=== PATIENT | male | born 1955 | race Caucasian/White ===

== ENCOUNTER 2017-08-17 12:33 | Emergency (ER) | payer OTHER, SELFPAY ==
[2017-08-17 12:40] VITALS: BP 146/76; PULSE 86; RESP 16; TEMP 37.4; O2SAT 98; BMI 28.0
--- NOTE | 2017-08-17 12:52 | ED.ABDPAIN ---
HPI - Abdominal Pain General Chief Complaint: Abdominal Pain Stated Complaint: CHRONIC PANCREATITIS Time Seen by Provider: 08/17/17 12:47 Source: patient and family Mode of arrival: ambulatory Limitations: no limitations History of Present Illness HPI narrative: 62M hx DM, gastroparesis, pancreatic enzyme dependent has abdominal pain, cramping, nausea, vomiting since 3 am. Has had these symptoms before, and are often assocaited with his mistiming/mismanagement of taking his pancreatic enzymes PO when eating. Patient admits to possibly having screwed up again. No fever, chills, SOB, urinary symptoms. Patient was unable to complete interview immediately due to urgent need to defecate. After patient returned, interview and exam completed. Related Data Home Medications Medication Instructions Recorded Confirmed clopidogrel 75 mg PO Q DAY #0 04/15/08 08/17/17 diclofenac sodium [Voltaren] 1 crys TOPICAL PRN PRN #0 03/14/17 08/17/17 cholecalciferol (vitamin D3) 3,000 unit PO TID 08/17/17 08/17/17 [Vitamin D3] insulin aspart U-100 [Novolog 5 unit SUB-Q DIRECTED 08/17/17 08/17/17 Flexpen U-100 Insulin] insulin glargine [Lantus Solostar 15 unit SUB-Q BID 08/17/17 08/17/17 U-100 Insulin] [id number]-ssendxek-nmtptew [Creon] 1 cap PO DIRECTED 08/17/17 08/17/17 whbliw-cawotwfz-jcwbsas [Creon] 1 cap PO DIRECTED 08/17/17 08/17/17 lisinopril 20 mg PO DAILY 08/17/17 08/17/17 metoprolol tartrate 50 mg PO BID 08/17/17 08/17/17 omeprazole 40 mg PO BID 08/17/17 08/17/17 oxycodone 5 mg PO PRN PRN 08/17/17 08/17/17 promethazine 25 mg PO Q6HP PRN 08/17/17 08/17/17 Previous Rx's Medication Instructions Recorded acetaminophen 0 mg PO Q4HP PRN #10 03/15/17 ondansetron [Zofran ODT] 4 mg SUBLINGUAL Q6HP PRN #10 odt 03/19/17 Allergies Allergy/AdvReac Type Severity Reaction Status Date / Time Iodine and Iodide Containing Allergy Unknown Verified 08/17/17 12:40 Produc [IODINE AND IODIDE CONTAINING PRODUC] Sulfa (Sulfonamide Allergy Unknown Verified 08/17/17 12:40 Antibiotics) [SULFA (SULFONAMIDE ANTIBIOTICS)] Review of Systems Constitutional Denies chills, Denies fever(s), Denies lethargy and Denies weakness ENT Ears, Nose, Mouth, and Throat: Denies change in voice, Denies neck pain and Denies sore throat Cardiovascular Denies chest pain, Denies irregular heart rhythm, Denies lightheadedness, Denies palpitations, Denies dyspnea, Denies dyspnea on exertion and Denies orthopnea Respiratory Denies cough, Denies dyspnea, Denies dyspnea on exertion and Denies wheezing Gastrointestinal Gastrointestinal: Reports abdominal pain, Reports tenesmus, Reports cramping, Reports nausea and Reports vomiting Genitourinary Denies hematuria, Denies flank pain, Denies urinary incontinence and Denies urinary urgency Musculoskeletal Denies neck pain Integumentary/Breasts Denies pruritus, Denies erythema, Denies rash and Denies wounds Neurologic Denies weakness Endocrine Denies palpitations Hematologic/Lymphatic Denies easy bruising Allergic/Immunologic Denies wheezing Exam Initial Vital Signs Initial Vital Signs: Vital Signs Temperature 99.4 F 08/17/17 12:40 Pulse Rate 86 08/17/17 12:40 Respiratory Rate 16 08/17/17 12:40 Blood Pressure 146/76 H 08/17/17 12:40 Pulse Oximetry 98 08/17/17 12:40 Const General: cooperative and well developed Nutritional Appearance: well nourished Orientation: alert, awake, oriented x3 and not confused Neck Neck: normal visual inspection, trachea midline, No lymphadenopathy, No midline deformity and No JVD Lymphatic: No lymphedema Resp Effort & Inspection: normal respiratory effort, able to speak in complete sentences, no respiratory distress and no use of accessory muscles Auscultation: clear to auscultation bilaterally, no rales, no rhonchi and no wheezes Cardio Rate: regular rate Rhythm: regular rhythm Heart Sounds: no click, no gallops, no murmurs and no rubs Pulses: normal peripheral pulses GI Inspection: distended Palpation: soft, No guarding, No pulsatile mass and tender (Generalized) Skin General: no rashes or lesions noted, No jaundice and No petechiae Neuro General: alert, oriented x3, gait normal and no focal motor deficits Speech: speech normal Extrem General: full ROM, no clubbing, cyanosis or edema, no pedal edema and no calf tenderness Course Orders Ordered: ED Orders 08/17/17 12:49 Complete Blood Count AUTO DIFF Stat Comprehensive Metabolic Panel Stat Lipase Stat Discontinued Medications Sodium Chloride (Normal Saline 0.9%) 1,000 mls @ 1,000 mls/hr IV BOLUS ONE Stop: 08/17/17 13:50 Last Admin: 08/17/17 13:01 Dose: 1,000 mls/hr Metoclopramide HCl (Reglan) 10 mg IV NOW ONE Stop: 08/17/17 12:52 Last Admin: 08/17/17 13:01 Dose: 10 mg Morphine Sulfate (Morphine) 4 mg IV NOW ONE Stop: 08/17/17 12:52 Last Admin: 08/17/17 13:01 Dose: 4 mg Vital Signs - 8 hr 08/17/17 12:40 Temperature 99.4 F Pulse Rate 86 Respiratory Rate 16 Blood Pressure 146/76 H Pulse Oximetry 98 MDM - Abdominal Pain Differential Diagnosis Differential diagnosis: Likely abdominal pain and pancreatitis Lab Data Result diagrams: 08/17/17 12:49 08/17/17 12:49 Lab Results 08/17/17 08/17/17 Range/Units 12:49 12:49 WBC 14.7 H (4.5-11.0) X10^3/uL RBC 5.28 (4.5-5.9) X10^6/uL Hgb 15.6 (13.5-17.5) g/dL Hct 46.2 (41-53) % MCV 87.5 (80-100) fL MCH 29.6 (26-34) PG MCHC 33.8 (30-36) % RDW 13.5 (11.6-14.8) % Plt Count 302 (150-400) X10^3/uL Neut % (Auto) 83.0 H (50-75) % Lymph % (Auto) 7.6 L (25-40) % [place] % (Auto) 8.1 (3-14) % Eos % (Auto) 0.8 L (2-4) % Baso % (Auto) 0.5 (0-2) % Neut # (Auto) 72102 H (4634-2156) /uL Sodium 144 (137-145) mmol/L Potassium 5.4 H (3.4-5.1) mmol/L Chloride 104.0 (98-107) mmol/L Carbon Dioxide 22.0 (22-32) mmol/L BUN 17.0 (9-20) mg/dL Creatinine 0.70 (0.66-1.25) mg/dL Estimated GFR > 60.0 (>60) mL/min BUN/Creatinine Ratio 24.3 H (6-22) Glucose 203 H (80-110) mg/dL Calcium 9.8 (8.4-10.2) mg/dL Total Bilirubin 0.8 (0.2-1.3) mg/dL AST 49 (17-59) IU/L ALT 36 (21-72) IU/L Alkaline Phosphatase 86 (38-126) U/L Total Protein 7.9 (6.3-8.2) g/dL Albumin 4.9 (3.5-5.0) g/dL Globulin 3.0 (1.7-4.1) g/dL Albumin/Globulin Ratio 1.6 (1.0-2.8) Lipase 76 (23-300) U/L MDM Narrative Medical decision making narrative: Negative for acute pancreatitis Patient feels much better after reglan and IV fluids. Patient has follow up with GI specialist within 2 weeks. Stable for discharge and outpatient follow up. Discharge Plan Departure Patient Disposition: Home, Self-Care Clinical Impression: Abdominal pain Instructions: DI for Abdominal Pain-Adult Activity Restrictions/Additional Instructions: Please resume your normal medications. Maintain adequate hydration. Please follow up with primary care provider. Prescriptions: No Action clopidogrel 75 mg Tablet 75 mg PO Q DAY Qty: 0 RF: 0 diclofenac sodium [Voltaren] 1 % gel 1 crys Topical PRN PRN (Reason: Analgesia) Qty: 0 RF: 0 acetaminophen 325 MG tablet PO Q4HP PRNQty: 10 RF: 0 ondansetron [Zofran ODT] 4 MG tablet,disintegrating 4 mg Sublingual Q6HP PRNQty: 10 RF: 0 lisinopril 20 mg Tablet 20 mg PO DAILY RF: 0 omeprazole 40 mg Capsule,Delayed Release(Dr/Ec) 40 mg PO BID RF: 0 metoprolol tartrate 50 mg Tablet 50 mg PO BID RF: 0 oxycodone 5 mg Tablet 5 mg PO PRN PRN (Reason: Pain, Severe) RF: 0 cholecalciferol (vitamin D3) [Vitamin D3] 1,000 unit Capsule 3,000 unit PO TID RF: 0 insulin aspart U-100 [Novolog Flexpen U-100 Insulin] 100 unit/mL Insulin Pen 5 unit Sub-Q DIRECTED RF: 0 insulin glargine [Lantus Solostar U-100 Insulin] 100 unit/mL (3 mL) Insulin Pen 15 unit SUB-Q BID RF: 0 jfazvu-brkiaypz-gpqcziu [Creon] 6,000-19,000 -30,000 unit Capsule,Delayed Release(Dr/Ec) 1 cap PO DIRECTED RF: 0 escqdl-xrgupsre-gjrnqqj [Creon] 36,000-114,000- 180,000 unit Capsule,Delayed Release(Dr/Ec) 1 cap PO DIRECTED RF: 0 promethazine 25 MG tablet 25 mg PO Q6HP PRN (Reason: Nausea) RF: 0 Referrals: Jacobo Ochoa MD [Primary Care Provider] -
[2017-08-17] MEDS: MORPHINE 4 MG/ML INJ IV (13:01)
[2017-08-17] MEDS: SODIUM CHLORIDE 0.9% 1,000 ML 1000 ML IV (13:01)
[2017-08-17] MEDS: METOCLOPRAMIDE 10 MG/2 ML INJ IV (13:01)
[2017-08-17 13:16] LABS: Add Manual Diff / Slide Review NO; Basophils Percent Auto 0.5 % (0-2); Eosinophils Percent Auto 0.8 % (2-4); Hematocrit 46.2 % (41-53); Hemoglobin 15.6 g/dL (13.5-17.5); Lymphocytes Percent Auto 7.6 % (25-40); Mean Corpuscular HGB Conc 33.8 % (30-36); Mean Corpuscular Hemoglobin 29.6 PG (26-34); Mean Corpuscular Volume 87.5 fL (80-100); Monocytes Percent Auto 8.1 % (3-14); Neutrophils Absolute Auto 12200 /uL (3000-5900); Platelet Count 302 X10^3/uL (150-400); Red Blood Cell Count 5.28 X10^6/uL (4.5-5.9); Red Cell Distribution Width 13.5 % (11.6-14.8); White Blood Cell Count 14.7 X10^3/uL (4.5-11.0)
[2017-08-17 13:21] LABS: Alanine Aminotransferase 36 IU/L (21-72); Albumin 4.9 g/dL (3.5-5.0); Albumin Globulin Ratio 1.6 (1.0-2.8); Alkaline Phosphatase 86 U/L (38-126); Aspartate Aminotransferase 49 IU/L (17-59); BUN Creatinine Ratio 24.3 (6-22); Bilirubin Total 0.8 mg/dL (0.2-1.3); Calcium 9.8 mg/dL (8.4-10.2); Estimated Glomerular Filt Rate > 60.0 mL/min (>60); Glucose 203 mg/dL (80-110); Lipase 76 U/L (23-300); Sodium 144 mmol/L (137-145); Total Protein 7.9 g/dL (6.3-8.2)
[2017-08-17 13:27] LABS: HEMOLYSIS 87 (0-50); Potassium 5.4 mmol/L (3.4-5.1)
[2017-08-17 14:22] VITALS: BP 119/65; PULSE 77; RESP 18; O2SAT 98
== END 2017-08-17 14:23 | disposition home or self-care (01) ==
LOC: ED 14:02
PROVIDERS: Emergency Provider Student in an Organized Health Care Education/Training Program; Family Provider Emergency Medicine Emergency Medical Services; PCP Emergency Medicine Emergency Medical Services
DX: R10.9 Unspecified abdominal pain (principal)
CPT/HCPCS: 36591; 80053; 83690; 85025; 96361; 96374; 96375; 99282; 99284; J2270; J2765

== ENCOUNTER 2017-09-25 12:15 | Emergency (ER) | payer OTHER, SELFPAY ==
[2017-09-25] VITALS (8 sets, daily range): BP systolic 99–164; BP diastolic 49–80; PULSE 67–95; RESP 8–24; TEMP 36.7; O2SAT 95–100
[2017-09-25] MEDS: ONDANSETRON 4 MG/2 ML INJ IV ×2 (12:51→13:21)
[2017-09-25 12:52] LABS: Add Manual Diff / Slide Review NO; Basophils Percent Auto 0.7 % (0-2); Eosinophils Percent Auto 1.8 % (2-4); Hematocrit 54.6 % (41-53); Hemoglobin 18.1 g/dL (13.5-17.5); Lymphocytes Percent Auto 13.6 % (25-40); Mean Corpuscular HGB Conc 33.2 % (30-36); Mean Corpuscular Hemoglobin 29.6 PG (26-34); Mean Corpuscular Volume 89.3 fL (80-100); Neutrophils Absolute Auto 11000 /uL (3000-5900); Neutrophils Percent Auto 76.9 % (50-75); Platelet Count 338 X10^3/uL (150-400); Red Blood Cell Count 6.11 X10^6/uL (4.5-5.9); Red Cell Distribution Width 13.3 % (11.6-14.8); White Blood Cell Count 14.3 X10^3/uL (4.5-11.0)
[2017-09-25 12:58] LABS: Alanine Aminotransferase 33 IU/L (21-72); Albumin 5.5 g/dL (3.5-5.0); Albumin Globulin Ratio 1.5 (1.0-2.8); Alkaline Phosphatase 118 U/L (38-126); Aspartate Aminotransferase 28 IU/L (17-59); BUN Creatinine Ratio 16.7 (6-22); Bilirubin Total 0.7 mg/dL (0.2-1.3); Blood Urea Nitrogen 15 mg/dL (9-20); Calcium 10.5 mg/dL (8.4-10.2); Carbon Dioxide 19 mmol/L (22-32); Chloride 106 mmol/L (98-107); Estimated Glomerular Filt Rate > 60.0 mL/min (>60); Globulin 3.6 g/dL (1.7-4.1); Glucose 144 mg/dL (80-110); HEMOLYSIS 22 (0-50); Lipase 443 U/L (23-300); Potassium 4.3 mmol/L (3.4-5.1); Sodium 143 mmol/L (137-145); Total Protein 9.1 g/dL (6.3-8.2)
[2017-09-25] MEDS: SODIUM CHLORIDE 0.9% 1,000 ML 1000 ML IV ×2 (13:19→14:48)
[2017-09-25] MEDS: HYDROMORPHONE 2 MG INJ 1 MG IV (13:20)
[2017-09-25] MEDS: methylPREDNISolone 125 MG/2 ML VIAL IV (13:21)
[2017-09-25] MEDS: diphenhydrAMINE 50 MG/ML VIAL 25 MG IV (13:21)
--- NOTE | 2017-09-25 13:22 | ED.ABDPAIN ---
HPI - Abdominal Pain General Chief Complaint: Abdominal Pain Stated Complaint: 'MY PANCREAS' Time Seen by Provider: 09/25/17 13:02 Source: patient Mode of arrival: ambulatory Limitations: no limitations History of Present Illness HPI narrative: Patient is a 62-year-old male who presents with abdominal pain. He has a history of chronic pancreatitis. He says this started last evening he has had multiple episodes of vomiting and diarrhea. He was seen here at the end of July for the same thing. He is supposed to take up pancreatic enzymes however he said last night he messed up the dosage her the number of pills and this is what happens every time he does this. He has not had any fever. Related Data Home Medications Medication Instructions Recorded Confirmed clopidogrel 75 mg PO Q DAY #0 04/15/08 09/25/17 diclofenac sodium [Voltaren] 1 crys TOPICAL PRN PRN #0 03/14/17 09/25/17 insulin aspart U-100 [Novolog 5 unit SUB-Q DIRECTED 08/17/17 09/25/17 Flexpen U-100 Insulin] insulin glargine [Lantus Solostar 15 unit SUB-Q BID 08/17/17 09/25/17 U-100 Insulin] [id number]-ipvlesge-lrczjho [Creon] 1 cap PO DIRECTED 08/17/17 09/25/17 rfmbof-mnfedbzd-kjwtzzb [Creon] 1 cap PO DIRECTED 08/17/17 09/25/17 lisinopril 20 mg PO DAILY 08/17/17 09/25/17 metoprolol tartrate 50 mg PO BID 08/17/17 09/25/17 omeprazole 40 mg PO BID 08/17/17 09/25/17 oxycodone 5 mg PO PRN PRN 08/17/17 09/25/17 promethazine 25 mg PO Q6HP PRN 08/17/17 09/25/17 acetaminophen 325 mg PO Q4HP PRN 09/25/17 09/25/17 cholecalciferol (vitamin D3) 1,000 unit PO TID 09/25/17 09/25/17 [Vitamin D3] Previous Rx's Medication Instructions Recorded ondansetron [Zofran ODT] 4 mg SUBLINGUAL Q6HP PRN #10 odt 03/19/17 promethazine [Phenergan] 25 mg ID Q6H PRN #10 each 09/25/17 Allergies Allergy/AdvReac Type Severity Reaction Status Date / Time Iodine and Iodide Containing Allergy Unknown Verified 08/17/17 12:40 Produc [IODINE AND IODIDE CONTAINING PRODUC] Sulfa (Sulfonamide Allergy Unknown Verified 08/17/17 12:40 Antibiotics) [SULFA (SULFONAMIDE ANTIBIOTICS)] Review of Systems Review of Systems GENERAL: Denies chills, fatigue, malaise, fever, sweats, travel HEENT: Denies sinus pain, ear pain, sore throat, difficulty swallowing, neck pain RESPIRATORY: Denies dyspnea, cough, wheezing, hemoptysis, sputum. CARDIOVASCULAR: Denies chest pain, palpitations, orthopnea, edema GASTROINTESTINAL: See HPI : Denies dysuria, frequency, incontinence, hematuria, urinary retention, flank pain. MUSCULOSKELETAL: Denies weakness, joint pain, or bony pain SKIN: No rash, no erythema, no pruritus NEUROLOGIC: Denies weakness, dizziness, headache, numbness, change in speech, confusion PSYCHIATRIC: No concerning psychosocial issues. 12 point review of systems is negative except for those stated above and HPI PFSH Social History Smoking Status: Former smoker Exam Initial Vital Signs Initial Vital Signs: Vital Signs Pulse Rate 91 H 09/25/17 12:20 Respiratory Rate 20 09/25/17 12:20 Blood Pressure 146/79 H 09/25/17 12:20 Pulse Oximetry 100 09/25/17 12:20 GENERAL: Appears in pain no active vomiting HEENT: Head atraumatic,EOMI, pupils reactive CARDIOVASCULAR: Regular rate and rhythm without murmurs, rubs or gallops. RESPIRATORY: Breath sounds equal bilaterally, no wheezes rales or rhonchi. ABDOMEN: Soft, diffuse tenderness without guarding or rebound : No CVA tenderness EXTREMITIES: Normal range of motion, no clubbing or edema. Neurovascularly intact NEUROLOGICAL: Alert and oriented x4.Normal gait and speech. Cranial nerves II through XII grossly intact. SKIN: Warm, dry, no laceration, no petechiae, no rashes or lesions. Course Orders Ordered: ED Orders 09/25/17 12:40 Complete Blood Count AUTO DIFF Stat Comprehensive Metabolic Panel Stat Lipase Stat 09/25/17 13:37 CT abdomen pelvis w con Stat Discontinued Medications Diphenhydramine HCl (Benadryl) 25 mg IV NOW ONE Stop: 09/25/17 13:17 Last Admin: 09/25/17 13:21 Dose: 25 mg Hydromorphone HCl (Dilaudid) 1 mg IV NOW ONE Stop: 09/25/17 13:04 Last Admin: 09/25/17 13:20 Dose: 1 mg Sodium Chloride (Normal Saline 0.9%) 1,000 mls @ 1,000 mls/hr IV BOLUS ONE Stop: 09/25/17 14:02 Last Infusion: 09/25/17 14:19 Dose: 0 mls/hr Admin: 09/25/17 13:19 Dose: 1,000 mls/hr Sodium Chloride (Normal Saline 0.9%) 1,000 mls @ 1,000 mls/hr IV BOLUS PRN PRN Reason: Fluid replacement Last Admin: 09/25/17 14:48 Dose: 1,000 mls/hr Promethazine HCl 12.5 mg/ (Sodium Chloride) 50.5 mls @ 202 mls/hr IV NOW ONE Stop: 09/25/17 14:41 Last Admin: 09/25/17 14:54 Dose: 202 mls/hr Methylprednisolone (Solu-Medrol 125 Mg Vial) 125 mg IV NOW ONE Stop: 09/25/17 13:19 Last Admin: 09/25/17 13:21 Dose: 125 mg Ondansetron HCl (Zofran) 4 mg IV NOW ONE Stop: 09/25/17 12:41 Last Admin: 09/25/17 12:51 Dose: 4 mg Ondansetron HCl (Zofran) 4 mg IV NOW ONE Stop: 09/25/17 13:04 Last Admin: 09/25/17 13:21 Dose: 4 mg Vital Signs - 8 hr 09/25/17 12:20 09/25/17 12:57 09/25/17 13:57 Temperature Pulse Rate 91 H 94 H 95 H Respiratory Rate 20 14 17 Blood Pressure 146/79 H Blood Pressure [Right Arm] 132/80 H 130/72 H Pulse Oximetry 100 99 95 09/25/17 14:35 09/25/17 15:09 09/25/17 15:30 Temperature Pulse Rate 94 H 93 H 85 Respiratory Rate 23 8 L 21 Blood Pressure Blood Pressure [Right Arm] 99/74 107/54 L 102/49 L Pulse Oximetry 100 100 100 09/25/17 16:06 09/25/17 16:25 Temperature 98.1 F Pulse Rate 83 67 Respiratory Rate 24 13 Blood Pressure 164/69 H Blood Pressure [Right Arm] 104/69 Pulse Oximetry 99 98 MDM - Abdominal Pain Lab Data Result diagrams: 09/25/17 12:40 09/25/17 12:40 Lab Results 09/25/17 09/25/17 Range/Units 12:40 12:40 WBC 14.3 H (4.5-11.0) X10^3/uL RBC 6.11 H (4.5-5.9) X10^6/uL Hgb 18.1 H (13.5-17.5) g/dL Hct 54.6 H (41-53) % MCV 89.3 (80-100) fL MCH 29.6 (26-34) PG MCHC 33.2 (30-36) % RDW 13.3 (11.6-14.8) % Plt Count 338 (150-400) X10^3/uL Neut % (Auto) 76.9 H (50-75) % Lymph % (Auto) 13.6 L (25-40) % [place] % (Auto) 7.0 (3-14) % Eos % (Auto) 1.8 L (2-4) % Baso % (Auto) 0.7 (0-2) % Neut # (Auto) 82346 H (4472-9253) /uL Sodium 143 (137-145) mmol/L Potassium 4.3 (3.4-5.1) mmol/L Chloride 106 (98-107) mmol/L Carbon Dioxide 19 L (22-32) mmol/L BUN 15 (9-20) mg/dL Creatinine 0.90 (0.66-1.25) mg/dL Estimated GFR > 60.0 (>60) mL/min BUN/Creatinine Ratio 16.7 (6-22) Glucose 144 H (80-110) mg/dL Calcium 10.5 H (8.4-10.2) mg/dL Total Bilirubin 0.7 (0.2-1.3) mg/dL AST 28 (17-59) IU/L ALT 33 (21-72) IU/L Alkaline Phosphatase 118 (38-126) U/L Total Protein 9.1 H (6.3-8.2) g/dL Albumin 5.5 H (3.5-5.0) g/dL Globulin 3.6 (1.7-4.1) g/dL Albumin/Globulin Ratio 1.5 (1.0-2.8) Lipase 443 H (23-300) U/L Point of care testing: Urine Dip Bedside Urine Glucose Negative Bedside Urine Bilirubin - Negative Bedside Urine Ketone - Negative Urine Specific [place] 1.010 Bedside Urine Occult Blood - Negative Bedside Urine pH 6.0 Bedside Urine Protein - Negative Bedside Urine Urobilinogen - Negative Bedside Urine Nitrite - Negative Bedside Urine Leukocytes - Negative Esterase Imaging Data CT scan - abdomen: Radiologist's impression: PROCEDURE: CT ABDOMEN PELVIS W CON INDICATIONS: pain TECHNIQUE: After the administration of oral and intravenous contrast, 5 mm thick sections acquired from the diaphragms to the symphysis. 5 mm thick coronal and sagittal reformats were performed. For radiation dose reduction, the following was used: automated exposure control, adjustment of mA and/or kV according to patient size. COMPARISON: [facility], CT, ABDOMEN/PELVIS WITH CONTRAST, 05/26/2017, 17:17. FINDINGS: Image quality: Excellent. ABDOMEN: Lung bases: Lung bases are clear. Heart size is normal. Solid organs: There is diffuse heterogeneous enhancement of the liver without a discrete mass lesion. Gallbladder appears within normal limits without calcified gallstones. Biliary system is non-dilated. Pancreas enhances normally. Spleen is normal in size and enhancement. No adrenal nodules. Kidneys are normal in size and enhancement, without hydronephrosis. Peritoneum and bowel: There is diffuse mild fluid distention involving the distal small bowel and colon. The terminal ileum is nondistended with suggestion of increased segmental enhancement. There is also a nondistended segment more proximally in the ileum with mild wall enhancement. Findings are suggestive of a mild infectious or inflammatory gastroenteritis. No evidence of bowel obstruction. The appendix is normal in appearance. There is colonic diverticulosis without acute diverticulitis. No free fluid or air. Nodes and vessels: No retroperitoneal or mesenteric adenopathy. Aorta and inferior vena cava are normal in caliber. Miscellaneous: No ventral hernias. PELVIS: Genitourinary: Bladder wall thickness is normal. Miscellaneous: No inguinal hernias or adenopathy. Bones: No suspicious bony lesions. No vertebral body compression fractures. IMPRESSION: 1. Mild fluid distention of the distal small bowel and colon with short segment of mild small bowel wall thickening and enhancement. Findings likely represent an infectious or inflammatory gastroenteritis. No definite bowel obstruction. Dictated by: Sj Rankin M.D. on 09/25/2017 at 14:18 MDM Narrative Medical decision making narrative: Tolerating oral fluids on feeling much better. Lipase is slightly elevated more so than was previously but not at to a concerning level. I discussed all findings with the patient. Education has been performed regarding treatment plan, diagnosis, warning signs and symptoms and all concerns have been addressed. Verbally agree with and understood all of the above. Discharge Plan Departure Patient Disposition: Home, Self-Care Clinical Impression: Gastroenteritis Discharge Date/Time: 09/25/17 16:26 Interventions: ED Discharge Assessment Last Done: 09/25/17 16:25 Instructions: DI for Viral Gastroenteritis -- Adult Activity Restrictions/Additional Instructions: 1) You have been diagnosed with gastroenteritis 2) What to do: Drink frequent but small amounts of fluids. I recommend Gatorade or a Gatorade-like product, as it has small amounts of sugar and salts that improve fluid retention. 3) Take medications as directed-prescription has been sent electronically to [facility] in [place] -Phenergan every 6 hr if needed for nausea or vomiting this includes orally and suppository 4) Follow up with your primary care provider in 2-3 days 5) Return to ER if you should have any new or worsening symptoms such as, unable to hold down fluids despite use of anti-nausea medications and the small volume oral rehydration strategy. Prescriptions: New promethazine [Phenergan] 25 mg suppository 25 mg ID Q6H PRN (Reason: nausea and vomiting) Qty: 10 RF: 0 No Action clopidogrel 75 mg Tablet 75 mg PO Q DAY Qty: 0 RF: 0 diclofenac sodium [Voltaren] 1 % gel 1 crys Topical PRN PRN (Reason: Analgesia) Qty: 0 RF: 0 ondansetron [Zofran ODT] 4 MG tablet,disintegrating 4 mg Sublingual Q6HP PRNQty: 10 RF: 0 lisinopril 20 mg Tablet 20 mg PO DAILY RF: 0 omeprazole 40 mg Capsule,Delayed Release(Dr/Ec) 40 mg PO BID RF: 0 metoprolol tartrate 50 mg Tablet 50 mg PO BID RF: 0 oxycodone 5 mg Tablet 5 mg PO PRN PRN (Reason: Pain, Severe) RF: 0 insulin aspart U-100 [Novolog Flexpen U-100 Insulin] 100 unit/mL Insulin Pen 5 unit Sub-Q DIRECTED RF: 0 insulin glargine [Lantus Solostar U-100 Insulin] 100 unit/mL (3 mL) Insulin Pen 15 unit SUB-Q BID RF: 0 khwudf-dkaxtrgc-wqqocdr [Creon] 6,000-19,000 -30,000 unit Capsule,Delayed Release(Dr/Ec) 1 cap PO DIRECTED RF: 0 syrsbj-kckudfxw-pqmvbry [Creon] 36,000-114,000- 180,000 unit Capsule,Delayed Release(Dr/Ec) 1 cap PO DIRECTED RF: 0 promethazine 25 MG tablet 25 mg PO Q6HP PRN (Reason: Nausea) RF: 0 cholecalciferol (vitamin D3) [Vitamin D3] 1,000 unit Capsule 1,000 unit PO TID RF: 0 acetaminophen 325 MG tablet 325 mg PO Q4HP PRN (Reason: Pain, Mild) RF: 0
--- NOTE | 2017-09-25 13:37 | DI.CT.S_ITS ---
PROCEDURE: CT ABDOMEN PELVIS W CON INDICATIONS: pain TECHNIQUE: After the administration of oral and intravenous contrast, 5 mm thick sections acquired from the diaphragms to the symphysis. 5 mm thick coronal and sagittal reformats were performed. For radiation dose reduction, the following was used: automated exposure control, adjustment of mA and/or kV according to patient size. COMPARISON: [facility], CT, ABDOMEN/PELVIS WITH CONTRAST, 05/26/2017, 17:17. FINDINGS: Image quality: Excellent. ABDOMEN: Lung bases: Lung bases are clear. Heart size is normal. Solid organs: There is diffuse heterogeneous enhancement of the liver without a discrete mass lesion. Gallbladder appears within normal limits without calcified gallstones. Biliary system is non-dilated. Pancreas enhances normally. Spleen is normal in size and enhancement. No adrenal nodules. Kidneys are normal in size and enhancement, without hydronephrosis. Peritoneum and bowel: There is diffuse mild fluid distention involving the distal small bowel and colon. The terminal ileum is nondistended with suggestion of increased segmental enhancement. There is also a nondistended segment more proximally in the ileum with mild wall enhancement. Findings are suggestive of a mild infectious or inflammatory gastroenteritis. No evidence of bowel obstruction. The appendix is normal in appearance. There is colonic diverticulosis without acute diverticulitis. No free fluid or air. Nodes and vessels: No retroperitoneal or mesenteric adenopathy. Aorta and inferior vena cava are normal in caliber. Miscellaneous: No ventral hernias. PELVIS: Genitourinary: Bladder wall thickness is normal. Miscellaneous: No inguinal hernias or adenopathy. Bones: No suspicious bony lesions. No vertebral body compression fractures. IMPRESSION: 1. Mild fluid distention of the distal small bowel and colon with short segment of mild small bowel wall thickening and enhancement. Findings likely represent an infectious or inflammatory gastroenteritis. No definite bowel obstruction. Dictated by: Sj Rankin M.D. on 09/25/2017 at 14:18 Approved by: Sj Rankin M.D. on 09/25/2017 at 14:22
[2017-09-25] MEDS: PROMETHAZINE 12.5 MG in SODIUM CHLORIDE 0.9% 50 ML 202 ML IV (14:54)
--- NOTE | 2017-09-25 15:03 | PC.NURSE ---
to bathroom, several times, states bm. iv cont. seems sl more comfortable after promethazine. eyes closed. seems comfortable
== END 2017-09-25 16:26 | disposition home or self-care (01) ==
PROVIDERS: Emergency Provider Emergency Medicine; Family Provider Emergency Medicine Emergency Medical Services; PCP Emergency Medicine Emergency Medical Services
DX: K52.9 Noninfective gastroenteritis and colitis, unspecified (principal)
CPT/HCPCS: 36591; 74177; 80053; 81003; 83690; 85025; 96361; 96374; 96375; 96376; 99285; J1170; J1200; J2405; J2550; J2930; Q9967

== ENCOUNTER 2017-10-12 12:36 | Emergency (ER) | payer OTHER, SELFPAY ==
[2017-10-12 12:53] VITALS: BP 116/68; PULSE 74; RESP 17; O2SAT 99
[2017-10-12 13:01] VITALS: PULSE 74; RESP 17; O2SAT 99
--- NOTE | 2017-10-12 14:04 | ED.ABDPAIN ---
HPI - Abdominal Pain <Digna Warren PA-C - Last Filed: 10/12/17 22:11> General Chief Complaint: Abdominal Pain Stated Complaint: PANCREAS PROBLEMS Time Seen by Provider: 10/12/17 12:58 Source: patient Mode of arrival: ambulatory Limitations: no limitations History of Present Illness HPI narrative: This 62-year-old male with history of pancreatitis and insufficiency comes in today with what he says is an exacerbation. He states that he tries to be careful with his meals, but his regimen and pancreatic enzymes were changed in the last couple of months and thinks this is the problem. He states that he woke up at 3:00 a.m. with nausea and vomiting, took a Phenergan suppository and was able to sleep for a while. Since 9:00 a.m., he vomited x3, then bilious vomiting twice. Sublingual Zofran did not help at home. He states that he has had watery diarrhea every 15 min since 11 o'clock, states basically little to no stool. He states this is typical of pancreatic insufficiency exacerbation for him. He has pain mainly in the central abdomen. He denies new fever. He denies any urinary symptoms or hematuria. He has not noted blood in the stools. He denies any recent travel or known exposures. He denies any chest pain, dyspnea, or other new complaints on systems review Related Data Home Medications Medication Instructions Recorded Confirmed clopidogrel 75 mg PO Q DAY #0 04/15/08 09/25/17 diclofenac sodium [Voltaren] 1 crys TOPICAL PRN PRN #0 03/14/17 09/25/17 insulin aspart U-100 [Novolog 5 unit SUB-Q DIRECTED 08/17/17 09/25/17 Flexpen U-100 Insulin] insulin glargine [Lantus Solostar 15 unit SUB-Q BID 08/17/17 09/25/17 U-100 Insulin] [id number] [Creon] 1 cap PO DIRECTED 08/17/17 09/25/17 [id number]-vacfehm [Creon] 1 cap PO DIRECTED 08/17/17 09/25/17 lisinopril 20 mg PO DAILY 08/17/17 09/25/17 metoprolol tartrate 50 mg PO BID 08/17/17 09/25/17 omeprazole 40 mg PO BID 08/17/17 09/25/17 oxycodone 5 mg PO PRN PRN 08/17/17 09/25/17 promethazine 25 mg PO Q6HP PRN 08/17/17 09/25/17 acetaminophen 325 mg PO Q4HP PRN 09/25/17 09/25/17 cholecalciferol (vitamin D3) 1,000 unit PO TID 09/25/17 09/25/17 [Vitamin D3] Previous Rx's Medication Instructions Recorded ondansetron [Zofran ODT] 4 mg SUBLINGUAL Q6HP PRN #10 odt 03/19/17 promethazine [Phenergan] 25 mg VT Q6H PRN #10 each 09/25/17 Allergies Allergy/AdvReac Type Severity Reaction Status Date / Time Iodine and Iodide Containing Allergy Unknown Verified 10/12/17 13:01 Produc [IODINE AND IODIDE CONTAINING PRODUC] Sulfa (Sulfonamide Allergy Unknown Verified 10/12/17 13:01 Antibiotics) [SULFA (SULFONAMIDE ANTIBIOTICS)] Review of Systems <Digna Warren PA-C - Last Filed: 10/12/17 22:11> Review of Systems All systems reviewed & are unremarkable except as noted in HPI and below Exam <Digna Warren PA-C - Last Filed: 10/12/17 22:11> Narrative Exam Narrative: GENERAL APPEARANCE: Patient appears somewhat uncomfortable but in NAD HEENT: PERRL, EOMI, conjunctiva pink, no scleral icterus NECK: Supple, no masses LUNGS: Clear to auscultation bilaterally. HEART: Rate and rhythm regular, normal S1 and S2, no S3 or S4. ABDOMEN: Soft, nondistended, bowel sounds present x 4 quadrants, no masses palpable, no hepatosplenomegaly. Periumbilical tenderness without guarding or rebound EXTREMITIES: No edema, no cyanosis DERMATOLOGIC: No jaundice or exanthem NEUROLOGIC: Alert and oriented with normal speech and coordination Initial Vital Signs Initial Vital Signs: Vital Signs Pulse Rate 74 10/12/17 12:53 Respiratory Rate 17 10/12/17 12:53 Blood Pressure 116/68 10/12/17 12:53 Pulse Oximetry 99 10/12/17 12:53 <Ridge Nuñez MD - Last Filed: 10/13/17 08:57> Initial Vital Signs Initial Vital Signs: Vital Signs Pulse Rate 74 10/12/17 12:53 Respiratory Rate 17 10/12/17 12:53 Blood Pressure 116/68 10/12/17 12:53 Pulse Oximetry 99 10/12/17 12:53 Course <Digna Warren PA-C - Last Filed: 10/12/17 22:11> Additional Information: I reviewed patient's lab findings and radiology reports with him. He is actually feeling significantly improved both in terms of pain as well as vomiting and diarrhea. He is able to keep down water without difficulty and had a few saltines. He states that he has pain medications and Phenergan suppositories at home and he feels like he can do bowel rest at home. He is agreeable with returning right away if he is feeling acutely worse again. Reviewed history and findings with Dr. Nuñez who is agreeable with plan Orders Ordered: Discontinued Medications Hydromorphone HCl (Dilaudid) 1 mg IV NOW ONE Stop: 10/12/17 14:15 Last Admin: 10/12/17 14:25 Dose: 1 mg Sodium Chloride (Normal Saline 0.9%) 1,000 mls @ 1,000 mls/hr IV BOLUS ONE Stop: 10/12/17 15:13 Last Infusion: 10/12/17 16:00 Dose: 0 mls/hr Admin: 10/12/17 14:24 Dose: 1,000 mls/hr Loperamide HCl (Imodium) 4 mg PO NOW ONE Stop: 10/12/17 14:31 Last Admin: 10/12/17 14:33 Dose: 4 mg Ondansetron HCl (Zofran) 4 mg IV NOW ONE Stop: 10/12/17 14:30 Last Admin: 10/12/17 14:33 Dose: 4 mg Prochlorperazine (Compazine) 5 mg IV NOW ONE Stop: 10/12/17 15:12 Last Admin: 10/12/17 15:19 Dose: 5 mg Vital Signs - 8 hr 10/12/17 14:30 10/12/17 16:50 10/12/17 18:52 Pulse Rate 57 L 80 82 Respiratory Rate 18 14 16 Blood Pressure [Left Arm] 118/72 113/67 143/82 H Pulse Oximetry 100 96 97 <Ridge Nuñez MD - Last Filed: 10/13/17 08:57> Orders Ordered: Discontinued Medications Hydromorphone HCl (Dilaudid) 1 mg IV NOW ONE Stop: 10/12/17 14:15 Last Admin: 10/12/17 14:25 Dose: 1 mg Sodium Chloride (Normal Saline 0.9%) 1,000 mls @ 1,000 mls/hr IV BOLUS ONE Stop: 10/12/17 15:13 Last Infusion: 10/12/17 16:00 Dose: 0 mls/hr Admin: 10/12/17 14:24 Dose: 1,000 mls/hr Loperamide HCl (Imodium) 4 mg PO NOW ONE Stop: 10/12/17 14:31 Last Admin: 10/12/17 14:33 Dose: 4 mg Ondansetron HCl (Zofran) 4 mg IV NOW ONE Stop: 10/12/17 14:30 Last Admin: 10/12/17 14:33 Dose: 4 mg Prochlorperazine (Compazine) 5 mg IV NOW ONE Stop: 10/12/17 15:12 Last Admin: 10/12/17 15:19 Dose: 5 mg Vital Signs - 8 hr 10/12/17 14:30 10/12/17 16:50 10/12/17 18:52 Pulse Rate 57 L 80 82 Respiratory Rate 18 14 16 Blood Pressure [Left Arm] 118/72 113/67 143/82 H Pulse Oximetry 100 96 97 MDM - Abdominal Pain <Digna Warren PA-C - Last Filed: 10/12/17 22:11> Lab Data Attestation: I reviewed the patient's lab results. Result diagrams: 10/12/17 13:10 10/12/17 13:10 Lab Results 10/12/17 10/12/17 10/12/17 Range/Units 13:10 13:10 14:47 WBC 16.9 H (4.5-11.0) X10^3/uL RBC 5.46 (4.5-5.9) X10^6/uL Hgb 15.9 (13.5-17.5) g/dL Hct 48.5 (41-53) % MCV 88.9 (80-100) fL MCH 29.2 (26-34) PG MCHC 32.8 (30-36) % RDW 13.2 (11.6-14.8) % Plt Count 288 (150-400) X10^3/uL Neut % (Auto) 84.3 H (50-75) % Lymph % (Auto) 6.4 L (25-40) % [place] % (Auto) 8.4 (3-14) % Eos % (Auto) 0.7 L (2-4) % Baso % (Auto) 0.2 (0-2) % Neut # (Auto) 90475 H (2018-8935) /uL Sodium 144 (137-145) mmol/L Potassium 4.1 (3.4-5.1) mmol/L Chloride 105 (98-107) mmol/L Carbon Dioxide 27 (22-32) mmol/L BUN 18 (9-20) mg/dL Creatinine 0.80 (0.66-1.25) mg/dL Estimated GFR > 60.0 (>60) mL/min BUN/Creatinine Ratio 22.5 H (6-22) Glucose 92 (80-110) mg/dL Calcium 9.8 (8.4-10.2) mg/dL Total Bilirubin 0.6 (0.2-1.3) mg/dL AST 52 (17-59) IU/L ALT 33 (21-72) IU/L Alkaline Phosphatase 83 (38-126) U/L Total Protein 7.5 (6.3-8.2) g/dL Albumin 4.9 (3.5-5.0) g/dL Globulin 2.6 (1.7-4.1) g/dL Albumin/Globulin Ratio 1.9 (1.0-2.8) Lipase 1150 H (23-300) U/L Stool Aeromonas Cult Awaiting culture res (Not Detect) Stl C. cayetanensis PCR Not detected (Not Detect) Stool Rotavirus (PCR) Not detected (Not Detect) Stool Adenovirus (PCR) Not detected (Not Detect) Stool Astrovirus (PCR) Not detected (Not Detect) Stool Cryptosporidium PCR Not detected (Not Detect) Stl E.coli Shiga Tox PCR Not detected (Not Detect) St Sh/Enteroin Ecoli PCR Not detected (Not Detect) Stool E coli O157 PCR Not Reportable Stl Enterotoxigenic E PCR Not detected (Not Detect) Stool EPEC (PCR) Not detected (Not Detect) Stl E. histolytica PCR Not detected (Not Detect) Stool Giardia Lamblia PCR Not detected (Not Detect) Stool Sapovirus (PCR) Not detected Stl P. shigelloides PCR Not detected (Not Detect) St Y.enterocolitica PCR Not detected (Not Detect) Stool Vibrio (PCR) Not detected (Not Detect) Stl Vibrio cholerae PCR Not detected (Not Detect) Stl Enteroaggr Ecoli PCR Not detected (Not Detect) Stl Norovirus GI/GII PCR Not detected (Not Detect) Campylobacter (PCR) Not detected (Not Detect) C. difficile Tox (PCR) Not detected (Not Detect) Salmonella (PCR) Not detected (Not Detect) Imaging Data US - abdomen: Radiologist's impression: [address] [address] Ultrasound Report Signed Patient: Jann Diehl MR#: [id number] : 1955 Acct:[id number] Age/Sex: 62 / M Date of Service: 10/12/17 Loc: ED Accession Number: [id number] Procedure: US abdomen complete Ordering Provider: Digna Warren P.A-C PROCEDURE: US ABDOMEN COMPLETE INDICATIONS: h/o pancreatitis, pain TECHNIQUE: Real-time scanning was performed of the abdominal and retroperitoneal organs, with image documentation. COMPARISON: [facility], CT, CT ABDOMEN PELVIS W CON, 09/25/2017, 13:34. [facility], US, ABDOMEN COMPLETE, 03/14/2017, 12:04. FINDINGS: Liver: The liver is enlarged measuring 17.5 cm. No focal lesions are identified. Gallbladder: Gallbladder is unremarkable. Biliary ducts: Intrahepatic bile ducts are non-dilated. Extrahepatic bile duct caliber measures 6 mm. Normal is 6-7 mm or less in diameter, or 10 mm or less post-cholecystectomy. Pancreas: Visualized portions of the pancreas are sonographically normal. There is no peripancreatic fluid. Spleen: Spleen is normal in size and homogeneous in echotexture. Kidneys: Kidneys are normal in size and echotexture. Right kidney measures 12.1 cm long; left kidney measures 13.5 cm long. No hydronephrosis or nephrolithiasis. No solid masses. Aorta: Not well-seen. Iliacs: Proximal common iliac arteries are not well seen. IVC: Intrahepatic inferior vena cava is not well seen. Miscellaneous: No free abdominal fluid. IMPRESSION: 1. Mild hepatomegaly. 2. Visualized portions of the pancreas are unremarkable. No peripancreatic fluid. Dictated by: Pinky Rosario M.D. on 10/12/2017 at 17:58 Approved by: Pinky Rosario M.D. on 10/12/2017 at 18:00 <Ridge Nuñez MD - Last Filed: 10/13/17 08:57> Lab Data Lab Results 10/12/17 10/12/17 10/12/17 Range/Units 13:10 13:10 14:47 WBC 16.9 H (4.5-11.0) X10^3/uL RBC 5.46 (4.5-5.9) X10^6/uL Hgb 15.9 (13.5-17.5) g/dL Hct 48.5 (41-53) % MCV 88.9 (80-100) fL MCH 29.2 (26-34) PG MCHC 32.8 (30-36) % RDW 13.2 (11.6-14.8) % Plt Count 288 (150-400) X10^3/uL Neut % (Auto) 84.3 H (50-75) % Lymph % (Auto) 6.4 L (25-40) % [place] % (Auto) 8.4 (3-14) % Eos % (Auto) 0.7 L (2-4) % Baso % (Auto) 0.2 (0-2) % Neut # (Auto) 96870 H (2030-3508) /uL Sodium 144 (137-145) mmol/L Potassium 4.1 (3.4-5.1) mmol/L Chloride 105 (98-107) mmol/L Carbon Dioxide 27 (22-32) mmol/L BUN 18 (9-20) mg/dL Creatinine 0.80 (0.66-1.25) mg/dL Estimated GFR > 60.0 (>60) mL/min BUN/Creatinine Ratio 22.5 H (6-22) Glucose 92 (80-110) mg/dL Calcium 9.8 (8.4-10.2) mg/dL Total Bilirubin 0.6 (0.2-1.3) mg/dL AST 52 (17-59) IU/L ALT 33 (21-72) IU/L Alkaline Phosphatase 83 (38-126) U/L Total Protein 7.5 (6.3-8.2) g/dL Albumin 4.9 (3.5-5.0) g/dL Globulin 2.6 (1.7-4.1) g/dL Albumin/Globulin Ratio 1.9 (1.0-2.8) Lipase 1150 H (23-300) U/L Stool Aeromonas Cult Awaiting culture res (Not Detect) Stl C. cayetanensis PCR Not detected (Not Detect) Stool Rotavirus (PCR) Not detected (Not Detect) Stool Adenovirus (PCR) Not detected (Not Detect) Stool Astrovirus (PCR) Not detected (Not Detect) Stool Cryptosporidium PCR Not detected (Not Detect) Stl E.coli Shiga Tox PCR Not detected (Not Detect) St Sh/Enteroin Ecoli PCR Not detected (Not Detect) Stool E coli O157 PCR Not Reportable Stl Enterotoxigenic E PCR Not detected (Not Detect) Stool EPEC (PCR) Not detected (Not Detect) Stl E. histolytica PCR Not detected (Not Detect) Stool Giardia Lamblia PCR Not detected (Not Detect) Stool Sapovirus (PCR) Not detected Stl P. shigelloides PCR Not detected (Not Detect) St Y.enterocolitica PCR Not detected (Not Detect) Stool Vibrio (PCR) Not detected (Not Detect) Stl Vibrio cholerae PCR Not detected (Not Detect) Stl Enteroaggr Ecoli PCR Not detected (Not Detect) Stl Norovirus GI/GII PCR Not detected (Not Detect) Campylobacter (PCR) Not detected (Not Detect) C. difficile Tox (PCR) Not detected (Not Detect) Salmonella (PCR) Not detected (Not Detect) Discharge Plan Departure Patient Disposition: Home, Self-Care Clinical Impression: Nausea, vomiting and diarrhea, Pancreatitis Discharge Date/Time: 10/12/17 18:54 Interventions: ED Discharge Assessment Last Done: 10/12/17 18:53 Activity Restrictions/Additional Instructions: Please return as we talked about if you are feeling acutely worse again, in that case you may need hospital admission. Otherwise, please do your bowel rest at home as you have done before. Take your pain medicine and nausea medicine as needed. You can also use [id number] Imodium should you have recurrent diarrhea. Please see your PCP for follow-up 1st of next week Prescriptions: No Action clopidogrel 75 mg Tablet 75 mg PO Q DAY Qty: 0 RF: 0 diclofenac sodium [Voltaren] 1 % gel 1 crys Topical PRN PRN (Reason: Analgesia) Qty: 0 RF: 0 ondansetron [Zofran ODT] 4 MG tablet,disintegrating 4 mg Sublingual Q6HP PRNQty: 10 RF: 0 lisinopril 20 mg Tablet 20 mg PO DAILY RF: 0 omeprazole 40 mg Capsule,Delayed Release(Dr/Ec) 40 mg PO BID RF: 0 metoprolol tartrate 50 mg Tablet 50 mg PO BID RF: 0 oxycodone 5 mg Tablet 5 mg PO PRN PRN (Reason: Pain, Severe) RF: 0 insulin aspart U-100 [Novolog Flexpen U-100 Insulin] 100 unit/mL Insulin Pen 5 unit Sub-Q DIRECTED RF: 0 insulin glargine [Lantus Solostar U-100 Insulin] 100 unit/mL (3 mL) Insulin Pen 15 unit SUB-Q BID RF: 0 xbnkbz-gjftjadc-zbluiwf [Creon] 6,000-19,000 -30,000 unit Capsule,Delayed Release(Dr/Ec) 1 cap PO DIRECTED RF: 0 vequoe-auyfvcsp-aaorbze [Creon] 36,000-114,000- 180,000 unit Capsule,Delayed Release(Dr/Ec) 1 cap PO DIRECTED RF: 0 promethazine 25 MG tablet 25 mg PO Q6HP PRN (Reason: Nausea) RF: 0 cholecalciferol (vitamin D3) [Vitamin D3] 1,000 unit Capsule 1,000 unit PO TID RF: 0 acetaminophen 325 MG tablet 325 mg PO Q4HP PRN (Reason: Pain, Mild) RF: 0 promethazine [Phenergan] 25 mg suppository 25 mg VT Q6H PRN (Reason: nausea and vomiting) Qty: 10 RF: 0 Referrals: Jacobo Ochoa MD [Primary Care Provider] - <Ridge Nuñez MD - Last Filed: 10/13/17 08:57> Sign Out Provider Sign Out Attestation: The PA/APPLICATION DEFENSE MANAGER functioned independently for the care of this pt, I was available, but not asked to participate in care. I am unable to determine appropriateness of management without personally examining the pt.
[2017-10-12] MEDS: SODIUM CHLORIDE 0.9% 1,000 ML 1000 ML IV (14:24)
[2017-10-12] MEDS: HYDROMORPHONE 1 MG INJ IV (14:25)
[2017-10-12 14:30] VITALS: BP 118/72; PULSE 57; RESP 18; O2SAT 100
[2017-10-12] MEDS: ONDANSETRON 4 MG/2 ML INJ IV (14:33)
[2017-10-12] MEDS: LOPERAMIDE 2 MG CAPSULE 4 MG PO (14:33)
[2017-10-12 14:40] LABS: Add Manual Diff / Slide Review NO; Basophils Percent Auto 0.2 % (0-2); Eosinophils Percent Auto 0.7 % (2-4); Hematocrit 48.5 % (41-53); Hemoglobin 15.9 g/dL (13.5-17.5); Lymphocytes Percent Auto 6.4 % (25-40); Mean Corpuscular HGB Conc 32.8 % (30-36); Mean Corpuscular Hemoglobin 29.2 PG (26-34); Mean Corpuscular Volume 88.9 fL (80-100); Monocytes Percent Auto 8.4 % (3-14); Neutrophils Absolute Auto 14200 /uL (3000-5900); Neutrophils Percent Auto 84.3 % (50-75); Platelet Count 288 X10^3/uL (150-400); Red Blood Cell Count 5.46 X10^6/uL (4.5-5.9); Red Cell Distribution Width 13.2 % (11.6-14.8); White Blood Cell Count 16.9 X10^3/uL (4.5-11.0)
[2017-10-12 14:50] LABS: Alanine Aminotransferase 33 IU/L (21-72); Albumin 4.9 g/dL (3.5-5.0); Albumin Globulin Ratio 1.9 (1.0-2.8); Alkaline Phosphatase 83 U/L (38-126); Aspartate Aminotransferase 52 IU/L (17-59); BUN Creatinine Ratio 22.5 (6-22); Bilirubin Total 0.6 mg/dL (0.2-1.3); Blood Urea Nitrogen 18 mg/dL (9-20); Calcium 9.8 mg/dL (8.4-10.2); Carbon Dioxide 27 mmol/L (22-32); Estimated Glomerular Filt Rate > 60.0 mL/min (>60); Globulin 2.6 g/dL (1.7-4.1); Glucose 92 mg/dL (80-110); Lipase 1150 U/L (23-300); Potassium 4.1 mmol/L (3.4-5.1); Sodium 144 mmol/L (137-145); Total Protein 7.5 g/dL (6.3-8.2)
[2017-10-12 15:03] LABS: Chloride 105 mmol/L (98-107); HEMOLYSIS 27 (0-50)
[2017-10-12] MEDS: PROCHLORPERAZINE 10 MG/2 ML VIAL 5 MG IV (15:19)
--- NOTE | 2017-10-12 15:38 | DI.US.S_ITS ---
PROCEDURE: US ABDOMEN COMPLETE INDICATIONS: h/o pancreatitis, pain TECHNIQUE: Real-time scanning was performed of the abdominal and retroperitoneal organs, with image documentation. COMPARISON: [facility], CT, CT ABDOMEN PELVIS W CON, 09/25/2017, 13:34. [facility], US, ABDOMEN COMPLETE, 03/14/2017, 12:04. FINDINGS: Liver: The liver is enlarged measuring 17.5 cm. No focal lesions are identified. Gallbladder: Gallbladder is unremarkable. Biliary ducts: Intrahepatic bile ducts are non-dilated. Extrahepatic bile duct caliber measures 6 mm. Normal is 6-7 mm or less in diameter, or 10 mm or less post-cholecystectomy. Pancreas: Visualized portions of the pancreas are sonographically normal. There is no peripancreatic fluid. Spleen: Spleen is normal in size and homogeneous in echotexture. Kidneys: Kidneys are normal in size and echotexture. Right kidney measures 12.1 cm long; left kidney measures 13.5 cm long. No hydronephrosis or nephrolithiasis. No solid masses. Aorta: Not well-seen. Iliacs: Proximal common iliac arteries are not well seen. IVC: Intrahepatic inferior vena cava is not well seen. Miscellaneous: No free abdominal fluid. IMPRESSION: 1. Mild hepatomegaly. 2. Visualized portions of the pancreas are unremarkable. No peripancreatic fluid. Dictated by: Pinky Rosario M.D. on 10/12/2017 at 17:58 Approved by: Pinky Rosario M.D. on 10/12/2017 at 18:00
--- NOTE | 2017-10-12 15:38 | DI.RAD.S_ITS ---
PROCEDURE: XR ACUTE ABDOMEN SERIES INDICATIONS: pain TECHNIQUE: One view chest and two views of the abdomen were acquired. COMPARISON: None. FINDINGS: Surgical changes and devices: A Chest: Lungs are clear. Heart size is normal. No pleural effusions. No pneumoperitoneum. Abdomen: Bowel gas pattern is normal. No suspicious calcifications. Visualized solid organ contours appear normal. Bones: No suspicious bony lesions. Lateral curvature of the spine and discogenic changes. IMPRESSION: No acute disease. No bowel obstruction. Dictated by: Clif Munguia M.D. on 10/12/2017 at 16:26 Approved by: Clif Munguia M.D. on 10/12/2017 at 16:33
[2017-10-12 16:29] LABS: Adenovirus F 40/41 Not Detected (Not Detect); Astrovirus Not Detected (Not Detect); Campylobacter Not Detected (Not Detect); Clostridium difficile toxin AB Not Detected (Not Detect); Cryptosporidium Not Detected (Not Detect); Cyclospora cayetanensis Not Detected (Not Detect); Entamoeba histolytica Not Detected (Not Detect); Enteroaggregative E.coli Not Detected (Not Detect); Enteropathogenic E.coli Not Detected (Not Detect); Enterotoxigenic E.coli It/st Not Detected (Not Detect); Giardia lamblia Not Detected (Not Detect); Norovirus GI/GII Not Detected (Not Detect); Plesiomonsa shigelloides Not Detected (Not Detect); Rotavirus A Not Detected (Not Detect); Salmonella Not Detected (Not Detect); Sapovirus Not Detected; Shiga-like toxin-prod E.coli Not Detected (Not Detect); Shigella/Enteroinvasive E.coli Not Detected (Not Detect); Vibrio Not Detected (Not Detect); Vibrio cholerae Not Detected (Not Detect); Yersinia enterocolitica Not Detected (Not Detect)
[2017-10-12 16:50] VITALS: BP 113/67; PULSE 80; RESP 14; O2SAT 96
[2017-10-12 18:52] VITALS: BP 143/82; PULSE 82; RESP 16; O2SAT 97
== END 2017-10-12 18:54 | disposition home or self-care (01) ==
PROVIDERS: Emergency Provider Internal Medicine; Family Provider Emergency Medicine Emergency Medical Services; PCP Emergency Medicine Emergency Medical Services
DX: K85.90 Acute pancreatitis without necrosis or infection, unspecified (principal); R11.2 Nausea with vomiting, unspecified; R19.7 Diarrhea, unspecified
CPT/HCPCS: 36591; 74022; 76700; 80053; 83690; 85025; 87507; 96361; 96374; 96375; 99283; 99284; J0780; J1170; J2405

== ENCOUNTER 2017-11-18 12:37 | Emergency (ER) | payer OTHER, SELFPAY ==
[2017-11-18 12:39] VITALS: BP 154/88; PULSE 89; RESP 18; TEMP 36.7; O2SAT 99; BMI 26.6
--- NOTE | 2017-11-18 12:50 | ED.ABDPAIN ---
HPI - Abdominal Pain <Digna Warren PA-C - Last Filed: 11/18/17 21:25> General Chief Complaint: Abdominal Pain Stated Complaint: PANCREAS PAIN Time Seen by Provider: 11/18/17 12:47 Source: patient Mode of arrival: ambulatory Limitations: no limitations History of Present Illness HPI narrative: This 62-year-old gentleman comes in due to what he describes as recurrent pancreatitis. He states he woke up at 4:30 a.m. this morning with nausea, then a couple of hours later started to have pain in his right upper quadrant radiating to his right and mid back. He states this can radiate to the other side and lower abdomen as well, it seems to vary in location somewhat. He feels like this is typical of his previous pancreatitis. Around 7:00 a.m. he also started to have vomiting 4 or 5 times, and at 8:30 a.m. started to have frequent diarrhea. He denies any blood in the stools. He states that he was feeling great recently and until yesterday. He made a lean meat loaf last night thinking he could tolerate that but thinks this is what caused his symptoms today as he says it was still fatty. He states he doesn't think he took enough pancreatic enzymes with this meal either. He denies any fever. Denies any other known exposures. He denies any chest pain or dyspnea. He states he does have cramps in his legs which he thinks is due to bracing and tight muscles Related Data Home Medications Medication Instructions Recorded Confirmed clopidogrel 75 mg PO Q DAY #0 04/15/08 09/25/17 diclofenac sodium [Voltaren] 1 crys TOPICAL PRN PRN #0 03/14/17 09/25/17 insulin aspart U-100 [Novolog 5 unit SUB-Q DIRECTED 08/17/17 09/25/17 Flexpen U-100 Insulin] insulin glargine [Lantus Solostar 15 unit SUB-Q BID 08/17/17 09/25/17 U-100 Insulin] [id number] [Creon] 1 cap PO DIRECTED 08/17/17 09/25/17 [id number] [Creon] 1 cap PO DIRECTED 08/17/17 09/25/17 lisinopril 20 mg PO DAILY 08/17/17 09/25/17 metoprolol tartrate 50 mg PO BID 08/17/17 09/25/17 omeprazole 40 mg PO BID 08/17/17 09/25/17 oxycodone 5 mg PO PRN PRN 08/17/17 09/25/17 promethazine 25 mg PO Q6HP PRN 08/17/17 09/25/17 acetaminophen 325 mg PO Q4HP PRN 09/25/17 09/25/17 cholecalciferol (vitamin D3) 1,000 unit PO TID 09/25/17 09/25/17 [Vitamin D3] Previous Rx's Medication Instructions Recorded ondansetron [Zofran ODT] 4 mg SUBLINGUAL Q6HP PRN #10 odt 03/19/17 promethazine [Phenergan] 25 mg IN Q6H PRN #10 each 09/25/17 Allergies Allergy/AdvReac Type Severity Reaction Status Date / Time Iodine and Iodide Containing Allergy Unknown Verified 11/20/17 03:31 Produc [IODINE AND IODIDE CONTAINING PRODUC] Sulfa (Sulfonamide Allergy Unknown Verified 11/20/17 03:31 Antibiotics) [SULFA (SULFONAMIDE ANTIBIOTICS)] Review of Systems <Digna Warren PA-C - Last Filed: 11/18/17 21:25> Review of Systems All systems reviewed & are unremarkable except as noted in HPI and below Exam <Digna Warren PA-C - Last Filed: 11/18/17 21:25> Narrative Exam Narrative: GENERAL APPEARANCE: Patient uncomfortable, lying on R. side HEENT: PERRL, EOMI, conjunctiva pink, no scleral icterus NECK: Supple, no masses LUNGS: Clear to auscultation bilaterally. HEART: Rate and rhythm regular, normal S1 and S2, no S3 or S4. ABDOMEN: Soft, nondistended, bowel sounds present x 4 quadrants, no masses palpable, no hepatosplenomegaly. Exquisite right upper quadrant to midline tenderness without guarding or rebound. Moderate tenderness throughout the remainder of the abdomen without guarding or rebound. No CVAT. EXTREMITIES: No edema, generalized tenderness over the calves and hamstrings. DERMATOLOGIC: No jaundice or exanthem NEUROLOGIC: Alert and oriented with normal speech and coordination Initial Vital Signs Initial Vital Signs: Vital Signs Temperature 98.1 F 11/18/17 12:39 Pulse Rate 89 11/18/17 12:39 Respiratory Rate 18 11/18/17 12:39 Blood Pressure 154/88 H 11/18/17 12:39 Pulse Oximetry 99 11/18/17 12:39 <Adi Dietrich DO - Last Filed: 11/30/17 07:04> Initial Vital Signs Initial Vital Signs: Vital Signs Temperature 98.1 F 11/18/17 12:39 Pulse Rate 89 11/18/17 12:39 Respiratory Rate 18 11/18/17 12:39 Blood Pressure 154/88 H 11/18/17 12:39 Pulse Oximetry 99 11/18/17 12:39 Course <Digna Warren PA-C - Last Filed: 11/18/17 21:25> Additional Information: On repeat exam patient's abdominal tenderness is more diffuse, still without rebound tenderness. He reports feeling much improved. Tolerating ice chips. No recurrent vomiting or diarrheal episodes. At the time of d/c patient is feeling markedly improved, wishes to return home and treat with his usual regimen. He agrees to return if any acutely worsening or new sx. He feels confident that this is similar to previous episodes and related to what he ate last night. Reviewed with Dr. Dietrich who is agreeable with plan to d/c Orders Ordered: Discontinued Medications Hydromorphone HCl (Dilaudid) 2 mg IV NOW ONE Stop: 11/18/17 12:58 Last Admin: 11/18/17 13:02 Dose: 2 mg Sodium Chloride (Normal Saline 0.9%) 1,000 mls @ 1,000 mls/hr IV BOLUS ONE Stop: 11/18/17 13:45 Last Infusion: 11/18/17 14:04 Dose: 0 mls/hr Admin: 11/18/17 13:02 Dose: 1,000 mls/hr Sodium Chloride (Normal Saline 0.9%) 1,000 mls @ 1,000 mls/hr IV BOLUS ONE Stop: 11/18/17 14:42 Last Infusion: 11/18/17 14:59 Dose: 0 mls/hr Admin: 11/18/17 14:06 Dose: 1,000 mls/hr Loperamide HCl (Immodium Liquid) 4 mg PO NOW ONE Stop: 11/18/17 13:44 Last Admin: 11/18/17 14:58 Dose: 4 mg Metoclopramide HCl (Reglan) 5 mg IV NOW ONE Stop: 11/18/17 13:44 Last Admin: 11/18/17 14:06 Dose: 5 mg Ondansetron HCl (Zofran) 4 mg IV NOW ONE Stop: 11/18/17 12:49 Last Admin: 11/18/17 13:02 Dose: 4 mg Vital Signs - 8 hr 11/18/17 14:09 11/18/17 15:09 Temperature 98.0 F Pulse Rate 82 87 Respiratory Rate 14 16 Blood Pressure [Left Arm] 127/70 H 130/85 H Pulse Oximetry 95 97 <Adi Dietrich, DO - Last Filed: 11/30/17 07:04> Orders Ordered: Discontinued Medications Hydromorphone HCl (Dilaudid) 2 mg IV NOW ONE Stop: 11/18/17 12:58 Last Admin: 11/18/17 13:02 Dose: 2 mg Sodium Chloride (Normal Saline 0.9%) 1,000 mls @ 1,000 mls/hr IV BOLUS ONE Stop: 11/18/17 13:45 Last Infusion: 11/18/17 14:04 Dose: 0 mls/hr Admin: 11/18/17 13:02 Dose: 1,000 mls/hr Sodium Chloride (Normal Saline 0.9%) 1,000 mls @ 1,000 mls/hr IV BOLUS ONE Stop: 11/18/17 14:42 Last Infusion: 11/18/17 14:59 Dose: 0 mls/hr Admin: 11/18/17 14:06 Dose: 1,000 mls/hr Loperamide HCl (Immodium Liquid) 4 mg PO NOW ONE Stop: 11/18/17 13:44 Last Admin: 11/18/17 14:58 Dose: 4 mg Metoclopramide HCl (Reglan) 5 mg IV NOW ONE Stop: 11/18/17 13:44 Last Admin: 11/18/17 14:06 Dose: 5 mg Ondansetron HCl (Zofran) 4 mg IV NOW ONE Stop: 11/18/17 12:49 Last Admin: 11/18/17 13:02 Dose: 4 mg Vital Signs - 8 hr 11/18/17 14:09 11/18/17 15:09 Temperature 98.0 F Pulse Rate 82 87 Respiratory Rate 14 16 Blood Pressure [Left Arm] 127/70 H 130/85 H Pulse Oximetry 95 97 MDM - Abdominal Pain <Digna Warren PA-C - Last Filed: 11/18/17 21:25> Lab Data Result diagrams: 11/18/17 12:50 11/18/17 12:50 Lab Results 11/18/17 11/18/17 11/18/17 Range/Units 12:50 12:50 12:50 WBC 15.6 H (4.5-11.0) X10^3/uL RBC 6.14 H (4.5-5.9) X10^6/uL Hgb 17.7 H (13.5-17.5) g/dL Hct 53.3 H (41-53) % MCV 86.8 (80-100) fL MCH 28.9 (26-34) PG MCHC 33.3 (30-36) % RDW 13.8 (11.6-14.8) % Plt Count 315 (150-400) X10^3/uL Neut % (Auto) 78.7 H (50-75) % Lymph % (Auto) 12.1 L (25-40) % [place] % (Auto) 7.5 (3-14) % Eos % (Auto) 0.9 L (2-4) % Baso % (Auto) 0.8 (0-2) % Neut # (Auto) 79369 H (7722-2667) /uL PT 12.3 (10.1-12.7) SECONDS INR 1.1 (0.9-1.3) APTT 34 (26.4-36.2) SECONDS Sodium 147 H (137-145) mmol/L Potassium 4.6 (3.4-5.1) mmol/L Chloride 104 (98-107) mmol/L Carbon Dioxide 22 (22-32) mmol/L BUN 16 (9-20) mg/dL Creatinine 0.80 (0.66-1.25) mg/dL Estimated GFR > 60.0 (>60) mL/min BUN/Creatinine Ratio 20.0 (6-22) Glucose 146 H (80-110) mg/dL Calcium 10.7 H (8.4-10.2) mg/dL Magnesium (1.6-2.3) mg/dL Total Bilirubin 0.7 (0.2-1.3) mg/dL AST 34 (17-59) IU/L ALT 34 (21-72) IU/L Alkaline Phosphatase 103 (38-126) U/L Total Protein 8.9 H (6.3-8.2) g/dL Albumin 5.5 H (3.5-5.0) g/dL Globulin 3.4 (1.7-4.1) g/dL Albumin/Globulin Ratio 1.6 (1.0-2.8) Lipase 139 (23-300) U/L Urine RBC (0-5/HPF) Urine WBC (0-5/HPF) Urine Bacteria (None) Hyaline Casts (None) Urine Mucus (Negative) Ur Culture Indicated? Micro UA Comment 11/18/17 11/18/17 Range/Units 12:50 13:15 WBC (4.5-11.0) X10^3/uL RBC (4.5-5.9) X10^6/uL Hgb (13.5-17.5) g/dL Hct (41-53) % MCV (80-100) fL MCH (26-34) PG MCHC (30-36) % RDW (11.6-14.8) % Plt Count (150-400) X10^3/uL Neut % (Auto) (50-75) % Lymph % (Auto) (25-40) % [place] % (Auto) (3-14) % Eos % (Auto) (2-4) % Baso % (Auto) (0-2) % Neut # (Auto) (1522-6694) /uL PT (10.1-12.7) SECONDS INR (0.9-1.3) APTT (26.4-36.2) SECONDS Sodium (137-145) mmol/L Potassium (3.4-5.1) mmol/L Chloride (98-107) mmol/L Carbon Dioxide (22-32) mmol/L BUN (9-20) mg/dL Creatinine (0.66-1.25) mg/dL Estimated GFR (>60) mL/min BUN/Creatinine Ratio (6-22) Glucose (80-110) mg/dL Calcium (8.4-10.2) mg/dL Magnesium 1.9 (1.6-2.3) mg/dL Total Bilirubin (0.2-1.3) mg/dL AST (17-59) IU/L ALT (21-72) IU/L Alkaline Phosphatase (38-126) U/L Total Protein (6.3-8.2) g/dL Albumin (3.5-5.0) g/dL Globulin (1.7-4.1) g/dL Albumin/Globulin Ratio (1.0-2.8) Lipase (23-300) U/L Urine RBC None seen (0-5/HPF) Urine WBC None seen (0-5/HPF) Urine Bacteria None seen (None) Hyaline Casts 1-5/lpf (None) Urine Mucus 1+ H (Negative) Ur Culture Indicated? Not Reportable Micro UA Comment Not Reportable Point of care testing: Urine Dip Bedside Urine Glucose Negative Bedside Urine Bilirubin - Negative Bedside Urine Ketone - Negative Urine Specific [place] 1.020 Bedside Urine Occult Blood - Negative Bedside Urine pH 5.5 Bedside Urine Protein +/- 15 Bedside Urine Urobilinogen - Negative Bedside Urine Nitrite - Negative Bedside Urine Leukocytes - Negative Esterase <Adi Dietrich, DO - Last Filed: 11/30/17 07:04> Lab Data Lab Results 11/18/17 11/18/17 11/18/17 Range/Units 12:50 12:50 12:50 WBC 15.6 H (4.5-11.0) X10^3/uL RBC 6.14 H (4.5-5.9) X10^6/uL Hgb 17.7 H (13.5-17.5) g/dL Hct 53.3 H (41-53) % MCV 86.8 (80-100) fL MCH 28.9 (26-34) PG MCHC 33.3 (30-36) % RDW 13.8 (11.6-14.8) % Plt Count 315 (150-400) X10^3/uL Neut % (Auto) 78.7 H (50-75) % Lymph % (Auto) 12.1 L (25-40) % [place] % (Auto) 7.5 (3-14) % Eos % (Auto) 0.9 L (2-4) % Baso % (Auto) 0.8 (0-2) % Neut # (Auto) 18344 H (0118-2285) /uL PT 12.3 (10.1-12.7) SECONDS INR 1.1 (0.9-1.3) APTT 34 (26.4-36.2) SECONDS Sodium 147 H (137-145) mmol/L Potassium 4.6 (3.4-5.1) mmol/L Chloride 104 (98-107) mmol/L Carbon Dioxide 22 (22-32) mmol/L BUN 16 (9-20) mg/dL Creatinine 0.80 (0.66-1.25) mg/dL Estimated GFR > 60.0 (>60) mL/min BUN/Creatinine Ratio 20.0 (6-22) Glucose 146 H (80-110) mg/dL Calcium 10.7 H (8.4-10.2) mg/dL Magnesium (1.6-2.3) mg/dL Total Bilirubin 0.7 (0.2-1.3) mg/dL AST 34 (17-59) IU/L ALT 34 (21-72) IU/L Alkaline Phosphatase 103 (38-126) U/L Total Protein 8.9 H (6.3-8.2) g/dL Albumin 5.5 H (3.5-5.0) g/dL Globulin 3.4 (1.7-4.1) g/dL Albumin/Globulin Ratio 1.6 (1.0-2.8) Lipase 139 (23-300) U/L Urine RBC (0-5/HPF) Urine WBC (0-5/HPF) Urine Bacteria (None) Hyaline Casts (None) Urine Mucus (Negative) Ur Culture Indicated? Micro UA Comment 11/18/17 11/18/17 Range/Units 12:50 13:15 WBC (4.5-11.0) X10^3/uL RBC (4.5-5.9) X10^6/uL Hgb (13.5-17.5) g/dL Hct (41-53) % MCV (80-100) fL MCH (26-34) PG MCHC (30-36) % RDW (11.6-14.8) % Plt Count (150-400) X10^3/uL Neut % (Auto) (50-75) % Lymph % (Auto) (25-40) % [place] % (Auto) (3-14) % Eos % (Auto) (2-4) % Baso % (Auto) (0-2) % Neut # (Auto) (6887-4087) /uL PT (10.1-12.7) SECONDS INR (0.9-1.3) APTT (26.4-36.2) SECONDS Sodium (137-145) mmol/L Potassium (3.4-5.1) mmol/L Chloride (98-107) mmol/L Carbon Dioxide (22-32) mmol/L BUN (9-20) mg/dL Creatinine (0.66-1.25) mg/dL Estimated GFR (>60) mL/min BUN/Creatinine Ratio (6-22) Glucose (80-110) mg/dL Calcium (8.4-10.2) mg/dL Magnesium 1.9 (1.6-2.3) mg/dL Total Bilirubin (0.2-1.3) mg/dL AST (17-59) IU/L ALT (21-72) IU/L Alkaline Phosphatase (38-126) U/L Total Protein (6.3-8.2) g/dL Albumin (3.5-5.0) g/dL Globulin (1.7-4.1) g/dL Albumin/Globulin Ratio (1.0-2.8) Lipase (23-300) U/L Urine RBC None seen (0-5/HPF) Urine WBC None seen (0-5/HPF) Urine Bacteria None seen (None) Hyaline Casts 1-5/lpf (None) Urine Mucus 1+ H (Negative) Ur Culture Indicated? Not Reportable Micro UA Comment Not Reportable Point of care testing: Urine Dip Bedside Urine Glucose Negative Bedside Urine Bilirubin - Negative Bedside Urine Ketone - Negative Urine Specific [place] 1.020 Bedside Urine Occult Blood - Negative Bedside Urine pH 5.5 Bedside Urine Protein +/- 15 Bedside Urine Urobilinogen - Negative Bedside Urine Nitrite - Negative Bedside Urine Leukocytes - Negative Esterase Discharge Plan Departure Patient Disposition: Home Clinical Impression: Nausea vomiting and diarrhea, Chronic pancreatitis Discharge Date/Time: 11/18/17 15:30 Interventions: ED Discharge Assessment Last Done: 11/18/17 15:28 Instructions: DI for Abdominal Pain-Adult Activity Restrictions/Additional Instructions: Since you are feeling better, you can try managing this at home as you usually do, starting with clear fluid and broth and slowly advancing your diet. Please use your antinausea and pain medicine as needed. We gave use some Imodium here for diarrhea and you can continue that if needed. Please return as we talked about if you are having any acutely worsening symptoms again or new symptoms such as fever. Prescriptions: No Action clopidogrel 75 mg Tablet 75 mg PO Q DAY Qty: 0 RF: 0 diclofenac sodium [Voltaren] 1 % gel 1 crys Topical PRN PRN (Reason: Analgesia) Qty: 0 RF: 0 ondansetron [Zofran ODT] 4 MG tablet,disintegrating 4 mg Sublingual Q6HP PRNQty: 10 RF: 0 lisinopril 20 mg Tablet 20 mg PO DAILY RF: 0 omeprazole 40 mg Capsule,Delayed Release(Dr/Ec) 40 mg PO BID RF: 0 metoprolol tartrate 50 mg Tablet 50 mg PO BID RF: 0 oxycodone 5 mg Tablet 5 mg PO PRN PRN (Reason: Pain, Severe) RF: 0 insulin aspart U-100 [Novolog Flexpen U-100 Insulin] 100 unit/mL Insulin Pen 5 unit Sub-Q DIRECTED RF: 0 insulin glargine [Lantus Solostar U-100 Insulin] 100 unit/mL (3 mL) Insulin Pen 15 unit SUB-Q BID RF: 0 [id number]-jcqbbcy [Creon] 6,000-19,000 -30,000 unit Capsule,Delayed Release(Dr/Ec) 1 cap PO DIRECTED RF: 0 [id number]-cryuyur [Creon] 36,000-114,000- 180,000 unit Capsule,Delayed Release(Dr/Ec) 1 cap PO DIRECTED RF: 0 promethazine 25 MG tablet 25 mg PO Q6HP PRN (Reason: Nausea) RF: 0 cholecalciferol (vitamin D3) [Vitamin D3] 1,000 unit Capsule 1,000 unit PO TID RF: 0 acetaminophen 325 MG tablet 325 mg PO Q4HP PRN (Reason: Pain, Mild) RF: 0 promethazine [Phenergan] 25 mg suppository 25 mg IN Q6H PRN (Reason: nausea and vomiting) Qty: 10 RF: 0 Referrals: Jacobo Ochoa MD [Primary Care Provider] - <Adi Dietrich DO - Last Filed: 11/30/17 07:04> Cosign ED Attending Martin Attestation: I was available for consultation during this patient's emergency department encounter
[2017-11-18] MEDS: ONDANSETRON 4 MG/2 ML INJ IV (13:02)
[2017-11-18] MEDS: HYDROMORPHONE 1 MG INJ 2 MG IV (13:02)
[2017-11-18] MEDS: SODIUM CHLORIDE 0.9% 1,000 ML 1000 ML IV ×2 (13:02→14:06)
[2017-11-18 13:04] LABS: Add Manual Diff / Slide Review NO; Basophils Percent Auto 0.8 % (0-2); Eosinophils Percent Auto 0.9 % (2-4); Hematocrit 53.3 % (41-53); Hemoglobin 17.7 g/dL (13.5-17.5); Lymphocytes Percent Auto 12.1 % (25-40); Mean Corpuscular HGB Conc 33.3 % (30-36); Mean Corpuscular Hemoglobin 28.9 PG (26-34); Mean Corpuscular Volume 86.8 fL (80-100); Monocytes Percent Auto 7.5 % (3-14); Neutrophils Absolute Auto 12300 /uL (3000-5900); Neutrophils Percent Auto 78.7 % (50-75); Platelet Count 315 X10^3/uL (150-400); Red Blood Cell Count 6.14 X10^6/uL (4.5-5.9); Red Cell Distribution Width 13.8 % (11.6-14.8); White Blood Cell Count 15.6 X10^3/uL (4.5-11.0)
[2017-11-18 13:19] LABS: Alanine Aminotransferase 34 IU/L (21-72); Albumin 5.5 g/dL (3.5-5.0); Albumin Globulin Ratio 1.6 (1.0-2.8); Alkaline Phosphatase 103 U/L (38-126); Aspartate Aminotransferase 34 IU/L (17-59); Bilirubin Total 0.7 mg/dL (0.2-1.3); Blood Urea Nitrogen 16 mg/dL (9-20); Calcium 10.7 mg/dL (8.4-10.2); Carbon Dioxide 22 mmol/L (22-32); Chloride 104 mmol/L (98-107); Estimated Glomerular Filt Rate > 60.0 mL/min (>60); Globulin 3.4 g/dL (1.7-4.1); Glucose 146 mg/dL (80-110); HEMOLYSIS 31 (0-50); INR 1.1 (0.9-1.3); Lipase 139 U/L (23-300); PTT Partial Thromboplastin Tim 34 SECONDS (26.4-36.2); Potassium 4.6 mmol/L (3.4-5.1); Prothrombin Time 12.3 SECONDS (10.1-12.7); Sodium 147 mmol/L (137-145); Total Protein 8.9 g/dL (6.3-8.2)
[2017-11-18 13:24] LABS: Bacteria Urine None Seen; RBC Urine None Seen (0-5/HPF); WBC Urine None Seen (0-5/HPF)
[2017-11-18 13:32] LABS: Hyaline Casts Urine 1-5/LPF; Mucus Urine 1+ (Negative)
[2017-11-18 13:33] LABS: Magnesium 1.9 mg/dL (1.6-2.3)
[2017-11-18] MEDS: METOCLOPRAMIDE 10 MG/2 ML INJ 5 MG IV (14:06)
[2017-11-18 14:09] VITALS: BP 127/70; PULSE 82; RESP 14; O2SAT 95
[2017-11-18] MEDS: LOPERAMIDE 2 MG/10 ML UDC 4 MG PO (14:58)
[2017-11-18 15:09] VITALS: BP 130/85; PULSE 87; RESP 16; TEMP 36.7; O2SAT 97
== END 2017-11-18 15:30 | disposition home or self-care (01) ==
PROVIDERS: Emergency Medicine; Emergency Provider Internal Medicine; Family Provider Emergency Medicine Emergency Medical Services; PCP Emergency Medicine Emergency Medical Services
DX: R11.2 Nausea with vomiting, unspecified (principal); R19.7 Diarrhea, unspecified; K86.1 Other chronic pancreatitis
CPT/HCPCS: 36591; 80053; 81003; 81015; 83690; 83735; 85025; 85610; 85730; 96361; 96374; 96375; 99283; 99284; J1170; J2405; J2765

== ENCOUNTER 2017-11-20 03:19 | Emergency (ER) | payer OTHER, SELFPAY ==
[2017-11-20] VITALS (10 sets, daily range): BP systolic 111–134; BP diastolic 48–97; PULSE 84–111; RESP 16–19; TEMP 37.3–38.7; O2SAT 95–99
[2017-11-20] MEDS: SODIUM CHLORIDE 0.9% 1,000 ML 1000 ML IV (03:57)
[2017-11-20] MEDS: PANTOPRAZOLE 40 MG VIAL IV (03:57)
[2017-11-20] MEDS: ONDANSETRON 4 MG/2 ML INJ IV (03:57)
[2017-11-20 04:00] LABS: Add Manual Diff / Slide Review NO; Basophils Percent Auto 1.1 % (0-2); Eosinophils Percent Auto 0.9 % (2-4); Hematocrit 41.3 % (41-53); Lymphocytes Percent Auto 4.7 % (25-40); Mean Corpuscular HGB Conc 33.9 % (30-36); Mean Corpuscular Hemoglobin 29.4 PG (26-34); Mean Corpuscular Volume 86.7 fL (80-100); Monocytes Percent Auto 8.8 % (3-14); Neutrophils Absolute Auto 7000 /uL (3000-5900); Neutrophils Percent Auto 84.5 % (50-75); Platelet Count 223 X10^3/uL (150-400); Red Blood Cell Count 4.76 X10^6/uL (4.5-5.9); Red Cell Distribution Width 13.8 % (11.6-14.8); White Blood Cell Count 8.3 X10^3/uL (4.5-11.0)
[2017-11-20 04:06] LABS: Alanine Aminotransferase 36 IU/L (21-72); Albumin 3.9 g/dL (3.5-5.0); Albumin Globulin Ratio 1.7 (1.0-2.8); Alkaline Phosphatase 67 U/L (38-126); Aspartate Aminotransferase 33 IU/L (17-59); BUN Creatinine Ratio 13.3 (6-22); Bilirubin Total 0.9 mg/dL (0.2-1.3); Blood Urea Nitrogen 8 mg/dL (9-20); Calcium 8.7 mg/dL (8.4-10.2); Carbon Dioxide 22 mmol/L (22-32); Chloride 108 mmol/L (98-107); Estimated Glomerular Filt Rate > 60.0 mL/min (>60); Globulin 2.3 g/dL (1.7-4.1); Glucose 156 mg/dL (80-110); HEMOLYSIS 16 (0-50); Potassium 3.5 mmol/L (3.4-5.1); Sodium 144 mmol/L (137-145); Total Protein 6.2 g/dL (6.3-8.2)
[2017-11-20 04:14] LABS: Lactate Dehydrogenase 446 U/L (313-618)
[2017-11-20] MEDS: HYDROMORPHONE 1 MG INJ IV ×4 (04:21→09:11)
[2017-11-20] MEDS: METOCLOPRAMIDE 10 MG/2 ML INJ IV (04:22)
[2017-11-20 04:27] LABS: Lactate (Lactic Acid) 1.5 mmol/L (0.7-2.1)
[2017-11-20 04:46] LABS: Procalcitonin 31.01 ng/mL (<0.5)
--- NOTE | 2017-11-20 04:58 | ED.ABDPAIN ---
HPI - Abdominal Pain General Chief Complaint: Abdominal Pain Stated Complaint: pain in pancreas diarrhea nausea vomiting Time Seen by Provider: 11/20/17 03:25 Source: patient Mode of arrival: ambulatory Limitations: no limitations History of Present Illness HPI narrative: 62-year-old male with history of pancreatitis and atrial fibrillation presents to the emergency department with a chief complaint of severe epigastric pain that is reminiscent of prior episodes of pancreatitis. Patient can often control his pain by a consuming clear liquids and oxycodone at home, however he has had persistent vomiting over the course of the day and intensifying pain. Any motion worsens his pain. He's been NPO to food since 5pm and liquid since 3am. Related Data Home Medications Medication Instructions Recorded Confirmed clopidogrel 75 mg PO Q DAY #0 04/15/08 09/25/17 diclofenac sodium [Voltaren] 1 crys TOPICAL PRN PRN #0 03/14/17 09/25/17 insulin aspart U-100 [Novolog 5 unit SUB-Q DIRECTED 08/17/17 09/25/17 Flexpen U-100 Insulin] insulin glargine [Lantus Solostar 15 unit SUB-Q BID 08/17/17 09/25/17 U-100 Insulin] [id number] [Creon] 1 cap PO DIRECTED 08/17/17 09/25/17 pelmsr-iwkvjwlc-[id number] [Creon] 1 cap PO DIRECTED 08/17/17 09/25/17 lisinopril 20 mg PO DAILY 08/17/17 09/25/17 metoprolol tartrate 50 mg PO BID 08/17/17 09/25/17 omeprazole 40 mg PO BID 08/17/17 09/25/17 oxycodone 5 mg PO PRN PRN 08/17/17 09/25/17 promethazine 25 mg PO Q6HP PRN 08/17/17 09/25/17 acetaminophen 325 mg PO Q4HP PRN 09/25/17 09/25/17 cholecalciferol (vitamin D3) 1,000 unit PO TID 09/25/17 09/25/17 [Vitamin D3] Previous Rx's Medication Instructions Recorded ondansetron [Zofran ODT] 4 mg SUBLINGUAL Q6HP PRN #10 odt 03/19/17 promethazine [Phenergan] 25 mg [place] Q6H PRN #10 each 09/25/17 Allergies Allergy/AdvReac Type Severity Reaction Status Date / Time Iodine and Iodide Containing Allergy Unknown Verified 11/20/17 03:31 Produc [IODINE AND IODIDE CONTAINING PRODUC] Sulfa (Sulfonamide Allergy Unknown Verified 11/20/17 03:31 Antibiotics) [SULFA (SULFONAMIDE ANTIBIOTICS)] Review of Systems Review of Systems All systems reviewed & are unremarkable except as noted in HPI and below Constitutional Reports chills, Reports fever(s), Denies lethargy and Denies weakness Eyes Denies change in vision, Denies eye discharge, Denies irritation and Denies loss of vision ENT Ears, Nose, Mouth, and Throat: Denies change in voice, Denies neck pain and Denies sore throat Cardiovascular Denies chest pain, Denies irregular heart rhythm, Denies lightheadedness, Denies palpitations, Denies dyspnea, Denies dyspnea on exertion and Denies orthopnea Respiratory Denies cough, Denies dyspnea, Denies dyspnea on exertion and Denies wheezing Gastrointestinal Gastrointestinal: Reports abdominal pain, Denies change in bowel habits, Denies diarrhea, Reports nausea and Denies vomiting Genitourinary Denies hematuria, Denies flank pain, Denies urinary incontinence and Denies urinary urgency Musculoskeletal Denies neck pain Integumentary/Breasts Denies pruritus, Denies erythema, Denies rash and Denies wounds Neurologic Denies confusion, Denies loss of vision and Denies weakness Psychiatric Denies anxiety, Denies confusion, Denies depression, Denies homicidal ideation and Denies suicidal ideation Endocrine Denies palpitations Hematologic/Lymphatic Denies easy bruising Allergic/Immunologic Denies wheezing PFSH Medical History GERD (gastroesophageal reflux disease) (Chronic) HTN (hypertension) (Chronic) Hyperlipidemia (Chronic) 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) Narcolepsy (Chronic) Paroxysmal atrial fibrillation (Chronic) Peripheral vascular disease (Chronic) Psoriasis (Chronic) Social History Smoking Status: Former smoker Exam Narrative Exam Narrative: 62M in obvious pain, clutching his R abdomen Initial Vital Signs Initial Vital Signs: Vital Signs Temperature 101.6 F H 11/20/17 03:27 Pulse Rate 111 H 11/20/17 03:27 Respiratory Rate 18 08/28/18 03:27 Blood Pressure 114/52 L 11/20/17 03:27 Pulse Oximetry 97 11/20/17 03:27 Const General: cooperative, well developed and acute distress Nutritional Appearance: well nourished Orientation: alert, awake, oriented x3 and not confused Neck Neck: normal visual inspection, trachea midline, No lymphadenopathy, No midline deformity and No JVD Lymphatic: No lymphedema Chest Chest: normal inspection of the chest Resp Effort & Inspection: normal respiratory effort, able to speak in complete sentences, no respiratory distress and no use of accessory muscles Auscultation: clear to auscultation bilaterally, no rales, no rhonchi and no wheezes Cardio Rate: regular rate Rhythm: regular rhythm Heart Sounds: no click, no gallops, no murmurs and no rubs Pulses: normal peripheral pulses GI Inspection: distended Palpation: soft, no hepatosplenomegaly, guarding, No pulsatile mass and No tender Auscultation: normal bowel sounds Back/Spine/Pelvis Back: No CVA tenderness Cervical Spine: cervical ROM normal and No pain with cervical ROM Thoracic/Lumbar Spine: thoracic and lumbar spine normal to inspection Skin General: no rashes or lesions noted, No jaundice and No petechiae Neuro General: alert, oriented x3, gait normal and no focal motor deficits Speech: speech normal Extrem General: full ROM, no clubbing, cyanosis or edema, no pedal edema and no calf tenderness Course Orders Ordered: ED Orders 11/20/17 03:40 Complete Blood Count AUTO DIFF Stat Comprehensive Metabolic Panel Stat Lactate Dehydrogenase Stat Lipase Stat Procalcitonin Stat 11/20/17 04:03 Lactate (Lactic Acid) Stat 11/20/17 05:15 CT abdomen pelvis w con Stat 11/20/17 06:35 Lactate (Lactic Acid) Stat White Blood Cell Count Stat Lactated Ringer's (Lactated Ringers) 1,000 mls @ 1,000 mls/hr IV BOLUS ONE Stop: 11/20/17 10:04 Last Admin: 11/20/17 09:11 Dose: 1,000 mls/hr Discontinued Medications Diphenhydramine HCl (Benadryl) 25 mg IV NOW ONE Stop: 11/20/17 05:14 Last Admin: 11/20/17 05:21 Dose: 25 mg Hydromorphone HCl (Dilaudid) 1 mg IV NOW ONE Stop: 11/20/17 04:00 Last Admin: 11/20/17 04:21 Dose: 1 mg Hydromorphone HCl (Dilaudid) 1 mg IV NOW ONE Stop: 11/20/17 06:32 Last Admin: 11/20/17 06:34 Dose: 1 mg Hydromorphone HCl (Dilaudid) 1 mg IV NOW ONE Stop: 11/20/17 07:36 Last Admin: 11/20/17 07:39 Dose: 1 mg Hydromorphone HCl (Dilaudid) 1 mg IV NOW ONE Stop: 11/20/17 09:06 Last Admin: 11/20/17 09:11 Dose: 1 mg Sodium Chloride (Normal Saline 0.9%) 1,000 mls @ 1,000 mls/hr IV BOLUS ONE Stop: 11/20/17 04:49 Last Infusion: 11/20/17 05:02 Dose: 0 mls/hr Admin: 11/20/17 03:57 Dose: 1,000 mls/hr Piperacillin/Tazobactam/Dextrose (Zosyn) 3.375 gm in 50 mls @ 100 mls/hr IV NOW ONE Stop: 11/20/17 06:27 Last Infusion: 11/20/17 08:44 Dose: 0 mls/hr Admin: 11/20/17 06:35 Dose: 100 mls/hr Lactated Ringer's (Lactated Ringers) 1,000 mls @ 1,000 mls/hr IV BOLUS ONE Stop: 11/20/17 07:58 Last Infusion: 11/20/17 08:58 Dose: 0 mls/hr Admin: 11/20/17 07:01 Dose: 1,000 mls/hr Methylprednisolone (Solu-Medrol 125 Mg Vial) 125 mg IV NOW ONE Stop: 11/20/17 05:14 Last Admin: 11/20/17 05:21 Dose: 125 mg Metoclopramide HCl (Reglan) 10 mg IV NOW ONE Stop: 11/20/17 04:00 Last Admin: 11/20/17 04:22 Dose: 10 mg Ondansetron HCl (Zofran) 4 mg IV Q4HR PRN PRN Reason: Nausea And Vomiting Last Admin: 11/20/17 03:57 Dose: 4 mg Pantoprazole Sodium (Protonix) 40 mg IV NOW ONE Stop: 11/20/17 03:51 Last Admin: 11/20/17 03:57 Dose: 40 mg Reevaluation(s) Reevaluation #1: Patient initially feeling better after 1st round of Dilaudid but pain is coming back rather quickly and he is requesting more pain meds Time: 05:30 Reevaluation #2: Patient pain becoming more intense and repeat dose pain meds given. Time: 07:48 Consultations Consultation #1: Call to Dr. Wilburn regarding this critically ill patient. We are unable to care for this patient at this hospital given our lack of ICU beds. Consultation #2: Called to [facility], no available beds appropriate for this patient, there surgeon Dr. Zendejas will be in touch regarding bed availability Consultation #3: Called to [facility], they do have available beds in our waiting images to be electronically transmitted to sure with their surgical team [facility] cannot accept patient as they are currently in the OR Call back to [facility]. They will continue to work on a bed [id number] - [facility] will accept patient to their [facility] pre op location. Dr. Churchill will be accepting physician. DOREEN notified with anticipated ETA 25 minutes. We thank Vital Signs - 8 hr 11/20/17 03:27 11/20/17 04:04 11/20/17 06:00 Temperature 101.6 F H Pulse Rate 111 H 107 H 100 H Respiratory Rate 18 18 18 Blood Pressure 114/52 L Blood Pressure [Left Arm] 111/55 L Blood Pressure [Right Arm] 129/48 H Pulse Oximetry 97 98 95 11/20/17 06:41 Temperature Pulse Rate 93 H Respiratory Rate 16 Blood Pressure Blood Pressure [Left Arm] 117/57 L Blood Pressure [Right Arm] Pulse Oximetry 99 MDM - Abdominal Pain Differential Diagnosis Differential diagnosis: Likely abdominal pain, acute appendicitis, calculus of kidney, constipation, diverticulitis, endometriosis, gastroenteritis, pancreatitis and small bowel obstruction Lab Data Result diagrams: 11/20/17 06:35 11/20/17 03:40 Lab Results 11/20/17 11/20/17 11/20/17 Range/Units 03:40 03:40 03:40 WBC 8.3 (4.5-11.0) X10^3/uL RBC 4.76 (4.5-5.9) X10^6/uL Hgb 14.0 (13.5-17.5) g/dL Hct 41.3 (41-53) % MCV 86.7 (80-100) fL MCH 29.4 (26-34) PG MCHC 33.9 (30-36) % RDW 13.8 (11.6-14.8) % Plt Count 223 (150-400) X10^3/uL Neut % (Auto) 84.5 H (50-75) % Lymph % (Auto) 4.7 L (25-40) % [place] % (Auto) 8.8 (3-14) % Eos % (Auto) 0.9 L (2-4) % Baso % (Auto) 1.1 (0-2) % Neut # (Auto) 7000 H (0737-3484) /uL Sodium (137-145) mmol/L Potassium (3.4-5.1) mmol/L Chloride (98-107) mmol/L Carbon Dioxide (22-32) mmol/L BUN (9-20) mg/dL Creatinine (0.66-1.25) mg/dL Estimated GFR (>60) mL/min BUN/Creatinine Ratio (6-22) Glucose (80-110) mg/dL Lactate (0.7-2.1) mmol/L Calcium (8.4-10.2) mg/dL Total Bilirubin (0.2-1.3) mg/dL AST (17-59) IU/L ALT (21-72) IU/L Alkaline Phosphatase (38-126) U/L Lactate Dehydrogenase 446 (313-618) U/L Total Protein (6.3-8.2) g/dL Albumin (3.5-5.0) g/dL Globulin (1.7-4.1) g/dL Albumin/Globulin Ratio (1.0-2.8) Lipase (23-300) U/L Procalcitonin 31.01 H (<0.5) ng/mL 11/20/17 11/20/17 11/20/17 Range/Units 03:40 03:40 04:03 WBC (4.5-11.0) X10^3/uL RBC (4.5-5.9) X10^6/uL Hgb (13.5-17.5) g/dL Hct (41-53) % MCV (80-100) fL MCH (26-34) PG MCHC (30-36) % RDW (11.6-14.8) % Plt Count (150-400) X10^3/uL Neut % (Auto) (50-75) % Lymph % (Auto) (25-40) % [place] % (Auto) (3-14) % Eos % (Auto) (2-4) % Baso % (Auto) (0-2) % Neut # (Auto) (8131-2831) /uL Sodium 144 (137-145) mmol/L Potassium 3.5 (3.4-5.1) mmol/L Chloride 108 H (98-107) mmol/L Carbon Dioxide 22 (22-32) mmol/L BUN 8 L (9-20) mg/dL Creatinine 0.60 L (0.66-1.25) mg/dL Estimated GFR > 60.0 (>60) mL/min BUN/Creatinine Ratio 13.3 (6-22) Glucose 156 H (80-110) mg/dL Lactate 1.5 (0.7-2.1) mmol/L Calcium 8.7 (8.4-10.2) mg/dL Total Bilirubin 0.9 (0.2-1.3) mg/dL AST 33 (17-59) IU/L ALT 36 (21-72) IU/L Alkaline Phosphatase 67 (38-126) U/L Lactate Dehydrogenase (313-618) U/L Total Protein 6.2 L (6.3-8.2) g/dL Albumin 3.9 (3.5-5.0) g/dL Globulin 2.3 (1.7-4.1) g/dL Albumin/Globulin Ratio 1.7 (1.0-2.8) Lipase 75 (23-300) U/L Procalcitonin (<0.5) ng/mL 11/20/17 11/20/17 Range/Units 06:35 06:35 WBC 7.6 (4.5-11.0) X10^3/uL RBC (4.5-5.9) X10^6/uL Hgb (13.5-17.5) g/dL Hct (41-53) % MCV (80-100) fL MCH (26-34) PG MCHC (30-36) % RDW (11.6-14.8) % Plt Count (150-400) X10^3/uL Neut % (Auto) (50-75) % Lymph % (Auto) (25-40) % [place] % (Auto) (3-14) % Eos % (Auto) (2-4) % Baso % (Auto) (0-2) % Neut # (Auto) (1031-5895) /uL Sodium (137-145) mmol/L Potassium (3.4-5.1) mmol/L Chloride (98-107) mmol/L Carbon Dioxide (22-32) mmol/L BUN (9-20) mg/dL Creatinine (0.66-1.25) mg/dL Estimated GFR (>60) mL/min BUN/Creatinine Ratio (6-22) Glucose (80-110) mg/dL Lactate 1.1 (0.7-2.1) mmol/L Calcium (8.4-10.2) mg/dL Total Bilirubin (0.2-1.3) mg/dL AST (17-59) IU/L ALT (21-72) IU/L Alkaline Phosphatase (38-126) U/L Lactate Dehydrogenase (313-618) U/L Total Protein (6.3-8.2) g/dL Albumin (3.5-5.0) g/dL Globulin (1.7-4.1) g/dL Albumin/Globulin Ratio (1.0-2.8) Lipase (23-300) U/L Procalcitonin (<0.5) ng/mL Point of care testing: Urine Dip Bedside Urine Glucose Negative Bedside Urine Bilirubin - Negative Bedside Urine Ketone - Negative Urine Specific [place] 1.025 Bedside Urine Occult Blood - Negative Bedside Urine pH 6.0 Bedside Urine Protein - Negative Bedside Urine Urobilinogen - Negative Bedside Urine Nitrite - Negative Bedside Urine Leukocytes - Negative Esterase Imaging Data CT scan - abdomen: Radiologist's impression: [address] [id number] [address] Scan Report Signed Patient: Jann Diehl CMR#: [id number] : 5Acct:[id number] Age/Sex: 62 / MDate of Service: 11/20/17 Loc: ED Accession Number: [id number] Procedure: CT abdomen pelvis w con Ordering Provider: Morgan Hunt D.O. PROCEDURE: CT ABDOMEN PELVIS W CON INDICATIONS: severe abdominal pain, fever, tachy,elevated procalcitonin TECHNIQUE: After the administration of intravenous contrast, 5 mm thick sections acquired from the diaphragm to the symphysis. 5 mm coronal and sagittal reformats were acquired. For radiation dose reduction, the following was used: automated exposure control, adjustment of mA and/or kV according to patient size. COMPARISON: [facility], CT, CT ABDOMEN PELVIS W CON, 09/25/2017, 13:34. [facility], CT, ABDOMEN/PELVIS WITH CONTRAST, 05/26/2017, 17:17. [facility], CT, ABDOMEN/PELVIS WITH CONTRAST, 03/19/2017, 15:57. FINDINGS: Image quality: Excellent. ABDOMEN: Lung bases: Lung bases are clear. Heart size is normal. Solid organs: Liver is normal in size and enhancement. Gallbladder appears normal. Biliary system is non dilated. Pancreas enhances normally. Spleen is normal in size and enhancement. No adrenal nodules. Kidneys demonstrate normal size and enhancement, without hydronephrosis. Peritoneum and bowel: Bowel loops demonstrate normal wall thickness and caliber however at the right upper quadrant the colon through the hepatic flexure and into the proximal half of the transverse colon demonstrates pneumatosis, without adjacent free air or abscess formation.. No free air. There is a small amount of free fluid at the hepatorenal space and adjacent to the upper margin of the right colon and anterior border of the lower right liver tip. No abscess. Nodes and vessels: No retroperitoneal or mesenteric adenopathy by size criteria. Aorta and inferior vena cava are normal in size. Specifically no embolic disease within the aorta or its main tributaries is seen and no evidence of mesenteric vein thrombosis or occlusion is found. Miscellaneous: No ventral hernias. PELVIS: Genitourinary: Bladder wall thickness is normal. Miscellaneous: No inguinal hernias or adenopathy. No evidence of appendicitis-the appendix tracks cephalad into the right upper quadrant. Bones: No suspicious bony lesions. No vertebral body compression fractures. IMPRESSION: Pneumatosis within the right colon involving the ascending colon near the liver and the transverse colon proximally. Etiology is uncertain, but no high-grade arterial stenosis or embolus is seen and no mesenteric vein thrombosis or occlusion is found. Underlying infectious etiology would be considered most likely in this circumstance as cause of intestinalis pneumatosis. Normal appendix found. A very small amount of free fluid is identified within the peritoneal space. Dictated by: Jacobo De Anda M.D. on 11/20/2017 at 8:28 Approved by: Jacobo De Anda M.D. on 11/20/2017 at 8:33 MDM Narrative Medical decision making narrative: patient has evolving abdomen. still soft with normal vitals and repeat lactate/WBC normal however he is becoming increasingly uncomfortable. He requires [facility] for rapid transport over long distance for surgical intervention. Critical Care Time Critical Care Time: Yes Total Critical Care Time: 45 Attestation: The high probability of a clinically significant, sudden or life threatening deterioration of the [cardiovascular] system(s) required my full and direct attention, intervention and personal management. The aggregate critical care time was [45] minutes. This time is in addition to time spent performing reported procedures but includes the following: [x] Data Review and interpretation [x] Patient assessment and monitoring of vital signs [x] Documentation [x] Medication orders and management Discharge Plan Departure Patient Disposition: [facility] Clinical Impression: Pneumatosis intestinalis of large intestine Prescriptions: No Action clopidogrel 75 mg Tablet 75 mg PO Q DAY Qty: 0 RF: 0 diclofenac sodium [Voltaren] 1 % gel 1 crys Topical PRN PRN (Reason: Analgesia) Qty: 0 RF: 0 ondansetron [Zofran ODT] 4 MG tablet,disintegrating 4 mg Sublingual Q6HP PRNQty: 10 RF: 0 lisinopril 20 mg Tablet 20 mg PO DAILY RF: 0 omeprazole 40 mg Capsule,Delayed Release(Dr/Ec) 40 mg PO BID RF: 0 metoprolol tartrate 50 mg Tablet 50 mg PO BID RF: 0 oxycodone 5 mg Tablet 5 mg PO PRN PRN (Reason: Pain, Severe) RF: 0 insulin aspart U-100 [Novolog Flexpen U-100 Insulin] 100 unit/mL Insulin Pen 5 unit Sub-Q DIRECTED RF: 0 insulin glargine [Lantus Solostar U-100 Insulin] 100 unit/mL (3 mL) Insulin Pen 15 unit SUB-Q BID RF: 0 [id number]-hgrflyuk-icgxbmu [Creon] 6,000-19,000 -30,000 unit Capsule,Delayed Release(Dr/Ec) 1 cap PO DIRECTED RF: 0 ghnqpz-btyvjkcg-zsdnscj [Creon] 36,000-114,000- 180,000 unit Capsule,Delayed Release(Dr/Ec) 1 cap PO DIRECTED RF: 0 promethazine 25 MG tablet 25 mg PO Q6HP PRN (Reason: Nausea) RF: 0 cholecalciferol (vitamin D3) [Vitamin D3] 1,000 unit Capsule 1,000 unit PO TID RF: 0 acetaminophen 325 MG tablet 325 mg PO Q4HP PRN (Reason: Pain, Mild) RF: 0 promethazine [Phenergan] 25 mg suppository 25 mg [place] Q6H PRN (Reason: nausea and vomiting) Qty: 10 RF: 0
[2017-11-20 05:07] LABS: Lipase 75 U/L (23-300)
--- NOTE | 2017-11-20 05:15 | DI.CT.S_ITS ---
PROCEDURE: CT ABDOMEN PELVIS W CON INDICATIONS: severe abdominal pain, fever, tachy,elevated procalcitonin TECHNIQUE: After the administration of intravenous contrast, 5 mm thick sections acquired from the diaphragm to the symphysis. 5 mm coronal and sagittal reformats were acquired. For radiation dose reduction, the following was used: automated exposure control, adjustment of mA and/or kV according to patient size. COMPARISON: [facility], CT, CT ABDOMEN PELVIS W CON, 09/25/2017, 13:34. [facility] With [facility], CT, ABDOMEN/PELVIS WITH CONTRAST, 05/26/2017, 17:17. [facility]ed With [facility], CT, ABDOMEN/PELVIS WITH CONTRAST, 03/19/2017, 15:57. FINDINGS: Image quality: Excellent. ABDOMEN: Lung bases: Lung bases are clear. Heart size is normal. Solid organs: Liver is normal in size and enhancement. Gallbladder appears normal. Biliary system is non dilated. Pancreas enhances normally. Spleen is normal in size and enhancement. No adrenal nodules. Kidneys demonstrate normal size and enhancement, without hydronephrosis. Peritoneum and bowel: Bowel loops demonstrate normal wall thickness and caliber however at the right upper quadrant the colon through the hepatic flexure and into the proximal half of the transverse colon demonstrates pneumatosis, without adjacent free air or abscess formation.. No free air. There is a small amount of free fluid at the hepatorenal space and adjacent to the upper margin of the right colon and anterior border of the lower right liver tip. No abscess. Nodes and vessels: No retroperitoneal or mesenteric adenopathy by size criteria. Aorta and inferior vena cava are normal in size. Specifically no embolic disease within the aorta or its main tributaries is seen and no evidence of mesenteric vein thrombosis or occlusion is found. Miscellaneous: No ventral hernias. PELVIS: Genitourinary: Bladder wall thickness is normal. Miscellaneous: No inguinal hernias or adenopathy. No evidence of appendicitis-the appendix tracks cephalad into the right upper quadrant. Bones: No suspicious bony lesions. No vertebral body compression fractures. IMPRESSION: Pneumatosis within the right colon involving the ascending colon near the liver and the transverse colon proximally. Etiology is uncertain, but no high-grade arterial stenosis or embolus is seen and no mesenteric vein thrombosis or occlusion is found. Underlying infectious etiology would be considered most likely in this circumstance as cause of intestinalis pneumatosis. Normal appendix found. A very small amount of free fluid is identified within the peritoneal space. Dictated by: Jacobo De Anda M.D. on 11/20/2017 at 8:28 Approved by: Jacobo De Anda M.D. on 11/20/2017 at 8:33
[2017-11-20] MEDS: diphenhydrAMINE 50 MG/ML VIAL 25 MG IV (05:21)
[2017-11-20] MEDS: methylPREDNISolone 125 MG/2 ML VIAL IV (05:21)
[2017-11-20] MEDS: PIPERACILLIN-TAZO 3.375 GM/50 ML FROZ.PIGGY IV (06:35)
[2017-11-20 06:57] LABS: Lactate (Lactic Acid) 1.1 mmol/L (0.7-2.1)
[2017-11-20] MEDS: LACTATED RINGERS 1,000 ML 1000 ML IV ×2 (07:01→09:11)
[2017-11-20 07:18] LABS: White Blood Cell Count 7.6 X10^3/uL (4.5-11.0)
--- NOTE | 2017-11-20 07:26 | ED_ITS ---
HPI - Abdominal Pain General Chief Complaint: Abdominal Pain Stated Complaint: pain in pancreas diarrhea nausea vomiting Time Seen by Provider: 11/20/17 03:25 Source: patient Mode of arrival: ambulatory Limitations: no limitations History of Present Illness HPI narrative: 62-year-old male with history of pancreatitis and atrial fibrillation presents to the emergency department with a chief complaint of severe epigastric pain that is reminiscent of prior episodes of pancreatitis. Patient can often control his pain by a consuming clear liquids and oxycodone at home, however he has had persistent vomiting over the course of the day and intensifying pain. Any motion worsens his pain. He's been NPO to food since 5pm and liquid since 3am. Related Data Home Medications Medication Instructions Recorded Confirmed clopidogrel 75 mg PO Q DAY #0 04/15/08 09/25/17 diclofenac sodium [Voltaren] 1 crys TOPICAL PRN PRN #0 03/14/17 09/25/17 insulin aspart U-100 [Novolog 5 unit SUB-Q DIRECTED 08/17/17 09/25/17 Flexpen U-100 Insulin] insulin glargine [Lantus Solostar 15 unit SUB-Q BID 08/17/17 09/25/17 U-100 Insulin] [id number] [Creon] 1 cap PO DIRECTED 08/17/17 09/25/17 [id number] [Creon] 1 cap PO DIRECTED 08/17/17 09/25/17 lisinopril 20 mg PO DAILY 08/17/17 09/25/17 metoprolol tartrate 50 mg PO BID 08/17/17 09/25/17 omeprazole 40 mg PO BID 08/17/17 09/25/17 oxycodone 5 mg PO PRN PRN 08/17/17 09/25/17 promethazine 25 mg PO Q6HP PRN 08/17/17 09/25/17 acetaminophen 325 mg PO Q4HP PRN 09/25/17 09/25/17 cholecalciferol (vitamin D3) 1,000 unit PO TID 09/25/17 09/25/17 [Vitamin D3] Previous Rx's Medication Instructions Recorded ondansetron [Zofran ODT] 4 mg SUBLINGUAL Q6HP PRN #10 odt 03/19/17 promethazine [Phenergan] 25 mg HI Q6H PRN #10 each 09/25/17 Allergies Allergy/AdvReac Type Severity Reaction Status Date / Time Iodine and Iodide Containing Allergy Unknown Verified 11/20/17 03:31 Produc [IODINE AND IODIDE CONTAINING PRODUC] Sulfa (Sulfonamide Allergy Unknown Verified 11/20/17 03:31 Antibiotics) [SULFA (SULFONAMIDE ANTIBIOTICS)] Review of Systems Review of Systems All systems reviewed & are unremarkable except as noted in HPI and below Constitutional Reports chills, Reports fever(s), Denies lethargy and Denies weakness Eyes Denies change in vision, Denies eye discharge, Denies irritation and Denies loss of vision ENT Ears, Nose, Mouth, and Throat: Denies change in voice, Denies neck pain and Denies sore throat Cardiovascular Denies chest pain, Denies irregular heart rhythm, Denies lightheadedness, Denies palpitations, Denies dyspnea, Denies dyspnea on exertion and Denies orthopnea Respiratory Denies cough, Denies dyspnea, Denies dyspnea on exertion and Denies wheezing Gastrointestinal Gastrointestinal: Reports abdominal pain, Denies change in bowel habits, Denies diarrhea, Reports nausea and Denies vomiting Genitourinary Denies hematuria, Denies flank pain, Denies urinary incontinence and Denies urinary urgency Musculoskeletal Denies neck pain Integumentary/Breasts Denies pruritus, Denies erythema, Denies rash and Denies wounds Neurologic Denies confusion, Denies loss of vision and Denies weakness Psychiatric Denies anxiety, Denies confusion, Denies depression, Denies homicidal ideation and Denies suicidal ideation Endocrine Denies palpitations Hematologic/Lymphatic Denies easy bruising Allergic/Immunologic Denies wheezing PFSH Medical History GERD (gastroesophageal reflux disease) (Chronic) HTN (hypertension) (Chronic) Hyperlipidemia (Chronic) 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) Narcolepsy (Chronic) Paroxysmal atrial fibrillation (Chronic) Peripheral vascular disease (Chronic) Psoriasis (Chronic) Social History Smoking Status: Former smoker Exam Narrative Exam Narrative: 62M in obvious pain, clutching his R abdomen Initial Vital Signs Initial Vital Signs: Vital Signs Temperature 101.6 F H 11/20/17 03:27 Pulse Rate 111 H 11/20/17 03:27 Respiratory Rate 18 08/28/18 03:27 Blood Pressure 114/52 L 11/20/17 03:27 Pulse Oximetry 97 11/20/17 03:27 Const General: cooperative, well developed and acute distress Nutritional Appearance: well nourished Orientation: alert, awake, oriented x3 and not confused Neck Neck: normal visual inspection, trachea midline, No lymphadenopathy, No midline deformity and No JVD Lymphatic: No lymphedema Chest Chest: normal inspection of the chest Resp Effort & Inspection: normal respiratory effort, able to speak in complete sentences, no respiratory distress and no use of accessory muscles Auscultation: clear to auscultation bilaterally, no rales, no rhonchi and no wheezes Cardio Rate: regular rate Rhythm: regular rhythm Heart Sounds: no click, no gallops, no murmurs and no rubs Pulses: normal peripheral pulses GI Inspection: distended Palpation: soft, no hepatosplenomegaly, guarding, No pulsatile mass and No tender Auscultation: normal bowel sounds Back/Spine/Pelvis Back: No CVA tenderness Cervical Spine: cervical ROM normal and No pain with cervical ROM Thoracic/Lumbar Spine: thoracic and lumbar spine normal to inspection Skin General: no rashes or lesions noted, No jaundice and No petechiae Neuro General: alert, oriented x3, gait normal and no focal motor deficits Speech: speech normal Extrem General: full ROM, no clubbing, cyanosis or edema, no pedal edema and no calf tenderness Course Orders Ordered: ED Orders 11/20/17 03:40 Complete Blood Count AUTO DIFF Stat Comprehensive Metabolic Panel Stat Lactate Dehydrogenase Stat Lipase Stat Procalcitonin Stat 11/20/17 04:03 Lactate (Lactic Acid) Stat 11/20/17 05:15 CT abdomen pelvis w con Stat 11/20/17 06:35 Lactate (Lactic Acid) Stat White Blood Cell Count Stat Lactated Ringer's (Lactated Ringers) 1,000 mls @ 1,000 mls/hr IV BOLUS ONE Stop: 11/20/17 10:04 Last Admin: 11/20/17 09:11 Dose: 1,000 mls/hr Discontinued Medications Diphenhydramine HCl (Benadryl) 25 mg IV NOW ONE Stop: 11/20/17 05:14 Last Admin: 11/20/17 05:21 Dose: 25 mg Hydromorphone HCl (Dilaudid) 1 mg IV NOW ONE Stop: 11/20/17 04:00 Last Admin: 11/20/17 04:21 Dose: 1 mg Hydromorphone HCl (Dilaudid) 1 mg IV NOW ONE Stop: 11/20/17 06:32 Last Admin: 11/20/17 06:34 Dose: 1 mg Hydromorphone HCl (Dilaudid) 1 mg IV NOW ONE Stop: 11/20/17 07:36 Last Admin: 11/20/17 07:39 Dose: 1 mg Hydromorphone HCl (Dilaudid) 1 mg IV NOW ONE Stop: 11/20/17 09:06 Last Admin: 11/20/17 09:11 Dose: 1 mg Sodium Chloride (Normal Saline 0.9%) 1,000 mls @ 1,000 mls/hr IV BOLUS ONE Stop: 11/20/17 04:49 Last Infusion: 11/20/17 05:02 Dose: 0 mls/hr Admin: 11/20/17 03:57 Dose: 1,000 mls/hr Piperacillin/Tazobactam/Dextrose (Zosyn) 3.375 gm in 50 mls @ 100 mls/hr IV NOW ONE Stop: 11/20/17 06:27 Last Infusion: 11/20/17 08:44 Dose: 0 mls/hr Admin: 11/20/17 06:35 Dose: 100 mls/hr Lactated Ringer's (Lactated Ringers) 1,000 mls @ 1,000 mls/hr IV BOLUS ONE Stop: 11/20/17 07:58 Last Infusion: 11/20/17 08:58 Dose: 0 mls/hr Admin: 11/20/17 07:01 Dose: 1,000 mls/hr Methylprednisolone (Solu-Medrol 125 Mg Vial) 125 mg IV NOW ONE Stop: 11/20/17 05:14 Last Admin: 11/20/17 05:21 Dose: 125 mg Metoclopramide HCl (Reglan) 10 mg IV NOW ONE Stop: 11/20/17 04:00 Last Admin: 11/20/17 04:22 Dose: 10 mg Ondansetron HCl (Zofran) 4 mg IV Q4HR PRN PRN Reason: Nausea And Vomiting Last Admin: 11/20/17 03:57 Dose: 4 mg Pantoprazole Sodium (Protonix) 40 mg IV NOW ONE Stop: 11/20/17 03:51 Last Admin: 11/20/17 03:57 Dose: 40 mg Reevaluation(s) Reevaluation #1: Patient initially feeling better after 1st round of Dilaudid but pain is coming back rather quickly and he is requesting more pain meds Time: 05:30 Reevaluation #2: Patient pain becoming more intense and repeat dose pain meds given. Time: 07:48 Consultations Consultation #1: Call to Dr. Wilburn regarding this critically ill patient. We are unable to care for this patient at this hospital given our lack of ICU beds. Consultation #2: Called to [facility], no available beds appropriate for this patient, there surgeon Dr. Zendejas will be in touch regarding bed availability Consultation #3: Called to [facility], they do have available beds in our waiting images to be electronically transmitted to sure with their surgical team [facility] cannot accept patient as they are currently in the OR Call [facility]. They will continue to work on a bed [id number] - [facility] accept patient to their [facility] pre op location. Dr. Churchill will be accepting physician. DOREEN notified with anticipated ETA 25 minutes. We thank Vital Signs - 8 hr 11/20/17 03:27 11/20/17 04:04 11/20/17 06:00 Temperature 101.6 F H Pulse Rate 111 H 107 H 100 H Respiratory Rate 18 18 18 Blood Pressure 114/52 L Blood Pressure [Left Arm] 111/55 L Blood Pressure [Right Arm] 129/48 H Pulse Oximetry 97 98 95 11/20/17 06:41 Temperature Pulse Rate 93 H Respiratory Rate 16 Blood Pressure Blood Pressure [Left Arm] 117/57 L Blood Pressure [Right Arm] Pulse Oximetry 99 MDM - Abdominal Pain Differential Diagnosis Differential diagnosis: Likely abdominal pain, acute appendicitis, calculus of kidney, constipation, diverticulitis, endometriosis, gastroenteritis, pancreatitis and small bowel obstruction Lab Data Result diagrams: 11/20/17 06:35 11/20/17 03:40 Lab Results 11/20/17 11/20/17 11/20/17 Range/Units 03:40 03:40 03:40 WBC 8.3 (4.5-11.0) X10^3/uL RBC 4.76 (4.5-5.9) X10^6/uL Hgb 14.0 (13.5-17.5) g/dL Hct 41.3 (41-53) % MCV 86.7 (80-100) fL MCH 29.4 (26-34) PG MCHC 33.9 (30-36) % RDW 13.8 (11.6-14.8) % Plt Count 223 (150-400) X10^3/uL Neut % (Auto) 84.5 H (50-75) % Lymph % (Auto) 4.7 L (25-40) % Titus % (Auto) 8.8 (3-14) % Eos % (Auto) 0.9 L (2-4) % Baso % (Auto) 1.1 (0-2) % Neut # (Auto) 7000 H (3381-1099) /uL Sodium (137-145) mmol/L Potassium (3.4-5.1) mmol/L Chloride (98-107) mmol/L Carbon Dioxide (22-32) mmol/L BUN (9-20) mg/dL Creatinine (0.66-1.25) mg/dL Estimated GFR (>60) mL/min BUN/Creatinine Ratio (6-22) Glucose (80-110) mg/dL Lactate (0.7-2.1) mmol/L Calcium (8.4-10.2) mg/dL Total Bilirubin (0.2-1.3) mg/dL AST (17-59) IU/L ALT (21-72) IU/L Alkaline Phosphatase (38-126) U/L Lactate Dehydrogenase 446 (313-618) U/L Total Protein (6.3-8.2) g/dL Albumin (3.5-5.0) g/dL Globulin (1.7-4.1) g/dL Albumin/Globulin Ratio (1.0-2.8) Lipase (23-300) U/L Procalcitonin 31.01 H (<0.5) ng/mL 11/20/17 11/20/17 11/20/17 Range/Units 03:40 03:40 04:03 WBC (4.5-11.0) X10^3/uL RBC (4.5-5.9) X10^6/uL Hgb (13.5-17.5) g/dL Hct (41-53) % MCV (80-100) fL MCH (26-34) PG MCHC (30-36) % RDW (11.6-14.8) % Plt Count (150-400) X10^3/uL Neut % (Auto) (50-75) % Lymph % (Auto) (25-40) % Titus % (Auto) (3-14) % Eos % (Auto) (2-4) % Baso % (Auto) (0-2) % Neut # (Auto) (4741-0521) /uL Sodium 144 (137-145) mmol/L Potassium 3.5 (3.4-5.1) mmol/L Chloride 108 H (98-107) mmol/L Carbon Dioxide 22 (22-32) mmol/L BUN 8 L (9-20) mg/dL Creatinine 0.60 L (0.66-1.25) mg/dL Estimated GFR > 60.0 (>60) mL/min BUN/Creatinine Ratio 13.3 (6-22) Glucose 156 H (80-110) mg/dL Lactate 1.5 (0.7-2.1) mmol/L Calcium 8.7 (8.4-10.2) mg/dL Total Bilirubin 0.9 (0.2-1.3) mg/dL AST 33 (17-59) IU/L ALT 36 (21-72) IU/L Alkaline Phosphatase 67 (38-126) U/L Lactate Dehydrogenase (313-618) U/L Total Protein 6.2 L (6.3-8.2) g/dL Albumin 3.9 (3.5-5.0) g/dL Globulin 2.3 (1.7-4.1) g/dL Albumin/Globulin Ratio 1.7 (1.0-2.8) Lipase 75 (23-300) U/L Procalcitonin (<0.5) ng/mL 11/20/17 11/20/17 Range/Units 06:35 06:35 WBC 7.6 (4.5-11.0) X10^3/uL RBC (4.5-5.9) X10^6/uL Hgb (13.5-17.5) g/dL Hct (41-53) % MCV (80-100) fL MCH (26-34) PG MCHC (30-36) % RDW (11.6-14.8) % Plt Count (150-400) X10^3/uL Neut % (Auto) (50-75) % Lymph % (Auto) (25-40) % Titus % (Auto) (3-14) % Eos % (Auto) (2-4) % Baso % (Auto) (0-2) % Neut # (Auto) (9678-7755) /uL Sodium (137-145) mmol/L Potassium (3.4-5.1) mmol/L Chloride (98-107) mmol/L Carbon Dioxide (22-32) mmol/L BUN (9-20) mg/dL Creatinine (0.66-1.25) mg/dL Estimated GFR (>60) mL/min BUN/Creatinine Ratio (6-22) Glucose (80-110) mg/dL Lactate 1.1 (0.7-2.1) mmol/L Calcium (8.4-10.2) mg/dL Total Bilirubin (0.2-1.3) mg/dL AST (17-59) IU/L ALT (21-72) IU/L Alkaline Phosphatase (38-126) U/L Lactate Dehydrogenase (313-618) U/L Total Protein (6.3-8.2) g/dL Albumin (3.5-5.0) g/dL Globulin (1.7-4.1) g/dL Albumin/Globulin Ratio (1.0-2.8) Lipase (23-300) U/L Procalcitonin (<0.5) ng/mL Point of care testing: Urine Dip Bedside Urine Glucose Negative Bedside Urine Bilirubin - Negative Bedside Urine Ketone - Negative Urine Specific [place] 1.025 Bedside Urine Occult Blood - Negative Bedside Urine pH 6.0 Bedside Urine Protein - Negative Bedside Urine Urobilinogen - Negative Bedside Urine Nitrite - Negative Bedside Urine Leukocytes - Negative Esterase Imaging Data CT scan - abdomen: Radiologist's impression: [address] [address] [address] Scan Report Signed Patient: Jann Diehl CMR#: [id number] : 5Acct:[id number] Age/Sex: 62 / MDate of Service: 11/20/17 Loc: ED Accession Number: [id number] Procedure: CT abdomen pelvis w con Ordering Provider: Morgan Hunt D.O. PROCEDURE: CT ABDOMEN PELVIS W CON INDICATIONS: severe abdominal pain, fever, tachy,elevated procalcitonin TECHNIQUE: After the administration of intravenous contrast, 5 mm thick sections acquired from the diaphragm to the symphysis. 5 mm coronal and sagittal reformats were acquired. For radiation dose reduction, the following was used: automated exposure control, adjustment of mA and/or kV according to patient size. COMPARISON: , CT, CT ABDOMEN PELVIS W CON, 09/25/2017, 13:34. , CT, ABDOMEN/PELVIS WITH CONTRAST, 05/26/2017, 17:17. , CT, ABDOMEN/PELVIS WITH CONTRAST, 03/19/2017, 15:57. FINDINGS: Image quality: Excellent. ABDOMEN: Lung bases: Lung bases are clear. Heart size is normal. Solid organs: Liver is normal in size and enhancement. Gallbladder appears normal. Biliary system is non dilated. Pancreas enhances normally. Spleen is normal in size and enhancement. No adrenal nodules. Kidneys demonstrate normal size and enhancement, without hydronephrosis. Peritoneum and bowel: Bowel loops demonstrate normal wall thickness and caliber however at the right upper quadrant the colon through the hepatic flexure and into the proximal half of the transverse colon demonstrates pneumatosis, without adjacent free air or abscess formation.. No free air. There is a small amount of free fluid at the hepatorenal space and adjacent to the upper margin of the right colon and anterior border of the lower right liver tip. No abscess. Nodes and vessels: No retroperitoneal or mesenteric adenopathy by size criteria. Aorta and inferior vena cava are normal in size. Specifically no embolic disease within the aorta or its main tributaries is seen and no evidence of mesenteric vein thrombosis or occlusion is found. Miscellaneous: No ventral hernias. PELVIS: Genitourinary: Bladder wall thickness is normal. Miscellaneous: No inguinal hernias or adenopathy. No evidence of appendicitis- the appendix tracks cephalad into the right upper quadrant. Bones: No suspicious bony lesions. No vertebral body compression fractures. IMPRESSION: Pneumatosis within the right colon involving the ascending colon near the liver and the transverse colon proximally. Etiology is uncertain, but no high- grade arterial stenosis or embolus is seen and no mesenteric vein thrombosis or occlusion is found. Underlying infectious etiology would be considered most likely in this circumstance as cause of intestinalis pneumatosis. Normal appendix found. A very small amount of free fluid is identified within the peritoneal space. Dictated by: Jacobo De Anda M.D. on 11/20/2017 at 8:28 Approved by: Jacobo De Anda M.D. on 11/20/2017 at 8:33 MDM Narrative Medical decision making narrative: patient has evolving abdomen. still soft with normal vitals and repeat lactate/WBC normal however he is becoming increasingly uncomfortable. He requires [facility] for rapid transport over long distance for surgical intervention. Critical Care Time Critical Care Time: Yes Total Critical Care Time: 45 Attestation: The high probability of a clinically significant, sudden or life threatening deterioration of the [cardiovascular] system(s) required my full and direct attention, intervention and personal management. The aggregate critical care time was [45] minutes. This time is in addition to time spent performing reported procedures but includes the following: [x] Data Review and interpretation [x] Patient assessment and monitoring of vital signs [x] Documentation [x] Medication orders and management Discharge Plan Departure Patient Disposition: [facility] Clinical Impression: Pneumatosis intestinalis of large intestine Prescriptions: No Action clopidogrel 75 mg Tablet 75 mg PO Q DAY Qty: 0 RF: 0 diclofenac sodium [Voltaren] 1 % gel 1 crys Topical PRN PRN (Reason: Analgesia) Qty: 0 RF: 0 ondansetron [Zofran ODT] 4 MG tablet,disintegrating 4 mg Sublingual Q6HP PRNQty: 10 RF: 0 lisinopril 20 mg Tablet 20 mg PO DAILY RF: 0 omeprazole 40 mg Capsule,Delayed Release(Dr/Ec) 40 mg PO BID RF: 0 metoprolol tartrate 50 mg Tablet 50 mg PO BID RF: 0 oxycodone 5 mg Tablet 5 mg PO PRN PRN (Reason: Pain, Severe) RF: 0 insulin aspart U-100 [Novolog Flexpen U-100 Insulin] 100 unit/mL Insulin Pen 5 unit Sub-Q DIRECTED RF: 0 insulin glargine [Lantus Solostar U-100 Insulin] 100 unit/mL (3 mL) Insulin Pen 15 unit SUB-Q BID RF: 0 dgncku-cunpubgc-jfziurf [Creon] 6,000-19,000 -30,000 unit Capsule,Delayed Release(Dr/Ec) 1 cap PO DIRECTED RF: 0 [id number] [Creon] 36,000-114,000- 180,000 unit Capsule,Delayed Release(Dr/Ec) 1 cap PO DIRECTED RF: 0 promethazine 25 MG tablet 25 mg PO Q6HP PRN (Reason: Nausea) RF: 0 cholecalciferol (vitamin D3) [Vitamin D3] 1,000 unit Capsule 1,000 unit PO TID RF: 0 acetaminophen 325 MG tablet 325 mg PO Q4HP PRN (Reason: Pain, Mild) RF: 0 promethazine [Phenergan] 25 mg suppository 25 mg HI Q6H PRN (Reason: nausea and vomiting) Qty: 10 RF: 0
--- NOTE | 2017-11-20 08:54 | ED.ABDPAIN ---
HPI - Abdominal Pain General Chief Complaint: Abdominal Pain Stated Complaint: pain in pancreas diarrhea nausea vomiting Time Seen by Provider: 11/20/17 03:25 Source: patient Mode of arrival: ambulatory Limitations: no limitations Related Data Home Medications Medication Instructions Recorded Confirmed clopidogrel 75 mg PO Q DAY #0 04/15/08 09/25/17 diclofenac sodium [Voltaren] 1 crys TOPICAL PRN PRN #0 03/14/17 09/25/17 insulin aspart U-100 [Novolog 5 unit SUB-Q DIRECTED 08/17/17 09/25/17 Flexpen U-100 Insulin] insulin glargine [Lantus Solostar 15 unit SUB-Q BID 08/17/17 09/25/17 U-100 Insulin] [id number] [Creon] 1 cap PO DIRECTED 08/17/17 09/25/17 [id number]-lstyapqr-zznttkw [Creon] 1 cap PO DIRECTED 08/17/17 09/25/17 lisinopril 20 mg PO DAILY 08/17/17 09/25/17 metoprolol tartrate 50 mg PO BID 08/17/17 09/25/17 omeprazole 40 mg PO BID 08/17/17 09/25/17 oxycodone 5 mg PO PRN PRN 08/17/17 09/25/17 promethazine 25 mg PO Q6HP PRN 08/17/17 09/25/17 acetaminophen 325 mg PO Q4HP PRN 09/25/17 09/25/17 cholecalciferol (vitamin D3) 1,000 unit PO TID 09/25/17 09/25/17 [Vitamin D3] Previous Rx's Medication Instructions Recorded ondansetron [Zofran ODT] 4 mg SUBLINGUAL Q6HP PRN #10 odt 03/19/17 promethazine [Phenergan] 25 mg UT Q6H PRN #10 each 09/25/17 Allergies Allergy/AdvReac Type Severity Reaction Status Date / Time Iodine and Iodide Containing Allergy Unknown Verified 11/20/17 03:31 Produc [IODINE AND IODIDE CONTAINING PRODUC] Sulfa (Sulfonamide Allergy Unknown Verified 11/20/17 03:31 Antibiotics) [SULFA (SULFONAMIDE ANTIBIOTICS)] Review of Systems Constitutional Denies weakness Eyes Denies loss of vision Neurologic Denies confusion, Denies loss of vision and Denies weakness Psychiatric Denies confusion [facility]LY [facility] Medical History GERD (gastroesophageal reflux disease) (Chronic) HTN (hypertension) (Chronic) Hyperlipidemia (Chronic) 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) Narcolepsy (Chronic) Paroxysmal atrial fibrillation (Chronic) Peripheral vascular disease (Chronic) Psoriasis (Chronic) Social History Smoking Status: Former smoker Exam Initial Vital Signs Initial Vital Signs: Vital Signs Temperature 101.6 F H 11/20/17 03:27 Pulse Rate 111 H 11/20/17 03:27 Respiratory Rate 18 11/20/17 03:27 Blood Pressure 114/52 L 11/20/17 03:27 Pulse Oximetry 97 11/20/17 03:27 Course Orders Ordered: ED Orders 11/20/17 EKG-12 Lead Stat 11/20/17 03:40 Complete Blood Count AUTO DIFF Stat Comprehensive Metabolic Panel Stat Lactate Dehydrogenase Stat Lipase Stat Procalcitonin Stat 11/20/17 04:03 Lactate (Lactic Acid) Stat 11/20/17 05:15 CT abdomen pelvis w con Stat 11/20/17 06:35 Lactate (Lactic Acid) Stat White Blood Cell Count Stat Discontinued Medications Diphenhydramine HCl (Benadryl) 25 mg IV NOW ONE Stop: 11/20/17 05:14 Last Admin: 11/20/17 05:21 Dose: 25 mg Hydromorphone HCl (Dilaudid) 1 mg IV NOW ONE Stop: 11/20/17 04:00 Last Admin: 11/20/17 04:21 Dose: 1 mg Hydromorphone HCl (Dilaudid) 1 mg IV NOW ONE Stop: 11/20/17 06:32 Last Admin: 11/20/17 06:34 Dose: 1 mg Hydromorphone HCl (Dilaudid) 1 mg IV NOW ONE Stop: 11/20/17 07:36 Last Admin: 11/20/17 07:39 Dose: 1 mg Sodium Chloride (Normal Saline 0.9%) 1,000 mls @ 1,000 mls/hr IV BOLUS ONE Stop: 11/20/17 04:49 Last Infusion: 11/20/17 05:02 Dose: 0 mls/hr Admin: 11/20/17 03:57 Dose: 1,000 mls/hr Piperacillin/Tazobactam/Dextrose (Zosyn) 3.375 gm in 50 mls @ 100 mls/hr IV NOW ONE Stop: 11/20/17 06:27 Last Infusion: 11/20/17 08:44 Dose: 0 mls/hr Admin: 11/20/17 06:35 Dose: 100 mls/hr Lactated Ringer's (Lactated Ringers) 1,000 mls @ 1,000 mls/hr IV BOLUS ONE Stop: 11/20/17 07:58 Last Admin: 11/20/17 07:01 Dose: 1,000 mls/hr Methylprednisolone (Solu-Medrol 125 Mg Vial) 125 mg IV NOW ONE Stop: 11/20/17 05:14 Last Admin: 11/20/17 05:21 Dose: 125 mg Metoclopramide HCl (Reglan) 10 mg IV NOW ONE Stop: 11/20/17 04:00 Last Admin: 11/20/17 04:22 Dose: 10 mg Ondansetron HCl (Zofran) 4 mg IV Q4HR PRN PRN Reason: Nausea And Vomiting Last Admin: 11/20/17 03:57 Dose: 4 mg Pantoprazole Sodium (Protonix) 40 mg IV NOW ONE Stop: 11/20/17 03:51 Last Admin: 11/20/17 03:57 Dose: 40 mg Vital Signs - 8 hr 11/20/17 03:27 11/20/17 04:04 11/20/17 06:00 Temperature 101.6 F H Pulse Rate 111 H 107 H 100 H Respiratory Rate 18 18 18 Blood Pressure 114/52 L Blood Pressure [Left Arm] 111/55 L Blood Pressure [Right Arm] 129/48 H Pulse Oximetry 97 98 95 11/20/17 06:41 Temperature Pulse Rate 93 H Respiratory Rate 16 Blood Pressure Blood Pressure [Left Arm] 117/57 L Blood Pressure [Right Arm] Pulse Oximetry 99 MDM - Abdominal Pain Lab Data Result diagrams: 11/20/17 06:35 11/20/17 03:40 Lab Results 11/20/17 11/20/17 11/20/17 Range/Units 03:40 03:40 03:40 WBC 8.3 (4.5-11.0) X10^3/uL RBC 4.76 (4.5-5.9) X10^6/uL Hgb 14.0 (13.5-17.5) g/dL Hct 41.3 (41-53) % MCV 86.7 (80-100) fL MCH 29.4 (26-34) PG MCHC 33.9 (30-36) % RDW 13.8 (11.6-14.8) % Plt Count 223 (150-400) X10^3/uL Neut % (Auto) 84.5 H (50-75) % Lymph % (Auto) 4.7 L (25-40) % George % (Auto) 8.8 (3-14) % Eos % (Auto) 0.9 L (2-4) % Baso % (Auto) 1.1 (0-2) % Neut # (Auto) 7000 H (9845-0754) /uL Sodium (137-145) mmol/L Potassium (3.4-5.1) mmol/L Chloride (98-107) mmol/L Carbon Dioxide (22-32) mmol/L BUN (9-20) mg/dL Creatinine (0.66-1.25) mg/dL Estimated GFR (>60) mL/min BUN/Creatinine Ratio (6-22) Glucose (80-110) mg/dL Lactate (0.7-2.1) mmol/L Calcium (8.4-10.2) mg/dL Total Bilirubin (0.2-1.3) mg/dL AST (17-59) IU/L ALT (21-72) IU/L Alkaline Phosphatase (38-126) U/L Lactate Dehydrogenase 446 (313-618) U/L Total Protein (6.3-8.2) g/dL Albumin (3.5-5.0) g/dL Globulin (1.7-4.1) g/dL Albumin/Globulin Ratio (1.0-2.8) Lipase (23-300) U/L Procalcitonin 31.01 H (<0.5) ng/mL 11/20/17 11/20/17 11/20/17 Range/Units 03:40 03:40 04:03 WBC (4.5-11.0) X10^3/uL RBC (4.5-5.9) X10^6/uL Hgb (13.5-17.5) g/dL Hct (41-53) % MCV (80-100) fL MCH (26-34) PG MCHC (30-36) % RDW (11.6-14.8) % Plt Count (150-400) X10^3/uL Neut % (Auto) (50-75) % Lymph % (Auto) (25-40) % George % (Auto) (3-14) % Eos % (Auto) (2-4) % Baso % (Auto) (0-2) % Neut # (Auto) (4423-2888) /uL Sodium 144 (137-145) mmol/L Potassium 3.5 (3.4-5.1) mmol/L Chloride 108 H (98-107) mmol/L Carbon Dioxide 22 (22-32) mmol/L BUN 8 L (9-20) mg/dL Creatinine 0.60 L (0.66-1.25) mg/dL Estimated GFR > 60.0 (>60) mL/min BUN/Creatinine Ratio 13.3 (6-22) Glucose 156 H (80-110) mg/dL Lactate 1.5 (0.7-2.1) mmol/L Calcium 8.7 (8.4-10.2) mg/dL Total Bilirubin 0.9 (0.2-1.3) mg/dL AST 33 (17-59) IU/L ALT 36 (21-72) IU/L Alkaline Phosphatase 67 (38-126) U/L Lactate Dehydrogenase (313-618) U/L Total Protein 6.2 L (6.3-8.2) g/dL Albumin 3.9 (3.5-5.0) g/dL Globulin 2.3 (1.7-4.1) g/dL Albumin/Globulin Ratio 1.7 (1.0-2.8) Lipase 75 (23-300) U/L Procalcitonin (<0.5) ng/mL 11/20/17 11/20/17 Range/Units 06:35 06:35 WBC 7.6 (4.5-11.0) X10^3/uL RBC (4.5-5.9) X10^6/uL Hgb (13.5-17.5) g/dL Hct (41-53) % MCV (80-100) fL MCH (26-34) PG MCHC (30-36) % RDW (11.6-14.8) % Plt Count (150-400) X10^3/uL Neut % (Auto) (50-75) % Lymph % (Auto) (25-40) % George % (Auto) (3-14) % Eos % (Auto) (2-4) % Baso % (Auto) (0-2) % Neut # (Auto) (4305-8509) /uL Sodium (137-145) mmol/L Potassium (3.4-5.1) mmol/L Chloride (98-107) mmol/L Carbon Dioxide (22-32) mmol/L BUN (9-20) mg/dL Creatinine (0.66-1.25) mg/dL Estimated GFR (>60) mL/min BUN/Creatinine Ratio (6-22) Glucose (80-110) mg/dL Lactate 1.1 (0.7-2.1) mmol/L Calcium (8.4-10.2) mg/dL Total Bilirubin (0.2-1.3) mg/dL AST (17-59) IU/L ALT (21-72) IU/L Alkaline Phosphatase (38-126) U/L Lactate Dehydrogenase (313-618) U/L Total Protein (6.3-8.2) g/dL Albumin (3.5-5.0) g/dL Globulin (1.7-4.1) g/dL Albumin/Globulin Ratio (1.0-2.8) Lipase (23-300) U/L Procalcitonin (<0.5) ng/mL Point of care testing: Urine Dip Bedside Urine Glucose Negative Bedside Urine Bilirubin - Negative Bedside Urine Ketone - Negative Urine Specific Holstein 1.025 Bedside Urine Occult Blood - Negative Bedside Urine pH 6.0 Bedside Urine Protein - Negative Bedside Urine Urobilinogen - Negative Bedside Urine Nitrite - Negative Bedside Urine Leukocytes - Negative Esterase Discharge Plan Departure Patient Disposition: [facility] Clinical Impression: Pneumatosis intestinalis of large intestine Prescriptions: No Action clopidogrel 75 mg Tablet 75 mg PO Q DAY Qty: 0 RF: 0 diclofenac sodium [Voltaren] 1 % gel 1 crys Topical PRN PRN (Reason: Analgesia) Qty: 0 RF: 0 ondansetron [Zofran ODT] 4 MG tablet,disintegrating 4 mg Sublingual Q6HP PRNQty: 10 RF: 0 lisinopril 20 mg Tablet 20 mg PO DAILY RF: 0 omeprazole 40 mg Capsule,Delayed Release(Dr/Ec) 40 mg PO BID RF: 0 metoprolol tartrate 50 mg Tablet 50 mg PO BID RF: 0 oxycodone 5 mg Tablet 5 mg PO PRN PRN (Reason: Pain, Severe) RF: 0 insulin aspart U-100 [Novolog Flexpen U-100 Insulin] 100 unit/mL Insulin Pen 5 unit Sub-Q DIRECTED RF: 0 insulin glargine [Lantus Solostar U-100 Insulin] 100 unit/mL (3 mL) Insulin Pen 15 unit SUB-Q BID RF: 0 hzljvb-zteqbtox-kvsixpg [Creon] 6,000-19,000 -30,000 unit Capsule,Delayed Release(Dr/Ec) 1 cap PO DIRECTED RF: 0 cbnfwn-ryvsrvyj-ebhngvq [Creon] 36,000-114,000- 180,000 unit Capsule,Delayed Release(Dr/Ec) 1 cap PO DIRECTED RF: 0 promethazine 25 MG tablet 25 mg PO Q6HP PRN (Reason: Nausea) RF: 0 cholecalciferol (vitamin D3) [Vitamin D3] 1,000 unit Capsule 1,000 unit PO TID RF: 0 acetaminophen 325 MG tablet 325 mg PO Q4HP PRN (Reason: Pain, Mild) RF: 0 promethazine [Phenergan] 25 mg suppository 25 mg UT Q6H PRN (Reason: nausea and vomiting) Qty: 10 RF: 0
--- NOTE | 2017-11-20 10:03 | PC.NURSE ---
Report given to [employer] at this time.
== END 2017-11-20 10:05 | disposition short-term general hospital (02) ==
PROVIDERS: Emergency Provider Emergency Medicine; Family Provider Emergency Medicine Emergency Medical Services; PCP Emergency Medicine Emergency Medical Services
DX: K63.89 Other specified diseases of intestine (principal)
CPT/HCPCS: 36415; 36591; 74177; 80053; 81003; 83605; 83615; 83690; 84145; 85025; 85048; 93005; 93010; 96361; 96365; 96366; 96375; 96376; 99285; C9113; J1170; J1200; J2405; J2543; J2765; J2930; Q9967

== ENCOUNTER 2017-12-31 13:05 | Emergency (ER) | payer OTHER, SELFPAY ==
[2017-12-31 13:10] VITALS: BP 115/70; PULSE 82; RESP 18; TEMP 37.1; O2SAT 97
--- NOTE | 2017-12-31 13:20 | PC.NURSE ---
1305/ not in waiting area 1315 not in waiting area
[2017-12-31 13:45] VITALS: TEMP 36.7
--- NOTE | 2017-12-31 14:03 | DI.CT.S_ITS ---
PROCEDURE: CT ABDOMEN PELVIS W CON INDICATIONS: vomiiting pain pancreatitis and pneumatosis TECHNIQUE: After the administration of intravenous contrast, 5 mm thick sections acquired from the diaphragm to the symphysis. 5 mm coronal and sagittal reformats were acquired. For radiation dose reduction, the following was used: automated exposure control, adjustment of mA and/or kV according to patient size. COMPARISON: [facility], CT, CT ABDOMEN PELVIS W CON, 11/20/2017, 5:16. FINDINGS: Image quality: Excellent. ABDOMEN: Lung bases: Lung bases are clear. Heart size is normal. Solid organs: Liver is normal in size and enhancement. Gallbladder appears normal. Biliary system is non dilated. Pancreas enhances normally. Spleen is normal in size and enhancement. No adrenal nodules. Kidneys demonstrate normal size and enhancement, without hydronephrosis. Peritoneum and bowel: Bowel loops demonstrate normal wall thickness and caliber. No free fluid or air. Nodes and vessels: No retroperitoneal or mesenteric adenopathy by size criteria. Aorta and inferior vena cava are normal in size. Miscellaneous: No ventral hernias. PELVIS: Genitourinary: Bladder wall thickness is normal. Miscellaneous: No inguinal hernias or adenopathy. Normal appendix right lower quadrant. Moderate diverticulosis without acute diverticulitis. Bones: No suspicious bony lesions. No vertebral body compression fractures. IMPRESSION: Normal appendix out, source of her pain is not seen. No evidence of intestinal pneumatosis at this time. Moderate diverticulosis over the sigmoid colon but without acute diverticulitis. Dictated by: Jacobo De Anda M.D. on 12/31/2017 at 15:39 Approved by: Jacobo De Anda M.D. on 12/31/2017 at 15:40
[2017-12-31 14:11] LABS: Add Manual Diff / Slide Review NO; Basophils Percent Auto 0.8 % (0-2); Eosinophils Percent Auto 0.6 % (2-4); Hematocrit 50.7 % (41-53); Hemoglobin 17.2 g/dL (13.5-17.5); Lymphocytes Percent Auto 15.2 % (25-40); Mean Corpuscular HGB Conc 33.9 % (30-36); Mean Corpuscular Hemoglobin 29.4 PG (26-34); Mean Corpuscular Volume 86.9 fL (80-100); Neutrophils Absolute Auto 11600 /uL (3000-5900); Neutrophils Percent Auto 80.4 % (50-75); Platelet Count 316 X10^3/uL (150-400); Red Blood Cell Count 5.83 X10^6/uL (4.5-5.9); Red Cell Distribution Width 13.9 % (11.6-14.8); White Blood Cell Count 14.4 X10^3/uL (4.5-11.0)
[2017-12-31] MEDS: HYDROMORPHONE 2 MG INJ 1 MG IV (14:17)
[2017-12-31] MEDS: ONDANSETRON 4 MG/2 ML INJ IV (14:17)
[2017-12-31 14:19] LABS: INR 1.1 (0.9-1.3); Prothrombin Time 12.3 SECONDS (10.1-12.7)
[2017-12-31] MEDS: PROCHLORPERAZINE 10 MG/2 ML VIAL IV (14:19)
[2017-12-31] MEDS: SODIUM CHLORIDE 0.9% 1,000 ML 1000 ML IV (14:20)
[2017-12-31 14:22] LABS: PTT Partial Thromboplastin Tim 35 SECONDS (26.4-36.2)
[2017-12-31 14:25] LABS: Alanine Aminotransferase 35 IU/L (21-72); Albumin 5.8 g/dL (3.5-5.0); Albumin Globulin Ratio 1.6 (1.0-2.8); Alkaline Phosphatase 111 U/L (38-126); BUN Creatinine Ratio 22.5 (6-22); Bilirubin Total 0.8 mg/dL (0.2-1.3); Blood Urea Nitrogen 18 mg/dL (9-20); Calcium 10.8 mg/dL (8.4-10.2); Carbon Dioxide 19 mmol/L (22-32); Chloride 103 mmol/L (98-107); Estimated Glomerular Filt Rate > 60.0 mL/min (>60); Globulin 3.7 g/dL (1.7-4.1); Glucose 172 mg/dL (80-110); HEMOLYSIS 81 (0-50); Lipase 178 U/L (23-300); Sodium 145 mmol/L (137-145); Total Protein 9.5 g/dL (6.3-8.2)
[2017-12-31 14:34] LABS: Aspartate Aminotransferase 39 IU/L (17-59)
--- NOTE | 2017-12-31 14:49 | ED_ITS ---
HPI - Abdominal Pain General Chief Complaint: Abdominal Pain Stated Complaint: STATES PANCREAS Time Seen by Provider: 12/31/17 13:42 Source: patient Mode of arrival: ambulatory Limitations: no limitations History of Present Illness HPI narrative: Patient is a 62-year-old male presenting with abdominal pain nausea. He does have a history of pancreatitis however most recently at the end of October 2017 he was found to have pneumatosis and he was sent emergently to [facility] where he had a colectomy. Thought initially to have ischemic bowel but found to have good healthy colon. Last night he started feeling extremely nauseous he had a suppository Phenergan which she said helped the most however his pain got worse and he continues to be nauseated and vomiting. MD complaint: abdominal pain Related Data Home Medications Medication Instructions Recorded Confirmed clopidogrel 75 mg PO Q DAY #0 04/15/08 09/25/17 diclofenac sodium [Voltaren] 1 crys TOPICAL PRN PRN #0 03/14/17 09/25/17 insulin aspart U-100 [Novolog 5 unit SUB-Q DIRECTED 08/17/17 09/25/17 Flexpen U-100 Insulin] insulin glargine [Lantus Solostar 15 unit SUB-Q BID 08/17/17 09/25/17 U-100 Insulin] fyvwuj-pxkrvftg-zocwzri [Creon] 1 cap PO DIRECTED 08/17/17 09/25/17 tflxrd-ssjvjdyw-wrjguff [Creon] 1 cap PO DIRECTED 08/17/17 09/25/17 lisinopril 20 mg PO DAILY 08/17/17 09/25/17 metoprolol tartrate 50 mg PO BID 08/17/17 09/25/17 omeprazole 40 mg PO BID 08/17/17 09/25/17 oxycodone 5 mg PO PRN PRN 08/17/17 09/25/17 promethazine 25 mg PO Q6HP PRN 08/17/17 09/25/17 acetaminophen 325 mg PO Q4HP PRN 09/25/17 09/25/17 cholecalciferol (vitamin D3) 1,000 unit PO TID 09/25/17 09/25/17 [Vitamin D3] Previous Rx's Medication Instructions Recorded ondansetron [Zofran ODT] 4 mg SUBLINGUAL Q6HP PRN #10 odt 03/19/17 promethazine [Phenergan] 25 mg NC Q6H PRN #10 each 09/25/17 Allergies Allergy/AdvReac Type Severity Reaction Status Date / Time Iodine and Iodide Containing Allergy Unknown Verified 11/20/17 03:31 Produc [IODINE AND IODIDE CONTAINING PRODUC] Sulfa (Sulfonamide Allergy Unknown Verified 11/20/17 03:31 Antibiotics) [SULFA (SULFONAMIDE ANTIBIOTICS)] Review of Systems Review of Systems All systems reviewed & are unremarkable except as noted in HPI and below Constitutional Reports anorexia, Denies chills, Reports fatigue, Denies fever(s), Denies lethargy and Denies weakness Cardiovascular Denies chest pain, Denies irregular heart rhythm, Denies lightheadedness, Denies palpitations, Denies dyspnea, Denies dyspnea on exertion and Denies orthopnea Respiratory Denies cough, Denies dyspnea, Denies dyspnea on exertion and Denies wheezing Gastrointestinal Gastrointestinal: Reports as per HPI Musculoskeletal Denies back pain, Denies muscle weakness, Denies numbness and Denies tingling Integumentary/Breasts Denies pruritus, Denies erythema, Denies rash and Denies wounds Neurologic Denies numbness, Denies tingling and Denies weakness Endocrine Reports fatigue and Denies palpitations Allergic/Immunologic Denies wheezing PFS Medical History GERD (gastroesophageal reflux disease) (Chronic) HTN (hypertension) (Chronic) Hyperlipidemia (Chronic) 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) Narcolepsy (Chronic) Paroxysmal atrial fibrillation (Chronic) Peripheral vascular disease (Chronic) Psoriasis (Chronic) Surgical History H/O exploratory laparotomy (Acute) Social History Smoking Status: Former smoker Exam Initial Vital Signs Initial Vital Signs: Vital Signs Temperature 98.8 F 12/31/17 13:10 Pulse Rate 82 12/31/17 13:10 Respiratory Rate 18 12/31/17 13:10 Blood Pressure 115/70 12/31/17 13:10 Pulse Oximetry 97 12/31/17 13:10 GENERAL: Appears uncomfortable actively dry heaving HEENT: Head atraumatic,EOMI, pupils reactive, face symmetric, CARDIOVASCULAR: Regular rate and rhythm without murmurs, rubs or gallops. RESPIRATORY: Breath sounds equal bilaterally, no wheezes rales or rhonchi. ABDOMEN: Soft, midline scar noted still think but healing diffusely tender mild distension no guarding no rebound EXTREMITIES: Normal range of motion, no clubbing or edema. Neurovascularly intact NEUROLOGICAL: Alert and oriented x4.Normal gait and speech. Cranial nerves II through XII grossly intact. SKIN: Warm, dry, no laceration, no petechiae, no rashes or lesions. Course Orders Ordered: ED Orders 12/31/17 13:36 EKG-12 Lead Stat 12/31/17 14:03 CT abdomen pelvis w con Stat 12/31/17 14:05 Complete Blood Count AUTO DIFF Stat Comprehensive Metabolic Panel Stat Lipase Stat Partial Thromboplastin Time Stat Prothrombin Time INR Stat Discontinued Medications Diphenhydramine HCl (Benadryl) 25 mg IV NOW ONE Stop: 12/31/17 15:09 Last Admin: 12/31/17 15:12 Dose: 25 mg Hydromorphone HCl (Dilaudid) 1 mg IV NOW ONE Stop: 12/31/17 14:04 Last Admin: 12/31/17 14:17 Dose: 1 mg Sodium Chloride (Normal Saline 0.9%) 1,000 mls @ 1,000 mls/hr IV BOLUS ONE Stop: 12/31/17 15:17 Last Infusion: 12/31/17 16:00 Dose: 0 mls/hr Admin: 12/31/17 14:20 Dose: 1,000 mls/hr Methylprednisolone (Solu-Medrol 125 Mg Vial) 125 mg IV NOW ONE Stop: 12/31/17 15:09 Last Admin: 12/31/17 15:12 Dose: 125 mg Ondansetron HCl (Zofran) 4 mg IV NOW ONE Stop: 12/31/17 14:04 Last Admin: 12/31/17 14:17 Dose: 4 mg Prochlorperazine (Compazine) 10 mg IV NOW ONE Stop: 12/31/17 14:19 Last Admin: 12/31/17 14:19 Dose: 10 mg Vital Signs - 8 hr 12/31/17 13:10 12/31/17 13:45 12/31/17 15:34 Temperature 98.8 F 98.0 F Pulse Rate 82 88 Respiratory Rate 18 Blood Pressure [Left Arm] 115/70 125/52 L Pulse Oximetry 97 100 MDM - Abdominal Pain Lab Data Attestation: I reviewed the patient's lab results. Result diagrams: 12/31/17 14:05 12/31/17 14:05 Lab Results 12/31/17 12/31/17 12/31/17 Range/Units 14:05 14:05 14:05 WBC 14.4 H (4.5-11.0) X10^3/uL RBC 5.83 (4.5-5.9) X10^6/uL Hgb 17.2 (13.5-17.5) g/dL Hct 50.7 (41-53) % MCV 86.9 (80-100) fL MCH 29.4 (26-34) PG MCHC 33.9 (30-36) % RDW 13.9 (11.6-14.8) % Plt Count 316 (150-400) X10^3/uL Neut % (Auto) 80.4 H (50-75) % Lymph % (Auto) 15.2 L (25-40) % [facility] % (Auto) 3.0 (3-14) % Eos % (Auto) 0.6 L (2-4) % Baso % (Auto) 0.8 (0-2) % Neut # (Auto) 47368 H (6712-8888) /uL PT 12.3 (10.1-12.7) SECONDS INR 1.1 (0.9-1.3) APTT 35 (26.4-36.2) SECONDS Sodium 145 (137-145) mmol/L Potassium 5.0 (3.4-5.1) mmol/L Chloride 103 (98-107) mmol/L Carbon Dioxide 19 L (22-32) mmol/L BUN 18 (9-20) mg/dL Creatinine 0.80 (0.66-1.25) mg/dL Estimated GFR > 60.0 (>60) mL/min BUN/Creatinine Ratio 22.5 H (6-22) Glucose 172 H (80-110) mg/dL Calcium 10.8 H (8.4-10.2) mg/dL Total Bilirubin 0.8 (0.2-1.3) mg/dL AST 39 (17-59) IU/L ALT 35 (21-72) IU/L Alkaline Phosphatase 111 (38-126) U/L Total Protein 9.5 H (6.3-8.2) g/dL Albumin 5.8 H (3.5-5.0) g/dL Globulin 3.7 (1.7-4.1) g/dL Albumin/Globulin Ratio 1.6 (1.0-2.8) Lipase 178 (23-300) U/L Imaging Data CT scan - abdomen: Radiologist's impression: PROCEDURE: CT ABDOMEN PELVIS W CON INDICATIONS: vomiiting pain pancreatitis and pneumatosis TECHNIQUE: After the administration of intravenous contrast, 5 mm thick sections acquired from the diaphragm to the symphysis. 5 mm coronal and sagittal reformats were acquired. For radiation dose reduction, the following was used: automated exposure control, adjustment of mA and/or kV according to patient size. COMPARISON: [facility], CT, CT ABDOMEN PELVIS W CON, 11/20/2017, 5:16. FINDINGS: Image quality: Excellent. ABDOMEN: Lung bases: Lung bases are clear. Heart size is normal. Solid organs: Liver is normal in size and enhancement. Gallbladder appears normal. Biliary system is non dilated. Pancreas enhances normally. Spleen is normal in size and enhancement. No adrenal nodules. Kidneys demonstrate normal size and enhancement, without hydronephrosis. Peritoneum and bowel: Bowel loops demonstrate normal wall thickness and caliber. No free fluid or air. Nodes and vessels: No retroperitoneal or mesenteric adenopathy by size criteria. Aorta and inferior vena cava are normal in size. Miscellaneous: No ventral hernias. PELVIS: Genitourinary: Bladder wall thickness is normal. Miscellaneous: No inguinal hernias or adenopathy. Normal appendix right lower quadrant. Moderate diverticulosis without acute diverticulitis. Bones: No suspicious bony lesions. No vertebral body compression fractures. IMPRESSION: Normal appendix out, source of her pain is not seen. No evidence of intestinal pneumatosis at this time. Moderate diverticulosis over the sigmoid colon but without acute diverticulitis. Dictated by: Jacobo De Anda M.D. on 12/31/2017 at 15:39 ECG Data Attestation: I personally reviewed and interpreted this ECG as follows: Prior ECG tracings: not available for review Interpretation: Sinus rhythm rate [address] changes, no T-wave in inversions similar to prior MDM Narrative Medical decision making narrative: Patient has no evidence of pancreatitis on CT or by blood work blood work is within normal limits. CT does not show any bowel obstruction. He is tolerating overall feeling much better. Ready and able to go home Discharge Plan Departure Patient Disposition: Home Clinical Impression: Vomiting Discharge Date/Time: 12/31/17 16:21 Interventions: ED Discharge Assessment Last Done: 12/31/17 16:21 Instructions: DI for Vomiting -- Adult Activity Restrictions/Additional Instructions: 1) You have been diagnosed with vomiting Blood work and CT scan today are reassuring no sign of bowel obstruction or pancreatitis 2) What to do: Drink frequent but small amounts of fluids. I recommend Gatorade or a Gatorade-like product, as it has small amounts of sugar and salts that improve fluid retention. 3) Take medications as directed 4) Follow up with your primary care provider in 2-3 days 5) Return to ER if you should have any new or worsening symptoms such as, unable to hold down fluids despite use of anti-nausea medications and the small volume oral rehydration strategy. Prescriptions: No Action clopidogrel 75 mg Tablet 75 mg PO Q DAY Qty: 0 RF: 0 diclofenac sodium [Voltaren] 1 % gel 1 crys Topical PRN PRN (Reason: Analgesia) Qty: 0 RF: 0 ondansetron [Zofran ODT] 4 MG tablet,disintegrating 4 mg Sublingual Q6HP PRNQty: 10 RF: 0 lisinopril 20 mg Tablet 20 mg PO DAILY RF: 0 omeprazole 40 mg Capsule,Delayed Release(Dr/Ec) 40 mg PO BID RF: 0 metoprolol tartrate 50 mg Tablet 50 mg PO BID RF: 0 oxycodone 5 mg Tablet 5 mg PO PRN PRN (Reason: Pain, Severe) RF: 0 insulin aspart U-100 [Novolog Flexpen U-100 Insulin] 100 unit/mL Insulin Pen 5 unit Sub-Q DIRECTED RF: 0 insulin glargine [Lantus Solostar U-100 Insulin] 100 unit/mL (3 mL) Insulin Pen 15 unit SUB-Q BID RF: 0 qqkylj-zkygrkgj-dybpkrc [Creon] 6,000-19,000 -30,000 unit Capsule,Delayed Release(Dr/Ec) 1 cap PO DIRECTED RF: 0 aadiqo-qpwxgtjy-gvwquwe [Creon] 36,000-114,000- 180,000 unit Capsule,Delayed Release(Dr/Ec) 1 cap PO DIRECTED RF: 0 promethazine 25 MG tablet 25 mg PO Q6HP PRN (Reason: Nausea) RF: 0 cholecalciferol (vitamin D3) [Vitamin D3] 1,000 unit Capsule 1,000 unit PO TID RF: 0 acetaminophen 325 MG tablet 325 mg PO Q4HP PRN (Reason: Pain, Mild) RF: 0 promethazine [Phenergan] 25 mg suppository 25 mg NC Q6H PRN (Reason: nausea and vomiting) Qty: 10 RF: 0 Referrals: Jacobo Ochoa MD [Primary Care Provider] -
[2017-12-31] MEDS: methylPREDNISolone 125 MG/2 ML VIAL IV (15:12)
[2017-12-31] MEDS: diphenhydrAMINE 50 MG/ML VIAL 25 MG IV (15:12)
[2017-12-31 15:34] VITALS: BP 125/52; PULSE 88; O2SAT 100
--- NOTE | 2018-01-03 17:14 | PC.NURSE ---
follow up call, pt feeling much better, satisfied pt got hydrated and given compazine. no questions and no improvement in service needed. pt satisfied .
== END 2017-12-31 16:21 | disposition home or self-care (01) ==
PROVIDERS: Emergency Provider Emergency Medicine; Family Provider Emergency Medicine Emergency Medical Services; PCP Emergency Medicine Emergency Medical Services
DX: R11.10 Vomiting, unspecified (principal)
CPT/HCPCS: 36591; 74177; 80053; 83690; 85025; 85610; 85730; 93005; 96361; 96374; 96375; 99283; 99285; J0780; J1170; J1200; J2405; J2930; Q9967

== ENCOUNTER 2018-03-23 23:34 | Inpatient (IN) | payer OTHER, SELFPAY ==
[2018-03-23 23:45] VITALS: BP 122/74; PULSE 109; RESP 21; TEMP 36.9; O2SAT 100; BMI 26.1
[2018-03-24] VITALS (14 sets, daily range): BP systolic 96–140; BP diastolic 47–85; PULSE 83–110; RESP 12–25; TEMP 36.3–37.1; O2SAT 94–102; BMI 26.7
--- NOTE | 2018-03-24 00:08 | ED_ITS ---
HPI - Nausea/Vomiting/Diarrhea General Chief complaint: Nausea/Vomiting/Diarrhea Stated complaint: Nausea, Vomiting ABD Pain Time Seen by Provider: 03/23/18 23:40 Source: patient and EMS Mode of arrival: EMS Limitations: no limitations History of Present Illness HPI Narrative: 63-year-old former smoker presents by EMS for evaluation of severe abdominal pain with nausea, vomiting and diarrhea. The patient has significant abdominal history including the diagnosis of pneumatosis intestinalis earlier this summer with subsequent aeromedical transport to [facility]. Patient ended up having a large abdominal surgery but required no bowel resection. Patient presents with multiple episodes of nausea , vomiting today followed by generalized abdominal pain e has been unable to keep any of his medications down which is worsening his symptoms. He denies any fever or chills. He denies any recent antibiotics or travel. MD complaint: nausea, vomiting, diarrhea and abdominal pain Onset (ago): hour(s) Description of Vomiting: food contents Description of Diarrhea: watery Associated Abdominal Pain: Yes Location of pain: diffuse Radiation: diffuse Severity: severe Quality: cramping, stabbing and aching Pain Consistency: constant Relieving factors: none Exacerbating factors: none Related Data Home Medications Medication Instructions Recorded Confirmed clopidogrel 75 mg PO Q DAY #0 04/15/08 01/21/18 diclofenac sodium [Voltaren] 1 crys TOPICAL PRN PRN #0 03/14/17 01/21/18 insulin aspart U-100 [Novolog 5 unit SUB-Q DIRECTED 08/17/17 01/21/18 Flexpen U-100 Insulin] insulin glargine [Lantus Solostar 15 unit SUB-Q BID 08/17/17 01/21/18 U-100 Insulin] colqah-vqipbwgf-bkjappd [Creon] 1 cap PO DIRECTED 08/17/17 01/21/18 [id number]-[id number]-drfbdkx [Creon] 1 cap PO DIRECTED 08/17/17 01/21/18 lisinopril 20 mg PO DAILY 08/17/17 01/21/18 metoprolol tartrate 50 mg PO BID 08/17/17 01/21/18 omeprazole 40 mg PO BID 08/17/17 01/21/18 oxycodone 5 mg PO PRN PRN 08/17/17 01/21/18 promethazine 25 mg PO Q6HP PRN 08/17/17 01/21/18 acetaminophen 325 mg PO Q4HP PRN 09/25/17 01/21/18 cholecalciferol (vitamin D3) 1,000 unit PO TID 09/25/17 01/21/18 [Vitamin D3] Previous Rx's Medication Instructions Recorded ondansetron [Zofran ODT] 4 mg SUBLINGUAL Q6HP PRN #10 odt 03/19/17 promethazine [Phenergan] 25 mg FL Q6H PRN #10 each 09/25/17 methylphenidate 20 mg tablet 20 mg PO TID #90 tab 03/21/18 Allergies Allergy/AdvReac Type Severity Reaction Status Date / Time Iodine and Iodide Containing Allergy Unknown Verified 01/21/18 14:06 Produc [IODINE AND IODIDE CONTAINING PRODUC] Sulfa (Sulfonamide Allergy Unknown Verified 01/21/18 14:06 Antibiotics) [SULFA (SULFONAMIDE ANTIBIOTICS)] Review of Systems Review of Systems All systems reviewed & are unremarkable except as noted in HPI and below Constitutional Denies chills, Denies fever(s), Denies lethargy and Denies weakness Eyes Denies change in vision, Denies eye discharge, Denies irritation and Denies loss of vision ENT Ears, Nose, Mouth, and Throat: Denies change in voice, Denies neck pain and Denies sore throat Cardiovascular Denies chest pain, Denies irregular heart rhythm, Denies lightheadedness, Denies palpitations, Denies dyspnea, Denies dyspnea on exertion and Denies orthopnea Respiratory Denies cough, Denies dyspnea, Denies dyspnea on exertion and Denies wheezing Gastrointestinal Gastrointestinal: Denies abdominal pain, Denies change in bowel habits, Denies diarrhea, Denies nausea and Denies vomiting Genitourinary Denies hematuria, Denies flank pain, Denies urinary incontinence and Denies urinary urgency Musculoskeletal Denies neck pain Integumentary/Breasts Denies pruritus, Denies erythema, Denies rash and Denies wounds Neurologic Denies confusion, Denies loss of vision and Denies weakness Psychiatric Denies anxiety, Denies confusion, Denies depression, Denies homicidal ideation and Denies suicidal ideation Endocrine Denies palpitations Hematologic/Lymphatic Denies easy bruising Allergic/Immunologic Denies wheezing PFSH Medical History GERD (gastroesophageal reflux disease) (Chronic) HTN (hypertension) (Chronic) Hyperlipidemia (Chronic) 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) Narcolepsy (Chronic) Paroxysmal atrial fibrillation (Chronic) Peripheral vascular disease (Chronic) Psoriasis (Chronic) Surgical History H/O exploratory laparotomy (Acute) Social History Smoking Status: Former smoker Exam Narrative Exam Narrative: 63-year-old male in obvious distress, holding an emesis bag and clutching his abdomen Initial Vital Signs Initial Vital Signs: Vital Signs Temperature 98.4 F 03/23/18 23:45 Pulse Rate 109 H 03/23/18 23:45 Respiratory Rate 21 03/23/18 23:45 Blood Pressure 122/74 03/23/18 23:45 Pulse Oximetry 100 03/23/18 23:45 Const General: cooperative, well developed and in distress Nutritional Appearance: well nourished Orientation: alert, awake, oriented x3 and not confused HENNM Head: normocephalic Ears: external ears normal Nose: external nose normal Face and sinus: sinuses nontender Mouth: moist mucous membranes Teeth and gingiva: dentition normal Eyes General: appearance normal, both eyes and all related structures Eyelids: eyelids normal Conjunctivae: conjunctivae normal Sclera: sclerae normal Pupils: PERRL EOM: EOM intact bilaterally Chest Chest: normal inspection of the chest Cardio Rate: regular rate Rhythm: regular rhythm Heart Sounds: no click, no gallops, no murmurs and no rubs Pulses: normal peripheral pulses GI Inspection: non-distended Palpation: soft, no hepatosplenomegaly, No guarding, No pulsatile mass and tender Auscultation: normal bowel sounds Back/Spine/Pelvis Back: No CVA tenderness Cervical Spine: cervical ROM normal and No pain with cervical ROM Thoracic/Lumbar Spine: thoracic and lumbar spine normal to inspection Neuro General: alert, oriented x3, gait normal and no focal motor deficits Speech: speech normal Psych Appearance: well kempt Mental Status: mental status grossly normal Attitude: cooperative Thought Content: normal and suicidality Judgment: judgment good Scores qSOFA Altered Mental Status (GCS <15): No Respiratory rate greater than/equal to 22: Yes Systolic blood pressure less than or equal to 100: No qSOFA Total: 1 0-1 Not High Risk 1-3 High risk Course Orders Ordered: ED Orders 03/23/18 23:41 Complete Blood Count AUTO DIFF Stat Comprehensive Metabolic Panel Stat Lactate (Lactic Acid) Stat Procalcitonin Stat 03/24/18 00:01 Lipase Stat 03/24/18 01:02 CT abdomen pelvis w con Stat Piperacillin/Tazobactam/Dextrose (Zosyn) 3.375 gm in 50 mls @ 100 mls/hr IV NOW ONE Stop: 03/24/18 03:56 Last Admin: 03/24/18 03:43 Dose: 100 mls/hr Discontinued Medications Diphenhydramine HCl (Benadryl) 25 mg IV NOW ONE Stop: 03/24/18 01:08 Last Admin: 03/24/18 01:23 Dose: 25 mg Hydromorphone HCl (Dilaudid) 1 mg IV NOW ONE Stop: 03/23/18 23:55 Last Admin: 03/24/18 00:30 Dose: 1 mg Sodium Chloride (Normal Saline 0.9%) 1,000 mls @ 1,000 mls/hr IV BOLUS ONE Stop: 03/24/18 00:41 Last Infusion: 03/24/18 02:10 Dose: 0 mls/hr Admin: 03/24/18 00:31 Dose: 1,000 mls/hr Sodium Chloride (Normal Saline 0.9%) 1,000 mls @ 1,000 mls/hr IV BOLUS ONE Stop: 03/24/18 02:01 Last Infusion: 03/24/18 03:10 Dose: 0 mls/hr Admin: 03/24/18 02:10 Dose: 1,000 mls/hr Sodium Chloride (Normal Saline 0.9%) 1,000 mls @ 1,000 mls/hr IV BOLUS ONE Stop: 03/24/18 03:31 Last Admin: 03/24/18 03:14 Dose: 1,000 mls/hr Methylprednisolone (Solu-Medrol 125 Mg Vial) 125 mg IV NOW ONE Stop: 03/24/18 01:08 Last Admin: 03/24/18 01:23 Dose: 125 mg Prochlorperazine (Compazine) 10 mg IV NOW ONE Stop: 03/23/18 23:55 Last Admin: 03/24/18 00:30 Dose: 10 mg Reevaluation(s) Reevaluation #1: patient feeling much better after the above. Initial vitals not of significant concern. Not tachycardic, febrile or hypotensive. Upon receipt of elevated lactate at 0042 fluids were increased to goal of 30mL/kg ( 2460mL), but some delays as fluids were stopped while patient away (extended time period) for CT and again during repeat lab draw. There is consideration as well of the pain and ongoing N/V due to possible early narcotic withdrawal as he could not keep his routine pain meds down Reevaluation #2: lactate of 4.0 at 0000 and Consultations Consultation #1: call to Dr. Wilburn regarding history, physical, labs and CT. She is in agreement with admission, but recommends admission to medical team with her as webmethods consultant given lack of obvious surgical findings Vital Signs - 8 hr 03/23/18 23:45 03/24/18 00:30 03/24/18 03:22 Temperature 98.4 F Pulse Rate 109 H 107 H 100 H Respiratory Rate 21 25 H Blood Pressure 122/74 102/62 Blood Pressure [Right Arm] 102/75 Pulse Oximetry 100 100 03/24/18 03:49 03/24/18 03:50 Temperature Pulse Rate 110 H Respiratory Rate 24 Blood Pressure Blood Pressure [Right Arm] 96/47 L 109/58 L Pulse Oximetry 97 MDM - Nausea/Vomiting/Diarrhea Lab Data Result diagrams: 03/23/18 00:00 03/23/18 00:00 Lab Results 03/23/18 03/23/18 03/23/18 Range/Units 00:00 00:00 00:00 WBC 16.3 H (4.5-11.0) X10^3/uL RBC 5.73 (4.5-5.9) X10^6/uL Hgb 16.9 (13.5-17.5) g/dL Hct 50.9 (41-53) % MCV 88.7 (80-100) fL MCH 29.6 (26-34) PG MCHC 33.3 (30-36) % RDW 14.1 (11.6-14.8) % Plt Count 318 (150-400) X10^3/uL Neut % (Auto) 91.5 H (50-75) % Lymph % (Auto) 2.0 L (25-40) % [place] % (Auto) 6.0 (3-14) % Eos % (Auto) 0.3 L (2-4) % Baso % (Auto) 0.2 (0-2) % Neut # (Auto) 14505 H (1164-1955) /uL Sodium 146 H (137-145) mmol/L Potassium 3.9 (3.4-5.1) mmol/L Chloride 104 (98-107) mmol/L Carbon Dioxide 23 (22-32) mmol/L BUN 15 (9-20) mg/dL Creatinine 1.50 H (0.66-1.25) mg/dL Estimated GFR 47.3 L (>60) mL/min BUN/Creatinine Ratio 10.0 (6-22) Glucose 201 H (80-110) mg/dL Lactate (0.7-2.1) mmol/L Calcium 10.5 H (8.4-10.2) mg/dL Total Bilirubin 0.7 (0.2-1.3) mg/dL AST 37 (17-59) IU/L ALT 41 (21-72) IU/L Alkaline Phosphatase 91 (38-126) U/L Total Protein 8.4 H (6.3-8.2) g/dL Albumin 5.4 H (3.5-5.0) g/dL Globulin 3.0 (1.7-4.1) g/dL Albumin/Globulin Ratio 1.8 (1.0-2.8) Lipase (23-300) U/L Procalcitonin 53.41 H (<0.5) ng/mL 03/23/18 03/24/18 Range/Units 00:00 00:01 WBC (4.5-11.0) X10^3/uL RBC (4.5-5.9) X10^6/uL Hgb (13.5-17.5) g/dL Hct (41-53) % MCV (80-100) fL MCH (26-34) PG MCHC (30-36) % RDW (11.6-14.8) % Plt Count (150-400) X10^3/uL Neut % (Auto) (50-75) % Lymph % (Auto) (25-40) % [place] % (Auto) (3-14) % Eos % (Auto) (2-4) % Baso % (Auto) (0-2) % Neut # (Auto) (2277-5621) /uL Sodium (137-145) mmol/L Potassium (3.4-5.1) mmol/L Chloride (98-107) mmol/L Carbon Dioxide (22-32) mmol/L BUN (9-20) mg/dL Creatinine (0.66-1.25) mg/dL Estimated GFR (>60) mL/min BUN/Creatinine Ratio (6-22) Glucose (80-110) mg/dL Lactate 4.0 H (0.7-2.1) mmol/L Calcium (8.4-10.2) mg/dL Total Bilirubin (0.2-1.3) mg/dL AST (17-59) IU/L ALT (21-72) IU/L Alkaline Phosphatase (38-126) U/L Total Protein (6.3-8.2) g/dL Albumin (3.5-5.0) g/dL Globulin (1.7-4.1) g/dL Albumin/Globulin Ratio (1.0-2.8) Lipase 82 (23-300) U/L Procalcitonin (<0.5) ng/mL Discharge Plan Departure Patient Disposition: Admitted As Inpatient Clinical Impression: Abdominal pain
[2018-03-24] MEDS: PROCHLORPERAZINE 10 MG/2 ML VIAL IV (00:30)
[2018-03-24] MEDS: HYDROMORPHONE 1 MG INJ IV ×2 (00:30→14:50)
[2018-03-24] MEDS: SODIUM CHLORIDE 0.9% 1,000 ML 1000 ML IV ×3 (00:31→03:14)
[2018-03-24 00:41] LABS: Add Manual Diff / Slide Review NO; Alanine Aminotransferase 41 IU/L (21-72); Albumin 5.4 g/dL (3.5-5.0); Albumin Globulin Ratio 1.8 (1.0-2.8); Alkaline Phosphatase 91 U/L (38-126); Aspartate Aminotransferase 37 IU/L (17-59); Basophils Percent Auto 0.2 % (0-2); Bilirubin Total 0.7 mg/dL (0.2-1.3); Blood Urea Nitrogen 15 mg/dL (9-20); Calcium 10.5 mg/dL (8.4-10.2); Carbon Dioxide 23 mmol/L (22-32); Chloride 104 mmol/L (98-107); Eosinophils Percent Auto 0.3 % (2-4); Estimated Glomerular Filt Rate 47.3 mL/min (>60); Glucose 201 mg/dL (80-110); HEMOLYSIS < 15 (0-50); Hematocrit 50.9 % (41-53); Hemoglobin 16.9 g/dL (13.5-17.5); Mean Corpuscular HGB Conc 33.3 % (30-36); Mean Corpuscular Hemoglobin 29.6 PG (26-34); Mean Corpuscular Volume 88.7 fL (80-100); Neutrophils Absolute Auto 14900 /uL (1500-7000); Neutrophils Percent Auto 91.5 % (50-75); Platelet Count 318 X10^3/uL (150-400); Potassium 3.9 mmol/L (3.4-5.1); Red Blood Cell Count 5.73 X10^6/uL (4.5-5.9); Red Cell Distribution Width 14.1 % (11.6-14.8); Sodium 146 mmol/L (137-145); Total Protein 8.4 g/dL (6.3-8.2); White Blood Cell Count 16.3 X10^3/uL (4.5-11.0)
--- NOTE | 2018-03-24 01:02 | DI.CT.S_ITS ---
PROCEDURE: CT ABDOMEN PELVIS W CON INDICATIONS: severe abdominal pain, extensive surgical history TECHNIQUE: After the administration of intravenous contrast, 5 mm thick sections acquired from the diaphragm to the symphysis. 5 mm coronal and sagittal reformats were acquired. For radiation dose reduction, the following was used: automated exposure control, adjustment of mA and/or kV according to patient size. COMPARISON: [facility], CT, CT ABDOMEN PELVIS W CON, 12/31/2017, 15:12. [facility], CT, CT ABDOMEN PELVIS W CON, 11/20/2017, 5:16. FINDINGS: Image quality: Excellent. ABDOMEN: Lung bases: Lung bases are clear. Heart size is normal. Solid organs: Liver is normal in size and enhancement. Gallbladder is unremarkable. Biliary system is non dilated. Pancreas enhances normally. Spleen is normal in size and enhancement. There is a 1.1 cm oval nodule arising from the left adrenal gland measures has fat attenuation (-9 Hounsfield units), consistent with an adrenal adenoma. Kidneys demonstrate normal size and enhancement, without hydronephrosis. Mild bilateral perinephric fat stranding. Peritoneum and bowel: Bowel loops demonstrate normal wall thickness and caliber. No free fluid or air. Normal appendix. Nodes and vessels: No retroperitoneal or mesenteric adenopathy by size criteria. Aorta and inferior vena cava are normal in size. Moderate calcified plaque of the abdominal aorta and branch vessels. Miscellaneous: No ventral hernias. PELVIS: Genitourinary: Bladder wall thickness is normal. Miscellaneous: No inguinal hernias or adenopathy. Bones: Moderate multilevel degenerative changes of the spine. IMPRESSION: Colonic diverticulosis without evidence of acute diverticulitis. This report is concordant with the overnight preliminary [facility] radiology report of Dr. Adi Egan. Dictated by: Erick Spence M.D. on 03/25/2018 at 0:01 Approved by: Erick Spence M.D. on 03/25/2018 at 0:10
[2018-03-24 01:03] LABS: Procalcitonin 53.41 ng/mL (<0.5)
[2018-03-24] MEDS: methylPREDNISolone 125 MG/2 ML VIAL IV (01:23)
[2018-03-24] MEDS: diphenhydrAMINE 50 MG/ML VIAL 25 MG IV ×2 (01:23→21:26)
[2018-03-24 03:10] LABS: Lipase 82 U/L (23-300)
[2018-03-24] MEDS: PIPERACILLIN-TAZO 3.375 GM/50 ML FROZ.PIGGY IV (03:43)
[2018-03-24 04:20] LABS: Reflexed Lactate in 2 Hours Y
[2018-03-24 04:37] LABS: Lactate 2HR (Lactic Acid Rflx) 1.8 mmol/L (0.7-2.1)
[2018-03-24] MEDS: SODIUM CHLORIDE 0.9% 1,000 ML 125 ML IV (05:04)
[2018-03-24] MEDS: metroNIDAZOLE 500 MG/100 ML PIGGYBACK 100 MG IV ×3 (05:29→21:26)
[2018-03-24] MEDS: HYDROMORPHONE PCA 6 MG/30 ML PCA.VIAL IV (05:33)
[2018-03-24 10:12] LABS: Bacteria Urine None Seen; RBC Urine None Seen (0-5/HPF); WBC Urine None Seen (0-5/HPF)
[2018-03-24 10:13] LABS: Appearance Urine UA CLEAR; Bilirubin Urine UA NEGATIVE (NEGATIVE); Color Urine UA YELLOW; Glucose Urine UA 2+ g/dL (Negative); Ketones Urine UA NEGATIVE (NEGATIVE); Leukocyte Esterase Urine UA NEGATIVE (NEGATIVE); Nitrite Urine UA NEGATIVE (Negative); Occult Blood Urine UA NEGATIVE (Negative); Protein Urine UA NEGATIVE (Negative); Urobilinogen Urine UA 0.2 E.U./dL (0.2)
[2018-03-24 10:24] LABS: Culture Indicated Urine Cult Not Indicated; Urine Comments Microscopic Normal
[2018-03-24 11:18] LABS: Add Manual Diff / Slide Review NO; Basophils Percent Auto 0.5 % (0-2); Hematocrit 42.4 % (41-53); Hemoglobin 14.1 g/dL (13.5-17.5); Lymphocytes Percent Auto 5.5 % (25-40); Mean Corpuscular HGB Conc 33.2 % (30-36); Mean Corpuscular Hemoglobin 29.4 PG (26-34); Mean Corpuscular Volume 88.6 fL (80-100); Monocytes Percent Auto 1.6 % (3-14); Neutrophils Absolute Auto 8700 /uL (1500-7000); Neutrophils Percent Auto 92.4 % (50-75); Platelet Count 228 X10^3/uL (150-400); Red Blood Cell Count 4.79 X10^6/uL (4.5-5.9); Red Cell Distribution Width 14.1 % (11.6-14.8); White Blood Cell Count 9.5 X10^3/uL (4.5-11.0)
[2018-03-24 11:28] LABS: Alanine Aminotransferase 34 IU/L (21-72); Albumin 4.2 g/dL (3.5-5.0); Albumin Globulin Ratio 1.8 (1.0-2.8); Alkaline Phosphatase 57 U/L (38-126); Aspartate Aminotransferase 22 IU/L (17-59); BUN Creatinine Ratio 18.9 (6-22); Bilirubin Total 0.4 mg/dL (0.2-1.3); Blood Urea Nitrogen 17 mg/dL (9-20); Calcium 8.9 mg/dL (8.4-10.2); Carbon Dioxide 21 mmol/L (22-32); Chloride 110 mmol/L (98-107); Estimated Glomerular Filt Rate > 60.0 mL/min (>60); Globulin 2.3 g/dL (1.7-4.1); Glucose 260 mg/dL (80-110); HEMOLYSIS < 15 (0-50); Potassium 4.5 mmol/L (3.4-5.1); Sodium 143 mmol/L (137-145); Total Protein 6.5 g/dL (6.3-8.2)
--- NOTE | 2018-03-24 11:43 | PM.HP.1 ---
History of Present Illness Date Patient Seen: 03/24/18 Time Patient Seen: 11:44 Chief complaint: Nausea, Vomiting ABD Pain Narrative: THIS IS A VERY PLEASANT 63-YEAR-OLD MALE WITH A PAST MEDICAL HISTORY SIGNIFICANT FOR PRIOR ABDOMINAL SURGERY IN THE FORM OF A EXPLORATORY LAP DUE TO PNEUMATOSIS INTESTINALIS PATIENT ALSO HAVE A HISTORY OF CHRONIC PANCREATITIS, HYPERLIPIDEMIA, HYPERTENSION, GERD, HD DEPENDENT DIABETES, PAROXYSMAL ATRIAL FIBRILLATION, PVD, PSORIASIS. PATIENT REPORTED HAVING A ?STOMACH BUG ABOUT 2 WEEKS AGO?. HE DENIES ANY RECENT SICK CONTACT. NO TRAVEL OUTSIDE THE COUN[place]. NO EXOTIC FOOD PRODUCTS. HE PRESENTED TO THE HOSPITAL WITH HER REPORTED SEVERE ABDOMINAL PAIN. THIS STARTED OVERNIGHT. THIS WAS ASSOCIATED WITH NAUSEA AND VOMITING. DIARRHEA WAS ALSO REPORTED. THE PAIN WAS REPORTED BEING SHARP IN NATURE. PAIN WAS REPORTED DIFFUSE. ABDOMEN WAS TENDER TO TOUCH; THE PAIN HAS SIGNIFICANTLY IMPROVED SINCE ADMISSION HE DENIES ANY FEVER. NO CHILLS. NO ADDITIONAL NAUSEA OR VOMITING SYMPTOMS REPORTED AT THIS POINT. DIARRHEA HAS STOPPED. HE HAD NO OTHER COMPLAINTS. NO SHORTNESS OF BREATH. NO CHEST PAIN. NO RECENT WEIGHT LOSS OR WEIGHT GAIN. HE HOWEVER REPORTED DECREASE IN HIS APPETITE. 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) Paroxysmal atrial fibrillation (Chronic) Peripheral vascular disease (Chronic) Psoriasis (Chronic) Surgical History H/O exploratory laparotomy (Acute) Family & Social History Family History: Reviewed 03/24/18 by Deb Martinez DO Social History: household members none Prior Living Arrangements House Safety & Behavioral: Feels Safe in Current Yes Environment Been Physically Hurt or NO Threatened By a Person Suicidal Ideation Description None Tobacco & Substance use: Smoking Status Former smoker alcohol intake frequency 0-2 drinks per day Substance Use Type does not use Meds Home Medications Medication Instructions Recorded Confirmed Type clopidogrel 75 mg PO Q DAY #0 04/15/08 03/24/18 History diclofenac sodium [Voltaren] 1 crys TOPICAL PRN PRN #0 03/14/17 03/24/18 History ondansetron [Zofran ODT] 4 mg SUBLINGUAL Q6HP PRN #10 odt 03/19/17 03/24/18 Rx insulin aspart U-100 [Novolog 5 unit SUB-Q DIRECTED 08/17/17 03/24/18 History Flexpen U-100 Insulin] insulin glargine [Lantus Solostar 18 unit SUB-Q BID 08/17/17 03/24/18 History U-100 Insulin] imacum-sqqforgz-qfhvvmk [Creon] 1 cap PO DIRECTED 08/17/17 03/24/18 History hppjgm-urnosbds-rnvwxkp [Creon] 1 cap PO DIRECTED 08/17/17 03/24/18 History lisinopril 20 mg PO DAILY 08/17/17 03/24/18 History metoprolol tartrate 50 mg PO BID 08/17/17 03/24/18 History omeprazole 40 mg PO BID 08/17/17 03/24/18 History oxycodone 5 mg PO PRN PRN 08/17/17 03/24/18 History promethazine 25 mg PO Q6HP PRN 08/17/17 03/24/18 History acetaminophen 325 mg PO Q4HP PRN 09/25/17 03/24/18 History cholecalciferol (vitamin D3) 1,000 unit PO BID 09/25/17 03/24/18 History [Vitamin D3] promethazine [Phenergan] [address] Q6H PRN #10 each 09/25/17 03/24/18 Rx methylphenidate 20 mg tablet 20 mg PO TID #90 tab 03/21/18 03/24/18 Rx Allergies Allergy/AdvReac Type Severity Reaction Status Date / Time Iodine and Iodide Containing Allergy Severe Anaphylaxis Verified 03/24/18 04:45 Produc [IODINE AND IODIDE CONTAINING PRODUC] Sulfa (Sulfonamide Allergy Severe Anaphylaxis Verified 03/24/18 04:46 Antibiotics) [SULFA (SULFONAMIDE ANTIBIOTICS)] Review of Systems Review of Systems All systems reviewed & are unremarkable except as noted in HPI and below Exam Vital Signs (past 8 hours): - 03/24/18 03:49 03/24/18 03:50 03/24/18 04:24 Temperature Pulse Rate 110 H 99 H Respiratory Rate 24 18 Blood Pressure Blood Pressure [Right Arm] 96/47 L 109/58 L 100/62 Pulse Oximetry 97 102 H 03/24/18 04:41 03/24/18 08:23 03/24/18 09:30 Temperature 98.7 F 97.3 F L Pulse Rate 99 H 92 H 98 H Respiratory Rate 12 16 16 Blood Pressure 100/72 108/49 L 131/47 L Blood Pressure [Right Arm] Pulse Oximetry 94 95 97 Oxygen Delivery Method Room Air Oxygen Flow Rate 0 Narrative Exam Narrative: NO ACUTE DISTRESS. PATIENT IS ALERT ORIENTED X3. VITAL SIGNS STABLE HEAD ATRAUMATIC NORMOCEPHALIC NECK : SUPPLE WITHOUT ADENOPATHY NO CAROTID BRUITS EYE: EOMI, PERRLA, NORMAL CONJUNCTIVA; NO JAUNDICE CHEST: REGULAR RATE. NO RUBS. PMI IS NON DISPLACED. NO MURMURS; NORMAL S1-S2 PULMONARY: DECREASED BS OVER THE BASES. MILD BIBASILAR CRACKLES NOTED; NO INCREASED DULLNESS TO PERCUSSION ABDOMEN: SOFT. TENDER TO TOUCH. HOWEVER NON DISTENDED. SOME GUARDING NOTED; BOWEL SOUNDS ARE PRESENT IN ALL 4 QUADRANTS BUT HYPOACTIVE. NO MASS. EXTREMITIES: NO EDEMA.. NO CYANOSIS CLUBBING NOTED. NEURO: CRANIAL NERVES 2-12 GROSSLY INTACT. NO FOCAL NEUROLOGICAL DEFICIT NOTED. MSK: NORMAL RANGE OF MOTION FOR AGE. NO JOINT EFFUSION. SKIN: NORMAL FOR ETHNICITY; NO ECCHYMOSIS. NO LESION. GOOD TURGOR.; NO RASHES : NORMAL EXTERNAL GENITALIA. PSYCH : APPROPRIATE MOOD AND AFFECT. ALERT AWAKE ORIENTED X3 Objective Labs Result Diagrams: 03/24/18 10:55 03/24/18 10:55 Labs: Laboratory Results - last 24 hr 03/23/18 03/23/18 03/23/18 00:00 00:00 00:00 WBC 16.3 H RBC 5.73 Hgb 16.9 Hct 50.9 MCV 88.7 MCH 29.6 MCHC 33.3 RDW 14.1 Plt Count 318 Neut % (Auto) 91.5 H Lymph % (Auto) 2.0 L [place] % (Auto) 6.0 Eos % (Auto) 0.3 L Baso % (Auto) 0.2 Neut # (Auto) 22153 H Sodium 146 H Potassium 3.9 Chloride 104 Carbon Dioxide 23 BUN 15 Creatinine 1.50 H Estimated GFR 47.3 L BUN/Creatinine Ratio 10.0 Glucose 201 H Lactate Calcium 10.5 H Total Bilirubin 0.7 AST 37 ALT 41 Alkaline Phosphatase 91 Total Protein 8.4 H Albumin 5.4 H Globulin 3.0 Albumin/Globulin Ratio 1.8 Lipase Procalcitonin 53.41 H Urine Color Urine Appearance Urine pH Ur Specific Sargeant Urine Protein Urine Glucose (UA) Urine Ketones Urine Occult Blood Urine Nitrate Urine Bilirubin Urine Urobilinogen Ur Leukocyte Esterase Urine RBC Urine WBC Urine Bacteria Ur Culture Indicated? Micro UA Comment Nasal Screen MRSA (PCR) 03/23/18 03/24/18 03/24/18 00:00 00:01 04:15 WBC RBC Hgb Hct MCV MCH MCHC RDW Plt Count Neut % (Auto) Lymph % (Auto) [place] % (Auto) Eos % (Auto) Baso % (Auto) Neut # (Auto) Sodium Potassium Chloride Carbon Dioxide BUN Creatinine Estimated GFR BUN/Creatinine Ratio Glucose Lactate 4.0 H 1.8 Calcium Total Bilirubin AST ALT Alkaline Phosphatase Total Protein Albumin Globulin Albumin/Globulin Ratio Lipase 82 Procalcitonin Urine Color Urine Appearance Urine pH Ur Specific Sargeant Urine Protein Urine Glucose (UA) Urine Ketones Urine Occult Blood Urine Nitrate Urine Bilirubin Urine Urobilinogen Ur Leukocyte Esterase Urine RBC Urine WBC Urine Bacteria Ur Culture Indicated? Micro UA Comment Nasal Screen MRSA (PCR) 03/24/18 03/24/18 03/24/18 04:35 10:00 10:55 WBC 9.5 RBC 4.79 Hgb 14.1 Hct 42.4 MCV 88.6 MCH 29.4 MCHC 33.2 RDW 14.1 Plt Count 228 Neut % (Auto) 92.4 H Lymph % (Auto) 5.5 L [place] % (Auto) 1.6 L Eos % (Auto) 0.0 L Baso % (Auto) 0.5 Neut # (Auto) 8700 H Sodium Potassium Chloride Carbon Dioxide BUN Creatinine Estimated GFR BUN/Creatinine Ratio Glucose Lactate Calcium Total Bilirubin AST ALT Alkaline Phosphatase Total Protein Albumin Globulin Albumin/Globulin Ratio Lipase Procalcitonin Urine Color Yellow Urine Appearance Clear Urine pH 5.0 Ur Specific Sargeant 1.010 Urine Protein Negative Urine Glucose (UA) 2+ H Urine Ketones Negative Urine Occult Blood Negative Urine Nitrate Negative Urine Bilirubin Negative Urine Urobilinogen 0.2 Ur Leukocyte Esterase Negative Urine RBC None seen Urine WBC None seen Urine Bacteria None seen Ur Culture Indicated? Cult not indicated Micro UA Comment Microscopic normal Nasal Screen MRSA (PCR) Negative for mrsa 03/24/18 10:55 WBC RBC Hgb Hct MCV MCH MCHC RDW Plt Count Neut % (Auto) Lymph % (Auto) [place] % (Auto) Eos % (Auto) Baso % (Auto) Neut # (Auto) Sodium 143 Potassium 4.5 Chloride 110 H Carbon Dioxide 21 L BUN 17 Creatinine 0.90 Estimated GFR > 60.0 BUN/Creatinine Ratio 18.9 Glucose 260 H Lactate Calcium 8.9 Total Bilirubin 0.4 AST 22 ALT 34 Alkaline Phosphatase 57 Total Protein 6.5 Albumin 4.2 Globulin 2.3 Albumin/Globulin Ratio 1.8 Lipase Procalcitonin Urine Color Urine Appearance Urine pH Ur Specific Sargeant Urine Protein Urine Glucose (UA) Urine Ketones Urine Occult Blood Urine Nitrate Urine Bilirubin Urine Urobilinogen Ur Leukocyte Esterase Urine RBC Urine WBC Urine Bacteria Ur Culture Indicated? Micro UA Comment Nasal Screen MRSA (PCR) Assessment & Plan Plan: Assessment/Plan Narrative: IMPRESSION AND PLAN ABDOMINAL PAIN. WITH ELEVATED LACTIC ACID ON ADMISSION. CONSIDER COLITIS VERSUS ISCHEMIC BOWEL. HOWEVER LACTIC ACID IS BACK TO WITHIN NORMAL LIMITS AT THIS TIME. CT OF ABDOMEN DOES NOT SHOW ANY SIGN OF ISCHEMIA. HOWEVER PATIENT CONTINUED TO HAVE PAIN WITH MILD PALPATION. SURGERY WAS CONSULTED AND ASSISTANCE APPRECIATED. PAIN CONTROL FOR NOW. PATIENT NPO. LACTIC ACID WILL BE REPEATED THIS AFTERNOON. WE WILL CONSIDER REPEATING ABDOMINAL FILMS INDICATED. CONTINUE ANTIBIOTICS WITH ZOSYN AND FLAGYL FOR NOW. ADDITIONAL MANAGEMENT INDICATED CLINICALLY ELEVATED LACTIC ACID. RULE OUT ISCHEMIC BOWEL. REPEAT LEVEL IN THE EVENING. CONTINUE IV FLUID FOR NOW. LEUKOCYTOSIS. RESOLVED. PATIENT IS ON ANTIBIOTICS. CONTINUE TO FOLLOW CLOSELY. DAILY CBC TO FOLLOW METABOLIC ACIDOSIS. LIKELY RELATED TO LACTIC ACIDOSIS. CONTINUE IV FLUID FOR NOW. CONTINUE TO FOLLOW CLOSELY INSULIN INDEPENDENT DIABETES. BLOOD SUGAR IS UNCONTROLLED AT THIS TIME. WE WILL ORDER A HEMOGLOBIN A1C TO FURTHER EVALUATE. INSULIN SLIDING SCALE PATIENT WILL BE RESTARTED ON HIS HOME MEDICATION INDICATED DEHYDRATION. RESOLVED AT THIS POINT. CONTINUE CURRENT IV FLUID. MONITOR CLOSELY POSSIBLE SIRS VERSUS SEPSIS PRESENT ON ARRIVAL. CONTINUE IV FLUID. CONTINUE CURRENT ANTIBIOTICS. SOURCE IS LIKELY THE ABDOMEN; MONITOR VITALS CLOSELY HYPERTENSION PER HISTORY. NEEDED IV MEDICATION WILL BE ORDERED FOR NOW. HIS HOME MEDICATION WILL BE RESTARTED WELL PAROXYSMAL ATRIAL FIBRILLATION. RATE IS CONTROLLED AT THIS POINT. THIS IS CHRONIC IN NATURE. KEEP PATIENT ON TELE AT ALL TIMES. RESTART PATIENT ON HOME MEDICATION PVD PER HISTORY. MONITOR FOR NOW HYPERLIPIDEMIA PER HISTORY. RESTARTED ON HIS HOME MEDICATION NARCOLEPSY PER HISTORY. MONITOR CLOSELY CHRONIC PANCREATITIS. PATIENT IS NPO FOR NOW. WE WILL FOLLOW LIPASE. HOME MEDICATION WILL BE RESTARTED. OBESITY. OUTPATIENT MANAGEMENT. LIFESTYLE CHANGES. THE DURATION OF THE STAY SHOULD BE BETWEEN 2-3 DAYS TIME SPENT 45 MINS
[2018-03-24 12:25] LABS: Hemoglobin A1C% w Est Avg Glu 7.6 % (4.0-6.0)
--- NOTE | 2018-03-24 12:30 | PT.IIE ---
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 with walking boot (due to plantar fascia injury), but now he is up to 4 hr/day without walking boot for mobility Activities of Daily Living and IADL's indep. ADLs Social History Household Members none Living Arrangements House Number of Floors (Floors) Two Floors Number of Stairs To Enter/Railing? 3 SE B rails, then ~10 steps inside to get to main level B rails Home Environment High Toilet Tub/Shower Home Equipment Tub Transfer Bench Additional Social History Comment home was set up for his elderly mother (now not living with pt), pt reports handicap accessbile. Pt does have a roommate, who is retired and able to assist for small things if necessary. Pt notes that he has a L plantar fascia injury, being followed by a safety representative at the [place]; he is allowed to be out of his walking boot/splint for ADLs up to 4 hrs per day. His safety representative gave him a standing calf stretch vs. wall to perform daily. His admission here is due to severe abdominal pain, nausea, vomiting and diarrhea. He had a large abdominal surgery in the summer of 2018 @ [facility]. M2 PT-IP Current Condition Start: 03/24/18 12:37 Freq: NEEDED Status: Active Protocol: Document 03/24/18 12:30 RCC (Rec: 03/24/18 12:51 [facility] [id number]) Physical Therapy Current Condition Current Condition Evaluation Date 03/24/18 Treatment Diagnosis abdominal pain, impaired mobility Precautions Other Precautions pt self-reporting he is allowed up without walking boot on LLE up to 4 hrs/day Weight Bearing Status Weight Bearing Status Weight Bear as Tolerated M3 PT-IP Subjective Start: 03/24/18 12:37 Freq: NEEDED Status: Active Protocol: Document 03/24/18 12:30 RCC (Rec: 03/24/18 12:51 [facility] [id number]) Subjective Physical Therapy Visit Type Type Initial Evaluation Visit Start Time 12:07 Visit Stop Time 12:30 Total Visit Minutes 23 Number of REGISTER OF DEEDS Visits 0 Physical Therapy Visit Comments Patient Comments pt states the pain is much better with the SPACE CONTROLLER Patient Goals decrease pain, get home M4 PT-IP Mobility and Gait Start: 03/24/18 12:37 Freq: NEEDED Status: Active Protocol: Document 03/24/18 12:30 RCC (Rec: 03/24/18 12:51 [facility] [id number]) PT-Bed Mobility Assessment Supine to Sit Supine to Sit Independent PT-Transfer Assessment Sit to and From Stand Sit to and from Stand Standby Assistance Equipment Transfer Assistive Device None Gait Belt Orthotic/Prosthetic Devices or Brace: No Transfers Transfer Destination Bed Transfer Technique Stand Step Pivot Transfer Ability Level of Assist Standby Assistance Gait Assessment Gait Gait Assistance Required: Standby Assistance Distance (Feet) 50 Assistive Devices Assistive Device None Gait Belt Gait Deviations General Gait Pattern Antalgic Decreased Stride Length Decreased Feet Clearance Factors Limiting Gait Function Factors Limiting Gait Function Decreased Activity Tolerance Decreased Sensation Decreased Strength Limited Range of Motion Pain Comments Gait Comments slippers on PT-Balance Assessment Sitting Balance and Reactions Static Sitting Balance Ability Normal Dynamic Sitting Balance Ability Normal Standing Balance and Reactions Static Standing Balance Ability Good Dynamic Standing Balance Ability Good Device Used none M5 PT-IP Objective Assessments Start: 03/24/18 12:37 Freq: NEEDED Status: Active Protocol: Document 03/24/18 12:30 RCC (Rec: 03/24/18 12:51 [facility] [id number]) Orientation Orientation/Cognition Level of Alertness Alert Gross Range of Motion Lower Extremity ROM Assessment Left Impaired Impairments L ankle DF unable to achieve neutral (~5 deg. lacking) due to immobility Strength Lower Extremity Strength Assessment Left Impaired Comments Strength Comments L ankle not tested due to current plantar fascia injury but definite decreased push off on the L foot Coordination Assessment Gross Coordination Gross Coordination WNL Sensation Assessment Sensation Light Touch Impaired Comments Sensation Comments bilateral neuropathy M6 PT-IP Treatment Start: 03/24/18 12:37 Freq: NEEDED Status: Active Protocol: Document 03/24/18 12:30 RCC (Rec: 03/24/18 12:51 [facility] [id number]) Physical Therapy Treatment Other Treatments Other Treatment Performed gastroc stretch with gait belt in bed M7 PT-IP Assessment and Plan Start: 03/24/18 12:37 Freq: NEEDED Status: Active Protocol: Document 03/24/18 12:30 RCC (Rec: 03/24/18 12:51 [facility] [id number]) PT Summary Assessment and Plan Potential Rehabilitation Potential Good Status of Condition at Evaluation Stable Summary Impairments Pain Strength Transfers Gait Activity Tolerance Assessment Summary Pt limited with mobility today given he is weaning out of walking boot due to a plantar fascia injury to the L foot. His pain was well controlled this session, but did use SPACE CONTROLLER x1 after ambulation. Pt's L foot unable to clear the ground given lack of DF due to immobility in walking boot. At this time, pt appears likely to be able to d/c home when medically stable, but likely more of a medical and pain management call vs. mobility. He will need to be able to tolerate stair management prior to d/c to be cleared by PT. Goals Bed Mobility Goal Independent Transfer Goal Independent Gait Goal Standby Assistance Gait Distance 150 Other Goals up/down 10 steps with B rails and CGA Days to Meet Goals 5 Frequency of Treatment Frequency Of Treatment Once a Day Treatment Plan Physical Therapy Treatment Plan Transfer Training Gait Training Therapeutic Exercise Balance Retraining Discharge Planning Hot or Cold Pack Neuromuscular Re-ed Other Recommendations and Next Treatment progress gait as tolerated ( Focus limited by L foot), stair training prior to d/c. Recommendations To Nursing Amount of Assist Needed 1 Person Assist Discharge Recommendations PT Discharge Recommendations Home with Assistance Outpatient PT Other Discharge Recommendations OP PT when deemed necessary by [facility] safety representative.
[2018-03-24] MEDS: AMPICILLIN/SULBACTAM 1.5 GM 1.5 GM in SODIUM CHLORIDE 0.9% 100 ML IV ×2 (12:47→18:43)
[2018-03-24] MEDS: OXYCODONE IR 5 MG TABLET PO ×2 (12:49→18:43)
--- NOTE | 2018-03-24 13:28 | PM.HP.1 ---
History of Present Illness Date Patient Seen: 03/24/18 Time Patient Seen: 09:34 Chief complaint: Nausea, Vomiting ABD Pain Narrative: Very pleasant 63-year-old gentleman who is somewhat known to us from prior visits. He has a history of having come to our emergency room in October with pneumatosis intestinalis. He was transferred to [facility] where he underwent exploratory laparotomy with what sounds like a de torsion of his bowel. He did not have a bowel resection. He has a history of chronic pancreatitis and abdominal pain. He reports that he can usually feel ?an episode? coming on and he can sometimes aborted by taking Phenergan suppositories and oxycodone. This particular episode of abdominal pain was associated with significant nausea vomiting and diarrhea. He was not able to hold his suppositories in order to keep his oxycodone down in order to control his discomfort. He presented to the Emergency Room dehydrated having not urinated in quite some time and in fact although he was hydrated overnight he was here for more than 12 hr before he urinated even once. He reports that he is feeling much much better now. His lactate was notably high at admission at 4 and so was his white blood cell count but is improving at this time. Says that his pain is minimal at this time. He has been admitted to the medicine service and I am a field consultant. 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) Paroxysmal atrial fibrillation (Chronic) Peripheral vascular disease (Chronic) Psoriasis (Chronic) Surgical History H/O exploratory laparotomy (Acute) Family & Social History Family History: Reviewed 03/24/18 by Columba Wilburn MD Social History: household members none Prior Living Arrangements House Safety & Behavioral: Feels Safe in Current Yes Environment Been Physically Hurt or Yes Threatened By a Person Suicidal Ideation Description None Tobacco & Substance use: Smoking Status Former smoker alcohol intake frequency 0-2 drinks per day Substance Use Type does not use Meds Home Medications Medication Instructions Recorded Confirmed Type clopidogrel 75 mg PO Q DAY #0 04/15/08 03/24/18 History diclofenac sodium [Voltaren] 1 crys TOPICAL PRN PRN #0 03/14/17 03/24/18 History ondansetron [Zofran ODT] 4 mg SUBLINGUAL Q6HP PRN #10 odt 03/19/17 03/24/18 Rx insulin aspart U-100 [Novolog 5 unit SUB-Q DIRECTED 08/17/17 03/24/18 History Flexpen U-100 Insulin] insulin glargine [Lantus Solostar 18 unit SUB-Q BID 08/17/17 03/24/18 History U-100 Insulin] fwyekw-rspjaycp-bzbijal [Creon] 1 cap PO DIRECTED 08/17/17 03/24/18 History ehrwrd-aeykkzqu-fzintvi [Creon] 1 cap PO DIRECTED 08/17/17 03/24/18 History lisinopril 20 mg PO DAILY 08/17/17 03/24/18 History metoprolol tartrate 50 mg PO BID 08/17/17 03/24/18 History omeprazole 40 mg PO BID 08/17/17 03/24/18 History oxycodone 5 mg PO PRN PRN 08/17/17 03/24/18 History promethazine 25 mg PO Q6HP PRN 08/17/17 03/24/18 History acetaminophen 325 mg PO Q4HP PRN 09/25/17 03/24/18 History cholecalciferol (vitamin D3) 1,000 unit PO BID 09/25/17 03/24/18 History [Vitamin D3] promethazine [Phenergan] [address] Q6H PRN #10 each 09/25/17 03/24/18 Rx methylphenidate 20 mg tablet 20 mg PO TID #90 tab 03/21/18 03/24/18 Rx Allergies Allergy/AdvReac Type Severity Reaction Status Date / Time Iodine and Iodide Containing Allergy Severe Anaphylaxis Verified 03/24/18 04:45 Produc [IODINE AND IODIDE CONTAINING PRODUC] Sulfa (Sulfonamide Allergy Severe Anaphylaxis Verified 03/24/18 04:46 Antibiotics) [SULFA (SULFONAMIDE ANTIBIOTICS)] Review of Systems Review of Systems All systems reviewed & are unremarkable except as noted in HPI and below Exam Vital Signs (past 8 hours): - 03/24/18 08:23 03/24/18 09:30 03/24/18 12:00 Temperature 97.3 F L 98.8 F Pulse Rate 92 H 98 H 102 H Respiratory Rate 16 16 16 Blood Pressure 108/49 L 131/47 L 122/65 Pulse Oximetry 95 97 95 03/24/18 12:35 Temperature Pulse Rate Respiratory Rate Blood Pressure Pulse Oximetry 97 Oxygen Delivery Method Room Air Oxygen Flow Rate 0 Narrative Exam Narrative: Very pleasant but fatigued appearing gentleman who is in no other obvious distress. HEENT: Normocephalic and atraumatic, pupils equal round reactive to light accommodation with anicteric sclera Lungs: Clear bilaterally Heart: Regular rate and rhythm without murmur or gallop Abdomen: Soft, globally tender to palpation. Tender to even light touch along all portions of the abdominal wall. Active bowel sounds. Just removing an EKG lead cause the patient significant discomfort from pulling of hair. Extremities: Warm and well perfused without edema Objective Labs Result Diagrams: 03/24/18 10:55 03/24/18 10:55 Labs: Laboratory Results - last 24 hr 03/23/18 03/23/18 03/23/18 00:00 00:00 00:00 WBC 16.3 H RBC 5.73 Hgb 16.9 Hct 50.9 MCV 88.7 MCH 29.6 MCHC 33.3 RDW 14.1 Plt Count 318 Neut % (Auto) 91.5 H Lymph % (Auto) 2.0 L [place] % (Auto) 6.0 Eos % (Auto) 0.3 L Baso % (Auto) 0.2 Neut # (Auto) 67712 H Sodium 146 H Potassium 3.9 Chloride 104 Carbon Dioxide 23 BUN 15 Creatinine 1.50 H Estimated GFR 47.3 L BUN/Creatinine Ratio 10.0 Glucose 201 H Hemoglobin A1c Lactate Calcium 10.5 H Total Bilirubin 0.7 AST 37 ALT 41 Alkaline Phosphatase 91 Total Protein 8.4 H Albumin 5.4 H Globulin 3.0 Albumin/Globulin Ratio 1.8 Lipase Procalcitonin 53.41 H Urine Color Urine Appearance Urine pH Ur Specific [place] Urine Protein Urine Glucose (UA) Urine Ketones Urine Occult Blood Urine Nitrate Urine Bilirubin Urine Urobilinogen Ur Leukocyte Esterase Urine RBC Urine WBC Urine Bacteria Ur Culture Indicated? Micro UA Comment Nasal Screen MRSA (PCR) 03/23/18 03/24/18 03/24/18 00:00 00:01 04:15 WBC RBC Hgb Hct MCV MCH MCHC RDW Plt Count Neut % (Auto) Lymph % (Auto) [place] % (Auto) Eos % (Auto) Baso % (Auto) Neut # (Auto) Sodium Potassium Chloride Carbon Dioxide BUN Creatinine Estimated GFR BUN/Creatinine Ratio Glucose Hemoglobin A1c Lactate 4.0 H 1.8 Calcium Total Bilirubin AST ALT Alkaline Phosphatase Total Protein Albumin Globulin Albumin/Globulin Ratio Lipase 82 Procalcitonin Urine Color Urine Appearance Urine pH Ur Specific [place] Urine Protein Urine Glucose (UA) Urine Ketones Urine Occult Blood Urine Nitrate Urine Bilirubin Urine Urobilinogen Ur Leukocyte Esterase Urine RBC Urine WBC Urine Bacteria Ur Culture Indicated? Micro UA Comment Nasal Screen MRSA (PCR) 03/24/18 03/24/18 03/24/18 04:35 10:00 10:55 WBC 9.5 RBC 4.79 Hgb 14.1 Hct 42.4 MCV 88.6 MCH 29.4 MCHC 33.2 RDW 14.1 Plt Count 228 Neut % (Auto) 92.4 H Lymph % (Auto) 5.5 L [place] % (Auto) 1.6 L Eos % (Auto) 0.0 L Baso % (Auto) 0.5 Neut # (Auto) 8700 H Sodium Potassium Chloride Carbon Dioxide BUN Creatinine Estimated GFR BUN/Creatinine Ratio Glucose Hemoglobin A1c Lactate Calcium Total Bilirubin AST ALT Alkaline Phosphatase Total Protein Albumin Globulin Albumin/Globulin Ratio Lipase Procalcitonin Urine Color Yellow Urine Appearance Clear Urine pH 5.0 Ur Specific [place] 1.010 Urine Protein Negative Urine Glucose (UA) 2+ H Urine Ketones Negative Urine Occult Blood Negative Urine Nitrate Negative Urine Bilirubin Negative Urine Urobilinogen 0.2 Ur Leukocyte Esterase Negative Urine RBC None seen Urine WBC None seen Urine Bacteria None seen Ur Culture Indicated? Cult not indicated Micro UA Comment Microscopic normal Nasal Screen MRSA (PCR) Negative for mrsa 03/24/18 03/24/18 10:55 10:55 WBC RBC Hgb Hct MCV MCH MCHC RDW Plt Count Neut % (Auto) Lymph % (Auto) [place] % (Auto) Eos % (Auto) Baso % (Auto) Neut # (Auto) Sodium 143 Potassium 4.5 Chloride 110 H Carbon Dioxide 21 L BUN 17 Creatinine 0.90 Estimated GFR > 60.0 BUN/Creatinine Ratio 18.9 Glucose 260 H Hemoglobin A1c 7.6 H Lactate Calcium 8.9 Total Bilirubin 0.4 AST 22 ALT 34 Alkaline Phosphatase 57 Total Protein 6.5 Albumin 4.2 Globulin 2.3 Albumin/Globulin Ratio 1.8 Lipase Procalcitonin Urine Color Urine Appearance Urine pH Ur Specific [place] Urine Protein Urine Glucose (UA) Urine Ketones Urine Occult Blood Urine Nitrate Urine Bilirubin Urine Urobilinogen Ur Leukocyte Esterase Urine RBC Urine WBC Urine Bacteria Ur Culture Indicated? Micro UA Comment Nasal Screen MRSA (PCR) Assessment & Plan Plan: Assessment/Plan Narrative: Very pleasant gentleman with abdominal pain. He feels like it all started with the ?stomach bug?. His lactate is normalizing and he is feeling significantly better. I agree with all plans for treatment. No indication for surgical intervention at this time. Would recommend rechecking his lactate at 6:00 p.m..
[2018-03-24] MEDS: INSULIN ASPART 100 UNIT/ML 10ML VIAL SUBCUT (13:49)
--- NOTE | 2018-03-24 14:45 | CM.DPC ---
Addendum entered by Kayley Barron LPN 03/24/18 14:53: Checked in again with pt now. He has just moved up to room 224, is markedly more alert and says he aleady feels better. He confirms PCP: Dr. Jacobo Ocho[facility]. He lives with a roommate: Josue Glass: [phone] and Josue was here earlier to visit. Pt confirms he lives at the [place] address listed on face sheet. His daugher November Little does not live there, she is in [place]. Will update ACG via outlook mail. Pt notes he feels much improved from this morning and confirms that Dr. Wilburn saw him and at this point does not think surgery will be indicated. He has been up with PT [facility] for an initial eval and did well/see those notes. Pt is hopeful for a speedy recovery and return home. P: follow prn for d/c needs. Original Note: Discharge Planning/Care Management DCP: assessment: case received, EMR reviewed and met briefly with pt this morning 0900 in the ICU setting. Introduced self and role. Pt is a 63 year old male who admitted early this morning to care of the hospitalist team. Surgeon: Dr. Wilburn is consulting. PCP: throught the [facility]. Podiatry: [facility] Discharge Assessment Start: 03/24/18 14:42 Freq: Status: Active Protocol: Document 03/24/18 14:43 ITV (Rec: 03/24/18 14:45 ITV [id number]) Discharge Planning Assessment Advance Directives? Yes: On old record History Provided By Patient Medical Record Prior Living Arrangements House Comment lives with a roommate home set up for disability support Willing to Return to Facility? NA Whiteboard Updated in Patient Room with Yes name and ext. # of Physician Office Assistant Review Status In Process Next Review Type Continued Stay Review
--- NOTE | 2018-03-24 15:07 | PC.NURSE ---
Pt up to floor around 1400.Given 1mg of iv dilaudid and resting comfortably. Watching the game with his friend. IV antibiotics infusing.
[2018-03-24 15:32] LABS: Lactate (Lactic Acid) 2.4 mmol/L (0.7-2.1)
[2018-03-24 18:47] LABS: Lactate (Lactic Acid) 0.8 mmol/L (0.7-2.1)
[2018-03-24] MEDS: ONDANSETRON 4 MG ODT PO (18:55)
[2018-03-24 19:16] LABS: Reflexed Lactate in 2 Hours Y
[2018-03-24 21:22] LABS: Lactate (Lactic Acid) 0.7 mmol/L (0.7-2.1)
[2018-03-24] MEDS: METOPROLOL IR 50 MG TABLET PO (21:58)
[2018-03-25] VITALS (9 sets, daily range): BP systolic 95–136; BP diastolic 51–71; PULSE 56–90; RESP 14–18; TEMP 36.3–36.8; O2SAT 94–98
[2018-03-25] MEDS: AMPICILLIN/SULBACTAM 1.5 GM 1.5 GM in SODIUM CHLORIDE 0.9% 100 ML IV ×4 (00:30→18:55)
[2018-03-25] MEDS: OXYCODONE IR 5 MG TABLET PO (05:01)
[2018-03-25] MEDS: metroNIDAZOLE 500 MG/100 ML PIGGYBACK 100 MG IV ×3 (05:02→20:55)
[2018-03-25] MEDS: ONDANSETRON 4 MG ODT PO ×3 (05:02→21:54)
--- NOTE | 2018-03-25 05:12 | PC.NURSE ---
Slept through the night, woke up C/O nausea & pain Zofran PO & 5 mg. of Percolone admin. Will cont. POC & monitor.
[2018-03-25 05:53] LABS: Add Manual Diff / Slide Review NO; Basophils Percent Auto 0.2 % (0-2); Eosinophils Percent Auto 0.4 % (2-4); Hematocrit 37.4 % (41-53); Hemoglobin 12.6 g/dL (13.5-17.5); Lymphocytes Percent Auto 17.1 % (25-40); Mean Corpuscular HGB Conc 33.6 % (30-36); Mean Corpuscular Hemoglobin 29.9 PG (26-34); Mean Corpuscular Volume 88.8 fL (80-100); Monocytes Percent Auto 7.3 % (3-14); Neutrophils Absolute Auto 6900 /uL (1500-7000); Platelet Count 212 X10^3/uL (150-400); Red Blood Cell Count 4.22 X10^6/uL (4.5-5.9); Red Cell Distribution Width 14.2 % (11.6-14.8); White Blood Cell Count 9.2 X10^3/uL (4.5-11.0)
[2018-03-25 06:01] LABS: Alanine Aminotransferase 32 IU/L (21-72); Albumin 3.5 g/dL (3.5-5.0); Albumin Globulin Ratio 1.6 (1.0-2.8); Alkaline Phosphatase 44 U/L (38-126); Aspartate Aminotransferase 20 IU/L (17-59); BUN Creatinine Ratio 15.7 (6-22); Bilirubin Total 0.5 mg/dL (0.2-1.3); Blood Urea Nitrogen 11 mg/dL (9-20); Calcium 8.8 mg/dL (8.4-10.2); Carbon Dioxide 24 mmol/L (22-32); Chloride 110 mmol/L (98-107); Estimated Glomerular Filt Rate > 60.0 mL/min (>60); Globulin 2.2 g/dL (1.7-4.1); Glucose 134 mg/dL (80-110); HEMOLYSIS < 15 (0-50); Magnesium 1.5 mg/dL (1.6-2.3); Phosphorous 3.6 mg/dL (2.3-3.7); Potassium 4.2 mmol/L (3.4-5.1); Sodium 141 mmol/L (137-145); Total Protein 5.7 g/dL (6.3-8.2)
[2018-03-25] MEDS: CLOPIDOGREL 75 MG TABLET PO (08:37)
[2018-03-25] MEDS: METOPROLOL IR 50 MG TABLET PO ×2 (08:38→20:55)
[2018-03-25] MEDS: PROMETHAZINE 25 MG TABLET PO ×2 (08:42→17:00)
[2018-03-25] MEDS: INSULIN GLARGINE 100 UNIT/ML 3ML PEN 18 UNIT SUBCUT (08:44)
[2018-03-25] MEDS: SODIUM CHLORIDE 0.9% 1,000 ML 125 ML IV ×2 (08:55→23:06)
--- NOTE | 2018-03-25 09:12 | PM.PN.1 ---
Subjective Date Patient Seen: 03/25/18 Time Patient Seen: 09:13 Interval history: REPORTED STILL HAVING MODERATE ABD DISCOMFORTS NO FEVER OR CHILLS REPORTED SMALL LOOSELY FORMED BM OVER LAST 24 HRS NO BLOOD PER RECTUM NO OTHER SIGNIFICANT ISSUES OVERNIGHT Exam Vital Signs (past 8 hours): - 03/25/18 06:03 03/25/18 08:00 Temperature 97.4 F L 97.9 F Pulse Rate 73 70 Respiratory Rate 16 18 Blood Pressure 98/51 L 115/71 Pulse Oximetry 96 98 Oxygen Delivery Method Room Air Oxygen Flow Rate 0 Narrative Exam Narrative: NO ACUTE DISTRESS. PATIENT IS ALERT ORIENTED X3. VITAL SIGNS STABLE HEAD ATRAUMATIC NORMOCEPHALIC NECK : SUPPLE WITHOUT ADENOPATHY NO CAROTID BRUITS EYE: EOMI, PERRLA, NORMAL CONJUNCTIVA; NO JAUNDICE CHEST: REGULAR RATE. NO RUBS. PMI IS NON DISPLACED. NO MURMURS; NORMAL S1-S2 PULMONARY: DECREASED BS OVER THE BASES. MILD BIBASILAR CRACKLES NOTED; NO INCREASED DULLNESS TO PERCUSSION ABDOMEN: SOFT. TENDER TO TOUCH. HOWEVER NON DISTENDED. NO GUARDING NOTED; NO REBOUND TENDERNESS; BOWEL SOUNDS ARE PRESENT IN ALL 4 QUADRANTS BUT HYPOACTIVE. NO MASS. EXTREMITIES: NO EDEMA.. NO CYANOSIS CLUBBING NOTED. NEURO: CRANIAL NERVES 2-12 GROSSLY INTACT. NO FOCAL NEUROLOGICAL DEFICIT NOTED. MSK: NORMAL RANGE OF MOTION FOR AGE. NO JOINT EFFUSION. SKIN: NORMAL FOR ETHNICITY; NO ECCHYMOSIS. NO LESION. GOOD TURGOR.; NO RASHES : NORMAL EXTERNAL GENITALIA. PSYCH : APPROPRIATE MOOD AND AFFECT. ALERT AWAKE ORIENTED X3 Objective Labs Result Diagrams: 03/25/18 05:19 03/25/18 05:19 Labs: Laboratory Results - last 24 hr 03/24/18 03/24/18 03/24/18 10:00 10:55 10:55 WBC 9.5 RBC 4.79 Hgb 14.1 Hct 42.4 MCV 88.6 MCH 29.4 MCHC 33.2 RDW 14.1 Plt Count 228 Neut % (Auto) 92.4 H Lymph % (Auto) 5.5 L [place] % (Auto) 1.6 L Eos % (Auto) 0.0 L Baso % (Auto) 0.5 Neut # (Auto) 8700 H Sodium 143 Potassium 4.5 Chloride 110 H Carbon Dioxide 21 L BUN 17 Creatinine 0.90 Estimated GFR > 60.0 BUN/Creatinine Ratio 18.9 Glucose 260 H Hemoglobin A1c Lactate Calcium 8.9 Phosphorus Magnesium Total Bilirubin 0.4 AST 22 ALT 34 Alkaline Phosphatase 57 Total Protein 6.5 Albumin 4.2 Globulin 2.3 Albumin/Globulin Ratio 1.8 Urine Color Yellow Urine Appearance Clear Urine pH 5.0 Ur Specific [place] 1.010 Urine Protein Negative Urine Glucose (UA) 2+ H Urine Ketones Negative Urine Occult Blood Negative Urine Nitrate Negative Urine Bilirubin Negative Urine Urobilinogen 0.2 Ur Leukocyte Esterase Negative Urine RBC None seen Urine WBC None seen Urine Bacteria None seen Ur Culture Indicated? Cult not indicated Micro UA Comment Microscopic normal 03/24/18 03/24/18 03/24/18 10:55 15:10 18:30 WBC RBC Hgb Hct MCV MCH MCHC RDW Plt Count Neut % (Auto) Lymph % (Auto) [place] % (Auto) Eos % (Auto) Baso % (Auto) Neut # (Auto) Sodium Potassium Chloride Carbon Dioxide BUN Creatinine Estimated GFR BUN/Creatinine Ratio Glucose Hemoglobin A1c 7.6 H Lactate 2.4 H 0.8 Calcium Phosphorus Magnesium Total Bilirubin AST ALT Alkaline Phosphatase Total Protein Albumin Globulin Albumin/Globulin Ratio Urine Color Urine Appearance Urine pH Ur Specific [place] Urine Protein Urine Glucose (UA) Urine Ketones Urine Occult Blood Urine Nitrate Urine Bilirubin Urine Urobilinogen Ur Leukocyte Esterase Urine RBC Urine WBC Urine Bacteria Ur Culture Indicated? Micro UA Comment 03/24/18 03/25/18 03/25/18 20:56 05:19 05:19 WBC 9.2 RBC 4.22 L Hgb 12.6 L Hct 37.4 L MCV 88.8 MCH 29.9 MCHC 33.6 RDW 14.2 Plt Count 212 Neut % (Auto) 75.0 Lymph % (Auto) 17.1 L [place] % (Auto) 7.3 Eos % (Auto) 0.4 L Baso % (Auto) 0.2 Neut # (Auto) 6900 Sodium 141 Potassium 4.2 Chloride 110 H Carbon Dioxide 24 BUN 11 Creatinine 0.70 Estimated GFR > 60.0 BUN/Creatinine Ratio 15.7 Glucose 134 H D Hemoglobin A1c Lactate 0.7 Calcium 8.8 Phosphorus 3.6 Magnesium 1.5 L Total Bilirubin 0.5 AST 20 ALT 32 Alkaline Phosphatase 44 Total Protein 5.7 L Albumin 3.5 Globulin 2.2 Albumin/Globulin Ratio 1.6 Urine Color Urine Appearance Urine pH Ur Specific [place] Urine Protein Urine Glucose (UA) Urine Ketones Urine Occult Blood Urine Nitrate Urine Bilirubin Urine Urobilinogen Ur Leukocyte Esterase Urine RBC Urine WBC Urine Bacteria Ur Culture Indicated? Micro UA Comment Assessment & Plan Plan: Assessment/Plan Narrative: IMPRESSION AND PLAN COLITIS; LIKELY INFECTIOUS IN NATURE; CONSIDER MICROSCOPIC VS OTHERS; CONT TO MONITOR FOR POSS ISCHEMIC BOWEL OR OTHER S.S OF ACUTE ABD; LACTATE HAS NORMALIZED; SURGERY IS ON BOARD AND ASSISTANCE APPRECIATED GREATLY; CONT CURRENT TX WITH PAIN CONTROL/REHYFRATION AND ABX UNLESS OTHERWISE RECOMMENDED BY SURG; REPEAT ABDOMINAL FILMS INDICATED. CONTINUE ANTIBIOTICS WITH UNASYN AND FLAGGYL FOR NOW. ADDITIONAL MANAGEMENT INDICATED CLINICALLY ELEVATED LACTIC ACID. RESOLVED; CONTINUE IV FLUID FOR NOW. LABS INDICATED TO FOLLOW LEUKOCYTOSIS. RESOLVED. PATIENT IS ON ANTIBIOTICS. CONTINUE TO FOLLOW CLOSELY. DAILY CBC TO FOLLOW METABOLIC ACIDOSIS. RESOLVED. CONTINUE IV FLUID FOR NOW. CONTINUE TO FOLLOW CLOSELY INSULIN INDEPENDENT DIABETES. ON ISS; STRICT BG CONTROL DEHYDRATION. RESOLVED AT THIS POINT. CONTINUE CURRENT IV FLUID. MONITOR CLOSELY POSSIBLE SIRS VERSUS SEPSIS PRESENT ON ARRIVAL. RESOLVED; CONTINUE IV FLUID. CONTINUE CURRENT ANTIBIOTICS. SOURCE IS LIKELY THE ABDOMEN; MONITOR VITALS CLOSELY HYPERTENSION PER HISTORY. NEEDED IV MEDICATION WILL BE ORDERED FOR NOW. HIS HOME MEDICATION WILL BE RESTARTED WELL CHRONIC ATRIAL FIBRILLATION. RATE REMAINS CONTROLLED AT THIS POINT. KEEP PATIENT ON TELE AT ALL TIMES. RESTART PATIENT ON HOME MEDICATION PVD PER HISTORY. MONITOR FOR NOW HYPERLIPIDEMIA PER HISTORY. RESTARTED ON HIS HOME MEDICATION NARCOLEPSY PER HISTORY. MONITOR CLOSELY CHRONIC PANCREATITIS. PATIENT IS ON CLEARS LIQ DIET. WE WILL FOLLOW LIPASE INDICATED. HOME MEDICATION WILL BE RESTARTED. OBESITY. OUTPATIENT MANAGEMENT. LIFESTYLE CHANGES. DC PER CLINICAL COURSE
[2018-03-25] MEDS: MAGNESIUM SULFATE 2 GM/50 ML PIGGYBACK IV (09:40)
[2018-03-25] MEDS: HYDROMORPHONE 1 MG INJ IV ×4 (09:45→22:56)
--- NOTE | 2018-03-25 10:48 | PC.NURSE ---
AM NOTE - awake, hx ongoing nausea and abd pain, states 4 on scale 0/10, roselyn a few sips tea this am, iv NS at 125ml/hr, ra 96%, given 1mg iv dilaudid this am, 25mg po promethazine.
--- NOTE | 2018-03-25 11:24 | PT.IPTN ---
Current Diagnoses Unspecified abdominal pain (03/24/18) Physical Therapy Treatment Note M2 PT-IP Current Condition Start: 03/24/18 12:37 Freq: NEEDED Status: Active Protocol: Document 03/24/18 12:30 RCC (Rec: 03/24/18 12:51 RCC [id number]) Physical Therapy Current Condition Current Condition Evaluation Date 03/24/18 Treatment Diagnosis abdominal pain, impaired mobility Precautions Other Precautions pt self-reporting he is allowed up without walking boot on LLE up to 4 hrs/day Weight Bearing Status Weight Bearing Status Weight Bear as Tolerated M3 PT-IP Subjective Start: 03/24/18 12:37 Freq: NEEDED Status: Active Protocol: Document 03/25/18 10:00 HH (Rec: 03/25/18 11:16 HH [id number]) Subjective Physical Therapy Visit Type Type Treatment Note Visit Start Time 10:00 Visit Stop Time 10:30 Total Visit Minutes [address] MONITOR Visits 0 Physical Therapy Visit Comments Patient Comments Pt states his pain is getting much better 3/10 today and he is able to sleep better as well. Pt reports he has been getting OOB to bathroom with the use of IV stand with nursing staff since last night . M4 PT-IP Mobility and Gait Start: 03/24/18 12:37 Freq: NEEDED Status: Active Protocol: Document 03/25/18 10:00 HH (Rec: 03/25/18 11:24 HH [id number]) PT-Bed Mobility Assessment Rolling Level of Assist Independent Supine to Sit Supine to Sit Independent Sit to Supine Sit to Supine Independent Scooting Scooting to Edge of Bed Independent Scooting Up and Down in Bed Independent PT-Transfer Assessment Sit to and From Stand Sit to and from Stand Standby Assistance Use of Upper Extremities Equipment Transfer Assistive Device Gait Belt Transfers Transfer Destination Bed Chair Transfer Technique Stand Step Pivot Transfer Ability Level of Assist Standby Assistance Comments Mobility Comments Pt performs sit to stand; chair transfer with B UE to push off but no AD needed. Pt did not signs of LOB and acute distress. Gait Assessment Gait Gait Assistance Required: Standby Assistance Distance (Feet) 500 Able to Maintain Weight Bearing Status Yes During Gait Assistive Devices Assistive Device Gait Belt Gait Deviations General Gait Pattern Antalgic Decreased Stride Length Decreased Feet Clearance Factors Limiting Gait Function Factors Limiting Gait Function Decreased Activity Tolerance Decreased Strength Pain Comments Gait Comments Pt amb 250 feet x 2 today with SBA and IV stand as needed. Pt cont demonstrates slight L antalgic gait with decreased foot clearance and stride length due to foot pain. However, he presents improved gait speed and no signs of LOB and acute distress. He states I feel good today and able to walk far. Stair Climbing Assessment Evaluation Level of Assist On Stairs Standby Assistance Contact Guard Assistance 1 Person Assistance Technique/Endurance Stair Climbing Direction Ascend and Descend Stair Climbing Technique Step Over Step Number of Steps Climbed 10 Query Text: Comments Stair Climbing Comments Pt demonstrates no sign of LOB and acute distress with the use B handrails for stability. PT-Balance Assessment Sitting Balance and Reactions Static Sitting Balance Ability Normal Dynamic Sitting Balance Ability Normal Standing Balance and Reactions Static Standing Balance Ability Normal Dynamic Standing Balance Ability Good M5 PT-IP Objective Assessments Start: 03/24/18 12:37 Freq: NEEDED Status: Active Protocol: Document 03/24/18 12:30 RCC (Rec: 03/24/18 12:51 RCC [id number]) Orientation Orientation/Cognition Level of Alertness Alert Gross Range of Motion Lower Extremity ROM Assessment Left Impaired Impairments L ankle DF unable to achieve neutral (~5 deg. lacking) due to immobility Strength Lower Extremity Strength Assessment Left Impaired Comments Strength Comments L ankle not tested due to current plantar fascia injury but definite decreased push off on the L foot Coordination Assessment Gross Coordination Gross Coordination WNL Sensation Assessment Sensation Light Touch Impaired Comments Sensation Comments bilateral neuropathy M6 PT-IP Treatment Start: 03/24/18 12:37 Freq: NEEDED Status: Active Protocol: Document 03/25/18 10:00 (Rec: 03/25/18 11:16 [id number]) Physical Therapy Treatment Other Treatments Other Treatment Performed standing L hip abduction M7 PT-IP Assessment and Plan Start: 03/24/18 12:37 Freq: NEEDED Status: Active Protocol: Document 03/25/18 10:00 HH (Rec: 03/25/18 11:16 HH [id number]) PT Summary Assessment and Plan Summary Impairments Pain Strength Transfers Gait Activity Tolerance Assessment Summary Pt demonstrates significant improvements for overall mobility today possibly due to improved medical status and pain control. Pt is able to reach all his rehab goals with SBA today and no signs of LOB and acute distress. Pt does c /o abdominal pain 3-5/10 along with fatigue after during tx session. Cont to monitor pt's pain and fatigue level prior to d/c. Treatment Plan Physical Therapy Treatment Plan Transfer Training Gait Training Therapeutic Exercise Balance Retraining Discharge Planning Hot or Cold Pack Neuromuscular Re-ed Other Recommendations and Next Treatment gait as tolerated Focus cont gait without AD practice dynamic balance Recommendations To Nursing Amount of Assist Needed 1 Person Assist Discharge Recommendations PT Discharge Recommendations Home with Assistance Outpatient PT
[2018-03-25] MEDS: METHYLPHENIDATE 5 MG TABLET 20 MG PO (16:30)
--- NOTE | 2018-03-25 16:42 | PM.PN.1 ---
Subjective Date Patient Seen: 03/25/18 Time Patient Seen: 16:42 Interval history: Jann reports he is feeling much better today. He denies any new abdominal pain and says he feels he is pretty much back to his baseline. He says he is tolerating p.o. intake without much nausea. He is passing flatus. Exam Vital Signs (past 8 hours): - 03/25/18 11:00 03/25/18 12:00 03/25/18 15:34 Temperature 98.3 F 97.8 F Pulse Rate 61 59 L Respiratory Rate 18 18 Blood Pressure 111/51 L 99/62 Pulse Oximetry 96 96 95 Oxygen Delivery Method Room Air Oxygen Flow Rate 0 Narrative Exam Narrative: Abdomen: Soft, minimal tenderness to palpation now, active bowel sounds. Objective Labs Result Diagrams: 03/25/18 05:19 03/25/18 05:19 Labs: Laboratory Results - last 24 hr 03/24/18 03/24/18 03/25/18 18:30 20:56 05:19 WBC 9.2 RBC 4.22 L Hgb 12.6 L Hct 37.4 L MCV 88.8 MCH 29.9 MCHC 33.6 RDW 14.2 Plt Count 212 Neut % (Auto) 75.0 Lymph % (Auto) 17.1 L [place] % (Auto) 7.3 Eos % (Auto) 0.4 L Baso % (Auto) 0.2 Neut # (Auto) 6900 Sodium Potassium Chloride Carbon Dioxide BUN Creatinine Estimated GFR BUN/Creatinine Ratio Glucose Lactate 0.8 0.7 Calcium Phosphorus Magnesium Total Bilirubin AST ALT Alkaline Phosphatase Total Protein Albumin Globulin Albumin/Globulin Ratio 03/25/18 05:19 WBC RBC Hgb Hct MCV MCH MCHC RDW Plt Count Neut % (Auto) Lymph % (Auto) [place] % (Auto) Eos % (Auto) Baso % (Auto) Neut # (Auto) Sodium 141 Potassium 4.2 Chloride 110 H Carbon Dioxide 24 BUN 11 Creatinine 0.70 Estimated GFR > 60.0 BUN/Creatinine Ratio 15.7 Glucose 134 H D Lactate Calcium 8.8 Phosphorus 3.6 Magnesium 1.5 L Total Bilirubin 0.5 AST 20 ALT 32 Alkaline Phosphatase 44 Total Protein 5.7 L Albumin 3.5 Globulin 2.2 Albumin/Globulin Ratio 1.6 Assessment & Plan Plan: Assessment/Plan Narrative: Resolved volume contraction and lactic acidosis. I agree with restarting all the patient's home meds. Happy to be available if I can be of any assistance.
[2018-03-25] MEDS: DABIGATRAN 75 MG CAPSULE 150 MG PO (20:55)
[2018-03-25] MEDS: CHOLECALCIFEROL (VITAMIN D3) 1,000 UNIT TABLET 1000 UNIT PO (20:55)
[2018-03-25] MEDS: PANTOPRAZOLE 40 MG TABLET PO (20:55)
[2018-03-25] MEDS: diphenhydrAMINE 50 MG/ML VIAL 25 MG IV (21:53)
[2018-03-26] VITALS (7 sets, daily range): BP systolic 109–135; BP diastolic 69–75; PULSE 57–70; RESP 12–18; TEMP 36.4–36.8; O2SAT 95–100
[2018-03-26] MEDS: AMPICILLIN/SULBACTAM 1.5 GM 1.5 GM in SODIUM CHLORIDE 0.9% 100 ML IV ×3 (00:37→11:47)
[2018-03-26] MEDS: HYDROMORPHONE 1 MG INJ IV ×3 (03:08→12:38)
[2018-03-26] MEDS: metroNIDAZOLE 500 MG/100 ML PIGGYBACK 100 MG IV ×2 (04:47→16:00)
[2018-03-26 05:34] LABS: Add Manual Diff / Slide Review NO; Basophils Percent Auto 0.4 % (0-2); Eosinophils Percent Auto 2.6 % (2-4); Hematocrit 38.7 % (41-53); Hemoglobin 12.8 g/dL (13.5-17.5); Lymphocytes Percent Auto 26.6 % (25-40); Mean Corpuscular HGB Conc 33.2 % (30-36); Mean Corpuscular Hemoglobin 29.7 PG (26-34); Mean Corpuscular Volume 89.3 fL (80-100); Neutrophils Absolute Auto 4100 /uL (1500-7000); Neutrophils Percent Auto 62.4 % (50-75); Platelet Count 190 X10^3/uL (150-400); Red Blood Cell Count 4.33 X10^6/uL (4.5-5.9); Red Cell Distribution Width 14.1 % (11.6-14.8); White Blood Cell Count 6.6 X10^3/uL (4.5-11.0)
[2018-03-26 05:42] LABS: Alanine Aminotransferase 31 IU/L (21-72); Albumin 3.6 g/dL (3.5-5.0); Albumin Globulin Ratio 1.7 (1.0-2.8); Alkaline Phosphatase 45 U/L (38-126); Aspartate Aminotransferase 18 IU/L (17-59); BUN Creatinine Ratio 12.9 (6-22); Bilirubin Total 0.5 mg/dL (0.2-1.3); Blood Urea Nitrogen 9 mg/dL (9-20); Calcium 8.5 mg/dL (8.4-10.2); Carbon Dioxide 25 mmol/L (22-32); Chloride 107 mmol/L (98-107); Estimated Glomerular Filt Rate > 60.0 mL/min (>60); Globulin 2.1 g/dL (1.7-4.1); Glucose 101 mg/dL (80-110); HEMOLYSIS < 15 (0-50); Magnesium 1.6 mg/dL (1.6-2.3); Phosphorous 4.4 mg/dL (2.3-3.7); Potassium 3.8 mmol/L (3.4-5.1); Sodium 141 mmol/L (137-145); Total Protein 5.7 g/dL (6.3-8.2)
[2018-03-26] MEDS: METHYLPHENIDATE 5 MG TABLET 20 MG PO ×3 (06:35→16:40)
[2018-03-26] MEDS: PANTOPRAZOLE 40 MG TABLET PO ×2 (06:36→22:06)
[2018-03-26] MEDS: PROTEASE PO (08:09)
[2018-03-26] MEDS: ONDANSETRON 4 MG ODT PO (08:09)
[2018-03-26] MEDS: LIPASE PO (08:09)
[2018-03-26] MEDS: AMYLASE PO (08:09)
[2018-03-26] MEDS: METOPROLOL IR 50 MG TABLET PO ×2 (08:49→22:04)
[2018-03-26] MEDS: CHOLECALCIFEROL (VITAMIN D3) 1,000 UNIT TABLET 1000 UNIT PO ×2 (08:49→22:03)
[2018-03-26] MEDS: LISINOPRIL 20 MG TABLET PO (08:49)
[2018-03-26] MEDS: DABIGATRAN 75 MG CAPSULE 150 MG PO ×2 (08:50→22:03)
[2018-03-26] MEDS: CLOPIDOGREL 75 MG TABLET PO (08:50)
[2018-03-26] MEDS: INSULIN GLARGINE 100 UNIT/ML 3ML PEN 18 UNIT SUBCUT (08:51)
[2018-03-26] MEDS: PROMETHAZINE 25 MG TABLET PO (10:46)
[2018-03-26] MEDS: SODIUM CHLORIDE 0.9% 1,000 ML 125 ML IV ×2 (11:47→22:01)
--- NOTE | 2018-03-26 12:27 | CM.DPC ---
DCP Cont: Talked to his nurse, Khushi, to inquire upon how patient is doing here in the hospital. Stated that patient is continuing to have nausea. She stated that it was noted that patient was taking an increased dose of his Pancreatic enzymes at home, so they will be adjusting and increasing them to what he was taking at home to see if this helps with the nausea. Patient has been mobile as well. Met patient briefly, pleasant. Confirmed that he lives with room mate and has no concerns about going home. Patient is hoping to go home soon. P: DCP to continue to follow. Plan is for home when medically stable. Catalina Pollack RN/Auto Apprentice Mechanic
--- NOTE | 2018-03-26 12:39 | PM.PN.1 ---
Subjective Date Patient Seen: 03/26/18 Time Patient Seen: 12:39 Interval history: CONT TO REPORT SIGNIFICANT NAUSEA AND VOMITING NO FEVER OR CHILLS HAD NO BM FOR LAST 24 HRS NO CP/SOB; NO FEVER OR CHILLS Exam Vital Signs (past 8 hours): - 03/26/18 08:02 03/26/18 11:58 Temperature 97.6 F 98.3 F Pulse Rate 65 66 Respiratory Rate 18 18 Blood Pressure 135/75 127/74 Pulse Oximetry 100 97 Oxygen Delivery Method Room Air Oxygen Flow Rate 0 Narrative Exam Narrative: NO ACUTE DISTRESS. PATIENT IS ALERT ORIENTED X3. VITAL SIGNS STABLE HEAD ATRAUMATIC NORMOCEPHALIC NECK : SUPPLE WITHOUT ADENOPATHY NO CAROTID BRUITS EYE: EOMI, PERRLA, NORMAL CONJUNCTIVA; NO JAUNDICE CHEST: REGULAR RATE. NO RUBS. PMI IS NON DISPLACED. NO MURMURS; NORMAL S1-S2 PULMONARY: DECREASED BS OVER THE BASES. MILD BIBASILAR CRACKLES NOTED; NO INCREASED DULLNESS TO PERCUSSION ABDOMEN: SOFT. TENDER TO TOUCH. HOWEVER NON DISTENDED. NO GUARDING NOTED; NO REBOUND TENDERNESS; BOWEL SOUNDS ARE PRESENT IN ALL 4 QUADRANTS BUT HYPOACTIVE. NO MASS. EXTREMITIES: NO EDEMA.. NO CYANOSIS CLUBBING NOTED. NEURO: CRANIAL NERVES 2-12 GROSSLY INTACT. NO FOCAL NEUROLOGICAL DEFICIT NOTED. MSK: NORMAL RANGE OF MOTION FOR AGE. NO JOINT EFFUSION. SKIN: NORMAL FOR ETHNICITY; NO ECCHYMOSIS. NO LESION. GOOD TURGOR.; NO RASHES : NORMAL EXTERNAL GENITALIA. PSYCH : APPROPRIATE MOOD AND AFFECT. ALERT AWAKE ORIENTED X3 Objective Labs Result Diagrams: 03/26/18 05:05 03/26/18 05:05 Labs: Laboratory Results - last 24 hr 03/26/18 03/26/18 05:05 05:05 WBC 6.6 RBC 4.33 L Hgb 12.8 L Hct 38.7 L MCV 89.3 MCH 29.7 MCHC 33.2 RDW 14.1 Plt Count 190 Neut % (Auto) 62.4 Lymph % (Auto) 26.6 [place] % (Auto) 8.0 Eos % (Auto) 2.6 Baso % (Auto) 0.4 Neut # (Auto) 4100 Sodium 141 Potassium 3.8 Chloride 107 Carbon Dioxide 25 BUN 9 Creatinine 0.70 Estimated GFR > 60.0 BUN/Creatinine Ratio 12.9 Glucose 101 Calcium 8.5 Phosphorus 4.4 H Magnesium 1.6 Total Bilirubin 0.5 AST 18 ALT 31 Alkaline Phosphatase 45 Total Protein 5.7 L Albumin 3.6 Globulin 2.1 Albumin/Globulin Ratio 1.7 Assessment & Plan Plan: Assessment/Plan Narrative: IMPRESSION AND PLAN ACUTE COLITIS; LIKELY INFECTIOUS IN NATURE; CONSIDER MICROSCOPIC VS OTHERS; CONT TO MONITOR FOR POSS ISCHEMIC BOWEL OR OTHER S.S OF ACUTE ABD; LACTATE HAS NORMALIZED; SURGERY IS ON BOARD AND ASSISTANCE APPRECIATED GREATLY; CONT CURRENT TX WITH PAIN CONTROL/REHYDRATION; CHANGED ABX TO ORAL TODAY; REPEAT ABDOMINAL FILMS INDICATED. NAUSEA AND VOMITING; STILL NOT JIMMY PO WELL; STARTED ON NEW MEDS TODAY; CONSIDER REGLAN;WATCH ELECTROLYTES CLOSELY AND KEEP WELL HYDRATED ELEVATED LACTIC ACID. RESOLVED; CONTINUE IV FLUID FOR NOW. LABS INDICATED TO FOLLOW LEUKOCYTOSIS. RESOLVED. WILL CHANGE ABX TO ORAL TODAY; CONTINUE TO FOLLOW CLOSELY. DAILY CBC TO FOLLOW METABOLIC ACIDOSIS. RESOLVED. CONTINUE IV FLUID FOR NOW. CONTINUE TO FOLLOW CLOSELY INSULIN INDEPENDENT DIABETES. ON ISS; STRICT BG CONTROL DEHYDRATION. RESOLVED AT THIS POINT. CONTINUE CURRENT IV FLUID. MONITOR CLOSELY POSSIBLE SIRS VERSUS SEPSIS PRESENT ON ARRIVAL. RESOLVED; CONTINUE IV FLUID. CONTINUE CURRENT ANTIBIOTICS. SOURCE IS LIKELY THE ABDOMEN; MONITOR VITALS CLOSELY HYPERTENSION PER HISTORY. NEEDED IV MEDICATION WILL BE ORDERED FOR NOW. HIS HOME MEDICATION WILL BE RESTARTED WELL CHRONIC ATRIAL FIBRILLATION. RATE REMAINS CONTROLLED AT THIS POINT. KEEP PATIENT ON TELE AT ALL TIMES. RESTART PATIENT ON HOME MEDICATION PVD PER HISTORY. MONITOR FOR NOW HYPERLIPIDEMIA PER HISTORY. RESTARTED ON HIS HOME MEDICATION NARCOLEPSY PER HISTORY. MONITOR CLOSELY CHRONIC PANCREATITIS. PATIENT IS ON CLEARS LIQ DIET. WE WILL FOLLOW LIPASE INDICATED. HOME MEDICATION WILL BE RESTARTED. OBESITY. OUTPATIENT MANAGEMENT. LIFESTYLE CHANGES. DC PER CLINICAL COURSE LIKELY IN NEXT 24-48 HRS IF STABLE AND ABLE TO JIMMY PO
[2018-03-26] MEDS: ONDANSETRON 4 MG ODT 8 MG PO ×2 (12:49→19:46)
[2018-03-26] MEDS: LORazepam 2 MG/ML SYRINGE 1 MG IV (13:00)
[2018-03-26] MEDS: metroNIDAZOLE 500 MG TABLET PO ×2 (13:50→22:05)
[2018-03-26] MEDS: diphenhydrAMINE 50 MG/ML VIAL 12.5 MG IV (13:50)
--- NOTE | 2018-03-26 14:47 | PT.IPTN ---
Current Diagnoses Unspecified abdominal pain (03/24/18) Physical Therapy Treatment Note M2 PT-IP Current Condition Start: 03/24/18 12:37 Freq: NEEDED Status: Active Protocol: Document 03/24/18 12:30 RCC (Rec: 03/24/18 12:51 RCC [id number]) Physical Therapy Current Condition Current Condition Evaluation Date 03/24/18 Treatment Diagnosis abdominal pain, impaired mobility Precautions Other Precautions pt self-reporting he is allowed up without walking boot on LLE up to 4 hrs/day Weight Bearing Status Weight Bearing Status Weight Bear as Tolerated M3 PT-IP Subjective Start: 03/24/18 12:37 Freq: NEEDED Status: Active Protocol: Document 03/26/18 14:36 SA (Rec: 03/26/18 14:47 [id number]) Subjective Physical Therapy Visit Type Type Treatment Note Visit Start Time 13:38 Visit Stop Time 13:58 Total Visit Minutes 20 Number of RANGE EXAMINER Visits 1 Physical Therapy Visit Comments Patient Comments Pt denies pain this afternoon. Agreeable to get up and walk stating that his nausea is better this afternoon than it was this morning. Therapy Pain Assessment Pain When Pain Assessed During Mobility Pain Present Pain Present Denied Pain M4 PT-IP Mobility and Gait Start: 03/24/18 12:37 Freq: NEEDED Status: Active Protocol: Document 03/26/18 14:36 SA (Rec: 03/26/18 14:47 [id number]) PT-Bed Mobility Assessment Rolling Level of Assist Independent Supine to Sit Supine to Sit Independent Sit to Supine Sit to Supine Independent Scooting Scooting to Edge of Bed Independent Scooting Up and Down in Bed Independent PT-Transfer Assessment Sit to and From Stand Sit to and from Stand Standby Assistance Use of Upper Extremities Equipment Transfer Assistive Device Gait Belt Transfers Transfer Destination Bed Chair Transfer Technique Stand Step Pivot Transfer Ability Level of Assist Standby Assistance Comments Mobility Comments Pt had c/o feeling weak and unstable upon standing. Cues for pacing and PLB with mobility tasks. Gait Assessment Gait Gait Assistance Required: Standby Assistance Distance (Feet) 125 Able to Maintain Weight Bearing Status Yes During Gait Assistive Devices Assistive Device Gait Belt Gait Deviations General Gait Pattern Antalgic Decreased Stride Length Decreased Feet Clearance Factors Limiting Gait Function Factors Limiting Gait Function Decreased Activity Tolerance Decreased Strength Pain Comments Gait Comments Pt unable to walk as far today with c/o feeling like his legs may buckle. BP at 116/76. SBA-CGa with ambulation and cues for pacing. Pt declined attempting stairs today, stating he just didn't feel right. M5 PT-IP Objective Assessments Start: 03/24/18 12:37 Freq: NEEDED Status: Active Protocol: Document 03/24/18 12:30 RCC (Rec: 03/24/18 12:51 RCC [id number]) Orientation Orientation/Cognition Level of Alertness Alert Gross Range of Motion Lower Extremity ROM Assessment Left Impaired Impairments L ankle DF unable to achieve neutral (~5 deg. lacking) due to immobility Strength Lower Extremity Strength Assessment Left Impaired Comments Strength Comments L ankle not tested due to current plantar fascia injury but definite decreased push off on the L foot Coordination Assessment Gross Coordination Gross Coordination WNL Sensation Assessment Sensation Light Touch Impaired Comments Sensation Comments bilateral neuropathy M6 PT-IP Treatment Start: 03/24/18 12:37 Freq: NEEDED Status: Active Protocol: Document 03/26/18 14:36 SA (Rec: 03/26/18 14:47 [id number]) Physical Therapy Treatment Exercises Exercises Ankle Pumps Gluteal Sets Heel Slides Supine Hip Abduction Education Education Provided Safety Other Treatments Other Treatment Performed Static/dynamic standing balance training with mobility tasks, lateral steps and pt assessing symptoms. M7 PT-IP Assessment and Plan Start: 03/24/18 12:37 Freq: NEEDED Status: Active Protocol: Document 03/26/18 14:36 SA (Rec: 03/26/18 14:47 [id number]) PT Summary Assessment and Plan Summary Impairments Pain Strength Transfers Gait Activity Tolerance Assessment Summary No c/o pain today but pt w c/o feeling unsteady with WBing activity. BP 116/76 and HR and 02 sats WNLs. NRG aware. Pt given LE exercises to complete in bed. Frequency of Treatment Frequency Of Treatment Once a Day Recommendations To Nursing Amount of Assist Needed 1 Person Assist Discharge Recommendations PT Discharge Recommendations Home with Assistance Outpatient PT
[2018-03-26] MEDS: CREON 4 EACH PO (17:00)
--- NOTE | 2018-03-26 17:37 | PC.NURSE ---
Addendum entered by Jane Payton R.N. 03/26/18 21:29: 2045- Pts' IV port came loose, after cleaning up and changing linen, replaced with new port, infusing well, no new issues. IV. fluids infusing. Original Note: Addendum entered by Jane Payton R.N. 03/26/18 21:29: 1700- Pt declined to take all 4 capsules for a full dose of Creon. Pt took one capsule. Original Note: Begining of shift pt was obtended and needed 2PA to BRP, pt knocked down IV pole. Later on pt did not remember doing so, or remember this writers assessment. Back to bed from BR and now snoring. Woke up for CBG, which was 56, pt ate two popcicles, drank palmer insure, CBG- 78, pt drank cran juice x2 and one more popcicle. Pt took only 1 cap of his own meds, Creon, given at meal time. Usual dose is 4 caps. Chronic nausea with round clock PRN staggered antiemetics. BT+, denies pain at this time. 1730- Pt much more alert, watching TV, eating another popcicle. call light in reach and bed alarm on for safety.
[2018-03-26] MEDS: AMOXICILLIN/CLAV 875/125 MG 1 TAB PO (22:03)
[2018-03-26] MEDS: FLUTICASONE 120 SPRAY/16 GM SPRAY.SUSP NASAL (22:07)
[2018-03-27] VITALS (9 sets, daily range): BP systolic 99–142; BP diastolic 54–75; PULSE 60–72; RESP 14–18; TEMP 36.1–37; O2SAT 94–98
[2018-03-27] MEDS: ONDANSETRON 4 MG ODT 8 MG PO ×3 (01:47→19:28)
[2018-03-27] MEDS: diphenhydrAMINE 50 MG/ML VIAL 25 MG IV (03:07)
[2018-03-27] MEDS: HYDROMORPHONE 1 MG INJ IV ×4 (03:09→20:56)
[2018-03-27 05:33] LABS: Add Manual Diff / Slide Review NO; Basophils Percent Auto 0.4 % (0-2); Eosinophils Percent Auto 3.3 % (2-4); Hematocrit 39.1 % (41-53); Hemoglobin 13.1 g/dL (13.5-17.5); Lymphocytes Percent Auto 20.5 % (25-40); Mean Corpuscular HGB Conc 33.4 % (30-36); Mean Corpuscular Hemoglobin 29.9 PG (26-34); Mean Corpuscular Volume 89.3 fL (80-100); Monocytes Percent Auto 8.8 % (3-14); Neutrophils Absolute Auto 4000 /uL (1500-7000); Platelet Count 191 X10^3/uL (150-400); Red Blood Cell Count 4.38 X10^6/uL (4.5-5.9); Red Cell Distribution Width 13.8 % (11.6-14.8)
[2018-03-27 05:39] LABS: Alanine Aminotransferase 34 IU/L (21-72); Albumin 3.3 g/dL (3.5-5.0); Albumin Globulin Ratio 1.5 (1.0-2.8); Alkaline Phosphatase 47 U/L (38-126); Aspartate Aminotransferase 16 IU/L (17-59); Bilirubin Total 0.5 mg/dL (0.2-1.3); Blood Urea Nitrogen 7 mg/dL (9-20); Calcium 8.4 mg/dL (8.4-10.2); Carbon Dioxide 25 mmol/L (22-32); Chloride 107 mmol/L (98-107); Estimated Glomerular Filt Rate > 60.0 mL/min (>60); Globulin 2.2 g/dL (1.7-4.1); Glucose 139 mg/dL (80-110); HEMOLYSIS < 15 (0-50); Potassium 3.3 mmol/L (3.4-5.1); Sodium 142 mmol/L (137-145); Total Protein 5.5 g/dL (6.3-8.2)
[2018-03-27] MEDS: diphenhydrAMINE 50 MG/ML VIAL 12.5 MG IV ×3 (06:03→20:55)
[2018-03-27] MEDS: SODIUM CHLORIDE 0.9% 1,000 ML 125 ML IV ×2 (06:08→21:06)
[2018-03-27] MEDS: PROMETHAZINE 25 MG TABLET PO ×3 (06:10→21:04)
[2018-03-27] MEDS: PANTOPRAZOLE 40 MG TABLET PO ×2 (06:51→20:54)
[2018-03-27] MEDS: INSULIN GLARGINE 100 UNIT/ML 3ML PEN 18 UNIT SUBCUT (08:40)
[2018-03-27] MEDS: AMOXICILLIN/CLAV 875/125 MG 1 TAB PO ×2 (08:44→20:53)
[2018-03-27] MEDS: metroNIDAZOLE 500 MG TABLET PO ×3 (08:44→20:54)
[2018-03-27] MEDS: DABIGATRAN 75 MG CAPSULE 150 MG PO ×2 (08:44→20:53)
[2018-03-27] MEDS: LISINOPRIL 20 MG TABLET PO (08:45)
[2018-03-27] MEDS: CLOPIDOGREL 75 MG TABLET PO (08:45)
[2018-03-27] MEDS: METOPROLOL IR 50 MG TABLET PO ×2 (08:45→20:54)
[2018-03-27] MEDS: CHOLECALCIFEROL (VITAMIN D3) 1,000 UNIT TABLET 1000 UNIT PO ×2 (08:45→20:53)
[2018-03-27] MEDS: METHYLPHENIDATE 5 MG TABLET 20 MG PO (11:14)
--- NOTE | 2018-03-27 11:27 | PM.PN.1 ---
Subjective Date Patient Seen: 03/27/18 Interval history: Patient reports he continues to have nausea. He is unable to tolerate any oral intake. He is trying some tea but has taken minimal clear liquids. Patient also has minimal abdominal pain. Sounds like he has not been getting his usual dose of scheduled Zofran, and Creon. The dosages have been adjusted. He does not appear to be making much progress he has been unable to eat and continues to have significant nausea. Exam Vital Signs (past 8 hours): - 03/27/18 07:30 03/27/18 08:05 Temperature 98.0 F Pulse Rate 64 Respiratory Rate 14 Blood Pressure 99/54 L Pulse Oximetry 97 96 Oxygen Delivery Method Room Air Oxygen Flow Rate 0 Narrative Exam Narrative: Ill appearing gentleman Lungs: Clear to auscultation Cardiac exam: Regular rate rhythm normal S1 and S2 Abdomen: Soft mildly tender hypoactive bowel tones no organosplenomegaly. No rebound tend, no board-like rigidity Extremity: No edema Objective Labs Result Diagrams: 03/27/18 05:07 03/27/18 05:07 Labs: Laboratory Results - last 24 hr 03/27/18 03/27/18 05:07 05:07 WBC 6.0 RBC 4.38 L Hgb 13.1 L Hct 39.1 L MCV 89.3 MCH 29.9 MCHC 33.4 RDW 13.8 Plt Count 191 Neut % (Auto) 67.0 Lymph % (Auto) 20.5 L [place] % (Auto) 8.8 Eos % (Auto) 3.3 Baso % (Auto) 0.4 Neut # (Auto) 4000 Sodium 142 Potassium 3.3 L Chloride 107 Carbon Dioxide 25 BUN 7 L Creatinine 0.70 Estimated GFR > 60.0 BUN/Creatinine Ratio 10.0 Glucose 139 H Calcium 8.4 Total Bilirubin 0.5 AST 16 L ALT 34 Alkaline Phosphatase 47 Total Protein 5.5 L Albumin 3.3 L Globulin 2.2 Albumin/Globulin Ratio 1.5 Assessment & Plan (1) Atrial fibrillation: Problem details: Rate controlled no intervention needed Current visit: No Status: Acute (2) Pancreatitis: Problem details: Will continue Creon Current visit: No Status: Acute (3) Nausea vomiting and diarrhea: Problem details: Continue anti nausea medication. Should his nausea continue will discontinue flat Current visit: No Status: Acute (4) Acute colitis: Problem details: Continue antibiotics for now Current visit: Yes Status: Acute (5) Diabetes mellitus: Problem details: Continue current insulin coverage Current visit: Yes Status: Acute
--- NOTE | 2018-03-27 11:42 | PT.IPTN ---
Current Diagnoses Type 2 diabetes mellitus without complications (03/24/18) Unspecified atrial fibrillation (03/24/18) Noninfective gastroenteritis and colitis, unspecified (03/24/18) Acute pancreatitis without necrosis or infection, unspecified (03/24/18) Unspecified abdominal pain (03/24/18) Nausea with vomiting, unspecified (03/24/18) Diarrhea, unspecified (03/24/18) Physical Therapy Treatment Note M2 PT-IP Current Condition Start: 03/24/18 12:37 Freq: NEEDED Status: Active Protocol: Document 03/24/18 12:30 RCC (Rec: 03/24/18 12:51 RCC [id number]) Physical Therapy Current Condition Current Condition Evaluation Date 03/24/18 Treatment Diagnosis abdominal pain, impaired mobility Precautions Other Precautions pt self-reporting he is allowed up without walking boot on LLE up to 4 hrs/day Weight Bearing Status Weight Bearing Status Weight Bear as Tolerated M3 PT-IP Subjective Start: 03/24/18 12:37 Freq: NEEDED Status: Active Protocol: Document 03/27/18 11:30 SA (Rec: 03/27/18 11:42 SA [id number]) Subjective Physical Therapy Visit Type Type Treatment Note Visit Start Time 11:04 Visit Stop Time 11:28 Total Visit Minutes 24 Number of [employer] Visits 2 Physical Therapy Visit Comments Patient Comments Pt reports having a narcoleptic episode last night where he got up to go to bathroom and knocked over IV pole. Pt does not remember incident but it was reported to him by Nursing. No nausea this AM. Therapy Pain Assessment Pain When Pain Assessed During Mobility Pain Present Pain Present Denied Pain M4 PT-IP Mobility and Gait Start: 03/24/18 12:37 Freq: NEEDED Status: Active Protocol: Document 03/27/18 11:30 SA (Rec: 03/27/18 11:42 [id number]) PT-Bed Mobility Assessment Rolling Level of Assist Independent Supine to Sit Supine to Sit Independent Sit to Supine Sit to Supine Independent Scooting Scooting to Edge of Bed Independent Scooting Up and Down in Bed Independent PT-Transfer Assessment Sit to and From Stand Sit to and from Stand Standby Assistance Use of Upper Extremities Equipment Transfer Assistive Device Gait Belt Transfers Transfer Destination Bed Chair Transfer Technique Stand Step Pivot Transfer Ability Level of Assist Standby Assistance Comments Mobility Comments Pt donned boot on LLE IND while seted EOB. BP122/74 at start of session. Gait Assessment Gait Gait Assistance Required: Standby Assistance Distance (Feet) 250 Able to Maintain Weight Bearing Status Yes During Gait Assistive Devices Assistive Device Gait Belt Orthotic/Prosthetic Devices or Brace: Yes Gait Deviations General Gait Pattern Antalgic Decreased Stride Length Decreased Feet Clearance Factors Limiting Gait Function Factors Limiting Gait Function Decreased Activity Tolerance Decreased Strength Pain Comments Gait Comments Pt feeling more steady today and boot helping, no use of AD but pt manages IV pole. Minor LOB x 1 with self correction. Stair Climbing Assessment Evaluation Level of Assist On Stairs Contact Guard Assistance 1 Person Assistance Devices Stair Climbing Assistive Devices Left Railing Right Railing Technique/Endurance Stair Climbing Direction Ascend and Descend Stair Climbing Technique Step Over Step Number of Steps Climbed 3 Query Text: Stair Climbing Set # Repetitions (reps) 1 Comments Stair Climbing Comments Cues for safety and pacing. Uses B rails and appears steady. M5 PT-IP Objective Assessments Start: 03/24/18 12:37 Freq: NEEDED Status: Active Protocol: Document 03/24/18 12:30 [facility] (Rec: 03/24/18 12:51 RCC [id number]) Orientation Orientation/Cognition Level of Alertness Alert Gross Range of Motion Lower Extremity ROM Assessment Left Impaired Impairments L ankle DF unable to achieve neutral (~5 deg. lacking) due to immobility Strength Lower Extremity Strength Assessment Left Impaired Comments Strength Comments L ankle not tested due to current plantar fascia injury but definite decreased push off on the L foot Coordination Assessment Gross Coordination Gross Coordination WNL Sensation Assessment Sensation Light Touch Impaired Comments Sensation Comments bilateral neuropathy M6 PT-IP Treatment Start: 03/24/18 12:37 Freq: NEEDED Status: Active Protocol: Document 03/27/18 11:30 SA (Rec: 03/27/18 11:42 SA [id number]) Physical Therapy Treatment Exercises Exercises Ankle Pumps Gluteal Sets Heel Slides Supine Hip Abduction Education Education Provided Safety M7 PT-IP Assessment and Plan Start: 03/24/18 12:37 Freq: NEEDED Status: Active Protocol: Document 03/27/18 11:30 SA (Rec: 03/27/18 11:42 SA [id number]) PT Summary Assessment and Plan Summary Assessment Summary Pt with decreased nausea and improved ambulation ability today. Pt wanted to don boot for gait and was able to do so IND. Pt left seated in chair with call light, ready to have shower with Nursing. Frequency of Treatment Frequency Of Treatment Once a Day Recommendations To Nursing Amount of Assist Needed 1 Person Assist Discharge Recommendations PT Discharge Recommendations Home with Assistance Outpatient PT
[2018-03-27] MEDS: POTASSIUM CHLORIDE 40 MEQ in SODIUM CHLORIDE 0.9% 500 ML 130 ML IV (13:46)
--- NOTE | 2018-03-27 14:06 | PC.NURSE ---
GI: Was able to tolerate oral meds for his antibiotics. However still wants the dilaudid IV and this was given x1. Pt reports pain med effective. Still has nausea off and on, received zofran x1 and phenergan x1 w/fair relief. However pt has eaten almost nothing except he has been drinking tea. Noc shift bg down to 62, given ensure, up to the 150's, however didnt want ssc since he would not be eating. This was done and Dr. Grimaldo made aware. Noon bg was 100. Did take his ritalin at noon as he wanted to get up and shower. Shower taken. Tele on. K rider is up and infusing. Cont w/poc.
[2018-03-27] MEDS: OXYCODONE IR 5 MG TABLET PO (16:56)
[2018-03-27] MEDS: OXYCODONE IR 10 MG TABLET PO (20:57)
[2018-03-28] VITALS (7 sets, daily range): BP systolic 104–130; BP diastolic 66–72; PULSE 61–75; RESP 15–18; TEMP 36.4–36.7; O2SAT 94–99; BMI 26.7
--- NOTE | 2018-03-28 | DI.RAD.S_ITS ---
PROCEDURE: XR KUB INDICATIONS: r/o SBO TECHNIQUE: One view of the abdomen acquired. COMPARISON: None. FINDINGS: Surgical changes and devices: None. Bowel: Bowel gas pattern is nonspecific there are borderline dilated small bowel loops in the left abdomen however no definite transition point. Gas is present within the rectal vault Soft tissues: No suspicious abdominal calcifications. Visualized solid organ contours appear normal in size. Bones: No suspicious bony lesions. Diffuse discogenic changes. IMPRESSION: No specific evidence of bowel obstruction seen at this time although if the patient's symptoms do not improve, continued surveillance with abdominal series radiographs could be performed. Dictated by: Clif Munguia M.D. on 03/28/2018 at 15:40 Approved by: Clif Munguia M.D. on 03/28/2018 at 15:46
[2018-03-28] MEDS: SODIUM CHLORIDE 0.9% 1,000 ML 125 ML IV (03:57)
[2018-03-28 05:34] LABS: Add Manual Diff / Slide Review NO; Basophils Percent Auto 0.3 % (0-2); Eosinophils Percent Auto 5.8 % (2-4); Hematocrit 37.7 % (41-53); Hemoglobin 12.6 g/dL (13.5-17.5); Lymphocytes Percent Auto 30.5 % (25-40); Mean Corpuscular HGB Conc 33.4 % (30-36); Mean Corpuscular Hemoglobin 29.7 PG (26-34); Monocytes Percent Auto 9.1 % (3-14); Neutrophils Absolute Auto 2800 /uL (1500-7000); Neutrophils Percent Auto 54.3 % (50-75); Platelet Count 173 X10^3/uL (150-400); Red Blood Cell Count 4.23 X10^6/uL (4.5-5.9); Red Cell Distribution Width 13.9 % (11.6-14.8); White Blood Cell Count 5.2 X10^3/uL (4.5-11.0)
[2018-03-28] MEDS: diphenhydrAMINE 50 MG/ML VIAL 12.5 MG IV ×2 (05:35→22:12)
[2018-03-28 05:48] LABS: Alanine Aminotransferase 27 IU/L (21-72); Albumin 3.1 g/dL (3.5-5.0); Albumin Globulin Ratio 1.5 (1.0-2.8); Alkaline Phosphatase 45 U/L (38-126); Aspartate Aminotransferase 13 IU/L (17-59); BUN Creatinine Ratio 7.1 (6-22); Bilirubin Total 0.5 mg/dL (0.2-1.3); Blood Urea Nitrogen 5 mg/dL (9-20); Calcium 8.1 mg/dL (8.4-10.2); Carbon Dioxide 25 mmol/L (22-32); Chloride 110 mmol/L (98-107); Estimated Glomerular Filt Rate > 60.0 mL/min (>60); Globulin 2.1 g/dL (1.7-4.1); Glucose 81 mg/dL (80-110); HEMOLYSIS < 15 (0-50); Potassium 3.7 mmol/L (3.4-5.1); Sodium 143 mmol/L (137-145); Total Protein 5.2 g/dL (6.3-8.2)
--- NOTE | 2018-03-28 05:49 | PC.NURSE ---
pt slept all night. no complaints of pain or n/v. BTx4 hypo. NS@125. call light in reach. bed alarm active.
[2018-03-28] MEDS: ONDANSETRON 4 MG ODT 8 MG PO (07:07)
[2018-03-28] MEDS: PANTOPRAZOLE 40 MG TABLET PO ×2 (07:07→21:11)
[2018-03-28] MEDS: METHYLPHENIDATE 5 MG TABLET 20 MG PO (08:11)
[2018-03-28] MEDS: PROMETHAZINE 25 MG SUPP PR (09:17)
[2018-03-28] MEDS: HYDROMORPHONE 1 MG INJ IV (09:34)
--- NOTE | 2018-03-28 10:00 | PT.IPTN ---
Current Diagnoses Type 2 diabetes mellitus without complications (03/24/18) Unspecified atrial fibrillation (03/24/18) Noninfective gastroenteritis and colitis, unspecified (03/24/18) Acute pancreatitis without necrosis or infection, unspecified (03/24/18) Unspecified abdominal pain (03/24/18) Nausea with vomiting, unspecified (03/24/18) Diarrhea, unspecified (03/24/18) Physical Therapy Treatment Note M3 PT-IP Subjective Start: 03/24/18 12:37 Freq: NEEDED Status: Active Protocol: Document 03/28/18 09:59 [facility] (Rec: 03/28/18 10:00 [facility] [id number]) Subjective Physical Therapy Visit Type Type Patient Unavailable Notes RN noted pt is nauseaus and was just given meds for nausea . Check back later in day.
[2018-03-28] MEDS: FLUTICASONE 120 SPRAY/16 GM SPRAY.SUSP NASAL (11:40)
[2018-03-28] MEDS: AMOXICILLIN/CLAV 875/125 MG 1 TAB PO ×2 (11:43→20:15)
[2018-03-28] MEDS: METOPROLOL IR 50 MG TABLET PO ×2 (11:44→20:19)
[2018-03-28] MEDS: CHOLECALCIFEROL (VITAMIN D3) 1,000 UNIT TABLET 1000 UNIT PO ×2 (11:44→20:15)
[2018-03-28] MEDS: DABIGATRAN 75 MG CAPSULE 150 MG PO ×2 (11:44→20:18)
[2018-03-28] MEDS: CLOPIDOGREL 75 MG TABLET PO (11:44)
[2018-03-28] MEDS: LISINOPRIL 20 MG TABLET PO (11:44)
--- NOTE | 2018-03-28 12:00 | P.PN_ITS ---
Subjective Date Patient Seen: 03/28/18 Interval history: Patient seen and examined. He reports he continues to have persistent nausea. He has been unable to tolerate significantly more than clear liquids. In addition he has had multiple episodes large volume diarrhea. He has had no crampy abdominal pain associated but does report some lower abdominal pain. He reports the pain is in the left lower quadrant. It is approximately 2/10 in intensity. He has had no hematemesis or melena or bright red blood per rectum. Exam Vital Signs (past 8 hours): - 03/28/18 07:50 03/28/18 11:15 Temperature 97.9 F 98.1 F Pulse Rate 65 75 Respiratory Rate 18 18 Blood Pressure 119/71 129/70 Pulse Oximetry 99 97 Oxygen Delivery Method Room Air Oxygen Flow Rate 0 Narrative Exam Narrative: Ill appearing male in no acute distress Lungs: Clear to auscultation Cardiac exam: Regular rate and rhythm normal S1 and S2 Abdomen: No board-like rigidity, no rebound tenderness, no palpable masses, mild tenderness in the left lower quadrant. Extremities no edema Extremities no edema Objective Labs Result Diagrams: 03/28/18 04:52 03/28/18 04:52 Labs: Laboratory Results - last 24 hr 03/28/18 03/28/18 04:52 04:52 WBC 5.2 RBC 4.23 L Hgb 12.6 L Hct 37.7 L MCV 89.0 MCH 29.7 MCHC 33.4 RDW 13.9 Plt Count 173 Neut % (Auto) 54.3 Lymph % (Auto) 30.5 [place] % (Auto) 9.1 Eos % (Auto) 5.8 H Baso % (Auto) 0.3 Neut # (Auto) 2800 Sodium 143 Potassium 3.7 Chloride 110 H Carbon Dioxide 25 BUN 5 L Creatinine 0.70 Estimated GFR > 60.0 BUN/Creatinine Ratio 7.1 Glucose 81 Calcium 8.1 L Total Bilirubin 0.5 AST 13 L ALT 27 Alkaline Phosphatase 45 Total Protein 5.2 L Albumin 3.1 L Globulin 2.1 Albumin/Globulin Ratio 1.5 Assessment & Plan (1) Nausea vomiting and diarrhea: Problem details: Continue anti nausea medication. Should his nausea continue will discontinue flagyl. Given diarrhea will check Cdiff. There is no evidence of infectious colitis. Will discontinue antibiotics. Current visit: No Status: Acute (2) Abdominal pain: Problem details: persists, will continue to follow. Abdominal CT demonstrates diverticulosis but no diverticulitis Qualifiers: Abdominal location: generalized Qualified Code(s): R10.84 - Generalized abdominal pain Current visit: Yes Status: Acute (3) Diabetes mellitus: Problem details: Continue current insulin coverage Current visit: Yes Status: Acute
[2018-03-28] MEDS: PROMETHAZINE 25 MG TABLET PO (13:27)
[2018-03-28] MEDS: KCL 20 MEQ IN NS 1,000 ML 84 MEQ IV (13:28)
[2018-03-28] MEDS: CREON 4 EACH PO ×3 (13:31→20:15)
[2018-03-28 14:30] LABS: Lipase 24 U/L (23-300)
--- NOTE | 2018-03-28 15:21 | PC.NURSE ---
Late Entry- Pt had a 200cc loose brown stool earlier this shift. Teary eyed earlier and just not feeling well. Pt given promethazine suppository earliier this am. He complained of nausea again a bit ago and given phenergan 25mg po. He is resting now and comfortable.
--- NOTE | 2018-03-28 15:32 | PT.IPTN ---
Current Diagnoses Type 2 diabetes mellitus without complications (03/24/18) Unspecified atrial fibrillation (03/24/18) Noninfective gastroenteritis and colitis, unspecified (03/24/18) Acute pancreatitis without necrosis or infection, unspecified (03/24/18) Generalized abdominal pain (03/24/18) Unspecified abdominal pain (03/24/18) Nausea with vomiting, unspecified (03/24/18) Diarrhea, unspecified (03/24/18) Physical Therapy Treatment Note M2 PT-IP Current Condition Start: 03/24/18 12:37 Freq: NEEDED Status: Active Protocol: Document 03/24/18 12:30 RCC (Rec: 03/24/18 12:51 RCC [id number]) Physical Therapy Current Condition Current Condition Evaluation Date 03/24/18 Treatment Diagnosis abdominal pain, impaired mobility Precautions Other Precautions pt self-reporting he is allowed up without walking boot on LLE up to 4 hrs/day Weight Bearing Status Weight Bearing Status Weight Bear as Tolerated M3 PT-IP Subjective Start: 03/24/18 12:37 Freq: NEEDED Status: Active Protocol: Document 03/28/18 15:30 SA (Rec: 03/28/18 15:31 SA [id number]) Subjective Physical Therapy Visit Type Type Patient Refusal Notes Pt with continued nausea, diarrhea and stomach ache. Declined PT this afternoon. M4 PT-IP Mobility and Gait Start: 03/24/18 12:37 Freq: NEEDED Status: Active Protocol: Document 03/27/18 11:30 SA (Rec: 03/27/18 11:42 SA [id number]) PT-Bed Mobility Assessment Rolling Level of Assist Independent Supine to Sit Supine to Sit Independent Sit to Supine Sit to Supine Independent Scooting Scooting to Edge of Bed Independent Scooting Up and Down in Bed Independent PT-Transfer Assessment Sit to and From Stand Sit to and from Stand Standby Assistance Use of Upper Extremities Equipment Transfer Assistive Device Gait Belt Transfers Transfer Destination Bed Chair Transfer Technique Stand Step Pivot Transfer Ability Level of Assist Standby Assistance Comments Mobility Comments Pt donned boot on LLE IND while seted EOB. BP122/74 at start of session. Gait Assessment Gait Gait Assistance Required: Standby Assistance Distance (Feet) 250 Able to Maintain Weight Bearing Status Yes During Gait Assistive Devices Assistive Device Gait Belt Orthotic/Prosthetic Devices or Brace: Yes Gait Deviations General Gait Pattern Antalgic Decreased Stride Length Decreased Feet Clearance Factors Limiting Gait Function Factors Limiting Gait Function Decreased Activity Tolerance Decreased Strength Pain Comments Gait Comments Pt feeling more steady today and boot helping, no use of AD but pt manages IV pole. Minor LOB x 1 with self correction. Stair Climbing Assessment Evaluation Level of Assist On Stairs Contact Guard Assistance 1 Person Assistance Devices Stair Climbing Assistive Devices Left Railing Right Railing Technique/Endurance Stair Climbing Direction Ascend and Descend Stair Climbing Technique Step Over Step Number of Steps Climbed 3 Query Text: Stair Climbing Set # Repetitions (reps) 1 Comments Stair Climbing Comments Cues for safety and pacing. Uses B rails and appears steady. M5 PT-IP Objective Assessments Start: 03/24/18 12:37 Freq: NEEDED Status: Active Protocol: Document 03/24/18 12:30 RCC (Rec: 03/24/18 12:51 RCC [id number]) Orientation Orientation/Cognition Level of Alertness Alert Gross Range of Motion Lower Extremity ROM Assessment Left Impaired Impairments L ankle DF unable to achieve neutral (~5 deg. lacking) due to immobility Strength Lower Extremity Strength Assessment Left Impaired Comments Strength Comments L ankle not tested due to current plantar fascia injury but definite decreased push off on the L foot Coordination Assessment Gross Coordination Gross Coordination WNL Sensation Assessment Sensation Light Touch Impaired Comments Sensation Comments bilateral neuropathy M6 PT-IP Treatment Start: 03/24/18 12:37 Freq: NEEDED Status: Active Protocol: Document 03/27/18 11:30 SA (Rec: 03/27/18 11:42 [id number]) Physical Therapy Treatment Exercises Exercises Ankle Pumps Gluteal Sets Heel Slides Supine Hip Abduction Education Education Provided Safety M7 PT-IP Assessment and Plan Start: 03/24/18 12:37 Freq: NEEDED Status: Active Protocol: Document 03/27/18 11:30 SA (Rec: 03/27/18 11:42 SA [id number]) PT Summary Assessment and Plan Summary Assessment Summary Pt with decreased nausea and improved ambulation ability today. Pt wanted to don boot for gait and was able to do so IND. Pt left seated in chair with call light, ready to have shower with Nursing. Frequency of Treatment Frequency Of Treatment Once a Day Recommendations To Nursing Amount of Assist Needed 1 Person Assist Discharge Recommendations PT Discharge Recommendations Home with Assistance Outpatient PT
--- NOTE | 2018-03-28 17:44 | PC.NURSE ---
Addendum entered by Carli Walter R.N. 03/28/18 21:40: Pt resting at intervals through evening. No nausea/vomiting this shift. Denies discomfort. IV continues as per orders. HS CBG = 138, pt requests 3u of S/S as per his home regimen. Call light w/in reach. Continue w/plan of care. Original Note: Pt watching TV. Denies any discomfort at this time. IV of NS w/KCl infusing @ 84cc/hr via pump w/o incidence. IV site LFA intact/patent. AC CBG = 107, no S/S Call light w/in reach.
[2018-03-28] MEDS: INSULIN ASPART 100 UNIT/ML 10ML VIAL SUBCUT (20:26)
[2018-03-29 00:50] VITALS: O2SAT 98
[2018-03-29] MEDS: KCL 20 MEQ IN NS 1,000 ML 84 MEQ IV ×2 (00:51→15:45)
[2018-03-29] MEDS: OXYCODONE IR 10 MG TABLET PO ×2 (01:50→17:37)
[2018-03-29] MEDS: ONDANSETRON 4 MG ODT 8 MG PO ×4 (02:11→20:49)
[2018-03-29 04:18] VITALS: BP 128/76; PULSE 62; RESP 18; TEMP 36.4; O2SAT 94
[2018-03-29] MEDS: diphenhydrAMINE 50 MG/ML VIAL 25 MG IV (04:20)
[2018-03-29] MEDS: METHYLPHENIDATE 5 MG TABLET 20 MG PO ×2 (05:59→12:50)
[2018-03-29] MEDS: PANTOPRAZOLE 40 MG TABLET PO ×2 (06:00→22:22)
[2018-03-29 06:03] LABS: BUN Creatinine Ratio 5.7 (6-22); Blood Urea Nitrogen 4 mg/dL (9-20); Calcium 8.2 mg/dL (8.4-10.2); Carbon Dioxide 24 mmol/L (22-32); Chloride 110 mmol/L (98-107); Estimated Glomerular Filt Rate > 60.0 mL/min (>60); Glucose 88 mg/dL (80-110); HEMOLYSIS < 15 (0-50); Magnesium 1.3 mg/dL (1.6-2.3); Potassium 3.7 mmol/L (3.4-5.1); Sodium 143 mmol/L (137-145)
[2018-03-29 06:54] LABS: Clostridium Difficile Tox PCR Negative for C. diff
--- NOTE | 2018-03-29 07:59 | P.PN_ITS ---
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 The patient is resting in bedside chair comfortably and in no acute distress. He denies headache, shortness of breath, chest pain, abdominal pain, nausea, vomiting, fever, chills, dysuria, or constipation. He does endorse chronic diarrhea at baseline with acute worsening that is slightly improved. He also reports improvement in his nausea and abdominal pain overall. He reports this episode is very reminiscent of his previous episodes of chronic pancreatitis but he was unable to control this episode with Percocet and Phenergan suppository due to vomiting and diarrhea. He has not vomited in several days. He is voiding and eliminating without difficulty. He is up ambulating without assistance. Exam Vital Signs (past 8 hours): - 03/29/18 00:50 03/29/18 04:18 Temperature 97.6 F Pulse Rate 62 Respiratory Rate 18 Blood Pressure 128/76 Pulse Oximetry 98 94 Oxygen Delivery Method Room Air Oxygen Flow Rate 0 Narrative Exam Narrative: General: Middle-aged gentleman sitting in bedside chair, in no acute distress, well-developed, well-nourished, appropriately interactive. HEENT: Normocephalic, atraumatic. External ears without defect. Pupils equal, round, and reactive to light. Anicteric sclerae, moist conjunctivae, and no lid lag. Neck: Supple with full range of motion. No lymphadenopathy or thyromegaly. Cardiovascular: Regular rate and rhythm without murmurs, rubs, or gallops appreciated. Pulmonary: Clear to auscultation bilaterally without crackles, wheezes, or rhonchi. Normal respiratory effort with no use of accessory muscles. Abdomen: Soft, bowel sounds present, mild tenderness to palpation, nondistended. No hepatosplenomegaly or masses appreciated. Extremities: No clubbing, cyanosis, or edema. Brace on left ankle. Skin: Normal temperature, turgor, and texture; no rash, ulcers, or subcutaneous nodules appreciated. Neurological: Cranial nerves grossly intact. Psychiatric: Normal mood and affect. Alert and oriented to person, place, and time. Objective Labs Result Diagrams: 03/28/18 04:52 03/29/18 05:30 Labs: Laboratory Results - last 24 hr 03/28/18 03/28/18 03/29/18 02:00 04:52 05:30 Sodium 143 Potassium 3.7 Chloride 110 H Carbon Dioxide 25 BUN 5 L Creatinine 0.70 Estimated GFR > 60.0 BUN/Creatinine Ratio 7.1 Glucose 81 Calcium 8.1 L Magnesium 1.3 L Total Bilirubin 0.5 AST 13 L ALT 27 Alkaline Phosphatase 45 Total Protein 5.2 L Albumin 3.1 L Globulin 2.1 Albumin/Globulin Ratio 1.5 Lipase 24 D C. difficile Tox (PCR) Negative for c. diff 03/29/18 05:30 Sodium 143 Potassium 3.7 Chloride 110 H Carbon Dioxide 24 BUN 4 L Creatinine 0.70 Estimated GFR > 60.0 BUN/Creatinine Ratio 5.7 L Glucose 88 Calcium 8.2 L Magnesium Total Bilirubin AST ALT Alkaline Phosphatase Total Protein Albumin Globulin Albumin/Globulin Ratio Lipase C. 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 1. Acute on chronic abdominal pain with nausea vomiting and diarrhea, present on admission. Improving. -Patient presented with worsening epigastric abdominal pain, nausea, vomiting , and diarrhea in the setting of chronic pancreatitis. Patient reports he is usually able to control these episodes with oxycodone and Phenergan suppository but was unable to control this time at home. -Differential diagnosis includes chronic pancreatitis (lipase normal as to be expected) vs. microscopic colitis vs. Ischemic colitis vs. less likely infectious colitis. -Continue antiemetics and as needed pain medication. -C diff negative. No evidence of infectious colitis, therefore, antibiotics were discontinued today. There is mild eosinophilia on CBC, therefore, ordered ova and parasite of stool but more likely a reaction to antibiotics. -CT abdomen and pelvis demonstrated diverticulosis without diverticulitis. No evidence of acute pancreatitis. -Patient tolerating clear liquid diet will slowly advance as tolerated. -Surgery has been consulted and signed off. We appreciate their recommendations and will consider re-consulting if abdominal pain and diarrhea does not improve vastly in the next 1-2 days. 2. Acute hypomagnesemia, not present on admission. Active. -Likely secondary to diarrhea. -Ordered magnesium sulfate 2 g IV x1. -Will continue check magnesium level daily and replete as necessary. 3. Chronic pancreatic insufficiency with secondary diabetes mellitus, present on admission. Stable. -Continue Creon 3 times a day with meals. -Continue Lantus 18 units daily which is decreased from his usual 18 units twice daily. Continue low-dose correctional scale insulin. 4. Hypertension, present on admission. Stable. -Continue lisinopril 20 mg daily and metoprolol tartrate 50 mg b.i.d. 5. Hyperlipidemia and peripheral vascular disease, chronic, present on admission. Stable. -continue clopidogrel 75 mg daily. 6. GERD, present on admission. Stable. -Continue pantoprazole 40 mg daily. 7. Paroxysmal atrial fibrillation, not present on admission. Stable. -Continue metoprolol tartrate 50 mg twice daily and Pradaxa 150 mg twice daily. Disposition: Likely to discharge home in the next 1-2 days depending upon how he tolerates p.o. intake and improvement in diarrhea to baseline. He will need close GI follow-up with his GI doctor Dr. Zee at the CT for possible colonoscopy.
--- NOTE | 2018-03-29 07:59 | PM.DS.1 ---
History of Present Illness Chief complaint: Nausea, Vomiting ABD Pain Discharge Providers Date of admission: 03/24/18 03:55 Primary care physician: Jacobo Ochoa MD Consults: 03/24/18 04:42 Consult to General Surgery Routine Comment: Consulting Provider: Columba Wilburn Reason for consultation: Severe Abdominal pain, possible sepsis Has provider been notified: Yes 03/24/18 11:22 Consult to Physical Therapy Evaluate & Treat Comment: Physician Instructions: Evaluate and Treat Discharge provider: Chika Grey DO Exam Vital Signs (past 8 hours): - 03/29/18 00:50 03/29/18 04:18 Temperature 97.6 F Pulse Rate 62 Respiratory Rate 18 Blood Pressure 128/76 Pulse Oximetry 98 94 Oxygen Delivery Method Room Air Oxygen Flow Rate 0 Objective Labs Result Diagrams: 03/28/18 04:52 03/29/18 05:30 Labs: Laboratory Results - last 24 hr 03/28/18 03/28/18 03/29/18 02:00 04:52 05:30 Sodium 143 Potassium 3.7 Chloride 110 H Carbon Dioxide 25 BUN 5 L Creatinine 0.70 Estimated GFR > 60.0 BUN/Creatinine Ratio 7.1 Glucose 81 Calcium 8.1 L Magnesium 1.3 L Total Bilirubin 0.5 AST 13 L ALT 27 Alkaline Phosphatase 45 Total Protein 5.2 L Albumin 3.1 L Globulin 2.1 Albumin/Globulin Ratio 1.5 Lipase 24 D C. difficile Tox (PCR) Negative for c. diff 03/29/18 05:30 Sodium 143 Potassium 3.7 Chloride 110 H Carbon Dioxide 24 BUN 4 L Creatinine 0.70 Estimated GFR > 60.0 BUN/Creatinine Ratio 5.7 L Glucose 88 Calcium 8.2 L Magnesium Total Bilirubin AST ALT Alkaline Phosphatase Total Protein Albumin Globulin Albumin/Globulin Ratio Lipase C. difficile Tox (PCR) Discharge Plan Discharge Med Rec/Prescriptions Prescriptions: No Action clopidogrel 75 mg Tablet 75 mg PO Q DAY Qty: 0 RF: 0 diclofenac sodium [Voltaren] 1 % gel 1 crys Topical PRN PRN (Reason: Analgesia) Qty: 0 RF: 0 ondansetron [Zofran ODT] 4 MG tablet,disintegrating 4 mg Sublingual Q6HP PRNQty: 10 RF: 0 methylphenidate HCl 20 mg tablet 20 mg PO TID Qty: 90 RF: 0 lisinopril 20 mg Tablet 20 mg PO DAILY RF: 0 omeprazole 40 mg Capsule,Delayed Release(Dr/Ec) 40 mg PO BID RF: 0 metoprolol tartrate 50 mg Tablet 50 mg PO BID RF: 0 oxycodone 5 mg Tablet 5 mg PO PRN PRN (Reason: Pain, Severe) RF: 0 insulin aspart U-100 [Novolog Flexpen U-100 Insulin] 100 unit/mL Insulin Pen 5 unit Sub-Q DIRECTED RF: 0 insulin glargine [Lantus Solostar U-100 Insulin] 100 unit/mL (3 mL) Insulin Pen 18 unit SUB-Q BID RF: 0 mhgfzy-pucyhkjk-xkeivwy [Creon] 6,000-19,000 -30,000 unit Capsule,Delayed Release(Dr/Ec) 1 cap PO DIRECTED RF: 0 tvlmew-setnjjnr-kxnjxzu [Creon] 36,000-114,000- 180,000 unit Capsule,Delayed Release(Dr/Ec) 1 cap PO DIRECTED RF: 0 promethazine 25 MG tablet 25 mg PO Q6HP PRN (Reason: Nausea) RF: 0 cholecalciferol (vitamin D3) [Vitamin D3] 1,000 unit Capsule 1,000 unit PO BID RF: 0 acetaminophen 325 MG tablet 325 mg PO Q4HP PRN (Reason: Pain, Mild) RF: 0 promethazine [Phenergan] 25 mg suppository 25 mg ID Q6H PRN (Reason: nausea and vomiting) Qty: 10 RF: 0 dabigatran etexilate 150 mg Capsule 150 mg PO BID RF: 0 Discharge Data Primary Care Provider: Jacobo Ochoa Attending Provider: Deb Martinez Admit Date/Time: 03/24/18 03:55
[2018-03-29 08:02] VITALS: BP 141/79; PULSE 57; RESP 18; TEMP 36.2; O2SAT 99
[2018-03-29] MEDS: OXYCODONE IR 5 MG TABLET PO (08:45)
[2018-03-29] MEDS: MAGNESIUM SULFATE 2 GM/50 ML PIGGYBACK IV (08:45)
[2018-03-29] MEDS: DABIGATRAN 75 MG CAPSULE 150 MG PO ×2 (08:45→22:19)
[2018-03-29] MEDS: CREON 4 EACH PO ×3 (08:45→16:52)
[2018-03-29] MEDS: FLUTICASONE 120 SPRAY/16 GM SPRAY.SUSP NASAL (08:45)
[2018-03-29] MEDS: CLOPIDOGREL 75 MG TABLET PO (08:45)
[2018-03-29] MEDS: METOPROLOL IR 50 MG TABLET PO ×2 (08:46→22:19)
[2018-03-29] MEDS: CHOLECALCIFEROL (VITAMIN D3) 1,000 UNIT TABLET 1000 UNIT PO ×2 (08:47→22:19)
[2018-03-29] MEDS: LISINOPRIL 20 MG TABLET PO (08:47)
[2018-03-29 11:10] VITALS: BP 143/81; PULSE 65; RESP 18; TEMP 36.8; O2SAT 98
[2018-03-29] MEDS: INSULIN GLARGINE 100 UNIT/ML 3ML PEN 18 UNIT SUBCUT (12:41)
[2018-03-29] MEDS: INSULIN ASPART 100 UNIT/ML INSULN PEN SUBCUT (12:48)
--- NOTE | 2018-03-29 14:13 | PT.IPTN ---
Current Diagnoses Type 2 diabetes mellitus without complications (03/24/18) Unspecified atrial fibrillation (03/24/18) Noninfective gastroenteritis and colitis, unspecified (03/24/18) Acute pancreatitis without necrosis or infection, unspecified (03/24/18) Generalized abdominal pain (03/24/18) Unspecified abdominal pain (03/24/18) Nausea with vomiting, unspecified (03/24/18) Diarrhea, unspecified (03/24/18) Physical Therapy Treatment Note M2 PT-IP Current Condition Start: 03/24/18 12:37 Freq: NEEDED Status: Active Protocol: Document 03/24/18 12:30 RCC (Rec: 03/24/18 12:51 RCC [id number]) Physical Therapy Current Condition Current Condition Evaluation Date 03/24/18 Treatment Diagnosis abdominal pain, impaired mobility Precautions Other Precautions pt self-reporting he is allowed up without walking boot on LLE up to 4 hrs/day Weight Bearing Status Weight Bearing Status Weight Bear as Tolerated M3 PT-IP Subjective Start: 03/24/18 12:37 Freq: NEEDED Status: Active Protocol: Document 03/29/18 09:50 HH (Rec: 03/29/18 14:12 [id number]) Subjective Physical Therapy Visit Type Type Treatment Note Visit Start Time 09:50 Visit Stop Time 10:20 Total Visit Minutes 30 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 I still have feeling of nausea and diarrhea on and off but not as much compared to before . I do use the bathroom by myself by holding on to IV pole. Therapy Pain Assessment Pain When Pain Assessed During Mobility Pain Present Pain Present Pain Reported Location Abdomen Intensity 5 Scale Used Numeric (1 - 10) Description Aching Pain Management Techniques Re-positioning M4 PT-IP Mobility and Gait Start: 03/24/18 12:37 Freq: NEEDED Status: Active Protocol: Document 03/29/18 09:50 HH (Rec: 03/29/18 14:12 [id number]) PT-Transfer Assessment Sit to and From Stand Sit to and from Stand Independent Equipment Transfer Assistive Device None Gait Belt Transfers Transfer Destination Bed Chair Toilet Transfer Technique Stand Step Pivot Transfer Ability Level of Assist Standby Assistance Comments Mobility Comments Pt did not require AD today with transfer but SBA. Pt apparently presents LOB with head turns during mobility. Pt explains his balance will be off whenever he has nausea feeling. Recommended pt to be cautious with his head turn during mobility. However, pt demonstrates safe transfer without acute distress. Gait Assessment Gait Gait Assistance Required: Standby Assistance Distance (Feet) 500 Able to Maintain Weight Bearing Status Yes During Gait Assistive Devices Assistive Device None Gait Belt Gait Deviations General Gait Pattern Within Normal Limits Factors Limiting Gait Function Factors Limiting Gait Function Pain Poor Balance Comments Gait Comments Pt roselyn tx well and amb without AD for the first time since IE. Pt reports my balance is pretty good today except head turns because of recent nausea feeling. Pt did not request for rest today and able to amb 500 feet with one trial. Pt did not show signs of acute distress and fatigue. Stair Climbing Assessment Evaluation Level of Assist On Stairs Standby Assistance Devices Stair Climbing Assistive Devices None Technique/Endurance Stair Climbing Direction Ascend and Descend Stair Climbing Technique Step Over Step Number of Steps Climbed 10 Query Text: PT-Balance Assessment Sitting Balance and Reactions Static Sitting Balance Ability Normal Dynamic Sitting Balance Ability Normal Standing Balance and Reactions Static Standing Balance Ability Normal Dynamic Standing Balance Ability Good M5 PT-IP Objective Assessments Start: 03/24/18 12:37 Freq: NEEDED Status: Active Protocol: Document 03/24/18 12:30 RCC (Rec: 03/24/18 12:51 RCC [id number]) Orientation Orientation/Cognition Level of Alertness Alert Gross Range of Motion Lower Extremity ROM Assessment Left Impaired Impairments L ankle DF unable to achieve neutral (~5 deg. lacking) due to immobility Strength Lower Extremity Strength Assessment Left Impaired Comments Strength Comments L ankle not tested due to current plantar fascia injury but definite decreased push off on the L foot Coordination Assessment Gross Coordination Gross Coordination WNL Sensation Assessment Sensation Light Touch Impaired Comments Sensation Comments bilateral neuropathy M6 PT-IP Treatment Start: 03/24/18 12:37 Freq: NEEDED Status: Active Protocol: Document 03/29/18 09:50 HH (Rec: 03/29/18 14:13 HH [id number]) Physical Therapy Treatment Other Treatments Other Treatment Performed heel strike gait training M7 PT-IP Assessment and Plan Start: 03/24/18 12:37 Freq: NEEDED Status: Active Protocol: Document 03/29/18 09:50 HH (Rec: 03/29/18 14:12 HH [id number]) PT Summary Assessment and Plan Summary Impairments Strength Balance Activity Tolerance Progress Towards Goals Progressing Toward Goals Assessment Summary Pt roselyn tx well today with increased amb distance without using AD for the first time since IE. Pt apparently shows LOB while head turns during mobility. He reports primarily due to his nausea feeling. But overall, pt reports he is feeling better and stronger. D /C home once his pain is control. Goals Bed Mobility Goal Independent Transfer Goal Independent Gait Goal Independent Gait Distance 800 Other Goals without AD Days to Meet Goals 3 Frequency of Treatment Frequency Of Treatment Once a Day Treatment Plan Physical Therapy Treatment Plan Gait Training Therapeutic Exercise Other Recommendations and Next Treatment sit to stand ex Focus single leg balance head turn during mobiltiy with CGA Recommendations To Nursing Amount of Assist Needed 1 Person Assist Discharge Recommendations PT Discharge Recommendations Home
--- NOTE | 2018-03-29 15:15 | PC.NURSE ---
Pts diet upgraded to a cardiac ada diet. Pt is on a special diet. He cannot have animal fat or dairy products, only fat free milk. A list of foods that he cannot have are down with dietary as well as foods that he does tolerate.
[2018-03-29 15:30] VITALS: BP 127/70; PULSE 68; RESP 16; TEMP 36.7; O2SAT 99
--- NOTE | 2018-03-29 16:00 | DIET.PN ---
Assess: Diet order progressed to heart health/cardiac. Discussed in detail patient dietary concerns/intolerances. Provided dietary staff with dietary recommendations. Note: patient was drinking a glucerna during assessment after consuming 1/2 turkey sandwich. Was very pleased this was settling to him. Avoid: animal fats, most cheeses May have: white fish, chicken breast, lentils, quinoa Limits: 4 oz of animal protein/ day
[2018-03-29] MEDS: PROMETHAZINE 25 MG TABLET PO (18:21)
[2018-03-29 19:55] VITALS: BP 126/77; PULSE 66; RESP 18; TEMP 36.7; O2SAT 95
[2018-03-29] MEDS: SUCRALFATE 1 GM TABLET PO (20:50)
[2018-03-30] VITALS (7 sets, daily range): BP systolic 100–133; BP diastolic 56–79; PULSE 60–69; RESP 16–18; TEMP 36.3–36.8; O2SAT 96–98
[2018-03-30] MEDS: ONDANSETRON 4 MG ODT 8 MG PO ×3 (00:17→08:28)
[2018-03-30 05:45] LABS: Add Manual Diff / Slide Review NO; Basophils Percent Auto 0.3 % (0-2); Eosinophils Percent Auto 4.6 % (2-4); Hematocrit 38.3 % (41-53); Mean Corpuscular HGB Conc 33.9 % (30-36); Mean Corpuscular Hemoglobin 29.6 PG (26-34); Mean Corpuscular Volume 87.4 fL (80-100); Monocytes Percent Auto 9.5 % (3-14); Neutrophils Absolute Auto 3700 /uL (1500-7000); Neutrophils Percent Auto 63.6 % (50-75); Platelet Count 179 X10^3/uL (150-400); Red Blood Cell Count 4.38 X10^6/uL (4.5-5.9); Red Cell Distribution Width 13.9 % (11.6-14.8); White Blood Cell Count 5.8 X10^3/uL (4.5-11.0)
[2018-03-30 05:53] LABS: Alanine Aminotransferase 23 IU/L (21-72); Albumin 3.3 g/dL (3.5-5.0); Albumin Globulin Ratio 1.5 (1.0-2.8); Alkaline Phosphatase 49 U/L (38-126); Aspartate Aminotransferase 14 IU/L (17-59); BUN Creatinine Ratio 7.1 (6-22); Bilirubin Total 0.3 mg/dL (0.2-1.3); Blood Urea Nitrogen 5 mg/dL (9-20); Calcium 8.5 mg/dL (8.4-10.2); Carbon Dioxide 25 mmol/L (22-32); Chloride 109 mmol/L (98-107); Estimated Glomerular Filt Rate > 60.0 mL/min (>60); Globulin 2.2 g/dL (1.7-4.1); Glucose 107 mg/dL (80-110); HEMOLYSIS < 15 (0-50); Magnesium 1.6 mg/dL (1.6-2.3); Potassium 3.4 mmol/L (3.4-5.1); Sodium 145 mmol/L (137-145); Total Protein 5.5 g/dL (6.3-8.2)
[2018-03-30] MEDS: METHYLPHENIDATE 5 MG TABLET 20 MG PO ×2 (06:43→12:12)
[2018-03-30] MEDS: PANTOPRAZOLE 40 MG TABLET PO ×2 (06:44→21:06)
--- NOTE | 2018-03-30 07:47 | PM.PN.1 ---
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 The patient is resting in bedside chair comfortably and in no acute distress. He denies headache, shortness of breath, chest pain, abdominal pain, nausea, vomiting, fever, chills, dysuria, or constipation. He does endorse chronic diarrhea at baseline with acute worsening which has resolved. He continues to have nausea and abdominal pain after eating. He has not vomited in several days. He is tolerating normal bland and soft diet. He is voiding and eliminating without difficulty. He is up ambulating without assistance. Exam Vital Signs (past 8 hours): - 03/30/18 00:15 03/30/18 03:55 Temperature 97.3 F L 97.4 F L Pulse Rate 61 60 Respiratory Rate 16 16 Blood Pressure 112/63 100/56 L Pulse Oximetry 96 98 Oxygen Delivery Method Room Air Oxygen Flow Rate 0 Narrative Exam Narrative: General: Middle-aged gentleman sitting in bedside chair, in no acute distress, well-developed, well-nourished, appropriately interactive. HEENT: Normocephalic, atraumatic. External ears without defect. Pupils equal, round, and reactive to light. Anicteric sclerae, moist conjunctivae, and no lid lag. Neck: Supple with full range of motion. No lymphadenopathy or thyromegaly. Cardiovascular: Regular rate and rhythm without murmurs, rubs, or gallops appreciated. Pulmonary: Clear to auscultation bilaterally without crackles, wheezes, or rhonchi. Normal respiratory effort with no use of accessory muscles. Abdomen: Soft, bowel sounds present, nontender, nondistended. No hepatosplenomegaly or masses appreciated. Extremities: No clubbing, cyanosis, or edema. Skin: Normal temperature, turgor, and texture; no rash, ulcers, or subcutaneous nodules appreciated. Neurological: Cranial nerves grossly intact. Psychiatric: Normal mood and affect. Alert and oriented to person, place, and time. Objective Labs Result Diagrams: 03/30/18 05:08 03/30/18 05:08 Labs: Laboratory Results - last 24 hr 03/30/18 03/30/18 05:08 05:08 WBC 5.8 RBC 4.38 L Hgb 13.0 L Hct 38.3 L MCV 87.4 MCH 29.6 MCHC 33.9 RDW 13.9 Plt Count 179 Neut % (Auto) 63.6 Lymph % (Auto) 22.0 L [place] % (Auto) 9.5 Eos % (Auto) 4.6 H Baso % (Auto) 0.3 Neut # (Auto) 3700 Sodium 145 Potassium 3.4 Chloride 109 H Carbon Dioxide 25 BUN 5 L Creatinine 0.70 Estimated GFR > 60.0 BUN/Creatinine Ratio 7.1 Glucose 107 Calcium 8.5 Magnesium 1.6 Total Bilirubin 0.3 AST 14 L ALT 23 Alkaline Phosphatase 49 Total Protein 5.5 L Albumin 3.3 L Globulin 2.2 Albumin/Globulin Ratio 1.5 Assessment & Plan Plan: Assessment/Plan Narrative: Jann Diehl is a 63-year-old male with a past medical history significant for chronic pancreatic insufficiency on Creon with steatorrhea and secondary diabetes mellitus, 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 1. Acute on chronic abdominal pain with nausea vomiting and diarrhea, present on admission. Improving. -Patient presented with worsening abdominal pain, nausea, vomiting, and diarrhea in the setting of chronic pancreatitis. Patient reports he is usually able to control these episodes with oxycodone and Phenergan suppository but was unable to control this time at home. -Differential diagnosis includes chronic pancreatitis (lipase normal as to be expected) vs. microscopic colitis vs. ischemic colitis vs. less likely infectious colitis. Recommended he follow up with his GI at the [facility], Dr. Zee, for overdue colonoscopy (12+ years) to assess for microscopic colitis and other pathology and possible ERCP to delineate pancreatic anatomy (i.e. pancreatic divisum). -Continue antiemetics and as needed pain medication. -C diff negative. No evidence of infectious colitis, therefore, antibiotics were discontinued today. There is mild eosinophilia on CBC, therefore, GI panel for ova and parasite and to rule out infectious colitis but more likely a reaction to antibiotics. -CT abdomen and pelvis demonstrated diverticulosis without diverticulitis. No evidence of acute pancreatitis. -Patient tolerating clear liquid diet will slowly advance as tolerated. -Surgery has been consulted and signed off. We appreciate their recommendations and will consider re-consulting if abdominal pain and diarrhea does not improve vastly in the next 1-2 days. 2. Acute hypomagnesemia, not present on admission. Resolved. -Likely secondary to diarrhea. -Ordered magnesium sulfate 2 g IV x1. -Will continue check magnesium level daily and replete as necessary. 3. Chronic pancreatic insufficiency with secondary diabetes mellitus, present on admission. Stable. -Continue Creon 3 times a day with meals. -Continue Lantus 18 units daily which is decreased from his usual 18 units twice daily. Continue low-dose correctional scale insulin. 4. Hypertension, present on admission. Stable. -Continue lisinopril 20 mg daily and metoprolol tartrate 50 mg b.i.d. 5. Hyperlipidemia and peripheral vascular disease, chronic, present on admission. Stable. -Continue clopidogrel 75 mg daily. 6. GERD, present on admission. Stable. -Continue pantoprazole 40 mg daily. 7. Paroxysmal atrial fibrillation, not present on admission. Stable. -Continue metoprolol tartrate 50 mg twice daily and Pradaxa 150 mg twice daily. Disposition: Likely to discharge home in the next 1-2 days depending upon how he tolerates p.o. intake and improvement in nausea and diarrhea to baseline. He will need close GI follow-up with his GI doctor Dr. Zee at the [facility] for colonoscopy and possible ERCP to explore pancreatic anatomy.
[2018-03-30] MEDS: CREON 4 EACH PO ×3 (08:28→16:59)
[2018-03-30] MEDS: POTASSIUM CHLORIDE 40 MEQ in SODIUM CHLORIDE 0.9% 500 ML 130 ML IV (09:37)
[2018-03-30] MEDS: MAGNESIUM SULFATE 2 GM/50 ML PIGGYBACK IV (09:37)
[2018-03-30] MEDS: FLUTICASONE 120 SPRAY/16 GM SPRAY.SUSP NASAL (09:37)
[2018-03-30] MEDS: METOPROLOL IR 50 MG TABLET PO ×2 (09:38→21:06)
[2018-03-30] MEDS: LISINOPRIL 20 MG TABLET PO (09:38)
[2018-03-30] MEDS: DABIGATRAN 75 MG CAPSULE 150 MG PO ×2 (09:38→21:06)
[2018-03-30] MEDS: CHOLECALCIFEROL (VITAMIN D3) 1,000 UNIT TABLET 1000 UNIT PO (09:38)
[2018-03-30] MEDS: CLOPIDOGREL 75 MG TABLET PO (09:38)
[2018-03-30] MEDS: INSULIN GLARGINE 100 UNIT/ML 3ML PEN 18 UNIT SUBCUT (09:39)
[2018-03-30] MEDS: OXYCODONE IR 5 MG TABLET PO (09:41)
[2018-03-30] MEDS: PROMETHAZINE 25 MG TABLET PO (09:43)
--- NOTE | 2018-03-30 11:15 | PT.IPTN ---
Current Diagnoses Type 2 diabetes mellitus without complications (03/24/18) Unspecified atrial fibrillation (03/24/18) Noninfective gastroenteritis and colitis, unspecified (03/24/18) Acute pancreatitis without necrosis or infection, unspecified (03/24/18) Generalized abdominal pain (03/24/18) Unspecified abdominal pain (03/24/18) Nausea with vomiting, unspecified (03/24/18) Diarrhea, unspecified (03/24/18) Physical Therapy Treatment Note M2 PT-IP Current Condition Start: 03/24/18 12:37 Freq: NEEDED Status: Active Protocol: Document 03/24/18 12:30 RCC (Rec: 03/24/18 12:51 RCC [id number]) Physical Therapy Current Condition Current Condition Evaluation Date 03/24/18 Treatment Diagnosis abdominal pain, impaired mobility Precautions Other Precautions pt self-reporting he is allowed up without walking boot on LLE up to 4 hrs/day Weight Bearing Status Weight Bearing Status Weight Bear as Tolerated M3 PT-IP Subjective Start: 03/24/18 12:37 Freq: NEEDED Status: Active Protocol: Document 03/30/18 11:15 AB (Rec: 03/30/18 12:00 AB [id number]) Subjective Physical Therapy Visit Type Type Treatment Note Visit Start Time 11:15 Visit Stop Time 11:35 Total Visit Minutes 20 Number of BECK TENDER Visits 0 Physical Therapy Visit Comments Patient Comments pt agreeable to do PT Therapy Pain Assessment Pain When Pain Assessed At Rest Pain Present Pain Present Pain Reported Location Abdomen Intensity 3 Scale Used Numeric (1 - 10) Pain Management Techniques Timing of Activity with Medications M4 PT-IP Mobility and Gait Start: 03/24/18 12:37 Freq: NEEDED Status: Active Protocol: Document 03/30/18 11:15 AB (Rec: 03/30/18 12:00 AB [id number]) PT-Transfer Assessment Sit to and From Stand Sit to and from Stand Standby Assistance Gait Assessment Gait Gait Assistance Required: Standby Assistance Contact Guard Assist Distance (Feet) 300 Able to Maintain Weight Bearing Status Yes During Gait Assistive Devices Assistive Device None Gait Belt Orthotic/Prosthetic Devices or Brace: Yes Gait Deviations General Gait Pattern Antalgic Decreased Stride Length Decreased Feet Clearance Factors Limiting Gait Function Factors Limiting Gait Function Limited Range of Motion Pain Poor Balance Poor Safety Awareness Comments Gait Comments pt with L wallking boot on. pt with (+) LOB x 4 requiring CGA. L walking boot contributing to difficulty with standing balance due to LE uneveness and decrease ankle ROM. Pt tends to have RLE crossover LLE especially with turns. educated pt on slowing down and to have a wide MIGEL. pt ambulated >300 ft SBA to CGA without AD. informed pt regarding using SPC for ambulation and stated that he has walking sticks at home. will assess use of SPC next tx session. Stair Climbing Assessment Evaluation Level of Assist On Stairs Standby Assistance Devices Stair Climbing Assistive Devices None Technique/Endurance Stair Climbing Direction Ascend and Descend Stair Climbing Technique Step Over Step Number of Steps Climbed 3 Query Text: Stair Climbing Set # Repetitions (reps) 1 M5 PT-IP Objective Assessments Start: 03/24/18 12:37 Freq: NEEDED Status: Active Protocol: Document 03/24/18 12:30 RCC (Rec: 03/24/18 12:51 RCC [id number]) Orientation Orientation/Cognition Level of Alertness Alert Gross Range of Motion Lower Extremity ROM Assessment Left Impaired Impairments L ankle DF unable to achieve neutral (~5 deg. lacking) due to immobility Strength Lower Extremity Strength Assessment Left Impaired Comments Strength Comments L ankle not tested due to current plantar fascia injury but definite decreased push off on the L foot Coordination Assessment Gross Coordination Gross Coordination WNL Sensation Assessment Sensation Light Touch Impaired Comments Sensation Comments bilateral neuropathy M6 PT-IP Treatment Start: 03/24/18 12:37 Freq: NEEDED Status: Active Protocol: Document 03/30/18 11:15 AB (Rec: 03/30/18 12:00 AB [id number]) Physical Therapy Treatment Education Education Provided Safety M7 PT-IP Assessment and Plan Start: 03/24/18 12:37 Freq: NEEDED Status: Active Protocol: Document 03/30/18 11:15 AB (Rec: 03/30/18 12:00 AB [id number]) PT Summary Assessment and Plan Potential Rehabilitation Potential Good Summary Impairments Strength Balance Activity Tolerance Progress Towards Goals Progressing Toward Goals Assessment Summary pt requiring SBA to CGA with ambulation without AD but continues to have LOB during ambulation. will assess use of SPC next tx session. Goals Bed Mobility Goal Independent Transfer Goal Independent Gait Goal Independent Gait Distance 800 Other Goals without AD Days to Meet Goals 3 Frequency of Treatment Frequency Of Treatment Once a Day Treatment Plan Physical Therapy Treatment Plan Bed Mobility Training Transfer Training Gait Training Therapeutic Exercise Balance Retraining Discharge Planning Hot or Cold Pack Neuromuscular Re-ed Coordination Retraining Manual Therapy Other Recommendations and Next Treatment ambulation using SPC Focus Recommendations To Nursing Amount of Assist Needed 1 Person Assist Discharge Recommendations PT Discharge Recommendations Home with Assistance Outpatient PT Equipment Needed for Home Before SPC: will confirm if pt has Discharge one already
[2018-03-30 15:32] LABS: Vitamin D 25 Hydroxy (D3) 20.9 ng/mL (30.0-100.0)
[2018-03-30] MEDS: ONDANSETRON 4 MG ODT PO (21:06)
[2018-03-31 00:45] VITALS: BP 110/67; PULSE 60; RESP 16; TEMP 36.7; O2SAT 96
[2018-03-31] MEDS: ONDANSETRON 4 MG ODT PO ×3 (02:01→09:45)
[2018-03-31] MEDS: diphenhydrAMINE 50 MG/ML VIAL 25 MG IV (02:04)
--- NOTE | 2018-03-31 02:22 | PC.NURSE ---
patient requested glucose check. 75. Patient desired own med 2 tabs of creon per his home regime. Drinking ensure now.
[2018-03-31 05:38] LABS: Add Manual Diff / Slide Review NO; Basophils Percent Auto 0.9 % (0-2); Eosinophils Percent Auto 4.1 % (2-4); Hematocrit 38.8 % (41-53); Lymphocytes Percent Auto 25.4 % (25-40); Mean Corpuscular HGB Conc 33.6 % (30-36); Mean Corpuscular Hemoglobin 29.7 PG (26-34); Mean Corpuscular Volume 88.6 fL (80-100); Monocytes Percent Auto 7.7 % (3-14); Neutrophils Absolute Auto 3100 /uL (1500-7000); Neutrophils Percent Auto 61.9 % (50-75); Platelet Count 183 X10^3/uL (150-400); Red Blood Cell Count 4.38 X10^6/uL (4.5-5.9); Red Cell Distribution Width 13.9 % (11.6-14.8)
[2018-03-31 05:57] VITALS: BP 106/69; PULSE 60; RESP 16; TEMP 36.3; O2SAT 97
[2018-03-31 06:04] LABS: Alanine Aminotransferase 20 IU/L (21-72); Albumin 3.3 g/dL (3.5-5.0); Albumin Globulin Ratio 1.5 (1.0-2.8); Alkaline Phosphatase 47 U/L (38-126); Aspartate Aminotransferase 15 IU/L (17-59); Bilirubin Total 0.3 mg/dL (0.2-1.3); Blood Urea Nitrogen 7 mg/dL (9-20); Calcium 8.4 mg/dL (8.4-10.2); Carbon Dioxide 23 mmol/L (22-32); Chloride 109 mmol/L (98-107); Estimated Glomerular Filt Rate > 60.0 mL/min (>60); Globulin 2.2 g/dL (1.7-4.1); Glucose 173 mg/dL (80-110); HEMOLYSIS 18 (0-50); Potassium 3.8 mmol/L (3.4-5.1); Sodium 142 mmol/L (137-145); Total Protein 5.5 g/dL (6.3-8.2)
[2018-03-31 06:05] LABS: Magnesium 1.7 mg/dL (1.6-2.3)
[2018-03-31] MEDS: PANTOPRAZOLE 40 MG TABLET PO (06:21)
[2018-03-31] MEDS: METHYLPHENIDATE 5 MG TABLET 20 MG PO (06:21)
--- NOTE | 2018-03-31 07:34 | PC.NURSE ---
Alert and oriented, able to walk unaided to restroom. Took boot and sock off left foot. No pop on skin at all. Educated on foot care since he has peripheral neuropathy and diabetes.
[2018-03-31 08:00] VITALS: BP 119/68; PULSE 62; RESP 16; TEMP 36.5; O2SAT 98
--- NOTE | 2018-03-31 08:06 | PM.DS.1 ---
History of Present Illness Date Patient Seen: 03/24/18 Chief complaint: Nausea, Vomiting ABD Pain Narrative: Written by: Dr. Martinez THIS IS A VERY PLEASANT 63-YEAR-OLD MALE WITH A PAST MEDICAL HISTORY SIGNIFICANT FOR PRIOR ABDOMINAL SURGERY IN THE FORM OF A EXPLORATORY LAP DUE TO PNEUMATOSIS INTESTINALIS PATIENT ALSO HAVE A HISTORY OF CHRONIC PANCREATITIS, HYPERLIPIDEMIA, HYPERTENSION, GERD, HD DEPENDENT DIABETES, PAROXYSMAL ATRIAL FIBRILLATION, PVD, PSORIASIS. PATIENT REPORTED HAVING A ?STOMACH BUG ABOUT 2 WEEKS AGO?. HE DENIES ANY RECENT SICK CONTACT. NO TRAVEL OUTSIDE THE COUNTRY. NO EXOTIC FOOD PRODUCTS. HE PRESENTED TO THE HOSPITAL WITH HER REPORTED SEVERE ABDOMINAL PAIN. THIS STARTED OVERNIGHT. THIS WAS ASSOCIATED WITH NAUSEA AND VOMITING. DIARRHEA WAS ALSO REPORTED. THE PAIN WAS REPORTED BEING SHARP IN NATURE. PAIN WAS REPORTED DIFFUSE. ABDOMEN WAS TENDER TO TOUCH; THE PAIN HAS SIGNIFICANTLY IMPROVED SINCE ADMISSION HE DENIES ANY FEVER. NO CHILLS. NO ADDITIONAL NAUSEA OR VOMITING SYMPTOMS REPORTED AT THIS POINT. DIARRHEA HAS STOPPED. HE HAD NO OTHER COMPLAINTS. NO SHORTNESS OF BREATH. NO CHEST PAIN. NO RECENT WEIGHT LOSS OR WEIGHT GAIN. HE HOWEVER REPORTED DECREASE IN HIS APPETITE. Discharge Providers Date of admission: 03/24/18 03:55 Primary care physician: Jacobo Ochoa MD Consults: 03/24/18 04:42 Consult to General Surgery Routine Comment: Consulting Provider: Columba Wilburn Reason for consultation: Severe Abdominal pain, possible sepsis Has provider been notified: Yes 03/24/18 11:22 Consult to Physical Therapy Evaluate & Treat Comment: Physician Instructions: Evaluate and Treat Discharge provider: Chika Grey DO Discharge Date: 03/31/18 Summary Discharge Diagnosis: 1. Acute on chronic abdominal pain with nausea vomiting and diarrhea, present on admission. Improving. 2. Acute hypomagnesemia, not present on admission. Resolved. 3. Chronic pancreatic insufficiency with secondary diabetes mellitus, present on admission. Stable. 4. Hypertension, present on admission. Stable. 5. Hyperlipidemia and peripheral vascular disease, chronic, present on admission. Stable. 6. GERD, present on admission. Stable. 7. Paroxysmal atrial fibrillation, not present on admission. Stable. Hospital Course: Jann Diehl is a 63-year-old male with a past medical history significant for chronic pancreatic insufficiency on Creon with steatorrhea and secondary diabetes mellitus, 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 1. Acute on chronic abdominal pain with nausea vomiting and diarrhea, present on admission. Improving. -Patient presented with worsening abdominal pain, nausea, vomiting, and diarrhea in the setting of chronic pancreatitis. Patient reports he is usually able to control these episodes with oxycodone and Phenergan suppository but was unable to control this time at home. -Differential diagnosis includes chronic pancreatitis (lipase normal as to be expected but CT inconsistent with chronic pancreatitis findings i.e. no calcifications and enhanced normally) vs. microscopic colitis vs. ischemic colitis vs. less likely infectious colitis. Recommended he follow up with his GI at the [place], Dr. Zee, for overdue colonoscopy (12+ years) to assess for microscopic or ischemic colitis and other pathology and possible ERCP to delineate pancreatic anatomy (i.e. pancreatic divisum). -Continued antiemetics and as needed pain medication. -C diff negative. No evidence of infectious colitis, therefore, antibiotics were discontinued 5 days total. There was mild eosinophilia on CBC, therefore, GI panel for ova and parasite ordered and pending to rule out infectious colitis but more likely a reaction to antibiotics. -CT abdomen and pelvis demonstrated diverticulosis without diverticulitis. No evidence of acute pancreatitis. -Patient tolerating soft and bland diet continue to slowly advance as tolerated. -Surgery was consulted and signed off. 2. Acute hypomagnesemia and hypokalemia, not present on admission. Resolved. -Secondary to diarrhea. -Received magnesium sulfate 2 g IV x2 and potassium 40 mEQ IV x2. -Continued to check magnesium level daily and replete as necessary. Recommend recheck of Mg and K level in 1 week with PCP. 3. Chronic pancreatic insufficiency with secondary diabetes mellitus, present on admission. Stable. -Continued Creon 3 times a day with meals. -Continued Lantus 22 units daily which is decreased from his usual 18 units twice daily. Continue low- dose correctional scale insulin. 4. Hypertension, present on admission. Stable. -Continued lisinopril 20 mg daily and metoprolol tartrate 50 mg b.i.d. 5. Hyperlipidemia and peripheral vascular disease, chronic, present on admission. Stable. -Continued clopidogrel 75 mg daily. 6. GERD, present on admission. Stable. -Continued pantoprazole 40 mg daily. 7. Paroxysmal atrial fibrillation, not present on admission. Stable. -Continued metoprolol tartrate 50 mg twice daily and Pradaxa 150 mg twice daily. Exam Vital Signs (past 8 hours): - 03/31/18 00:45 03/31/18 05:57 03/31/18 08:00 Temperature 98.1 F 97.4 F L 97.7 F Pulse Rate 60 60 62 Respiratory Rate 16 16 16 Blood Pressure 110/67 106/69 119/68 Pulse Oximetry 96 97 98 Oxygen Delivery Method Room Air Oxygen Flow Rate 0 Narrative Exam Narrative: General: Middle-aged gentleman sitting in bedside chair, in no acute distress, well-developed, well-nourished, appropriately interactive. HEENT: Normocephalic, atraumatic. External ears without defect. Pupils equal, round, and reactive to light. Anicteric sclerae, moist conjunctivae, and no lid lag. Neck: Supple with full range of motion. No lymphadenopathy or thyromegaly. Cardiovascular: Regular rate and rhythm without murmurs, rubs, or gallops appreciated. Pulmonary: Clear to auscultation bilaterally without crackles, wheezes, or rhonchi. Normal respiratory effort with no use of accessory muscles. Abdomen: Soft, bowel sounds present, nontender, nondistended. No hepatosplenomegaly or masses appreciated. Extremities: No clubbing, cyanosis, or edema. Brace on left ankle. Skin: Normal temperature, turgor, and texture; no rash, ulcers, or subcutaneous nodules appreciated. Neurological: Cranial nerves grossly intact. Psychiatric: Normal mood and affect. Alert and oriented to person, place, and time. Objective Labs Result Diagrams: 03/31/18 05:04 03/31/18 05:04 Labs: Laboratory Results - last 24 hr 03/28/18 03/31/18 03/31/18 05:40 05:04 05:04 WBC 5.0 RBC 4.38 L Hgb 13.0 L Hct 38.8 L MCV 88.6 MCH 29.7 MCHC 33.6 RDW 13.9 Plt Count 183 Neut % (Auto) 61.9 Lymph % (Auto) 25.4 [place] % (Auto) 7.7 Eos % (Auto) 4.1 H Baso % (Auto) 0.9 Neut # (Auto) 3100 Sodium 142 Potassium 3.8 Chloride 109 H Carbon Dioxide 23 BUN 7 L Creatinine 0.70 Estimated GFR > 60.0 BUN/Creatinine Ratio 10.0 Glucose 173 H Calcium 8.4 Magnesium Total Bilirubin 0.3 AST 15 L ALT 20 L Alkaline Phosphatase 47 Total Protein 5.5 L Albumin 3.3 L Globulin 2.2 Albumin/Globulin Ratio 1.5 25-OH Vitamin D Total 20.9 L 03/31/18 05:04 WBC RBC Hgb Hct MCV MCH MCHC RDW Plt Count Neut % (Auto) Lymph % (Auto) [place] % (Auto) Eos % (Auto) Baso % (Auto) Neut # (Auto) Sodium Potassium Chloride Carbon Dioxide BUN Creatinine Estimated GFR BUN/Creatinine Ratio Glucose Calcium Magnesium 1.7 Total Bilirubin AST ALT Alkaline Phosphatase Total Protein Albumin Globulin Albumin/Globulin Ratio 25-OH Vitamin D Total Discharge Plan Discharge Plan Patient Disposition: Home Discharge comment: You are being discharged home. Please follow up as soon as possible with your GI doctor, Dr. Zee, in the next 1-2 weeks for colonoscopy and possible ERCP and your PCP, Dr. Ochoa, for hospital follow-up in the next 1 week with a BMP and magnesium level. Discharge Med Rec/Prescriptions Prescriptions: New oxycodone 5 mg Tablet 5 mg PO Q4HR PRN (Reason: Pain, Moderate (4-6)) Qty: 20 RF: 0 Continue clopidogrel 75 mg Tablet 75 mg PO Q DAY Qty: 0 RF: 0 diclofenac sodium [Voltaren] 1 % gel 1 crys Topical PRN PRN (Reason: Analgesia) Qty: 0 RF: 0 ondansetron [Zofran ODT] 4 MG tablet,disintegrating 4 mg Sublingual Q6HP PRNQty: 10 RF: 0 methylphenidate HCl 20 mg tablet 20 mg PO TID Qty: 90 RF: 0 lisinopril 20 mg Tablet 20 mg PO DAILY RF: 0 omeprazole 40 mg Capsule,Delayed Release(Dr/Ec) 40 mg PO BID RF: 0 metoprolol tartrate 50 mg Tablet 50 mg PO BID RF: 0 insulin aspart U-100 [Novolog Flexpen U-100 Insulin] 100 unit/mL Insulin Pen 5 unit Sub-Q DIRECTED RF: 0 insulin glargine [Lantus Solostar U-100 Insulin] 100 unit/mL (3 mL) Insulin Pen 18 unit SUB-Q BID RF: 0 [id number]-iynsmci [Creon] 6,000-19,000 -30,000 unit Capsule,Delayed Release(Dr/Ec) 1 cap PO DIRECTED RF: 0 lrzwkl-lwfhftea-wbvohcd [Creon] 36,000-114,000- 180,000 unit Capsule,Delayed Release(Dr/Ec) 1 cap PO DIRECTED RF: 0 promethazine 25 MG tablet 25 mg PO Q6HP PRN (Reason: Nausea) RF: 0 cholecalciferol (vitamin D3) [Vitamin D3] 1,000 unit Capsule 1,000 unit PO BID RF: 0 acetaminophen 325 MG tablet 325 mg PO Q4HP PRN (Reason: Pain, Mild) RF: 0 promethazine [Phenergan] 25 mg suppository 25 mg DC Q6H PRN (Reason: nausea and vomiting) Qty: 10 RF: 0 dabigatran etexilate 150 mg Capsule 150 mg PO BID RF: 0 oxycodone 5 mg Tablet 5 mg PO PRN PRN (Reason: Pain, Severe) Qty: 20 RF: 0 Follow up/Referrals: Jacobo Ochoa MD [Primary Care Provider] - 04/05/18 8:00 am (Hospital follow-up FOLLOW UP WITH YOUR PCP INSTRUCTED. CALL TO CONFIRM YOUR APPOINTMENT) Provider Discharge Instructions Diet: Diet as Tolerated Diet comment: Clear liquids, soft and bland food, avoid roughage. Look into low FODMAP. Activity: Activity as tolerated Skin/Wound/Dressing Care Report to your healthcare provider any signs of infection, such as:: chills, fever and night sweats Visit Report/Discharge Packet Instructions: [place] Diet Visit Report Forms: Stroke Signs & Symptoms Discharge Data Primary Care Provider: Jacobo Ochoa Attending Provider: Deb Martinez Admit Date/Time: 03/24/18 03:55 Discharges patient from system. Discharge Date/Time: 03/31/18 11:15
[2018-03-31] MEDS: CREON 4 EACH PO (08:43)
[2018-03-31] MEDS: DABIGATRAN 75 MG CAPSULE 150 MG PO (09:44)
[2018-03-31] MEDS: CLOPIDOGREL 75 MG TABLET PO (09:45)
[2018-03-31] MEDS: INSULIN GLARGINE 100 UNIT/ML 3ML PEN 18 UNIT SUBCUT (09:45)
[2018-03-31] MEDS: FLUTICASONE 120 SPRAY/16 GM SPRAY.SUSP NASAL (09:45)
[2018-03-31] MEDS: LISINOPRIL 20 MG TABLET PO (09:45)
[2018-03-31] MEDS: METOPROLOL IR 50 MG TABLET PO (09:46)
--- NOTE | 2018-03-31 11:30 | PC.NURSE ---
Discharge Pt states pain is controlled without medication. Taking scheduled zofran to help control nausea. Tolerated breakfast this AM. PIV removed prior to d/c. Pt took all belongings with him. D/c instructions provided to pt. Notified to f/u with PCP and GI dr. also aware to contact MD with any additional questions or concerns. pt left in w/c with RN escort.
--- NOTE | 2018-03-31 11:56 | CM.DPC ---
DCP Cont: Patient will be discharged home today. He will be following up with his GI doctor at the [facility]. Has friend to transport him as well. P: Patient discharged home today. Catalina Pollack RN/Second Steward
--- NOTE | 2018-03-31 13:59 | PT.IPTN ---
Current Diagnoses Type 2 diabetes mellitus without complications (03/24/18) Unspecified atrial fibrillation (03/24/18) Noninfective gastroenteritis and colitis, unspecified (03/24/18) Acute pancreatitis without necrosis or infection, unspecified (03/24/18) Generalized abdominal pain (03/24/18) Unspecified abdominal pain (03/24/18) Nausea with vomiting, unspecified (03/24/18) Diarrhea, unspecified (03/24/18) Physical Therapy Treatment Note M2 PT-IP Current Condition Start: 03/24/18 12:37 Freq: NEEDED Status: Discharge Protocol: Document 03/24/18 12:30 RCC (Rec: 03/24/18 12:51 RCC [id number]) Physical Therapy Current Condition Current Condition Evaluation Date 03/24/18 Treatment Diagnosis abdominal pain, impaired mobility Precautions Other Precautions pt self-reporting he is allowed up without walking boot on LLE up to 4 hrs/day Weight Bearing Status Weight Bearing Status Weight Bear as Tolerated M3 PT-IP Subjective Start: 03/24/18 12:37 Freq: NEEDED Status: Discharge Protocol: Document 03/31/18 09:55 CLB (Rec: 03/31/18 13:59 CLB [id number]) Subjective Physical Therapy Visit Type Type Treatment Note Visit Start Time 09:55 Visit Stop Time 10:18 Total Visit Minutes 23 Number of WEB APPLICATIONS ARCHITECT Visits 1 Physical Therapy Visit Comments Patient Comments pt agreeable to do PT M4 PT-IP Mobility and Gait Start: 03/24/18 12:37 Freq: NEEDED Status: Discharge Protocol: Document 03/31/18 09:55 CLB (Rec: 03/31/18 13:59 CLB [id number]) PT-Transfer Assessment Sit to and From Stand Sit to and from Stand Independent Equipment Transfer Assistive Device None Gait Belt Transfers Transfer Destination Chair Transfer Ability Level of Assist Standby Assistance Comments Mobility Comments Pt able to transfer w/o LOB, SBA Gait Assessment Gait Gait Assistance Required: Standby Assistance Distance (Feet) 300 Able to Maintain Weight Bearing Status Yes During Gait Assistive Devices Assistive Device None Gait Belt Orthotic/Prosthetic Devices or Brace: Yes Gait Deviations General Gait Pattern Antalgic Decreased Stride Length Decreased Feet Clearance Factors Limiting Gait Function Factors Limiting Gait Function Pain Comments Gait Comments Pt ambulated ~300ft SBA w/o LOB. Pt wears walking boot and is able to brandon boot appropriately. Stair Climbing Assessment Evaluation Level of Assist On Stairs Standby Assistance Technique/Endurance Stair Climbing Direction Ascend and Descend Stair Climbing Technique Step Over Step Number of Steps Climbed 3 Query Text: Stair Climbing Set # Repetitions (reps) 3 M5 PT-IP Objective Assessments Start: 03/24/18 12:37 Freq: NEEDED Status: Discharge Protocol: Document 03/24/18 12:30 RCC (Rec: 03/24/18 12:51 RCC [id number]) Orientation Orientation/Cognition Level of Alertness Alert Gross Range of Motion Lower Extremity ROM Assessment Left Impaired Impairments L ankle DF unable to achieve neutral (~5 deg. lacking) due to immobility Strength Lower Extremity Strength Assessment Left Impaired Comments Strength Comments L ankle not tested due to current plantar fascia injury but definite decreased push off on the L foot Coordination Assessment Gross Coordination Gross Coordination WNL Sensation Assessment Sensation Light Touch Impaired Comments Sensation Comments bilateral neuropathy M6 PT-IP Treatment Start: 03/24/18 12:37 Freq: NEEDED Status: Discharge Protocol: Document 03/30/18 11:15 AB (Rec: 03/30/18 12:00 AB [id number]) Physical Therapy Treatment Education Education Provided Safety M7 PT-IP Assessment and Plan Start: 03/24/18 12:37 Freq: NEEDED Status: Discharge Protocol: Document 03/31/18 09:55 CLB (Rec: 03/31/18 13:59 CLB [id number]) PT Summary Assessment and Plan Summary Impairments Strength Balance Activity Tolerance Progress Towards Goals Progressing Toward Goals Assessment Summary Pt able to ambulate SBA ~300ft to stairs, pt climbed stairs x3 SBA. Pt ambulated w/o LOB and able to brandon boot appropriately. Goals Bed Mobility Goal Independent Transfer Goal Independent Gait Goal Independent Gait Distance 800 Other Goals without AD Days to Meet Goals 3 Frequency of Treatment Frequency Of Treatment Once a Day Treatment Plan Physical Therapy Treatment Plan Bed Mobility Training Transfer Training Gait Training Therapeutic Exercise Balance Retraining Discharge Planning Hot or Cold Pack Neuromuscular Re-ed Coordination Retraining Manual Therapy Other Recommendations and Next Treatment ambulation using SPC Focus Recommendations To Nursing Amount of Assist Needed 1 Person Assist Discharge Recommendations PT Discharge Recommendations Home with Assistance Outpatient PT
== END 2018-03-31 11:15 | disposition home or self-care (01) | DRG 439 ==
LOC: ED 03-24 03:28 → ICU 03-24 03:57 → AC 03-24 13:43
PROVIDERS: Internal Medicine; Surgery; Admitting Provider Family Medicine; Emergency Provider Emergency Medicine; Family Provider Emergency Medicine Emergency Medical Services; PCP Emergency Medicine Emergency Medical Services; Visit Provider Hospitalist
DX: K86.1 Other chronic pancreatitis (principal); K55.9 Vascular disorder of intestine, unspecified; E87.2 Acidosis; K52.839 Microscopic colitis, unspecified; R11.0 Nausea; E86.0 Dehydration; K86.89 Other specified diseases of pancreas; E08.9 Diabetes mellitus due to underlying condition without complications; E83.42 Hypomagnesemia; I48.0 Paroxysmal atrial fibrillation; Z79.4 Long term (current) use of insulin; I10 Essential (primary) hypertension; K21.9 Gastro-esophageal reflux disease without esophagitis; E78.5 Hyperlipidemia, unspecified
CPT/HCPCS: 36415; 74018; 74177; 80048; 80053; 81001; 82306; 82962; 83036; 83605; 83690; 83735; 84100; 84145; 85025; 87015; 87040; 87045; 87177; 87427; 87493; 87797; 87899; 93005; 94762; 96361; 96365; 96375; 97110; 97116; 97161; 97530; 99231; 99232; 99285; J0295; J0780; J1170; J1200; J2060; J2543; J2930; J3480; Q9967

== ENCOUNTER 2018-07-08 20:54 | Emergency (ER) | payer OTHER, SELFPAY ==
[2018-03-24 13:51] VITALS: BMI 26.7
[2018-07-08 20:55] VITALS: BP 106/59; PULSE 65; RESP 20; TEMP 36.5; O2SAT 98; BMI 23.9
[2018-07-08 22:17] VITALS: BP 94/54; PULSE 64; RESP 15; O2SAT 99
--- NOTE | 2018-07-08 22:41 | ED_ITS ---
HPI - Syncope General Chief Complaint: Syncope Stated Complaint: BLOOD PRESSURE DIZZY LOSS OF VISION Time Seen by Provider: 07/08/18 22:40 Source: patient Mode of arrival: ambulatory Limitations: no limitations History of Present Illness HPI narrative: The patient is here with weakness, and feeling near syncope. He has no acute fever, chills or sweats. He denies nausea vomiting. he developed diarrhea 2 days ago, which improved yesterday. He has diabetes, and hypertension. 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 He takes pancreas enzymes. He develops diarrhea 2 days ago, possibly after missing the dose. There is no blood in the diarrhea. Although the diarrhea has passed, he is still feeling weak and fatigued. He is hypotensive upon arrival. He has no associated chest pain. He has no cardiac history. He is not currently having abdominal pain. He has no urinary symptoms. Related Data Home Medications Medication Instructions Recorded Confirmed clopidogrel 75 mg PO Q DAY #0 04/15/08 03/24/18 diclofenac sodium [Voltaren] 1 crys TOPICAL PRN PRN #0 03/14/17 03/24/18 insulin aspart U-100 [Novolog 5 unit SUB-Q DIRECTED 08/17/17 03/24/18 Flexpen U-100 Insulin] insulin glargine [Lantus Solostar 18 unit SUB-Q BID 08/17/17 03/24/18 U-100 Insulin] [id number] [Creon] 1 cap PO DIRECTED 08/17/17 03/24/18 [id number] [Creon] 1 cap PO DIRECTED 08/17/17 03/24/18 lisinopril 20 mg PO DAILY 08/17/17 03/24/18 metoprolol tartrate 50 mg PO BID 08/17/17 03/24/18 omeprazole 40 mg PO BID 08/17/17 03/24/18 promethazine 25 mg PO Q6HP PRN 08/17/17 03/24/18 acetaminophen 325 mg PO Q4HP PRN 09/25/17 03/24/18 cholecalciferol (vitamin D3) 1,000 unit PO BID 09/25/17 03/24/18 [Vitamin D3] dabigatran etexilate 150 mg PO BID 03/24/18 03/24/18 Previous Rx's Medication Instructions Recorded ondansetron [Zofran ODT] 4 mg SUBLINGUAL Q6HP PRN #10 odt 03/19/17 promethazine [Phenergan] 25 mg VA Q6H PRN #10 each 09/25/17 oxycodone 5 mg PO PRN PRN #20 tab 03/31/18 oxycodone 5 mg PO Q4HR PRN #20 tab 03/31/18 methylphenidate 20 mg tablet 20 mg PO TID #90 tab 06/10/18 Allergies Allergy/AdvReac Type Severity Reaction Status Date / Time Iodine and Iodide Containing Allergy Severe Anaphylaxis Verified 03/24/18 04:45 Produc [IODINE AND IODIDE CONTAINING PRODUC] Sulfa (Sulfonamide Allergy Severe Anaphylaxis Verified 03/24/18 04:46 Antibiotics) [SULFA (SULFONAMIDE ANTIBIOTICS)] Review of Systems Review of Systems ROS Unobtainable: All systems reviewed & are unremarkable except as noted in HPI and below Constitutional Denies chills, Reports fatigue, Denies fever(s), Reports lethargy and Reports weakness Eyes Denies change in vision ENT Comments: No complaints Cardiovascular Denies chest pain, Denies irregular heart rhythm, Denies lightheadedness, Denies palpitations, Denies dyspnea and Denies orthopnea Respiratory Denies cough, Denies dyspnea and Denies wheezing Gastrointestinal Gastrointestinal: Reports diarrhea, Reports nausea and Denies vomiting Musculoskeletal Denies muscle weakness, Denies numbness and Denies tingling Integumentary/Breasts Denies rash Neurologic Denies numbness, Denies tingling and Reports weakness Endocrine Reports fatigue and Denies palpitations Allergic/Immunologic Denies wheezing [facility] Surgical History H/O exploratory laparotomy (Acute) Social History household members: none Smoking Status: Former smoker Social History household members: none Smoking Status: Former smoker Exam Initial Vital Signs Initial Vital Signs: Vital Signs Temperature 97.7 F 07/08/18 20:55 Pulse Rate 65 07/08/18 20:55 Respiratory Rate 20 07/08/18 20:55 Blood Pressure 106/59 L 07/08/18 20:55 Pulse Oximetry 98 04/15/19 20:55 Const General: cooperative and well developed Nutritional Appearance: well nourished Orientation: alert, awake, oriented x3 and not confused [facility] Head: normocephalic and atraumatic Mouth: oral mucosae normal Throat: posterior oropharynx normal Chest Chest: normal inspection of the chest Resp Effort & Inspection: normal respiratory effort, able to speak in complete sentences, no respiratory distress and no use of accessory muscles Auscultation: clear to auscultation bilaterally, no rales, no rhonchi and no wheezes Cardio Rate: regular rate Rhythm: regular rhythm Heart Sounds: no click, no gallops, no murmurs and no rubs Pulses: normal peripheral pulses GI Inspection: non-distended Palpation: soft, no hepatosplenomegaly, No guarding, No pulsatile mass and No tender Auscultation: normal bowel sounds Skin General: no rashes or lesions noted, No jaundice and No petechiae Neuro General: alert, oriented x3, gait normal and no focal motor deficits Speech: speech normal Extrem General: full ROM, no clubbing, cyanosis or edema, no pedal edema and no calf tenderness Course Course Narrative: The patient's blood pressure has been labile/low, often less than 100 systolic. He was rehydrated with 2.5 L of normal saline. At the initial bolus, he was hydrated for several hours at a slower rate. Blood pressure improved. Symptoms improved. Lab evaluation was benign. Orders Ordered: Discontinued Medications Sodium Chloride (Normal Saline 0.9%) 1,000 mls @ 1,000 mls/hr IV BOLUS ONE Stop: 07/08/18 23:44 Last Infusion: 07/09/18 00:08 Dose: 0 mls/hr Admin: 07/08/18 23:05 Dose: 1,000 mls/hr Ondansetron HCl 8 mg/ Sodium (Chloride) 54 mls @ 216 mls/hr IV NOW ONE Stop: 07/08/18 22:52 Last Infusion: 07/08/18 23:06 Dose: 0 mls/hr Admin: 07/08/18 23:03 Dose: 216 mls/hr Sodium Chloride (Normal Saline 0.9%) 500 mls @ 1,000 mls/hr IV BOLUS ONE Stop: 07/09/18 01:37 Last Infusion: 07/09/18 02:07 Dose: 0 mls/hr Admin: 07/09/18 01:21 Dose: 1,000 mls/hr Sodium Chloride (Normal Saline 0.9%) 1,000 mls @ 1,000 mls/hr IV BOLUS ONE Stop: 07/09/18 02:53 Last Infusion: 07/09/18 06:32 Dose: 0 mls/hr Admin: 07/09/18 01:59 Dose: 1,000 mls/hr Lorazepam (Ativan) 1 mg IV NOW ONE Stop: 07/09/18 01:09 Last Admin: 07/09/18 01:21 Dose: 1 mg Prochlorperazine (Compazine) 10 mg IV NOW ONE Stop: 07/08/18 23:33 Last Admin: 07/08/18 23:33 Dose: 10 mg Vital Signs - 8 hr 07/08/18 20:55 07/08/18 22:17 07/08/18 23:03 Temperature 97.7 F Pulse Rate 65 64 60 Pulse Rate [Orthostatic Lying] Pulse Rate [Orthostatic Sitting] Pulse Rate [Orthostatic Standing] Respiratory Rate 20 15 12 Blood Pressure 106/59 L Blood Pressure [Orthostatic Lying] Blood Pressure [Orthostatic Sitting] Blood Pressure [Orthostatic Standing] Blood Pressure [Right Arm] 94/54 L 88/51 L Pulse Oximetry 98 99 07/08/18 23:33 07/09/18 00:56 07/09/18 01:07 Temperature Pulse Rate 63 58 L Pulse Rate [Orthostatic Lying] 66 Pulse Rate [Orthostatic Sitting] 60 Pulse Rate [Orthostatic Standing] 64 Respiratory Rate 16 Blood Pressure 92/60 Blood Pressure [Orthostatic Lying] 83/51 L Blood Pressure [Orthostatic Sitting] 90/55 L Blood Pressure [Orthostatic Standing] 91/55 L Blood Pressure [Right Arm] 92/45 L Pulse Oximetry 07/09/18 01:34 07/09/18 02:38 07/09/18 03:01 Temperature Pulse Rate 59 L 59 L 62 Pulse Rate [Orthostatic Lying] Pulse Rate [Orthostatic Sitting] Pulse Rate [Orthostatic Standing] Respiratory Rate 15 17 15 Blood Pressure Blood Pressure [Orthostatic Lying] Blood Pressure [Orthostatic Sitting] Blood Pressure [Orthostatic Standing] Blood Pressure [Right Arm] 85/50 L 111/57 L 117/70 Pulse Oximetry MDM - Syncope Lab Data Result diagrams: 07/08/18 22:15 07/08/18 22:15 Lab Results 07/08/18 07/08/18 07/09/18 Range/Units 22:15 22:15 02:04 WBC 6.2 (4.5-11.0) X10^3/uL RBC 4.80 (4.5-5.9) X10^6/uL Hgb 14.2 (13.5-17.5) g/dL Hct 41.8 (41-53) % MCV 87.0 (80-100) fL MCH 29.5 (26-34) PG MCHC 34.0 (30-36) % RDW 13.9 (11.6-14.8) % Plt Count 216 (150-400) X10^3/uL Neut % (Auto) 57.4 (50-75) % Lymph % (Auto) 29.1 (25-40) % [place] % (Auto) 10.0 (3-14) % Eos % (Auto) 3.2 (2-4) % Baso % (Auto) 0.3 (0-2) % Neut # (Auto) 3600 (1584-9871) /uL Lymph # (Auto) 1800 (7733-7311) /uL [place] # (Auto) 600 (0-900) /uL Eos # (Auto) 200 (0-450) /uL Baso # (Auto) 0 (0-100) /uL Sodium 139 (137-145) mmol/L Potassium 5.0 (3.4-5.1) mmol/L Chloride 103 (98-107) mmol/L Carbon Dioxide 25 (22-32) mmol/L BUN 14 (9-20) mg/dL Creatinine 0.90 (0.66-1.25) mg/dL Estimated GFR > 60.0 (>60) mL/min BUN/Creatinine Ratio 15.6 (6-22) Glucose 96 (80-110) mg/dL Lactate (0.7-2.1) mmol/L Calcium 9.6 (8.4-10.2) mg/dL Total Bilirubin 0.5 (0.2-1.3) mg/dL AST 57 (17-59) IU/L ALT 39 (21-72) IU/L Alkaline Phosphatase 78 (38-126) U/L Total Creatine Kinase 97 (55-170) U/L CK-MB (CK-2) TNP CK-MB (CK-2) Rel Index TNP Troponin I < 0.012 (0.01-0.034) ng/mL Total Protein 7.2 (6.3-8.2) g/dL Albumin 4.6 (3.5-5.0) g/dL Globulin 2.6 (1.7-4.1) g/dL Albumin/Globulin Ratio 1.8 (1.0-2.8) Lipase 68 (23-300) U/L 07/09/18 Range/Units 02:04 WBC (4.5-11.0) X10^3/uL RBC (4.5-5.9) X10^6/uL Hgb (13.5-17.5) g/dL Hct (41-53) % MCV (80-100) fL MCH (26-34) PG MCHC (30-36) % RDW (11.6-14.8) % Plt Count (150-400) X10^3/uL Neut % (Auto) (50-75) % Lymph % (Auto) (25-40) % [place] % (Auto) (3-14) % Eos % (Auto) (2-4) % Baso % (Auto) (0-2) % Neut # (Auto) (7162-7363) /uL Lymph # (Auto) (0889-8840) /uL [place] # (Auto) (0-900) /uL Eos # (Auto) (0-450) /uL Baso # (Auto) (0-100) /uL Sodium (137-145) mmol/L Potassium (3.4-5.1) mmol/L Chloride (98-107) mmol/L Carbon Dioxide (22-32) mmol/L BUN (9-20) mg/dL Creatinine (0.66-1.25) mg/dL Estimated GFR (>60) mL/min BUN/Creatinine Ratio (6-22) Glucose (80-110) mg/dL Lactate 0.7 (0.7-2.1) mmol/L Calcium (8.4-10.2) mg/dL Total Bilirubin (0.2-1.3) mg/dL AST (17-59) IU/L ALT (21-72) IU/L Alkaline Phosphatase (38-126) U/L Total Creatine Kinase (55-170) U/L CK-MB (CK-2) CK-MB (CK-2) Rel Index Troponin I (0.01-0.034) ng/mL Total Protein (6.3-8.2) g/dL Albumin (3.5-5.0) g/dL Globulin (1.7-4.1) g/dL Albumin/Globulin Ratio (1.0-2.8) Lipase (23-300) U/L Urine Dip Bedside Urine Glucose Negative Bedside Urine Bilirubin - Negative Bedside Urine Ketone - Negative Urine Specific [place] 1.010 Bedside Urine pH 7.5 Bedside Urine Protein - Negative Bedside Urine Urobilinogen - Negative Bedside Urine Nitrite - Negative Bedside Urine Leukocytes - Negative Esterase ECG Data Attestation: I personally reviewed and interpreted this ECG as follows: (Normal sinus rhythm rate 73 beats per minute. normal intervals. No acute ST T wave changes. No ectopy.) Discharge Plan Departure Patient Disposition: Home Clinical Impression: Orthostatic hypotension, Acute dehydration Discharge Date/Time: 07/09/18 06:39 Interventions: ED Discharge Assessment Last Done: 07/09/18 06:37 Activity Restrictions/Additional Instructions: Rest at home, drink plenty of fluids. Take your regularly prescribed medications. Return here as needed. Prescriptions: No Action clopidogrel 75 mg Tablet 75 mg PO Q DAY Qty: 0 RF: 0 diclofenac sodium [Voltaren] 1 % gel 1 crys Topical PRN PRN (Reason: Analgesia) Qty: 0 RF: 0 ondansetron [Zofran ODT] 4 MG tablet,disintegrating 4 mg Sublingual Q6HP PRNQty: 10 RF: 0 methylphenidate HCl 20 mg tablet 20 mg PO TID Qty: 90 RF: 0 lisinopril 20 mg Tablet 20 mg PO DAILY RF: 0 omeprazole 40 mg Capsule,Delayed Release(Dr/Ec) 40 mg PO BID RF: 0 metoprolol tartrate 50 mg Tablet 50 mg PO BID RF: 0 insulin aspart U-100 [Novolog Flexpen U-100 Insulin] 100 unit/mL Insulin Pen 5 unit Sub-Q DIRECTED RF: 0 insulin glargine [Lantus Solostar U-100 Insulin] 100 unit/mL (3 mL) Insulin Pen 18 unit SUB-Q BID RF: 0 [id number]-tisnsqy [Creon] 6,000-19,000 -30,000 unit Capsule,Delayed Release(Dr/Ec) 1 cap PO DIRECTED RF: 0 [id number] [Creon] 36,000-114,000- 180,000 unit Capsule,Delayed Release(Dr/Ec) 1 cap PO DIRECTED RF: 0 promethazine 25 MG tablet 25 mg PO Q6HP PRN (Reason: Nausea) RF: 0 cholecalciferol (vitamin D3) [Vitamin D3] 1,000 unit Capsule 1,000 unit PO BID RF: 0 acetaminophen 325 MG tablet 325 mg PO Q4HP PRN (Reason: Pain, Mild) RF: 0 promethazine [Phenergan] 25 mg suppository 25 mg VA Q6H PRN (Reason: nausea and vomiting) Qty: 10 RF: 0 dabigatran etexilate 150 mg Capsule 150 mg PO BID RF: 0 oxycodone 5 mg Tablet 5 mg PO Q4HR PRN (Reason: Pain, Moderate (4-6)) Qty: 20 RF: 0 oxycodone 5 mg Tablet 5 mg PO PRN PRN (Reason: Pain, Severe) Qty: 20 RF: 0 Referrals: Jacobo Ochoa MD [Primary Care Provider] -
[2018-07-08 22:55] LABS: Add Manual Diff / Slide Review NO; Basophils Absolute Auto 0 /uL (0-100); Basophils Percent Auto 0.3 % (0-2); Eosinophils Absolute Auto 200 /uL (0-450); Eosinophils Percent Auto 3.2 % (2-4); Hematocrit 41.8 % (41-53); Hemoglobin 14.2 g/dL (13.5-17.5); Lymphocytes Absolute Auto 1800 /uL (1100-4500); Lymphocytes Percent Auto 29.1 % (25-40); Mean Corpuscular Hemoglobin 29.5 PG (26-34); Monocytes Absolute Auto 600 /uL (0-900); Neutrophils Absolute Auto 3600 /uL (1500-7000); Neutrophils Percent Auto 57.4 % (50-75); Platelet Count 216 X10^3/uL (150-400); Red Cell Distribution Width 13.9 % (11.6-14.8); White Blood Cell Count 6.2 X10^3/uL (4.5-11.0)
[2018-07-08 23:03] VITALS: BP 88/51; PULSE 60; RESP 12
[2018-07-08] MEDS: ONDANSETRON 8 MG in SODIUM CHLORIDE 0.9% 50 ML 216 ML IV (23:03)
[2018-07-08] MEDS: SODIUM CHLORIDE 0.9% 1,000 ML 1000 ML IV (23:05)
[2018-07-08 23:09] LABS: Alanine Aminotransferase 39 IU/L (21-72); Albumin 4.6 g/dL (3.5-5.0); Albumin Globulin Ratio 1.8 (1.0-2.8); Alkaline Phosphatase 78 U/L (38-126); Aspartate Aminotransferase 57 IU/L (17-59); BUN Creatinine Ratio 15.6 (6-22); Bilirubin Total 0.5 mg/dL (0.2-1.3); Blood Urea Nitrogen 14 mg/dL (9-20); Calcium 9.6 mg/dL (8.4-10.2); Carbon Dioxide 25 mmol/L (22-32); Chloride 103 mmol/L (98-107); Estimated Glomerular Filt Rate > 60.0 mL/min (>60); Globulin 2.6 g/dL (1.7-4.1); Glucose 96 mg/dL (80-110); HEMOLYSIS 21 (0-50); Lipase 68 U/L (23-300); Sodium 139 mmol/L (137-145); Total Protein 7.2 g/dL (6.3-8.2)
[2018-07-08 23:33] VITALS: BP 92/60; PULSE 63
[2018-07-08] MEDS: PROCHLORPERAZINE 10 MG/2 ML VIAL IV (23:33)
[2018-07-09] VITALS (9 sets, daily range): BP systolic 83–117; BP diastolic 45–70; PULSE 58–73; RESP 9–17; TEMP 36.8; O2SAT 96
--- NOTE | 2018-07-09 01:07 | PC.NURSE ---
Pt states his nausea is better after compazine, but he still feels crummy. Pt states he wants to go home. Dr Conn notified.
[2018-07-09] MEDS: LORazepam 2 MG/ML SYRINGE 1 MG IV (01:21)
[2018-07-09] MEDS: SODIUM CHLORIDE 0.9% 500 ML 1000 ML IV (01:21)
[2018-07-09] MEDS: SODIUM CHLORIDE 0.9% 1,000 ML 1000 ML IV (01:59)
[2018-07-09 02:20] LABS: Creatine Kinase 97 U/L (55-170); Lactate (Lactic Acid) 0.7 mmol/L (0.7-2.1)
[2018-07-09 02:33] LABS: Troponin I < 0.012 ng/mL (0.01-0.034)
== END 2018-07-09 06:39 | disposition home or self-care (01) ==
PROVIDERS: Emergency Provider Emergency Medicine; Family Provider Emergency Medicine Emergency Medical Services; PCP Emergency Medicine Emergency Medical Services
DX: I95.1 Orthostatic hypotension (principal); E86.0 Dehydration; E11.9 Type 2 diabetes mellitus without complications
CPT/HCPCS: 36415; 36591; 80053; 81003; 82550; 83605; 83690; 84484; 85025; 93005; 93010; 96361; 96374; 96375; 99284; 99285; J0780; J2060; J2405

== ENCOUNTER 2018-08-05 17:08 | Emergency (ER) | payer OTHER, SELFPAY ==
[2018-03-24 13:51] VITALS: BMI 26.7
[2018-08-05 17:16] VITALS: BP 130/51; PULSE 70; RESP 18; TEMP 36.7; O2SAT 97; BMI 23.8
--- NOTE | 2018-08-05 17:19 | ED.NAVMDI ---
HPI - Nausea/Vomiting/Diarrhea <Digna Warren PA-C - Last Filed: 08/05/18 22:07> General Chief complaint: Nausea/Vomiting/Diarrhea Stated complaint: dehydrated/nausea/bs/b/p low x2 days Time Seen by Provider: 08/05/18 17:19 Source: patient Mode of arrival: ambulatory Limitations: no limitations History of Present Illness HPI Narrative: This 63-year-old male who has a history of chronic pancreatitis and recurrent vomiting and diarrhea related to food sensitivities an enzyme deficiency returns to ED with recurrent vomiting and diarrhea. He states that this started yesterday, after he had gone to a buffet and states there was pierce in a salad he ate and he thinks pierce fat in the dressing. This triggered it episodes of vomiting bilious material yesterday and diarrhea with steatorrhea. He states that he tried antiemetics yesterday which were not working, but today has had 2 promethazine suppositories as well as Zofran and has not had recurrent vomiting. He states his last episode of diarrhea was about 3 hours ago and he feels like the episode has calmed down, but he can't catch up on fluids. He states he is feeling dehydrated, weak and tired including mentally. States his blood sugar is low and he has had 3 8 oz electrolyte drinks which he has kept down today but thinks he needs fluids. He states that he has some crampy abdominal pain but nothing like his previous pancreatitis. He denies fever. He denies chest pain or dyspnea or other new complaints on systems review Related Data Home Medications Medication Instructions Recorded Confirmed clopidogrel 75 mg PO Q DAY #0 04/15/08 03/24/18 diclofenac sodium [Voltaren] 1 crys TOPICAL PRN PRN #0 03/14/17 03/24/18 insulin aspart U-100 [Novolog 5 unit SUB-Q DIRECTED 08/17/17 03/24/18 Flexpen U-100 Insulin] insulin glargine [Lantus Solostar 18 unit SUB-Q BID 08/17/17 03/24/18 U-100 Insulin] [id number]-bgpprtn [Creon] 1 cap PO DIRECTED 08/17/17 03/24/18 [id number] [Creon] 1 cap PO DIRECTED 08/17/17 03/24/18 lisinopril 20 mg PO DAILY 08/17/17 03/24/18 metoprolol tartrate 50 mg PO BID 08/17/17 03/24/18 omeprazole 40 mg PO BID 08/17/17 03/24/18 promethazine 25 mg PO Q6HP PRN 08/17/17 03/24/18 acetaminophen 325 mg PO Q4HP PRN 09/25/17 03/24/18 cholecalciferol (vitamin D3) 1,000 unit PO BID 09/25/17 03/24/18 [Vitamin D3] dabigatran etexilate 150 mg PO BID 03/24/18 03/24/18 Previous Rx's Medication Instructions Recorded ondansetron [Zofran ODT] 4 mg SUBLINGUAL Q6HP PRN #10 odt 03/19/17 promethazine [Phenergan] 25 mg VT Q6H PRN #10 each 09/25/17 oxycodone 5 mg PO PRN PRN #20 tab 03/31/18 oxycodone 5 mg PO Q4HR PRN #20 tab 03/31/18 methylphenidate 20 mg tablet 20 mg PO TID #90 tab 07/15/18 Allergies Allergy/AdvReac Type Severity Reaction Status Date / Time Iodine and Iodide Containing Allergy Severe Anaphylaxis Verified 08/05/18 17:16 Produc [IODINE AND IODIDE CONTAINING PRODUC] Sulfa (Sulfonamide Allergy Severe Anaphylaxis Verified 08/05/18 17:16 Antibiotics) [SULFA (SULFONAMIDE ANTIBIOTICS)] Review of Systems <Digna Warren PA-C - Last Filed: 08/05/18 22:07> Review of Systems ROS Unobtainable: All systems reviewed & are unremarkable except as noted in HPI and below PFSH <Digna Warren PA-C - Last Filed: 08/05/18 22:07> Medical History GERD (gastroesophageal reflux disease) (Chronic) HTN (hypertension) (Chronic) Hyperlipidemia (Chronic) 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 Somewhat diaphoretic initially HEENT: PERRL, EOMI, no scleral icterus NECK: Supple LUNGS: Clear to auscultation bilaterally. HEART: Rate and rhythm regular, normal S1 and S2, no S3 or S4. ABDOMEN: Soft, mild generalized tenderness without guarding or rebound, nondistended, bowel sounds present x 4 quadrants, no masses palpable EXTREMITIES: No edema, no cyanosis DERMATOLOGIC: No jaundice or exanthem NEUROLOGIC: Alert and oriented with normal speech and coordination Initial Vital Signs Initial Vital Signs: Vital Signs Temperature 98.1 F 08/05/18 17:16 Pulse Rate 70 08/05/18 17:16 Respiratory Rate 18 08/05/18 17:16 Blood Pressure 130/51 L 08/05/18 17:16 Pulse Oximetry 97 08/05/18 17:16 Postural vitals after 2 L of fluid: Supine 99/55, pulse 66, sitting 105/56, pulse 79, standing 106/59, pulse 73 <Drake Conn MD - Last Filed: 08/06/18 05:03> Initial Vital Signs Initial Vital Signs: Vital Signs Temperature 98.1 F 08/05/18 17:16 Pulse Rate 70 08/05/18 17:16 Respiratory Rate 18 08/05/18 17:16 Blood Pressure 130/51 L 08/05/18 17:16 Pulse Oximetry 97 08/05/18 17:16 Course <Digna Warren PA-C - Last Filed: 08/05/18 22:07> Additional Information: Patient initially reported feeling better after 2 L of fluid and thought he could rest. He has had some persistent nausea but does not feel like he will vomit. He states he felt somewhat worse and weak again when he stood up. Blood pressure readings were somewhat low but no significant postural changes. Reviewed with Dr. Conn who remembered him needing 3 or 4 L of fluids previously. He was given an additional L with some Zofran, resting comfortably and sleeping prior to discharge without recurrent vomiting or diarrhea Orders Ordered: Discontinued Medications Dextrose (D50w) 25 gm IV NOW ONE Stop: 08/05/18 17:32 Last Admin: 08/05/18 17:34 Dose: 25 gm Sodium Chloride (Normal Saline 0.9%) 1,000 mls @ 1,000 mls/hr IV BOLUS ONE Stop: 08/05/18 18:30 Last Infusion: 08/05/18 20:06 Dose: 0 mls/hr Infusion: 08/05/18 19:19 Dose: 1,000 mls/hr Infusion: 08/05/18 19:01 Dose: 500 mls/hr Infusion: 08/05/18 18:14 Dose: 250 mls/hr Admin: 08/05/18 18:13 Dose: 1,000 mls/hr Sodium Chloride (Normal Saline 0.9%) 1,000 mls @ 1,000 mls/hr IV BOLUS ONE Stop: 08/05/18 19:43 Last Infusion: 08/05/18 21:08 Dose: 0 mls/hr Admin: 08/05/18 20:14 Dose: 1,000 mls/hr Sodium Chloride (Normal Saline 0.9%) 1,000 mls @ 1,000 mls/hr IV BOLUS ONE Stop: 08/05/18 22:30 Last Admin: 08/05/18 21:35 Dose: Not Given Sodium Chloride (Normal Saline 0.9%) 1,000 mls @ 1,000 mls/hr IV BOLUS ONE Stop: 08/05/18 22:31 Last Infusion: 08/05/18 23:08 Dose: 0 mls/hr Admin: 08/05/18 21:34 Dose: 1,000 mls/hr Lorazepam (Ativan) 1 mg IV NOW ONE Stop: 08/05/18 17:50 Last Admin: 08/05/18 18:13 Dose: 1 mg Ondansetron HCl (Zofran) 4 mg IV NOW ONE Stop: 08/05/18 21:32 Last Admin: 08/05/18 21:34 Dose: 4 mg Vital Signs - 8 hr 08/05/18 21:15 08/05/18 22:00 08/05/18 23:09 Pulse Rate 71 62 Pulse Rate [Orthostatic Lying] 66 Pulse Rate [Orthostatic Sitting] 79 Pulse Rate [Orthostatic Standing] 73 Respiratory Rate 15 14 Blood Pressure 99/52 L Blood Pressure [Left Arm] 112/54 L Blood Pressure [Orthostatic Lying] 99/55 L Blood Pressure [Orthostatic Sitting] 105/56 L Blood Pressure [Orthostatic Standing] 106/59 L Pulse Oximetry 96 100 <Drake Conn MD - Last Filed: 08/06/18 05:03> Orders Ordered: Discontinued Medications Dextrose (D50w) 25 gm IV NOW ONE Stop: 08/05/18 17:32 Last Admin: 08/05/18 17:34 Dose: 25 gm Sodium Chloride (Normal Saline 0.9%) 1,000 mls @ 1,000 mls/hr IV BOLUS ONE Stop: 08/05/18 18:30 Last Infusion: 08/05/18 20:06 Dose: 0 mls/hr Infusion: 08/05/18 19:19 Dose: 1,000 mls/hr Infusion: 08/05/18 19:01 Dose: 500 mls/hr Infusion: 08/05/18 18:14 Dose: 250 mls/hr Admin: 08/05/18 18:13 Dose: 1,000 mls/hr Sodium Chloride (Normal Saline 0.9%) 1,000 mls @ 1,000 mls/hr IV BOLUS ONE Stop: 08/05/18 19:43 Last Infusion: 08/05/18 21:08 Dose: 0 mls/hr Admin: 08/05/18 20:14 Dose: 1,000 mls/hr Sodium Chloride (Normal Saline 0.9%) 1,000 mls @ 1,000 mls/hr IV BOLUS ONE Stop: 08/05/18 22:30 Last Admin: 08/05/18 21:35 Dose: Not Given Sodium Chloride (Normal Saline 0.9%) 1,000 mls @ 1,000 mls/hr IV BOLUS ONE Stop: 08/05/18 22:31 Last Infusion: 08/05/18 23:08 Dose: 0 mls/hr Admin: 08/05/18 21:34 Dose: 1,000 mls/hr Lorazepam (Ativan) 1 mg IV NOW ONE Stop: 08/05/18 17:50 Last Admin: 08/05/18 18:13 Dose: 1 mg Ondansetron HCl (Zofran) 4 mg IV NOW ONE Stop: 08/05/18 21:32 Last Admin: 08/05/18 21:34 Dose: 4 mg Vital Signs - 8 hr 08/05/18 21:15 08/05/18 22:00 08/05/18 23:09 Pulse Rate 71 62 Pulse Rate [Orthostatic Lying] 66 Pulse Rate [Orthostatic Sitting] 79 Pulse Rate [Orthostatic Standing] 73 Respiratory Rate 15 14 Blood Pressure 99/52 L Blood Pressure [Left Arm] 112/54 L Blood Pressure [Orthostatic Lying] 99/55 L Blood Pressure [Orthostatic Sitting] 105/56 L Blood Pressure [Orthostatic Standing] 106/59 L Pulse Oximetry 96 100 MDM - Nausea/Vomiting/Diarrhea <Digna Warren PA-C - Last Filed: 08/05/18 22:07> Lab Data Attestation: I reviewed the patient's lab results. Result diagrams: 08/05/18 17:30 08/05/18 17:30 Lab Results 08/05/18 08/05/18 Range/Units 17:30 17:30 WBC 9.1 (4.5-11.0) X10^3/uL RBC 4.92 (4.5-5.9) X10^6/uL Hgb 14.7 (13.5-17.5) g/dL Hct 43.8 (41-53) % MCV 89.0 (80-100) fL MCH 29.9 (26-34) PG MCHC 33.6 (30-36) % RDW 14.3 (11.6-14.8) % Plt Count 243 (150-400) X10^3/uL Neut % (Auto) 60.8 (50-75) % Lymph % (Auto) 27.5 (25-40) % [place] % (Auto) 9.2 (3-14) % Eos % (Auto) 1.5 L (2-4) % Baso % (Auto) 1.0 (0-2) % Neut # (Auto) 5600 (9735-4378) /uL Lymph # (Auto) 2500 (2043-2848) /uL [place] # (Auto) 800 (0-900) /uL Eos # (Auto) 100 (0-450) /uL Baso # (Auto) 100 (0-100) /uL Sodium 137 (137-145) mmol/L Potassium 4.1 (3.4-5.1) mmol/L Chloride 99 (98-107) mmol/L Carbon Dioxide 25 (22-32) mmol/L BUN 15 (9-20) mg/dL Creatinine 0.90 (0.66-1.25) mg/dL Estimated GFR > 60.0 (>60) mL/min BUN/Creatinine Ratio 16.7 (6-22) Glucose 40 L* (80-110) mg/dL Calcium 9.4 (8.4-10.2) mg/dL Total Bilirubin 0.9 (0.2-1.3) mg/dL AST 33 (17-59) IU/L ALT 26 (21-72) IU/L Alkaline Phosphatase 64 (38-126) U/L Total Protein 7.7 (6.3-8.2) g/dL Albumin 4.8 (3.5-5.0) g/dL Globulin 2.9 (1.7-4.1) g/dL Albumin/Globulin Ratio 1.7 (1.0-2.8) Lipase 32 (23-300) U/L Point of Care Testing Glucose POC 126 <Drake Conn MD - Last Filed: 08/06/18 05:03> Lab Data Lab Results 08/05/18 08/05/18 Range/Units 17:30 17:30 WBC 9.1 (4.5-11.0) X10^3/uL RBC 4.92 (4.5-5.9) X10^6/uL Hgb 14.7 (13.5-17.5) g/dL Hct 43.8 (41-53) % MCV 89.0 (80-100) fL MCH 29.9 (26-34) PG MCHC 33.6 (30-36) % RDW 14.3 (11.6-14.8) % Plt Count 243 (150-400) X10^3/uL Neut % (Auto) 60.8 (50-75) % Lymph % (Auto) 27.5 (25-40) % [place] % (Auto) 9.2 (3-14) % Eos % (Auto) 1.5 L (2-4) % Baso % (Auto) 1.0 (0-2) % Neut # (Auto) 5600 (9982-6380) /uL Lymph # (Auto) 2500 (3797-8557) /uL [place] # (Auto) 800 (0-900) /uL Eos # (Auto) 100 (0-450) /uL Baso # (Auto) 100 (0-100) /uL Sodium 137 (137-145) mmol/L Potassium 4.1 (3.4-5.1) mmol/L Chloride 99 (98-107) mmol/L Carbon Dioxide 25 (22-32) mmol/L BUN 15 (9-20) mg/dL Creatinine 0.90 (0.66-1.25) mg/dL Estimated GFR > 60.0 (>60) mL/min BUN/Creatinine Ratio 16.7 (6-22) Glucose 40 L* (80-110) mg/dL Calcium 9.4 (8.4-10.2) mg/dL Total Bilirubin 0.9 (0.2-1.3) mg/dL AST 33 (17-59) IU/L ALT 26 (21-72) IU/L Alkaline Phosphatase 64 (38-126) U/L Total Protein 7.7 (6.3-8.2) g/dL Albumin 4.8 (3.5-5.0) g/dL Globulin 2.9 (1.7-4.1) g/dL Albumin/Globulin Ratio 1.7 (1.0-2.8) Lipase 32 (23-300) U/L Point of Care Testing Glucose POC 126 Discharge Plan Departure Patient Disposition: Home Clinical Impression: Gastroenteritis, Dehydration Discharge Date/Time: 08/05/18 23:10 Interventions: ED Discharge Assessment Last Done: 08/05/18 23:09 Instructions: DI for Dehydration -- Adult, DI for Vomiting -- Adult Activity Restrictions/Additional Instructions: Since you are feeling better and have not had vomiting today nor diarrhea since before you arrived, you can return home. Please rest tonight, continue to drink clear fluids, and use your antinausea medicine if needed. You can try a little bit of very bland foods such as crackers, applesauce, or banana if you wish, but it is okay to wait until morning. Please return if you are feeling worse again or have new symptoms such as fever or severe pain. Please follow up with your PCP for recheck in the next day or two. Prescriptions: No Action clopidogrel 75 mg Tablet 75 mg PO Q DAY Qty: 0 RF: 0 diclofenac sodium [Voltaren] 1 % gel 1 crys Topical PRN PRN (Reason: Analgesia) Qty: 0 RF: 0 ondansetron [Zofran ODT] 4 MG tablet,disintegrating 4 mg Sublingual Q6HP PRNQty: 10 RF: 0 methylphenidate HCl 20 mg tablet 20 mg PO TID Qty: 90 RF: 0 lisinopril 20 mg Tablet 20 mg PO DAILY RF: 0 omeprazole 40 mg Capsule,Delayed Release(Dr/Ec) 40 mg PO BID RF: 0 metoprolol tartrate 50 mg Tablet 50 mg PO BID RF: 0 insulin aspart U-100 [Novolog Flexpen U-100 Insulin] 100 unit/mL Insulin Pen 5 unit Sub-Q DIRECTED RF: 0 insulin glargine [Lantus Solostar U-100 Insulin] 100 unit/mL (3 mL) Insulin Pen 18 unit SUB-Q BID RF: 0 hpoqym-pirufwog-qmewfbm [Creon] 6,000-19,000 -30,000 unit Capsule,Delayed Release(Dr/Ec) 1 cap PO DIRECTED RF: 0 oszbrd-zqvtircc-xveadxg [Creon] 36,000-114,000- 180,000 unit Capsule,Delayed Release(Dr/Ec) 1 cap PO DIRECTED RF: 0 promethazine 25 MG tablet 25 mg PO Q6HP PRN (Reason: Nausea) RF: 0 cholecalciferol (vitamin D3) [Vitamin D3] 1,000 unit Capsule 1,000 unit PO BID RF: 0 acetaminophen 325 MG tablet 325 mg PO Q4HP PRN (Reason: Pain, Mild) RF: 0 promethazine [Phenergan] 25 mg suppository 25 mg VT Q6H PRN (Reason: nausea and vomiting) Qty: 10 RF: 0 dabigatran etexilate 150 mg Capsule 150 mg PO BID RF: 0 oxycodone 5 mg Tablet 5 mg PO Q4HR PRN (Reason: Pain, Moderate (4-6)) Qty: 20 RF: 0 oxycodone 5 mg Tablet 5 mg PO PRN PRN (Reason: Pain, Severe) Qty: 20 RF: 0 Referrals: Jacobo Ochoa MD [Primary Care Provider] - <Drake Conn MD - Last Filed: 08/06/18 05:03> Cosign ED Attending Cosignature Attestation: I was present in the ER at the time this patient's care. I was available for consultation or to see the patient directly if requested. I agree with the patient's evaluation, assessment and treatment plan. The patient has improved at the time of discharge.
[2018-08-05] MEDS: DEXTROSE 50 % IN WATER 25 GM/50 ML SYRINGE IV (17:34)
[2018-08-05 17:48] LABS: Add Manual Diff / Slide Review NO; Basophils Absolute Auto 100 /uL (0-100); Eosinophils Absolute Auto 100 /uL (0-450); Eosinophils Percent Auto 1.5 % (2-4); Hematocrit 43.8 % (41-53); Hemoglobin 14.7 g/dL (13.5-17.5); Lymphocytes Absolute Auto 2500 /uL (1100-4500); Lymphocytes Percent Auto 27.5 % (25-40); Mean Corpuscular HGB Conc 33.6 % (30-36); Mean Corpuscular Hemoglobin 29.9 PG (26-34); Monocytes Absolute Auto 800 /uL (0-900); Monocytes Percent Auto 9.2 % (3-14); Neutrophils Absolute Auto 5600 /uL (1500-7000); Neutrophils Percent Auto 60.8 % (50-75); Platelet Count 243 X10^3/uL (150-400); Red Blood Cell Count 4.92 X10^6/uL (4.5-5.9); Red Cell Distribution Width 14.3 % (11.6-14.8); White Blood Cell Count 9.1 X10^3/uL (4.5-11.0)
[2018-08-05 17:52] LABS: Alanine Aminotransferase 26 IU/L (21-72); Albumin 4.8 g/dL (3.5-5.0); Albumin Globulin Ratio 1.7 (1.0-2.8); Alkaline Phosphatase 64 U/L (38-126); Aspartate Aminotransferase 33 IU/L (17-59); BUN Creatinine Ratio 16.7 (6-22); Bilirubin Total 0.9 mg/dL (0.2-1.3); Blood Urea Nitrogen 15 mg/dL (9-20); Calcium 9.4 mg/dL (8.4-10.2); Carbon Dioxide 25 mmol/L (22-32); Chloride 99 mmol/L (98-107); Estimated Glomerular Filt Rate > 60.0 mL/min (>60); Globulin 2.9 g/dL (1.7-4.1); Lipase 32 U/L (23-300); Potassium 4.1 mmol/L (3.4-5.1); Sodium 137 mmol/L (137-145); Total Protein 7.7 g/dL (6.3-8.2)
--- NOTE | 2018-08-05 17:59 | ED_ITS ---
HPI - Nausea/Vomiting/Diarrhea <Digna Warren PA-C - Last Filed: 08/05/18 22:07> General Chief complaint: Nausea/Vomiting/Diarrhea Stated complaint: dehydrated/nausea/bs/b/p low x2 days Time Seen by Provider: 08/05/18 17:19 Source: patient Mode of arrival: ambulatory Limitations: no limitations History of Present Illness HPI Narrative: This 63-year-old male who has a history of chronic pancreatitis and recurrent vomiting and diarrhea related to food sensitivities an enzyme deficiency returns to ED with recurrent vomiting and diarrhea. He states that this started yesterday, after he had gone to a buffet and states there was pierce in a salad he ate and he thinks pierce fat in the dressing. This triggered it episodes of vomiting bilious material yesterday and diarrhea with steatorrhea. He states that he tried antiemetics yesterday which were not working, but today has had 2 promethazine suppositories as well as Zofran and has not had recurrent vomiting. He states his last episode of diarrhea was about 3 hours ago and he feels like the episode has calmed down, but he can't catch up on fluids. He states he is feeling dehydrated, weak and tired including mentally. States his blood sugar is low and he has had 3 8 oz electrolyte drinks which he has kept down today but thinks he needs fluids. He states that he has some crampy abdominal pain but nothing like his previous pancreatitis. He denies fever. He denies chest pain or dyspnea or other new complaints on systems review Related Data Home Medications Medication Instructions Recorded Confirmed clopidogrel 75 mg PO Q DAY #0 04/15/08 03/24/18 diclofenac sodium [Voltaren] 1 crys TOPICAL PRN PRN #0 03/14/17 03/24/18 insulin aspart U-100 [Novolog 5 unit SUB-Q DIRECTED 08/17/17 03/24/18 Flexpen U-100 Insulin] insulin glargine [Lantus Solostar 18 unit SUB-Q BID 08/17/17 03/24/18 U-100 Insulin] jupdmu-mogzfzat-ekzimoh [Creon] 1 cap PO DIRECTED 08/17/17 03/24/18 [id number]-jovzvbgm-vrxwhok [Creon] 1 cap PO DIRECTED 08/17/17 03/24/18 lisinopril 20 mg PO DAILY 08/17/17 03/24/18 metoprolol tartrate 50 mg PO BID 08/17/17 03/24/18 omeprazole 40 mg PO BID 08/17/17 03/24/18 promethazine 25 mg PO Q6HP PRN 08/17/17 03/24/18 acetaminophen 325 mg PO Q4HP PRN 09/25/17 03/24/18 cholecalciferol (vitamin D3) 1,000 unit PO BID 09/25/17 03/24/18 [Vitamin D3] dabigatran etexilate 150 mg PO BID 03/24/18 03/24/18 Previous Rx's Medication Instructions Recorded ondansetron [Zofran ODT] 4 mg SUBLINGUAL Q6HP PRN #10 odt 03/19/17 promethazine [Phenergan] 25 mg IA Q6H PRN #10 each 09/25/17 oxycodone 5 mg PO PRN PRN #20 tab 03/31/18 oxycodone 5 mg PO Q4HR PRN #20 tab 03/31/18 methylphenidate 20 mg tablet 20 mg PO TID #90 tab 07/15/18 Allergies Allergy/AdvReac Type Severity Reaction Status Date / Time Iodine and Iodide Containing Allergy Severe Anaphylaxis Verified 08/05/18 17:16 Produc [IODINE AND IODIDE CONTAINING PRODUC] Sulfa (Sulfonamide Allergy Severe Anaphylaxis Verified 08/05/18 17:16 Antibiotics) [SULFA (SULFONAMIDE ANTIBIOTICS)] Review of Systems <Digna Warren PA-C - Last Filed: 08/05/18 22:07> Review of Systems ROS Unobtainable: All systems reviewed & are unremarkable except as noted in HPI and below PFSH <Digna Warren PA-C - Last Filed: 08/05/18 22:07> Medical History GERD (gastroesophageal reflux disease) (Chronic) HTN (hypertension) (Chronic) Hyperlipidemia (Chronic) 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 Somewhat diaphoretic initially HEENT: PERRL, EOMI, no scleral icterus NECK: Supple LUNGS: Clear to auscultation bilaterally. HEART: Rate and rhythm regular, normal S1 and S2, no S3 or S4. ABDOMEN: Soft, mild generalized tenderness without guarding or rebound, nondistended, bowel sounds present x 4 quadrants, no masses palpable EXTREMITIES: No edema, no cyanosis DERMATOLOGIC: No jaundice or exanthem NEUROLOGIC: Alert and oriented with normal speech and coordination Initial Vital Signs Initial Vital Signs: Vital Signs Temperature 98.1 F 08/05/18 17:16 Pulse Rate 70 08/05/18 17:16 Respiratory Rate 18 08/05/18 17:16 Blood Pressure 130/51 L 08/05/18 17:16 Pulse Oximetry 97 08/05/18 17:16 Postural vitals after 2 L of fluid: Supine 99/55, pulse 66, sitting 105/56, pulse 79, standing 106/59, pulse 73 <Drake Conn MD - Last Filed: 08/06/18 05:03> Initial Vital Signs Initial Vital Signs: Vital Signs Temperature 98.1 F 08/05/18 17:16 Pulse Rate 70 08/05/18 17:16 Respiratory Rate 18 08/05/18 17:16 Blood Pressure 130/51 L 08/05/18 17:16 Pulse Oximetry 97 08/05/18 17:16 Course <Digna Warren PA-C - Last Filed: 08/05/18 22:07> Additional Information: Patient initially reported feeling better after 2 L of fluid and thought he could rest. He has had some persistent nausea but does not feel like he will vomit. He states he felt somewhat worse and weak again when he stood up. Blood pressure readings were somewhat low but no significant postural changes. Reviewed with Dr. Conn who remembered him needing 3 or 4 L of fluids previously. He was given an additional L with some Zofran, resting comfortably and sleeping prior to discharge without recurrent vomiting or diarrhea Orders Ordered: Discontinued Medications Dextrose (D50w) 25 gm IV NOW ONE Stop: 08/05/18 17:32 Last Admin: 08/05/18 17:34 Dose: 25 gm Sodium Chloride (Normal Saline 0.9%) 1,000 mls @ 1,000 mls/hr IV BOLUS ONE Stop: 08/05/18 18:30 Last Infusion: 08/05/18 20:06 Dose: 0 mls/hr Infusion: 08/05/18 19:19 Dose: 1,000 mls/hr Infusion: 08/05/18 19:01 Dose: 500 mls/hr Infusion: 08/05/18 18:14 Dose: 250 mls/hr Admin: 08/05/18 18:13 Dose: 1,000 mls/hr Sodium Chloride (Normal Saline 0.9%) 1,000 mls @ 1,000 mls/hr IV BOLUS ONE Stop: 08/05/18 19:43 Last Infusion: 08/05/18 21:08 Dose: 0 mls/hr Admin: 08/05/18 20:14 Dose: 1,000 mls/hr Sodium Chloride (Normal Saline 0.9%) 1,000 mls @ 1,000 mls/hr IV BOLUS ONE Stop: 08/05/18 22:30 Last Admin: 08/05/18 21:35 Dose: Not Given Sodium Chloride (Normal Saline 0.9%) 1,000 mls @ 1,000 mls/hr IV BOLUS ONE Stop: 08/05/18 22:31 Last Infusion: 08/05/18 23:08 Dose: 0 mls/hr Admin: 08/05/18 21:34 Dose: 1,000 mls/hr Lorazepam (Ativan) 1 mg IV NOW ONE Stop: 08/05/18 17:50 Last Admin: 08/05/18 18:13 Dose: 1 mg Ondansetron HCl (Zofran) 4 mg IV NOW ONE Stop: 08/05/18 21:32 Last Admin: 08/05/18 21:34 Dose: 4 mg Vital Signs - 8 hr 08/05/18 21:15 08/05/18 22:00 08/05/18 23:09 Pulse Rate 71 62 Pulse Rate [Orthostatic Lying] 66 Pulse Rate [Orthostatic Sitting] 79 Pulse Rate [Orthostatic Standing] 73 Respiratory Rate 15 14 Blood Pressure 99/52 L Blood Pressure [Left Arm] 112/54 L Blood Pressure [Orthostatic Lying] 99/55 L Blood Pressure [Orthostatic Sitting] 105/56 L Blood Pressure [Orthostatic Standing] 106/59 L Pulse Oximetry 96 100 <Drake Conn MD - Last Filed: 08/06/18 05:03> Orders Ordered: Discontinued Medications Dextrose (D50w) 25 gm IV NOW ONE Stop: 08/05/18 17:32 Last Admin: 08/05/18 17:34 Dose: 25 gm Sodium Chloride (Normal Saline 0.9%) 1,000 mls @ 1,000 mls/hr IV BOLUS ONE Stop: 08/05/18 18:30 Last Infusion: 08/05/18 20:06 Dose: 0 mls/hr Infusion: 08/05/18 19:19 Dose: 1,000 mls/hr Infusion: 08/05/18 19:01 Dose: 500 mls/hr Infusion: 08/05/18 18:14 Dose: 250 mls/hr Admin: 08/05/18 18:13 Dose: 1,000 mls/hr Sodium Chloride (Normal Saline 0.9%) 1,000 mls @ 1,000 mls/hr IV BOLUS ONE Stop: 08/05/18 19:43 Last Infusion: 08/05/18 21:08 Dose: 0 mls/hr Admin: 08/05/18 20:14 Dose: 1,000 mls/hr Sodium Chloride (Normal Saline 0.9%) 1,000 mls @ 1,000 mls/hr IV BOLUS ONE Stop: 08/05/18 22:30 Last Admin: 08/05/18 21:35 Dose: Not Given Sodium Chloride (Normal Saline 0.9%) 1,000 mls @ 1,000 mls/hr IV BOLUS ONE Stop: 08/05/18 22:31 Last Infusion: 08/05/18 23:08 Dose: 0 mls/hr Admin: 08/05/18 21:34 Dose: 1,000 mls/hr Lorazepam (Ativan) 1 mg IV NOW ONE Stop: 08/05/18 17:50 Last Admin: 08/05/18 18:13 Dose: 1 mg Ondansetron HCl (Zofran) 4 mg IV NOW ONE Stop: 08/05/18 21:32 Last Admin: 08/05/18 21:34 Dose: 4 mg Vital Signs - 8 hr 08/05/18 21:15 08/05/18 22:00 08/05/18 23:09 Pulse Rate 71 62 Pulse Rate [Orthostatic Lying] 66 Pulse Rate [Orthostatic Sitting] 79 Pulse Rate [Orthostatic Standing] 73 Respiratory Rate 15 14 Blood Pressure 99/52 L Blood Pressure [Left Arm] 112/54 L Blood Pressure [Orthostatic Lying] 99/55 L Blood Pressure [Orthostatic Sitting] 105/56 L Blood Pressure [Orthostatic Standing] 106/59 L Pulse Oximetry 96 100 MDM - Nausea/Vomiting/Diarrhea <Digna Warren PA-C - Last Filed: 08/05/18 22:07> Lab Data Attestation: I reviewed the patient's lab results. Result diagrams: 08/05/18 17:30 08/05/18 17:30 Lab Results 08/05/18 08/05/18 Range/Units 17:30 17:30 WBC 9.1 (4.5-11.0) X10^3/uL RBC 4.92 (4.5-5.9) X10^6/uL Hgb 14.7 (13.5-17.5) g/dL Hct 43.8 (41-53) % MCV 89.0 (80-100) fL MCH 29.9 (26-34) PG MCHC 33.6 (30-36) % RDW 14.3 (11.6-14.8) % Plt Count 243 (150-400) X10^3/uL Neut % (Auto) 60.8 (50-75) % Lymph % (Auto) 27.5 (25-40) % [place] % (Auto) 9.2 (3-14) % Eos % (Auto) 1.5 L (2-4) % Baso % (Auto) 1.0 (0-2) % Neut # (Auto) 5600 (4308-7403) /uL Lymph # (Auto) 2500 (3837-3415) /uL [place] # (Auto) 800 (0-900) /uL Eos # (Auto) 100 (0-450) /uL Baso # (Auto) 100 (0-100) /uL Sodium 137 (137-145) mmol/L Potassium 4.1 (3.4-5.1) mmol/L Chloride 99 (98-107) mmol/L Carbon Dioxide 25 (22-32) mmol/L BUN 15 (9-20) mg/dL Creatinine 0.90 (0.66-1.25) mg/dL Estimated GFR > 60.0 (>60) mL/min BUN/Creatinine Ratio 16.7 (6-22) Glucose 40 L* (80-110) mg/dL Calcium 9.4 (8.4-10.2) mg/dL Total Bilirubin 0.9 (0.2-1.3) mg/dL AST 33 (17-59) IU/L ALT 26 (21-72) IU/L Alkaline Phosphatase 64 (38-126) U/L Total Protein 7.7 (6.3-8.2) g/dL Albumin 4.8 (3.5-5.0) g/dL Globulin 2.9 (1.7-4.1) g/dL Albumin/Globulin Ratio 1.7 (1.0-2.8) Lipase 32 (23-300) U/L Point of Care Testing Glucose POC 126 <Drake Conn MD - Last Filed: 08/06/18 05:03> Lab Data Lab Results 08/05/18 08/05/18 Range/Units 17:30 17:30 WBC 9.1 (4.5-11.0) X10^3/uL RBC 4.92 (4.5-5.9) X10^6/uL Hgb 14.7 (13.5-17.5) g/dL Hct 43.8 (41-53) % MCV 89.0 (80-100) fL MCH 29.9 (26-34) PG MCHC 33.6 (30-36) % RDW 14.3 (11.6-14.8) % Plt Count 243 (150-400) X10^3/uL Neut % (Auto) 60.8 (50-75) % Lymph % (Auto) 27.5 (25-40) % [place] % (Auto) 9.2 (3-14) % Eos % (Auto) 1.5 L (2-4) % Baso % (Auto) 1.0 (0-2) % Neut # (Auto) 5600 (9075-9298) /uL Lymph # (Auto) 2500 (6515-5148) /uL [place] # (Auto) 800 (0-900) /uL Eos # (Auto) 100 (0-450) /uL Baso # (Auto) 100 (0-100) /uL Sodium 137 (137-145) mmol/L Potassium 4.1 (3.4-5.1) mmol/L Chloride 99 (98-107) mmol/L Carbon Dioxide 25 (22-32) mmol/L BUN 15 (9-20) mg/dL Creatinine 0.90 (0.66-1.25) mg/dL Estimated GFR > 60.0 (>60) mL/min BUN/Creatinine Ratio 16.7 (6-22) Glucose 40 L* (80-110) mg/dL Calcium 9.4 (8.4-10.2) mg/dL Total Bilirubin 0.9 (0.2-1.3) mg/dL AST 33 (17-59) IU/L ALT 26 (21-72) IU/L Alkaline Phosphatase 64 (38-126) U/L Total Protein 7.7 (6.3-8.2) g/dL Albumin 4.8 (3.5-5.0) g/dL Globulin 2.9 (1.7-4.1) g/dL Albumin/Globulin Ratio 1.7 (1.0-2.8) Lipase 32 (23-300) U/L Point of Care Testing Glucose POC 126 Discharge Plan Departure Patient Disposition: Home Clinical Impression: Gastroenteritis, Dehydration Discharge Date/Time: 08/05/18 23:10 Interventions: ED Discharge Assessment Last Done: 08/05/18 23:09 Instructions: DI for Dehydration -- Adult, DI for Vomiting -- Adult Activity Restrictions/Additional Instructions: Since you are feeling better and have not had vomiting today nor diarrhea since before you arrived, you can return home. Please rest tonight, continue to drink clear fluids, and use your antinausea medicine if needed. You can try a little bit of very bland foods such as crackers, applesauce, or banana if you wish, but it is okay to wait until morning. Please return if you are feeling worse again or have new symptoms such as fever or severe pain. Please follow up with your PCP for recheck in the next day or two. Prescriptions: No Action clopidogrel 75 mg Tablet 75 mg PO Q DAY Qty: 0 RF: 0 diclofenac sodium [Voltaren] 1 % gel 1 crys Topical PRN PRN (Reason: Analgesia) Qty: 0 RF: 0 ondansetron [Zofran ODT] 4 MG tablet,disintegrating 4 mg Sublingual Q6HP PRNQty: 10 RF: 0 methylphenidate HCl 20 mg tablet 20 mg PO TID Qty: 90 RF: 0 lisinopril 20 mg Tablet 20 mg PO DAILY RF: 0 omeprazole 40 mg Capsule,Delayed Release(Dr/Ec) 40 mg PO BID RF: 0 metoprolol tartrate 50 mg Tablet 50 mg PO BID RF: 0 insulin aspart U-100 [Novolog Flexpen U-100 Insulin] 100 unit/mL Insulin Pen 5 unit Sub-Q DIRECTED RF: 0 insulin glargine [Lantus Solostar U-100 Insulin] 100 unit/mL (3 mL) Insulin Pen 18 unit SUB-Q BID RF: 0 ghhdfx-wmsjepzg-ylucfcs [Creon] 6,000-19,000 -30,000 unit Capsule,Delayed Release(Dr/Ec) 1 cap PO DIRECTED RF: 0 asnoul-lygtlioj-oqwffkh [Creon] 36,000-114,000- 180,000 unit Capsule,Delayed Release(Dr/Ec) 1 cap PO DIRECTED RF: 0 promethazine 25 MG tablet 25 mg PO Q6HP PRN (Reason: Nausea) RF: 0 cholecalciferol (vitamin D3) [Vitamin D3] 1,000 unit Capsule 1,000 unit PO BID RF: 0 acetaminophen 325 MG tablet 325 mg PO Q4HP PRN (Reason: Pain, Mild) RF: 0 promethazine [Phenergan] 25 mg suppository 25 mg IA Q6H PRN (Reason: nausea and vomiting) Qty: 10 RF: 0 dabigatran etexilate 150 mg Capsule 150 mg PO BID RF: 0 oxycodone 5 mg Tablet 5 mg PO Q4HR PRN (Reason: Pain, Moderate (4-6)) Qty: 20 RF: 0 oxycodone 5 mg Tablet 5 mg PO PRN PRN (Reason: Pain, Severe) Qty: 20 RF: 0 Referrals: Jacobo Ochoa MD [Primary Care Provider] - <Drake Conn MD - Last Filed: 08/06/18 05:03> Cosign ED Attending Cosignature Attestation: I was present in the ER at the time this patient's care. I was available for consultation or to see the patient directly if requested. I agree with the patient's evaluation, assessment and treatment plan. The patient has improved at the time of discharge.
[2018-08-05] MEDS: SODIUM CHLORIDE 0.9% 1,000 ML 1000 ML IV ×3 (18:13→21:34)
[2018-08-05] MEDS: LORazepam 2 MG/ML SYRINGE 1 MG IV (18:13)
[2018-08-05 18:14] LABS: HEMOLYSIS 60 (0-50)
[2018-08-05 18:15] LABS: Glucose 40 mg/dL (80-110)
--- NOTE | 2018-08-05 18:15 | PC.NURSE ---
Slowed pt's IV rate down. IV will not tolerate higher rate. Provider aware.
--- NOTE | 2018-08-05 19:18 | PC.NURSE ---
Started second IV, with pt consent, in order to bolus patient at appropriate rate. The first IV in his hand will not tolerate a rate greater than 250mL/hr.
--- NOTE | 2018-08-05 19:24 | PC.NURSE ---
Pt tolerating PO fluids. Drank an Ensure Clear and Glucerna without vomiting.
[2018-08-05 20:05] VITALS: BP 101/43; PULSE 68; RESP 11; O2SAT 100
[2018-08-05 21:01] VITALS: BP 96/48; PULSE 72; RESP 17; O2SAT 98
[2018-08-05 21:15] VITALS: BP 105/56; BP 106/59; BP 99/55; PULSE 66; PULSE 73; PULSE 79
[2018-08-05] MEDS: ONDANSETRON 4 MG/2 ML INJ IV (21:34)
[2018-08-05 22:00] VITALS: BP 112/54; PULSE 71; RESP 15; O2SAT 96
[2018-08-05 23:09] VITALS: BP 99/52; PULSE 62; RESP 14; O2SAT 100
== END 2018-08-05 23:10 | disposition home or self-care (01) ==
PROVIDERS: Emergency Provider Internal Medicine; Family Provider Emergency Medicine Emergency Medical Services; PCP Emergency Medicine Emergency Medical Services
DX: E86.0 Dehydration (principal); K52.9 Noninfective gastroenteritis and colitis, unspecified; I95.9 Hypotension, unspecified; E16.2 Hypoglycemia, unspecified
CPT/HCPCS: 36591; 80053; 82962; 83690; 85025; 96361; 96374; 96375; 99284; 99285; J2060; J2405

== ENCOUNTER 2018-10-15 09:00 | Outpatient (RCR) | payer OTHER, SELFPAY ==
[2018-03-24 13:51] VITALS: BMI 26.7
--- NOTE | 2018-04-17 16:21 | PT.OIE ---
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) Past Medical History (Last Reviewed 03/24/18 @ 13:38 by Columba Wilburn MD) GERD (gastroesophageal reflux disease) (Chronic) HTN (hypertension) (Chronic) Hyperlipidemia (Chronic) 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) Narcolepsy (Chronic) Paroxysmal atrial fibrillation (Chronic) Peripheral vascular disease (Chronic) Psoriasis (Chronic) Past Surgical History (Last Reviewed 03/24/18 @ 13:38 by Columba Wilburn MD) H/O exploratory laparotomy (Acute) Provider Visit Care Team Role Provider Type Jacobo Ochoa MD Attending Provider Non-Staff Family Provider Primary Care Provider Specialty: Emergency Medicine Address: [address] [place] [address], [id number] Email: Physical Therapy Initial Evaluation PT-OP-A Visit Information Start: 04/16/18 08:24 Freq: Status: Active Protocol: Document 04/16/18 13:45 AMB (Rec: 04/16/18 16:16 AMB [email or web address]) Out-Patient Physical Therapy Visit Information Visit Information Visit Type Initial Evaluation Visit Start Time 13:45 Visit Stop Time 14:30 Total Visit Minutes 45 Visit Number 1 Evaluation Information Evaluation Date 04/16/18 PT-OP-B Current Condition Start: 04/16/18 08:24 Freq: Status: Active Protocol: Document 04/16/18 13:45 AMB (Rec: 04/17/18 08:15 AMB [email or web address]) Current Condition History of Current Condition Onset Date September 2017 Current Complaints Left heel pain/ tightness History of Current Condition The patient reports that in September he fell onto his left foot from a 3 foot height. He kept hiking and backpacking until December, when the pain got really bad and he had to stop. Per his report he initially had a few small stress fractures, but those are now healed. He was given a boot and has been weaning off of it, and now just uses it as needed with pain. Personal Factors Other Personal Factors That May Effect Pt has Agent [place] exposure Therapy/Recovery that he states has caused bilateral lower and upper extremity neuropathy, and pancreatic insufficiency that has caused him to go to the ER 8 times in the last year. 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 He used to be on extensive opiates for the pain from being unable to have graft surgery on the left, but has been trained in hypnotic pain relief for this. He does use opiates for the pancreatic pain. PT-OP-C Subjective Start: 04/16/18 08:24 Freq: Status: Active Protocol: Document 04/16/18 13:45 AMB (Rec: 04/17/18 08:15 AMB [email or web address]) Patient Questionnaires Foot & Ankle Ability Measure- ADL and Sports FAAM-ADL Score 56 FAAM-ADL Impairment 20 to 39% Impaired (Score 50- 66) FAAM-Sport Score 10 FAAM-Sport Impairment 60 to 79% Impaired (Score 6-11 ) Lower Extremity Functional Scale LEFS Score 56 LEFS Impairment 20 to 39% Impaired (Score 48- 62) PT-OP-D Balance Start: 04/16/18 08:24 Freq: Status: Active Protocol: Document 04/16/18 13:45 AMB (Rec: 04/17/18 16:03 AMB [email or web address]) Balance Tests Single Limb Standing Single Limb- Right 3 seconds Single Limb- Left pain limits PT-OP-F Manual Assessment Start: 04/16/18 08:24 Freq: Status: Active Protocol: Document 04/16/18 13:45 AMB (Rec: 04/17/18 10:30 AMB [email or web address]) Manual Assessments Soft Tissue Assessment Soft Tissue Mobility Assessment Tenderness at heel and plantarfascia, not as tender at achilles attachment, tender at forefoot with metatarsal mobilization. PT-OP-G Mobility & Gait Start: 04/16/18 08:24 Freq: Status: Active Protocol: Document 04/16/18 13:45 AMB (Rec: 04/17/18 10:30 AMB [email or web address]) OP Gait Assessment Comments Gait Comments Pt ambulates with hiking boots , slight antalgic gait, but no assistive device. PT-OP-J Posture/Palpation/Skin Start: 04/16/18 08:24 Freq: Status: Active Protocol: Document 04/16/18 13:45 AMB (Rec: 04/17/18 10:30 AMB [email or web address]) Posture Evaluation Comments Posture Comments High arches PT-OP-K Range of Motion Start: 04/16/18 08:24 Freq: Status: Active Protocol: Document 04/16/18 13:45 AMB (Rec: 04/17/18 10:30 AMB [email or web address]) Ankle and Foot Goniometric Range of Motion Ankle and Foot Measured in Degrees Right Passive Testing Position Supine Dorsiflexion with Knee Extended 5 Plantarflexion 50 Inversion 35 Eversion 25 Left Passive Dorsiflexion with Knee Extended 5 Plantarflexion 50 Inversion 30 Eversion 25 Ankle and Foot ROM Limitations Comments missing 7 degrees dorsiflexion from neutral with knee extended PT-OP-M Strength Start: 04/16/18 08:24 Freq: Status: Active Protocol: Document 04/16/18 13:45 AMB (Rec: 04/17/18 16:01 AMB [email or web address]) Ankle/Foot Strength Ankle and Foot Manual Muscle Testing Right Dorsiflexion (L4) 5 Normal Plantarflexion (S1) 5 Normal Inversion 4+ Good+ Eversion (S1) 5 Normal Left Dorsiflexion (L4) 4 Good Plantarflexion (S1) 4 Good Inversion 3+ Fair+ Eversion (S1) 4 Good Toe Strength Toe Manual Muscle Testing Right Great Toe Flexion 5 Normal Comments toes 2-5 flexion 5/5 Left Great Toe Extension 4- Good- Comments toe flexion 2-5: 3/5 PT-OP-Q Treatments Start: 04/16/18 08:24 Freq: Status: Active Protocol: Document 04/16/18 13:45 AMB (Rec: 04/17/18 16:01 AMB [email or web address]) Therapeutic Exercises Supine Exercises 2 Supine Exercise Name ankle circumduction 1 Supine Exercise Name marble warp picker PT-OP-T Assessment and Plan Start: 04/16/18 08:24 Freq: Status: Active Protocol: Document 04/16/18 14:30 AMB (Rec: 04/17/18 16:20 AMB [email or web address]) Physical Therapy Assessment Rehab Potential Rehabilitation Potential Good Evaluation Complexity Number of Personal Factors/Comorbidities 3 or More Number of Body Systems Impaired 4 or More Clinical Presentation at Evaluation Evolving Impairments Impairments Balance Pain ROM Sensation Strength Goals Three Impairment Hiking Short Term Goal (STG) The patient will ambulate over smooth surfaces with good shoes for 30 minutes with foot pain of 4/10 or less. STG Duration 4 weeks Halfway Goal (LTG) The patient will hike for 30 minutes with a 20# pack with pain of 4/10 or less. LTG Duration 8 weeks Two Impairment Range of motion Short Term Goal (STG) Ankle dorsiflexion to 10 degrees bilaterally. STG Duration 4 weeks One Impairment Strength Short Term Goal (STG) Increase toe strength in all planes to 4+/5 STG Duration 4 weeks Assessment Summary Assessment The patient presents to physical therapy with a high level of heel pain from an plantar fascia injury in a fall. This is complicated by his neuropathy and pain due to poor circulation. His dorsiflexion range of motion and toe and plantarflexion strength are limited. He is wearing good supportive shoes, but has not been icing or wearing his night splint. His goals of backpacking are fairly high level, so we will need to progress him considerably. Physical Therapy Plan Frequency and Duration Frequency of Treatment 2x/Week Duration of Treatment 8 weeks Plan of Care Start Date 04/16/18 Plan of Care End Date 06/11/18 Therapeutic Interventions Therapeutic Interventions Aquatic Therapy Balance Training Gait Training Home Exercise Program Manual Therapy Neuromuscular Re-education Self-Care/Home Management Soft Tissue Mobilization Therapeutic Activities Therapeutic Exercises Modalities Cold Pack/Ice Massage Electric Stimulation Ultrasound Next Visit Focus/Plan Next Note Type Treatment Note Next Visit Plan Progress HEP, calf stretching, intrinsic strengthening, inflammation control
--- NOTE | 2018-04-17 16:23 | PT.OPPOC ---
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) Provider Visit Care Team Role Provider Type Jacobo Ochoa MD Attending Provider Non-Staff Family Provider Primary Care Provider Specialty: Emergency Medicine Address: [address] [place] [address], [id number] Email: Plan Of Care PT-OP-T Assessment and Plan Start: 04/16/18 08:24 Freq: Status: Active Protocol: Document 04/16/18 14:30 AMB (Rec: 04/17/18 16:20 AMB [email or web address]) Physical Therapy Assessment Rehab Potential Rehabilitation Potential Good Evaluation Complexity Number of Personal Factors/Comorbidities 3 or More Number of Body Systems Impaired 4 or More Clinical Presentation at Evaluation Evolving Impairments Impairments Balance Pain ROM Sensation Strength Goals Three Impairment Hiking Short Term Goal (STG) The patient will ambulate over smooth surfaces with good shoes for 30 minutes with foot pain of 4/10 or less. STG Duration 4 weeks Penitentiary Goal (LTG) The patient will hike for 30 minutes with a 20# pack with pain of 4/10 or less. LTG Duration 8 weeks Two Impairment Range of motion Short Term Goal (STG) Ankle dorsiflexion to 10 degrees bilaterally. STG Duration 4 weeks One Impairment Strength Short Term Goal (STG) Increase toe strength in all planes to 4+/5 STG Duration 4 weeks Assessment Summary Assessment The patient presents to physical therapy with a high level of heel pain from an plantar fascia injury in a fall. This is complicated by his neuropathy and pain due to poor circulation. His dorsiflexion range of motion and toe and plantarflexion strength are limited. He is wearing good supportive shoes, but has not been icing or wearing his night splint. His goals of backpacking are fairly high level, so we will need to progress him considerably. Physical Therapy Plan Frequency and Duration Frequency of Treatment 2x/Week Duration of Treatment 8 weeks Plan of Care Start Date 04/16/18 Plan of Care End Date 06/11/18 Therapeutic Interventions Therapeutic Interventions Aquatic Therapy Balance Training Gait Training Home Exercise Program Manual Therapy Neuromuscular Re-education Self-Care/Home Management Soft Tissue Mobilization Therapeutic Activities Therapeutic Exercises Modalities Cold Pack/Ice Massage Electric Stimulation Ultrasound Next Visit Focus/Plan Next Note Type Treatment Note Next Visit Plan Progress HEP, calf stretching, intrinsic strengthening, inflammation control Plan of Care Dates Plan of Care Start Date 04/16/18 Plan of Care End Date 06/11/18 Please Sign and Return: I have reviewed this Plan of Care and certify that the skilled therapy services above are required to meet the patient?s needs. Physician Signature Date Printed Name and Credentials Clinical Instructor Signature Printed Name and Credentials
--- NOTE | 2018-04-18 08:43 | PT.OTN ---
Current Diagnoses Plantar fascial fibromatosis (04/18/18) Physical Therapy Treatment Note PT-OP-A Visit Information Start: 04/16/18 08:24 Freq: Status: Active Protocol: Document 04/18/18 07:30 AMB (Rec: 04/18/18 07:35 AMB [id number]) Out-Patient Physical Therapy Visit Information Visit Information Visit Type Treatment Note Visit Start Time 07:30 Visit Stop Time 08:15 Total Visit Minutes 45 Visit Number 2 PT-OP-B Current Condition Start: 04/16/18 08:24 Freq: Status: Active Protocol: Document 04/16/18 13:45 AMB (Rec: 04/17/18 08:15 AMB [email or web address]) Current Condition History of Current Condition Onset Date September 2017 Current Complaints Left heel pain/ tightness History of Current Condition The patient reports that in September he fell onto his left foot from a 3 foot height. He kept hiking and backpacking until December, when the pain got really bad and he had to stop. Per his report he intially had a few small stress fractures, but those are now healed. He was given a boot and has been weaning off of it, and now just uses it as needed with pain. Personal Factors Other Personal Factors That May Effect Pt has Agent [place] exposure Therapy/Recovery that he states has caused bilateral lower and upper extremity neuropathy, and pancreatic insufficiency that has caused him to go to the ER 8 times in the last year. 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 He used to be on extensive opiates for the pain from being unable to have graft surgery on the left, but has been trained in hypnotic pain relief for this. He does use opiates for the pancreatic pain. PT-OP-C Subjective Start: 04/16/18 08:24 Freq: Status: Active Protocol: Document 04/18/18 07:30 AMB (Rec: 04/18/18 07:35 AMB [id number]) OP-PT Subjective Patient Comments Patient Comments Has tried the frozen water bottle, that was ok 4 minutes. PT-OP-D Balance Start: 04/16/18 08:24 Freq: Status: Active Protocol: Document 04/16/18 13:45 AMB (Rec: 04/17/18 16:03 AMB [email or web address]) Balance Tests Single Limb Standing Single Limb- Right 3 seconds Single Limb- Left pain limits PT-OP-F Manual Assessment Start: 04/16/18 08:24 Freq: Status: Active Protocol: Document 04/16/18 13:45 AMB (Rec: 04/17/18 10:30 AMB [email or web address]) Manual Assessments Soft Tissue Assessment Soft Tissue Mobility Assessment Tenderness at heel and plantarfascia, not as tender at achilles attachment, tender at forefoot with metatarsal mobilization. PT-OP-G Mobility & Gait Start: 04/16/18 08:24 Freq: Status: Active Protocol: Document 04/16/18 13:45 AMB (Rec: 04/17/18 10:30 AMB [email or web address]) OP Gait Assessment Comments Gait Comments Pt ambulates with hiking boots , slight antalgic gait, but no assistive device. PT-OP-J Posture/Palpation/Skin Start: 04/16/18 08:24 Freq: Status: Active Protocol: Document 04/16/18 13:45 AMB (Rec: 04/17/18 10:30 AMB [email or web address]) Posture Evaluation Comments Posture Comments High arches PT-OP-K Range of Motion Start: 04/16/18 08:24 Freq: Status: Active Protocol: Document 04/16/18 13:45 AMB (Rec: 04/17/18 10:30 AMB [email or web address]) Ankle and Foot Goniometric Range of Motion Ankle and Foot Measured in Degrees Right Passive Testing Position Supine Dorsiflexion with Knee Extended 5 Plantarflexion 50 Inversion 35 Eversion 25 Left Passive Dorsiflexion with Knee Extended 5 Plantarflexion 50 Inversion 30 Eversion 25 Ankle and Foot ROM Limitations Comments missing 7 degrees dorsiflexion from neutral with knee extended PT-OP-M Strength Start: 04/16/18 08:24 Freq: Status: Active Protocol: Document 04/16/18 13:45 AMB (Rec: 04/17/18 16:01 AMB [email or web address]) Ankle/Foot Strength Ankle and Foot Manual Muscle Testing Right Dorsiflexion (L4) 5 Normal Plantarflexion (S1) 5 Normal Inversion 4+ Good+ Eversion (S1) 5 Normal Left Dorsiflexion (L4) 4 Good Plantarflexion (S1) 4 Good Inversion 3+ Fair+ Eversion (S1) 4 Good Toe Strength Toe Manual Muscle Testing Right Great Toe Flexion 5 Normal Comments toes 2-5 flexion 5/5 Left Great Toe Extension 4- Good- Comments toe flexion 2-5: 3/5 PT-OP-Q Treatments Start: 04/16/18 08:24 Freq: Status: Active Protocol: Document 04/18/18 07:30 AMB (Rec: 04/18/18 08:38 AMB [email or web address]) Cardio Equipment Recumbent Bicycle Duration (Minutes) 5 Resistance 8 Gym Equipment Shuttle Recovery Bilateral Heel Raises Resistance 50# Therapeutic Exercises Supine Exercises 4 Supine Exercise Name toe flexion Comments manual resistance 3 Supine Exercise Name t-band ankle 3 way Equipment Used #3 t band Comments pf, inv, sascha Standing Exercises 1 Standing Exercise Name calf stretch Comments JOSE Manual Therapy Treatment Soft Tissue Mobilization 1 Mobilization Type Myofascial Release Intensity/Depth Superficial Body Position Supine Comments plantar fascia Manual Techniques 1 Type passive stretching Comments into ankle dorsiflexion PT-OP-R Modalities Start: 04/16/18 08:24 Freq: Status: Active Protocol: Document 04/18/18 07:30 AMB (Rec: 04/18/18 08:38 AMB [email or web address]) Hot Pack/Cold Pack Treatment Cold Pack Location L foot Patient Position Supine Treatment Duration (minutes) 10 Comments with towel between foot and cold pack. Pt did not tolerate ice massage. Ultrasound Therapy Treatment Left Volar Foot Treatment Duration (minutes) 7 Patient Position Supine Coupling Medium Ultrasound Gel Frequency Setting (mHz) 1 Intensity Setting (w/cm2) 1.2 PT-OP-T Assessment and Plan Start: 04/16/18 08:24 Freq: Status: Active Protocol: Document 04/18/18 07:30 AMB (Rec: 04/18/18 08:42 AMB [email or web address]) Physical Therapy Assessment Assessment Summary Assessment The patient tolerated ice pack well, but not ice massage. Reinforced not stepping on foot barefoot, foot strengthening and stretching. Physical Therapy Plan Next Visit Focus/Plan Next Note Type Treatment Note Next Visit Plan progress standing balance exercises, stretching
--- NOTE | 2018-04-23 16:22 | PT.OTN ---
Current Diagnoses Plantar fascial fibromatosis (04/23/18) Physical Therapy Treatment Note PT-OP-A Visit Information Start: 04/16/18 08:24 Freq: Status: Active Protocol: Document 04/23/18 16:13 SA (Rec: 04/23/18 16:22 SA [email or web address]) Out-Patient Physical Therapy Visit Information Visit Information Visit Type Treatment Note Visit Start Time 14:30 Visit Stop Time 15:16 Total Visit Minutes 46 Visit Number 3 PT-OP-B Current Condition Start: 04/16/18 08:24 Freq: Status: Active Protocol: Document 04/16/18 13:45 AMB (Rec: 04/17/18 08:15 AMB [email or web address]) Current Condition History of Current Condition Onset Date September 2017 Current Complaints Left heel pain/ tightness History of Current Condition The patient reports that in September he fell onto his left foot from a 3 foot height. He kept hiking and backpacking until December, when the pain got really bad and he had to stop. Per his report he intially had a few small stress fractures, but those are now healed. He was given a boot and has been weaning off of it, and now just uses it as needed with pain. Personal Factors Other Personal Factors That May Effect Pt has Agent [place] exposure Therapy/Recovery that he states has caused bilateral lower and upper extremity neuropathy, and pancreatic insufficiency that has caused him to go to the ER 8 times in the last year. 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 He used to be on extensive opiates for the pain from being unable to have graft surgery on the left, but has been trained in hypnotic pain relief for this. He does use opiates for the pancreatic pain. PT-OP-C Subjective Start: 04/16/18 08:24 Freq: Status: Active Protocol: Document 04/23/18 16:13 SA (Rec: 04/23/18 16:22 SA [email or web address]) OP-PT Subjective Patient Comments Patient Comments Pt wearing DF boot at night and really supportive hiking boots every day and symptoms seem to be improving, did not do exercises though. PT-OP-D Balance Start: 04/16/18 08:24 Freq: Status: Active Protocol: Document 04/16/18 13:45 AMB (Rec: 04/17/18 16:03 AMB [email or web address]) Balance Tests Single Limb Standing Single Limb- Right 3 seconds Single Limb- Left pain limits PT-OP-F Manual Assessment Start: 04/16/18 08:24 Freq: Status: Active Protocol: Document 04/16/18 13:45 AMB (Rec: 04/17/18 10:30 AMB [email or web address]) Manual Assessments Soft Tissue Assessment Soft Tissue Mobility Assessment Tenderness at heel and plantarfascia, not as tender at achilles attachment, tender at forefoot with metatarsal mobilization. PT-OP-G Mobility & Gait Start: 04/16/18 08:24 Freq: Status: Active Protocol: Document 04/16/18 13:45 AMB (Rec: 04/17/18 10:30 AMB [email or web address]) OP Gait Assessment Comments Gait Comments Pt ambulates with hiking boots , slight antalgic gait, but no assistive device. PT-OP-J Posture/Palpation/Skin Start: 04/16/18 08:24 Freq: Status: Active Protocol: Document 04/16/18 13:45 AMB (Rec: 04/17/18 10:30 AMB [email or web address]) Posture Evaluation Comments Posture Comments High arches PT-OP-K Range of Motion Start: 04/16/18 08:24 Freq: Status: Active Protocol: Document 04/16/18 13:45 AMB (Rec: 04/17/18 10:30 AMB [email or web address]) Ankle and Foot Goniometric Range of Motion Ankle and Foot Measured in Degrees Right Passive Testing Position Supine Dorsiflexion with Knee Extended 5 Plantarflexion 50 Inversion 35 Eversion 25 Left Passive Dorsiflexion with Knee Extended 5 Plantarflexion 50 Inversion 30 Eversion 25 Ankle and Foot ROM Limitations Comments missing 7 degrees dorsiflexion from neutral with knee extended PT-OP-M Strength Start: 04/16/18 08:24 Freq: Status: Active Protocol: Document 04/16/18 13:45 AMB (Rec: 04/17/18 16:01 AMB [email or web address]) Ankle/Foot Strength Ankle and Foot Manual Muscle Testing Right Dorsiflexion (L4) 5 Normal Plantarflexion (S1) 5 Normal Inversion 4+ Good+ Eversion (S1) 5 Normal Left Dorsiflexion (L4) 4 Good Plantarflexion (S1) 4 Good Inversion 3+ Fair+ Eversion (S1) 4 Good Toe Strength Toe Manual Muscle Testing Right Great Toe Flexion 5 Normal Comments toes 2-5 flexion 5/5 Left Great Toe Extension 4- Good- Comments toe flexion 2-5: 3/5 PT-OP-Q Treatments Start: 04/16/18 08:24 Freq: Status: Active Protocol: Document 04/23/18 16:13 (Rec: 04/23/18 16:22 [email or web address]) Cardio Equipment Recumbent Bicycle Duration (Minutes) 6 Resistance 8 Gym Equipment Shuttle Recovery Bilateral Heel Raises Resistance 50# Reps/Time 20 Therapeutic Exercises Supine Exercises 4 Supine Exercise Name toe flexion Comments manual resistance 3 Supine Exercise Name t-band ankle 3 way Equipment Used #3 t band Comments pf, inv, sascha Standing Exercises 1 Standing Exercise Name calf stretch Comments seated with belt Manual Therapy Treatment Soft Tissue Mobilization 1 Mobilization Type Myofascial Release Intensity/Depth Superficial Body Position Supine Comments plantar fascia Manual Techniques 1 Type passive stretching Comments into ankle dorsiflexion PT-OP-R Modalities Start: 04/16/18 08:24 Freq: Status: Active Protocol: Document 04/23/18 16:13 (Rec: 04/23/18 16:22 [email or web address]) Hot Pack/Cold Pack Treatment Cold Pack Location L foot Patient Position Supine Treatment Duration (minutes) 10 PT-OP-T Assessment and Plan Start: 04/16/18 08:24 Freq: Status: Active Protocol: Document 04/23/18 16:13 (Rec: 04/23/18 16:22 [email or web address]) Physical Therapy Assessment Assessment Summary Assessment Pt changing habits and stretching first thing in morning prior to stepping, tolerates ice pack but not massage. continue poing tenderness through medial heel . Physical Therapy Plan Next Visit Focus/Plan Next Note Type Treatment Note Next Visit Plan progress standing balance exercises, stretching
--- NOTE | 2018-04-25 08:30 | PT.OTN ---
Current Diagnoses Plantar fascial fibromatosis (04/25/18) Physical Therapy Treatment Note PT-OP-A Visit Information Start: 04/16/18 08:24 Freq: Status: Active Protocol: Document 04/25/18 07:30 AMB (Rec: 04/25/18 07:35 AMB [id number]) Out-Patient Physical Therapy Visit Information Visit Information Visit Type Treatment Note Visit Start Time 07:30 Visit Stop Time 08:15 Total Visit Minutes 45 Visit Number 4 PT-OP-B Current Condition Start: 04/16/18 08:24 Freq: Status: Active Protocol: Document 04/16/18 13:45 AMB (Rec: 04/17/18 08:15 AMB [email or web address]) Current Condition History of Current Condition Onset Date September 2017 Current Complaints Left heel pain/ tightness History of Current Condition The patient reports that in September he fell onto his left foot from a 3 foot height. He kept hiking and backpacking until December, when the pain got really bad and he had to stop. Per his report he intially had a few small stress fractures, but those are now healed. He was given a boot and has been weaning off of it, and now just uses it as needed with pain. 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 He used to be on extensive opiates for the pain from being unable to have graft surgery on the left, but has been trained in hypnotic pain relief for this. He does use opiates for the pancreatic pain. PT-OP-C Subjective Start: 04/16/18 08:24 Freq: Status: Active Protocol: Document 04/25/18 07:30 AMB (Rec: 04/25/18 07:35 AMB [email or web address]) OP-PT Subjective Patient Comments Patient Comments Pt has been doing stretches but not strengthening exercises. PT-OP-D Balance Start: 04/16/18 08:24 Freq: Status: Active Protocol: Document 04/16/18 13:45 AMB (Rec: 04/17/18 16:03 AMB [email or web address]) Balance Tests Single Limb Standing Single Limb- Right 3 seconds Single Limb- Left pain limits PT-OP-F Manual Assessment Start: 04/16/18 08:24 Freq: Status: Active Protocol: Document 04/16/18 13:45 AMB (Rec: 04/17/18 10:30 AMB [email or web address]) Manual Assessments Soft Tissue Assessment Soft Tissue Mobility Assessment Tenderness at heel and plantarfascia, not as tender at achilles attachment, tender at forefoot with metatarsal mobilization. PT-OP-G Mobility & Gait Start: 04/16/18 08:24 Freq: Status: Active Protocol: Document 04/16/18 13:45 AMB (Rec: 04/17/18 10:30 AMB [email or web address]) OP Gait Assessment Comments Gait Comments Pt ambulates with hiking boots , slight antalgic gait, but no assistive device. PT-OP-J Posture/Palpation/Skin Start: 04/16/18 08:24 Freq: Status: Active Protocol: Document 04/16/18 13:45 AMB (Rec: 04/17/18 10:30 AMB [email or web address]) Posture Evaluation Comments Posture Comments High arches PT-OP-K Range of Motion Start: 04/16/18 08:24 Freq: Status: Active Protocol: Document 04/16/18 13:45 AMB (Rec: 04/17/18 10:30 AMB [email or web address]) Ankle and Foot Goniometric Range of Motion Ankle and Foot Measured in Degrees Right Passive Testing Position Supine Dorsiflexion with Knee Extended 5 Plantarflexion 50 Inversion 35 Eversion 25 Left Passive Dorsiflexion with Knee Extended 5 Plantarflexion 50 Inversion 30 Eversion 25 Ankle and Foot ROM Limitations Comments missing 7 degrees dorsiflexion from neutral with knee extended PT-OP-M Strength Start: 04/16/18 08:24 Freq: Status: Active Protocol: Document 04/16/18 13:45 AMB (Rec: 04/17/18 16:01 AMB [email or web address]) Ankle/Foot Strength Ankle and Foot Manual Muscle Testing Right Dorsiflexion (L4) 5 Normal Plantarflexion (S1) 5 Normal Inversion 4+ Good+ Eversion (S1) 5 Normal Left Dorsiflexion (L4) 4 Good Plantarflexion (S1) 4 Good Inversion 3+ Fair+ Eversion (S1) 4 Good Toe Strength Toe Manual Muscle Testing Right Great Toe Flexion 5 Normal Comments toes 2-5 flexion 5/5 Left Great Toe Extension 4- Good- Comments toe flexion 2-5: 3/5 PT-OP-Q Treatments Start: 04/16/18 08:24 Freq: Status: Active Protocol: Document 04/25/18 07:30 AMB (Rec: 04/25/18 08:24 AMB [email or web address]) Cardio Equipment Bicycle (Upright) Duration (Minutes) 5 Resistance 10 Seat Position 5 Therapeutic Exercises Supine Exercises 4 Supine Exercise Name toe flexion Comments manual resistance Standing Exercises 1 Standing Exercise Name calf stretch Comments seated with belt Manual Therapy Treatment Soft Tissue Mobilization 1 Mobilization Type Myofascial Release Intensity/Depth Superficial Body Position Supine Comments plantar fascia Manual Techniques 1 Type passive stretching Comments into ankle dorsiflexion Neuro Re-Education Treatment Balance Activities 2 Details rocker board Comments a/p 1 Details foam balance-nascimento Reps/Duration 30x3 Comments EO/EC PT-OP-R Modalities Start: 04/16/18 08:24 Freq: Status: Active Protocol: Document 04/25/18 07:30 AMB (Rec: 04/25/18 08:24 AMB [email or web address]) Hot Pack/Cold Pack Treatment Cold Pack Location L foot Patient Position Supine Treatment Duration (minutes) 10 Ultrasound Therapy Treatment Left Volar Foot Treatment Duration (minutes) 7 Patient Position Supine Coupling Medium Ultrasound Gel Frequency Setting (mHz) 1 Intensity Setting (w/cm2) 1.2 PT-OP-T Assessment and Plan Start: 04/16/18 08:24 Freq: Status: Active Protocol: Document 04/25/18 07:30 AMB (Rec: 04/25/18 08:29 AMB [email or web address]) Physical Therapy Assessment Assessment Summary Assessment The patient is consistent with his stretching exercises but will need to increase his strengthening/ balance. Physical Therapy Plan Next Visit Focus/Plan Next Note Type Treatment Note Next Visit Plan Follow up on foot strengthening, progress balance exercise, manual therapy and modalities for pain relief as necessary
--- NOTE | 2018-04-30 09:42 | PT.OTN ---
Current Diagnoses Plantar fascial fibromatosis (04/30/18) Physical Therapy Treatment Note PT-OP-A Visit Information Start: 04/16/18 08:24 Freq: Status: Active Protocol: Document 04/30/18 09:33 SA (Rec: 04/30/18 09:42 SA [email or web address]) Out-Patient Physical Therapy Visit Information Visit Information Visit Type Treatment Note Visit Start Time 08:15 Visit Stop Time 09:03 Total Visit Minutes 48 Visit Number 5 Number of ANIMAL SHELTER SUPERVISOR Visits 1 PT-OP-B Current Condition Start: 04/16/18 08:24 Freq: Status: Active Protocol: Document 04/16/18 13:45 AMB (Rec: 04/17/18 08:15 AMB [email or web address]) Current Condition History of Current Condition Onset Date September 2017 Current Complaints Left heel pain/ tightness History of Current Condition The patient reports that in September he fell onto his left foot from a 3 foot height. He kept hiking and backpacking until December, when the pain got really bad and he had to stop. Per his report he intially had a few small stress fractures, but those are now healed. He was given a boot and has been weaning off of it, and now just uses it as needed with pain. 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 He used to be on extensive opiates for the pain from being unable to have graft surgery on the left, but has been trained in hypnotic pain relief for this. He does use opiates for the pancreatic pain. PT-OP-C Subjective Start: 04/16/18 08:24 Freq: Status: Active Protocol: Document 04/30/18 09:33 SA (Rec: 04/30/18 09:42 SA [email or web address]) OP-PT Subjective Patient Comments Patient Comments Pt reports gradually feeling better, using boot at night and doing stretches daily. PT-OP-D Balance Start: 04/16/18 08:24 Freq: Status: Active Protocol: Document 04/16/18 13:45 AMB (Rec: 04/17/18 16:03 AMB [email or web address]) Balance Tests Single Limb Standing Single Limb- Right 3 seconds Single Limb- Left pain limits PT-OP-F Manual Assessment Start: 04/16/18 08:24 Freq: Status: Active Protocol: Document 04/16/18 13:45 AMB (Rec: 04/17/18 10:30 AMB [email or web address]) Manual Assessments Soft Tissue Assessment Soft Tissue Mobility Assessment Tenderness at heel and plantarfascia, not as tender at achilles attachment, tender at forefoot with metatarsal mobilization. PT-OP-G Mobility & Gait Start: 04/16/18 08:24 Freq: Status: Active Protocol: Document 04/16/18 13:45 AMB (Rec: 04/17/18 10:30 AMB [email or web address]) OP Gait Assessment Comments Gait Comments Pt ambulates with hiking boots , slight antalgic gait, but no assistive device. PT-OP-J Posture/Palpation/Skin Start: 04/16/18 08:24 Freq: Status: Active Protocol: Document 04/16/18 13:45 AMB (Rec: 04/17/18 10:30 AMB [email or web address]) Posture Evaluation Comments Posture Comments High arches PT-OP-K Range of Motion Start: 04/16/18 08:24 Freq: Status: Active Protocol: Document 04/16/18 13:45 AMB (Rec: 04/17/18 10:30 AMB [email or web address]) Ankle and Foot Goniometric Range of Motion Ankle and Foot Measured in Degrees Right Passive Testing Position Supine Dorsiflexion with Knee Extended 5 Plantarflexion 50 Inversion 35 Eversion 25 Left Passive Dorsiflexion with Knee Extended 5 Plantarflexion 50 Inversion 30 Eversion 25 Ankle and Foot ROM Limitations Comments missing 7 degrees dorsiflexion from neutral with knee extended PT-OP-M Strength Start: 04/16/18 08:24 Freq: Status: Active Protocol: Document 04/16/18 13:45 AMB (Rec: 04/17/18 16:01 AMB [email or web address]) Ankle/Foot Strength Ankle and Foot Manual Muscle Testing Right Dorsiflexion (L4) 5 Normal Plantarflexion (S1) 5 Normal Inversion 4+ Good+ Eversion (S1) 5 Normal Left Dorsiflexion (L4) 4 Good Plantarflexion (S1) 4 Good Inversion 3+ Fair+ Eversion (S1) 4 Good Toe Strength Toe Manual Muscle Testing Right Great Toe Flexion 5 Normal Comments toes 2-5 flexion 5/5 Left Great Toe Extension 4- Good- Comments toe flexion 2-5: 3/5 PT-OP-Q Treatments Start: 04/16/18 08:24 Freq: Status: Active Protocol: Document 04/30/18 09:33 (Rec: 04/30/18 09:42 [email or web address]) Cardio Equipment Recumbent Bicycle Duration (Minutes) 6 Resistance 8 Therapeutic Exercises Supine Exercises 4 Supine Exercise Name toe flexion Comments manual resistance 3 Supine Exercise Name t-band ankle 3 way Equipment Used #3 t band Comments pf, inv, sascha Standing Exercises 1 Standing Exercise Name calf stretch Comments seated with belt Neuro Re-Education Treatment Balance Activities 2 Details rocker board Reps/Duration 2 min Comments a/p 1 Details yellow balance disc Reps/Duration 2 min Comments EO/EC PT-OP-R Modalities Start: 04/16/18 08:24 Freq: Status: Active Protocol: Document 04/30/18 09:33 (Rec: 04/30/18 09:42 [email or web address]) Hot Pack/Cold Pack Treatment Cold Pack Location L foot Patient Position Supine Treatment Duration (minutes) 10 Ultrasound Therapy Treatment Left Volar Foot Treatment Duration (minutes) 7 Patient Position Supine Coupling Medium Ultrasound Gel Frequency Setting (mHz) 1 Intensity Setting (w/cm2) 1.2 PT-OP-T Assessment and Plan Start: 04/16/18 08:24 Freq: Status: Active Protocol: Document 04/30/18 09:33 (Rec: 04/30/18 09:42 [email or web address]) Physical Therapy Assessment Assessment Summary Assessment Pt progressing well with decreasing symptoms, given SLS at counter to add to HEP and encouraged to continue with stretching. Physical Therapy Plan Next Visit Focus/Plan Next Note Type Treatment Note Next Visit Plan Progress balance and strengthening program and manual therapy as tolerated.
--- NOTE | 2018-05-02 13:45 | PT.OTN ---
Current Diagnoses Plantar fascial fibromatosis (05/02/18) Physical Therapy Treatment Note PT-OP-A Visit Information Start: 04/16/18 08:24 Freq: Status: Active Protocol: Document 05/02/18 13:45 RCC (Rec: 05/02/18 14:26 RCC [email or web address]) Out-Patient Physical Therapy Visit Information Visit Information Visit Type Treatment Note Visit Start Time 13:45 Visit Stop Time 14:18 Total Visit Minutes 33 Visit Number 6 Number of CAMPUS PRESIDENT Visits 0 PT-OP-B Current Condition Start: 04/16/18 08:24 Freq: Status: Active Protocol: Document 04/16/18 13:45 AMB (Rec: 04/17/18 08:15 AMB [email or web address]) Current Condition History of Current Condition Onset Date September 2017 Current Complaints Left heel pain/ tightness History of Current Condition The patient reports that in September he fell onto his left foot from a 3 foot height. He kept hiking and backpacking until December, when the pain got really bad and he had to stop. Per his report he intially had a few small stress fractures, but those are now healed. He was given a boot and has been weaning off of it, and now just uses it as needed with pain. 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 He used to be on extensive opiates for the pain from being unable to have graft surgery on the left, but has been trained in hypnotic pain relief for this. He does use opiates for the pancreatic pain. PT-OP-C Subjective Start: 04/16/18 08:24 Freq: Status: Active Protocol: Document 05/02/18 13:45 RCC (Rec: 05/02/18 14:26 RCC [email or web address]) OP-PT Subjective Patient Comments Patient Comments Pt had a colonoscopy yesterday , note that they took multiple biopsies and he is not feeling like he can tolerate active exercises today. PT-OP-D Balance Start: 04/16/18 08:24 Freq: Status: Active Protocol: Document 04/16/18 13:45 AMB (Rec: 04/17/18 16:03 AMB [email or web address]) Balance Tests Single Limb Standing Single Limb- Right 3 seconds Single Limb- Left pain limits PT-OP-F Manual Assessment Start: 04/16/18 08:24 Freq: Status: Active Protocol: Document 05/02/18 13:45 RCC (Rec: 05/02/18 14:26 RCC [email or web address]) Manual Assessments Soft Tissue Assessment Soft Tissue Mobility Assessment Mod tension L plantar fascia Joint Mobility Assessment Joint Mobility Assessment L great toe MTP joint stiffness PT-OP-G Mobility & Gait Start: 04/16/18 08:24 Freq: Status: Active Protocol: Document 04/16/18 13:45 AMB (Rec: 04/17/18 10:30 AMB [email or web address]) OP Gait Assessment Comments Gait Comments Pt ambulates with hiking boots , slight antalgic gait, but no assistive device. PT-OP-J Posture/Palpation/Skin Start: 04/16/18 08:24 Freq: Status: Active Protocol: Document 04/16/18 13:45 AMB (Rec: 04/17/18 10:30 AMB [email or web address]) Posture Evaluation Comments Posture Comments High arches PT-OP-K Range of Motion Start: 04/16/18 08:24 Freq: Status: Active Protocol: Document 04/16/18 13:45 AMB (Rec: 04/17/18 10:30 AMB [email or web address]) Ankle and Foot Goniometric Range of Motion Ankle and Foot Measured in Degrees Right Passive Testing Position Supine Dorsiflexion with Knee Extended 5 Plantarflexion 50 Inversion 35 Eversion 25 Left Passive Dorsiflexion with Knee Extended 5 Plantarflexion 50 Inversion 30 Eversion 25 Ankle and Foot ROM Limitations Comments missing 7 degrees dorsiflexion from neutral with knee extended PT-OP-M Strength Start: 04/16/18 08:24 Freq: Status: Active Protocol: Document 04/16/18 13:45 AMB (Rec: 04/17/18 16:01 AMB [email or web address]) Ankle/Foot Strength Ankle and Foot Manual Muscle Testing Right Dorsiflexion (L4) 5 Normal Plantarflexion (S1) 5 Normal Inversion 4+ Good+ Eversion (S1) 5 Normal Left Dorsiflexion (L4) 4 Good Plantarflexion (S1) 4 Good Inversion 3+ Fair+ Eversion (S1) 4 Good Toe Strength Toe Manual Muscle Testing Right Great Toe Flexion 5 Normal Comments toes 2-5 flexion 5/5 Left Great Toe Extension 4- Good- Comments toe flexion 2-5: 3/5 PT-OP-Q Treatments Start: 04/16/18 08:24 Freq: Status: Active Protocol: Document 05/02/18 13:45 RCC (Rec: 05/02/18 14:26 RCC [email or web address]) Manual Therapy Treatment Soft Tissue Mobilization 1 Mobilization Type Myofascial Release Intensity/Depth Superficial Body Position Supine Comments plantar fascia Joint Mobilizations L great toe Joint 1st MTP joint Direction AP, PA Grade III Body Position Supine Manual Techniques 1 Type passive stretching PT-OP-R Modalities Start: 04/16/18 08:24 Freq: Status: Active Protocol: Document 05/02/18 13:45 RCC (Rec: 05/02/18 14:26 RCC [email or web address]) Ultrasound Therapy Treatment Left Volar Foot Treatment Duration (minutes) 8 Patient Position Supine Coupling Medium Ultrasound Gel Frequency Setting (mHz) 1 Intensity Setting (w/cm2) 1.2 PT-OP-T Assessment and Plan Start: 04/16/18 08:24 Freq: Status: Active Protocol: Document 05/02/18 13:45 RCC (Rec: 05/02/18 14:29 RCC [email or web address]) Physical Therapy Assessment Assessment Summary Assessment Pt with stiffness in the L great toe with flexion and extension, likely due to no push-off of the L foot during gait for a prolonged amount of time. Pt only tolerated superficial manual therapy today, unable to participate in active exercises due to pain associated with colonoscopy yesterday and multiple biopsies. Physical Therapy Plan Frequency and Duration Frequency of Treatment 2x/Week Duration of Treatment 8 weeks Plan of Care Start Date 04/16/18 Plan of Care End Date 06/11/18 Next Visit Focus/Plan Next Note Type Treatment Note Next Visit Plan Progress balance and strengthening program and manual therapy as tolerated.
--- NOTE | 2018-05-06 15:41 | PT.OTN ---
Current Diagnoses Plantar fascial fibromatosis (05/06/18) Physical Therapy Treatment Note PT-OP-A Visit Information Start: 04/16/18 08:24 Freq: Status: Active Protocol: Document 05/06/18 13:00 AMB (Rec: 05/06/18 14:49 AMB [email or web address]) Out-Patient Physical Therapy Visit Information Visit Information Visit Type Treatment Note Visit Start Time 13:00 Visit Stop Time 13:45 Total Visit Minutes 45 Visit Number 7 Number of ATTIC FANS MECHANIC Visits 0 PT-OP-B Current Condition Start: 04/16/18 08:24 Freq: Status: Active Protocol: Document 04/16/18 13:45 AMB (Rec: 04/17/18 08:15 AMB [email or web address]) Current Condition History of Current Condition Onset Date September 2017 Current Complaints Left heel pain/ tightness History of Current Condition The patient reports that in September he fell onto his left foot from a 3 foot height. He kept hiking and backpacking until December, when the pain got really bad and he had to stop. Per his report he intially had a few small stress fractures, but those are now healed. He was given a boot and has been weaning off of it, and now just uses it as needed with pain. 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 He used to be on extensive opiates for the pain from being unable to have graft surgery on the left, but has been trained in hypnotic pain relief for this. He does use opiates for the pancreatic pain. PT-OP-C Subjective Start: 04/16/18 08:24 Freq: Status: Active Protocol: Document 05/06/18 13:00 AMB (Rec: 05/06/18 14:49 AMB [email or web address]) OP-PT Subjective Patient Comments Patient Comments Pt is feeling better from colonoscopy. Tried wearing trail running shoes. PT-OP-D Balance Start: 04/16/18 08:24 Freq: Status: Active Protocol: Document 04/16/18 13:45 AMB (Rec: 04/17/18 16:03 AMB [email or web address]) Balance Tests Single Limb Standing Single Limb- Right 3 seconds Single Limb- Left pain limits PT-OP-F Manual Assessment Start: 04/16/18 08:24 Freq: Status: Active Protocol: Document 05/02/18 13:45 RCC (Rec: 05/02/18 14:26 RCC [email or web address]) Manual Assessments Soft Tissue Assessment Soft Tissue Mobility Assessment Mod tension L plantar fascia Joint Mobility Assessment Joint Mobility Assessment L great toe MTP joint stiffness PT-OP-G Mobility & Gait Start: 04/16/18 08:24 Freq: Status: Active Protocol: Document 04/16/18 13:45 AMB (Rec: 04/17/18 10:30 AMB [email or web address]) OP Gait Assessment Comments Gait Comments Pt ambulates with hiking boots , slight antalgic gait, but no assistive device. PT-OP-J Posture/Palpation/Skin Start: 04/16/18 08:24 Freq: Status: Active Protocol: Document 04/16/18 13:45 AMB (Rec: 04/17/18 10:30 AMB [email or web address]) Posture Evaluation Comments Posture Comments High arches PT-OP-K Range of Motion Start: 04/16/18 08:24 Freq: Status: Active Protocol: Document 04/16/18 13:45 AMB (Rec: 04/17/18 10:30 AMB [email or web address]) Ankle and Foot Goniometric Range of Motion Ankle and Foot Measured in Degrees Right Passive Testing Position Supine Dorsiflexion with Knee Extended 5 Plantarflexion 50 Inversion 35 Eversion 25 Left Passive Dorsiflexion with Knee Extended 5 Plantarflexion 50 Inversion 30 Eversion 25 Ankle and Foot ROM Limitations Comments missing 7 degrees dorsiflexion from neutral with knee extended PT-OP-M Strength Start: 04/16/18 08:24 Freq: Status: Active Protocol: Document 04/16/18 13:45 AMB (Rec: 04/17/18 16:01 AMB [email or web address]) Ankle/Foot Strength Ankle and Foot Manual Muscle Testing Right Dorsiflexion (L4) 5 Normal Plantarflexion (S1) 5 Normal Inversion 4+ Good+ Eversion (S1) 5 Normal Left Dorsiflexion (L4) 4 Good Plantarflexion (S1) 4 Good Inversion 3+ Fair+ Eversion (S1) 4 Good Toe Strength Toe Manual Muscle Testing Right Great Toe Flexion 5 Normal Comments toes 2-5 flexion 5/5 Left Great Toe Extension 4- Good- Comments toe flexion 2-5: 3/5 PT-OP-Q Treatments Start: 04/16/18 08:24 Freq: Status: Active Protocol: Document 05/06/18 13:00 AMB (Rec: 05/06/18 15:40 AMB [email or web address]) Gym Equipment Shuttle Balance 1 Details RED Comments WBOS/NBOS Eyes open focus on ankle response Therapeutic Exercises Supine Exercises 3 Supine Exercise Name t-band ankle 3 way Equipment Used #3 t band Comments pf, inv, sascha Standing Exercises 1 Standing Exercise Name calf stretch Comments seated with belt Manual Therapy Treatment Soft Tissue Mobilization 1 Mobilization Type Myofascial Release Intensity/Depth Superficial Body Position Supine Comments plantar fascia Joint Mobilizations L great toe Joint 1st MTP joint Direction AP, PA Grade III Body Position Supine Comments traction PT-OP-R Modalities Start: 04/16/18 08:24 Freq: Status: Active Protocol: Document 05/06/18 13:00 AMB (Rec: 05/06/18 15:40 AMB [email or web address]) Hot Pack/Cold Pack Treatment Cold Pack Location L foot Patient Position Supine Treatment Duration (minutes) 10 Ultrasound Therapy Treatment Left Volar Foot Treatment Duration (minutes) 8 Patient Position Supine Coupling Medium Ultrasound Gel Frequency Setting (mHz) 1 Intensity Setting (w/cm2) 1.2 PT-OP-T Assessment and Plan Start: 04/16/18 08:24 Freq: Status: Active Protocol: Document 05/06/18 13:00 AMB (Rec: 05/06/18 15:40 AMB [email or web address]) Physical Therapy Assessment Assessment Summary Assessment Pt had good tolerance of traction, continues to have point tenderness to fascia. Physical Therapy Plan Frequency and Duration Frequency of Treatment 2x/Week Duration of Treatment 8 weeks Plan of Care Start Date 04/16/18 Plan of Care End Date 06/11/18 Next Visit Focus/Plan Next Note Type Treatment Note Next Visit Plan Progress balance and strengthening program and manual therapy as tolerated.
--- NOTE | 2018-05-09 15:39 | PT.OTN ---
Current Diagnoses Plantar fascial fibromatosis (05/09/18) Physical Therapy Treatment Note PT-OP-A Visit Information Start: 04/16/18 08:24 Freq: Status: Active Protocol: Document 05/09/18 14:30 AMB (Rec: 05/09/18 15:38 AMB [id number]) Out-Patient Physical Therapy Visit Information Visit Information Visit Type Treatment Note Visit Start Time 13:00 Visit Stop Time 13:45 Total Visit Minutes 45 Visit Number 8 Number of HARDWARE ENGINEER Visits 0 PT-OP-B Current Condition Start: 04/16/18 08:24 Freq: Status: Active Protocol: Document 04/16/18 13:45 AMB (Rec: 04/17/18 08:15 AMB [email or web address]) Current Condition History of Current Condition Onset Date September 2017 Current Complaints Left heel pain/ tightness History of Current Condition The patient reports that in September he fell onto his left foot from a 3 foot height. He kept hiking and backpacking until December, when the pain got really bad and he had to stop. Per his report he intially had a few small stress fractures, but those are now healed. He was given a boot and has been weaning off of it, and now just uses it as needed with pain. 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 He used to be on extensive opiates for the pain from being unable to have graft surgery on the left, but has been trained in hypnotic pain relief for this. He does use opiates for the pancreatic pain. PT-OP-C Subjective Start: 04/16/18 08:24 Freq: Status: Active Protocol: Document 05/09/18 14:30 AMB (Rec: 05/09/18 15:38 AMB [id number]) OP-PT Subjective Patient Comments Patient Comments Pt overall feeling better, pain is over heel but not as much into the arch. Tried not wearing night splint last night and that went ok. PT-OP-D Balance Start: 04/16/18 08:24 Freq: Status: Active Protocol: Document 04/16/18 13:45 AMB (Rec: 04/17/18 16:03 AMB [email or web address]) Balance Tests Single Limb Standing Single Limb- Right 3 seconds Single Limb- Left pain limits PT-OP-F Manual Assessment Start: 04/16/18 08:24 Freq: Status: Active Protocol: Document 05/02/18 13:45 RCC (Rec: 05/02/18 14:26 RCC [email or web address]) Manual Assessments Soft Tissue Assessment Soft Tissue Mobility Assessment Mod tension L plantar fascia Joint Mobility Assessment Joint Mobility Assessment L great toe MTP joint stiffness PT-OP-G Mobility & Gait Start: 04/16/18 08:24 Freq: Status: Active Protocol: Document 04/16/18 13:45 AMB (Rec: 04/17/18 10:30 AMB [email or web address]) OP Gait Assessment Comments Gait Comments Pt ambulates with hiking boots , slight antalgic gait, but no assistive device. PT-OP-J Posture/Palpation/Skin Start: 04/16/18 08:24 Freq: Status: Active Protocol: Document 04/16/18 13:45 AMB (Rec: 04/17/18 10:30 AMB [email or web address]) Posture Evaluation Comments Posture Comments High arches PT-OP-K Range of Motion Start: 04/16/18 08:24 Freq: Status: Active Protocol: Document 04/16/18 13:45 AMB (Rec: 04/17/18 10:30 AMB [email or web address]) Ankle and Foot Goniometric Range of Motion Ankle and Foot Measured in Degrees Right Passive Testing Position Supine Dorsiflexion with Knee Extended 5 Plantarflexion 50 Inversion 35 Eversion 25 Left Passive Dorsiflexion with Knee Extended 5 Plantarflexion 50 Inversion 30 Eversion 25 Ankle and Foot ROM Limitations Comments missing 7 degrees dorsiflexion from neutral with knee extended PT-OP-M Strength Start: 04/16/18 08:24 Freq: Status: Active Protocol: Document 04/16/18 13:45 AMB (Rec: 04/17/18 16:01 AMB [email or web address]) Ankle/Foot Strength Ankle and Foot Manual Muscle Testing Right Dorsiflexion (L4) 5 Normal Plantarflexion (S1) 5 Normal Inversion 4+ Good+ Eversion (S1) 5 Normal Left Dorsiflexion (L4) 4 Good Plantarflexion (S1) 4 Good Inversion 3+ Fair+ Eversion (S1) 4 Good Toe Strength Toe Manual Muscle Testing Right Great Toe Flexion 5 Normal Comments toes 2-5 flexion 5/5 Left Great Toe Extension 4- Good- Comments toe flexion 2-5: 3/5 PT-OP-Q Treatments Start: 04/16/18 08:24 Freq: Status: Active Protocol: Document 05/09/18 14:30 AMB (Rec: 05/09/18 15:38 AMB [id number]) Gym Equipment Shuttle Balance 1 Details RED Comments WBOS/NBOS Eyes open focus on ankle response Therapeutic Exercises Standing Exercises 3 Standing Exercise Name downward dog Reps/Minutes 30x2 2 Standing Exercise Name on JOSE Manual Therapy Treatment Soft Tissue Mobilization 1 Mobilization Type Myofascial Release Intensity/Depth Superficial Body Position Supine Comments plantar fascia Joint Mobilizations L great toe Joint 1st MTP joint Direction AP, PA Grade III Body Position Supine Comments traction PT-OP-R Modalities Start: 04/16/18 08:24 Freq: Status: Active Protocol: Document 05/09/18 14:30 AMB (Rec: 05/09/18 15:38 AMB [id number]) Ultrasound Therapy Treatment Left Volar Foot Treatment Duration (minutes) 8 Patient Position Supine Coupling Medium Ultrasound Gel Frequency Setting (mHz) 1 Intensity Setting (w/cm2) 1.2 PT-OP-T Assessment and Plan Start: 04/16/18 08:24 Freq: Status: Active Protocol: Document 05/09/18 14:30 AMB (Rec: 05/09/18 15:38 AMB [id number]) Physical Therapy Assessment Assessment Summary Assessment Pt continues to have painful scar tissue in plantar fascia with palpation, but function is improving. Physical Therapy Plan Next Visit Focus/Plan Next Note Type Treatment Note Next Visit Plan Progress balance and strengthening program and manual therapy as tolerated.
--- NOTE | 2018-05-15 11:37 | PT.OTN ---
Current Diagnoses Plantar fascial fibromatosis (05/14/18) Physical Therapy Treatment Note PT-OP-A Visit Information Start: 04/16/18 08:24 Freq: Status: Active Protocol: Document 05/14/18 14:30 AMB (Rec: 05/15/18 11:37 AMB [email or web address]) Out-Patient Physical Therapy Visit Information Visit Information Visit Type Treatment Note Visit Start Time 14:30 Visit Stop Time 15:15 Total Visit Minutes 45 Visit Number 9 Number of FEATURES EDITOR Visits 0 PT-OP-B Current Condition Start: 04/16/18 08:24 Freq: Status: Active Protocol: Document 04/16/18 13:45 AMB (Rec: 04/17/18 08:15 AMB [email or web address]) Current Condition History of Current Condition Onset Date September 2017 Current Complaints Left heel pain/ tightness History of Current Condition The patient reports that in September he fell onto his left foot from a 3 foot height. He kept hiking and backpacking until December, when the pain got really bad and he had to stop. Per his report he intially had a few small stress fractures, but those are now healed. He was given a boot and has been weaning off of it, and now just uses it as needed with pain. Personal Factors Other Personal Factors That May Effect Pt has Agent [place] exposure Therapy/Recovery that he states has caused bilateral lower and upper extremity neuropathy, and pancreatic insufficiency that has caused him to go to the ER 8 times in the last year. 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 He used to be on extensive opiates for the pain from being unable to have graft surgery on the left, but has been trained in hypnotic pain relief for this. He does use opiates for the pancreatic pain. PT-OP-C Subjective Start: 04/16/18 08:24 Freq: Status: Active Protocol: Document 05/14/18 14:30 AMB (Rec: 05/15/18 11:37 AMB [email or web address]) OP-PT Subjective Patient Comments Patient Comments Pt wears trail running shoes today instead of boots, and is in more pain. PT-OP-D Balance Start: 04/16/18 08:24 Freq: Status: Active Protocol: Document 04/16/18 13:45 AMB (Rec: 04/17/18 16:03 AMB [email or web address]) Balance Tests Single Limb Standing Single Limb- Right 3 seconds Single Limb- Left pain limits PT-OP-F Manual Assessment Start: 04/16/18 08:24 Freq: Status: Active Protocol: Document 05/02/18 13:45 RCC (Rec: 05/02/18 14:26 RCC [email or web address]) Manual Assessments Soft Tissue Assessment Soft Tissue Mobility Assessment Mod tension L plantar fascia Joint Mobility Assessment Joint Mobility Assessment L great toe MTP joint stiffness PT-OP-G Mobility & Gait Start: 04/16/18 08:24 Freq: Status: Active Protocol: Document 04/16/18 13:45 AMB (Rec: 04/17/18 10:30 AMB [email or web address]) OP Gait Assessment Comments Gait Comments Pt ambulates with hiking boots , slight antalgic gait, but no assistive device. PT-OP-J Posture/Palpation/Skin Start: 04/16/18 08:24 Freq: Status: Active Protocol: Document 04/16/18 13:45 AMB (Rec: 04/17/18 10:30 AMB [email or web address]) Posture Evaluation Comments Posture Comments High arches PT-OP-K Range of Motion Start: 04/16/18 08:24 Freq: Status: Active Protocol: Document 04/16/18 13:45 AMB (Rec: 04/17/18 10:30 AMB [email or web address]) Ankle and Foot Goniometric Range of Motion Ankle and Foot Measured in Degrees Right Passive Testing Position Supine Dorsiflexion with Knee Extended 5 Plantarflexion 50 Inversion 35 Eversion 25 Left Passive Dorsiflexion with Knee Extended 5 Plantarflexion 50 Inversion 30 Eversion 25 Ankle and Foot ROM Limitations Comments missing 7 degrees dorsiflexion from neutral with knee extended PT-OP-M Strength Start: 04/16/18 08:24 Freq: Status: Active Protocol: Document 04/16/18 13:45 AMB (Rec: 04/17/18 16:01 AMB [email or web address]) Ankle/Foot Strength Ankle and Foot Manual Muscle Testing Right Dorsiflexion (L4) 5 Normal Plantarflexion (S1) 5 Normal Inversion 4+ Good+ Eversion (S1) 5 Normal Left Dorsiflexion (L4) 4 Good Plantarflexion (S1) 4 Good Inversion 3+ Fair+ Eversion (S1) 4 Good Toe Strength Toe Manual Muscle Testing Right Great Toe Flexion 5 Normal Comments toes 2-5 flexion 5/5 Left Great Toe Extension 4- Good- Comments toe flexion 2-5: 3/5 PT-OP-Q Treatments Start: 04/16/18 08:24 Freq: Status: Active Protocol: Document 05/14/18 14:30 AMB (Rec: 05/15/18 11:37 AMB [email or web address]) Therapeutic Exercises Supine Exercises 4 Supine Exercise Name toe flexion Comments manual resistance Standing Exercises 2 Standing Exercise Name on JOSE Manual Therapy Treatment Soft Tissue Mobilization 1 Mobilization Type Myofascial Release Intensity/Depth Superficial Body Position Supine Comments plantar fascia Joint Mobilizations L great toe Joint 1st MTP joint Direction AP, PA Grade III Body Position Supine Comments traction Manual Techniques 1 Type passive stretching PT-OP-R Modalities Start: 04/16/18 08:24 Freq: Status: Active Protocol: Document 05/14/18 14:30 AMB (Rec: 05/15/18 11:37 AMB [email or web address]) Ultrasound Therapy Treatment Left Volar Foot Treatment Duration (minutes) 8 Patient Position Supine Coupling Medium Ultrasound Gel Frequency Setting (mHz) 1 Intensity Setting (w/cm2) 1.2 PT-OP-T Assessment and Plan Start: 04/16/18 08:24 Freq: Status: Active Protocol: Document 05/14/18 14:30 AMB (Rec: 05/15/18 11:37 AMB [email or web address]) Physical Therapy Assessment Assessment Summary Assessment Pt tolerated wearing less supportive shoes while in the house, but was painful today when he had been wearing less supportive shoes all day. Would suggest continued supportive shoe wear when walking outside. Neuropathy continues to be a limiting factor with manual therapy. Physical Therapy Plan Next Visit Focus/Plan Next Note Type Treatment Note Next Visit Plan Progress balance and strengthening program and manual therapy as tolerated.
--- NOTE | 2018-05-16 09:46 | PT.OTN ---
Current Diagnoses Plantar fascial fibromatosis (05/16/18) Physical Therapy Treatment Note PT-OP-A Visit Information Start: 04/16/18 08:24 Freq: Status: Active Protocol: Document 05/16/18 08:15 AMB (Rec: 05/16/18 09:46 AMB [email or web address]) Out-Patient Physical Therapy Visit Information Visit Information Visit Type Treatment Note Visit Start Time 08:15 Visit Stop Time 09:00 Total Visit Minutes 45 Visit Number 10 Number of PAINT CREW SUPERVISOR Visits 0 PT-OP-B Current Condition Start: 04/16/18 08:24 Freq: Status: Active Protocol: Document 04/16/18 13:45 AMB (Rec: 04/17/18 08:15 AMB [email or web address]) Current Condition History of Current Condition Onset Date September 2017 Current Complaints Left heel pain/ tightness History of Current Condition The patient reports that in September he fell onto his left foot from a 3 foot height. He kept hiking and backpacking until December, when the pain got really bad and he had to stop. Per his report he intially had a few small stress fractures, but those are now healed. He was given a boot and has been weaning off of it, and now just uses it as needed with pain. 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 He used to be on extensive opiates for the pain from being unable to have graft surgery on the left, but has been trained in hypnotic pain relief for this. He does use opiates for the pancreatic pain. PT-OP-C Subjective Start: 04/16/18 08:24 Freq: Status: Active Protocol: Document 05/16/18 08:15 AMB (Rec: 05/16/18 09:46 AMB [email or web address]) OP-PT Subjective Patient Comments Patient Comments Pt wearing boots today, states will be wearing those outside the house, and trail running shoes inside the house for now . A little sore this morning. PT-OP-D Balance Start: 04/16/18 08:24 Freq: Status: Active Protocol: Document 04/16/18 13:45 AMB (Rec: 04/17/18 16:03 AMB [email or web address]) Balance Tests Single Limb Standing Single Limb- Right 3 seconds Single Limb- Left pain limits PT-OP-F Manual Assessment Start: 04/16/18 08:24 Freq: Status: Active Protocol: Document 05/02/18 13:45 RCC (Rec: 05/02/18 14:26 RCC [email or web address]) Manual Assessments Soft Tissue Assessment Soft Tissue Mobility Assessment Mod tension L plantar fascia Joint Mobility Assessment Joint Mobility Assessment L great toe MTP joint stiffness PT-OP-G Mobility & Gait Start: 04/16/18 08:24 Freq: Status: Active Protocol: Document 04/16/18 13:45 AMB (Rec: 04/17/18 10:30 AMB [email or web address]) OP Gait Assessment Comments Gait Comments Pt ambulates with hiking boots , slight antalgic gait, but no assistive device. PT-OP-J Posture/Palpation/Skin Start: 04/16/18 08:24 Freq: Status: Active Protocol: Document 04/16/18 13:45 AMB (Rec: 04/17/18 10:30 AMB [email or web address]) Posture Evaluation Comments Posture Comments High arches PT-OP-K Range of Motion Start: 04/16/18 08:24 Freq: Status: Active Protocol: Document 04/16/18 13:45 AMB (Rec: 04/17/18 10:30 AMB [email or web address]) Ankle and Foot Goniometric Range of Motion Ankle and Foot Measured in Degrees Right Passive Testing Position Supine Dorsiflexion with Knee Extended 5 Plantarflexion 50 Inversion 35 Eversion 25 Left Passive Dorsiflexion with Knee Extended 5 Plantarflexion 50 Inversion 30 Eversion 25 Ankle and Foot ROM Limitations Comments missing 7 degrees dorsiflexion from neutral with knee extended PT-OP-M Strength Start: 04/16/18 08:24 Freq: Status: Active Protocol: Document 04/16/18 13:45 AMB (Rec: 04/17/18 16:01 AMB [email or web address]) Ankle/Foot Strength Ankle and Foot Manual Muscle Testing Right Dorsiflexion (L4) 5 Normal Plantarflexion (S1) 5 Normal Inversion 4+ Good+ Eversion (S1) 5 Normal Left Dorsiflexion (L4) 4 Good Plantarflexion (S1) 4 Good Inversion 3+ Fair+ Eversion (S1) 4 Good Toe Strength Toe Manual Muscle Testing Right Great Toe Flexion 5 Normal Comments toes 2-5 flexion 5/5 Left Great Toe Extension 4- Good- Comments toe flexion 2-5: 3/5 PT-OP-Q Treatments Start: 04/16/18 08:24 Freq: Status: Active Protocol: Document 05/16/18 08:15 AMB (Rec: 05/16/18 09:46 AMB [email or web address]) Gym Equipment Shuttle Balance 1 Details RED Comments WBOS/NBOS Eyes open focus on ankle response. m/l and a/p Therapeutic Exercises Supine Exercises 4 Supine Exercise Name toe flexion Comments manual resistance 3 Supine Exercise Name t-band ankle 3 way Equipment Used #3 t band Comments pf, inv, sascha Standing Exercises 4 Standing Exercise Name heel raises Reps/Minutes 2x10 Comments on stair 2 Standing Exercise Name on JOSE Manual Therapy Treatment Soft Tissue Mobilization 1 Mobilization Type Myofascial Release Intensity/Depth Superficial Body Position Supine Comments plantar fascia Joint Mobilizations L great toe Joint 1st MTP joint Direction AP, PA Grade III Body Position Supine Comments traction PT-OP-R Modalities Start: 04/16/18 08:24 Freq: Status: Active Protocol: Document 05/16/18 08:15 AMB (Rec: 05/16/18 09:46 AMB [email or web address]) Hot Pack/Cold Pack Treatment Cold Pack Location L foot Patient Position Supine Treatment Duration (minutes) 10 Ultrasound Therapy Treatment Left Volar Foot Treatment Duration (minutes) 8 Patient Position Supine Coupling Medium Ultrasound Gel Frequency Setting (mHz) 1 Intensity Setting (w/cm2) 1.2 PT-OP-T Assessment and Plan Start: 04/16/18 08:24 Freq: Status: Active Protocol: Document 05/16/18 08:15 AMB (Rec: 05/16/18 09:46 AMB [email or web address]) Physical Therapy Assessment Goals Three Impairment Hiking Short Term Goal (STG) The patient will ambulate over smooth surfaces with good shoes for 30 minutes with foot pain of 4/10 or less. STG Duration 4 weeks Horse Stud Manager Goal (LTG) The patient will hike for 30 minutes with a 20# pack with pain of 4/10 or less. LTG Duration 8 weeks Two Impairment Range of motion Short Term Goal (STG) Ankle dorsiflexion to 10 degrees bilaterally. STG Duration 4 weeks One Impairment Strength Short Term Goal (STG) Increase toe strength in all planes to 4+/5 STG Duration 4 weeks Assessment Summary Assessment Pt continues to have painful scar tissue but, tolerated self mobilization with tennis ball well. Physical Therapy Plan Frequency and Duration Frequency of Treatment 2x/Week Duration of Treatment 8 weeks Plan of Care Start Date 04/16/18 Plan of Care End Date 06/11/18 Next Visit Focus/Plan Next Note Type Treatment Note Next Visit Plan Progress balance and strengthening program and manual therapy as tolerated.
--- NOTE | 2018-05-31 15:40 | PT.OTN ---
Current Diagnoses Plantar fascial fibromatosis (05/31/18) Physical Therapy Treatment Note PT-OP-A Visit Information Start: 04/16/18 08:24 Freq: Status: Active Protocol: Document 05/31/18 15:30 SA (Rec: 05/31/18 15:39 SA [email or web address]) Out-Patient Physical Therapy Visit Information Visit Information Visit Type Treatment Note Visit Start Time 13:05 Visit Stop Time 13:55 Total Visit Minutes 50 Visit Number 11 Number of HYDRAULIC OPERATOR Visits 1 PT-OP-B Current Condition Start: 04/16/18 08:24 Freq: Status: Active Protocol: Document 04/16/18 13:45 AMB (Rec: 04/17/18 08:15 AMB [email or web address]) Current Condition History of Current Condition Onset Date September 2017 Current Complaints Left heel pain/ tightness History of Current Condition The patient reports that in September he fell onto his left foot from a 3 foot height. He kept hiking and backpacking until December, when the pain got really bad and he had to stop. Per his report he intially had a few small stress fractures, but those are now healed. He was given a boot and has been weaning off of it, and now just uses it as needed with pain. 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 He used to be on extensive opiates for the pain from being unable to have graft surgery on the left, but has been trained in hypnotic pain relief for this. He does use opiates for the pancreatic pain. PT-OP-C Subjective Start: 04/16/18 08:24 Freq: Status: Active Protocol: Document 05/31/18 15:30 SA (Rec: 05/31/18 15:39 SA [email or web address]) OP-PT Subjective Patient Comments Patient Comments Pt reports decreasing symptoms , wearing supportive shoes at home as well as out. Says tennis ball self MFR is helping. PT-OP-D Balance Start: 04/16/18 08:24 Freq: Status: Active Protocol: Document 04/16/18 13:45 AMB (Rec: 04/17/18 16:03 AMB [email or web address]) Balance Tests Single Limb Standing Single Limb- Right 3 seconds Single Limb- Left pain limits PT-OP-F Manual Assessment Start: 04/16/18 08:24 Freq: Status: Active Protocol: Document 05/02/18 13:45 RCC (Rec: 05/02/18 14:26 RCC [email or web address]) Manual Assessments Soft Tissue Assessment Soft Tissue Mobility Assessment Mod tension L plantar fascia Joint Mobility Assessment Joint Mobility Assessment L great toe MTP joint stiffness PT-OP-G Mobility & Gait Start: 04/16/18 08:24 Freq: Status: Active Protocol: Document 04/16/18 13:45 AMB (Rec: 04/17/18 10:30 AMB [email or web address]) OP Gait Assessment Comments Gait Comments Pt ambulates with hiking boots , slight antalgic gait, but no assistive device. PT-OP-J Posture/Palpation/Skin Start: 04/16/18 08:24 Freq: Status: Active Protocol: Document 04/16/18 13:45 AMB (Rec: 04/17/18 10:30 AMB [email or web address]) Posture Evaluation Comments Posture Comments High arches PT-OP-K Range of Motion Start: 04/16/18 08:24 Freq: Status: Active Protocol: Document 04/16/18 13:45 AMB (Rec: 04/17/18 10:30 AMB [email or web address]) Ankle and Foot Goniometric Range of Motion Ankle and Foot Measured in Degrees Right Passive Testing Position Supine Dorsiflexion with Knee Extended 5 Plantarflexion 50 Inversion 35 Eversion 25 Left Passive Dorsiflexion with Knee Extended 5 Plantarflexion 50 Inversion 30 Eversion 25 Ankle and Foot ROM Limitations Comments missing 7 degrees dorsiflexion from neutral with knee extended PT-OP-M Strength Start: 04/16/18 08:24 Freq: Status: Active Protocol: Document 04/16/18 13:45 AMB (Rec: 04/17/18 16:01 AMB [email or web address]) Ankle/Foot Strength Ankle and Foot Manual Muscle Testing Right Dorsiflexion (L4) 5 Normal Plantarflexion (S1) 5 Normal Inversion 4+ Good+ Eversion (S1) 5 Normal Left Dorsiflexion (L4) 4 Good Plantarflexion (S1) 4 Good Inversion 3+ Fair+ Eversion (S1) 4 Good Toe Strength Toe Manual Muscle Testing Right Great Toe Flexion 5 Normal Comments toes 2-5 flexion 5/5 Left Great Toe Extension 4- Good- Comments toe flexion 2-5: 3/5 PT-OP-Q Treatments Start: 04/16/18 08:24 Freq: Status: Active Protocol: Document 05/31/18 15:30 SA (Rec: 05/31/18 15:39 [email or web address]) Gym Equipment Shuttle Balance 1 Details RED Reps/Duration 6 min Comments WBOS/NBOS Eyes open focus on ankle response. m/l and a/p, added ball rebounder toss Therapeutic Exercises Supine Exercises 4 Supine Exercise Name toe flexion Comments manual resistance 3 Supine Exercise Name t-band ankle 3 way Equipment Used #3 t band Comments pf, inv, sascha Standing Exercises 4 Standing Exercise Name heel raises Reps/Minutes 2x10 Comments on stair 2 Standing Exercise Name on JOSE Resistance calf stretch Manual Therapy Treatment Soft Tissue Mobilization 1 Mobilization Type Myofascial Release Intensity/Depth Superficial Body Position Supine Comments plantar fascia Joint Mobilizations L great toe Joint 1st MTP joint Direction AP, PA Grade III Body Position Supine Comments traction PT-OP-R Modalities Start: 04/16/18 08:24 Freq: Status: Active Protocol: Document 05/31/18 15:30 SA (Rec: 05/31/18 15:39 [email or web address]) Hot Pack/Cold Pack Treatment Cold Pack Location L foot Patient Position Supine Treatment Duration (minutes) 10 Ultrasound Therapy Treatment Left Volar Foot Treatment Duration (minutes) 8 Patient Position Supine Coupling Medium Ultrasound Gel Frequency Setting (mHz) 1 Intensity Setting (w/cm2) 1.2 PT-OP-T Assessment and Plan Start: 04/16/18 08:24 Freq: Status: Active Protocol: Document 05/31/18 15:30 SA (Rec: 05/31/18 15:39 [email or web address]) Physical Therapy Assessment Assessment Summary Assessment Pt using tennis ball at home for self MFR with good results , still has tender spot at medial heel. Noted balance improvement on Shuttle board. Physical Therapy Plan Next Visit Focus/Plan Next Note Type Treatment Note Next Visit Plan Progress balance and strengthening program and manual therapy as tolerated.
--- NOTE | 2018-06-04 17:13 | PT.OTN ---
Current Diagnoses Plantar fascial fibromatosis (06/04/18) Physical Therapy Treatment Note PT-OP-A Visit Information Start: 04/16/18 08:24 Freq: Status: Active Protocol: Document 06/04/18 17:07 GGD (Rec: 06/04/18 17:12 GGD [email or web address]) Out-Patient Physical Therapy Visit Information Visit Information Visit Type Treatment Note Visit Start Time 16:00 Visit Stop Time 16:45 Total Visit Minutes 45 Visit Number 12 Number of MECHANICAL LABORATORY TECHNICIAN Visits 2 Evaluation Information Evaluation Date 04/16/18 PT-OP-B Current Condition Start: 04/16/18 08:24 Freq: Status: Active Protocol: Document 04/16/18 13:45 AMB (Rec: 04/17/18 08:15 AMB [email or web address]) Current Condition History of Current Condition Onset Date September 2017 Current Complaints Left heel pain/ tightness History of Current Condition The patient reports that in September he fell onto his left foot from a 3 foot height. He kept hiking and backpacking until December, when the pain got really bad and he had to stop. Per his report he intially had a few small stress fractures, but those are now healed. He was given a boot and has been weaning off of it, and now just uses it as needed with pain. Personal Factors Other Personal Factors That May Effect Pt has Agent [place] exposure Therapy/Recovery that he states has caused bilateral lower and upper extremity neuropathy, and pancreatic insufficiency that has caused him to go to the ER 8 times in the last year. 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 He used to be on extensive opiates for the pain from being unable to have graft surgery on the left, but has been trained in hypnotic pain relief for this. He does use opiates for the pancreatic pain. PT-OP-C Subjective Start: 04/16/18 08:24 Freq: Status: Active Protocol: Document 06/04/18 17:07 GGD (Rec: 06/04/18 17:12 GGD [email or web address]) OP-PT Subjective Patient Comments Patient Comments Pt states he is wearing boots without increase in pain, but does with trail shoes. PT-OP-D Balance Start: 04/16/18 08:24 Freq: Status: Active Protocol: Document 04/16/18 13:45 AMB (Rec: 04/17/18 16:03 AMB [email or web address]) Balance Tests Single Limb Standing Single Limb- Right 3 seconds Single Limb- Left pain limits PT-OP-F Manual Assessment Start: 04/16/18 08:24 Freq: Status: Active Protocol: Document 05/02/18 13:45 RCC (Rec: 05/02/18 14:26 RCC [email or web address]) Manual Assessments Soft Tissue Assessment Soft Tissue Mobility Assessment Mod tension L plantar fascia Joint Mobility Assessment Joint Mobility Assessment L great toe MTP joint stiffness PT-OP-G Mobility & Gait Start: 04/16/18 08:24 Freq: Status: Active Protocol: Document 04/16/18 13:45 AMB (Rec: 04/17/18 10:30 AMB [email or web address]) OP Gait Assessment Comments Gait Comments Pt ambulates with hiking boots , slight antalgic gait, but no assistive device. PT-OP-J Posture/Palpation/Skin Start: 04/16/18 08:24 Freq: Status: Active Protocol: Document 04/16/18 13:45 AMB (Rec: 04/17/18 10:30 AMB [email or web address]) Posture Evaluation Comments Posture Comments High arches PT-OP-K Range of Motion Start: 04/16/18 08:24 Freq: Status: Active Protocol: Document 04/16/18 13:45 AMB (Rec: 04/17/18 10:30 AMB [email or web address]) Ankle and Foot Goniometric Range of Motion Ankle and Foot Measured in Degrees Right Passive Testing Position Supine Dorsiflexion with Knee Extended 5 Plantarflexion 50 Inversion 35 Eversion 25 Left Passive Dorsiflexion with Knee Extended 5 Plantarflexion 50 Inversion 30 Eversion 25 Ankle and Foot ROM Limitations Comments missing 7 degrees dorsiflexion from neutral with knee extended PT-OP-M Strength Start: 04/16/18 08:24 Freq: Status: Active Protocol: Document 04/16/18 13:45 AMB (Rec: 04/17/18 16:01 AMB [email or web address]) Ankle/Foot Strength Ankle and Foot Manual Muscle Testing Right Dorsiflexion (L4) 5 Normal Plantarflexion (S1) 5 Normal Inversion 4+ Good+ Eversion (S1) 5 Normal Left Dorsiflexion (L4) 4 Good Plantarflexion (S1) 4 Good Inversion 3+ Fair+ Eversion (S1) 4 Good Toe Strength Toe Manual Muscle Testing Right Great Toe Flexion 5 Normal Comments toes 2-5 flexion 5/5 Left Great Toe Extension 4- Good- Comments toe flexion 2-5: 3/5 PT-OP-Q Treatments Start: 04/16/18 08:24 Freq: Status: Active Protocol: Document 06/04/18 17:07 GGD (Rec: 06/04/18 17:12 GGD [email or web address]) Gym Equipment Shuttle Balance 1 Details RED Reps/Duration 6 min Comments WBOS/NBOS Eyes open focus on ankle response. m/l and a/p, added ball rebounder toss Therapeutic Exercises Supine Exercises 4 Supine Exercise Name toe flexion Comments manual resistance Standing Exercises 4 Standing Exercise Name heel raises Reps/Minutes 2x10 Comments on stair 2 Standing Exercise Name on JOSE Resistance calf stretch Manual Therapy Treatment Soft Tissue Mobilization 1 Mobilization Type Myofascial Release Intensity/Depth Superficial Body Position Supine Comments plantar fascia Joint Mobilizations L great toe Joint 1st MTP joint Direction AP, PA Grade III Body Position Supine Comments traction PT-OP-R Modalities Start: 04/16/18 08:24 Freq: Status: Active Protocol: Document 06/04/18 17:07 GGD (Rec: 06/04/18 17:12 GGD [email or web address]) Ultrasound Therapy Treatment Left Volar Foot Treatment Duration (minutes) 8 Patient Position Supine Coupling Medium Ultrasound Gel Frequency Setting (mHz) 1 Intensity Setting (w/cm2) 1.2 PT-OP-T Assessment and Plan Start: 04/16/18 08:24 Freq: Status: Active Protocol: Document 06/04/18 17:07 GGD (Rec: 06/04/18 17:12 GGD [email or web address]) Physical Therapy Assessment Assessment Summary Assessment Pt very tender with STM. He improving with balance on shuttle balance. He is doing self mobilization at home. Physical Therapy Plan Frequency and Duration Frequency of Treatment 2x/Week Duration of Treatment 8 weeks Plan of Care Start Date 04/16/18 Plan of Care End Date 06/11/18 Next Visit Focus/Plan Next Note Type Treatment Note Next Visit Plan Progress balance and strengthening program and manual therapy as tolerated.
--- NOTE | 2018-06-07 16:20 | PT.OTN ---
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) Physical Therapy Treatment Note PT-OP-A Visit Information Start: 04/16/18 08:24 Freq: Status: Active Protocol: Document 06/07/18 09:45 AMB (Rec: 06/07/18 16:16 AMB [email or web address]) Out-Patient Physical Therapy Visit Information Visit Information Visit Type Progress Note Visit Start Time 09:45 Visit Stop Time 10:30 Total Visit Minutes 45 Visit Number 13 Number of SECRETARY RECEPTIONIST Visits 0 PT-OP-B Current Condition Start: 04/16/18 08:24 Freq: Status: Active Protocol: Document 04/16/18 13:45 AMB (Rec: 04/17/18 08:15 AMB [email or web address]) Current Condition History of Current Condition Onset Date September 2017 Current Complaints Left heel pain/ tightness History of Current Condition The patient reports that in September he fell onto his left foot from a 3 foot height. He kept hiking and backpacking until December, when the pain got really bad and he had to stop. Per his report he intially had a few small stress fractures, but those are now healed. He was given a boot and has been weaning off of it, and now just uses it as needed with pain. 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 He used to be on extensive opiates for the pain from being unable to have graft surgery on the left, but has been trained in hypnotic pain relief for this. He does use opiates for the pancreatic pain. PT-OP-C Subjective Start: 04/16/18 08:24 Freq: Status: Active Protocol: Document 06/07/18 09:45 AMB (Rec: 06/07/18 16:16 AMB [email or web address]) OP-PT Subjective Patient Comments Patient Comments Pt overall is feeling better, but has not yet been able to return to hiking. Pain at rest has declined to 1/10, but increases quickly with weightbearing. PT-OP-D Balance Start: 04/16/18 08:24 Freq: Status: Active Protocol: Document 04/16/18 13:45 AMB (Rec: 04/17/18 16:03 AMB [email or web address]) Balance Tests Single Limb Standing Single Limb- Right 3 seconds Single Limb- Left pain limits PT-OP-F Manual Assessment Start: 04/16/18 08:24 Freq: Status: Active Protocol: Document 05/02/18 13:45 RCC (Rec: 05/02/18 14:26 RCC [email or web address]) Manual Assessments Soft Tissue Assessment Soft Tissue Mobility Assessment Mod tension L plantar fascia Joint Mobility Assessment Joint Mobility Assessment L great toe MTP joint stiffness PT-OP-G Mobility & Gait Start: 04/16/18 08:24 Freq: Status: Active Protocol: Document 04/16/18 13:45 AMB (Rec: 04/17/18 10:30 AMB [email or web address]) OP Gait Assessment Comments Gait Comments Pt ambulates with hiking boots , slight antalgic gait, but no assistive device. PT-OP-J Posture/Palpation/Skin Start: 04/16/18 08:24 Freq: Status: Active Protocol: Document 04/16/18 13:45 AMB (Rec: 04/17/18 10:30 AMB [email or web address]) Posture Evaluation Comments Posture Comments High arches PT-OP-K Range of Motion Start: 04/16/18 08:24 Freq: Status: Active Protocol: Document 04/16/18 13:45 AMB (Rec: 04/17/18 10:30 AMB [email or web address]) Ankle and Foot Goniometric Range of Motion Ankle and Foot Measured in Degrees Right Passive Testing Position Supine Dorsiflexion with Knee Extended 5 Plantarflexion 50 Inversion 35 Eversion 25 Left Passive Dorsiflexion with Knee Extended 5 Plantarflexion 50 Inversion 30 Eversion 25 Ankle and Foot ROM Limitations Comments missing 7 degrees dorsiflexion from neutral with knee extended PT-OP-M Strength Start: 04/16/18 08:24 Freq: Status: Active Protocol: Document 04/16/18 13:45 AMB (Rec: 04/17/18 16:01 AMB [email or web address]) Ankle/Foot Strength Ankle and Foot Manual Muscle Testing Right Dorsiflexion (L4) 5 Normal Plantarflexion (S1) 5 Normal Inversion 4+ Good+ Eversion (S1) 5 Normal Left Dorsiflexion (L4) 4 Good Plantarflexion (S1) 4 Good Inversion 3+ Fair+ Eversion (S1) 4 Good Toe Strength Toe Manual Muscle Testing Right Great Toe Flexion 5 Normal Comments toes 2-5 flexion 5/5 Left Great Toe Extension 4- Good- Comments toe flexion 2-5: 3/5 PT-OP-Q Treatments Start: 04/16/18 08:24 Freq: Status: Active Protocol: Document 06/07/18 09:45 AMB (Rec: 06/07/18 16:16 AMB [email or web address]) Therapeutic Exercises Supine Exercises 4 Supine Exercise Name toe flexion Comments manual resistance Standing Exercises 4 Standing Exercise Name heel raises Reps/Minutes 2x10 Comments on stair Manual Therapy Treatment Soft Tissue Mobilization 1 Mobilization Type Myofascial Release Intensity/Depth Superficial Body Position Supine Comments plantar fascia Joint Mobilizations L great toe Joint 1st MTP joint Direction AP, PA Grade III Body Position Supine Comments traction PT-OP-R Modalities Start: 04/16/18 08:24 Freq: Status: Active Protocol: Document 06/07/18 09:45 AMB (Rec: 06/07/18 16:16 AMB [email or web address]) Ultrasound Therapy Treatment Left Volar Foot Treatment Duration (minutes) 8 Patient Position Supine Coupling Medium Ultrasound Gel Frequency Setting (mHz) 1 Intensity Setting (w/cm2) 1.2 PT-OP-T Assessment and Plan Start: 04/16/18 08:24 Freq: Status: Active Protocol: Document 06/07/18 09:45 AMB (Rec: 06/07/18 09:59 AMB [email or web address]) Physical Therapy Assessment Goals Three Impairment Hiking Short Term Goal (STG) The patient will ambulate over smooth surfaces with good shoes for 30 minutes with foot pain of 4/10 or less. STG Duration MET Cook Helper Juice Goal (LTG) The patient will hike for 30 minutes with a 20# pack with pain of 4/10 or less. LTG Duration 8 weeks Two Impairment Range of motion Short Term Goal (STG) Ankle dorsiflexion to 10 degrees bilaterally. 3/15 progress made STG Duration 4 weeks One Impairment Strength Short Term Goal (STG) Increase toe strength in all planes to 4+/5 3/15 progress made STG Duration 4 weeks Progress Towards Goals Progress Towards Goals Slow Progress due to Medical Issues Assessment Summary Assessment 1/10 pain at rest, but pain increases quickly with weightbearing. Overall pt has been increasing activity, but has not been able to meet his goals of hiking yet due to continued pain and scar tissue . Physical Therapy Plan Frequency and Duration Frequency of Treatment 2x/Week Duration of Treatment 8 weeks Plan of Care Start Date 06/07/18 Plan of Care End Date 08/02/18 Therapeutic Interventions Therapeutic Interventions Aquatic Therapy Gait Training Home Exercise Program Joint Mobilizations Manual Therapy Neuromuscular Re-education Self-Care/Home Management Soft Tissue Mobilization Therapeutic Activities Therapeutic Exercises Modalities Electric Stimulation Ultrasound Next Visit Focus/Plan Next Note Type Treatment Note Next Visit Plan Strengthen foot intrinsics, continue stretching manual therapy
--- NOTE | 2018-06-07 16:22 | PT.OPPOC ---
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 STG Duration MET Assisted Goal (LTG) The patient will hike for 30 minutes with a 20# pack with pain of 4/10 or less. LTG Duration 8 weeks Two Impairment Range of motion Short Term Goal (STG) Ankle dorsiflexion to 10 degrees bilaterally. 3/15 progress made STG Duration 4 weeks One Impairment Strength Short Term Goal (STG) Increase toe strength in all planes to 4+/5 3/15 progress made STG Duration 4 weeks Progress Towards Goals Progress Towards Goals Slow Progress due to Medical Issues Assessment Summary Assessment 1/10 pain at rest, but pain increases quickly with weightbearing. Overall pt has been increasing activity, but has not been able to meet his goals of hiking yet due to continued pain and scar tissue . Physical Therapy Plan Frequency and Duration Frequency of Treatment 2x/Week Duration of Treatment 8 weeks Plan of Care Start Date 06/07/18 Plan of Care End Date 08/02/18 Therapeutic Interventions Therapeutic Interventions Aquatic Therapy Gait Training Home Exercise Program Joint Mobilizations Manual Therapy Neuromuscular Re-education Self-Care/Home Management Soft Tissue Mobilization Therapeutic Activities Therapeutic Exercises Modalities Electric Stimulation Ultrasound Next Visit Focus/Plan Next Note Type Treatment Note Next Visit Plan Strengthen foot intrinsics, continue stretching manual therapy Plan of Care Dates Plan of Care Start Date 06/07/18 Plan of Care End Date 08/02/18 Please Sign and Return: I have reviewed this Plan of Care and certify that the skilled therapy services above are required to meet the patient?s needs. Physician Signature Date Printed Name and Credentials Clinical Instructor Signature Printed Name and Credentials
--- NOTE | 2018-06-11 14:53 | PT.OTN ---
Current Diagnoses Plantar fascial fibromatosis (06/11/18) Physical Therapy Treatment Note PT-OP-A Visit Information Start: 04/16/18 08:24 Freq: Status: Active Protocol: Document 06/11/18 10:27 BS (Rec: 06/11/18 10:31 BS [email or web address]) Out-Patient Physical Therapy Visit Information Visit Information Visit Type Treatment Note Visit Start Time 09:45 Visit Stop Time 10:25 Total Visit Minutes 40 Visit Number 14 Number of PATROL AGENT Visits 0 PT-OP-B Current Condition Start: 04/16/18 08:24 Freq: Status: Active Protocol: Document 04/16/18 13:45 AMB (Rec: 04/17/18 08:15 AMB [email or web address]) Current Condition History of Current Condition Onset Date September 2017 Current Complaints Left heel pain/ tightness History of Current Condition The patient reports that in September he fell onto his left foot from a 3 foot height. He kept hiking and backpacking until December, when the pain got really bad and he had to stop. Per his report he intially had a few small stress fractures, but those are now healed. He was given a boot and has been weaning off of it, and now just uses it as needed with pain. 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 He used to be on extensive opiates for the pain from being unable to have graft surgery on the left, but has been trained in hypnotic pain relief for this. He does use opiates for the pancreatic pain. PT-OP-C Subjective Start: 04/16/18 08:24 Freq: Status: Active Protocol: Document 06/11/18 10:27 BS (Rec: 06/11/18 10:31 BS [email or web address]) OP-PT Subjective Patient Comments Patient Comments Pt reports that he was able to swim in the pool recently without increased pain of L plantar fasciitis. Will trial 10 min hike and see how it goes. PT-OP-D Balance Start: 04/16/18 08:24 Freq: Status: Active Protocol: Document 04/16/18 13:45 AMB (Rec: 04/17/18 16:03 AMB [email or web address]) Balance Tests Single Limb Standing Single Limb- Right 3 seconds Single Limb- Left pain limits PT-OP-F Manual Assessment Start: 04/16/18 08:24 Freq: Status: Active Protocol: Document 05/02/18 13:45 RCC (Rec: 05/02/18 14:26 RCC [email or web address]) Manual Assessments Soft Tissue Assessment Soft Tissue Mobility Assessment Mod tension L plantar fascia Joint Mobility Assessment Joint Mobility Assessment L great toe MTP joint stiffness PT-OP-G Mobility & Gait Start: 04/16/18 08:24 Freq: Status: Active Protocol: Document 04/16/18 13:45 AMB (Rec: 04/17/18 10:30 AMB [email or web address]) OP Gait Assessment Comments Gait Comments Pt ambulates with hiking boots , slight antalgic gait, but no assistive device. PT-OP-J Posture/Palpation/Skin Start: 04/16/18 08:24 Freq: Status: Active Protocol: Document 04/16/18 13:45 AMB (Rec: 04/17/18 10:30 AMB [email or web address]) Posture Evaluation Comments Posture Comments High arches PT-OP-K Range of Motion Start: 04/16/18 08:24 Freq: Status: Active Protocol: Document 04/16/18 13:45 AMB (Rec: 04/17/18 10:30 AMB [email or web address]) Ankle and Foot Goniometric Range of Motion Ankle and Foot Measured in Degrees Right Passive Testing Position Supine Dorsiflexion with Knee Extended 5 Plantarflexion 50 Inversion 35 Eversion 25 Left Passive Dorsiflexion with Knee Extended 5 Plantarflexion 50 Inversion 30 Eversion 25 Ankle and Foot ROM Limitations Comments missing 7 degrees dorsiflexion from neutral with knee extended PT-OP-M Strength Start: 04/16/18 08:24 Freq: Status: Active Protocol: Document 04/16/18 13:45 AMB (Rec: 04/17/18 16:01 AMB [email or web address]) Ankle/Foot Strength Ankle and Foot Manual Muscle Testing Right Dorsiflexion (L4) 5 Normal Plantarflexion (S1) 5 Normal Inversion 4+ Good+ Eversion (S1) 5 Normal Left Dorsiflexion (L4) 4 Good Plantarflexion (S1) 4 Good Inversion 3+ Fair+ Eversion (S1) 4 Good Toe Strength Toe Manual Muscle Testing Right Great Toe Flexion 5 Normal Comments toes 2-5 flexion 5/5 Left Great Toe Extension 4- Good- Comments toe flexion 2-5: 3/5 PT-OP-Q Treatments Start: 04/16/18 08:24 Freq: Status: Active Protocol: Document 06/11/18 10:27 BS (Rec: 06/11/18 10:31 BS [email or web address]) Gym Equipment Shuttle Balance 1 Details RED Reps/Duration 4 min Comments WBOS/Eyes open focus on ankle response. Anterior/posterior Therapeutic Exercises Supine Exercises 2 Supine Exercise Name toes 2-5 extenson, isolated from great toe Side left Reps/Minutes x20 1 Supine Exercise Name Great toe extension, isolated Side left Reps/Minutes x20 Standing Exercises 4 Standing Exercise Name heel raises Reps/Minutes 2x10 Comments on stair 3 Standing Exercise Name DF/PF on Reps/Minutes x20 Manual Therapy Treatment Soft Tissue Mobilization 1 Mobilization Type Myofascial Release Intensity/Depth Superficial Body Position Supine Comments plantar fascia PT-OP-R Modalities Start: 04/16/18 08:24 Freq: Status: Active Protocol: Document 06/11/18 10:27 BS (Rec: 06/11/18 11:36 BS [email or web address]) Ultrasound Therapy Treatment Left Volar Foot Treatment Duration (minutes) 8 Patient Position Supine Coupling Medium Ultrasound Gel Frequency Setting (mHz) 1 Intensity Setting (w/cm2) 1.0 PT-OP-T Assessment and Plan Start: 04/16/18 08:24 Freq: Status: Active Protocol: Document 06/11/18 10:27 BS (Rec: 06/11/18 11:40 BS [email or web address]) Physical Therapy Assessment Assessment Summary Assessment Pt reports that he was able to return to swimming recently without increased L plantar fasciitis pain. Pt tolerated session well today. Pt plans to trial a 10 minute hike. Monitor response next visit. Physical Therapy Plan Frequency and Duration Frequency of Treatment 2x/Week Duration of Treatment 8 weeks Plan of Care Start Date 06/07/18 Plan of Care End Date 08/02/18 Therapeutic Interventions Therapeutic Interventions Aquatic Therapy Gait Training Home Exercise Program Joint Mobilizations Manual Therapy Neuromuscular Re-education Self-Care/Home Management Soft Tissue Mobilization Therapeutic Activities Therapeutic Exercises Modalities Electric Stimulation Ultrasound Next Visit Focus/Plan Next Visit Plan Intrinsic foot strengthening, continue manual therapy and stretching, L ankle DF ROM
--- NOTE | 2018-06-25 11:43 | PT.OTN ---
Current Diagnoses Plantar fascial fibromatosis (06/25/18) Physical Therapy Treatment Note PT-OP-A Visit Information Start: 04/16/18 08:24 Freq: Status: Active Protocol: Document 06/25/18 08:53 BS (Rec: 06/25/18 08:57 BS [email or web address]) Out-Patient Physical Therapy Visit Information Visit Information Visit Type Treatment Note Visit Start Time 08:15 Visit Stop Time 09:00 Total Visit Minutes 45 Visit Number 15 Number of NETWORKING TECHNOLOGY INSTRUCTOR Visits 0 PT-OP-B Current Condition Start: 04/16/18 08:24 Freq: Status: Active Protocol: Document 04/16/18 13:45 AMB (Rec: 04/17/18 08:15 AMB [email or web address]) Current Condition History of Current Condition Onset Date September 2017 Current Complaints Left heel pain/ tightness History of Current Condition The patient reports that in September he fell onto his left foot from a 3 foot height. He kept hiking and backpacking until December, when the pain got really bad and he had to stop. Per his report he intially had a few small stress fractures, but those are now healed. He was given a boot and has been weaning off of it, and now just uses it as needed with pain. 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 He used to be on extensive opiates for the pain from being unable to have graft surgery on the left, but has been trained in hypnotic pain relief for this. He does use opiates for the pancreatic pain. PT-OP-C Subjective Start: 04/16/18 08:24 Freq: Status: Active Protocol: Document 06/25/18 08:53 BS (Rec: 06/25/18 08:57 BS [id number]) OP-PT Subjective Patient Comments Patient Comments Pt reports he hiked 10 miles over the weekend and got carried away. His L foot was pretty painful the day following but is feeling a little better today. PT-OP-D Balance Start: 04/16/18 08:24 Freq: Status: Active Protocol: Document 04/16/18 13:45 AMB (Rec: 04/17/18 16:03 AMB [email or web address]) Balance Tests Single Limb Standing Single Limb- Right 3 seconds Single Limb- Left pain limits PT-OP-F Manual Assessment Start: 04/16/18 08:24 Freq: Status: Active Protocol: Document 05/02/18 13:45 RCC (Rec: 05/02/18 14:26 RCC [email or web address]) Manual Assessments Soft Tissue Assessment Soft Tissue Mobility Assessment Mod tension L plantar fascia Joint Mobility Assessment Joint Mobility Assessment L great toe MTP joint stiffness PT-OP-G Mobility & Gait Start: 04/16/18 08:24 Freq: Status: Active Protocol: Document 04/16/18 13:45 AMB (Rec: 04/17/18 10:30 AMB [email or web address]) OP Gait Assessment Comments Gait Comments Pt ambulates with hiking boots , slight antalgic gait, but no assistive device. PT-OP-J Posture/Palpation/Skin Start: 04/16/18 08:24 Freq: Status: Active Protocol: Document 04/16/18 13:45 AMB (Rec: 04/17/18 10:30 AMB [email or web address]) Posture Evaluation Comments Posture Comments High arches PT-OP-K Range of Motion Start: 04/16/18 08:24 Freq: Status: Active Protocol: Document 04/16/18 13:45 AMB (Rec: 04/17/18 10:30 AMB [email or web address]) Ankle and Foot Goniometric Range of Motion Ankle and Foot Measured in Degrees Right Passive Testing Position Supine Dorsiflexion with Knee Extended 5 Plantarflexion 50 Inversion 35 Eversion 25 Left Passive Dorsiflexion with Knee Extended 5 Plantarflexion 50 Inversion 30 Eversion 25 Ankle and Foot ROM Limitations Comments missing 7 degrees dorsiflexion from neutral with knee extended PT-OP-M Strength Start: 04/16/18 08:24 Freq: Status: Active Protocol: Document 04/16/18 13:45 AMB (Rec: 04/17/18 16:01 AMB [email or web address]) Ankle/Foot Strength Ankle and Foot Manual Muscle Testing Right Dorsiflexion (L4) 5 Normal Plantarflexion (S1) 5 Normal Inversion 4+ Good+ Eversion (S1) 5 Normal Left Dorsiflexion (L4) 4 Good Plantarflexion (S1) 4 Good Inversion 3+ Fair+ Eversion (S1) 4 Good Toe Strength Toe Manual Muscle Testing Right Great Toe Flexion 5 Normal Comments toes 2-5 flexion 5/5 Left Great Toe Extension 4- Good- Comments toe flexion 2-5: 3/5 PT-OP-Q Treatments Start: 04/16/18 08:24 Freq: Status: Active Protocol: Document 06/25/18 08:53 BS (Rec: 06/25/18 10:31 BS [email or web address]) Therapeutic Exercises Supine Exercises 7 Supine Exercise Name Calf stretch Side left Equipment Used with towel Reps/Minutes 3x30 Comments Long sitting 6 Supine Exercise Name Ankle Circles CW/CCW Side left Reps/Minutes x15 each direction Comments Long sitting 5 Supine Exercise Name Ankle 4way AROM Side left Reps/Minutes x15 each Comments Long sitting Manual Therapy Treatment Soft Tissue Mobilization 1 Mobilization Type Myofascial Release Intensity/Depth Moderate Body Position Supine Comments plantar fascia, achilles insertion PT-OP-R Modalities Start: 04/16/18 08:24 Freq: Status: Active Protocol: Document 06/25/18 08:53 BS (Rec: 06/25/18 10:31 BS [email or web address]) Ultrasound Therapy Treatment Left Volar Foot Treatment Duration (minutes) 8 Patient Position Supine Frequency Setting (mHz) 1 Intensity Setting (w/cm2) 1.5 PT-OP-T Assessment and Plan Start: 04/16/18 08:24 Freq: Status: Active Protocol: Document 06/25/18 08:53 BS (Rec: 06/25/18 10:31 BS [email or web address]) Physical Therapy Assessment Assessment Summary Assessment PT session today focused on manual therapy and use of US with exacerbation of L plantarfasciitis. Physical Therapy Plan Frequency and Duration Frequency of Treatment 2x/Week Duration of Treatment 8 weeks Plan of Care Start Date 06/07/18 Plan of Care End Date 08/02/18 Therapeutic Interventions Therapeutic Interventions Aquatic Therapy Gait Training Home Exercise Program Joint Mobilizations Manual Therapy Neuromuscular Re-education Self-Care/Home Management Soft Tissue Mobilization Therapeutic Activities Therapeutic Exercises Modalities Electric Stimulation Ultrasound Next Visit Focus/Plan Next Note Type Treatment Note Next Visit Plan Intrinsic foot strengthening, ankle mobility, calf stretches as tolerated.
--- NOTE | 2018-07-01 15:40 | PT.OTN ---
Current Diagnoses Plantar fascial fibromatosis (07/01/18) Physical Therapy Treatment Note PT-OP-A Visit Information Start: 04/16/18 08:24 Freq: Status: Active Protocol: Document 07/01/18 12:03 BS (Rec: 07/01/18 12:09 BS [email or web address]) Out-Patient Physical Therapy Visit Information Visit Information Visit Type Treatment Note Visit Start Time 11:30 Visit Stop Time 12:00 Total Visit Minutes 30 Visit Number 16 Number of EDUCATION ADMINISTRATIVE ASSISTANT Visits 0 PT-OP-B Current Condition Start: 04/16/18 08:24 Freq: Status: Active Protocol: Document 04/16/18 13:45 AMB (Rec: 04/17/18 08:15 AMB [email or web address]) Current Condition History of Current Condition Onset Date September 2017 Current Complaints Left heel pain/ tightness History of Current Condition The patient reports that in September he fell onto his left foot from a 3 foot height. He kept hiking and backpacking until December, when the pain got really bad and he had to stop. Per his report he intially had a few small stress fractures, but those are now healed. He was given a boot and has been weaning off of it, and now just uses it as needed with pain. 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 He used to be on extensive opiates for the pain from being unable to have graft surgery on the left, but has been trained in hypnotic pain relief for this. He does use opiates for the pancreatic pain. PT-OP-C Subjective Start: 04/16/18 08:24 Freq: Status: Active Protocol: Document 07/01/18 12:03 BS (Rec: 07/01/18 12:09 BS [email or web address]) OP-PT Subjective Patient Comments Patient Comments Pt states that his foot is getting back to where is was before 10 mile hike but is still a little irritated. PT-OP-D Balance Start: 04/16/18 08:24 Freq: Status: Active Protocol: Document 04/16/18 13:45 AMB (Rec: 04/17/18 16:03 AMB [email or web address]) Balance Tests Single Limb Standing Single Limb- Right 3 seconds Single Limb- Left pain limits PT-OP-F Manual Assessment Start: 04/16/18 08:24 Freq: Status: Active Protocol: Document 05/02/18 13:45 RCC (Rec: 05/02/18 14:26 RCC [email or web address]) Manual Assessments Soft Tissue Assessment Soft Tissue Mobility Assessment Mod tension L plantar fascia Joint Mobility Assessment Joint Mobility Assessment L great toe MTP joint stiffness PT-OP-G Mobility & Gait Start: 04/16/18 08:24 Freq: Status: Active Protocol: Document 04/16/18 13:45 AMB (Rec: 04/17/18 10:30 AMB [email or web address]) OP Gait Assessment Comments Gait Comments Pt ambulates with hiking boots , slight antalgic gait, but no assistive device. PT-OP-J Posture/Palpation/Skin Start: 04/16/18 08:24 Freq: Status: Active Protocol: Document 04/16/18 13:45 AMB (Rec: 04/17/18 10:30 AMB [email or web address]) Posture Evaluation Comments Posture Comments High arches PT-OP-K Range of Motion Start: 04/16/18 08:24 Freq: Status: Active Protocol: Document 04/16/18 13:45 AMB (Rec: 04/17/18 10:30 AMB [email or web address]) Ankle and Foot Goniometric Range of Motion Ankle and Foot Measured in Degrees Right Passive Testing Position Supine Dorsiflexion with Knee Extended 5 Plantarflexion 50 Inversion 35 Eversion 25 Left Passive Dorsiflexion with Knee Extended 5 Plantarflexion 50 Inversion 30 Eversion 25 Ankle and Foot ROM Limitations Comments missing 7 degrees dorsiflexion from neutral with knee extended PT-OP-M Strength Start: 04/16/18 08:24 Freq: Status: Active Protocol: Document 04/16/18 13:45 AMB (Rec: 04/17/18 16:01 AMB [email or web address]) Ankle/Foot Strength Ankle and Foot Manual Muscle Testing Right Dorsiflexion (L4) 5 Normal Plantarflexion (S1) 5 Normal Inversion 4+ Good+ Eversion (S1) 5 Normal Left Dorsiflexion (L4) 4 Good Plantarflexion (S1) 4 Good Inversion 3+ Fair+ Eversion (S1) 4 Good Toe Strength Toe Manual Muscle Testing Right Great Toe Flexion 5 Normal Comments toes 2-5 flexion 5/5 Left Great Toe Extension 4- Good- Comments toe flexion 2-5: 3/5 PT-OP-Q Treatments Start: 04/16/18 08:24 Freq: Status: Active Protocol: Document 07/01/18 12:03 BS (Rec: 07/01/18 12:09 BS [email or web address]) Therapeutic Exercises Supine Exercises 7 Supine Exercise Name Calf stretch Side left Equipment Used Passive stretching Reps/Minutes 3x30 Comments Long sitting 5 Supine Exercise Name Ankle 4way Side left Resistance #2 band Reps/Minutes 2x10 each Comments Supine 4 Supine Exercise Name toe flexion Reps/Minutes 8x5 hold Comments manual resistance Manual Therapy Treatment Soft Tissue Mobilization 1 Mobilization Type Myofascial Release Intensity/Depth Moderate Body Position Supine Comments plantar fascia, achilles insertion Joint Mobilizations L great toe Joint Intermetatarsal Direction AP, PA Grade III Body Position Supine PT-OP-R Modalities Start: 04/16/18 08:24 Freq: Status: Active Protocol: Document 07/01/18 12:03 BS (Rec: 07/01/18 12:09 BS [email or web address]) Ultrasound Therapy Treatment Left Volar Foot Treatment Duration (minutes) 8 Patient Position Supine Coupling Medium Ultrasound Gel Frequency Setting (mHz) 1 Intensity Setting (w/cm2) 1.5 Comments tender over medial arch and achilles insertion PT-OP-T Assessment and Plan Start: 04/16/18 08:24 Freq: Status: Active Protocol: Document 07/01/18 12:03 BS (Rec: 07/01/18 12:09 BS [email or web address]) Physical Therapy Assessment Assessment Summary Assessment Working to reduce pain and irritation following recent exacerbation with 10 mile hike . Pt advised to wear hiking boots with community ambulation instead of trail running shoes. Physical Therapy Plan Frequency and Duration Frequency of Treatment 2x/Week Duration of Treatment 8 weeks Plan of Care Start Date 06/07/18 Plan of Care End Date 08/02/18 Therapeutic Interventions Therapeutic Interventions Aquatic Therapy Gait Training Home Exercise Program Joint Mobilizations Manual Therapy Neuromuscular Re-education Self-Care/Home Management Soft Tissue Mobilization Therapeutic Activities Therapeutic Exercises Modalities Electric Stimulation Ultrasound Next Visit Focus/Plan Next Note Type Treatment Note Next Visit Plan Progress back to intrinsic foot and ankle strengthening as tolerated.
--- NOTE | 2018-07-04 15:22 | PT.OTN ---
Current Diagnoses Plantar fascial fibromatosis (07/04/18) Physical Therapy Treatment Note PT-OP-A Visit Information Start: 04/16/18 08:24 Freq: Status: Active Protocol: Document 07/04/18 12:08 BS (Rec: 07/04/18 12:16 BS [email or web address]) Out-Patient Physical Therapy Visit Information Visit Information Visit Type Treatment Note Visit Start Time 11:35 Visit Stop Time 12:05 Total Visit Minutes 30 Visit Number 17 Number of MARINE FIRE FIGHTER Visits 0 PT-OP-B Current Condition Start: 04/16/18 08:24 Freq: Status: Active Protocol: Document 04/16/18 13:45 AMB (Rec: 04/17/18 08:15 AMB [email or web address]) Current Condition History of Current Condition Onset Date September 2017 Current Complaints Left heel pain/ tightness History of Current Condition The patient reports that in September he fell onto his left foot from a 3 foot height. He kept hiking and backpacking until December, when the pain got really bad and he had to stop. Per his report he intially had a few small stress fractures, but those are now healed. He was given a boot and has been weaning off of it, and now just uses it as needed with pain. 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 He used to be on extensive opiates for the pain from being unable to have graft surgery on the left, but has been trained in hypnotic pain relief for this. He does use opiates for the pancreatic pain. PT-OP-C Subjective Start: 04/16/18 08:24 Freq: Status: Active Protocol: Document 07/04/18 12:08 BS (Rec: 07/04/18 12:16 BS [email or web address]) OP-PT Subjective Patient Comments Patient Comments Pt states, I did something crazy to irritate my foot when I was rolling my it on the tennis ball this morning. Otherwise beforehand it was feeling okay. PT-OP-D Balance Start: 04/16/18 08:24 Freq: Status: Active Protocol: Document 04/16/18 13:45 AMB (Rec: 04/17/18 16:03 AMB [email or web address]) Balance Tests Single Limb Standing Single Limb- Right 3 seconds Single Limb- Left pain limits PT-OP-F Manual Assessment Start: 04/16/18 08:24 Freq: Status: Active Protocol: Document 05/02/18 13:45 RCC (Rec: 05/02/18 14:26 RCC [email or web address]) Manual Assessments Soft Tissue Assessment Soft Tissue Mobility Assessment Mod tension L plantar fascia Joint Mobility Assessment Joint Mobility Assessment L great toe MTP joint stiffness PT-OP-G Mobility & Gait Start: 04/16/18 08:24 Freq: Status: Active Protocol: Document 04/16/18 13:45 AMB (Rec: 04/17/18 10:30 AMB [email or web address]) OP Gait Assessment Comments Gait Comments Pt ambulates with hiking boots , slight antalgic gait, but no assistive device. PT-OP-J Posture/Palpation/Skin Start: 04/16/18 08:24 Freq: Status: Active Protocol: Document 04/16/18 13:45 AMB (Rec: 04/17/18 10:30 AMB [email or web address]) Posture Evaluation Comments Posture Comments High arches PT-OP-K Range of Motion Start: 04/16/18 08:24 Freq: Status: Active Protocol: Document 04/16/18 13:45 AMB (Rec: 04/17/18 10:30 AMB [email or web address]) Ankle and Foot Goniometric Range of Motion Ankle and Foot Measured in Degrees Right Passive Testing Position Supine Dorsiflexion with Knee Extended 5 Plantarflexion 50 Inversion 35 Eversion 25 Left Passive Dorsiflexion with Knee Extended 5 Plantarflexion 50 Inversion 30 Eversion 25 Ankle and Foot ROM Limitations Comments missing 7 degrees dorsiflexion from neutral with knee extended PT-OP-M Strength Start: 04/16/18 08:24 Freq: Status: Active Protocol: Document 04/16/18 13:45 AMB (Rec: 04/17/18 16:01 AMB [email or web address]) Ankle/Foot Strength Ankle and Foot Manual Muscle Testing Right Dorsiflexion (L4) 5 Normal Plantarflexion (S1) 5 Normal Inversion 4+ Good+ Eversion (S1) 5 Normal Left Dorsiflexion (L4) 4 Good Plantarflexion (S1) 4 Good Inversion 3+ Fair+ Eversion (S1) 4 Good Toe Strength Toe Manual Muscle Testing Right Great Toe Flexion 5 Normal Comments toes 2-5 flexion 5/5 Left Great Toe Extension 4- Good- Comments toe flexion 2-5: 3/5 PT-OP-Q Treatments Start: 04/16/18 08:24 Freq: Status: Active Protocol: Document 07/04/18 12:08 BS (Rec: 07/04/18 12:16 BS [email or web address]) Therapeutic Exercises Supine Exercises 6 Supine Exercise Name Ankle Circles CW/CCW Side left Reps/Minutes x10 each direction Comments Long sitting 5 Supine Exercise Name Ankle 4way Side left Resistance #2 band Reps/Minutes [address] Comments Supine Manual Therapy Treatment Soft Tissue Mobilization 1 Mobilization Type Myofascial Release Intensity/Depth Moderate Body Position Supine Comments medial arch more painful than achilles insertion today. Joint Mobilizations L great toe Joint Intermetatarsal Direction AP, PA Grade III Body Position Supine PT-OP-R Modalities Start: 04/16/18 08:24 Freq: Status: Active Protocol: Document 07/04/18 12:08 BS (Rec: 07/04/18 12:16 BS [email or web address]) Ultrasound Therapy Treatment Left Volar Foot Treatment Duration (minutes) 8 Patient Position Supine Coupling Medium Ultrasound Gel Frequency Setting (mHz) 1 Intensity Setting (w/cm2) 1.5 Comments most tender over medial arch PT-OP-T Assessment and Plan Start: 04/16/18 08:24 Freq: Status: Active Protocol: Document 07/04/18 12:08 BS (Rec: 07/04/18 12:16 BS [email or web address]) Physical Therapy Assessment Assessment Summary Assessment Pt has been recovering from 10 mile hike a few weeks ago and it was improving, but strange flare up of medial arch pain today which pt reports is from rolling his foot on the tennis ball this morning prior to PT. Pt ambulated with slight limp on LLE today. Pt encouraged to wear night splint. Physical Therapy Plan Frequency and Duration Frequency of Treatment 2x/Week Duration of Treatment 8 weeks Plan of Care Start Date 06/07/18 Plan of Care End Date 08/02/18 Therapeutic Interventions Therapeutic Interventions Aquatic Therapy Gait Training Home Exercise Program Joint Mobilizations Manual Therapy Neuromuscular Re-education Self-Care/Home Management Soft Tissue Mobilization Therapeutic Activities Therapeutic Exercises Modalities Electric Stimulation Ultrasound Next Visit Focus/Plan Next Note Type Treatment Note Next Visit Plan Consider IASTM to L plantar fascia, Ankle AROM, and intrinsic foot mm strengthening.
--- NOTE | 2018-07-12 14:03 | PT.OTN ---
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) Physical Therapy Treatment Note PT-OP-A Visit Information Start: 04/16/18 08:24 Freq: Status: Active Protocol: Document 07/12/18 09:36 BS (Rec: 07/12/18 08:31 BS [id number]) Out-Patient Physical Therapy Visit Information Visit Information Visit Type Treatment Note Visit Start Time 08:47 Visit Stop Time 09:32 Total Visit Minutes 45 Visit Number 18 Number of COLLECTIONS AGENT Visits 0 PT-OP-B Current Condition Start: 04/16/18 08:24 Freq: Status: Active Protocol: Document 04/16/18 13:45 AMB (Rec: 04/17/18 08:15 AMB [email or web address]) Current Condition History of Current Condition Onset Date September 2017 Current Complaints Left heel pain/ tightness History of Current Condition The patient reports that in September he fell onto his left foot from a 3 foot height. He kept hiking and backpacking until December, when the pain got really bad and he had to stop. Per his report he intially had a few small stress fractures, but those are now healed. He was given a boot and has been weaning off of it, and now just uses it as needed with pain. 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 He used to be on extensive opiates for the pain from being unable to have graft surgery on the left, but has been trained in hypnotic pain relief for this. He does use opiates for the pancreatic pain. PT-OP-C Subjective Start: 04/16/18 08:24 Freq: Status: Active Protocol: Document 07/12/18 09:36 BS (Rec: 07/12/18 12:35 BS [id number]) OP-PT Subjective Patient Comments Patient Comments Pt reports that his L plantar fascia is feeling much better than it has the past fe weeks. He has noticed less tightness and pain. Pt ambulated into clinic today without limping and wearing hiking boots. PT-OP-D Balance Start: 04/16/18 08:24 Freq: Status: Active Protocol: Document 04/16/18 13:45 AMB (Rec: 04/17/18 16:03 AMB [email or web address]) Balance Tests Single Limb Standing Single Limb- Right 3 seconds Single Limb- Left pain limits PT-OP-F Manual Assessment Start: 04/16/18 08:24 Freq: Status: Active Protocol: Document 05/02/18 13:45 RCC (Rec: 05/02/18 14:26 RCC [email or web address]) Manual Assessments Soft Tissue Assessment Soft Tissue Mobility Assessment Mod tension L plantar fascia Joint Mobility Assessment Joint Mobility Assessment L great toe MTP joint stiffness PT-OP-G Mobility & Gait Start: 04/16/18 08:24 Freq: Status: Active Protocol: Document 04/16/18 13:45 AMB (Rec: 04/17/18 10:30 AMB [email or web address]) OP Gait Assessment Comments Gait Comments Pt ambulates with hiking boots , slight antalgic gait, but no assistive device. PT-OP-J Posture/Palpation/Skin Start: 04/16/18 08:24 Freq: Status: Active Protocol: Document 04/16/18 13:45 AMB (Rec: 04/17/18 10:30 AMB [email or web address]) Posture Evaluation Comments Posture Comments High arches PT-OP-K Range of Motion Start: 04/16/18 08:24 Freq: Status: Active Protocol: Document 04/16/18 13:45 AMB (Rec: 04/17/18 10:30 AMB [email or web address]) Ankle and Foot Goniometric Range of Motion Ankle and Foot Measured in Degrees Right Passive Testing Position Supine Dorsiflexion with Knee Extended 5 Plantarflexion 50 Inversion 35 Eversion 25 Left Passive Dorsiflexion with Knee Extended 5 Plantarflexion 50 Inversion 30 Eversion 25 Ankle and Foot ROM Limitations Comments missing 7 degrees dorsiflexion from neutral with knee extended PT-OP-M Strength Start: 04/16/18 08:24 Freq: Status: Active Protocol: Document 04/16/18 13:45 AMB (Rec: 04/17/18 16:01 AMB [email or web address]) Ankle/Foot Strength Ankle and Foot Manual Muscle Testing Right Dorsiflexion (L4) 5 Normal Plantarflexion (S1) 5 Normal Inversion 4+ Good+ Eversion (S1) 5 Normal Left Dorsiflexion (L4) 4 Good Plantarflexion (S1) 4 Good Inversion 3+ Fair+ Eversion (S1) 4 Good Toe Strength Toe Manual Muscle Testing Right Great Toe Flexion 5 Normal Comments toes 2-5 flexion 5/5 Left Great Toe Extension 4- Good- Comments toe flexion 2-5: 3/5 PT-OP-Q Treatments Start: 04/16/18 08:24 Freq: Status: Active Protocol: Document 07/12/18 09:36 BS (Rec: 07/12/18 08:31 BS [id number]) Therapeutic Exercises Supine Exercises 7 Supine Exercise Name Calf stretch Side left Equipment Used Passive stretching Reps/Minutes 3x30 Comments long sitting 5 Supine Exercise Name Ankle 4way Side left Resistance #1 band Reps/Minutes [address] Comments Supine 4 Supine Exercise Name toe flexion (I-V) Reps/Minutes 10x5 hold Comments manual resistance Sitting Exercises 3 Sitting Exercise Name Towel scrunches Side left Reps/Minutes x20 Comments difficult due to neuropathy 2 Sitting Exercise Name Isolated dig II-V extension Side left Reps/Minutes x20 Comments holding down great toe 1 Sitting Exercise Name Isolated great toe ext Side left Reps/Minutes x20 Standing Exercises 4 Standing Exercise Name Gastroc/soleus stretch Side left Equipment Used JOSE, off of stair, knee bent Reps/Minutes 2x45 each Manual Therapy Treatment Soft Tissue Mobilization 1 Mobilization Type Myofascial Release Intensity/Depth Moderate Body Position Supine Comments less tightness in medial arch today. Joint Mobilizations L great toe Joint Intermetatarsal Direction AP, PA Grade III Body Position Supine PT-OP-R Modalities Start: 04/16/18 08:24 Freq: Status: Active Protocol: Document 07/12/18 09:36 BS (Rec: 07/12/18 08:31 BS [id number]) Ultrasound Therapy Treatment Left Volar Foot Treatment Duration (minutes) 8 Patient Position Supine Coupling Medium Ultrasound Gel Frequency Setting (mHz) 1 Intensity Setting (w/cm2) 1.5 Comments most tender over medial arch PT-OP-T Assessment and Plan Start: 04/16/18 08:24 Freq: Status: Active Protocol: Document 07/12/18 09:36 BS (Rec: 07/12/18 08:31 BS [id number]) Physical Therapy Assessment Assessment Summary Assessment Pt seems to be improving and his plantar fasciitis is less irritated. He tolerated more intrinsic strengthening of L foot today. Physical Therapy Plan Frequency and Duration Frequency of Treatment 2x/Week Duration of Treatment 8 weeks Plan of Care Start Date 06/07/18 Plan of Care End Date 08/02/18 Therapeutic Interventions Therapeutic Interventions Aquatic Therapy Gait Training Home Exercise Program Joint Mobilizations Manual Therapy Neuromuscular Re-education Self-Care/Home Management Soft Tissue Mobilization Therapeutic Activities Therapeutic Exercises Modalities Electric Stimulation Ultrasound Next Visit Focus/Plan Next Note Type Treatment Note Next Visit Plan intrinsic L foot strengthening , ankle tband 4 way. Consider standing calf raises if pt is not flared up.
--- NOTE | 2018-07-15 16:28 | PT.OTN ---
Current Diagnoses Plantar fascial fibromatosis (07/15/18) Physical Therapy Treatment Note PT-OP-A Visit Information Start: 04/16/18 08:24 Freq: Status: Active Protocol: Document 07/15/18 12:10 BS (Rec: 07/15/18 13:30 BS [id number]) Out-Patient Physical Therapy Visit Information Visit Information Visit Type Treatment Note Visit Start Time 11:30 Visit Stop Time 13:10 Total Visit Minutes 40 Visit Number 19 Number of DEMOLITION HAMMER OPERATOR Visits 0 PT-OP-B Current Condition Start: 04/16/18 08:24 Freq: Status: Active Protocol: Document 04/16/18 13:45 AMB (Rec: 04/17/18 08:15 AMB [email or web address]) Current Condition History of Current Condition Onset Date September 2017 Current Complaints Left heel pain/ tightness History of Current Condition The patient reports that in September he fell onto his left foot from a 3 foot height. He kept hiking and backpacking until December, when the pain got really bad and he had to stop. Per his report he intially had a few small stress fractures, but those are now healed. He was given a boot and has been weaning off of it, and now just uses it as needed with pain. 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 He used to be on extensive opiates for the pain from being unable to have graft surgery on the left, but has been trained in hypnotic pain relief for this. He does use opiates for the pancreatic pain. PT-OP-C Subjective Start: 04/16/18 08:24 Freq: Status: Active Protocol: Document 07/15/18 12:10 BS (Rec: 07/15/18 13:30 BS [id number]) OP-PT Subjective Patient Comments Patient Comments Pt states that his foot is feeling a lot better but still unable to hike as much as he would like. Will trial a 20 minute walk on even surface this week. PT-OP-D Balance Start: 04/16/18 08:24 Freq: Status: Active Protocol: Document 04/16/18 13:45 AMB (Rec: 04/17/18 16:03 AMB [email or web address]) Balance Tests Single Limb Standing Single Limb- Right 3 seconds Single Limb- Left pain limits PT-OP-F Manual Assessment Start: 04/16/18 08:24 Freq: Status: Active Protocol: Document 05/02/18 13:45 RCC (Rec: 05/02/18 14:26 RCC [email or web address]) Manual Assessments Soft Tissue Assessment Soft Tissue Mobility Assessment Mod tension L plantar fascia Joint Mobility Assessment Joint Mobility Assessment L great toe MTP joint stiffness PT-OP-G Mobility & Gait Start: 04/16/18 08:24 Freq: Status: Active Protocol: Document 04/16/18 13:45 AMB (Rec: 04/17/18 10:30 AMB [email or web address]) OP Gait Assessment Comments Gait Comments Pt ambulates with hiking boots , slight antalgic gait, but no assistive device. PT-OP-J Posture/Palpation/Skin Start: 04/16/18 08:24 Freq: Status: Active Protocol: Document 04/16/18 13:45 AMB (Rec: 04/17/18 10:30 AMB [email or web address]) Posture Evaluation Comments Posture Comments High arches PT-OP-K Range of Motion Start: 04/16/18 08:24 Freq: Status: Active Protocol: Document 04/16/18 13:45 AMB (Rec: 04/17/18 10:30 AMB [email or web address]) Ankle and Foot Goniometric Range of Motion Ankle and Foot Measured in Degrees Right Passive Testing Position Supine Dorsiflexion with Knee Extended 5 Plantarflexion 50 Inversion 35 Eversion 25 Left Passive Dorsiflexion with Knee Extended 5 Plantarflexion 50 Inversion 30 Eversion 25 Ankle and Foot ROM Limitations Comments missing 7 degrees dorsiflexion from neutral with knee extended PT-OP-M Strength Start: 04/16/18 08:24 Freq: Status: Active Protocol: Document 04/16/18 13:45 AMB (Rec: 04/17/18 16:01 AMB [email or web address]) Ankle/Foot Strength Ankle and Foot Manual Muscle Testing Right Dorsiflexion (L4) 5 Normal Plantarflexion (S1) 5 Normal Inversion 4+ Good+ Eversion (S1) 5 Normal Left Dorsiflexion (L4) 4 Good Plantarflexion (S1) 4 Good Inversion 3+ Fair+ Eversion (S1) 4 Good Toe Strength Toe Manual Muscle Testing Right Great Toe Flexion 5 Normal Comments toes 2-5 flexion 5/5 Left Great Toe Extension 4- Good- Comments toe flexion 2-5: 3/5 PT-OP-Q Treatments Start: 04/16/18 08:24 Freq: Status: Active Protocol: Document 07/15/18 12:10 BS (Rec: 07/15/18 13:30 BS [id number]) Gym Equipment Shuttle Balance 1 Details Ant/Post and Lateral Reps/Duration x5 min total Comments Red. Therapeutic Exercises Supine Exercises 7 Supine Exercise Name Calf stretch Side left Equipment Used Passive stretching Reps/Minutes 3x30 Comments long sitting 5 Supine Exercise Name Ankle 4way Side left Resistance #2 band Reps/Minutes [address] Comments Supine 4 Supine Exercise Name toe flexion (I-V) Reps/Minutes x12 with ankle PF Tband Standing Exercises 4 Standing Exercise Name Gastroc/soleus stretch Side left Equipment Used JOSE, off of stair, knee bent Reps/Minutes 2x45 each 3 Standing Exercise Name Calf Raises Side bilateral Reps/Minutes 2x10 2 Standing Exercise Name Eccentric Calf Lower Side left Reps/Minutes x10 Manual Therapy Treatment Soft Tissue Mobilization 1 Mobilization Type Myofascial Release Intensity/Depth Moderate Body Position Supine Comments no pain at medial arch today. Some tenderness over L achilles insertion. Joint Mobilizations L great toe Joint Intermetatarsal Direction AP, PA Grade III Body Position Supine PT-OP-R Modalities Start: 04/16/18 08:24 Freq: Status: Active Protocol: Document 07/15/18 12:10 BS (Rec: 07/15/18 13:30 BS [id number]) Ultrasound Therapy Treatment Left Volar Foot Treatment Duration (minutes) 8 Patient Position Supine Coupling Medium Ultrasound Gel Frequency Setting (mHz) 1 Intensity Setting (w/cm2) 1.5 Comments minimal tenderness over medial arch today. PT-OP-T Assessment and Plan Start: 04/16/18 08:24 Freq: Status: Active Protocol: Document 07/15/18 12:10 BS (Rec: 07/15/18 13:30 BS [id number]) Physical Therapy Assessment Assessment Summary Assessment Pt tolerated more standing exercises today for calf strengthening and balance on shuttle. Pt is reporting noticeable improvements and will trial a 20 min even surface walk/hike this week. Physical Therapy Plan Frequency and Duration Frequency of Treatment 2x/Week Duration of Treatment 8 weeks Plan of Care Start Date 06/07/18 Plan of Care End Date 08/02/18 Therapeutic Interventions Therapeutic Interventions Aquatic Therapy Gait Training Home Exercise Program Joint Mobilizations Manual Therapy Neuromuscular Re-education Self-Care/Home Management Soft Tissue Mobilization Therapeutic Activities Therapeutic Exercises Modalities Electric Stimulation Ultrasound Next Visit Focus/Plan Next Note Type Treatment Note Next Visit Plan Cotinue to progress intrinsic foot strenthening and calf/ gastroc as able. Assess response to 20 min hike.
--- NOTE | 2018-07-18 12:52 | PT.OTN ---
Current Diagnoses Plantar fascial fibromatosis (07/18/18) Physical Therapy Treatment Note PT-OP-A Visit Information Start: 04/16/18 08:24 Freq: Status: Active Protocol: Document 07/18/18 12:10 BS (Rec: 07/18/18 12:16 BS [email or web address]) Out-Patient Physical Therapy Visit Information Visit Information Visit Type Treatment Note Visit Start Time 11:30 Visit Stop Time 12:10 Total Visit Minutes 40 Visit Number 20 Number of EVAPORATOR SUPERVISOR Visits 0 PT-OP-B Current Condition Start: 04/16/18 08:24 Freq: Status: Active Protocol: Document 04/16/18 13:45 AMB (Rec: 04/17/18 08:15 AMB [email or web address]) Current Condition History of Current Condition Onset Date September 2017 Current Complaints Left heel pain/ tightness History of Current Condition The patient reports that in September he fell onto his left foot from a 3 foot height. He kept hiking and backpacking until December, when the pain got really bad and he had to stop. Per his report he intially had a few small stress fractures, but those are now healed. He was given a boot and has been weaning off of it, and now just uses it as needed with pain. 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 He used to be on extensive opiates for the pain from being unable to have graft surgery on the left, but has been trained in hypnotic pain relief for this. He does use opiates for the pancreatic pain. PT-OP-C Subjective Start: 04/16/18 08:24 Freq: Status: Active Protocol: Document 07/18/18 12:10 BS (Rec: 07/18/18 12:16 BS [email or web address]) OP-PT Subjective Patient Comments Patient Comments Pt reports that he hiked 20 minutes with steep incline, was a little sore in the L heel following but it only lasted 1 day. Feels good today and is not limping. PT-OP-D Balance Start: 04/16/18 08:24 Freq: Status: Active Protocol: Document 04/16/18 13:45 AMB (Rec: 04/17/18 16:03 AMB [email or web address]) Balance Tests Single Limb Standing Single Limb- Right 3 seconds Single Limb- Left pain limits PT-OP-F Manual Assessment Start: 04/16/18 08:24 Freq: Status: Active Protocol: Document 05/02/18 13:45 RCC (Rec: 05/02/18 14:26 RCC [email or web address]) Manual Assessments Soft Tissue Assessment Soft Tissue Mobility Assessment Mod tension L plantar fascia Joint Mobility Assessment Joint Mobility Assessment L great toe MTP joint stiffness PT-OP-G Mobility & Gait Start: 04/16/18 08:24 Freq: Status: Active Protocol: Document 04/16/18 13:45 AMB (Rec: 04/17/18 10:30 AMB [email or web address]) OP Gait Assessment Comments Gait Comments Pt ambulates with hiking boots , slight antalgic gait, but no assistive device. PT-OP-J Posture/Palpation/Skin Start: 04/16/18 08:24 Freq: Status: Active Protocol: Document 04/16/18 13:45 AMB (Rec: 04/17/18 10:30 AMB [email or web address]) Posture Evaluation Comments Posture Comments High arches PT-OP-K Range of Motion Start: 04/16/18 08:24 Freq: Status: Active Protocol: Document 04/16/18 13:45 AMB (Rec: 04/17/18 10:30 AMB [email or web address]) Ankle and Foot Goniometric Range of Motion Ankle and Foot Measured in Degrees Right Passive Testing Position Supine Dorsiflexion with Knee Extended 5 Plantarflexion 50 Inversion 35 Eversion 25 Left Passive Dorsiflexion with Knee Extended 5 Plantarflexion 50 Inversion 30 Eversion 25 Ankle and Foot ROM Limitations Comments missing 7 degrees dorsiflexion from neutral with knee extended PT-OP-M Strength Start: 04/16/18 08:24 Freq: Status: Active Protocol: Document 04/16/18 13:45 AMB (Rec: 04/17/18 16:01 AMB [email or web address]) Ankle/Foot Strength Ankle and Foot Manual Muscle Testing Right Dorsiflexion (L4) 5 Normal Plantarflexion (S1) 5 Normal Inversion 4+ Good+ Eversion (S1) 5 Normal Left Dorsiflexion (L4) 4 Good Plantarflexion (S1) 4 Good Inversion 3+ Fair+ Eversion (S1) 4 Good Toe Strength Toe Manual Muscle Testing Right Great Toe Flexion 5 Normal Comments toes 2-5 flexion 5/5 Left Great Toe Extension 4- Good- Comments toe flexion 2-5: 3/5 PT-OP-Q Treatments Start: 04/16/18 08:24 Freq: Status: Active Protocol: Document 07/18/18 12:10 BS (Rec: 07/18/18 12:16 BS [email or web address]) Gym Equipment Shuttle Balance 1 Details Ant/Post and Lateral Reps/Duration x5 min total Comments Red. WBOS and NBOS with ant/ post. Therapeutic Exercises Supine Exercises 5 Supine Exercise Name Ankle 2way Side left Resistance #2 band Reps/Minutes 15 each Comments Supine. Inversion/Eversion 4 Supine Exercise Name toe flexion (I-V) Reps/Minutes x10 Comments manual resistance Standing Exercises 4 Standing Exercise Name Gastroc/soleus stretch Side left Equipment Used JOSE, off of stair, knee bent Reps/Minutes 2x45 each 3 Standing Exercise Name Calf Raises Side bilateral Reps/Minutes x15 2 Standing Exercise Name Eccentric Calf Lower Side left Reps/Minutes x15 Manual Therapy Treatment Soft Tissue Mobilization 1 Mobilization Type Myofascial Release Intensity/Depth Moderate Body Position Supine Comments Some tenderness with mod pressure to medial arch. Tenderness at achilles insertion. Joint Mobilizations L great toe Joint Intermetatarsal Direction AP, PA Grade III Body Position Supine PT-OP-R Modalities Start: 04/16/18 08:24 Freq: Status: Active Protocol: Document 07/18/18 12:10 BS (Rec: 07/18/18 12:16 BS [email or web address]) Ultrasound Therapy Treatment Left Volar Foot Treatment Duration (minutes) 8 Patient Position Supine Coupling Medium Ultrasound Gel Frequency Setting (mHz) 1 Intensity Setting (w/cm2) 1.5 Comments medial arch and achilles insertion tenderness with mod pressure of US head. PT-OP-T Assessment and Plan Start: 04/16/18 08:24 Freq: Status: Active Protocol: Document 07/18/18 12:10 BS (Rec: 07/18/18 12:16 BS [email or web address]) Physical Therapy Assessment Assessment Summary Assessment Pt continues to tolerate more standing balance and calf strengthening exercises as compared to 2 weeks ago with flare up. His L plantar fasciitis is less irritable than before and he is tolerating short hikes. Physical Therapy Plan Frequency and Duration Frequency of Treatment 2x/Week Duration of Treatment 8 weeks Plan of Care Start Date 06/07/18 Plan of Care End Date 08/02/18 Therapeutic Interventions Therapeutic Interventions Aquatic Therapy Gait Training Home Exercise Program Joint Mobilizations Manual Therapy Neuromuscular Re-education Self-Care/Home Management Soft Tissue Mobilization Therapeutic Activities Therapeutic Exercises Modalities Electric Stimulation Ultrasound Next Visit Focus/Plan Next Note Type Treatment Note Next Visit Plan Progression of weightbearing balance challenging activities for intrinsic foot and ankle strengthening.
--- NOTE | 2018-07-23 16:02 | PT.OTN ---
Current Diagnoses Plantar fascial fibromatosis (07/23/18) Physical Therapy Treatment Note PT-OP-A Visit Information Start: 04/16/18 08:24 Freq: Status: Active Protocol: Document 07/23/18 12:05 BS (Rec: 07/23/18 12:11 BS [email or web address]) Out-Patient Physical Therapy Visit Information Visit Information Visit Type Treatment Note Visit Start Time 11:30 Visit Stop Time 12:00 Total Visit Minutes 30 Visit Number 21 Number of PHYSICIAN OFFICE SPECIALIST Visits 0 PT-OP-B Current Condition Start: 04/16/18 08:24 Freq: Status: Active Protocol: Document 04/16/18 13:45 AMB (Rec: 04/17/18 08:15 AMB [email or web address]) Current Condition History of Current Condition Onset Date September 2017 Current Complaints Left heel pain/ tightness History of Current Condition The patient reports that in September he fell onto his left foot from a 3 foot height. He kept hiking and backpacking until December, when the pain got really bad and he had to stop. Per his report he intially had a few small stress fractures, but those are now healed. He was given a boot and has been weaning off of it, and now just uses it as needed with pain. 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 He used to be on extensive opiates for the pain from being unable to have graft surgery on the left, but has been trained in hypnotic pain relief for this. He does use opiates for the pancreatic pain. PT-OP-C Subjective Start: 04/16/18 08:24 Freq: Status: Active Protocol: Document 07/23/18 12:05 BS (Rec: 07/23/18 12:11 BS [email or web address]) OP-PT Subjective Patient Comments Patient Comments Pt states that his L foot is a little painful today, he noticed it hurting while in shower this morning. Went on 20 min walk prior to PT session. PT-OP-D Balance Start: 04/16/18 08:24 Freq: Status: Active Protocol: Document 04/16/18 13:45 AMB (Rec: 04/17/18 16:03 AMB [email or web address]) Balance Tests Single Limb Standing Single Limb- Right 3 seconds Single Limb- Left pain limits PT-OP-F Manual Assessment Start: 04/16/18 08:24 Freq: Status: Active Protocol: Document 05/02/18 13:45 RCC (Rec: 05/02/18 14:26 RCC [email or web address]) Manual Assessments Soft Tissue Assessment Soft Tissue Mobility Assessment Mod tension L plantar fascia Joint Mobility Assessment Joint Mobility Assessment L great toe MTP joint stiffness PT-OP-G Mobility & Gait Start: 04/16/18 08:24 Freq: Status: Active Protocol: Document 04/16/18 13:45 AMB (Rec: 04/17/18 10:30 AMB [email or web address]) OP Gait Assessment Comments Gait Comments Pt ambulates with hiking boots , slight antalgic gait, but no assistive device. PT-OP-J Posture/Palpation/Skin Start: 04/16/18 08:24 Freq: Status: Active Protocol: Document 04/16/18 13:45 AMB (Rec: 04/17/18 10:30 AMB [email or web address]) Posture Evaluation Comments Posture Comments High arches PT-OP-K Range of Motion Start: 04/16/18 08:24 Freq: Status: Active Protocol: Document 04/16/18 13:45 AMB (Rec: 04/17/18 10:30 AMB [email or web address]) Ankle and Foot Goniometric Range of Motion Ankle and Foot Measured in Degrees Right Passive Testing Position Supine Dorsiflexion with Knee Extended 5 Plantarflexion 50 Inversion 35 Eversion 25 Left Passive Dorsiflexion with Knee Extended 5 Plantarflexion 50 Inversion 30 Eversion 25 Ankle and Foot ROM Limitations Comments missing 7 degrees dorsiflexion from neutral with knee extended PT-OP-M Strength Start: 04/16/18 08:24 Freq: Status: Active Protocol: Document 04/16/18 13:45 AMB (Rec: 04/17/18 16:01 AMB [email or web address]) Ankle/Foot Strength Ankle and Foot Manual Muscle Testing Right Dorsiflexion (L4) 5 Normal Plantarflexion (S1) 5 Normal Inversion 4+ Good+ Eversion (S1) 5 Normal Left Dorsiflexion (L4) 4 Good Plantarflexion (S1) 4 Good Inversion 3+ Fair+ Eversion (S1) 4 Good Toe Strength Toe Manual Muscle Testing Right Great Toe Flexion 5 Normal Comments toes 2-5 flexion 5/5 Left Great Toe Extension 4- Good- Comments toe flexion 2-5: 3/5 PT-OP-Q Treatments Start: 04/16/18 08:24 Freq: Status: Active Protocol: Document 07/23/18 12:05 BS (Rec: 07/23/18 12:11 BS [email or web address]) Gym Equipment Shuttle Balance 1 Details Ant/Post and Lateral Reps/Duration x5 min total Comments Red. WBOS and NBOS with ant/ post. WBOS with lateral Therapeutic Exercises Supine Exercises 7 Supine Exercise Name Calf stretch Side left Equipment Used Passive stretching Reps/Minutes 3x30 Comments long sitting 5 Supine Exercise Name Ankle 3way Side left Resistance #2 band Reps/Minutes 15 each Comments Inv/Ever/DF 4 Supine Exercise Name toe flexion (I-V) Reps/Minutes x10 Comments manual resistance Standing Exercises 4 Standing Exercise Name Gastroc/soleus stretch Side left Equipment Used JOSE, off of stair, knee bent Reps/Minutes 2x45 each 3 Standing Exercise Name Calf Raises Side bilateral Reps/Minutes x20 2 Standing Exercise Name Eccentric Calf Lower Side left Reps/Minutes x20 Manual Therapy Treatment Soft Tissue Mobilization 1 Mobilization Type Myofascial Release Intensity/Depth Moderate Body Position Supine Comments No tenderness along medial arch or achilles insertion today. PT-OP-R Modalities Start: 04/16/18 08:24 Freq: Status: Active Protocol: Document 07/23/18 12:05 BS (Rec: 07/23/18 12:11 BS [email or web address]) Ultrasound Therapy Treatment Left Volar Foot Treatment Duration (minutes) 8 Patient Position Supine Coupling Medium Ultrasound Gel Frequency Setting (mHz) 1 Intensity Setting (w/cm2) 1.5 Comments No medial arch or achilles insertion tenderness with mod pressure of US head. PT-OP-T Assessment and Plan Start: 04/16/18 08:24 Freq: Status: Active Protocol: Document 07/23/18 12:05 BS (Rec: 07/23/18 12:11 BS [email or web address]) Physical Therapy Assessment Assessment Summary Assessment Pt noted some L foot pain when in shower this morning and prior to session, slight limping into clinic. Pt tolerated session well without increasing his pain and reported minimal pain at end of session. Physical Therapy Plan Frequency and Duration Frequency of Treatment 2x/Week Duration of Treatment 8 weeks Plan of Care Start Date 06/07/18 Plan of Care End Date 08/02/18 Therapeutic Interventions Therapeutic Interventions Aquatic Therapy Gait Training Home Exercise Program Joint Mobilizations Manual Therapy Neuromuscular Re-education Self-Care/Home Management Soft Tissue Mobilization Therapeutic Activities Therapeutic Exercises Modalities Electric Stimulation Ultrasound Next Visit Focus/Plan Next Note Type Treatment Note Next Visit Plan Progression of intrinsic foot strengthening and balance at tolerable by pt. Encourage him to wear his night splint.
--- NOTE | 2018-07-26 11:39 | PT.OTN ---
Current Diagnoses Plantar fascial fibromatosis (07/26/18) Physical Therapy Treatment Note PT-OP-A Visit Information Start: 04/16/18 08:24 Freq: Status: Active Protocol: Document 07/26/18 10:33 BS (Rec: 07/26/18 11:09 BS [id number]) Out-Patient Physical Therapy Visit Information Visit Information Visit Type Treatment Note Visit Start Time 09:45 Visit Stop Time 10:30 Total Visit Minutes 45 Visit Number 22 Number of SENIOR HR MANAGER Visits 0 PT-OP-B Current Condition Start: 04/16/18 08:24 Freq: Status: Active Protocol: Document 04/16/18 13:45 AMB (Rec: 04/17/18 08:15 AMB [email or web address]) Current Condition History of Current Condition Onset Date September 2017 Current Complaints Left heel pain/ tightness History of Current Condition The patient reports that in September he fell onto his left foot from a 3 foot height. He kept hiking and backpacking until December, when the pain got really bad and he had to stop. Per his report he intially had a few small stress fractures, but those are now healed. He was given a boot and has been weaning off of it, and now just uses it as needed with pain. 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 He used to be on extensive opiates for the pain from being unable to have graft surgery on the left, but has been trained in hypnotic pain relief for this. He does use opiates for the pancreatic pain. PT-OP-C Subjective Start: 04/16/18 08:24 Freq: Status: Active Protocol: Document 07/26/18 10:33 BS (Rec: 07/26/18 11:09 BS [id number]) OP-PT Subjective Patient Comments Patient Comments Pt reports that he is still having difficulty with walking due to L plantar fascia pain. He went for a 20 min walk yesterday on [place], 5 /10 pain during. PT-OP-D Balance Start: 04/16/18 08:24 Freq: Status: Active Protocol: Document 04/16/18 13:45 AMB (Rec: 04/17/18 16:03 AMB [email or web address]) Balance Tests Single Limb Standing Single Limb- Right 3 seconds Single Limb- Left pain limits PT-OP-F Manual Assessment Start: 04/16/18 08:24 Freq: Status: Active Protocol: Document 05/02/18 13:45 RCC (Rec: 05/02/18 14:26 RCC [email or web address]) Manual Assessments Soft Tissue Assessment Soft Tissue Mobility Assessment Mod tension L plantar fascia Joint Mobility Assessment Joint Mobility Assessment L great toe MTP joint stiffness PT-OP-G Mobility & Gait Start: 04/16/18 08:24 Freq: Status: Active Protocol: Document 04/16/18 13:45 AMB (Rec: 04/17/18 10:30 AMB [email or web address]) OP Gait Assessment Comments Gait Comments Pt ambulates with hiking boots , slight antalgic gait, but no assistive device. PT-OP-J Posture/Palpation/Skin Start: 04/16/18 08:24 Freq: Status: Active Protocol: Document 04/16/18 13:45 AMB (Rec: 04/17/18 10:30 AMB [email or web address]) Posture Evaluation Comments Posture Comments High arches PT-OP-K Range of Motion Start: 04/16/18 08:24 Freq: Status: Active Protocol: Document 04/16/18 13:45 AMB (Rec: 04/17/18 10:30 AMB [email or web address]) Ankle and Foot Goniometric Range of Motion Ankle and Foot Measured in Degrees Right Passive Testing Position Supine Dorsiflexion with Knee Extended 5 Plantarflexion 50 Inversion 35 Eversion 25 Left Passive Dorsiflexion with Knee Extended 5 Plantarflexion 50 Inversion 30 Eversion 25 Ankle and Foot ROM Limitations Comments missing 7 degrees dorsiflexion from neutral with knee extended PT-OP-M Strength Start: 04/16/18 08:24 Freq: Status: Active Protocol: Document 04/16/18 13:45 AMB (Rec: 04/17/18 16:01 AMB [email or web address]) Ankle/Foot Strength Ankle and Foot Manual Muscle Testing Right Dorsiflexion (L4) 5 Normal Plantarflexion (S1) 5 Normal Inversion 4+ Good+ Eversion (S1) 5 Normal Left Dorsiflexion (L4) 4 Good Plantarflexion (S1) 4 Good Inversion 3+ Fair+ Eversion (S1) 4 Good Toe Strength Toe Manual Muscle Testing Right Great Toe Flexion 5 Normal Comments toes 2-5 flexion 5/5 Left Great Toe Extension 4- Good- Comments toe flexion 2-5: 3/5 PT-OP-Q Treatments Start: 04/16/18 08:24 Freq: Status: Active Protocol: Document 07/26/18 10:33 BS (Rec: 07/26/18 11:09 BS [id number]) Gym Equipment Shuttle Balance 1 Details Ant/Post and Lateral Comments Red. NBOS & stride stance with ant/post. WBOS with lateral Therapeutic Exercises Supine Exercises 7 Supine Exercise Name Calf stretch Side left Equipment Used Passive stretching Reps/Minutes 3x30 Comments long sitting 5 Supine Exercise Name Ankle 4way Side left Resistance #3 band Reps/Minutes x20 each Comments Inv/Ever/DF/PF 4 Supine Exercise Name toe flexion (I-V) Reps/Minutes x12 Comments manual resistance Sitting Exercises 2 Sitting Exercise Name Isolated dig II-V extension Side left Reps/Minutes x20 Comments holding down great toe 1 Sitting Exercise Name Isolated great toe ext Side left Reps/Minutes x20 Standing Exercises 4 Standing Exercise Name Gastroc/soleus stretch Side left Equipment Used JOSE, off of stair, knee bent Reps/Minutes 2x45 each 3 Standing Exercise Name Calf Raises Side bilateral Reps/Minutes x20 2 Standing Exercise Name Eccentric Calf Lower Side left Reps/Minutes x20 Manual Therapy Treatment Soft Tissue Mobilization 1 Mobilization Type Myofascial Release Intensity/Depth Moderate Body Position Supine Comments Tenderness with mod-deep pressure at medial arch. PT-OP-R Modalities Start: 04/16/18 08:24 Freq: Status: Active Protocol: Document 07/26/18 10:33 BS (Rec: 07/26/18 11:09 BS [id number]) Ultrasound Therapy Treatment Left Volar Foot Treatment Duration (minutes) 8 Patient Position Supine Coupling Medium Ultrasound Gel Frequency Setting (mHz) 1 Intensity Setting (w/cm2) 1.5 Comments No medial arch or achilles insertion tenderness with mod pressure of US head. PT-OP-T Assessment and Plan Start: 04/16/18 08:24 Freq: Status: Active Protocol: Document 07/26/18 10:33 BS (Rec: 07/26/18 11:09 BS [id number]) Physical Therapy Assessment Assessment Summary Assessment Pt continues to have L plantar fascia pain with walking >10 minutes. Pt advised to start with 15 min walk instead of 20min to gradually progress. Physical Therapy Plan Frequency and Duration Frequency of Treatment 2x/Week Duration of Treatment 8 weeks Plan of Care Start Date 06/07/18 Plan of Care End Date 08/02/18 Therapeutic Interventions Therapeutic Interventions Aquatic Therapy Gait Training Home Exercise Program Joint Mobilizations Manual Therapy Neuromuscular Re-education Self-Care/Home Management Soft Tissue Mobilization Therapeutic Activities Therapeutic Exercises Modalities Electric Stimulation Ultrasound Next Visit Focus/Plan Next Note Type Treatment Note Next Visit Plan Assess response to 15 min walk trial. Progress intrinsic foot strenthening and gastroc/ soleus as able.
--- NOTE | 2018-07-30 12:15 | PT.OTN ---
Current Diagnoses Plantar fascial fibromatosis (07/30/18) Physical Therapy Treatment Note PT-OP-A Visit Information Start: 04/16/18 08:24 Freq: Status: Active Protocol: Document 07/30/18 12:02 BS (Rec: 07/30/18 12:10 BS [email or web address]) Out-Patient Physical Therapy Visit Information Visit Information Visit Type Treatment Note Visit Start Time 09:45 Visit Stop Time 10:30 Total Visit Minutes 45 Visit Number 23 Number of GRAIN FARMWORKER Visits 0 PT-OP-B Current Condition Start: 04/16/18 08:24 Freq: Status: Active Protocol: Document 04/16/18 13:45 AMB (Rec: 04/17/18 08:15 AMB [email or web address]) Current Condition History of Current Condition Onset Date September 2017 Current Complaints Left heel pain/ tightness History of Current Condition The patient reports that in September he fell onto his left foot from a 3 foot height. He kept hiking and backpacking until December, when the pain got really bad and he had to stop. Per his report he intially had a few small stress fractures, but those are now healed. He was given a boot and has been weaning off of it, and now just uses it as needed with pain. 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 He used to be on extensive opiates for the pain from being unable to have graft surgery on the left, but has been trained in hypnotic pain relief for this. He does use opiates for the pancreatic pain. PT-OP-C Subjective Start: 04/16/18 08:24 Freq: Status: Active Protocol: Document 07/30/18 12:02 BS (Rec: 07/30/18 12:10 BS [email or web address]) OP-PT Subjective Patient Comments Patient Comments Pt reports 4/10 pain when walking [place] this morning, he is frustrated with this. PT-OP-D Balance Start: 04/16/18 08:24 Freq: Status: Active Protocol: Document 04/16/18 13:45 AMB (Rec: 04/17/18 16:03 AMB [email or web address]) Balance Tests Single Limb Standing Single Limb- Right 3 seconds Single Limb- Left pain limits PT-OP-F Manual Assessment Start: 04/16/18 08:24 Freq: Status: Active Protocol: Document 05/02/18 13:45 RCC (Rec: 05/02/18 14:26 RCC [email or web address]) Manual Assessments Soft Tissue Assessment Soft Tissue Mobility Assessment Mod tension L plantar fascia Joint Mobility Assessment Joint Mobility Assessment L great toe MTP joint stiffness PT-OP-G Mobility & Gait Start: 04/16/18 08:24 Freq: Status: Active Protocol: Document 04/16/18 13:45 AMB (Rec: 04/17/18 10:30 AMB [email or web address]) OP Gait Assessment Comments Gait Comments Pt ambulates with hiking boots , slight antalgic gait, but no assistive device. PT-OP-J Posture/Palpation/Skin Start: 04/16/18 08:24 Freq: Status: Active Protocol: Document 04/16/18 13:45 AMB (Rec: 04/17/18 10:30 AMB [email or web address]) Posture Evaluation Comments Posture Comments High arches PT-OP-K Range of Motion Start: 04/16/18 08:24 Freq: Status: Active Protocol: Document 04/16/18 13:45 AMB (Rec: 04/17/18 10:30 AMB [email or web address]) Ankle and Foot Goniometric Range of Motion Ankle and Foot Measured in Degrees Right Passive Testing Position Supine Dorsiflexion with Knee Extended 5 Plantarflexion 50 Inversion 35 Eversion 25 Left Passive Dorsiflexion with Knee Extended 5 Plantarflexion 50 Inversion 30 Eversion 25 Ankle and Foot ROM Limitations Comments missing 7 degrees dorsiflexion from neutral with knee extended PT-OP-M Strength Start: 04/16/18 08:24 Freq: Status: Active Protocol: Document 04/16/18 13:45 AMB (Rec: 04/17/18 16:01 AMB [email or web address]) Ankle/Foot Strength Ankle and Foot Manual Muscle Testing Right Dorsiflexion (L4) 5 Normal Plantarflexion (S1) 5 Normal Inversion 4+ Good+ Eversion (S1) 5 Normal Left Dorsiflexion (L4) 4 Good Plantarflexion (S1) 4 Good Inversion 3+ Fair+ Eversion (S1) 4 Good Toe Strength Toe Manual Muscle Testing Right Great Toe Flexion 5 Normal Comments toes 2-5 flexion 5/5 Left Great Toe Extension 4- Good- Comments toe flexion 2-5: 3/5 PT-OP-Q Treatments Start: 04/16/18 08:24 Freq: Status: Active Protocol: Document 07/30/18 12:02 BS (Rec: 07/30/18 12:10 BS [email or web address]) Gym Equipment Shuttle Balance 1 Details Ant/Post and Lateral Comments Red. NBOS & stride stance with ant/post. WBOS with lateral Therapeutic Exercises Supine Exercises 7 Supine Exercise Name Calf stretch Side left Equipment Used Passive stretching Reps/Minutes 3x30 Comments long sitting 5 Supine Exercise Name Ankle 4way Side left Resistance #3 band Reps/Minutes x20 each Comments Inv/Ever/DF/PF 4 Supine Exercise Name toe flexion (I-V) Reps/Minutes x10 Comments manual resistance Sitting Exercises 2 Sitting Exercise Name Isolated dig II-V extension Side left Reps/Minutes x20 Comments holding down great toe 1 Sitting Exercise Name Isolated great toe ext Side left Reps/Minutes x20 Standing Exercises 4 Standing Exercise Name Gastroc/soleus stretch Side left Equipment Used JOSE, off of stair, knee bent Reps/Minutes 2x45 each 3 Standing Exercise Name Calf Raises Side bilateral Reps/Minutes x20 2 Standing Exercise Name Eccentric Calf Lower Side left Reps/Minutes x15 Manual Therapy Treatment Soft Tissue Mobilization 1 Mobilization Type Myofascial Release Intensity/Depth Moderate Body Position Supine Comments Tenderness with mod-deep pressure at medial arch. Joint Mobilizations L great toe Joint Intermetatarsal Direction AP, PA Grade III Body Position Supine PT-OP-R Modalities Start: 04/16/18 08:24 Freq: Status: Active Protocol: Document 07/30/18 12:02 BS (Rec: 07/30/18 12:10 BS [email or web address]) Ultrasound Therapy Treatment Left Volar Foot Treatment Duration (minutes) 8 Patient Position Supine Coupling Medium Ultrasound Gel Frequency Setting (mHz) 1 Intensity Setting (w/cm2) 1.5 Comments Most of pt's tenderness over achilles insertion today. PT-OP-T Assessment and Plan Start: 04/16/18 08:24 Freq: Status: Active Protocol: Document 07/30/18 12:02 BS (Rec: 07/30/18 12:10 BS [email or web address]) Physical Therapy Assessment Assessment Summary Assessment Pt has been frustrated with his L plantar fascia pain with walking on flat surfaces. He continues to have pain with walking on hard surfaces, but has improved with less irritability and duration of pain following his walks as it usually subsides within a few hours. D[place]ed [place] getting [place] away and walking >15 minutes to avoid exacerbation. Physical Therapy Plan Frequency and Duration Frequency of Treatment 2x/Week Duration of Treatment 8 weeks Plan of Care Start Date 06/07/18 Plan of Care End Date 08/02/18 Therapeutic Interventions Therapeutic Interventions Aquatic Therapy Gait Training Home Exercise Program Joint Mobilizations Manual Therapy Neuromuscular Re-education Self-Care/Home Management Soft Tissue Mobilization Therapeutic Activities Therapeutic Exercises Modalities Electric Stimulation Ultrasound Next Visit Focus/Plan Next Note Type Treatment Note Next Visit Plan New POC. Assess response [place]. Continue with intrinsic foot strengthening and gastroc/ soleus strengthening. Progress as able.
--- NOTE | 2018-08-02 16:25 | PT.OTN ---
Current Diagnoses Plantar fascial fibromatosis (08/02/18) Physical Therapy Treatment Note PT-OP-A Visit Information Start: 04/16/18 08:24 Freq: Status: Active Protocol: Document 08/02/18 09:45 AMB (Rec: 08/02/18 10:01 AMB [id number]) Out-Patient Physical Therapy Visit Information Visit Information Visit Type Treatment Note Visit Start Time 09:45 Visit Stop Time 10:30 Total Visit Minutes 45 Visit Number 24 Number of RETAIL CLERK Visits 0 PT-OP-B Current Condition Start: 04/16/18 08:24 Freq: Status: Active Protocol: Document 04/16/18 13:45 AMB (Rec: 04/17/18 08:15 AMB [email or web address]) Current Condition History of Current Condition Onset Date September 2017 Current Complaints Left heel pain/ tightness History of Current Condition The patient reports that in September he fell onto his left foot from a 3 foot height. He kept hiking and backpacking until December, when the pain got really bad and he had to stop. Per his report he intially had a few small stress fractures, but those are now healed. He was given a boot and has been weaning off of it, and now just uses it as needed with pain. 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 He used to be on extensive opiates for the pain from being unable to have graft surgery on the left, but has been trained in hypnotic pain relief for this. He does use opiates for the pancreatic pain. PT-OP-C Subjective Start: 04/16/18 08:24 Freq: Status: Active Protocol: Document 08/02/18 09:45 AMB (Rec: 08/02/18 10:01 AMB [id number]) OP-PT Subjective Patient Comments Patient Comments Pt with pain in ball of foot this morning during shower. Walking around house (off road ) and has been feeling better. PT-OP-D Balance Start: 04/16/18 08:24 Freq: Status: Active Protocol: Document 04/16/18 13:45 AMB (Rec: 04/17/18 16:03 AMB [email or web address]) Balance Tests Single Limb Standing Single Limb- Right 3 seconds Single Limb- Left pain limits PT-OP-F Manual Assessment Start: 04/16/18 08:24 Freq: Status: Active Protocol: Document 05/02/18 13:45 RCC (Rec: 05/02/18 14:26 RCC [email or web address]) Manual Assessments Soft Tissue Assessment Soft Tissue Mobility Assessment Mod tension L plantar fascia Joint Mobility Assessment Joint Mobility Assessment L great toe MTP joint stiffness PT-OP-G Mobility & Gait Start: 04/16/18 08:24 Freq: Status: Active Protocol: Document 04/16/18 13:45 AMB (Rec: 04/17/18 10:30 AMB [email or web address]) OP Gait Assessment Comments Gait Comments Pt ambulates with hiking boots , slight antalgic gait, but no assistive device. PT-OP-J Posture/Palpation/Skin Start: 04/16/18 08:24 Freq: Status: Active Protocol: Document 04/16/18 13:45 AMB (Rec: 04/17/18 10:30 AMB [email or web address]) Posture Evaluation Comments Posture Comments High arches PT-OP-K Range of Motion Start: 04/16/18 08:24 Freq: Status: Active Protocol: Document 04/16/18 13:45 AMB (Rec: 04/17/18 10:30 AMB [email or web address]) Ankle and Foot Goniometric Range of Motion Ankle and Foot Measured in Degrees Right Passive Testing Position Supine Dorsiflexion with Knee Extended 5 Plantarflexion 50 Inversion 35 Eversion 25 Left Passive Dorsiflexion with Knee Extended 5 Plantarflexion 50 Inversion 30 Eversion 25 Ankle and Foot ROM Limitations Comments missing 7 degrees dorsiflexion from neutral with knee extended PT-OP-M Strength Start: 04/16/18 08:24 Freq: Status: Active Protocol: Document 08/02/18 10:03 AMB (Rec: 08/02/18 10:10 AMB [id number]) Ankle/Foot Strength Ankle and Foot Manual Muscle Testing Left Dorsiflexion (L4) 4 Good Plantarflexion (S1) 4 Good Inversion 4 Good Eversion (S1) 4+ Good+ PT-OP-Q Treatments Start: 04/16/18 08:24 Freq: Status: Active Protocol: Document 08/02/18 16:12 AMB (Rec: 05/10/19 16:25 AMB [email or web address]) Therapeutic Exercises Supine Exercises 7 Supine Exercise Name Calf stretch Side left Equipment Used Passive stretching Reps/Minutes 3x30 Comments long sitting 5 Supine Exercise Name Ankle 4way Side left Resistance #3 band Reps/Minutes x20 each Comments Inv/Ever/DF/PF 4 Supine Exercise Name toe flexion (I-V) Reps/Minutes x10 Comments manual resistance Sitting Exercises 1 Sitting Exercise Name Isolated great toe ext Side left Reps/Minutes x20 Standing Exercises 3 Standing Exercise Name Calf Raises Side bilateral Reps/Minutes x20 2 Standing Exercise Name Eccentric Calf Lower Side left Reps/Minutes x15 Manual Therapy Treatment Soft Tissue Mobilization 1 Mobilization Type Myofascial Release Intensity/Depth Moderate Body Position Supine Comments Tenderness with mod-deep pressure at medial arch. Joint Mobilizations L great toe Joint Intermetatarsal Direction AP, PA Grade III Body Position Supine PT-OP-R Modalities Start: 04/16/18 08:24 Freq: Status: Active Protocol: Document 08/02/18 16:12 AMB (Rec: 08/02/18 16:25 AMB [email or web address]) Ultrasound Therapy Treatment Left Volar Foot Treatment Duration (minutes) 8 Patient Position Supine Coupling Medium Ultrasound Gel Frequency Setting (mHz) 1 Intensity Setting (w/cm2) 1.5 PT-OP-T Assessment and Plan Start: 04/16/18 08:24 Freq: Status: Active Protocol: Document 08/02/18 16:12 AMB (Rec: 08/02/18 16:25 AMB [email or web address]) Physical Therapy Assessment Goals Three Impairment Hiking Short Term Goal (STG) The patient will ambulate over smooth surfaces with good shoes for 30 minutes with foot pain of 4/10 or less. STG Duration MET Machine Taper Goal (LTG) The patient will hike for 30 minutes with a 20# pack with pain of 4/10 or less. 5/10: partially met, can hike for 15 minutes without a pack. LTG Duration 8 weeks Two Impairment Range of motion Short Term Goal (STG) Ankle dorsiflexion to 10 degrees bilaterally. 5/10: met passively STG Duration 4 weeks One Impairment Strength Short Term Goal (STG) Increase toe strength in all planes to 4+/5 5/10 progress made STG Duration 4 weeks Assessment Summary Assessment Alfredo has improved considerably in the last month of PT. He is tolerating 15 minutes of hiking without a flare of his pain. His goal is to be able to hike 12 miles [place] [facility] [place] by November, which will continue to take work to get to that goal. Physical Therapy Plan Frequency and Duration Frequency of Treatment 2x/Week Duration of Treatment 8 weeks Plan of Care Start Date 08/02/18 Plan of Care End Date 09/27/18 Therapeutic Interventions Therapeutic Interventions Aquatic Therapy Gait Training Home Exercise Program Joint Mobilizations Manual Therapy Neuromuscular Re-education Self-Care/Home Management Soft Tissue Mobilization Therapeutic Activities Therapeutic Exercises Modalities Electric Stimulation Ultrasound Next Visit Focus/Plan Next Note Type Treatment Note Next Visit Plan Continue with intrinsic foot strengthening.
--- NOTE | 2018-08-02 16:26 | PT.OPPOC ---
Current Diagnoses Plantar fascial fibromatosis (08/02/18) Provider Visit Care Team Role Provider Type Jacobo Ochoa MD Attending Provider Non-Staff Family Provider Primary Care Provider Specialty: Emergency Medicine Address: [address] [place] [address], [place], [address] Email: Plan Of Care PT-OP-T Assessment and Plan Start: 04/16/18 08:24 Freq: Status: Active Protocol: Document 08/02/18 16:12 AMB (Rec: 08/02/18 16:25 AMB [email or web address]) Physical Therapy Assessment Goals Three Impairment Hiking Short Term Goal (STG) The patient will ambulate over smooth surfaces with good shoes for 30 minutes with foot pain of 4/10 or less. STG Duration MET Superannuation Clerk Goal (LTG) The patient will hike for 30 minutes with a 20# pack with pain of 4/10 or less. 5/10: partially met, can hike for 15 minutes without a pack. LTG Duration 8 weeks Two Impairment Range of motion Short Term Goal (STG) Ankle dorsiflexion to 10 degrees bilaterally. 5/10: met passively STG Duration 4 weeks One Impairment Strength Short Term Goal (STG) Increase toe strength in all planes to 4+/5 5/10 progress made STG Duration 4 weeks Assessment Summary Assessment Alfredo has improved considerably in the last month of PT. He is tolerating 15 minutes of hiking without a flare of his pain. His goal [place] [facility] [place] [facility] [place] [facility], which will continue to take work to get to that goal. Physical Therapy Plan Frequency and Duration Frequency of Treatment 2x/Week Duration of Treatment 8 weeks Plan of Care Start Date 08/02/18 Plan of Care End Date 09/27/18 Therapeutic Interventions Therapeutic Interventions Aquatic Therapy Gait Training Home Exercise Program Joint Mobilizations Manual Therapy Neuromuscular Re-education Self-Care/Home Management Soft Tissue Mobilization Therapeutic Activities Therapeutic Exercises Modalities Electric Stimulation Ultrasound Next Visit Focus/Plan Next Note Type Treatment Note Next Visit Plan Continue with intrinsic foot strengthening. Plan of Care Dates Plan of Care Start Date 08/02/18 Plan of Care End Date 09/27/18 Please Sign and Return: I have reviewed this Plan of Care and certify that the skilled therapy services above are required to meet the patient?s needs. Physician Signature Date Printed Name and Credentials Clinical Instructor Signature Printed Name and Credentials
--- NOTE | 2018-08-09 11:26 | PT.OTN ---
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) Physical Therapy Treatment Note PT-OP-A Visit Information Start: 04/16/18 08:24 Freq: Status: Active Protocol: Document 08/09/18 11:16 SA (Rec: 08/09/18 11:26 SA [email or web address]) Out-Patient Physical Therapy Visit Information Visit Information Visit Type Treatment Note Visit Start Time 09:00 Visit Stop Time 09:46 Total Visit Minutes 46 Visit Number 25 Number of NUCLEAR ENGINEER Visits 1 PT-OP-B Current Condition Start: 04/16/18 08:24 Freq: Status: Active Protocol: Document 04/16/18 13:45 AMB (Rec: 04/17/18 08:15 AMB [email or web address]) Current Condition History of Current Condition Onset Date September 2017 Current Complaints Left heel pain/ tightness History of Current Condition The patient reports that in September he fell onto his left foot from a 3 foot height. He kept hiking and backpacking until December, when the pain got really bad and he had to stop. Per his report he intially had a few small stress fractures, but those are now healed. He was given a boot and has been weaning off of it, and now just uses it as needed with pain. 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 He used to be on extensive opiates for the pain from being unable to have graft surgery on the left, but has been trained in hypnotic pain relief for this. He does use opiates for the pancreatic pain. PT-OP-C Subjective Start: 04/16/18 08:24 Freq: Status: Active Protocol: Document 08/09/18 11:16 SA (Rec: 08/09/18 11:26 SA [email or web address]) OP-PT Subjective Patient Comments Patient Comments Pt reports tolerating 20 min hikes well, plans to go fishing this weekend but promises to keep track of his distance/time walking and rest as needed. PT-OP-D Balance Start: 04/16/18 08:24 Freq: Status: Active Protocol: Document 04/16/18 13:45 AMB (Rec: 04/17/18 16:03 AMB [email or web address]) Balance Tests Single Limb Standing Single Limb- Right 3 seconds Single Limb- Left pain limits PT-OP-F Manual Assessment Start: 04/16/18 08:24 Freq: Status: Active Protocol: Document 05/02/18 13:45 RCC (Rec: 05/02/18 14:26 RCC [email or web address]) Manual Assessments Soft Tissue Assessment Soft Tissue Mobility Assessment Mod tension L plantar fascia Joint Mobility Assessment Joint Mobility Assessment L great toe MTP joint stiffness PT-OP-G Mobility & Gait Start: 04/16/18 08:24 Freq: Status: Active Protocol: Document 04/16/18 13:45 AMB (Rec: 04/17/18 10:30 AMB [email or web address]) OP Gait Assessment Comments Gait Comments Pt ambulates with hiking boots , slight antalgic gait, but no assistive device. PT-OP-J Posture/Palpation/Skin Start: 04/16/18 08:24 Freq: Status: Active Protocol: Document 04/16/18 13:45 AMB (Rec: 04/17/18 10:30 AMB [email or web address]) Posture Evaluation Comments Posture Comments High arches PT-OP-K Range of Motion Start: 04/16/18 08:24 Freq: Status: Active Protocol: Document 04/16/18 13:45 AMB (Rec: 04/17/18 10:30 AMB [email or web address]) Ankle and Foot Goniometric Range of Motion Ankle and Foot Measured in Degrees Right Passive Testing Position Supine Dorsiflexion with Knee Extended 5 Plantarflexion 50 Inversion 35 Eversion 25 Left Passive Dorsiflexion with Knee Extended 5 Plantarflexion 50 Inversion 30 Eversion 25 Ankle and Foot ROM Limitations Comments missing 7 degrees dorsiflexion from neutral with knee extended PT-OP-M Strength Start: 04/16/18 08:24 Freq: Status: Active Protocol: Document 08/02/18 10:03 AMB (Rec: 08/02/18 10:10 AMB [id number]) Ankle/Foot Strength Ankle and Foot Manual Muscle Testing Left Dorsiflexion (L4) 4 Good Plantarflexion (S1) 4 Good Inversion 4 Good Eversion (S1) 4+ Good+ PT-OP-Q Treatments Start: 04/16/18 08:24 Freq: Status: Active Protocol: Document 08/09/18 11:16 SA (Rec: 08/09/18 11:26 SA [email or web address]) Gym Equipment Shuttle Balance 1 Details Ant/Post and Lateral Comments Red. NBOS & stride stance with ant/post. WBOS with lateral Therapeutic Exercises Supine Exercises 7 Supine Exercise Name Calf stretch Side left Equipment Used Passive stretching Reps/Minutes 3x30 Comments long sitting 5 Supine Exercise Name Ankle 4way Side left Resistance #3 band Reps/Minutes x20 each Comments Inv/Ever/DF/PF 4 Supine Exercise Name toe flexion (I-V) Reps/Minutes x10 Comments manual resistance Sitting Exercises 1 Sitting Exercise Name Isolated great toe ext Side left Reps/Minutes x20 Standing Exercises 4 Standing Exercise Name Gastroc/soleus stretch Side left Equipment Used JOSE, off of stair, knee bent Reps/Minutes 2x45 each 3 Standing Exercise Name Calf Raises Reps/Minutes x20 2 Standing Exercise Name Eccentric Calf Lower Side left Reps/Minutes x15 Manual Therapy Treatment Soft Tissue Mobilization 1 Mobilization Type Myofascial Release Intensity/Depth Moderate Body Position Supine Comments Tenderness with mod-deep pressure at medial arch. Joint Mobilizations L great toe Joint Intermetatarsal Direction AP, PA Grade III Body Position Supine PT-OP-R Modalities Start: 04/16/18 08:24 Freq: Status: Active Protocol: Document 08/09/18 11:16 (Rec: 08/09/18 11:26 [email or web address]) Ultrasound Therapy Treatment Left Volar Foot Treatment Duration (minutes) 8 Patient Position Supine Coupling Medium Ultrasound Gel Frequency Setting (mHz) 1 Intensity Setting (w/cm2) 1.5 PT-OP-T Assessment and Plan Start: 04/16/18 08:24 Freq: Status: Active Protocol: Document 08/09/18 11:16 (Rec: 08/09/18 11:26 [email or web address]) Physical Therapy Assessment Assessment Summary Assessment Pt shows consistent improvement in strength/ stability and tolerance of uneven terrain hiking. Continues to do HEP daily. Physical Therapy Plan Next Visit Focus/Plan Next Note Type Treatment Note Next Visit Plan Continue with intrinsic foot strengthening.
--- NOTE | 2018-08-13 15:40 | PT.OTN ---
Current Diagnoses Plantar fascial fibromatosis (08/13/18) Physical Therapy Treatment Note PT-OP-A Visit Information Start: 04/16/18 08:24 Freq: Status: Active Protocol: Document 08/13/18 13:45 AMB (Rec: 08/13/18 15:39 AMB [email or web address]) Out-Patient Physical Therapy Visit Information Visit Information Visit Type Treatment Note Visit Start Time 13:45 Visit Stop Time 14:30 Total Visit Minutes 45 Visit Number 26 Number of REWORK MACHINE OPERATOR Visits 0 PT-OP-B Current Condition Start: 04/16/18 08:24 Freq: Status: Active Protocol: Document 04/16/18 13:45 AMB (Rec: 04/17/18 08:15 AMB [email or web address]) Current Condition History of Current Condition Onset Date September 2017 Current Complaints Left heel pain/ tightness History of Current Condition The patient reports that in September he fell onto his left foot from a 3 foot height. He kept hiking and backpacking until December, when the pain got really bad and he had to stop. Per his report he intially had a few small stress fractures, but those are now healed. He was given a boot and has been weaning off of it, and now just uses it as needed with pain. 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 He used to be on extensive opiates for the pain from being unable to have graft surgery on the left, but has been trained in hypnotic pain relief for this. He does use opiates for the pancreatic pain. PT-OP-C Subjective Start: 04/16/18 08:24 Freq: Status: Active Protocol: Document 08/13/18 13:45 AMB (Rec: 08/13/18 15:39 AMB [email or web address]) OP-PT Subjective Patient Comments Patient Comments Pt tolerated going fishing ( standing, walking over uneven terrain) for 1.5 hours this morning. PT-OP-D Balance Start: 04/16/18 08:24 Freq: Status: Active Protocol: Document 04/16/18 13:45 AMB (Rec: 04/17/18 16:03 AMB [email or web address]) Balance Tests Single Limb Standing Single Limb- Right 3 seconds Single Limb- Left pain limits PT-OP-F Manual Assessment Start: 04/16/18 08:24 Freq: Status: Active Protocol: Document 05/02/18 13:45 RCC (Rec: 05/02/18 14:26 RCC [email or web address]) Manual Assessments Soft Tissue Assessment Soft Tissue Mobility Assessment Mod tension L plantar fascia Joint Mobility Assessment Joint Mobility Assessment L great toe MTP joint stiffness PT-OP-G Mobility & Gait Start: 04/16/18 08:24 Freq: Status: Active Protocol: Document 04/16/18 13:45 AMB (Rec: 04/17/18 10:30 AMB [email or web address]) OP Gait Assessment Comments Gait Comments Pt ambulates with hiking boots , slight antalgic gait, but no assistive device. PT-OP-J Posture/Palpation/Skin Start: 04/16/18 08:24 Freq: Status: Active Protocol: Document 04/16/18 13:45 AMB (Rec: 04/17/18 10:30 AMB [email or web address]) Posture Evaluation Comments Posture Comments High arches PT-OP-K Range of Motion Start: 04/16/18 08:24 Freq: Status: Active Protocol: Document 04/16/18 13:45 AMB (Rec: 04/17/18 10:30 AMB [email or web address]) Ankle and Foot Goniometric Range of Motion Ankle and Foot Measured in Degrees Right Passive Testing Position Supine Dorsiflexion with Knee Extended 5 Plantarflexion 50 Inversion 35 Eversion 25 Left Passive Dorsiflexion with Knee Extended 5 Plantarflexion 50 Inversion 30 Eversion 25 Ankle and Foot ROM Limitations Comments missing 7 degrees dorsiflexion from neutral with knee extended PT-OP-M Strength Start: 04/16/18 08:24 Freq: Status: Active Protocol: Document 08/02/18 10:03 AMB (Rec: 08/02/18 10:10 AMB [id number]) Ankle/Foot Strength Ankle and Foot Manual Muscle Testing Left Dorsiflexion (L4) 4 Good Plantarflexion (S1) 4 Good Inversion 4 Good Eversion (S1) 4+ Good+ PT-OP-Q Treatments Start: 04/16/18 08:24 Freq: Status: Active Protocol: Document 08/13/18 13:45 AMB (Rec: 08/13/18 15:39 AMB [email or web address]) Gym Equipment Shuttle Balance 1 Details Ant/Post and Lateral Comments Red. NBOS & stride stance with ant/post. WBOS with lateral Therapeutic Exercises Supine Exercises 7 Supine Exercise Name Calf stretch Side left Equipment Used Passive stretching Reps/Minutes 3x30 Comments long sitting 4 Supine Exercise Name toe flexion (I-V) Reps/Minutes x10 Comments manual resistance Sitting Exercises 1 Sitting Exercise Name Isolated great toe ext Side left Reps/Minutes x20 Standing Exercises 4 Standing Exercise Name Gastroc/soleus stretch Side left Equipment Used JOSE, off of stair, knee bent Reps/Minutes 2x45 each 3 Standing Exercise Name Calf Raises Reps/Minutes x20 2 Standing Exercise Name Eccentric Calf Lower Side left Reps/Minutes x15 Manual Therapy Treatment Soft Tissue Mobilization 1 Mobilization Type Myofascial Release Intensity/Depth Moderate Body Position Supine Comments Tenderness with mod-deep pressure Joint Mobilizations L great toe Joint Intermetatarsal Direction AP, PA Grade III Body Position Supine PT-OP-R Modalities Start: 04/16/18 08:24 Freq: Status: Active Protocol: Document 08/13/18 13:45 AMB (Rec: 08/13/18 15:39 AMB [email or web address]) Ultrasound Therapy Treatment Left Volar Foot Treatment Duration (minutes) 4 Patient Position Supine Coupling Medium Ultrasound Gel Frequency Setting (mHz) 1 Intensity Setting (w/cm2) 1.5 PT-OP-T Assessment and Plan Start: 04/16/18 08:24 Freq: Status: Active Protocol: Document 08/13/18 13:45 AMB (Rec: 08/13/18 15:39 AMB [email or web address]) Physical Therapy Assessment Assessment Summary Assessment Pt with tenderness today, but overall less intense over time . Continue to watch pt's recovery, but if continues to improve, could consider 1x/ week. Physical Therapy Plan Next Visit Focus/Plan Next Note Type Treatment Note Next Visit Plan Continue with intrinsic foot strengthening.
--- NOTE | 2018-08-16 16:19 | PT.OTN ---
Current Diagnoses Plantar fascial fibromatosis (08/16/18) Physical Therapy Treatment Note PT-OP-A Visit Information Start: 04/16/18 08:24 Freq: Status: Active Protocol: Document 08/16/18 08:45 AMB (Rec: 08/16/18 16:17 AMB [email or web address]) Out-Patient Physical Therapy Visit Information Visit Information Visit Type Treatment Note Visit Start Time 08:45 Visit Stop Time 09:30 Total Visit Minutes 45 Visit Number 27 Number of THICKENER OPERATOR Visits 0 PT-OP-B Current Condition Start: 04/16/18 08:24 Freq: Status: Active Protocol: Document 04/16/18 13:45 AMB (Rec: 04/17/18 08:15 AMB [email or web address]) Current Condition History of Current Condition Onset Date September 2017 Current Complaints Left heel pain/ tightness History of Current Condition The patient reports that in September he fell onto his left foot from a 3 foot height. He kept hiking and backpacking until December, when the pain got really bad and he had to stop. Per his report he intially had a few small stress fractures, but those are now healed. He was given a boot and has been weaning off of it, and now just uses it as needed with pain. 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 He used to be on extensive opiates for the pain from being unable to have graft surgery on the left, but has been trained in hypnotic pain relief for this. He does use opiates for the pancreatic pain. PT-OP-C Subjective Start: 04/16/18 08:24 Freq: Status: Active Protocol: Document 08/16/18 08:45 AMB (Rec: 08/16/18 16:17 AMB [email or web address]) OP-PT Subjective Patient Comments Patient Comments Pt walked for about a mile plus fishing and tolerated it well. PT-OP-D Balance Start: 04/16/18 08:24 Freq: Status: Active Protocol: Document 04/16/18 13:45 AMB (Rec: 04/17/18 16:03 AMB [email or web address]) Balance Tests Single Limb Standing Single Limb- Right 3 seconds Single Limb- Left pain limits PT-OP-F Manual Assessment Start: 04/16/18 08:24 Freq: Status: Active Protocol: Document 05/02/18 13:45 RCC (Rec: 05/02/18 14:26 RCC [email or web address]) Manual Assessments Soft Tissue Assessment Soft Tissue Mobility Assessment Mod tension L plantar fascia Joint Mobility Assessment Joint Mobility Assessment L great toe MTP joint stiffness PT-OP-G Mobility & Gait Start: 04/16/18 08:24 Freq: Status: Active Protocol: Document 04/16/18 13:45 AMB (Rec: 04/17/18 10:30 AMB [email or web address]) OP Gait Assessment Comments Gait Comments Pt ambulates with hiking boots , slight antalgic gait, but no assistive device. PT-OP-J Posture/Palpation/Skin Start: 04/16/18 08:24 Freq: Status: Active Protocol: Document 04/16/18 13:45 AMB (Rec: 04/17/18 10:30 AMB [email or web address]) Posture Evaluation Comments Posture Comments High arches PT-OP-K Range of Motion Start: 04/16/18 08:24 Freq: Status: Active Protocol: Document 04/16/18 13:45 AMB (Rec: 04/17/18 10:30 AMB [email or web address]) Ankle and Foot Goniometric Range of Motion Ankle and Foot Measured in Degrees Right Passive Testing Position Supine Dorsiflexion with Knee Extended 5 Plantarflexion 50 Inversion 35 Eversion 25 Left Passive Dorsiflexion with Knee Extended 5 Plantarflexion 50 Inversion 30 Eversion 25 Ankle and Foot ROM Limitations Comments missing 7 degrees dorsiflexion from neutral with knee extended PT-OP-M Strength Start: 04/16/18 08:24 Freq: Status: Active Protocol: Document 08/02/18 10:03 AMB (Rec: 08/02/18 10:10 AMB [id number]) Ankle/Foot Strength Ankle and Foot Manual Muscle Testing Left Dorsiflexion (L4) 4 Good Plantarflexion (S1) 4 Good Inversion 4 Good Eversion (S1) 4+ Good+ PT-OP-Q Treatments Start: 04/16/18 08:24 Freq: Status: Active Protocol: Document 08/16/18 08:45 AMB (Rec: 08/16/18 16:17 AMB [email or web address]) Gym Equipment Shuttle Balance 1 Details Ant/Post and Lateral Comments Red. NBOS & stride stance with ant/post. WBOS with lateral Therapeutic Exercises Supine Exercises 7 Supine Exercise Name Calf stretch Side left Equipment Used Passive stretching Reps/Minutes 3x30 Comments long sitting 4 Supine Exercise Name toe flexion (I-V) Reps/Minutes x10 Comments manual resistance Sitting Exercises 1 Sitting Exercise Name Isolated great toe ext Side left Reps/Minutes x20 Standing Exercises 4 Standing Exercise Name Gastroc/soleus stretch Side left Equipment Used JOSE, off of stair, knee bent Reps/Minutes 2x45 each 3 Standing Exercise Name Calf Raises Reps/Minutes x20 2 Standing Exercise Name Eccentric Calf Lower Side left Reps/Minutes x15 Manual Therapy Treatment Soft Tissue Mobilization 1 Mobilization Type Myofascial Release Intensity/Depth Moderate Body Position Supine Comments Tenderness with mod-deep pressure Joint Mobilizations L great toe Joint Intermetatarsal Direction AP, PA Grade III Body Position Supine PT-OP-R Modalities Start: 04/16/18 08:24 Freq: Status: Active Protocol: Document 08/16/18 16:17 AMB (Rec: 08/16/18 16:18 AMB [email or web address]) Ultrasound Therapy Treatment Left Volar Foot Treatment Duration (minutes) 4 Patient Position Supine Coupling Medium Ultrasound Gel Frequency Setting (mHz) 1 Intensity Setting (w/cm2) 1.5 PT-OP-T Assessment and Plan Start: 04/16/18 08:24 Freq: Status: Active Protocol: Document 08/16/18 08:45 AMB (Rec: 08/16/18 16:17 AMB [email or web address]) Physical Therapy Assessment Assessment Summary Assessment Less tenderness today, pt continues to need cueing for intrinsinc toe strengthening. Pt needs to do more single leg heel raises. Physical Therapy Plan Next Visit Focus/Plan Next Note Type Treatment Note Next Visit Plan Continue with intrinsic foot strengthening.
--- NOTE | 2018-08-20 16:34 | PT.OTN ---
Current Diagnoses Plantar fascial fibromatosis (08/20/18) Physical Therapy Treatment Note PT-OP-A Visit Information Start: 04/16/18 08:24 Freq: Status: Active Protocol: Document 08/20/18 13:45 AMB (Rec: 08/20/18 16:29 AMB [email or web address]) Out-Patient Physical Therapy Visit Information Visit Information Visit Type Treatment Note Visit Start Time 13:45 Visit Stop Time 14:30 Total Visit Minutes 45 Visit Number 28 Number of ELECTRO OPTICS ENGINEER Visits 0 PT-OP-B Current Condition Start: 04/16/18 08:24 Freq: Status: Active Protocol: Document 04/16/18 13:45 AMB (Rec: 04/17/18 08:15 AMB [email or web address]) Current Condition History of Current Condition Onset Date September 2017 Current Complaints Left heel pain/ tightness History of Current Condition The patient reports that in September he fell onto his left foot from a 3 foot height. He kept hiking and backpacking until December, when the pain got really bad and he had to stop. Per his report he intially had a few small stress fractures, but those are now healed. He was given a boot and has been weaning off of it, and now just uses it as needed with pain. 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 He used to be on extensive opiates for the pain from being unable to have graft surgery on the left, but has been trained in hypnotic pain relief for this. He does use opiates for the pancreatic pain. PT-OP-C Subjective Start: 04/16/18 08:24 Freq: Status: Active Protocol: Document 08/20/18 13:45 AMB (Rec: 08/20/18 16:29 AMB [email or web address]) OP-PT Subjective Patient Comments Patient Comments Alfredo's stomach is bothering him more today, went fishing and walked a mile again and that was fine. PT-OP-D Balance Start: 04/16/18 08:24 Freq: Status: Active Protocol: Document 04/16/18 13:45 AMB (Rec: 04/17/18 16:03 AMB [email or web address]) Balance Tests Single Limb Standing Single Limb- Right 3 seconds Single Limb- Left pain limits PT-OP-F Manual Assessment Start: 04/16/18 08:24 Freq: Status: Active Protocol: Document 05/02/18 13:45 RCC (Rec: 05/02/18 14:26 RCC [email or web address]) Manual Assessments Soft Tissue Assessment Soft Tissue Mobility Assessment Mod tension L plantar fascia Joint Mobility Assessment Joint Mobility Assessment L great toe MTP joint stiffness PT-OP-G Mobility & Gait Start: 04/16/18 08:24 Freq: Status: Active Protocol: Document 04/16/18 13:45 AMB (Rec: 04/17/18 10:30 AMB [email or web address]) OP Gait Assessment Comments Gait Comments Pt ambulates with hiking boots , slight antalgic gait, but no assistive device. PT-OP-J Posture/Palpation/Skin Start: 04/16/18 08:24 Freq: Status: Active Protocol: Document 04/16/18 13:45 AMB (Rec: 04/17/18 10:30 AMB [email or web address]) Posture Evaluation Comments Posture Comments High arches PT-OP-K Range of Motion Start: 04/16/18 08:24 Freq: Status: Active Protocol: Document 04/16/18 13:45 AMB (Rec: 04/17/18 10:30 AMB [email or web address]) Ankle and Foot Goniometric Range of Motion Ankle and Foot Measured in Degrees Right Passive Testing Position Supine Dorsiflexion with Knee Extended 5 Plantarflexion 50 Inversion 35 Eversion 25 Left Passive Dorsiflexion with Knee Extended 5 Plantarflexion 50 Inversion 30 Eversion 25 Ankle and Foot ROM Limitations Comments missing 7 degrees dorsiflexion from neutral with knee extended PT-OP-M Strength Start: 04/16/18 08:24 Freq: Status: Active Protocol: Document 08/02/18 10:03 AMB (Rec: 08/02/18 10:10 AMB [id number]) Ankle/Foot Strength Ankle and Foot Manual Muscle Testing Left Dorsiflexion (L4) 4 Good Plantarflexion (S1) 4 Good Inversion 4 Good Eversion (S1) 4+ Good+ PT-OP-Q Treatments Start: 04/16/18 08:24 Freq: Status: Active Protocol: Document 08/20/18 13:45 AMB (Rec: 08/20/18 16:29 AMB [email or web address]) Therapeutic Exercises Supine Exercises 7 Supine Exercise Name Calf stretch Side left Equipment Used Passive stretching Reps/Minutes 3x30 Comments long sitting 4 Supine Exercise Name toe flexion (I-V) Reps/Minutes x10 Comments manual resistance Sitting Exercises 1 Sitting Exercise Name Isolated great toe ext Side left Reps/Minutes x20 Standing Exercises 4 Standing Exercise Name Gastroc/soleus stretch Side left Equipment Used JOSE, off of stair, knee bent Reps/Minutes 2x45 each 3 Standing Exercise Name Calf Raises Reps/Minutes x20 2 Standing Exercise Name Eccentric Calf Lower Side left Reps/Minutes x15 Manual Therapy Treatment Soft Tissue Mobilization 1 Mobilization Type Myofascial Release Intensity/Depth Moderate Body Position Supine Comments Tenderness with mod-deep pressure Joint Mobilizations L great toe Joint Intermetatarsal Direction AP, PA Grade III Body Position Supine PT-OP-R Modalities Start: 04/16/18 08:24 Freq: Status: Active Protocol: Document 08/20/18 16:29 AMB (Rec: 08/20/18 16:34 AMB [email or web address]) Ultrasound Therapy Treatment Left Volar Foot Treatment Duration (minutes) 4 Patient Position Supine Coupling Medium Ultrasound Gel Frequency Setting (mHz) 1 Intensity Setting (w/cm2) 1.5 PT-OP-T Assessment and Plan Start: 04/16/18 08:24 Freq: Status: Active Protocol: Document 08/20/18 13:45 AMB (Rec: 08/20/18 16:29 AMB [email or web address]) Physical Therapy Assessment Assessment Summary Assessment Consider decreasing frequency to 1x/week, as pt is doing well, with gentle increase in hiking distance. Physical Therapy Plan Next Visit Focus/Plan Next Note Type Treatment Note Next Visit Plan Continue with intrinsic foot strengthening.
--- NOTE | 2018-08-23 16:00 | PT.OTN ---
Current Diagnoses Plantar fascial fibromatosis (08/23/18) Physical Therapy Treatment Note PT-OP-A Visit Information Start: 04/16/18 08:24 Freq: Status: Active Protocol: Document 08/23/18 09:30 AMB (Rec: 08/26/18 07:05 AMB [email or web address]) Out-Patient Physical Therapy Visit Information Visit Information Visit Type Treatment Note Visit Start Time 09:30 Visit Stop Time 10:15 Total Visit Minutes 45 Visit Number 29 Number of ONLINE BANKING SPECIALIST Visits 0 PT-OP-B Current Condition Start: 04/16/18 08:24 Freq: Status: Active Protocol: Document 04/16/18 13:45 AMB (Rec: 04/17/18 08:15 AMB [email or web address]) Current Condition History of Current Condition Onset Date September 2017 Current Complaints Left heel pain/ tightness History of Current Condition The patient reports that in September he fell onto his left foot from a 3 foot height. He kept hiking and backpacking until December, when the pain got really bad and he had to stop. Per his report he intially had a few small stress fractures, but those are now healed. He was given a boot and has been weaning off of it, and now just uses it as needed with pain. 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 He used to be on extensive opiates for the pain from being unable to have graft surgery on the left, but has been trained in hypnotic pain relief for this. He does use opiates for the pancreatic pain. PT-OP-C Subjective Start: 04/16/18 08:24 Freq: Status: Active Protocol: Document 08/23/18 09:30 AMB (Rec: 08/26/18 07:05 AMB [email or web address]) OP-PT Subjective Patient Comments Patient Comments Pt states he is having more pain today. Went fishing yesterday and foot was more painful. Has tried to stretch , but has not done tennis ball . PT-OP-D Balance Start: 04/16/18 08:24 Freq: Status: Active Protocol: Document 04/16/18 13:45 AMB (Rec: 04/17/18 16:03 AMB [email or web address]) Balance Tests Single Limb Standing Single Limb- Right 3 seconds Single Limb- Left pain limits PT-OP-F Manual Assessment Start: 04/16/18 08:24 Freq: Status: Active Protocol: Document 05/02/18 13:45 RCC (Rec: 05/02/18 14:26 RCC [email or web address]) Manual Assessments Soft Tissue Assessment Soft Tissue Mobility Assessment Mod tension L plantar fascia Joint Mobility Assessment Joint Mobility Assessment L great toe MTP joint stiffness PT-OP-G Mobility & Gait Start: 04/16/18 08:24 Freq: Status: Active Protocol: Document 04/16/18 13:45 AMB (Rec: 04/17/18 10:30 AMB [email or web address]) OP Gait Assessment Comments Gait Comments Pt ambulates with hiking boots , slight antalgic gait, but no assistive device. PT-OP-J Posture/Palpation/Skin Start: 04/16/18 08:24 Freq: Status: Active Protocol: Document 04/16/18 13:45 AMB (Rec: 04/17/18 10:30 AMB [email or web address]) Posture Evaluation Comments Posture Comments High arches PT-OP-K Range of Motion Start: 04/16/18 08:24 Freq: Status: Active Protocol: Document 04/16/18 13:45 AMB (Rec: 04/17/18 10:30 AMB [email or web address]) Ankle and Foot Goniometric Range of Motion Ankle and Foot Measured in Degrees Right Passive Testing Position Supine Dorsiflexion with Knee Extended 5 Plantarflexion 50 Inversion 35 Eversion 25 Left Passive Dorsiflexion with Knee Extended 5 Plantarflexion 50 Inversion 30 Eversion 25 Ankle and Foot ROM Limitations Comments missing 7 degrees dorsiflexion from neutral with knee extended PT-OP-M Strength Start: 04/16/18 08:24 Freq: Status: Active Protocol: Document 08/02/18 10:03 AMB (Rec: 08/02/18 10:10 AMB [id number]) Ankle/Foot Strength Ankle and Foot Manual Muscle Testing Left Dorsiflexion (L4) 4 Good Plantarflexion (S1) 4 Good Inversion 4 Good Eversion (S1) 4+ Good+ PT-OP-Q Treatments Start: 04/16/18 08:24 Freq: Status: Active Protocol: Document 08/23/18 09:30 AMB (Rec: 08/26/18 07:05 AMB [email or web address]) Gym Equipment Shuttle Balance 1 Details Ant/Post and Lateral Comments Red. NBOS & stride stance with ant/post. WBOS with lateral Therapeutic Exercises Supine Exercises 4 Supine Exercise Name toe flexion (I-V) Reps/Minutes x10 Comments manual resistance Sitting Exercises 1 Sitting Exercise Name Isolated great toe ext Side left Reps/Minutes x20 Standing Exercises 4 Standing Exercise Name Gastroc/soleus stretch Side left Equipment Used JOSE, off of stair, knee bent Reps/Minutes 2x45 each 2 Standing Exercise Name Eccentric Calf Lower Side left Reps/Minutes x15 Manual Therapy Treatment Soft Tissue Mobilization 1 Mobilization Type Myofascial Release Intensity/Depth Moderate Body Position Supine Comments Tenderness with mod-deep pressure Joint Mobilizations L great toe Joint Intermetatarsal Direction AP, PA Grade III Body Position Supine Manual Techniques 1 Type great toe mobilization Comments AP, PA, PROm PT-OP-R Modalities Start: 04/16/18 08:24 Freq: Status: Active Protocol: Document 08/23/18 09:30 AMB (Rec: 08/26/18 07:05 AMB [email or web address]) Ultrasound Therapy Treatment Left Volar Foot Treatment Duration (minutes) 4 Patient Position Supine Coupling Medium Ultrasound Gel Frequency Setting (mHz) 1 Intensity Setting (w/cm2) 1.5 PT-OP-T Assessment and Plan Start: 04/16/18 08:24 Freq: Status: Active Protocol: Document 08/23/18 09:30 AMB (Rec: 08/26/18 07:05 AMB [email or web address]) Physical Therapy Assessment Assessment Summary Assessment Pt notes improved mobility after just stretching, encouraged to do at least 15 minutes of stretching per day, not just stretching for 30 seconds here and there. Physical Therapy Plan Next Visit Focus/Plan Next Note Type Treatment Note Next Visit Plan Continue with intrinsic foot strengthening.
--- NOTE | 2018-09-02 16:11 | PT.OTN ---
Current Diagnoses Plantar fascial fibromatosis (09/02/18) Physical Therapy Treatment Note PT-OP-A Visit Information Start: 04/16/18 08:24 Freq: Status: Active Protocol: Document 09/02/18 09:45 AMB (Rec: 09/02/18 16:09 AMB [email or web address]) Out-Patient Physical Therapy Visit Information Visit Information Visit Type Treatment Note Visit Start Time 09:45 Visit Stop Time 10:30 Total Visit Minutes 45 Visit Number 30 Number of IMPREGNATOR HELPER Visits 0 PT-OP-B Current Condition Start: 04/16/18 08:24 Freq: Status: Active Protocol: Document 04/16/18 13:45 AMB (Rec: 04/17/18 08:15 AMB [email or web address]) Current Condition History of Current Condition Onset Date September 2017 Current Complaints Left heel pain/ tightness History of Current Condition The patient reports that in September he fell onto his left foot from a 3 foot height. He kept hiking and backpacking until December, when the pain got really bad and he had to stop. Per his report he intially had a few small stress fractures, but those are now healed. He was given a boot and has been weaning off of it, and now just uses it as needed with pain. 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 He used to be on extensive opiates for the pain from being unable to have graft surgery on the left, but has been trained in hypnotic pain relief for this. He does use opiates for the pancreatic pain. PT-OP-C Subjective Start: 04/16/18 08:24 Freq: Status: Active Protocol: Document 09/02/18 09:45 AMB (Rec: 09/02/18 16:09 AMB [email or web address]) OP-PT Subjective Patient Comments Patient Comments Pt is doing better today. Having a week off of PT went well. He was able to hike 3 miles without an increase in pain. He has been doing his stretches and his tennis ball. PT-OP-D Balance Start: 04/16/18 08:24 Freq: Status: Active Protocol: Document 04/16/18 13:45 AMB (Rec: 04/17/18 16:03 AMB [email or web address]) Balance Tests Single Limb Standing Single Limb- Right 3 seconds Single Limb- Left pain limits PT-OP-F Manual Assessment Start: 04/16/18 08:24 Freq: Status: Active Protocol: Document 05/02/18 13:45 RCC (Rec: 05/02/18 14:26 RCC [email or web address]) Manual Assessments Soft Tissue Assessment Soft Tissue Mobility Assessment Mod tension L plantar fascia Joint Mobility Assessment Joint Mobility Assessment L great toe MTP joint stiffness PT-OP-G Mobility & Gait Start: 04/16/18 08:24 Freq: Status: Active Protocol: Document 04/16/18 13:45 AMB (Rec: 04/17/18 10:30 AMB [email or web address]) OP Gait Assessment Comments Gait Comments Pt ambulates with hiking boots , slight antalgic gait, but no assistive device. PT-OP-J Posture/Palpation/Skin Start: 04/16/18 08:24 Freq: Status: Active Protocol: Document 04/16/18 13:45 AMB (Rec: 04/17/18 10:30 AMB [email or web address]) Posture Evaluation Comments Posture Comments High arches PT-OP-K Range of Motion Start: 04/16/18 08:24 Freq: Status: Active Protocol: Document 04/16/18 13:45 AMB (Rec: 04/17/18 10:30 AMB [email or web address]) Ankle and Foot Goniometric Range of Motion Ankle and Foot Measured in Degrees Right Passive Testing Position Supine Dorsiflexion with Knee Extended 5 Plantarflexion 50 Inversion 35 Eversion 25 Left Passive Dorsiflexion with Knee Extended 5 Plantarflexion 50 Inversion 30 Eversion 25 Ankle and Foot ROM Limitations Comments missing 7 degrees dorsiflexion from neutral with knee extended PT-OP-M Strength Start: 04/16/18 08:24 Freq: Status: Active Protocol: Document 08/02/18 10:03 AMB (Rec: 08/02/18 10:10 AMB [id number]) Ankle/Foot Strength Ankle and Foot Manual Muscle Testing Left Dorsiflexion (L4) 4 Good Plantarflexion (S1) 4 Good Inversion 4 Good Eversion (S1) 4+ Good+ PT-OP-Q Treatments Start: 04/16/18 08:24 Freq: Status: Active Protocol: Document 09/02/18 09:45 AMB (Rec: 06/10/19 16:09 AMB [email or web address]) Gym Equipment Shuttle Balance 1 Details Ant/Post and Lateral Comments Red. NBOS & stride stance with ant/post. WBOS with lateral Therapeutic Exercises Standing Exercises 4 Standing Exercise Name Gastroc/soleus stretch Side left Equipment Used JOSE, off of stair, knee bent Reps/Minutes 2x45 each 2 Standing Exercise Name Eccentric Calf Lower Side left Reps/Minutes x15 Manual Therapy Treatment Soft Tissue Mobilization 1 Mobilization Type Myofascial Release Intensity/Depth Moderate Body Position Supine Comments Tenderness with mod-deep pressure Manual Techniques 1 Type great toe mobilization Comments AP, PA, PROm PT-OP-R Modalities Start: 04/16/18 08:24 Freq: Status: Active Protocol: Document 09/02/18 09:45 AMB (Rec: 09/02/18 16:10 AMB [email or web address]) Ultrasound Therapy Treatment Left Volar Foot Treatment Duration (minutes) 4 Patient Position Supine Coupling Medium Ultrasound Gel Frequency Setting (mHz) 1 Intensity Setting (w/cm2) 1.5 PT-OP-T Assessment and Plan Start: 04/16/18 08:24 Freq: Status: Active Protocol: Document 09/02/18 09:45 AMB (Rec: 09/02/18 16:09 AMB [email or web address]) Physical Therapy Assessment Assessment Summary Assessment Pt admits he has not been doing as much of strengthening as he should be but is happy that his pain is better with walking. Arch pain much better, heel pain is still there a little. Can still increase pain significantly with palpation. Physical Therapy Plan Next Visit Focus/Plan Next Note Type Treatment Note Next Visit Plan Continue with intrinsic foot strengthening.
--- NOTE | 2018-09-04 10:23 | PT.OTN ---
Current Diagnoses Plantar fascial fibromatosis (09/04/18) Physical Therapy Treatment Note PT-OP-A Visit Information Start: 04/16/18 08:24 Freq: Status: Active Protocol: Document 09/04/18 08:15 AMB (Rec: 09/04/18 10:23 AMB [email or web address]) Out-Patient Physical Therapy Visit Information Visit Information Visit Type Treatment Note Visit Start Time 09:45 Visit Stop Time 10:30 Total Visit Minutes 45 Visit Number 31 Number of RITUAL CIRCUMCISER Visits 0 PT-OP-B Current Condition Start: 04/16/18 08:24 Freq: Status: Active Protocol: Document 04/16/18 13:45 AMB (Rec: 04/17/18 08:15 AMB [email or web address]) Current Condition History of Current Condition Onset Date September 2017 Current Complaints Left heel pain/ tightness History of Current Condition The patient reports that in September he fell onto his left foot from a 3 foot height. He kept hiking and backpacking until December, when the pain got really bad and he had to stop. Per his report he intially had a few small stress fractures, but those are now healed. He was given a boot and has been weaning off of it, and now just uses it as needed with pain. 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 He used to be on extensive opiates for the pain from being unable to have graft surgery on the left, but has been trained in hypnotic pain relief for this. He does use opiates for the pancreatic pain. PT-OP-C Subjective Start: 04/16/18 08:24 Freq: Status: Active Protocol: Document 09/04/18 08:15 AMB (Rec: 09/04/18 10:23 AMB [email or web address]) OP-PT Subjective Patient Comments Patient Comments Pt went on a 2 mile hike yesterday and did not have any pain. States heel is a bit tender but was able to hike without an increase in pain. PT-OP-D Balance Start: 04/16/18 08:24 Freq: Status: Active Protocol: Document 04/16/18 13:45 AMB (Rec: 04/17/18 16:03 AMB [email or web address]) Balance Tests Single Limb Standing Single Limb- Right 3 seconds Single Limb- Left pain limits PT-OP-F Manual Assessment Start: 04/16/18 08:24 Freq: Status: Active Protocol: Document 05/02/18 13:45 RCC (Rec: 05/02/18 14:26 RCC [email or web address]) Manual Assessments Soft Tissue Assessment Soft Tissue Mobility Assessment Mod tension L plantar fascia Joint Mobility Assessment Joint Mobility Assessment L great toe MTP joint stiffness PT-OP-G Mobility & Gait Start: 04/16/18 08:24 Freq: Status: Active Protocol: Document 04/16/18 13:45 AMB (Rec: 04/17/18 10:30 AMB [email or web address]) OP Gait Assessment Comments Gait Comments Pt ambulates with hiking boots , slight antalgic gait, but no assistive device. PT-OP-J Posture/Palpation/Skin Start: 04/16/18 08:24 Freq: Status: Active Protocol: Document 04/16/18 13:45 AMB (Rec: 04/17/18 10:30 AMB [email or web address]) Posture Evaluation Comments Posture Comments High arches PT-OP-K Range of Motion Start: 04/16/18 08:24 Freq: Status: Active Protocol: Document 04/16/18 13:45 AMB (Rec: 04/17/18 10:30 AMB [email or web address]) Ankle and Foot Goniometric Range of Motion Ankle and Foot Measured in Degrees Right Passive Testing Position Supine Dorsiflexion with Knee Extended 5 Plantarflexion 50 Inversion 35 Eversion 25 Left Passive Dorsiflexion with Knee Extended 5 Plantarflexion 50 Inversion 30 Eversion 25 Ankle and Foot ROM Limitations Comments missing 7 degrees dorsiflexion from neutral with knee extended PT-OP-M Strength Start: 04/16/18 08:24 Freq: Status: Active Protocol: Document 08/02/18 10:03 AMB (Rec: 08/02/18 10:10 AMB [email or web address]) Ankle/Foot Strength Ankle and Foot Manual Muscle Testing Left Dorsiflexion (L4) 4 Good Plantarflexion (S1) 4 Good Inversion 4 Good Eversion (S1) 4+ Good+ PT-OP-Q Treatments Start: 04/16/18 08:24 Freq: Status: Active Protocol: Document 09/04/18 08:15 AMB (Rec: 09/04/18 10:23 AMB [email or web address]) Gym Equipment Shuttle Balance 1 Details Ant/Post and Lateral Comments Red. NBOS & stride stance with ant/post. WBOS with lateral Therapeutic Exercises Standing Exercises 4 Standing Exercise Name Gastroc/soleus stretch Side left Equipment Used JOSE, off of stair, knee bent Reps/Minutes 2x45 each 2 Standing Exercise Name Eccentric Calf Lower Side left Reps/Minutes x15 Manual Therapy Treatment Soft Tissue Mobilization 1 Mobilization Type Myofascial Release Intensity/Depth Moderate Body Position Supine Comments Tenderness with mod-deep pressure Manual Techniques 1 Type great toe mobilization Comments AP, PA, PROm PT-OP-R Modalities Start: 04/16/18 08:24 Freq: Status: Active Protocol: Document 09/04/18 08:15 AMB (Rec: 09/04/18 10:23 AMB [email or web address]) Ultrasound Therapy Treatment Left Volar Foot Treatment Duration (minutes) 7 Patient Position Supine Coupling Medium Ultrasound Gel Frequency Setting (mHz) 1 Intensity Setting (w/cm2) 1.5 PT-OP-T Assessment and Plan Start: 04/16/18 08:24 Freq: Status: Active Protocol: Document 09/04/18 08:15 AMB (Rec: 09/04/18 10:23 AMB [email or web address]) Physical Therapy Assessment Goals Three Impairment Hiking Short Term Goal (STG) The patient will ambulate over smooth surfaces with good shoes for 30 minutes with foot pain of 4/10 or less. STG Duration MET Deskidding Machine Operator Goal (LTG) The patient will hike for 30 minutes with a 20# pack with pain of 4/10 or less. 5/10: partially met, can hike for 15 minutes without a pack. LTG Duration 8 weeks Two Impairment Range of motion Short Term Goal (STG) Ankle dorsiflexion to 10 degrees bilaterally. 5/10: met passively STG Duration 4 weeks One Impairment Strength Short Term Goal (STG) Increase toe strength in all planes to 4+/5 5/10 progress made STG Duration 4 weeks Assessment Summary Assessment Can still reproduce pt's pain with deep palpation of plantar fascia, but functionally he is tolerating a lot more. Physical Therapy Plan Frequency and Duration Frequency of Treatment 2x/Week Duration of Treatment 8 weeks Plan of Care Start Date 08/02/18 Plan of Care End Date 09/27/18 Next Visit Focus/Plan Next Note Type Treatment Note Next Visit Plan Encourage calf strengthening and stretching, progress higher level balance
--- NOTE | 2018-09-10 12:20 | PT.OTN ---
Current Diagnoses Plantar fascial fibromatosis (09/10/18) Physical Therapy Treatment Note PT-OP-A Visit Information Start: 04/16/18 08:24 Freq: Status: Active Protocol: Document 09/10/18 09:00 HH (Rec: 09/10/18 12:20 HH [email or web address]) Out-Patient Physical Therapy Visit Information Visit Information Visit Type Treatment Note Visit Start Time 09:00 Visit Stop Time 09:45 Total Visit Minutes 45 Visit Number 32 Number of EDI CONSULTANT Visits 0 PT-OP-B Current Condition Start: 04/16/18 08:24 Freq: Status: Active Protocol: Document 04/16/18 13:45 AMB (Rec: 04/17/18 08:15 AMB [email or web address]) Current Condition History of Current Condition Onset Date September 2017 Current Complaints Left heel pain/ tightness History of Current Condition The patient reports that in September he fell onto his left foot from a 3 foot height. He kept hiking and backpacking until December, when the pain got really bad and he had to stop. Per his report he intially had a few small stress fractures, but those are now healed. He was given a boot and has been weaning off of it, and now just uses it as needed with pain. 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 He used to be on extensive opiates for the pain from being unable to have graft surgery on the left, but has been trained in hypnotic pain relief for this. He does use opiates for the pancreatic pain. PT-OP-C Subjective Start: 04/16/18 08:24 Freq: Status: Active Protocol: Document 09/10/18 09:00 HH (Rec: 09/10/18 12:20 HH [email or web address]) OP-PT Subjective Patient Comments Patient Comments I had a flare up since yesterday and dont know why. But overall its been good and i was able to hike during the weekend PT-OP-D Balance Start: 04/16/18 08:24 Freq: Status: Active Protocol: Document 04/16/18 13:45 AMB (Rec: 04/17/18 16:03 AMB [email or web address]) Balance Tests Single Limb Standing Single Limb- Right 3 seconds Single Limb- Left pain limits PT-OP-F Manual Assessment Start: 04/16/18 08:24 Freq: Status: Active Protocol: Document 05/02/18 13:45 RCC (Rec: 05/02/18 14:26 RCC [email or web address]) Manual Assessments Soft Tissue Assessment Soft Tissue Mobility Assessment Mod tension L plantar fascia Joint Mobility Assessment Joint Mobility Assessment L great toe MTP joint stiffness PT-OP-G Mobility & Gait Start: 04/16/18 08:24 Freq: Status: Active Protocol: Document 04/16/18 13:45 AMB (Rec: 04/17/18 10:30 AMB [email or web address]) OP Gait Assessment Comments Gait Comments Pt ambulates with hiking boots , slight antalgic gait, but no assistive device. PT-OP-J Posture/Palpation/Skin Start: 04/16/18 08:24 Freq: Status: Active Protocol: Document 04/16/18 13:45 AMB (Rec: 04/17/18 10:30 AMB [email or web address]) Posture Evaluation Comments Posture Comments High arches PT-OP-K Range of Motion Start: 04/16/18 08:24 Freq: Status: Active Protocol: Document 04/16/18 13:45 AMB (Rec: 04/17/18 10:30 AMB [email or web address]) Ankle and Foot Goniometric Range of Motion Ankle and Foot Right Passive Testing Position Supine Dorsiflexion with Knee Extended 5 Plantarflexion 50 Inversion 35 Eversion 25 Left Passive Dorsiflexion with Knee Extended 5 Plantarflexion 50 Inversion 30 Eversion 25 Ankle and Foot ROM Limitations Comments missing 7 degrees dorsiflexion from neutral with knee extended PT-OP-M Strength Start: 04/16/18 08:24 Freq: Status: Active Protocol: Document 08/02/18 10:03 AMB (Rec: 08/02/18 10:10 AMB [id number]) Ankle/Foot Strength Ankle and Foot Manual Muscle Testing Left Dorsiflexion (L4) 4 Good Plantarflexion (S1) 4 Good Inversion 4 Good Eversion (S1) 4+ Good+ PT-OP-Q Treatments Start: 04/16/18 08:24 Freq: Status: Active Protocol: Document 09/10/18 09:00 HH (Rec: 09/10/18 12:20 HH [email or web address]) Therapeutic Exercises Supine Exercises supine sciatic nerve glide Supine Exercise Name L hip at 90 degrees flexion with ankle DF Side left Reps/Minutes 4 mins Comments ankle pump MET on ankle AROM Supine Exercise Name DF, PF, INV, EV Side left Reps/Minutes 10 secs hold x 5 for each direction Gait Training Gait Activity hurdles walk Device Used 5 5'hurdles Surface yoga mat Distance/Duration 10 mins Comments focus on L heel strike and toe off, single leg balance as well single leg stance on L Description R LE step over Device Used 5' bassam Surface yoga mat Treatment Focus 5 mins Comments focus on single leg stance on LLE terminal stance and preswing Description use yoga katja, LLE step over bassam Device Used 5' bassam Surface ground level Treatment Focus 5 mins Comments shoes off. focus on L foot heel raise and toe off. cues on preventing excessive pronation. Manual Therapy Treatment Soft Tissue Mobilization 1 Mobilization Type Myofascial Release Intensity/Depth Moderate Body Position Supine Comments Tenderness with mod-deep pressure Joint Mobilizations L great toe Joint Intermetatarsal Direction AP, PA Grade III Body Position Supine Comments great toe extension PT-OP-R Modalities Start: 04/16/18 08:24 Freq: Status: Active Protocol: Document 09/04/18 08:15 AMB (Rec: 09/04/18 10:23 AMB [email or web address]) Ultrasound Therapy Treatment Left Volar Foot Treatment Duration (minutes) 7 Patient Position Supine Coupling Medium Ultrasound Gel Frequency Setting (mHz) 1 Intensity Setting (w/cm2) 1.5 PT-OP-T Assessment and Plan Start: 04/16/18 08:24 Freq: Status: Active Protocol: Document 09/10/18 09:00 HH (Rec: 09/10/18 12:20 [email or web address]) Physical Therapy Assessment Assessment Summary Assessment Pt did have increased tenderness to L plantar fascia . But he feels a lot better at the end of session after manual therapy, MET, and gait training. Gait training focused on terminal stance and heel strike on L foot. There' s noticeable difference between neural flexibility on posterior chain (L less than R ) Added HEP with single leg step over and supine sciatic nerve glide. Physical Therapy Plan Next Visit Focus/Plan Next Note Type Treatment Note Next Visit Plan review HEP gait training Ecourage calf strengthening and stretching, progress higher level balance [ End ]
--- NOTE | 2018-09-17 13:01 | PT.OTN ---
Current Diagnoses Plantar fascial fibromatosis (09/16/18) Physical Therapy Treatment Note PT-OP-A Visit Information Start: 04/16/18 08:24 Freq: Status: Active Protocol: Document 09/16/18 09:00 AMB (Rec: 09/17/18 13:01 AMB [email or web address]) Out-Patient Physical Therapy Visit Information Visit Information Visit Type Treatment Note Visit Start Time 09:00 Visit Stop Time 09:45 Total Visit Minutes 45 Visit Number 33 Number of AIRPORT SKILLED MAINTENANCE SUPERVISOR Visits 0 PT-OP-B Current Condition Start: 04/16/18 08:24 Freq: Status: Active Protocol: Document 04/16/18 13:45 AMB (Rec: 04/17/18 08:15 AMB [email or web address]) Current Condition History of Current Condition Onset Date September 2017 Current Complaints Left heel pain/ tightness History of Current Condition The patient reports that in September he fell onto his left foot from a 3 foot height. He kept hiking and backpacking until December, when the pain got really bad and he had to stop. Per his report he intially had a few small stress fractures, but those are now healed. He was given a boot and has been weaning off of it, and now just uses it as needed with pain. 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 He used to be on extensive opiates for the pain from being unable to have graft surgery on the left, but has been trained in hypnotic pain relief for this. He does use opiates for the pancreatic pain. PT-OP-C Subjective Start: 04/16/18 08:24 Freq: Status: Active Protocol: Document 09/16/18 09:00 AMB (Rec: 09/17/18 13:01 AMB [email or web address]) OP-PT Subjective Patient Comments Patient Comments Pt is doing well, hoping to increase hiking this week. PT-OP-D Balance Start: 04/16/18 08:24 Freq: Status: Active Protocol: Document 04/16/18 13:45 AMB (Rec: 04/17/18 16:03 AMB [email or web address]) Balance Tests Single Limb Standing Single Limb- Right 3 seconds Single Limb- Left pain limits PT-OP-F Manual Assessment Start: 04/16/18 08:24 Freq: Status: Active Protocol: Document 05/02/18 13:45 RCC (Rec: 05/02/18 14:26 RCC [email or web address]) Manual Assessments Soft Tissue Assessment Soft Tissue Mobility Assessment Mod tension L plantar fascia Joint Mobility Assessment Joint Mobility Assessment L great toe MTP joint stiffness PT-OP-G Mobility & Gait Start: 04/16/18 08:24 Freq: Status: Active Protocol: Document 04/16/18 13:45 AMB (Rec: 04/17/18 10:30 AMB [email or web address]) OP Gait Assessment Comments Gait Comments Pt ambulates with hiking boots , slight antalgic gait, but no assistive device. PT-OP-J Posture/Palpation/Skin Start: 04/16/18 08:24 Freq: Status: Active Protocol: Document 04/16/18 13:45 AMB (Rec: 04/17/18 10:30 AMB [email or web address]) Posture Evaluation Comments Posture Comments High arches PT-OP-K Range of Motion Start: 04/16/18 08:24 Freq: Status: Active Protocol: Document 04/16/18 13:45 AMB (Rec: 04/17/18 10:30 AMB [email or web address]) Ankle and Foot Goniometric Range of Motion Ankle and Foot Right Passive Testing Position Supine Dorsiflexion with Knee Extended 5 Plantarflexion 50 Inversion 35 Eversion 25 Left Passive Dorsiflexion with Knee Extended 5 Plantarflexion 50 Inversion 30 Eversion 25 Ankle and Foot ROM Limitations Comments missing 7 degrees dorsiflexion from neutral with knee extended PT-OP-M Strength Start: 04/16/18 08:24 Freq: Status: Active Protocol: Document 08/02/18 10:03 AMB (Rec: 08/02/18 10:10 AMB [id number]) Ankle/Foot Strength Ankle and Foot Manual Muscle Testing Left Dorsiflexion (L4) 4 Good Plantarflexion (S1) 4 Good Inversion 4 Good Eversion (S1) 4+ Good+ PT-OP-Q Treatments Start: 04/16/18 08:24 Freq: Status: Active Protocol: Document 09/16/18 09:00 AMB (Rec: 09/17/18 13:01 AMB [email or web address]) Gym Equipment Shuttle Balance 1 Details Ant/Post and Lateral Comments Red. NBOS & stride stance with ant/post. WBOS with lateral Therapeutic Exercises Supine Exercises supine sciatic nerve glide Supine Exercise Name L hip at 90 degrees flexion with ankle DF Side left Reps/Minutes 4 mins Comments ankle pump Standing Exercises 2 Standing Exercise Name Eccentric Calf Lower Side left Reps/Minutes x15 1 Standing Exercise Name lunges Reps/Minutes 10 Comments forward Manual Therapy Treatment Soft Tissue Mobilization 1 Mobilization Type Myofascial Release Intensity/Depth Moderate Body Position Supine Comments Tenderness with mod-deep pressure Joint Mobilizations 1 Joint talocrural Direction AP Grade IV PT-OP-R Modalities Start: 04/16/18 08:24 Freq: Status: Active Protocol: Document 09/04/18 08:15 AMB (Rec: 09/04/18 10:23 AMB [email or web address]) Ultrasound Therapy Treatment Left Volar Foot Treatment Duration (minutes) 7 Patient Position Supine Coupling Medium Ultrasound Gel Frequency Setting (mHz) 1 Intensity Setting (w/cm2) 1.5 PT-OP-T Assessment and Plan Start: 04/16/18 08:24 Freq: Status: Active Protocol: Document 09/16/18 09:00 AMB (Rec: 09/17/18 13:01 AMB [email or web address]) Physical Therapy Assessment Assessment Summary Assessment Continued to work on gait and hamstring/ calf flexibility. Educated pt not to increase frequency, intensity and duration during the same week but to only increase one. PT is going to increase frequency of hikes this week. Physical Therapy Plan Next Visit Focus/Plan Next Note Type Treatment Note Next Visit Plan Progress stretching, whole body exercise to tolerance to help pt meet hiking goals
--- NOTE | 2018-09-18 15:16 | PT.OTN ---
Current Diagnoses Plantar fascial fibromatosis (09/18/18) Physical Therapy Treatment Note PT-OP-A Visit Information Start: 04/16/18 08:24 Freq: Status: Active Protocol: Document 09/18/18 09:00 AMB (Rec: 09/18/18 09:20 AMB [id number]) Out-Patient Physical Therapy Visit Information Visit Information Visit Type Treatment Note Visit Start Time 09:00 Visit Stop Time 09:45 Total Visit Minutes 45 Visit Number 34 Number of SAP TECHNICAL DEVELOPER Visits 0 PT-OP-B Current Condition Start: 04/16/18 08:24 Freq: Status: Active Protocol: Document 04/16/18 13:45 AMB (Rec: 04/17/18 08:15 AMB [email or web address]) Current Condition History of Current Condition Onset Date September 2017 Current Complaints Left heel pain/ tightness History of Current Condition The patient reports that in September he fell onto his left foot from a 3 foot height. He kept hiking and backpacking until December, when the pain got really bad and he had to stop. Per his report he intially had a few small stress fractures, but those are now healed. He was given a boot and has been weaning off of it, and now just uses it as needed with pain. 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 He used to be on extensive opiates for the pain from being unable to have graft surgery on the left, but has been trained in hypnotic pain relief for this. He does use opiates for the pancreatic pain. PT-OP-C Subjective Start: 04/16/18 08:24 Freq: Status: Active Protocol: Document 09/18/18 09:00 AMB (Rec: 09/18/18 09:20 AMB [id number]) OP-PT Subjective Patient Comments Patient Comments Pt hiked increased elevation gain yesterday and that increased his heel pain. His foot felt weak. PT-OP-D Balance Start: 04/16/18 08:24 Freq: Status: Active Protocol: Document 04/16/18 13:45 AMB (Rec: 04/17/18 16:03 AMB [email or web address]) Balance Tests Single Limb Standing Single Limb- Right 3 seconds Single Limb- Left pain limits PT-OP-F Manual Assessment Start: 04/16/18 08:24 Freq: Status: Active Protocol: Document 05/02/18 13:45 RCC (Rec: 05/02/18 14:26 RCC [email or web address]) Manual Assessments Soft Tissue Assessment Soft Tissue Mobility Assessment Mod tension L plantar fascia Joint Mobility Assessment Joint Mobility Assessment L great toe MTP joint stiffness PT-OP-G Mobility & Gait Start: 04/16/18 08:24 Freq: Status: Active Protocol: Document 04/16/18 13:45 AMB (Rec: 04/17/18 10:30 AMB [email or web address]) OP Gait Assessment Comments Gait Comments Pt ambulates with hiking boots , slight antalgic gait, but no assistive device. PT-OP-J Posture/Palpation/Skin Start: 04/16/18 08:24 Freq: Status: Active Protocol: Document 04/16/18 13:45 AMB (Rec: 04/17/18 10:30 AMB [email or web address]) Posture Evaluation Comments Posture Comments High arches PT-OP-K Range of Motion Start: 04/16/18 08:24 Freq: Status: Active Protocol: Document 04/16/18 13:45 AMB (Rec: 04/17/18 10:30 AMB [email or web address]) Ankle and Foot Goniometric Range of Motion Ankle and Foot Right Passive Testing Position Supine Dorsiflexion with Knee Extended 5 Plantarflexion 50 Inversion 35 Eversion 25 Left Passive Dorsiflexion with Knee Extended 5 Plantarflexion 50 Inversion 30 Eversion 25 Ankle and Foot ROM Limitations Comments missing 7 degrees dorsiflexion from neutral with knee extended PT-OP-M Strength Start: 04/16/18 08:24 Freq: Status: Active Protocol: Document 08/02/18 10:03 AMB (Rec: 08/02/18 10:10 AMB [id number]) Ankle/Foot Strength Ankle and Foot Manual Muscle Testing Left Dorsiflexion (L4) 4 Good Plantarflexion (S1) 4 Good Inversion 4 Good Eversion (S1) 4+ Good+ PT-OP-Q Treatments Start: 04/16/18 08:24 Freq: Status: Active Protocol: Document 09/18/18 09:00 AMB (Rec: 09/18/18 15:15 AMB [email or web address]) Gym Equipment Shuttle Balance 1 Details Ant/Post and Lateral Comments Red. NBOS & stride stance with ant/post. WBOS with lateral Therapeutic Exercises Supine Exercises MET on ankle AROM Supine Exercise Name DF, PF, INV, EV Side left Reps/Minutes 10 secs hold x 5 for each direction Sitting Exercises 3 Sitting Exercise Name towel crunch Reps/Minutes 5 min Standing Exercises 4 Standing Exercise Name Gastroc/soleus stretch Side left Equipment Used JOSE, off of stair, knee bent Reps/Minutes 2x45 each 2 Standing Exercise Name Eccentric Calf Lower Side left Reps/Minutes x15 Manual Therapy Treatment Soft Tissue Mobilization 1 Mobilization Type Myofascial Release Intensity/Depth Moderate Body Position Supine Comments Tenderness with mod-deep pressure Joint Mobilizations 1 Joint talocrural Direction AP Grade IV PT-OP-R Modalities Start: 04/16/18 08:24 Freq: Status: Active Protocol: Document 09/04/18 08:15 AMB (Rec: 09/04/18 10:23 AMB [email or web address]) Ultrasound Therapy Treatment Left Volar Foot Treatment Duration (minutes) 7 Patient Position Supine Coupling Medium Ultrasound Gel Frequency Setting (mHz) 1 Intensity Setting (w/cm2) 1.5 PT-OP-T Assessment and Plan Start: 04/16/18 08:24 Freq: Status: Active Protocol: Document 09/18/18 09:00 AMB (Rec: 09/18/18 13:04 AMB [email or web address]) Physical Therapy Assessment Assessment Summary Assessment Pt needs to improve his foot strength to meet his strengthening goals, but has had difficulty motivating himself with strengthening exercises. Physical Therapy Plan Next Visit Focus/Plan Next Note Type Treatment Note Next Visit Plan Progress strengthening, follow up on hiking progression
--- NOTE | 2018-09-24 12:00 | PT.OTN ---
Current Diagnoses Plantar fascial fibromatosis (09/24/18) Physical Therapy Treatment Note PT-OP-A Visit Information Start: 04/16/18 08:24 Freq: Status: Active Protocol: Document 09/24/18 09:45 AMB (Rec: 09/24/18 09:51 AMB [id number]) Out-Patient Physical Therapy Visit Information Visit Information Visit Type Treatment Note Visit Start Time 09:00 Visit Stop Time 09:45 Total Visit Minutes 45 Visit Number 35 Number of HAND RIGGER Visits 0 PT-OP-B Current Condition Start: 04/16/18 08:24 Freq: Status: Active Protocol: Document 04/16/18 13:45 AMB (Rec: 04/17/18 08:15 AMB [email or web address]) Current Condition History of Current Condition Onset Date September 2017 Current Complaints Left heel pain/ tightness History of Current Condition The patient reports that in September he fell onto his left foot from a 3 foot height. He kept hiking and backpacking until December, when the pain got really bad and he had to stop. Per his report he intially had a few small stress fractures, but those are now healed. He was given a boot and has been weaning off of it, and now just uses it as needed with pain. 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 He used to be on extensive opiates for the pain from being unable to have graft surgery on the left, but has been trained in hypnotic pain relief for this. He does use opiates for the pancreatic pain. PT-OP-C Subjective Start: 04/16/18 08:24 Freq: Status: Active Protocol: Document 09/24/18 09:45 AMB (Rec: 09/24/18 09:51 AMB [id number]) OP-PT Subjective Patient Comments Patient Comments Pt went on a 5 mile hike that was flat and it went ok PT-OP-D Balance Start: 04/16/18 08:24 Freq: Status: Active Protocol: Document 04/16/18 13:45 AMB (Rec: 04/17/18 16:03 AMB [email or web address]) Balance Tests Single Limb Standing Single Limb- Right 3 seconds Single Limb- Left pain limits PT-OP-F Manual Assessment Start: 04/16/18 08:24 Freq: Status: Active Protocol: Document 05/02/18 13:45 RCC (Rec: 05/02/18 14:26 RCC [email or web address]) Manual Assessments Soft Tissue Assessment Soft Tissue Mobility Assessment Mod tension L plantar fascia Joint Mobility Assessment Joint Mobility Assessment L great toe MTP joint stiffness PT-OP-G Mobility & Gait Start: 04/16/18 08:24 Freq: Status: Active Protocol: Document 04/16/18 13:45 AMB (Rec: 04/17/18 10:30 AMB [email or web address]) OP Gait Assessment Comments Gait Comments Pt ambulates with hiking boots , slight antalgic gait, but no assistive device. PT-OP-J Posture/Palpation/Skin Start: 04/16/18 08:24 Freq: Status: Active Protocol: Document 04/16/18 13:45 AMB (Rec: 04/17/18 10:30 AMB [email or web address]) Posture Evaluation Comments Posture Comments High arches PT-OP-K Range of Motion Start: 04/16/18 08:24 Freq: Status: Active Protocol: Document 04/16/18 13:45 AMB (Rec: 04/17/18 10:30 AMB [email or web address]) Ankle and Foot Goniometric Range of Motion Ankle and Foot Right Passive Testing Position Supine Dorsiflexion with Knee Extended 5 Plantarflexion 50 Inversion 35 Eversion 25 Left Passive Dorsiflexion with Knee Extended 5 Plantarflexion 50 Inversion 30 Eversion 25 Ankle and Foot ROM Limitations Comments missing 7 degrees dorsiflexion from neutral with knee extended PT-OP-M Strength Start: 04/16/18 08:24 Freq: Status: Active Protocol: Document 08/02/18 10:03 AMB (Rec: 08/02/18 10:10 AMB [id number]) Ankle/Foot Strength Ankle and Foot Manual Muscle Testing Left Dorsiflexion (L4) 4 Good Plantarflexion (S1) 4 Good Inversion 4 Good Eversion (S1) 4+ Good+ PT-OP-Q Treatments Start: 04/16/18 08:24 Freq: Status: Active Protocol: Document 09/24/18 09:00 AMB (Rec: 09/25/18 08:57 AMB [email or web address]) Therapeutic Exercises Supine Exercises MET on ankle AROM Supine Exercise Name DF, PF, INV, EV Side left Reps/Minutes 10 secs hold x 5 for each direction Standing Exercises 4 Standing Exercise Name Gastroc/soleus stretch Side left Equipment Used JOSE, off of stair, knee bent Reps/Minutes 2x45 each 2 Standing Exercise Name Eccentric Calf Lower Side left Reps/Minutes 2x15 1 Standing Exercise Name lunges Reps/Minutes 10 Comments forward Manual Therapy Treatment Soft Tissue Mobilization 1 Mobilization Type Myofascial Release Intensity/Depth Moderate Body Position Supine Comments Tenderness with mod-deep pressure Joint Mobilizations 1 Joint talocrural Direction AP Grade IV Manual Techniques 1 Type great toe mobilization Comments AP, PA, PROm PT-OP-R Modalities Start: 04/16/18 08:24 Freq: Status: Active Protocol: Document 09/04/18 08:15 AMB (Rec: 09/04/18 10:23 AMB [email or web address]) Ultrasound Therapy Treatment Left Volar Foot Treatment Duration (minutes) 7 Patient Position Supine Coupling Medium Ultrasound Gel Frequency Setting (mHz) 1 Intensity Setting (w/cm2) 1.5 PT-OP-T Assessment and Plan Start: 04/16/18 08:24 Freq: Status: Active Protocol: Document 09/24/18 09:00 AMB (Rec: 09/24/18 09:54 AMB [id number]) Physical Therapy Assessment Goals Three Impairment Hiking Short Term Goal (STG) The patient will ambulate over smooth surfaces with good shoes for 30 minutes with foot pain of 4/10 or less. STG Duration MET Divinity Professor Goal (LTG) The patient will hike for 30 minutes with a 20# pack with pain of 4/10 or less. LTG Duration MET Two Impairment Range of motion Short Term Goal (STG) Ankle dorsiflexion to 10 degrees bilaterally. 5/10: met passively STG Duration PROGRESS MADE One Impairment Strength Short Term Goal (STG) Increase toe strength in all planes to 4+/5 STG Duration PROGRESS MADE Assessment Summary Assessment Encouraged Alfredo in calf strengthening, as his single leg calf strength is still limited. He is tolerating hiking on flat terrain up to 5 miles, elevation gain continues to be challenging. He will benefit from continued PT to continue to strengthen his calf and foot instrinsics. Physical Therapy Plan Frequency and Duration Frequency of Treatment 1x/Week Duration of Treatment 5 weeks Plan of Care Start Date 09/24/18 Plan of Care End Date 10/29/18 Therapeutic Interventions Therapeutic Interventions Aquatic Therapy Gait Training Home Exercise Program Joint Mobilizations Manual Therapy Neuromuscular Re-education Self-Care/Home Management Soft Tissue Mobilization Therapeutic Activities Therapeutic Exercises Modalities Electric Stimulation Ultrasound Next Visit Focus/Plan Next Note Type Treatment Note Next Visit Plan Progress strengthening, follow up on hiking progression
--- NOTE | 2018-09-24 12:01 | PT.OPPOC ---
Current Diagnoses Plantar fascial fibromatosis (09/24/18) Provider Visit Care Team Role Provider Type Jacobo Ochoa MD Attending Provider Non-Staff Family Provider Primary Care Provider Specialty: Emergency Medicine Address: [address] [place] [address], [place], [address] Email: Plan Of Care PT-OP-T Assessment and Plan Start: 04/16/18 08:24 Freq: Status: Active Protocol: Document 09/24/18 09:00 AMB (Rec: 09/24/18 09:54 AMB [id number]) Physical Therapy Assessment Goals Three Impairment Hiking Short Term Goal (STG) The patient will ambulate over smooth surfaces with good shoes for 30 minutes with foot pain of 4/10 or less. STG Duration MET Shelter Goal (LTG) The patient will hike for 30 minutes with a 20# pack with pain of 4/10 or less. LTG Duration MET Two Impairment Range of motion Short Term Goal (STG) Ankle dorsiflexion to 10 degrees bilaterally. 5/10: met passively STG Duration PROGRESS MADE One Impairment Strength Short Term Goal (STG) Increase toe strength in all planes to 4+/5 STG Duration PROGRESS MADE Assessment Summary Assessment Encouraged Alfredo in calf strengthening, as his single leg calf strength is still limited. He is tolerating hiking on flat terrain up to 5 miles, elevation gain continues to be challenging. He will benefit from continued PT to continue to strengthen his calf and foot instrinsics. Physical Therapy Plan Frequency and Duration Frequency of Treatment 1x/Week Duration of Treatment 5 weeks Plan of Care Start Date 09/24/18 Plan of Care End Date 10/29/18 Therapeutic Interventions Therapeutic Interventions Aquatic Therapy Gait Training Home Exercise Program Joint Mobilizations Manual Therapy Neuromuscular Re-education Self-Care/Home Management Soft Tissue Mobilization Therapeutic Activities Therapeutic Exercises Modalities Electric Stimulation Ultrasound Next Visit Focus/Plan Next Note Type Treatment Note Next Visit Plan Progress strengthening, follow up on hiking progression Plan of Care Dates Plan of Care Start Date 09/24/18 Plan of Care End Date 10/29/18 Please Sign and Return: I have reviewed this Plan of Care and certify that the skilled therapy services above are required to meet the patient?s needs. Physician Signature Date Printed Name and Credentials Clinical Instructor Signature Printed Name and Credentials
--- NOTE | 2018-10-01 16:37 | PT.OTN ---
Current Diagnoses Plantar fascial fibromatosis (10/01/18) Physical Therapy Treatment Note PT-OP-A Visit Information Start: 04/16/18 08:24 Freq: Status: Active Protocol: Document 10/01/18 09:00 AMB (Rec: 10/01/18 16:37 AMB [email or web address]) Out-Patient Physical Therapy Visit Information Visit Information Visit Type Treatment Note Visit Start Time 09:00 Visit Stop Time 09:45 Total Visit Minutes 45 Visit Number 36 Number of SPACE AND MISSILE OPERATIONS Visits 0 PT-OP-B Current Condition Start: 04/16/18 08:24 Freq: Status: Active Protocol: Document 04/16/18 13:45 AMB (Rec: 04/17/18 08:15 AMB [email or web address]) Current Condition History of Current Condition Onset Date September 2017 Current Complaints Left heel pain/ tightness History of Current Condition The patient reports that in September he fell onto his left foot from a 3 foot height. He kept hiking and backpacking until December, when the pain got really bad and he had to stop. Per his report he intially had a few small stress fractures, but those are now healed. He was given a boot and has been weaning off of it, and now just uses it as needed with pain. 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 He used to be on extensive opiates for the pain from being unable to have graft surgery on the left, but has been trained in hypnotic pain relief for this. He does use opiates for the pancreatic pain. PT-OP-C Subjective Start: 04/16/18 08:24 Freq: Status: Active Protocol: Document 10/01/18 09:00 AMB (Rec: 10/01/18 16:37 AMB [email or web address]) OP-PT Subjective Patient Comments Patient Comments Pt has been hiking 3.5 miles with elevation gain and some pain over the heel but tolerable. Noticing overall deconditioning the most now. PT-OP-D Balance Start: 04/16/18 08:24 Freq: Status: Active Protocol: Document 04/16/18 13:45 AMB (Rec: 04/17/18 16:03 AMB [email or web address]) Balance Tests Single Limb Standing Single Limb- Right 3 seconds Single Limb- Left pain limits PT-OP-F Manual Assessment Start: 04/16/18 08:24 Freq: Status: Active Protocol: Document 05/02/18 13:45 RCC (Rec: 05/02/18 14:26 RCC [email or web address]) Manual Assessments Soft Tissue Assessment Soft Tissue Mobility Assessment Mod tension L plantar fascia Joint Mobility Assessment Joint Mobility Assessment L great toe MTP joint stiffness PT-OP-G Mobility & Gait Start: 04/16/18 08:24 Freq: Status: Active Protocol: Document 04/16/18 13:45 AMB (Rec: 04/17/18 10:30 AMB [email or web address]) OP Gait Assessment Comments Gait Comments Pt ambulates with hiking boots , slight antalgic gait, but no assistive device. PT-OP-J Posture/Palpation/Skin Start: 04/16/18 08:24 Freq: Status: Active Protocol: Document 04/16/18 13:45 AMB (Rec: 04/17/18 10:30 AMB [email or web address]) Posture Evaluation Comments Posture Comments High arches PT-OP-K Range of Motion Start: 04/16/18 08:24 Freq: Status: Active Protocol: Document 04/16/18 13:45 AMB (Rec: 04/17/18 10:30 AMB [email or web address]) Ankle and Foot Goniometric Range of Motion Ankle and Foot Right Passive Testing Position Supine Dorsiflexion with Knee Extended 5 Plantarflexion 50 Inversion 35 Eversion 25 Left Passive Dorsiflexion with Knee Extended 5 Plantarflexion 50 Inversion 30 Eversion 25 Ankle and Foot ROM Limitations Comments missing 7 degrees dorsiflexion from neutral with knee extended PT-OP-M Strength Start: 04/16/18 08:24 Freq: Status: Active Protocol: Document 08/02/18 10:03 AMB (Rec: 08/02/18 10:10 AMB [id number]) Ankle/Foot Strength Ankle and Foot Manual Muscle Testing Left Dorsiflexion (L4) 4 Good Plantarflexion (S1) 4 Good Inversion 4 Good Eversion (S1) 4+ Good+ PT-OP-Q Treatments Start: 04/16/18 08:24 Freq: Status: Active Protocol: Document 10/01/18 09:00 AMB (Rec: 07/09/19 16:37 AMB [email or web address]) Therapeutic Exercises Standing Exercises 6 Standing Exercise Name walking with heel raise Reps/Minutes 10'x5 5 Standing Exercise Name squat with heel raise Comments 2x10 4 Standing Exercise Name Gastroc/soleus stretch Side left Equipment Used JOSE, off of stair, knee bent Reps/Minutes 2x45 each 3 Standing Exercise Name step ups Reps/Minutes 2x10 Comments 8 step 2 Standing Exercise Name Eccentric Calf Lower Side left Reps/Minutes 2x15 1 Standing Exercise Name lunges Reps/Minutes 10 Comments forward Manual Therapy Treatment Soft Tissue Mobilization 1 Mobilization Type Myofascial Release Intensity/Depth Moderate Body Position Supine Comments Tenderness with mod-deep pressure PT-OP-R Modalities Start: 04/16/18 08:24 Freq: Status: Active Protocol: Document 09/04/18 08:15 AMB (Rec: 09/04/18 10:23 AMB [email or web address]) Ultrasound Therapy Treatment Left Volar Foot Treatment Duration (minutes) 7 Patient Position Supine Coupling Medium Ultrasound Gel Frequency Setting (mHz) 1 Intensity Setting (w/cm2) 1.5 PT-OP-T Assessment and Plan Start: 04/16/18 08:24 Freq: Status: Active Protocol: Document 10/01/18 09:00 AMB (Rec: 10/01/18 16:37 AMB [email or web address]) Physical Therapy Assessment Assessment Summary Assessment Given written HEP of lunges, plies, and step ups. Physical Therapy Plan Next Visit Focus/Plan Next Note Type Treatment Note Next Visit Plan Progress strengthening, follow up on hiking progression
--- NOTE | 2018-10-08 13:05 | PT.OTN ---
Current Diagnoses Plantar fascial fibromatosis (10/08/18) Physical Therapy Treatment Note PT-OP-A Visit Information Start: 04/16/18 08:24 Freq: Status: Active Protocol: Document 10/08/18 09:00 AMB (Rec: 10/08/18 12:05 AMB [email or web address]) Out-Patient Physical Therapy Visit Information Visit Information Visit Type Treatment Note Visit Start Time 09:00 Visit Stop Time 09:45 Total Visit Minutes 45 Visit Number 37 Number of ELECTRONICS WARFARE TECHNICIAN Visits 0 PT-OP-B Current Condition Start: 04/16/18 08:24 Freq: Status: Active Protocol: Document 04/16/18 13:45 AMB (Rec: 04/17/18 08:15 AMB [email or web address]) Current Condition History of Current Condition Onset Date September 2017 Current Complaints Left heel pain/ tightness History of Current Condition The patient reports that in September he fell onto his left foot from a 3 foot height. He kept hiking and backpacking until December, when the pain got really bad and he had to stop. Per his report he intially had a few small stress fractures, but those are now healed. He was given a boot and has been weaning off of it, and now just uses it as needed with pain. 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 He used to be on extensive opiates for the pain from being unable to have graft surgery on the left, but has been trained in hypnotic pain relief for this. He does use opiates for the pancreatic pain. PT-OP-C Subjective Start: 04/16/18 08:24 Freq: Status: Active Protocol: Document 10/08/18 09:00 AMB (Rec: 10/08/18 12:05 AMB [email or web address]) OP-PT Subjective Patient Comments Patient Comments Pt has been hiking around [employer] [place] [employer], plans to do [employer] for more elevation training. PT-OP-D Balance Start: 04/16/18 08:24 Freq: Status: Active Protocol: Document 04/16/18 13:45 AMB (Rec: 04/17/18 16:03 AMB [email or web address]) Balance Tests Single Limb Standing Single Limb- Right 3 seconds Single Limb- Left pain limits PT-OP-F Manual Assessment Start: 04/16/18 08:24 Freq: Status: Active Protocol: Document 05/02/18 13:45 RCC (Rec: 05/02/18 14:26 RCC [email or web address]) Manual Assessments Soft Tissue Assessment Soft Tissue Mobility Assessment Mod tension L plantar fascia Joint Mobility Assessment Joint Mobility Assessment L great toe MTP joint stiffness PT-OP-G Mobility & Gait Start: 04/16/18 08:24 Freq: Status: Active Protocol: Document 04/16/18 13:45 AMB (Rec: 04/17/18 10:30 AMB [email or web address]) OP Gait Assessment Comments Gait Comments Pt ambulates with hiking boots , slight antalgic gait, but no assistive device. PT-OP-J Posture/Palpation/Skin Start: 04/16/18 08:24 Freq: Status: Active Protocol: Document 04/16/18 13:45 AMB (Rec: 04/17/18 10:30 AMB [email or web address]) Posture Evaluation Comments Posture Comments High arches PT-OP-K Range of Motion Start: 04/16/18 08:24 Freq: Status: Active Protocol: Document 04/16/18 13:45 AMB (Rec: 04/17/18 10:30 AMB [email or web address]) Ankle and Foot Goniometric Range of Motion Ankle and Foot Right Passive Testing Position Supine Dorsiflexion with Knee Extended 5 Plantarflexion 50 Inversion 35 Eversion 25 Left Passive Dorsiflexion with Knee Extended 5 Plantarflexion 50 Inversion 30 Eversion 25 Ankle and Foot ROM Limitations Comments missing 7 degrees dorsiflexion from neutral with knee extended PT-OP-M Strength Start: 04/16/18 08:24 Freq: Status: Active Protocol: Document 08/02/18 10:03 AMB (Rec: 08/02/18 10:10 AMB [id number]) Ankle/Foot Strength Ankle and Foot Manual Muscle Testing Left Dorsiflexion (L4) 4 Good Plantarflexion (S1) 4 Good Inversion 4 Good Eversion (S1) 4+ Good+ PT-OP-Q Treatments Start: 04/16/18 08:24 Freq: Status: Active Protocol: Document 10/08/18 09:00 AMB (Rec: 10/08/18 13:01 AMB [email or web address]) Therapeutic Exercises Standing Exercises 6 Standing Exercise Name walking with heel raise Reps/Minutes 10'x5 5 Standing Exercise Name squat with heel raise Comments 2x10 4 Standing Exercise Name Gastroc/soleus stretch Side left Equipment Used JOSE, off of stair, knee bent Reps/Minutes 2x45 each 2 Standing Exercise Name Eccentric Calf Lower Side left Reps/Minutes 2x15 1 Standing Exercise Name lunges Reps/Minutes 10 Comments forward Manual Therapy Treatment Soft Tissue Mobilization 1 Mobilization Type Myofascial Release Intensity/Depth Moderate Body Position Supine Comments Tenderness with mod-deep pressure Joint Mobilizations 1 Joint talocrural Direction AP Grade IV PT-OP-R Modalities Start: 04/16/18 08:24 Freq: Status: Active Protocol: Document 09/04/18 08:15 AMB (Rec: 09/04/18 10:23 AMB [email or web address]) Ultrasound Therapy Treatment Left Volar Foot Treatment Duration (minutes) 7 Patient Position Supine Coupling Medium Ultrasound Gel Frequency Setting (mHz) 1 Intensity Setting (w/cm2) 1.5 PT-OP-T Assessment and Plan Start: 04/16/18 08:24 Freq: Status: Active Protocol: Document 10/08/18 09:00 AMB (Rec: 10/08/18 12:05 AMB [email or web address]) Physical Therapy Assessment Goals Three Impairment Hiking Short Term Goal (STG) The patient will ambulate over smooth surfaces with good shoes for 30 minutes with foot pain of 4/10 or less. STG Duration MET Senior Living Goal (LTG) The patient will hike for 30 minutes with a 20# pack with pain of 4/10 or less. LTG Duration MET Two Impairment Range of motion Short Term Goal (STG) Ankle dorsiflexion to 10 degrees bilaterally. 5/10: met passively STG Duration PROGRESS MADE One Impairment Strength Short Term Goal (STG) Increase toe strength in all planes to 4+/5 STG Duration PROGRESS MADE Assessment Summary Assessment Pt may have overdone it a bit with the lunges, with extended soreness afterwards, but would continue to recommend, but with more mindfullness over reps and sets. Physical Therapy Plan Next Visit Focus/Plan Next Note Type Discharge Summary Next Visit Plan end of insurance authorization
--- NOTE | 2018-10-15 17:10 | PT.OTN ---
Current Diagnoses Plantar fascial fibromatosis (10/15/18) Physical Therapy Treatment Note PT-OP-A Visit Information Start: 04/16/18 08:24 Freq: Status: Active Protocol: Document 10/15/18 09:00 AMB (Rec: 10/16/18 10:13 AMB [email or web address]) Out-Patient Physical Therapy Visit Information Visit Information Visit Type Discharge Summary Visit Start Time 09:00 Visit Stop Time 09:45 Total Visit Minutes 45 Visit Number 38 Number of MANAGER PMO Visits 0 PT-OP-B Current Condition Start: 04/16/18 08:24 Freq: Status: Active Protocol: Document 04/16/18 13:45 AMB (Rec: 04/17/18 08:15 AMB [email or web address]) Current Condition History of Current Condition Onset Date September 2017 Current Complaints Left heel pain/ tightness History of Current Condition The patient reports that in September he fell onto his left foot from a 3 foot height. He kept hiking and backpacking until December, when the pain got really bad and he had to stop. Per his report he intially had a few small stress fractures, but those are now healed. He was given a boot and has been weaning off of it, and now just uses it as needed with pain. 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 He used to be on extensive opiates for the pain from being unable to have graft surgery on the left, but has been trained in hypnotic pain relief for this. He does use opiates for the pancreatic pain. PT-OP-C Subjective Start: 04/16/18 08:24 Freq: Status: Active Protocol: Document 10/15/18 09:00 AMB (Rec: 10/16/18 10:13 AMB [email or web address]) OP-PT Subjective Patient Comments Patient Comments Pt feels like he is ready for discharge. His foot is feeling better, but he continues to feel weak in his quads but feels he does have exercises to work on that. Pain increases to 4/10 at the heel with hiking 5 miles, but no pain to 1/10 pain at rest. PT-OP-D Balance Start: 04/16/18 08:24 Freq: Status: Active Protocol: Document 10/15/18 09:00 AMB (Rec: 10/17/18 17:02 AMB [email or web address]) Balance Tests Single Limb Standing Single Limb- Right 10 seconds Single Limb- Left 5 seconds PT-OP-F Manual Assessment Start: 04/16/18 08:24 Freq: Status: Active Protocol: Document 05/02/18 13:45 RCC (Rec: 05/02/18 14:26 RCC [email or web address]) Manual Assessments Soft Tissue Assessment Soft Tissue Mobility Assessment Mod tension L plantar fascia Joint Mobility Assessment Joint Mobility Assessment L great toe MTP joint stiffness PT-OP-G Mobility & Gait Start: 04/16/18 08:24 Freq: Status: Active Protocol: Document 10/15/18 09:00 AMB (Rec: 10/17/18 17:02 AMB [email or web address]) OP Gait Assessment Comments Gait Comments Pt continues to wear trail running shoes with custom orthotics, at d/c appointment no antalgic gait seen, but likely present after he has been hiking PT-OP-J Posture/Palpation/Skin Start: 04/16/18 08:24 Freq: Status: Active Protocol: Document 10/15/18 09:00 AMB (Rec: 10/17/18 17:02 AMB [email or web address]) Palpation Assessment Location One Palpation Details tenderness at L heel with deep palpation, scar tissue in plantar fascia still palpable but vastly diminished PT-OP-K Range of Motion Start: 04/16/18 08:24 Freq: Status: Active Protocol: Document 10/15/18 09:00 AMB (Rec: 10/17/18 17:02 AMB [email or web address]) Ankle and Foot Goniometric Range of Motion Ankle and Foot Left Passive Dorsiflexion with Knee Extended 5 Plantarflexion 50 Inversion 30 Eversion 25 PT-OP-M Strength Start: 04/16/18 08:24 Freq: Status: Active Protocol: Document 10/15/18 09:00 AMB (Rec: 10/17/18 17:02 AMB [email or web address]) Ankle/Foot Strength Ankle and Foot Manual Muscle Testing Left Dorsiflexion (L4) 4+ Good+ Plantarflexion (S1) 4 Good Inversion 4+ Good+ Eversion (S1) 4+ Good+ PT-OP-Q Treatments Start: 04/16/18 08:24 Freq: Status: Active Protocol: Document 10/15/18 09:00 AMB (Rec: 10/17/18 17:10 AMB [email or web address]) Gym Equipment Shuttle Balance 1 Details Ant/Post and Lateral Comments Red. NBOS & stride stance with ant/post. WBOS with lateral Therapeutic Exercises Standing Exercises 6 Standing Exercise Name walking with heel raise Reps/Minutes 10'x5 5 Standing Exercise Name squat with heel raise Comments 2x10 4 Standing Exercise Name Gastroc/soleus stretch Side left Equipment Used JOSE, off of stair, knee bent Reps/Minutes 2x45 each 3 Standing Exercise Name step ups Reps/Minutes 2x10 Comments 8 step 2 Standing Exercise Name Eccentric Calf Lower Side left Reps/Minutes 2x15 1 Standing Exercise Name lunges Reps/Minutes 10 Comments forward Neuro Re-Education Treatment Balance Activities 2 Details single leg stance Reps/Duration 30x2 PT-OP-R Modalities Start: 04/16/18 08:24 Freq: Status: Active Protocol: Document 09/04/18 08:15 AMB (Rec: 09/04/18 10:23 AMB [email or web address]) Ultrasound Therapy Treatment Left Volar Foot Treatment Duration (minutes) 7 Patient Position Supine Coupling Medium Ultrasound Gel Frequency Setting (mHz) 1 Intensity Setting (w/cm2) 1.5 PT-OP-T Assessment and Plan Start: 04/16/18 08:24 Freq: Status: Active Protocol: Document 10/15/18 09:00 AMB (Rec: 10/17/18 17:10 AMB [email or web address]) Physical Therapy Assessment Goals Three Impairment Hiking Short Term Goal (STG) The patient will ambulate over smooth surfaces with good shoes for 30 minutes with foot pain of 4/10 or less. STG Duration MET Severity Of Illness Coordinator Goal (LTG) The patient will hike for 30 minutes with a 20# pack with pain of 4/10 or less. LTG Duration MET Two Impairment Range of motion Short Term Goal (STG) Ankle dorsiflexion to 10 degrees bilaterally. STG Duration PROGRESS MADE One Impairment Strength Short Term Goal (STG) Increase toe strength in all planes to 4+/5 STG Duration PROGRESS MADE Assessment Summary Assessment Alfredo is hiking for 5 miles at a time without an increase in plantar fasciitis pain. At this time his overall weakness is more of a limiting factor than his foot pain. He is continuing to work on that with calf raises, lunges, squats and step ups. His difficulty with nausea and weightloss continues to limit his overall endurance. He has been instructed in a safe program for slowly increasing his hiking tolerance. He is discharged to his home exercise program. Physical Therapy Plan Discharge Physical Therapy Discharge Comments insurance limitation maximum
--- NOTE | 2018-10-15 17:14 | PT.OPDS ---
Current Diagnoses Plantar fascial fibromatosis (10/15/18) Provider Visit Care Team Role Provider Type Jacobo Ochoa MD Attending Provider Non-Staff Family Provider Primary Care Provider Specialty: Emergency Medicine Address: [address] [place] [address], [id number] Email: Visit Number Visit Number 38 Discharge Summary PT-OP-B Current Condition Start: 04/16/18 08:24 Freq: Status: Active Protocol: Document 04/16/18 13:45 AMB (Rec: 04/17/18 08:15 AMB [email or web address]) Current Condition History of Current Condition Onset Date September 2017 Current Complaints Left heel pain/ tightness History of Current Condition The patient reports that in September he fell onto his left foot from a 3 foot height. He kept hiking and backpacking until December, when the pain got really bad and he had to stop. Per his report he intially had a few small stress fractures, but those are now healed. He was given a boot and has been weaning off of it, and now just uses it as needed with pain. 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 He used to be on extensive opiates for the pain from being unable to have graft surgery on the left, but has been trained in hypnotic pain relief for this. He does use opiates for the pancreatic pain. PT-OP-C Subjective Start: 04/16/18 08:24 Freq: Status: Active Protocol: Document 10/15/18 09:00 AMB (Rec: 10/16/18 10:13 AMB [email or web address]) OP-PT Subjective Patient Comments Patient Comments Pt feels like he is ready for discharge. His foot is feeling better, but he continues to feel weak in his quads but feels he does have exercises to work on that. Pain increases to 4/10 at the heel with hiking 5 miles, but no pain to 1/10 pain at rest. PT-OP-D Balance Start: 04/16/18 08:24 Freq: Status: Active Protocol: Document 10/15/18 09:00 AMB (Rec: 10/17/18 17:02 AMB [email or web address]) Balance Tests Single Limb Standing Single Limb- Right 10 seconds Single Limb- Left 5 seconds PT-OP-F Manual Assessment Start: 04/16/18 08:24 Freq: Status: Active Protocol: Document 05/02/18 13:45 RCC (Rec: 05/02/18 14:26 RCC [email or web address]) Manual Assessments Soft Tissue Assessment Soft Tissue Mobility Assessment Mod tension L plantar fascia Joint Mobility Assessment Joint Mobility Assessment L great toe MTP joint stiffness PT-OP-G Mobility & Gait Start: 04/16/18 08:24 Freq: Status: Active Protocol: Document 10/15/18 09:00 AMB (Rec: 10/17/18 17:02 AMB [email or web address]) OP Gait Assessment Comments Gait Comments Pt continues to wear trail running shoes with custom orthotics, at d/c appointment no antalgic gait seen, but likely present after he has been hiking PT-OP-J Posture/Palpation/Skin Start: 04/16/18 08:24 Freq: Status: Active Protocol: Document 10/15/18 09:00 AMB (Rec: 10/17/18 17:02 AMB [email or web address]) Palpation Assessment Location One Palpation Details tenderness at L heel with deep palpation, scar tissue in plantar fascia still palpable but vastly diminished PT-OP-K Range of Motion Start: 04/16/18 08:24 Freq: Status: Active Protocol: Document 10/15/18 09:00 AMB (Rec: 10/17/18 17:02 AMB [email or web address]) Ankle and Foot Goniometric Range of Motion Ankle and Foot Left Passive Dorsiflexion with Knee Extended 5 Plantarflexion 50 Inversion 30 Eversion 25 PT-OP-M Strength Start: 04/16/18 08:24 Freq: Status: Active Protocol: Document 10/15/18 09:00 AMB (Rec: 10/17/18 17:02 AMB [email or web address]) Ankle/Foot Strength Ankle and Foot Manual Muscle Testing Left Dorsiflexion (L4) 4+ Good+ Plantarflexion (S1) 4 Good Inversion 4+ Good+ Eversion (S1) 4+ Good+ PT-OP-T Assessment and Plan Start: 04/16/18 08:24 Freq: Status: Active Protocol: Document 10/15/18 09:00 AMB (Rec: 10/17/18 17:10 AMB [email or web address]) Physical Therapy Assessment Goals Three Impairment Hiking Short Term Goal (STG) The patient will ambulate over smooth surfaces with good shoes for 30 minutes with foot pain of 4/10 or less. STG Duration MET Sales Associate Cashier Goal (LTG) The patient will hike for 30 minutes with a 20# pack with pain of 4/10 or less. LTG Duration MET Two Impairment Range of motion Short Term Goal (STG) Ankle dorsiflexion to 10 degrees bilaterally. STG Duration PROGRESS MADE One Impairment Strength Short Term Goal (STG) Increase toe strength in all planes to 4+/5 STG Duration PROGRESS MADE Assessment Summary Assessment Alfredo is hiking for 5 miles at a time without an increase in plantar fasciitis pain. At this time his overall weakness is more of a limiting factor than his foot pain. He is continuing to work on that with calf raises, lunges, squats and step ups. His difficulty with nausea and weightloss continues to limit his overall endurance. He has been instructed in a safe program for slowly increasing his hiking tolerance. He is discharged to his home exercise program. Physical Therapy Plan Discharge Physical Therapy Discharge Comments insurance limitation maximum
== END 2018-10-18 13:19 | disposition home or self-care (01) ==
LOC: PHYS 09:00
PROVIDERS: Family Provider Emergency Medicine Emergency Medical Services; PCP Emergency Medicine Emergency Medical Services; Visit Provider Emergency Medicine Emergency Medical Services
DX: M72.2 Plantar fascial fibromatosis (principal)
CPT/HCPCS: 97035; 97110; 97112; 97116; 97140; 97162

== ENCOUNTER 2019-02-12 21:17 | Inpatient (IN) | payer OTHER, SELFPAY ==
[2018-03-24 13:51] VITALS: BMI 26.7
--- NOTE | 2019-02-12 21:24 | ED_ITS ---
HPI - Nausea/Vomiting/Diarrhea General Chief complaint: Nausea/Vomiting/Diarrhea Stated complaint: states needs fluids Time Seen by Provider: 02/12/19 21:23 Source: patient Mode of arrival: Ambulatory Limitations: no limitations History of Present Illness HPI Narrative: 64M former smoker with extensive medical history including chronic pancreatitis, dehyrdration, and Afib presents with a few days of N/V/D. Now it has the chills and is feeling a bit dizzy, weak and lightheaded. He very quickly states he needs fluids as that normally gets him turned around rather quickly. He states he feels like he ate some food that has the occasion to cause this. He denies any recent antibiotic use. He denies any recent travel. He states he has not been to emergency department and a least 6 months. He denies any specific pain but states he does have some generalized abdominal discomfort. MD complaint: nausea, vomiting and diarrhea Onset (ago): day(s) Description of Vomiting: food contents Description of Diarrhea: watery Associated Abdominal Pain: Yes Location of pain: diffuse Severity: moderate Quality: cramping Pain Consistency: constant Relieving factors: none Exacerbating factors: none Associated symptoms: loss of appetite and nausea/vomiting Related Data Home Medications Medication Instructions Recorded Confirmed clopidogrel 75 mg PO Q DAY #0 04/15/08 02/13/19 diclofenac sodium [Voltaren] 1 crys TOPICAL PRN PRN #0 03/14/17 02/13/19 Creon 1 cap PO DIRECTED 08/17/17 02/13/19 Creon 1 cap PO DIRECTED 08/17/17 02/13/19 Novolog Flexpen U-100 Insulin 2 unit SUB-Q TID 08/17/17 02/13/19 omeprazole 40 mg PO BID 08/17/17 02/13/19 acetaminophen 325 mg PO Q4HP PRN 09/25/17 02/13/19 cholecalciferol (vitamin D3) 1,000 unit PO BID 09/25/17 02/13/19 [Vitamin D3] dabigatran etexilate 150 mg PO BID 03/24/18 02/13/19 lisinopril 20 mg tablet 2.5 mg PO DAILY tab 11/19/18 02/13/19 metoprolol tartrate 50 mg tablet 12.5 mg PO BID tab 11/19/18 02/13/19 Lantus U-100 Insulin 10 units SUBCUT DAILY 02/13/19 02/13/19 fluticasone propionate 50 mcg INTRANASAL DAILY 02/13/19 02/13/19 ondansetron 4 mg PO Q6H PRN 02/13/19 02/13/19 ondansetron PO PRN 02/13/19 pravastatin 80 mg PO DAILY 02/13/19 02/13/19 Previous Rx's Medication Instructions Recorded promethazine [Phenergan] 25 mg NH Q6H PRN #10 each 09/25/17 oxycodone 5 mg PO PRN PRN #20 tab 03/31/18 oxycodone 5 mg PO Q4HR PRN #20 tab 03/31/18 methylphenidate HCl 20 mg tablet See Rx Instructions .ROUTE 01/21/19 .COMPLEX #90 tablet Allergies Allergy/AdvReac Type Severity Reaction Status Date / Time Iodine and Iodide Containing Allergy Severe Anaphylaxis Verified 11/19/18 08:56 Produc [IODINE AND IODIDE CONTAINING PRODUC] Sulfa (Sulfonamide Allergy Severe Anaphylaxis Verified 11/19/18 08:56 Antibiotics) [SULFA (SULFONAMIDE ANTIBIOTICS)] Review of Systems Constitutional Constitutional: Reports chills, Reports fatigue, Denies fever(s), Denies frequent falls, Denies lethargy and Reports weakness Eyes Eyes: Denies change in vision, Denies eye discharge, Denies irritation and Denies loss of vision ENT Ears, Nose, Mouth, and Throat: Denies change in voice, Denies dizziness, Denies neck pain, Denies sore throat and Denies throat swelling Cardiovascular Cardiovascular: Denies chest pain, Denies irregular heart rhythm, Denies lightheadedness, Denies palpitations, Denies dyspnea, Denies dyspnea on exertion and Denies orthopnea Respiratory Respiratory: Denies cough, Denies dyspnea, Denies dyspnea on exertion and Denies wheezing Gastrointestinal Gastrointestinal: Reports abdominal pain, Denies change in bowel habits, Reports diarrhea, Reports nausea and Reports vomiting Genitourinary Genitourinary: Denies hematuria, Denies flank pain, Denies urinary incontinence and Denies urinary urgency Musculoskeletal Musculoskeletal: Denies back pain, Denies muscle weakness, Denies neck pain, Denies numbness and Denies tingling Integumentary/Breasts Skin/Breast: Denies pruritus, Denies erythema, Denies rash and Denies wounds Neurologic Neurologic: Denies behavioral changes, Denies confusion, Denies dizziness, Denies frequent falls, Denies loss of vision, Denies numbness, Denies tingling and Reports weakness Psychiatric Psychiatric: Denies anxiety, Denies behavioral changes, Denies confusion, Denies depression, Denies homicidal ideation and Denies suicidal ideation Endocrine Endocrine: Reports fatigue, Denies flushing and Denies palpitations Hematologic/Lymphatic Hematologic/Lymphatic: Denies easy bruising Allergic/Immunologic Allergic/Immunologic: Denies urticaria, Denies throat swelling and Denies wheezing 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 Well-nourished, well-developed patient, in mild distress. HEAD: Atraumatic. Normocephalic. EYES: Pupils equal round and reactive. Extraocular motions intact. No scleral icterus. No injection or drainage. ENT: Nose without bleeding, purulent drainage. Throat without erythema, tonsillar hypertrophy or exudate. Airway patent. NECK: Trachea midline. Non tender CARDIOVASCULAR: Regular rate and rhythm without murmurs, gallops, or rubs. RESPIRATORY: Clear to auscultation. Breath sounds equal bilaterally. No wheezes, rales, or rhonchi. GASTROINTESTINAL: Abdomen soft, non-tender, nondistended. EXTREMITIES: No edema or joint tenderness. BACK: Nontender without deformity or crepitance. No flank tenderness. NEURO: AOx3. SKIN: No rash or erythema of visible areas Initial Vital Signs Initial Vital Signs: Vital Signs Pulse Rate 94 H 02/12/19 22:37 Respiratory Rate 22 02/12/19 22:37 Blood Pressure 113/73 02/12/19 22:37 Pulse Oximetry 100 02/12/19 22:37 Course Course Course Narrative: CTSP after a BM as he became dizzy and lightheaded and BP noted to be 85. This is likely a vagal response as he quickly had an improvement to 113. Recognition of severe sepsis considered with elevated Lactate of 4.6 at 2230 as the episode of hypotension was thought to be vagal. time of recognition: 2230 fluid goal: 30mL/kg x 72kg = 2160 by 0130 ABX by 0030: Levaquin ordered at 2346 Orders Ordered: ED Orders 02/12/19 21:37 GI Panel (Film Array) Stat 02/12/19 21:57 Complete Blood Count AUTO DIFF Stat Comprehensive Metabolic Panel Stat Lipase Stat 02/12/19 22:30 Lactate (Lactic Acid) Stat 02/12/19 22:57 CT abdomen pelvis w con Stat Sodium Chloride (Normal Saline 0.9%) 1,000 mls @ 250 mls/hr IV CONT KATHY Last Admin: 02/13/19 02:11 Dose: 250 mls/hr Documented by: SHAKEEL Ondansetron HCl (Zofran) 4 mg IV Q4HR PRN PRN Reason: Nausea And Vomiting Last Admin: 02/13/19 02:11 Dose: 4 mg Documented by: SHAKEEL Sodium Chloride (Normal Saline 0.9% Flush) 10 ml IV PRN PRN PRN Reason: Flush Discontinued Medications Diphenhydramine HCl (Benadryl) 25 mg IV NOW ONE Stop: 02/12/19 22:41 Last Admin: 02/12/19 22:47 Dose: 25 mg Documented by: VILMAOTEM Sodium Chloride (Normal Saline 0.9%) 1,000 mls @ 1,000 mls/hr IV BOLUS ONE Stop: 02/12/19 22:23 Last Infusion: 02/12/19 23:12 Dose: 0 mls/hr Documented by: Admin: 02/12/19 21:57 Dose: 1,000 mls/hr Documented by: DONTA Lactated Ringer's (Lactated Ringers) 1,000 mls @ 1,000 mls/hr IV BOLUS ONE Stop: 02/12/19 23:57 Last Infusion: 02/13/19 00:04 Dose: 0 mls/hr Documented by: Admin: 02/12/19 23:18 Dose: 1,000 mls/hr Documented by: DONTA Levofloxacin (Levaquin) 500 mg in 100 mls @ 100 mls/hr IV NOW ONE Stop: 02/13/19 00:45 Last Infusion: 02/13/19 00:23 Dose: 100 mls/hr Documented by: Admin: 02/13/19 00:03 Dose: 100 mls/hr Documented by: CHEIKH Sodium Chloride (Normal Saline 0.9%) 1,000 mls @ 1,000 mls/hr IV BOLUS ONE Stop: 02/13/19 00:57 Last Infusion: 02/13/19 00:23 Dose: 1,000 mls/hr Documented by: Admin: 02/13/19 00:03 Dose: 1,000 mls/hr Documented by: CHEIKH Methylprednisolone (Solu-Medrol 125 Mg Vial) 125 mg IV NOW ONE Stop: 02/12/19 22:41 Last Admin: 02/12/19 22:47 Dose: 125 mg Documented by: CHEIKH Ondansetron HCl (Zofran) 4 mg IV NOW ONE Stop: 02/12/19 21:25 Last Admin: 02/12/19 21:58 Dose: 4 mg Documented by: DONTA Pantoprazole Sodium (Protonix) 40 mg IV NOW ONE Stop: 02/12/19 22:54 Last Admin: 02/12/19 22:59 Dose: 40 mg Documented by: DONTA Vital Signs Vital signs: Vital Signs - 8 hr 02/12/19 22:37 02/12/19 22:54 02/12/19 23:24 Pulse Rate 94 H 97 H 104 H Respiratory Rate 22 18 17 Blood Pressure [Left Arm] 113/73 117/55 L 113/61 Pulse Oximetry 100 98 98 02/12/19 23:44 Pulse Rate 100 H Respiratory Rate 25 H Blood Pressure [Left Arm] 113/56 L Pulse Oximetry 96 MDM - Nausea/Vomiting/Diarrhea Lab Data Result diagrams: 02/12/19 21:57 02/12/19 21:57 Labs: Lab Results 02/12/19 02/12/19 02/12/19 Range/Units 21:37 21:57 21:57 WBC 16.6 H (4.5-11.0) X10^3/uL RBC 5.55 (4.5-5.9) X10^6/uL Hgb 17.3 (13.5-17.5) g/dL Hct 51.0 (41-53) % MCV 91.9 (80-100) fL MCH 31.2 (26-34) PG MCHC 33.9 (30-36) % RDW 13.6 (11.6-14.8) % Plt Count 269 (150-400) X10^3/uL Neut % (Auto) 87.5 H (50-75) % Lymph % (Auto) 5.6 L (25-40) % [place] % (Auto) 5.9 (3-14) % Eos % (Auto) 0.7 L (2-4) % Baso % (Auto) 0.3 (0-2) % Neut # (Auto) 76757 H (1210-8139) /uL Lymph # (Auto) 900 L (0125-9646) /uL [place] # (Auto) 1000 H (0-900) /uL Eos # (Auto) 100 (0-450) /uL Baso # (Auto) 0 (0-100) /uL Sodium (137-145) mmol/L Potassium (3.4-5.1) mmol/L Chloride (98-107) mmol/L Carbon Dioxide (22-32) mmol/L BUN (9-20) mg/dL Creatinine (0.66-1.25) mg/dL Estimated GFR (>60) mL/min BUN/Creatinine Ratio (6-22) Glucose (80-110) mg/dL Lactate (0.7-2.1) mmol/L Calcium (8.4-10.2) mg/dL Total Bilirubin (0.2-1.3) mg/dL AST (17-59) IU/L ALT (<50) IU/L Alkaline Phosphatase (38-126) U/L Total Protein (6.3-8.2) g/dL Albumin (3.5-5.0) g/dL Globulin (1.7-4.1) g/dL Albumin/Globulin Ratio (1.0-2.8) Lipase 131 (23-300) U/L Stl C. cayetanensis PCR Not detected (Not Detect) Stool Rotavirus (PCR) Not detected (Not Detect) Stool Adenovirus (PCR) Not detected (Not Detect) Stool Astrovirus (PCR) Not detected (Not Detect) Stool Cryptosporidium PCR Not detected (Not Detect) Stl E.coli Shiga Tox PCR Not detected (Not Detect) St Sh/Enteroin Ecoli PCR Not detected (Not Detect) Stool E coli O157 PCR Not detected (Not Detect) Stl Enterotoxigenic E PCR Not detected (Not Detect) Stool EPEC (PCR) Detected H (Not Detect) Stl E. histolytica PCR Not detected (Not Detect) Stool Giardia Lamblia PCR Not detected (Not Detect) Stool Sapovirus (PCR) Not detected (Not Detect) Stl P. shigelloides PCR Not detected (Not Detect) St Y.enterocolitica PCR Not detected (Not Detect) Stool Vibrio (PCR) Not detected (Not Detect) Stl Vibrio cholerae PCR Not detected (Not Detect) Stl Enteroaggr Ecoli PCR Not detected (Not Detect) Stl Norovirus GI/GII PCR Not detected (Not Detect) Campylobacter (PCR) Not detected (Not Detect) C. difficile Tox (PCR) Not detected (Not Detect) Salmonella (PCR) Not detected (Not Detect) 02/12/19 02/12/19 Range/Units 21:57 22:30 WBC (4.5-11.0) X10^3/uL RBC (4.5-5.9) X10^6/uL Hgb (13.5-17.5) g/dL Hct (41-53) % MCV (80-100) fL MCH (26-34) PG MCHC (30-36) % RDW (11.6-14.8) % Plt Count (150-400) X10^3/uL Neut % (Auto) (50-75) % Lymph % (Auto) (25-40) % [place] % (Auto) (3-14) % Eos % (Auto) (2-4) % Baso % (Auto) (0-2) % Neut # (Auto) (8817-1657) /uL Lymph # (Auto) (9387-9177) /uL [place] # (Auto) (0-900) /uL Eos # (Auto) (0-450) /uL Baso # (Auto) (0-100) /uL Sodium 145 (137-145) mmol/L Potassium 4.7 (3.4-5.1) mmol/L Chloride 104 (98-107) mmol/L Carbon Dioxide 26 (22-32) mmol/L BUN 24 H (9-20) mg/dL Creatinine 0.90 (0.66-1.25) mg/dL Estimated GFR > 60.0 (>60) mL/min BUN/Creatinine Ratio 26.7 H (6-22) Glucose 203 H (80-110) mg/dL Lactate 4.6 H* (0.7-2.1) mmol/L Calcium 9.9 (8.4-10.2) mg/dL Total Bilirubin 0.5 (0.2-1.3) mg/dL AST 40 (17-59) IU/L ALT 27 (<50) IU/L Alkaline Phosphatase 93 (38-126) U/L Total Protein 8.5 H (6.3-8.2) g/dL Albumin 5.3 H (3.5-5.0) g/dL Globulin 3.2 (1.7-4.1) g/dL Albumin/Globulin Ratio 1.7 (1.0-2.8) Lipase (23-300) U/L Stl C. cayetanensis PCR (Not Detect) Stool Rotavirus (PCR) (Not Detect) Stool Adenovirus (PCR) (Not Detect) Stool Astrovirus (PCR) (Not Detect) Stool Cryptosporidium PCR (Not Detect) Stl E.coli Shiga Tox PCR (Not Detect) St Sh/Enteroin Ecoli PCR (Not Detect) Stool E coli O157 PCR (Not Detect) Stl Enterotoxigenic E PCR (Not Detect) Stool EPEC (PCR) (Not Detect) Stl E. histolytica PCR (Not Detect) Stool Giardia Lamblia PCR (Not Detect) Stool Sapovirus (PCR) (Not Detect) Stl P. shigelloides PCR (Not Detect) St Y.enterocolitica PCR (Not Detect) Stool Vibrio (PCR) (Not Detect) Stl Vibrio cholerae PCR (Not Detect) Stl Enteroaggr Ecoli PCR (Not Detect) Stl Norovirus GI/GII PCR (Not Detect) Campylobacter (PCR) (Not Detect) C. difficile Tox (PCR) (Not Detect) Salmonella (PCR) (Not Detect) Point of Care Testing Glucose POC 178 Critical Care Time Critical Care Time Critical Care Time: Yes Total Critical Care Time: 30 Attestation: The high probability of a clinically significant, sudden or life threatening deterioration of the [CV] system(s) required my full and direct attention, intervention and personal management. The aggregate critical care time was [30] minutes. This time is in addition to time spent performing reported procedures but includes the following: [x] Data Review and interpretation [x] Patient assessment and monitoring of vital signs [x] Documentation [x] Medication orders and management Discharge Plan Departure Patient Disposition: Admitted As Inpatient Clinical Impression: Enteritis, enteropathogenic E. coli Sepsis Qualifiers: Sepsis type: sepsis due to unspecified organism Sepsis acute organ dysfunction status: without acute organ dysfunction Qualified Code(s): A41.9 - Sepsis, unspecified organism Discharge Date/Time: 02/13/19 00:27 Referrals: Indra Hammond MD [Primary Care Provider] - Admit Date/Time: 02/12/19 23:48 Admit Provider: Katya Garland
[2019-02-12 21:39] VITALS: BMI 22.6
[2019-02-12] MEDS: SODIUM CHLORIDE 0.9% 1,000 ML 1000 ML IV (21:57)
[2019-02-12] MEDS: ONDANSETRON 4 MG/2 ML INJ IV (21:58)
[2019-02-12 22:33] LABS: Add Manual Diff / Slide Review NO; Basophils Absolute Auto 0 /uL (0-100); Basophils Percent Auto 0.3 % (0-2); Eosinophils Absolute Auto 100 /uL (0-450); Eosinophils Percent Auto 0.7 % (2-4); Hemoglobin 17.3 g/dL (13.5-17.5); Lymphocytes Absolute Auto 900 /uL (1100-4500); Lymphocytes Percent Auto 5.6 % (25-40); Mean Corpuscular HGB Conc 33.9 % (30-36); Mean Corpuscular Hemoglobin 31.2 PG (26-34); Mean Corpuscular Volume 91.9 fL (80-100); Monocytes Absolute Auto 1000 /uL (0-900); Monocytes Percent Auto 5.9 % (3-14); Neutrophils Absolute Auto 14500 /uL (1500-7000); Neutrophils Percent Auto 87.5 % (50-75); Platelet Count 269 X10^3/uL (150-400); Red Blood Cell Count 5.55 X10^6/uL (4.5-5.9); Red Cell Distribution Width 13.6 % (11.6-14.8); White Blood Cell Count 16.6 X10^3/uL (4.5-11.0)
[2019-02-12 22:37] VITALS: BP 113/73; PULSE 94; RESP 22; O2SAT 100
[2019-02-12 22:40] LABS: Lipase 131 U/L (23-300)
[2019-02-12 22:41] LABS: Alanine Aminotransferase 27 IU/L (<50); Albumin 5.3 g/dL (3.5-5.0); Albumin Globulin Ratio 1.7 (1.0-2.8); Alkaline Phosphatase 93 U/L (38-126); Aspartate Aminotransferase 40 IU/L (17-59); BUN Creatinine Ratio 26.7 (6-22); Bilirubin Total 0.5 mg/dL (0.2-1.3); Blood Urea Nitrogen 24 mg/dL (9-20); Calcium 9.9 mg/dL (8.4-10.2); Carbon Dioxide 26 mmol/L (22-32); Chloride 104 mmol/L (98-107); Estimated Glomerular Filt Rate > 60.0 mL/min (>60); Globulin 3.2 g/dL (1.7-4.1); Glucose 203 mg/dL (80-110); HEMOLYSIS 34 (0-50); Potassium 4.7 mmol/L (3.4-5.1); Sodium 145 mmol/L (137-145); Total Protein 8.5 g/dL (6.3-8.2)
--- NOTE | 2019-02-12 22:45 | PC.NURSE ---
Josue [phone]
[2019-02-12] MEDS: diphenhydrAMINE 50 MG/ML VIAL 25 MG IV (22:47)
[2019-02-12] MEDS: methylPREDNISolone 125 MG/2 ML VIAL IV (22:47)
--- NOTE | 2019-02-12 22:49 | PC.NURSE ---
pt complaining of being cold, warmed IV fluids administered with warm blankets
[2019-02-12 22:54] VITALS: BP 117/55; PULSE 97; RESP 18; O2SAT 98
--- NOTE | 2019-02-12 22:57 | DI.CT.S_ITS ---
PROCEDURE: CT ABDOMEN PELVIS W CON INDICATIONS: abdominal pain, nausea, vomiting, diarrhia, Lactate 4+, atrial fib TECHNIQUE: After the administration of intravenous contrast, 5 mm thick sections acquired from the diaphragm to the symphysis. 5 mm coronal and sagittal reformats were acquired. For radiation dose reduction, the following was used: automated exposure control, adjustment of mA and/or kV according to patient size. COMPARISON: [facility], CT, CT ABDOMEN PELVIS W CON, 03/24/2018, 1:19. FINDINGS: Image quality: Excellent. ABDOMEN: Lung bases: Lung bases are clear. Heart size is normal. Solid organs: Liver is mildly enlarged. Gallbladder distended otherwise unremarkable. Biliary system is non dilated. Pancreas enhances normally. Spleen is normal in size and enhancement. No adrenal nodules. Kidneys demonstrate normal size and enhancement, without hydronephrosis. Peritoneum and bowel: Distal gastric wall prominence however this could be due to collapsed state at the time of the exam and recommend clinical correlation. This appears unchanged No free fluid or air. Normal appendix. Colonic diverticulosis is seen. No definite focal inflamed diverticulum. No interval change Nodes and vessels: No retroperitoneal or mesenteric adenopathy by size criteria. Aorta and inferior vena cava are normal in size. Miscellaneous: No ventral hernias. PELVIS: Genitourinary: Bladder wall thickness is normal. Miscellaneous: No inguinal hernias or adenopathy. Bones: No suspicious bony lesions. No vertebral body compression fractures. IMPRESSION: Mild hepatomegaly. Recommend clinical correlation with LFTs. Mildly distended appearance of the gallbladder however technically nonspecific finding recommend clinical correlation. Colonic diverticulosis as before. Dictated by: Clif Munguia M.D. on 02/13/2019 at 7:28 Approved by: Clif Munguia M.D. on 02/13/2019 at 7:35
[2019-02-12] MEDS: PANTOPRAZOLE 40 MG VIAL IV (22:59)
[2019-02-12 23:05] LABS: Campylobacter Not Detected (Not Detect); Clostridium difficile toxin AB Not Detected (Not Detect); Enteroaggregative E.coli Not Detected (Not Detect); Enteropathogenic E.coli Detected (Not Detect); Plesiomonsa shigelloides Not Detected (Not Detect); Salmonella Not Detected (Not Detect); Vibrio Not Detected (Not Detect); Vibrio cholerae Not Detected (Not Detect); Yersinia enterocolitica Not Detected (Not Detect)
[2019-02-12 23:06] LABS: Adenovirus F 40/41 Not Detected (Not Detect); Astrovirus Not Detected (Not Detect); Cryptosporidium Not Detected (Not Detect); Cyclospora cayetanensis Not Detected (Not Detect); Entamoeba histolytica Not Detected (Not Detect); Enterotoxigenic E.coli It/st Not Detected (Not Detect); Giardia lamblia Not Detected (Not Detect); Norovirus GI/GII Not Detected (Not Detect); Rotavirus A Not Detected (Not Detect); Sapovirus Not Detected (Not Detect); Shiga-like toxin-prod E.coli Not Detected (Not Detect); Shigella/Enteroinvasive E.coli Not Detected (Not Detect)
[2019-02-12] MEDS: LACTATED RINGERS 1,000 ML 1000 ML IV (23:18)
[2019-02-12 23:24] VITALS: BP 113/61; PULSE 104; RESP 17; O2SAT 98
[2019-02-12 23:44] VITALS: BP 113/56; PULSE 100; RESP 25; O2SAT 96
[2019-02-13] VITALS (11 sets, daily range): BP systolic 96–123; BP diastolic 54–67; PULSE 60–102; RESP 15–20; TEMP 36.5–37.3; O2SAT 95–100; BMI 22.6
[2019-02-13] MEDS: levoFLOXacin 500 MG/100 ML PIGGYBACK 100 MG IV ×2 (00:03→22:09)
[2019-02-13] MEDS: SODIUM CHLORIDE 0.9% 1,000 ML 1000 ML IV (00:03)
[2019-02-13 00:36] LABS: Reflexed Lactate in 2 Hours Y
[2019-02-13 00:47] LABS: Lactate (Lactic Acid) 4.6 mmol/L (0.7-2.1)
[2019-02-13 01:05] LABS: Lactate 2HR (Lactic Acid Rflx) 1.8 mmol/L (0.7-2.1)
--- NOTE | 2019-02-13 01:25 | PC.ADMIT ---
Safe hand off from VISUAL MERCHANDISING DIRECTOR. Pt brought to unit on stretcher and ambulated to room from hallway. Vital signs stable. Has 3/10 abdominal pain and nausea. Bowel tones active in all 4 quadrants. Pt is NPO. Bed is low and locked, bed alarm is on, Call light is within reach. Home medications are in night pharmacy. [email or web address] Thelma Mike Admission Note: The patient,Jann Diehl,64 y/o, was given written information regarding hospital policies, unit procedures and contact persons. Patient's smoking status: Former smoker. Vital Signs - 8 hr 02/12/19 22:37 02/12/19 22:54 02/12/19 23:24 Temperature Pulse Rate 94 H 97 H 104 H Respiratory Rate 22 18 17 Blood Pressure Blood Pressure [Left Arm] 113/73 117/55 L 113/61 Pulse Oximetry 100 98 98 02/12/19 23:44 02/13/19 00:17 02/13/19 00:45 Temperature 99.2 F Pulse Rate 100 H 102 H 101 H Respiratory Rate 25 H 15 16 Blood Pressure 123/67 Blood Pressure [Left Arm] 113/56 L 110/54 L Pulse Oximetry 96 99 95
[2019-02-13] MEDS: SODIUM CHLORIDE 0.9% 1,000 ML 250 ML IV ×2 (02:11→06:15)
[2019-02-13] MEDS: ONDANSETRON 4 MG/2 ML INJ IV ×3 (02:11→16:10)
[2019-02-13 05:31] LABS: Add Manual Diff / Slide Review NO; Basophils Absolute Auto 0 /uL (0-100); Basophils Percent Auto 0.1 % (0-2); Eosinophils Absolute Auto 0 /uL (0-450); Hematocrit 40.1 % (41-53); Lymphocytes Absolute Auto 300 /uL (1100-4500); Lymphocytes Percent Auto 3.5 % (25-40); Mean Corpuscular HGB Conc 34.8 % (30-36); Mean Corpuscular Hemoglobin 31.6 PG (26-34); Mean Corpuscular Volume 90.7 fL (80-100); Monocytes Absolute Auto 200 /uL (0-900); Neutrophils Absolute Auto 8600 /uL (1500-7000); Neutrophils Percent Auto 94.4 % (50-75); Platelet Count 175 X10^3/uL (150-400); Red Blood Cell Count 4.42 X10^6/uL (4.5-5.9); Red Cell Distribution Width 13.4 % (11.6-14.8); White Blood Cell Count 9.1 X10^3/uL (4.5-11.0)
[2019-02-13 05:32] LABS: Blood Urea Nitrogen 21 mg/dL (9-20); Calcium 8.4 mg/dL (8.4-10.2); Carbon Dioxide 22 mmol/L (22-32); Chloride 112 mmol/L (98-107); Estimated Glomerular Filt Rate > 60.0 mL/min (>60); Glucose 224 mg/dL (80-110); HEMOLYSIS < 15 (0-50); Potassium 4.8 mmol/L (3.4-5.1); Sodium 142 mmol/L (137-145)
[2019-02-13] MEDS: SODIUM CHLORIDE 0.9% FLUSH 10 ML IV (06:24)
--- NOTE | 2019-02-13 08:46 | CM.DANOTE ---
Discharge Planning/Care Management DCP: assessment: case received, EMR reviewed (no H&P yet but A physicians are rounding this morning.) Met with pt and introduced self and role. Pt is a 64 year old male who admitted last night to care of [facility] staff. Payer: [employer]. PCP: through the [facility] in [facility]. Dr. Ochoa is now retired and pt says he now sees the new physician Dr. Cowan.. does not recall his name. He is also followed by the [facility] clinic: Dr. Hammond and partners. Pt reports his living situation has remained same as his last admission here in early Mar 2018. He has a supportive roommate, a good friend Stephanie (who will likely take him home at d/c) and his 2 daughters who are POA. November Little and Kristan. both live out of town). The POA and AD paperwork is noted in scan and copy of same placed into red folder. DCP team will be following as POC unfolds to assist with any d/c needs that may arise. CM Discharge Assessment Start: 02/13/19 08:43 Freq: Status: Active Protocol: Document 02/13/19 08:44 ITV (Rec: 02/13/19 08:45 ITV [id number]) Discharge Planning Assessment Advance Directives? Yes Advance Directives on File Yes History Provided By Patient,Medical Record Prior Living Arrangements House Household Members friend(s) Comment lives with roommate/friend Josue Linette: [phone]. we help each other out Is patient alert and oriented? Yes Whiteboard Updated in Patient Room with Yes name and ext. # of [employer] Review Status In Process
--- NOTE | 2019-02-13 09:04 | PM.HP.1 ---
History of Present Illness History of Present Illness Date Patient Seen: 02/13/19 Time Patient Seen: 08:05 Chief complaint: states needs fluids Narrative: Patient is a 64 yo male with chronic pancreatitis and chronic intermittent abdominal pain who has been vomiting and having multiple episodes of diarrhea over the past 30 hours. He is unable to keep anything down despite using his home antiemetics of zofran and promethazine. He also is stooling multiple times. Its bown and not bloody. His stool was EPEC positive in the ED and his lactate was 4.0. He was treated for sepsis with antibiotics and a 30 cc/kg bolus. This improved his situation and while he is not back to baseline this morning he is feeling better. He feels nauseous. He tells me that it was difficult for him to even think prior to coming to the ED. He has his baseline RUQ discomfort but no other abdominal pain. He denies chest pain or shortness of breath. He has a chronic cough because of his frequent vomiting from his pancreatitis and reflux. 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) Paroxysmal atrial fibrillation (Chronic) Peripheral vascular disease (Chronic) Psoriasis (Chronic) Surgical History H/O exploratory laparotomy (Acute) Family & Social History Social History: household members friend(s) Prior Living Arrangements House Safety & Behavioral: Feels Safe in Current Yes Environment Been Physically Hurt or No Threatened By a Person Suicidal Ideation Description None Suicide Plan Description No Plan Tobacco & Substance use: Smoking Status Former smoker alcohol intake frequency 0-2 drinks per day Substance Use Type marijuana Meds Home Medications and Allergies Home Medications Medication Instructions Recorded Confirmed Type clopidogrel 75 mg PO Q DAY #0 04/15/08 02/13/19 History diclofenac sodium [Voltaren] 1 crys TOPICAL PRN PRN #0 03/14/17 02/13/19 History Creon 1 cap PO DIRECTED 08/17/17 02/13/19 History Creon 1 cap PO DIRECTED 08/17/17 02/13/19 History Novolog Flexpen U-100 Insulin 2 unit SUB-Q TID 08/17/17 02/13/19 History omeprazole 40 mg PO BID 08/17/17 02/13/19 History acetaminophen 325 mg PO Q4HP PRN 09/25/17 02/13/19 History cholecalciferol (vitamin D3) 1,000 unit PO BID 09/25/17 02/13/19 History [Vitamin D3] dabigatran etexilate 150 mg PO BID 03/24/18 02/13/19 History oxycodone 5 mg PO Q4HR PRN #20 tab 03/31/18 02/13/19 Rx lisinopril 20 mg tablet 2.5 mg PO DAILY tab 11/19/18 02/13/19 History metoprolol tartrate 50 mg tablet 12.5 mg PO BID tab 11/19/18 02/13/19 History methylphenidate HCl 20 mg tablet See Rx Instructions .ROUTE 01/21/19 02/13/19 Rx .COMPLEX #90 tablet Lantus U-100 Insulin 10 units SUBCUT DAILY 02/13/19 02/13/19 History fluticasone propionate 50 mcg INTRANASAL DAILY 02/13/19 02/13/19 History ondansetron 4 mg PO Q6H PRN 02/13/19 02/13/19 History ondansetron 8 mg PO PRN PRN 02/13/19 02/13/19 History pravastatin 80 mg PO DAILY 02/13/19 02/13/19 History Allergies Allergy/AdvReac Type Severity Reaction Status Date / Time Iodine and Iodide Containing Allergy Severe Anaphylaxis Verified 11/19/18 08:56 Produc [IODINE AND IODIDE CONTAINING PRODUC] Sulfa (Sulfonamide Allergy Severe Anaphylaxis Verified 11/19/18 08:56 Antibiotics) [SULFA (SULFONAMIDE ANTIBIOTICS)] Review of Systems Review of Systems ROS Unobtainable: All systems reviewed & are unremarkable except as noted in HPI and below Exam Vital Signs (past 8 hours): - 02/13/19 05:42 02/13/19 07:45 Temperature 98.4 F 98.1 F Pulse Rate 90 85 Respiratory Rate 16 18 Blood Pressure 108/57 L 96/60 Pulse Oximetry 97 100 Oxygen Delivery Method Room Air Oxygen Flow Rate 0 Const General: cooperative, well developed, well groomed and ill appearing Nutritional Appearance: average body habitus and thin Orientation: alert, awake and oriented x3 Resp Effort & Inspection: normal respiratory effort and able to speak in complete sentences Auscultation: clear to auscultation bilaterally, no rales, no rhonchi and no wheezes Cardio Palpation: normal PMI Rate: regular rate Rhythm: regular rhythm Heart Sounds: S1 normal and S2 normal Pulses: radial pulses present bilaterally GI Inspection: normal to inspection, scaphoid and scar Palpation: soft Auscultation: hypoactive bowel sounds Extrem General: normal to inspection, no pedal edema and no calf tenderness Objective Labs Result Diagrams: 02/13/19 05:07 02/13/19 05:07 Labs: Laboratory Results - last 24 hr 02/12/19 02/12/19 02/12/19 21:37 21:57 21:57 WBC 16.6 H RBC 5.55 Hgb 17.3 Hct 51.0 MCV 91.9 MCH 31.2 MCHC 33.9 RDW 13.6 Plt Count 269 Neut % (Auto) 87.5 H Lymph % (Auto) 5.6 L [place] % (Auto) 5.9 Eos % (Auto) 0.7 L Baso % (Auto) 0.3 Neut # (Auto) 25447 H Lymph # (Auto) 900 L [place] # (Auto) 1000 H Eos # (Auto) 100 Baso # (Auto) 0 Sodium Potassium Chloride Carbon Dioxide BUN Creatinine Estimated GFR BUN/Creatinine Ratio Glucose Lactate Calcium Total Bilirubin AST ALT Alkaline Phosphatase Total Protein Albumin Globulin Albumin/Globulin Ratio Lipase 131 Stl C. cayetanensis PCR Not detected Stool Rotavirus (PCR) Not detected Stool Adenovirus (PCR) Not detected Stool Astrovirus (PCR) Not detected Stool Cryptosporidium PCR Not detected Stl E.coli Shiga Tox PCR Not detected St Sh/Enteroin Ecoli PCR Not detected Stool E coli O157 PCR Not detected Stl Enterotoxigenic E PCR Not detected Stool EPEC (PCR) Detected H Stl E. histolytica PCR Not detected Stool Giardia Lamblia PCR Not detected Stool Sapovirus (PCR) Not detected Stl P. shigelloides PCR Not detected St Y.enterocolitica PCR Not detected Stool Vibrio (PCR) Not detected Stl Vibrio cholerae PCR Not detected Stl Enteroaggr Ecoli PCR Not detected Stl Norovirus GI/GII PCR Not detected Campylobacter (PCR) Not detected C. difficile Tox (PCR) Not detected Salmonella (PCR) Not detected 02/12/19 02/12/19 02/13/19 21:57 22:30 00:46 WBC RBC Hgb Hct MCV MCH MCHC RDW Plt Count Neut % (Auto) Lymph % (Auto) [place] % (Auto) Eos % (Auto) Baso % (Auto) Neut # (Auto) Lymph # (Auto) [place] # (Auto) Eos # (Auto) Baso # (Auto) Sodium 145 Potassium 4.7 Chloride 104 Carbon Dioxide 26 BUN 24 H Creatinine 0.90 Estimated GFR > 60.0 BUN/Creatinine Ratio 26.7 H Glucose 203 H Lactate 4.6 H* 1.8 Calcium 9.9 Total Bilirubin 0.5 AST 40 ALT 27 Alkaline Phosphatase 93 Total Protein 8.5 H Albumin 5.3 H Globulin 3.2 Albumin/Globulin Ratio 1.7 Lipase Stl C. cayetanensis PCR Stool Rotavirus (PCR) Stool Adenovirus (PCR) Stool Astrovirus (PCR) Stool Cryptosporidium PCR Stl E.coli Shiga Tox PCR St Sh/Enteroin Ecoli PCR Stool E coli O157 PCR Stl Enterotoxigenic E PCR Stool EPEC (PCR) Stl E. histolytica PCR Stool Giardia Lamblia PCR Stool Sapovirus (PCR) Stl P. shigelloides PCR St Y.enterocolitica PCR Stool Vibrio (PCR) Stl Vibrio cholerae PCR Stl Enteroaggr Ecoli PCR Stl Norovirus GI/GII PCR Campylobacter (PCR) C. difficile Tox (PCR) Salmonella (PCR) 02/13/19 02/13/19 05:07 05:07 WBC 9.1 RBC 4.42 L Hgb 14.0 Hct 40.1 L MCV 90.7 MCH 31.6 MCHC 34.8 RDW 13.4 Plt Count 175 Neut % (Auto) 94.4 H Lymph % (Auto) 3.5 L [place] % (Auto) 2.0 L Eos % (Auto) 0.0 L Baso % (Auto) 0.1 Neut # (Auto) 8600 H Lymph # (Auto) 300 L [place] # (Auto) 200 Eos # (Auto) 0 Baso # (Auto) 0 Sodium 142 Potassium 4.8 Chloride 112 H Carbon Dioxide 22 BUN 21 H Creatinine 0.70 Estimated GFR > 60.0 BUN/Creatinine Ratio 30.0 H Glucose 224 H Lactate Calcium 8.4 Total Bilirubin AST ALT Alkaline Phosphatase Total Protein Albumin Globulin Albumin/Globulin Ratio Lipase Stl C. cayetanensis PCR Stool Rotavirus (PCR) Stool Adenovirus (PCR) Stool Astrovirus (PCR) Stool Cryptosporidium PCR Stl E.coli Shiga Tox PCR St Sh/Enteroin Ecoli PCR Stool E coli O157 PCR Stl Enterotoxigenic E PCR Stool EPEC (PCR) Stl E. histolytica PCR Stool Giardia Lamblia PCR Stool Sapovirus (PCR) Stl P. shigelloides PCR St Y.enterocolitica PCR Stool Vibrio (PCR) Stl Vibrio cholerae PCR Stl Enteroaggr Ecoli PCR Stl Norovirus GI/GII PCR Campylobacter (PCR) C. difficile Tox (PCR) Salmonella (PCR) Assessment & Plan Assessment & Plan narrative: 64 yo male with sepsis appropriately treated in the ED with levofloxacin, 30 cc/kg bolus with drop in lactate, improvement in heart rate and blood pressure. Has only had one stool overnight and no more vomitting. EPEC enteritis: leukocytosis, diarrhea and vomiting have improved - continue NPO will allow sips and chips, consider advancing later today - continue levofloxacin for 3 total doses - continue fluids, will add some D5 Atrial fibrillation: heart rate is regular. - continue metoprolol - continue dabigatran Hypertension: - has been hypotensive so will hold additional antihypertensives except metoprolol Chronic pancreatitis: - NPO for now so will not need his digestive enzymes Peripheral artery disease: - will continue his clopidogrel Diabetes: - q6 H blood glucose checks with low dose sliding scale Code status: full for now. will discuss. DVT prophylaxis: on dabigatran Due to patients co-morbidities he remains in need of supportive care and monitoring while he recovers from this illness. Anticipate another 24-48 hours of care.
[2019-02-13] MEDS: DABIGATRAN 75 MG CAPSULE 150 MG PO ×2 (10:58→22:09)
[2019-02-13] MEDS: METOPROLOL IR 25 MG TABLET 12.5 MG PO ×2 (10:58→22:09)
[2019-02-13] MEDS: DEXTROSE 5%-0.45% NS 1,000 ML 150 ML IV ×2 (10:58→20:39)
[2019-02-13] MEDS: CLOPIDOGREL 75 MG TABLET PO (10:58)
--- NOTE | 2019-02-13 12:19 | PC.NURSE ---
Patien remains NPO. Dr. Garland into see him and ordered his po meds. He is diabetic but insulin not ordered yet. BS this am 216,164. Abdomen is non-distended and BT +X4. Pt had a bowel movement earlier this morning but nothing since. He is on iv fluids and tolerating well. Denies nausea after giving meds. He has had visitors in his room all morning.
[2019-02-13] MEDS: INSULIN ASPART 100 UNIT/ML INSULN PEN SUBCUT ×2 (13:00→17:34)
--- NOTE | 2019-02-13 14:59 | DIET.PN ---
Dietary Note Assessment: Mr. Diehl is a 64 yo male with chronic pancreatitis and intermittent abdominal pain who has been vomiting and having multiple episodes of diarrhea over the past 30 hours. He reports to me he has not vomited today there is nothing left, but continues to have nausea and several episodes of diarrhea. He has long standing hx of insulin dependent type 2 diabetes which he states if fairly controlled. He is able to share his medication regimen and provides a detailed notebook of food logs. Pt reports being very active with hiking and other activities with his . He finds it challenging to get in enough calories to meet his nutritional needs without feeling sick. He reports no alcohol intake and that he primarily follows a plant based, fish and fowl diet avoiding dairy and eggs. HT: 177.8 cm WT: 74 kg UBW: 86 kg BMI: 23.4 Labs: Hct: 40.1 L Hgb: 14 N BUN: 21 H Gluc: 203, 224 Alb: 5.3 H MNA: 13 Todd: 23 Nutrition Diagnosis: Interventions: 1. Eat nonfat or low-fat foods such as Grains: 5 to 6 servings (1 ounce) each day 2. Try to eat more F/V. Vegetables: 2? to 3 cups each day. Eat a variety of vegetables, especially dark-green and red and orange vegetables and beans and peas. Fruits: 2 cups each day. 3. Consume low fat protein foods (meat, poultry, fish, and beans): 5 to 6 ounces each day (1 egg or ? cup beans counts as 1 ounce) 4. Discussed calorie, pro, and fat needs keeping the total amount of fat to 25% of total calories. 5. Discussed eating small, low fat meals and drinking enough fluids to help improve pain. 6. Reminded importance of avoiding alcoholic beverages. 7. Discussed diabetes care. Discussed insulin regimen and insulin to carb ratios. Recommended patient check BG before each meal to more closely assess insulin for better glucose control. Diet Order: NPO EER: Calories: 2200 @ 30 tyrel/kg ; Pro: 95 g @1.3 g/kg ; Fat: 55-60g @ 25% total tyrel Monitoring/Evaluations: Diet advance, diet tolerance, weight, associated labs.
[2019-02-13] MEDS: PANTOPRAZOLE 40 MG VIAL IV (17:41)
[2019-02-13] MEDS: diphenhydrAMINE 25 MG TABLET PO (22:10)
[2019-02-14] VITALS (9 sets, daily range): BP systolic 93–114; BP diastolic 62–66; PULSE 59–64; RESP 12–20; TEMP 35.9–36.6; O2SAT 93–100
[2019-02-14] MEDS: OXYCODONE IR 5 MG TABLET PO ×4 (00:13→16:10)
[2019-02-14] MEDS: ONDANSETRON 4 MG/2 ML INJ IV (02:27)
--- NOTE | 2019-02-14 03:55 | PC.NURSE ---
NOC Note: Pt has had difficulty getting sleep tonight, he was given prn Benadryl 25mg at HS as ordered, Pt reports that he uses 50mg in order to get sleep at home. Pt has also been given Oxycodone for pain and Zofran for nausea so far this shift.
[2019-02-14] MEDS: DEXTROSE 5%-0.45% NS 1,000 ML 150 ML IV ×2 (04:28→20:52)
[2019-02-14 04:58] LABS: Add Manual Diff / Slide Review NO; Basophils Absolute Auto 0 /uL (0-100); Basophils Percent Auto 0.2 % (0-2); Eosinophils Absolute Auto 0 /uL (0-450); Eosinophils Percent Auto 0.5 % (2-4); Hematocrit 38.8 % (41-53); Hemoglobin 13.1 g/dL (13.5-17.5); Lymphocytes Absolute Auto 1100 /uL (1100-4500); Lymphocytes Percent Auto 14.3 % (25-40); Mean Corpuscular HGB Conc 33.7 % (30-36); Mean Corpuscular Hemoglobin 30.9 PG (26-34); Mean Corpuscular Volume 91.7 fL (80-100); Monocytes Absolute Auto 500 /uL (0-900); Neutrophils Absolute Auto 6100 /uL (1500-7000); Platelet Count 193 X10^3/uL (150-400); Red Blood Cell Count 4.23 X10^6/uL (4.5-5.9); Red Cell Distribution Width 13.5 % (11.6-14.8); White Blood Cell Count 7.8 X10^3/uL (4.5-11.0)
[2019-02-14 05:04] LABS: BUN Creatinine Ratio 21.7 (6-22); Blood Urea Nitrogen 13 mg/dL (9-20); Calcium 8.8 mg/dL (8.4-10.2); Carbon Dioxide 24 mmol/L (22-32); Chloride 107 mmol/L (98-107); Estimated Glomerular Filt Rate > 60.0 mL/min (>60); Glucose 172 mg/dL (80-110); HEMOLYSIS < 15 (0-50); Sodium 139 mmol/L (137-145)
--- NOTE | 2019-02-14 08:14 | P.PN_ITS ---
Subjective Subjective Date Patient Seen: 02/14/19 Time Patient Seen: 08:14 Interval history: Enteritis. Patient is feeling somewhat better but minimally so. Doing some discomfort in his abdomen that seemed to be lower abdomen. His usual pancreatic pain is above the belly button. Stool output has decreased significantly. Still relatively nauseated. Not interested in advancing to clear liquids yet. Normal urination. Exam Vital Signs (past 8 hours): - 02/14/19 03:00 02/14/19 05:50 Temperature 97.9 F Pulse Rate 59 L Respiratory Rate 13 Blood Pressure 98/66 Pulse Oximetry 96 100 Oxygen Delivery Method Room Air Oxygen Flow Rate 0 Narrative Exam Narrative: The patient examined hospital bed. He looks ill. Speaks quietly. Abdominal exam of generalized discomfort no rebound bowel sounds present Objective Labs Result Diagrams: 02/14/19 04:29 02/14/19 04:29 Labs: Laboratory Results - last 24 hr 02/14/19 02/14/19 04:29 04:29 WBC 7.8 RBC 4.23 L Hgb 13.1 L Hct 38.8 L MCV 91.7 MCH 30.9 MCHC 33.7 RDW 13.5 Plt Count 193 Neut % (Auto) 78.0 H Lymph % (Auto) 14.3 L [place] % (Auto) 7.0 Eos % (Auto) 0.5 L Baso % (Auto) 0.2 Neut # (Auto) 6100 Lymph # (Auto) 1100 [place] # (Auto) 500 Eos # (Auto) 0 Baso # (Auto) 0 Sodium 139 Potassium 4.0 Chloride 107 Carbon Dioxide 24 BUN 13 Creatinine 0.60 L Estimated GFR > 60.0 BUN/Creatinine Ratio 21.7 Glucose 172 H Calcium 8.8 Labs reviewed as above Assessment & Plan Assessment & Plan narrative: E coli enteritis improving. Patient has received couple dose of antibiotics empirically. Well hydrated based on his BUN. Still relatively nauseated which may be partly due to his pancreatitis. Continue IV fluids. Will add Reglan to the program. Presumably will be her probably 2 more days.
[2019-02-14] MEDS: FLUTICASONE 120 SPRAY/16 GM SPRAY.SUSP NASAL (08:35)
[2019-02-14] MEDS: PANTOPRAZOLE 40 MG VIAL IV (08:35)
[2019-02-14] MEDS: CLOPIDOGREL 75 MG TABLET PO (08:36)
[2019-02-14] MEDS: METOPROLOL IR 25 MG TABLET 12.5 MG PO (08:36)
[2019-02-14] MEDS: DABIGATRAN 75 MG CAPSULE 150 MG PO ×2 (08:36→20:52)
[2019-02-14] MEDS: METOCLOPRAMIDE 10 MG/2 ML INJ 5 MG IV ×2 (08:54→15:45)
[2019-02-14] MEDS: LORazepam 2 MG/ML INJ 0.5 MG IV (16:42)
[2019-02-14] MEDS: levoFLOXacin 500 MG/100 ML PIGGYBACK 100 MG IV (20:52)
[2019-02-14] MEDS: diphenhydrAMINE 25 MG TABLET 50 MG PO (20:53)
[2019-02-15] VITALS (11 sets, daily range): BP systolic 85–113; BP diastolic 53–71; PULSE 55–77; RESP 14–20; TEMP 36.4–37; O2SAT 83–100
[2019-02-15 05:01] LABS: Add Manual Diff / Slide Review NO; Basophils Absolute Auto 0 /uL (0-100); Basophils Percent Auto 0.4 % (0-2); Eosinophils Absolute Auto 200 /uL (0-450); Eosinophils Percent Auto 3.9 % (2-4); Hematocrit 40.1 % (41-53); Hemoglobin 13.3 g/dL (13.5-17.5); Lymphocytes Absolute Auto 1200 /uL (1100-4500); Lymphocytes Percent Auto 23.4 % (25-40); Mean Corpuscular HGB Conc 33.2 % (30-36); Mean Corpuscular Hemoglobin 30.9 PG (26-34); Mean Corpuscular Volume 92.9 fL (80-100); Monocytes Absolute Auto 400 /uL (0-900); Neutrophils Absolute Auto 3100 /uL (1500-7000); Neutrophils Percent Auto 63.3 % (50-75); Platelet Count 171 X10^3/uL (150-400); Red Blood Cell Count 4.32 X10^6/uL (4.5-5.9); Red Cell Distribution Width 13.5 % (11.6-14.8)
[2019-02-15 05:12] LABS: BUN Creatinine Ratio 13.3 (6-22); Blood Urea Nitrogen 8 mg/dL (9-20); Calcium 8.7 mg/dL (8.4-10.2); Carbon Dioxide 27 mmol/L (22-32); Chloride 109 mmol/L (98-107); Estimated Glomerular Filt Rate > 60.0 mL/min (>60); Glucose 143 mg/dL (80-110); HEMOLYSIS < 15 (0-50); Potassium 3.7 mmol/L (3.4-5.1); Sodium 140 mmol/L (137-145)
[2019-02-15] MEDS: DEXTROSE 5%-0.45% NS 1,000 ML 150 ML IV (05:43)
[2019-02-15] MEDS: OXYCODONE IR 5 MG TABLET PO ×4 (07:41→17:32)
[2019-02-15] MEDS: ONDANSETRON 4 MG/2 ML INJ IV ×3 (07:41→17:41)
--- NOTE | 2019-02-15 09:06 | PM.PN.1 ---
Subjective Subjective Date Patient Seen: 02/15/19 Time Patient Seen: 09:06 Interval history: Enteritis. Patient feeling minimally better. Decrease abdominal pain was still present. Decreased nausea is still present. No vomiting. Tolerated clear liquids last night. Still having frequent loose watery stools. No melena no hematochezia. Urine output appropriate. Is interested in trying little more substance. Specifically glycerine supplement. And oatmeal. Additionally will add his typical Creon dose with this intake as per his usual program patient well-versed in the amount of Creon he should take based on the calories per meal. Has not been out of bed much at all. His impression is his current symptoms are a exacerbation of his chronic pancreatitis that he has these periodically. The infectious part of the enteritis from his perspective has improved Exam Vital Signs (past 8 hours): - 02/15/19 04:10 02/15/19 06:19 02/15/19 07:53 Temperature 97.6 F Pulse Rate 55 L Respiratory Rate 18 Blood Pressure 96/60 Pulse Oximetry 99 94 100 02/15/19 08:00 Temperature 97.7 F Pulse Rate 60 Respiratory Rate 14 Blood Pressure 102/63 Pulse Oximetry 100 Oxygen Delivery Method Room Air Oxygen Flow Rate 0 Narrative Exam Narrative: Patient is resting quietly in his hospital bed appears pale but in no distress. Lungs clear heart regular rhythm no murmur gallop. Abdominal exam normal bowel sounds has diffuse discomfort periumbilically no rebound Objective Labs Result Diagrams: 02/15/19 04:50 02/15/19 04:50 Labs: Laboratory Results - last 24 hr 02/15/19 02/15/19 04:50 04:50 WBC 5.0 RBC 4.32 L Hgb 13.3 L Hct 40.1 L MCV 92.9 MCH 30.9 MCHC 33.2 RDW 13.5 Plt Count 171 Neut % (Auto) 63.3 Lymph % (Auto) 23.4 L [place] % (Auto) 9.0 Eos % (Auto) 3.9 Baso % (Auto) 0.4 Neut # (Auto) 3100 Lymph # (Auto) 1200 [place] # (Auto) 400 Eos # (Auto) 200 Baso # (Auto) 0 Sodium 140 Potassium 3.7 Chloride 109 H Carbon Dioxide 27 BUN 8 L Creatinine 0.60 L Estimated GFR > 60.0 BUN/Creatinine Ratio 13.3 Glucose 143 H Calcium 8.7 Labs reviewed from this morning BUN is low could probably decrease his IV fluids. Hemoglobin stable Assessment & Plan Assessment & Plan narrative: 1. Symptoms are improved nausea vomiting diarrhea abdominal pain. As stated above per how much of this is pancreatitis how much this is infectious in [place]. Patient feels a good good part of this is pancreatitis. 2. Chronic pancreatitis we will add some substance food as well as his Creon. 3. Anticipate probably 2 more days advancing diet. Will get physical therapy to assist ambulation
[2019-02-15] MEDS: FLUTICASONE 120 SPRAY/16 GM SPRAY.SUSP NASAL (09:08)
[2019-02-15] MEDS: PANTOPRAZOLE 40 MG VIAL IV (09:10)
[2019-02-15] MEDS: SODIUM CHLORIDE 0.9% 1,000 ML 75 ML IV (09:23)
--- NOTE | 2019-02-15 09:45 | PT.IIE ---
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) Narcolepsy (Chronic) Paroxysmal atrial fibrillation (Chronic) Peripheral vascular disease (Chronic) Psoriasis (Chronic) Physical Therapy Inpatient Evaluation/Re-Eval M1 PT/OT-IP Prior Functional Status Start: 02/15/19 13:00 Freq: NEEDED Status: Active Protocol: Document 02/15/19 09:45 AB (Rec: 02/15/19 13:20 AB [id number]) Medical Review Prior Functional Status Medical History Reviewed Yes Communication able to make needs known Mobility and Gait pt stated that he is independent with all mobilities and ambulation without AD; stated that he uses 2 hiking poles for long distance walking Social History Household Members none Living Arrangements House Number of Floors (Floors) Two Floors Number of Stairs To Enter/Railing? stated that he lives in a house but stays on the 2nd level of the house and has friends on first level of the house (renting); has 1 flight of steps to enter with L rail ascending has 1 flight of steps with bilateral rails to get to 2nd level Home Environment High Toilet,Tub/Shower Home Equipment Shower Seat with Backrest,Hand Held Shower,Grab Bars Near Toilet M2 PT-IP Current Condition Start: 02/15/19 13:00 Freq: NEEDED Status: Active Protocol: Document 02/15/19 09:45 AB (Rec: 02/15/19 13:20 AB [id number]) Physical Therapy Current Condition Current Condition Evaluation Date 02/15/19 Treatment Diagnosis sepsis; generalized weakness Onset Date 02/12/19 Precautions Other Precautions falls; BP contact precautions M3 PT-IP Subjective Start: 02/15/19 13:00 Freq: NEEDED Status: Active Protocol: Document 02/15/19 09:45 AB (Rec: 02/15/19 13:20 AB [id number]) Subjective Physical Therapy Visit Type Type Initial Evaluation Visit Start Time 09:45 Visit Stop Time 10:10 Total Visit Minutes 25 Number of SEMICONDUCTOR WAFERS ETCHER STRIPPER Visits 0 Physical Therapy Visit Comments Patient Comments pt agreeable to do PT M4 PT-IP Mobility and Gait Start: 02/15/19 13:00 Freq: NEEDED Status: Active Protocol: Document 02/15/19 09:45 AB (Rec: 02/15/19 13:20 AB [id number]) PT-Bed Mobility Assessment Supine to Sit Supine to Sit Standby Assistance PT-Transfer Assessment Sit to and From Stand Sit to and from Stand Contact Guard Assistance,1 Person Assistance Equipment Transfer Assistive Device None,Gait Belt Orthotic/Prosthetic Devices or Brace: No Transfers Transfer Destination Chair Transfer Technique ambulated without AD Transfer Ability Level of Assist Minimal Assistance,1 Person Assistance,Use of Upper Extremities Comments Mobility Comments pt completed supine to sit SBA . able to sit on EOB SBA. completed sit to stand CGA. c /o dizziness. instructed to sit back down. BP: 131/81. pt completed sit to stand again CGA and ambulated towards the chair ~ 12 ft min A and cues. pt presents with unsteady gait. stated that it is because of his dizziness. BP checked sitting on chair after transfe: 129/69. pt ambulated again in room and agreed to sit up on chair after. call light and table placed within reach. Gait Assessment Gait Gait Assistance Required: Contact Guard Assist,Minimum Assistance,1 Person Assist Distance (Feet) 20 Able to Maintain Weight Bearing Status Yes During Gait Assistive Devices Assistive Device None,Gait Belt,Front Wheeled Walker Orthotic/Prosthetic Devices or Brace: No Gait Deviations General Gait Pattern Decreased Stride Length, Decreased Feet Clearance Factors Limiting Gait Function Factors Limiting Gait Function Decreased Activity Tolerance, Decreased Strength,Poor Balance Comments Gait Comments pt ambulated without AD to the chair min A ~ 12 ft. assessed ambulation using FWW and completed ~ 20 ft. c/o nausea/dizziness. ambulation is steadier with a FWW but has decrease activity tolerance. BP checked after ambulation: 129/69. positioned pt in the chair. call light and table placed within reach. PT-Balance Assessment Sitting Balance and Reactions Static Sitting Balance Ability Good Dynamic Sitting Balance Ability Good Standing Balance and Reactions Static Standing Balance Ability Fair Dynamic Standing Balance Ability Poor Device Used without AD M5 PT-IP Objective Assessments Start: 02/15/19 13:00 Freq: NEEDED Status: Active Protocol: Document 02/15/19 09:45 AB (Rec: 02/15/19 13:20 AB [id number]) Orientation Orientation/Cognition Level of Alertness Alert Orientation Name,Age,Birthday,Month,Date, Year,Day of Week,Place, Situation Safety Awareness Decreased Safety Awareness Memory Description No Deficits Noted Gross Range of Motion Lower Extremity ROM Assessment Within Functional Limits Strength Lower Extremity Strength Assessment Within Functional Limits Coordination Assessment Gross Coordination Gross Coordination WNL Muscle Tone Muscle Tone WNL Yes M6 PT-IP Treatment Start: 02/15/19 13:00 Freq: NEEDED Status: Active Protocol: Document 02/15/19 09:45 AB (Rec: 02/15/19 13:20 AB [id number]) Physical Therapy Treatment Education Education Provided Safety M7 PT-IP Assessment and Plan Start: 02/15/19 13:00 Freq: NEEDED Status: Active Protocol: Document 02/15/19 09:45 AB (Rec: 02/15/19 13:20 AB [id number]) PT Summary Assessment and Plan Potential Rehabilitation Potential Good Status of Condition at Evaluation Evolving Summary Impairments Pain,ROM,Strength,Balance,Bed Mobility,Transfers,Gait, Activity Tolerance Assessment Summary pt requires CGA with ambulation using FWW but unable to ambulate much today with c/o nausea and dizziness. pt is unsteady with ambulation without AD and use of FWW is recommended at this time. will continue to assess progress. pt plans to go home but will not have a consistent assistance at home and just has friends/neighbors who may assist if needed. Goals Bed Mobility Goal Independent Transfer Goal Independent,Crutches Gait Goal Standby Assistance,Front Wheel Walker Gait Distance 200 Other Goals ambulation without AD ~ 200 ft SBA up/down 12 steps L rail ascending SBA Days to Meet Goals 10 Frequency of Treatment Frequency Of Treatment Once a Day Treatment Plan Physical Therapy Treatment Plan Bed Mobility Training,Transfer Training,Gait Training, Therapeutic Exercise,Balance Retraining,Discharge Planning, Neuromuscular Re-ed, Coordination Retraining,Manual Therapy Recommendations To Nursing Amount of Assist Needed 1 Person Assist Discharge Recommendations PT Discharge Recommendations Home with Assistance,Home Health Equipment Needed for Home Before FWW if not safe without AD Discharge
[2019-02-15] MEDS: DABIGATRAN 75 MG CAPSULE 150 MG PO (11:50)
[2019-02-15] MEDS: CLOPIDOGREL 75 MG TABLET PO (11:50)
--- NOTE | 2019-02-15 14:54 | PC.NURSE ---
Shift summary: Alert and oriented X3. Has had intermittent nausea, no emesis. Treated with PRN Zofran X2. Tolerating clear liquids. Has orders to advance to a [id number] diet, but states I'm not quite ready for that yet. His should be bringing his other bottle of Creon (enzyme replacement) from home, which he needs to take if he's going to eat. Reported 1 small watery stool this morning. BT+, hypoactive. Flatus+. Abdomen soft. C/O L sided abd pain that radiates into his back, and has been medicated with PRN Oxycodone 5 mg for the same. IVF per orders, site in L FA/elbow WNL. Showered this morning per his request (the hot water helps his back pain). Gets himself to edge of bed to use urinal. Has called appropriately for SBA OOB, so bed alarm left off to allow independent urinal use. Able to make needs known and calls appropriately. Call light and belongings within reach.
--- NOTE | 2019-02-15 15:07 | CM.DPC ---
DCP Cont: Met briefly with patient. Friend, Stephanie, was at bedside. Introduced self and role. Confirmed that primary [facility] is through [facility]. Discussed any needs at discharge, and patient stated, he did not think he would need anything, and no home health would be needed. Patient is pleasant, alert and oriented. He hopes to go home in the next day or two. P: DCP to continue to be available for any resources needed. He should be able to go home when he is medically stable. Catalina Pollack RN/Salt Washer
[2019-02-15] MEDS: LIPASE/PROTEASE/AMYLASE 5/17/24 CAP PO (17:03)
--- NOTE | 2019-02-15 17:53 | PC.NURSE ---
Addendum entered by Brandy Renner R.N. 02/15/19 23:32: D5NS @ 100 cc's/hr infusing as ordered. Pt resting quietly in bed without signs of distress or discomfort. Addendum entered by Brandy Renner R.N. 02/15/19 21:45: Dr. Hammond was notified by telephone of pt's blood sugar of 78 and 65 this evening shift. Pt is asymptomatic. Orders received to change iv fluids to add dextrose. Pt's po intake has been broth and tea this evening. Dr. Hammond was informed. Addendum entered by Brandy Renner R.N. 02/15/19 20:24: Pt reports no relief from nausea from zofran. States exacerbated by walking to window and back to bed and consuming sips of bone broth. Administered ativan. Pt refuses [place] med to treat nausea. Original Note: Pt has had several visitors this evening shift. Pt's own Creon brought in from home by S.O. and this was sent to pharmacy for identification and dispensing. Pt has clear liquids (broth) @ bedside brought in by family. Requests zofran prior to consuming as well as 5000 units Creon which was given. Oxycodone to manage LUQ abdominal pain radiating to left posterior flank as per pt request. BL calf scd's in place. Pt reports no concerns or complaints with infusing iv/site.
[2019-02-15] MEDS: LORazepam 2 MG/ML INJ 0.5 MG IV (20:02)
[2019-02-15] MEDS: diphenhydrAMINE 25 MG TABLET 50 MG PO (22:22)
[2019-02-16] VITALS (11 sets, daily range): BP systolic 98–116; BP diastolic 56–72; PULSE 58–66; RESP 16–18; TEMP 36.2–37.1; O2SAT 95–100
[2019-02-16] MEDS: DEXTROSE 5%-0.9% NS 1,000 ML 100 ML IV ×3 (01:12→17:17)
[2019-02-16 05:22] LABS: Add Manual Diff / Slide Review NO; Basophils Absolute Auto 0 /uL (0-100); Basophils Percent Auto 0.5 % (0-2); Eosinophils Absolute Auto 200 /uL (0-450); Eosinophils Percent Auto 3.4 % (2-4); Hemoglobin 13.9 g/dL (13.5-17.5); Lymphocytes Absolute Auto 1200 /uL (1100-4500); Lymphocytes Percent Auto 25.5 % (25-40); Mean Corpuscular HGB Conc 33.8 % (30-36); Mean Corpuscular Volume 91.6 fL (80-100); Monocytes Absolute Auto 400 /uL (0-900); Monocytes Percent Auto 8.8 % (3-14); Neutrophils Absolute Auto 2800 /uL (1500-7000); Neutrophils Percent Auto 61.8 % (50-75); Platelet Count 181 X10^3/uL (150-400); Red Blood Cell Count 4.47 X10^6/uL (4.5-5.9); White Blood Cell Count 4.6 X10^3/uL (4.5-11.0)
[2019-02-16 05:26] LABS: Blood Urea Nitrogen 7 mg/dL (9-20); Calcium 8.5 mg/dL (8.4-10.2); Carbon Dioxide 27 mmol/L (22-32); Chloride 108 mmol/L (98-107); Estimated Glomerular Filt Rate > 60.0 mL/min (>60); Glucose 109 mg/dL (80-110); HEMOLYSIS < 15 (0-50); Potassium 3.4 mmol/L (3.4-5.1); Sodium 140 mmol/L (137-145)
[2019-02-16] MEDS: OXYCODONE IR 5 MG TABLET PO ×3 (05:31→20:38)
[2019-02-16] MEDS: CREON 36000 UNIT 36000 EACH PO ×2 (08:04→17:17)
[2019-02-16] MEDS: PANTOPRAZOLE 40 MG VIAL IV (08:04)
[2019-02-16] MEDS: DABIGATRAN 75 MG CAPSULE 150 MG PO ×2 (08:04→20:37)
[2019-02-16] MEDS: CLOPIDOGREL 75 MG TABLET PO (08:05)
[2019-02-16] MEDS: FLUTICASONE 120 SPRAY/16 GM SPRAY.SUSP NASAL (08:10)
[2019-02-16] MEDS: METOPROLOL IR 25 MG TABLET 12.5 MG PO ×2 (08:12→20:30)
[2019-02-16] MEDS: ONDANSETRON 4 MG/2 ML INJ IV ×2 (08:31→15:50)
[2019-02-16] MEDS: LIPASE/PROTEASE/AMYLASE 5/17/24 CAP PO ×2 (08:33→16:03)
--- NOTE | 2019-02-16 10:17 | PM.PN.1 ---
Subjective Subjective Date Patient Seen: 02/16/19 Time Patient Seen: 10:18 Interval history: Diarrhea. Patient has not had a stool since last night. Still very hesitant to the advanced diet to solids. Using his normal chicken broth and bone broth. Abdominal discomfort has improved somewhat. Nausea has improved somewhat. No new symptoms. Patient feels that this residual symptom is from his pancreatitis is very familiar to what he has had in the past. His very careful in monitoring his caloric intake referable to his activity. His along diarrhea same. At any rate he is hungry but he is anxious about adding salt to his diet for concerned about increasing severe abdominal pain which is been experience in the past. . Exam Vital Signs (past 8 hours): - 02/16/19 04:45 02/16/19 05:45 02/16/19 08:00 Temperature 97.2 F L 98.3 F Pulse Rate 58 L 66 Respiratory Rate 16 16 Blood Pressure 99/58 L 104/70 Pulse Oximetry 96 95 100 Oxygen Delivery Method Room Air Oxygen Flow Rate 0 Narrative Exam Narrative: Patient is sitting upright in his hospital bed he looks like he is feeling very good but he is conversant and oriented x3. Lungs clear. Heart regular rhythm no murmur gallop. Abdominal exam minimal tenderness now compared to yesterday no masses Objective Labs Result Diagrams: 02/16/19 05:00 02/16/19 05:00 Labs: Laboratory Results - last 24 hr 02/16/19 02/16/19 05:00 05:00 WBC 4.6 RBC 4.47 L Hgb 13.9 Hct 41.0 MCV 91.6 MCH 31.0 MCHC 33.8 RDW 13.0 Plt Count 181 Neut % (Auto) 61.8 Lymph % (Auto) 25.5 [place] % (Auto) 8.8 Eos % (Auto) 3.4 Baso % (Auto) 0.5 Neut # (Auto) 2800 Lymph # (Auto) 1200 [place] # (Auto) 400 Eos # (Auto) 200 Baso # (Auto) 0 Sodium 140 Potassium 3.4 Chloride 108 H Carbon Dioxide 27 BUN 7 L Creatinine 0.70 Estimated GFR > 60.0 BUN/Creatinine Ratio 10.0 Glucose 109 Calcium 8.5 labs reviewed from this morning all of which is unremarkable Assessment & Plan Assessment & Plan narrative: 1. Acute enteritis apparently resolved will discontinue isolation. 2. Residual persistent nausea and abdominal pain presumably secondary to his chronic pancreatitis as per patient. Patient the was reasonably well hydrated but to caloric intake is been limited. Would like to see patients have solid foods before his discharge will attempt old male out today and advance if he is willing. Probably another 2 days here in the hospital
--- NOTE | 2019-02-16 11:48 | PT.IPTN ---
Current Diagnoses Enteropathogenic Escherichia coli infection (02/12/19) Physical Therapy Treatment Note M2 PT-IP Current Condition Start: 02/15/19 13:00 Freq: NEEDED Status: Active Protocol: Document 02/15/19 09:45 AB (Rec: 02/15/19 13:20 AB [id number]) Physical Therapy Current Condition Current Condition Evaluation Date 02/15/19 Treatment Diagnosis sepsis; generalized weakness Onset Date 02/12/19 Precautions Other Precautions falls; BP contact precautions M3 PT-IP Subjective Start: 02/15/19 13:00 Freq: NEEDED Status: Active Protocol: Document 02/16/19 11:37 CLB (Rec: 02/16/19 13:47 CLB [id number]) Subjective Physical Therapy Visit Type Type Treatment Note Visit Start Time 11:37 Visit Stop Time 11:48 Total Visit Minutes 11 Number of BUSINESS CONTINUITY MANAGER Visits 1 Physical Therapy Visit Comments Patient Comments pt agreeable to do PT Therapy Pain Assessment Pain When Pain Assessed During Mobility Pain Present Pain Present Pain Reported Location Abdomen Intensity 5 Scale Used Numeric (1 - 10) M4 PT-IP Mobility and Gait Start: 02/15/19 13:00 Freq: NEEDED Status: Active Protocol: Document 02/16/19 11:37 CLB (Rec: 02/16/19 13:47 CLB [id number]) PT-Transfer Assessment Sit to and From Stand Sit to and from Stand Contact Guard Assistance,1 Person Assistance Equipment Transfer Assistive Device None,Gait Belt Orthotic/Prosthetic Devices or Brace: No Transfers Transfer Destination Bed Transfer Technique ambulated without AD Transfer Ability Level of Assist Standby Assistance Comments Mobility Comments Pt transferred to toilet with IV Pole and was able to stand and use urinal. Pt stable in standing. Pt able to ambulate to sink and wash hands. Left pt sitting on EOB with alarm on, call light and table within reach. Gait Assessment Gait Gait Assistance Required: Standby Assistance,1 Person Assist Distance (Feet) 150 Able to Maintain Weight Bearing Status Yes During Gait Assistive Devices Assistive Device None,Gait Belt Gait Deviations General Gait Pattern Decreased Stride Length, Decreased Feet Clearance, Narrow Based Gait Factors Limiting Gait Function Factors Limiting Gait Function Decreased Activity Tolerance, Decreased Strength,Poor Balance Comments Gait Comments Pt increased ambulation ~150ft with use of IV pole and SBA. Pt required one standing rest break. Pt had no c/o dizziness with mobility today. M5 PT-IP Objective Assessments Start: 02/15/19 13:00 Freq: NEEDED Status: Active Protocol: Document 02/15/19 09:45 AB (Rec: 02/15/19 13:20 AB [id number]) Orientation Orientation/Cognition Level of Alertness Alert Orientation Name,Age,Birthday,Month,Date, Year,Day of Week,Place, Situation Safety Awareness Decreased Safety Awareness Memory Description No Deficits Noted Gross Range of Motion Lower Extremity ROM Assessment Within Functional Limits Strength Lower Extremity Strength Assessment Within Functional Limits Coordination Assessment Gross Coordination Gross Coordination WNL Muscle Tone Muscle Tone WNL Yes M6 PT-IP Treatment Start: 02/15/19 13:00 Freq: NEEDED Status: Active Protocol: Document 02/15/19 09:45 AB (Rec: 02/15/19 13:20 AB [id number]) Physical Therapy Treatment Education Education Provided Safety M7 PT-IP Assessment and Plan Start: 02/15/19 13:00 Freq: NEEDED Status: Active Protocol: Document 02/16/19 11:37 CLB (Rec: 02/16/19 13:47 CLB [id number]) PT Summary Assessment and Plan Potential Rehabilitation Potential Good Status of Condition at Evaluation Evolving Summary Impairments Pain,ROM,Strength,Balance,Bed Mobility,Transfers,Gait, Activity Tolerance Assessment Summary Pt required less assist today with transfers and gait. Pt increased gait distance but was fatigued after. Pt managed IV pole during ambulation unwilling to use FWW. Goals Bed Mobility Goal Independent Transfer Goal Independent,Crutches Gait Goal Standby Assistance,Front Wheel Walker Gait Distance 200 Other Goals ambulation without AD ~ 200 ft SBA up/down 12 steps L rail ascending SBA Days to Meet Goals 10 Frequency of Treatment Frequency Of Treatment Once a Day Treatment Plan Physical Therapy Treatment Plan Bed Mobility Training,Transfer Training,Gait Training, Therapeutic Exercise,Balance Retraining,Discharge Planning, Neuromuscular Re-ed, Coordination Retraining,Manual Therapy Recommendations To Nursing Amount of Assist Needed 1 Person Assist Discharge Recommendations PT Discharge Recommendations Home with Assistance,Home Health Equipment Needed for Home Before FWW if not safe without AD Discharge
--- NOTE | 2019-02-16 18:02 | PC.NURSE ---
Addendum entered by Brandy Renner R.N. 02/16/19 22:49: Pt requests additional pain meds to manage abdominal pain. Informed pt have given what has been ordered by provider. Provided pt with warm blanket for abdomen and for back. Pt does fall asleep. Resting quietly without signs of distress or discomfort. Bed alarm set and pt was instructed prior to sleep not to attempt out of bed independently. Addendum entered by Brandy Renner R.N. 02/16/19 21:04: Doppler obtained from ICU. Able to auscultate pedal pulses BL. BL calf scd's in place. Benadryl for sleep and oxycodone to manage abdominal pain related to digesting. Bed alarm set for pt safety. Addendum entered by Brandy Renner R.N. 02/16/19 18:53: Admits to feeling better overall. Moves independently in bed. Rates pain to abdomen 5/10. SCD's off at this time as pt reports hopes to be mobile in room/hallway this evening shift. Original Note: Pt ambulatory in hallway at beginning of shift. Does state is feeling well. Steady gait. Dinner tray arrives and pt reports will attempt to eat as per MD directive. Provided with oatmeal as per request. Requests additional zofran if going to eat as per home regimen. Informed pt had 4 mg iv prior to ambulation with pain meds. Pt reports takes up to 8 mg when eating. Pt requests this caption writer phone Dr. Hammond. This was done and order obtained. Creon given as per pt request with evening meal. Rates LUQ and left flank pain 5/10. Moves easily and is verbally engaged with female visitor in room.
[2019-02-16] MEDS: ONDANSETRON 4 MG ODT SL (18:32)
[2019-02-16] MEDS: diphenhydrAMINE 25 MG TABLET 50 MG PO (20:39)
[2019-02-17] VITALS (10 sets, daily range): BP systolic 96–115; BP diastolic 45–67; PULSE 55–64; RESP 16–18; TEMP 36.3–36.7; O2SAT 97–100
[2019-02-17] MEDS: OXYCODONE IR 5 MG TABLET PO ×2 (01:59→13:18)
[2019-02-17] MEDS: ONDANSETRON 4 MG ODT 8 MG PO ×3 (01:59→13:18)
[2019-02-17] MEDS: DEXTROSE 5%-0.9% NS 1,000 ML 100 ML IV (02:03)
[2019-02-17 05:21] LABS: Add Manual Diff / Slide Review NO; Basophils Absolute Auto 0 /uL (0-100); Basophils Percent Auto 1.1 % (0-2); Eosinophils Absolute Auto 100 /uL (0-450); Eosinophils Percent Auto 2.9 % (2-4); Hematocrit 39.1 % (41-53); Hemoglobin 13.2 g/dL (13.5-17.5); Lymphocytes Absolute Auto 1000 /uL (1100-4500); Mean Corpuscular HGB Conc 33.9 % (30-36); Mean Corpuscular Volume 91.5 fL (80-100); Monocytes Absolute Auto 400 /uL (0-900); Monocytes Percent Auto 9.7 % (3-14); Neutrophils Absolute Auto 2300 /uL (1500-7000); Neutrophils Percent Auto 60.3 % (50-75); Platelet Count 185 X10^3/uL (150-400); Red Blood Cell Count 4.27 X10^6/uL (4.5-5.9); Red Cell Distribution Width 13.2 % (11.6-14.8); White Blood Cell Count 3.9 X10^3/uL (4.5-11.0)
[2019-02-17 05:34] LABS: Alanine Aminotransferase 12 IU/L (<50); Albumin 3.3 g/dL (3.5-5.0); Albumin Globulin Ratio 1.5 (1.0-2.8); Alkaline Phosphatase 49 U/L (38-126); Aspartate Aminotransferase 16 IU/L (17-59); Bilirubin Total 0.6 mg/dL (0.2-1.3); Blood Urea Nitrogen 7 mg/dL (9-20); Calcium 8.4 mg/dL (8.4-10.2); Carbon Dioxide 25 mmol/L (22-32); Chloride 110 mmol/L (98-107); Estimated Glomerular Filt Rate > 60.0 mL/min (>60); Globulin 2.2 g/dL (1.7-4.1); Glucose 108 mg/dL (80-110); HEMOLYSIS < 15 (0-50); Potassium 3.4 mmol/L (3.4-5.1); Sodium 140 mmol/L (137-145); Total Protein 5.5 g/dL (6.3-8.2)
--- NOTE | 2019-02-17 06:08 | PC.NURSE ---
Pt doing well. Evening shift nurse reported pt was able to eat oatmeal for dinner. D5NS@100mL/hr running as ordered. Complained of 6/10 stomach pain relieved with Oxy 5mg; Zofran 8mg PO given for nausea.
--- NOTE | 2019-02-17 08:26 | PM.PN.1 ---
Subjective Subjective Date Patient Seen: 02/17/19 Time Patient Seen: 08:26 Interval history: Enteritis. Patient feeling better. Has decreased pain. Currently has no nausea. Attempted to eat some oatmeal yesterday. Was able to a tolerate a few bites but then became nauseated. Had increased abdominal pain. He has not had a bowel movement for 2 days. Overall he feels like he is improving. Wants to try some more old male. Also would having full liquid soup brought to him. Has ambulated in the hallways couple times. Exam Vital Signs (past 8 hours): - 02/17/19 01:00 02/17/19 05:00 02/17/19 05:54 Temperature 98.1 F Pulse Rate 55 L Respiratory Rate 16 Blood Pressure 96/60 Pulse Oximetry 98 99 99 Oxygen Delivery Method Room Air Oxygen Flow Rate 0 Narrative Exam Narrative: Patient is sitting upright in his hospital bed appearing no distress still looks pill. General exam unremarkable. Lungs are clear heart regular rhythm no murmur gallop. Abdominal exam no masses minimal tenderness periumbilically no rebound Objective Labs Result Diagrams: 02/17/19 04:50 02/17/19 04:50 Labs: Laboratory Results - last 24 hr 02/17/19 02/17/19 04:50 04:50 WBC 3.9 L RBC 4.27 L Hgb 13.2 L Hct 39.1 L MCV 91.5 MCH 31.0 MCHC 33.9 RDW 13.2 Plt Count 185 Neut % (Auto) 60.3 Lymph % (Auto) 26.0 [place] % (Auto) 9.7 Eos % (Auto) 2.9 Baso % (Auto) 1.1 Neut # (Auto) 2300 Lymph # (Auto) 1000 L [place] # (Auto) 400 Eos # (Auto) 100 Baso # (Auto) 0 Sodium 140 Potassium 3.4 Chloride 110 H Carbon Dioxide 25 BUN 7 L Creatinine 0.70 Estimated GFR > 60.0 BUN/Creatinine Ratio 10.0 Glucose 108 Calcium 8.4 Total Bilirubin 0.6 AST 16 L ALT 12 Alkaline Phosphatase 49 Total Protein 5.5 L Albumin 3.3 L Globulin 2.2 Albumin/Globulin Ratio 1.5 Labs reviewed as above Assessment & Plan Assessment & Plan narrative: 1. Acute enteritis resolved patient longer having diarrhea. 2. Chronic pancreatitis symptomatology seems to be primary here. Patient tolerating brief eating poorly. Will again continue to add solids old male full liquids. 3. Will ambulate patient today DC IV says his BUN is markedly low. Hopefully discharge him tomorrow yet to be determined
[2019-02-17] MEDS: CREON 36000 UNIT 36000 EACH PO ×3 (08:31→17:11)
[2019-02-17] MEDS: PANTOPRAZOLE 40 MG VIAL IV (08:36)
--- NOTE | 2019-02-17 08:43 | PC.NURSE ---
Addendum entered by Arleen Torres R.N. 02/17/19 15:02: Late entry (1445)- Received Oxycodone and Zofran around lunchtime and states he's doing alright (r/t pain/nausea) at the moment. He's waiting on his girlfriend to bring a couple different soup choices from home so he can try to eat something he thinks might agree with his stomach. Able to make needs known and calls appropriately. Up in chair visiting with friend, call light within reach. Addendum entered by Arleen Torres R.N. 02/17/19 11:24: Sitting up in chair visiting with friend. States actually, I'm doing pretty good right now. Given for more hot water for tea, and has been tolerating PO fluids without issue (approx 1000 ml PO's so far this morning). Denied need for pain meds or anti-emetic at this time. Agrees to call for SBA to BR or back to bed, and has been calling appropriately. Light and belongings within reach. Friend in visiting. Addendum entered by Arleen Torres R.N. 02/17/19 09:19: Was able to eat a few bites of oatmeal, not much more than that. Given fresh ice water, hot water for tea and heated up a bowl of his bone broth stored in the kitchen. He said his will be bringing some cream soups from home which he's hoping to be able to eat later today. PO meds held for now, patient will request when he's ready for them. BT+, hypoactive. Flatus+. Abd soft. Lungs CTA. HRR. IV saline locked per order, encouraged ongoing intake of PO fluids. Indep in bed/SBA OOB. Able to make needs known and calls appropriately. Light within reach, bed alarm on. Original Note: Shift summary: Awake and alert, oriented X3. Reports mild abd discomfort (3/10), denied need for pain meds at this time. Medicated with ODT Zofran and Creon prior to starting to eat his breakfast. CBG AC 94. IVF per orders, site in L FA WNL. Will complete full assessment when he's done eating. Call light and belongings within reach, bed alarm on.
[2019-02-17] MEDS: FLUTICASONE 120 SPRAY/16 GM SPRAY.SUSP NASAL (09:43)
--- NOTE | 2019-02-17 11:50 | PT.IPTN ---
Current Diagnoses Enteropathogenic Escherichia coli infection (02/12/19) Physical Therapy Treatment Note M2 PT-IP Current Condition Start: 02/15/19 13:00 Freq: NEEDED Status: Active Protocol: Document 02/15/19 09:45 AB (Rec: 02/15/19 13:20 AB [id number]) Physical Therapy Current Condition Current Condition Evaluation Date 02/15/19 Treatment Diagnosis sepsis; generalized weakness Onset Date 02/12/19 Precautions Other Precautions falls; BP contact precautions M3 PT-IP Subjective Start: 02/15/19 13:00 Freq: NEEDED Status: Active Protocol: Document 02/17/19 11:50 SOLANGE (Rec: 02/17/19 12:27 SOLANGE [id number]) Subjective Physical Therapy Visit Type Type Treatment Note Visit Start Time 11:50 Visit Stop Time 12:13 Total Visit Minutes 23 Notes Treatment supervised by MARIANO Puri. Number of STREET AND BUILDING DECORATOR Visits 2 Physical Therapy Visit Comments Patient Comments Pt agreeable to work with therapy. Therapy Pain Assessment Pain When Pain Assessed After Treatment Pain Present Pain Present Pain Reported Location Abdomen Intensity 5 Scale Used Numeric (1 - 10) M4 PT-IP Mobility and Gait Start: 02/15/19 13:00 Freq: NEEDED Status: Active Protocol: Document 02/17/19 11:50 SOLANGE (Rec: 02/17/19 12:27 SOLANGE [email or web address]) PT-Transfer Assessment Sit to and From Stand Sit to and from Stand Standby Assistance,1 Person Assistance Equipment Transfer Assistive Device None,Gait Belt Orthotic/Prosthetic Devices or Brace: No Transfers Transfer Destination Chair Transfer Technique ambulated without AD Transfer Ability Level of Assist Standby Assistance Comments Mobility Comments Pt is able to stand from chair with SBA w/o use of AD. Reports that he already went for a walk this morning and is feeling good. Pt left in chair with all needs in reach. Gait Assessment Gait Gait Assistance Required: Standby Assistance,1 Person Assist Distance (Feet) 800 Able to Maintain Weight Bearing Status Yes During Gait Assistive Devices Assistive Device None,Gait Belt Gait Deviations General Gait Pattern Decreased Stride Length, Decreased Feet Clearance, Narrow Based Gait Factors Limiting Gait Function Factors Limiting Gait Function Decreased Activity Tolerance, Decreased Strength,Poor Balance Comments Gait Comments Pt reported mild dizziness when standing, but stated it was due to nausea. Pt was able to ambulate approximately ~ 800 ft w/ CGA and no AD. Ambulated to staircase w/ using hand rail when available . Pt required min cues to avoid listing to L side when ambulating. Required 2 standing rest breaks. Pt has decreased stride length and foot clearance due to decreased strength at this time. Stair Climbing Assessment Evaluation Level of Assist On Stairs Contact Guard Assistance,1 Person Assistance Devices Stair Climbing Assistive Devices Left Railing,Right Railing Technique/Endurance Stair Climbing Direction Ascend and Descend Stair Climbing Technique Step Over Step Number of Steps Climbed 3 Stair Climbing Set # Repetitions (reps) 4 Comments Stair Climbing Comments Pt was able to ascend/descend 12 steps total w/ CGA and no cues for sequencing. Reported mild fatigue after completing stairs but no c/o of dizziness . Pt used bilat handrails and stated that he has bilat handrails at home. PT-Balance Assessment Sitting Balance and Reactions Static Sitting Balance Ability Good Dynamic Sitting Balance Ability Good Standing Balance and Reactions Static Standing Balance Ability Good Dynamic Standing Balance Ability Fair Device Used without AD M5 PT-IP Objective Assessments Start: 02/15/19 13:00 Freq: NEEDED Status: Active Protocol: Document 02/15/19 09:45 AB (Rec: 02/15/19 13:20 AB [id number]) Orientation Orientation/Cognition Level of Alertness Alert Orientation Name,Age,Birthday,Month,Date, Year,Day of Week,Place, Situation Safety Awareness Decreased Safety Awareness Memory Description No Deficits Noted Gross Range of Motion Lower Extremity ROM Assessment Within Functional Limits Strength Lower Extremity Strength Assessment Within Functional Limits Coordination Assessment Gross Coordination Gross Coordination WNL Muscle Tone Muscle Tone WNL Yes M6 PT-IP Treatment Start: 02/15/19 13:00 Freq: NEEDED Status: Active Protocol: Document 02/17/19 11:50 SOLANGE (Rec: 02/17/19 12:27 SOLANGE [id number]) Physical Therapy Treatment Education Education Provided Safety M7 PT-IP Assessment and Plan Start: 02/15/19 13:00 Freq: NEEDED Status: Active Protocol: Document 02/17/19 11:50 SOLANGE (Rec: 02/17/19 12:27 SOLANGE [email or web address]) PT Summary Assessment and Plan Potential Rehabilitation Potential Good Status of Condition at Evaluation Evolving Summary Impairments Pain,ROM,Strength,Balance,Bed Mobility,Transfers,Gait, Activity Tolerance Assessment Summary Pt is SBA for transfers and CGA for gait and stairs w/ no AD. Pt is showing improvements w/ tolerance for ambulation and walked ~800 ft today. Utilized handrail when available while ambulating, but able to remain balanced w/ o use of handrail. Slight listing to L side, able to fix w/ min cues. Ascend/descend 12 steps w/ use of bilat hand rails but no AD. Took 2 brief resting standing breaks on his way back to his room. Goals Bed Mobility Goal Independent Transfer Goal Independent,Crutches Gait Goal Standby Assistance,Front Wheel Walker Gait Distance 200 Other Goals ambulation without AD ~ 200 ft SBA up/down 12 steps L rail ascending SBA Days to Meet Goals 10 Frequency of Treatment Frequency Of Treatment Once a Day Treatment Plan Physical Therapy Treatment Plan Bed Mobility Training,Transfer Training,Gait Training, Therapeutic Exercise,Balance Retraining,Discharge Planning, Neuromuscular Re-ed, Coordination Retraining,Manual Therapy Recommendations To Nursing Amount of Assist Needed 1 Person Assist Discharge Recommendations PT Discharge Recommendations Home with Assistance,Home Health Equipment Needed for Home Before FWW if not safe without AD Discharge
[2019-02-17] MEDS: ONDANSETRON 4 MG ODT SL ×3 (12:22→23:00)
--- NOTE | 2019-02-17 14:54 | CM.DPC ---
DCP Cont: Per MD, pt making slow progress but improving and possible d/c home tomorrow if pt remains stable and can continue to advance his diet. Per RN, pt did not need pain medication this morning and received just one dose of pain meds today. Per PT, pt ambulated far today with brief rest due to decreased stamina and recommending safe d/c home with friend assist and possible HH. 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 Pt has a long hx of bowel issues and multiple ED and admissions to the hospital for bowel rest. Pt confirms that he is feeling a lot better today with his baseline nausea but no dizziness and very low pain and he is hopeful to d/c home with many friend support tomorrow. Pt confirms that he still does not feel HH is needed and he has multiple friends, including his coworker and good friend Stephanie who is now bedside, who will assist at d/c. Stephanie brought pureed soups for pt to try this afternoon towards hopeful confirmation that pt is able to tolerate advanced diet. Plan: SW to follow closely in the morning that pt has tolerated advancing diet and able to safely d/c home with multiple friend support. RIMA Ramos
[2019-02-17] MEDS: LIPASE/PROTEASE/AMYLASE 5/17/24 CAP PO (15:40)
[2019-02-17] MEDS: DABIGATRAN 75 MG CAPSULE 150 MG PO (20:30)
[2019-02-17] MEDS: diphenhydrAMINE 25 MG TABLET 50 MG PO (20:35)
[2019-02-17] MEDS: SODIUM CHLORIDE 0.9% FLUSH 10 ML IV (20:38)
--- NOTE | 2019-02-17 21:38 | PC.NURSE ---
Pt able to eat full liquid diet and soups brought from home with the aid of prescription enzymes and 4 mg Zofran. He had 4 loose stools on day shift. He states he has moderate epigastric pain. VSS.
[2019-02-18] VITALS: O2SAT 99
[2019-02-18 00:15] VITALS: BP 104/64; PULSE 62; RESP 16; TEMP 36.6; O2SAT 98
[2019-02-18] MEDS: ONDANSETRON 4 MG ODT SL ×2 (02:25→06:19)
[2019-02-18 04:00] VITALS: O2SAT 98
[2019-02-18 05:10] VITALS: BP 107/68; PULSE 60; RESP 16; TEMP 36.4; O2SAT 100
[2019-02-18 05:29] LABS: Add Manual Diff / Slide Review NO; Basophils Absolute Auto 0 /uL (0-100); Basophils Percent Auto 0.3 % (0-2); Eosinophils Absolute Auto 200 /uL (0-450); Eosinophils Percent Auto 3.2 % (2-4); Hematocrit 41.7 % (41-53); Lymphocytes Absolute Auto 1000 /uL (1100-4500); Lymphocytes Percent Auto 22.3 % (25-40); Mean Corpuscular HGB Conc 33.5 % (30-36); Mean Corpuscular Hemoglobin 30.7 PG (26-34); Mean Corpuscular Volume 91.5 fL (80-100); Monocytes Absolute Auto 300 /uL (0-900); Monocytes Percent Auto 7.3 % (3-14); Neutrophils Absolute Auto 3100 /uL (1500-7000); Neutrophils Percent Auto 66.9 % (50-75); Platelet Count 178 X10^3/uL (150-400); Red Blood Cell Count 4.55 X10^6/uL (4.5-5.9); White Blood Cell Count 4.7 X10^3/uL (4.5-11.0)
[2019-02-18 05:32] LABS: BUN Creatinine Ratio 11.4 (6-22); Blood Urea Nitrogen 8 mg/dL (9-20); Calcium 8.9 mg/dL (8.4-10.2); Carbon Dioxide 26 mmol/L (22-32); Chloride 111 mmol/L (98-107); Estimated Glomerular Filt Rate > 60.0 mL/min (>60); Glucose 76 mg/dL (80-110); HEMOLYSIS < 15 (0-50); Potassium 3.4 mmol/L (3.4-5.1); Sodium 142 mmol/L (137-145)
--- NOTE | 2019-02-18 06:06 | PC.NURSE ---
69.5 is correct weight the bed was not aeroed i had him get out of bed zeroed it asked if he knew weight he said last sunday was 155 pounds which is 70.45 KG he is now 69.5 kg this is a correct fresh bed zero weight
--- NOTE | 2019-02-18 06:47 | PC.NURSE ---
Pt states feeling better. Reports pain as tolerable at 4 out of 10 but not wanting any pain medications. Has still been nauseous but no emesis. Zofran given a few times.
--- NOTE | 2019-02-18 07:50 | PT.IPTN ---
Current Diagnoses Enteropathogenic Escherichia coli infection (02/12/19) Physical Therapy Treatment Note M2 PT-IP Current Condition Start: 02/15/19 13:00 Freq: NEEDED Status: Active Protocol: Document 02/15/19 09:45 AB (Rec: 02/15/19 13:20 AB [id number]) Physical Therapy Current Condition Current Condition Evaluation Date 02/15/19 Treatment Diagnosis sepsis; generalized weakness Onset Date 02/12/19 Precautions Other Precautions falls; BP contact precautions M3 PT-IP Subjective Start: 02/15/19 13:00 Freq: NEEDED Status: Active Protocol: Document 02/18/19 07:30 SP (Rec: 02/18/19 08:26 SP [id number]) Subjective Physical Therapy Visit Type Type Treatment Note Visit Start Time 07:30 Visit Stop Time 07:50 Total Visit Minutes 20 Number of MATHEMATICAL ENGINEER Visits 3 Physical Therapy Visit Comments Patient Comments Pt agreeable to PT this morning. Therapy Pain Assessment Pain When Pain Assessed At Rest Pain Present Pain Present Pain Reported Location Abdomen Intensity 3 Scale Used Numeric (1 - 10) M4 PT-IP Mobility and Gait Start: 02/15/19 13:00 Freq: NEEDED Status: Active Protocol: Document 02/18/19 07:30 SP (Rec: 02/18/19 08:26 SP [id number]) PT-Bed Mobility Assessment Rolling Type of Rolling Roll to Left Level of Assist Independent Supine to Sit Supine to Sit Independent Sit to Supine Sit to Supine Independent Scooting Scooting to Edge of Bed Independent Scooting Up and Down in Bed Independent PT-Transfer Assessment Sit to and From Stand Sit to and from Stand Standby Assistance,1 Person Assistance Equipment Transfer Assistive Device None,Gait Belt Orthotic/Prosthetic Devices or Brace: No Transfers Transfer Destination Bed Transfer Technique ambulated w/o AD Transfer Ability Level of Assist Standby Assistance Comments Mobility Comments Pt is able to stand from EOB with SBA w/ use of AD. Pt stated is feeling good eager to go home today. Pt wanting to do some walking and trial stairs again. Gait Assessment Gait Gait Assistance Required: Standby Assistance,1 Person Assist Distance (Feet) 800 Able to Maintain Weight Bearing Status Yes During Gait Assistive Devices Assistive Device Gait Belt,Front Wheeled Walker Gait Deviations General Gait Pattern Decreased Stride Length, Decreased Feet Clearance, Narrow Based Gait Factors Limiting Gait Function Factors Limiting Gait Function Decreased Activity Tolerance, Decreased Strength,Poor Balance Comments Gait Comments Pt reported mild dizziness when standing but mainly due to nausea. Pt was able to ambulate approx 800 ft using FWW secondary to just waking up and endurance conservation. Cued patient for increased stride and foot clearance secondary to toe catching floor x3 with self recovery using FWW for support during distance and upright posture with improvements noted. Pt took 1 rest break during each distance to/from stairs. Stair Climbing Assessment Evaluation Level of Assist On Stairs Standby Assistance,1 Person Assistance Devices Stair Climbing Assistive Devices None,Left Railing,Right Railing Technique/Endurance Stair Climbing Direction Ascend and Descend Stair Climbing Technique Step Over Step Number of Steps Climbed 3 Stair Climbing Set # Repetitions (reps) 4 Comments Stair Climbing Comments Pt was able to complete ascend /descend 12 steps total w/ SBA step over step, no cues for sequencing needed but suggested slower pacing for safety foot management and good demonstration. Pt was able to complete ascend/ descend first set steps B HR and 3 sets step with no HR, no LOB but trunk leans with self recovery to assimulate outside environment at home discussed. Pt reported fatigued end of tx. PT-Balance Assessment Sitting Balance and Reactions Static Sitting Balance Ability Good Dynamic Sitting Balance Ability Good Standing Balance and Reactions Static Standing Balance Ability Good Dynamic Standing Balance Ability Fair Device Used without AD M5 PT-IP Objective Assessments Start: 02/15/19 13:00 Freq: NEEDED Status: Active Protocol: Document 02/15/19 09:45 AB (Rec: 02/15/19 13:20 AB [id number]) Orientation Orientation/Cognition Level of Alertness Alert Orientation Name,Age,Birthday,Month,Date, Year,Day of Week,Place, Situation Safety Awareness Decreased Safety Awareness Memory Description No Deficits Noted Gross Range of Motion Lower Extremity ROM Assessment Within Functional Limits Strength Lower Extremity Strength Assessment Within Functional Limits Coordination Assessment Gross Coordination Gross Coordination WNL Muscle Tone Muscle Tone WNL Yes M6 PT-IP Treatment Start: 02/15/19 13:00 Freq: NEEDED Status: Active Protocol: Document 02/18/19 07:30 SP (Rec: 02/18/19 08:26 SP [id number]) Physical Therapy Treatment Exercises Exercises Ankle Pumps,Heel Slides,Seated Knee Flexion/Extension Education Education Provided Safety Other Treatments Other Treatment Performed Additional exercises performed : sit to stands, bridging, hip add with folded pillow between knees to assist strength. M7 PT-IP Assessment and Plan Start: 02/15/19 13:00 Freq: NEEDED Status: Active Protocol: Document 02/18/19 07:30 SP (Rec: 02/18/19 08:26 SP [id number]) PT Summary Assessment and Plan Potential Rehabilitation Potential Good Status of Condition at Evaluation Evolving Summary Impairments Pain,ROM,Strength,Balance,Bed Mobility,Transfers,Gait, Activity Tolerance Assessment Summary Pt is SBA for transfers and ambulation and SBA for stairs w/ no AD and FWW if fatigued. Pt is showing improvements w/ tolerance for ambulation and walked ~800 ft today. PT utillzed FWW while ambulating this morning, noted decreased foot clearance/foot catching the floor during gait, self corrections cuing for upright posture improved gait. Ascend/ descend 12 steps w/ use of bilat and no hand rails. Took 1 brief resting standing breaks on to/from his room. Pt was laying in bed with all needs within reach end of tx. Goals Bed Mobility Goal Independent Transfer Goal Independent,Crutches Gait Goal Standby Assistance,Front Wheel Walker Gait Distance 200 Other Goals ambulation without AD ~ 200 ft SBA up/down 12 steps L rail ascending SBA Days to Meet Goals 10 Frequency of Treatment Frequency Of Treatment Once a Day Treatment Plan Physical Therapy Treatment Plan Bed Mobility Training,Transfer Training,Gait Training, Therapeutic Exercise,Balance Retraining,Discharge Planning, Neuromuscular Re-ed, Coordination Retraining,Manual Therapy Other Recommendations and Next Treatment ambulation using SPC Focus Recommendations To Nursing Amount of Assist Needed 1 Person Assist Discharge Recommendations PT Discharge Recommendations Home with Assistance,Home Health Other Discharge Recommendations Pt complete safety in gait and stair management with PT and good recall of HEP. Recommend outpatient services when patient medically safe for discharge. Communicated with nursing response to tx today. Equipment Needed for Home Before FWW if not safe without AD Discharge
[2019-02-18 08:00] VITALS: BP 106/58; PULSE 64; RESP 16; O2SAT 100
[2019-02-18] MEDS: DABIGATRAN 75 MG CAPSULE 150 MG PO (08:41)
[2019-02-18] MEDS: CREON 36000 UNIT 36000 EACH PO (08:42)
[2019-02-18] MEDS: FLUTICASONE 120 SPRAY/16 GM SPRAY.SUSP NASAL (08:42)
[2019-02-18] MEDS: CLOPIDOGREL 75 MG TABLET PO (08:42)
[2019-02-18] MEDS: ONDANSETRON 4 MG ODT 8 MG PO (08:43)
[2019-02-18] MEDS: METOPROLOL IR 25 MG TABLET 12.5 MG PO (08:46)
--- NOTE | 2019-02-18 08:50 | P.DS_ITS ---
History of Present Illness History of Present Illness Chief complaint: states needs fluids Discharge Providers Provider Date of admission: 02/12/19 23:48 Discharge Date: 02/18/19 Primary care physician: Indra Hammond MD Consults: 02/13/19 08:43 Consult to Dietitian, Adult Routine Comment: Reason For Exam: chronic pancreatitis and diabetes 02/15/19 09:05 Consult to Physical Therapy Evaluate & Treat Comment: Out of bed Physician Instructions: Evaluate and Treat Discharge provider: Indra Hammond MD Summary Hospital Course Discharge Diagnosis: 1. E coli enteritis. 2. Chronic pancreatitis. 3. Chronic nausea. 4. Chronic back pain. 5. Insulin-dependent diabetes 6. Narcolepsy stable. 7. History of atrial fibrillations stable. 8. History of hypertension stable. Hospital Course: The patient was admitted with persistent nausea and vomiting. This is more significant than his usual nausea and vomiting from his chronic pancreatitis. He was found to have intrahepatic E coli enteritis. Treated with 3 doses of L evaquin. Patient's diarrhea resolved totally. His nausea persisted but improved significantly. Patient has chronic nausea because his chronic pancreatitis. On discharge he was tolerating full liquids he was back to his usual nutrition the oral intake. He was ambulatory. He minimal back pain minimal abdominal pain. He was discharged home to resume his usual a restricted diet. Medications re viewed and stable. [facility] sometime within the next 2 weeks. And will see me approximately 1 week after that Exam Vital Signs (past 8 hours): - 02/18/19 04:00 02/18/19 05:10 Temperature 97.5 F L Pulse Rate 60 Respiratory Rate 16 Blood Pressure 107/68 Pulse Oximetry 98 100 Oxygen Delivery Method Room Air Oxygen Flow Rate 0 Narrative Exam Narrative: Patient is examined in the bedside chair sitting up getting ready to scream week. He looks lot better. Lungs clear heart regular rhythm no murmur gallop. Abdominal exam he does have tenderness around his periumbilical area and he a lways has tenderness even when he is well. Calves are nontender Objective Labs Result Diagrams: 02/18/19 04:55 02/18/19 04:55 Labs: Laboratory Results - last 24 hr 02/18/19 02/18/19 04:55 04:55 WBC 4.7 RBC 4.55 Hgb 14.0 Hct 41.7 MCV 91.5 MCH 30.7 MCHC 33.5 RDW 13.0 Plt Count 178 Neut % (Auto) 66.9 Lymph % (Auto) 22.3 L Jerome % (Auto) 7.3 Eos % (Auto) 3.2 Baso % (Auto) 0.3 Neut # (Auto) 3100 Lymph # (Auto) 1000 L Jerome # (Auto) 300 Eos # (Auto) 200 Baso # (Auto) 0 Sodium 142 Potassium 3.4 Chloride 111 H Carbon Dioxide 26 BUN 8 L Creatinine 0.70 Estimated GFR > 60.0 BUN/Creatinine Ratio 11.4 Glucose 76 L Calcium 8.9 labs reviewed and of note his blood sugar was 76 Discharge Plan Discharge Plan Patient Disposition: Home Discharge comment: [facility] 12 weeks diet as per usual Discharge orders & Medications Prescriptions: Continued clopidogrel 75 mg Tablet 75 mg PO Q DAY Qty: 0 RF: 0 diclofenac sodium [Voltaren] 1 % gel 1 crys Topical PRN PRN (Reason: Analgesia) Qty: 0 RF: 0 methylphenidate HCl 20 mg tablet See Rx Instructions .ROUTE .COMPLEX Qty: 90 RF: 0 metoprolol tartrate 50 mg tablet 12.5 mg PO BID RF: 0 lisinopril 20 mg tablet 2.5 mg PO DAILY RF: 0 omeprazole 40 mg Capsule,Delayed Release(Dr/Ec) 40 mg PO BID RF: 0 Novolog Flexpen U-100 Insulin 100 unit/mL Insulin Pen 2 unit Sub-Q TID RF: 0 Creon 6,000-19,000 -30,000 unit Capsule,Delayed Release(Dr/Ec) 1 cap PO DIRECTED RF: 0 Creon 36,000-114,000- 180,000 unit Capsule,Delayed Release(Dr/Ec) 1 cap PO DIRECTED RF: 0 cholecalciferol (vitamin D3) [Vitamin D3] 1,000 unit Capsule 1,000 unit PO BID RF: 0 acetaminophen 325 MG tablet 325 mg PO Q4HP PRN (Reason: Pain, Mild) RF: 0 dabigatran etexilate 150 mg Capsule 150 mg PO BID RF: 0 oxycodone 5 mg Tablet 5 mg PO Q4HR PRN (Reason: Pain, Moderate (4-6)) Qty: 20 RF: 0 pravastatin 80 mg 80 mg PO DAILY RF: 0 ondansetron 4 mg Tablet,Disintegrating 4 mg PO Q6H PRN (Reason: Nausea) RF: 0 ondansetron 8 mg Tablet,Disintegrating 8 mg PO PRN PRN (Reason: Nausea) RF: 0 Lantus U-100 Insulin 100 units/ml auto-injector 10 units subcut DAILY RF: 0 fluticasone propionate 50 mcg intranasal DAILY RF: 0 Follow up/Referrals: Indra Hammond MD [Primary Care Provider] - Discharge Health Status Multidrug resistant organism: No MDRO Diet/Activity/Treatments Diet: Diet as Tolerated Discharge Data Primary Care Provider: Indra Hammond
[2019-02-18 09:30] VITALS: O2SAT 100
--- NOTE | 2019-02-18 11:20 | PC.NURSE ---
Discharge: IV dc'd intact. Reviewed discharge instructions thoroughly with patient. No new scripts, no change to home meds. [facility] and patient said Dr Hammond told him the office would call to schedule follow up for approx 2 weeks. Activity and diet as tolerated. Retrieved home meds from pharmacy and given to patient. All personal belongings collected and sent with patient. Patient verbalized understanding of all d/c instructions and stated no further questions. Wheeled out to private vehicle by this automatic typewriter inspector.
--- NOTE | 2019-02-18 13:35 | CM.DPC ---
DCP: continued: case received, d/c to home order noted. Pt will be following up with Dr. Hammond as well as [facility] provider. Pt was up, mobilizing and tolerating diet. Home today as per his plan. Went to check in with pt but he had already gone over d/c instructions and had left the building.
== END 2019-02-18 11:28 | disposition home or self-care (01) | DRG 372 ==
LOC: ED 23:44 → AC 23:49
PROVIDERS: Admitting Provider Family Medicine; Emergency Provider Emergency Medicine; Family Provider Emergency Medicine Emergency Medical Services; PCP Family Medicine; Visit Provider Family Medicine
DX: A04.0 Enteropathogenic Escherichia coli infection (principal); K86.1 Other chronic pancreatitis; E11.51 Type 2 diabetes mellitus with diabetic peripheral angiopathy without gangrene; I48.0 Paroxysmal atrial fibrillation; K21.9 Gastro-esophageal reflux disease without esophagitis; I10 Essential (primary) hypertension; E78.5 Hyperlipidemia, unspecified; E11.9 Type 2 diabetes mellitus without complications; G89.29 Other chronic pain; Z79.4 Long term (current) use of insulin; G47.419 Narcolepsy without cataplexy; Z87.891 Personal history of nicotine dependence; Z79.01 Long term (current) use of anticoagulants
CPT/HCPCS: 36415; 74177; 80048; 80053; 82962; 83605; 83690; 85025; 87177; 87507; 96361; 96374; 96375; 97116; 97162; 99223; 99232; 99233; 99238; 99284; 99285; A9270; C9113; J1200; J1956; J2060; J2405; J2765; J2930; Q9967

== ENCOUNTER 2019-04-16 13:20 | Emergency (ER) | payer OTHER, SELFPAY ==
[2019-02-13 00:26] VITALS: BMI 22.6
[2019-04-16 13:27] VITALS: BP 129/77; PULSE 63; RESP 16; TEMP 35.8; O2SAT 100
[2019-04-16] MEDS: SODIUM CHLORIDE 0.9% 1,000 ML 1000 ML IV ×2 (13:52→15:04)
[2019-04-16] MEDS: ONDANSETRON 4 MG/2 ML INJ IV (13:52)
[2019-04-16 14:22] LABS: Add Manual Diff / Slide Review NO; Basophils Absolute Auto 0 /uL (0-100); Basophils Percent Auto 0.5 % (0-2); Eosinophils Absolute Auto 100 /uL (0-450); Eosinophils Percent Auto 2.5 % (2-4); Hematocrit 43.1 % (41-53); Hemoglobin 14.8 g/dL (13.5-17.5); Lymphocytes Absolute Auto 1300 /uL (1100-4500); Lymphocytes Percent Auto 23.4 % (25-40); Mean Corpuscular HGB Conc 34.4 % (30-36); Mean Corpuscular Hemoglobin 30.6 PG (26-34); Monocytes Absolute Auto 600 /uL (0-900); Monocytes Percent Auto 10.2 % (3-14); Neutrophils Absolute Auto 3500 /uL (1500-7000); Neutrophils Percent Auto 63.4 % (50-75); Platelet Count 218 X10^3/uL (150-400); Red Blood Cell Count 4.84 X10^6/uL (4.5-5.9); Red Cell Distribution Width 13.2 % (11.6-14.8); White Blood Cell Count 5.6 X10^3/uL (4.5-11.0)
[2019-04-16 14:32] LABS: Lactate (Lactic Acid) 2.3 mmol/L (0.7-2.1)
[2019-04-16 14:33] LABS: Alanine Aminotransferase 18 IU/L (<50); Albumin 4.6 g/dL (3.5-5.0); Albumin Globulin Ratio 1.6 (1.0-2.8); Alkaline Phosphatase 77 U/L (38-126); Aspartate Aminotransferase 27 IU/L (17-59); BUN Creatinine Ratio 16.7 (6-22); Bilirubin Total 0.4 mg/dL (0.2-1.3); Blood Urea Nitrogen 10 mg/dL (9-20); Calcium 9.4 mg/dL (8.4-10.2); Carbon Dioxide 29 mmol/L (22-32); Chloride 101 mmol/L (98-107); Estimated Glomerular Filt Rate > 60.0 mL/min (>60); Globulin 2.8 g/dL (1.7-4.1); Glucose 103 mg/dL (80-110); HEMOLYSIS < 15 (0-50); Lipase 85 U/L (23-300); Potassium 4.7 mmol/L (3.4-5.1); Sodium 139 mmol/L (137-145); Total Protein 7.4 g/dL (6.3-8.2)
[2019-04-16 15:19] LABS: Magnesium 1.8 mg/dL (1.6-2.3)
[2019-04-16] MEDS: METOCLOPRAMIDE 10 MG/2 ML INJ IV (15:31)
[2019-04-16] MEDS: diphenhydrAMINE 50 MG/ML VIAL IV (15:31)
[2019-04-16] MEDS: LORazepam 2 MG/ML INJ 0.5 MG IV (16:00)
[2019-04-16 16:16] LABS: Reflexed Lactate in 2 Hours Y
[2019-04-16 16:50] LABS: INR 1.2 (0.9-1.3); Prothrombin Time 14.2 SECONDS (10.1-12.7)
[2019-04-16 16:53] LABS: PTT Partial Thromboplastin Tim 42 SECONDS (26.4-36.2)
[2019-04-16 19:05] VITALS: BP 94/57; PULSE 66; O2SAT 95
--- NOTE | 2019-04-16 21:02 | ED.NAVMDI ---
HPI - Nausea/Vomiting/Diarrhea <Laina Lovelace, CHILD CARE SITTER-BC - Last Filed: 04/16/19 21:05> General Chief complaint: Nausea/Vomiting/Diarrhea Stated complaint: states dehydrated Time Seen by Provider: 04/16/19 14:51 Source: patient Mode of arrival: Ambulatory Limitations: no limitations History of Present Illness HPI Narrative: The patient is a 64-year-old male former smoker with history of pancreatitis who presents to the emergency department with a chief complaint of diarrhea for the past week. He states he thinks he miss dosed his pancreatic enzymes resulting in diarrhea. He has not taken anything to feel better. He does have a history of sepsis related to E coli. He states he is eating and drinking well, trying to replace fluids, but cannot catch up with his watery diarrhea. He denies any chest pain or shortness of breath. He denies any lightheadedness or dizziness. He states he has chronic abdominal pain, nothing abnormal. He is not concerned about his abdominal pain at this point time. He has been using Zofran at home. He denies any sore throat, ear pain or other complaints today. Related Data Home Medications Medication Instructions Recorded Confirmed clopidogrel 75 mg PO Q DAY #0 04/15/08 03/03/19 diclofenac sodium [Voltaren] 1 crys TOPICAL PRN PRN #0 03/14/17 03/03/19 Creon 1 cap PO DIRECTED 08/17/17 03/03/19 Creon 1 cap PO DIRECTED 08/17/17 03/03/19 Novolog Flexpen U-100 Insulin 2 unit SUB-Q TID 08/17/17 03/03/19 omeprazole 40 mg PO BID 08/17/17 03/03/19 acetaminophen 325 mg PO Q4HP PRN 09/25/17 03/03/19 cholecalciferol (vitamin D3) 1,000 unit PO BID 09/25/17 03/03/19 [Vitamin D3] dabigatran etexilate 150 mg PO BID 03/24/18 03/03/19 lisinopril 20 mg tablet 2.5 mg PO DAILY tab 11/19/18 03/03/19 metoprolol tartrate 50 mg tablet 12.5 mg PO BID tab 11/19/18 03/03/19 Lantus U-100 Insulin 10 units SUBCUT DAILY 02/13/19 03/03/19 fluticasone propionate 50 mcg INTRANASAL DAILY 02/13/19 03/03/19 ondansetron 4 mg PO Q6H PRN 02/13/19 03/03/19 pravastatin 80 mg PO DAILY 02/13/19 03/03/19 Previous Rx's Medication Instructions Recorded oxycodone 5 mg PO Q4HR PRN #20 tab 03/31/18 ondansetron 8 mg disintegrating 8 mg PO Q8H PRN #30 tab 03/03/19 tablet gentamicin 0.3 % eye drops 1 drop EYE-BOTH TID PRN #5 ml 03/11/19 methylphenidate HCl 20 mg tablet See Rx Instructions .ROUTE 03/21/19 .COMPLEX #90 tablet Allergies Allergy/AdvReac Type Severity Reaction Status Date / Time Iodine and Iodide Containing Allergy Severe Anaphylaxis Verified 04/16/19 13:50 Produc [IODINE AND IODIDE CONTAINING PRODUC] Sulfa (Sulfonamide Allergy Severe Anaphylaxis Verified 04/16/19 13:50 Antibiotics) [SULFA (SULFONAMIDE ANTIBIOTICS)] Review of Systems <DENNY Collazo - Last Filed: 04/16/19 21:05> Review of Systems Narrative: GENERAL: Denies chills, fatigue, malaise, fever, sweats. HEENT: Denies sinus pain, ear pain, sore throat, difficulty swallowing, dizziness. RESPIRATORY: Denies dyspnea, cough, wheezing, hemoptysis, sputum. CARDIOVASCULAR: Denies chest pain, palpitations, orthopnea, edema, GASTROINTESTINAL: See HPI : Denies dysuria, frequency, incontinence, hematuria, urinary retention. MUSCULOSKELETAL: denies weakness, joint pain, or bony pain SKIN: Denies rash, skin lesions, or other NEUROLOGIC: Denies weakness, headache, numbness, change in speech, confusion, seizures, incoordination. PSYCHIATRIC: No concerning psychosocial issues. 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 Normocephalic. No temporal or scalp tenderness. EYES: Pupils equal round and reactive. Extraocular motions intact. No scleral icterus. No injection or drainage. ENT: Nose without bleeding, purulent drainage or septal hematoma. Throat without erythema, tonsillar hypertrophy or exudate. Uvula midline. Airway patent. NECK: Trachea midline. No JVD or lymphadenopathy. Supple, nontender, no meningeal signs. CARDIOVASCULAR: Regular rate and rhythm RESPIRATORY: Clear to auscultation. Breath sounds equal bilaterally. No wheezes, rales, or rhonchi. No cough. No increased respiratory effort. No accessory muscle use. GASTROINTESTINAL: Abdomen soft, diffusely tender to palpation, nondistended. No hepato-splenomegaly, or palpable masses. No guarding. Active bowel sounds all 4 quadrants EXTREMITIES: No clubbing, cyanosis, or edema. No joint tenderness, effusion, or edema noted. BACK: Nontender without deformity or crepitance. No flank tenderness. NEURO: AOx3. SKIN: No rash or erythema on visible skin Initial Vital Signs Initial Vital Signs: Vital Signs Temperature 96.5 F L 04/16/19 13:27 Pulse Rate 63 04/16/19 13:27 Respiratory Rate 16 04/16/19 13:27 Blood Pressure 129/77 04/16/19 13:27 Pulse Oximetry 100 04/16/19 13:27 <Henry Hrisch MD - Last Filed: 04/17/19 07:09> Initial Vital Signs Initial Vital Signs: Vital Signs Temperature 96.5 F L 04/16/19 13:27 Pulse Rate 63 04/16/19 13:27 Respiratory Rate 16 04/16/19 13:27 Blood Pressure 129/77 04/16/19 13:27 Pulse Oximetry 100 04/16/19 13:27 Course <ALLYSON Collazo - Last Filed: 04/16/19 21:05> Orders Ordered: Discontinued Medications Diphenhydramine HCl (Benadryl) 50 mg IV NOW ONE Stop: 04/16/19 15:28 Last Admin: 04/16/19 15:31 Dose: 50 mg Documented by: DEUCE Sodium Chloride (Normal Saline 0.9%) 1,000 mls @ 1,000 mls/hr IV BOLUS ONE Stop: 04/16/19 14:36 Last Infusion: 04/16/19 15:01 Dose: 0 mls/hr Documented by: Admin: 04/16/19 13:52 Dose: 1,000 mls/hr Documented by: MARINA Sodium Chloride (Normal Saline 0.9%) 1,000 mls @ 1,000 mls/hr IV BOLUS ONE Stop: 04/16/19 16:00 Last Infusion: 04/16/19 16:01 Dose: 0 mls/hr Documented by: Admin: 04/16/19 15:04 Dose: 1,000 mls/hr Documented by: MARINA Lorazepam (Ativan) 0.5 mg IV NOW ONE Stop: 04/16/19 15:55 Last Admin: 04/16/19 16:00 Dose: 0.5 mg Documented by: DEUCE Metoclopramide HCl (Reglan) 10 mg IV NOW ONE Stop: 04/16/19 15:28 Last Admin: 04/16/19 15:31 Dose: 10 mg Documented by: DEUCE Ondansetron HCl (Zofran) 4 mg IV NOW ONE Stop: 04/16/19 13:37 Last Admin: 04/16/19 13:52 Dose: 4 mg Documented by: MARINA Vital Signs Vital signs: Vital Signs - 8 hr 04/16/19 13:27 04/16/19 19:05 Temperature 96.5 F L Pulse Rate 63 66 Respiratory Rate 16 Blood Pressure 129/77 94/57 L Pulse Oximetry 100 95 <Henry Hirsch MD - Last Filed: 04/17/19 07:09> Orders Ordered: Discontinued Medications Diphenhydramine HCl (Benadryl) 50 mg IV NOW ONE Stop: 04/16/19 15:28 Last Admin: 04/16/19 15:31 Dose: 50 mg Documented by: DEUCE Sodium Chloride (Normal Saline 0.9%) 1,000 mls @ 1,000 mls/hr IV BOLUS ONE Stop: 04/16/19 14:36 Last Infusion: 04/16/19 15:01 Dose: 0 mls/hr Documented by: Admin: 04/16/19 13:52 Dose: 1,000 mls/hr Documented by: MARINA Sodium Chloride (Normal Saline 0.9%) 1,000 mls @ 1,000 mls/hr IV BOLUS ONE Stop: 04/16/19 16:00 Last Infusion: 04/16/19 16:01 Dose: 0 mls/hr Documented by: Admin: 04/16/19 15:04 Dose: 1,000 mls/hr Documented by: MARINA Lorazepam (Ativan) 0.5 mg IV NOW ONE Stop: 04/16/19 15:55 Last Admin: 04/16/19 16:00 Dose: 0.5 mg Documented by: DEUCE Metoclopramide HCl (Reglan) 10 mg IV NOW ONE Stop: 04/16/19 15:28 Last Admin: 04/16/19 15:31 Dose: 10 mg Documented by: DEUCE Ondansetron HCl (Zofran) 4 mg IV NOW ONE Stop: 04/16/19 13:37 Last Admin: 04/16/19 13:52 Dose: 4 mg Documented by: MARINA Vital Signs Vital signs: Vital Signs - 8 hr 04/16/19 13:27 04/16/19 19:05 Temperature 96.5 F L Pulse Rate 63 66 Respiratory Rate 16 Blood Pressure 129/77 94/57 L Pulse Oximetry 100 95 MDM - Nausea/Vomiting/Diarrhea <DENNY Collazo - Last Filed: 04/16/19 21:05> Lab Data Result diagrams: 04/16/19 14:12 04/16/19 14:12 Labs: Lab Results 04/16/19 04/16/19 04/16/19 Range/Units 14:12 14:12 14:12 WBC 5.6 (4.5-11.0) X10^3/uL RBC 4.84 (4.5-5.9) X10^6/uL Hgb 14.8 (13.5-17.5) g/dL Hct 43.1 (41-53) % MCV 89.0 (80-100) fL MCH 30.6 (26-34) PG MCHC 34.4 (30-36) % RDW 13.2 (11.6-14.8) % Plt Count 218 (150-400) X10^3/uL Neut % (Auto) 63.4 (50-75) % Lymph % (Auto) 23.4 L (25-40) % Meagher % (Auto) 10.2 (3-14) % Eos % (Auto) 2.5 (2-4) % Baso % (Auto) 0.5 (0-2) % Neut # (Auto) 3500 (5435-2141) /uL Lymph # (Auto) 1300 (5699-0885) /uL Meagher # (Auto) 600 (0-900) /uL Eos # (Auto) 100 (0-450) /uL Baso # (Auto) 0 (0-100) /uL PT (10.1-12.7) SECONDS INR (0.9-1.3) APTT (26.4-36.2) SECONDS Sodium 139 (137-145) mmol/L Potassium 4.7 (3.4-5.1) mmol/L Chloride 101 (98-107) mmol/L Carbon Dioxide 29 (22-32) mmol/L BUN 10 (9-20) mg/dL Creatinine 0.60 L (0.66-1.25) mg/dL Estimated GFR > 60.0 (>60) mL/min BUN/Creatinine Ratio 16.7 (6-22) Glucose 103 (80-110) mg/dL Lactate 2.3 H (0.7-2.1) mmol/L Calcium 9.4 (8.4-10.2) mg/dL Magnesium (1.6-2.3) mg/dL Total Bilirubin 0.4 (0.2-1.3) mg/dL AST 27 (17-59) IU/L ALT 18 (<50) IU/L Alkaline Phosphatase 77 (38-126) U/L Total Protein 7.4 (6.3-8.2) g/dL Albumin 4.6 (3.5-5.0) g/dL Globulin 2.8 (1.7-4.1) g/dL Albumin/Globulin Ratio 1.6 (1.0-2.8) Lipase 85 (23-300) U/L 04/16/19 04/16/19 04/16/19 Range/Units 14:12 16:32 16:32 WBC (4.5-11.0) X10^3/uL RBC (4.5-5.9) X10^6/uL Hgb (13.5-17.5) g/dL Hct (41-53) % MCV (80-100) fL MCH (26-34) PG MCHC (30-36) % RDW (11.6-14.8) % Plt Count (150-400) X10^3/uL Neut % (Auto) (50-75) % Lymph % (Auto) (25-40) % Meagher % (Auto) (3-14) % Eos % (Auto) (2-4) % Baso % (Auto) (0-2) % Neut # (Auto) (5344-2153) /uL Lymph # (Auto) (7666-0559) /uL Meagher # (Auto) (0-900) /uL Eos # (Auto) (0-450) /uL Baso # (Auto) (0-100) /uL PT 14.2 H (10.1-12.7) SECONDS INR 1.2 (0.9-1.3) APTT 42 H D (26.4-36.2) SECONDS Sodium (137-145) mmol/L Potassium (3.4-5.1) mmol/L Chloride (98-107) mmol/L Carbon Dioxide (22-32) mmol/L BUN (9-20) mg/dL Creatinine (0.66-1.25) mg/dL Estimated GFR (>60) mL/min BUN/Creatinine Ratio (6-22) Glucose (80-110) mg/dL Lactate 1.0 (0.7-2.1) mmol/L Calcium (8.4-10.2) mg/dL Magnesium 1.8 (1.6-2.3) mg/dL Total Bilirubin (0.2-1.3) mg/dL AST (17-59) IU/L ALT (<50) IU/L Alkaline Phosphatase (38-126) U/L Total Protein (6.3-8.2) g/dL Albumin (3.5-5.0) g/dL Globulin (1.7-4.1) g/dL Albumin/Globulin Ratio (1.0-2.8) Lipase (23-300) U/L Urine Dip Bedside Urine Glucose Negative Bedside Urine Bilirubin - Negative Bedside Urine Ketone - Negative Urine Specific [place] 1.005 Bedside Urine Occult Blood - Negative Bedside Urine pH 6.5 Bedside Urine Protein - Negative Bedside Urine Urobilinogen - Negative Bedside Urine Nitrite - Negative Bedside Urine Leukocytes - Negative Esterase MDM Narrative Medical decision making narrative: The patient is a 64-year-old male who presents with a chief complaint of diarrhea for the past week. He states he has a history of pancreatic enzyme deficiency, and thinks he has miss dosed his pancreatic enzymes. His exam is overall nonacute, he has no abnormal complaints of abdominal pain, he has no leukocytosis, is tolerating p.o. food and fluids. He is unable to give a stool sample in the emergency department to tack for E coli. He does have a history of E coli and resulting sepsis. However he does not have any diarrhea in the emergency department. He was given 2 L of IV fluid and felt much improved and requested to go home. I discussed at length the importance of following up with primary care provider, coming back to emergency department for any acute concerns such as abdominal pain with fever, inability keep down fluids etcetera. Patient has no questions or concerns upon discharge and states understanding of return precautions as well as follow-up care. <Henry Hirsch MD - Last Filed: 04/17/19 07:09> Lab Data Labs: Lab Results 04/16/19 04/16/19 04/16/19 Range/Units 14:12 14:12 14:12 WBC 5.6 (4.5-11.0) X10^3/uL RBC 4.84 (4.5-5.9) X10^6/uL Hgb 14.8 (13.5-17.5) g/dL Hct 43.1 (41-53) % MCV 89.0 (80-100) fL MCH 30.6 (26-34) PG MCHC 34.4 (30-36) % RDW 13.2 (11.6-14.8) % Plt Count 218 (150-400) X10^3/uL Neut % (Auto) 63.4 (50-75) % Lymph % (Auto) 23.4 L (25-40) % Meagher % (Auto) 10.2 (3-14) % Eos % (Auto) 2.5 (2-4) % Baso % (Auto) 0.5 (0-2) % Neut # (Auto) 3500 (0329-8042) /uL Lymph # (Auto) 1300 (0631-9896) /uL Meagher # (Auto) 600 (0-900) /uL Eos # (Auto) 100 (0-450) /uL Baso # (Auto) 0 (0-100) /uL PT (10.1-12.7) SECONDS INR (0.9-1.3) APTT (26.4-36.2) SECONDS Sodium 139 (137-145) mmol/L Potassium 4.7 (3.4-5.1) mmol/L Chloride 101 (98-107) mmol/L Carbon Dioxide 29 (22-32) mmol/L BUN 10 (9-20) mg/dL Creatinine 0.60 L (0.66-1.25) mg/dL Estimated GFR > 60.0 (>60) mL/min BUN/Creatinine Ratio 16.7 (6-22) Glucose 103 (80-110) mg/dL Lactate 2.3 H (0.7-2.1) mmol/L Calcium 9.4 (8.4-10.2) mg/dL Magnesium (1.6-2.3) mg/dL Total Bilirubin 0.4 (0.2-1.3) mg/dL AST 27 (17-59) IU/L ALT 18 (<50) IU/L Alkaline Phosphatase 77 (38-126) U/L Total Protein 7.4 (6.3-8.2) g/dL Albumin 4.6 (3.5-5.0) g/dL Globulin 2.8 (1.7-4.1) g/dL Albumin/Globulin Ratio 1.6 (1.0-2.8) Lipase 85 (23-300) U/L 01/22/20 01/22/20 01/22/20 Range/Units 14:12 16:32 16:32 WBC (4.5-11.0) X10^3/uL RBC (4.5-5.9) X10^6/uL Hgb (13.5-17.5) g/dL Hct (41-53) % MCV (80-100) fL MCH (26-34) PG MCHC (30-36) % RDW (11.6-14.8) % Plt Count (150-400) X10^3/uL Neut % (Auto) (50-75) % Lymph % (Auto) (25-40) % Meagher % (Auto) (3-14) % Eos % (Auto) (2-4) % Baso % (Auto) (0-2) % Neut # (Auto) (4394-0691) /uL Lymph # (Auto) (7998-8844) /uL Meagher # (Auto) (0-900) /uL Eos # (Auto) (0-450) /uL Baso # (Auto) (0-100) /uL PT 14.2 H (10.1-12.7) SECONDS INR 1.2 (0.9-1.3) APTT 42 H D (26.4-36.2) SECONDS Sodium (137-145) mmol/L Potassium (3.4-5.1) mmol/L Chloride (98-107) mmol/L Carbon Dioxide (22-32) mmol/L BUN (9-20) mg/dL Creatinine (0.66-1.25) mg/dL Estimated GFR (>60) mL/min BUN/Creatinine Ratio (6-22) Glucose (80-110) mg/dL Lactate 1.0 (0.7-2.1) mmol/L Calcium (8.4-10.2) mg/dL Magnesium 1.8 (1.6-2.3) mg/dL Total Bilirubin (0.2-1.3) mg/dL AST (17-59) IU/L ALT (<50) IU/L Alkaline Phosphatase (38-126) U/L Total Protein (6.3-8.2) g/dL Albumin (3.5-5.0) g/dL Globulin (1.7-4.1) g/dL Albumin/Globulin Ratio (1.0-2.8) Lipase (23-300) U/L Urine Dip Bedside Urine Glucose Negative Bedside Urine Bilirubin - Negative Bedside Urine Ketone - Negative Urine Specific [place] 1.005 Bedside Urine Occult Blood - Negative Bedside Urine pH 6.5 Bedside Urine Protein - Negative Bedside Urine Urobilinogen - Negative Bedside Urine Nitrite - Negative Bedside Urine Leukocytes - Negative Esterase Discharge Plan Departure Patient Disposition: Home Clinical Impression: Dehydration Discharge Date/Time: 04/16/19 19:06 Instructions: Diarrhea (Alternative Therapy), Diarrhea, DI for Dehydration -- Adult Activity Restrictions/Additional Instructions: Your lab work came back very well today Given the fluids and nausea medications. Please follow-up with primary care provider in the next few days Please come back to the emergency department for any acute concerns Prescriptions: No Action clopidogrel 75 mg Tablet 75 mg PO Q DAY Qty: 0 RF: 0 diclofenac sodium [Voltaren] 1 % gel 1 crys Topical PRN PRN (Reason: Analgesia) Qty: 0 RF: 0 gentamicin 0.3 % drops 1 drop EYE-BOTH TID PRN (Reason: Blepharitis) Qty: 5 RF: 0 methylphenidate HCl 20 mg tablet See Rx Instructions .ROUTE .COMPLEX Qty: 90 RF: 0 metoprolol tartrate 50 mg tablet 12.5 mg PO BID RF: 0 lisinopril 20 mg tablet 2.5 mg PO DAILY RF: 0 ondansetron 8 mg tablet,disintegrating 8 mg PO Q8H PRN (Reason: nausea and vomiting) Qty: 30 RF: 0 omeprazole 40 mg Capsule,Delayed Release(Dr/Ec) 40 mg PO BID RF: 0 Novolog Flexpen U-100 Insulin 100 unit/mL Insulin Pen 2 unit Sub-Q TID RF: 0 Creon 6,000-19,000 -30,000 unit Capsule,Delayed Release(Dr/Ec) 1 cap PO DIRECTED RF: 0 Creon 36,000-114,000- 180,000 unit Capsule,Delayed Release(Dr/Ec) 1 cap PO DIRECTED RF: 0 cholecalciferol (vitamin D3) [Vitamin D3] 1,000 unit Capsule 1,000 unit PO BID RF: 0 acetaminophen 325 MG tablet 325 mg PO Q4HP PRN (Reason: Pain, Mild) RF: 0 dabigatran etexilate 150 mg Capsule 150 mg PO BID RF: 0 oxycodone 5 mg Tablet 5 mg PO Q4HR PRN (Reason: Pain, Moderate (4-6)) Qty: 20 RF: 0 pravastatin 80 mg 80 mg PO DAILY RF: 0 ondansetron 4 mg Tablet,Disintegrating 4 mg PO Q6H PRN (Reason: Nausea) RF: 0 Lantus U-100 Insulin 100 units/ml auto-injector 10 units subcut DAILY RF: 0 fluticasone propionate 50 mcg intranasal DAILY RF: 0 Referrals: Indra Hammond MD [Primary Care Provider] -
== END 2019-04-16 19:06 | disposition home or self-care (01) ==
PROVIDERS: Emergency Medicine; Emergency Provider Nurse Practitioner Family; Family Provider Emergency Medicine Emergency Medical Services; PCP Family Medicine
DX: R19.7 Diarrhea, unspecified (principal); E86.0 Dehydration
CPT/HCPCS: 36415; 80053; 81003; 83605; 83690; 83735; 85025; 85610; 85730; 96361; 96374; 96375; 99284; J1200; J2060; J2405; J2765

== ENCOUNTER 2019-04-28 13:47 | Inpatient (IN) | payer OTHER, SELFPAY ==
[2019-02-13 00:26] VITALS: BMI 22.6
[2019-04-28 14:16] VITALS: BMI 21.8
[2019-04-28 14:27] VITALS: TEMP 36.5
--- NOTE | 2019-04-28 14:27 | PC.NURSE ---
multiple warm blanket, nunu hugger initiated.
--- NOTE | 2019-04-28 14:42 | DI.CT.S_ITS ---
PROCEDURE: CT ABDOMEN PELVIS W CON INDICATIONS: Severe diffuse abdominal pain, h/o pacreatitis TECHNIQUE: After the administration of intravenous contrast, 5 mm thick sections acquired from the diaphragm to the symphysis. 5 mm coronal and sagittal reformats were acquired. For radiation dose reduction, the following was used: automated exposure control, adjustment of mA and/or kV according to patient size. COMPARISON: [facility], CT, CT ABDOMEN PELVIS W CON, 02/12/2019, 22:59. FINDINGS: Image quality: Excellent. ABDOMEN: Lung bases: Lung bases are clear. Heart size is normal. Solid organs: Liver is normal in size and enhancement. Gallbladder is unremarkable. Biliary system is non dilated. Pancreas enhances normally. Spleen is normal in size and enhancement. No adrenal nodules. Kidneys demonstrate normal size and enhancement, without hydronephrosis. Peritoneum and bowel: Bowel loops demonstrate normal wall thickness and caliber. The appendix is thin walled and gas filled. There is predominantly liquid stool throughout the colon. No free fluid or air. Nodes and vessels: No retroperitoneal or mesenteric adenopathy by size criteria. Aorta and inferior vena cava are normal in size. There are scattered atheromatous calcifications throughout the aorta and iliac arteries bilaterally. Miscellaneous: No ventral hernias. PELVIS: Genitourinary: Bladder wall thickness is normal. Miscellaneous: No inguinal hernias or adenopathy. Bones: No suspicious bony lesions. No vertebral body compression fractures. IMPRESSION: 1. No acute intra-abdominal findings. Normal appendix. 2. No findings to suggest acute pancreatitis or the sequela of prior pancreatitis. 3. Liquid stool throughout the colon. Dictated by: Karolyn Mohr M.D. on 04/28/2019 at 15:58 Approved by: Karolyn Mohr M.D. on 04/28/2019 at 16:03
[2019-04-28] MEDS: SODIUM CHLORIDE 0.9% 1,000 ML 1000 ML IV (14:50)
[2019-04-28] MEDS: HYDROMORPHONE 1 MG INJ IV ×2 (14:51→19:03)
[2019-04-28] MEDS: ONDANSETRON 4 MG/2 ML INJ IV ×3 (14:51→21:39)
--- NOTE | 2019-04-28 15:14 | ED.ABDPAIN ---
HPI - Abdominal Pain <Jossie QuinnLEDY gama - Last Filed: 04/28/19 21:12> General Chief Complaint: Abdominal Pain Stated Complaint: something is wrong with pancreas Time Seen by Provider: 04/28/19 14:17 Mode of arrival: Wheelchair History of Present Illness HPI narrative: 64yo male with history of pancreatitis, A-fib, DM, HTN, and sepsis, and multiple visits to the emergency department in the past few months for abdominal pain, presents emergency department complaining of a dull aching 10/10 abdominal pain last night and vomiting starting 2 hours ago. Patient states he has tried ondansetron and a rectal suppository without relief. He states he has the chills. He denies any chest pain, shortness of breath, dizziness, syncope, diarrhea, fevers, or other concerns. Patient is concerned that he has pancreatitis again. Patient reported a significant decrease in pain after administration of Dilaudid, and he did not vomit after administration of Zofran. Related Data Home Medications Medication Instructions Recorded Confirmed clopidogrel 75 mg PO DAILY #0 04/15/08 04/28/19 diclofenac sodium [Voltaren] 1 crys TOPICAL QID PRN #0 03/14/17 04/28/19 Creon 2 cap PO QID 08/17/17 04/28/19 insulin aspart U-100 [Novolog 3 unit SUB-Q TID 08/17/17 04/28/19 Flexpen U-100 Insulin] omeprazole 40 mg PO BID 08/17/17 04/28/19 acetaminophen 325 mg PO Q4HP PRN 09/25/17 04/28/19 cholecalciferol (vitamin D3) 3,000 unit PO DAILY 09/25/17 04/28/19 [Vitamin D3] dabigatran etexilate 150 mg PO BID 03/24/18 04/28/19 fluticasone propionate 50 mcg INTRANASAL DAILY #0 02/13/19 04/28/19 insulin glargine [Lantus Solostar 10 units SUBCUT DAILY #0 02/13/19 04/28/19 U-100 Insulin] ondansetron 4 mg PO Q6H PRN 02/13/19 04/28/19 pravastatin 80 mg PO BEDTIME #0 02/13/19 04/28/19 lisinopril 2.5 mg PO DAILY 04/28/19 04/28/19 methylphenidate HCl 20 mg PO TID 04/28/19 04/28/19 metoprolol tartrate 12.5 mg PO BID 04/28/19 04/28/19 sildenafil 50 mg PO DAILY PRN MDD 50 mg 04/28/19 04/28/19 Previous Rx's Medication Instructions Recorded oxycodone 5 mg PO Q4HR PRN #20 tab 03/31/18 ondansetron 8 mg disintegrating 8 mg PO Q8H PRN #30 tab 03/03/19 tablet Allergies Allergy/AdvReac Type Severity Reaction Status Date / Time Iodine and Iodide Containing Allergy Severe Anaphylaxis Verified 04/28/19 14:16 Produc [IODINE AND IODIDE CONTAINING PRODUC] Sulfa (Sulfonamide Allergy Severe Anaphylaxis Verified 04/28/19 14:16 Antibiotics) [SULFA (SULFONAMIDE ANTIBIOTICS)] Review of Systems <LEDY Ceballos - Last Filed: 04/28/19 21:12> Review of Systems Narrative: REVIEW OF SYSTEMS: GENERAL: Denies fever, chills, malaise, or wt. loss. HENT: No head trauma. EYES: No loss of vision, double vision, eye pain, or irritation. CARDIOVASCULAR: No chest pain, palpitations, or orthopnea. RESPIRATORY: No shortness of breath or cough. GASTROINTESTINAL: Complains of abdominal pain and vomiting, see HPI GENITOURINARY: No flank pain. MUSCULOSKELETAL: No trauma. INTEGUMENTARY: No rash. NEURO: No headaches. PSYCH: No behavior or mood changes. 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 Answers questions promptly and appropriately. Vital signs noted. HENT: Normocephalic, atraumatic. Hearing intact. Oral mucosa is pink and moist. Oropharynx without erythema. EYES: PERRLA, Conjunctiva pink, sclera white, no periorbital swelling. CARDIOVASCULAR: S1 and S2 sounds normal. Regular rate and rhythm, no murmurs, clicks, or bruits. No pedal edema. RESPIRATORY: Normal respiratory rate, trachea midline, airway patent. No stridor, nasal flaring or accessory muscle use. Lungs are clear in all godfrey without wheeze, rhonchi, or crackles. GASTROINTESTINAL: Bowel sounds normoactive. Abdomen is soft and significantly tender in all quadrants. No organomegaly, no palpable masses. GENITALURINARY: No flank tenderness. MUSCULOSKELETAL: Normal gait and coordination. Equal tone and mass bilaterally. EXTREMITIES: Initially, patient exhibited decreased cap refill. 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 SKIN: Originally patient appeared pale. After administration of fluid patient's skin was warm, pink, and dry. No rashes or lesions noted to visible areas. NEURO: Alert and Oriented X 3. Good coordination. No ataxia. PSYCH: Appropriate affect and mood. <Adi Dietrich DO - Last Filed: 04/28/19 21:15> Initial Vital Signs Initial Vital Signs: Vital Signs Temperature 97.7 F 04/28/19 14:27 Course <Jossie LEDY Malave - Last Filed: 04/28/19 21:12> Course Course Narrative: Upon presentation, patient was given 1 L fluid, after labs resulted sepsis fluid bolus was initiated and nursing was instructed to subtract 1 L bolus from required fluid resuscitation calculation. Patient initially presented with shivers, he was given warm blankets and a Marga Hugger was put on patient to help with shivers, patient was afebrile at this time. Zosyn was ordered after blood cultures were collected. Patient was medicated as previously medicated for CT with contrast, he was given 125 of Solu-Medrol and 25 of Benadryl, patient tolerated scan while without airway compromise or skin manifestations. CT was negative for any acute findings so abdominal ultrasound was ordered before admission to rule out gallstone pancreatitis. Patient was admitted to Dr. Lay. I spoke with patient about admission, patient is agreeable and appears to be feeling much better. He is sitting up in bed talking nose stating that his pain and nausea starting to come back. Additional Zofran and bladder were ordered. Orders Ordered: ED Orders 04/28/19 14:42 CT abdomen pelvis w con Stat 04/28/19 15:12 Complete Blood Count AUTO DIFF Stat Comprehensive Metabolic Panel Stat Lactate (Lactic Acid) Stat Lipase Stat Procalcitonin Stat 04/28/19 16:07 Blood Culture Stat 04/28/19 16:36 US abdomen limited Stat 04/28/19 19:39 Education, smoking cessation ONGOING 04/28/19 19:54 Lipase Stat 04/29/19 05:00 Complete Blood Count AUTO DIFF Routine Comprehensive Metabolic Panel Routine Lipase Routine Clopidogrel Bisulfate (Plavix) 75 mg PO DAILY KATHY Dabigatran (Pradaxa) 150 mg PO BID [facility] Dextrose (D50w) 25 gm IV PRN PRN PRN Reason: Hypoglycemia Hydromorphone HCl (Dilaudid) 1 mg IV Q3HR PRN PRN Reason: Pain, Moderate (4-6) Lactated Ringer's (Lactated Ringers) 1,000 mls @ 250 mls/hr IV CONT KATHY Last Admin: 04/28/19 20:03 Dose: 250 mls/hr Documented by: CHANDRA Piperacillin/Tazobactam/Dextrose (Zosyn) 3.375 gm in 50 mls @ 100 mls/hr IV Q8HR [facility] Sodium Chloride (Normal Saline 0.9%) 250 mls @ 21 mls/hr IV Q24H PRN PRN Reason: Flush Insulin Aspart (Novolog Flexpen) 0 unit SUBCUT ACHS [facility]; Protocol Insulin Glargine (Lantus Solostar (Pen)) 10 unit SUBCUT DAILY [facility] Metoprolol Tartrate (Lopressor) 12.5 mg PO BID [facility] Naloxone HCl (Narcan) 0.2 mg IV Q2MIN PRN PRN Reason: Opiate Reversal Ondansetron HCl (Zofran) 4 mg IV Q6HR PRN PRN Reason: Nausea And Vomiting Pantoprazole Sodium (Protonix) 40 mg PO BID KATHY Discontinued Medications Diphenhydramine HCl (Benadryl) 25 mg IV NOW ONE Stop: 04/28/19 14:51 Last Admin: 04/28/19 15:27 Dose: 25 mg Documented by: TAMRA Hydromorphone HCl (Dilaudid) 1 mg IV NOW ONE Stop: 04/28/19 14:47 Last Admin: 04/28/19 14:51 Dose: 1 mg Documented by: SIERRA Hydromorphone HCl (Dilaudid) 1 mg IV NOW ONE Stop: 04/28/19 18:56 Last Admin: 04/28/19 19:03 Dose: 1 mg Documented by: TAMRA Hydromorphone HCl (Dilaudid) 0.5 mg IV Q4HR PRN PRN Reason: Pain, Moderate (4-6) Sodium Chloride (Normal Saline 0.9%) 1,000 mls @ 150 mls/hr IV CONT KATHY Last Admin: 04/28/19 15:42 Dose: Not Given Documented by: TAMRA Sodium Chloride (Normal Saline 0.9%) 1,000 mls @ 1,000 mls/hr IV BOLUS ONE Stop: 04/28/19 15:18 Last Infusion: 04/28/19 15:32 Dose: 0 mls/hr Documented by: Admin: 04/28/19 14:50 Dose: 1,000 mls/hr Documented by: SIERRA Sodium Chloride (Normal Saline 0.9%) 2,068.38 mls @ 689.46 mls/hr 30 ml/kg infuse over 3 hr (2068.38 ml) IV NOW ONE Stop: 04/28/19 18:34 Last Infusion: 04/28/19 17:36 Dose: 0 mls/hr Documented by: Admin: 04/28/19 16:01 Dose: 689.46 mls/hr Documented by: SIERRA Piperacillin/Tazobactam/Dextrose (Zosyn) 4.5 gm in 100 mls @ 200 mls/hr IV NOW ONE Stop: 04/28/19 16:08 Last Infusion: 04/28/19 16:32 Dose: 0 mls/hr Documented by: Admin: 04/28/19 16:02 Dose: 200 mls/hr Documented by: SIERRA Methylprednisolone (Solu-Medrol 125 Mg Vial) 125 mg IV NOW ONE Stop: 04/28/19 14:51 Last Admin: 04/28/19 15:26 Dose: 125 mg Documented by: TAMRA Ondansetron HCl (Zofran) 4 mg IV NOW ONE Stop: 04/28/19 14:20 Last Admin: 04/28/19 14:51 Dose: 4 mg Documented by: SIERRA Ondansetron HCl (Zofran) 4 mg IV NOW ONE Stop: 04/28/19 18:55 Last Admin: 04/28/19 19:03 Dose: 4 mg Documented by: TAMRA Consultations Consultation #1: Patient was staffed with Dr. Dietrich Consultation #2: Patient admitted to Dr. Lay Vital Signs Vital signs: Vital Signs - 8 hr 04/28/19 14:27 04/28/19 16:15 04/28/19 16:45 Temperature 97.7 F Pulse Rate 95 H 99 H Respiratory Rate 28 H 25 H Blood Pressure [Left Arm] 120/64 111/63 Pulse Oximetry 97 99 04/28/19 17:00 Temperature Pulse Rate 98 H Respiratory Rate 31 H Blood Pressure [Left Arm] 106/56 L Pulse Oximetry 98 <Adi Dietrich, DO - Last Filed: 04/28/19 21:15> Orders Ordered: ED Orders 04/28/19 14:42 CT abdomen pelvis w con Stat 04/28/19 15:12 Complete Blood Count AUTO DIFF Stat Comprehensive Metabolic Panel Stat Lactate (Lactic Acid) Stat Lipase Stat Procalcitonin Stat 04/28/19 16:07 Blood Culture Stat 04/28/19 16:36 US abdomen limited Stat 04/28/19 19:39 Education, smoking cessation ONGOING 04/28/19 19:54 Lipase Stat 04/29/19 05:00 Complete Blood Count AUTO DIFF Routine Comprehensive Metabolic Panel Routine Lipase Routine Clopidogrel Bisulfate (Plavix) 75 mg PO DAILY KATHY Dabigatran (Pradaxa) 150 mg PO BID KATHY Dextrose (D50w) 25 gm IV PRN PRN PRN Reason: Hypoglycemia Hydromorphone HCl (Dilaudid) 1 mg IV Q3HR PRN PRN Reason: Pain, Moderate (4-6) Lactated Ringer's (Lactated Ringers) 1,000 mls @ 250 mls/hr IV CONT KATHY Last Admin: 04/28/19 20:03 Dose: 250 mls/hr Documented by: CHANDRA Piperacillin/Tazobactam/Dextrose (Zosyn) 3.375 gm in 50 mls @ 100 mls/hr IV Q8HR KATHY Sodium Chloride (Normal Saline 0.9%) 250 mls @ 21 mls/hr IV Q24H PRN PRN Reason: Flush Insulin Aspart (Novolog Flexpen) 0 unit SUBCUT ACHS KATHY; Protocol Insulin Glargine (Lantus Solostar (Pen)) 10 unit SUBCUT DAILY [facility] Metoprolol Tartrate (Lopressor) 12.5 mg PO BID [facility] Naloxone HCl (Narcan) 0.2 mg IV Q2MIN PRN PRN Reason: Opiate Reversal Ondansetron HCl (Zofran) 4 mg IV Q6HR PRN PRN Reason: Nausea And Vomiting Pantoprazole Sodium (Protonix) 40 mg PO BID [facility] Discontinued Medications Diphenhydramine HCl (Benadryl) 25 mg IV NOW ONE Stop: 04/28/19 14:51 Last Admin: 04/28/19 15:27 Dose: 25 mg Documented by: TAMRA Hydromorphone HCl (Dilaudid) 1 mg IV NOW ONE Stop: 04/28/19 14:47 Last Admin: 04/28/19 14:51 Dose: 1 mg Documented by: SIERRA Hydromorphone HCl (Dilaudid) 1 mg IV NOW ONE Stop: 04/28/19 18:56 Last Admin: 04/28/19 19:03 Dose: 1 mg Documented by: MINDYAPO Hydromorphone HCl (Dilaudid) 0.5 mg IV Q4HR PRN PRN Reason: Pain, Moderate (4-6) Sodium Chloride (Normal Saline 0.9%) 1,000 mls @ 150 mls/hr IV CONT KATHY Last Admin: 04/28/19 15:42 Dose: Not Given Documented by: TAMRA Sodium Chloride (Normal Saline 0.9%) 1,000 mls @ 1,000 mls/hr IV BOLUS ONE Stop: 04/28/19 15:18 Last Infusion: 04/28/19 15:32 Dose: 0 mls/hr Documented by: Admin: 04/28/19 14:50 Dose: 1,000 mls/hr Documented by: SIERRA Sodium Chloride (Normal Saline 0.9%) 2,068.38 mls @ 689.46 mls/hr 30 ml/kg infuse over 3 hr (2068.38 ml) IV NOW ONE Stop: 04/28/19 18:34 Last Infusion: 04/28/19 17:36 Dose: 0 mls/hr Documented by: Admin: 04/28/19 16:01 Dose: 689.46 mls/hr Documented by: SIERRA Piperacillin/Tazobactam/Dextrose (Zosyn) 4.5 gm in 100 mls @ 200 mls/hr IV NOW ONE Stop: 04/28/19 16:08 Last Infusion: 04/28/19 16:32 Dose: 0 mls/hr Documented by: Admin: 04/28/19 16:02 Dose: 200 mls/hr Documented by: SIERRA Methylprednisolone (Solu-Medrol 125 Mg Vial) 125 mg IV NOW ONE Stop: 04/28/19 14:51 Last Admin: 04/28/19 15:26 Dose: 125 mg Documented by: TAMRA Ondansetron HCl (Zofran) 4 mg IV NOW ONE Stop: 04/28/19 14:20 Last Admin: 04/28/19 14:51 Dose: 4 mg Documented by: SIERRA Ondansetron HCl (Zofran) 4 mg IV NOW ONE Stop: 04/28/19 18:55 Last Admin: 04/28/19 19:03 Dose: 4 mg Documented by: TAMRA Vital Signs Vital signs: Vital Signs - 8 hr 04/28/19 14:27 04/28/19 16:15 04/28/19 16:45 Temperature 97.7 F Pulse Rate 95 H 99 H Respiratory Rate 28 H 25 H Blood Pressure [Left Arm] 120/64 111/63 Pulse Oximetry 97 99 04/28/19 17:00 Temperature Pulse Rate 98 H Respiratory Rate 31 H Blood Pressure [Left Arm] 106/56 L Pulse Oximetry 98 MDM - Abdominal Pain <LEDY Ceballos - Last Filed: 04/28/19 21:12> Medical Records Attestation: I reviewed the patient's medical records. Lab Data Attestation: I reviewed the patient's lab results. Result diagrams: 04/28/19 15:12 04/28/19 15:12 Labs: Lab Results 04/28/19 04/28/19 04/28/19 Range/Units 15:12 15:12 15:12 WBC 17.9 H (4.5-11.0) X10^3/uL RBC 5.57 (4.5-5.9) X10^6/uL Hgb 16.8 (13.5-17.5) g/dL Hct 50.4 (41-53) % MCV 90.5 (80-100) fL MCH 30.2 (26-34) PG MCHC 33.4 (30-36) % RDW 13.5 (11.6-14.8) % Plt Count 265 (150-400) X10^3/uL Neut % (Auto) 92.7 H (50-75) % Lymph % (Auto) 2.0 L (25-40) % [place] % (Auto) 4.9 (3-14) % Eos % (Auto) 0.3 L (2-4) % Baso % (Auto) 0.1 (0-2) % Neut # (Auto) 65856 H (5587-9267) /uL Lymph # (Auto) 300 L (1652-6669) /uL [place] # (Auto) 900 (0-900) /uL Eos # (Auto) 100 (0-450) /uL Baso # (Auto) 0 (0-100) /uL Sodium 142 (137-145) mmol/L Potassium 4.6 (3.4-5.1) mmol/L Chloride 103 (98-107) mmol/L Carbon Dioxide 21 L (22-32) mmol/L BUN 12 (9-20) mg/dL Creatinine 1.30 H (0.66-1.25) mg/dL Estimated GFR 55.6 L (>60) mL/min BUN/Creatinine Ratio 9.2 (6-22) Glucose 186 H (80-110) mg/dL Lactate (0.7-2.1) mmol/L Calcium 10.3 H (8.4-10.2) mg/dL Total Bilirubin 1.0 (0.2-1.3) mg/dL AST 35 (17-59) IU/L ALT 25 (<50) IU/L Alkaline Phosphatase 104 (38-126) U/L Total Protein 9.0 H (6.3-8.2) g/dL Albumin 5.6 H (3.5-5.0) g/dL Globulin 3.4 (1.7-4.1) g/dL Albumin/Globulin Ratio 1.6 (1.0-2.8) Lipase 1115 H (23-300) U/L Procalcitonin 85.12 H (<0.5) ng/mL 04/28/19 04/28/19 Range/Units 15:12 17:35 WBC (4.5-11.0) X10^3/uL RBC (4.5-5.9) X10^6/uL Hgb (13.5-17.5) g/dL Hct (41-53) % MCV (80-100) fL MCH (26-34) PG MCHC (30-36) % RDW (11.6-14.8) % Plt Count (150-400) X10^3/uL Neut % (Auto) (50-75) % Lymph % (Auto) (25-40) % [place] % (Auto) (3-14) % Eos % (Auto) (2-4) % Baso % (Auto) (0-2) % Neut # (Auto) (1954-6719) /uL Lymph # (Auto) (1894-4536) /uL [place] # (Auto) (0-900) /uL Eos # (Auto) (0-450) /uL Baso # (Auto) (0-100) /uL Sodium (137-145) mmol/L Potassium (3.4-5.1) mmol/L Chloride (98-107) mmol/L Carbon Dioxide (22-32) mmol/L BUN (9-20) mg/dL Creatinine (0.66-1.25) mg/dL Estimated GFR (>60) mL/min BUN/Creatinine Ratio (6-22) Glucose (80-110) mg/dL Lactate 4.7 H* 1.8 (0.7-2.1) mmol/L Calcium (8.4-10.2) mg/dL Total Bilirubin (0.2-1.3) mg/dL AST (17-59) IU/L ALT (<50) IU/L Alkaline Phosphatase (38-126) U/L Total Protein (6.3-8.2) g/dL Albumin (3.5-5.0) g/dL Globulin (1.7-4.1) g/dL Albumin/Globulin Ratio (1.0-2.8) Lipase (23-300) U/L Procalcitonin (<0.5) ng/mL Imaging Data US - abdomen: Radiologist's Impression: [address] [address] Ultrasound Report Signed Patient: Jann Diehl CMR#: [id number] : 5Acct:[id number] Age/Sex: 64 / MDate of Service: 04/28/19 Loc: ED Accession Number: [id number] Procedure: US abdomen limited Ordering Provider: Jossie Malave PROCEDURE: US ABDOMEN LIMITED INDICATIONS: RUQ, ELEV LIPASE, R/O GALLSTONES TECHNIQUE: Real-time focused scanning was performed of the abdomen, with image documentation. COMPARISON: [facility], US, ABDOMEN COMPLETE, 03/14/2017, 12:04. [facility], CT, CT ABDOMEN PELVIS W CON, 02/12/2019, 22:59. [facility], CT, CT ABDOMEN PELVIS W CON, 04/28/2019, 15:35. FINDINGS: The gallbladder is prominent in size. No findings of gallstones or sludge are seen. The gallbladder wall is not thickened, measuring 3 mm or less. No specific pericholecystic fluid is seen. The sonographic Gonzalez sign is negative. The complex is mildly dilated at 8 mm. Tenderness is noted with scanning over the common bile duct. The liver is normal in size and demonstrates no focal lesions. The pancreas demonstrates no significant abnormality. IMPRESSION: Distended gallbladder, without stones or other abnormality seen by ultrasound. Mild dilatation of the common bile duct can be seen, measuring 9 mm. There is tenderness noted with scanning over the common bile duct. On these images, no stones are seen. As clinically appropriate, an MRCP could be considered for further evaluation (assuming that there is no contraindication to MRI). Dictated by: Arpit Esparza M.D. on 04/28/2019 at 18:04 Approved by: Arpit Esparza M.D. on 04/28/2019 at 18:06 CT scan - abdomen/pelvis: Radiologist's Impression: [address] [place] [id number] Scan Report Signed Patient: Jann Diehl CMR#: [id number] : 5Acct:[id number] Age/Sex: 64 / MDate of Service: 04/28/19 Loc: ED Accession Number: [id number] Procedure: CT abdomen pelvis w con Ordering Provider: Jossie Malave PROCEDURE: CT ABDOMEN PELVIS W CON INDICATIONS: Severe diffuse abdominal pain, h/o pacreatitis TECHNIQUE: After the administration of intravenous contrast, 5 mm thick sections acquired from the diaphragm to the symphysis. 5 mm coronal and sagittal reformats were acquired. For radiation dose reduction, the following was used: automated exposure control, adjustment of mA and/or kV according to patient size. COMPARISON: [facility], CT, CT ABDOMEN PELVIS W CON, 02/12/2019, 22:59. FINDINGS: Image quality: Excellent. ABDOMEN: Lung bases: Lung bases are clear. Heart size is normal. Solid organs: Liver is normal in size and enhancement. Gallbladder is unremarkable. Biliary system is non dilated. Pancreas enhances normally. Spleen is normal in size and enhancement. No adrenal nodules. Kidneys demonstrate normal size and enhancement, without hydronephrosis. Peritoneum and bowel: Bowel loops demonstrate normal wall thickness and caliber. The appendix is thin walled and gas filled. There is predominantly liquid stool throughout the colon. No free fluid or air. Nodes and vessels: No retroperitoneal or mesenteric adenopathy by size criteria. Aorta and inferior vena cava are normal in size. There are scattered atheromatous calcifications throughout the aorta and iliac arteries bilaterally. Miscellaneous: No ventral hernias. PELVIS: Genitourinary: Bladder wall thickness is normal. Miscellaneous: No inguinal hernias or adenopathy. Bones: No suspicious bony lesions. No vertebral body compression fractures. IMPRESSION: 1. No acute intra-abdominal findings. Normal appendix. 2. No findings to suggest acute pancreatitis or the sequela of prior pancreatitis. 3. Liquid stool throughout the colon. Dictated by: Karolyn Mohr M.D. on 04/28/2019 at 15:58 Approved by: Karolyn Mohr M.D. on 04/28/2019 at 16:03 [facility] Narrative Medical decision making narrative: 64-year-old male with history of pancreatitis presenting to the emergency department for onset of vomiting despite Zofran and Phenergan with abdominal pain. Patient appears to have sepsis due to elevated WBC, elevated lactate, tachycardia, and low temp. Sepsis fluid protocol was administered. I suspect the source of infection is most likely pancreatitis due to elevated lipase and lack of other suspicious findings such as gallstone, cough, chest pain, or dysuria. Patient was given a dose of Zosyn to cover for abdominal etiology. He was admitted to . Patient remained hemodynamically stable throughout the emergency department stay. Pain was controlled with Dilaudid, patient did not vomit since he was room with these is Zofran. Less concern for necrotizing pancreatitis, small-bowel obstruction, gallstones, or psychotic bowel due to negative scans. Patient agrees to admission. <Adi Dietrich, DO - Last Filed: 04/28/19 21:15> Lab Data Labs: Lab Results 04/28/19 04/28/19 04/28/19 Range/Units 15:12 15:12 15:12 WBC 17.9 H (4.5-11.0) X10^3/uL RBC 5.57 (4.5-5.9) X10^6/uL Hgb 16.8 (13.5-17.5) g/dL Hct 50.4 (41-53) % MCV 90.5 (80-100) fL MCH 30.2 (26-34) PG MCHC 33.4 (30-36) % RDW 13.5 (11.6-14.8) % Plt Count 265 (150-400) X10^3/uL Neut % (Auto) 92.7 H (50-75) % Lymph % (Auto) 2.0 L (25-40) % [place] % (Auto) 4.9 (3-14) % Eos % (Auto) 0.3 L (2-4) % Baso % (Auto) 0.1 (0-2) % Neut # (Auto) 33830 H (7654-6603) /uL Lymph # (Auto) 300 L (9223-5167) /uL [place] # (Auto) 900 (0-900) /uL Eos # (Auto) 100 (0-450) /uL Baso # (Auto) 0 (0-100) /uL Sodium 142 (137-145) mmol/L Potassium 4.6 (3.4-5.1) mmol/L Chloride 103 (98-107) mmol/L Carbon Dioxide 21 L (22-32) mmol/L BUN 12 (9-20) mg/dL Creatinine 1.30 H (0.66-1.25) mg/dL Estimated GFR 55.6 L (>60) mL/min BUN/Creatinine Ratio 9.2 (6-22) Glucose 186 H (80-110) mg/dL Lactate (0.7-2.1) mmol/L Calcium 10.3 H (8.4-10.2) mg/dL Total Bilirubin 1.0 (0.2-1.3) mg/dL AST 35 (17-59) IU/L ALT 25 (<50) IU/L Alkaline Phosphatase 104 (38-126) U/L Total Protein 9.0 H (6.3-8.2) g/dL Albumin 5.6 H (3.5-5.0) g/dL Globulin 3.4 (1.7-4.1) g/dL Albumin/Globulin Ratio 1.6 (1.0-2.8) Lipase 1115 H (23-300) U/L Procalcitonin 85.12 H (<0.5) ng/mL 04/28/19 04/28/19 Range/Units 15:12 17:35 WBC (4.5-11.0) X10^3/uL RBC (4.5-5.9) X10^6/uL Hgb (13.5-17.5) g/dL Hct (41-53) % MCV (80-100) fL MCH (26-34) PG MCHC (30-36) % RDW (11.6-14.8) % Plt Count (150-400) X10^3/uL Neut % (Auto) (50-75) % Lymph % (Auto) (25-40) % [place] % (Auto) (3-14) % Eos % (Auto) (2-4) % Baso % (Auto) (0-2) % Neut # (Auto) (1024-2476) /uL Lymph # (Auto) (5343-2919) /uL [place] # (Auto) (0-900) /uL Eos # (Auto) (0-450) /uL Baso # (Auto) (0-100) /uL Sodium (137-145) mmol/L Potassium (3.4-5.1) mmol/L Chloride (98-107) mmol/L Carbon Dioxide (22-32) mmol/L BUN (9-20) mg/dL Creatinine (0.66-1.25) mg/dL Estimated GFR (>60) mL/min BUN/Creatinine Ratio (6-22) Glucose (80-110) mg/dL Lactate 4.7 H* 1.8 (0.7-2.1) mmol/L Calcium (8.4-10.2) mg/dL Total Bilirubin (0.2-1.3) mg/dL AST (17-59) IU/L ALT (<50) IU/L Alkaline Phosphatase (38-126) U/L Total Protein (6.3-8.2) g/dL Albumin (3.5-5.0) g/dL Globulin (1.7-4.1) g/dL Albumin/Globulin Ratio (1.0-2.8) Lipase (23-300) U/L Procalcitonin (<0.5) ng/mL Discharge Plan Departure Patient Disposition: Admitted As Inpatient Clinical Impression: Acute pancreatitis Qualifiers: Pancreatitis type: other Acute pancreatitis complication: unspecified Qualified Code(s): K85.80 - Other acute pancreatitis without necrosis or infection Sepsis Qualifiers: Sepsis type: sepsis due to unspecified organism Sepsis acute organ dysfunction status: unspecified Qualified Code(s): A41.9 - Sepsis, unspecified organism Discharge Date/Time: 04/28/19 19:30 Admit Date/Time: 04/28/19 19:34 Admit Provider: Henry Lay <Adi Dietrich, DO - Last Filed: 04/28/19 21:15> Sign Out Provider Sign Out Attestation: Dr Dietrich Co-Sign Statement: I was available for consultation during this patient's emergency department visit. This chart is signed by myself for administrative purposes only. I did not have direct contact with this patient during this visit. They were seen independently by the APC.
[2019-04-28 15:24] LABS: Add Manual Diff / Slide Review NO; Basophils Absolute Auto 0 /uL (0-100); Basophils Percent Auto 0.1 % (0-2); Eosinophils Absolute Auto 100 /uL (0-450); Eosinophils Percent Auto 0.3 % (2-4); Hematocrit 50.4 % (41-53); Hemoglobin 16.8 g/dL (13.5-17.5); Lymphocytes Absolute Auto 300 /uL (1100-4500); Mean Corpuscular HGB Conc 33.4 % (30-36); Mean Corpuscular Hemoglobin 30.2 PG (26-34); Mean Corpuscular Volume 90.5 fL (80-100); Monocytes Absolute Auto 900 /uL (0-900); Monocytes Percent Auto 4.9 % (3-14); Neutrophils Absolute Auto 16600 /uL (1500-7000); Neutrophils Percent Auto 92.7 % (50-75); Platelet Count 265 X10^3/uL (150-400); Red Blood Cell Count 5.57 X10^6/uL (4.5-5.9); Red Cell Distribution Width 13.5 % (11.6-14.8); White Blood Cell Count 17.9 X10^3/uL (4.5-11.0)
[2019-04-28] MEDS: methylPREDNISolone 125 MG/2 ML VIAL IV (15:26)
[2019-04-28] MEDS: diphenhydrAMINE 50 MG/ML VIAL 25 MG IV (15:27)
[2019-04-28 15:31] LABS: Alanine Aminotransferase 25 IU/L (<50); Albumin 5.6 g/dL (3.5-5.0); Albumin Globulin Ratio 1.6 (1.0-2.8); Alkaline Phosphatase 104 U/L (38-126); Aspartate Aminotransferase 35 IU/L (17-59); BUN Creatinine Ratio 9.2 (6-22); Blood Urea Nitrogen 12 mg/dL (9-20); Calcium 10.3 mg/dL (8.4-10.2); Carbon Dioxide 21 mmol/L (22-32); Chloride 103 mmol/L (98-107); Estimated Glomerular Filt Rate 55.6 mL/min (>60); Globulin 3.4 g/dL (1.7-4.1); Glucose 186 mg/dL (80-110); HEMOLYSIS < 15 (0-50); Lipase 1115 U/L (23-300); Potassium 4.6 mmol/L (3.4-5.1); Sodium 142 mmol/L (137-145)
[2019-04-28 15:33] LABS: Lactate (Lactic Acid) 4.7 mmol/L (0.7-2.1)
--- NOTE | 2019-04-28 15:39 | PC.NURSE ---
Pt pre medicated for CT.
[2019-04-28 15:48] LABS: Procalcitonin 85.12 ng/mL (<0.5)
[2019-04-28] MEDS: SODIUM CHLORIDE 0.9% 689.46 ML IV (16:01)
[2019-04-28] MEDS: PIPERACILLIN-TAZO 4.5 GM/100 ML FROZ.PIGGY IV (16:02)
[2019-04-28 16:15] VITALS: BP 120/64; PULSE 95; RESP 28; O2SAT 97
--- NOTE | 2019-04-28 16:36 | DI.US.S_ITS ---
PROCEDURE: US ABDOMEN LIMITED INDICATIONS: RUQ, ELEV LIPASE, R/O GALLSTONES TECHNIQUE: Real-time focused scanning was performed of the abdomen, with image documentation. COMPARISON: [facility], US, ABDOMEN COMPLETE, 03/14/2017, 12:04. [facility], CT, CT ABDOMEN PELVIS W CON, 02/12/2019, 22:59. [facility], CT, CT ABDOMEN PELVIS W CON, 04/28/2019, 15:35. FINDINGS: The gallbladder is prominent in size. No findings of gallstones or sludge are seen. The gallbladder wall is not thickened, measuring 3 mm or less. No specific pericholecystic fluid is seen. The sonographic Gonzalez sign is negative. The complex is mildly dilated at 8 mm. Tenderness is noted with scanning over the common bile duct. The liver is normal in size and demonstrates no focal lesions. The pancreas demonstrates no significant abnormality. IMPRESSION: Distended gallbladder, without stones or other abnormality seen by ultrasound. Mild dilatation of the common bile duct can be seen, measuring 9 mm. There is tenderness noted with scanning over the common bile duct. On these images, no stones are seen. As clinically appropriate, an MRCP could be considered for further evaluation (assuming that there is no contraindication to MRI). Dictated by: Arpit Esparza M.D. on 04/28/2019 at 18:04 Approved by: Arpit Esparza M.D. on 04/28/2019 at 18:06
[2019-04-28 16:45] VITALS: BP 111/63; PULSE 99; RESP 25; O2SAT 99
[2019-04-28 17:00] VITALS: BP 106/56; PULSE 98; RESP 31; O2SAT 98
[2019-04-28 17:17] LABS: Reflexed Lactate in 2 Hours Y
--- NOTE | 2019-04-28 17:36 | PC.NURSE ---
1000 mL subtracted from sepsis bolus d/t pt receiving initial 1000 mL bolus prior to sepsis fluids being ordered. Pt did receive a total of 2068 mL of NS bolus.
[2019-04-28 17:52] LABS: Lactate 2HR (Lactic Acid Rflx) 1.8 mmol/L (0.7-2.1)
[2019-04-28 19:45] VITALS: BP 113/63; PULSE 104; RESP 18; TEMP 37; O2SAT 95
[2019-04-28] MEDS: LACTATED RINGERS 1,000 ML 250 ML IV (20:03)
[2019-04-28 20:10] VITALS: BMI 21.8
[2019-04-28 20:14] LABS: Lipase 186 U/L (23-300)
--- NOTE | 2019-04-28 21:15 | PC.NURSE ---
Addendum entered by Zoë Deutsch R.N. 04/28/19 21:32: pt adheres to a strict low fat diet at base line and stated he will call in his meals when that time comes. pt also stating that he takes an additional PO zofran before each meal as well. I let pt know that he has zofran ordered and won't have to worry about meals for the time being. Original Note: Arrived to room at 1935. pt 1PA to bed and stated he felt weak and a little lightheaded. pt HR low 100's, 02 95% RA. pt's significant other in room, Crystal, and helps with providing some information. pt AO and receptive to care. 2 PIV's, 1 in Left FA infusing LR at 250ml/hr, Right FA assessed and tolerating well. Last BM was today at 1430 and loose, but pt reports that is typical for him. pt also reporting N/V with last emisis approximately at 1430 of mostly bile. Still reporting nausea but no need to vomit. Lungs clear and diminished. Skin in good condition (missing nail on left great toe but healed). DM type two that uses sliding scale to manage blood glucose. HS CBG was 164 and no coverage provided per protocol. pt NPO and using lemon swabs. pt aware that we need a UA and clean urinal at bedside. pt has been a patient here before and oriented to room.
[2019-04-28] MEDS: PIPERACILLIN-TAZO 3.375 GM/50 ML FROZ.PIGGY IV (21:27)
[2019-04-28] MEDS: DABIGATRAN 75 MG CAPSULE 150 MG PO (21:28)
--- NOTE | 2019-04-28 21:28 | PC.NURSE ---
Spoke with Dr. Lay. pt was asking for his daily lisinopril, Dr. Lay declines stating his BP has been too low. pt also asking for an HS Benadryl, Dr. Lay okayed 50mg HS for insomnia (order was entered in by this nurse). pt asked for ice chips and sips of water; Dr. Lay declined and state pt is to have as much bowel rest as possible and is only allowed sips of water with the PO medications he has prescribed. I relayed all this information to the patient, patient agrees on plan and no questions remain.
[2019-04-28] MEDS: METOPROLOL IR 25 MG TABLET 12.5 MG PO (21:29)
[2019-04-28] MEDS: PANTOPRAZOLE 40 MG TABLET PO (21:29)
[2019-04-28] MEDS: diphenhydrAMINE 25 MG TABLET 50 MG PO (22:15)
[2019-04-28 23:49] VITALS: BP 94/60; PULSE 75; RESP 18; TEMP 36.8; O2SAT 96
[2019-04-29] MEDS: LACTATED RINGERS 1,000 ML 150 ML IV ×3 (00:23→15:57)
[2019-04-29] MEDS: ONDANSETRON 4 MG/2 ML INJ IV (03:41)
[2019-04-29 04:24] VITALS: BP 91/61; PULSE 71; RESP 18; TEMP 36.6; O2SAT 97
[2019-04-29 05:03] LABS: Add Manual Diff / Slide Review NO; Basophils Absolute Auto 100 /uL (0-100); Basophils Percent Auto 0.5 % (0-2); Eosinophils Absolute Auto 0 /uL (0-450); Eosinophils Percent Auto 0.1 % (2-4); Hematocrit 39.8 % (41-53); Hemoglobin 13.3 g/dL (13.5-17.5); Lymphocytes Absolute Auto 500 /uL (1100-4500); Lymphocytes Percent Auto 4.1 % (25-40); Mean Corpuscular HGB Conc 33.4 % (30-36); Mean Corpuscular Volume 89.9 fL (80-100); Monocytes Absolute Auto 400 /uL (0-900); Monocytes Percent Auto 3.9 % (3-14); Neutrophils Absolute Auto 10400 /uL (1500-7000); Neutrophils Percent Auto 91.4 % (50-75); Platelet Count 195 X10^3/uL (150-400); Red Blood Cell Count 4.42 X10^6/uL (4.5-5.9); Red Cell Distribution Width 13.3 % (11.6-14.8); White Blood Cell Count 11.3 X10^3/uL (4.5-11.0)
[2019-04-29 05:12] LABS: Alanine Aminotransferase 18 IU/L (<50); Albumin 3.9 g/dL (3.5-5.0); Albumin Globulin Ratio 1.4 (1.0-2.8); Alkaline Phosphatase 51 U/L (38-126); Aspartate Aminotransferase 23 IU/L (17-59); Bilirubin Total 0.6 mg/dL (0.2-1.3); Blood Urea Nitrogen 18 mg/dL (9-20); Calcium 8.7 mg/dL (8.4-10.2); Carbon Dioxide 24 mmol/L (22-32); Chloride 106 mmol/L (98-107); Estimated Glomerular Filt Rate > 60.0 mL/min (>60); Globulin 2.7 g/dL (1.7-4.1); Glucose 132 mg/dL (80-110); HEMOLYSIS < 15 (0-50); Lipase 23 U/L (23-300); Potassium 4.4 mmol/L (3.4-5.1); Sodium 139 mmol/L (137-145); Total Protein 6.6 g/dL (6.3-8.2)
[2019-04-29] MEDS: PIPERACILLIN-TAZO 3.375 GM/50 ML FROZ.PIGGY IV ×3 (06:15→21:22)
[2019-04-29] MEDS: HYDROMORPHONE 1 MG INJ IV ×3 (06:17→20:13)
--- NOTE | 2019-04-29 07:07 | PC.NURSE ---
Complains of consistent nausea throughout shift. Dr. Lay contacted early in shift to ask for promethazine as pt says this helps him at home. Dr. Lay said no, when asked if he could get a different antiemetic Dr. Lay said no and to stick with Zofran. No emesis. Abdominal pain rated 6 out of 10; Dilaudid 1mg IVP only brings him down to about a 5 out of 10 UA sent NS@150mL/hr as ordered NPO
[2019-04-29 07:53] VITALS: BP 115/72; PULSE 70; RESP 16; TEMP 37; O2SAT 99
[2019-04-29] MEDS: PANTOPRAZOLE 40 MG TABLET PO ×2 (08:04→21:22)
[2019-04-29] MEDS: METOPROLOL IR 25 MG TABLET 12.5 MG PO ×2 (08:04→21:22)
[2019-04-29] MEDS: CLOPIDOGREL 75 MG TABLET PO (08:04)
[2019-04-29] MEDS: DABIGATRAN 75 MG CAPSULE 150 MG PO ×2 (08:05→21:22)
[2019-04-29] MEDS: OXYCODONE IR 5 MG TABLET PO ×3 (09:23→18:03)
[2019-04-29] MEDS: ONDANSETRON 4 MG ODT SL ×4 (09:23→22:11)
--- NOTE | 2019-04-29 10:23 | PC.NURSE ---
Assess- Patient is A&Ox3, he states that he is nauseous and having pain. Given po zofran and po oxycodone and helpful. Patient is now going to be on clear liquids as well, into see patient and gave verbal orders for all these. BT hypoactive but present in r.lower quadrant. He is drinking tea and tolerating this well. Girlfriend and friend visiting now. Patients pain level seems to be doing better.
--- NOTE | 2019-04-29 11:34 | DI.MRI.S_ITS ---
PROCEDURE: MR ABDOMEN WO CON INDICATIONS: MRCP. pancreatitis TECHNIQUE: Coronal HASTE through the abdomen, axial 2-D FLASH in- and [id number], and breath-hold T2 FSE with fat saturation through the biliary system and pancreas. Oblique coronal and axial thin-slice HASTE, radial thick-slab HASTE centered on the extrahepatic bile ducts. Intravenous secretin: Not requested. COMPARISON: [facility], CT, CT ABDOMEN PELVIS W CON, 04/28/2019, 15:35. [facility], CT, CT ABDOMEN PELVIS W CON, 02/12/2019, 22:59. [facility], CR, XR KUB, 03/28/2018, 13:00. [facility], CT, CT ABDOMEN PELVIS W CON, 03/24/2018, 1:19. [facility], US, US ABDOMEN LIMITED, 04/28/2019, 17:33. FINDINGS: Image quality: Excellent. Pancreas and biliary system: Intra- and extra-hepatic biliary ducts are non dilated. Pancreas is normal in morphology, without adjacent soft tissue edema. Pancreatic duct is normal in caliber, without developmental anomalies. Gallbladder is free of calculus or identifiable sludge. Other solid organs: Liver is normal in size. Spleen is normal in size. No adrenal nodules. Both kidneys are normal in size, without hydronephrosis. Nodes and vessels: No retroperitoneal or mesenteric adenopathy by size criteria. Aorta and inferior vena cava are normal in size. Bowel and peritoneum: Unenhanced bowel loops are normal in caliber. No free fluid. Lung bases: No basal pleural effusions. Heart size is normal. Bones and soft tissues: No ventral hernias. Bone marrow is of normal overall signal. IMPRESSION: Source of pancreatitis is not seen. No pancreatic mass or ductal distention is found. No gallstones or sludge within the gallbladder lumen is present. Dictated by: Jacobo De Anda M.D. on 04/29/2019 at 13:12 Approved by: Jacobo De Anda M.D. on 04/29/2019 at 13:14
[2019-04-29 12:59] VITALS: BP 114/63; PULSE 67; RESP 16; TEMP 36.7; O2SAT 98
--- NOTE | 2019-04-29 13:14 | P.HP_ITS ---
History of Present Illness History of Present Illness Date Patient Seen: 04/29/19 Time Patient Seen: 09:14 Chief complaint: something is wrong with pancreas Narrative: Abdominal pain Patient with a diagnosis pancreatitis. Patient began to have some abdominal discomfort and nausea Sunday night he had some crackers during the day that with a typically does not have but only had a few. During the course of the night he began to have increasing abdominal pain increased nausea and then on Sunday yesterday had fair amount of vomiting of recurrent vomiting as well as increasing abdominal pain. No changes in bowel or bladder. No dysuria pyuria hematuria melena hematochezia No fever chills. Patient has history of chronic pancreatitis with recurrent acute pancreatitis. Recently here for abdominal pain and diarrhea. He has had no diarrhea. He is on a fairly strict diet that he monitors himself and has strict diarrhea that report records daily about his intake carbs protein and insulin dose. Patient is insulin-dependent diabetic monitors blood sugar refer fairly frequently and has reasonably good control. Upper tell Sunday he felt reasonably fine. As stated he was recently here with diarrhea evaluation was negative. He did have flare-up of his pancreatitis symptoms which are typically nausea and abdominal pain. Patient currently has Zofran for nausea. Oxycodone for abdominal pain which she uses on a regular basis. 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) Paroxysmal atrial fibrillation (Chronic) Peripheral vascular disease (Chronic) Psoriasis (Chronic) Surgical History H/O exploratory laparotomy (Acute) Family & Social History Social History: household members none Prior Living Arrangements House Safety & Behavioral: Feels Safe in Current Yes Environment Been Physically Hurt or No Threatened By a Person Suicidal Ideation Description None Suicide Plan Description No Plan Tobacco & Substance use: Smoking Status Former smoker alcohol intake frequency 0-2 drinks per day Substance Use Type marijuana Meds Home Medications and Allergies Home Medications Medication Instructions Recorded Confirmed Type clopidogrel 75 mg PO DAILY #0 04/15/08 04/28/19 History diclofenac sodium [Voltaren] 1 crys TOPICAL QID PRN #0 03/14/17 04/28/19 History Creon 2 cap PO QID 08/17/17 04/28/19 History insulin aspart U-100 [Novolog 3 unit SUB-Q TID 08/17/17 04/28/19 History Flexpen U-100 Insulin] omeprazole 40 mg PO BID 08/17/17 04/28/19 History acetaminophen 325 mg PO Q4HP PRN 09/25/17 04/28/19 History cholecalciferol (vitamin D3) 3,000 unit PO DAILY 09/25/17 04/28/19 History [Vitamin D3] dabigatran etexilate 150 mg PO BID 03/24/18 04/28/19 History oxycodone 5 mg PO Q4HR PRN #20 tab 03/31/18 04/28/19 Rx fluticasone propionate 50 mcg INTRANASAL DAILY #0 02/13/19 04/28/19 History insulin glargine [Lantus Solostar 10 units SUBCUT DAILY #0 02/13/19 04/28/19 History U-100 Insulin] ondansetron 4 mg PO Q6H PRN 02/13/19 04/28/19 History pravastatin 80 mg PO BEDTIME #0 02/13/19 04/28/19 History ondansetron 8 mg disintegrating 8 mg PO Q8H PRN #30 tab 03/03/19 04/28/19 Rx tablet lisinopril 2.5 mg PO DAILY 04/28/19 04/28/19 History methylphenidate HCl 20 mg PO TID 04/28/19 04/28/19 History metoprolol tartrate 12.5 mg PO BID 04/28/19 04/28/19 History sildenafil 50 mg PO DAILY PRN MDD 50 mg 04/28/19 04/28/19 History Allergies Allergy/AdvReac Type Severity Reaction Status Date / Time Iodine and Iodide Containing Allergy Severe Anaphylaxis Verified 04/28/19 14:16 Produc [IODINE AND IODIDE CONTAINING PRODUC] Sulfa (Sulfonamide Allergy Severe Anaphylaxis Verified 04/28/19 14:16 Antibiotics) [SULFA (SULFONAMIDE ANTIBIOTICS)] Review of Systems Review of Systems ROS: Yes All systems reviewed with the patient and are negative except as otherwise documented Exam Vital Signs (past 8 hours): - 04/29/19 07:53 Temperature 98.6 F Pulse Rate 70 Respiratory Rate 16 Blood Pressure 115/72 Pulse Oximetry 99 Oxygen Delivery Method Room Air Oxygen Flow Rate 0 Narrative Exam Narrative: Patient examined hospital bed having been in the hospital overnight. Resting quietly appears in no distress conversant talkative really does not appear any different and is normal. Gen.: Skin: Warm well perfused. No prominent lesions. Nonicteric. HEENT: PERRL., normal EOM, external ears canals TMs normal, nasal mucosa normal and midline septum, oropharynx without lesions. Neck: Trachea midline. Thyroid nontender and not enlarged. Carotids without bruits. No lymphadenopathy Back: No obvious deformity or tenderness. Chest: Clear to P&A. Symmetric. CV: RRR no murmur or gallop. No JVD. Abdomen: N abdominal exam is flat. He has decreased bowel sounds. He has diffuse tenderness around the umbilicus as well as in the lower quadrants bilaterally. Very minimal mid epigastric abdominal tenderness. Neuro: Cranial nerves II through XII grossly intact. Sensory and motor exams intact. Gait normal. Mental status: Intact for screening Extremities: No cyanosis clubbing or edema Musculoskeletal: No gross deformities Lymphatics: Negative for lymphadenopathy, supraclavicular axillary or inguinal Objective Labs Result Diagrams: 04/29/19 04:55 04/29/19 04:55 Labs: Laboratory Results - last 24 hr 04/28/19 04/28/19 04/28/19 15:12 15:12 15:12 WBC 17.9 H RBC 5.57 Hgb 16.8 Hct 50.4 MCV 90.5 MCH 30.2 MCHC 33.4 RDW 13.5 Plt Count 265 Neut % (Auto) 92.7 H Lymph % (Auto) 2.0 L [place] % (Auto) 4.9 Eos % (Auto) 0.3 L Baso % (Auto) 0.1 Neut # (Auto) 76113 H Lymph # (Auto) 300 L [place] # (Auto) 900 Eos # (Auto) 100 Baso # (Auto) 0 Sodium 142 Potassium 4.6 Chloride 103 Carbon Dioxide 21 L BUN 12 Creatinine 1.30 H Estimated GFR 55.6 L BUN/Creatinine Ratio 9.2 Glucose 186 H Lactate Calcium 10.3 H Total Bilirubin 1.0 AST 35 ALT 25 Alkaline Phosphatase 104 Total Protein 9.0 H Albumin 5.6 H Globulin 3.4 Albumin/Globulin Ratio 1.6 Lipase 1115 H Procalcitonin 85.12 H 04/28/19 04/28/19 04/28/19 15:12 17:35 19:54 WBC RBC Hgb Hct MCV MCH MCHC RDW Plt Count Neut % (Auto) Lymph % (Auto) [place] % (Auto) Eos % (Auto) Baso % (Auto) Neut # (Auto) Lymph # (Auto) [place] # (Auto) Eos # (Auto) Baso # (Auto) Sodium Potassium Chloride Carbon Dioxide BUN Creatinine Estimated GFR BUN/Creatinine Ratio Glucose Lactate 4.7 H* 1.8 Calcium Total Bilirubin AST ALT Alkaline Phosphatase Total Protein Albumin Globulin Albumin/Globulin Ratio Lipase 186 D Procalcitonin 04/29/19 04/29/19 04:55 04:55 WBC 11.3 H RBC 4.42 L Hgb 13.3 L Hct 39.8 L MCV 89.9 MCH 30.0 MCHC 33.4 RDW 13.3 Plt Count 195 Neut % (Auto) 91.4 H Lymph % (Auto) 4.1 L [place] % (Auto) 3.9 Eos % (Auto) 0.1 L Baso % (Auto) 0.5 Neut # (Auto) 54733 H Lymph # (Auto) 500 L [place] # (Auto) 400 Eos # (Auto) 0 Baso # (Auto) 100 Sodium 139 Potassium 4.4 Chloride 106 Carbon Dioxide 24 BUN 18 Creatinine 0.90 Estimated GFR > 60.0 BUN/Creatinine Ratio 20.0 Glucose 132 H Lactate Calcium 8.7 Total Bilirubin 0.6 AST 23 ALT 18 Alkaline Phosphatase 51 D Total Protein 6.6 Albumin 3.9 Globulin 2.7 Albumin/Globulin Ratio 1.4 Lipase 23 D Procalcitonin Laboratory is noted. Initial white count was elevated. As is lactate. Elevated procalcitonin. Elevated lipase. All of which are consistent with acute pancreatitis. Since then his white count has normalized. His lactate is normalized. Patient been placed on antibiotics via the ER for the above CT of the abdomen abdominal ultrasound. Showed no evidence of pancreatitis no evidence of dilated bile ducts retained stone Assessment & Plan Assessment & Plan narrative: 1. Acute pancreatitis no obvious explanation for same. Abdominal workup in the ER was negative. Of patient does have chronic pancreatitis with with recurrent acute pancreatitis attacks cyst may be similar to what he has had in the past. However will get a further detail of his pancreatic duct with MRCP. Presumably this will be show some scar tissue but may well have a stricture and/or stone yet to be determined. 2. Insulin-dependent diabetes managed with diet and close monitor of his blood sugars. 3. Patient qualify for sepsis with elevated white blood cell count tachycardia elevated lactate and procalcitonin. 4. Essential hypertension stable. 5. History of atrial fibrillation. 6. Anticoagulation stable. Patient was placed on IV fluids IV antibiotics and the routine medications. Emergency peep pending the above further studies forthcoming no change medication otherwise anticipate at least 2 night stay presumably longer as symptoms improved
[2019-04-29] MEDS: LIPASE PROTEASE AMYLASE 2 EACH PO (13:50)
[2019-04-29 15:53] VITALS: BP 102/55; PULSE 73; RESP 18; TEMP 37.4; O2SAT 96
--- NOTE | 2019-04-29 16:15 | CM.DPC ---
Discharge Planning/Care Management DCP: assessment: case received, EMR reviewed. Met with pt and his girlfriend Yisel Markham: cell [phone]. Introduced self and role. Pt was found just coming out of the bathroom, pushing IV pole independently. Conversation was short as he had to return to bathroom and is currently in there retching. Staff aware. PT is a 64 year old male who admitted to care of PCP: Dr. Hammond. He also follows with the [facility] in [facility] but has not been there since Dr. Ochoa retired. He confirms he has been assisgned to another provider but cannot remember the name and has not yet seen him. Payer: [facility] Admission status: INPT: confirmed by [facility] ANIKET Gustafson. Pt is functionally independent at baseline. Drives. Full dx and POC is in process. Pt carries dx of chronic pancreatitis with recurrent bouts of acute pancreatitis. IDDM. DCP team will follow as POC unfolds to assist with d/c issues and options as they arise. CM Discharge Assessment Start: 04/29/19 16:10 Freq: Status: Active Protocol: Document 04/29/19 16:11 ITV (Rec: 04/29/19 16:14 ITV [id number]) Discharge Planning Assessment Advance Directives? Yes Advance Directives on File Yes History Provided By Patient,Significant Other, Medical Record Prior Living Arrangements House Comment has a pattern marker house mate Josue who lives in a small apt on lower level of home. Pt says he is very supportive Independent with ADL's Yes Is patient alert and oriented? Yes DME Already Rented / Owned Cane Comment has cane, does not currently use. Review Status In Process
[2019-04-29 20:05] VITALS: BP 135/55; PULSE 71; RESP 16; TEMP 37.6; O2SAT 99
[2019-04-29] MEDS: diphenhydrAMINE 25 MG TABLET 50 MG PO (21:21)
[2019-04-29 22:31] LABS: Campylobacter Not Detected (Not Detect); Clostridium difficile toxin AB Not Detected (Not Detect); Plesiomonsa shigelloides Not Detected (Not Detect); Salmonella Not Detected (Not Detect); Vibrio Not Detected (Not Detect); Vibrio cholerae Not Detected (Not Detect)
[2019-04-29 22:32] LABS: Adenovirus F 40/41 Not Detected (Not Detect); Astrovirus Not Detected (Not Detect); Cryptosporidium Not Detected (Not Detect); Cyclospora cayetanensis Not Detected (Not Detect); Entamoeba histolytica Not Detected (Not Detect); Enteroaggregative E.coli Not Detected (Not Detect); Enteropathogenic E.coli Not Detected (Not Detect); Enterotoxigenic E.coli It/st Not Detected (Not Detect); Giardia lamblia Not Detected (Not Detect); Norovirus GI/GII Not Detected (Not Detect); Rotavirus A Not Detected (Not Detect); Sapovirus Not Detected (Not Detect); Shiga-like toxin-prod E.coli Not Detected (Not Detect); Shigella/Enteroinvasive E.coli Not Detected (Not Detect); Yersinia enterocolitica Not Detected (Not Detect)
[2019-04-30] VITALS (7 sets, daily range): BP systolic 102–115; BP diastolic 64–70; PULSE 62–69; RESP 16–18; TEMP 36.5–36.9; O2SAT 95–99
[2019-04-30] MEDS: LACTATED RINGERS 1,000 ML 150 ML IV ×3 (00:13→14:06)
[2019-04-30] MEDS: HYDROMORPHONE 1 MG INJ IV ×2 (01:06→04:35)
[2019-04-30] MEDS: SODIUM CHLORIDE 0.9% FLUSH 10 ML IV ×3 (01:07→20:28)
[2019-04-30] MEDS: ONDANSETRON 4 MG ODT SL ×3 (01:39→13:49)
[2019-04-30] MEDS: PIPERACILLIN-TAZO 3.375 GM/50 ML FROZ.PIGGY IV (06:03)
--- NOTE | 2019-04-30 06:43 | PC.NURSE ---
Pt reports pain 3-5/10 at LUQ/epigastric. Pt reports IV dilaudid is most effective for controlling pain. Describes as sharp. Pt with no emesis overnight. Did have 3 episodes of emesis on evening shift. Pt states he always, everyday has nausea. Zofran helps to minimize the nausea but nothing takes it away entirely. Pt tolerating lemon quincy tea. Pt with watery brown diarrhea. Stool culture negative. Hx Afib, rate controlled. Continous IVF of LR at 150cc/hr. 2 PIVs. Pt with new pruritis developing around 0500. Appears red at areas of previous tele leads. Offered lotion for comfort which pt stated was helpful. Pt with chronic bilat feet neuropathy, wears own shoes to minimize discomfort. Friend Crystal at bedside, assisting with personal needs, ie lotion, asks for tea. BG ACHS. No labs ordered for this mornng.Monitor for effective pain control, nausea. Monitor for changes in pruritis.
[2019-04-30] MEDS: PANTOPRAZOLE 40 MG TABLET PO ×2 (08:31→22:08)
[2019-04-30] MEDS: METOPROLOL IR 25 MG TABLET 12.5 MG PO ×2 (08:32→22:07)
[2019-04-30] MEDS: OXYCODONE IR 5 MG TABLET PO ×3 (08:32→20:07)
[2019-04-30] MEDS: CLOPIDOGREL 75 MG TABLET PO (08:32)
--- NOTE | 2019-04-30 08:32 | P.PN_ITS ---
Subjective Subjective Date Patient Seen: 04/30/19 Time Patient Seen: 08:32 Interval history: Pancreatitis. Patient feeling somewhat better but minimally so. Currently have having increasing abdominal pain. Last time he vomited was yesterday afternoon at 3:00 a.m.. He still has nausea however. He feels that the vomiting was from the Jell-O and the chicken broth. Requesting certain fluids today. He was able to take T last night and this morning without any exacerbation. Still having frequent stools no melena no hematochezia. As stated is abdominal pain has improved somewhat overall. Feeling better but still not quite resolved symptoms. Exam Vital Signs (past 8 hours): - 04/30/19 04:00 Temperature 97.7 F Pulse Rate 63 Respiratory Rate 16 Blood Pressure 113/67 Pulse Oximetry 99 Oxygen Delivery Method Room Air Oxygen Flow Rate 0 Narrative Exam Narrative: Patient examined hospital bed resting quietly and he smiling and appears less depressed than yesterday. Lungs clear heart regular rhythm no murmur gallop. Abdominal exam still has minimal tenderness around periumbilical of left lower quadrant pain seem to have resolved. No midepigastric pain. Objective Labs Result Diagrams: 04/29/19 04:55 04/29/19 04:55 Labs: Laboratory Results - last 24 hr 04/29/19 16:29 Stl C. cayetanensis PCR Not detected Stool Rotavirus (PCR) Not detected Stool Adenovirus (PCR) Not detected Stool Astrovirus (PCR) Not detected Stool Cryptosporidium PCR Not detected Stl E.coli Shiga Tox PCR Not detected St Sh/Enteroin Ecoli PCR Not detected Stool E coli O157 PCR Not Reportable Stl Enterotoxigenic E PCR Not detected Stool EPEC (PCR) Not detected Stl E. histolytica PCR Not detected Stool Giardia Lamblia PCR Not detected Stool Sapovirus (PCR) Not detected Stl P. shigelloides PCR Not detected St Y.enterocolitica PCR Not detected Stool Vibrio (PCR) Not detected Stl Vibrio cholerae PCR Not detected Stl Enteroaggr Ecoli PCR Not detected Stl Norovirus GI/GII PCR Not detected Campylobacter (PCR) Not detected C. difficile Tox (PCR) Not detected Salmonella (PCR) Not detected Still examination all of which have been negative. Stool cultures pending. MRCP of his abdomen and pancreas was totally negative with no retained stones or dilated duct. Really no evidence of pancreatitis based on the MRI either Assessment & Plan Assessment & Plan narrative: 1. Pancreatitis symptomatic Laury better. He is developing a rash fine red rash consistent with a drug reaction. We will discontinue his antibiotics. 2. Nausea has improved but still present requests Compazine plus Ativan he takes Compazine for the nausea on Ativan for the jittery side effects he gets from the Compazine. The Zofran is helping nausea but not adequate. 3. Pain management is adequate per study fair amount of pain 4. Fluid intake and calorie management is still somewhat problematic as per usual. 5. He is improving but minimally so will continue as is decreases fluids 100 cc an hour. Get him out of bed and ambulate. Based on his past experience I suspe ct to be another 2 days
[2019-04-30] MEDS: DABIGATRAN 75 MG CAPSULE 150 MG PO ×2 (08:33→20:25)
[2019-04-30] MEDS: [UNRECOGNIZED DRUG - OTHER] 1 EACH PO ×3 (10:04→20:17)
--- NOTE | 2019-04-30 11:26 | PC.NURSE ---
Patient seems to be doing better today. He is drinking his electrolytes called Nuun that Dr. Hammond has ordered for patient. He brought this in his home medications, which also are all down in the pharmacy as of yesterday. Patient given one oxycodone and zofran earlier this morning. He refused his morning creotine as he was not eating.
[2019-04-30 11:32] LABS: Add Manual Diff / Slide Review NO; Basophils Absolute Auto 0 /uL (0-100); Basophils Percent Auto 0.3 % (0-2); Eosinophils Absolute Auto 100 /uL (0-450); Eosinophils Percent Auto 1.6 % (2-4); Hematocrit 38.5 % (41-53); Hemoglobin 13.2 g/dL (13.5-17.5); Lymphocytes Absolute Auto 1200 /uL (1100-4500); Mean Corpuscular HGB Conc 34.2 % (30-36); Mean Corpuscular Hemoglobin 30.6 PG (26-34); Mean Corpuscular Volume 89.6 fL (80-100); Monocytes Absolute Auto 600 /uL (0-900); Monocytes Percent Auto 7.3 % (3-14); Neutrophils Absolute Auto 6700 /uL (1500-7000); Neutrophils Percent Auto 76.8 % (50-75); Platelet Count 180 X10^3/uL (150-400); Red Cell Distribution Width 13.4 % (11.6-14.8); White Blood Cell Count 8.7 X10^3/uL (4.5-11.0)
[2019-04-30 11:37] LABS: BUN Creatinine Ratio 12.5 (6-22); Blood Urea Nitrogen 10 mg/dL (9-20); Calcium 8.7 mg/dL (8.4-10.2); Carbon Dioxide 26 mmol/L (22-32); Chloride 106 mmol/L (98-107); Estimated Glomerular Filt Rate > 60.0 mL/min (>60); Glucose 75 mg/dL (80-110); HEMOLYSIS 23 (0-50); Lipase 25 U/L (23-300); Potassium 3.5 mmol/L (3.4-5.1); Sodium 141 mmol/L (137-145)
[2019-04-30] MEDS: LIPASE PROTEASE AMYLASE 2 EACH PO ×2 (12:13→17:05)
[2019-04-30] MEDS: INSULIN ASPART 100 UNIT/ML INSULN PEN SUBCUT (17:03)
--- NOTE | 2019-04-30 17:29 | PC.NURSE ---
Addendum entered by Brandy Renner R.N. 04/30/19 21:57: Pt has slept most of this shift with S.O. at bedside also asleep in recliner. Both parties waken easily to voice. When asked, pt reports two diarrhea stools this shift and admits to 8/10 abdominal pain. Requests pain meds, compazine to treat nausea and ativan to counteract side effects of compazine (stating makes my skin crawl). Meds given and pt returns quickly to sleep. Positions self in bed. Pt sleeps with socks and shoes on d/t diabetic neuropathy. Pt reports pedal pulses are not palpable. Doppler obtained and able to locate pedal pulses BL successfully. Pt's shoes and shoes replaced per pt request. Took diet without complaint or difficulty. Original Note: Pt resting quietly in bed with eyes closed @ beginning of shift. No signs of distress or discomfort.
[2019-04-30] MEDS: PROCHLORPERAZINE 5 MG TABLET 10 MG PO (20:08)
[2019-04-30] MEDS: LORazepam 2 MG/ML INJ 0.5 MG IV (20:09)
[2019-04-30] MEDS: LACTATED RINGERS 1,000 ML 100 ML IV (22:13)
[2019-05-01] MEDS: OXYCODONE IR 5 MG TABLET PO (01:59)
[2019-05-01 02:00] VITALS: BP 100/65; PULSE 62
[2019-05-01] MEDS: PROCHLORPERAZINE 5 MG TABLET 10 MG PO (02:00)
[2019-05-01] MEDS: LORazepam 2 MG/ML INJ 0.5 MG IV (02:14)
[2019-05-01 02:23] VITALS: BP 100/65; PULSE 74; RESP 16; TEMP 36.6; O2SAT 92
[2019-05-01 05:46] VITALS: BP 102/61; PULSE 64; RESP 15; TEMP 36.6; O2SAT 94
[2019-05-01 08:00] VITALS: BP 107/62; PULSE 65; RESP 16; TEMP 36.9; O2SAT 98
--- NOTE | 2019-05-01 08:42 | PM.PN.1 ---
Subjective Subjective Date Patient Seen: 05/01/19 Time Patient Seen: 08:43 Interval history: Acute pancreatitis. Feeling better. No vomiting. Nausea persists. Had perhaps 3 stools during the night. Still having diarrhea. No melena no hematochezia. Normal urine output. Ambulated 1 chest a got a lightheaded. Tolerating cream of rice and Glucerna. Nausea is about his normal. Abdominal pain is about his normal. He questions whether not it is okay for him to go home now. He also questions whether not he is actually dehydrated. Very interested in receiving IV fluids/hydration/nutrition at home which may well prevent dehydration and readmission to hospital which is inevitable Exam Vital Signs (past 8 hours): - 05/01/19 02:00 05/01/19 02:23 05/01/19 05:46 Temperature 97.9 F 97.9 F Pulse Rate 62 74 64 Respiratory Rate 16 15 Blood Pressure 100/65 100/65 102/61 Pulse Oximetry 92 94 Oxygen Delivery Method Room Air Oxygen Flow Rate 0 Narrative Exam Narrative: Patient appears usual pleasant self resting quietly in his hospital bed. Appears in no distress. Lungs clear heart regular rhythm no murmur gallop. Abdominal exam no masses no rebound minimal tenderness around the wound like is much less than he has had in the past. Objective Labs Result Diagrams: 04/30/19 11:13 04/30/19 11:13 Labs: Laboratory Results - last 24 hr 04/30/19 04/30/19 04/30/19 11:13 11:13 11:13 WBC 8.7 RBC 4.30 L Hgb 13.2 L Hct 38.5 L MCV 89.6 MCH 30.6 MCHC 34.2 RDW 13.4 Plt Count 180 Neut % (Auto) 76.8 H Lymph % (Auto) 14.0 L Clayton % (Auto) 7.3 Eos % (Auto) 1.6 L Baso % (Auto) 0.3 Neut # (Auto) 6700 Lymph # (Auto) 1200 Clayton # (Auto) 600 Eos # (Auto) 100 Baso # (Auto) 0 Sodium 141 Potassium 3.5 Chloride 106 Carbon Dioxide 26 BUN 10 Creatinine 0.80 Estimated GFR > 60.0 BUN/Creatinine Ratio 12.5 Glucose 75 L Calcium 8.7 Lipase 25 labs from yesterday is reviewed BUN is normal creatinine is normal lipase is normal white count is normal blood sugar is 73 this time Assessment & Plan Assessment & Plan narrative: 1. Acute pancreatitis resolved. 2. Chronic pancreatitis symptoms persist which include nausea some abdominal pain vomiting and diarrhea. 3. Big challenge now is hydration. 4. Also being challenge is his nutrition up. Patient's weight has decreased significantly over the last several months. 5. Patient is close to being ready for discharge here. 6. May well be a candidate for home infusions of IV fluids/TPN. Have discussed with social service to pursue home infusions. Additionally will place a consult dietitian for recommendations for TPN if we decide to go that way. He does get up having home infusions will need to get a central line placed. 7. Patient is to get a bed more
[2019-05-01] MEDS: [UNRECOGNIZED DRUG - OTHER] 1 EACH PO (08:49)
[2019-05-01] MEDS: LIPASE PROTEASE AMYLASE 2 EACH PO ×2 (08:49→11:49)
[2019-05-01] MEDS: DABIGATRAN 75 MG CAPSULE 150 MG PO (08:57)
[2019-05-01] MEDS: METOPROLOL IR 25 MG TABLET 12.5 MG PO (08:57)
[2019-05-01] MEDS: CLOPIDOGREL 75 MG TABLET PO (08:57)
[2019-05-01] MEDS: ONDANSETRON 4 MG/2 ML INJ IV (08:57)
[2019-05-01] MEDS: PANTOPRAZOLE 40 MG TABLET PO (08:57)
[2019-05-01] MEDS: LACTATED RINGERS 1,000 ML 100 ML IV (08:59)
--- NOTE | 2019-05-01 10:30 | CM.DPC ---
Addendum entered by Catalina Pollack R.N. 05/01/19 14:10: Spoke to RIMA Turner at [facility]. Updated her that patient will be discharged today, but will need to follow up with bilingual account manager, coordinated care regarding future IV fluids. Let her know that all information regarding history was faxed. She confirmed that patient's primary provider at [facility] is Chava VILLAFANA. She mentioned that she will update nurses, he is on the [facility] team. Gave her his cell phone number so they can contact him with an appointment. Addendum entered by Catalina Pollack R.N. 05/01/19 13:17: Spoke to Dr. Hammond, and he is in agreement that patient needs to follow up with the [facility] coordinated care as well as dietary. Left RIMA Turner at [facility] a message regarding that. Will update floor nurse as well. Original Note: DCP Cont: Dr. Hammond stopped this family caseworker in the hospital and was inquiring if patient could go home on IV infusions, Normal Saline at 125/hour. He stated he is concerned that patient may need on going fluids to prevent re-hospitalization. Dr. Hammond was inquiring if [facility] would cover this. Confirmed that patient is not home bound, and drives, so he would not qualify for home health. Also, Dr. Hammond verbalized some nutritional concerns. He will be seeing bilingual account manager, Jennifer, today. Let Dr. Hammond know that this could take time to set up, and unclear if an answer would occur today. Called Alice Merida over at the [facility], and she mentioned that they need more information as to why he needs longer term fluids, and needs more known about the etiology of the disease. Let her know that this family caseworker would send over H&P, today's prog note. Discussed case with Jennifer in dietary, and she also noted that patient is taking in some nutrition, but having no swallowing issues. Asked Jennifer if she could call Dr. Hammond over at his office with findings. P: DCNiranjan will follow up with Alice at the [facility]. She did state that patient may need to be seen over at the [facility] and discuss intermediate fluids with the home care companion, before this can happen. Will also update Dr. Hammond today. Catalina Pollack RN/Private Duty Nurse
[2019-05-01] MEDS: INSULIN ASPART 100 UNIT/ML INSULN PEN SUBCUT (11:46)
[2019-05-01 12:00] VITALS: BP 107/62; PULSE 62; RESP 16; TEMP 36.5; O2SAT 100
[2019-05-01 12:01] VITALS: BMI 21.7
--- NOTE | 2019-05-01 12:09 | DIET.PN ---
Dietary Progress Note Assessment: 64y M c pancreatic insufficiency dx several years ago, pt reports having it for 20-30y, admitted for recurrent pancreatitis c N/V/D and abd px. Pt has been to ER 14 times in past 2y. Pt has severe acute on chronic PCM r/t accelerated unintentional wt loss related to this process. Pt is compliant with nutrition therapy, enzyme therapy, does not use etoh, gets regular physical activity, has well-controlled DM2. Pt has a log with food, meds, activity, pain scale that he has been tracking for years. Pt feels if he does not home cook all meals he can get off his enzyme dosage which spurs crippling N/V/D which dehydrates him and sends him to ER. Pt cannot maintain wt through meal-based dietary management and enzyme therapy alone at this point. Recc ONS vs. NG tube nutrition support. Pt high risk for fat soluble vitamin deficiency r/t EPI and steatorrhea, not currently taking supplements. Pt has Vit D deficiency per labs. Pt has fat malabsorption but no swallowing issues, has been able to tolerate protein shake of 12oz soy milk, 2 scoops Orgain protein powder, and 1/2 frozen banana providing 400kcal and 30g PRO. He was doing one daily until current admit. Also tolerating white fish, chicken breast, lentils, and quinoa. Limits animal meat to 4oz daily. 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 He enjoys hiking into the mountains to fish. Pt was hiking 12mi per day one year ago and is now hiking 5 miles several times per week. 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 HT: 177.8cm WT: 68.9kg (17% loss in 1y, 8.9% loss in 2 mo, severe) UBW: 85kg IBW: 75kg BMI: 21.8 Labs: BG 99 WNL, Vit D 20 L MNA: 13 Todd: 21 Nutrition Diagnosis: Severe Acute on Chronic PCM r/t chronic N/V/D secondary to pancreatic insufficiency aeb accelerating unintentional wt loss in past 1y (8.9% in last 2 mo, 17% in 1y, severe), system wide severe subcutaneous fat loss, pt regularly takes zofran and phenergan at home for N/V, despite pt diligently managing EPI. Interventions: 1. Because pt's diet is fat limited and he has DM2 which limits CHO, recc pt consume 2 of his homemade shakes as ONS daily to contribute 31% of calorie needs and 63% of PRO needs in addition to usual meal and snack intake to support wt gain and PCM. 2. Consider stand-alone lipase in addition to Creon to take when eating out meals as this seems to be biggest trigger. 3. Consider water miscible fat soluble vitamin supplement in addition to a good quality MVI. 4. Consider adding MCT oil to diet which does not require pancreatic enzymes for absorption, adding to kcal needs and reducing risk for fatty acid deficiency. 1tbs provides 115kcal and pt may be able to tolerate 4-7tbs per day. 5. Consider reducing physical activity by half until reaching 75kg (IBW) Diet Order: Clear Liquid EER: 2600kcal (+300kcal to promote wt gain), 95g PRO (1.4g/kg per PCM), 2L fluids Monitoring/Evaluations: If pt continues to have ER visits c same issues and symptomology and does not have weight gain in next 6w or if has further wt loss at any time, or if reccomended by PCP, this RD recc trialing NG tube c peptide based EN formula such as Vital 1.5 to replete wt and hydration.
--- NOTE | 2019-05-01 14:24 | PC.NURSE ---
Pt is dressed and ready for discharge home with Spouse. IV's removed, meds returned from pharmacy, [facility]. Reviewed stroke education. No changes to meds. Pt and Spouse denied further questions and Pt was taken out to POV via w/c by APPLICATION ENGINEER with Spouse and all belongings.
--- NOTE | 2019-05-16 18:14 | P.DS_ITS ---
History of Present Illness History of Present Illness Chief complaint: something is wrong with pancreas Narrative: Abdominal pain Patient with a diagnosis pancreatitis. Patient began to have some abdominal discomfort and nausea Sunday night he had some crackers during the day that with a typically does not have but only had a few. During the course of the night he began to have increasing abdominal pain increased nausea and then on Sunday yesterday had fair amount of vomiting of recurrent vomiting as well as increasing abdominal pain. No changes in bowel or bladder. No dysuria pyuria hematuria melena hematochezia No fever chills. Patient has history of chronic pancreatitis with recurrent acute pancreatitis. Recently here for abdominal pain and diarrhea. He has had no diarrhea. He is on a fairly strict diet that he monitors himself and has strict diarrhea that report records daily about his intake carbs protein and insulin dose. Patient is insulin-dependent diabetic monitors blood sugar refer fairly frequently and has reasonably good control. Upper tell Sunday he felt reasonably fine. As stated he was recently here with diarrhea evaluation was negative. He did have flare-up of his pancreatitis symptoms which are typically nausea and abdominal pain. Patient currently has Zofran for nausea. Oxycodone for abdominal pain which she uses on a regular basis. Discharge Providers Provider Date of admission: 04/28/19 19:34 Discharge Date: 05/01/19 Primary care physician: Indra Hammond MD Consults: 05/01/19 08:40 Consult to Dietitian, Adult Urgent Comment: Reason For Exam: TPN Discharge provider: Indra Hammond MD Summary Hospital Course Discharge Diagnosis: 1. Acute pancreatitis on chronic pancreatitis 2. Chronic pancreatitis. 3. Severe acute on chronic protein calorie malnutrition. 4. Diabetes mellitus well controlled. 5. . 5. Hypertension stable. 6. Chronic abdominal pain stable 7. History of hyperlipidemia stable 8. History atrial fibrillation stable 9. History of narcolepsy stable Hospital Course: Patient was admitted with acute on chronic pancreatitis. Treated with intravenous anti nausea and pain medication over the course of his stay is symptoms improved to where it back to his baseline nausea. And his baseline abdominal pain. We had attempted to consider outpatient infusion of parental nutrition. It was felt that this could be managed at the [facility] per our tool and production planner. Patient was discharged home with a follow-up appointment to be made with the [facility] where he was as a deeply involved. [facility] Status at Discharge Cognitive/behavioral status at discharge: oriented and at baseline, oriented Functional status at discharge: independent ambulation Overall status at discharge: patient is back to baseline Exam Vital Signs (past 8 hours): Oxygen Delivery Method Room Air Oxygen Flow Rate 0 Objective Labs Result Diagrams: 04/30/19 11:13 04/30/19 11:13 Discharge Plan Discharge Plan Patient Disposition: Home Discharge orders & Medications Prescriptions: Continued clopidogrel 75 mg Tablet 75 mg PO DAILY Qty: 0 RF: 0 diclofenac sodium [Voltaren] 1 % gel 1 crys Topical QID PRN (Reason: osteoarthritis) Qty: 0 RF: 0 ondansetron 8 mg tablet,disintegrating 8 mg PO Q8H PRN (Reason: nausea and vomiting) Qty: 30 RF: 0 omeprazole 40 mg Capsule,Delayed Release(Dr/Ec) 40 mg PO BID RF: 0 insulin aspart U-100 [Novolog Flexpen U-100 Insulin] 100 unit/mL Insulin Pen 3 unit Sub-Q TID RF: 0 Creon 36,000-114,000- 180,000 unit Capsule,Delayed Release(Dr/Ec) 2 cap PO QID RF: 0 cholecalciferol (vitamin D3) [Vitamin D3] 1,000 unit Capsule 3,000 unit PO DAILY RF: 0 acetaminophen 325 MG tablet 325 mg PO Q4HP PRN (Reason: Pain, Mild) RF: 0 dabigatran etexilate 150 mg Capsule 150 mg PO BID RF: 0 oxycodone 5 mg Tablet 5 mg PO Q4HR PRN (Reason: Pain, Moderate (4-6)) Qty: 20 RF: 0 pravastatin 80 mg Tablet 80 mg PO BEDTIME Qty: 0 RF: 0 ondansetron 4 mg Tablet,Disintegrating 4 mg PO Q6H PRN (Reason: Nausea) RF: 0 Lantus Solostar U-100 Insulin 100 unit/mL (3 mL) Insulin Pen 10 units subcut DAILY Qty: 0 RF: 0 fluticasone propionate 50 mcg/actuation [place],Suspension 50 mcg intranasal DAILY Qty: 0 RF: 0 lisinopril 2.5 mg Tablet 2.5 mg PO DAILY RF: 0 metoprolol tartrate 25 mg Tablet 12.5 mg PO BID RF: 0 methylphenidate HCl 20 mg tablet 20 mg PO TID RF: 0 sildenafil 100 mg Tablet 50 mg PO DAILY MDD 50 mg PRN (Reason: Erectile Dysfunction) RF: 0 Follow up/Referrals: Indra Hammond MD [Primary Care Provider] - Discharge Data Primary Care Provider: Indra Hammond Discharges patient from system. Discharge Date/Time: 05/01/19 14:31
== END 2019-05-01 14:31 | disposition home or self-care (01) | DRG 438 ==
LOC: ED 19:07 → AC 19:35
PROVIDERS: Admitting Provider Internal Medicine; Emergency Provider Nurse Practitioner; Family Provider Emergency Medicine Emergency Medical Services; PCP Family Medicine; Referring Provider Nurse Practitioner; Visit Provider Family Medicine
DX: K85.90 Acute pancreatitis without necrosis or infection, unspecified (principal); E43 Unspecified severe protein-calorie malnutrition; I48.0 Paroxysmal atrial fibrillation; I10 Essential (primary) hypertension; E11.51 Type 2 diabetes mellitus with diabetic peripheral angiopathy without gangrene; K21.9 Gastro-esophageal reflux disease without esophagitis; E78.5 Hyperlipidemia, unspecified; Z79.4 Long term (current) use of insulin; Z87.891 Personal history of nicotine dependence; Z79.01 Long term (current) use of anticoagulants; Z68.21 Body mass index [BMI] 21.0-21.9, adult
CPT/HCPCS: 36415; 74177; 74181; 76705; 80048; 80053; 82962; 83605; 83690; 84145; 85025; 87040; 87045; 87507; 96361; 96365; 96375; 96376; 99284; J1170; J1200; J2060; J2405; J2543; J2930; Q9967

== ENCOUNTER 2019-06-12 07:30 | Outpatient (RCR) | payer OTHER, SELFPAY ==
[2018-03-24 13:51] VITALS: BMI 26.7
--- NOTE | 2019-01-23 09:04 | PT.OIE ---
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) Narcolepsy (Chronic) Paroxysmal atrial fibrillation (Chronic) Peripheral vascular disease (Chronic) Psoriasis (Chronic) Past Surgical History (Last Reviewed 08/05/18 @ 17:58 by Digna Warren PA-C) H/O exploratory laparotomy (Acute) Visit Care Team Role Provider Type Indra Hammond MD Primary Care Provider Physician Specialty: Family Practice Address: [address] [place] [address] [address], [address] Email: [email or web address] Jacobo Ochoa MD Attending Provider Non-Staff Family Provider Specialty: Emergency Medicine Address: [address] [place] [address] [address], [address] Email: Physical Therapy Initial Evaluation PT-OP-A Visit Information Start: 01/23/19 07:31 Freq: Status: Active Protocol: Document 01/23/19 07:30 AMB (Rec: 01/23/19 08:38 AMB [id number]) Out-Patient Physical Therapy Visit Information Visit Information Visit Type Initial Evaluation Visit Start Time 07:30 Visit Stop Time 08:15 Total Visit Minutes 45 Visit Number 1 PT-OP-B Current Condition Start: 01/23/19 07:31 Freq: Status: Active Protocol: Document 01/23/19 07:30 AMB (Rec: 01/23/19 08:38 AMB [id number]) Current Condition History of Current Condition Onset Date September 2017 Current Complaints Left heel pain that limits hiking. History of Current Condition Alfredo returns to physical therapy after extended PT that ended a few months ago. At the time of his discharge he was able to hike for about 2-3 miles over flat terrain without too much increasing pain. Now, he can hike for 6 miles with 1,000 foot elevation gain with 4/10 pain, but if he hikes longer or more intense elevation gain his pain increases significantly, and he feels overall his body requires 2-3 days of recovery time. His pain started after a fall from 3 feet directly onto his feet . His recovery has been complicated by his numerous other medical factors. Treatment Goals Patient/Caregiver Goals Hike [employer] Prior Functional Status Baseline Function- ADL's Independent Baseline Function- Mobility Independent Current Functional Impairments (Reported) Functional Limitations- ADL's difficulty hiking what he wants to hike Personal Factors Other Personal Factors That May Effect Pancreas issues to that limit Therapy/Recovery the amount of food/type of food Alfredo can eat- causes near constant nausea, has been losing weight, now maintaining at 155#, but that is less than his usual. Significant neuropathy in bilateral feet and legs. Venous transplant on the R, not going to do it on the L, so known poor venous return on the left leg. PT-OP-C Subjective Start: 01/23/19 07:31 Freq: Status: Active Protocol: Document 01/23/19 07:30 AMB (Rec: 01/23/19 16:11 AMB [email or web address]) Patient Questionnaires Foot & Ankle Ability Measure- ADL and Sports FAAM-ADL Score 66 FAAM-ADL Impairment 20 to 39% Impaired (Score 50- 66) Lower Extremity Functional Scale LEFS Score 67 LEFS Impairment 1 to 19% Impaired (Score 63-79 ) OP-PT Pain Assessment Location Left Heel Intensity 4 Scale Used Numeric (1 - 10) PT-OP-D Balance Start: 01/23/19 07:31 Freq: Status: Active Protocol: Document 01/23/19 07:30 AMB (Rec: 01/24/19 08:26 AMB [email or web address]) Balance Tests Single Limb Standing Single Limb- Right 10 seconds Single Limb- Left 10 seconds PT-OP-J Posture/Palpation/Skin Start: 01/23/19 07:31 Freq: Status: Active Protocol: Document 01/23/19 07:30 AMB (Rec: 01/24/19 08:26 AMB [email or web address]) Palpation Assessment Location One Palpation Location Left heel Palpation Findings Tenderness Palpation Details Significant tenderness with palpation at heel and at arch PT-OP-K Range of Motion Start: 01/23/19 07:31 Freq: Status: Active Protocol: Document 01/23/19 07:30 AMB (Rec: 01/24/19 08:26 AMB [email or web address]) Ankle and Foot Goniometric Range of Motion Ankle and Foot Right Passive Dorsiflexion with Knee Extended 5 Plantarflexion 32 Inversion 35 Eversion 25 Left Passive Dorsiflexion with Knee Extended 10 Plantarflexion 36 Inversion 30 Eversion 25 PT-OP-M Strength Start: 01/23/19 07:31 Freq: Status: Active Protocol: Document 01/23/19 07:30 AMB (Rec: 01/24/19 08:26 AMB [email or web address]) Ankle/Foot Strength Ankle and Foot Manual Muscle Testing Right Dorsiflexion (L4) 4+ Good+ Plantarflexion (S1) 4+ Good+ Inversion 4+ Good+ Eversion (S1) 4+ Good+ Left Dorsiflexion (L4) 4+ Good+ Plantarflexion (S1) 4+ Good+ Inversion 4 Good Eversion (S1) 4+ Good+ Toe Strength Toe Manual Muscle Testing Right Great Toe Flexion 4+ Good+ Comments toes 2-5 flexion 5/5 Left Great Toe Flexion 4 Good Comments toe flexion 2-5: 4/5 PT-OP-T Assessment and Plan Start: 01/23/19 07:31 Freq: Status: Active Protocol: Document 01/23/19 07:30 AMB (Rec: 01/24/19 09:04 AMB [email or web address]) Physical Therapy Assessment Rehab Potential Rehabilitation Potential Good Evaluation Complexity Number of Personal Factors/Comorbidities 3 or More Number of Body Systems Impaired 4 or More Clinical Presentation at Evaluation Evolving Impairments Impairments Functional Activities,Gait, Pain,Sensation,Strength Goals Three Impairment Hiking Short Term Goal (STG) Alfredo will hike for 8 miles over flat terrain with pain of 4/10 or less. STG Duration 4 weeks Mill Recorder Goal (LTG) Alfredo will hike for 10 miles with 3,000' elevation gain with 4/10 pain or less. LTG Duration 8 weeks Two Impairment Strength Chcf Goal (LTG) Alfredo will perform 10 full squats without UE support without LOB. LTG Duration 8 weeks One Impairment Balance Short Term Goal (STG) Alfredo will increase his single leg stance time to 15 seconds bilaterally. STG Duration 4 weeks Assessment Summary Assessment Alfredo returns to physical therapy due to difficulty progressing his hiking. He feels he has plateaued since he was discharged from PT. He continues to have weakness throughout his lower extremities in relation to his overall deconditioning from extensive nausea/ weight loss due to his pancreas issues. His balance is poor due to his neuropathy. He will benefit from continued PT to help him get his foot and overall lower extremity strength back up so that he can hike as he wants to. Physical Therapy Plan Frequency and Duration Frequency of Treatment 2x/Week Duration of Treatment 8 weeks Plan of Care Start Date 01/23/19 Plan of Care End Date 03/20/19 Therapeutic Interventions Therapeutic Interventions Aquatic Therapy,Balance Training,Gait Training,Home Exercise Program,Joint Mobilizations,Manual Therapy, Neuromuscular Re-education, Self-Care/Home Management, Therapeutic Activities, Therapeutic Exercises Modalities Cold Pack/Ice Massage,Electric Stimulation,Ultrasound Next Visit Focus/Plan Next Note Type Treatment Note Next Visit Plan Progress functional strengthening, balance (will be difficult due to neuropathy ), flexibility and strength of foot intrinsics
--- NOTE | 2019-01-27 10:20 | PT.OTN ---
Current Diagnoses Plantar fascial fibromatosis (01/27/19) Physical Therapy Treatment Note PT-OP-A Visit Information Start: 01/23/19 07:31 Freq: Status: Active Protocol: Document 01/27/19 07:30 AMB (Rec: 01/27/19 08:15 AMB [id number]) Out-Patient Physical Therapy Visit Information Visit Information Visit Type Treatment Note Visit Start Time 07:30 Visit Stop Time 08:15 Total Visit Minutes 45 Visit Number 2 PT-OP-B Current Condition Start: 01/23/19 07:31 Freq: Status: Active Protocol: Document 01/23/19 07:30 AMB (Rec: 01/23/19 08:38 AMB [id number]) Current Condition History of Current Condition Onset Date September 2017 Current Complaints Left heel pain that limits hiking. History of Current Condition Alfredo returns to physical therapy after extended PT that ended a few months ago. At the time of his discharge he was able to hike for about 2-3 miles over flat terrain without too much increasing pain. Now, he can hike for 6 miles with 1,000 foot elevation gain with 4/10 pain, but if he hikes longer or more intense elevation gain his pain increases significantly, and he feels overall his body requires 2-3 days of recovery time. His pain started after a fall from 3 feet directly onto his feet . His recovery has been complicated by his numerous other medical factors. Treatment Goals Patient/Caregiver Goals Hike [facility] Prior Functional Status Baseline Function- ADL's Independent Baseline Function- Mobility Independent Current Functional Impairments (Reported) Functional Limitations- ADL's difficulty hiking what he wants to hike Personal Factors Other Personal Factors That May Effect Pancreas issues to that limit Therapy/Recovery the amount of food/type of food Alfredo can eat- causes near constant nausea, has been losing weight, now maintaining at 155#, but that is less than his usual. Significant neuropathy in bilateral feet and legs. Venous transplant on the R, not going to do it on the L, so known poor venous return on the left leg. PT-OP-C Subjective Start: 01/23/19 07:31 Freq: Status: Active Protocol: Document 01/27/19 07:30 AMB (Rec: 01/27/19 08:15 AMB [id number]) OP-PT Subjective Patient Comments Patient Comments Pt reports no hiking this weekend, so feeling pretty good this morning. PT-OP-D Balance Start: 01/23/19 07:31 Freq: Status: Active Protocol: Document 01/23/19 07:30 AMB (Rec: 01/24/19 08:26 AMB [email or web address]) Balance Tests Single Limb Standing Single Limb- Right 10 seconds Single Limb- Left 10 seconds PT-OP-J Posture/Palpation/Skin Start: 01/23/19 07:31 Freq: Status: Active Protocol: Document 01/23/19 07:30 AMB (Rec: 01/24/19 08:26 AMB [email or web address]) Palpation Assessment Location One Palpation Location Left heel Palpation Findings Tenderness Palpation Details Significant tenderness with palpation at heel and at arch PT-OP-K Range of Motion Start: 01/23/19 07:31 Freq: Status: Active Protocol: Document 01/23/19 07:30 AMB (Rec: 01/24/19 08:26 AMB [email or web address]) Ankle and Foot Goniometric Range of Motion Ankle and Foot Right Passive Dorsiflexion with Knee Extended 5 Plantarflexion 32 Inversion 35 Eversion 25 Left Passive Dorsiflexion with Knee Extended 10 Plantarflexion 36 Inversion 30 Eversion 25 PT-OP-M Strength Start: 01/23/19 07:31 Freq: Status: Active Protocol: Document 01/23/19 07:30 AMB (Rec: 01/24/19 08:26 AMB [email or web address]) Ankle/Foot Strength Ankle and Foot Manual Muscle Testing Right Dorsiflexion (L4) 4+ Good+ Plantarflexion (S1) 4+ Good+ Inversion 4+ Good+ Eversion (S1) 4+ Good+ Left Dorsiflexion (L4) 4+ Good+ Plantarflexion (S1) 4+ Good+ Inversion 4 Good Eversion (S1) 4+ Good+ Toe Strength Toe Manual Muscle Testing Right Great Toe Flexion 4+ Good+ Comments toes 2-5 flexion 5/5 Left Great Toe Flexion 4 Good Comments toe flexion 2-5: 4/5 PT-OP-Q Treatments Start: 01/23/19 07:31 Freq: Status: Active Protocol: Document 01/27/19 07:30 AMB (Rec: 01/27/19 08:15 AMB [id number]) Cardio Equipment Treadmill Duration (Minutes) 5 Speed 2.2 Incline 3 Gym Equipment Shuttle Recovery Unilateral Squats Resistance 75 Shuttle Recovery Platform Stable Reps/Time 10 Therapeutic Exercises Standing Exercises 6 Standing Exercise Name squat Reps/Minutes 5 Comments partial 5 Standing Exercise Name double leg heel raises Comments on step 4 Standing Exercise Name lateral step up Reps/Minutes 6 step up, 2x10 3 Standing Exercise Name sidestepping squats Reps/Minutes 2x10 Comments yellow t band Manual Therapy Treatment Soft Tissue Mobilization 1 Body Location heel and arch Mobilization Type Myofascial Release Intensity/Depth Moderate Body Position Supine Comments Tenderness with mod-deep pressure Joint Mobilizations 1 Joint talocrural Direction AP Grade IV L great toe Joint Intermetatarsal Direction AP, PA Grade III Body Position Supine Comments great toe extension PT-OP-T Assessment and Plan Start: 01/23/19 07:31 Freq: Status: Active Protocol: Document 01/27/19 10:15 AMB (Rec: 01/27/19 10:17 AMB [email or web address]) Physical Therapy Assessment Assessment Summary Assessment Pt continues to feel fatigued with gentle exercises, but was able to tolerate more than last bout of PT. Physical Therapy Plan Next Visit Focus/Plan Next Note Type Treatment Note Next Visit Plan Progress functional strengthening, balance (will be difficult due to neuropathy ), flexibility and strength of foot intrinsics
--- NOTE | 2019-01-29 10:24 | PT.OTN ---
Current Diagnoses Plantar fascial fibromatosis (01/29/19) Physical Therapy Treatment Note PT-OP-A Visit Information Start: 01/23/19 07:31 Freq: Status: Active Protocol: Document 01/29/19 07:30 AMB (Rec: 01/29/19 07:50 AMB [id number]) Out-Patient Physical Therapy Visit Information Visit Information Visit Type Treatment Note Visit Start Time 07:30 Visit Stop Time 08:15 Total Visit Minutes 45 Visit Number 3 PT-OP-B Current Condition Start: 01/23/19 07:31 Freq: Status: Active Protocol: Document 01/23/19 07:30 AMB (Rec: 01/23/19 08:38 AMB [id number]) Current Condition History of Current Condition Onset Date September 2017 Current Complaints Left heel pain that limits hiking. History of Current Condition Alfredo returns to physical therapy after extended PT that ended a few months ago. At the time of his discharge he was able to hike for about 2-3 miles over flat terrain without too much increasing pain. Now, he can hike for 6 miles with 1,000 foot elevation gain with 4/10 pain, but if he hikes longer or more intense elevation gain his pain increases significantly, and he feels overall his body requires 2-3 days of recovery time. His pain started after a fall from 3 feet directly onto his feet . His recovery has been complicated by his numerous other medical factors. Treatment Goals Patient/Caregiver Goals Hike [facility] Prior Functional Status Baseline Function- ADL's Independent Baseline Function- Mobility Independent Current Functional Impairments (Reported) Functional Limitations- ADL's difficulty hiking what he wants to hike Personal Factors Other Personal Factors That May Effect Pancreas issues to that limit Therapy/Recovery the amount of food/type of food Alfredo can eat- causes near constant nausea, has been losing weight, now maintaining at 155#, but that is less than his usual. Significant neuropathy in bilateral feet and legs. Venous transplant on the R, not going to do it on the L, so known poor venous return on the left leg. PT-OP-C Subjective Start: 01/23/19 07:31 Freq: Status: Active Protocol: Document 01/29/19 07:30 AMB (Rec: 01/29/19 07:50 AMB [id number]) OP-PT Subjective Patient Comments Patient Comments Pt is painful after last treatment. Sore in bilateral calves. PT-OP-D Balance Start: 01/23/19 07:31 Freq: Status: Active Protocol: Document 01/23/19 07:30 AMB (Rec: 01/24/19 08:26 AMB [email or web address]) Balance Tests Single Limb Standing Single Limb- Right 10 seconds Single Limb- Left 10 seconds PT-OP-J Posture/Palpation/Skin Start: 01/23/19 07:31 Freq: Status: Active Protocol: Document 01/23/19 07:30 AMB (Rec: 01/24/19 08:26 AMB [email or web address]) Palpation Assessment Location One Palpation Location Left heel Palpation Findings Tenderness Palpation Details Significant tenderness with palpation at heel and at arch PT-OP-K Range of Motion Start: 01/23/19 07:31 Freq: Status: Active Protocol: Document 01/23/19 07:30 AMB (Rec: 01/24/19 08:26 AMB [email or web address]) Ankle and Foot Goniometric Range of Motion Ankle and Foot Right Passive Dorsiflexion with Knee Extended 5 Plantarflexion 32 Inversion 35 Eversion 25 Left Passive Dorsiflexion with Knee Extended 10 Plantarflexion 36 Inversion 30 Eversion 25 PT-OP-M Strength Start: 01/23/19 07:31 Freq: Status: Active Protocol: Document 01/23/19 07:30 AMB (Rec: 01/24/19 08:26 AMB [email or web address]) Ankle/Foot Strength Ankle and Foot Manual Muscle Testing Right Dorsiflexion (L4) 4+ Good+ Plantarflexion (S1) 4+ Good+ Inversion 4+ Good+ Eversion (S1) 4+ Good+ Left Dorsiflexion (L4) 4+ Good+ Plantarflexion (S1) 4+ Good+ Inversion 4 Good Eversion (S1) 4+ Good+ Toe Strength Toe Manual Muscle Testing Right Great Toe Flexion 4+ Good+ Comments toes 2-5 flexion 5/5 Left Great Toe Flexion 4 Good Comments toe flexion 2-5: 4/5 PT-OP-Q Treatments Start: 01/23/19 07:31 Freq: Status: Active Protocol: Document 01/29/19 07:30 AMB (Rec: 01/29/19 07:50 AMB [id number]) Gym Equipment Shuttle Recovery Unilateral Squats Resistance 100 Shuttle Recovery Platform Stable Reps/Time 2x10 Bilateral Heel Raises Resistance 50 Shuttle Recovery Platform Stable Reps/Time 1x10 Therapeutic Exercises Standing Exercises 6 Standing Exercise Name squat Reps/Minutes 5 Comments partial 5 Standing Exercise Name double leg heel raises Comments on step 4 Standing Exercise Name lateral step up Reps/Minutes 6 step up, 2x10 3 Standing Exercise Name sidestepping squats Reps/Minutes 2x10 Comments yellow t band 2 Standing Exercise Name calf stretch Reps/Minutes 30x4 1 Standing Exercise Name lunge forward Comments without UE support PT-OP-T Assessment and Plan Start: 01/23/19 07:31 Freq: Status: Active Protocol: Document 01/29/19 07:30 AMB (Rec: 01/29/19 10:24 AMB [email or web address]) Physical Therapy Assessment Assessment Summary Assessment Pt with increased soreness in calves today, encouraged to continue with HEP at home. he has been resistant to doing exercises at home and has been hoping that strengthening would come naturally with hiking, but is coming around to doing exercises at home. Physical Therapy Plan Next Visit Focus/Plan Next Note Type Treatment Note Next Visit Plan Progress functional strengthening, balance (will be difficult due to neuropathy ), flexibility and strength of foot intrinsics
--- NOTE | 2019-02-03 12:56 | PT.OTN ---
Current Diagnoses Plantar fascial fibromatosis (02/03/19) Physical Therapy Treatment Note PT-OP-A Visit Information Start: 01/23/19 07:31 Freq: Status: Active Protocol: Document 02/03/19 08:14 AMB (Rec: 02/03/19 08:29 AMB [id number]) Out-Patient Physical Therapy Visit Information Visit Information Visit Type Treatment Note Visit Start Time 08:15 Visit Stop Time 09:00 Total Visit Minutes 45 Visit Number 4 PT-OP-B Current Condition Start: 01/23/19 07:31 Freq: Status: Active Protocol: Document 01/23/19 07:30 AMB (Rec: 01/23/19 08:38 AMB [id number]) Current Condition History of Current Condition Onset Date September 2017 Current Complaints Left heel pain that limits hiking. History of Current Condition Alfredo returns to physical therapy after extended PT that ended a few months ago. At the time of his discharge he was able to hike for about 2-3 miles over flat terrain without too much increasing pain. Now, he can hike for 6 miles with 1,000 foot elevation gain with 4/10 pain, but if he hikes longer or more intense elevation gain his pain increases significantly, and he feels overall his body requires 2-3 days of recovery time. His pain started after a fall from 3 feet directly onto his feet . His recovery has been complicated by his numerous other medical factors. Treatment Goals Patient/Caregiver Goals Hike [facility] Prior Functional Status Baseline Function- ADL's Independent Baseline Function- Mobility Independent Current Functional Impairments (Reported) Functional Limitations- ADL's difficulty hiking what he wants to hike Personal Factors Other Personal Factors That May Effect Pancreas issues to that limit Therapy/Recovery the amount of food/type of food Alfredo can eat- causes near constant nausea, has been losing weight, now maintaining at 155#, but that is less than his usual. Significant neuropathy in bilateral feet and legs. Venous transplant on the R, not going to do it on the L, so known poor venous return on the left leg. PT-OP-C Subjective Start: 01/23/19 07:31 Freq: Status: Active Protocol: Document 02/03/19 08:14 AMB (Rec: 02/03/19 08:29 AMB [id number]) OP-PT Subjective Patient Comments Patient Comments Pt states he is going to be busy today with [employer] day so he is concerned about over doing it in PT today. PT-OP-D Balance Start: 01/23/19 07:31 Freq: Status: Active Protocol: Document 01/23/19 07:30 AMB (Rec: 01/24/19 08:26 AMB [email or web address]) Balance Tests Single Limb Standing Single Limb- Right 10 seconds Single Limb- Left 10 seconds PT-OP-J Posture/Palpation/Skin Start: 01/23/19 07:31 Freq: Status: Active Protocol: Document 01/23/19 07:30 AMB (Rec: 01/24/19 08:26 AMB [email or web address]) Palpation Assessment Location One Palpation Location Left heel Palpation Findings Tenderness Palpation Details Significant tenderness with palpation at heel and at arch PT-OP-K Range of Motion Start: 01/23/19 07:31 Freq: Status: Active Protocol: Document 01/23/19 07:30 AMB (Rec: 01/24/19 08:26 AMB [email or web address]) Ankle and Foot Goniometric Range of Motion Ankle and Foot Right Passive Dorsiflexion with Knee Extended 5 Plantarflexion 32 Inversion 35 Eversion 25 Left Passive Dorsiflexion with Knee Extended 10 Plantarflexion 36 Inversion 30 Eversion 25 PT-OP-M Strength Start: 01/23/19 07:31 Freq: Status: Active Protocol: Document 01/23/19 07:30 AMB (Rec: 01/24/19 08:26 AMB [email or web address]) Ankle/Foot Strength Ankle and Foot Manual Muscle Testing Right Dorsiflexion (L4) 4+ Good+ Plantarflexion (S1) 4+ Good+ Inversion 4+ Good+ Eversion (S1) 4+ Good+ Left Dorsiflexion (L4) 4+ Good+ Plantarflexion (S1) 4+ Good+ Inversion 4 Good Eversion (S1) 4+ Good+ Toe Strength Toe Manual Muscle Testing Right Great Toe Flexion 4+ Good+ Comments toes 2-5 flexion 5/5 Left Great Toe Flexion 4 Good Comments toe flexion 2-5: 4/5 PT-OP-Q Treatments Start: 01/23/19 07:31 Freq: Status: Active Protocol: Document 02/03/19 08:14 AMB (Rec: 02/03/19 08:29 AMB [id number]) Gym Equipment Shuttle Recovery Bilateral Squats Details 100 Shuttle Recovery Platform Stable Reps/Time 2x10 Bilateral Heel Raises Resistance 50 Shuttle Recovery Platform Stable Reps/Time 1x10 Therapeutic Exercises Standing Exercises 7 Standing Exercise Name counter pushup Reps/Minutes 10 6 Standing Exercise Name wall squat Reps/Minutes 5 Comments partial 5 Standing Exercise Name double leg heel raises Reps/Minutes 2x10 Comments on step 4 Standing Exercise Name lateral step up Reps/Minutes 6 step up, 2x10 2 Standing Exercise Name calf stretch Reps/Minutes 30x4 1 Standing Exercise Name lunge forward and lateral Comments without UE support Manual Therapy Treatment Soft Tissue Mobilization 1 Body Location heel and arch Mobilization Type Myofascial Release Intensity/Depth Moderate Body Position Supine Comments Tenderness with mod-deep pressure Joint Mobilizations 1 Joint talocrural Direction AP Grade IV L great toe Joint Intermetatarsal Direction AP, PA Grade III Body Position Supine Comments great toe extension PT-OP-T Assessment and Plan Start: 01/23/19 07:31 Freq: Status: Active Protocol: Document 02/03/19 07:30 AMB (Rec: 02/03/19 12:53 AMB [email or web address]) Physical Therapy Assessment Assessment Summary Assessment Pt encouraged to continue with danii yandemetrius at home to work on lateral stabilization. Pt continues to feel fatigue quickly. Physical Therapy Plan Next Visit Focus/Plan Next Note Type Treatment Note Next Visit Plan Progress functional strengthening, balance (will be difficult due to neuropathy ), flexibility and strength of foot intrinsics
--- NOTE | 2019-02-05 08:34 | PT.OTN ---
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) Physical Therapy Treatment Note PT-OP-A Visit Information Start: 01/23/19 07:31 Freq: Status: Active Protocol: Document 02/05/19 07:30 AMB (Rec: 02/05/19 08:34 AMB [email or web address]) Out-Patient Physical Therapy Visit Information Visit Information Visit Type Treatment Note Visit Start Time 07:30 Visit Stop Time 08:15 Total Visit Minutes 45 Visit Number 5 PT-OP-B Current Condition Start: 01/23/19 07:31 Freq: Status: Active Protocol: Document 01/23/19 07:30 AMB (Rec: 01/23/19 08:38 AMB [id number]) Current Condition History of Current Condition Onset Date September 2017 Current Complaints Left heel pain that limits hiking. History of Current Condition Alfredo returns to physical therapy after extended PT that ended a few months ago. At the time of his discharge he was able to hike for about 2-3 miles over flat terrain without too much increasing pain. Now, he can hike for 6 miles with 1,000 foot elevation gain with 4/10 pain, but if he hikes longer or more intense elevation gain his pain increases significantly, and he feels overall his body requires 2-3 days of recovery time. His pain started after a fall from 3 feet directly onto his feet . His recovery has been complicated by his numerous other medical factors. Treatment Goals Patient/Caregiver Goals Hike [facility] Prior Functional Status Baseline Function- ADL's Independent Baseline Function- Mobility Independent Current Functional Impairments (Reported) Functional Limitations- ADL's difficulty hiking what he wants to hike Personal Factors Other Personal Factors That May Effect Pancreas issues to that limit Therapy/Recovery the amount of food/type of food Alfredo can eat- causes near constant nausea, has been losing weight, now maintaining at 155#, but that is less than his usual. Significant neuropathy in bilateral feet and legs. Venous transplant on the R, not going to do it on the L, so known poor venous return on the left leg. PT-OP-C Subjective Start: 01/23/19 07:31 Freq: Status: Active Protocol: Document 02/05/19 07:30 AMB (Rec: 02/05/19 08:34 AMB [email or web address]) OP-PT Subjective Patient Comments Patient Comments Pt states he did fine on Sunday, but was very tired on Sunday. With all of his activities, he walked 7 miles on Sunday. PT-OP-D Balance Start: 01/23/19 07:31 Freq: Status: Active Protocol: Document 01/23/19 07:30 AMB (Rec: 01/24/19 08:26 AMB [email or web address]) Balance Tests Single Limb Standing Single Limb- Right 10 seconds Single Limb- Left 10 seconds PT-OP-J Posture/Palpation/Skin Start: 01/23/19 07:31 Freq: Status: Active Protocol: Document 01/23/19 07:30 AMB (Rec: 01/24/19 08:26 AMB [email or web address]) Palpation Assessment Location One Palpation Location Left heel Palpation Findings Tenderness Palpation Details Significant tenderness with palpation at heel and at arch PT-OP-K Range of Motion Start: 01/23/19 07:31 Freq: Status: Active Protocol: Document 01/23/19 07:30 AMB (Rec: 01/24/19 08:26 AMB [email or web address]) Ankle and Foot Goniometric Range of Motion Ankle and Foot Right Passive Dorsiflexion with Knee Extended 5 Plantarflexion 32 Inversion 35 Eversion 25 Left Passive Dorsiflexion with Knee Extended 10 Plantarflexion 36 Inversion 30 Eversion 25 PT-OP-M Strength Start: 01/23/19 07:31 Freq: Status: Active Protocol: Document 01/23/19 07:30 AMB (Rec: 01/24/19 08:26 AMB [email or web address]) Ankle/Foot Strength Ankle and Foot Manual Muscle Testing Right Dorsiflexion (L4) 4+ Good+ Plantarflexion (S1) 4+ Good+ Inversion 4+ Good+ Eversion (S1) 4+ Good+ Left Dorsiflexion (L4) 4+ Good+ Plantarflexion (S1) 4+ Good+ Inversion 4 Good Eversion (S1) 4+ Good+ Toe Strength Toe Manual Muscle Testing Right Great Toe Flexion 4+ Good+ Comments toes 2-5 flexion 5/5 Left Great Toe Flexion 4 Good Comments toe flexion 2-5: 4/5 PT-OP-Q Treatments Start: 01/23/19 07:31 Freq: Status: Active Protocol: Document 02/05/19 07:30 AMB (Rec: 02/05/19 08:34 AMB [email or web address]) Gym Equipment Shuttle Recovery Unilateral Heel Raises Resistance 50 Reps/Time 1x5 Bilateral Heel Raises Resistance 50 Shuttle Recovery Platform Stable Reps/Time 1x10 Therapeutic Exercises Standing Exercises 7 Standing Exercise Name counter pushup Reps/Minutes 10 6 Standing Exercise Name wall squat Reps/Minutes 5 Comments partial 5 Standing Exercise Name double leg heel raises Reps/Minutes 2x10 Comments on step 4 Standing Exercise Name lateral step up Reps/Minutes 6 step up, 2x10 2 Standing Exercise Name calf stretch Reps/Minutes 30x4 1 Standing Exercise Name lunge forward and lateral Comments without UE support Manual Therapy Treatment Soft Tissue Mobilization 1 Intensity/Depth Moderate Body Position Supine PT-OP-T Assessment and Plan Start: 01/23/19 07:31 Freq: Status: Active Protocol: Document 02/05/19 07:30 AMB (Rec: 02/05/19 08:34 AMB [email or web address]) Physical Therapy Assessment Assessment Summary Assessment Pt is doing well with strengthening, but improvement may be slow with his other medical issues. He does fatigue quickly. Physical Therapy Plan Next Visit Focus/Plan Next Note Type Treatment Note Next Visit Plan Progress functional strengthening, balance (will be difficult due to neuropathy ), flexibility and strength of foot intrinsics
--- NOTE | 2019-02-27 08:09 | PT.OTN ---
Current Diagnoses Plantar fascial fibromatosis (02/27/19) Physical Therapy Treatment Note PT-OP-A Visit Information Start: 01/23/19 07:31 Freq: Status: Active Protocol: Document 02/27/19 07:30 AMB (Rec: 02/27/19 08:07 AMB [id number]) Out-Patient Physical Therapy Visit Information Visit Information Visit Type Treatment Note Visit Start Time 07:30 Visit Stop Time 08:15 Total Visit Minutes 45 Visit Number 6 PT-OP-B Current Condition Start: 01/23/19 07:31 Freq: Status: Active Protocol: Document 01/23/19 07:30 AMB (Rec: 01/23/19 08:38 AMB [id number]) Current Condition History of Current Condition Onset Date September 2017 Current Complaints Left heel pain that limits hiking. History of Current Condition Alfredo returns to physical therapy after extended PT that ended a few months ago. At the time of his discharge he was able to hike for about 2-3 miles over flat terrain without too much increasing pain. Now, he can hike for 6 miles with 1,000 foot elevation gain with 4/10 pain, but if he hikes longer or more intense elevation gain his pain increases significantly, and he feels overall his body requires 2-3 days of recovery time. His pain started after a fall from 3 feet directly onto his feet . His recovery has been complicated by his numerous other medical factors. Treatment Goals Patient/Caregiver Goals Hike [facility] emergency department Prior Functional Status Baseline Function- ADL's Independent Baseline Function- Mobility Independent Current Functional Impairments (Reported) Functional Limitations- ADL's difficulty hiking what he wants to hike Personal Factors Other Personal Factors That May Effect Pancreas issues to that limit Therapy/Recovery the amount of food/type of food Alfredo can eat- causes near constant nausea, has been losing weight, now maintaining at 155#, but that is less than his usual. Significant neuropathy in bilateral feet and legs. Venous transplant on the R, not going to do it on the L, so known poor venous return on the left leg. PT-OP-C Subjective Start: 01/23/19 07:31 Freq: Status: Active Protocol: Document 02/27/19 07:30 AMB (Rec: 02/27/19 08:07 AMB [id number]) OP-PT Subjective Patient Comments Patient Comments Pt returns to PT after recent hospitilization due to pancreas issue and was found to have ecoli enteritis. Has not been hiking or moving around much, just getting over the liquid diet. PT-OP-D Balance Start: 01/23/19 07:31 Freq: Status: Active Protocol: Document 01/23/19 07:30 AMB (Rec: 01/24/19 08:26 AMB [email or web address]) Balance Tests Single Limb Standing Single Limb- Right 10 seconds Single Limb- Left 10 seconds PT-OP-J Posture/Palpation/Skin Start: 01/23/19 07:31 Freq: Status: Active Protocol: Document 01/23/19 07:30 AMB (Rec: 01/24/19 08:26 AMB [email or web address]) Palpation Assessment Location One Palpation Location Left heel Palpation Findings Tenderness Palpation Details Significant tenderness with palpation at heel and at arch PT-OP-K Range of Motion Start: 01/23/19 07:31 Freq: Status: Active Protocol: Document 01/23/19 07:30 AMB (Rec: 01/24/19 08:26 AMB [email or web address]) Ankle and Foot Goniometric Range of Motion Ankle and Foot Right Passive Dorsiflexion with Knee Extended 5 Plantarflexion 32 Inversion 35 Eversion 25 Left Passive Dorsiflexion with Knee Extended 10 Plantarflexion 36 Inversion 30 Eversion 25 PT-OP-M Strength Start: 01/23/19 07:31 Freq: Status: Active Protocol: Document 01/23/19 07:30 AMB (Rec: 01/24/19 08:26 AMB [email or web address]) Ankle/Foot Strength Ankle and Foot Manual Muscle Testing Right Dorsiflexion (L4) 4+ Good+ Plantarflexion (S1) 4+ Good+ Inversion 4+ Good+ Eversion (S1) 4+ Good+ Left Dorsiflexion (L4) 4+ Good+ Plantarflexion (S1) 4+ Good+ Inversion 4 Good Eversion (S1) 4+ Good+ Toe Strength Toe Manual Muscle Testing Right Great Toe Flexion 4+ Good+ Comments toes 2-5 flexion 5/5 Left Great Toe Flexion 4 Good Comments toe flexion 2-5: 4/5 PT-OP-Q Treatments Start: 01/23/19 07:31 Freq: Status: Active Protocol: Document 02/27/19 07:30 AMB (Rec: 02/27/19 08:07 AMB [id number]) Gym Equipment Shuttle Recovery Bilateral Squats Details 75 Shuttle Recovery Platform Stable Reps/Time 2x10 Bilateral Heel Raises Resistance 50 Shuttle Recovery Platform Stable Reps/Time 1x10 Shuttle Balance 1 Details Ant/Post Comments Blue. NBOS & stride stance with ant/post. WBOS with lateral Therapeutic Exercises Sitting Exercises 2 Sitting Exercise Name #3 t band Reps/Minutes 2x10 ea Comments PF, inversion, eversion Neuro Re-Education Treatment Balance Activities 2 Details single leg stance Reps/Duration 30x2 1 Details blue airex pad Reps/Duration 2 min Comments EO PT-OP-T Assessment and Plan Start: 01/23/19 07:31 Freq: Status: Active Protocol: Document 02/27/19 07:30 AMB (Rec: 02/27/19 08:09 AMB [email or web address]) Physical Therapy Assessment Assessment Summary Assessment Alfredo returns after recent hospitalization with increased fatigue and weakness. Only tolerated 35 minute treatment today. Will need to step back from more aggressive strengthening for now. Physical Therapy Plan Next Visit Focus/Plan Next Note Type Treatment Note Next Visit Plan Progress functional strengthening, balance (will be difficult due to neuropathy ), flexibility and strength of foot intrinsics
--- NOTE | 2019-03-05 11:10 | PT.OTN ---
Current Diagnoses Plantar fascial fibromatosis (03/05/19) Physical Therapy Treatment Note PT-OP-A Visit Information Start: 01/23/19 07:31 Freq: Status: Active Protocol: Document 03/05/19 07:30 AMB (Rec: 03/05/19 08:09 AMB [id number]) Out-Patient Physical Therapy Visit Information Visit Information Visit Type Treatment Note Visit Start Time 07:30 Visit Stop Time 08:15 Total Visit Minutes 45 Visit Number 7 PT-OP-B Current Condition Start: 01/23/19 07:31 Freq: Status: Active Protocol: Document 01/23/19 07:30 AMB (Rec: 01/23/19 08:38 AMB [id number]) Current Condition History of Current Condition Onset Date September 2017 Current Complaints Left heel pain that limits hiking. History of Current Condition Alfredo returns to physical therapy after extended PT that ended a few months ago. At the time of his discharge he was able to hike for about 2-3 miles over flat terrain without too much increasing pain. Now, he can hike for 6 miles with 1,000 foot elevation gain with 4/10 pain, but if he hikes longer or more intense elevation gain his pain increases significantly, and he feels overall his body requires 2-3 days of recovery time. His pain started after a fall from 3 feet directly onto his feet . His recovery has been complicated by his numerous other medical factors. Treatment Goals Patient/Caregiver Goals Hike [facility] Prior Functional Status Baseline Function- ADL's Independent Baseline Function- Mobility Independent Current Functional Impairments (Reported) Functional Limitations- ADL's difficulty hiking what he wants to hike Personal Factors Other Personal Factors That May Effect Pancreas issues to that limit Therapy/Recovery the amount of food/type of food Alfredo can eat- causes near constant nausea, has been losing weight, now maintaining at 155#, but that is less than his usual. Significant neuropathy in bilateral feet and legs. Venous transplant on the R, not going to do it on the L, so known poor venous return on the left leg. PT-OP-C Subjective Start: 01/23/19 07:31 Freq: Status: Active Protocol: Document 03/05/19 07:30 AMB (Rec: 03/05/19 08:09 AMB [id number]) OP-PT Subjective Patient Comments Patient Comments Pt feeling slightly better this week but still fatigued. PT-OP-D Balance Start: 01/23/19 07:31 Freq: Status: Active Protocol: Document 01/23/19 07:30 AMB (Rec: 01/24/19 08:26 AMB [email or web address]) Balance Tests Single Limb Standing Single Limb- Right 10 seconds Single Limb- Left 10 seconds PT-OP-J Posture/Palpation/Skin Start: 01/23/19 07:31 Freq: Status: Active Protocol: Document 01/23/19 07:30 AMB (Rec: 01/24/19 08:26 AMB [email or web address]) Palpation Assessment Location One Palpation Location Left heel Palpation Findings Tenderness Palpation Details Significant tenderness with palpation at heel and at arch PT-OP-K Range of Motion Start: 01/23/19 07:31 Freq: Status: Active Protocol: Document 01/23/19 07:30 AMB (Rec: 01/24/19 08:26 AMB [email or web address]) Ankle and Foot Goniometric Range of Motion Ankle and Foot Right Passive Dorsiflexion with Knee Extended 5 Plantarflexion 32 Inversion 35 Eversion 25 Left Passive Dorsiflexion with Knee Extended 10 Plantarflexion 36 Inversion 30 Eversion 25 PT-OP-M Strength Start: 01/23/19 07:31 Freq: Status: Active Protocol: Document 01/23/19 07:30 AMB (Rec: 01/24/19 08:26 AMB [email or web address]) Ankle/Foot Strength Ankle and Foot Manual Muscle Testing Right Dorsiflexion (L4) 4+ Good+ Plantarflexion (S1) 4+ Good+ Inversion 4+ Good+ Eversion (S1) 4+ Good+ Left Dorsiflexion (L4) 4+ Good+ Plantarflexion (S1) 4+ Good+ Inversion 4 Good Eversion (S1) 4+ Good+ Toe Strength Toe Manual Muscle Testing Right Great Toe Flexion 4+ Good+ Comments toes 2-5 flexion 5/5 Left Great Toe Flexion 4 Good Comments toe flexion 2-5: 4/5 PT-OP-Q Treatments Start: 01/23/19 07:31 Freq: Status: Active Protocol: Document 03/05/19 07:30 AMB (Rec: 03/05/19 11:10 AMB [email or web address]) Cardio Equipment Recumbent Elliptical (Biodex) Duration (Minutes) 8 Resistance 7 Gym Equipment Shuttle Recovery Bilateral Squats Details 75 Shuttle Recovery Platform Stable Reps/Time 2x10 Bilateral Heel Raises Resistance 50 Shuttle Recovery Platform Stable Reps/Time 2x10 Therapeutic Exercises Standing Exercises 6 Standing Exercise Name wall squat Reps/Minutes 5 Comments partial 5 Standing Exercise Name double leg heel raises Reps/Minutes 2x10 Comments on step 2 Standing Exercise Name calf stretch Reps/Minutes 30x4 1 Standing Exercise Name lunge forward and lateral Comments without UE support PT-OP-T Assessment and Plan Start: 01/23/19 07:31 Freq: Status: Active Protocol: Document 03/05/19 07:30 AMB (Rec: 03/05/19 08:09 AMB [id number]) Physical Therapy Assessment Assessment Summary Assessment Pt doing better this week, foot isn't hurting too much, but has not been hiking because of overall fatigue/ deconditioning. Physical Therapy Plan Next Visit Focus/Plan Next Note Type Treatment Note Next Visit Plan Progress functional strengthening, balance (will be difficult due to neuropathy ), flexibility and strength of foot intrinsics
--- NOTE | 2019-03-12 08:10 | PT.OTN ---
Current Diagnoses Plantar fascial fibromatosis (03/12/19) Physical Therapy Treatment Note PT-OP-A Visit Information Start: 01/23/19 07:31 Freq: Status: Active Protocol: Document 03/12/19 07:30 AMB (Rec: 03/12/19 08:08 AMB [id number]) Out-Patient Physical Therapy Visit Information Visit Information Visit Type Treatment Note Visit Start Time 07:30 Visit Stop Time 08:15 Total Visit Minutes 45 Visit Number 8 PT-OP-B Current Condition Start: 01/23/19 07:31 Freq: Status: Active Protocol: Document 01/23/19 07:30 AMB (Rec: 01/23/19 08:38 AMB [id number]) Current Condition History of Current Condition Onset Date September 2017 Current Complaints Left heel pain that limits hiking. History of Current Condition Alfredo returns to physical therapy after extended PT that ended a few months ago. At the time of his discharge he was able to hike for about 2-3 miles over flat terrain without too much increasing pain. Now, he can hike for 6 miles with 1,000 foot elevation gain with 4/10 pain, but if he hikes longer or more intense elevation gain his pain increases significantly, and he feels overall his body requires 2-3 days of recovery time. His pain started after a fall from 3 feet directly onto his feet . His recovery has been complicated by his numerous other medical factors. Treatment Goals Patient/Caregiver Goals Hike [facility] Prior Functional Status Baseline Function- ADL's Independent Baseline Function- Mobility Independent Current Functional Impairments (Reported) Functional Limitations- ADL's difficulty hiking what he wants to hike Personal Factors Other Personal Factors That May Effect Pancreas issues to that limit Therapy/Recovery the amount of food/type of food Alfredo can eat- causes near constant nausea, has been losing weight, now maintaining at 155#, but that is less than his usual. Significant neuropathy in bilateral feet and legs. Venous transplant on the R, not going to do it on the L, so known poor venous return on the left leg. PT-OP-C Subjective Start: 01/23/19 07:31 Freq: Status: Active Protocol: Document 03/12/19 07:30 AMB (Rec: 03/12/19 08:08 AMB [id number]) OP-PT Subjective Patient Comments Patient Comments Pt continues to be fatigued, has not tried hiking in [place] since his hospitilization, so his foot is feeling fine. PT-OP-D Balance Start: 01/23/19 07:31 Freq: Status: Active Protocol: Document 01/23/19 07:30 AMB (Rec: 01/24/19 08:26 AMB [email or web address]) Balance Tests Single Limb Standing Single Limb- Right 10 seconds Single Limb- Left 10 seconds PT-OP-J Posture/Palpation/Skin Start: 01/23/19 07:31 Freq: Status: Active Protocol: Document 01/23/19 07:30 AMB (Rec: 01/24/19 08:26 AMB [email or web address]) Palpation Assessment Location One Palpation Location Left heel Palpation Findings Tenderness Palpation Details Significant tenderness with palpation at heel and at arch PT-OP-K Range of Motion Start: 01/23/19 07:31 Freq: Status: Active Protocol: Document 01/23/19 07:30 AMB (Rec: 01/24/19 08:26 AMB [email or web address]) Ankle and Foot Goniometric Range of Motion Ankle and Foot Right Passive Dorsiflexion with Knee Extended 5 Plantarflexion 32 Inversion 35 Eversion 25 Left Passive Dorsiflexion with Knee Extended 10 Plantarflexion 36 Inversion 30 Eversion 25 PT-OP-M Strength Start: 01/23/19 07:31 Freq: Status: Active Protocol: Document 01/23/19 07:30 AMB (Rec: 01/24/19 08:26 AMB [email or web address]) Ankle/Foot Strength Ankle and Foot Manual Muscle Testing Right Dorsiflexion (L4) 4+ Good+ Plantarflexion (S1) 4+ Good+ Inversion 4+ Good+ Eversion (S1) 4+ Good+ Left Dorsiflexion (L4) 4+ Good+ Plantarflexion (S1) 4+ Good+ Inversion 4 Good Eversion (S1) 4+ Good+ Toe Strength Toe Manual Muscle Testing Right Great Toe Flexion 4+ Good+ Comments toes 2-5 flexion 5/5 Left Great Toe Flexion 4 Good Comments toe flexion 2-5: 4/5 PT-OP-Q Treatments Start: 01/23/19 07:31 Freq: Status: Active Protocol: Document 03/12/19 07:30 AMB (Rec: 03/12/19 08:08 AMB [id number]) Cardio Equipment Recumbent Bicycle Duration (Minutes) 6 Resistance 5 Gym Equipment Shuttle Recovery Bilateral Squats Details 75 Shuttle Recovery Platform Stable Reps/Time 2x10 Therapeutic Exercises Standing Exercises 6 Standing Exercise Name wall squat Reps/Minutes 5 Comments partial 5 Standing Exercise Name double leg heel raises Reps/Minutes 2x10 Comments on step 4 Standing Exercise Name hip extension Resistance #2 tband Reps/Minutes 2x10 2 Standing Exercise Name calf stretch Reps/Minutes 30x4 1 Standing Exercise Name lunge forward and lateral Comments without UE support Neuro Re-Education Treatment Balance Activities 2 Details single leg stance Reps/Duration 30x2 1 Details blue airex pad Reps/Duration 2 min Comments EO PT-OP-T Assessment and Plan Start: 01/23/19 07:31 Freq: Status: Active Protocol: Document 03/12/19 07:30 AMB (Rec: 03/12/19 08:08 AMB [id number]) Physical Therapy Assessment Assessment Summary Assessment Pt continues to be deconditioned in comparison to previous level of function. This makes progressing exercises more difficult, but he continues to be motivated. Physical Therapy Plan Next Visit Focus/Plan Next Note Type Progress Note Next Visit Plan Progress functional strengthening, balance (will be difficult due to neuropathy ), flexibility and strength of foot intrinsics
--- NOTE | 2019-03-20 08:21 | PT.OTN ---
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) Physical Therapy Treatment Note PT-OP-A Visit Information Start: 01/23/19 07:31 Freq: Status: Active Protocol: Document 03/20/19 07:30 AMB (Rec: 03/20/19 07:53 AMB [id number]) Out-Patient Physical Therapy Visit Information Visit Information Visit Type Progress Note Visit Start Time 07:40 Visit Stop Time 08:20 Total Visit Minutes 40 Visit Number 9 PT-OP-B Current Condition Start: 01/23/19 07:31 Freq: Status: Active Protocol: Document 01/23/19 07:30 AMB (Rec: 01/23/19 08:38 AMB [id number]) Current Condition History of Current Condition Onset Date September 2017 Current Complaints Left heel pain that limits hiking. History of Current Condition Alfredo returns to physical therapy after extended PT that ended a few months ago. At the time of his discharge he was able to hike for about 2-3 miles over flat terrain without too much increasing pain. Now, he can hike for 6 miles with 1,000 foot elevation gain with 4/10 pain, but if he hikes longer or more intense elevation gain his pain increases significantly, and he feels overall his body requires 2-3 days of recovery time. His pain started after a fall from 3 feet directly onto his feet . His recovery has been complicated by his numerous other medical factors. Treatment Goals Patient/Caregiver Goals Hike [facility] emergency department Prior Functional Status Baseline Function- ADL's Independent Baseline Function- Mobility Independent Current Functional Impairments (Reported) Functional Limitations- ADL's difficulty hiking what he wants to hike Personal Factors Other Personal Factors That May Effect Pancreas issues to that limit Therapy/Recovery the amount of food/type of food Alfredo can eat- causes near constant nausea, has been losing weight, now maintaining at 155#, but that is less than his usual. Significant neuropathy in bilateral feet and legs. Venous transplant on the R, not going to do it on the L, so known poor venous return on the left leg. PT-OP-C Subjective Start: 01/23/19 07:31 Freq: Status: Active Protocol: Document 03/20/19 07:30 AMB (Rec: 03/20/19 07:53 AMB [id number]) OP-PT Subjective Patient Comments Patient Comments Pt is very tired today from all the holiday stuff. Family has been visited. PT-OP-D Balance Start: 01/23/19 07:31 Freq: Status: Active Protocol: Document 01/23/19 07:30 AMB (Rec: 01/24/19 08:26 AMB [email or web address]) Balance Tests Single Limb Standing Single Limb- Right 10 seconds Single Limb- Left 10 seconds PT-OP-J Posture/Palpation/Skin Start: 01/23/19 07:31 Freq: Status: Active Protocol: Document 01/23/19 07:30 AMB (Rec: 01/24/19 08:26 AMB [email or web address]) Palpation Assessment Location One Palpation Location Left heel Palpation Findings Tenderness Palpation Details Significant tenderness with palpation at heel and at arch PT-OP-K Range of Motion Start: 01/23/19 07:31 Freq: Status: Active Protocol: Document 01/23/19 07:30 AMB (Rec: 01/24/19 08:26 AMB [email or web address]) Ankle and Foot Goniometric Range of Motion Ankle and Foot Right Passive Dorsiflexion with Knee Extended 5 Plantarflexion 32 Inversion 35 Eversion 25 Left Passive Dorsiflexion with Knee Extended 10 Plantarflexion 36 Inversion 30 Eversion 25 PT-OP-M Strength Start: 01/23/19 07:31 Freq: Status: Active Protocol: Document 01/23/19 07:30 AMB (Rec: 01/24/19 08:26 AMB [email or web address]) Ankle/Foot Strength Ankle and Foot Manual Muscle Testing Right Dorsiflexion (L4) 4+ Good+ Plantarflexion (S1) 4+ Good+ Inversion 4+ Good+ Eversion (S1) 4+ Good+ Left Dorsiflexion (L4) 4+ Good+ Plantarflexion (S1) 4+ Good+ Inversion 4 Good Eversion (S1) 4+ Good+ Toe Strength Toe Manual Muscle Testing Right Great Toe Flexion 4+ Good+ Comments toes 2-5 flexion 5/5 Left Great Toe Flexion 4 Good Comments toe flexion 2-5: 4/5 PT-OP-Q Treatments Start: 01/23/19 07:31 Freq: Status: Active Protocol: Document 03/20/19 07:30 AMB (Rec: 03/20/19 07:53 AMB [id number]) Cardio Equipment Recumbent Bicycle Duration (Minutes) 6 Resistance 5 Gym Equipment Shuttle Recovery Bilateral Squats Details 100 Shuttle Recovery Platform Stable Reps/Time 2x10 Bilateral Heel Raises Resistance 50 Shuttle Recovery Platform Stable Reps/Time 2x10 Therapeutic Exercises Standing Exercises 5 Standing Exercise Name double leg heel raises Reps/Minutes 2x10 Comments on step 4 Standing Exercise Name hip extension Resistance #2 tband Reps/Minutes 2x10 2 Standing Exercise Name calf stretch Reps/Minutes 30x4 1 Standing Exercise Name lunge forward Reps/Minutes 2x10 Comments without UE support Neuro Re-Education Treatment Balance Activities 2 Details single leg stance Reps/Duration 10 seconds at a time, then needed UE support 1 Details bosu ball- double leg stance Reps/Duration 2 min Comments EO- increased ankle motion PT-OP-T Assessment and Plan Start: 01/23/19 07:31 Freq: Status: Active Protocol: Document 03/20/19 07:30 AMB (Rec: 03/20/19 07:53 AMB [id number]) Physical Therapy Assessment Goals Three Impairment Hiking Short Term Goal (STG) Alfredo will hike for 8 miles over flat terrain with pain of 4/10 or less. 03/20: NOT MET STG Duration 4 weeks Half-Way Goal (LTG) Alfredo will hike for 10 miles with 3,000' elevation gain with 4/10 pain or less. 03/20 : NOT MET LTG Duration 8 weeks Two Impairment Strength Brake Assembler Goal (LTG) Alfredo will perform 10 full squats without UE support without LOB. LTG Duration MET One Impairment Balance Short Term Goal (STG) Alfredo will increase his single leg stance time to 15 seconds bilaterally. NOT MET STG Duration 4 weeks Assessment Summary Assessment Pt is still recovering from his hospitilization. He has not tried any hiking. He has been very fatigued. The plantar fasciitis has been feeling ok. He does use a cane or walking sticks for longer distance walking. The tightness in the foot is less, but still there. Alfredo will benefit from continued PT to progress his dynamic balance and LE strength while taking into account his chronic foot pain. Physical Therapy Plan Frequency and Duration Frequency of Treatment 2x/Week Duration of Treatment 8 weeks Plan of Care Start Date 03/20/19 Plan of Care End Date 05/15/19 Therapeutic Interventions Therapeutic Interventions Aquatic Therapy,Balance Training,Gait Training,Home Exercise Program,Joint Mobilizations,Manual Therapy, Neuromuscular Re-education, Self-Care/Home Management, Therapeutic Activities, Therapeutic Exercises Modalities Cold Pack/Ice Massage,Electric Stimulation,Ultrasound Next Visit Focus/Plan Next Note Type Treatment Note Next Visit Plan Alfredo has had a decrease in overall tolerance to exercise following his recent hospitilization. Continue to work on LE strengthening, balance.
--- NOTE | 2019-03-20 08:21 | PT.OPPOC ---
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) Visit Care Team Role Provider Type Indra Hammond MD Primary Care Provider Physician Specialty: Family Practice Address: [address] [place] [address] [address], [place], [address] Email: [email or web address] Jacobo Ochoa MD Attending Provider Non-Staff Family Provider Specialty: Emergency Medicine Address: [address] [place] [address] [address], [place], [address] Email: Plan Of Care PT-OP-T Assessment and Plan Start: 01/23/19 07:31 Freq: Status: Active Protocol: Document 03/20/19 07:30 AMB (Rec: 03/20/19 07:53 AMB [id number]) Physical Therapy Assessment Goals Three Impairment Hiking Short Term Goal (STG) Alfredo will hike for 8 miles over flat terrain with pain of 4/10 or less. 03/20: NOT MET STG Duration 4 weeks Retirement Goal (LTG) Alfredo will hike for 10 miles with 3,000' elevation gain with 4/10 pain or less. 03/20 : NOT MET LTG Duration 8 weeks Two Impairment Strength Retirement Goal (LTG) Alfredo will perform 10 full squats without UE support without LOB. LTG Duration MET One Impairment Balance Short Term Goal (STG) Alfredo will increase his single leg stance time to 15 seconds bilaterally. NOT MET STG Duration 4 weeks Assessment Summary Assessment Pt is still recovering from his hospitilization. He has not tried any hiking. He has been very fatigued. The plantar fasciitis has been feeling ok. He does use a cane or walking sticks for longer distance walking. The tightness in the foot is less, but still there. Alfredo will benefit from continued PT to progress his dynamic balance and LE strength while taking into account his chronic foot pain. Physical Therapy Plan Frequency and Duration Frequency of Treatment 2x/Week Duration of Treatment 8 weeks Plan of Care Start Date 03/20/19 Plan of Care End Date 05/15/19 Therapeutic Interventions Therapeutic Interventions Aquatic Therapy,Balance Training,Gait Training,Home Exercise Program,Joint Mobilizations,Manual Therapy, Neuromuscular Re-education, Self-Care/Home Management, Therapeutic Activities, Therapeutic Exercises Modalities Cold Pack/Ice Massage,Electric Stimulation,Ultrasound Next Visit Focus/Plan Next Note Type Treatment Note Next Visit Plan Alfredo has had a decrease in overall tolerance to exercise following his recent hospitilization. Continue to work on LE strengthening, balance. Plan of Care Dates Plan of Care Start Date 03/20/19 Plan of Care End Date 05/15/19
--- NOTE | 2019-03-27 08:10 | PT.OTN ---
Current Diagnoses Plantar fascial fibromatosis (03/27/19) Physical Therapy Treatment Note PT-OP-A Visit Information Start: 01/23/19 07:31 Freq: Status: Active Protocol: Document 03/27/19 07:30 AMB (Rec: 03/27/19 07:52 AMB [id number]) Out-Patient Physical Therapy Visit Information Visit Information Visit Type Treatment Note Visit Start Time 07:30 Visit Stop Time 08:15 Total Visit Minutes 45 Visit Number 10 PT-OP-B Current Condition Start: 01/23/19 07:31 Freq: Status: Active Protocol: Document 01/23/19 07:30 AMB (Rec: 01/23/19 08:38 AMB [id number]) Current Condition History of Current Condition Onset Date September 2017 Current Complaints Left heel pain that limits hiking. History of Current Condition Alfredo returns to physical therapy after extended PT that ended a few months ago. At the time of his discharge he was able to hike for about 2-3 miles over flat terrain without too much increasing pain. Now, he can hike for 6 miles with 1,000 foot elevation gain with 4/10 pain, but if he hikes longer or more intense elevation gain his pain increases significantly, and he feels overall his body requires 2-3 days of recovery time. His pain started after a fall from 3 feet directly onto his feet . His recovery has been complicated by his numerous other medical factors. Treatment Goals Patient/Caregiver Goals Hike [facility] Prior Functional Status Baseline Function- ADL's Independent Baseline Function- Mobility Independent Current Functional Impairments (Reported) Functional Limitations- ADL's difficulty hiking what he wants to hike Personal Factors Other Personal Factors That May Effect Pancreas issues to that limit Therapy/Recovery the amount of food/type of food Alfredo can eat- causes near constant nausea, has been losing weight, now maintaining at 155#, but that is less than his usual. Significant neuropathy in bilateral feet and legs. Venous transplant on the R, not going to do it on the L, so known poor venous return on the left leg. PT-OP-C Subjective Start: 01/23/19 07:31 Freq: Status: Active Protocol: Document 03/27/19 07:30 AMB (Rec: 03/27/19 07:52 AMB [id number]) OP-PT Subjective Patient Comments Patient Comments Pt is planning on starting hiking/walking again. Thinking of [place] [address], although that is paved. PT-OP-D Balance Start: 01/23/19 07:31 Freq: Status: Active Protocol: Document 01/23/19 07:30 AMB (Rec: 01/24/19 08:26 AMB [email or web address]) Balance Tests Single Limb Standing Single Limb- Right 10 seconds Single Limb- Left 10 seconds PT-OP-J Posture/Palpation/Skin Start: 01/23/19 07:31 Freq: Status: Active Protocol: Document 01/23/19 07:30 AMB (Rec: 01/24/19 08:26 AMB [email or web address]) Palpation Assessment Location One Palpation Location Left heel Palpation Findings Tenderness Palpation Details Significant tenderness with palpation at heel and at arch PT-OP-K Range of Motion Start: 01/23/19 07:31 Freq: Status: Active Protocol: Document 01/23/19 07:30 AMB (Rec: 01/24/19 08:26 AMB [email or web address]) Ankle and Foot Goniometric Range of Motion Ankle and Foot Right Passive Dorsiflexion with Knee Extended 5 Plantarflexion 32 Inversion 35 Eversion 25 Left Passive Dorsiflexion with Knee Extended 10 Plantarflexion 36 Inversion 30 Eversion 25 PT-OP-M Strength Start: 01/23/19 07:31 Freq: Status: Active Protocol: Document 01/23/19 07:30 AMB (Rec: 01/24/19 08:26 AMB [email or web address]) Ankle/Foot Strength Ankle and Foot Manual Muscle Testing Right Dorsiflexion (L4) 4+ Good+ Plantarflexion (S1) 4+ Good+ Inversion 4+ Good+ Eversion (S1) 4+ Good+ Left Dorsiflexion (L4) 4+ Good+ Plantarflexion (S1) 4+ Good+ Inversion 4 Good Eversion (S1) 4+ Good+ Toe Strength Toe Manual Muscle Testing Right Great Toe Flexion 4+ Good+ Comments toes 2-5 flexion 5/5 Left Great Toe Flexion 4 Good Comments toe flexion 2-5: 4/5 PT-OP-Q Treatments Start: 01/23/19 07:31 Freq: Status: Active Protocol: Document 03/27/19 07:30 AMB (Rec: 03/27/19 07:52 AMB [id number]) Cardio Equipment Recumbent Bicycle Duration (Minutes) 7 Resistance 5 Gym Equipment Shuttle Recovery Bilateral Squats Details 100 Shuttle Recovery Platform Stable Reps/Time 2x10 Unilateral Squats Resistance 50 Shuttle Recovery Platform Stable Reps/Time 2x10 Bilateral Heel Raises Resistance 75 Shuttle Recovery Platform Stable Reps/Time 2x10 Therapeutic Exercises Standing Exercises 5 Standing Exercise Name double leg heel raises Reps/Minutes 2x10 Comments on step 4 Standing Exercise Name hip extension Resistance #2 tband Reps/Minutes 2x10 2 Standing Exercise Name calf stretch Reps/Minutes 30x4 1 Standing Exercise Name lunge forward Reps/Minutes 2x10 Comments without UE support Neuro Re-Education Treatment Balance Activities 2 Details single leg stance Reps/Duration 10 seconds at a time, then needed UE support PT-OP-T Assessment and Plan Start: 01/23/19 07:31 Freq: Status: Active Protocol: Document 03/27/19 07:30 AMB (Rec: 03/27/19 07:52 AMB [id number]) Physical Therapy Assessment Assessment Summary Assessment Pt is doing a bit better now and he is hoping to get back to hiking, but encouraged pt to work incrementally. Physical Therapy Plan Next Visit Focus/Plan Next Note Type Treatment Note Next Visit Plan Progress functional strengthening, balance (will be difficult due to neuropathy ), flexibility and strength of foot intrinsics
--- NOTE | 2019-04-02 08:11 | PT.OTN ---
Current Diagnoses Plantar fascial fibromatosis (04/02/19) Physical Therapy Treatment Note PT-OP-A Visit Information Start: 01/23/19 07:31 Freq: Status: Active Protocol: Document 04/02/19 07:30 AMB (Rec: 04/02/19 08:11 AMB [id number]) Out-Patient Physical Therapy Visit Information Visit Information Visit Type Treatment Note Visit Start Time 07:30 Visit Stop Time 08:15 Total Visit Minutes 45 Visit Number 11 PT-OP-B Current Condition Start: 01/23/19 07:31 Freq: Status: Active Protocol: Document 01/23/19 07:30 AMB (Rec: 01/23/19 08:38 AMB [id number]) Current Condition History of Current Condition Onset Date September 2017 Current Complaints Left heel pain that limits hiking. History of Current Condition Alfredo returns to physical therapy after extended PT that ended a few months ago. At the time of his discharge he was able to hike for about 2-3 miles over flat terrain without too much increasing pain. Now, he can hike for 6 miles with 1,000 foot elevation gain with 4/10 pain, but if he hikes longer or more intense elevation gain his pain increases significantly, and he feels overall his body requires 2-3 days of recovery time. His pain started after a fall from 3 feet directly onto his feet . His recovery has been complicated by his numerous other medical factors. Treatment Goals Patient/Caregiver Goals Hike [facility] Prior Functional Status Baseline Function- ADL's Independent Baseline Function- Mobility Independent Current Functional Impairments (Reported) Functional Limitations- ADL's difficulty hiking what he wants to hike Personal Factors Other Personal Factors That May Effect Pancreas issues to that limit Therapy/Recovery the amount of food/type of food Alfredo can eat- causes near constant nausea, has been losing weight, now maintaining at 155#, but that is less than his usual. Significant neuropathy in bilateral feet and legs. Venous transplant on the R, not going to do it on the L, so known poor venous return on the left leg. PT-OP-C Subjective Start: 01/23/19 07:31 Freq: Status: Active Protocol: Document 04/02/19 07:30 AMB (Rec: 04/02/19 08:11 AMB [id number]) OP-PT Subjective Patient Comments Patient Comments Pt is tired this week, he has been having difficulty with his diet this week. He has not gone on any walks this week, but has been helping somebody move, not lifting over 20 pounds. PT-OP-D Balance Start: 01/23/19 07:31 Freq: Status: Active Protocol: Document 01/23/19 07:30 AMB (Rec: 01/24/19 08:26 AMB [email or web address]) Balance Tests Single Limb Standing Single Limb- Right 10 seconds Single Limb- Left 10 seconds PT-OP-J Posture/Palpation/Skin Start: 01/23/19 07:31 Freq: Status: Active Protocol: Document 01/23/19 07:30 AMB (Rec: 01/24/19 08:26 AMB [email or web address]) Palpation Assessment Location One Palpation Location Left heel Palpation Findings Tenderness Palpation Details Significant tenderness with palpation at heel and at arch PT-OP-K Range of Motion Start: 01/23/19 07:31 Freq: Status: Active Protocol: Document 01/23/19 07:30 AMB (Rec: 01/24/19 08:26 AMB [email or web address]) Ankle and Foot Goniometric Range of Motion Ankle and Foot Right Passive Dorsiflexion with Knee Extended 5 Plantarflexion 32 Inversion 35 Eversion 25 Left Passive Dorsiflexion with Knee Extended 10 Plantarflexion 36 Inversion 30 Eversion 25 PT-OP-M Strength Start: 01/23/19 07:31 Freq: Status: Active Protocol: Document 01/23/19 07:30 AMB (Rec: 01/24/19 08:26 AMB [email or web address]) Ankle/Foot Strength Ankle and Foot Manual Muscle Testing Right Dorsiflexion (L4) 4+ Good+ Plantarflexion (S1) 4+ Good+ Inversion 4+ Good+ Eversion (S1) 4+ Good+ Left Dorsiflexion (L4) 4+ Good+ Plantarflexion (S1) 4+ Good+ Inversion 4 Good Eversion (S1) 4+ Good+ Toe Strength Toe Manual Muscle Testing Right Great Toe Flexion 4+ Good+ Comments toes 2-5 flexion 5/5 Left Great Toe Flexion 4 Good Comments toe flexion 2-5: 4/5 PT-OP-Q Treatments Start: 01/23/19 07:31 Freq: Status: Active Protocol: Document 04/02/19 07:30 AMB (Rec: 04/02/19 08:11 AMB [id number]) Cardio Equipment Recumbent Bicycle Duration (Minutes) 7 Resistance 5 Gym Equipment Shuttle Recovery Bilateral Squats Details 100 Shuttle Recovery Platform Stable Reps/Time 2x10 Bilateral Heel Raises Resistance 100 Shuttle Recovery Platform Stable Reps/Time 2x10 Therapeutic Exercises Standing Exercises 5 Standing Exercise Name double leg heel raises Reps/Minutes 2x10 Comments on step 4 Standing Exercise Name hip extension Resistance #2 tband Reps/Minutes 2x10 2 Standing Exercise Name calf stretch Reps/Minutes 30x4 1 Standing Exercise Name lunge forward Reps/Minutes 2x10 Comments without UE support Neuro Re-Education Treatment Balance Activities 1 Details bosu ball- double leg stance Reps/Duration 2 min Comments EO- increased ankle motion PT-OP-T Assessment and Plan Start: 01/23/19 07:31 Freq: Status: Active Protocol: Document 04/02/19 07:30 AMB (Rec: 04/02/19 08:11 AMB [id number]) Physical Therapy Assessment Assessment Summary Assessment Pt was fatiguing easily today. Quads were the most tired with exercises today. Physical Therapy Plan Frequency and Duration Frequency of Treatment 2x/Week Duration of Treatment 8 weeks Plan of Care Start Date 03/20/19 Plan of Care End Date 05/15/19 Therapeutic Interventions Therapeutic Interventions Aquatic Therapy,Balance Training,Gait Training,Home Exercise Program,Joint Mobilizations,Manual Therapy, Neuromuscular Re-education, Self-Care/Home Management, Therapeutic Activities, Therapeutic Exercises Modalities Cold Pack/Ice Massage,Electric Stimulation,Ultrasound Next Visit Focus/Plan Next Note Type Treatment Note Next Visit Plan Progress functional strengthening, balance (will be difficult due to neuropathy ), flexibility and strength of foot intrinsics
--- NOTE | 2019-04-04 15:43 | PT.OTN ---
Current Diagnoses Plantar fascial fibromatosis (04/04/19) Physical Therapy Treatment Note PT-OP-A Visit Information Start: 01/23/19 07:31 Freq: Status: Active Protocol: Document 04/04/19 09:45 EG (Rec: 04/04/19 12:23 EG [email or web address]) Out-Patient Physical Therapy Visit Information Visit Information Visit Type Treatment Note Visit Start Time 09:00 Visit Stop Time 09:45 Total Visit Minutes 45 Visit Number 12 PT-OP-B Current Condition Start: 01/23/19 07:31 Freq: Status: Active Protocol: Document 01/23/19 07:30 AMB (Rec: 01/23/19 08:38 AMB [id number]) Current Condition History of Current Condition Onset Date September 2017 Current Complaints Left heel pain that limits hiking. History of Current Condition Alfredo returns to physical therapy after extended PT that ended a few months ago. At the time of his discharge he was able to hike for about 2-3 miles over flat terrain without too much increasing pain. Now, he can hike for 6 miles with 1,000 foot elevation gain with 4/10 pain, but if he hikes longer or more intense elevation gain his pain increases significantly, and he feels overall his body requires 2-3 days of recovery time. His pain started after a fall from 3 feet directly onto his feet . His recovery has been complicated by his numerous other medical factors. Treatment Goals Patient/Caregiver Goals Hike [facility] Prior Functional Status Baseline Function- ADL's Independent Baseline Function- Mobility Independent Current Functional Impairments (Reported) Functional Limitations- ADL's difficulty hiking what he wants to hike Personal Factors Other Personal Factors That May Effect Pancreas issues to that limit Therapy/Recovery the amount of food/type of food Alfredo can eat- causes near constant nausea, has been losing weight, now maintaining at 155#, but that is less than his usual. Significant neuropathy in bilateral feet and legs. Venous transplant on the R, not going to do it on the L, so known poor venous return on the left leg. PT-OP-C Subjective Start: 01/23/19 07:31 Freq: Status: Active Protocol: Document 04/04/19 09:45 EG (Rec: 04/04/19 12:23 EG [email or web address]) OP-PT Subjective Patient Comments Patient Comments Patient reported that he was more energetic today after getting a little more sleep. He did have more complaints of bottom of L foot that started to give him more pain the last couple days. Patient reported not being too sore after last PT session. He is planning on going for a walk later today because he has more energy. PT-OP-D Balance Start: 01/23/19 07:31 Freq: Status: Active Protocol: Document 01/23/19 07:30 AMB (Rec: 01/24/19 08:26 AMB [email or web address]) Balance Tests Single Limb Standing Single Limb- Right 10 seconds Single Limb- Left 10 seconds PT-OP-J Posture/Palpation/Skin Start: 01/23/19 07:31 Freq: Status: Active Protocol: Document 01/23/19 07:30 AMB (Rec: 01/24/19 08:26 AMB [email or web address]) Palpation Assessment Location One Palpation Location Left heel Palpation Findings Tenderness Palpation Details Significant tenderness with palpation at heel and at arch PT-OP-K Range of Motion Start: 01/23/19 07:31 Freq: Status: Active Protocol: Document 01/23/19 07:30 AMB (Rec: 01/24/19 08:26 AMB [email or web address]) Ankle and Foot Goniometric Range of Motion Ankle and Foot Right Passive Dorsiflexion with Knee Extended 5 Plantarflexion 32 Inversion 35 Eversion 25 Left Passive Dorsiflexion with Knee Extended 10 Plantarflexion 36 Inversion 30 Eversion 25 PT-OP-M Strength Start: 01/23/19 07:31 Freq: Status: Active Protocol: Document 01/23/19 07:30 AMB (Rec: 01/24/19 08:26 AMB [email or web address]) Ankle/Foot Strength Ankle and Foot Manual Muscle Testing Right Dorsiflexion (L4) 4+ Good+ Plantarflexion (S1) 4+ Good+ Inversion 4+ Good+ Eversion (S1) 4+ Good+ Left Dorsiflexion (L4) 4+ Good+ Plantarflexion (S1) 4+ Good+ Inversion 4 Good Eversion (S1) 4+ Good+ Toe Strength Toe Manual Muscle Testing Right Great Toe Flexion 4+ Good+ Comments toes 2-5 flexion 5/5 Left Great Toe Flexion 4 Good Comments toe flexion 2-5: 4/5 PT-OP-Q Treatments Start: 01/23/19 07:31 Freq: Status: Active Protocol: Document 04/04/19 09:45 EG (Rec: 04/04/19 12:29 EG [email or web address]) Cardio Equipment Recumbent Bicycle Duration (Minutes) 5 Resistance 7 Therapeutic Exercises Sitting Exercises 3 Sitting Exercise Name Tennis ball roll Equipment Used tennis ball Reps/Minutes 2 min Comments self roll on plantar fascia 2 Sitting Exercise Name shuttle leg press Side bilateral Resistance 125# Equipment Used shuttle Reps/Minutes 20x Comments had to reduce to 100# with last 5 reps Standing Exercises 7 Standing Exercise Name hamstring/gastrocnemius stretch Side bilateral Resistance none Equipment Used JOSE and hand rails Reps/Minutes 1 minute ea Comments very tight L hamstring 6 Standing Exercise Name Eccentric 1 legged calf strengthening Side bilateral Resistance none Equipment Used 6 inch step Reps/Minutes 10x ea Comments up with 2, down with 1 Manual Therapy Treatment Soft Tissue Mobilization 1 Body Location L foot plantar fascia Mobilization Type Myofascial Release Intensity/Depth Superficial Body Position Supine Comments Plantar fascia trap and stretch from posterior heel to plantar surface of 1st MTP joint Manual Techniques 1 Type PROM L ankle Body Location L ankle Body Position Supine Reps/Duration 30 sec hold Comments dorsiflexion, great toe extension, inversion, eversion PT-OP-T Assessment and Plan Start: 01/23/19 07:31 Freq: Status: Active Protocol: Document 04/04/19 09:45 EG (Rec: 04/04/19 12:23 EG [email or web address]) Physical Therapy Assessment Assessment Summary Assessment Patient did have more point tenderness in plantar fascia today due to decreased soft tossie length in this area as well as increased nerve sensitivity in this area. Patient will benefit from increased stretching of the great toe as well as gastrocnemius and soleus. Patient will also continue to benefit from posterior chain of LE strengthening. Patient also experienced soft tissue shortening in bilateral hamstrings and will benefit from incerased stretching of this area. Physical Therapy Plan Next Visit Focus/Plan Next Note Type Treatment Note Next Visit Plan Progress functional strengthening, balance (will be difficult due to neuropathy ), flexibility and strength of foot intrinsics as well as posterior chain including gluteal musculature as well as hamstrings and gastroc/soleus .
--- NOTE | 2019-04-17 12:15 | PT.OTN ---
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) Physical Therapy Treatment Note PT-OP-A Visit Information Start: 01/23/19 07:31 Freq: Status: Active Protocol: Document 04/17/19 08:55 EG (Rec: 04/17/19 09:47 EG [email or web address]) Out-Patient Physical Therapy Visit Information Visit Information Visit Type Treatment Note Visit Start Time 07:30 Visit Stop Time 08:15 Total Visit Minutes 45 Visit Number 13 Precautions Precautions Neuropathy PT-OP-B Current Condition Start: 01/23/19 07:31 Freq: Status: Active Protocol: Document 01/23/19 07:30 AMB (Rec: 01/23/19 08:38 AMB [id number]) Current Condition History of Current Condition Onset Date September 2017 Current Complaints Left heel pain that limits hiking. History of Current Condition Alfredo returns to physical therapy after extended PT that ended a few months ago. At the time of his discharge he was able to hike for about 2-3 miles over flat terrain without too much increasing pain. Now, he can hike for 6 miles with 1,000 foot elevation gain with 4/10 pain, but if he hikes longer or more intense elevation gain his pain increases significantly, and he feels overall his body requires 2-3 days of recovery time. His pain started after a fall from 3 feet directly onto his feet . His recovery has been complicated by his numerous other medical factors. Treatment Goals Patient/Caregiver Goals Hike [place] emergency department Prior Functional Status Baseline Function- ADL's Independent Baseline Function- Mobility Independent Current Functional Impairments (Reported) Functional Limitations- ADL's difficulty hiking what he wants to hike Personal Factors Other Personal Factors That May Effect Pancreas issues to that limit Therapy/Recovery the amount of food/type of food Alfredo can eat- causes near constant nausea, has been losing weight, now maintaining at 155#, but that is less than his usual. Significant neuropathy in bilateral feet and legs. Venous transplant on the R, not going to do it on the L, so known poor venous return on the left leg. PT-OP-C Subjective Start: 01/23/19 07:31 Freq: Status: Active Protocol: Document 04/17/19 08:55 EG (Rec: 04/17/19 08:58 EG [email or web address]) OP-PT Subjective Patient Comments Patient Comments Patient reported that he went to the ER yesterday due to dehydration after getting sick on Sunday. He is feeling a lot better today but does feel really weak. He is still feeling pain in his L foot and doesn't think it has changed much since last session. He hasn't been able to do much of his exercises because he wasn 't feeling good. PT-OP-D Balance Start: 01/23/19 07:31 Freq: Status: Active Protocol: Document 01/23/19 07:30 AMB (Rec: 01/24/19 08:26 AMB [email or web address]) Balance Tests Single Limb Standing Single Limb- Right 10 seconds Single Limb- Left 10 seconds PT-OP-J Posture/Palpation/Skin Start: 01/23/19 07:31 Freq: Status: Active Protocol: Document 01/23/19 07:30 AMB (Rec: 01/24/19 08:26 AMB [email or web address]) Palpation Assessment Location One Palpation Location Left heel Palpation Findings Tenderness Palpation Details Significant tenderness with palpation at heel and at arch PT-OP-K Range of Motion Start: 01/23/19 07:31 Freq: Status: Active Protocol: Document 04/17/19 08:55 EG (Rec: 04/17/19 09:56 EG [email or web address]) Toe Range of Motion Toe Left Great Toe MTP Extension Passive (degrees) 35 PT-OP-M Strength Start: 01/23/19 07:31 Freq: Status: Active Protocol: Document 01/23/19 07:30 AMB (Rec: 01/24/19 08:26 AMB [email or web address]) Ankle/Foot Strength Ankle and Foot Manual Muscle Testing Right Dorsiflexion (L4) 4+ Good+ Plantarflexion (S1) 4+ Good+ Inversion 4+ Good+ Eversion (S1) 4+ Good+ Left Dorsiflexion (L4) 4+ Good+ Plantarflexion (S1) 4+ Good+ Inversion 4 Good Eversion (S1) 4+ Good+ Toe Strength Toe Manual Muscle Testing Right Great Toe Flexion 4+ Good+ Comments toes 2-5 flexion 5/5 Left Great Toe Flexion 4 Good Comments toe flexion 2-5: 4/5 PT-OP-Q Treatments Start: 01/23/19 07:31 Freq: Status: Active Protocol: Document 04/17/19 08:55 EG (Rec: 04/17/19 09:55 EG [email or web address]) Cardio Equipment Recumbent Bicycle Duration (Minutes) 6 Resistance 8 Therapeutic Exercises Standing Exercises Dynamic Warm up Standing Exercise Name high knees, hamstring curls, hamstring stretch while walking Side bilateral Reps/Minutes 2x15 feet each exercise Comments unsteady on feet with hamstring stretch - increase MIGEL and keep toe down 7 Standing Exercise Name hamstring/gastrocnemius stretch Side bilateral Resistance none Equipment Used JOSE and hand rails Reps/Minutes 1 minute ea Comments very tight L hamstring 6 Standing Exercise Name Eccentric 1 legged calf strengthening Side bilateral Resistance none Equipment Used 6 inch step Reps/Minutes 10x ea Comments up with 2, down with 1 Manual Therapy Treatment Soft Tissue Mobilization 1 Body Location L foot plantar fascia Mobilization Type Myofascial Release Intensity/Depth Superficial Body Position Supine Comments Plantar fascia trap and stretch from posterior heel to plantar surface of 1st MTP joint Joint Mobilizations L great toe Joint 1st MTP joint Direction P to A Grade II Body Position Supine Reps/Duration 2x1 minute Comments work on great toe extension PT-OP-T Assessment and Plan Start: 01/23/19 07:31 Freq: Status: Active Protocol: Document 04/17/19 08:55 EG (Rec: 04/17/19 10:00 EG [email or web address]) Physical Therapy Assessment Assessment Summary Assessment Patient was fatigued today after an intense weekend of going to the ER and being sick . Patient was able to do some LE stretching and work on calf strengthening but did fatigue after a small amount of sets. Once patient's health is stable, an increase in activity tolerance is warranted to prepare the patient for increased hiking duration. Patient also continues to have plantar fascia tightening and will benefit from increased great toe stretching. Patient was given dynamic warm up to continue to stretch posterior chain in order to increase soft tissue length from in hamstrings, gastrocnemius, and plantar fascia. Patient should continue to work on balance training as well due to neuropathy impairments. Physical Therapy Plan Next Visit Focus/Plan Next Note Type Treatment Note Next Visit Plan Continue LE strengthening as tolerated. Increase posterior stretching. Assess plantar fascia and Great Toe stretching at home. Vanessa Sharma DPT, supervised all treatment performed by, and agreed with the plan of care, as performed by Mirela Orr, LOU.
--- NOTE | 2019-04-23 15:13 | PT.OTN ---
Current Diagnoses Plantar fascial fibromatosis (04/23/19) Physical Therapy Treatment Note PT-OP-A Visit Information Start: 01/23/19 07:31 Freq: Status: Active Protocol: Document 04/23/19 13:16 EG (Rec: 04/23/19 13:27 EG [email or web address]) Out-Patient Physical Therapy Visit Information Visit Information Visit Type Treatment Note Visit Start Time 08:15 Visit Stop Time 09:00 Total Visit Minutes 45 Visit Number 14 PT-OP-B Current Condition Start: 01/23/19 07:31 Freq: Status: Active Protocol: Document 01/23/19 07:30 AMB (Rec: 01/23/19 08:38 AMB [id number]) Current Condition History of Current Condition Onset Date September 2017 Current Complaints Left heel pain that limits hiking. History of Current Condition Alfredo returns to physical therapy after extended PT that ended a few months ago. At the time of his discharge he was able to hike for about 2-3 miles over flat terrain without too much increasing pain. Now, he can hike for 6 miles with 1,000 foot elevation gain with 4/10 pain, but if he hikes longer or more intense elevation gain his pain increases significantly, and he feels overall his body requires 2-3 days of recovery time. His pain started after a fall from 3 feet directly onto his feet . His recovery has been complicated by his numerous other medical factors. Treatment Goals Patient/Caregiver Goals Hike [facility] Prior Functional Status Baseline Function- ADL's Independent Baseline Function- Mobility Independent Current Functional Impairments (Reported) Functional Limitations- ADL's difficulty hiking what he wants to hike Personal Factors Other Personal Factors That May Effect Pancreas issues to that limit Therapy/Recovery the amount of food/type of food Alfredo can eat- causes near constant nausea, has been losing weight, now maintaining at 155#, but that is less than his usual. Significant neuropathy in bilateral feet and legs. Venous transplant on the R, not going to do it on the L, so known poor venous return on the left leg. PT-OP-C Subjective Start: 01/23/19 07:31 Freq: Status: Active Protocol: Document 04/23/19 13:16 EG (Rec: 04/23/19 13:27 EG [email or web address]) OP-PT Subjective Patient Comments Patient Comments Patient reports that he is feeling really good today. He was able to walk 4.5 miles every day this past week and has minimal pain in his foot but it is bareable. He has been doing his great toe extension stretch at home. PT-OP-D Balance Start: 01/23/19 07:31 Freq: Status: Active Protocol: Document 01/23/19 07:30 AMB (Rec: 01/24/19 08:26 AMB [email or web address]) Balance Tests Single Limb Standing Single Limb- Right 10 seconds Single Limb- Left 10 seconds PT-OP-J Posture/Palpation/Skin Start: 01/23/19 07:31 Freq: Status: Active Protocol: Document 01/23/19 07:30 AMB (Rec: 01/24/19 08:26 AMB [email or web address]) Palpation Assessment Location One Palpation Location Left heel Palpation Findings Tenderness Palpation Details Significant tenderness with palpation at heel and at arch PT-OP-K Range of Motion Start: 01/23/19 07:31 Freq: Status: Active Protocol: Document 04/17/19 08:55 EG (Rec: 04/17/19 09:56 EG [email or web address]) Toe Range of Motion Toe Left Great Toe MTP Extension Passive (degrees) 35 PT-OP-M Strength Start: 01/23/19 07:31 Freq: Status: Active Protocol: Document 01/23/19 07:30 AMB (Rec: 01/24/19 08:26 AMB [email or web address]) Ankle/Foot Strength Ankle and Foot Manual Muscle Testing Right Dorsiflexion (L4) 4+ Good+ Plantarflexion (S1) 4+ Good+ Inversion 4+ Good+ Eversion (S1) 4+ Good+ Left Dorsiflexion (L4) 4+ Good+ Plantarflexion (S1) 4+ Good+ Inversion 4 Good Eversion (S1) 4+ Good+ Toe Strength Toe Manual Muscle Testing Right Great Toe Flexion 4+ Good+ Comments toes 2-5 flexion 5/5 Left Great Toe Flexion 4 Good Comments toe flexion 2-5: 4/5 PT-OP-Q Treatments Start: 01/23/19 07:31 Freq: Status: Active Protocol: Document 04/23/19 13:16 EG (Rec: 04/23/19 13:27 EG [email or web address]) Cardio Equipment Recumbent Bicycle Duration (Minutes) 6 Resistance 6 Gym Equipment Shuttle Recovery Unilateral heel raise Details Unilateral heel raise Resistance 62# Shuttle Recovery Platform Stable Reps/Time 10x each side Bilateral Squats Details Bilateral squats Resistance 100# Shuttle Recovery Platform Unstable Reps/Time 15x Unilateral Squats Details Unilateral Squats Resistance 62# Shuttle Recovery Platform Unstable Reps/Time 15x each side - increased work for L leg Therapeutic Exercises Standing Exercises 7 Standing Exercise Name hamstring/gastrocnemius stretch Side bilateral Resistance none Equipment Used JOSE and hand rails Reps/Minutes 1 minute ea Comments very tight L hamstring Therapeutic Activity Therapeutic Activity Balance training Name Balance training Reps/Minutes [address] Comments Used balance board and performed 1 min A/P and 1 min L Stair Training Name Stair Training A/P/L Reps/Minutes 1 min each side of constant step Comments used 1st step of stair set. Performed with both R and L leg leading. Lateral step done 15x each side. PT-OP-T Assessment and Plan Start: 01/23/19 07:31 Freq: Status: Active Protocol: Document 04/23/19 13:16 EG (Rec: 04/23/19 13:27 EG [email or web address]) Physical Therapy Assessment Assessment Summary Assessment Patient tolerated LE strength training well today. Patient has been increasing ambulation outside of clinic and would like to perform increased elevation during hikes. Plan to continue balance training and LE strength endurance to prepare for harder hikes outside with safety and stability. Physical Therapy Plan Next Visit Focus/Plan Next Note Type Treatment Note Next Visit Plan Continue LE strengthening as tolerated. Continue balance training and begin to have patient train on treadmill with elevation to increase tolerance when walking outside . Vanessa Sharma DPT, supervised all treatment performed by, and agreed with the plan of care, as performed by LOU Roth.
--- NOTE | 2019-04-25 12:47 | PT.OTN ---
Current Diagnoses Plantar fascial fibromatosis (04/25/19) Physical Therapy Treatment Note PT-OP-A Visit Information Start: 01/23/19 07:31 Freq: Status: Active Protocol: Document 04/25/19 10:37 EG (Rec: 04/25/19 10:41 EG [email or web address]) Out-Patient Physical Therapy Visit Information Visit Information Visit Type Treatment Note Visit Start Time 08:15 Visit Stop Time 09:00 Total Visit Minutes 45 Visit Number 15 PT-OP-B Current Condition Start: 01/23/19 07:31 Freq: Status: Active Protocol: Document 01/23/19 07:30 AMB (Rec: 01/23/19 08:38 AMB [id number]) Current Condition History of Current Condition Onset Date September 2017 Current Complaints Left heel pain that limits hiking. History of Current Condition Alfredo returns to physical therapy after extended PT that ended a few months ago. At the time of his discharge he was able to hike for about 2-3 miles over flat terrain without too much increasing pain. Now, he can hike for 6 miles with 1,000 foot elevation gain with 4/10 pain, but if he hikes longer or more intense elevation gain his pain increases significantly, and he feels overall his body requires 2-3 days of recovery time. His pain started after a fall from 3 feet directly onto his feet . His recovery has been complicated by his numerous other medical factors. Treatment Goals Patient/Caregiver Goals Hike [facility] Prior Functional Status Baseline Function- ADL's Independent Baseline Function- Mobility Independent Current Functional Impairments (Reported) Functional Limitations- ADL's difficulty hiking what he wants to hike Personal Factors Other Personal Factors That May Effect Pancreas issues to that limit Therapy/Recovery the amount of food/type of food Alfredo can eat- causes near constant nausea, has been losing weight, now maintaining at 155#, but that is less than his usual. Significant neuropathy in bilateral feet and legs. Venous transplant on the R, not going to do it on the L, so known poor venous return on the left leg. PT-OP-C Subjective Start: 01/23/19 07:31 Freq: Status: Active Protocol: Document 04/25/19 10:37 EG (Rec: 04/25/19 10:41 EG [email or web address]) OP-PT Subjective Patient Comments Patient Comments Patient reported that he was feeling good today. His legs were very fatigued after last PT session but was able to do his 4 mile hike without any issue. He has been thinking about striking with his heel when he walks and is planning on doing an increased elevation hike today. PT-OP-D Balance Start: 01/23/19 07:31 Freq: Status: Active Protocol: Document 01/23/19 07:30 AMB (Rec: 01/24/19 08:26 AMB [email or web address]) Balance Tests Single Limb Standing Single Limb- Right 10 seconds Single Limb- Left 10 seconds PT-OP-J Posture/Palpation/Skin Start: 01/23/19 07:31 Freq: Status: Active Protocol: Document 01/23/19 07:30 AMB (Rec: 01/24/19 08:26 AMB [email or web address]) Palpation Assessment Location One Palpation Location Left heel Palpation Findings Tenderness Palpation Details Significant tenderness with palpation at heel and at arch PT-OP-K Range of Motion Start: 01/23/19 07:31 Freq: Status: Active Protocol: Document 04/17/19 08:55 EG (Rec: 04/17/19 09:56 EG [email or web address]) Toe Range of Motion Toe Left Great Toe MTP Extension Passive (degrees) 35 PT-OP-M Strength Start: 01/23/19 07:31 Freq: Status: Active Protocol: Document 01/23/19 07:30 AMB (Rec: 01/24/19 08:26 AMB [email or web address]) Ankle/Foot Strength Ankle and Foot Manual Muscle Testing Right Dorsiflexion (L4) 4+ Good+ Plantarflexion (S1) 4+ Good+ Inversion 4+ Good+ Eversion (S1) 4+ Good+ Left Dorsiflexion (L4) 4+ Good+ Plantarflexion (S1) 4+ Good+ Inversion 4 Good Eversion (S1) 4+ Good+ Toe Strength Toe Manual Muscle Testing Right Great Toe Flexion 4+ Good+ Comments toes 2-5 flexion 5/5 Left Great Toe Flexion 4 Good Comments toe flexion 2-5: 4/5 PT-OP-Q Treatments Start: 01/23/19 07:31 Freq: Status: Active Protocol: Document 04/25/19 10:37 EG (Rec: 04/25/19 12:07 EG [email or web address]) Cardio Equipment Recumbent Bicycle Duration (Minutes) 3 Resistance 6 Treadmill Duration (Minutes) 5 Speed 2.5 Incline 6.5 Therapeutic Exercises Supine Exercises 7 Supine Exercise Name IT band/Piriformis/Gluteal stretch Side bilateral Equipment Used strap Reps/Minutes 1 min each side Standing Exercises 7 Standing Exercise Name hamstring/quadriceps/ gastrocnemius stretch Side bilateral Resistance none Equipment Used JOSE and hand rails Reps/Minutes 2x 1 minute ea Comments increased tension on L side 5 Standing Exercise Name Squat Resistance body weight Equipment Used handrail Reps/Minutes 20x/10x Comments cue for placing weight through heels - bent knees to about 90 degrees 4 Standing Exercise Name Sideways walking Resistance red band 1st set Equipment Used red band Reps/Minutes [address] 2x through Comments red band used for first set of hip abductor strengthening PT-OP-T Assessment and Plan Start: 01/23/19 07:31 Freq: Status: Active Protocol: Document 04/25/19 10:37 EG (Rec: 04/25/19 12:07 EG [email or web address]) Physical Therapy Assessment Assessment Summary Assessment Patient has been able to increase intensity of therapeutic exercise without fatiguing too quickly more recently. He is wanting to increase suration and elevation of daily hikes so continual LE strengthening and endurance training is neccesary to prepare for this activity. Patient has also been benefitting from increased LE stretching of posterior chain and should continue this activity to facilitate greater ROM when needed during hiking. Physical Therapy Plan Next Visit Focus/Plan Next Note Type Treatment Note Next Visit Plan Continue with elevation walking on treadmill. Increase balance training. Try squats on air-x pad as well as step ups on to bosu ball. IVanessa DPT, supervised all treatment performed by, and agreed with the plan of care, as performed by Mirela Orr, LOU.
--- NOTE | 2019-05-15 15:37 | PT.OTN ---
Current Diagnoses Plantar fascial fibromatosis (05/15/19) Physical Therapy Treatment Note PT-OP-A Visit Information Start: 01/23/19 07:31 Freq: Status: Active Protocol: Document 05/15/19 07:30 EG (Rec: 05/15/19 11:47 EG [email or web address]) Out-Patient Physical Therapy Visit Information Visit Information Visit Type Treatment Note Visit Start Time 07:30 Visit Stop Time 08:15 Total Visit Minutes 45 Visit Number 16 PT-OP-B Current Condition Start: 01/23/19 07:31 Freq: Status: Active Protocol: Document 01/23/19 07:30 AMB (Rec: 01/23/19 08:38 AMB [id number]) Current Condition History of Current Condition Onset Date September 2017 Current Complaints Left heel pain that limits hiking. History of Current Condition Alfredo returns to physical therapy after extended PT that ended a few months ago. At the time of his discharge he was able to hike for about 2-3 miles over flat terrain without too much increasing pain. Now, he can hike for 6 miles with 1,000 foot elevation gain with 4/10 pain, but if he hikes longer or more intense elevation gain his pain increases significantly, and he feels overall his body requires 2-3 days of recovery time. His pain started after a fall from 3 feet directly onto his feet . His recovery has been complicated by his numerous other medical factors. Treatment Goals Patient/Caregiver Goals Hike [facility], [place] Prior Functional Status Baseline Function- ADL's Independent Baseline Function- Mobility Independent Current Functional Impairments (Reported) Functional Limitations- ADL's difficulty hiking what he wants to hike Personal Factors Other Personal Factors That May Effect Pancreas issues to that limit Therapy/Recovery the amount of food/type of food Alfredo can eat- causes near constant nausea, has been losing weight, now maintaining at 155#, but that is less than his usual. Significant neuropathy in bilateral feet and legs. Venous transplant on the R, not going to do it on the L, so known poor venous return on the left leg. PT-OP-C Subjective Start: 01/23/19 07:31 Freq: Status: Active Protocol: Document 05/15/19 07:30 EG (Rec: 05/15/19 11:47 EG [email or web address]) OP-PT Subjective Patient Comments Patient Comments Patient reported that he went for an 8.5 mile hike last week and it completely wiped him out. He had adrenaline while walking that kept him going but it bothered his foot more after the hike where he was barely able to walk. He did get sick last night and a few nights ago but knows it is because of something he ate. He is really wanting to get back in to the forest. PT-OP-D Balance Start: 01/23/19 07:31 Freq: Status: Active Protocol: Document 01/23/19 07:30 AMB (Rec: 01/24/19 08:26 AMB [email or web address]) Balance Tests Single Limb Standing Single Limb- Right 10 seconds Single Limb- Left 10 seconds PT-OP-J Posture/Palpation/Skin Start: 01/23/19 07:31 Freq: Status: Active Protocol: Document 01/23/19 07:30 AMB (Rec: 01/24/19 08:26 AMB [email or web address]) Palpation Assessment Location One Palpation Location Left heel Palpation Findings Tenderness Palpation Details Significant tenderness with palpation at heel and at arch PT-OP-K Range of Motion Start: 01/23/19 07:31 Freq: Status: Active Protocol: Document 04/17/19 08:55 EG (Rec: 04/17/19 09:56 EG [email or web address]) Toe Range of Motion Toe Left Great Toe MTP Extension Passive (degrees) 35 PT-OP-M Strength Start: 01/23/19 07:31 Freq: Status: Active Protocol: Document 01/23/19 07:30 AMB (Rec: 01/24/19 08:26 AMB [email or web address]) Ankle/Foot Strength Ankle and Foot Manual Muscle Testing Right Dorsiflexion (L4) 4+ Good+ Plantarflexion (S1) 4+ Good+ Inversion 4+ Good+ Eversion (S1) 4+ Good+ Left Dorsiflexion (L4) 4+ Good+ Plantarflexion (S1) 4+ Good+ Inversion 4 Good Eversion (S1) 4+ Good+ Toe Strength Toe Manual Muscle Testing Right Great Toe Flexion 4+ Good+ Comments toes 2-5 flexion 5/5 Left Great Toe Flexion 4 Good Comments toe flexion 2-5: 4/5 PT-OP-Q Treatments Start: 01/23/19 07:31 Freq: Status: Active Protocol: Document 05/15/19 07:30 EG (Rec: 05/15/19 11:47 EG [email or web address]) Cardio Equipment Recumbent Bicycle Duration (Minutes) 6 Resistance 6 Therapeutic Exercises Standing Exercises 7 Standing Exercise Name hamstring/gastrocnemius stretch Side bilateral Resistance none Equipment Used JOSE and hand rails Reps/Minutes 2x 30 minute ea Comments patient enjoyed stretch 6 Standing Exercise Name hip and knee flexion with contralateral hip flexion stretch Side bilateral Equipment Used stairs Reps/Minutes 10x each side Comments foot on stair holding on to handrail with alternating bend in hip/knee 5 Standing Exercise Name Heel Raise off stair Side bilateral Equipment Used stair rail to hold on to; 8 inch step Reps/Minutes 10x Manual Therapy Treatment Soft Tissue Mobilization 1 Body Location Plantar Fascia Mobilization Type Myofascial Release Intensity/Depth Superficial Body Position Supine Comments Patient had increased tension throughout plantar fascia and on lateral side of heel Joint Mobilizations L great toe Joint L Great Toe Direction P>A Grade II Body Position Supine Comments paired with stretching of the joint in to extension Manual Techniques 1 Type PROM of dorsiflexion Body Location L talocrural joint Body Position Supine Comments Patient felt a release of tension with sustained DF stretch PT-OP-T Assessment and Plan Start: 01/23/19 07:31 Freq: Status: Active Protocol: Document 05/15/19 07:30 EG (Rec: 05/15/19 11:47 EG [email or web address]) Physical Therapy Assessment Assessment Summary Assessment Patient tolerated treatment fair today. He easily fatigues due to medical complications and was not able to complete a full strengthening treatment due to this fatigue. Patient does have increased tension in the plantar fascia and should continue with stretching of the gastroc/soleus and full posterior chain as well as strengthening the LE. Physical Therapy Plan Frequency and Duration Frequency of Treatment 2x/Week Duration of Treatment 8 weeks Plan of Care Start Date 03/20/19 Plan of Care End Date 05/15/19 Next Visit Focus/Plan Next Note Type Progress Note Next Visit Plan Check in on goals and perform progress note I, Vanessa Phoenix DPT, supervised all treatment performed by, and agreed with the plan of care, as performed by Mirela Orr, LOU.
--- NOTE | 2019-05-22 14:17 | PT.OTN ---
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) Physical Therapy Treatment Note PT-OP-A Visit Information Start: 01/23/19 07:31 Freq: Status: Active Protocol: Document 05/22/19 07:30 EG (Rec: 05/22/19 11:57 EG [email or web address]) Out-Patient Physical Therapy Visit Information Visit Information Visit Type Progress Note Visit Start Time 07:30 Visit Stop Time 08:12 Total Visit Minutes 42 Visit Number 17 PT-OP-B Current Condition Start: 01/23/19 07:31 Freq: Status: Active Protocol: Document 01/23/19 07:30 AMB (Rec: 01/23/19 08:38 AMB [id number]) Current Condition History of Current Condition Onset Date September 2017 Current Complaints Left heel pain that limits hiking. History of Current Condition Alfredo returns to physical therapy after extended PT that ended a few months ago. At the time of his discharge he was able to hike for about 2-3 miles over flat terrain without too much increasing pain. Now, he can hike for 6 miles with 1,000 foot elevation gain with 4/10 pain, but if he hikes longer or more intense elevation gain his pain increases significantly, and he feels overall his body requires 2-3 days of recovery time. His pain started after a fall from 3 feet directly onto his feet . His recovery has been complicated by his numerous other medical factors. Treatment Goals Patient/Caregiver Goals Hike [facility] Prior Functional Status Baseline Function- ADL's Independent Baseline Function- Mobility Independent Current Functional Impairments (Reported) Functional Limitations- ADL's difficulty hiking what he wants to hike Personal Factors Other Personal Factors That May Effect Pancreas issues to that limit Therapy/Recovery the amount of food/type of food Alfredo can eat- causes near constant nausea, has been losing weight, now maintaining at 155#, but that is less than his usual. Significant neuropathy in bilateral feet and legs. Venous transplant on the R, not going to do it on the L, so known poor venous return on the left leg. PT-OP-C Subjective Start: 01/23/19 07:31 Freq: Status: Active Protocol: Document 05/22/19 07:30 EG (Rec: 05/22/19 11:57 EG [email or web address]) OP-PT Subjective Patient Comments Patient Comments Patient reported that he was feeling tired today. He hasn't been on any large hikes since a couple weeks ago and feels like he is still a little worn down from that. He still feels some pain in the L heel. PT-OP-D Balance Start: 01/23/19 07:31 Freq: Status: Active Protocol: Document 01/23/19 07:30 AMB (Rec: 01/24/19 08:26 AMB [email or web address]) Balance Tests Single Limb Standing Single Limb- Right 10 seconds Single Limb- Left 10 seconds PT-OP-J Posture/Palpation/Skin Start: 01/23/19 07:31 Freq: Status: Active Protocol: Document 01/23/19 07:30 AMB (Rec: 01/24/19 08:26 AMB [email or web address]) Palpation Assessment Location One Palpation Location Left heel Palpation Findings Tenderness Palpation Details Significant tenderness with palpation at heel and at arch PT-OP-K Range of Motion Start: 01/23/19 07:31 Freq: Status: Active Protocol: Document 05/22/19 07:30 EG (Rec: 05/22/19 11:58 EG [email or web address]) Ankle and Foot Goniometric Range of Motion Ankle and Foot Left Passive Dorsiflexion with Knee Extended 10 Toe Range of Motion Toe Left Great Toe Toe ROM WFL Yes MTP Extension Passive (degrees) 45 PT-OP-M Strength Start: 01/23/19 07:31 Freq: Status: Active Protocol: Document 01/23/19 07:30 AMB (Rec: 01/24/19 08:26 AMB [email or web address]) Ankle/Foot Strength Ankle and Foot Manual Muscle Testing Right Dorsiflexion (L4) 4+ Good+ Plantarflexion (S1) 4+ Good+ Inversion 4+ Good+ Eversion (S1) 4+ Good+ Left Dorsiflexion (L4) 4+ Good+ Plantarflexion (S1) 4+ Good+ Inversion 4 Good Eversion (S1) 4+ Good+ Toe Strength Toe Manual Muscle Testing Right Great Toe Flexion 4+ Good+ Comments toes 2-5 flexion 5/5 Left Great Toe Flexion 4 Good Comments toe flexion 2-5: 4/5 PT-OP-Q Treatments Start: 01/23/19 07:31 Freq: Status: Active Protocol: Document 05/22/19 07:30 EG (Rec: 05/22/19 11:57 EG [email or web address]) Cardio Equipment Recumbent Bicycle Duration (Minutes) 6 Resistance 8 Gym Equipment Shuttle Recovery Other- 1 Details Bilateral Squats Resistance 100# Shuttle Recovery Platform Unstable Reps/Time 1x15 Bilateral Squats Details Bilateral Squats Resistance 100# Shuttle Recovery Platform Stable Reps/Time 2x15 with rest time Therapeutic Exercises Standing Exercises 7 Standing Exercise Name hamstring/gastrocnemius/soleus stretch Side bilateral Resistance none Equipment Used JOSE and hand rails Reps/Minutes 2x 30 minute ea Comments patient enjoyed stretch of HS Manual Therapy Treatment Soft Tissue Mobilization 1 Body Location Plantar Fascia Mobilization Type Myofascial Release Intensity/Depth Superficial Body Position Supine Comments Patient had increased pressure on medial posterior heel Manual Techniques 1 Type PROM of dorsiflexion Body Location L talocrural joint Body Position Supine Comments Patient felt a release of tension with sustained DF stretch Neuro Re-Education Treatment Balance Activities 2 Details SLS, EO/EC Surface carpet Equipment Railing for balance when needed Reps/Duration 2 sets for as long as he could Comments able to hold ~30 seconds each leg. LOB when eyes closed after 3 seconds on bilateral sides PT-OP-T Assessment and Plan Start: 01/23/19 07:31 Freq: Status: Active Protocol: Document 05/22/19 07:30 EG (Rec: 05/22/19 11:57 EG [email or web address]) Physical Therapy Assessment Goals Four Impairment ROM Revenue Liaison Goal (LTG) Patient will continue to increase 1st MTP ROM to 60 degrees in 6 weeks. LTG Duration 6 weeks Three Impairment Hiking Short Term Goal (STG) Alfredo will hike for 8 miles over flat terrain with pain of 4/10 or less. 03/20: NOT MET 05/22/2019: Patient has hiked 8 .5 miles but had increased pain 20 min after hike. Reported a 7/10 pain that decreased the next day. Continue working towards hiking goal. STG Duration 4 weeks Revenue Liaison Goal (LTG) Alfredo will hike for 10 miles with 3,000' elevation gain with 4/10 pain or less. 03/20 : NOT MET 05/22/2019: Patient has not been able to meet this distance or elevation goal. Continue working towards goal. LTG Duration 8 weeks Two Impairment Strength Revenue Liaison Goal (LTG) Alfredo will perform 10 full squats without UE support without LOB. 05/22/2019: Patient still able to perform. Can do 3x15 of leg press with 100# of resistance . LTG Duration MET One Impairment Balance Short Term Goal (STG) Alfredo will increase his single leg stance time to 15 seconds bilaterally. NOT MET 05/22/2019: MET. Patient will increase his single let stance time to 15 seconds bilaterally on unstable surface in 4 weeks. STG Duration 4 weeks Progress Towards Goals Progress Towards Goals Slow Progress due to Medical Issues Progress Comments Updated comments above Assessment Summary Assessment Patient has steadily worked towards hiking endurance goals but had an increase of heel pain and irritation when he hiked longer distance than he was used to. He was able to hike 8 miles, but still struggles with pain management after this increased load. Patient should continue to benefit from skilled therapy to increase load tolerance of the plantar fascia as well as LE strength and endurance in order to allow patient ability to increase tolerance to longer and more strenuous hikes. Patient has had multiple medical issues during therapy which has set back progress with LE strengthening . Patient is vision dependent with balance and has decreased somatosensory feedback. Patient will benefit from continual balance training on unstable surfaces to increase safety when hiking on multiple terrain. Physical Therapy Plan Frequency and Duration Frequency of Treatment 1x/Week Duration of Treatment 6 weeks Plan of Care Start Date 05/22/19 Plan of Care End Date 07/03/19 Therapeutic Interventions Therapeutic Interventions Aquatic Therapy,Balance Training,Gait Training,Home Exercise Program,Joint Mobilizations,Manual Therapy, Neuromuscular Re-education, Self-Care/Home Management, Therapeutic Activities, Therapeutic Exercises Modalities Cold Pack/Ice Massage,Electric Stimulation,Ultrasound Next Visit Focus/Plan Next Note Type Treatment Note Next Visit Plan Continue with LE strengthening and 1 MTP mobilizations. Begin balance training on unstable surfaces. Vanessa Sharma DPT, supervised all treatment performed by, and agreed with the plan of care, as performed by Mirela Orr, LOU.
--- NOTE | 2019-05-22 14:18 | PT.OPPOC ---
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) Visit Care Team Role Provider Type Indra Hammond MD Primary Care Provider Physician Specialty: Family Practice Address: [address] [place] [address] [address], [address] Email: [email or web address] [email or web address] Ochoa MD Attending Provider Non-Staff Family Provider Specialty: Emergency Medicine Address: [address] [place] [address] [address], [place], [address] Email: Plan Of Care PT-OP-T Assessment and Plan Start: 01/23/19 07:31 Freq: Status: Active Protocol: Document 05/22/19 07:30 EG (Rec: 05/22/19 11:57 EG [email or web address]) Physical Therapy Assessment Goals Four Impairment ROM Sharepoint Application Architect Goal (LTG) Patient will continue to increase 1st MTP ROM to 60 degrees in 6 weeks. LTG Duration 6 weeks Three Impairment Hiking Short Term Goal (STG) Alfredo will hike for 8 miles over flat terrain with pain of 4/10 or less. 03/20: NOT MET 05/22/2019: Patient has hiked 8 .5 miles but had increased pain 20 min after hike. Reported a 7/10 pain that decreased the next day. Continue working towards hiking goal. STG Duration 4 weeks Sharepoint Application Architect Goal (LTG) Alfredo will hike for 10 miles with 3,000' elevation gain with 4/10 pain or less. 03/20 : NOT MET 05/22/2019: Patient has not been able to meet this distance or elevation goal. Continue working towards goal. LTG Duration 8 weeks Two Impairment Strength Sharepoint Application Architect Goal (LTG) Alfredo will perform 10 full squats without UE support without LOB. 05/22/2019: Patient still able to perform. Can do 3x15 of leg press with 100# of resistance . LTG Duration MET One Impairment Balance Short Term Goal (STG) Alfredo will increase his single leg stance time to 15 seconds bilaterally. 05/22/2019: MET. Patient will increase his single let stance time to 15 seconds bilaterally on unstable surface in 4 weeks. STG Duration 4 weeks Progress Towards Goals Progress Towards Goals Slow Progress due to Medical Issues Progress Comments Updated comments above Assessment Summary Assessment Patient has steadily worked towards hiking endurance goals but had an increase of heel pain and irritation when he hiked longer distance than he was used to. He was able to hike 8 miles, but still struggles with pain management after this increased load. Patient should continue to benefit from skilled therapy to increase load tolerance of the plantar fascia as well as LE strength and endurance in order to allow patient ability to increase tolerance to longer and more strenuous hikes. Patient has had multiple medical issues during therapy which has set back progress with LE strengthening . Patient is vision dependent with balance and has decreased somatosensory feedback. Patient will benefit from continual balance training on unstable surfaces to increase safety when hiking on multiple terrain. Physical Therapy Plan Frequency and Duration Frequency of Treatment 1x/Week Duration of Treatment 6 weeks Plan of Care Start Date 05/22/19 Plan of Care End Date 07/03/19 Therapeutic Interventions Therapeutic Interventions Aquatic Therapy,Balance Training,Gait Training,Home Exercise Program,Joint Mobilizations,Manual Therapy, Neuromuscular Re-education, Self-Care/Home Management, Therapeutic Activities, Therapeutic Exercises Modalities Cold Pack/Ice Massage,Electric Stimulation,Ultrasound Next Visit Focus/Plan Next Note Type Treatment Note Next Visit Plan Continue with LE strengthening and 1 MTP mobilizations. Begin balance training on unstable surfaces. Plan of Care Dates Plan of Care Start Date 05/22/19 Plan of Care End Date 07/03/19 IVanessa DPT, supervised all treatment performed by, and agreed with the plan of care, as performed by Mirela Orr, LOU. Electronically Signed by: Vanessa Phoenix, PT 05/22/19 [id number] Please Sign and Return: I have reviewed this Plan of Care and certify that the skilled therapy services above are required to meet the patient?s needs. Physician Signature Date Printed Name and Credentials Clinical Instructor Signature Printed Name and Credentials
--- NOTE | 2019-05-29 09:42 | PT.OTN ---
Current Diagnoses Plantar fascial fibromatosis (05/29/19) Physical Therapy Treatment Note PT-OP-A Visit Information Start: 01/23/19 07:31 Freq: Status: Active Protocol: Document 05/29/19 07:30 EG (Rec: 05/29/19 07:36 EG [id number]) Out-Patient Physical Therapy Visit Information Visit Information Visit Type Treatment Note Visit Start Time 07:30 Visit Stop Time 08:10 Total Visit Minutes 40 Visit Number 18 PT-OP-B Current Condition Start: 01/23/19 07:31 Freq: Status: Active Protocol: Document 01/23/19 07:30 AMB (Rec: 01/23/19 08:38 AMB [id number]) Current Condition History of Current Condition Onset Date September 2017 Current Complaints Left heel pain that limits hiking. History of Current Condition Alfredo returns to physical therapy after extended PT that ended a few months ago. At the time of his discharge he was able to hike for about 2-3 miles over flat terrain without too much increasing pain. Now, he can hike for 6 miles with 1,000 foot elevation gain with 4/10 pain, but if he hikes longer or more intense elevation gain his pain increases significantly, and he feels overall his body requires 2-3 days of recovery time. His pain started after a fall from 3 feet directly onto his feet . His recovery has been complicated by his numerous other medical factors. Treatment Goals Patient/Caregiver Goals Hike [facility] [place] Prior Functional Status Baseline Function- ADL's Independent Baseline Function- Mobility Independent Current Functional Impairments (Reported) Functional Limitations- ADL's difficulty hiking what he wants to hike Personal Factors Other Personal Factors That May Effect Pancreas issues to that limit Therapy/Recovery the amount of food/type of food Alfredo can eat- causes near constant nausea, has been losing weight, now maintaining at 155#, but that is less than his usual. Significant neuropathy in bilateral feet and legs. Venous transplant on the R, not going to do it on the L, so known poor venous return on the left leg. PT-OP-C Subjective Start: 01/23/19 07:31 Freq: Status: Active Protocol: Document 05/29/19 07:30 EG (Rec: 05/29/19 07:36 EG [id number]) OP-PT Subjective Patient Comments Patient Comments Patient reported that he was tired because of work. His foot was not bothering him because he was not able to go hiking as much as he would have liked to this past week. He is planning on going today though. He also reported that he has been doing his stretches every day this past week. Patient Reported Progress Improving PT-OP-D Balance Start: 01/23/19 07:31 Freq: Status: Active Protocol: Document 01/23/19 07:30 AMB (Rec: 01/24/19 08:26 AMB [email or web address]) Balance Tests Single Limb Standing Single Limb- Right 10 seconds Single Limb- Left 10 seconds PT-OP-J Posture/Palpation/Skin Start: 01/23/19 07:31 Freq: Status: Active Protocol: Document 01/23/19 07:30 AMB (Rec: 01/24/19 08:26 AMB [email or web address]) Palpation Assessment Location One Palpation Location Left heel Palpation Findings Tenderness Palpation Details Significant tenderness with palpation at heel and at arch PT-OP-K Range of Motion Start: 01/23/19 07:31 Freq: Status: Active Protocol: Document 05/22/19 07:30 EG (Rec: 05/22/19 11:58 EG [email or web address]) Ankle and Foot Goniometric Range of Motion Ankle and Foot Left Passive Dorsiflexion with Knee Extended 10 Toe Range of Motion Toe Left Great Toe Toe ROM WFL Yes MTP Extension Passive (degrees) 45 PT-OP-M Strength Start: 01/23/19 07:31 Freq: Status: Active Protocol: Document 01/23/19 07:30 AMB (Rec: 01/24/19 08:26 AMB [email or web address]) Ankle/Foot Strength Ankle and Foot Manual Muscle Testing Right Dorsiflexion (L4) 4+ Good+ Plantarflexion (S1) 4+ Good+ Inversion 4+ Good+ Eversion (S1) 4+ Good+ Left Dorsiflexion (L4) 4+ Good+ Plantarflexion (S1) 4+ Good+ Inversion 4 Good Eversion (S1) 4+ Good+ Toe Strength Toe Manual Muscle Testing Right Great Toe Flexion 4+ Good+ Comments toes 2-5 flexion 5/5 Left Great Toe Flexion 4 Good Comments toe flexion 2-5: 4/5 PT-OP-Q Treatments Start: 01/23/19 07:31 Freq: Status: Active Protocol: Document 05/29/19 07:30 EG (Rec: 05/29/19 08:14 EG [id number]) Cardio Equipment Recumbent Bicycle Duration (Minutes) 6 Resistance 8 Gym Equipment Shuttle Recovery Bilateral Squats Details Bilateral Squats Resistance 75#, 100#, 112# Shuttle Recovery Platform Stable Reps/Time 15, 12, 8 Bilateral Heel Raises Details Bilateral Heel Raise Resistance 100# Shuttle Recovery Platform Stable Reps/Time 2x10; slow lower Shuttle Balance 1 Details Shuttle Balance with Baloon batting Reps/Duration [address] Comments red Clips, WBOS, NBOS, TANDEM bilterally Tapped fwd/bwd while on shuttle Therapeutic Exercises Standing Exercises 7 Standing Exercise Name hamstring/gastrocnemius/soleus stretch Side bilateral Resistance none Equipment Used JOSE and hand rails Reps/Minutes 1 minute ea Comments patient enjoyed stretch of HS 6 Standing Exercise Name Rocker Board Side bilateral Equipment Used rocker board Reps/Minutes 10x Comments hold backwards tap for 2 seconds Neuro Re-Education Treatment Balance Activities 2 Details SLS, EO/EC, tandem Surface foam pad Equipment Railing for balance when needed Reps/Duration 2 sets for as long as he could Comments able to hold ~30 seconds each leg. LOB when eyes closed after about 10 seconds on bilateral sides when doing SLS Able to do tandem stance EC no LOB - increased sway PT-OP-T Assessment and Plan Start: 01/23/19 07:31 Freq: Status: Active Protocol: Document 05/29/19 07:30 EG (Rec: 05/29/19 08:14 EG [id number]) Physical Therapy Assessment Assessment Summary Assessment Patient performed increased balance activities well today and was able to catch his balance quickly once feeling unsteady which is good for when he is walking outside. Decerase in activity allowed pain and tension in plantar fascia to release and patient should contionue to gradually increase activity with out increasing pain. Patient did well with increased strength training and will continue to progress as long as energy level stays high. Physical Therapy Plan Frequency and Duration Frequency of Treatment 1x/Week Duration of Treatment 6 weeks Plan of Care Start Date 05/22/19 Plan of Care End Date 07/03/19 Next Visit Focus/Plan Next Note Type Treatment Note Next Visit Plan Perform 1st MTP and dorsiflexion mobilizations. Continue LE strengthening as tolerated. Obstacle course with multiple balance challenges. Vanessa Sharma DPT, supervised all treatment performed by, and agreed with the plan of care, as performed by LOU Roth.
--- NOTE | 2019-06-05 14:07 | PT.OTN ---
Current Diagnoses Plantar fascial fibromatosis (06/05/19) Physical Therapy Treatment Note PT-OP-A Visit Information Start: 01/23/19 07:31 Freq: Status: Active Protocol: Document 06/05/19 07:30 EG (Rec: 06/05/19 08:16 EG [id number]) Out-Patient Physical Therapy Visit Information Visit Information Visit Type Treatment Note Visit Start Time 07:30 Visit Stop Time 08:15 Total Visit Minutes 45 Visit Number 19 PT-OP-B Current Condition Start: 01/23/19 07:31 Freq: Status: Active Protocol: Document 01/23/19 07:30 AMB (Rec: 01/23/19 08:38 AMB [id number]) Current Condition History of Current Condition Onset Date September 2017 Current Complaints Left heel pain that limits hiking. History of Current Condition Alfredo returns to physical therapy after extended PT that ended a few months ago. At the time of his discharge he was able to hike for about 2-3 miles over flat terrain without too much increasing pain. Now, he can hike for 6 miles with 1,000 foot elevation gain with 4/10 pain, but if he hikes longer or more intense elevation gain his pain increases significantly, and he feels overall his body requires 2-3 days of recovery time. His pain started after a fall from 3 feet directly onto his feet . His recovery has been complicated by his numerous other medical factors. Treatment Goals Patient/Caregiver Goals Hike [facility] Prior Functional Status Baseline Function- ADL's Independent Baseline Function- Mobility Independent Current Functional Impairments (Reported) Functional Limitations- ADL's difficulty hiking what he wants to hike Personal Factors Other Personal Factors That May Effect Pancreas issues to that limit Therapy/Recovery the amount of food/type of food Alfredo can eat- causes near constant nausea, has been losing weight, now maintaining at 155#, but that is less than his usual. Significant neuropathy in bilateral feet and legs. Venous transplant on the R, not going to do it on the L, so known poor venous return on the left leg. PT-OP-C Subjective Start: 01/23/19 07:31 Freq: Status: Active Protocol: Document 06/05/19 07:30 EG (Rec: 06/05/19 08:16 EG [id number]) OP-PT Subjective Patient Comments Patient Comments Pateint reported that he was feeling pretty tired today. 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 Patient is going off of insulin today after having 2 MD appt yesterday. He is getting MRI today of his neck. He was able to go for a few hikes this past week without any increase in pain in the foot. Patient Reported Progress Improving PT-OP-D Balance Start: 01/23/19 07:31 Freq: Status: Active Protocol: Document 01/23/19 07:30 AMB (Rec: 01/24/19 08:26 AMB [email or web address]) Balance Tests Single Limb Standing Single Limb- Right 10 seconds Single Limb- Left 10 seconds PT-OP-J Posture/Palpation/Skin Start: 01/23/19 07:31 Freq: Status: Active Protocol: Document 01/23/19 07:30 AMB (Rec: 01/24/19 08:26 AMB [email or web address]) Palpation Assessment Location One Palpation Location Left heel Palpation Findings Tenderness Palpation Details Significant tenderness with palpation at heel and at arch PT-OP-K Range of Motion Start: 01/23/19 07:31 Freq: Status: Active Protocol: Document 05/22/19 07:30 EG (Rec: 05/22/19 11:58 EG [email or web address]) Ankle and Foot Goniometric Range of Motion Ankle and Foot Left Passive Dorsiflexion with Knee Extended 10 Toe Range of Motion Toe Left Great Toe Toe ROM WFL Yes MTP Extension Passive (degrees) 45 PT-OP-M Strength Start: 01/23/19 07:31 Freq: Status: Active Protocol: Document 01/23/19 07:30 AMB (Rec: 01/24/19 08:26 AMB [email or web address]) Ankle/Foot Strength Ankle and Foot Manual Muscle Testing Right Dorsiflexion (L4) 4+ Good+ Plantarflexion (S1) 4+ Good+ Inversion 4+ Good+ Eversion (S1) 4+ Good+ Left Dorsiflexion (L4) 4+ Good+ Plantarflexion (S1) 4+ Good+ Inversion 4 Good Eversion (S1) 4+ Good+ Toe Strength Toe Manual Muscle Testing Right Great Toe Flexion 4+ Good+ Comments toes 2-5 flexion 5/5 Left Great Toe Flexion 4 Good Comments toe flexion 2-5: 4/5 PT-OP-Q Treatments Start: 01/23/19 07:31 Freq: Status: Active Protocol: Document 03/12/20 07:30 EG (Rec: 06/05/19 08:16 EG [id number]) Cardio Equipment Recumbent Bicycle Duration (Minutes) 6 Resistance 8 Gym Equipment Shuttle Recovery Bilateral Squats Details Bilateral Squat Resistance 100#, 112#, 125# Shuttle Recovery Platform Stable Reps/Time 12, 10, 10 Shuttle Balance 1 Details Shuttle Balance with ball throw to Rebound - Red Clips Reps/Duration 20//10 Comments 20 throws with WBOS 10 throws with tandem in each direction Tapped fwd/bkwd with feet together 10x each way Therapeutic Exercises Standing Exercises 7 Standing Exercise Name hamstring/gastrocnemius/soleus stretch Side bilateral Resistance none Equipment Used JOSE and hand rails Reps/Minutes 1 minute ea Comments patient enjoyed stretch of HS 5 Standing Exercise Name Standing Squats Equipment Used wall rail Reps/Minutes 20x 4 Standing Exercise Name Step-Ups 4 inch Side bilateral Equipment Used bilateral handrail on stairs Reps/Minutes 10x each side Comments step up with heel lift Manual Therapy Treatment Soft Tissue Mobilization 1 Body Location Plantar Fascia Mobilization Type Myofascial Release Intensity/Depth Superficial Body Position Supine Comments Patient had decreased pain than usual Joint Mobilizations L great toe Joint L Great Toe Direction P>A Grade II Body Position Supine Comments paired with stretching of the joint in to extension PT-OP-T Assessment and Plan Start: 01/23/19 07:31 Freq: Status: Active Protocol: Document 06/05/19 07:30 EG (Rec: 06/05/19 12:35 EG [email or web address]) Physical Therapy Assessment Assessment Summary Assessment Patient did well with balance exercises today with ability to find balance once it was slightly challenged. He was also able to do increased weight on the shuttle squats with no increase in symptoms. Overall, patient's tolerance to longer hikes has increased. Begin to increase LE strengthening to help with elevation gain when hiking in order to decrease overall load on plantar fascia. Important to continue with posterior chain muscle lengthening as well. Physical Therapy Plan Frequency and Duration Frequency of Treatment 1x/Week Duration of Treatment 6 weeks Plan of Care Start Date 05/22/19 Plan of Care End Date 07/03/19 Next Visit Focus/Plan Next Note Type Treatment Note Next Visit Plan Walking on treadmill with elevation. Continue LE strengthening as tolerated. Obstacle course with multiple balance challenges. I, Vanessa Phoenix, DPT, supervised all treatment performed by, and agreed with the plan of care, as performed by LOU Roth.
--- NOTE | 2019-06-12 11:09 | PT.OTN ---
Current Diagnoses Plantar fascial fibromatosis (06/12/19) Physical Therapy Treatment Note PT-OP-A Visit Information Start: 01/23/19 07:31 Freq: Status: Active Protocol: Document 06/12/19 07:30 EG (Rec: 06/12/19 08:18 EG [id number]) Out-Patient Physical Therapy Visit Information Visit Information Visit Type Discharge Summary Visit Start Time 07:30 Visit Stop Time 08:15 Total Visit Minutes 45 Visit Number 20 PT-OP-B Current Condition Start: 01/23/19 07:31 Freq: Status: Active Protocol: Document 01/23/19 07:30 AMB (Rec: 01/23/19 08:38 AMB [id number]) Current Condition History of Current Condition Onset Date September 2017 Current Complaints Left heel pain that limits hiking. History of Current Condition Alfredo returns to physical therapy after extended PT that ended a few months ago. At the time of his discharge he was able to hike for about 2-3 miles over flat terrain without too much increasing pain. Now, he can hike for 6 miles with 1,000 foot elevation gain with 4/10 pain, but if he hikes longer or more intense elevation gain his pain increases significantly, and he feels overall his body requires 2-3 days of recovery time. His pain started after a fall from 3 feet directly onto his feet . His recovery has been complicated by his numerous other medical factors. Treatment Goals Patient/Caregiver Goals Hike [facility] Prior Functional Status Baseline Function- ADL's Independent Baseline Function- Mobility Independent Current Functional Impairments (Reported) Functional Limitations- ADL's difficulty hiking what he wants to hike Personal Factors Other Personal Factors That May Effect Pancreas issues to that limit Therapy/Recovery the amount of food/type of food Alfredo can eat- causes near constant nausea, has been losing weight, now maintaining at 155#, but that is less than his usual. Significant neuropathy in bilateral feet and legs. Venous transplant on the R, not going to do it on the L, so known poor venous return on the left leg. PT-OP-C Subjective Start: 01/23/19 07:31 Freq: Status: Active Protocol: Document 06/12/19 07:30 EG (Rec: 06/12/19 08:18 EG [id number]) OP-PT Subjective Patient Comments Patient Comments Patient reported that he is feeling pretty good. He has not been doing as much hiking but did hike [place] the other day with out any problems. He has not had MRI of neck quite yet but did have an US with no results back yet. Patient believes he has the tools he needs to continue with therapy for foot at home and to discharge from PT. Patient Reported Progress Improving PT-OP-D Balance Start: 01/23/19 07:31 Freq: Status: Active Protocol: Document 01/23/19 07:30 AMB (Rec: 01/24/19 08:26 AMB [email or web address]) Balance Tests Single Limb Standing Single Limb- Right 10 seconds Single Limb- Left 10 seconds PT-OP-J Posture/Palpation/Skin Start: 01/23/19 07:31 Freq: Status: Active Protocol: Document 01/23/19 07:30 AMB (Rec: 01/24/19 08:26 AMB [email or web address]) Palpation Assessment Location One Palpation Location Left heel Palpation Findings Tenderness Palpation Details Significant tenderness with palpation at heel and at arch PT-OP-K Range of Motion Start: 01/23/19 07:31 Freq: Status: Active Protocol: Document 05/22/19 07:30 EG (Rec: 05/22/19 11:58 EG [email or web address]) Ankle and Foot Goniometric Range of Motion Ankle and Foot Left Passive Dorsiflexion with Knee Extended 10 Toe Range of Motion Toe Left Great Toe Toe ROM WFL Yes MTP Extension Passive (degrees) 45 PT-OP-M Strength Start: 01/23/19 07:31 Freq: Status: Active Protocol: Document 01/23/19 07:30 AMB (Rec: 01/24/19 08:26 AMB [email or web address]) Ankle/Foot Strength Ankle and Foot Manual Muscle Testing Right Dorsiflexion (L4) 4+ Good+ Plantarflexion (S1) 4+ Good+ Inversion 4+ Good+ Eversion (S1) 4+ Good+ Left Dorsiflexion (L4) 4+ Good+ Plantarflexion (S1) 4+ Good+ Inversion 4 Good Eversion (S1) 4+ Good+ Toe Strength Toe Manual Muscle Testing Right Great Toe Flexion 4+ Good+ Comments toes 2-5 flexion 5/5 Left Great Toe Flexion 4 Good Comments toe flexion 2-5: 4/5 PT-OP-Q Treatments Start: 10/31/19 07:31 Freq: Status: Active Protocol: Document 06/12/19 07:30 EG (Rec: 06/12/19 08:18 EG [id number]) Cardio Equipment Recumbent Bicycle Duration (Minutes) 7 Resistance 9 Seat Position 8 Therapeutic Exercises Standing Exercises 7 Standing Exercise Name hamstring/gastrocnemius/soleus stretch Side bilateral Resistance none Equipment Used JOSE and hand rails Reps/Minutes 1 minute ea Comments gastroc stretch on wall 5 Standing Exercise Name Wall Squats Equipment Used wall Reps/Minutes 10x Comments cue for leg placement 4 Standing Exercise Name Step-Ups 4 inch Side bilateral Equipment Used bilateral handrail on stairs Reps/Minutes 10x each side Comments step up with heel lift 3 Standing Exercise Name Lunge Stretch on Stair Side bilateral Equipment Used Stair and handrails Reps/Minutes 10x each side Comments given as HEP 2 Standing Exercise Name Eccentric Calf Raise on Stair Side bilateral Equipment Used stair and bilateral handrails Reps/Minutes 8x eacxh side Comments 2 up, 1 down Manual Therapy Treatment Manual Techniques 1 Type PROM of L 1st MTP Body Position Supine Comments Sustained for stretch of plantar fascia Took PROM measurement documented in goals PT-OP-T Assessment and Plan Start: 01/23/19 07:31 Freq: Status: Active Protocol: Document 06/12/19 07:30 EG (Rec: 06/12/19 08:18 EG [id number]) Physical Therapy Assessment Goals Four Impairment ROM Senior Strategy Analyst Goal (LTG) Patient will continue to increase 1st MTP ROM to 60 degrees in 6 weeks. 06/12/2019: 1st MTP PROM: 65 degrees 1st MTP AROM: 55 degrees LTG Duration 6 weeks Three Impairment Hiking Short Term Goal (STG) Alfredo will hike for 8 miles over flat terrain with pain of 4/10 or less. 03/20: NOT MET 05/22/2019: Patient has hiked 8 .5 miles but had increased pain 20 min after hike. Reported a 7/10 pain that decreased the next day. Continue working towards hiking goal. 06/12/2019: MET - however cannot do two days or more of >8 miles with less than 4/10 pain STG Duration 4 weeks Detention Goal (LTG) Alfredo will hike for 10 miles with 3,000' elevation gain with 4/10 pain or less. 03/20 : NOT MET 05/22/2019: Patient has not been able to meet this distance or elevation goal. Continue working towards goal. 06/12/2019: Can do it but >4/10 pain LTG Duration 8 weeks Two Impairment Strength Senior Strategy Analyst Goal (LTG) Alfredo will perform 10 full squats without UE support without LOB. 05/22/2019: Patient still able to perform. Can do 3x15 of leg press with 100# of resistance . 06/12/2019: MET LTG Duration MET One Impairment Balance Short Term Goal (STG) Alfredo will increase his single leg stance time to 15 seconds bilaterally. NOT MET 05/22/2019: MET. Patient will increase his single let stance time to 15 seconds bilaterally on unstable surface in 4 weeks. 06/12/2019: MET STG Duration 4 weeks Progress Towards Goals Progress Towards Goals Goals Met Progress Comments Updated goals above Assessment Summary Assessment Patient has improved ability to participate in functional activities and increase increased load tolerance on foot with decreased pain. This is evident by patient's ability to participate in increased milage on his hikes as well as participate in increased elevation. He is not able to do this a couple days in a row without increased pain but patient was advised to continue to do strengthening exercises at home as well as posterior chain soft tissue lengthening in order to continually increase load tolerance on the L foot. Patient was given HEP and will be discharged from PT at this time. Physical Therapy Plan Discharge Physical Therapy Discharge Reasons Goals Met Discharge Comments Patient will continue with HEP at home but has met all goals Vanessa Sharma DPT, supervised all treatment performed by, and agreed with the plan of care, as performed by LOU Roth.
== END 2019-06-12 11:54 ==
LOC: PHYS 07:30
PROVIDERS: Family Provider Emergency Medicine Emergency Medical Services; PCP Family Medicine; Visit Provider Emergency Medicine Emergency Medical Services
DX: M72.2 Plantar fascial fibromatosis (principal)
CPT/HCPCS: 97110; 97112; 97140; 97162; 97530

== ENCOUNTER 2019-08-25 15:55 | Inpatient (IN) | payer OTHER, SELFPAY ==
[2019-08-25] VITALS (12 sets, daily range): BP systolic 84–124; BP diastolic 52–76; PULSE 72–91; RESP 15–22; TEMP 36.2–37.2; O2SAT 95–100; BMI 22.2
[2019-08-25 17:15] LABS: Add Manual Diff / Slide Review NO; Basophils Absolute Auto 0 /uL (0-100); Basophils Percent Auto 0.3 % (0-2); Eosinophils Absolute Auto 100 /uL (0-450); Eosinophils Percent Auto 0.5 % (2-4); Hematocrit 50.2 % (41-53); Hemoglobin 17.2 g/dL (13.5-17.5); Lymphocytes Absolute Auto 900 /uL (1100-4500); Lymphocytes Percent Auto 8.3 % (25-40); Mean Corpuscular HGB Conc 34.3 % (30-36); Mean Corpuscular Hemoglobin 31.6 PG (26-34); Mean Corpuscular Volume 92.2 fL (80-100); Monocytes Absolute Auto 300 /uL (0-900); Monocytes Percent Auto 2.7 % (3-14); Neutrophils Absolute Auto 9100 /uL (1500-7000); Neutrophils Percent Auto 88.2 % (50-75); Platelet Count 269 X10^3/uL (150-400); Red Blood Cell Count 5.44 X10^6/uL (4.5-5.9); Red Cell Distribution Width 13.6 % (11.6-14.8); White Blood Cell Count 10.4 X10^3/uL (4.5-11.0)
[2019-08-25 17:22] LABS: INR 1.2 (0.9-1.3); Prothrombin Time 13.3 SECONDS (10.1-12.7)
[2019-08-25 17:25] LABS: PTT Partial Thromboplastin Tim 37 SECONDS (26.4-36.2)
--- NOTE | 2019-08-25 17:25 | ED.NAVMDI ---
HPI - Nausea/Vomiting/Diarrhea <Brigida Ortiz PA-C - Last Filed: 08/26/19 00:05> General Chief complaint: Nausea/Vomiting/Diarrhea Stated complaint: VOMITING DIARRHEA NAUSEA ABD PAIN Time Seen by Provider: 08/25/19 17:09 Source: patient Mode of arrival: Ambulatory Limitations: no limitations History of Present Illness HPI Narrative: This is a 64-year-old gentleman with a history of acute pancreatitis, sepsis, E coli enteritis hypertension peripheral arterial disease, diabetes, colitis, atrial fibrillation and chronic nausea and diarrhea who presents to the emergency department with significantly worsening nausea, and diarrhea and abdominal pain that began yesterday evening unrelieved by oxycodone and Zofran. He says the pain is like the chronic abdominal pain that he has and is kind of achy but is just more severe than normal, he reports when he has had pancreatitis before he has had like a stabbing pain that comes and goes, he has not experienced this yet today. His left upper quadrant and left lower quadrant are most painful, and he says that ?it's cyclic and it seems like it radiates from the upper to the lower so it could be my bowels but it feels like my pancreatitis? Patient reports that this is frequently how his episodes of pancreatitis start, he says he has been hospitalized multiple times for pancreatitis, he also reports that he has chronic diarrhea and takes cholestyramine for this, however he has not been taking this for approximately the last 4 weeks and reports for 5 very loose bowel movements per day, however since last night he has had countless bowel movements of severe diarrhea and severe nausea, shortly before arrival to the emergency department he began vomiting as well. He states that he has taken 48 mg of Zofran just today to try to relieve his nausea. He reports that he does have Phenergan suppositories however he is unable to keep these in when he is having such significant diarrhea. He has not been able to keep down any food today but has been trying to take some fluids, broth with little success. He had a fairly normal day yesterday until this all began yesterday evening. He did eat yesterday. He advises that he has allergies to sulfa as well as iodine and that if he is to receive IV contrast he can be pre treated with prednisone and Benadryl this has been effective before in the past, he says otherwise ?my throat will close up?. [facility]. He denies fever, chills, chest pain, headache, or any other symptoms. MD complaint: nausea, vomiting, diarrhea and abdominal pain Onset (ago): day(s) (1) Description of Vomiting: bilious Description of Diarrhea: watery Associated Abdominal Pain: Yes Location of pain: LUQ, LLQ and epigastric Severity: moderate Severity scale (1-10): 4 (Sometimes a 7 or 8) Related Data Home Medications Medication Instructions Recorded Confirmed clopidogrel 75 mg PO DAILY #0 04/15/08 04/28/19 diclofenac sodium [Voltaren] 1 crys TOPICAL QID PRN #0 03/14/17 04/28/19 Creon 2 cap PO QID 08/17/17 04/28/19 insulin aspart U-100 [Novolog 3 unit SUB-Q TID 08/17/17 04/28/19 Flexpen U-100 Insulin] omeprazole 40 mg PO BID 08/17/17 04/28/19 acetaminophen 325 mg PO Q4HP PRN 09/25/17 04/28/19 cholecalciferol (vitamin D3) 3,000 unit PO DAILY 09/25/17 04/28/19 [Vitamin D3] dabigatran etexilate 150 mg PO BID 03/24/18 04/28/19 Lantus Solostar U-100 Insulin 10 units SUBCUT DAILY #0 02/13/19 04/28/19 fluticasone propionate 50 mcg INTRANASAL DAILY #0 02/13/19 04/28/19 ondansetron 4 mg PO Q6H PRN 02/13/19 04/28/19 pravastatin 80 mg PO BEDTIME #0 02/13/19 04/28/19 lisinopril 2.5 mg PO DAILY 04/28/19 04/28/19 metoprolol tartrate 12.5 mg PO BID 04/28/19 04/28/19 sildenafil 50 mg PO DAILY PRN MDD 50 mg 04/28/19 04/28/19 Previous Rx's Medication Instructions Recorded oxycodone 5 mg PO Q4HR PRN #20 tab 03/31/18 ondansetron 8 mg disintegrating 8 mg PO Q8H PRN #30 tab 03/03/19 tablet gentamicin 0.3 % eye drops 1 drop EYE-BOTH TID PRN #5 ml 07/18/19 methylphenidate HCl 20 mg tablet 20 mg PO TID #90 tab 08/20/19 Allergies Allergy/AdvReac Type Severity Reaction Status Date / Time Iodine and Iodide Containing Allergy Severe Anaphylaxis Verified 08/25/19 16:06 Produc [IODINE AND IODIDE CONTAINING PRODUC] Sulfa (Sulfonamide Allergy Severe Anaphylaxis Verified 08/25/19 16:06 Antibiotics) [SULFA (SULFONAMIDE ANTIBIOTICS)] Review of Systems <Brigida Ortiz PA-C - Last Filed: 08/26/19 00:05> Review of Systems Narrative: GENERAL: Denies chills, fatigue, malaise, fever, sweats. HEENT: Denies sinus pain, ear pain, sore throat, difficulty swallowing, dizziness. RESPIRATORY: Denies dyspnea, cough, wheezing, hemoptysis, sputum. CARDIOVASCULAR: Denies chest pain, palpitations, orthopnea, edema, GASTROINTESTINAL: Endorses nausea, vomiting, abdominal pain, severe diarrhea stools too numerous to count today, denies constipation, melena. : Denies dysuria, frequency, incontinence, hematuria, urinary retention. MUSCULOSKELETAL: denies weakness, joint pain, or bony pain SKIN: Denies rash, skin lesions, or other NEUROLOGIC: Denies weakness, headache, numbness, change in speech, confusion, seizures, incoordination. PSYCHIATRIC: No concerning psychosocial issues. 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) Narcolepsy (Chronic) Paroxysmal atrial fibrillation (Chronic) Paroxysmal atrial fibrillation (Acute) Peripheral vascular disease (Chronic) Psoriasis (Chronic) Surgical History H/O exploratory laparotomy (Acute) History of femoropopliteal bypass (Acute) Hx of biopsy (Acute) Family History Father Colon cancer Mother Narcolepsy Grandmother Narcolepsy Social History household members: friend(s) Smoking Status: Former smoker Smoking Status: Former smoker alcohol intake frequency: 0-2 drinks per day Substance Use Type: marijuana Exam <Brigida Ortiz PA-C - Last Filed: 08/26/19 00:05> Narrative Exam Narrative: GENERAL: 64 year old patient appears stated age. Well-nourished, well-developed patient, in moderate-severe distress. HEAD: Atraumatic. Normocephalic. EYES: Pupils equal round and reactive. Extraocular motions intact. No scleral icterus. No injection or drainage. ENT: Nose without bleeding, purulent drainage. Throat without erythema, tonsillar hypertrophy or exudate. Airway patent. NECK: Trachea midline. Non tender CARDIOVASCULAR: Regular rate and rhythm without murmurs, gallops, or rubs. RESPIRATORY: Clear to auscultation. Breath sounds equal bilaterally. No wheezes, rales, or rhonchi. GASTROINTESTINAL: Abdomen tender all four quadrants and epigastric most notably left upper and left lower, nondistended. EXTREMITIES: No edema or joint tenderness. BACK: Nontender without deformity or crepitance. No flank tenderness. NEURO: AOx3. SKIN: Pale appearing, No rash or erythema of visible areas Initial Vital Signs Initial Vital Signs: Vital Signs Temperature 97.1 F L 08/25/19 16:02 Pulse Rate 72 08/25/19 16:02 Respiratory Rate 18 08/25/19 16:02 Blood Pressure 95/59 L 08/25/19 16:02 Pulse Oximetry 100 08/25/19 16:02 <Morgan Hunt DO - Last Filed: 08/26/19 12:57> Initial Vital Signs Initial Vital Signs: Vital Signs Temperature 97.1 F L 08/25/19 16:02 Pulse Rate 72 08/25/19 16:02 Respiratory Rate 18 08/25/19 16:02 Blood Pressure 95/59 L 08/25/19 16:02 Pulse Oximetry 100 08/25/19 16:02 Course <Brigida Ortiz PA-C - Last Filed: 08/26/19 00:05> Course Course Narrative: Initially held off on CT as his pressures were low in the 80s systolic; however after bolusing with fluids his pressures have improved into the 90s systolic. Spoke with CASSIDY Munguia, Hospitalist she advised that they definitely feel like they need to see a CT scan before considering admitting him and that depending on what is going on with it may be more appropriate for him to be admitted at a hospital where they have GI available. Will proceed with premedication with Benadryl and Solu-Medrol for his iodine allergy and perform CT contrast, with admission pending either here or transfer depending on the findings. 19:34 Patient is Campylobacter positive per call from the lab. Culturing blood. 20:04 Orders Ordered: Acetaminophen (Tylenol) 650 mg PO Q6HR PRN PRN Reason: Fever/Mild Pain (1-3) Last Admin: 08/26/19 09:06 Dose: 650 mg Documented by: LAUREN Lipase/Protease/Amylase (Zenpep Dr 5,000 Units) 2 cap PO TIDWM [facility] Last Admin: 08/26/19 12:09 Dose: Not Given Documented by: LAUREN Dabigatran (Pradaxa) 150 mg PO BID [facility] Last Admin: 08/26/19 12:00 Dose: 150 mg Documented by: LAUREN Dextrose (D50w) 25 gm IV PRN PRN PRN Reason: Hypoglycemia Diphenhydramine HCl (Benadryl) 25 mg PO BEDTIME PRN PRN Reason: Insomnia Last Admin: 08/26/19 01:40 Dose: 25 mg Documented by: AHARSTA Hydromorphone HCl (Dilaudid) 0.5 mg IV Q4H PRN PRN Reason: Pain, Severe (7-10) Last Admin: 08/26/19 02:21 Dose: 0.5 mg Documented by: JOANTA Dextrose/Sodium Chloride (Dextrose 5%-0.9% Ns) 1,000 mls @ 100 mls/hr IV CONT [facility] Last Admin: 08/26/19 09:19 Dose: 100 mls/hr Documented by: Infusion: 08/26/19 08:34 Dose: 100 mls/hr Documented by: Admin: 08/25/19 22:34 Dose: 100 mls/hr Documented by: DONNA Azithromycin 500 mg/ Dextrose 250 mls @ 250 mls/hr IV Q24H [facility] Last Infusion: 08/26/19 01:42 Dose: 0 mls/hr Documented by: Admin: 08/26/19 00:01 Dose: 250 mls/hr Documented by: NADINE Insulin Aspart (Novolog Flexpen) 0 unit SUBCUT Q6H [facility]; Protocol Last Admin: 08/26/19 12:09 Dose: Not Given Documented by: Admin: 08/26/19 06:19 Dose: 1 unit Documented by: NADINE Cosigned by: SAUL Ketorolac Tromethamine (Toradol) 30 mg IV Q6HR PRN PRN Reason: Pain, Severe (7-10) Stop: 08/30/19 22:11 Last Admin: 08/26/19 00:01 Dose: 30 mg Documented by: NADINE Lorazepam (Ativan) 1 mg IV Q6HR PRN PRN Reason: Anxiety Last Admin: 08/26/19 09:11 Dose: 1 mg Documented by: Admin: 08/26/19 03:52 Dose: 1 mg Documented by: NADINE Metoclopramide HCl (Reglan) 5 mg IV Q8HR PRN PRN Reason: Nausea And Vomiting Naloxone HCl (Narcan) 0.2 mg IV Q2MIN PRN PRN Reason: Opiate Reversal Ondansetron HCl (Zofran) 4 mg IV Q6HR PRN PRN Reason: Nausea And Vomiting Last Admin: 08/26/19 09:14 Dose: 4 mg Documented by: LAUREN Promethazine HCl (Phenadoz) 12.5 mg UT Q6HR PRN PRN Reason: Nausea And Vomiting Sodium Chloride (Normal Saline 0.9% Flush) 10 ml IV PRN PRN PRN Reason: Flush Sodium Chloride (Normal Saline 0.9% Flush) 10 ml IV BID [facility] Last Admin: 08/26/19 09:02 Dose: 10 ml Documented by: LAUREN Discontinued Medications Diphenhydramine HCl (Benadryl) 50 mg IV NOW ONE Stop: 08/25/19 18:15 Last Admin: 08/25/19 19:34 Dose: 50 mg Documented by: RENETTA Hydromorphone HCl (Dilaudid) 0.5 mg IV NOW ONE Stop: 08/25/19 19:23 Last Admin: 08/25/19 19:32 Dose: 0.5 mg Documented by: RENETTA Hydromorphone HCl (Dilaudid) 0.5 mg IV NOW ONE Stop: 08/25/19 21:27 Last Admin: 08/25/19 21:29 Dose: 0.5 mg Documented by: RENETTA Sodium Chloride (Normal Saline 0.9%) 1,000 mls @ 1,000 mls/hr IV BOLUS ONE Stop: 08/25/19 18:29 Last Infusion: 08/25/19 18:25 Dose: 0 mls/hr Documented by: Admin: 08/25/19 17:36 Dose: 1,000 mls/hr Documented by: MARINA Methylprednisolone 1,000 mg/ (Sodium Chloride) 258 mls @ 258 mls/hr IV NOW ONE Stop: 08/25/19 18:15 Last Admin: 08/25/19 19:39 Dose: Not Given Documented by: RENETTA Sodium Chloride (Normal Saline 0.9%) 1,000 mls @ 1,000 mls/hr IV BOLUS ONE Stop: 08/25/19 19:27 Last Infusion: 08/25/19 19:35 Dose: 0 mls/hr Documented by: Admin: 08/25/19 18:30 Dose: 1,000 mls/hr Documented by: RENETTA Sodium Chloride (Normal Saline 0.9%) 1,000 mls @ 150 mls/hr IV BOLUS ONE Stop: 08/26/19 02:16 Last Infusion: 08/25/19 21:41 Dose: 0 mls/hr Documented by: Admin: 08/25/19 19:39 Dose: 150 mls/hr Documented by: RENETTA Insulin Aspart (Novolog Flexpen) 0 unit SUBCUT Q6H [facility]; Protocol Last Admin: 08/26/19 04:57 Dose: Not Given Documented by: Admin: 08/25/19 22:35 Dose: Not Given Documented by: DONNA Insulin Glargine (Lantus Solostar (Pen)) 10 unit SUBCUT 0800 KATHY Lorazepam (Ativan) 0.5 mg IV NOW ONE Stop: 08/25/19 17:32 Last Admin: 08/25/19 17:36 Dose: 0.5 mg Documented by: MARINA Methylprednisolone (Solu-Medrol 125 Mg Vial) 125 mg IV NOW ONE Stop: 08/25/19 18:27 Last Admin: 08/25/19 19:35 Dose: 125 mg Documented by: RENETTA Metoclopramide HCl (Reglan) 5 mg IV NOW ONE Stop: 08/25/19 17:32 Last Admin: 08/25/19 17:36 Dose: 5 mg Documented by: MARINA Ondansetron HCl (Zofran) 4 mg IV Q6HR [facility] Last Admin: 08/26/19 00:01 Dose: 4 mg Documented by: NADINE Vital Signs Vital signs: Vital Signs - 8 hr 08/25/19 16:02 08/25/19 17:55 08/25/19 18:17 Temperature 97.1 F L Pulse Rate 72 75 75 Respiratory Rate 18 22 22 Blood Pressure 95/59 L Blood Pressure [Right Arm] 91/55 L 84/52 L Pulse Oximetry 100 97 97 08/25/19 18:35 08/25/19 19:07 08/25/19 19:19 Temperature Pulse Rate 78 75 76 Respiratory Rate 22 18 18 Blood Pressure Blood Pressure [Right Arm] 92/52 L 94/54 L 99/58 L Pulse Oximetry 97 100 100 08/25/19 19:30 08/25/19 20:00 08/25/19 20:22 Temperature Pulse Rate 79 83 80 Respiratory Rate 16 18 16 Blood Pressure Blood Pressure [Right Arm] 107/57 L 99/54 L 105/63 Pulse Oximetry 96 98 99 <Morgan Hunt DO - Last Filed: 08/26/19 12:57> Orders Ordered: Acetaminophen (Tylenol) 650 mg PO Q6HR PRN PRN Reason: Fever/Mild Pain (1-3) Last Admin: 08/26/19 09:06 Dose: 650 mg Documented by: LAUREN Lipase/Protease/Amylase (Zenpep Dr 5,000 Units) 2 cap PO TIDWM [facility] Last Admin: 08/26/19 12:09 Dose: Not Given Documented by: LAUREN Dabigatran (Pradaxa) 150 mg PO BID [facility] Last Admin: 08/26/19 12:00 Dose: 150 mg Documented by: LAUREN Dextrose (D50w) 25 gm IV PRN PRN PRN Reason: Hypoglycemia Diphenhydramine HCl (Benadryl) 25 mg PO BEDTIME PRN PRN Reason: Insomnia Last Admin: 08/26/19 01:40 Dose: 25 mg Documented by: NADINE Hydromorphone HCl (Dilaudid) 0.5 mg IV Q4H PRN PRN Reason: Pain, Severe (7-10) Last Admin: 08/26/19 02:21 Dose: 0.5 mg Documented by: NADINE Dextrose/Sodium Chloride (Dextrose 5%-0.9% Ns) 1,000 mls @ 100 mls/hr IV CONT [facility] Last Admin: 08/26/19 09:19 Dose: 100 mls/hr Documented by: Infusion: 08/26/19 08:34 Dose: 100 mls/hr Documented by: Admin: 08/25/19 22:34 Dose: 100 mls/hr Documented by: DONNA Azithromycin 500 mg/ Dextrose 250 mls @ 250 mls/hr IV Q24H [facility] Last Infusion: 08/26/19 01:42 Dose: 0 mls/hr Documented by: Admin: 08/26/19 00:01 Dose: 250 mls/hr Documented by: NADINE Insulin Aspart (Novolog Flexpen) 0 unit SUBCUT Q6H [facility]; Protocol Last Admin: 08/26/19 12:09 Dose: Not Given Documented by: Admin: 08/26/19 06:19 Dose: 1 unit Documented by: NADINE Cosigned by: SAUL Ketorolac Tromethamine (Toradol) 30 mg IV Q6HR PRN PRN Reason: Pain, Severe (7-10) Stop: 08/30/19 22:11 Last Admin: 08/26/19 00:01 Dose: 30 mg Documented by: NADINE Lorazepam (Ativan) 1 mg IV Q6HR PRN PRN Reason: Anxiety Last Admin: 08/26/19 09:11 Dose: 1 mg Documented by: Admin: 08/26/19 03:52 Dose: 1 mg Documented by: NADINE Metoclopramide HCl (Reglan) 5 mg IV Q8HR PRN PRN Reason: Nausea And Vomiting Naloxone HCl (Narcan) 0.2 mg IV Q2MIN PRN PRN Reason: Opiate Reversal Ondansetron HCl (Zofran) 4 mg IV Q6HR PRN PRN Reason: Nausea And Vomiting Last Admin: 08/26/19 09:14 Dose: 4 mg Documented by: LAUREN Promethazine HCl (Phenadoz) 12.5 mg UT Q6HR PRN PRN Reason: Nausea And Vomiting Sodium Chloride (Normal Saline 0.9% Flush) 10 ml IV PRN PRN PRN Reason: Flush Sodium Chloride (Normal Saline 0.9% Flush) 10 ml IV BID [facility] Last Admin: 08/26/19 09:02 Dose: 10 ml Documented by: LAUREN Discontinued Medications Diphenhydramine HCl (Benadryl) 50 mg IV NOW ONE Stop: 08/25/19 18:15 Last Admin: 08/25/19 19:34 Dose: 50 mg Documented by: RENETTA Hydromorphone HCl (Dilaudid) 0.5 mg IV NOW ONE Stop: 08/25/19 19:23 Last Admin: 08/25/19 19:32 Dose: 0.5 mg Documented by: CHATOE Hydromorphone HCl (Dilaudid) 0.5 mg IV NOW ONE Stop: 08/25/19 21:27 Last Admin: 08/25/19 21:29 Dose: 0.5 mg Documented by: RENETTA Sodium Chloride (Normal Saline 0.9%) 1,000 mls @ 1,000 mls/hr IV BOLUS ONE Stop: 08/25/19 18:29 Last Infusion: 08/25/19 18:25 Dose: 0 mls/hr Documented by: Admin: 08/25/19 17:36 Dose: 1,000 mls/hr Documented by: MARINA Methylprednisolone 1,000 mg/ (Sodium Chloride) 258 mls @ 258 mls/hr IV NOW ONE Stop: 08/25/19 18:15 Last Admin: 08/25/19 19:39 Dose: Not Given Documented by: RENETTA Sodium Chloride (Normal Saline 0.9%) 1,000 mls @ 1,000 mls/hr IV BOLUS ONE Stop: 08/25/19 19:27 Last Infusion: 08/25/19 19:35 Dose: 0 mls/hr Documented by: Admin: 08/25/19 18:30 Dose: 1,000 mls/hr Documented by: RENETTA Sodium Chloride (Normal Saline 0.9%) 1,000 mls @ 150 mls/hr IV BOLUS ONE Stop: 08/26/19 02:16 Last Infusion: 08/25/19 21:41 Dose: 0 mls/hr Documented by: Admin: 08/25/19 19:39 Dose: 150 mls/hr Documented by: RENETTA Insulin Aspart (Novolog Flexpen) 0 unit SUBCUT Q6H [facility]; Protocol Last Admin: 08/26/19 04:57 Dose: Not Given Documented by: Admin: 08/25/19 22:35 Dose: Not Given Documented by: DONNA Insulin Glargine (Lantus Solostar (Pen)) 10 unit SUBCUT 0800 KATHY Lorazepam (Ativan) 0.5 mg IV NOW ONE Stop: 08/25/19 17:32 Last Admin: 08/25/19 17:36 Dose: 0.5 mg Documented by: MARINA Methylprednisolone (Solu-Medrol 125 Mg Vial) 125 mg IV NOW ONE Stop: 08/25/19 18:27 Last Admin: 08/25/19 19:35 Dose: 125 mg Documented by: RENETTA Metoclopramide HCl (Reglan) 5 mg IV NOW ONE Stop: 08/25/19 17:32 Last Admin: 08/25/19 17:36 Dose: 5 mg Documented by: MARINA Ondansetron HCl (Zofran) 4 mg IV Q6HR [facility] Last Admin: 08/26/19 00:01 Dose: 4 mg Documented by: NADINE Vital Signs Vital signs: Vital Signs - 8 hr 08/25/19 16:02 08/25/19 17:55 08/25/19 18:17 Temperature 97.1 F L Pulse Rate 72 75 75 Respiratory Rate 18 22 22 Blood Pressure 95/59 L Blood Pressure [Right Arm] 91/55 L 84/52 L Pulse Oximetry 100 97 97 08/25/19 18:35 08/25/19 19:07 08/25/19 19:19 Temperature Pulse Rate 78 75 76 Respiratory Rate 22 18 18 Blood Pressure Blood Pressure [Right Arm] 92/52 L 94/54 L 99/58 L Pulse Oximetry 97 100 100 08/25/19 19:30 08/25/19 20:00 08/25/19 20:22 Temperature Pulse Rate 79 83 80 Respiratory Rate 16 18 16 Blood Pressure Blood Pressure [Right Arm] 107/57 L 99/54 L 105/63 Pulse Oximetry 96 98 99 MDM - Nausea/Vomiting/Diarrhea <Brigida Ortiz PA-C - Last Filed: 08/26/19 00:05> Medical Records Attestation: I reviewed the patient's medical records. Lab Data Attestation: I reviewed the patient's lab results. Result diagrams: 08/25/19 17:05 08/26/19 05:16 Labs: Lab Results 08/25/19 08/25/19 08/25/19 Range/Units 17:05 17:05 17:05 WBC 10.4 (4.5-11.0) X10^3/uL RBC 5.44 (4.5-5.9) X10^6/uL Hgb 17.2 (13.5-17.5) g/dL Hct 50.2 (41-53) % MCV 92.2 (80-100) fL MCH 31.6 (26-34) PG MCHC 34.3 (30-36) % RDW 13.6 (11.6-14.8) % Plt Count 269 (150-400) X10^3/uL Neut % (Auto) 88.2 H (50-75) % Lymph % (Auto) 8.3 L (25-40) % [place] % (Auto) 2.7 L (3-14) % Eos % (Auto) 0.5 L (2-4) % Baso % (Auto) 0.3 (0-2) % Neut # (Auto) 9100 H (3714-8532) /uL Lymph # (Auto) 900 L (0106-4341) /uL [place] # (Auto) 300 (0-900) /uL Eos # (Auto) 100 (0-450) /uL Baso # (Auto) 0 (0-100) /uL PT 13.3 H (10.1-12.7) SECONDS INR 1.2 (0.9-1.3) APTT 37 H D (26.4-36.2) SECONDS Sodium 140 (137-145) mmol/L Potassium 4.8 (3.4-5.1) mmol/L Chloride 105 (98-107) mmol/L Carbon Dioxide 24 (22-32) mmol/L BUN 19 (9-20) mg/dL Creatinine 1.07 (0.66-1.25) mg/dL Estimated GFR > 60.0 (>60) mL/min BUN/Creatinine Ratio 17.8 (6-22) Glucose 124 H (80-110) mg/dL Hemoglobin A1c (4.0-6.0) % Lactate (0.7-2.1) mmol/L Calcium 10.2 (8.4-10.2) mg/dL Magnesium (1.6-2.3) mg/dL Total Bilirubin 0.8 (0.2-1.3) mg/dL AST 33 (17-59) IU/L ALT 23 (<50) IU/L Alkaline Phosphatase 101 (38-126) U/L Total Protein 8.7 H (6.3-8.2) g/dL Albumin 5.2 H (3.5-5.0) g/dL Globulin 3.5 (1.7-4.1) g/dL Albumin/Globulin Ratio 1.5 (1.0-2.8) Lipase 1133 H (23-300) U/L 08/25/19 08/25/19 08/25/19 Range/Units 17:05 17:05 17:05 WBC (4.5-11.0) X10^3/uL RBC (4.5-5.9) X10^6/uL Hgb (13.5-17.5) g/dL Hct (41-53) % MCV (80-100) fL MCH (26-34) PG MCHC (30-36) % RDW (11.6-14.8) % Plt Count (150-400) X10^3/uL Neut % (Auto) (50-75) % Lymph % (Auto) (25-40) % [place] % (Auto) (3-14) % Eos % (Auto) (2-4) % Baso % (Auto) (0-2) % Neut # (Auto) (6823-1724) /uL Lymph # (Auto) (3758-2547) /uL [place] # (Auto) (0-900) /uL Eos # (Auto) (0-450) /uL Baso # (Auto) (0-100) /uL PT (10.1-12.7) SECONDS INR (0.9-1.3) APTT (26.4-36.2) SECONDS Sodium (137-145) mmol/L Potassium (3.4-5.1) mmol/L Chloride (98-107) mmol/L Carbon Dioxide (22-32) mmol/L BUN (9-20) mg/dL Creatinine (0.66-1.25) mg/dL Estimated GFR (>60) mL/min BUN/Creatinine Ratio (6-22) Glucose (80-110) mg/dL Hemoglobin A1c 6.7 H (4.0-6.0) % Lactate 1.5 (0.7-2.1) mmol/L Calcium (8.4-10.2) mg/dL Magnesium 1.8 (1.6-2.3) mg/dL Total Bilirubin (0.2-1.3) mg/dL AST (17-59) IU/L ALT (<50) IU/L Alkaline Phosphatase (38-126) U/L Total Protein (6.3-8.2) g/dL Albumin (3.5-5.0) g/dL Globulin (1.7-4.1) g/dL Albumin/Globulin Ratio (1.0-2.8) Lipase (23-300) U/L Imaging Data CT scan - abdomen/pelvis: Attestation: I personally reviewed and interpreted this imaging study as follows: Radiologist's Impression: [address] [address] [address] Scan Report Signed Patient: Jann Diehl CMR#: [id number] : 5Acct:[id number] Age/Sex: 64 / MDate of Service: 08/25/19 Loc: ED Accession Number: [id number] Procedure: CT abdomen pelvis w con Ordering Provider: Brigida Ortiz P.A-C PROCEDURE: CT ABDOMEN PELVIS W CON INDICATIONS: LUQ/LLQ pain--severe diarrhea/N/V TECHNIQUE: After the administration of intravenous contrast, 5 mm thick sections acquired from the diaphragm to the symphysis. 5 mm coronal and sagittal reformats were acquired. For radiation dose reduction, the following was used: automated exposure control, adjustment of mA and/or kV according to patient size. COMPARISON: [facility], CT, CT ABDOMEN PELVIS W CON, 04/28/2019, 15:35. FINDINGS: Image quality: Excellent. ABDOMEN: Lung bases: Lung bases are clear. Heart size is normal. Solid organs: Liver is enlarged with steatosis. Gallbladder is unremarkable. Biliary system is non dilated. Pancreas enhances normally. Spleen is normal in size and enhancement. No adrenal nodules. Kidneys demonstrate normal size and enhancement, without hydronephrosis. Peritoneum and bowel: Prominent fluid filled predominantly small bowel loops are identified. However, fluid is also noted within the colon. Colonic diverticula are present. Nodes and vessels: No retroperitoneal or mesenteric adenopathy by size criteria. Aorta and inferior vena cava are normal in size. Miscellaneous: No ventral hernias. PELVIS: Genitourinary: Bladder wall thickness is normal. Miscellaneous: No inguinal hernias or adenopathy. Bones: No suspicious bony lesions. No vertebral body compression fractures. IMPRESSION: 1. Fluid filled small bowel loops including areas of luminal fluid within the colon as above. Overall appearance can be seen with clinical symptoms of diarrhea and vomiting as noted above. No areas of pericolonic inflammation are noted. Developing ileus cannot be excluded. Dictated by: Pinky Rosario M.D. on 08/25/2019 at 21:01 Approved by: Pinky Rosario M.D. on 08/25/2019 at 21:08 [facility] Narrative Medical decision making narrative: This is a 64-year-old gentleman with a history significant for diabetes, pancreatic insufficiency, colitis, atrial fibrillation, acute pancreatitis, sepsis, hypertension, peripheral arterial disease, chronic nausea, vomiting, and diarrhea who presented to the emergency department with significant increase in number of stools, abdominal pain and nausea beginning yesterday evening. He had been unable to eat any food today, and was having an excessive number of diarrhea stools all day today as well as increased nausea and some vomiting. Differential diagnoses considered included intra-abdominal process such as colitis, pancreatitis, cholecystitis, appendicitis, sepsis. Blood pressures were low initially in the emergency department so much so that CT scanning was delayed, patient did received 2 bolus L of fluids, and improved significantly, I believe he was severely dehydrated from his diarrhea which continued during his emergency department stay. Stool was cultured and was positive for Campylobacter, lipase was elevated to 1133. Patient was admitted to the hospitalist with diagnosis of acute pancreatitis, Campylobacter colitis, and dehydration. <Morgan Hunt, DO - Last Filed: 08/26/19 12:57> Lab Data Labs: Lab Results 08/25/19 08/25/19 08/25/19 Range/Units 17:05 17:05 17:05 WBC 10.4 (4.5-11.0) X10^3/uL RBC 5.44 (4.5-5.9) X10^6/uL Hgb 17.2 (13.5-17.5) g/dL Hct 50.2 (41-53) % MCV 92.2 (80-100) fL MCH 31.6 (26-34) PG MCHC 34.3 (30-36) % RDW 13.6 (11.6-14.8) % Plt Count 269 (150-400) X10^3/uL Neut % (Auto) 88.2 H (50-75) % Lymph % (Auto) 8.3 L (25-40) % [place] % (Auto) 2.7 L (3-14) % Eos % (Auto) 0.5 L (2-4) % Baso % (Auto) 0.3 (0-2) % Neut # (Auto) 9100 H (5535-7531) /uL Lymph # (Auto) 900 L (2919-4075) /uL [place] # (Auto) 300 (0-900) /uL Eos # (Auto) 100 (0-450) /uL Baso # (Auto) 0 (0-100) /uL PT 13.3 H (10.1-12.7) SECONDS INR 1.2 (0.9-1.3) APTT 37 H D (26.4-36.2) SECONDS Sodium 140 (137-145) mmol/L Potassium 4.8 (3.4-5.1) mmol/L Chloride 105 (98-107) mmol/L Carbon Dioxide 24 (22-32) mmol/L BUN 19 (9-20) mg/dL Creatinine 1.07 (0.66-1.25) mg/dL Estimated GFR > 60.0 (>60) mL/min BUN/Creatinine Ratio 17.8 (6-22) Glucose 124 H (80-110) mg/dL Hemoglobin A1c (4.0-6.0) % Lactate (0.7-2.1) mmol/L Calcium 10.2 (8.4-10.2) mg/dL Magnesium (1.6-2.3) mg/dL Total Bilirubin 0.8 (0.2-1.3) mg/dL AST 33 (17-59) IU/L ALT 23 (<50) IU/L Alkaline Phosphatase 101 (38-126) U/L Total Protein 8.7 H (6.3-8.2) g/dL Albumin 5.2 H (3.5-5.0) g/dL Globulin 3.5 (1.7-4.1) g/dL Albumin/Globulin Ratio 1.5 (1.0-2.8) Lipase 1133 H (23-300) U/L 08/25/19 08/25/19 08/25/19 Range/Units 17:05 17:05 17:05 WBC (4.5-11.0) X10^3/uL RBC (4.5-5.9) X10^6/uL Hgb (13.5-17.5) g/dL Hct (41-53) % MCV (80-100) fL MCH (26-34) PG MCHC (30-36) % RDW (11.6-14.8) % Plt Count (150-400) X10^3/uL Neut % (Auto) (50-75) % Lymph % (Auto) (25-40) % [place] % (Auto) (3-14) % Eos % (Auto) (2-4) % Baso % (Auto) (0-2) % Neut # (Auto) (6655-0182) /uL Lymph # (Auto) (0833-1097) /uL [place] # (Auto) (0-900) /uL Eos # (Auto) (0-450) /uL Baso # (Auto) (0-100) /uL PT (10.1-12.7) SECONDS INR (0.9-1.3) APTT (26.4-36.2) SECONDS Sodium (137-145) mmol/L Potassium (3.4-5.1) mmol/L Chloride (98-107) mmol/L Carbon Dioxide (22-32) mmol/L BUN (9-20) mg/dL Creatinine (0.66-1.25) mg/dL Estimated GFR (>60) mL/min BUN/Creatinine Ratio (6-22) Glucose (80-110) mg/dL Hemoglobin A1c 6.7 H (4.0-6.0) % Lactate 1.5 (0.7-2.1) mmol/L Calcium (8.4-10.2) mg/dL Magnesium 1.8 (1.6-2.3) mg/dL Total Bilirubin (0.2-1.3) mg/dL AST (17-59) IU/L ALT (<50) IU/L Alkaline Phosphatase (38-126) U/L Total Protein (6.3-8.2) g/dL Albumin (3.5-5.0) g/dL Globulin (1.7-4.1) g/dL Albumin/Globulin Ratio (1.0-2.8) Lipase (23-300) U/L Discharge Plan Departure Patient Disposition: Admitted As Inpatient Clinical Impression: Campylobacter diarrhea, Acute dehydration Pancreatitis Qualifiers: Chronicity: acute Pancreatitis type: other Acute pancreatitis complication: no infection or necrosis Qualified Code(s): K85.80 - Other acute pancreatitis without necrosis or infection Discharge Date/Time: 08/25/19 21:42 Admit Date/Time: 08/25/19 21:21 Admit Provider: Lyudmila Munguia <Morgan Hunt DO - Last Filed: 08/26/19 12:57> Cosign ED Attending Cosignature Attestation: I was immediately available in the department for consultation. This documentation has been reviewed and I agree with assessment and plan. Supervised by Morgan Hunt DO
[2019-08-25 17:27] LABS: Alanine Aminotransferase 23 IU/L (<50); Albumin 5.2 g/dL (3.5-5.0); Albumin Globulin Ratio 1.5 (1.0-2.8); Alkaline Phosphatase 101 U/L (38-126); Aspartate Aminotransferase 33 IU/L (17-59); BUN Creatinine Ratio 17.8 (6-22); Bilirubin Total 0.8 mg/dL (0.2-1.3); Blood Urea Nitrogen 19 mg/dL (9-20); Calcium 10.2 mg/dL (8.4-10.2); Carbon Dioxide 24 mmol/L (22-32); Chloride 105 mmol/L (98-107); Estimated Glomerular Filt Rate > 60.0 mL/min (>60); Globulin 3.5 g/dL (1.7-4.1); Glucose 124 mg/dL (80-110); HEMOLYSIS 40 (0-50); Lipase 1133 U/L (23-300); Potassium 4.8 mmol/L (3.4-5.1); Sodium 140 mmol/L (137-145); Total Protein 8.7 g/dL (6.3-8.2)
[2019-08-25] MEDS: SODIUM CHLORIDE 0.9% 1,000 ML 1000 ML IV ×2 (17:36→18:30)
[2019-08-25] MEDS: LORazepam 2 MG/ML INJ 0.5 MG IV (17:36)
[2019-08-25] MEDS: METOCLOPRAMIDE 10 MG/2 ML INJ 5 MG IV (17:36)
--- NOTE | 2019-08-25 18:14 | DI.CT.S_ITS ---
PROCEDURE: CT ABDOMEN PELVIS W CON INDICATIONS: LUQ/LLQ pain--severe diarrhea/N/V TECHNIQUE: After the administration of intravenous contrast, 5 mm thick sections acquired from the diaphragm to the symphysis. 5 mm coronal and sagittal reformats were acquired. For radiation dose reduction, the following was used: automated exposure control, adjustment of mA and/or kV according to patient size. COMPARISON: [facility], CT, CT ABDOMEN PELVIS W CON, 04/28/2019, 15:35. FINDINGS: Image quality: Excellent. ABDOMEN: Lung bases: Lung bases are clear. Heart size is normal. Solid organs: Liver is enlarged with steatosis. Gallbladder is unremarkable. Biliary system is non dilated. Pancreas enhances normally. Spleen is normal in size and enhancement. No adrenal nodules. Kidneys demonstrate normal size and enhancement, without hydronephrosis. Peritoneum and bowel: Prominent fluid filled predominantly small bowel loops are identified. However, fluid is also noted within the colon. Colonic diverticula are present. Nodes and vessels: No retroperitoneal or mesenteric adenopathy by size criteria. Aorta and inferior vena cava are normal in size. Miscellaneous: No ventral hernias. PELVIS: Genitourinary: Bladder wall thickness is normal. Miscellaneous: No inguinal hernias or adenopathy. Bones: No suspicious bony lesions. No vertebral body compression fractures. IMPRESSION: 1. Fluid filled small bowel loops including areas of luminal fluid within the colon as above. Overall appearance can be seen with clinical symptoms of diarrhea and vomiting as noted above. No areas of pericolonic inflammation are noted. Developing ileus cannot be excluded. Dictated by: Pinky Rosario M.D. on 08/25/2019 at 21:01 Approved by: Pinky Rosario M.D. on 08/25/2019 at 21:08
[2019-08-25] MEDS: HYDROMORPHONE 0.5 MG INJ IV ×2 (19:32→21:29)
[2019-08-25] MEDS: diphenhydrAMINE 50 MG/ML VIAL IV (19:34)
[2019-08-25] MEDS: methylPREDNISolone 125 MG/2 ML VIAL IV (19:35)
[2019-08-25 19:37] LABS: Magnesium 1.8 mg/dL (1.6-2.3)
[2019-08-25] MEDS: SODIUM CHLORIDE 0.9% 1,000 ML 150 ML IV (19:39)
[2019-08-25 20:07] LABS: Lactate (Lactic Acid) 1.5 mmol/L (0.7-2.1)
[2019-08-25] MEDS: DEXTROSE 5%-0.9% NS 1,000 ML 100 ML IV (22:34)
--- NOTE | 2019-08-25 22:37 | PM.HP.1 ---
History of Present Illness History of Present Illness Date Patient Seen: 08/25/19 Time Patient Seen: 22:52 Chief complaint: VOMITING DIARRHEA NAUSEA ABD PAIN Narrative: Jann Diehl is a 64-year-old male with a history of exocrine pancreatic insufficiency, chronic pancreatitis, peripheral vascular disease, type 1 diabetes, and paroxysmal atrial fibrillation presented with worsening diarrhea and abdominal pain. He points to his left lower abdomen and states that it radiates up into just below his ribs on the left side. He states that this feels like his normal bouts of pancreatitis and review of his chart indicates he has been hospitalized with this multiple times. He states that he was taking cholestyramine for chronic diarrhea but states that it makes it really hard and then followed by runny diarrhea. Apparently he stopped taking the cholestyramine within the last 4 weeks and is having very loose bowel movements. He takes Zofran 4 mg p.o. with all of his meals and a range from 8-24 mg for nausea exacerbations. Apparently he took 48 mg of Zofran today per the ED provider. Usually when he sees a certain amount of Zofran he will use Phenergan suppositories, however the diarrhea has prevented him from being able to use these effectively. He has been nauseous to the point of not being able to eat. He denies fevers sweats or chills, difficulty swallowing, shortness of breath, dysuria or weakness. He does have a history of peripheral vascular disease and a history of a fem-pop bypass. He has paroxysmal atrial fibrillation and is anticoagulated on dabigatran. Patient History Medical History (Updated 08/25/19 @ 22:41 by LEDY Barrett) Acute pancreatitis (Acute) Campylobacter enteritis (Acute) Exocrine pancreatic insufficiency (Acute) GERD (gastroesophageal reflux disease) (Chronic) HTN (hypertension) (Chronic) Hyperlipidemia (Chronic) 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) Narcolepsy (Chronic) Paroxysmal atrial fibrillation (Chronic) Paroxysmal atrial fibrillation (Acute) Peripheral vascular disease (Chronic) Psoriasis (Chronic) Surgical History (Updated 08/25/19 @ 22:42 by LEDY Barrett) H/O exploratory laparotomy (Acute) History of femoropopliteal bypass (Acute) Hx of biopsy (Acute) Family & Social History Family History (Updated 08/25/19 @ 22:52 by LEDY Barrett) Father Colon cancer Mother Narcolepsy Grandmother Narcolepsy Social History: household members significant other,none Prior Living Arrangements House Safety & Behavioral: Feels Safe in Current Yes Environment Been Physically Hurt or No Threatened By a Person Suicidal Ideation Description None Tobacco & Substance use: Smoking Status Former smoker alcohol intake frequency Denies Substance Use Type marijuana Meds Home Medications and Allergies Home Medications Medication Instructions Recorded Confirmed Type clopidogrel 75 mg PO DAILY #0 04/15/08 04/28/19 History diclofenac sodium [Voltaren] 1 crys TOPICAL QID PRN #0 03/14/17 04/28/19 History Creon 2 cap PO QID 08/17/17 04/28/19 History insulin aspart U-100 [Novolog 3 unit SUB-Q TID 08/17/17 04/28/19 History Flexpen U-100 Insulin] omeprazole 40 mg PO BID 08/17/17 04/28/19 History acetaminophen 325 mg PO Q4HP PRN 09/25/17 04/28/19 History cholecalciferol (vitamin D3) 3,000 unit PO DAILY 09/25/17 04/28/19 History [Vitamin D3] dabigatran etexilate 150 mg PO BID 03/24/18 04/28/19 History oxycodone 5 mg PO Q4HR PRN #20 tab 03/31/18 04/28/19 Rx Lantus Solostar U-100 Insulin 10 units SUBCUT DAILY #0 02/13/19 04/28/19 History fluticasone propionate 50 mcg INTRANASAL DAILY #0 02/13/19 04/28/19 History ondansetron 4 mg PO Q6H PRN 02/13/19 04/28/19 History pravastatin 80 mg PO BEDTIME #0 02/13/19 04/28/19 History ondansetron 8 mg disintegrating 8 mg PO Q8H PRN #30 tab 03/03/19 04/28/19 Rx tablet lisinopril 2.5 mg PO DAILY 04/28/19 04/28/19 History metoprolol tartrate 12.5 mg PO BID 04/28/19 04/28/19 History sildenafil 50 mg PO DAILY PRN MDD 50 mg 04/28/19 04/28/19 History gentamicin 0.3 % eye drops 1 drop EYE-BOTH TID PRN #5 ml 07/18/19 Rx methylphenidate HCl 20 mg tablet 20 mg PO TID #90 tab 08/20/19 Rx Allergies Allergy/AdvReac Type Severity Reaction Status Date / Time Iodine and Iodide Containing Allergy Severe Anaphylaxis Verified 08/25/19 16:06 Produc [IODINE AND IODIDE CONTAINING PRODUC] Sulfa (Sulfonamide Allergy Severe Anaphylaxis Verified 08/25/19 16:06 Antibiotics) [SULFA (SULFONAMIDE ANTIBIOTICS)] Review of Systems Review of Systems ROS: Yes All systems reviewed with the patient and are negative except as otherwise documented Exam Vital Signs (past 8 hours): - 08/25/19 16:02 08/25/19 17:55 08/25/19 18:17 Temperature 97.1 F L Pulse Rate 72 75 75 Respiratory Rate 18 22 22 Blood Pressure 95/59 L Blood Pressure [Right Arm] 91/55 L 84/52 L Pulse Oximetry 100 97 97 08/25/19 18:35 08/25/19 19:07 08/25/19 19:19 Temperature Pulse Rate 78 75 76 Respiratory Rate 22 18 18 Blood Pressure Blood Pressure [Right Arm] 92/52 L 94/54 L 99/58 L Pulse Oximetry 97 100 100 08/25/19 19:30 08/25/19 20:00 08/25/19 20:22 Temperature Pulse Rate 79 83 80 Respiratory Rate 16 18 16 Blood Pressure Blood Pressure [Right Arm] 107/57 L 99/54 L 105/63 Pulse Oximetry 96 98 99 08/25/19 21:23 08/25/19 21:55 Temperature 98.9 F Pulse Rate 87 91 H Respiratory Rate 17 15 Blood Pressure 124/71 Blood Pressure [Right Arm] 103/76 Pulse Oximetry 97 96 Oxygen Delivery Method Room Air Oxygen Flow Rate 0 Narrative Exam Narrative: Gen: Alert, oriented, thin 64 y.o. [] fe[]male, NAD HEENT: normocephalic, atraumatic, conjunctiva clear, sclera non-icteric, oral mucosa pink and moist Neck: supple, full ROM, no JVD, trachea is midline Resp: Lungs CTA, non-labored breathing CV: RRR, no murmur or rubs Abd: soft, non-tender, normoactive BTs Skin: Jaundiced appearing, no lesions or rashes, dry and intact Neuro: Alert and oriented X 4 w/no focal deficits Extremities: moves all 4 extremities, is ambulatory, negative Olive?s sign Psyche: normal mood and affect. Objective Labs Result Diagrams: 08/25/19 17:05 08/25/19 17:05 Labs: Laboratory Results - last 24 hr 08/25/19 08/25/19 08/25/19 17:05 17:05 17:05 WBC 10.4 RBC 5.44 Hgb 17.2 Hct 50.2 MCV 92.2 MCH 31.6 MCHC 34.3 RDW 13.6 Plt Count 269 Neut % (Auto) 88.2 H Lymph % (Auto) 8.3 L [place] % (Auto) 2.7 L Eos % (Auto) 0.5 L Baso % (Auto) 0.3 Neut # (Auto) 9100 H Lymph # (Auto) 900 L [place] # (Auto) 300 Eos # (Auto) 100 Baso # (Auto) 0 PT 13.3 H INR 1.2 APTT 37 H D Sodium 140 Potassium 4.8 Chloride 105 Carbon Dioxide 24 BUN 19 Creatinine 1.07 Estimated GFR > 60.0 BUN/Creatinine Ratio 17.8 Glucose 124 H Lactate Calcium 10.2 Magnesium Total Bilirubin 0.8 AST 33 ALT 23 Alkaline Phosphatase 101 Total Protein 8.7 H Albumin 5.2 H Globulin 3.5 Albumin/Globulin Ratio 1.5 Lipase 1133 H 08/25/19 08/25/19 17:05 17:05 WBC RBC Hgb Hct MCV MCH MCHC RDW Plt Count Neut % (Auto) Lymph % (Auto) [place] % (Auto) Eos % (Auto) Baso % (Auto) Neut # (Auto) Lymph # (Auto) [place] # (Auto) Eos # (Auto) Baso # (Auto) PT INR APTT Sodium Potassium Chloride Carbon Dioxide BUN Creatinine Estimated GFR BUN/Creatinine Ratio Glucose Lactate 1.5 Calcium Magnesium 1.8 Total Bilirubin AST ALT Alkaline Phosphatase Total Protein Albumin Globulin Albumin/Globulin Ratio Lipase Assessment & Plan Assessment & Plan narrative: Jann Diehl is admitted as an inpatient for IV antibiotic management of a Campylobacter enteritis and idiopathic pancreatitis. Campylobacter enteritis acute, present on admission -he will receive daily IV azithromycin 500 mg daily -should he be discharged before 5 days he should complete a 5 day course of oral azithromycin on discharge Idiopathic pancreatitis, acute, present on admission -bowel rest with chips and medications -NPO tonight -clears in the morning as tolerated -pain control with Tylenol and IV ketorolac as needed for severe pain Diabetes type 1, chronic -continue Lantus 10 units in the morning -Q 6 glucose checks with conservative dose correctional scale Paroxysmal atrial fibrillation, chronic Continue home dose of dabigatran 150 mg p.o. b.i.d. History of fem-pop bypass on anticoagulation, chronic -Continue home dose of Plavix 75 mg p.o. daily -Continue home dose of dabigatran 150 mg p.o. b.i.d. Essential hypertension, chronic however at present is hypotensive -continue home dose of lisinopril 2.5 mg daily if within blood pressure parameters -Continue home dose of metoprolol tartrate 12.5 mg p.o. b.i.d. if within blood pressure parameters Hyperlipidemia, chronic -continue home dose of pravastatin 80 mg p.o. daily Consults: one Patient is inpatient status as his stay is likely to exceed 2 midnights. FEN: D5 normal saline at 100 mL per hour, NPO, CMP in the am. VTE prophylaxis: Continue home dose of dabigatran 150 mg p.o. b.i.d. Dispo: Probable discharge to home Code Status: Full Code as discussed with patient COVID-19 COVID-19 status: Not tested Quality VTE Deep Vein Thrombosis/Pulmonary Embolism Present on Admission: No
[2019-08-25 22:39] LABS: Hemoglobin A1C% w Est Avg Glu 6.7 % (4.0-6.0)
[2019-08-26] VITALS (7 sets, daily range): BP systolic 93–114; BP diastolic 54–73; PULSE 67–81; RESP 16–18; TEMP 36.5–36.9; O2SAT 96–99
[2019-08-26] MEDS: KETOROLAC 30 MG/ML VIAL IV (00:01)
[2019-08-26] MEDS: ONDANSETRON 4 MG/2 ML INJ IV ×4 (00:01→21:42)
[2019-08-26] MEDS: AZITHROMYCIN 500 MG in DEXTROSE 5% IN WATER 250 ML IV ×2 (00:01→21:03)
[2019-08-26] MEDS: diphenhydrAMINE 25 MG TABLET PO (01:40)
--- NOTE | 2019-08-26 02:11 | PC.NURSE ---
Addendum entered by Janessa Guajardo R.N. 08/26/19 05:40: States pain is now 2/10 and Ativan resolved nausea. No further stools. Addendum entered by Janessa Guajardo R.N. 08/26/19 03:55: Medicated with Ativan for nausea. Addendum entered by Janessa Guajardo R.N. 08/26/19 03:12: States pain is still 4/10 but feels it has subjectively improved. Still waiting on Ativan order; patient made aware. Addendum entered by Janessa Guajardo R.N. 08/26/19 02:27: Medicated with Dilaudid for 4/10 abdominal pain. Was going to give Reglan for nausea but patient states he is not able to take Reglan as it gives me the eebey, jeebies. Ezra VILLAFANA informed. Original Note: Patient initially seen and assessed at 0015. Is alert and oriented. [place] and does not have hearing aids. Breath sounds diminished at bases but CTA with RA sat of 95%. HRR. Endorses nausea without current emesis so medicated with scheduled Zofran which he states did not help so CAR [employer]ER informed and new order received for Reglan (awaiting pharmacy verification to give). BT present and was having diarrhea prior to admission; stool culture + for camphylobactor. Was up to bathroom with SBA and had very small mucoid, pancho colored stool. Voiding without dysuria, frequency or urgency. Abdomen is tender and complains of intense ache in left quads radiating around to back which is cyclic in nature. Medicated with Toradol which he states didn't help (although was sleeping earlier after taking) so CAR [employer]ER informed and new order received for Dilaudid. Wearing bilateral calf SCD's. Currently NPO except for ice. Fall risk score is high and bed alarm is activated.
[2019-08-26] MEDS: HYDROMORPHONE 0.5 MG INJ IV ×3 (02:21→21:40)
[2019-08-26] MEDS: LORazepam 2 MG/ML INJ 1 MG IV ×3 (03:52→17:15)
[2019-08-26 05:56] LABS: Alanine Aminotransferase 18 IU/L (<50); Albumin 4.2 g/dL (3.5-5.0); Albumin Globulin Ratio 1.6 (1.0-2.8); Alkaline Phosphatase 73 U/L (38-126); Aspartate Aminotransferase 23 IU/L (17-59); BUN Creatinine Ratio 21.8 (6-22); Bilirubin Total 0.4 mg/dL (0.2-1.3); Blood Urea Nitrogen 24 mg/dL (9-20); Calcium 8.7 mg/dL (8.4-10.2); Carbon Dioxide 21 mmol/L (22-32); Chloride 107 mmol/L (98-107); Estimated Glomerular Filt Rate > 60.0 mL/min (>60); Globulin 2.6 g/dL (1.7-4.1); Glucose 187 mg/dL (80-110); HEMOLYSIS < 15 (0-50); Magnesium 1.7 mg/dL (1.6-2.3); Potassium 4.6 mmol/L (3.4-5.1); Sodium 139 mmol/L (137-145); Total Protein 6.8 g/dL (6.3-8.2)
[2019-08-26] MEDS: INSULIN ASPART 100 UNIT/ML INSULN PEN SUBCUT (06:19)
[2019-08-26] MEDS: SODIUM CHLORIDE 0.9% FLUSH 10 ML IV (09:02)
[2019-08-26] MEDS: ACETAMINOPHEN 325 MG TABLET 650 MG PO (09:06)
[2019-08-26] MEDS: DEXTROSE 5%-0.9% NS 1,000 ML 100 ML IV ×2 (09:19→19:21)
--- NOTE | 2019-08-26 10:44 | CM.DANOTE ---
Patient is a 64 year old male who was admitted on 08/25/19 for Abd Pain, N/V. Payer: [employer]. PCP: through the [facility] in [facility] and followed by Dr. Chava Goldman. He has also been followed by the [facility]: Dr. Hammond and partners. Per MD, pt currently on IV-Abx and fluids and bowel rest. Per RN, pt on clear liquids this AM with loose stool and still having pain and nausea. Pt was last admitted to [facility] in Apr 2019 for pancreatitis and was able to d/c home with supportive friend assist. [facility] and with a mechanical tech to help with his risk for readmit. SW met briefly bedside with pt as he was feeling fairly ill and sleeping. Pt confirmed he has a supportive roommate, a good friend Stephanie (who will likely take him home at d/c) and his 2 daughters who are POA. November Little and Kristan. both live out of town). 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 Pt has a long hx of bowel issues and multiple ED and admissions to the hospital for bowel rest. Pt typically manages his pancreatitis with good diet but at times has a flare up. Pt anticipates going home at discharge and does not anticipate any needs. Pt denies any hx of HH or SNF and has declined HH in the past stating he is likely not homebound. Plan: SW to follow closely to determine if pt can tolerate eventual advancing diet to determine if he will have any needs at d/c. SW to check with pt to determine if he followed through with mechanical tech after last admit in Apr. RIMA Ramos Discharge Planning/Care Management CM Discharge Assessment Start: 08/26/19 10:42 Freq: Status: Active Protocol: Document 08/26/19 10:42 BF (Rec: 08/26/19 10:44 BF [id number]) Discharge Planning Assessment Assigned [employer] Instructor RIMA Santana DPOA/Assigned Designee Name Dtr November Contact Information [phone] Advance Directives? Yes Advance Directives on File Yes History Provided By Patient,Medical Record Has Patient been admitted in last 30 No days? Prior Living Arrangements House Household Members friend(s) Type of transporation used prior to Drives own vehicle admit Independent with ADL's Yes Is patient alert and oriented? Yes Caregiver for Another No Comment has cane, does not currently use. Barriers to Discharge No Discharge Plan Home Transportation Arrangement Supportive local friends who can provide transport Referrals Initiated None needed Review Status In Process Please Provide Date Initial DC 08/26/19 Assessment Was Performed Next Review Type Continued Stay Review
[2019-08-26] MEDS: DABIGATRAN 75 MG CAPSULE 150 MG PO ×2 (12:00→21:03)
--- NOTE | 2019-08-26 14:25 | PM.PN.1 ---
Subjective Subjective Date Patient Seen: 08/26/19 Interval history: Patient is a 64-year-old male who was admitted to the hospital for acute pancreatitis and Campylobacter gastroenteritis. Patient is on azithromycin for his Campylobacter. He has had multiple admissions for pancreatitis. 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 This was removed endoscopically. He sees Dr. Zee gastroenterology at [facility] in [place]. I have left a message for out regarding management of this patient. He is on a clear liquid diet. He does report continued abdominal pain. Patient has a higher dose of Creon then we have available here at the hospital. Patient will bring his home medication and. Earlier today with a clear liquid diet he had significant diarrhea. Will hold further advancement of his diet until the Creon is available. Exam Vital Signs (past 8 hours): - 08/26/19 07:50 08/26/19 08:27 Temperature 98 F Pulse Rate 71 Respiratory Rate 16 Blood Pressure 100/65 Pulse Oximetry 98 97 Oxygen Delivery Method Room Air Oxygen Flow Rate 0 Narrative Exam Narrative: Pleasant gentleman in no acute distress Lungs: Clear to auscultation Cardiac exam: Regular rate and rhythm normal S1-S2 Abdomen: Soft mildly tender to palpation, no rebound tender, no palpable mass Extremities no edema Objective Labs Result Diagrams: 08/25/19 17:05 08/26/19 05:16 Labs: Laboratory Results - last 24 hr 08/25/19 08/25/19 08/25/19 17:05 17:05 17:05 WBC 10.4 RBC 5.44 Hgb 17.2 Hct 50.2 MCV 92.2 MCH 31.6 MCHC 34.3 RDW 13.6 Plt Count 269 Neut % (Auto) 88.2 H Lymph % (Auto) 8.3 L [place] % (Auto) 2.7 L Eos % (Auto) 0.5 L Baso % (Auto) 0.3 Neut # (Auto) 9100 H Lymph # (Auto) 900 L [place] # (Auto) 300 Eos # (Auto) 100 Baso # (Auto) 0 PT 13.3 H INR 1.2 APTT 37 H D Sodium 140 Potassium 4.8 Chloride 105 Carbon Dioxide 24 BUN 19 Creatinine 1.07 Estimated GFR > 60.0 BUN/Creatinine Ratio 17.8 Glucose 124 H Hemoglobin A1c Lactate Calcium 10.2 Magnesium Total Bilirubin 0.8 AST 33 ALT 23 Alkaline Phosphatase 101 Total Protein 8.7 H Albumin 5.2 H Globulin 3.5 Albumin/Globulin Ratio 1.5 Lipase 1133 H 08/25/19 08/25/19 08/25/19 17:05 17:05 17:05 WBC RBC Hgb Hct MCV MCH MCHC RDW Plt Count Neut % (Auto) Lymph % (Auto) [place] % (Auto) Eos % (Auto) Baso % (Auto) Neut # (Auto) Lymph # (Auto) [place] # (Auto) Eos # (Auto) Baso # (Auto) PT INR APTT Sodium Potassium Chloride Carbon Dioxide BUN Creatinine Estimated GFR BUN/Creatinine Ratio Glucose Hemoglobin A1c 6.7 H Lactate 1.5 Calcium Magnesium 1.8 Total Bilirubin AST ALT Alkaline Phosphatase Total Protein Albumin Globulin Albumin/Globulin Ratio Lipase 08/26/19 05:16 WBC RBC Hgb Hct MCV MCH MCHC RDW Plt Count Neut % (Auto) Lymph % (Auto) [place] % (Auto) Eos % (Auto) Baso % (Auto) Neut # (Auto) Lymph # (Auto) [place] # (Auto) Eos # (Auto) Baso # (Auto) PT INR APTT Sodium 139 Potassium 4.6 Chloride 107 Carbon Dioxide 21 L BUN 24 H Creatinine 1.10 Estimated GFR > 60.0 BUN/Creatinine Ratio 21.8 Glucose 187 H Hemoglobin A1c Lactate Calcium 8.7 Magnesium 1.7 Total Bilirubin 0.4 AST 23 ALT 18 Alkaline Phosphatase 73 Total Protein 6.8 Albumin 4.2 Globulin 2.6 Albumin/Globulin Ratio 1.6 Lipase Assessment & Plan Assessment & Plan narrative: Impression 1. Acute pancreatitis -patient has idiopathic pancreatitis, etiology unknown, -will continue IV hydration, antiemetics, pain medications, continue clear liquid diet -will continue cream 2. Acute gastroenteritis, secondary to Campylobacter jejuni -continue azithromycin total dose 5 days 3. Paroxysmal atrial fibrillation -continue Pradaxa -continue metoprolol as well 4. Type 2 diabetes -will continue Lantus 10 units at night given some oral intake -will continue bolus insulin as well 5. GERD -continue PPI 6. Hyperlipidemia -will hold his statin but resume once he is taking more p.o. 7. Hypertension -blood pressure well controlled -will resume usual blood pressure medication Quality VTE Deep Vein Thrombosis/Pulmonary Embolism Present on Admission: No
[2019-08-26] MEDS: CREON 1 EACH PO (17:06)
--- NOTE | 2019-08-26 22:56 | PC.NURSE ---
PATIENT WAS GETTING UP TO SBC WITH FAMILY ASSISTANCE,FORGOT TO REMOVE ONE SCD AND FELL TO KNEES, DENIES PAIN,BACK TO BED. DR. SYED UPDATED. NO NEW ORDERS .BED ALARM ON SCDS REMOVED PER PATIENTREQUEST
--- NOTE | 2019-08-27 01:48 | PC.NURSE ---
Pt. keeping turning off his bed alarm and getting to the bedside commode by himself
[2019-08-27] MEDS: LORazepam 2 MG/ML INJ 1 MG IV ×2 (03:10→17:14)
[2019-08-27 03:23] VITALS: BP 106/63; PULSE 87; RESP 18; TEMP 36.4; O2SAT 97
[2019-08-27 05:57] LABS: Add Manual Diff / Slide Review NO; Basophils Absolute Auto 0 /uL (0-100); Basophils Percent Auto 0.6 % (0-2); Eosinophils Absolute Auto 100 /uL (0-450); Eosinophils Percent Auto 1.2 % (2-4); Hemoglobin 14.1 g/dL (13.5-17.5); Lymphocytes Absolute Auto 400 /uL (1100-4500); Lymphocytes Percent Auto 4.9 % (25-40); Mean Corpuscular HGB Conc 34.4 % (30-36); Mean Corpuscular Hemoglobin 31.5 PG (26-34); Mean Corpuscular Volume 91.5 fL (80-100); Monocytes Absolute Auto 800 /uL (0-900); Monocytes Percent Auto 10.7 % (3-14); Neutrophils Absolute Auto 6400 /uL (1500-7000); Neutrophils Percent Auto 82.6 % (50-75); Platelet Count 180 X10^3/uL (150-400); Red Blood Cell Count 4.48 X10^6/uL (4.5-5.9); Red Cell Distribution Width 13.1 % (11.6-14.8); White Blood Cell Count 7.7 X10^3/uL (4.5-11.0)
[2019-08-27 05:59] LABS: Alanine Aminotransferase 17 IU/L (<50); Albumin 4.2 g/dL (3.5-5.0); Albumin Globulin Ratio 1.7 (1.0-2.8); Alkaline Phosphatase 69 U/L (38-126); Aspartate Aminotransferase 23 IU/L (17-59); BUN Creatinine Ratio 20.8 (6-22); Bilirubin Total 0.7 mg/dL (0.2-1.3); Blood Urea Nitrogen 15 mg/dL (9-20); Calcium 8.7 mg/dL (8.4-10.2); Carbon Dioxide 22 mmol/L (22-32); Chloride 106 mmol/L (98-107); Estimated Glomerular Filt Rate > 60.0 mL/min (>60); Globulin 2.5 g/dL (1.7-4.1); Glucose 142 mg/dL (80-110); HEMOLYSIS < 15 (0-50); Sodium 139 mmol/L (137-145); Total Protein 6.7 g/dL (6.3-8.2)
[2019-08-27] MEDS: DEXTROSE 5%-0.9% NS 1,000 ML 100 ML IV ×2 (06:54→18:10)
[2019-08-27 07:50] VITALS: O2SAT 94
[2019-08-27 08:00] VITALS: BP 93/58; PULSE 80; RESP 16; TEMP 37; O2SAT 94
[2019-08-27] MEDS: INSULIN ASPART 100 UNIT/ML INSULN PEN SUBCUT (08:51)
[2019-08-27] MEDS: PANTOPRAZOLE 40 MG VIAL IV (08:52)
[2019-08-27] MEDS: ONDANSETRON 4 MG/2 ML INJ IV (08:53)
[2019-08-27] MEDS: SODIUM CHLORIDE 0.9% FLUSH 10 ML IV ×2 (08:53→23:44)
[2019-08-27] MEDS: HYDROMORPHONE 0.5 MG INJ IV ×3 (08:58→17:14)
[2019-08-27] MEDS: ACETAMINOPHEN 325 MG TABLET 650 MG PO (08:58)
[2019-08-27] MEDS: DABIGATRAN 75 MG CAPSULE 150 MG PO ×2 (08:59→23:43)
--- NOTE | 2019-08-27 10:17 | CM.DPC ---
DCP Cont: Per , consulted with pt's PCP and pt had an MRCP in April that came back negative. also consulting with [place]'s [place] doctor for ongoing follow up and needs. Pt continuing to have multiple stooling/diarrhea and currently on IV-Abx and not stable for discharge yet. Per geospatial information technologist, met extensively with pt during last admit and had a detailed plan for keeping up pt's weight with reducing risk of pancreatitis flare up and geospatial information technologist to meet with pt during this admit to follow up on what was working for his diet as pt has been able to gain weight since his last admission. Patient has had supportive Sig Other bedside once a day. Plan: SW to follow for plan of discharge home with supportive Sig Other and friends when diarrhea better managed. RIMA Ramos
--- NOTE | 2019-08-27 12:41 | DIET.PN ---
Dietary Progress Note RD met c pt and his partner Yisel in room to discuss current clear liquid diet order and how pt would like to proceed c available options r/t D/pancreatitis/DM. Pt has good awareness of his diet and food triggers as he has been admitted multiple times for acute pancreatitis which is usually a result of mis-timing his Creon digestive enzyme supplementation. Pt has gained 5% body weight since last admit in Apr 2019 and reports doing relatively well since then. He is still 12% below his usual body weight of 89kg though his BMI for age is in the normal range (22.9). Pt is trialing ONS Andry to see if acceptable. This product contains 16g PRO, vitamins, minerals, and only 3g sugar per serving. He will notify nurse, Khushi, if he would like to continue this clear liquid option and we can add it on his diet bid. Pt reports being afraid to eat because he knows it will go straight through him r/t Campylobacter gastroenteritis Dietary note from 05/01/2019 has detailed dietary hx for this pt.
[2019-08-27] MEDS: PROMETHAZINE 25 MG SUPP PR (13:24)
[2019-08-27 15:00] VITALS: O2SAT 100
[2019-08-27 15:03] VITALS: BP 122/68; PULSE 73; RESP 18; TEMP 36.8; O2SAT 100
--- NOTE | 2019-08-27 15:10 | P.PN_ITS ---
Subjective Subjective Date Patient Seen: 08/27/19 Interval history: Patient had a difficult night. He continues to have significant diarrhea. He reports no appetite. He does state that his nausea is better and he has had no dry heaving today. He has been unable to eat and continues to have some crampy abdominal as well as pain from his pancreatitis Exam Vital Signs (past 8 hours): - 08/27/19 07:50 08/27/19 08:00 08/27/19 15:03 Temperature 98.6 F 98.3 F Pulse Rate 80 73 Respiratory Rate 16 18 Blood Pressure 93/58 L 122/68 Pulse Oximetry 94 94 100 Oxygen Delivery Method Room Air Oxygen Flow Rate 0 Narrative Exam Narrative: Ill-appearing male lying in bed Lungs: Clear to auscultation Cardiac exam: Regular rate and rhythm normal S1-S2 Abdomen: Soft mildly tender, no board-like rigidity, no palpable mass Extremities no edema Objective Labs Result Diagrams: 08/27/19 05:21 08/27/19 05:21 Labs: Laboratory Results - last 24 hr 08/27/19 08/27/19 05:21 05:21 WBC 7.7 RBC 4.48 L Hgb 14.1 Hct 41.0 MCV 91.5 MCH 31.5 MCHC 34.4 RDW 13.1 Plt Count 180 Neut % (Auto) 82.6 H Lymph % (Auto) 4.9 L Mcpherson % (Auto) 10.7 Eos % (Auto) 1.2 L Baso % (Auto) 0.6 Neut # (Auto) 6400 Lymph # (Auto) 400 L Mcpherson # (Auto) 800 Eos # (Auto) 100 Baso # (Auto) 0 Sodium 139 Potassium 4.0 Chloride 106 Carbon Dioxide 22 BUN 15 Creatinine 0.72 Estimated GFR > 60.0 BUN/Creatinine Ratio 20.8 Glucose 142 H Calcium 8.7 Total Bilirubin 0.7 AST 23 ALT 17 Alkaline Phosphatase 69 Total Protein 6.7 Albumin 4.2 Globulin 2.5 Albumin/Globulin Ratio 1.7 Assessment & Plan Assessment & Plan narrative: Impression 1. Campylobacter gastroenteritis -continue Zithromax -consider cholestyramine, discussed with patient he prefers to hold off at this time 2. Acute pancreatitis -patient remains NPO, has antiemetics, and pain medication 3. Hypertension -continue metoprolol and lisinopril 4. GERD -continue PPI 5. Hyperlipidemia -continues to have Will continue clear liquid diet, hopefully can advanced tomorrow, continue antiemetics and pain medication. Quality VTE Deep Vein Thrombosis/Pulmonary Embolism Present on Admission: No
[2019-08-27 16:30] LABS: Lipase 40 U/L (23-300)
[2019-08-27] MEDS: AZITHROMYCIN 500 MG in DEXTROSE 5% IN WATER 250 ML IV (23:43)
[2019-08-27] MEDS: INSULIN GLARGINE 100 UNIT/ML 3ML PEN 10 UNIT SUBCUT (23:45)
[2019-08-27 23:50] VITALS: BP 96/55; PULSE 72; RESP 14; TEMP 36.5; O2SAT 97
[2019-08-28] MEDS: ONDANSETRON 4 MG/2 ML INJ IV (01:49)
--- NOTE | 2019-08-28 03:11 | PC.NURSE ---
Addendum entered by Janessa Guajardo R.N. 08/28/19 07:00: States he slept well last night. Did have 1 loose, watery, 200cc BM. Up this morning and showered. Complaining of 5/10 spasm like left abdominal pain + nausea. Medicated with Dilaudid and Ativan. Original Note: Patient seen and assessed at 0200. Is alert and oriented. EGEGIK and does not have hearing aids. Breath sounds diminished at bases but CTA with RA sat of 97%. HRR. BP low at 96/55 but has been trending lower. Admits to nausea but without emesis and was medicated with Zofran per his request. BT present and abdomen is soft; has been having liquid stools but none since early on previous shift. Still having tenderness in LUQ/LLQ but states pain is 3/10 and tolerable. Voiding without dysuria, frequency or urgency. Is able to turn self in bed. Receiving SBA when up to bathroom or BSC as fell 6/2. Fall risk score is high and bed alarm is activated; patient/significant other verbalize understanding of need to have staff present during transfers. Agreeable to having SCD's put back on at time of assessment. Patient continues in isolation for camphylobactor gastroenteritis.
[2019-08-28] MEDS: DEXTROSE 5%-0.9% NS 1,000 ML 100 ML IV ×2 (04:47→15:39)
[2019-08-28] MEDS: HYDROMORPHONE 0.5 MG INJ IV ×4 (06:38→21:18)
[2019-08-28] MEDS: SODIUM CHLORIDE 0.9% FLUSH 10 ML IV ×2 (06:39→08:29)
[2019-08-28] MEDS: LORazepam 2 MG/ML INJ 1 MG IV ×3 (06:47→21:18)
[2019-08-28 07:00] VITALS: O2SAT 95
[2019-08-28 07:45] VITALS: BP 104/58; PULSE 85; RESP 16; TEMP 36.5; O2SAT 95
[2019-08-28] MEDS: DABIGATRAN 75 MG CAPSULE 150 MG PO ×2 (08:29→21:55)
[2019-08-28] MEDS: CREON 1 EACH PO ×3 (08:29→19:03)
[2019-08-28] MEDS: PANTOPRAZOLE 40 MG VIAL IV (08:29)
[2019-08-28] MEDS: ONDANSETRON 8 MG in SODIUM CHLORIDE 0.9% 50 ML 216 ML IV (11:43)
[2019-08-28 12:00] VITALS: BP 117/73; PULSE 82; RESP 14; TEMP 36.6; O2SAT 97
--- NOTE | 2019-08-28 14:57 | CM.DPC ---
Addendum entered by Kayley Barron LPN 08/28/19 15:49: A continued look at pt's history shows that he has been seeing PT/OUTPatient at the Therapy dept since last July (had been ordered much earlier to on hold due to COVID restrictions). Anticipate that he will be continuing after d/c. Addendum entered by Kayley Barron, ISRA 08/28/19 15:33: Dr. Grimaldo's note for today is now in and is reviewed. She reports pt is continuing with significant diarrhea, very poor appetite and is only tolerating a clear liquid diet. Nausea is less than it has been. She did consult pt's GI physician Dr. Zee in the gastroenterology dept. at the [facility] in [place]. Confirmed that pt does follow with LEDY Goldman at the [facility]. It is unclear if he also still sees Dr. Hammond at [facility]/plan to check on this tomorrow. Dr. Grimaldo anticipates pt will be in the hospital for a couple more days and will d/c to the home setting when he can tolerate a diet without significant diarrhea. P: see pt tomorrow after Team Rounds and follow for d/c issues and options. Original Note: DCP: continued: case received and discussed today in Team Rounds. Bedside rounds were deferred as pt remains in Enteric/Contact precautions for Campylobacter gastroenteritis. RN noted that thus far this morning pt seemed to be stooling less although stools continued a watery consistency. Dr. Grimaldo reported she would be back later to see pt. Thus far her progress note is not available. EMR reviewed. Note Taker Jennifer did see pt yesterday and went over some ongoing ideas for home management with pt and his friend Yisel Markham, at the bedside. P: will follow prn as POC unfolds and look also to the hospitalist team for direction going forward.
[2019-08-28 15:00] VITALS: O2SAT 96
--- NOTE | 2019-08-28 15:13 | PM.PN.1 ---
Subjective Subjective Date Patient Seen: 08/28/19 Interval history: Patient continues to have diarrhea. He had 5 stools in the morning yesterday. He had 2 stools this morning. He has been unable to tolerate any kind of diet as it goes right through him. He is now on a clear liquid diet. He also reports some abdominal pain. He has less nausea today than yesterday. Exam Vital Signs (past 8 hours): - 08/28/19 07:45 08/28/19 12:00 Temperature 97.7 F 97.9 F Pulse Rate 85 82 Respiratory Rate 16 14 Blood Pressure 104/58 L 117/73 Pulse Oximetry 95 97 Oxygen Delivery Method Room Air Oxygen Flow Rate 0 Narrative Exam Narrative: Pleasant gentleman ill-appearing Lungs: Clear to auscultation Cardiac exam: Regular rate and rhythm normal S1-S2 Abdomen: Soft, tender to palpation no rebound tenderness, no board-like rigidity, no palpable mass Extremities: No edema Objective Labs Result Diagrams: 08/27/19 05:21 08/27/19 05:21 Labs: Laboratory Results - last 24 hr 08/27/19 05:21 Lipase 40 D Assessment & Plan Assessment & Plan narrative: Impression 1. Campylobacter gastroenteritis -patient continues to have diarrhea although improving -continue azithromycin for total of 5 days -clear liquid diet 2. Acute pancreatitis -improving -resume Creon when able to take significant oral intake -clear liquid diet 3. 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 Hypertension -continue metoprolol and lisinopril 5. GERD -continue PPI 6. Hyperlipidemia -continue statin Anticipate discharge home once the patient can tolerate a diet without significant diarrhea. Anticipate 1-2 days Quality VTE Deep Vein Thrombosis/Pulmonary Embolism Present on Admission: No
[2019-08-28 15:20] VITALS: BP 112/64; PULSE 86; RESP 18; TEMP 36.2; O2SAT 96
[2019-08-28] MEDS: METOCLOPRAMIDE 10 MG/2 ML INJ 5 MG IV (15:43)
[2019-08-28] MEDS: PROMETHAZINE 25 MG SUPP PR (16:22)
[2019-08-28 19:52] VITALS: BP 107/60; PULSE 71; RESP 16; TEMP 36.3; O2SAT 96
[2019-08-28] MEDS: INSULIN GLARGINE 100 UNIT/ML 3ML PEN 10 UNIT SUBCUT (21:12)
[2019-08-28] MEDS: AZITHROMYCIN 500 MG in DEXTROSE 5% IN WATER 250 ML IV (22:00)
[2019-08-29] VITALS (9 sets, daily range): BP systolic 100–119; BP diastolic 62–67; PULSE 72–90; RESP 15–18; TEMP 36.1–36.9; O2SAT 95–97
[2019-08-29] MEDS: DEXTROSE 5%-0.9% NS 1,000 ML 100 ML IV ×2 (02:18→14:44)
[2019-08-29 05:51] LABS: Alanine Aminotransferase 17 IU/L (<50); Albumin 3.5 g/dL (3.5-5.0); Albumin Globulin Ratio 1.4 (1.0-2.8); Alkaline Phosphatase 66 U/L (38-126); Aspartate Aminotransferase 23 IU/L (17-59); BUN Creatinine Ratio 7.7 (6-22); Bilirubin Total 0.5 mg/dL (0.2-1.3); Blood Urea Nitrogen 5 mg/dL (9-20); Calcium 8.5 mg/dL (8.4-10.2); Carbon Dioxide 28 mmol/L (22-32); Chloride 106 mmol/L (98-107); Estimated Glomerular Filt Rate > 60.0 mL/min (>60); Globulin 2.5 g/dL (1.7-4.1); Glucose 83 mg/dL (80-110); HEMOLYSIS < 15 (0-50); Potassium 3.1 mmol/L (3.4-5.1); Sodium 139 mmol/L (137-145)
[2019-08-29] MEDS: ONDANSETRON 8 MG in SODIUM CHLORIDE 0.9% 50 ML 216 ML IV ×2 (06:01→18:00)
[2019-08-29] MEDS: HYDROMORPHONE 0.5 MG INJ IV ×4 (06:01→22:42)
[2019-08-29] MEDS: POTASSIUM CHLORIDE 20 MEQ TAB 40 MEQ PO (06:44)
[2019-08-29 06:49] LABS: Magnesium 1.4 mg/dL (1.6-2.3)
[2019-08-29] MEDS: POTASSIUM CHLORIDE 40 MEQ in SODIUM CHLORIDE 0.9% 500 ML 130 ML IV (07:48)
--- NOTE | 2019-08-29 07:55 | PM.PN.1 ---
Subjective Subjective Date Patient Seen: 08/29/19 Time Patient Seen: 11:16 Interval history: He is seen in his room today to follow-up the pancreatic insufficiency and the Campylobacter diarrhea. He is quite discouraged by the length of his illness and the persisting symptoms. His electrolytes continue somewhat deranged with a potassium of 3.1 and a magnesium of 1.4. A CT scan was repeated today without signs of worsening bowel obstruction, pancreatitis or any other progressive condition. In retrospect he suspects that a subway chicken sandwich eaten on August 22 may precipitated the Campylobacter as he seldom eats meat. He still feels quite wiped out. His GI physician is at the [facility] in [place]. Exam Vital Signs (past 8 hours): - 08/29/19 00:00 08/29/19 02:00 Temperature 96.9 F L Pulse Rate 72 Respiratory Rate 16 Blood Pressure 100/62 Pulse Oximetry 96 96 Oxygen Delivery Method Room Air Oxygen Flow Rate 0 Narrative Exam Narrative: Alert and oriented x3. Appears to be emotionally distressed by continuing diarrhea. No physical distress evident. Heart is regular rate and rhythm without murmur. Lungs are clear to auscultation bilaterally. Extremities have no ankle edema. Abdomen is tender in the left lower quadrant, bowel sounds active, soft. Objective Labs Result Diagrams: 08/27/19 05:21 08/29/19 05:18 Labs: Laboratory Results - last 24 hr 08/29/19 08/29/19 05:18 05:18 Sodium 139 Potassium 3.1 L Chloride 106 Carbon Dioxide 28 BUN 5 L Creatinine 0.65 L Estimated GFR > 60.0 BUN/Creatinine Ratio 7.7 Glucose 83 Calcium 8.5 Magnesium 1.4 L Total Bilirubin 0.5 AST 23 ALT 17 Alkaline Phosphatase 66 Total Protein 6.0 L Albumin 3.5 Globulin 2.5 Albumin/Globulin Ratio 1.4 Assessment & Plan Assessment & Plan narrative: 1. Campylobacter gastroenteritis -patient continues to have diarrhea although improving -continue azithromycin for total of 5 days -clear liquid diet and IV fluids -may need transfer to [facility] for GI if not resolving soon - Dr. Franklin -repeat CT 08/28 due to persisting symptoms: Solid organs: Liver is enlarged with steatosis. Gallbladder is unremarkable. Biliary system is non dilated. Pancreas enhances normally. No pancreatic inflammation is identified. Spleen is normal in size and enhancement. No adrenal nodules. Kidneys demonstrate normal size and enhancement, without hydronephrosis. Peritoneum and bowel: Bowel loops demonstrate normal wall thickness and caliber. No free air. Minimal dependent pelvic fluid. Previous fluid-filled loops of bowel are less prominent. Colonic diverticula are present. 2. Acute pancreatitis -improvement plateaued - CT repeated 08/28 - see above -resume Creon when able to take significant oral intake -clear liquid diet and IVF 3. 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 Hypertension -continue metoprolol and lisinopril 5. GERD -continue PPI 6. Hyperlipidemia -continue statin 7. Hypokalemia -caused by diarrhea GI losses -08/28 3.1 - 40 meq PO with 40 meq IV -follow 8. Hypomagnesemia -caused by diarrhea GI losses -08/28 1.4 - 2 gm MG IV and repeat 08/29 -follow Anticipate discharge home once the patient can tolerate a diet without significant diarrhea. Anticipate 1-2 days Quality VTE Deep Vein Thrombosis/Pulmonary Embolism Present on Admission: No
[2019-08-29] MEDS: MAGNESIUM SULFATE 2 GM/50 ML PIGGYBACK IV (08:25)
[2019-08-29] MEDS: CREON 1 EACH PO ×3 (08:45→16:51)
[2019-08-29] MEDS: DABIGATRAN 75 MG CAPSULE 150 MG PO ×2 (08:53→21:12)
[2019-08-29] MEDS: PANTOPRAZOLE 40 MG VIAL IV (08:53)
[2019-08-29] MEDS: diphenhydrAMINE 50 MG/ML VIAL IV (09:37)
[2019-08-29] MEDS: predniSONE 20 MG TABLET 40 MG PO (09:37)
--- NOTE | 2019-08-29 09:46 | DI.CT.S_ITS ---
PROCEDURE: CT ABDOMEN PELVIS W CON INDICATIONS: pancreatitis TECHNIQUE: After the administration of intravenous contrast, 5 mm thick sections acquired from the diaphragm to the symphysis. 5 mm coronal and sagittal reformats were acquired. For radiation dose reduction, the following was used: automated exposure control, adjustment of mA and/or kV according to patient size. COMPARISON: [facility], CT, CT ABDOMEN PELVIS W CON, 08/25/2019, 20:11. FINDINGS: Image quality: Excellent. ABDOMEN: Lung bases: Lung bases are clear. Heart size is normal. Solid organs: Liver is enlarged with steatosis. Gallbladder is unremarkable. Biliary system is non dilated. Pancreas enhances normally. No pancreatic inflammation is identified. Spleen is normal in size and enhancement. No adrenal nodules. Kidneys demonstrate normal size and enhancement, without hydronephrosis. Peritoneum and bowel: Bowel loops demonstrate normal wall thickness and caliber. No free air. Minimal dependent pelvic fluid. Previous fluid-filled loops of bowel are less prominent. Colonic diverticula are present. Nodes and vessels: No retroperitoneal or mesenteric adenopathy by size criteria. Aorta and inferior vena cava are normal in size. Miscellaneous: No ventral hernias. PELVIS: Genitourinary: Bladder wall thickness is normal. Miscellaneous: No inguinal hernias or adenopathy. Bones: No suspicious bony lesions. No vertebral body compression fractures. IMPRESSION: 1. No pancreatic inflammation. 2. Decreased appearance of fluid-filled loops of small bowel. 3. Diverticulosis. Dictated by: Pinky Rosario M.D. on 08/29/2019 at 10:40 Approved by: Pinky Rosario M.D. on 08/29/2019 at 10:53
--- NOTE | 2019-08-29 10:11 | PC.NURSE ---
Addendum entered by Vanessa Ayala R.N. 08/29/19 11:04: Returned from CT scan, awake and, on RA, sats 97%, speaking in full sentences. No resp distress noted. SO at bedside providing supportive care. Addendum entered by Vanessa Ayala R.N. 08/29/19 10:32: Patient transferred to CT scan via WC, awake, alert, and stable. Original Note: Day shift note: [id number] Perrin regarding Iodine allergy, order obtained for Benadryl and prednisone prior to CT scan with contrast. Coordinated with hvac installation technician. Patient on RA, awake, alert, and pleasant.
--- NOTE | 2019-08-29 14:53 | CM.DPC ---
DCP: continued: Case again discussed in Team Rounds with Dr. Perrin updating care team members outside of pt's room due to his current Enteric/Contact precautions. He noted that he would be looking deeper into this case today and that it pt was not showing improvement he would be looking at a transfer to the [facility] where pt gets his specialized GI care. He and RN Coordinator Siria discussed how they might collaborate in this plan and both will be here this weekend. DCP team to continue to follow.
[2019-08-29] MEDS: INSULIN ASPART 100 UNIT/ML INSULN PEN SUBCUT (16:52)
[2019-08-29] MEDS: AZITHROMYCIN 500 MG in DEXTROSE 5% IN WATER 250 ML IV (21:12)
[2019-08-29] MEDS: INSULIN GLARGINE 100 UNIT/ML 3ML PEN 10 UNIT SUBCUT (21:13)
[2019-08-30] MEDS: LORazepam 2 MG/ML INJ 1 MG IV (00:28)
[2019-08-30] MEDS: diphenhydrAMINE 25 MG TABLET PO (00:28)
[2019-08-30] MEDS: DEXTROSE 5%-0.9% NS 1,000 ML 100 ML IV (03:00)
[2019-08-30 06:35] LABS: BUN Creatinine Ratio 6.9 (6-22); Blood Urea Nitrogen 4 mg/dL (9-20); Calcium 9.2 mg/dL (8.4-10.2); Carbon Dioxide 25 mmol/L (22-32); Chloride 106 mmol/L (98-107); Estimated Glomerular Filt Rate > 60.0 mL/min (>60); Glucose 113 mg/dL (80-110); HEMOLYSIS 22 (0-50); Magnesium 1.8 mg/dL (1.6-2.3); Sodium 140 mmol/L (137-145)
[2019-08-30 07:30] VITALS: O2SAT 100
[2019-08-30 08:00] VITALS: BP 104/69; PULSE 74; RESP 18; TEMP 36.4; O2SAT 100
--- NOTE | 2019-08-30 08:44 | PM.DS.1 ---
History of Present Illness History of Present Illness Date Patient Seen: 08/30/19 Time Patient Seen: 08:44 Chief complaint: VOMITING DIARRHEA NAUSEA ABD PAIN Narrative: Jann Diehl is a 64-year-old male with a history of exocrine pancreatic insufficiency, chronic pancreatitis, peripheral vascular disease, type 1 diabetes, and paroxysmal atrial fibrillation presented with worsening diarrhea and abdominal pain. He points to his left lower abdomen and states that it radiates up into just below his ribs on the left side. He states that this feels like his normal bouts of pancreatitis and review of his chart indicates he has been hospitalized with this multiple times. He states that he was taking cholestyramine for chronic diarrhea but states that it makes it really hard and then followed by runny diarrhea. Apparently he stopped taking the cholestyramine within the last 4 weeks and is having very loose bowel movements. He takes Zofran 4 mg p.o. with all of his meals and a range from 8-24 mg for nausea exacerbations. Apparently he took 48 mg of Zofran today per the ED provider. Usually when he sees a certain amount of Zofran he will use Phenergan suppositories, however the diarrhea has prevented him from being able to use these effectively. He has been nauseous to the point of not being able to eat. He denies fevers sweats or chills, difficulty swallowing, shortness of breath, dysuria or weakness. He does have a history of peripheral vascular disease and a history of a fem-pop bypass. He has paroxysmal atrial fibrillation and is anticoagulated on dabigatran. Discharge Providers Provider Date of admission: 08/25/19 21:21 Discharge Date: 08/30/19 Primary care physician: LEDY Razo Discharge provider: Bethanie Perrin MD Summary Hospital Course Discharge Diagnosis: 1. Campylobacter gastroenteritis 2. Acute pancreatitis 3. Type 2 diabetes 4. Hypertension 5. GERD 6. Hyperlipidemia 7. Hypokalemia 8. Hypomagnesemia Hospital Course: 1. Campylobacter gastroenteritis -Resolved on the 5th day of Azithromycin. Stable for discharge 08/30/19. -repeat CT 08/28 due to persisting symptoms: Solid organs: Liver is enlarged with steatosis. Gallbladder is unremarkable. Biliary system is non dilated. Pancreas enhances normally. No pancreatic inflammation is identified. Spleen is normal in size and enhancement. No adrenal nodules. Kidneys demonstrate normal size and enhancement, without hydronephrosis. Peritoneum and bowel: Bowel loops demonstrate normal wall thickness and caliber. No free air. Minimal dependent pelvic fluid. Previous fluid-filled loops of bowel are less prominent. Colonic diverticula are present. 2. Acute pancreatitis -improvement plateaued - CT repeated 08/28 - see above, then 08/29 he is back to his chronic pancreatic insufficiency discomfort levels. -resume Creon -clear liquid diet and IVF, doing well so will advance diet at home today. 3. 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 Hypertension -continue metoprolol and lisinopril 5. GERD -continue PPI 6. Hyperlipidemia -continue statin 7. Hypokalemia -caused by diarrhea GI losses -08/28 3.1 - 40 meq PO with 40 meq IV -08/29 Normal 4.0 8. Hypomagnesemia -caused by diarrhea GI losses -08/28 1.4 - 2 gm MG IV and repeat 08/29 1.8 Exam Vital Signs (past 8 hours): Oxygen Delivery Method Room Air Oxygen Flow Rate 0 Narrative Exam Narrative: He looks much better today. Sometime yesterday midday he says he turned the corner. He has had very limited bowel movements since then and his abdominal pain is back to his chronic pancreatitis levels, which he considers normal. He is alert and oriented x3, in no apparent distress. He is sitting on the edge of the bed and actually smiling. Heart is regular rate and rhythm without murmur Lungs are clear to auscultation bilaterally Extremities have no ankle edema Abdomen has chronic left-sided tenderness, no distention, bowel sounds active. Objective Labs Result Diagrams: 08/27/19 05:21 08/30/19 05:55 Labs: Laboratory Results - last 24 hr 08/30/19 05:55 Sodium 140 Potassium 4.0 Chloride 106 Carbon Dioxide 25 BUN 4 L Creatinine 0.58 L Estimated GFR > 60.0 BUN/Creatinine Ratio 6.9 Glucose 113 H Calcium 9.2 Magnesium 1.8 Discharge Plan Discharge Plan Patient Disposition: Home Discharge comment: [facility] Navneet Goldman soon Discharge orders & Medications Prescriptions: Continued clopidogrel 75 mg Tablet 75 mg PO DAILY Qty: 0 RF: 0 diclofenac sodium [Voltaren] 1 % gel 1 crys Topical QID PRN (Reason: osteoarthritis) Qty: 0 RF: 0 gentamicin 0.3 % drops 1 drop EYE-BOTH TID PRN (Reason: Blepharitis) Qty: 5 RF: 1 methylphenidate HCl 20 mg tablet 20 mg PO TID Qty: 90 RF: 0 ondansetron 8 mg tablet,disintegrating 8 mg PO Q8H PRN (Reason: nausea and vomiting) Qty: 30 RF: 0 insulin aspart U-100 [Novolog Flexpen U-100 Insulin] 100 unit/mL Insulin Pen See Rx Instructions .ROUTE .COMPLEX RF: 0 Creon 36,000-114,000- 180,000 unit Capsule,Delayed Release(Dr/Ec) 2 cap PO QID RF: 0 cholecalciferol (vitamin D3) [Vitamin D3] 1,000 unit Capsule 3,000 unit PO DAILY RF: 0 acetaminophen 325 MG tablet 325 mg PO Q4HP PRN (Reason: Pain, Mild) RF: 0 dabigatran etexilate 150 mg Capsule 150 mg PO BID RF: 0 oxycodone 5 mg Tablet 5 mg PO Q4HR PRN (Reason: Pain, Moderate (4-6)) Qty: 20 RF: 0 pravastatin 80 mg Tablet 80 mg PO BEDTIME Qty: 0 RF: 0 ondansetron 4 mg Tablet,Disintegrating 4 mg PO Q6H PRN (Reason: Nausea) RF: 0 fluticasone propionate 50 mcg/actuation Hurricane,Suspension 50 mcg intranasal DAILY Qty: 0 RF: 0 lisinopril 2.5 mg Tablet 2.5 mg PO DAILY RF: 0 metoprolol tartrate 25 mg Tablet 12.5 mg PO BID RF: 0 Follow up/Referrals: Chava Goldman ARNP [Primary Care Provider] - Diet/Activity/Treatments Diet: Diet as Tolerated Skin/Wound/Dressing Care Other wound treatment: Elevate left hand as much as possible, move fingers every 1-2 hours, may use warm compress as needed until the swelling is gone to your left hand. Visit Report/Discharge Packet Instructions: Diarrhea, DI for Pancreatitis, How to Prevent Falls Discharge Data Primary Care Provider: Chava Goldman Quality VTE Deep Vein Thrombosis/Pulmonary Embolism Present on Admission: No
[2019-08-30] MEDS: CREON 1 EACH PO (08:58)
[2019-08-30] MEDS: DABIGATRAN 75 MG CAPSULE 150 MG PO (08:58)
--- NOTE | 2019-08-30 09:03 | PC.NURSE ---
Patient given back three bottles of his own creon capsules that were stored in the pharmacy.
--- NOTE | 2019-08-30 09:22 | PC.NURSE ---
Addendum entered by Khushi Iglesias R.N. 08/30/19 09:25: Pt's IV site had infiltrated early am. Dr. Perrin viewed site. Given d/c instructions for same. Original Note: Discharge: Pt feels ready to d/c home. He is at his usual level of abd pain and has nausea off and on, so far none today. He has phenergan supp at home and glucerna. Didn't want to try to take diet for now due to his past hx. Reviewed d/c packet and understood. No new rx. Questions answered. SO here during time of teaching. Pt d/c home via auto w/SO. Pt reports no concerns at time of d/c.
--- NOTE | 2019-09-03 19:08 | PC.NURSE ---
LATE NOT,PATIENT DID HAVE IV FLUIDS INFUSING AT THE TIME OF HIS FALL BEDSIDE 08/26/2019
== END 2019-08-30 09:25 | disposition home or self-care (01) | DRG 371 ==
LOC: ED 20:14 → AC 21:22
PROVIDERS: Emergency Medicine; Family Medicine; Internal Medicine; Nurse Practitioner Adult Health; Admitting Provider Nurse Practitioner Family; Emergency Provider Student in an Organized Health Care Education/Training Program; Family Provider Emergency Medicine Emergency Medical Services; PCP Nurse Practitioner Family; Referring Provider Student in an Organized Health Care Education/Training Program; Visit Provider Nurse Practitioner Family
DX: A04.5 Campylobacter enteritis (principal); K85.90 Acute pancreatitis without necrosis or infection, unspecified; K86.1 Other chronic pancreatitis; K86.81 Exocrine pancreatic insufficiency; E86.0 Dehydration; I48.0 Paroxysmal atrial fibrillation; E10.9 Type 1 diabetes mellitus without complications; K21.9 Gastro-esophageal reflux disease without esophagitis; E78.5 Hyperlipidemia, unspecified; I10 Essential (primary) hypertension; E87.6 Hypokalemia; E83.42 Hypomagnesemia; Z87.891 Personal history of nicotine dependence; Z79.4 Long term (current) use of insulin
CPT/HCPCS: 36415; 36592; 74177; 80048; 80053; 82962; 83036; 83605; 83690; 83735; 85025; 85610; 85730; 87040; 87045; 87046; 87899; 93005; 93010; 96361; 96374; 96375; 96376; 99284; C9113; J1170; J1200; J1885; J2060; J2405; J2765; J2930; J3480; Q9967

== ENCOUNTER 2019-09-16 08:15 | Outpatient (RCR) | payer OTHER, SELFPAY ==
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
--- NOTE | 2019-08-14 14:05 | PT.OPPOC ---
Physical, Occupational & Speech Therapy At [facility] Current Diagnoses Cervicalgia (08/14/19) Visit Care Team Role Provider Type Jacobo Ochoa MD Family Provider Non-Staff Specialty: Emergency Medicine Address: [address] [place] [address], [place], [address] Email: LEDY Razo Attending Provider Non-Staff Primary Care Provider Referring Provider Specialty: Medical Address: [facility], [address], [place], [address] Email: Plan Of Care PT-OP-T Assessment and Plan Start: 08/12/19 21:04 Freq: Status: Active Protocol: Document 08/14/19 11:24 LRN (Rec: 08/14/19 13:55 LRN [id number]) Physical Therapy Assessment Rehab Potential Rehabilitation Potential Fair Evaluation Complexity Number of Personal Factors/Comorbidities 3 or More Number of Body Systems Impaired 4 or More Clinical Presentation at Evaluation Evolving Impairments Impairments Activity Tolerance,Pain, Posture,ROM,Sensation,Soft Tissue Mobility,Strength Goals Five Impairment DECR FUNCTION (NDI 20/50, Quick DASH 11.36) Head Of Merchandise Buying Goal (LTG) Pt will show improved function per NDI less than 20. LTG Duration 10/13/19 Four Impairment Increased neck/chest pain with hiking. Nursing Home Goal (LTG) Pt will be able to resume hiking to no greater than 2/10 . LTG Duration 10/13/19 Three Impairment DECR Neck ROM (rot: 43 deg's L , 58 deg's R, ext 34 deg's, flex 48 deg's) Nursing Home Goal (LTG) Improve Neck mobility with pt able to reach overhead and drive with pain no greater than 2/10. LTG Duration 10/13/19 Two Impairment DECR STRENGTH: C/S rot (3/5 left, 4/5 right) and L Shldr ER (3+/5) Head Of Merchandise Buying Goal (LTG) Improve cervical rotators and L shoulder ER strength to no less than 4/5 to normalize muscle strength and tone and to decrease strain on the neck and decrease neck pain. LTG Duration 10/13/19 One Impairment Lacks appropriate self jail management Head Of Merchandise Buying Goal (LTG) Pt will be independent in a self care HEP to manage his neck/chest pain to no greater than 2/10. LTG Duration 10/13/19 Assessment Summary Assessment Pt presents with hypersensitivity of the neck and anterior chest. The pattern of his sensitivity is somewhat in the C3, C4 dermatome pattern. His chest hypersensitivity does not follow a dermatome or myotome pattern; therefore it may be more be more related to visceral organs. He has restriction of mobility of his neck and shoulders and minor decrease in strength in different areas, causing some of his pain with mobility. His main complaint is neck/ chest pain with soft tissue manipulation. He has very poor tolerance to pressure in those areas. His Ultrasound was unavailable to me today and because of the COVID 19 restrictions he has not had an MRI done. The pt will benefit from skilled physical therapy to improve his mobility and strength, and we will work towards decreasing his hypersensitivity of the neck and chest as the pt is able to tolerate. Other assessments of his visceral organs of his chest may be beneficial to help further identify his neck/chest pain. Physical Therapy Plan Frequency and Duration Frequency of Treatment 2x/Week Plan of Care Start Date 08/14/19 Plan of Care End Date 10/13/19 Therapeutic Interventions Therapeutic Interventions Home Exercise Program,Joint Mobilizations,Manual Therapy, Patient/Caregiver Education, Self-Care/Home Management, Sensory Integration,Soft Tissue Mobilization,Taping, Therapeutic Exercises Modalities Cold Pack/Ice Massage,Electric Stimulation,Hot Packs Other Referrals/Consults Referrals/Consults Recommended MRI neck ?Cardiopulmonary visceral organs Next Visit Focus/Plan Next Note Type Treatment Note Next Visit Plan Review and issue if needed home contrast bath treatment. Manual therapy (TrP treatment) Therapeutic ex: Cervical/ shoulder(L) ROM and strengthening (L rot, ER). V Artery check and Thoracic Outlet. Plan of Care Dates Plan of Care Start Date 08/14/19 Plan of Care End Date 10/13/19 Electronically Signed by: Karolyn Stanley, PT 08/14/19 [id number] Please Sign and Return: I have reviewed this Plan of Care and certify that the skilled therapy services above are required to meet the patient?s needs. Physician Signature Date Printed Name and Credentials Clinical Instructor Signature Printed Name and Credentials
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
== END 2019-09-17 10:03 ==
LOC: PHYS 08:15
PROVIDERS: Family Provider Emergency Medicine Emergency Medical Services; PCP Nurse Practitioner Family; Referring Provider Nurse Practitioner Family; Visit Provider Nurse Practitioner Family
DX: M54.2 Cervicalgia (principal)
CPT/HCPCS: 97110; 97140; 97162; 97535

== ENCOUNTER → 2019-09-30 | Outpatient (CLI) | payer OTHER, SELFPAY ==
[2019-08-25 22:14] VITALS: BMI 22.2
--- NOTE | 2019-09-30 16:06 | DI.MRI.S_ITS ---
PROCEDURE: MR NECK WO CON INDICATIONS: BILATERAL CALCIFICATIONS TECHNIQUE: The following images were obtained of the neck: T1-weighted and STIR images in all 3 planes. No contrast was given. COMPARISON: None. FINDINGS: This examination is limited by involuntary motion artifact. Images are repeated, with some improvement. There is mild dextroconvex cervicothoracic scoliotic curvature. [place] in age-appropriate bony degenerative changes are seen. No masses or enlarged lymph nodes are seen. The pulmonary apices are unremarkable. No significant thyroid abnormality is seen. The area of clinical concern is marked involving the left side of the neck. At this site, no masses are seen. There is a prominent sternocleidomastoid seen at this site which is slightly larger than the contralateral right sternocleidomastoid muscle.. IMPRESSION: The area of clinical concern corresponds to a normal-appearing (yet mildly prominent) left sternocleidomastoid muscle, without a mass identified. If clinically appropriate, please consider a followup soft tissue neck protocol CT with IV contrast Dictated by: Arpit Esparza M.D. on 09/30/2019 at 17:16 Approved by: Arpit Esparza M.D. on 09/30/2019 at 17:19
== END ==
PROVIDERS: Family Provider Emergency Medicine Emergency Medical Services; PCP Nurse Practitioner Family; Referring Provider Nurse Practitioner Family; Visit Provider Nurse Practitioner Family
DX: R93.89 Abnormal findings on diagnostic imaging of other specified body structures (principal); M41.83 Other forms of scoliosis, cervicothoracic region
CPT/HCPCS: 70540

== ENCOUNTER 2020-03-26 14:38 | Inpatient (IN) | payer OTHER, SELFPAY ==
[2019-08-25 22:14] VITALS: BMI 22.2
[2020-03-26] VITALS (36 sets, daily range): BP systolic 77–138; BP diastolic 46–90; PULSE 69–108; RESP 16–31; TEMP 35.9–37; O2SAT 92–100; BMI 23.6; BMI 24.0
--- NOTE | 2020-03-26 15:32 | ED_ITS ---
HPI - Abdominal Pain <LEDY Jimenez - Last Filed: 03/26/20 16:43> General Chief Complaint: Abdominal Pain Stated Complaint: Vomitting, Pancreas Flair Up Time Seen by Provider: 03/26/20 15:13 Source: patient Mode of arrival: Family Vehicle Limitations: no limitations History of Present Illness HPI narrative: This is a 65-year-old male, former smoker, who has past medical history significant for AFib, chronic pancreatitis from exposure to orange agent and two benign tumor removal, DM, diabetes related kidney disease, sepsis and multiple visits to ED for abdominal etiology presents to ED with significant other with chief complain of chills,, lightheadedness, nausea and vomiting, more than 20 episodes of watery diarrhea, left upper quadrant pain. Patient denies blood in his stools or in emesis. Patient denies steatorrhea at this time. Patient had tried Zofran multiple times but nausea and vomiting has not improved. Patient takes 4 mg Zofran 4 times a day with meals and 8 mg as needed for breakthrough nausea up to 24 mg per 24 period. Patient wanted to use for rectal promethazine but given patient has so frequent diarrhea was unable to use this. Patient also could use Compazine but with Ativan to minimize akathisia. Patient also has allergies to iodine and usually requires Benadryl and Solu- Medrol the medication. Patient denies chest pain, dyspnea, fever. Patient had a cocktail drink and quincy beer last night for celebrating Cherise which is different from his routine. Patient reports your visit for pancreatitis about [address] Chava Goldman at [facility]. GI specialist Griselda Mejia at [facility]. Related Data Home Medications Medication Instructions Recorded Confirmed clopidogrel 75 mg PO DAILY #0 04/15/08 03/27/20 diclofenac sodium [Voltaren] 1 crys TOPICAL QID PRN #0 03/14/17 03/27/20 acetaminophen 325 mg PO Q4HP PRN 09/25/17 03/27/20 cholecalciferol (vitamin D3) 3,000 unit PO DAILY 09/25/17 03/27/20 [Vitamin D3] dabigatran etexilate 150 mg PO BID 03/24/18 03/27/20 fluticasone propionate 50 mcg INTRANASAL DAILY #0 02/13/19 03/27/20 pravastatin 80 mg PO BEDTIME #0 02/13/19 03/27/20 lisinopril 2.5 mg PO DAILY 04/28/19 03/27/20 metoprolol tartrate 12.5 mg PO BID 04/28/19 03/27/20 insulin lispro 100 unit/mL See Rx Instructions SUBCUT 03/15/20 03/27/20 subcutaneous solution USEASDIRECTD ondansetron 4 mg disintegrating 4 mg PO Q6H PRN 03/15/20 03/27/20 tablet methylphenidate HCl 20 mg PO TID 03/27/20 03/27/20 Previous Rx's Medication Instructions Recorded oxycodone 5 mg PO Q4HR PRN #20 tab 03/31/18 ondansetron 8 mg disintegrating 8 mg PO Q8H PRN #30 tab 03/03/19 tablet gentamicin 0.3 % eye drops 1 drp EYE-BOTH TID PRN #5 ml 03/15/20 gpoolq-jelfjuro-wccgdar 1 cap PO QID #120 cap 03/15/20 24,000-76,000-120,000 unit capsule,delayed rel Allergies Allergy/AdvReac Type Severity Reaction Status Date / Time Iodine and Iodide Containing Allergy Severe Anaphylaxis Verified 03/26/20 15:09 Produc [IODINE AND IODIDE CONTAINING PRODUC] Sulfa (Sulfonamide Allergy Severe Anaphylaxis Verified 03/26/20 15:09 Antibiotics) [SULFA (SULFONAMIDE ANTIBIOTICS)] Review of Systems <LEDY Jimenez - Last Filed: 03/26/20 16:43> Review of Systems Narrative: General: Denies fever, (+) chills, fatigue, malaise, sweats. HEENT: Denies sinus pain, ear pain, sore throat, difficulty swallowing, dizziness. Respiratory: Denies dyspnea, cough, wheezing, hemoptysis, sputum. Cardiovascular: Denies chest pain, palpitations, orthopnea, edema. Gastrointestinal: HPI : Denies dysuria, frequency, incontinence, hematuria, urinary retention. Musculoskeletal: Denies weakness, joint pain or bony pain. Skin: Denies rash, skin lesions, or other. Neurologic: Denies weakness, headache, numbness, change in speech, confusion, seizures, incoordination. Psychiatric: No concerning psychosocial issues. 12-point review of systems is negative except for those stated above. Patient History <LEDY Jimenez - Last Filed: 03/26/20 16:43> Medical History Acute pancreatitis Campylobacter enteritis Exocrine pancreatic insufficiency GERD (gastroesophageal reflux disease) HTN (hypertension) Hyperlipidemia Insulin dependent diabetes mellitus with complications Narcolepsy Paroxysmal atrial fibrillation Paroxysmal atrial fibrillation Peripheral vascular disease Psoriasis Surgical History H/O exploratory laparotomy History of femoropopliteal bypass Hx of biopsy Family History Father Colon cancer Mother Narcolepsy Grandmother Narcolepsy Social History household members: friend(s) Smoking Status: Former smoker Smoking Status: Former smoker alcohol intake frequency: 0-2 drinks per day Substance Use Type: marijuana Exam <LEDY Jimenez - Last Filed: 03/26/20 16:43> Narrative Exam Narrative: GEN: Alert, oriented x 3, ill appearing and pale, and in moderate distress from nausea and pain. Head: Normal cephalic, atraumatic. No scalp or temporal tenderness, palpable mass or rash. EYES: Pupils are equal, round, and reactive to light and accommodation. Extraocular muscles are intact bilaterally. There is no subconjunctival hemorrhage, exudate and sclera non-icteric. ENT: Bilateral auditory canals and tympanic membranes clear. Hearing grossly intact. Nose without bleeding, purulent discharge or deviation. Facial sinuses nontender to palpate. Mucous membrane dry, no mucosal lesion. Throat without erythema, tonsillar hypertrophy or exudate. Uvula in midline, airway patent. Neck: Trachea in midline. No JVD, non-tender without lymphadenopathy. No masses or thyroid megaly. Supple, non-tender and no meningeal signs. CARDIAC: Normal regular rate and rhythm without murmurs, gallops, or rubs. No chest wall tenderness. No peripheral edema. Pale in lips. RESPIRATORY: Lungs are clear to auscultate bilaterally. No cough, wheezes, rales, or rhonchi. No stridor, respiratory distress, increase work of breathing, or accessary muscle used. ABD: Abdomen soft and non-distended. Tender to palpate in epigastric and left upper quadrant with guarding guarding and rebound tenderness to palpate. Bowel sounds decreased in 4 quadrant. There is no palpable masses or organomegaly. EXT: Full painless ROM of all extremities with no loss of sensation, strength, effusion or edema. SKIN: Cool, dry, normal color for patient. No erythema, lesions or rash over visible areas. NEUROLOGICAL: Alert and oriented to place, time and person. Sensation and motor function intact bilaterally. No facial droops, dysphasia. PSYCHIATRIC: Good judgement and reason, without hallucinations, abnormal affect or abnormal behaviors during the examination. Patient is not suicidal. Initial Vital Signs Initial Vital Signs: Vital Signs Temperature 96.7 F L 03/26/20 15:03 Pulse Rate 69 03/26/20 15:03 Respiratory Rate 03/26/20 15:03 Blood Pressure 138/90 03/26/20 15:03 Pulse Oximetry 98 03/26/20 15:03 <Morgan Hunt DO - Last Filed: 03/27/20 11:12> Initial Vital Signs Initial Vital Signs: Vital Signs Temperature 96.7 F L 03/26/20 15:03 Pulse Rate 69 03/26/20 15:03 Respiratory Rate 03/26/20 15:03 Blood Pressure 138/90 03/26/20 15:03 Pulse Oximetry 98 03/26/20 15:03 Scores [facility] Last Filed: 03/26/20 16:43> GCS [place] coma scale eye opening: Spontaneous Stephen coma scale verbal response: Orientated Stephen coma scale motor response: Obey commands Stephen coma scale total score: 15 qSOFA Altered Mental Status (GCS <15): No Respiratory rate greater than/equal to 22: No Systolic blood pressure less than or equal to 100: Yes qSOFA Total: 1 0-1 Not High Risk 1-3 High risk Course <HOWARD JimenezP - Last Filed: 03/26/20 16:43> Orders Ordered: Bisacodyl (Bisacodyl 10 Mg Supp) 10 mg MT DAILY PRN PRN Reason: Constipation Enoxaparin Sodium (Enoxaparin 40 Mg/0.4 Ml Syringe) 40 mg SUBCUT DAILY [facility] Last Admin: 03/27/20 09:10 Dose: 40 mg Documented by: BAMBI Fentanyl (Fentanyl 100 Mcg/2 Ml Inj) 5 mcg IV Q1HR PRN PRN Reason: Pain, Severe (7-10) Hydromorphone HCl (Hydromorphone 0.5 Mg Inj) 0.5 mg IV Q3H PRN PRN Reason: Pain, Moderate (4-6) Last Admin: 03/27/20 09:09 Dose: 0.5 mg Documented by: Admin: 03/27/20 01:25 Dose: 0.5 mg Documented by: Admin: 03/26/20 22:19 Dose: 0.5 mg Documented by: IAM Lactated Ringer's (Lactated Ringers) 1,000 mls @ 250 mls/hr IV CONT [facility] Last Admin: 03/27/20 09:09 Dose: 250 mls/hr Documented by: Infusion: 03/27/20 09:06 Dose: 250 mls/hr Documented by: Admin: 03/27/20 05:06 Dose: 250 mls/hr Documented by: Infusion: 03/27/20 05:06 Dose: 250 mls/hr Documented by: Admin: 03/27/20 01:25 Dose: 250 mls/hr Documented by: Infusion: 03/27/20 01:25 Dose: 250 mls/hr Documented by: Admin: 03/26/20 21:36 Dose: 250 mls/hr Documented by: IAM Morphine Sulfate (Morphine 2 Mg/Ml Inj) 2 mg IV Q4HR PRN PRN Reason: Pain, Moderate (4-6) Naloxone HCl (Naloxone 0.4 Mg/Ml Vial) 0.2 mg IV Q2MIN PRN PRN Reason: Opiate Reversal Ondansetron HCl (Ondansetron 4 Mg/2 Ml Inj) 4 mg IV Q6HR PRN PRN Reason: Nausea And Vomiting Last Admin: 03/27/20 10:23 Dose: 4 mg Documented by: BAMBI Discontinued Medications Diphenhydramine HCl (Diphenhydramine 50 Mg/Ml Vial) 25 mg IV NOW ONE Stop: 03/26/20 16:22 Last Admin: 03/26/20 16:51 Dose: 25 mg Documented by: TRINITY Diphenhydramine HCl (Diphenhydramine 50 Mg/Ml Vial) 25 mg IV NOW ONE Stop: 03/27/20 00:52 Last Admin: 03/27/20 02:47 Dose: 25 mg Documented by: JUSTUS Fentanyl (Fentanyl 100 Mcg/2 Ml Inj) 5 mcg IV Q1HR PRN PRN Reason: Pain, Severe (7-10) Hydromorphone HCl (Hydromorphone 0.5 Mg Inj) 0.5 mg IV NOW ONE Stop: 03/26/20 18:48 Last Admin: 03/26/20 18:51 Dose: 0.5 mg Documented by: TRINITY Sodium Chloride (Normal Saline 0.9%) 1,000 mls @ 1,000 mls/hr IV BOLUS ONE Stop: 03/26/20 16:27 Last Infusion: 03/26/20 16:39 Dose: 0 mls/hr Documented by: Admin: 03/26/20 16:14 Dose: 1,000 mls/hr Documented by: LIZZETTE Sodium Chloride (Normal Saline 0.9%) 1,000 mls @ 1,000 mls/hr IV BOLUS ONE Stop: 03/26/20 17:22 Last Infusion: 03/26/20 17:40 Dose: 0 mls/hr Documented by: Admin: 03/26/20 16:37 Dose: 1,000 mls/hr Documented by: TRINITY Sodium Chloride (Normal Saline 0.9%) 250 mls @ 1,000 mls/hr IV BOLUS ONE Stop: 03/26/20 17:33 Last Infusion: 03/26/20 18:12 Dose: 0 mls/hr Documented by: Admin: 03/26/20 17:52 Dose: 1,000 mls/hr Documented by: TRINITY Lactated Ringer's (Lactated Ringers) 1,000 mls @ 150 mls/hr IV CONT KATHY Last Infusion: 03/26/20 22:46 Dose: 0 mls/hr Documented by: Infusion: 03/26/20 20:47 Dose: 999 mls/hr Documented by: Infusion: 03/26/20 19:59 Dose: 150 mls/hr Documented by: Admin: 03/26/20 19:03 Dose: 150 mls/hr Documented by: TRINITY Lactated Ringer's (Lactated Ringers) 1,000 mls @ 1,000 mls/hr IV BOLUS ONE Stop: 03/26/20 21:46 Last Infusion: 03/26/20 22:23 Dose: 0 mls/hr Documented by: Admin: 03/26/20 21:35 Dose: 1,000 mls/hr Documented by: IAM Lactated Ringer's (Lactated Ringers) 1,000 mls @ 1,000 mls/hr IV BOLUS ONE Stop: 03/27/20 01:50 Last Infusion: 03/27/20 01:30 Dose: 0 mls/hr Documented by: Admin: 03/27/20 00:30 Dose: 1,000 mls/hr Documented by: JUSTUS Magnesium Sulfate (Magnesium Sulfate) 2 gm in 50 mls @ 25 mls/hr IV NOW ONE Stop: 03/27/20 04:28 Last Infusion: 03/27/20 05:10 Dose: 0 mls/hr Documented by: JUSTUS Cosigned by: RON Admin: 03/27/20 03:06 Dose: 25 mls/hr Documented by: JUSTUS Cosigned by: RON Calcium Gluconate 4.65 meq/ (Sodium Chloride) 60 mls @ 180 mls/hr IV NOW ONE Stop: 03/27/20 07:23 Last Admin: 03/27/20 09:09 Dose: 180 mls/hr Documented by: BAMBI Influenza Virus Vaccine (Influenza Hd Vaccine 0.7 Ml Syringe) 0.7 ml IM .ONCE ONE Stop: 03/26/20 21:11 Last Admin: 03/27/20 08:31 Dose: Not Given Documented by: BAMBI Lorazepam (Lorazepam 2 Mg/Ml Inj) 1 mg IV NOW ONE Stop: 03/26/20 15:29 Last Admin: 03/26/20 17:49 Dose: 1 mg Documented by: TRINITY Methylprednisolone (Methylprednisolone 125 Mg/2 Ml Vial) 125 mg IV NOW ONE Stop: 03/26/20 16:22 Last Admin: 03/26/20 16:51 Dose: 125 mg Documented by: TRINITY Metoclopramide HCl (Metoclopramide 10 Mg/2 Ml Inj) 10 mg IV Q6HR PRN PRN Reason: Nausea And Vomiting Naloxone HCl (Naloxone 0.4 Mg/Ml Vial) 0.2 mg IV Q2MIN PRN PRN Reason: Opiate Reversal Stop: 03/27/20 00:13 Ondansetron HCl (Ondansetron 4 Mg/2 Ml Inj) 4 mg IV NOW ONE Stop: 03/26/20 15:43 Last Admin: 03/26/20 16:15 Dose: 4 mg Documented by: LIZZETTE Prochlorperazine (Prochlorperazine 10 Mg/2 Ml Vial) 10 mg IV NOW ONE Stop: 03/26/20 15:29 Last Admin: 03/26/20 17:49 Dose: 10 mg Documented by: TRINITY Reevaluation(s) Reevaluation #1: Patient reports chills improved after Marga Hugger. Reports remaining nausea and he just received Zofran at this time. We discussed treating with Compazine and Ativan if Zofran not improving. Second L IV fluid small saline ordered for hypotension not improved with fluid resuscitation with 1 L of normal saline. I informed patient about hesistance to use narcotic medication due to hypotension and he verbalized the understanding. Medicating patient with Bendryl and Solu-Medrol to premedicate patient for iodine allergies and for pending CT abdomen/pelvis. Discussed findings with Dr. Hunt who is assuming the patient's care. Time: 16:28 Vital Signs Vital signs: Vital Signs - 8 hr 03/26/20 15:03 03/26/20 15:32 03/26/20 15:34 Temperature 96.7 F L Pulse Rate 69 78 77 Respiratory Rate 20 Blood Pressure 138/90 79/47 L 77/48 L Pulse Oximetry 98 99 100 03/26/20 15:40 03/26/20 15:41 03/26/20 15:49 Temperature Pulse Rate 76 73 78 Respiratory Rate Blood Pressure 81/48 L Pulse Oximetry 100 100 100 03/26/20 15:50 03/26/20 16:08 03/26/20 16:09 Temperature Pulse Rate 79 79 Respiratory Rate Blood Pressure 90/54 L 87/52 L Pulse Oximetry 98 100 03/26/20 16:10 03/26/20 16:20 03/26/20 16:30 Temperature Pulse Rate 79 82 88 Respiratory Rate Blood Pressure 86/51 L 81/46 L 88/52 L Pulse Oximetry 100 100 97 03/26/20 16:40 03/26/20 16:50 03/26/20 16:59 Temperature Pulse Rate 90 91 H 91 H Respiratory Rate Blood Pressure 90/52 L 94/51 L 92/53 L Pulse Oximetry 98 98 98 03/26/20 17:54 03/26/20 17:55 03/26/20 18:00 Temperature Pulse Rate 96 H 99 H 100 H Respiratory Rate Blood Pressure 94/54 L 91/52 L Pulse Oximetry 96 99 98 03/26/20 18:10 03/26/20 18:20 03/26/20 18:30 Temperature Pulse Rate 105 H 104 H 105 H Respiratory Rate Blood Pressure 87/54 L 85/53 L 86/52 L Pulse Oximetry 96 96 94 03/26/20 18:40 03/26/20 18:50 03/26/20 19:00 Temperature Pulse Rate 105 H 106 H 107 H Respiratory Rate Blood Pressure 87/53 L 86/53 L 86/50 L Pulse Oximetry 95 95 92 03/26/20 19:09 03/26/20 19:10 Temperature Pulse Rate 108 H Respiratory Rate Blood Pressure 89/54 L Pulse Oximetry 92 <Morgan Hunt DO - Last Filed: 03/27/20 11:12> Orders Ordered: Bisacodyl (Bisacodyl 10 Mg Supp) 10 mg MT DAILY PRN PRN Reason: Constipation Enoxaparin Sodium (Enoxaparin 40 Mg/0.4 Ml Syringe) 40 mg SUBCUT DAILY [facility] Last Admin: 03/27/20 09:10 Dose: 40 mg Documented by: BAMBI Fentanyl (Fentanyl 100 Mcg/2 Ml Inj) 5 mcg IV Q1HR PRN PRN Reason: Pain, Severe (7-10) Hydromorphone HCl (Hydromorphone 0.5 Mg Inj) 0.5 mg IV Q3H PRN PRN Reason: Pain, Moderate (4-6) Last Admin: 03/27/20 09:09 Dose: 0.5 mg Documented by: Admin: 03/27/20 01:25 Dose: 0.5 mg Documented by: Admin: 03/26/20 22:19 Dose: 0.5 mg Documented by: IAM Lactated Ringer's (Lactated Ringers) 1,000 mls @ 250 mls/hr IV CONT KATHY Last Admin: 03/27/20 09:09 Dose: 250 mls/hr Documented by: Infusion: 03/27/20 09:06 Dose: 250 mls/hr Documented by: Admin: 03/27/20 05:06 Dose: 250 mls/hr Documented by: Infusion: 03/27/20 05:06 Dose: 250 mls/hr Documented by: Admin: 03/27/20 01:25 Dose: 250 mls/hr Documented by: Infusion: 03/27/20 01:25 Dose: 250 mls/hr Documented by: Admin: 03/26/20 21:36 Dose: 250 mls/hr Documented by: IAM Morphine Sulfate (Morphine 2 Mg/Ml Inj) 2 mg IV Q4HR PRN PRN Reason: Pain, Moderate (4-6) Naloxone HCl (Naloxone 0.4 Mg/Ml Vial) 0.2 mg IV Q2MIN PRN PRN Reason: Opiate Reversal Ondansetron HCl (Ondansetron 4 Mg/2 Ml Inj) 4 mg IV Q6HR PRN PRN Reason: Nausea And Vomiting Last Admin: 03/27/20 10:23 Dose: 4 mg Documented by: BAMBI Discontinued Medications Diphenhydramine HCl (Diphenhydramine 50 Mg/Ml Vial) 25 mg IV NOW ONE Stop: 03/26/20 16:22 Last Admin: 03/26/20 16:51 Dose: 25 mg Documented by: TRINITY Diphenhydramine HCl (Diphenhydramine 50 Mg/Ml Vial) 25 mg IV NOW ONE Stop: 03/27/20 00:52 Last Admin: 03/27/20 02:47 Dose: 25 mg Documented by: JUSTUS Fentanyl (Fentanyl 100 Mcg/2 Ml Inj) 5 mcg IV Q1HR PRN PRN Reason: Pain, Severe (7-10) Hydromorphone HCl (Hydromorphone 0.5 Mg Inj) 0.5 mg IV NOW ONE Stop: 03/26/20 18:48 Last Admin: 03/26/20 18:51 Dose: 0.5 mg Documented by: MMINOR Sodium Chloride (Normal Saline 0.9%) 1,000 mls @ 1,000 mls/hr IV BOLUS ONE Stop: 03/26/20 16:27 Last Infusion: 03/26/20 16:39 Dose: 0 mls/hr Documented by: Admin: 03/26/20 16:14 Dose: 1,000 mls/hr Documented by: LIZZETTE Sodium Chloride (Normal Saline 0.9%) 1,000 mls @ 1,000 mls/hr IV BOLUS ONE Stop: 03/26/20 17:22 Last Infusion: 03/26/20 17:40 Dose: 0 mls/hr Documented by: Admin: 03/26/20 16:37 Dose: 1,000 mls/hr Documented by: MMINOR Sodium Chloride (Normal Saline 0.9%) 250 mls @ 1,000 mls/hr IV BOLUS ONE Stop: 03/26/20 17:33 Last Infusion: 03/26/20 18:12 Dose: 0 mls/hr Documented by: Admin: 03/26/20 17:52 Dose: 1,000 mls/hr Documented by: MMROLAND Lactated Ringer's (Lactated Ringers) 1,000 mls @ 150 mls/hr IV CONT KATHY Last Infusion: 03/26/20 22:46 Dose: 0 mls/hr Documented by: Infusion: 03/26/20 20:47 Dose: 999 mls/hr Documented by: Infusion: 03/26/20 19:59 Dose: 150 mls/hr Documented by: Admin: 03/26/20 19:03 Dose: 150 mls/hr Documented by: TRINITY Lactated Ringer's (Lactated Ringers) 1,000 mls @ 1,000 mls/hr IV BOLUS ONE Stop: 03/26/20 21:46 Last Infusion: 03/26/20 22:23 Dose: 0 mls/hr Documented by: Admin: 03/26/20 21:35 Dose: 1,000 mls/hr Documented by: IAM Lactated Ringer's (Lactated Ringers) 1,000 mls @ 1,000 mls/hr IV BOLUS ONE Stop: 03/27/20 01:50 Last Infusion: 03/27/20 01:30 Dose: 0 mls/hr Documented by: Admin: 03/27/20 00:30 Dose: 1,000 mls/hr Documented by: JUSTUS Magnesium Sulfate (Magnesium Sulfate) 2 gm in 50 mls @ 25 mls/hr IV NOW ONE Stop: 03/27/20 04:28 Last Infusion: 03/27/20 05:10 Dose: 0 mls/hr Documented by: JUSTUS Cosigned by: RON Admin: 03/27/20 03:06 Dose: 25 mls/hr Documented by: JUSTUS Cosigned by: RON Calcium Gluconate 4.65 meq/ (Sodium Chloride) 60 mls @ 180 mls/hr IV NOW ONE Stop: 03/27/20 07:23 Last Admin: 03/27/20 09:09 Dose: 180 mls/hr Documented by: BAMBI Influenza Virus Vaccine (Influenza Hd Vaccine 0.7 Ml Syringe) 0.7 ml IM .ONCE ONE Stop: 03/26/20 21:11 Last Admin: 03/27/20 08:31 Dose: Not Given Documented by: BAMBI Lorazepam (Lorazepam 2 Mg/Ml Inj) 1 mg IV NOW ONE Stop: 03/26/20 15:29 Last Admin: 03/26/20 17:49 Dose: 1 mg Documented by: TRINITY Methylprednisolone (Methylprednisolone 125 Mg/2 Ml Vial) 125 mg IV NOW ONE Stop: 03/26/20 16:22 Last Admin: 03/26/20 16:51 Dose: 125 mg Documented by: TRINITY Metoclopramide HCl (Metoclopramide 10 Mg/2 Ml Inj) 10 mg IV Q6HR PRN PRN Reason: Nausea And Vomiting Naloxone HCl (Naloxone 0.4 Mg/Ml Vial) 0.2 mg IV Q2MIN PRN PRN Reason: Opiate Reversal Stop: 03/27/20 00:13 Ondansetron HCl (Ondansetron 4 Mg/2 Ml Inj) 4 mg IV NOW ONE Stop: 03/26/20 15:43 Last Admin: 03/26/20 16:15 Dose: 4 mg Documented by: LIZZETTE Prochlorperazine (Prochlorperazine 10 Mg/2 Ml Vial) 10 mg IV NOW ONE Stop: 03/26/20 15:29 Last Admin: 03/26/20 17:49 Dose: 10 mg Documented by: MMINOR Vital Signs Vital signs: Vital Signs - 8 hr 03/26/20 15:03 03/26/20 15:32 03/26/20 15:34 Temperature 96.7 F L Pulse Rate 69 78 77 Respiratory Rate 20 Blood Pressure 138/90 79/47 L 77/48 L Pulse Oximetry 98 99 100 03/26/20 15:40 03/26/20 15:41 03/26/20 15:49 Temperature Pulse Rate 76 73 78 Respiratory Rate Blood Pressure 81/48 L Pulse Oximetry 100 100 100 03/26/20 15:50 03/26/20 16:08 03/26/20 16:09 Temperature Pulse Rate 79 79 Respiratory Rate Blood Pressure 90/54 L 87/52 L Pulse Oximetry 98 100 03/26/20 16:10 03/26/20 16:20 03/26/20 16:30 Temperature Pulse Rate 79 82 88 Respiratory Rate Blood Pressure 86/51 L 81/46 L 88/52 L Pulse Oximetry 100 100 97 03/26/20 16:40 03/26/20 16:50 03/26/20 16:59 Temperature Pulse Rate 90 91 H 91 H Respiratory Rate Blood Pressure 90/52 L 94/51 L 92/53 L Pulse Oximetry 98 98 98 03/26/20 17:54 03/26/20 17:55 03/26/20 18:00 Temperature Pulse Rate 96 H 99 H 100 H Respiratory Rate Blood Pressure 94/54 L 91/52 L Pulse Oximetry 96 99 98 03/26/20 18:10 03/26/20 18:20 03/26/20 18:30 Temperature Pulse Rate 105 H 104 H 105 H Respiratory Rate Blood Pressure 87/54 L 85/53 L 86/52 L Pulse Oximetry 96 96 94 03/26/20 18:40 03/26/20 18:50 03/26/20 19:00 Temperature Pulse Rate 105 H 106 H 107 H Respiratory Rate Blood Pressure 87/53 L 86/53 L 86/50 L Pulse Oximetry 95 95 92 03/26/20 19:09 03/26/20 19:10 Temperature Pulse Rate 108 H Respiratory Rate Blood Pressure 89/54 L Pulse Oximetry 92 MDM - Abdominal Pain <Bo LEDY Flynn - Last Filed: 03/26/20 16:43> Differential Diagnosis Differential diagnosis: Likely pancreatitis, small bowel obstruction and other (Sepsis, ischemic bowel, ACS) Medical Records Attestation: I reviewed the patient's medical records. Lab Data Attestation: I reviewed the patient's lab results. Result diagrams: 03/26/20 15:30 03/27/20 05:40 Labs: Lab Results 03/26/20 03/26/20 03/26/20 Range/Units 15:30 15:30 15:30 WBC 17.2 H (4.5-11.0) X10^3/uL RBC 5.74 (4.5-5.9) X10^6/uL Hgb 17.0 (13.5-17.5) g/dL Hct 52.0 (41-53) % MCV 90.6 (80-100) fL MCH 29.6 (26-34) PG MCHC 32.6 (30-36) % RDW 14.4 (11.6-14.8) % Plt Count 284 (150-400) X10^3/uL Neut % (Auto) 91.3 H (50-75) % Lymph % (Auto) 1.8 L (25-40) % [place] % (Auto) 6.3 (3-14) % Eos % (Auto) 0.4 L (2-4) % Baso % (Auto) 0.2 (0-2) % Neut # (Auto) 43976 H (0729-0874) /uL Lymph # (Auto) 300 L (1279-4222) /uL [place] # (Auto) 1100 H (0-900) /uL Eos # (Auto) 100 (0-450) /uL Baso # (Auto) 0 (0-100) /uL PT 13.7 H (10.1-12.7) SECONDS INR 1.2 (0.9-1.3) APTT 22 L D (26.4-36.2) SECONDS Sodium 141 (137-145) mmol/L Potassium 4.3 (3.4-5.1) mmol/L Chloride 107 (98-107) mmol/L Carbon Dioxide 23 (22-32) mmol/L BUN 17 (9-20) mg/dL Creatinine 1.17 (0.66-1.25) mg/dL Estimated GFR > 60.0 (>60) mL/min BUN/Creatinine Ratio 14.5 (6-22) Glucose 148 H (80-110) mg/dL Lactate (0.7-2.1) mmol/L Calcium 9.6 (8.4-10.2) mg/dL Total Bilirubin 0.7 (0.2-1.3) mg/dL AST 33 (17-59) IU/L ALT 20 (<50) IU/L Alkaline Phosphatase 78 (38-126) U/L Total Creatine Kinase (55-170) U/L CK-MB (CK-2) (<2.37) ng/mL CK-MB (CK-2) Rel Index (1.5-5.0) % Troponin I (0.01-0.034) ng/mL NT-Pro-B Natriuret Pep (<125) pg/mL Total Protein 7.6 (6.3-8.2) g/dL Albumin 4.7 (3.5-5.0) g/dL Globulin 2.9 (1.7-4.1) g/dL Albumin/Globulin Ratio 1.6 (1.0-2.8) Lipase 496 H (23-300) U/L SARS-CoV-2 (PCR) (Negative) 03/26/20 03/26/20 03/26/20 Range/Units 15:30 16:11 16:11 WBC (4.5-11.0) X10^3/uL RBC (4.5-5.9) X10^6/uL Hgb (13.5-17.5) g/dL Hct (41-53) % MCV (80-100) fL MCH (26-34) PG MCHC (30-36) % RDW (11.6-14.8) % Plt Count (150-400) X10^3/uL Neut % (Auto) (50-75) % Lymph % (Auto) (25-40) % [place] % (Auto) (3-14) % Eos % (Auto) (2-4) % Baso % (Auto) (0-2) % Neut # (Auto) (3914-8677) /uL Lymph # (Auto) (8088-2866) /uL [place] # (Auto) (0-900) /uL Eos # (Auto) (0-450) /uL Baso # (Auto) (0-100) /uL PT (10.1-12.7) SECONDS INR (0.9-1.3) APTT (26.4-36.2) SECONDS Sodium (137-145) mmol/L Potassium (3.4-5.1) mmol/L Chloride (98-107) mmol/L Carbon Dioxide (22-32) mmol/L BUN (9-20) mg/dL Creatinine (0.66-1.25) mg/dL Estimated GFR (>60) mL/min BUN/Creatinine Ratio (6-22) Glucose (80-110) mg/dL Lactate 2.5 H (0.7-2.1) mmol/L Calcium (8.4-10.2) mg/dL Total Bilirubin (0.2-1.3) mg/dL AST (17-59) IU/L ALT (<50) IU/L Alkaline Phosphatase (38-126) U/L Total Creatine Kinase 105 (55-170) U/L CK-MB (CK-2) 1.63 (<2.37) ng/mL CK-MB (CK-2) Rel Index 1.6 (1.5-5.0) % Troponin I < 0.012 (0.01-0.034) ng/mL NT-Pro-B Natriuret Pep 156 H (<125) pg/mL Total Protein (6.3-8.2) g/dL Albumin (3.5-5.0) g/dL Globulin (1.7-4.1) g/dL Albumin/Globulin Ratio (1.0-2.8) Lipase (23-300) U/L SARS-CoV-2 (PCR) (Negative) 03/26/20 03/26/20 Range/Units 16:45 18:23 WBC (4.5-11.0) X10^3/uL RBC (4.5-5.9) X10^6/uL Hgb (13.5-17.5) g/dL Hct (41-53) % MCV (80-100) fL MCH (26-34) PG MCHC (30-36) % RDW (11.6-14.8) % Plt Count (150-400) X10^3/uL Neut % (Auto) (50-75) % Lymph % (Auto) (25-40) % [place] % (Auto) (3-14) % Eos % (Auto) (2-4) % Baso % (Auto) (0-2) % Neut # (Auto) (7911-1752) /uL Lymph # (Auto) (0504-3950) /uL [place] # (Auto) (0-900) /uL Eos # (Auto) (0-450) /uL Baso # (Auto) (0-100) /uL PT (10.1-12.7) SECONDS INR (0.9-1.3) APTT (26.4-36.2) SECONDS Sodium (137-145) mmol/L Potassium (3.4-5.1) mmol/L Chloride (98-107) mmol/L Carbon Dioxide (22-32) mmol/L BUN (9-20) mg/dL Creatinine (0.66-1.25) mg/dL Estimated GFR (>60) mL/min BUN/Creatinine Ratio (6-22) Glucose (80-110) mg/dL Lactate 1.5 (0.7-2.1) mmol/L Calcium (8.4-10.2) mg/dL Total Bilirubin (0.2-1.3) mg/dL AST (17-59) IU/L ALT (<50) IU/L Alkaline Phosphatase (38-126) U/L Total Creatine Kinase (55-170) U/L CK-MB (CK-2) (<2.37) ng/mL CK-MB (CK-2) Rel Index (1.5-5.0) % Troponin I (0.01-0.034) ng/mL NT-Pro-B Natriuret Pep (<125) pg/mL Total Protein (6.3-8.2) g/dL Albumin (3.5-5.0) g/dL Globulin (1.7-4.1) g/dL Albumin/Globulin Ratio (1.0-2.8) Lipase (23-300) U/L SARS-CoV-2 (PCR) Negative (Negative) Imaging Data Chest x-ray: Radiologist's Impression: [address] [id number] ReportSigned Patient: Jann Diehl CMR#: [id number]: 5Acct:[id number]/Sex: 65 / MDate of Service: 03/26/20Loc: EDAccession Number: [id number] Procedure: XR chest 1V Ordering Provider: Bo Flynn PROCEDURE: XR CHEST 1V INDICATIONS: LUQ pain, hx of pancreatitis TECHNIQUE: One view of the chest was acquired. COMPARISON: [facility], CHEST 1 VIEW, 09/13/2015, 14:54. FINDINGS: Surgical changes and devices: None. Lungs and pleura: On this semiupright portable chest examination, no large pneumothorax or large pleural effusions are seen. No focal infiltrates are seen. Mediastinum: Mediastinal contours appear normal. Heart size is normal. Bones and chest wall: No suspicious bony lesions. Age-appropriate bony degenerative changes are seen. Overlying soft tissues appear unremarkable. IMPRESSION: Portable chest within normal limits. Dictated by: Arpit Esparza M.D. on 03/26/2020 at 15:18 Approved by: Arpit Esparza M.D. on 03/26/2020 at 15:19 ECG Data Attestation: I personally reviewed and interpreted this ECG as follows: Prior ECG tracings: available for review Interpretation: Normal sinus rhythm rate at 77. Normal [facility]. MT interval 142, QRS duration 108, QT/QTC 388/[address] changes and similar ECG tracings from 07/11/2018 MDM Narrative Medical decision making narrative: This is a 65-year-old male with complicated and extensive medical history including chronic pancreatitis and pancreatitis insufficiency, diabetes, decreased kidney function due to diabetes, peripheral artery disease and bypass surgeries, heart failure, AFib who is on anticoagulant Pradaxa and also takes Plavix for PAD presents to ED with multiple episodes of diarrhea, epigastric pain, left upper quadrant pain, nausea. Physical exam appreciated left upper quadrant and epigastric exquisite discomfort to palpate. Slight hypoactive bowel sounds. Hypotension of 77/48 upon arrival to ED with dried oral mucous membrane indicated dehydration. Patient started on IV fluid resuscitation with normal saline. Attempted two IV starts but 2nd IV start has been difficult. Hesitant to administer Dilaudid due to hypotension. Zofran was ordered for nausea and will consider using Compazine and Ativan as needed. Noticed leukocytosis of 17.2 and waiting for the rest of lab results including chemistry test and kidney function test. Patient has been premedicated with Solumederol and Benadryl for pending CT test (after the labs). Chest x-ray without acute findings. [id number]-Patient has been signed out to Dr. Hunt for continuation of care and informed physical findings, current lab results, EKG findings. <Morgan Hunt, DO - Last Filed: 03/27/20 11:12> Lab Data Labs: Lab Results 03/26/20 03/26/20 03/26/20 Range/Units 15:30 15:30 15:30 WBC 17.2 H (4.5-11.0) X10^3/uL RBC 5.74 (4.5-5.9) X10^6/uL Hgb 17.0 (13.5-17.5) g/dL Hct 52.0 (41-53) % MCV 90.6 (80-100) fL MCH 29.6 (26-34) PG MCHC 32.6 (30-36) % RDW 14.4 (11.6-14.8) % Plt Count 284 (150-400) X10^3/uL Neut % (Auto) 91.3 H (50-75) % Lymph % (Auto) 1.8 L (25-40) % [place] % (Auto) 6.3 (3-14) % Eos % (Auto) 0.4 L (2-4) % Baso % (Auto) 0.2 (0-2) % Neut # (Auto) 33685 H (2583-3932) /uL Lymph # (Auto) 300 L (0746-4936) /uL [place] # (Auto) 1100 H (0-900) /uL Eos # (Auto) 100 (0-450) /uL Baso # (Auto) 0 (0-100) /uL PT 13.7 H (10.1-12.7) SECONDS INR 1.2 (0.9-1.3) APTT 22 L D (26.4-36.2) SECONDS Sodium 141 (137-145) mmol/L Potassium 4.3 (3.4-5.1) mmol/L Chloride 107 (98-107) mmol/L Carbon Dioxide 23 (22-32) mmol/L BUN 17 (9-20) mg/dL Creatinine 1.17 (0.66-1.25) mg/dL Estimated GFR > 60.0 (>60) mL/min BUN/Creatinine Ratio 14.5 (6-22) Glucose 148 H (80-110) mg/dL Lactate (0.7-2.1) mmol/L Calcium 9.6 (8.4-10.2) mg/dL Total Bilirubin 0.7 (0.2-1.3) mg/dL AST 33 (17-59) IU/L ALT 20 (<50) IU/L Alkaline Phosphatase 78 (38-126) U/L Total Creatine Kinase (55-170) U/L CK-MB (CK-2) (<2.37) ng/mL CK-MB (CK-2) Rel Index (1.5-5.0) % Troponin I (0.01-0.034) ng/mL NT-Pro-B Natriuret Pep (<125) pg/mL Total Protein 7.6 (6.3-8.2) g/dL Albumin 4.7 (3.5-5.0) g/dL Globulin 2.9 (1.7-4.1) g/dL Albumin/Globulin Ratio 1.6 (1.0-2.8) Lipase 496 H (23-300) U/L SARS-CoV-2 (PCR) (Negative) 03/26/20 03/26/20 03/26/20 Range/Units 15:30 16:11 16:11 WBC (4.5-11.0) X10^3/uL RBC (4.5-5.9) X10^6/uL Hgb (13.5-17.5) g/dL Hct (41-53) % MCV (80-100) fL MCH (26-34) PG MCHC (30-36) % RDW (11.6-14.8) % Plt Count (150-400) X10^3/uL Neut % (Auto) (50-75) % Lymph % (Auto) (25-40) % [place] % (Auto) (3-14) % Eos % (Auto) (2-4) % Baso % (Auto) (0-2) % Neut # (Auto) (2118-0993) /uL Lymph # (Auto) (8143-9178) /uL [place] # (Auto) (0-900) /uL Eos # (Auto) (0-450) /uL Baso # (Auto) (0-100) /uL PT (10.1-12.7) SECONDS INR (0.9-1.3) APTT (26.4-36.2) SECONDS Sodium (137-145) mmol/L Potassium (3.4-5.1) mmol/L Chloride (98-107) mmol/L Carbon Dioxide (22-32) mmol/L BUN (9-20) mg/dL Creatinine (0.66-1.25) mg/dL Estimated GFR (>60) mL/min BUN/Creatinine Ratio (6-22) Glucose (80-110) mg/dL Lactate 2.5 H (0.7-2.1) mmol/L Calcium (8.4-10.2) mg/dL Total Bilirubin (0.2-1.3) mg/dL AST (17-59) IU/L ALT (<50) IU/L Alkaline Phosphatase (38-126) U/L Total Creatine Kinase 105 (55-170) U/L CK-MB (CK-2) 1.63 (<2.37) ng/mL CK-MB (CK-2) Rel Index 1.6 (1.5-5.0) % Troponin I < 0.012 (0.01-0.034) ng/mL NT-Pro-B Natriuret Pep 156 H (<125) pg/mL Total Protein (6.3-8.2) g/dL Albumin (3.5-5.0) g/dL Globulin (1.7-4.1) g/dL Albumin/Globulin Ratio (1.0-2.8) Lipase (23-300) U/L SARS-CoV-2 (PCR) (Negative) 03/26/20 03/26/20 Range/Units 16:45 18:23 WBC (4.5-11.0) X10^3/uL RBC (4.5-5.9) X10^6/uL Hgb (13.5-17.5) g/dL Hct (41-53) % MCV (80-100) fL MCH (26-34) PG MCHC (30-36) % RDW (11.6-14.8) % Plt Count (150-400) X10^3/uL Neut % (Auto) (50-75) % Lymph % (Auto) (25-40) % [place] % (Auto) (3-14) % Eos % (Auto) (2-4) % Baso % (Auto) (0-2) % Neut # (Auto) (9890-5568) /uL Lymph # (Auto) (0659-7767) /uL [place] # (Auto) (0-900) /uL Eos # (Auto) (0-450) /uL Baso # (Auto) (0-100) /uL PT (10.1-12.7) SECONDS INR (0.9-1.3) APTT (26.4-36.2) SECONDS Sodium (137-145) mmol/L Potassium (3.4-5.1) mmol/L Chloride (98-107) mmol/L Carbon Dioxide (22-32) mmol/L BUN (9-20) mg/dL Creatinine (0.66-1.25) mg/dL Estimated GFR (>60) mL/min BUN/Creatinine Ratio (6-22) Glucose (80-110) mg/dL Lactate 1.5 (0.7-2.1) mmol/L Calcium (8.4-10.2) mg/dL Total Bilirubin (0.2-1.3) mg/dL AST (17-59) IU/L ALT (<50) IU/L Alkaline Phosphatase (38-126) U/L Total Creatine Kinase (55-170) U/L CK-MB (CK-2) (<2.37) ng/mL CK-MB (CK-2) Rel Index (1.5-5.0) % Troponin I (0.01-0.034) ng/mL NT-Pro-B Natriuret Pep (<125) pg/mL Total Protein (6.3-8.2) g/dL Albumin (3.5-5.0) g/dL Globulin (1.7-4.1) g/dL Albumin/Globulin Ratio (1.0-2.8) Lipase (23-300) U/L SARS-CoV-2 (PCR) Negative (Negative) Discharge Plan Departure Patient Disposition: Admitted As Inpatient Clinical Impression: Nausea & vomiting, Pancreatitis Admit Date/Time: 03/26/20 19:35 Admit Provider: Brandi Germain <Morgan Hunt DO - Last Filed: 03/27/20 11:12> Cosign ED Attending Cosignature Attestation: I was immediately available in the department for consultation. This documentation has been reviewed and I agree with assessment and plan. Supervised by Morgan Hunt DO
[2020-03-26 15:47] LABS: Add Manual Diff / Slide Review NO; Basophils Absolute Auto 0 /uL (0-100); Basophils Percent Auto 0.2 % (0-2); Eosinophils Absolute Auto 100 /uL (0-450); Eosinophils Percent Auto 0.4 % (2-4); Lymphocytes Absolute Auto 300 /uL (1100-4500); Lymphocytes Percent Auto 1.8 % (25-40); Mean Corpuscular HGB Conc 32.6 % (30-36); Mean Corpuscular Hemoglobin 29.6 PG (26-34); Mean Corpuscular Volume 90.6 fL (80-100); Monocytes Absolute Auto 1100 /uL (0-900); Monocytes Percent Auto 6.3 % (3-14); Neutrophils Absolute Auto 15700 /uL (1500-7000); Neutrophils Percent Auto 91.3 % (50-75); Platelet Count 284 X10^3/uL (150-400); Red Blood Cell Count 5.74 X10^6/uL (4.5-5.9); Red Cell Distribution Width 14.4 % (11.6-14.8); White Blood Cell Count 17.2 X10^3/uL (4.5-11.0)
--- NOTE | 2020-03-26 16:01 | PC.NURSE ---
attempted x 2 2nd iv w/o success. Pt has h/o difficult iv access. Provider aware
[2020-03-26 16:14] LABS: INR 1.2 (0.9-1.3); Prothrombin Time 13.7 SECONDS (10.1-12.7)
[2020-03-26] MEDS: SODIUM CHLORIDE 0.9% 1,000 ML 1000 ML IV ×2 (16:14→16:37)
[2020-03-26] MEDS: ONDANSETRON 4 MG/2 ML INJ IV (16:15)
[2020-03-26 16:17] LABS: PTT Partial Thromboplastin Tim 22 SECONDS (26.4-36.2)
[2020-03-26 16:31] LABS: Alanine Aminotransferase 20 IU/L (<50); Albumin 4.7 g/dL (3.5-5.0); Albumin Globulin Ratio 1.6 (1.0-2.8); Alkaline Phosphatase 78 U/L (38-126); Aspartate Aminotransferase 33 IU/L (17-59); BUN Creatinine Ratio 14.5 (6-22); Bilirubin Total 0.7 mg/dL (0.2-1.3); Blood Urea Nitrogen 17 mg/dL (9-20); Calcium 9.6 mg/dL (8.4-10.2); Carbon Dioxide 23 mmol/L (22-32); Chloride 107 mmol/L (98-107); Creatine Kinase 105 U/L (55-170); Estimated Glomerular Filt Rate > 60.0 mL/min (>60); Globulin 2.9 g/dL (1.7-4.1); Glucose 148 mg/dL (80-110); HEMOLYSIS 43 (0-50); Lipase 496 U/L (23-300); Potassium 4.3 mmol/L (3.4-5.1); Sodium 141 mmol/L (137-145); Total Protein 7.6 g/dL (6.3-8.2)
[2020-03-26 16:32] LABS: Lactate (Lactic Acid) 2.5 mmol/L (0.7-2.1)
[2020-03-26 16:42] LABS: Troponin I < 0.012 ng/mL (0.01-0.034)
--- NOTE | 2020-03-26 16:44 | DI.CT.S_ITS ---
PROCEDURE: CT ABDOMEN PELVIS W CON INDICATIONS: LUQ and epigastric pain, N/V/D, hx of pancreatitis TECHNIQUE: After the administration of intravenous contrast, 5 mm thick sections acquired from the diaphragm to the symphysis. 5 mm coronal and sagittal reformats were acquired. For radiation dose reduction, the following was used: automated exposure control, adjustment of mA and/or kV according to patient size. The patient was pre-medicated for the iodine allergy prior to this study. No immediate contrast reaction was experienced. COMPARISON: [facility], CT, CT ABDOMEN PELVIS W CON, 08/25/2019, 20:11. [facility], CT, CT ABDOMEN PELVIS W CON, 08/29/2019, 10:23. FINDINGS: Image quality: Excellent. ABDOMEN: Lung bases: Lung bases are clear. Heart size is normal. A small hiatal hernia is incidentally noted. Solid organs: Liver is normal in size and enhancement. Gallbladder wall is not thickened. Biliary system is non dilated. In this patient with this given history, scrutiny is given to the pancreas. No significant pancreatic abnormality is seen on these images. The pancreas enhances normally, without necrotic regions. No pancreatic ductal dilatation can be seen. No peripancreatic inflammatory changes are seen. Spleen is normal in size and enhancement. Generalized thickening is seen of the adrenal glands, yet without focal adrenal nodules. Kidneys demonstrate normal size and enhancement, without hydronephrosis. Peritoneum and bowel: Bowel loops demonstrate normal wall thickness and caliber. No free fluid or air. Colonic diverticulosis is seen, without findings of active diverticulitis. A normal appendix is incidentally noted. Nodes and vessels: No retroperitoneal or mesenteric adenopathy by size criteria. Aorta and inferior vena cava are normal in size. Atherosclerotic calcification is noted. Incidental note is made of a retroaortic left renal vein. Miscellaneous: No ventral hernias. PELVIS: Genitourinary: Bladder wall thickness is normal. Miscellaneous: No inguinal hernias or adenopathy. Bones: No suspicious bony lesions. No vertebral body compression fractures. Degenerative changes are seen, which are worst at the L5-S1 level. IMPRESSION: No imaging explanation is found for this patient's presenting symptoms. Normal appearing pancreas. Incidental note is made of: Generalized adrenal gland thickening Retroaortic left renal vein Diverticulosis, without active diverticulitis Normal appendix Focal L5-S1 degenerative change. Dictated by: Arpitshashank Esparza M.D. on 03/26/2020 at 16:39 Approved by: Arpit Esparza M.D. on 03/26/2020 at 16:45
[2020-03-26 16:46] LABS: CKMB % Relative Index 1.6 % (1.5-5.0); Creatine Kinase MB 1.63 ng/mL (<2.37)
[2020-03-26] MEDS: diphenhydrAMINE 50 MG/ML VIAL 25 MG IV (16:51)
[2020-03-26] MEDS: methylPREDNISolone 125 MG/2 ML VIAL IV (16:51)
[2020-03-26 16:55] LABS: NT-proBNP (BNP-Adult 18+) 156 pg/mL (<125)
[2020-03-26 17:09] LABS: COVID19 -Nasal RAPID Negative (Negative)
[2020-03-26] MEDS: PROCHLORPERAZINE 10 MG/2 ML VIAL IV (17:49)
[2020-03-26] MEDS: LORazepam 2 MG/ML INJ 1 MG IV (17:49)
[2020-03-26] MEDS: SODIUM CHLORIDE 0.9% 250 ML 1000 ML IV (17:52)
[2020-03-26 18:11] LABS: Reflexed Lactate in 2 Hours Y
[2020-03-26 18:46] LABS: Lactate 2HR (Lactic Acid Rflx) 1.5 mmol/L (0.7-2.1)
[2020-03-26] MEDS: HYDROMORPHONE 0.5 MG INJ IV ×2 (18:51→22:19)
[2020-03-26] MEDS: LACTATED RINGERS 1,000 ML 150 ML IV (19:03)
[2020-03-26] MEDS: LACTATED RINGERS 1,000 ML 1000 ML IV (21:35)
[2020-03-26] MEDS: LACTATED RINGERS 1,000 ML 250 ML IV (21:36)
[2020-03-27] VITALS (15 sets, daily range): BP systolic 89–117; BP diastolic 46–56; PULSE 80–97; RESP 13–34; TEMP 36.2–36.8; O2SAT 94–100
[2020-03-27 00:02] LABS: Magnesium 1.4 mg/dL (1.6-2.3)
[2020-03-27 00:03] LABS: Alanine Aminotransferase 16 IU/L (<50); Albumin 3.5 g/dL (3.5-5.0); Albumin Globulin Ratio 1.5 (1.0-2.8); Alkaline Phosphatase 58 U/L (38-126); Aspartate Aminotransferase 22 IU/L (17-59); BUN Creatinine Ratio 20.9 (6-22); Bilirubin Total 0.5 mg/dL (0.2-1.3); Blood Urea Nitrogen 18 mg/dL (9-20); Calcium 8.2 mg/dL (8.4-10.2); Carbon Dioxide 26 mmol/L (22-32); Chloride 110 mmol/L (98-107); Estimated Glomerular Filt Rate > 60.0 mL/min (>60); Globulin 2.4 g/dL (1.7-4.1); Glucose 156 mg/dL (80-110); HEMOLYSIS 18 (0-50); Potassium 4.2 mmol/L (3.4-5.1); Sodium 140 mmol/L (137-145); Total Protein 5.9 g/dL (6.3-8.2)
[2020-03-27] MEDS: LACTATED RINGERS 1,000 ML 1000 ML IV (00:30)
--- NOTE | 2020-03-27 01:04 | PM.HP.1 ---
History of Present Illness History of Present Illness Date Patient Seen: 03/26/20 Time Patient Seen: 20:49 Chief complaint: Vomitting, Pancreas Flair Up Narrative: Patient is a 65-year-old male, former smoker, who presented to ED with significant complain of chills,, lightheadedness, nausea and vomiting, more than 20 episodes of watery diarrhea, left upper quadrant pain. Pt has a past medical history significant for AFib, chronic pancreatitis from exposure to orange agent, endocrine pancreatic insufficiency, and two benign tumor removal, DM Type II, diabetes related kidney disease, sepsis and multiple visits to ED for abdominal etiology. Patient denies blood in his stools or in emesis. Patient denies steatorrhea at this time. Patient had tried Zofran multiple times but nausea and vomiting has not improved. Patient takes 4 mg Zofran 4 times a day with meals and 8 mg as needed for breakthrough nausea up to 24 mg per 24 period. Patient wanted to use for rectal promethazine but given patient has so frequent diarrhea was unable to use this. Patient also could use Compazine but with Ativan to minimize akathisia. Patient also has allergies to iodine and usually requires Benadryl and Solu-Medrol medication. Patient denies chest pain, dyspnea, fever. Patient had a cocktail drink and quincy beer last night for celebrating which is different from his routine. Patient reports your visit for pancreatitis about 6 months ago. Patient's vitals in ER 96.7 BP 89/54, HR 108, R 20, SaO2 92%, WBC 17.2, BNP 156, lipase 496, glucose 148, CT of abdomen and pelvis demonstrated no imaging that would explain patient's presentation, and was negative for necrosis, normal pancreas, portable chest x-ray was within normal limits. Once patient was admitted he verbalized that his chills and body aches had improved he has continued abdominal pain approximately a 3/10 but tolerable he states the whirleys have stopped the room spinning, he last vomited and had a bowel movement in the ER, denies any difficulty with urination, patient denies chest pain shortness of breath. Patient denies any recent illness injury or trauma to provoke most recent attack. Patient will be admitted for acute pancreatitis. Patient History Medical History Acute pancreatitis Campylobacter enteritis Exocrine pancreatic insufficiency GERD (gastroesophageal reflux disease) HTN (hypertension) Hyperlipidemia Insulin dependent diabetes mellitus with complications Narcolepsy Paroxysmal atrial fibrillation Paroxysmal atrial fibrillation Peripheral vascular disease Psoriasis Surgical History H/O exploratory laparotomy History of femoropopliteal bypass Hx of biopsy Family & Social History Family History Father Colon cancer Mother Narcolepsy Grandmother Narcolepsy Social History: household members lives alone in his basement, and rents the upstairs Prior Living Arrangements House Safety & Behavioral: Feels Safe in Current Yes Environment Been Physically Hurt or No Threatened By a Person Suicidal Ideation Description None Tobacco & Substance use: Smoking Status Former smoker alcohol intake frequency 0-2 drinks per day Substance Use Type marijuana Meds Home Medications and Allergies Home Medications Medication Instructions Recorded Confirmed Type clopidogrel 75 mg PO DAILY #0 04/15/08 03/27/20 History diclofenac sodium [Voltaren] 1 crys TOPICAL QID PRN #0 03/14/17 03/27/20 History acetaminophen 325 mg PO Q4HP PRN 09/25/17 03/27/20 History cholecalciferol (vitamin D3) 3,000 unit PO DAILY 09/25/17 03/27/20 History [Vitamin D3] dabigatran etexilate 150 mg PO BID 03/24/18 03/27/20 History oxycodone 5 mg PO Q4HR PRN #20 tab 03/31/18 03/27/20 Rx fluticasone propionate 50 mcg INTRANASAL DAILY #0 02/13/19 03/27/20 History pravastatin 80 mg PO BEDTIME #0 02/13/19 03/27/20 History ondansetron 8 mg disintegrating 8 mg PO Q8H PRN #30 tab 03/03/19 03/27/20 Rx tablet lisinopril 2.5 mg PO DAILY 04/28/19 03/27/20 History metoprolol tartrate 12.5 mg PO BID 04/28/19 03/27/20 History gentamicin 0.3 % eye drops 1 drp EYE-BOTH TID PRN #5 ml 03/15/20 03/27/20 Rx insulin lispro 100 unit/mL See Rx Instructions SUBCUT 03/15/20 03/27/20 History subcutaneous solution USEASDIRECTD [id number] 1 cap PO QID #120 cap 03/15/20 03/27/20 Rx 24,000-76,000-120,000 unit capsule,delayed rel ondansetron 4 mg disintegrating 4 mg PO Q6H PRN 03/15/20 03/27/20 History tablet methylphenidate HCl TID 03/27/20 History Allergies Allergy/AdvReac Type Severity Reaction Status Date / Time Iodine and Iodide Containing Allergy Severe Anaphylaxis Verified 03/26/20 15:09 Produc [IODINE AND IODIDE CONTAINING PRODUC] Sulfa (Sulfonamide Allergy Severe Anaphylaxis Verified 03/26/20 15:09 Antibiotics) [SULFA (SULFONAMIDE ANTIBIOTICS)] Review of Systems Review of Systems ROS: Yes All systems reviewed with the patient and are negative except as otherwise documented Constitutional Constitutional: Reports system reviewed and no additional complaints, except as documented, Reports fatigue, Reports malaise and Reports poor appetite Eyes Eyes: Reports system reviewed and no additional complaints, except as documented and Reports other visual disturbances ENT Ears, Nose, Mouth, and Throat: Yes system reviewed and no additional complaints, except as documented Cardiovascular Cardiovascular: Reports system reviewed and no additional complaints, except as documented Respiratory Respiratory: Reports system reviewed and no additional complaints, except as documented Gastrointestinal Gastrointestinal: Reports loose stools, Reports nausea and Reports vomiting Genitourinary Genitourinary: Reports system reviewed and no additional complaints, except as documented Musculoskeletal Musculoskeletal: Reports system reviewed and no additional complaints, except as documented and Reports myalgias Integumentary/Breasts Skin/Breast: Reports system reviewed and no additional complaints, except as documented Psychiatric Psychiatric: Reports system reviewed and no additional complaints, except as documented Endocrine Endocrine: Reports system reviewed and no additional complaints, except as documented and Reports fatigue Hematologic/Lymphatic Hematologic/Lymphatic: Reports system reviewed and no additional complaints, except as documented Allergic/Immunologic Allergic/Immunologic: Reports system reviewed and no additional complaints, except as documented Exam Vital Signs (past 8 hours): - 03/26/20 17:54 03/26/20 17:55 03/26/20 18:00 Temperature Pulse Rate 96 H 99 H 100 H Respiratory Rate Blood Pressure 94/54 L 91/52 L Pulse Oximetry 96 99 98 03/26/20 18:10 03/26/20 18:20 03/26/20 18:30 Temperature Pulse Rate 105 H 104 H 105 H Respiratory Rate Blood Pressure 87/54 L 85/53 L 86/52 L Pulse Oximetry 96 96 94 03/26/20 18:40 03/26/20 18:50 03/26/20 19:00 Temperature Pulse Rate 105 H 106 H 107 H Respiratory Rate Blood Pressure 87/53 L 86/53 L 86/50 L Pulse Oximetry 95 95 92 03/26/20 19:09 03/26/20 19:10 03/26/20 19:20 Temperature Pulse Rate 108 H 108 H 107 H Respiratory Rate Blood Pressure 89/54 L 82/48 L Pulse Oximetry 92 92 93 03/26/20 19:30 03/26/20 19:40 03/26/20 19:50 Temperature Pulse Rate 108 H 107 H 105 H Respiratory Rate Blood Pressure 84/53 L 82/53 L 81/51 L Pulse Oximetry 94 94 94 03/26/20 20:00 03/26/20 20:10 03/26/20 20:30 Temperature 98.1 F Pulse Rate 104 H 103 H 98 H Respiratory Rate 16 Blood Pressure 86/50 L 82/52 L 81/47 L Pulse Oximetry 94 95 93 03/26/20 21:18 03/26/20 22:00 03/26/20 23:00 Temperature 98.6 F 98.1 F Pulse Rate 99 H 96 H 97 H Respiratory Rate 19 31 H 16 Blood Pressure 89/55 L 86/51 L 98/53 L Pulse Oximetry 96 95 93 03/27/20 00:00 Temperature Pulse Rate 97 H Respiratory Rate 34 H Blood Pressure 92/50 L Pulse Oximetry 98 Oxygen Delivery Method Room Air Oxygen Flow Rate 0 Narrative Exam Narrative: General: Patient is a well-developed male, well-nourished in mild discomfort and no acute distress at this time. HEENT: Normocephalic, atraumatic, extraocular muscles intact, oral pharynx is clear and mucous membranes are moist. Neck is supple and symmetric, trachea is midline, no adenopathy, no thyroid enlargement, nontender, no masses palpated. Negative for JVD Chest: Normal AP diameter and contour without kyphoscoliosis, no nasal flaring, retractions, or tachypneic labored Lungs: Auscultation of all lung godfrey are clear without adventitious sounds, wheezes, rhonchi, or rales. Cardio: S1 & S2 with regular rate and rhythm without murmur, rubs, or gallops, no carotid bruit, no cardiac pulsations present. Abdomen: Soft mildly distended diffuse tenderness, increased in the left upper & lower, and epigastric quadrants over right. Unable to palpate due to patients pain. Bowel sounds are present in all 4 quadrants without guarding or rebound, no CVA tenderness. Musculoskeletal: Muscle strength and tone are equal within normal limits, no deformity, Willy crepitus, effusions, cyanosis, clubbing or edema present. Full range of motion intact radial and pedal pulses are normal. Skin: Warm dry and intact without rashes, ulcerations or petechiae. Neuro: Alert and orientated x3, strength is +5/5 in all extremities, sensation to touch intact, no gross deficits noted of cranial nerves. Psych: Patient has a well-kept appearance, appropriate affect, mental status attitude thought context and judgment are appropriate for age. Objective Labs Result Diagrams: 03/26/20 15:30 03/26/20 23:45 Labs: Laboratory Results - last 24 hr 03/26/20 03/26/20 03/26/20 15:30 15:30 15:30 WBC 17.2 H RBC 5.74 Hgb 17.0 Hct 52.0 MCV 90.6 MCH 29.6 MCHC 32.6 RDW 14.4 Plt Count 284 Neut % (Auto) 91.3 H Lymph % (Auto) 1.8 L [place] % (Auto) 6.3 Eos % (Auto) 0.4 L Baso % (Auto) 0.2 Neut # (Auto) 02221 H Lymph # (Auto) 300 L [place] # (Auto) 1100 H Eos # (Auto) 100 Baso # (Auto) 0 PT 13.7 H INR 1.2 APTT 22 L D Sodium 141 Potassium 4.3 Chloride 107 Carbon Dioxide 23 BUN 17 Creatinine 1.17 Estimated GFR > 60.0 BUN/Creatinine Ratio 14.5 Glucose 148 H Lactate Calcium 9.6 Magnesium Total Bilirubin 0.7 AST 33 ALT 20 Alkaline Phosphatase 78 Total Creatine Kinase CK-MB (CK-2) CK-MB (CK-2) Rel Index Troponin I NT-Pro-B Natriuret Pep Total Protein 7.6 Albumin 4.7 Globulin 2.9 Albumin/Globulin Ratio 1.6 Lipase 496 H Nasal Screen MRSA (PCR) SARS-CoV-2 (PCR) 03/26/20 03/26/20 03/26/20 15:30 16:11 16:11 WBC RBC Hgb Hct MCV MCH MCHC RDW Plt Count Neut % (Auto) Lymph % (Auto) [place] % (Auto) Eos % (Auto) Baso % (Auto) Neut # (Auto) Lymph # (Auto) [place] # (Auto) Eos # (Auto) Baso # (Auto) PT INR APTT Sodium Potassium Chloride Carbon Dioxide BUN Creatinine Estimated GFR BUN/Creatinine Ratio Glucose Lactate 2.5 H Calcium Magnesium Total Bilirubin AST ALT Alkaline Phosphatase Total Creatine Kinase 105 CK-MB (CK-2) 1.63 CK-MB (CK-2) Rel Index 1.6 Troponin I < 0.012 NT-Pro-B Natriuret Pep 156 H Total Protein Albumin Globulin Albumin/Globulin Ratio Lipase Nasal Screen MRSA (PCR) SARS-CoV-2 (PCR) 03/26/20 03/26/20 03/26/20 16:45 18:23 20:30 WBC RBC Hgb Hct MCV MCH MCHC RDW Plt Count Neut % (Auto) Lymph % (Auto) [place] % (Auto) Eos % (Auto) Baso % (Auto) Neut # (Auto) Lymph # (Auto) [place] # (Auto) Eos # (Auto) Baso # (Auto) PT INR APTT Sodium Potassium Chloride Carbon Dioxide BUN Creatinine Estimated GFR BUN/Creatinine Ratio Glucose Lactate 1.5 Calcium Magnesium Total Bilirubin AST ALT Alkaline Phosphatase Total Creatine Kinase CK-MB (CK-2) CK-MB (CK-2) Rel Index Troponin I NT-Pro-B Natriuret Pep Total Protein Albumin Globulin Albumin/Globulin Ratio Lipase Nasal Screen MRSA (PCR) Negative for mrsa SARS-CoV-2 (PCR) Negative 03/26/20 03/26/20 23:45 23:45 WBC RBC Hgb Hct MCV MCH MCHC RDW Plt Count Neut % (Auto) Lymph % (Auto) [place] % (Auto) Eos % (Auto) Baso % (Auto) Neut # (Auto) Lymph # (Auto) [place] # (Auto) Eos # (Auto) Baso # (Auto) PT INR APTT Sodium 140 Potassium 4.2 Chloride 110 H Carbon Dioxide 26 BUN 18 Creatinine 0.86 Estimated GFR > 60.0 BUN/Creatinine Ratio 20.9 Glucose 156 H Lactate Calcium 8.2 L Magnesium 1.4 L Total Bilirubin 0.5 AST 22 ALT 16 Alkaline Phosphatase 58 Total Creatine Kinase CK-MB (CK-2) CK-MB (CK-2) Rel Index Troponin I NT-Pro-B Natriuret Pep Total Protein 5.9 L Albumin 3.5 Globulin 2.4 Albumin/Globulin Ratio 1.5 Lipase Nasal Screen MRSA (PCR) SARS-CoV-2 (PCR) Assessment & Plan Assessment & Plan narrative: This patient requires acute care inpatient hospital management for acute pancreatitis. After failing outpatient management of chronic pancreatitis and previous admissions for colitis and pancreatic issues 04/29/2019- 05/16/2019 and 08/25/2019 through 08/30/2019. The patient is at much higher risk for medical and surgical complications because of medical history significant for AFib, chronic pancreatitis from exposure to orange agent, endocrine pancreatic insufficiency, and two benign tumor removal, DM Type II, diabetes related kidney disease, sepsis . These factors increase the difficulty and complexity of medical and surgical interventions and increases the chances of poor outcomes such as morbidity and mortality, 1. Acute pancreatitis, acute on chronic, secondary to Chronic pancreatic insufficiency with secondary diabetes mellitus, present on admission. Differential diagnosis includes chronic pancreatitis (lipase normal as to be expected) vs. microscopic colitis vs. Ischemic colitis vs. less likely infectious colitis. - Patient's vitals in ER 96.7 BP 89/54, HR 108, R 20, SaO2 92%, WBC 17.2, BNP 156, lipase 496, glucose 148, CT of abdomen and pelvis demonstrated no imaging that would explain patient's presentation, and was negative for necrosis, normal pancreas, portable chest x-ray was within normal limits. -MOAPA II Score: 15, mortality risk of 11-18% with a score greater than 8. -Previous admissions for colitis and pancreatic issues 04/29/2019- 05/16/2019 and 08/25/2019 through 08/30/2019 -Continue antiemetics and as needed pain medication. -rehydration: Patient received 3 L of LR in the emergency room, and has received 2 L upon admit, rehydration to continue with a goal of 0.5 cc/kilogram per hour of urine output then IV fluids to be continued LR at 250 cc/hour-monitor for fluid overload -patient NPO-started on trial clear liquids once patient has sustained absence vomiting and diarrhea, the goal to resolve in 24-48 hours, once patient has completed a trial of clear liquids may advance to a low-fiber diet as tolerated -monitor hematocrit and BUN q.8 hours-if BUN continues to rise will increase fluids and give 2 L bolus of crystalloid -patient admit to ICU to be monitored on tele medicine, vital signs q. 1 hours, intake and output monitored Q shift, weight measure daily, diet:NPO -a.m. Labs amylase, CRP, CMP and CBC -Holding patients Creon 3 times a day with meals. Lantus 18 units BID. Utilizing low-dose correctional insulin per protocol. 2. Acute hypomagnesemia,present on admission. Active. -magnesium 1.4 -Likely secondary to diarrhea. -Ordered magnesium sulfate 2 g IV x1. -Will continue check magnesium, Calcium, & level daily and replete as necessary. 3. Acute hypocalcemia, present on admission, active -calcium 8.2 -order in a.m. calcium gluconate 1 g 4.65 mEq IV 4. Hypertension, not present on admission. -Hold lisinopril 20 mg daily and metoprolol tartrate 50 mg b.i.d. 5. Hyperlipidemia and peripheral vascular disease, chronic, present on admission. Stable. -Hold continue clopidogrel 75 mg daily. 6. GERD, present on admission. Stable. -Hold pantoprazole 40 mg daily. 7. Paroxysmal atrial fibrillation, not present on admission. Stable. -Hold metoprolol tartrate 50 mg twice daily and Pradaxa 150 mg twice daily. -consults ordered physical therapy, occupational therapy,dietary. Code status: Full Surrogate/plan of care: Daughter Andria WORTHINGTON PCR: Negative VTE prophylaxis: SCDs, enoxaparin 40 mg to be stopped once patient returns to p.o. foods and fluids he will restart his Plavix and Pradaxa PCP Dr. Chava Goldman at [place]. GI specialist Griselda Mejia at [facility]. Quality VTE Deep Vein Thrombosis/Pulmonary Embolism Present on Admission: No
[2020-03-27] MEDS: HYDROMORPHONE 0.5 MG INJ IV ×6 (01:25→20:52)
[2020-03-27] MEDS: LACTATED RINGERS 1,000 ML 250 ML IV ×4 (01:25→14:04)
[2020-03-27] MEDS: diphenhydrAMINE 50 MG/ML VIAL 25 MG IV ×2 (02:47→22:39)
[2020-03-27] MEDS: MAGNESIUM SULFATE 2 GM/50 ML PIGGYBACK IV (03:06)
[2020-03-27 06:19] LABS: Lactate Dehydrogenase 313 U/L (313-618)
[2020-03-27 06:22] LABS: BUN Creatinine Ratio 22.7 (6-22); Blood Urea Nitrogen 15 mg/dL (9-20); Calcium 8.1 mg/dL (8.4-10.2); Carbon Dioxide 25 mmol/L (22-32); Chloride 110 mmol/L (98-107); Estimated Glomerular Filt Rate > 60.0 mL/min (>60); Glucose 130 mg/dL (80-110); HEMOLYSIS 16 (0-50); Sodium 138 mmol/L (137-145)
--- NOTE | 2020-03-27 06:29 | PC.NURSE ---
Sales Account Associate Note-Patient is A/Ox4, fatigued, denies nausea, rates abdominal pain 4-6/10, medicated with IV Dilaudid per prn orders. BP remains on the hypotensive side, 90s/50s MAP > 65, LR @ 250ml/hr, also extra LR 1000ml bolus given, Mg+ 2gm IV given x1 for Mg+ 1.4, increased to 2.0 in am. 1x dose 25ng IV Benadryl given for sleep. Voided carson urine, sent to lab.
[2020-03-27 06:31] LABS: NT-proBNP (BNP-Adult 18+) 195 pg/mL (<125)
[2020-03-27] MEDS: CALCIUM GLUCONATE 4.65 MEQ in SODIUM CHLORIDE 0.9% 50 ML 180 ML IV (09:09)
[2020-03-27] MEDS: ENOXAPARIN 40 MG/0.4 ML SYRINGE SUBCUT (09:10)
[2020-03-27] MEDS: ONDANSETRON 4 MG/2 ML INJ IV ×3 (10:23→21:35)
--- NOTE | 2020-03-27 10:55 | PT.IIE ---
Surgical History (Last Reviewed 03/27/20 @ 01:22 [facility] H/O exploratory laparotomy History of femoropopliteal bypass Hx of biopsy Medical History (Last Reviewed 03/27/20 @ 01:22 by JULIET HillDILLON) Acute pancreatitis Campylobacter enteritis Exocrine pancreatic insufficiency GERD (gastroesophageal reflux disease) HTN (hypertension) Hyperlipidemia Insulin dependent diabetes mellitus with complications Narcolepsy Paroxysmal atrial fibrillation Paroxysmal atrial fibrillation Peripheral vascular disease Psoriasis Physical Therapy Inpatient Evaluation/Re-Eval M1 PT/OT-IP Prior Functional Status Start: 03/27/20 10:10 Freq: NEEDED Status: Active Protocol: Document 03/27/20 10:42 [facility]AK (Rec: 03/27/20 10:55 [facility] [id number]) Medical Review Prior Functional Status Medical History Reviewed Yes Communication A & O x 4 Mobility and Gait independent, frequently hikes Activities of Daily Living and IADL's independent Prior Functional Level (Other details) No assistance required Social History Household Members friend(s) Living Arrangements House Number of Floors (Floors) Two Floors Number of Stairs To Enter/Railing? 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 PT-IP Current Condition Start: 03/27/20 10:10 Freq: NEEDED Status: Active Protocol: Document 03/27/20 10:42 SAK (Rec: 03/27/20 10:55 [facility] [id number]) Physical Therapy Current Condition Current Condition Evaluation Date 03/27/20 Treatment Diagnosis weakness Onset Date 03/26/19 M3 PT-IP Subjective Start: 03/27/20 10:10 Freq: NEEDED Status: Active Protocol: Document 03/27/20 10:42 SAK (Rec: 03/27/20 10:55 [facility] [id number]) Subjective Physical Therapy Visit Type Type Initial Evaluation Visit Start Time 10:16 Visit Stop Time 10:41 Total Visit Minutes 25 Number of [employer] Visits 0 Physical Therapy Visit Comments Patient Comments Patient wants to get up, wants to be able to go home. C/o dizziness when walking in the hallway Patient Goals Go home Therapy Pain Assessment Pain When Pain Assessed At Rest Pain Present Pain Present Pain Reported Location Abdomen Intensity 3 M4 PT-IP Mobility and Gait Start: 03/27/20 10:10 Freq: NEEDED Status: Active Protocol: Document 03/27/20 10:42 [facility] (Rec: 03/27/20 10:55 [facility] [id number]) PT-Bed Mobility Assessment Supine to Sit Supine to Sit Standby Assistance,Head of Bed Elevated Sit to Supine Sit to Supine Standby Assistance Scooting Scooting to Edge of Bed Standby Assistance PT-Transfer Assessment Sit to and From Stand Sit to and from Stand Contact Guard Assistance Equipment Transfer Assistive Device Gait Belt Orthotic/Prosthetic Devices or Brace: No Transfer Ability Level of Assist Contact Guard Assistance Gait Assessment Gait Gait Assistance Required: Contact Guard Assist,Minimum Assistance Distance (Feet) 30 Assistive Devices Assistive Device Gait Belt Orthotic/Prosthetic Devices or Brace: No Gait Deviations General Gait Pattern Decreased Stride Length, Decreased Feet Clearance Comments Gait Comments Patient highly motivated to ambulate in hallway; patient holding/pushing IV pole. Patient c/o dizziness but initially wanted to continue gait, then agreed to go back to room due to overwhelming fatigue. Nursing walked behind PT and patient with chair for safety. Patient assisted back to bed, BP 117/ 56. Patient left in care of nursing. Stair Climbing Assessment Comments Stair Climbing Comments Not done due to dizziness and fatigue PT-Balance Assessment Sitting Balance and Reactions Static Sitting Balance Ability Normal Dynamic Sitting Balance Ability Normal Standing Balance and Reactions Static Standing Balance Ability Good Dynamic Standing Balance Ability Good M5 PT-IP Objective Assessments Start: 03/27/20 10:10 Freq: NEEDED Status: Active Protocol: Document 03/27/20 10:42 [facility] (Rec: 03/27/20 10:55 [facility] [id number]) Orientation Orientation/Cognition Level of Alertness Alert Orientation Name,Age,Place,Situation Safety Awareness Understands Safety Issues Memory Description No Deficits Noted Gross Range of Motion Upper Extremity ROM Assessment Within Functional Limits Lower Extremity ROM Assessment Within Functional Limits Strength Lower Extremity Strength Assessment Within Functional Limits Coordination Assessment Gross Coordination Gross Coordination WNL Sensation Assessment Sensation Gross Sensation WNL M7 PT-IP Assessment and Plan Start: 03/27/20 10:10 Freq: NEEDED Status: Active Protocol: Document 03/27/20 10:42 [facility] (Rec: 03/27/20 10:55 [facility] [id number]) PT Summary Assessment and Plan Potential Rehabilitation Potential Good Status of Condition at Evaluation Evolving Summary Impairments Strength,Gait,Activity Tolerance Assessment Summary Patient presents with decrease in general strength, activity tolerance, and gait ability due to medical issues from pancreatitis. Became dizzy and c/o overhwleming fatigue when ambulating in hallway holding onto IV pole, returned patient to bed, nursing following with chair for safety. BP 117/56 after gait. Left in care of nurse. Goals Bed Mobility Goal Independent Transfer Goal Independent Gait Goal Independent Gait Distance 200' Days to Meet Goals 2 Frequency of Treatment Frequency Of Treatment Twice a Day Treatment Plan Physical Therapy Treatment Plan Bed Mobility Training,Transfer Training,Gait Training, Therapeutic Exercise Recommendations To Nursing Amount of Assist Needed 1 Person Assist Discharge Recommendations PT Discharge Recommendations Home with Assistance Transportation Needs at Discharge Private Vehicle
--- NOTE | 2020-03-27 12:13 | OT.IP.EVAL ---
Past Medical History ([facility] Review[facility] 03/27/20 @ 01:22 [facility] Acute pancreatitis Campylobacter enteritis Exocrine pancreatic insufficiency GERD (gastroesophageal reflux disease) HTN (hypertension) Hyperlipidemia Insulin dependent diabetes mellitus with complications Narcolepsy Paroxysmal atrial fibrillation Paroxysmal atrial fibrillation Peripheral vascular disease Psoriasis Surgical History (Last Reviewed 03/27/20 @ 01:22 [facility] H/O exploratory laparotomy History of femoropopliteal bypass Hx of biopsy Occupational Therapy Inpatient Evaluation/Re-Eval M1 PT/OT-IP Prior Functional Status Start: 03/27/20 10:10 Freq: NEEDED Status: Active Protocol: Document 03/27/20 16:26 CGR (Rec: 03/27/20 16:36 CGR [id number]) Medical Review Prior Functional Status Medical History Reviewed Yes Communication Pt is an effective verbal communicator. Mobility and Gait independent, frequently hikes Activities of Daily Living and IADL's independent Prior Functional Level (Other details) Pt lives on the second floor of his home and rents out the bottom floor apartment. Pt states that he has to walk up a driveway from where he gross to enter the home as his renter currently gross in the garage. Social History Household Members friend(s) Living Arrangements House Number of Floors (Floors) Two Floors Number of Stairs To Enter/Railing? To enter from garage level, pt has 3 steps up into the house , then a flight of stairs all with B rails. 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 M2 OT-IP Current Condition Start: 03/27/20 16:25 Freq: Status: Active Protocol: Document 03/27/20 16:26 CGR (Rec: 03/27/20 16:36 CGR [id number]) Occupational Therapy Current Condition Current Condition Evaluation Date 03/27/20 Treatment Diagnosis Acute pancreatitis Diagnosis Onset Date 03/26/20 M3 OT- IP Subjective and Pain Start: 03/27/20 16:25 Freq: Status: Active Protocol: Document 03/27/20 16:26 CGR (Rec: 03/27/20 16:36 CGR [id number]) OT- Subjective Occupational Therapy Visit Type Type Initial Evaluation Visit Start Time 11:50 Visit Stop Time 12:13 Total Visit Minutes 23 Notes Pt's girlfriend present throughout OT Pain Assessment Pain When Pain Assessed At Rest Pain Present Pain Present Pain Reported Location Abdomen Intensity 6 Scale Used Numeric (0 - 10) Management Techniques Modification of Treatment,Re- positioning M4 OT- IP ADL's Start: 03/27/20 16:25 Freq: Status: Active Protocol: Document 03/27/20 16:26 CGR (Rec: 03/27/20 16:36 R [id number]) OT [id number] Comments OT Self-Feeding Comments not meal time OT ADL-Grooming Comments OT Grooming Comments pt declined OT ADL-Oral Care Comments Oral Care Comments pt declined OT ADL-Dressing General Eval Upper Body Dressing Ability Independent Lower Body Dressing Ability Independent OT ADL-Toileting General Evaluation Toileting Ability Independent OT ADL-Bathing Comments OT Bathing Comments not performed M5 OT- IP IADL's Start: 03/27/20 16:25 Freq: Status: Active Protocol: Document 03/27/20 16:26 CGR (Rec: 03/27/20 16:36 R [id number]) OT-Instrumental Activities of Daily Living Deficits IADL Deficits Identified No Deficits Home Safety Awareness Awareness of Need for Assistance at Home Good Awareness Ability to Problem Solve Emergency Able to Problem Solve Situations Medication Management Medication Management No Deficits Identified Money Management Money Management No Deficits Identified Meal Preparation Meal Preparation No Deficits Identified Anatomic Pathology Assistant Anatomic Pathology Assistant No Deficits Identified M6 OT- IP Functional Cognition Start: 03/27/20 16:25 Freq: Status: Active Protocol: Document 03/27/20 16:26 CGR (Rec: 03/27/20 16:36 R [id number]) Cognitive Factors Limiting Selfcare Function Cognitive Ability Level of Alertness Alert Patient Orientation Name,Age,Birthday,Month,Date, Year,Day of Week,Place, Situation Attention Span Ability Capable of Focused Attention, Capable of Sustained Attention Ability to Follow Commands Able to Follow Multi-Step Commands Memory Description No Deficits Noted Safety Awareness No Deficits Noted Problem Solving Ability No deficits Noted OT- Vision and Hearing OT- Hearing Assessment OT- Hearing Assessment Hearing Impaired OT- Vision Assessment Visual Acuity Glasses For Reading Visual Attentiveness WFL Occular Pursuits WFL Visual Convergence WFL M7 OT- IP Mobility and Balance Start: 03/27/20 16:25 Freq: Status: Active Protocol: Document 03/27/20 16:26 CGR (Rec: 03/27/20 16:36 CGR [id number]) OT- Bed Mobility Assessment Rolling Level of Assistance Independent Supine to Sit Supine to Sit Assist Independent Sit to Supine Sit to Supine Assist Independent Scooting Scooting to Edge of Bed Independent OT-Transfer Assessment Sit to and From Stand Sit to and from Stand Standby Assistance Transfers Transfer Ability Standby Assistance Technique Transfer Destination Bed,Toilet Transfer Technique Stand Step Pivot Devices Transfer Assistive Devices Gait Belt OT- Balance Assessment Sitting Balance and Reactions Static Sitting Balance Ability Normal Dynamic Sitting Balance Ability Good M8 OT- IP Objective Assessments Start: 03/27/20 16:25 Freq: Status: Active Protocol: Document 03/27/20 16:26 CGR (Rec: 03/27/20 16:36 CGR [id number]) OT Gross Range of Motion Upper Extremity Range of Motion Assessment Within Functional Limits OT Strength Upper Extremity Strength Assessment Within Functional Limits Comments Strength Comments grossly 4+/5 OT- Coordination Assessment Upper Extremity Finger to Nose Test Within Functional Limits Finger Tapping Test Within Functional Limits OT-Muscle Tone Assessment Muscle Tone WNL Yes OT Sensation Assessment Comments Summary Comments Pt states he has long 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 Neuorpathy of the ands/ arms is from B elbows distal. Edema Edema Absent M9 OT- IP Assessment and Plan Start: 03/27/20 16:25 Freq: Status: Active Protocol: Document 03/27/20 16:26 CGR (Rec: 03/27/20 16:36 CGR [id number]) OT Summary Assessment and Plan Potential Rehabilitation Potential Excellent Analytic Complexity at Evaluation Low Summary OT Impairments Functional Mobility Progress Towards Goals Safe For Discharge Assessment Summary Pt presents as a low complexity evaluation s/p admit for acute pancreatitis. Pt is close to his baseline for functional mobility and at his baseline for ADLs. No further OT needs. Frequency of Treatment Frequency Of Treatment Discharge Discharge Recommendations OT Discharge Recommendations Home Transportation Needs at Discharge Private Vehicle
--- NOTE | 2020-03-27 13:27 | CM.DANOTE ---
DCP: Case received, EMR reviewed and met with patient. Introduced self and role. Was able to get information from patient regarding his baseline activity level prior to hospitalization. DCP assessment completed with information currently available. Patient is a 65 year old male who admitted yesterday evening to the care of the hospitalist team. PCP: Dr. Goldman at the [place] Payer: confirmed: [facility]. Patient came to the hospital via private vehicle secondary to nausea and vomiting. Patient holds diagnosis of pancreatitis/small bowel obstruction. Patient does have history of pancreatitis, as well as a-fib. Met with patient in his room. He is alert and oriented, independent at baseline. Patient stated that he is independent at baseline, and resides in [place]. He does have friends that can assist him if needed. P: DCP to continue to follow and will be available for any resources needed. Patient should be able to go home when he is medically stable. Catalina Pollack RN/Braiding Machine Operator
[2020-03-27] MEDS: LIDOCAINE PATCH 1 EACH ADH..PATCH TOP (14:04)
--- NOTE | 2020-03-27 15:08 | P.PN_ITS ---
Subjective Subjective Date Patient Seen: 03/27/20 Interval history: The patient is a 65-year-old male with a history of recurrent pancreatitis who presents for abrupt onset abdominal pain elevated lipase and recurrent pancreatitis. Patient reports he continues to have abdominal pain and nausea. He has no appetite. He has pain which is radiating to his back. Exam Vital Signs (past 8 hours): - 03/27/20 08:00 03/27/20 09:00 03/27/20 10:00 Temperature 97.6 F Pulse Rate 85 86 83 Respiratory Rate 16 14 20 Blood Pressure 105/54 L 101/54 L 117/56 L Pulse Oximetry 96 100 99 03/27/20 12:00 Temperature 97.1 F L Pulse Rate 82 Respiratory Rate 19 Blood Pressure 111/53 L Pulse Oximetry 99 Oxygen Delivery Method Room Air Oxygen Flow Rate 0 Narrative Exam Narrative: Pleasant gentleman who appears uncomfortable lying in bed Lungs: Clear to auscultation Cardiac exam: Irregularly irregular, normal S1-S2, 2/6 systolic ejection murmur Abdomen: Soft, tender in the left upper quadrant and left mid quadrant, no rebound tenderness, no board-like rigidity, no palpable masses Extremities: No edema Objective Labs Result Diagrams: 03/26/20 15:30 03/27/20 05:40 Labs: Laboratory Results - last 24 hr 03/26/20 03/26/20 03/26/20 15:30 15:30 15:30 WBC 17.2 H RBC 5.74 Hgb 17.0 Hct 52.0 MCV 90.6 MCH 29.6 MCHC 32.6 RDW 14.4 Plt Count 284 Neut % (Auto) 91.3 H Lymph % (Auto) 1.8 L [place] % (Auto) 6.3 Eos % (Auto) 0.4 L Baso % (Auto) 0.2 Neut # (Auto) 74514 H Lymph # (Auto) 300 L [place] # (Auto) 1100 H Eos # (Auto) 100 Baso # (Auto) 0 PT 13.7 H INR 1.2 APTT 22 L D Sodium 141 Potassium 4.3 Chloride 107 Carbon Dioxide 23 BUN 17 Creatinine 1.17 Estimated GFR > 60.0 BUN/Creatinine Ratio 14.5 Glucose 148 H Lactate Calcium 9.6 Magnesium Total Bilirubin 0.7 AST 33 ALT 20 Alkaline Phosphatase 78 Lactate Dehydrogenase Total Creatine Kinase CK-MB (CK-2) CK-MB (CK-2) Rel Index Troponin I NT-Pro-B Natriuret Pep Total Protein 7.6 Albumin 4.7 Globulin 2.9 Albumin/Globulin Ratio 1.6 Lipase 496 H Nasal Screen MRSA (PCR) SARS-CoV-2 (PCR) 03/26/20 03/26/20 03/26/20 15:30 16:11 16:11 WBC RBC Hgb Hct MCV MCH MCHC RDW Plt Count Neut % (Auto) Lymph % (Auto) [place] % (Auto) Eos % (Auto) Baso % (Auto) Neut # (Auto) Lymph # (Auto) [place] # (Auto) Eos # (Auto) Baso # (Auto) PT INR APTT Sodium Potassium Chloride Carbon Dioxide BUN Creatinine Estimated GFR BUN/Creatinine Ratio Glucose Lactate 2.5 H Calcium Magnesium Total Bilirubin AST ALT Alkaline Phosphatase Lactate Dehydrogenase Total Creatine Kinase 105 CK-MB (CK-2) 1.63 CK-MB (CK-2) Rel Index 1.6 Troponin I < 0.012 NT-Pro-B Natriuret Pep 156 H Total Protein Albumin Globulin Albumin/Globulin Ratio Lipase Nasal Screen MRSA (PCR) SARS-CoV-2 (PCR) 03/26/20 03/26/20 03/26/20 16:45 18:23 20:30 WBC RBC Hgb Hct MCV MCH MCHC RDW Plt Count Neut % (Auto) Lymph % (Auto) [place] % (Auto) Eos % (Auto) Baso % (Auto) Neut # (Auto) Lymph # (Auto) [place] # (Auto) Eos # (Auto) Baso # (Auto) PT INR APTT Sodium Potassium Chloride Carbon Dioxide BUN Creatinine Estimated GFR BUN/Creatinine Ratio Glucose Lactate 1.5 Calcium Magnesium Total Bilirubin AST ALT Alkaline Phosphatase Lactate Dehydrogenase Total Creatine Kinase CK-MB (CK-2) CK-MB (CK-2) Rel Index Troponin I NT-Pro-B Natriuret Pep Total Protein Albumin Globulin Albumin/Globulin Ratio Lipase Nasal Screen MRSA (PCR) Negative for mrsa SARS-CoV-2 (PCR) Negative 03/26/20 03/26/20 03/27/20 23:45 23:45 05:40 WBC RBC Hgb Hct MCV MCH MCHC RDW Plt Count Neut % (Auto) Lymph % (Auto) [place] % (Auto) Eos % (Auto) Baso % (Auto) Neut # (Auto) Lymph # (Auto) [place] # (Auto) Eos # (Auto) Baso # (Auto) PT INR APTT Sodium 140 Potassium 4.2 Chloride 110 H Carbon Dioxide 26 BUN 18 Creatinine 0.86 Estimated GFR > 60.0 BUN/Creatinine Ratio 20.9 Glucose 156 H Lactate Calcium 8.2 L Magnesium 1.4 L Total Bilirubin 0.5 AST 22 ALT 16 Alkaline Phosphatase 58 Lactate Dehydrogenase Total Creatine Kinase CK-MB (CK-2) CK-MB (CK-2) Rel Index Troponin I NT-Pro-B Natriuret Pep 195 H Total Protein 5.9 L Albumin 3.5 Globulin 2.4 Albumin/Globulin Ratio 1.5 Lipase Nasal Screen MRSA (PCR) SARS-CoV-2 (PCR) 03/27/20 03/27/20 05:40 05:40 WBC RBC Hgb Hct MCV MCH MCHC RDW Plt Count Neut % (Auto) Lymph % (Auto) [place] % (Auto) Eos % (Auto) Baso % (Auto) Neut # (Auto) Lymph # (Auto) [place] # (Auto) Eos # (Auto) Baso # (Auto) PT INR APTT Sodium 138 Potassium 4.0 Chloride 110 H Carbon Dioxide 25 BUN 15 Creatinine 0.66 Estimated GFR > 60.0 BUN/Creatinine Ratio 22.7 H Glucose 130 H Lactate Calcium 8.1 L Magnesium 2.0 Total Bilirubin AST ALT Alkaline Phosphatase Lactate Dehydrogenase 313 Total Creatine Kinase CK-MB (CK-2) CK-MB (CK-2) Rel Index Troponin I NT-Pro-B Natriuret Pep Total Protein Albumin Globulin Albumin/Globulin Ratio Lipase Nasal Screen MRSA (PCR) SARS-CoV-2 (PCR) PFSH Medical History Acute pancreatitis Campylobacter enteritis Exocrine pancreatic insufficiency GERD (gastroesophageal reflux disease) HTN (hypertension) Hyperlipidemia Insulin dependent diabetes mellitus with complications Narcolepsy Paroxysmal atrial fibrillation Paroxysmal atrial fibrillation Peripheral vascular disease Psoriasis Surgical History H/O exploratory laparotomy History of femoropopliteal bypass Hx of biopsy Family History Father Colon cancer Mother Narcolepsy Grandmother Narcolepsy Social History Smoking Status: Former smoker Assessment & Plan Assessment & Plan narrative: This patient requires acute care inpatient hospital management for acute pancreatitis. After failing outpatient management of chronic pancreatitis and previous admissions for colitis and pancreatic issues 04/29/2019- 05/16/2019 and 08/25/2019 through 08/30/2019. The patient is at much higher risk for medical and surgical complications because of medical history significant for AFib, chronic pancreatitis from exposure to orange agent, endocrine pancreatic insufficiency, and two benign tumor removal, DM Type II, diabetes related kidney disease, sepsis . These factors increase the di fficulty and complexity of medical and surgical interventions and increases the chances of poor outcomes such as morbidity and mortality, 1. Acute pancreatitis, acute on chronic, secondary to Chronic pancreatic insufficiency with secondary diabetes mellitus, present on admission. 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 Acute hypomagnesemia,present on admission. Active. -magnesium 1.4 -Likely secondary to diarrhea. -Ordered magnesium sulfate 2 g IV x1. -Will continue check magnesium, Calcium, & level daily and replete as necessary. -will follow closely 3. Acute hypocalcemia, present on admission, active -calcium 8.2 -order in a.m. calcium gluconate 1 g 4.65 mEq IV -will continue to follow 4. Hypertension, not present on admission. -Hold lisinopril 20 mg daily and metoprolol tartrate 50 mg b.i.d. 5. Hyperlipidemia and peripheral vascular disease, chronic, present on admission. Stable. -Hold continue clopidogrel 75 mg daily. 6. GERD, present on admission. Stable. -Hold pantoprazole 40 mg daily. 7. Paroxysmal atrial fibrillation, not present on admission. Stable. -Hold metoprolol tartrate 50 mg twice daily and Pradaxa 150 mg twice daily. -once patient can tolerate oral intake will resume both metoprolol and Pradaxa for atrial fibrillation -consults ordered physical therapy, occupational therapy,dietary. Quality VTE Deep Vein Thrombosis/Pulmonary Embolism Present on Admission: No
[2020-03-27] MEDS: LACTATED RINGERS 1,000 ML 150 ML IV (20:52)
[2020-03-28] VITALS: BP 101/57; PULSE 95; RESP 18; TEMP 36.3; O2SAT 94
[2020-03-28] MEDS: HYDROMORPHONE 0.5 MG INJ IV ×5 (01:23→16:14)
[2020-03-28] MEDS: LACTATED RINGERS 1,000 ML 150 ML IV (03:41)
[2020-03-28] MEDS: ONDANSETRON 4 MG/2 ML INJ IV ×2 (03:48→08:40)
[2020-03-28 03:55] VITALS: BP 101/62; PULSE 74; RESP 18; TEMP 36.5; O2SAT 97
[2020-03-28] MEDS: LIDOCAINE PATCH 1 EACH ADH..PATCH TOP (05:50)
--- NOTE | 2020-03-28 06:43 | PC.NURSE ---
[facility] Management Specialist Note-Patient slept intermittently, medicated with 0.5mg IV Dilaudid for LUQ pain that radiates to Lt flank, also using lidocaine patch and warm blankets. IV Zofran given for nausea, no vomitting. CBGs 79 and 74. LR @ 150ml/hr. Showered in am, tolerated well, SO in room.
[2020-03-28 08:00] VITALS: BP 100/51; PULSE 80; RESP 19; TEMP 36.6; O2SAT 99
[2020-03-28] MEDS: ENOXAPARIN 40 MG/0.4 ML SYRINGE SUBCUT (08:37)
[2020-03-28] MEDS: PROMETHAZINE 25 MG SUPP PR (10:04)
--- NOTE | 2020-03-28 10:26 | P.PN_ITS ---
Subjective Subjective Date Patient Seen: 03/28/20 Interval history: The patient is a 65-year-old male who was admitted to the hospital for acute on chronic pancreatitis. He continues to feel poorly. He has been unable to tolerate any oral intake. He has had no vomiting. He continues to have abdominal pain. The patient was hypoglycemic last evening. Blood sugars have been 60s to 70s. His back pain persists as well. Exam Vital Signs (past 8 hours): - 03/28/20 03:55 03/28/20 08:00 Temperature 97.7 F 97.8 F Pulse Rate 74 80 Respiratory Rate 18 19 Blood Pressure 101/62 100/51 L Pulse Oximetry 97 99 Oxygen Delivery Method Room Air Oxygen Flow Rate 0 Narrative Exam Narrative: Ill-appearing male lying in bed Lungs: Clear to auscultation Cardiac exam: Regular rate and rhythm normal S1-S2 with a 2/6 systolic ejection murmur Abdomen: Soft, scaphoid, positive bowel tones, tender in the left mid quadrant and left upper quadrant, no rebound tenderness, no board-like rigidity Extremities: No edema Skin exam: No lesion Psychiatric exam: Patient is appropriate, no delusions, no hallucinations, normal speech Objective Labs Result Diagrams: 03/26/20 15:30 03/27/20 05:40 [facility] Medical History Acute pancreatitis Campylobacter enteritis Exocrine pancreatic insufficiency GERD (gastroesophageal reflux disease) HTN (hypertension) Hyperlipidemia Insulin dependent diabetes mellitus with complications Narcolepsy Paroxysmal atrial fibrillation Paroxysmal atrial fibrillation Peripheral vascular disease Psoriasis Surgical History H/O exploratory laparotomy History of femoropopliteal bypass Hx of biopsy Family History Father Colon cancer Mother Narcolepsy Grandmother Narcolepsy Social History household members: friend(s) Smoking Status: Former smoker Assessment & Plan Assessment & Plan narrative: Impression 1. 65-year-old male admitted to the hospital with acute on chronic pancreatitis -initial lipase 495 -abdominal pelvic CT shows no pancreatic inflammation or pancreatic necrosis -patient is still symptomatic with nausea and abdominal pain -hypoglycemia likely reflecting the fact that the patient is not eating -will continue anti nausea, pain medications, and IV hydration 2. Hyperlipidemia -continue statin 3. Hypoglycemia -will start D5 half-normal saline until patient is able to take oral intake 4. Hypertension blood pressure well controlled -will continue oral blood pressure medications to include lisinopril and metoprolol 5. Chronic persistent atrial fibrillation -Pradaxa on hold, will resume when he can tolerate p.o. intake -continue metoprolol Quality VTE Deep Vein Thrombosis/Pulmonary Embolism Present on Admission: No
[2020-03-28] MEDS: DEXTROSE 5%-0.45NS W/KCL 20MEQ 1,000 ML 125 MEQ IV ×2 (10:45→19:03)
[2020-03-28 12:00] VITALS: BP 100/56; PULSE 76; RESP 17; TEMP 36.4; O2SAT 98
[2020-03-28 12:02] LABS: Add Manual Diff / Slide Review NO; Basophils Absolute Auto 0 /uL (0-100); Basophils Percent Auto 0.3 % (0-2); Eosinophils Absolute Auto 100 /uL (0-450); Eosinophils Percent Auto 1.2 % (2-4); Hematocrit 41.1 % (41-53); Hemoglobin 13.4 g/dL (13.5-17.5); Lymphocytes Absolute Auto 1000 /uL (1100-4500); Lymphocytes Percent Auto 13.8 % (25-40); Mean Corpuscular HGB Conc 32.7 % (30-36); Mean Corpuscular Hemoglobin 29.6 PG (26-34); Mean Corpuscular Volume 90.4 fL (80-100); Monocytes Absolute Auto 500 /uL (0-900); Monocytes Percent Auto 7.1 % (3-14); Neutrophils Absolute Auto 5500 /uL (1500-7000); Neutrophils Percent Auto 77.6 % (50-75); Platelet Count 196 X10^3/uL (150-400); Red Blood Cell Count 4.55 X10^6/uL (4.5-5.9); White Blood Cell Count 7.1 X10^3/uL (4.5-11.0)
[2020-03-28 12:18] LABS: Alanine Aminotransferase 14 IU/L (<50); Albumin 3.8 g/dL (3.5-5.0); Albumin Globulin Ratio 1.6 (1.0-2.8); Alkaline Phosphatase 53 U/L (38-126); Aspartate Aminotransferase 25 IU/L (17-59); BUN Creatinine Ratio 15.1 (6-22); Bilirubin Total 0.4 mg/dL (0.2-1.3); Blood Urea Nitrogen 11 mg/dL (9-20); Calcium 8.6 mg/dL (8.4-10.2); Carbon Dioxide 29 mmol/L (22-32); Chloride 105 mmol/L (98-107); Estimated Glomerular Filt Rate > 60.0 mL/min (>60); Globulin 2.4 g/dL (1.7-4.1); Glucose 82 mg/dL (80-110); HEMOLYSIS < 15 (0-50); Potassium 3.5 mmol/L (3.4-5.1); Sodium 139 mmol/L (137-145); Total Protein 6.2 g/dL (6.3-8.2)
[2020-03-28] MEDS: ONDANSETRON 8 MG in SODIUM CHLORIDE 0.9% 50 ML 216 ML IV (13:55)
--- NOTE | 2020-03-28 14:42 | PT.IPTN ---
Current Diagnoses Acute pancreatitis without necrosis or infection, unspecified (03/26/20) Physical Therapy Treatment Note M2 PT-IP Current Condition Start: 03/27/20 10:10 Freq: NEEDED Status: Active Protocol: Document 03/27/20 10:42 SAK (Rec: 03/27/20 10:55 SAK [id number]) Physical Therapy Current Condition Current Condition Evaluation Date 03/27/20 Treatment Diagnosis weakness Onset Date 03/26/19 M3 PT-IP Subjective Start: 03/27/20 10:10 Freq: NEEDED Status: Active Protocol: Document 03/28/20 14:30 CLB (Rec: 03/28/20 14:54 CLB [id number]) Subjective Physical Therapy Visit Type Type Treatment Note Visit Start Time 14:30 Visit Stop Time 14:42 Total Visit Minutes 12 Number of DEDENTER Visits 1 Physical Therapy Visit Comments Patient Comments Pt wants to walk, pt states eager to go home. Patient Goals Go home Therapy Pain Assessment Pain When Pain Assessed At Rest Pain Present Pain Present Pain Reported M4 PT-IP Mobility and Gait Start: 03/27/20 10:10 Freq: NEEDED Status: Active Protocol: Document 03/28/20 14:30 CLB (Rec: 03/28/20 14:54 CLB [id number]) PT-Bed Mobility Assessment Supine to Sit Supine to Sit Standby Assistance,Head of Bed Elevated Sit to Supine Sit to Supine Standby Assistance Scooting Scooting to Edge of Bed Standby Assistance PT-Transfer Assessment Sit to and From Stand Sit to and from Stand Contact Guard Assistance Equipment Transfer Assistive Device Gait Belt Orthotic/Prosthetic Devices or Brace: No Transfer Ability Level of Assist Contact Guard Assistance Comments Mobility Comments Pt requires SBA for bed mobility and CGA for sit-stand . Gait Assessment Gait Gait Assistance Required: Contact Guard Assist,1 Person Assist Distance (Feet) 140 Assistive Devices Assistive Device Gait Belt Orthotic/Prosthetic Devices or Brace: No Gait Deviations General Gait Pattern Decreased Stride Length, Decreased Feet Clearance Comments Gait Comments Pt very motivated to ambulate making goal of once around the ICU nursing station. Pt uses shuffled gait and uses both hands on IV pump handle for stability. Pt friend present and provided WC follow. Stair Climbing Assessment Comments Stair Climbing Comments pt has two flights of stairs, unable to to low activity tolerance. M5 PT-IP Objective Assessments Start: 03/27/20 10:10 Freq: NEEDED Status: Active Protocol: Document 03/27/20 10:42 SAK (Rec: 03/27/20 10:55 SAK [id number]) Orientation Orientation/Cognition Level of Alertness Alert Orientation Name,Age,Place,Situation Safety Awareness Understands Safety Issues Memory Description No Deficits Noted Gross Range of Motion Upper Extremity ROM Assessment Within Functional Limits Lower Extremity ROM Assessment Within Functional Limits Strength Lower Extremity Strength Assessment Within Functional Limits Coordination Assessment Gross Coordination Gross Coordination WNL Sensation Assessment Sensation Gross Sensation WNL M7 PT-IP Assessment and Plan Start: 03/27/20 10:10 Freq: NEEDED Status: Active Protocol: Document 03/28/20 14:30 CLB (Rec: 03/28/20 14:54 CLB [id number]) PT Summary Assessment and Plan Potential Rehabilitation Potential Good Status of Condition at Evaluation Evolving Summary Impairments Strength,Gait,Activity Tolerance Assessment Summary Pt with mild dizziness with gait. Pt ambulated CGA ~140ft holding IV pole for stability. Pt required standing rest breaks during gait. Goals Bed Mobility Goal Independent Transfer Goal Independent Gait Goal Independent Gait Distance 200' Days to Meet Goals 2 Frequency of Treatment Frequency Of Treatment Once a Day Treatment Plan Other Recommendations and Next Treatment Pt wants to try three therapy Focus stairs tomorrow, more if able. Ambulation Recommendations To Nursing Amount of Assist Needed 1 Person Assist Discharge Recommendations PT Discharge Recommendations Home with Assistance Transportation Needs at Discharge Private Vehicle
[2020-03-28 15:43] VITALS: BP 94/60; PULSE 69; RESP 18; TEMP 36.6; O2SAT 98
[2020-03-28] MEDS: HYDROMORPHONE 1 MG INJ IV (19:04)
[2020-03-28 20:00] VITALS: BP 100/62; PULSE 72; RESP 18; TEMP 36.4; O2SAT 98
[2020-03-28] MEDS: diphenhydrAMINE 50 MG/ML VIAL 25 MG IV (20:56)
[2020-03-29] VITALS (8 sets, daily range): BP systolic 93–132; BP diastolic 52–70; PULSE 65–76; RESP 16–20; TEMP 36.2–37.1; O2SAT 95–98
[2020-03-29] MEDS: HYDROMORPHONE 1 MG INJ IV ×5 (00:23→19:30)
[2020-03-29] MEDS: ONDANSETRON 8 MG in SODIUM CHLORIDE 0.9% 50 ML IV (00:29)
[2020-03-29] MEDS: DEXTROSE 5%-0.45NS W/KCL 20MEQ 1,000 ML 125 MEQ IV (03:41)
--- NOTE | 2020-03-29 06:02 | PC.NURSE ---
0600- Patient informed of plan to transfer to another room. 212 is the room number. Report called to ANIKET Valdivia.
[2020-03-29 06:28] LABS: Alanine Aminotransferase 12 IU/L (<50); Albumin 3.2 g/dL (3.5-5.0); Albumin Globulin Ratio 1.4 (1.0-2.8); Alkaline Phosphatase 45 U/L (38-126); Aspartate Aminotransferase 20 IU/L (17-59); BUN Creatinine Ratio 9.9 (6-22); Bilirubin Total 0.4 mg/dL (0.2-1.3); Blood Urea Nitrogen 7 mg/dL (9-20); Calcium 8.2 mg/dL (8.4-10.2); Carbon Dioxide 29 mmol/L (22-32); Chloride 107 mmol/L (98-107); Estimated Glomerular Filt Rate > 60.0 mL/min (>60); Globulin 2.3 g/dL (1.7-4.1); Glucose 109 mg/dL (80-110); HEMOLYSIS < 15 (0-50); Potassium 3.7 mmol/L (3.4-5.1); Sodium 138 mmol/L (137-145); Total Protein 5.5 g/dL (6.3-8.2)
--- NOTE | 2020-03-29 06:28 | PC.NURSE ---
0605 Pt transferred from ICU to ACU in stable condition. He is on room air and has a left hand PIV that has D5-1/2NS-K20 infusing at 125mL/h. He is alert and oriented x4. C/O abdominal pain 6/10; 1mg dilaudid administered. C/O mild nausea, but still has 2 hours left before next dose of Zofran. Informed patient of Promethazine suppository if he feels like he needs it; he wishes to hold off on that at this time. Blood sugar at 0610 was 99. The bed alarm is on. No s/sx of distress.
[2020-03-29] MEDS: LIDOCAINE PATCH 1 EACH ADH..PATCH TOP (09:02)
[2020-03-29] MEDS: ENOXAPARIN 40 MG/0.4 ML SYRINGE SUBCUT (09:02)
[2020-03-29] MEDS: ONDANSETRON 4 MG/2 ML INJ 8 MG (09:48)
[2020-03-29] MEDS: ONDANSETRON 8 MG in SODIUM CHLORIDE 0.9% 50 ML 216 ML IV ×2 (10:33→19:31)
--- NOTE | 2020-03-29 11:16 | PT.IPTN ---
Current Diagnoses Acute pancreatitis without necrosis or infection, unspecified (03/26/20) Physical Therapy Treatment Note M2 PT-IP Current Condition Start: 03/27/20 10:10 Freq: NEEDED Status: Active Protocol: Document 03/27/20 10:42 SAK (Rec: 03/27/20 10:55 SAK [id number]) Physical Therapy Current Condition Current Condition Evaluation Date 03/27/20 Treatment Diagnosis weakness Onset Date 03/26/19 M3 PT-IP Subjective Start: 03/27/20 10:10 Freq: NEEDED Status: Active Protocol: Document 03/29/20 11:01 CLB (Rec: 03/29/20 11:31 CLB [id number]) Subjective Physical Therapy Visit Type Type Treatment Note Visit Start Time 11:01 Visit Stop Time 11:16 Total Visit Minutes 15 Number of FARMER VEGETABLE Visits 2 Physical Therapy Visit Comments Patient Comments Pt states he slept well last night and is feeling better today. Pt states his friend Crystal will assist him at at home when discharged. Patient Goals Go home Therapy Pain Assessment Pain When Pain Assessed At Rest Pain Present Pain Present Pain Reported M4 PT-IP Mobility and Gait Start: 03/27/20 10:10 Freq: NEEDED Status: Active Protocol: Document 03/29/20 11:01 CLB (Rec: 03/29/20 11:31 CLB [id number]) PT-Bed Mobility Assessment Supine to Sit Supine to Sit Standby Assistance Sit to Supine Sit to Supine Standby Assistance Scooting Scooting to Edge of Bed Standby Assistance PT-Transfer Assessment Sit to and From Stand Sit to and from Stand Standby Assistance Equipment Transfer Assistive Device Gait Belt Orthotic/Prosthetic Devices or Brace: No Transfer Ability Level of Assist Standby Assistance Gait Assessment Gait Gait Assistance Required: Standby Assistance,Contact Guard Assist Distance (Feet) 250 Assistive Devices Assistive Device Gait Belt Orthotic/Prosthetic Devices or Brace: No Gait Deviations General Gait Pattern Decreased Stride Length, Decreased Feet Clearance, Narrow Based Gait Factors Limiting Gait Function Factors Limiting Gait Function Decreased Activity Tolerance, Decreased Strength,Poor Balance Comments Gait Comments Pt ambulated ~50ft to therapy stairs using one hand on IV pole for stability SBA. Pt climbed three steps x5 with right rail SBA. Pt then ambulated w/o using IV pole CGA ~200ft. Pt required CGA w/ o IV pole during ambulation walking with slow marco, pt had no LOB. Stair Climbing Assessment Evaluation Level of Assist On Stairs Standby Assistance Devices Stair Climbing Assistive Devices Left Railing,Right Railing Technique/Endurance Stair Climbing Direction Ascend and Descend Stair Climbing Technique Step Over Step Number of Steps Climbed 3 Stair Climbing Set # Repetitions (reps) 5 Comments Stair Climbing Comments Pt eager to trial stairs and able to climb 15 steps SBA with rail M5 PT-IP Objective Assessments Start: 03/27/20 10:10 Freq: NEEDED Status: Active Protocol: Document 03/27/20 10:42 SAK (Rec: 03/27/20 10:55 SAK [id number]) Orientation Orientation/Cognition Level of Alertness Alert Orientation Name,Age,Place,Situation Safety Awareness Understands Safety Issues Memory Description No Deficits Noted Gross Range of Motion Upper Extremity ROM Assessment Within Functional Limits Lower Extremity ROM Assessment Within Functional Limits Strength Lower Extremity Strength Assessment Within Functional Limits Coordination Assessment Gross Coordination Gross Coordination WNL Sensation Assessment Sensation Gross Sensation WNL M7 PT-IP Assessment and Plan Start: 03/27/20 10:10 Freq: NEEDED Status: Active Protocol: Document 03/29/20 11:01 CLB (Rec: 03/29/20 11:31 CLB [id number]) PT Summary Assessment and Plan Potential Rehabilitation Potential Good Status of Condition at Evaluation Evolving Summary Impairments Strength,Gait,Activity Tolerance Progress Towards Goals Progressing Toward Goals Assessment Summary Pt improving with mobility with increased activity tolerance. Pt climbed 15 steps SBA and ambulated in cuellar ~ 250ft with CGA. Pt c/o mild dizziness and was fatigued at end of tx. Goals Bed Mobility Goal Independent Transfer Goal Independent Gait Goal Independent Gait Distance 200' Days to Meet Goals 2 Frequency of Treatment Frequency Of Treatment Once a Day Recommendations To Nursing Amount of Assist Needed 1 Person Assist Discharge Recommendations PT Discharge Recommendations Home with Assistance Transportation Needs at Discharge Private Vehicle
--- NOTE | 2020-03-29 15:30 | DIET.PN ---
Dietary Progress Note Assessment: 65y M admitted for recurrence of acute pancreatitis secondary to [employer] exposure c N/V referred to nutrition for same. Pt is well known to RD team per previous hospitalizations. Pt reported drinking quincy beer and one cocktail on HALLE which set off this attack which has been slower to resolve than the last several. Pt has been NPO for 3d and is almost ready to start trialing clear liquid diet. Pt reports fear at reintroducing food as trying to take pills c water yesterday flared his sx. Pt remembers drinking Ensure Clear (palmer) in a large glass of ice which worked during his last hospitalization. Pt takes Creon with all POs, does not tolerate animal protein or dairy protein. Pt has had good success with our smoothie plan for at home use including: Orgain pea protein powder c soymilk and banana. Pts weight is stable and up over the past year, but still 10% below his UBW. HT: 177.8cm WT: 73.5kg UBW: 82kg BMI: 23.3 Labs: lipase on admit 496 H Nutrition Diagnosis: nausea and vomiting r/t acute pancreatitis aeb pt reports HALLE etoh consumption triggering episode, lipase on admit 496 H, pt unable to tolerate PO anti-emetics at home. Interventions: 1. Discussed diet advancement options c pt who would like to trial Ensure Clear (palmer) in glass of ice for PO pills. Pts spouse encouraged to bring Orgain protein powder from home as dietary can accommodate his home product r/t specialty needs. Diet Order: NPO Monitoring/Evaluations: diet advancement, POs, sx
[2020-03-29] MEDS: DEXTROSE 5%-0.45NS W/KCL 20MEQ 1,000 ML 84 MEQ IV ×2 (16:13→21:32)
[2020-03-29] MEDS: LIPASE/PROTEASE/AMYLASE 5/17/24 CAP PO (16:18)
--- NOTE | 2020-03-29 16:52 | PC.NURSE ---
Pt drinking clear ensure at 1615. Reports that Dilaudid given at 1410 is working and pain is 3/10 in the abdomen. Pt is on RA and fluids D5-1/2NS-K20 infusing at 84mL/hr. Pt is alert and oriented x4.
--- NOTE | 2020-03-29 17:06 | PM.PN.1 ---
Subjective Subjective Date Patient Seen: 03/29/20 Interval history: Patient reports feeling significantly improved today. Pain has improved. Nausea is better. He is ready to attempt to clear liquid diet. He was able to sleep overnight which is the 1st time since yesterday. He does continue to have some left-sided pain but is improved remarkably. Exam Vital Signs (past 8 hours): - 03/29/20 10:00 03/29/20 13:00 03/29/20 15:30 Temperature 98.0 F 98.1 F 98.4 F Pulse Rate 73 75 76 Respiratory Rate 16 20 18 Blood Pressure 132/67 115/60 121/70 Pulse Oximetry 96 97 97 Oxygen Delivery Method Room Air Oxygen Flow Rate 0 Narrative Exam Narrative: Pleasant gentleman in no obvious distress Lungs: Clear to auscultation Cardiac exam: Regular rate and rhythm normal S1-S2 with a 2/6 systolic ejection Abdomen: Soft, mildly tender in the left upper and left mid quite no rebound tender no board-like rigidity no palpable mass Extremities: No edema Objective Labs Result Diagrams: 03/28/20 11:30 03/29/20 05:30 Labs: Laboratory Results - last 24 hr 03/29/20 05:30 Sodium 138 Potassium 3.7 Chloride 107 Carbon Dioxide 29 BUN 7 L Creatinine 0.71 Estimated GFR > 60.0 BUN/Creatinine Ratio 9.9 Glucose 109 Calcium 8.2 L Total Bilirubin 0.4 AST 20 ALT 12 Alkaline Phosphatase 45 Total Protein 5.5 L Albumin 3.2 L Globulin 2.3 Albumin/Globulin Ratio 1.4 PFSH Medical History Acute pancreatitis Campylobacter enteritis Exocrine pancreatic insufficiency GERD (gastroesophageal reflux disease) HTN (hypertension) Hyperlipidemia Insulin dependent diabetes mellitus with complications Narcolepsy Paroxysmal atrial fibrillation Paroxysmal atrial fibrillation Peripheral vascular disease Psoriasis Surgical History H/O exploratory laparotomy History of femoropopliteal bypass Hx of biopsy Family History Father Colon cancer Mother Narcolepsy Grandmother Narcolepsy Social History household members: friend(s) Smoking Status: Former smoker Assessment & Plan Assessment & Plan narrative: 5-year-old male admitted to the hospital with acute on chronic pancreatitis -initial lipase 495 -abdominal pelvic CT shows no pancreatic inflammation or pancreatic necrosis -patient is still symptomatic with nausea and abdominal pain -hypoglycemia likely reflecting the fact that the patient is not eating -will start clear liquid diet and advanced as tolerated -will discontinue IV hydrate 2. Hyperlipidemia -continue statin 3. Hypoglycemia -this should improve now that the patient is eating 4. Hypertension blood pressure well controlled -will continue oral blood pressure medications to include lisinopril and metoprolol 5. Chronic persistent atrial fibrillation -will resume Pradaxa, Plavix which he is on previous -continue metoprolol 6. Type 2 diabetes -will hold insulin at this time once blood sugars orally would consider resume his usual home medication Quality VTE Deep Vein Thrombosis/Pulmonary Embolism Present on Admission: No
--- NOTE | 2020-03-29 17:10 | P.EN_ITS ---
Event Note Date Patient Seen: 03/29/20 Event Note: Patient's blood pressure well controlled off of his normal medic ations. Will need to resume metoprolol to control his AFib. He may not require lisinopril as his blood pressure is well controlled at this time.
[2020-03-29] MEDS: FLUTICASONE 120 SPRAY/16 GM SPRAY.SUSP NASAL (21:29)
[2020-03-29] MEDS: DABIGATRAN 75 MG CAPSULE 150 MG PO (21:32)
[2020-03-29] MEDS: PRAVASTATIN 20 MG TABLET 80 MG PO (21:32)
[2020-03-29] MEDS: PROMETHAZINE 25 MG SUPP PR (21:40)
[2020-03-30] VITALS: BP 108/68; PULSE 68; RESP 16; TEMP 36.6; O2SAT 98
[2020-03-30 04:00] VITALS: BP 102/61; PULSE 61; RESP 18; TEMP 36.2; O2SAT 98
[2020-03-30] MEDS: ONDANSETRON 8 MG in SODIUM CHLORIDE 0.9% 50 ML 216 ML IV (05:17)
[2020-03-30] MEDS: HYDROMORPHONE 1 MG INJ IV (05:18)
[2020-03-30] MEDS: PROMETHAZINE 25 MG SUPP PR ×2 (07:51→16:46)
[2020-03-30 08:00] VITALS: BP 118/68; PULSE 70; RESP 18; TEMP 36.6; O2SAT 98
[2020-03-30] MEDS: DABIGATRAN 75 MG CAPSULE 150 MG PO ×2 (08:02→20:40)
[2020-03-30] MEDS: CREON 6000 UNIT 2 EACH PO ×4 (08:02→19:28)
[2020-03-30] MEDS: CLOPIDOGREL 75 MG TABLET PO (08:02)
[2020-03-30] MEDS: HYDROMORPHONE 4 MG TABLET PO ×4 (08:39→22:13)
--- NOTE | 2020-03-30 09:34 | PT.IPTN ---
Current Diagnoses Acute pancreatitis without necrosis or infection, unspecified (03/26/20) Physical Therapy Treatment Note M2 PT-IP Current Condition Start: 03/27/20 10:10 Freq: NEEDED Status: Active Protocol: Document 03/27/20 10:42 SAK (Rec: 03/27/20 10:55 SAK [id number]) Physical Therapy Current Condition Current Condition Evaluation Date 03/27/20 Treatment Diagnosis weakness Onset Date 03/26/19 M3 PT-IP Subjective Start: 03/27/20 10:10 Freq: NEEDED Status: Active Protocol: Document 03/30/20 09:10 KS (Rec: 03/30/20 10:15 KS [id number]) Subjective Physical Therapy Visit Type Type Treatment Note Visit Start Time 09:10 Visit Stop Time 09:34 Total Visit Minutes 24 Number of DOGMAN/WOMAN Visits 3 Physical Therapy Visit Comments Patient Comments Pt states he is feeling better today and experiencing less nausea. Patient Goals Go home Therapy Pain Assessment Pain When Pain Assessed At Rest Pain Present Pain Present Denied Pain M4 PT-IP Mobility and Gait Start: 03/27/20 10:10 Freq: NEEDED Status: Active Protocol: Document 03/30/20 09:10 KS (Rec: 03/30/20 10:15 KS [id number]) PT-Bed Mobility Assessment Supine to Sit Supine to Sit Independent Sit to Supine Sit to Supine Independent Scooting Scooting to Edge of Bed Independent PT-Transfer Assessment Sit to and From Stand Sit to and from Stand Independent Equipment Transfer Assistive Device Gait Belt Orthotic/Prosthetic Devices or Brace: No Transfer Ability Level of Assist Standby Assistance Comments Mobility Comments Pt sup<>sit, scooted to bed, and sit<>stand Independently upon arrival from therapy. Gait Assessment Gait Gait Assistance Required: Standby Assistance,Contact Guard Assist Distance (Feet) 600 Assistive Devices Assistive Device Gait Belt Orthotic/Prosthetic Devices or Brace: No Gait Deviations General Gait Pattern Decreased Stride Length, Decreased Feet Clearance, Narrow Based Gait Factors Limiting Gait Function Factors Limiting Gait Function Decreased Activity Tolerance, Decreased Strength,Poor Balance Comments Gait Comments Pt ambulated ~600 ft today w/o AD and SBA w/ 1x CGA d/t episode of slight unsteadiness . Pt ambulated slowly w/ decreased stride and foot clerance, but offered that he feel much stronger today. Stair Climbing Assessment Comments Stair Climbing Comments not assessed. M5 PT-IP Objective Assessments Start: 03/27/20 10:10 Freq: NEEDED Status: Active Protocol: Document 03/27/20 10:42 SAK (Rec: 03/27/20 10:55 SAK [id number]) Orientation Orientation/Cognition Level of Alertness Alert Orientation Name,Age,Place,Situation Safety Awareness Understands Safety Issues Memory Description No Deficits Noted Gross Range of Motion Upper Extremity ROM Assessment Within Functional Limits Lower Extremity ROM Assessment Within Functional Limits Strength Lower Extremity Strength Assessment Within Functional Limits Coordination Assessment Gross Coordination Gross Coordination WNL Sensation Assessment Sensation Gross Sensation WNL M6 PT-IP Treatment Start: 03/27/20 10:10 Freq: NEEDED Status: Active Protocol: Document 03/30/20 10:15 KS (Rec: 03/30/20 10:16 KS [id number]) Physical Therapy Treatment Other Treatments Other Treatment Performed Pt education on safety M7 PT-IP Assessment and Plan Start: 03/27/20 10:10 Freq: NEEDED Status: Active Protocol: Document 03/30/20 09:10 KS (Rec: 03/30/20 10:15 KS [id number]) PT Summary Assessment and Plan Potential Rehabilitation Potential Good Status of Condition at Evaluation Evolving Summary Impairments Strength,Gait,Activity Tolerance Progress Towards Goals Progressing Toward Goals Assessment Summary Pt is independent for bed mobility, SBA for transfers and SBA to CGA for ambulation w/o AD. Pt ambulated ~600 ft ambulation w/o AD SBA w/ CGA x1 d/t unsteadiness. Pt reported fatigue following ambulation, but was able to get back into bed independently. Pt offered that he is not at his baseline, however is improving and feeling stronger every day. Pt states his girlfriend will stay w/ him and provide assistance as needed. Goals Bed Mobility Goal Independent Transfer Goal Independent Gait Goal Independent Gait Distance 200' Days to Meet Goals 2 Frequency of Treatment Frequency Of Treatment Once a Day Recommendations To Nursing Amount of Assist Needed 1 Person Assist Discharge Recommendations PT Discharge Recommendations Home with Assistance Transportation Needs at Discharge Private Vehicle
[2020-03-30 12:00] VITALS: BP 114/74; PULSE 73; RESP 18; TEMP 36.4; O2SAT 97
[2020-03-30] MEDS: ONDANSETRON 4 MG/2 ML INJ IV (13:38)
[2020-03-30 15:55] VITALS: BP 130/72; PULSE 73; RESP 17; TEMP 37; O2SAT 96
--- NOTE | 2020-03-30 17:03 | PC.NURSE ---
Addendum entered by Carli Walter R.N. 03/30/20 21:58: Pt had relatively uneventful evening. Up ad pasquale in room. HL intact/patent. Condition remains essentially unchanged. Call light w/in reach, pt calls appropriately for needs. Continue w/plan of care. Original Note: Pt up ad pasquale in room. States discomfort is 4/10, will give pain med when able. Lungs clear, SpO2 98% RA HL left hand intact/patent. Pt states slight nausea, promethezizne DE given. Call light w/in reach, pt calls appropriately for needs.
--- NOTE | 2020-03-30 17:52 | P.PN_ITS ---
Subjective Subjective Date Patient Seen: 03/30/20 Time Patient Seen: 08:45 Interval history: Mr. Diehl is a 65-year-old gentleman admitted With poorly controlled pain in the setting of chronic pancreatitis. His lipase was only mildly Elevated at 695, and imaging did not show evidence an acute component of his pancreatitis. He has, however, required significant doses of IV pain medications in order to control his pain and sometimes in chronic pancreatitis there is not a significant elevation in lipase during acute episodes. He is improving slowly, he was started on clears but continues to have abdominal pain today after drinking. He denies any fevers, chills. He does feel nauseous at times but has had no vomiting. He denies any chest pain or shortness of breath, lower extremity edema. Have switched to oral Dilaudid today in hopes to provide longer-acting pain relief so that he may be able to tolerate additional oral intake. Exam Vital Signs (past 8 hours): - 03/30/20 12:00 03/30/20 15:55 Temperature 97.6 F 98.6 F Pulse Rate 73 73 Respiratory Rate 18 17 Blood Pressure 114/74 130/72 Pulse Oximetry 97 96 Oxygen Delivery Method Room Air Oxygen Flow Rate 0 Narrative Exam Narrative: GENERAL APPEARANCE: Well developed, well nourished, in no acute distress. SKIN: Inspection of the skin reveals no rashes, ulcerations or petechiae. HEENT: Normocephalic atraumatic, extraocular muscles are intact, oropharynx is clear and mucous membranes are moist, neck is supple without adenopathy NECK: Supple and symmetric. There was no thyroid enlargement, and no tenderness, or masses were felt. CHEST: Normal AP diameter and normal contour without any kyphoscoliosis. LUNGS: Auscultation of the lungs revealed no wheezes, rhonchi, or rales. CARDIOVASCULAR: There was a regular rate and rhythm without any murmurs, gallops, rubs. Peripheral pulses were 2+ and symmetric. ABDOMEN: Soft, nondistended, mildly tender in the epigastrium without guarding or rebound. MUSCULOSKELETAL: There was no tenderness or effusions noted. Muscle strength and tone were normal. EXTREMITIES: No cyanosis, clubbing or edema. NEUROLOGIC: Alert and oriented x 3. Normal affect. Gait was normal. Strength is +5/5 in the Upper Extremities and Lower Extremities Bilaterally. Sensation to touch was normal. Objective Labs Result Diagrams: 03/28/20 11:30 03/29/20 05:30 [facility] Medical History Acute pancreatitis Campylobacter enteritis Exocrine pancreatic insufficiency GERD (gastroesophageal reflux disease) HTN (hypertension) Hyperlipidemia Insulin dependent diabetes mellitus with complications Narcolepsy Paroxysmal atrial fibrillation Paroxysmal atrial fibrillation Peripheral vascular disease Psoriasis Surgical History H/O exploratory laparotomy History of femoropopliteal bypass Hx of biopsy Family History Father Colon cancer Mother Narcolepsy Grandmother Narcolepsy Social History household members: friend(s) Smoking Status: Former smoker Assessment & Plan Assessment & Plan narrative: 65-year-old male admitted to the hospital with acute on chronic pancreatitis. 1. acute on chronic pancreatitis, present on admission. -initial lipase only 495, although sometimes this can be lower than the typical cutoff during acute exacerbation of chronic disease. -abdominal pelvic CT shows no pancreatic inflammation or pancreatic necrosis -patient is still symptomatic with nausea and abdominal pain, improving with initial conservative management. -continue CLD today, advance as tolerated. Have added oral dilaudid today in hopes of achieving more adequate pain control now that he is somewhat tolerating clears. 2. Hyperlipidemia -continue statin 3. Hypoglycemia, resolved. 4. Hypertension blood pressure well controlled -will continue oral blood pressure medications to include lisinopril and metoprolol 5. Chronic persistent atrial fibrillation -will resume Pradaxa, Plavix which he is on previous -continue metoprolol 6. Type 2 diabetes -will hold insulin at this time once blood sugars orally would consider resume his usual home medication upon discharge. Quality VTE Deep Vein Thrombosis/Pulmonary Embolism Present on Admission: No
[2020-03-30 19:45] VITALS: BP 109/66; PULSE 73; RESP 17; TEMP 36.9; O2SAT 95
[2020-03-30] MEDS: PRAVASTATIN 20 MG TABLET 80 MG PO (20:40)
[2020-03-30] MEDS: diphenhydrAMINE 50 MG/ML VIAL 25 MG IV (22:15)
[2020-03-31] VITALS: BP 100/54; PULSE 76; RESP 16; TEMP 36.9; O2SAT 95
[2020-03-31] MEDS: HYDROMORPHONE 4 MG TABLET PO (02:38)
[2020-03-31 05:00] VITALS: BP 106/60; PULSE 74; RESP 16; TEMP 36.9; O2SAT 96
[2020-03-31] MEDS: CREON 6000 UNIT 2 EACH PO ×2 (06:40→08:51)
[2020-03-31] MEDS: ONDANSETRON 4 MG ODT SL (06:51)
[2020-03-31] MEDS: diphenhydrAMINE 25 MG TABLET PO (07:01)
[2020-03-31 08:05] VITALS: BP 111/59; PULSE 80; RESP 16; TEMP 36.4; O2SAT 98
[2020-03-31] MEDS: CLOPIDOGREL 75 MG TABLET PO (08:52)
[2020-03-31] MEDS: DABIGATRAN 75 MG CAPSULE 150 MG PO (08:52)
[2020-03-31] MEDS: LIDOCAINE PATCH 1 EACH ADH..PATCH TOP (08:52)
--- NOTE | 2020-03-31 09:10 | PM.DS.1 ---
History of Present Illness History of Present Illness Date Patient Seen: 03/31/20 Time Patient Seen: 09:10 Chief complaint: Vomitting, Pancreas Flair Up Narrative: As per JULIET Hill: Patient is a 65-year-old male, former smoker, who presented to ED with significant complain of chills,, lightheadedness, nausea and vomiting, more than 20 episodes of watery diarrhea, left upper quadrant pain. Pt has a past medical history significant for AFib, chronic pancreatitis from exposure to orange agent, endocrine pancreatic insufficiency, and two benign tumor removal, DM Type II, diabetes related kidney disease, sepsis and multiple visits to ED for abdominal etiology. Patient denies blood in his stools or in emesis. Patient denies steatorrhea at this time. Patient had tried Zofran multiple times but nausea and vomiting has not improved. Patient takes 4 mg Zofran 4 times a day with meals and 8 mg as needed for breakthrough nausea up to 24 mg per 24 period. Patient wanted to use for rectal promethazine but given patient has so frequent diarrhea was unable to use this. Patient also could use Compazine but with Ativan to minimize akathisia. Patient also has allergies to iodine and usually requires Benadryl and Solu-Medrol medication. Patient denies chest pain, dyspnea, fever. Patient had a cocktail drink and quincy beer last night for celebrating Cherise which is different from his routine. Patient reports your visit for pancreatitis about 6 months ago. Patient's vitals in ER 96.7 BP 89/54, HR 108, R 20, SaO2 92%, WBC 17.2, BNP 156, lipase 496, glucose 148, CT of abdomen and pelvis demonstrated no imaging that would explain patient's presentation, and was negative for necrosis, normal pancreas, portable chest x-ray was within normal limits. Once patient was admitted he verbalized that his chills and body aches had improved he has continued abdominal pain approximately a 3/10 but tolerable he states the whirleys have stopped the room spinning, he last vomited and had a bowel movement in the ER, denies any difficulty with urination, patient denies chest pain shortness of breath. Patient denies any recent illness injury or trauma to provoke most recent attack. Patient will be admitted for acute pancreatitis. Discharge Providers Provider Date of admission: 03/26/20 19:35 Discharge Date: 03/31/20 Primary care physician: LEDY Razo Consults: 03/26/20 20:46 Consult to Dietitian, Adult Routine Comment: Reason For Exam: Acute pancreatitis Consult to Discharge Planning Routine Comment: 03/26/20 20:47 Consult to Occupational Therapy Evaluate & Treat Comment: Physician Instructions: Evaluate and treat Consult to Physical Therapy Evaluate & Treat Comment: Physician Instructions: Evaluate and Treat Discharge provider: Brian Roy DO Summary Hospital Course Discharge Diagnosis: Please see hospital course by problem list noted below: Hospital Course: 65-year-old male admitted to the hospital with acute on chronic pancreatitis. He improved with bowel rest and initially required IV pain control which was transition to oral pain medications. 1. acute on chronic pancreatitis, present on admission. -initial lipase only 495, although sometimes this can be lower than the typical cutoff during acute exacerbation of chronic disease. -abdominal pelvic CT shows no pancreatic inflammation or pancreatic necrosis -patient remainedl symptomatic with nausea and abdominal pain, improving with initial conservative management. -Initially managed with bowel rest. His diet was slowly advanced and once his pain improved and he transition to oral pain medication he was discharged home. -continue home pancreatic enzymes. 2. Hyperlipidemia -continue statin 3. Hypoglycemia, resolved. 4. Hypertension blood pressure well controlled -no changes to his blood pressure medications recommended 5. Chronic persistent atrial fibrillation -no changes to his chronic medications are recommended 6. Type 2 diabetes -held insulin during his stay given hypoglycemia secondary to his acute symptoms on admission. He is safe to resume his home medications as he is adequately tolerating oral intake upon discharge. Exam Vital Signs (past 8 hours): - 03/31/20 05:00 03/31/20 08:05 Temperature 98.4 F 97.6 F Pulse Rate 74 80 Respiratory Rate 16 16 Blood Pressure 106/60 111/59 L Pulse Oximetry 96 98 Oxygen Delivery Method Room Air Oxygen Flow Rate 0 Narrative Exam Narrative: GENERAL APPEARANCE: Well developed, well nourished, in no acute distress. SKIN: Inspection of the skin reveals no rashes, ulcerations or petechiae. HEENT: Normocephalic atraumatic, extraocular muscles are intact, oropharynx is clear and mucous membranes are moist, neck is supple without adenopathy NECK: Supple and symmetric. There was no thyroid enlargement, and no tenderness, or masses were felt. CHEST: Normal AP diameter and normal contour without any kyphoscoliosis. LUNGS: Auscultation of the lungs revealed no wheezes, rhonchi, or rales. CARDIOVASCULAR: There was a regular rate and rhythm without any murmurs, gallops, rubs. Peripheral pulses were 2+ and symmetric. ABDOMEN: Soft, nondistended MUSCULOSKELETAL: There was no tenderness or effusions noted. Muscle strength and tone were normal. EXTREMITIES: No cyanosis, clubbing or edema. NEUROLOGIC: Alert and oriented x 3. Normal affect. Gait was normal. Strength is +5/5 in the Upper Extremities and Lower Extremities Bilaterally. Sensation to touch was normal. Objective Labs Result Diagrams: 03/28/20 11:30 03/29/20 05:30 [facility] Medical History Acute pancreatitis Campylobacter enteritis Exocrine pancreatic insufficiency GERD (gastroesophageal reflux disease) HTN (hypertension) Hyperlipidemia Insulin dependent diabetes mellitus with complications Narcolepsy Paroxysmal atrial fibrillation Paroxysmal atrial fibrillation Peripheral vascular disease Psoriasis Surgical History H/O exploratory laparotomy History of femoropopliteal bypass Hx of biopsy Family History Father Colon cancer Mother Narcolepsy Grandmother Narcolepsy Social History household members: friend(s) Smoking Status: Former smoker Discharge Plan Discharge Plan Patient Disposition: Home Provider Discharge Comment: You were admitted to the hospital with acute on chronic pancreatitis. You improved with bowel rest, your chronic pain medications likely need to be adjusted. You have a follow up scheduled in 3 days, consider changing to diluadid or changing oxycodone. Discharge orders & Medications Prescriptions: New hydromorphone [Dilaudid] 2 mg tablet 2 - 4 mg PO Q4-6H PRN (Reason: pain) 7 Days Qty: 35 RF: 0 Continued clopidogrel 75 mg Tablet 75 mg PO DAILY Qty: 0 RF: 0 diclofenac sodium [Voltaren] 1 % gel 1 crys Topical QID PRN (Reason: osteoarthritis) Qty: 0 RF: 0 insulin lispro [Humalog U-100 Insulin] 100 unit/mL solution See Rx Instructions SUBCUT USEASDIRECTD RF: 0 ondansetron 4 mg tablet,disintegrating 4 mg PO Q6H PRN (Reason: Nausea) RF: 0 gentamicin 0.3 % drops 1 drp EYE-BOTH TID PRN (Reason: Blepharitis) Qty: 5 RF: 12 Creon 24,000-76,000 -120,000 unit capsule,delayed release(DR/EC) 1 cap PO QID Qty: 120 RF: 12 ondansetron 8 mg tablet,disintegrating 8 mg PO Q8H PRN (Reason: nausea and vomiting) Qty: 30 RF: 0 cholecalciferol (vitamin D3) [Vitamin D3] 1,000 unit Capsule 3,000 unit PO DAILY RF: 0 acetaminophen 325 MG tablet 325 mg PO Q4HP PRN (Reason: Pain, Mild) RF: 0 dabigatran etexilate 150 mg Capsule 150 mg PO BID RF: 0 pravastatin 80 mg Tablet 80 mg PO BEDTIME Qty: 0 RF: 0 fluticasone propionate 50 mcg/actuation [place],Suspension 50 mcg intranasal DAILY Qty: 0 RF: 0 methylphenidate HCl 20 mg tablet 20 mg PO TID RF: 0 lisinopril 2.5 mg Tablet 2.5 mg PO DAILY RF: 0 metoprolol tartrate 25 mg Tablet 12.5 mg PO BID RF: 0 Discontinued oxycodone 5 mg Tablet 5 mg PO Q4HR PRN (Reason: Pain, Moderate (4-6)) Qty: 20 RF: 0 Follow up/Referrals: Chava Goldman ARNP [Primary Care Provider] - Diet/Activity/Treatments Diet: Diet as Tolerated Activity: As tolerated Visit Report/Discharge Packet Instructions: Pancreatitis (Alternative Therapy), Acute Pancreatitis, Chronic Pancreatitis, Hydromorphone Discharge Data Primary Care Provider: Chava Goldman Quality VTE Deep Vein Thrombosis/Pulmonary Embolism Present on Admission: No
--- NOTE | 2020-03-31 11:09 | PC.NURSE ---
Pt is dressed and ready for discharge home with Spouse. Personal meds returned to Pt from pharmacy. Went over d/c instructions with Pt and Spouse - discussed d/c meds, time of last dose, reviewed stroke education, encouraged Pt to drink plenty of fluids to prevent constipation or dehydration, and follow up. Pt out via w/c by [employer] to POV with spouse and all belongings.
--- NOTE | 2020-03-31 12:39 | PT.IPTN ---
Current Diagnoses Acute pancreatitis without necrosis or infection, unspecified (03/26/20) Physical Therapy Treatment Note M2 PT-IP Current Condition Start: 03/27/20 10:10 Freq: NEEDED Status: Discharge Protocol: Document 03/27/20 10:42 SAK (Rec: 03/27/20 10:55 SAK [id number]) Physical Therapy Current Condition Current Condition Evaluation Date 03/27/20 Treatment Diagnosis weakness Onset Date 03/26/19 M3 PT-IP Subjective Start: 03/27/20 10:10 Freq: NEEDED Status: Discharge Protocol: Document 03/31/20 12:34 (Rec: 03/31/20 12:39 [id number]) Subjective Physical Therapy Visit Type Type Treatment Note Visit Start Time 09:49 Visit Stop Time 10:02 Total Visit Minutes 13 Number of NUTRITION ASSISTANT Visits 0 Physical Therapy Visit Comments Patient Comments Im ready to go home and i feel pretty good now Patient Goals Go home Therapy Pain Assessment Pain Present Pain Present Denied Pain M4 PT-IP Mobility and Gait Start: 03/27/20 10:10 Freq: NEEDED Status: Discharge Protocol: Document 03/31/20 12:34 (Rec: 03/31/20 12:39 [id number]) PT-Transfer Assessment Sit to and From Stand Sit to and from Stand Independent Equipment Transfer Assistive Device Gait Belt Orthotic/Prosthetic Devices or Brace: No Transfer Ability Level of Assist Independent Comments Mobility Comments Pt was in chair upon PT arrival. Reports he is feeling a lot better but still slightly weaker than normal. He stood up from chair with arm push off then proceed to amb with PT. Pt completed 1 lap of AC unit and stair climbing 12stepsx 4 with 2\ rail and step over pattern. Pt overall appeared very safe and no LOB. He then returned to his room and girlfriend presented there. Gait Assessment Gait Gait Assistance Required: Standby Assistance,Contact Guard Assist Distance (Feet) 600 Assistive Devices Assistive Device Gait Belt Orthotic/Prosthetic Devices or Brace: No Gait Deviations General Gait Pattern Decreased Stride Length, Decreased Feet Clearance, Narrow Based Gait Factors Limiting Gait Function Factors Limiting Gait Function Decreased Activity Tolerance, Decreased Strength,Poor Balance Comments Gait Comments no deficits noted. Stair Climbing Assessment Evaluation Level of Assist On Stairs Standby Assistance Devices Stair Climbing Assistive Devices Left Railing,Right Railing Technique/Endurance Stair Climbing Direction Ascend and Descend Stair Climbing Technique Step Over Step Number of Steps Climbed 12 Stair Climbing Set # Repetitions (reps) 4 Comments Stair Climbing Comments no deficits noted M5 PT-IP Objective Assessments Start: 03/27/20 10:10 Freq: NEEDED Status: Discharge Protocol: Document 03/27/20 10:42 SAK (Rec: 03/27/20 10:55 SAK [id number]) Orientation Orientation/Cognition Level of Alertness Alert Orientation Name,Age,Place,Situation Safety Awareness Understands Safety Issues Memory Description No Deficits Noted Gross Range of Motion Upper Extremity ROM Assessment Within Functional Limits Lower Extremity ROM Assessment Within Functional Limits Strength Lower Extremity Strength Assessment Within Functional Limits Coordination Assessment Gross Coordination Gross Coordination WNL Sensation Assessment Sensation Gross Sensation WNL M6 PT-IP Treatment Start: 03/27/20 10:10 Freq: NEEDED Status: Discharge Protocol: Document 03/30/20 10:15 KS (Rec: 03/30/20 10:16 KS [id number]) Physical Therapy Treatment Other Treatments Other Treatment Performed Pt education on safety M7 PT-IP Assessment and Plan Start: 03/27/20 10:10 Freq: NEEDED Status: Discharge Protocol: Document 03/31/20 12:34 HH (Rec: 03/31/20 12:39 HH [id number]) PT Summary Assessment and Plan Potential Rehabilitation Potential Good Status of Condition at Evaluation Evolving Summary Impairments Strength,Gait,Activity Tolerance Progress Towards Goals Safe For Discharge Assessment Summary Pt is independent for bed mobility, gait and transfer ; SBA for stair climbing. He is close to baseline at this point and he feels safe to be d/c home as well. DC from PT. Frequency of Treatment Frequency Of Treatment Discharge Recommendations To Nursing Amount of Assist Needed Independent Discharge Recommendations PT Discharge Recommendations Home with Assistance Transportation Needs at Discharge Private Vehicle
== END 2020-03-31 11:21 | disposition home or self-care (01) | DRG 439 ==
LOC: ED 16:29 → ICU 19:48 → AC 03-29 06:06
PROVIDERS: Internal Medicine; Nurse Practitioner Family; Admitting Provider Nurse Practitioner Family; Emergency Provider Emergency Medicine; Family Provider Emergency Medicine Emergency Medical Services; PCP Nurse Practitioner Family; Referring Provider Emergency Medicine; Visit Provider Nurse Practitioner Family
DX: K85.80 Other acute pancreatitis without necrosis or infection (principal); I48.19 Other persistent atrial fibrillation; K86.1 Other chronic pancreatitis; K86.81 Exocrine pancreatic insufficiency; E08.649 Diabetes mellitus due to underlying condition with hypoglycemia without coma; E83.42 Hypomagnesemia; E83.51 Hypocalcemia; Z77.098 Contact with and (suspected) exposure to other hazardous, chiefly nonmedicinal, chemicals; K21.9 Gastro-esophageal reflux disease without esophagitis; I10 Essential (primary) hypertension; E78.5 Hyperlipidemia, unspecified; Z87.891 Personal history of nicotine dependence; Z20.822 Contact with and (suspected) exposure to COVID-19; Z79.4 Long term (current) use of insulin
CPT/HCPCS: 36415; 71045; 74177; 80048; 80053; 82550; 82553; 82962; 83605; 83615; 83690; 83735; 83880; 84484; 85025; 85610; 85730; 87635; 87797; 93005; 94762; 96361; 96374; 96375; 97116; 97161; 97165; 97530; 97535; 99284; A9270; J0610; J0780; J1170; J1200; J1650; J2060; J2405; J2930; J3010; J3475

== ENCOUNTER 2020-09-10 23:17 | Emergency (ER) | payer OTHER, SELFPAY ==
[2020-03-26 20:55] VITALS: BMI 24.0
[2020-09-10 23:24] VITALS: PULSE 80; O2SAT 98
[2020-09-10 23:25] VITALS: BP 104/57; PULSE 108; RESP 16; TEMP 36.6; O2SAT 97
--- NOTE | 2020-09-10 23:28 | PC.NURSE ---
Pt arrived via EMS. AAOx3. Appears ashen nascimento with 200ml in emesis bag, no blood noted. shivering. normothermic. c/o intense abd pain LUQ with 3 days of vomiting and 2 hrs of diarrhea. tender to palp. h/o pancreatitis and states he felt this coming on Denies ETOH. HR 75. Bear hugger placed for comfort. IV access obtained 22G L hand, unable to obtain labs at this time. warmed fluids infusing and will reassess for lab draw. Resting on stretcher NAD.
[2020-09-10 23:30] VITALS: BP 104/57; PULSE 73; RESP 20; O2SAT 96
[2020-09-10] MEDS: SODIUM CHLORIDE 0.9% 1,000 ML 125 ML IV (23:47)
[2020-09-10] MEDS: PROCHLORPERAZINE 10 MG/2 ML VIAL IV (23:47)
[2020-09-10] MEDS: LORazepam 2 MG/ML INJ 0.5 MG IV (23:47)
--- NOTE | 2020-09-10 23:52 | ED_ITS ---
HPI - Abdominal Pain General Chief Complaint: Abdominal Pain Stated Complaint: pancreatitis Time Seen by Provider: 09/10/20 23:19 Source: patient and EMS Mode of arrival: EMS Limitations: no limitations History of Present Illness HPI narrative: 65-year-old male former smoker with extensive history of pancreatitis presents by EMS with a chief complaint of upper abdominal pain nausea, vomiting and mucousy stool over the course of the day. He denies any fever chills. He denies any change in medications or dietary indiscretions. He was evaluated by EMS and given fentanyl EN route. Prior to coming he took Zofra n and promethazine of his own at home. MD complaint: abdominal pain Onset (ago): minute(s) Pain Consistency: constant Location: diffuse Severity: moderate Quality: cramping Radiation: none Relieving factors: nothing Exacerbating factors: nothing Associated symptoms: nausea, vomiting and diarrhea Related Data Home Medications Medication Instructions Recorded Confirmed clopidogrel 75 mg PO DAILY #0 04/15/08 06/17/20 diclofenac sodium [Voltaren] 1 crys TOPICAL QID PRN #0 03/14/17 06/17/20 acetaminophen 325 mg PO Q4HP PRN 09/25/17 06/17/20 cholecalciferol (vitamin D3) 3,000 unit PO DAILY 09/25/17 06/17/20 [Vitamin D3] dabigatran etexilate 150 mg PO BID 03/24/18 06/17/20 fluticasone propionate 50 mcg INTRANASAL DAILY #0 02/13/19 06/17/20 pravastatin 80 mg PO BEDTIME #0 02/13/19 06/17/20 lisinopril 2.5 mg PO DAILY 04/28/19 06/17/20 metoprolol tartrate 12.5 mg PO BID 04/28/19 06/17/20 insulin lispro 100 unit/mL See Rx Instructions SUBCUT 03/15/20 06/17/20 subcutaneous solution USEASDIRECTD ondansetron 4 mg disintegrating 4 mg PO Q6H PRN 03/15/20 06/17/20 tablet promethazine 25 mg rectal 25 mg NV Q6H PRN 06/17/20 06/17/20 suppository Previous Rx's Medication Instructions Recorded gentamicin 0.3 % eye drops 1 drp EYE-BOTH TID PRN #5 ml 03/15/20 [id number] 1 cap PO QID #120 cap 03/15/20 24,000-76,000-120,000 unit capsule,delayed rel ondansetron 8 mg disintegrating See Rx Instructions .ROUTE 06/09/20 tablet .COMPLEX #90 tab methylphenidate HCl 20 mg tablet See Rx Instructions .ROUTE 08/11/20 .COMPLEX #90 ea Allergies Allergy/AdvReac Type Severity Reaction Status Date / Time Iodine and Iodide Containing Allergy Severe Anaphylaxis Verified 03/26/20 15:09 Produc [IODINE AND IODIDE CONTAINING PRODUC] Sulfa (Sulfonamide Allergy Severe Anaphylaxis Verified 03/26/20 15:09 Antibiotics) [SULFA (SULFONAMIDE ANTIBIOTICS)] Review of Systems Constitutional Constitutional: Denies chills, Denies fatigue, Denies fever(s), Denies frequent falls, Denies lethargy and Denies weakness Eyes Eyes: Denies change in vision, Denies eye discharge, Denies irritation and Denies loss of vision ENT Ears, Nose, Mouth, and Throat: Denies change in voice, Denies dizziness, Denies neck pain, Denies sore throat and Denies throat swelling Cardiovascular Cardiovascular: Denies chest pain, Denies irregular heart rhythm, Denies lightheadedness, Denies palpitations, Denies dyspnea, Denies dyspnea on exertion and Denies orthopnea Respiratory Respiratory: Denies cough, Denies dyspnea, Denies dyspnea on exertion and Denies wheezing Gastrointestinal Gastrointestinal: Reports abdominal pain, Denies change in bowel habits, Reports diarrhea, Reports nausea and Reports vomiting Musculoskeletal Musculoskeletal: Denies neck pain and Denies numbness Integumentary/Breasts Skin/Breast: Denies pruritus, Denies erythema, Denies rash and Denies wounds Neurologic Neurologic: Denies behavioral changes, Denies confusion, Denies dizziness, Denies frequent falls, Denies loss of vision, Denies numbness and Denies weakness Psychiatric Psychiatric: Denies anxiety, Denies behavioral changes, Denies confusion, Denies depression, Denies homicidal ideation and Denies suicidal ideation Endocrine Endocrine: Denies fatigue, Denies flushing and Denies palpitations Hematologic/Lymphatic Hematologic/Lymphatic: Denies easy bruising Allergic/Immunologic Allergic/Immunologic: Denies urticaria, Denies throat swelling and Denies wheezing Patient History Medical History Acute dehydration Campylobacter enteritis Enteritis, enteropathogenic E. coli Exocrine pancreatic insufficiency Gastroenteritis GERD (gastroesophageal reflux disease) HTN (hypertension) Hyperlipidemia Insulin dependent diabetes mellitus with complications Narcolepsy Nausea vomiting and diarrhea Pancreatitis Paroxysmal atrial fibrillation Paroxysmal atrial fibrillation Peripheral vascular disease Psoriasis Surgical History H/O exploratory laparotomy History of femoropopliteal bypass Hx of biopsy Family History Father Colon cancer Mother Narcolepsy Grandmother Narcolepsy Social History household members: friend(s) Smoking Status: Former smoker Smoking Status: Former smoker alcohol intake frequency: 0-2 drinks per day Substance Use Type: marijuana Exam Narrative Exam Narrative: GENERAL: [65] year old patient appears stated age. Well- developed patient, in mild distress. Ill-appearing, holding an emesis bag HEAD: Atraumatic. Normocephalic. EYES: Pupils equal round and reactive. Extraocular motions intact. No scleral icterus. No injection or drainage. ENT: Nose without bleeding, purulent drainage. Throat without erythema, tonsillar hypertrophy or exudate. Airway patent. NECK: Trachea midline. Non tender CARDIOVASCULAR: Regular rate and rhythm without murmurs, gallops, or rubs. RESPIRATORY: Clear to auscultation. Breath sounds equal bilaterally. No wheezes, rales, or rhonchi. GASTROINTESTINAL: Abdomen soft, tender in the epigastrium, nondistended. EXTREMITIES: No edema or joint tenderness. BACK: Nontender without deformity or crepitance. No flank tenderness. NEURO: AOx3. SKIN: No rash or erythema of visible areas Initial Vital Signs Initial Vital Signs: Vital Signs Pulse Rate 80 09/10/20 23:24 Pulse Oximetry 98 09/10/20 23:24 Course Orders Ordered: ED Orders 09/10/20 23:17 Complete Blood Count AUTO DIFF Stat Comprehensive Metabolic Panel Stat 09/11/20 00:10 Lipase Stat Sodium Chloride (Normal Saline 0.9%) 1,000 mls @ 125 mls/hr IV CONT KATHY Last Infusion: 09/11/20 01:15 Dose: 0 mls/hr Documented by: Infusion: 09/11/20 00:20 Dose: 999 mls/hr Documented by: Admin: 09/10/20 23:47 Dose: 125 mls/hr Documented by: KHARI Discontinued Medications Lorazepam (Lorazepam 2 Mg/Ml Inj) 0.5 mg IV NOW ONE Stop: 09/10/20 23:26 Last Admin: 09/10/20 23:47 Dose: 0.5 mg Documented by: KHARI Prochlorperazine (Prochlorperazine 10 Mg/2 Ml Vial) 10 mg IV NOW ONE Stop: 09/10/20 23:26 Last Admin: 09/10/20 23:47 Dose: 10 mg Documented by: KHARI Reevaluation(s) Reevaluation #1: Patient feeling much better after above-stated therapies. He is able to ambulate through the department without difficulty in a steady gait. He has appropriate prescriptions at home. He is requesting discharge Time: 05:29 Vital Signs Vital signs: Vital Signs - 8 hr 09/10/20 23:24 09/10/20 23:25 09/10/20 23:30 Temperature 97.8 F Pulse Rate 80 108 H 73 Respiratory Rate 16 20 Blood Pressure 104/57 L 104/57 L Pulse Oximetry 98 97 96 09/11/20 00:00 09/11/20 00:14 09/11/20 00:30 Temperature Pulse Rate 79 82 81 Respiratory Rate 22 Blood Pressure 98/54 L 95/54 L 90/54 L Pulse Oximetry 93 95 96 09/11/20 00:45 09/11/20 01:00 09/11/20 01:15 Temperature Pulse Rate 84 85 87 Respiratory Rate 23 23 Blood Pressure 90/53 L 92/51 L 96/54 L Pulse Oximetry 96 97 97 09/11/20 01:30 09/11/20 01:45 09/11/20 02:00 Temperature Pulse Rate 90 93 H 93 H Respiratory Rate 24 25 H 24 Blood Pressure 89/54 L 96/55 L 93/55 L Pulse Oximetry 97 97 96 09/11/20 02:15 09/11/20 02:30 09/11/20 02:45 Temperature Pulse Rate 96 H 98 H 101 H Respiratory Rate 24 26 H 24 Blood Pressure 93/52 L 95/51 L 92/54 L Pulse Oximetry 96 97 96 MDM - Abdominal Pain Lab Data Result diagrams: 09/11/20 00:10 09/11/20 00:10 Labs: Lab Results 09/11/20 09/11/20 09/11/20 Range/Units 00:10 00:10 00:10 WBC 13.1 H (4.5-11.0) X10^3/uL RBC 5.16 (4.5-5.9) X10^6/uL Hgb 15.2 (13.5-17.5) g/dL Hct 46.4 (41-53) % MCV 90.0 (80-100) fL MCH 29.4 (26-34) PG MCHC 32.6 (30-36) % RDW 13.7 (11.6-14.8) % Plt Count 196 (150-400) X10^3/uL Neut % (Auto) Not Reportable Lymph % (Auto) Not Reportable [place] % (Auto) Not Reportable Eos % (Auto) Not Reportable Baso % (Auto) Not Reportable Lymph # (Auto) Not Reportable [place] # (Auto) Not Reportable Baso # (Auto) Not Reportable Total Counted 100 Seg Neutrophils % 64.0 (38-70) % Band Neutrophils % 25.0 H (3-7) % Monocytes % (Manual) 10.0 (2-11) % Metamyelocytes % 1.0 H (-0) % Neutrophils # (Manual) 03075 H (8255-6419) /uL RBC Morphology Normal morphology Sodium 142 (137-145) mmol/L Potassium 3.6 (3.4-5.1) mmol/L Chloride 104 (98-107) mmol/L Carbon Dioxide 22 (22-32) mmol/L BUN 15 (9-20) mg/dL Creatinine 0.96 (0.66-1.25) mg/dL Estimated GFR > 60.0 (>60) mL/min BUN/Creatinine Ratio 15.6 (6-22) Glucose 69 L (80-110) mg/dL Calcium 9.8 (8.4-10.2) mg/dL Total Bilirubin 0.7 (0.2-1.3) mg/dL AST 33 (17-59) IU/L ALT 23 (<50) IU/L Alkaline Phosphatase 72 (38-126) U/L Total Protein 7.5 (6.3-8.2) g/dL Albumin 4.8 (3.5-5.0) g/dL Globulin 2.7 (1.7-4.1) g/dL Albumin/Globulin Ratio 1.8 (1.0-2.8) Lipase 38 Cancelled (23-300) U/L Point of care testing: Point of Care Testing Glucose POC 142 MDM Narrative Medical decision making narrative: Multiple etiologies for patient's symptoms considered including: [ Pancreatitis versus gastroenteritis versus cyclic vomiting versus abdominal migraine versus other] Patient's symptoms improved over duration of stay with above-stated therapies. Findings and discharge diagnosis discussed with patient/family followed by verbalization of understanding Return precautions discussed with patient/family whom verbalize understanding. Discharge Plan Departure Patient Disposition: Home Clinical Impression: Vomiting Qualifiers: Vomiting type: unspecified Vomiting Intractability: non-intractable Nausea presence: with nausea Qualified Code(s): R11.2 - Nausea with vomiting, unspecified Abdominal pain Qualifiers: Abdominal location: unspecified location Qualified Code(s): R10.9 - Unspecified abdominal pain Instructions: DI for Abdominal Pain-Adult Activity Restrictions/Additional Instructions: *You have been diagnosed with [ Nausea, vomiting and abdominal pain. You improved with standard therapies, labs were very reassuring, no indication of pancreatitis today *What to do: *Please continue to take your regular medications as directed. [ ] New medication prescriptions sent to your pharmacy: [ ] [ ] New medication written as a paper prescription [ x] No new medications given *Please follow up with your primary care provider in 2-3 days, call for an appointment. Let them know you were seen in the Emergency Department and that we ask that you be seen in follow up. We will electronically transmit a record of today's note if your PCP is in our system *If you do not have a primary care provider please contact the [facility] Resource line at [phone]. They will ask some questions about your medical history and help get you set up with a doctor in the community. *Return to Emergency Department if you should have any new, worsening or concerning symptoms, such as [fever greater than 101 F, shaking chills, worsening pain, persistent vomiting or other bothersome symptoms] Prescriptions: No Action clopidogrel 75 mg Tablet 75 mg PO DAILY Qty: 0 RF: 0 diclofenac sodium [Voltaren] 1 % gel 1 crys Topical QID PRN (Reason: osteoarthritis) Qty: 0 RF: 0 ondansetron 8 mg tablet,disintegrating See Rx Instructions .ROUTE .COMPLEX Qty: 90 RF: 10 methylphenidate HCl 20 mg tablet See Rx Instructions .ROUTE .COMPLEX Qty: 90 RF: 0 insulin lispro [Humalog U-100 Insulin] 100 unit/mL solution See Rx Instructions SUBCUT USEASDIRECTD RF: 0 ondansetron 4 mg tablet,disintegrating 4 mg PO Q6H PRN (Reason: Nausea) RF: 0 gentamicin 0.3 % drops 1 drp EYE-BOTH TID PRN (Reason: Blepharitis) Qty: 5 RF: 12 Creon 24,000-76,000 -120,000 unit capsule,delayed release(DR/EC) 1 cap PO QID Qty: 120 RF: 12 promethazine 25 mg suppository 25 mg NV Q6H PRNRF: 0 cholecalciferol (vitamin D3) [Vitamin D3] 1,000 unit Capsule 3,000 unit PO DAILY RF: 0 acetaminophen 325 MG tablet 325 mg PO Q4HP PRN (Reason: Pain, Mild) RF: 0 dabigatran etexilate 150 mg Capsule 150 mg PO BID RF: 0 pravastatin 80 mg Tablet 80 mg PO BEDTIME Qty: 0 RF: 0 fluticasone propionate 50 mcg/actuation [place],Suspension 50 mcg intranasal DAILY Qty: 0 RF: 0 lisinopril 2.5 mg Tablet 2.5 mg PO DAILY RF: 0 metoprolol tartrate 25 mg Tablet 12.5 mg PO BID RF: 0 Referrals: Eric Huang MD [Primary Care Provider] -
[2020-09-11] VITALS (14 sets, daily range): BP systolic 89–98; BP diastolic 51–55; PULSE 79–102; RESP 22–33; O2SAT 93–97
[2020-09-11 00:31] LABS: Alanine Aminotransferase 23 IU/L (<50); Albumin 4.8 g/dL (3.5-5.0); Albumin Globulin Ratio 1.8 (1.0-2.8); Alkaline Phosphatase 72 U/L (38-126); Aspartate Aminotransferase 33 IU/L (17-59); BUN Creatinine Ratio 15.6 (6-22); Bilirubin Total 0.7 mg/dL (0.2-1.3); Blood Urea Nitrogen 15 mg/dL (9-20); Calcium 9.8 mg/dL (8.4-10.2); Carbon Dioxide 22 mmol/L (22-32); Chloride 104 mmol/L (98-107); Estimated Glomerular Filt Rate > 60.0 mL/min (>60); Globulin 2.7 g/dL (1.7-4.1); Glucose 69 mg/dL (80-110); HEMOLYSIS 35 (0-50); Lipase 38 U/L (23-300); Potassium 3.6 mmol/L (3.4-5.1); Sodium 142 mmol/L (137-145); Total Protein 7.5 g/dL (6.3-8.2)
--- NOTE | 2020-09-11 00:32 | PC.NURSE ---
Addendum entered by Anat Anthony R.N. 09/11/20 00:35: Noted that pt remains on bear hugger on low setting at this time. provider okay'd. Original Note: pt arousable to light touch. partner at bedside. placed on cardiac monitoring. BP soft after ativan admin, however maintaining MAP >65, HR 80, RR 22. NAD
[2020-09-11 00:37] LABS: Hematocrit 46.4 % (41-53); Hemoglobin 15.2 g/dL (13.5-17.5); Mean Corpuscular Hemoglobin 29.4 PG (26-34); Red Blood Cell Count 5.16 X10^6/uL (4.5-5.9); White Blood Cell Count 13.1 X10^3/uL (4.5-11.0)
[2020-09-11 00:38] LABS: Add Manual Diff / Slide Review YES; Mean Corpuscular HGB Conc 32.6 % (30-36); Platelet Count 196 X10^3/uL (150-400); Red Cell Distribution Width 13.7 % (11.6-14.8)
[2020-09-11 01:56] LABS: Neutrophils Absolute Manual 11659 /uL (3000-5900); Total Cells Counted 100
[2020-09-11 01:57] LABS: RBC Morphology Normal Morphology
== END 2020-09-11 05:36 | disposition home or self-care (01) ==
PROVIDERS: Emergency Provider Emergency Medicine; Family Provider Emergency Medicine Emergency Medical Services; PCP Family Medicine
DX: R10.10 Upper abdominal pain, unspecified (principal); R11.2 Nausea with vomiting, unspecified
CPT/HCPCS: 36415; 80053; 82962; 83690; 85007; 85025; 96361; 96374; 96375; 99284; J0780; J2060

== ENCOUNTER 2020-09-20 09:49 | Emergency (ER) | payer OTHER, SELFPAY ==
[2020-03-26 20:55] VITALS: BMI 24.0
[2020-09-20 09:55] VITALS: BP 161/83; PULSE 87; RESP 14; TEMP 36.4; O2SAT 99; BMI 22.6
== END 2020-09-20 10:10 | disposition left against medical advice (07) ==
PROVIDERS: Emergency Provider Emergency Medicine; Family Provider Emergency Medicine Emergency Medical Services; PCP Family Medicine
CPT/HCPCS: 99281

== ENCOUNTER 2021-03-06 19:07 | Inpatient (IN) | payer OTHER, SELFPAY ==
[2020-03-26 20:55] VITALS: BMI 24.0
[2021-03-06] VITALS (12 sets, daily range): BP systolic 96–106; BP diastolic 53–64; PULSE 131–149; RESP 20–31; TEMP 36.1; O2SAT 94–99
--- NOTE | 2021-03-06 19:51 | ED.ABDPAIN ---
HPI - Abdominal Pain General Chief Complaint: Abdominal Pain Stated Complaint: Pancreatitis Time Seen by Provider: 03/06/21 19:37 Source: patient Mode of arrival: Ambulatory History of Present Illness HPI narrative: 66-year-old gentleman with history of paroxysmal atrial fibrillation for which he is on dabigatran, type 1 diabetes, hypertension and hyperlipidemia and recurrent history of pancreatitis typically controlled at home with pancreatic enzymes, oxycodone, Zofran and Phenergan. This evening he ate around 430 in the afternoon and around 5 began having increasing abdominal pain and by time of presentation at 7 use in significant pain, pale, diaphoretic and dry heaving secondary to pain. He denies chest pain or palpitations. He states this pain absolutely reproduces his pancreatitis pain. He states that he has not had recent fevers, cough, chest pain, vomiting or diarrhea. His chronic pancreatitis and has been well controlled managed over the last number of months. No headaches or neurologic complaints. Related Data Home Medications Medication Instructions Recorded Confirmed clopidogrel 75 mg tablet 75 mg PO DAILY #0 04/15/08 06/17/20 diclofenac sodium 1 % topical gel 1 crys TOPICAL QID PRN #0 03/14/17 06/17/20 (Voltaren) acetaminophen 325 mg tablet 325 mg PO Q4HP PRN 09/25/17 06/17/20 cholecalciferol (vitamin D3) 25 3,000 unit PO DAILY 09/25/17 06/17/20 mcg (1,000 unit) capsule (Vitamin D3) dabigatran etexilate 150 mg capsule 150 mg PO BID 03/24/18 06/17/20 fluticasone propionate 50 50 mcg INTRANASAL DAILY #0 02/13/19 06/17/20 mcg/actuation nasal spray,suspension pravastatin 80 mg tablet 80 mg PO BEDTIME #0 02/13/19 06/17/20 lisinopril 2.5 mg tablet 2.5 mg PO DAILY 04/28/19 06/17/20 metoprolol tartrate 25 mg tablet 12.5 mg PO BID 04/28/19 06/17/20 insulin lispro 100 unit/mL See Rx Instructions SUBCUT 03/15/20 06/17/20 subcutaneous solution (Humalog USEASDIRECTD U-100 Insulin) ondansetron 4 mg disintegrating 4 mg PO Q6H PRN 03/15/20 06/17/20 tablet promethazine 25 mg rectal 25 mg GA Q6H PRN 06/17/20 06/17/20 suppository Previous Rx's Medication Instructions Recorded gentamicin 0.3 % eye drops 1 drp EYE-BOTH TID PRN #5 ml 03/15/20 [id number] 1 cap PO QID #120 cap 03/15/20 24,000-76,000-120,000 unit capsule,delayed rel (Creon) ondansetron 8 mg disintegrating See Rx Instructions .ROUTE 06/09/20 tablet .COMPLEX #90 tab methylphenidate HCl 20 mg tablet See Rx Instructions .ROUTE 02/10/21 .COMPLEX #90 tab Allergies Allergy/AdvReac Type Severity Reaction Status Date / Time Iodine and Iodide Containing Allergy Severe Anaphylaxis Verified 03/26/20 15:09 Produc [IODINE AND IODIDE CONTAINING PRODUC] Sulfa (Sulfonamide Allergy Severe Anaphylaxis Verified 03/26/20 15:09 Antibiotics) [SULFA (SULFONAMIDE ANTIBIOTICS)] Review of Systems Review of Systems Narrative: Remainder of complete review of systems is otherwise unremarkable except for that included in the HPI. Patient History Medical History Acute dehydration Campylobacter enteritis Enteritis, enteropathogenic E. coli Exocrine pancreatic insufficiency Gastroenteritis GERD (gastroesophageal reflux disease) HTN (hypertension) Hyperlipidemia Insulin dependent diabetes mellitus with complications Narcolepsy Nausea vomiting and diarrhea Pancreatitis Paroxysmal atrial fibrillation Paroxysmal atrial fibrillation Peripheral vascular disease Psoriasis Surgical History H/O exploratory laparotomy History of femoropopliteal bypass Hx of biopsy Family History Father Colon cancer Mother Narcolepsy Grandmother Narcolepsy Social History household members: friend(s) Smoking Status: Former smoker Smoking Status: Former smoker alcohol intake frequency: 0-2 drinks per day Substance Use Type: marijuana Exam Narrative Exam Narrative: General: Acutely ill-appearing, pale diaphoretic poorly perfused tachycardic but able to give a completely coherent history. In obvious pain. HEENT: Dry mucous membranes, normal sclera with reactive pupils, Neck: No JVD, supple Respiratory: Lungs are clear to auscultation, no wheezing no rales no rhonchi. Full and symmetrical air movement Cardiac: Tachycardic with no murmurs no bruits Abdomen: Significant left upper quadrant tenderness with guarding, minor tenderness throughout the remainder of the abdomen, no flank pain, hypoactive bowel tones Skin: Pale, diaphoretic, poor peripheral perfusion Neurologic: Grossly neurologically intact with no obvious asymmetries or abnormalities Extremities: No trauma, well perfused Psych: Cooperative, appropriate insight and affect Initial Vital Signs Initial Vital Signs: Vital Signs Temperature 97.0 F L 03/06/21 19:17 Pulse Rate 139 H 03/06/21 19:17 Respiratory Rate 22 03/06/21 19:17 Pulse Oximetry 99 03/06/21 19:17 Procedures Cardioversion Time of Cardioversion: 01:37 Consent Signed: Yes Indication: Atrial flutter with rapid ventricular response Stability: Stable Number of attempts (shocks): 1 Joules used: 100 Cardiac rhythm post-cardioversion: Sinus tach Procedural Sedation Time of procedure: 01:37 Consent signed: Yes Time out performed: Yes Indication: cardioversion ASA Class: II Mallampati Airway Classification: Class II Time of Last PO Intake: 16:30 Preparation: laboratory monitor applied, pulse oximeter, capnometry used, supplemental O2 applied, suction/airway equipment at bedside and IV secured IV Propofol dose (mg): 40 Intraservice time/total sedation time (min): 8 ED Sedation Level: Moderate (Concious) Patient Tolerated Procedure: Well Complications: none Course Orders Ordered: ED Orders 03/06/21 19:20 EKG-12 Lead Stat 03/06/21 21:35 Complete Blood Count AUTO DIFF Stat Comprehensive Metabolic Panel Stat Ketones (Beta-Hydroxybutyrate) Stat Lipase Stat Troponin & CK Cardiac Panel Stat 03/06/21 23:03 CT abdomen pelvis w con Stat 03/07/21 EKG-12 Lead Stat 03/07/21 02:40 COVID19 - ADMIT ([employer] swab/PCR) Stat Acetaminophen (Acetaminophen 325 Mg Tablet) 650 mg PO Q6HR PRN PRN Reason: Fever/Mild Pain (1-3) Dextrose (Dextrose 50 % In Water 25 Gm/50 Ml Syringe) 25 gm IV PRN PRN PRN Reason: Hypoglycemia Enoxaparin Sodium (Enoxaparin 40 Mg/0.4 Ml Syringe) 40 mg SUBCUT DAILY [facility] Hydromorphone HCl (Hydromorphone 0.5 Mg Inj) 0.5 mg IV Q15MIN PRN PRN Reason: Pain, Last Admin: 03/06/21 20:24 Dose: 0.5 mg Documented by: LEONEL Hydromorphone HCl (Hydromorphone 1 Mg Inj) 1 mg IV Q6H PRN PRN Reason: Pain, Severe (7-10) Sodium Chloride (Normal Saline 0.9%) 1,000 mls @ 150 mls/hr IV CONT KATHY Last Admin: 03/07/21 02:51 Dose: 150 mls/hr Documented by: LEONEL Sodium Chloride (Normal Saline 0.9%) 1,000 mls @ 100 mls/hr IV CONT KATHY Cefepime HCl 2 gm/ Sodium (Chloride) 100 mls @ 200 mls/hr IV Q12H KATHY Metronidazole (Flagyl) 500 mg in 100 mls @ 100 mls/hr IV Q8H [facility] Insulin Human Lispro (Insulin Lispro 100 Unit/Ml 3ml Vial) 0 unit SUBCUT ACHS KATHY; Protocol Naloxone HCl (Naloxone 0.4 Mg/Ml Vial) 0.2 mg IV Q2MIN PRN PRN Reason: Opiate Reversal Ondansetron HCl (Ondansetron 4 Mg/2 Ml Inj) 4 mg IV Q8HR PRN PRN Reason: Nausea And Vomiting Discontinued Medications Diphenhydramine HCl (Diphenhydramine 50 Mg/Ml Vial) 50 mg IV NOW ONE Stop: 03/06/21 23:24 Last Admin: 03/06/21 23:30 Dose: 50 mg Documented by: LEONEL Hydromorphone HCl (Hydromorphone 1 Mg Inj) 1 mg IV NOW ONE Stop: 03/06/21 19:51 Last Admin: 03/06/21 19:58 Dose: 1 mg Documented by: LEONEL Hydromorphone HCl (Hydromorphone 1 Mg Inj) 1 mg IV NOW ONE Stop: 03/06/21 23:04 Last Admin: 03/06/21 23:11 Dose: 1 mg Documented by: LEONEL Sodium Chloride (Normal Saline 0.9%) 1,000 mls @ 1,000 mls/hr IV BOLUS ONE Stop: 03/06/21 20:49 Last Infusion: 03/06/21 21:08 Dose: 0 mls/hr Documented by: Admin: 03/06/21 20:04 Dose: 1,000 mls/hr Documented by: LEONEL Sodium Chloride (Normal Saline 0.9%) 1,000 mls @ 1,000 mls/hr IV BOLUS ONE Stop: 03/06/21 20:50 Last Infusion: 03/06/21 22:09 Dose: 0 mls/hr Documented by: Admin: 03/06/21 20:05 Dose: 1,000 mls/hr Documented by: LEONEL Sodium Chloride (Normal Saline 0.9%) 1,000 mls @ 1,000 mls/hr IV BOLUS ONE Stop: 03/07/21 00:02 Last Infusion: 03/07/21 01:00 Dose: 0 mls/hr Documented by: Admin: 03/06/21 23:12 Dose: 1,000 mls/hr Documented by: LEONEL Lorazepam (Lorazepam 2 Mg/Ml Inj) 1 mg IV NOW ONE Stop: 03/06/21 19:51 Last Admin: 03/06/21 20:03 Dose: 1 mg Documented by: LEONEL Prochlorperazine (Prochlorperazine 10 Mg/2 Ml Vial) 10 mg IV NOW ONE Stop: 03/06/21 19:51 Last Admin: 03/06/21 20:02 Dose: 10 mg Documented by: LEONEL Propofol (Propofol 200 Mg/20 Ml Vial) 200 mg IV NOW ONE Stop: 03/07/21 01:03 Last Admin: 03/07/21 01:19 Dose: 40 mg Documented by: LEONEL Vital Signs Vital signs: Vital Signs - 8 hr 03/06/21 20:02 03/06/21 20:30 03/06/21 20:43 Pulse Rate 131 H 139 H 137 H Respiratory Rate 23 22 Blood Pressure 103/64 98/58 L Pulse Oximetry 95 03/06/21 21:00 03/06/21 21:30 03/06/21 22:00 Pulse Rate 135 H 131 H 140 H Respiratory Rate 22 24 24 Blood Pressure 99/58 L 106/59 L 102/57 L Pulse Oximetry 95 95 98 03/06/21 22:30 03/06/21 23:00 03/06/21 23:06 Pulse Rate 145 H 143 H 149 H Respiratory Rate 25 H 31 H 24 Blood Pressure 96/53 L 102/62 Pulse Oximetry 96 96 03/06/21 23:30 03/07/21 00:00 03/07/21 00:30 Pulse Rate 142 H 135 H 143 H Respiratory Rate 20 17 Blood Pressure 106/57 L Pulse Oximetry 94 90 L 92 03/07/21 01:00 03/07/21 01:02 03/07/21 01:08 Pulse Rate 142 H 143 H 141 H Respiratory Rate 16 17 16 Blood Pressure 90/55 L 88/52 L Pulse Oximetry 92 92 93 03/07/21 01:11 03/07/21 01:15 03/07/21 01:20 Pulse Rate 142 H 138 H 137 H Respiratory Rate 27 H 19 13 Blood Pressure 106/58 L 97/59 L 104/54 L Pulse Oximetry 95 95 96 03/07/21 01:25 03/07/21 01:30 03/07/21 01:34 Pulse Rate 109 H 111 H 110 H Respiratory Rate 31 H 18 16 Blood Pressure 99/54 L 94/51 L Pulse Oximetry 98 97 03/07/21 01:35 03/07/21 01:45 03/07/21 02:00 Pulse Rate 112 H 112 H 113 H Respiratory Rate 17 17 18 Blood Pressure 97/55 L 99/55 L 89/52 L Pulse Oximetry 95 95 94 03/07/21 02:15 03/07/21 02:30 03/07/21 02:34 Pulse Rate 113 H 112 H 115 H Respiratory Rate 16 16 24 Blood Pressure 89/53 L 93/51 L 92/53 L Pulse Oximetry 94 94 97 03/07/21 02:45 Pulse Rate 111 H Respiratory Rate 17 Blood Pressure 92/51 L Pulse Oximetry 95 MDM - Abdominal Pain Medical Records Medical records narrative: Patient has a history of iodine allergy. In March his treated with 50 mg of IV Benadryl prior to CT scan of the abdomen with IV contrast in tolerated the contrast well. Will repeat that today. Lab Data Result diagrams: 03/06/21 21:35 03/06/21 21:35 Labs: Lab Results 03/06/21 03/06/21 03/06/21 Range/Units 21:35 21:35 21:35 WBC 11.7 H (4.5-11.0) X10^3/uL RBC 5.16 (4.5-5.9) X10^6/uL Hgb 15.1 (13.5-17.5) g/dL Hct 46.2 (41-53) % MCV 89.7 (80-100) fL MCH 29.4 (26-34) PG MCHC 32.8 (30-36) % RDW 14.5 (11.6-14.8) % Plt Count 242 (150-400) X10^3/uL Neut % (Auto) 90.2 H (50-75) % Lymph % (Auto) 2.5 L (25-40) % [place] % (Auto) 6.3 (3-14) % Eos % (Auto) 0.7 L (2-4) % Baso % (Auto) 0.3 (0-2) % Neut # (Auto) 57709 H (1236-1414) /uL Lymph # (Auto) 300 L (2059-8707) /uL [place] # (Auto) 700 (0-900) /uL Eos # (Auto) 100 (0-450) /uL Baso # (Auto) 0 (0-100) /uL Sodium 139 (137-145) mmol/L Potassium 4.2 (3.4-5.1) mmol/L Chloride 107 (98-107) mmol/L Carbon Dioxide 23 (22-32) mmol/L BUN 9 (9-20) mg/dL Creatinine 0.75 (0.66-1.25) mg/dL Estimated GFR > 60.0 (>60) mL/min BUN/Creatinine Ratio 12.0 (6-22) Glucose 128 H (80-110) mg/dL Calcium 9.3 (8.4-10.2) mg/dL Total Bilirubin 0.7 (0.2-1.3) mg/dL AST 28 (17-59) IU/L ALT 19 (<50) IU/L Alkaline Phosphatase 75 (38-126) U/L Total Creatine Kinase (55-170) U/L CK-MB (CK-2) CK-MB (CK-2) Rel Index Troponin I (0.01-0.034) ng/mL Total Protein 7.5 (6.3-8.2) g/dL Albumin 4.6 (3.5-5.0) g/dL Globulin 2.9 (1.7-4.1) g/dL Albumin/Globulin Ratio 1.6 (1.0-2.8) Lipase 108 (23-300) U/L Ketones 0.34 H (<0.27) mmol/L 03/06/21 Range/Units 21:35 WBC (4.5-11.0) X10^3/uL RBC (4.5-5.9) X10^6/uL Hgb (13.5-17.5) g/dL Hct (41-53) % MCV (80-100) fL MCH (26-34) PG MCHC (30-36) % RDW (11.6-14.8) % Plt Count (150-400) X10^3/uL Neut % (Auto) (50-75) % Lymph % (Auto) (25-40) % [place] % (Auto) (3-14) % Eos % (Auto) (2-4) % Baso % (Auto) (0-2) % Neut # (Auto) (4012-6952) /uL Lymph # (Auto) (4400-1777) /uL [place] # (Auto) (0-900) /uL Eos # (Auto) (0-450) /uL Baso # (Auto) (0-100) /uL Sodium (137-145) mmol/L Potassium (3.4-5.1) mmol/L Chloride (98-107) mmol/L Carbon Dioxide (22-32) mmol/L BUN (9-20) mg/dL Creatinine (0.66-1.25) mg/dL Estimated GFR (>60) mL/min BUN/Creatinine Ratio (6-22) Glucose (80-110) mg/dL Calcium (8.4-10.2) mg/dL Total Bilirubin (0.2-1.3) mg/dL AST (17-59) IU/L ALT (<50) IU/L Alkaline Phosphatase (38-126) U/L Total Creatine Kinase 100 (55-170) U/L CK-MB (CK-2) TNP CK-MB (CK-2) Rel Index TNP Troponin I < 0.012 (0.01-0.034) ng/mL Total Protein (6.3-8.2) g/dL Albumin (3.5-5.0) g/dL Globulin (1.7-4.1) g/dL Albumin/Globulin Ratio (1.0-2.8) Lipase (23-300) U/L Ketones (<0.27) mmol/L Point of care testing: Point of Care Testing Glucose POC [address] scan - abdomen/pelvis: Radiologist's Impression: FINDINGS:? Image quality:? Good.? ? Lung bases:? Bibasilar atelectasis.? No pleural effusion.? ? Heart:? No significant findings. ? ? ABDOMEN: Liver:? Unremarkable.? ? Gallbladder:? Prominent size.? No calcified gallstones. Biliary ducts:? Unremarkable.? ? Pancreas:? No peripancreatic fluid. Spleen:? No splenomegaly. Adrenal Glands:? No nodules. Kidneys and Ureters:? No hydronephrosis. ? Stomach and Bowel:? Liquid stool contents in the distal colon and rectum.? This is suggestive of diarrhea.? There is possible wall thickening involving the sigmoid colon.? Colonic diverticulosis.? No diverticulitis demonstrated.? The appendix is not dilated.? There is a mildly prominent loop of small bowel in the mid abdomen which is fluid-filled. ?No bowel obstruction demonstrated. Peritoneum:? No abnormal intraperitoneal fluid.? No free air.? ? Ventral Wall: ? No hernia.? Abdominal Nodes:? No retroperitoneal or mesenteric adenopathy by size criteria.? Vessels:? Aorta and inferior vena cava are normal in size.? Calcified plaque.? Retroaortic left renal vein. ? PELVIS: Pelvic Organs:? Unremarkable.? ? Bladder:? Within normal limits.? ? Pelvic Nodes: No enlarged lymph nodes.? Miscellaneous: No inguinal hernias are seen. ? ? ? Bones:? DDD.? No suspicious lesion. ? ? IMPRESSION:? 1. Liquid stool contents in the colon.? This is suspicious for diarrhea. ? 2. Diverticulosis.? No diverticulitis demonstrated.? No free fluid. ? 3. Question of wall thickening involving the sigmoid colon.? -This could be further evaluated with colonoscopy if not recently performed. ? 4. Mildly prominent loop of small bowel in the mid abdomen.? However, the other loops of bowel are normal in caliber.? No transition point to suggest bowel obstruction.? ? Dictated by: Robert Guevara M.D. on 03/07/2021 at 0:43 ? ? ECG Data Interpretation: Atrial flutter at a rate of 142 Variable AV block Nonspecific ST T wave changes Post cardioversion, Sinus tachycardia rate of 112 Normal intervals, normal axis Resolution of nonspecific T-wave changes noted previously MDM Narrative Medical decision making narrative: 66-year-old type 1 diabetic with chronic pancreatitis presents with acute onset left upper quadrant pain that he presumed was his recurrent pancreatitis. His lipase is normal, he does not have an anion gap to suggest diabetic ketoacidosis. Troponin is unremarkable. White count is minimally elevated 11.7 with neutrophils at 90.2. After 2 L of fluid his overall perfusion has improved significantly. He remains in atrial flutter at a rate of 145-150. He notes that typically he needs to just be cardioverted. With the severe and acute onset pain in the left upper quadrant and no corresponding lab abnormalities worried that we are still missing some factor that needs to be identified. To that end I am going to recommend additional pain medication, another L of fluid the CT scan. If remainder of workup at that point is unremarkable anticipate Cardioversion for his atrial flutter (he is chronically anticoagulated) CT scan is unremarkable. No evidence of bowel obstruction, surgical diagnoses or acute dermatitis. Patient remains in atrial flutter blood pressure is responded to fluids. Pain is adequately controlled. Will plan for cardioversion. Has done well with propofol the past. Is currently chronically anticoagulated with dabigatran 1:40 tolerated cardioversion well, is waking from sedation 2:30 patient is sleeping soundly but when woken up continues to complain of feeling poorly. He remains tachycardic with sinus tach in the 110-115 range and relatively hypotensive walk around a sleep 92/41 once awake increases to 98/65. At this point I am not seeing any evidence for acute infection, CT scan does not show dramatic pancreatitis however his pain is consistent with his acute on chronic pancreatitis in the setting of little pancreas left and was significant enough that it did flip him into is atrial fibrillation now cardioverted. With his complaints of pain continuing, his persistent tachycardia and hypotension he is not safe to discharge home and will be admitted to the hospitalist service. Random blood sugar is currently 181 and he has no evidence of diabetic ketoacidosis or of acute coronary syndrome either. Case is reviewed with Ms. Germain nurse practitioner, and care is excepted. Discharge Plan Departure Patient Disposition: Admitted as Observation Clinical Impression: Acute pancreatitis, Chronic pancreatitis, Atrial flutter, Abdominal pain, Diabetes mellitus type 1 Admit Date/Time: 03/07/21 02:47 Admit Provider: Brandi Germain
[2021-03-06] MEDS: HYDROMORPHONE 1 MG INJ IV ×2 (19:58→23:11)
[2021-03-06] MEDS: PROCHLORPERAZINE 10 MG/2 ML VIAL IV (20:02)
[2021-03-06] MEDS: LORazepam 2 MG/ML INJ 1 MG IV (20:03)
[2021-03-06] MEDS: SODIUM CHLORIDE 0.9% 1,000 ML 1000 ML IV ×3 (20:04→23:12)
[2021-03-06] MEDS: HYDROMORPHONE 0.5 MG INJ IV (20:24)
[2021-03-06 21:44] LABS: Add Manual Diff / Slide Review NO; Basophils Absolute Auto 0 /uL (0-100); Basophils Percent Auto 0.3 % (0-2); Eosinophils Absolute Auto 100 /uL (0-450); Eosinophils Percent Auto 0.7 % (2-4); Hematocrit 46.2 % (41-53); Hemoglobin 15.1 g/dL (13.5-17.5); Lymphocytes Absolute Auto 300 /uL (1100-4500); Lymphocytes Percent Auto 2.5 % (25-40); Mean Corpuscular HGB Conc 32.8 % (30-36); Mean Corpuscular Hemoglobin 29.4 PG (26-34); Mean Corpuscular Volume 89.7 fL (80-100); Monocytes Absolute Auto 700 /uL (0-900); Monocytes Percent Auto 6.3 % (3-14); Neutrophils Absolute Auto 10500 /uL (1500-7000); Neutrophils Percent Auto 90.2 % (50-75); Platelet Count 242 X10^3/uL (150-400); Red Blood Cell Count 5.16 X10^6/uL (4.5-5.9); Red Cell Distribution Width 14.5 % (11.6-14.8); White Blood Cell Count 11.7 X10^3/uL (4.5-11.0)
[2021-03-06 21:57] LABS: Alanine Aminotransferase 19 IU/L (<50); Albumin 4.6 g/dL (3.5-5.0); Albumin Globulin Ratio 1.6 (1.0-2.8); Alkaline Phosphatase 75 U/L (38-126); Aspartate Aminotransferase 28 IU/L (17-59); Bilirubin Total 0.7 mg/dL (0.2-1.3); Blood Urea Nitrogen 9 mg/dL (9-20); Calcium 9.3 mg/dL (8.4-10.2); Carbon Dioxide 23 mmol/L (22-32); Chloride 107 mmol/L (98-107); Estimated Glomerular Filt Rate > 60.0 mL/min (>60); Globulin 2.9 g/dL (1.7-4.1); Glucose 128 mg/dL (80-110); HEMOLYSIS 25 (0-50); Lipase 108 U/L (23-300); Potassium 4.2 mmol/L (3.4-5.1); Sodium 139 mmol/L (137-145); Total Protein 7.5 g/dL (6.3-8.2)
[2021-03-06 21:59] LABS: Ketones (Beta-Hydroxybutyrate) 0.34 mmol/L (<0.27)
[2021-03-06 22:12] LABS: Creatine Kinase 100 U/L (55-170)
[2021-03-06 22:25] LABS: Troponin I < 0.012 ng/mL (0.01-0.034)
--- NOTE | 2021-03-06 23:03 | DI.CT.S_ITS ---
PROCEDURE: CT ABDOMEN PELVIS W CON INDICATIONS: acute onset severe LUQ pain TECHNIQUE: After the administration of oral and IV contrast, axial sections were acquired from the lung bases to the pubic symphysis. Coronal and sagittal reformats were performed. For radiation dose reduction, the following was used: automated exposure control, adjustment of mA and/or kV according to patient size. Patient received premedication for prior contrast allergy. COMPARISON: [facility], CT, CT ABDOMEN PELVIS W CON, 08/29/2019, 10:23. [facility], CT, CT ABDOMEN PELVIS W CON, 03/26/2020, 16:45. FINDINGS: Image quality: Good. Lung bases: Bibasilar atelectasis. No pleural effusion. Heart: No significant findings. ABDOMEN: Liver: Unremarkable. Gallbladder: Prominent size. No calcified gallstones. Biliary ducts: Unremarkable. Pancreas: No peripancreatic fluid. Spleen: No splenomegaly. Adrenal Glands: No nodules. Kidneys and Ureters: No hydronephrosis. Stomach and Bowel: Liquid stool contents in the distal colon and rectum. This is suggestive of diarrhea. There is possible wall thickening involving the sigmoid colon. Colonic diverticulosis. No diverticulitis demonstrated. The appendix is not dilated. There is a mildly prominent loop of small bowel in the mid abdomen which is fluid-filled. No bowel obstruction demonstrated. Peritoneum: No abnormal intraperitoneal fluid. No free air. Ventral Wall: No hernia. Abdominal Nodes: No retroperitoneal or mesenteric adenopathy by size criteria. Vessels: Aorta and inferior vena cava are normal in size. Calcified plaque. Retroaortic left renal vein. PELVIS: Pelvic Organs: Unremarkable. Bladder: Within normal limits. Pelvic Nodes: No enlarged lymph nodes. Miscellaneous: No inguinal hernias are seen. Bones: DDD. No suspicious lesion. IMPRESSION: 1. Liquid stool contents in the colon. This is suspicious for diarrhea. 2. Diverticulosis. No diverticulitis demonstrated. No free fluid. 3. Question of wall thickening involving the sigmoid colon. -This could be further evaluated with colonoscopy if not recently performed. 4. Mildly prominent loop of small bowel in the mid abdomen. However, the other loops of bowel are normal in caliber. No transition point to suggest bowel obstruction. Dictated by: Robert Guevara M.D. on 03/07/2021 at 0:43 Approved by: Robert Guevara M.D. on 03/07/2021 at 0:53
[2021-03-06] MEDS: diphenhydrAMINE 50 MG/ML VIAL IV (23:30)
[2021-03-07] VITALS (29 sets, daily range): BP systolic 86–118; BP diastolic 50–70; PULSE 72–143; RESP 13–31; TEMP 37–37.7; O2SAT 90–99; BMI 22.9
[2021-03-07] MEDS: propofoL 200 MG/20 ML VIAL IV (01:19)
[2021-03-07] MEDS: SODIUM CHLORIDE 0.9% 1,000 ML 150 ML IV (02:51)
--- NOTE | 2021-03-07 03:06 | PM.HP.1 ---
History of Present Illness History of Present Illness Date Patient Seen: 03/07/21 Time Patient Seen: 03:06 Chief complaint: Pancreatitis Narrative: Jann Diehl is a 66-year-old gentleman with history of paroxysmal atrial fibrillation for which he is on dabigatran/plavix, type 1 diabetes, GERD, hypertension chronic pancreatitis, pancreatic insufficiency, and hyperlipidemia and recurrent history of pancreatitis typically controlled at home with pancreatic enzymes, oxycodone, Zofran and Phenergan.? This evening he ate around 430 in the afternoon and around 5 began having increasing abdominal pain and by time of presentation at 7 use in significant pain, pale, diaphoretic and dry heaving secondary to pain.? He denies chest pain or palpitations.? He states this pain absolutely reproduces his pancreatitis pain.? He states that he has not had recent illness, fevers, cough, chest pain, SOB, vomiting, icterus, or diarrhea.? His chronic pancreatitis and has been well controlled managed over the last number of months.? No headaches or neurologic complaints. Patient presented to the ED in proximal atrial fibrillation with RVR, and was successfully cardioverted. Patient originally presented to the ED with a BP of 103/64, HR 139, RR 27, O2 saturation 95% on room air. Patient's EKG initially demonstrated atrial flutter with variable AV block, nonspecific T-wave abnormalities rate 141. Again patient was successfully cardioverted in the ED and is currently in tachycardic sinus rhythm upon admit temp 97?, BP 97/55, still remains tachycardic with a heart rate of 111, RR 17, O2 saturation 98% on room air. Patient does have a mildly elevated WBC at 11.7, with a left shift neutrophils 10,500, the rest of the patient's CBC and chemistry panel including liver enzymes WNL. Glucose 128. Troponins WNL, patient was positive for ketones 0.34. Patient being admitted due to his continued tachycardia, and decreasing blood pressure, cause for elevated WBC unknown at this time no infectious process identified. Patient admitted for acute on chronic pancreatitis in the setting of proximal atrial fibrillation with RVR. Patient History Medical History Acute dehydration Campylobacter enteritis Enteritis, enteropathogenic E. coli Exocrine pancreatic insufficiency Gastroenteritis GERD (gastroesophageal reflux disease) HTN (hypertension) Hyperlipidemia Insulin dependent diabetes mellitus with complications Narcolepsy Nausea vomiting and diarrhea Pancreatitis Paroxysmal atrial fibrillation Paroxysmal atrial fibrillation Peripheral vascular disease Psoriasis Surgical History H/O exploratory laparotomy History of femoropopliteal bypass Hx of biopsy Family & Social History Family History Father Colon cancer Mother Narcolepsy Grandmother Narcolepsy Social History: household members friend(s) Tobacco & Substance use: Smoking Status Former smoker alcohol intake frequency 0-2 drinks per day Substance Use Type marijuana Meds Home Medications and Allergies Home Medications Medication Instructions Recorded Confirmed Type clopidogrel 75 mg tablet 75 mg PO DAILY #0 04/15/08 06/17/20 History diclofenac sodium 1 % topical gel 1 crys TOPICAL QID PRN #0 03/14/17 06/17/20 History (Voltaren) acetaminophen 325 mg tablet 325 mg PO Q4HP PRN 09/25/17 06/17/20 History cholecalciferol (vitamin D3) 25 3,000 unit PO DAILY 09/25/17 06/17/20 History mcg (1,000 unit) capsule (Vitamin D3) dabigatran etexilate 150 mg capsule 150 mg PO BID 03/24/18 06/17/20 History fluticasone propionate 50 50 mcg INTRANASAL DAILY #0 02/13/19 06/17/20 History mcg/actuation nasal spray,suspension pravastatin 80 mg tablet 80 mg PO BEDTIME #0 02/13/19 06/17/20 History lisinopril 2.5 mg tablet 2.5 mg PO DAILY 04/28/19 06/17/20 History metoprolol tartrate 25 mg tablet 12.5 mg PO BID 04/28/19 06/17/20 History gentamicin 0.3 % eye drops 1 drp EYE-BOTH TID PRN #5 ml 03/15/20 06/17/20 Rx insulin lispro 100 unit/mL See Rx Instructions SUBCUT 03/15/20 06/17/20 History subcutaneous solution (Humalog USEASDIRECTD U-100 Insulin) [id number] 1 cap PO QID #120 cap 03/15/20 06/17/20 Rx 24,000-76,000-120,000 unit capsule,delayed rel (Creon) ondansetron 4 mg disintegrating 4 mg PO Q6H PRN 03/15/20 06/17/20 History tablet ondansetron 8 mg disintegrating See Rx Instructions .ROUTE 06/09/20 06/17/20 Rx tablet .COMPLEX #90 tab promethazine 25 mg rectal 25 mg VT Q6H PRN 06/17/20 06/17/20 History suppository methylphenidate HCl 20 mg tablet See Rx Instructions .ROUTE 02/10/21 Rx .COMPLEX #90 tab Allergies Allergy/AdvReac Type Severity Reaction Status Date / Time Iodine and Iodide Containing Allergy Severe Anaphylaxis Verified 03/26/20 15:09 Produc [IODINE AND IODIDE CONTAINING PRODUC] Sulfa (Sulfonamide Allergy Severe Anaphylaxis Verified 03/26/20 15:09 Antibiotics) [SULFA (SULFONAMIDE ANTIBIOTICS)] Review of Systems Review of Systems Narrative: All 12 point systems reviewed with the patient and are negative except otherwise documented. Exam Vital Signs (past 8 hours): - 03/06/21 19:17 03/06/21 19:48 03/06/21 20:02 Temperature 97.0 F L Pulse Rate 139 H 137 H 131 H Respiratory Rate 22 27 H Blood Pressure 103/64 103/64 Pulse Oximetry 99 95 03/06/21 20:30 03/06/21 20:43 03/06/21 21:00 Temperature Pulse Rate 139 H 137 H 135 H Respiratory Rate 23 22 22 Blood Pressure 98/58 L 99/58 L Pulse Oximetry 95 95 03/06/21 21:30 03/06/21 22:00 03/06/21 22:30 Temperature Pulse Rate 131 H 140 H 145 H Respiratory Rate 24 24 25 H Blood Pressure 106/59 L 102/57 L 96/53 L Pulse Oximetry 95 98 96 03/06/21 23:00 03/06/21 23:06 03/06/21 23:30 Temperature Pulse Rate 143 H 149 H 142 H Respiratory Rate 31 H 24 20 Blood Pressure 102/62 106/57 L Pulse Oximetry 96 94 03/07/21 00:00 03/07/21 00:30 03/07/21 01:00 Temperature Pulse Rate 135 H 143 H 142 H Respiratory Rate 17 16 Blood Pressure Pulse Oximetry 90 L 92 92 03/07/21 01:02 03/07/21 01:08 03/07/21 01:11 Temperature Pulse Rate 143 H 141 H 142 H Respiratory Rate 17 16 27 H Blood Pressure 90/55 L 88/52 L 106/58 L Pulse Oximetry 92 93 95 03/07/21 01:15 03/07/21 01:20 03/07/21 01:25 Temperature Pulse Rate 138 H 137 H 109 H Respiratory Rate 19 13 31 H Blood Pressure 97/59 L 104/54 L 99/54 L Pulse Oximetry 95 96 98 03/07/21 01:30 03/07/21 01:34 03/07/21 01:35 Temperature Pulse Rate 111 H 110 H 112 H Respiratory Rate 18 16 17 Blood Pressure 94/51 L 97/55 L Pulse Oximetry 97 95 03/07/21 01:45 03/07/21 02:00 03/07/21 02:15 Temperature Pulse Rate 112 H 113 H 113 H Respiratory Rate 17 18 16 Blood Pressure 99/55 L 89/52 L 89/53 L Pulse Oximetry 95 94 94 03/07/21 02:30 03/07/21 02:34 03/07/21 02:45 Temperature Pulse Rate 112 H 115 H 111 H Respiratory Rate 16 24 17 Blood Pressure 93/51 L 92/53 L 92/51 L Pulse Oximetry 94 97 95 Oxygen Delivery Method Room Air Narrative Exam Narrative: General: Patient is a well-developed, well-nourished male in no acute distress at this time. HEENT: Normocephalic, atraumatic, extraocular muscles intact, oral pharynx is clear and mucous membranes are moist. Neck is supple and symmetric, trachea is midline, no adenopathy, no thyroid enlargement, nontender, no masses palpated. Negative for JVD Chest: Normal AP diameter and contour without kyphoscoliosis, no nasal flaring, retractions, or tachypneic labored Lungs: Auscultation of all lung godfrey are clear without adventitious sounds, wheezes, rhonchi, or rales. Cardio: S1 & S2 with regular rate and rhythm without murmur, rubs, or gallops, no carotid bruit, no cardiac pulsations present. Abdomen: Soft diffuse tenderness, most pronounced on the left upper and lower abdominal area, unable to palpate for organomegaly, or masses. Bowel sounds are present in all 4 quadrants, patient demonstrates mild guarding and rebound with bilateral CVA tenderness. Musculoskeletal: Muscle strength and tone are equal within normal limits, no deformity, crepitus, effusions, cyanosis, clubbing or edema present. Full range of motion intact radial and pedal pulses are normal. Skin: Warm dry and intact without rashes, ulcerations or petechiae. Neuro: Alert and orientated x3, strength is +5/5 in all extremities, sensation to touch intact, no gross deficits noted of cranial nerves. Psych: Patient has a well-kept appearance, appropriate affect, mental status attitude thought context and judgment are appropriate for age. Objective Labs Result Diagrams: 03/06/21 21:35 03/06/21 21:35 Labs: Laboratory Results - last 24 hr 03/06/21 03/06/21 03/06/21 21:35 21:35 21:35 WBC 11.7 H RBC 5.16 Hgb 15.1 Hct 46.2 MCV 89.7 MCH 29.4 MCHC 32.8 RDW 14.5 Plt Count 242 Neut % (Auto) 90.2 H Lymph % (Auto) 2.5 L Orange % (Auto) 6.3 Eos % (Auto) 0.7 L Baso % (Auto) 0.3 Neut # (Auto) 72406 H Lymph # (Auto) 300 L Orange # (Auto) 700 Eos # (Auto) 100 Baso # (Auto) 0 Sodium 139 Potassium 4.2 Chloride 107 Carbon Dioxide 23 BUN 9 Creatinine 0.75 Estimated GFR > 60.0 BUN/Creatinine Ratio 12.0 Glucose 128 H Calcium 9.3 Total Bilirubin 0.7 AST 28 ALT 19 Alkaline Phosphatase 75 Total Creatine Kinase CK-MB (CK-2) CK-MB (CK-2) Rel Index Troponin I Total Protein 7.5 Albumin 4.6 Globulin 2.9 Albumin/Globulin Ratio 1.6 Lipase 108 Ketones 0.34 H 03/06/21 21:35 WBC RBC Hgb Hct MCV MCH MCHC RDW Plt Count Neut % (Auto) Lymph % (Auto) Orange % (Auto) Eos % (Auto) Baso % (Auto) Neut # (Auto) Lymph # (Auto) Orange # (Auto) Eos # (Auto) Baso # (Auto) Sodium Potassium Chloride Carbon Dioxide BUN Creatinine Estimated GFR BUN/Creatinine Ratio Glucose Calcium Total Bilirubin AST ALT Alkaline Phosphatase Total Creatine Kinase 100 CK-MB (CK-2) TNP CK-MB (CK-2) Rel Index TNP Troponin I < 0.012 Total Protein Albumin Globulin Albumin/Globulin Ratio Lipase Ketones Assessment & Plan Assessment & Plan narrative: Jann Diehl is a 66-year-old gentleman with history of paroxysmal atrial fibrillation for which he is on dabigatran, type 1 diabetes, GERD, hypertension and hyperlipidemia and recurrent history of pancreatitis typically controlled at home with pancreatic enzymes, oxycodone, Zofran and Phenergan. Patient being admitted due to his continued tachycardia, and decreasing blood pressure, cause for elevated WBC unknown at this time no infectious process identified. Patient admitted for acute on chronic pancreatitis in the setting of paroxysmal atrial fibrillation with RVR. 1. Acute pancreatitis, acute on chronic, secondary to Chronic pancreatic insufficiency with secondary insulin-dependent type 1 diabetes mellitus, present on admission.-stable Differential diagnosis includes chronic pancreatitis (lipase normal as to be expected) vs. microscopic colitis vs.? Ischemic colitis vs. less likely infectious colitis. -if patient does not improve over the next 24-48 hours consider General surgery consult and or advanced imaging MRCP -Do to WBC, Neut, tachycardia, hypotension, and complex hx-will cover patient for intraabd infection Cefepine 2 gram Q12hrs/Metronidazole 500mg Q8hrs. -ordered bld cultures prior to starting antibiotics -initail v/s ED: BP of 103/64, HR 139, RR 27, O2 saturation 95% on room air. -upon admit temp 97?, BP 97/55, still remains tachycardic with a heart rate of 111, RR 17, O2 saturation 98% on room air. -patient's HGB, HCT, PLT are all within normal limits, patient is not in THERESA or DKA. Does not meet SIRs Criteria, SOFA:0 -WBC 11.7, with a left shift neutrophils 10,500. -liver enzymes WNL. Glucose 128. Troponins WNL, ketones 0.34. - CT of abdomen and pelvis demonstrated no imaging that would explain patient's presentation, liquid stool contents in the colon, suspicious for diarrhea. positive diverticulosis.? No diverticulitis demonstrated.? no free fluid. Question of wall thickening involving the sigmoid colon.? -This could be further evaluated with colonoscopy if not recently performed. Mildly prominent loop of small bowel in the mid abdomen.? However, the other loops of bowel are normal in caliber.? No transition point to suggest bowel obstruction.? -NENANA II Score: 13, mortality risk of 15% with a score greater than 8. -Previous admissions for colitis and pancreatic issues 04/29/2019, 08/25/2019, 03/27/2020 -Continue antiemetics and pain management. -rehydration:? Patient received 3L/NS in the emergency room, continue rehydration NS at 100 cc/HR- monitor for fluid overload -patient NPO-initiate trial clear liquids once patient has sustained absence nausea/vomiting, the goal to resolve in 24-48 hours, once patient has completed a trial of clear liquids may advance to a low-fiber diet as tolerated -monitor hematocrit and BUN -currently hematocrit 46.2%, BUN 9 -Holding patients Creon 3 times a day with meals.? -Utilizing low-dose correctional insulin per patients personal protocol. Patient only uses daytime sliding scale for glucose control. 2. Paroxysmal atrial fibrillation, acute on chronic, present on admission - EKG initially demonstrated atrial flutter with variable AV block, nonspecific T-wave abnormalities rate 141. Again patient was successfully cardioverted in the ED and is currently in tachycardiac sinus rhythm -Hold metoprolol tartrate 50 mg twice daily and Pradaxa 150 mg twice daily. Until patient can tolerate oral food and fluids, also hold metoprolol for blood pressure SBP>100 or DBP> 80 3.?Hypertension, essential, chronic, present on admission. -monitor patient on Heidi Shaulis-med- pt continues to be hypotensive 90/54- will monitor for septic shock -Hold lisinopril 20 mg daily and metoprolol tartrate 50 mg b.i.d.- blood pressure SBP>100 or DBP> 80 4.?Hyperlipidemia and peripheral vascular disease, chronic, present on admission.? Stable. -Hold/to continue once tolerating orals clopidogrel 75 mg daily. 5.?GERD, chronic, present on admission.? Stable. -Hold pantoprazole 40 mg daily. Code status:? Full Surrogate/plan of care:? Daughter Andria WORTHINGTON PCR:? Negative VTE prophylaxis:? SCDs, enoxaparin 40 mg to be stopped once patient returns to p.o. foods and fluids he will restart his Plavix and Pradaxa PCP Dr. Chava Goldman at [place].? GI specialist Griselda Mejia at [facility]. I have utilized all available immediate resources to obtain, update, or review the patient's current medications. I confirmed that the patient's advanced care plan is present, Code status is documented and/or surrogate decision maker is listed in the patient's medical record. Time Spent With Patient Critical Care time: I spent a total of [] minutes of critical care time on this patient's care today; this time is exclusive of procedural time. Scores GCS Stephen coma scale eye opening: Spontaneous Kirklin coma scale verbal response: Orientated Kirklin coma scale motor response: Obey commands Stephen coma scale total score: 15 SOFA PaO2/FIO2: >=400 mmHg Platelets: >= 150 Bilirubin: < 1.2 mg/dL Hypotension: MAP >= 70 mmHg Kirklin Coma Scale: 15 Renal: < 1.2 mg/dL SOFA Score: 0
--- NOTE | 2021-03-07 03:33 | PC.NURSE ---
Addendum entered by Jazz Nash R.N. 03/07/21 04:03: arrived to floor at 0345 via w/c. patient is alert, withdrawn. assisted to bed, slightly unsteady on feet. jaundiced skin, reports pain 6/10 to left abdomen. reports he had vegetable soup earlier for dinner and ended up w/ abd pain and emesis. tele box applied, spo2 97% RA. pulse is 106 via [employer] *vital sign cart. attempted to call lab to ensure his urgently ordered labs are added on to previous blood draw. amylase, a1c, lactate, mag, bnp, blood cultures stat, hepatic liver panel, lipid panel, protime, bmp all expected to be added/drawn jennifer. no answer in the lab, will attempt again. IVF ordered, flagyl IV, cefepime IV. will proceed w/ admission. patient oriented to the room, bathroom, call light. call light w/in reach. bed alarm is on. Original Note: 314: call for report from ANIKET Hooper. this RN requested a few minutes to look up his info, and conferred w/ charge auditor re: patient's current status of afib RVR, recent cardioversion, pulse still tachy at 111, b/p hypotensive 90/50. type 1 juvenile diabetic, seems frail on reports. call to Elo and reviewed patient's chart and status. urgent labs that are ordered (magnesium, lactate) will be added on to previously drawn bloodwork from ED. 033: call back to ROMAN Hooper RN. report received, patient has been stable in their assessments, currently he is asleep. he had zero emesis since arriving to ED. severely dehydrated at 1900 when he walked into ED. received a total of 3 NS boluses, and is now on his 4th bag at 100/hour. Afib RVR is not new, has a hx of this. was cardioverted around 120am, and went from 135 pulse to 108-111. takes cardiac medications and is well known to staff. 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 awaiting arrival to room 207. tele box ready, room prepared. will be an observation patient.
[2021-03-07 04:10] LABS: COVID19 - ADMIT (NP swab/PCR) Negative (Negative)
[2021-03-07] MEDS: ONDANSETRON 4 MG/2 ML INJ IV ×3 (04:33→21:50)
[2021-03-07 04:38] LABS: Amylase 141 U/L (30-110); Lactate Dehydrogenase 662 U/L (313-618)
[2021-03-07] MEDS: HYDROMORPHONE 1 MG INJ IV ×2 (04:38→19:35)
[2021-03-07 04:39] LABS: Magnesium 2.5 mg/dL (1.6-2.3)
[2021-03-07 04:48] LABS: NT-proBNP (BNP-Adult 18+) 279 pg/mL (<125)
[2021-03-07 04:55] LABS: Hemoglobin A1C% w Est Avg Glu 7.1 % (4.0-6.0)
[2021-03-07] MEDS: SODIUM CHLORIDE 0.9% 1,000 ML 100 ML IV ×2 (05:03→16:05)
--- NOTE | 2021-03-07 05:09 | PC.NURSE ---
Addendum entered by Jazz Nash R.N. 03/07/21 07:29: 0645: continues w/ IVF, tele is ST 106, patient reports pain is better. as long as i dont move, im ok. BC drawn, IV abx/antifungal infused per order. patient's significant other here, she and patient report today was a large Alfredo was supposed to eulogize. patient began crying as he remembered his friend and wished he could be there. call to emeka re: patient states he aspirates frequently. new order for NPO. report to nolan Edwards RN. Original Note: call to lab to inquire about stat bc's - spoke w/ kali, he will expedite patient's test, as abx and anti-fungal IV med cannot be admin until BC are drawn. Emeka aware of above. patient update: he is comfortable, resting, appears to be w/o pain/discomfort. Zofran IV given, sips of quincy tristin. tolerating RA, HOB up, warm blankets provided. continues on 4th bag of IVF.
[2021-03-07 06:04] LABS: Add Manual Diff / Slide Review NO; Basophils Absolute Auto 0 /uL (0-100); Basophils Percent Auto 0.2 % (0-2); Eosinophils Absolute Auto 0 /uL (0-450); Eosinophils Percent Auto 0.1 % (2-4); Hematocrit 37.4 % (41-53); Hemoglobin 12.6 g/dL (13.5-17.5); Lymphocytes Absolute Auto 400 /uL (1100-4500); Lymphocytes Percent Auto 4.1 % (25-40); Mean Corpuscular HGB Conc 33.5 % (30-36); Mean Corpuscular Hemoglobin 29.8 PG (26-34); Mean Corpuscular Volume 88.9 fL (80-100); Monocytes Absolute Auto 400 /uL (0-900); Monocytes Percent Auto 4.1 % (3-14); Neutrophils Absolute Auto 8400 /uL (1500-7000); Neutrophils Percent Auto 91.5 % (50-75); Platelet Count 231 X10^3/uL (150-400); Red Blood Cell Count 4.21 X10^6/uL (4.5-5.9); Red Cell Distribution Width 14.2 % (11.6-14.8); White Blood Cell Count 9.2 X10^3/uL (4.5-11.0)
[2021-03-07 06:14] LABS: INR 1.4 (0.9-1.3); Prothrombin Time 15.7 SECONDS (10.1-12.7)
[2021-03-07 06:18] LABS: Alanine Aminotransferase 15 IU/L (<50); Albumin 3.6 g/dL (3.5-5.0); Albumin Globulin Ratio 1.6 (1.0-2.8); Alkaline Phosphatase 53 U/L (38-126); Aspartate Aminotransferase 19 IU/L (17-59); BUN Creatinine Ratio 14.9 (6-22); Bilirubin Total 0.5 mg/dL (0.2-1.3); Bilirubin Unconjugated 0.6 mg/dL (0.0-1.1); Blood Urea Nitrogen 11 mg/dL (9-20); Calcium 7.8 mg/dL (8.4-10.2); Carbon Dioxide 24 mmol/L (22-32); Chloride 110 mmol/L (98-107); Cholesterol 104 mg/dL (140-199); Estimated Glomerular Filt Rate > 60.0 mL/min (>60); Globulin 2.2 g/dL (1.7-4.1); Glucose 153 mg/dL (80-110); HDL Cholesterol 25 mg/dL (40-60); HEMOLYSIS < 15 (0-50); LDL Cholesterol Calculated 65 mg/dL (<100); Lactate (Lactic Acid) 1.2 mmol/L (0.7-2.1); Potassium 4.6 mmol/L (3.4-5.1); Sodium 140 mmol/L (137-145); Total Protein 5.8 g/dL (6.3-8.2); Triglycerides 72 mg/dL (35-150)
[2021-03-07] MEDS: CEFEPIME 2 GM in SODIUM CHLORIDE 0.9% 100 ML 200 ML IV (06:24)
[2021-03-07] MEDS: metroNIDAZOLE 500 MG/100 ML PIGGYBACK 100 MG IV (06:43)
[2021-03-07] MEDS: ENOXAPARIN 40 MG/0.4 ML SYRINGE SUBCUT (08:57)
[2021-03-07] MEDS: HYDROMORPHONE 0.5 MG INJ IV (08:58)
[2021-03-07] MEDS: PROMETHAZINE 25 MG SUPP PR (09:45)
--- NOTE | 2021-03-07 10:36 | CM.DANOTE ---
DCP: Case received, EMR reviewed and met with patient. Introduced self and role. Was able to obtain information regarding patient's baseline activity status prior to hospitalization. DCP assessment completed with information currently available. Patient is a 66 year old male who admitted early this morning to the care of the hospitalist team. PCP: Dr. Huang. Payer: confirmed: [facility] Ad[employer]age. Patient came to the hospital via private vehicle secondary to having increased abdominal pain. Patient was also stating that he was vomiting. Patient holds current diagnosis of Pancreatitis. Met with patient in his room. He was in bed, alert and oriented. He resides in [place], he is a . He is independent at his baseline. 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 Patient indicated, he was here at work, and the pain started, so I went to the ER. P: DCP to continue to follow. Patient should be able to go home when he is deemed medically stable. Catalina Pollack RN/Social Security Benefits Interviewer Discharge Planning/Care Management CM Discharge Assessment Start: 03/07/21 10:35 Freq: Status: Active Protocol: Document 03/07/21 10:35 (Rec: 03/07/21 10:36 [id number]) Discharge Planning Assessment Assigned Button Tacker Catalina Pollack RN/Social Security Benefits Interviewer Advance Directives? Yes Advance Directives on File Yes History Provided By Patient,Medical Record Prior Living Arrangements House Household Members friend(s) Type of transporation used prior to Drives own vehicle admit Willing to Return to Facility? Yes Independent with ADL's Yes Is patient alert and oriented? Yes Caregiver for Another No Comment has cane, does not currently use. Barriers to Discharge No Discharge Plan Home Transportation Arrangement Supportive local friends who can provide transport Referrals Initiated None needed Whiteboard Updated in Patient Room with Yes name and ext. # of Button Tacker Review Status In Process Next Review Type Continued Stay Review
--- NOTE | 2021-03-07 14:44 | DIET.CONS ---
Addendum entered by Jennifer Hercules 03/08/21 15:49: Pt avoids dietary fats, animal proteins, and high sugar foods at baseline secondary to exocrine pancreatic insufficiency which throws him into flare. Consideration to be made for starting pt on low-fat solid diet vs. clear liquid diet per ESP[employer] and [employer] guidelines (2020). Consider MCT oil as fat sources to reduce chance of fatty acid deficiency as it move directly into blood stream without needing bile or pancreatic enzymes. Original Note: Dietary Consultation Note Admission Date: 03/07/2021 02:47 Assessment: 66y M admitted for acute pancreatitis referred to nutrition for N/V. Pt reports eating vegetable soup Sunday 4pm (soy sausage, veggies, jalapenos) which has never bothered him before. By 6pm pt left work c emesis bag, vomited, almost filled bag. Pt took reglan without relief, took antiemetic suppository but had diarrhea before it dissolved. Pt came to ED for IV treatment and GI rest. Pt and this RD have worked together frequently, pt has managed to keep from being admitted to hospital for a year through good food awareness, tracking, and enzyme therapy. Pt able [place] and maintain weight through the use of soy proteins which doesn't cause him pain. Pt endorses increased stress lately. 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 Pts partner and fellow officer is at today, so not at bedside. Pt feeling worried about this episode as it hit him out of the blue. Ht: 177.8 cm Wt: 72.575 kg BMI: 22.9 Last BM: 03/07/21 (03/07/21 03:45) MNA: 8 Todd Score: 16 Diet: 03/06/21 19:20 NPO Diet Diet Modifications: NPO Type: Strict Labs: RBC 4.21 X10^6/uL (4.5-5.9) L 03/07/21 05:50 Hgb 12.6 g/dL (13.5-17.5) L 03/07/21 05:50 Hct 37.4 % (41-53) L 03/07/21 05:50 Creatinine 0.74 mg/dL (0.66-1.25) 03/07/21 05:50 Hemoglobin A1c 7.1 % (4.0-6.0) H 03/06/21 22:04 Lactate 1.2 mmol/L (0.7-2.1) 03/07/21 05:50 NT-Pro-B Natriuret Pep 279 pg/mL (<125) H 03/06/21 22:04 Interventions: 1. Pt with excellent insight into pancreatic flares, recc continued NPO until pt feeling confident to test POs. RD okays pt to bring protein drinks from home. EER: 1800kcals (25kcal/kg), 72g PRO (1g/kg) Monitoring/Evaluations: diet progression, need for specialized MNT secondary to specialized diet reccs. Electronically Signed by: Jennifer Hercules 03/07/21 14:44 Clinical Dietitian [address] [id number]
[2021-03-07 17:34] LABS: RBC Urine None Seen (0-5/HPF); WBC Urine None Seen (0-5/HPF)
[2021-03-07 17:35] LABS: Bacteria Urine None Seen; Culture Indicated Urine Cult Not Indicated
[2021-03-08] VITALS (14 sets, daily range): BP systolic 103–131; BP diastolic 56–66; PULSE 72–152; RESP 14–18; TEMP 36.5–37.4; O2SAT 92–97
[2021-03-08] MEDS: HYDROMORPHONE 1 MG INJ IV ×4 (01:34→22:53)
[2021-03-08] MEDS: SODIUM CHLORIDE 0.9% 1,000 ML 100 ML IV (01:38)
[2021-03-08] MEDS: HYDROMORPHONE 0.5 MG INJ IV ×2 (04:14→11:35)
[2021-03-08] MEDS: PROMETHAZINE 25 MG SUPP PR ×2 (04:15→23:05)
[2021-03-08] MEDS: ONDANSETRON 4 MG/2 ML INJ IV ×2 (07:56→18:41)
[2021-03-08] MEDS: ENOXAPARIN 40 MG/0.4 ML SYRINGE SUBCUT (08:00)
[2021-03-08] MEDS: PANTOPRAZOLE 40 MG VIAL IV (09:11)
[2021-03-08] MEDS: DEXTROSE 5%-0.9% NS 1,000 ML 100 ML IV (11:29)
[2021-03-08] MEDS: LIPASE/PROTEASE/AMYLASE 5/17/24 CAP PO (11:39)
[2021-03-08] MEDS: ONDANSETRON 8 MG in SODIUM CHLORIDE 0.9% 50 ML 216 ML IV (11:40)
[2021-03-08] MEDS: ACETAMINOPHEN 325 MG TABLET 650 MG PO (13:03)
[2021-03-08] MEDS: LIDOCAINE PATCH 1 EACH ADH..PATCH TOP (14:13)
[2021-03-08] MEDS: LORazepam 2 MG/ML INJ 1 MG IV (14:48)
--- NOTE | 2021-03-08 14:48 | PM.PN.1 ---
Subjective Subjective Date Patient Seen: 03/08/21 Interval history: 66 y/o male with known chronic pancreatitis admitted with acute on chronic pancreatitis. He reports sore throat, continued abdominal pain, and nausea. He also has back pain and requests a lidoderm patch for pain. Nausea continues despite zofran scheduled. Patient has tried clear liquids but does not feel like he is making much progress. Exam Vital Signs (past 8 hours): - 03/08/21 07:30 03/08/21 08:00 03/08/21 14:00 Temperature 97.7 F Pulse Rate 95 H Respiratory Rate 18 Blood Pressure 117/63 Pulse Oximetry 95 94 95 03/08/21 14:20 Temperature 98.3 F Pulse Rate 106 H Respiratory Rate 18 Blood Pressure 131/66 Pulse Oximetry 95 Oxygen Delivery Method Room Air Oxygen Flow Rate 0 Narrative Exam Narrative: Ill appearing male lying in bed Resp Other: Lungs: clear to auscultation Cardio Other: CV: RRR nl Sl S2 2/6 Reji GI Other: Abdomen soft, tender in the midepigastric area, no palpable masses, no rebound tenderness Extrem Other: No edema Objective Labs Result Diagrams: 03/07/21 05:50 03/07/21 05:50 Labs: Laboratory Results - last 24 hr 03/07/21 14:50 Urine RBC None seen Urine WBC None seen Urine Bacteria None seen Ur Culture Indicated? Cult not indicated PFSH Medical History Acute dehydration Campylobacter enteritis Enteritis, enteropathogenic E. coli Exocrine pancreatic insufficiency Gastroenteritis GERD (gastroesophageal reflux disease) HTN (hypertension) Hyperlipidemia Insulin dependent diabetes mellitus with complications Narcolepsy Nausea vomiting and diarrhea Pancreatitis Paroxysmal atrial fibrillation Paroxysmal atrial fibrillation Peripheral vascular disease Psoriasis Surgical History H/O exploratory laparotomy History of femoropopliteal bypass Hx of biopsy Family History Father Colon cancer Mother Narcolepsy Grandmother Narcolepsy Social History household members: friend(s) Smoking Status: Former smoker Assessment & Plan Assessment & Plan narrative: Acute pancreatitis, acute on chronic, secondary to Chronic pancreatic insufficiency with secondary insulin-dependent type 1 diabetes mellitus, present on admission.-stable Differential diagnosis includes chronic pancreatitis (lipase normal as to be expected) -Do to WBC, Neut, tachycardia, hypotension, and complex hx-will cover patient for intraabd infection Cefepine 2 gram Q12hrs/Metronidazole 500mg Q8hrs. -- CT of abdomen and pelvis demonstrated no imaging that would explain patient's presentation, liquid stool contents in the colon, suspicious for diarrhea. positive diverticulosis.? No diverticulitis demonstrated.? no free fluid. Question of wall thickening involving the sigmoid colon.? -This could be further evaluated with colonoscopy if not recently performed. Mildly prominent loop of small bowel in the mid abdomen.? However, the other loops of bowel are normal in caliber.? No transition point to suggest bowel obstruction. No colonoscopy on admission? - -Previous admissions for colitis and pancreatic issues 04/29/2019, 08/25/2019, 03/27/2020 -Continue antiemetics and pain management. -rehydration:? Patient received 3L/NS in the emergency room, continue rehydration NS at 100 cc/HR- monitor for fluid overload -patient NPO-initiate trial clear liquids once patient has sustained absence nausea/vomiting, the goal to resolve in 24-48 hours, once patient has completed a trial of clear liquids may advance to a low-fiber diet as tolerated -monitor hematocrit and BUN -currently hematocrit 46.2%, BUN 9 -resume Creon -Utilizing low-dose correctional insulin per patients personal protocol.? Patient only uses daytime sliding scale for glucose control. -patient was hypoglycemic last evening, hold further insulin -will start D5 NS -discontinue IV antibiotics -will add IV Ativan for nausea -will advance diet as tolerated ?2. Paroxysmal atrial fibrillation, acute on chronic, present on admission - EKG initially demonstrated atrial flutter with variable AV block, nonspecific T-wave abnormalities rate 141.? Again patient was successfully cardioverted in the ED and is currently in tachycardiac sinus rhythm -Hold metoprolol tartrate 50 mg twice daily and Pradaxa 150 mg twice daily.? Until patient can tolerate oral food and fluids, also hold metoprolol for blood pressure SBP>100 or DBP> 80 -will resume metoprolol 3.?Hypertension, essential, chronic, present on admission. -monitor patient on [facility]- pt continues to be hypotensive 90/54- will monitor for septic shock -Hold lisinopril 20 mg daily 4.?Hyperlipidemia and peripheral vascular disease, chronic, present on admission.? Stable. -Hold/to continue once tolerating orals clopidogrel 75 mg daily. 5.?GERD, chronic,? present on admission.? Stable. -Hold pantoprazole 40 mg daily. ? Time Spent With Patient Critical Care time: I spent a total of [] minutes of critical care time on this patient's care today; this time is exclusive of procedural time. Quality VTE Deep Vein Thrombosis/Pulmonary Embolism Present on Admission: No
[2021-03-08] MEDS: SODIUM CHLORIDE 0.9% 500 ML 1000 ML IV (20:05)
[2021-03-08] MEDS: METOPROLOL ER 25 MG TABLET 12.5 MG PO (20:11)
[2021-03-08] MEDS: SODIUM CHLORIDE 0.9% 1,000 ML 200 ML IV ×2 (20:40→23:09)
[2021-03-08 21:11] LABS: Add Manual Diff / Slide Review NO; Basophils Absolute Auto 0 /uL (0-100); Basophils Percent Auto 0.5 % (0-2); Eosinophils Absolute Auto 100 /uL (0-450); Eosinophils Percent Auto 0.9 % (2-4); Hematocrit 37.1 % (41-53); Hemoglobin 12.6 g/dL (13.5-17.5); Lymphocytes Absolute Auto 700 /uL (1100-4500); Lymphocytes Percent Auto 10.5 % (25-40); Mean Corpuscular Hemoglobin 29.8 PG (26-34); Mean Corpuscular Volume 87.7 fL (80-100); Monocytes Absolute Auto 500 /uL (0-900); Monocytes Percent Auto 7.9 % (3-14); Neutrophils Absolute Auto 5400 /uL (1500-7000); Neutrophils Percent Auto 80.2 % (50-75); Platelet Count 193 X10^3/uL (150-400); Red Blood Cell Count 4.23 X10^6/uL (4.5-5.9); Red Cell Distribution Width 14.6 % (11.6-14.8); White Blood Cell Count 6.7 X10^3/uL (4.5-11.0)
[2021-03-08 21:25] LABS: BUN Creatinine Ratio 7.5 (6-22); Blood Urea Nitrogen 5 mg/dL (9-20); Carbon Dioxide 21 mmol/L (22-32); Chloride 111 mmol/L (98-107); Estimated Glomerular Filt Rate > 60.0 mL/min (>60); Glucose 86 mg/dL (80-110); HEMOLYSIS 32 (0-50); Lipase 30 U/L (23-300); Potassium 3.5 mmol/L (3.4-5.1); Sodium 139 mmol/L (137-145)
[2021-03-08 21:43] LABS: Magnesium 1.5 mg/dL (1.6-2.3)
[2021-03-08] MEDS: LIDOCAINE VISCOUS 2% 30 ML, MAG HYDROX/ALUMINUM/SIMETH SUS 30 ML, NYSTATIN SUSP 3,000,0... MM (22:56)
[2021-03-09] VITALS (10 sets, daily range): BP systolic 95–108; BP diastolic 50–65; PULSE 78–98; RESP 17–20; TEMP 37–37.6; O2SAT 93–96
[2021-03-09] MEDS: LORazepam 2 MG/ML INJ 1 MG IV ×2 (00:43→12:25)
[2021-03-09] MEDS: ONDANSETRON 8 MG in SODIUM CHLORIDE 0.9% 50 ML 216 ML IV (02:43)
[2021-03-09] MEDS: HYDROMORPHONE 1 MG INJ IV (02:44)
[2021-03-09] MEDS: SODIUM CHLORIDE 0.9% 1,000 ML 200 ML IV (04:44)
[2021-03-09] MEDS: DEXTROSE 50 % IN WATER 25 GM/50 ML SYRINGE IV (07:05)
[2021-03-09] MEDS: METOPROLOL ER 25 MG TABLET 12.5 MG PO (08:52)
[2021-03-09] MEDS: PANTOPRAZOLE 40 MG VIAL IV (08:52)
[2021-03-09] MEDS: ONDANSETRON 4 MG/2 ML INJ IV (08:53)
[2021-03-09] MEDS: ENOXAPARIN 40 MG/0.4 ML SYRINGE SUBCUT (08:53)
[2021-03-09] MEDS: LIDOCAINE PATCH 1 EACH ADH..PATCH TOP (08:53)
[2021-03-09] MEDS: LIPASE/PROTEASE/AMYLASE 5/17/24 CAP PO ×2 (08:55→18:57)
[2021-03-09] MEDS: ACETAMINOPHEN 325 MG TABLET 650 MG PO ×2 (09:20→21:19)
[2021-03-09] MEDS: LIDOCAINE VISCOUS 2% 30 ML, MAG HYDROX/ALUMINUM/SIMETH SUS 30 ML, NYSTATIN SUSP 3,000,0... MM (09:23)
[2021-03-09] MEDS: MAGNESIUM CHLORIDE 64 MG TABLET 128 MG PO (11:13)
[2021-03-09] MEDS: DEXTROSE 5%-0.9% NS 1,000 ML 84 ML IV ×2 (11:14→19:00)
--- NOTE | 2021-03-09 11:39 | CM.DPC ---
DCP Cont: Per MD, pt became tachy last night and continues to have difficulty tolerating diet and chronic pancreatitis has not resolved and pt not yet medically stable to d/c today. Per Sort Operations Supervisor, has worked closely with pt in outpt setting and pt very aware of his dietary limitations and needs and will adjust a diet recommendation for him to see if it will help. Plan: SW to follow for plan of d/c home with Sig Other POV when medically stable and any further identified discharge planning needs. RIMA Ramos
[2021-03-09] MEDS: METOPROLOL IR 25 MG TABLET PO (11:43)
[2021-03-09] MEDS: PROMETHAZINE 25 MG SUPP PR (11:47)
[2021-03-09] MEDS: OXYCODONE IR 10 MG TABLET PO (11:47)
[2021-03-09] MEDS: METOPROLOL TARTRATE 5 MG/5 ML INJ IV (12:46)
--- NOTE | 2021-03-09 13:18 | P.PN_ITS ---
Subjective Subjective Date Patient Seen: 03/09/21 Time Patient Seen: 13:18 Interval history: 66-year-old male admitted to the hospital with acute on chronic pancreatitis. The patient developed rapid atrial fibrillation today. He missed his dose of metoprolol. He was given the metoprolol. However his heart rate remained at 1:40 a.m.. He was given IV Lopressor and ultimately converted to sinus rhythm. Patient was then in sinus tachycardia. He feels poorly. He continues to complain of nausea. He has been afraid to eat. He has poor intake for the past few days. Exam Vital Signs (past 8 hours): - 03/09/21 06:00 03/09/21 08:40 03/09/21 08:52 Temperature 98.9 F Pulse Rate 87 Respiratory Rate 18 Blood Pressure 108/62 108/62 Pulse Oximetry 96 96 03/09/21 10:00 03/09/21 12:00 Temperature 99.7 F H Pulse Rate 88 Respiratory Rate 17 Blood Pressure 104/61 Pulse Oximetry 96 96 Oxygen Delivery Method Room Air Oxygen Flow Rate 0 Narrative Exam Narrative: Ill-appearing male lying in bed Resp Other: Lungs decreased breath sounds with occasional basilar crackles Cardio Other: Cardiac exam: Tachycardic regular rate and rhythm normal S1-S2 GI Other: Abdomen: Soft, mildly tender in the midepigastric area, no palpable masses, no rebound tenderness Extrem Other: No edema Objective Labs Result Diagrams: 03/09/21 13:19 03/08/21 21:08 Labs: Laboratory Results - last 24 hr 03/08/21 03/08/21 03/08/21 21:08 21:08 21:08 WBC 6.7 RBC 4.23 L Hgb 12.6 L Hct 37.1 L MCV 87.7 MCH 29.8 MCHC 34.0 RDW 14.6 Plt Count 193 Neut % (Auto) 80.2 H Lymph % (Auto) 10.5 L Bowman % (Auto) 7.9 Eos % (Auto) 0.9 L Baso % (Auto) 0.5 Neut # (Auto) 5400 Lymph # (Auto) 700 L Bowman # (Auto) 500 Eos # (Auto) 100 Baso # (Auto) 0 Sodium 139 Potassium 3.5 Chloride 111 H Carbon Dioxide 21 L BUN 5 L Creatinine 0.67 Estimated GFR > 60.0 BUN/Creatinine Ratio 7.5 Glucose 86 Calcium 8.0 L Magnesium 1.5 L Lipase 30 D [facility] Medical History Acute dehydration Campylobacter enteritis Enteritis, enteropathogenic E. coli Exocrine pancreatic insufficiency Gastroenteritis GERD (gastroesophageal reflux disease) HTN (hypertension) Hyperlipidemia Insulin dependent diabetes mellitus with complications Narcolepsy Nausea vomiting and diarrhea Pancreatitis Paroxysmal atrial fibrillation Paroxysmal atrial fibrillation Peripheral vascular disease Psoriasis Surgical History H/O exploratory laparotomy History of femoropopliteal bypass Hx of biopsy Family History Father Colon cancer Mother Narcolepsy Grandmother Narcolepsy Social History household members: friend(s) Smoking Status: Former smoker Assessment & Plan Assessment & Plan narrative: Acute pancreatitis, acute on chronic, secondary to Chronic pancreatic insufficiency with secondary insulin-dependent type 1 diabetes mellitus, present on admission.-stable --- CT of abdomen and pelvis demonstrated no imaging that would explain patient's presentation, liquid stool contents in the colon, suspicious for diarrhea. positive diverticulosis.? No diverticulitis demonstrated.? no free fluid. Question of wall thickening involving the sigmoid colon.? -This could be further evaluated with colonoscopy if not recently performed. Mildly prominent loop of small bowel in the mid abdomen.? However, the other loops of bowel are normal in caliber.? No transition point to suggest bowel obstruction.? No colonoscopy on admission? - -Previous admissions for colitis and pancreatic issues 04/29/2019, 08/25/2019, 03/27/2020 -Continue antiemetics and pain management. -rehydration:? Patient received 3L/NS in the emergency room, continue rehydration NS at 100 cc/HR- monitor for fluid overload -patient NPO-initiate trial clear liquids once patient has sustained absence nausea/vomiting, the goal to resolve in 24-48 hours, once patient has completed a trial of clear liquids may advance to a low-fiber diet as tolerated -monitor hematocrit and BUN -currently hematocrit 46.2%, BUN 9 -resume Creon --patient was hypoglycemic last evening, hold further insulin -will start D5 NS -discontinue IV antibiotics -will add IV Ativan for nausea -will advance diet as tolerated ?2. Paroxysmal atrial fibrillation, acute on chronic, present on admission - EKG initially demonstrated atrial flutter with variable AV block, nonspecific T-wave abnormalities rate 141.? Again patient was successfully cardioverted in [facility] ED and is currently in tachycardiac sinus rhythm -Hold metoprolol tartrate 50 mg twice daily and Pradaxa 150 mg twice daily.? Until patient can tolerate oral food and fluids, also hold metoprolol for blood pressure SBP>100 or DBP> 80 -will resume metoprolol -patient developed rapid AFib today, he require multiple doses of Lopressor. Will resume his metoprolol, continue Pradaxa -chest x-ray suggested early infiltrate, will check procalcitonin, will continue to monitor closely -will check troponins and proBNP, check cardiac echo 3.?Hypertension, essential, chronic, present on admission. -monitor patient on tele-med- pt continues to be hypotensive 90/54- will monitor for septic shock -Hold lisinopril 20 mg daily 4.?Hyperlipidemia and peripheral vascular disease, chronic, present on adm ission.? Stable. -Hold/to continue once tolerating orals clopidogrel 75 mg daily. 5.?GERD, chronic,? present on admission.? Stable. -Hold pantoprazole 40 mg daily. ? Time Spent With Patient Critical Care time: I spent a total of [] minutes of critical care time on this patient's care today; this time is exclusive of procedural time. Quality VTE Deep Vein Thrombosis/Pulmonary Embolism Present on Admission: No
--- NOTE | 2021-03-09 13:23 | DI.RAD.S_ITS ---
PROCEDURE: XR CHEST 1V INDICATIONS: Increased HR TECHNIQUE: One view of the chest was acquired. COMPARISON: [facility], , XR CHEST 1V, 03/26/2020, 15:39. FINDINGS: Surgical changes and devices: None. Lungs and pleura: Mild infiltrates in the left lung suspicious for developing pneumonia. No pleural effusions or pneumothorax. Mediastinum: Mediastinal contours appear normal. Heart size is normal. Bones and chest wall: No suspicious bony lesions. Overlying soft tissues appear unremarkable. IMPRESSION: Mild infiltrates in left lung suspicious for developing pneumonia. Dictated by: Manpreet Allen M.D. on 03/09/2021 at 13:50 Approved by: Manpreet Allen M.D. on 03/09/2021 at 13:51
[2021-03-09 13:34] LABS: Hematocrit 36.2 % (41-53); Hemoglobin 12.3 g/dL (13.5-17.5)
[2021-03-09 14:08] LABS: NT-proBNP (BNP-Adult 18+) 582 pg/mL (<125)
[2021-03-09 14:11] LABS: Troponin I < 0.012 ng/mL (0.01-0.034)
--- NOTE | 2021-03-09 15:02 | PC.NURSE ---
Pt has orders to transfer to ICU for rate control. Midline placed at 1220 and Ativan and IV Metoprolol were given. 1450 Midline pulled out. Left message for Rakel Mcghee to restart midline. Contacted Dr. Grimaldo to update. Pt tele currently afib with a rate of 96-107. Pt resting comfortably in bed.
--- NOTE | 2021-03-09 15:16 | DI.ECHO.S_ITS ---
[facility]---------+ [facility] +---------+ : : [address] [place] [address] : : : : [id number] : : : : Phone: [phone]+ Echocardiogram Report + + :Name: DARY STRAUSS Study Date: 03/09/2021 Height: 70 in : :[facility] ReadingLocation: Weight: 160 lb : : Gender: Male BSA: 1.9 m2 : :: 1955 Age: 66 yrs BP: 108/62 mmHg: :Reason For Study: ATRIAL FIBRILLATION : :Ordering Physician: ERNIE, : :[place] Performed By: Vivian Ac : :Referring: FEL[place]IA KLEIN : + + Interpretation Summary The left ventricle is normal in size. The ejection fraction is estimated to be 45-50%. There appears to be hypokinesis of basal to mid inferior wall extending into the inferior lateral wall. New wall motion abnormalities. Compared to the prior exam, the left ventricular function is reduced. The right ventricle is normal in size and function. There is mild to moderate mitral regurgitation. Compared to the prior echo study, there has been an increase in the severity of mitral regurgitation. There is mild to moderate tricuspid regurgitation.Compared to the prior echo exam, there has been an increase in TR severity. The right ventricular systolic pressure is estimated to be at least 34 mmHg based on an estimated right atrial pressure of 8 mm Hg. The aortic root is mildly dilated. Procedure: A two-dimensional transthoracic echocardiogram with color flow and Doppler was performed. The study quality was technically adequate. Comparison is made with the echocardiogram of 08/27/2015. The patient was in sinus rhythm with heart rates between 75-95 bpm during the exam. Left Ventricle: The left ventricle is normal in size. Proximal septal thickening is noted. There is no echo evidence for significant left ventricular outflow tract obstruction. There is no thrombus. The ejection fraction is estimated to be 45-50%. Compared to the prior exam, the left ventricular function is reduced. There appears to be hypokinesis of basal to mid inferior wall extending into the inferior lateral wall. New wall motion abnormalities. No significant diastolic dysfunction. Right Ventricle: The right ventricle is normal in size and function. Atria: The left atrium is severely dilated. The left atrium has significantly increased in size since the prior echo exam. Right atrial size is normal. There is no Doppler evidence for an interatrial shunt. Mitral Valve: There is mild mitral annular calcification. The mitral valve leaflets are slightly calcified. There is mild to moderate mitral regurgitation. Compared to the prior echo study, there has been an increase in the severity of mitral regurgitation. Aortic Valve: The aortic valve is trileaflet. The aortic valve opens well. There is no aortic valve stenosis. No aortic regurgitation is present. Tricuspid Valve: Tricuspid leaflets are thickened. There is mild to moderate tricuspid regurgitation. The right ventricular systolic pressure is estimated to be at least 34 mmHg based on an estimated right atrial pressure of 8 mm Hg. Compared to the prior echo exam, there has been an increase in TR severity. Pulmonic Valve: The pulmonic valve is not well seen, but is grossly normal. There is no pulmonic valvular regurgitation. Great Vessels: The aortic root is mildly dilated. The ascending aorta is at the upper limits of normal in size. The IVC is of normal diameter and collapses less than 50% with a sniff. This suggests a right atrial pressure of 8 mm Hg. Pericardium/ Pleura There is no pericardial effusion. There is no pleural effusion. MMode/2D Measurements & Calculations LVIDd: 4.5 cm LVOT diam: 2.3 cm LVIDs: 3.3 cm Ao root diam: 4.1 cm FS: 25.6 % asc Aorta Diam: 3.5 cm IVSd: 1.0 cm Ao Arch Diam (Prox Trans): 2.1 cm LVPWd: 0.96 cm LV melendez. diameter/BSA (cm/m^2): 2.4 LV sys. diameter/BSA (cm/m^2): 1.8 LA A2 area: 28.2 cm2 RA long axis: 5.2 cm LA A4 area: 21.7 cm2 RA area: 16.6 cm2 LA length (vol): 5.7 cm RA vol: 45.3 ml LA vol: 90.2 ml RA : 23.8 ml/m2 LA vol index: 47.5 ml/m2 IVC diam: 2.0 cm RVD1 (basal): 4.1 cm TAPSE: 1.7 cm Doppler Measurements & Calculations Ao V2 max: 81.6 cm/sec LVOT Max Sharif: 61.8 cm/sec Ao V2 mean: 58.8 cm/sec LV V1 max P.5 mmHg Ao max P.7 mmHg LV V1 VTI: 10.5 cm Ao mean P.5 mmHg BHARAT(I,D): 2.9 cm2 Ao V2 VTI: 15.0 cm BHARAT(V,D): 3.1 cm2 sev ratio: 0.70 BHARAT indexed to BSA (cm^2/m^2): 1.5 MV E max sharif: 83.5 cm/sec TR max sharif: 256.9 cm/sec MV A max sharif: 42.7 cm/sec TR max P.4 mmHg MV E/A: 2.0 PA V2 max: 64.5 cm/sec Med Peak E' Sharif: 8.1 cm/sec PA V2 mean: 41.5 cm/sec E/E' med: 10.3 PA mean P.81 mmHg Lat Peak E' Sharif: 8.6 cm/sec PA pr(Accel): 34.5 mmHg E/E' lat: 9.7 E/e' average: 10.0 MV dec time: 0.18 sec SV(LVOT): 43.6 ml Reading Physician:05:01 PM
[2021-03-09] MEDS: ONDANSETRON 4 MG ODT 8 MG SL (17:14)
[2021-03-09 18:20] LABS: Procalcitonin 23.9 ng/mL (<0.5)
[2021-03-09] MEDS: LORazepam 0.5 MG TABLET PO (18:54)
--- NOTE | 2021-03-09 20:50 | DI.CT.S_ITS ---
PROCEDURE: CT ANGIO CHEST ABDOMEN PELVIS INDICATIONS: chest pain, dissection, also abdominal pain, colitis TECHNIQUE: Precontrast 5 mm thick sections acquired from the lung apices to the iliac crests. After the administration of intravenous contrast, 2.5 mm thick sections again acquired from the lung apices to the iliac crests. Maximum intensity projection (MIP) oblique sagittal and coronal reformats were then acquired. For radiation dose reduction, the following was used: automated exposure control. COMPARISON: [facility], CT, CT ABDOMEN PELVIS W CON, 03/26/2020, 16:45. [facility], CT, CT ABDOMEN PELVIS W CON, 03/06/2021, 23:51. FINDINGS: Image quality: Excellent. AORTA and its attachments: The thoracic aorta is of normal caliber without aneurysm or dissection. There is normal variant 4 vessel arch anatomy in which the left vertebral artery arises independently off the thoracic arch. Great vessels are widely patent. Celiac, SMA, 2 left renal arteries, and right renal artery are widely patent. Atherosclerotic calcifications in the abdominal aorta and iliac arteries. No aneurysms or significant stenosis identified. CHEST: Lungs and pleura: No pulmonary emboli. Small bilateral pleural effusions with minimal bibasilar atelectasis. Central and peripheral airways are patent and normal in caliber. Mediastinum: Mild cardiomegaly with biatrial enlargement. Mild coronary artery calcifications. Small pericardial effusions. No mediastinal or hilar adenopathy by size criteria. Central pulmonary arteries are normal in size. Mild upper thoracic esophageal thickening. No hiatal hernias. Bones and chest wall: No axillary adenopathy by size criteria. Thyroid gland contains multiple probable small left thyroid nodules. No suspicious bony lesions. No vertebral body compression fractures. ABDOMEN: Vasculature: Celiac trunk and mesenteric arteries are patent. Renal arteries are also patent. Solid organs: Liver has subtle surface nodularity suggesting possible cirrhotic change. No suspicious liver masses.. Gallbladder is distended. There is probable wall thickening with questionable wall edema. . Biliary system is non dilated. Pancreas enhances normally. Spleen is normal in size and enhancement. No adrenal nodules. Both kidneys are normal in size and enhancement, without hydronephrosis. Peritoneum and bowel: No free fluid or air. Diverticulosis without evidence of diverticulitis. Question circumferential lesion of the proximal sigmoid. Consider possible adenocarcinoma of the sigmoid. Nodes and vessels: No retroperitoneal or mesenteric adenopathy by size criteria. Inferior vena cava is normal in morphology. Retroaortic left renal vein. Miscellaneous: No ventral hernias. PELVIS: Genitourinary: Bladder wall thickness is normal. Miscellaneous: No inguinal hernias or adenopathy. No ventral hernias. Bones: No suspicious bony lesions. No vertebral body compression fractures. Lumbar degenerative change. IMPRESSION: 1. Normal thoracic and abdominal aorta with no evidence of aneurysm or dissection. 2. Cardiomegaly. 3. Mild coronary artery calcifications. 4. Mild upper thoracic esophageal wall thickening. Question upper thoracic esophagitis. 5. Probable cirrhotic change. 6. Distended gallbladder with probable wall thickening and possible wall edema. If suspect acute cholecystitis, consider right upper quadrant ultrasound. 7. Small bilateral pleural effusions with minimal bibasilar atelectasis. 8. Question circumferential lesion of the proximal sigmoid. Recommend colonoscopy to exclude sigmoid adenocarcinoma. Comment: Findings were discussed with Dr. Grimaldo on 03/10/2021 at 0806 hours Dictated by: Timo Cooper M.D. on 03/10/2021 at 7:45 Approved by: Timo Cooper M.D. on 03/10/2021 at 8:08
[2021-03-09] MEDS: DABIGATRAN 75 MG CAPSULE 150 MG PO (21:19)
[2021-03-09] MEDS: PRAVASTATIN 20 MG TABLET 80 MG PO (21:19)
[2021-03-09] MEDS: METOPROLOL IR 25 MG TABLET 12.5 MG PO (21:20)
[2021-03-09 21:58] LABS: Lactate (Lactic Acid) 1.6 mmol/L (0.7-2.1)
[2021-03-09 22:00] LABS: Alanine Aminotransferase 12 IU/L (<50); Albumin Globulin Ratio 1.3 (1.0-2.8); Alkaline Phosphatase 33 U/L (38-126); Aspartate Aminotransferase 23 IU/L (17-59); BUN Creatinine Ratio 7.7 (6-22); Bilirubin Total 0.6 mg/dL (0.2-1.3); Blood Urea Nitrogen 5 mg/dL (9-20); Calcium 7.9 mg/dL (8.4-10.2); Carbon Dioxide 23 mmol/L (22-32); Chloride 111 mmol/L (98-107); Estimated Glomerular Filt Rate > 60.0 mL/min (>60); Globulin 2.4 g/dL (1.7-4.1); Glucose 212 mg/dL (80-110); HEMOLYSIS 54 (0-50); Magnesium 1.5 mg/dL (1.6-2.3); Potassium 3.4 mmol/L (3.4-5.1); Sodium 138 mmol/L (137-145); Total Protein 5.4 g/dL (6.3-8.2)
[2021-03-09 22:11] LABS: Troponin I < 0.012 ng/mL (0.01-0.034)
[2021-03-09] MEDS: INSULIN LISPRO 100 UNIT/ML 3ML VIAL SUBCUT (22:18)
[2021-03-09] MEDS: MAGNESIUM SULFATE 4 GM/100 ML PIGGYBACK IV (23:49)
[2021-03-10] VITALS (12 sets, daily range): BP systolic 92–114; BP diastolic 56–73; PULSE 71–76; RESP 17–19; TEMP 36.2–36.9; O2SAT 93–98
[2021-03-10] MEDS: diphenhydrAMINE 50 MG/ML VIAL IV (01:21)
[2021-03-10] MEDS: PANTOPRAZOLE DR 40 MG TABLET PO (06:13)
[2021-03-10 06:29] LABS: Add Manual Diff / Slide Review NO; Basophils Absolute Auto 0 /uL (0-100); Basophils Percent Auto 0.4 % (0-2); Eosinophils Absolute Auto 0 /uL (0-450); Eosinophils Percent Auto 0.2 % (2-4); Hematocrit 34.5 % (41-53); Hemoglobin 11.7 g/dL (13.5-17.5); Lymphocytes Absolute Auto 300 /uL (1100-4500); Lymphocytes Percent Auto 9.9 % (25-40); Mean Corpuscular Volume 88.4 fL (80-100); Monocytes Absolute Auto 100 /uL (0-900); Neutrophils Absolute Auto 2200 /uL (1500-7000); Neutrophils Percent Auto 87.5 % (50-75); Platelet Count 193 X10^3/uL (150-400); Red Blood Cell Count 3.91 X10^6/uL (4.5-5.9); Red Cell Distribution Width 14.1 % (11.6-14.8); White Blood Cell Count 2.6 X10^3/uL (4.5-11.0)
[2021-03-10 06:39] LABS: Alanine Aminotransferase 10 IU/L (<50); Albumin 3.3 g/dL (3.5-5.0); Albumin Globulin Ratio 1.4 (1.0-2.8); Alkaline Phosphatase 49 U/L (38-126); Aspartate Aminotransferase 27 IU/L (17-59); Bilirubin Total 0.4 mg/dL (0.2-1.3); Blood Urea Nitrogen 6 mg/dL (9-20); Calcium 8.1 mg/dL (8.4-10.2); Carbon Dioxide 26 mmol/L (22-32); Chloride 110 mmol/L (98-107); Estimated Glomerular Filt Rate > 60.0 mL/min (>60); Globulin 2.4 g/dL (1.7-4.1); Glucose 218 mg/dL (80-110); HEMOLYSIS < 15 (0-50); Potassium 3.7 mmol/L (3.4-5.1); Sodium 140 mmol/L (137-145); Total Protein 5.7 g/dL (6.3-8.2)
[2021-03-10] MEDS: ONDANSETRON 4 MG/2 ML INJ IV ×3 (08:36→16:56)
[2021-03-10] MEDS: INSULIN LISPRO 100 UNIT/ML 3ML VIAL SUBCUT (08:36)
[2021-03-10] MEDS: FLUTICASONE 120 SPRAY/16 GM SPRAY.SUSP NASAL (08:36)
[2021-03-10] MEDS: CLOPIDOGREL 75 MG TABLET PO (08:37)
[2021-03-10] MEDS: DABIGATRAN 75 MG CAPSULE 150 MG PO (08:37)
[2021-03-10] MEDS: LIDOCAINE PATCH 1 EACH ADH..PATCH TOP (08:37)
[2021-03-10] MEDS: METOPROLOL IR 25 MG TABLET 12.5 MG PO ×2 (08:37→21:08)
[2021-03-10] MEDS: LIPASE/PROTEASE/AMYLASE 5/17/24 CAP 5 CAP PO (08:44)
[2021-03-10] MEDS: DEXTROSE 5%-0.9% NS 1,000 ML 84 ML IV ×2 (09:24→22:25)
[2021-03-10] MEDS: LORazepam 0.5 MG TABLET PO (09:26)
[2021-03-10] MEDS: OXYCODONE IR 10 MG TABLET PO ×2 (10:17→14:10)
--- NOTE | 2021-03-10 10:31 | DI.US.S_ITS ---
PROCEDURE: US ABDOMEN LIMITED INDICATIONS: r/o cholecystitis TECHNIQUE: Real-time focused scanning was performed of the abdomen, with image documentation. COMPARISON: [facility], CT, CT ANGIO CHEST ABDOMEN PELVIS, 03/10/2021, 2:12. [facility], US, US ABDOMEN LIMITED, 04/28/2019, 17:33. FINDINGS: The liver is borderline in size demonstrates mildly prominent hepatic veins. The gallbladder is distended measuring 8.3 x 5.5 x 4.2 cm. The gallbladder wall is thickened measuring 3 mm. Trace pericholecystic fluid is present. Sonographic Gonzalez sign is positive. No gallstones or gallbladder sludge is seen. No intrahepatic biliary ductal dilatation. The extrahepatic bile ducts are prominent, with the common hepatic duct measuring 7 mm in diameter in the common bile duct measuring 8 mm. The pancreas is not well visualized, but the imaged portions demonstrate no significant abnormality. Incidental note is made of small bilateral pleural effusions. IMPRESSION: 1. Distended gallbladder with gallbladder wall thickening, pericholecystic fluid, and positive sonographic Gonzalez sign without gallstones, suspicious for acalculous cholecystitis. Recommend correlation with clinical and laboratory findings. 2. Mild prominence of the extrahepatic bile ducts is nonspecific. No radiopaque filling defect is seen within the bile ducts on the CT performed earlier the same day. No intrahepatic biliary ductal dilatation. Recommend correlation with laboratory values to exclude biliary obstruction. 3. Small bilateral pleural effusions. Dictated by: Branden Reyna M.D. on 03/10/2021 at 17:10 Approved by: Branden Reyna M.D. on 03/10/2021 at 17:17
[2021-03-10] MEDS: diphenhydrAMINE 50 MG/ML VIAL 25 MG IV ×2 (12:19→20:55)
--- NOTE | 2021-03-10 16:15 | DI.NM.S_ITS ---
PROCEDURE: NM HIDA WITH CCK PHARMACEUTICAL: 5.5 mCi Tc-99m mebrofenin IV; 1.5 mcg CCK IV. INDICATIONS: r/o cholecystitis TECHNIQUE: Following intravenous administration of Tc-99m mebrofenin, sequential anterior abdominal images were obtained. To evaluate the contractile response of the gallbladder in response to Cholecystokinin (CCK), sincalide (0.02 ?g/kg) was administered by slow intravenous infusion approximately 60 minutes after the administration of the radiopharmaceutical. Sequential imaging was continued for 30 minutes after the start of CCK infusion. Gallbladder ejection fraction was calculated. COMPARISON: [facility], ABDOMEN LIMITED, 03/10/2021, 15:32. FINDINGS: Biliary scan: There is normal tracer uptake and excretion by the liver. There is normal visualization of the intrahepatic ducts, common bile duct, and gallbladder. There is normal tracer transit into the duodenum. CCK stimulation: There is diminished contractile response of the gallbladder to CCK infusion. The calculated gallbladder ejection fraction is 29%; normal values are above 35%. It has been shown that any patient abdominal pain after CCK administration is related to the rate of CCK injection, rather than to any underlying gallbladder disease (Clinical Nuclear Medicine 2012; 37: 63-70. Journal of Nuclear Medicine 2014; 55: 1-9). IMPRESSION: Abnormal low gallbladder ejection fraction. Finding is nonspecific but can be associated with chronic cholecystitis or biliary dyskinesia. Dictated by: Nazanin Penny MD, PhD on 03/11/2021 at 14:48 Approved by: Nazanin Penny MD, PhD on 03/11/2021 at 14:50
[2021-03-10] MEDS: HYDROMORPHONE 1 MG INJ IV ×2 (16:56→20:59)
--- NOTE | 2021-03-10 17:02 | PM.PN.1 ---
Subjective Subjective Date Patient Seen: 03/10/21 Interval history: 66-year-old man with chronic pancreatitis admitted to the hospital with abdominal pain nausea vomiting felt to be recurrent chronic pancreatitis. The patient developed rapid atrial fibrillation yesterday. After treatment with IV Lopressor that improved. He continued to have significant nausea vomiting abdominal pain. He underwent abdominal CT last evening which was suggestive of abnormality involving the gallbladder. Overall the patient looks better today. He continues to have some abdominal pain and nausea. He has had no further atrial fibrillation today. Exam Vital Signs (past 8 hours): - 03/10/21 12:00 Temperature 97.8 F Pulse Rate 72 Respiratory Rate 19 Blood Pressure 114/68 Pulse Oximetry 96 Oxygen Delivery Method Room Air Oxygen Flow Rate 0 Narrative Exam Narrative: Pleasant male who actually looks much better today lying in bed Resp Other: Lungs occasional scattered crackles at the bases Cardio Other: Cardiac exam: Regular rate rhythm normal S1-S2 GI Other: Abdomen: Soft, mildly tender in the midepigastric, right upper quadrant area, no palpable masses, no board-like rigidity, no rebound tenderness Extrem Other: no edema Objective Labs Result Diagrams: 03/10/21 06:05 03/10/21 06:05 Labs: Laboratory Results - last 24 hr 03/09/21 03/09/21 03/09/21 13:20 21:00 21:00 WBC RBC Hgb Hct MCV MCH MCHC RDW Plt Count Neut % (Auto) Lymph % (Auto) [place] % (Auto) Eos % (Auto) Baso % (Auto) Neut # (Auto) Lymph # (Auto) [place] # (Auto) Eos # (Auto) Baso # (Auto) Sodium 138 Potassium 3.4 Chloride 111 H Carbon Dioxide 23 BUN 5 L Creatinine 0.65 L Estimated GFR > 60.0 BUN/Creatinine Ratio 7.7 Glucose 212 H D Lactate 1.6 Calcium 7.9 L Magnesium 1.5 L Total Bilirubin 0.6 AST 23 ALT 12 Alkaline Phosphatase 33 L Troponin I < 0.012 Total Protein 5.4 L Albumin 3.0 L Globulin 2.4 Albumin/Globulin Ratio 1.3 Procalcitonin 23.9 H 03/10/21 03/10/21 06:05 06:05 WBC 2.6 L D RBC 3.91 L Hgb 11.7 L Hct 34.5 L MCV 88.4 MCH 30.0 MCHC 34.0 RDW 14.1 Plt Count 193 Neut % (Auto) 87.5 H Lymph % (Auto) 9.9 L [place] % (Auto) 2.0 L Eos % (Auto) 0.2 L Baso % (Auto) 0.4 Neut # (Auto) 2200 Lymph # (Auto) 300 L [place] # (Auto) 100 Eos # (Auto) 0 Baso # (Auto) 0 Sodium 140 Potassium 3.7 Chloride 110 H Carbon Dioxide 26 BUN 6 L Creatinine 0.67 Estimated GFR > 60.0 BUN/Creatinine Ratio 9.0 Glucose 218 H Lactate Calcium 8.1 L Magnesium Total Bilirubin 0.4 AST 27 ALT 10 Alkaline Phosphatase 49 Troponin I Total Protein 5.7 L Albumin 3.3 L Globulin 2.4 Albumin/Globulin Ratio 1.4 Procalcitonin [facility] Medical History Acute dehydration Campylobacter enteritis Enteritis, enteropathogenic E. coli Exocrine pancreatic insufficiency Gastroenteritis GERD (gastroesophageal reflux disease) HTN (hypertension) Hyperlipidemia Insulin dependent diabetes mellitus with complications Narcolepsy Nausea vomiting and diarrhea Pancreatitis Paroxysmal atrial fibrillation Paroxysmal atrial fibrillation Peripheral vascular disease Psoriasis Surgical History H/O exploratory laparotomy History of femoropopliteal bypass Hx of biopsy Family History Father Colon cancer Mother Narcolepsy Grandmother Narcolepsy Social History household members: friend(s) Smoking Status: Former smoker Assessment & Plan Assessment & Plan narrative: Acute pancreatitis, acute on chronic, secondary to Chronic pancreatic insufficiency with secondary insulin-dependent type 1 diabetes mellitus, present on admission.-stable --- CT of abdomen and pelvis demonstrated no imaging that would explain patient's presentation, liquid stool contents in the colon, suspicious for diarrhea. positive diverticulosis.? No diverticulitis demonstrated.? no free fluid. Question of wall thickening involving the sigmoid colon.? -This could be further evaluated with colonoscopy if not recently performed. Mildly prominent loop of small bowel in the mid abdomen.? However, the other loops of bowel are normal in caliber.? No transition point to suggest bowel obstruction.? No colonoscopy on admission? -repeat abdominal CT 03/09 reveals: Normal thoracic and abdominal aorta with no evidence of aneurysm or dissection. ?. Cardiomegaly.3. Mild coronary artery calcifications.?4. Mild upper thoracic esophageal wall thickening.? Question upper thoracic esophagitis.5. Probable cirrhotic change.6. Distended gallbladder with probable wall thickening and possible wall edema.? If suspect acute cholecystitis, consider right upper quadrant ultrasound.7. Small bilateral pleural effusions with minimal bibasilar atelectasis.?8. Question circumferential lesion of the proximal sigmoid.? Recommend colonoscopy to exclude sigmoid adenocarcinoma. -abdominal ultrasound pending, preliminary read suggest thickened gallbladder, with possible wall edema, -will obtain HIDA scan tomorrow -will continue IV fluids, NPO, start IV antibiotics for presumed acute cholecystitis -recommend outpatient EGD colonoscopy based on findings above -Previous admissions for colitis and pancreatic issues 04/29/2019, 08/25/2019, 03/27/2020 -Continue antiemetics and pain management. Will need to discontinue narcotics after 6:00 a.m. in anticipation for HIDA scan -rehydration:? Patient received 3L/NS in the emergency room, continue rehydration NS at 100 cc/HR- monitor for fluid overload -patient NPO-initiate trial clear liquids once patient has sustained absence nausea/vomiting, the goal to resolve in 24-48 hours, once patient has completed a trial of clear liquids may advance to a low-fiber diet as tolerated -monitor hematocrit and BUN -currently hematocrit 46.2%, BUN 9 --patient was hypoglycemic last evening, hold further insulin -will start D5 NS -discontinue IV antibiotics -will add IV Ativan for nausea -will advance diet as tolerated ?2. Paroxysmal atrial fibrillation, acute on chronic, present on admission - EKG initially demonstrated atrial flutter with variable AV block, nonspecific T-wave abnormalities rate 141.? Again patient was successfully cardioverted in the ED and is currently in tachycardiac sinus rhythm -Hold metoprolol tartrate 50 mg twice daily and Pradaxa 150 mg twice daily.? Until patient can tolerate oral food and fluids, also hold metoprolol for blood pressure SBP>100 or DBP> 80 -will resume metoprolol -patient developed rapid AFib today, he require multiple doses of Lopressor.? Will resume his metoprolol, hold Pradaxa in the event the patient requires surgical treatment -chest x-ray suggested early infiltrate, will check procalcitonin, will continue to monitor closely -will check troponins and proBNP, check cardiac echo 3.?Hypertension, essential, chronic, present on admission. -monitor patient on tele-med- pt continues to be hypotensive 90/54- will monitor for septic shock -Hold lisinopril 20 mg daily 4.?Hyperlipidemia and peripheral vascular disease, chronic, present on admission.? Stable. -Hold/to continue once tolerating orals clopidogrel 75 mg daily. 5.?GERD, chronic,? present on admission.? Stable. -Hold pantoprazole 40 mg daily. Time Spent With Patient Critical Care time: I spent a total of [] minutes of critical care time on this patient's care today; this time is exclusive of procedural time. Quality VTE Deep Vein Thrombosis/Pulmonary Embolism Present on Admission: No
[2021-03-10] MEDS: PIPERACILLIN/TAZO 3.375 GM in SODIUM CHLORIDE 0.9% 100 ML 25 ML IV (17:49)
[2021-03-10] MEDS: ONDANSETRON 4 MG ODT 8 MG SL (21:21)
[2021-03-10] MEDS: PRAVASTATIN 20 MG TABLET 80 MG PO (22:08)
[2021-03-10] MEDS: ACETAMINOPHEN 325 MG TABLET 650 MG PO (23:04)
[2021-03-11] VITALS (10 sets, daily range): BP systolic 93–125; BP diastolic 56–77; PULSE 55–73; RESP 16–18; TEMP 36.1–36.8; O2SAT 96–100
[2021-03-11] MEDS: HYDROMORPHONE 1 MG INJ IV ×3 (00:34→14:56)
[2021-03-11] MEDS: LORazepam 0.5 MG TABLET PO ×4 (00:40→19:33)
[2021-03-11] MEDS: PIPERACILLIN/TAZO 3.375 GM in SODIUM CHLORIDE 0.9% 100 ML 25 ML IV ×2 (01:27→10:00)
[2021-03-11] MEDS: PANTOPRAZOLE DR 40 MG TABLET PO (05:52)
[2021-03-11] MEDS: LIDOCAINE PATCH 1 EACH ADH..PATCH TOP (10:00)
[2021-03-11] MEDS: FLUTICASONE 120 SPRAY/16 GM SPRAY.SUSP NASAL (10:00)
[2021-03-11] MEDS: ACETAMINOPHEN 325 MG TABLET 650 MG PO (10:05)
[2021-03-11] MEDS: ONDANSETRON 4 MG/2 ML INJ IV ×2 (10:31→17:33)
[2021-03-11] MEDS: DEXTROSE 5%-0.9% NS 1,000 ML 84 ML IV (11:55)
--- NOTE | 2021-03-11 14:57 | DIET.PN1 ---
Dietary Progress Note Assessment: 66y M admitted for acute pancreatitis referred to nutrition for N/V. Completed HIDA scan today. Denies emesis today. Endorses nausea at baseline. Is asking for advancement of diet. After discussing with hospitalist, NPO status advanced to clears. Per notes, he can be advanced as tolerated. Considerations from last RD note: Consideration to be made for starting pt on low-fat solid diet vs. clear liquid diet per [employer] and [employer] guidelines (2020). Consider MCT oil as fat sources to reduce chance of fatty acid deficiency as it move directly into blood stream without needing bile or pancreatic enzymes. Ht: 177.8 cm Wt: 77.8 kg BMI: 22.9 Last BM: 03/07/21 (03/07/21 03:45) MNA: 8 Todd Score: 20 Diet: 03/10/21 10:31 NPO Diet Diet Modifications: NPO Type: Strict 03/11/21 Dinner Clear Liquid Diet Diet Modifications: Clear Liquid Diet Diet Modifications: Ensure Clear [place] 3x per day Nutrition Percent Meal Consumed 0% 03/09/21 18:31 Labs: RBC 3.91 X10^6/uL (4.5-5.9) L 03/10/21 06:05 Hgb 11.7 g/dL (13.5-17.5) L 03/10/21 06:05 Hct 34.5 % (41-53) L 03/10/21 06:05 Creatinine 0.67 mg/dL (0.66-1.25) 03/10/21 06:05 Hemoglobin A1c 7.1 % (4.0-6.0) H 03/06/21 22:04 Lactate 1.6 mmol/L (0.7-2.1) 03/09/21 21:00 NT-Pro-B Natriuret Pep 582 pg/mL (<125) H 03/09/21 13:20 Interventions: 1. Advanced diet after discussion with hospitalist to clears 2. Ordered Ensure Clear TID (preference for palmer) EER: 1800kcals (25kcal/kg), 72g PRO (1g/kg) Monitoring/Evaluations: diet progression/tolerance, RDN follow-up in 3 days Electronically Signed by: Yue Davis 03/11/21 14:57 Clinical Dietitian [address] [place] [address]
--- NOTE | 2021-03-11 15:17 | P.PN_ITS ---
Subjective Subjective Date Patient Seen: 03/11/21 Interval history: BRIEF HPI THIS IS A 66-YEAR-OLD MALE BEING TREATED FOR ABDOMINAL DISCOMFORT SECONDARY TO POSSIBLE BILIARY DYSKINESIA CHRONIC PANCREATITIS ALSO HAS BEEN REPORTED. TODAY YOU CONTINUE TO HAVE SOME ABDOMINAL DISCOMFORT REPORTED SOME MILD NAUSEA WELL NO FEVER OR CHILLS NO DIARRHEA REPORTED TODAY NO CHEST PAIN. NO SHORTNESS OF BREATH Exam Vital Signs (past 8 hours): - 03/11/21 08:30 03/11/21 11:37 03/11/21 12:40 Temperature 97.8 F 97.9 F Pulse Rate 65 61 Respiratory Rate 16 16 Blood Pressure 106/68 110/65 Pulse Oximetry 100 98 98 03/11/21 15:08 Temperature Pulse Rate Respiratory Rate Blood Pressure Pulse Oximetry 98 Oxygen Delivery Method Room Air Oxygen Flow Rate 0 Narrative Exam Narrative: NO ACUTE DISTRESS. PATIENT IS ALERT ORIENTED X3. VITAL SIGNS STABLE HEAD ATRAUMATIC NORMOCEPHALIC NECK : SUPPLE WITHOUT ADENOPATHY NO CAROTID BRUITS EYE: EOMI, PERRLA, NORMAL CONJUNCTIVA; NO JAUNDICE CHEST: REGULAR RATE. NO RUBS. PMI IS NON DISPLACED. NO MURMURS; NORMAL S1- S2 PULMONARY: DECREASED BS OVER THE BASES. MILD BIBASILAR CRACKLES NOTED; NO INCREASED DULLNESS TO PERCUSSION ABDOMEN: SOFT. NONTENDER. NONDISTENDED. BOWEL SOUNDS ARE PRESENT IN ALL 4 QUADRANTS. NO MASS. EXTREMITIES: NO EDEMA.. NO CYANOSIS CLUBBING NOTED. NEURO: CRANIAL NERVES 2-12 GROSSLY INTACT. NO FOCAL NEUROLOGICAL DEFICIT NOTED. MSK: NORMAL RANGE OF MOTION FOR AGE. NO JOINT EFFUSION. SKIN: NORMAL FOR ETHNICITY; NO ECCHYMOSIS. NO LESION. GOOD TURGOR.; NO RASHES : NORMAL EXTERNAL GENITALIA. PSYCH : APPROPRIATE MOOD AND AFFECT. ALERT AWAKE ORIENTED X3 Objective Labs Result Diagrams: 03/10/21 06:05 03/10/21 06:05 [facility] Medical History Acute dehydration Campylobacter enteritis Enteritis, enteropathogenic E. coli Exocrine pancreatic insufficiency Gastroenteritis GERD (gastroesophageal reflux disease) HTN (hypertension) Hyperlipidemia Insulin dependent diabetes mellitus with complications Narcolepsy Nausea vomiting and diarrhea Pancreatitis Paroxysmal atrial fibrillation Paroxysmal atrial fibrillation Peripheral vascular disease Psoriasis Surgical History H/O exploratory laparotomy History of femoropopliteal bypass Hx of biopsy Family History Father Colon cancer Mother Narcolepsy Grandmother Narcolepsy Social History household members: friend(s) Smoking Status: Former smoker Assessment & Plan Assessment & Plan narrative: PROBLEM LIST ACUTE ON CHRONIC PANCREATITIS POSSIBLE CHRONIC CHOLECYSTITIS. NO SIGNS OF ACUTE CHOLECYSTITIS AT THIS TIME POSSIBLE BILIARY ACUTE DYSKINESIS DIABETES TYPE 1 PER HISTORY PAROXYSMAL ATRIAL FIBRILLATION HYPERTENSION FOR HISTORY HYPERLIPIDEMIA PER HISTORY GERD PER HISTORY PLAN HIDA SCAN DID NOT SHOW ANY SIGNIFICANT SIGNS WHICH WOULD WORRISOME FOR ACUTE CHOLECYSTITIS WILL DISCONTINUE ANTIBIOTICS FOR NOW VITAL SIGNS HAVE BEEN STABLE WITH NO SIGN OF TOXIC STATE OR ACUTE ABDOMEN WILL CONSULT WITH GENERAL SURGERY FOR FURTHER RECOMMENDATIONS INDICATED FOLLOW LAB CLOSELY THE PATIENT IS STARTED ON CLEAR LIQUID DIET WHICH WILL BE ADVANCED TOLERATED ADDITIONAL MANAGEMENT PER CLINICAL COURSE PROGNOSIS IS GUARDED Time Spent With Patient Critical Care time: I spent a total of [] minutes of critical care time on this patient's care today; this time is exclusive of procedural time. Quality VTE Deep Vein Thrombosis/Pulmonary Embolism Present on Admission: No
[2021-03-11] MEDS: SUCRALFATE 1 GM TABLET PO ×2 (17:33→21:30)
[2021-03-11] MEDS: LIPASE/PROTEASE/AMYLASE 5/17/24 CAP 5 CAP PO (17:38)
[2021-03-11] MEDS: METOPROLOL IR 25 MG TABLET 12.5 MG PO (21:30)
[2021-03-11] MEDS: PRAVASTATIN 20 MG TABLET 80 MG PO (21:30)
[2021-03-11] MEDS: FAMOTIDINE 20 MG TABLET 40 MG PO (21:31)
[2021-03-11] MEDS: OXYCODONE IR 10 MG TABLET PO (23:25)
[2021-03-12] VITALS (13 sets, daily range): BP systolic 106–133; BP diastolic 60–72; PULSE 67–79; RESP 16; TEMP 36.3–36.9; O2SAT 95–98
[2021-03-12] MEDS: DEXTROSE 5%-0.9% NS 1,000 ML 84 ML IV (02:50)
[2021-03-12] MEDS: OXYCODONE IR 10 MG TABLET PO ×3 (06:10→14:49)
[2021-03-12 07:00] LABS: Add Manual Diff / Slide Review NO; Basophils Absolute Auto 100 /uL (0-100); Eosinophils Absolute Auto 200 /uL (0-450); Eosinophils Percent Auto 4.1 % (2-4); Hemoglobin 11.1 g/dL (13.5-17.5); Lymphocytes Absolute Auto 900 /uL (1100-4500); Lymphocytes Percent Auto 14.8 % (25-40); Mean Corpuscular HGB Conc 33.8 % (30-36); Mean Corpuscular Hemoglobin 29.8 PG (26-34); Mean Corpuscular Volume 88.1 fL (80-100); Monocytes Absolute Auto 500 /uL (0-900); Monocytes Percent Auto 7.8 % (3-14); Neutrophils Absolute Auto 4300 /uL (1500-7000); Neutrophils Percent Auto 72.3 % (50-75); Platelet Count 223 X10^3/uL (150-400); Red Blood Cell Count 3.75 X10^6/uL (4.5-5.9); Red Cell Distribution Width 14.6 % (11.6-14.8); White Blood Cell Count 5.9 X10^3/uL (4.5-11.0)
[2021-03-12 07:08] LABS: Alanine Aminotransferase 14 IU/L (<50); Albumin Globulin Ratio 1.3 (1.0-2.8); Alkaline Phosphatase 47 U/L (38-126); Aspartate Aminotransferase 21 IU/L (17-59); BUN Creatinine Ratio 7.4 (6-22); Bilirubin Total 0.4 mg/dL (0.2-1.3); Blood Urea Nitrogen 5 mg/dL (9-20); Calcium 7.8 mg/dL (8.4-10.2); Carbon Dioxide 27 mmol/L (22-32); Chloride 112 mmol/L (98-107); Estimated Glomerular Filt Rate > 60.0 mL/min (>60); Globulin 2.3 g/dL (1.7-4.1); Glucose 106 mg/dL (80-110); HEMOLYSIS < 15 (0-50); Lipase 24 U/L (23-300); Potassium 3.2 mmol/L (3.4-5.1); Sodium 140 mmol/L (137-145); Total Protein 5.3 g/dL (6.3-8.2)
[2021-03-12] MEDS: SUCRALFATE 1 GM TABLET PO ×4 (07:42→21:42)
[2021-03-12] MEDS: ONDANSETRON 4 MG/2 ML INJ IV ×4 (07:43→21:11)
[2021-03-12] MEDS: LIPASE/PROTEASE/AMYLASE 5/17/24 CAP 5 CAP PO ×3 (07:59→17:15)
[2021-03-12] MEDS: POTASSIUM CHLORIDE 10 MEQ TAB PO ×2 (09:06→14:49)
[2021-03-12] MEDS: FLUTICASONE 120 SPRAY/16 GM SPRAY.SUSP NASAL (09:06)
[2021-03-12] MEDS: METOPROLOL IR 25 MG TABLET 12.5 MG PO ×2 (09:06→21:42)
[2021-03-12] MEDS: FAMOTIDINE 20 MG TABLET PO ×2 (09:06→21:18)
[2021-03-12] MEDS: LIDOCAINE PATCH 1 EACH ADH..PATCH TOP (09:36)
[2021-03-12] MEDS: KCL 20 MEQ IN NS 1,000 ML 84 MEQ IV ×3 (10:07→21:40)
[2021-03-12] MEDS: PROMETHAZINE 25 MG SUPP PR (10:12)
[2021-03-12 11:26] LABS: Procalcitonin 17.6 ng/mL (<0.5)
--- NOTE | 2021-03-12 12:55 | PM.CN ---
History of Present Illness Consult details Date Patient Seen: 03/12/21 Time Patient Seen: 12:56 Chief complaint: Pancreatitis Reason for consult: Gallbladder distention Narrative: Alfredo is a 66-year-old gentleman who has been suffering from chronic abdominal pain for quite some time now. This pain has frequently been attributed to chronic pancreatitis. He reports that the pain is postprandial and lasts for several hours. He describes the pain as a burning stabbing type of pain. He also reports frequent diarrhea. A CT scan from a few days ago showed a distended gallbladder which prompted an ultrasound confirming gallbladder stone levy but no stones were seen. There was questionable gallbladder wall thickening. Following this a HIDA scan showed no cystic duct obstruction but there was decreased gallbladder ejection. CT scan showed a possible sigmoid adenocarcinoma. He has had much of his care provided at the [facility] in [place]. Apparently he had an ERCP a few years ago and a neuroendocrine tumor was resected by ERCP. He has also had exploratory laparotomy because of concern for ischemic bowel but none was found. He believes his last EGD and colonoscopy were the for the pandemic but less than 5 years ago. He takes Plavix because of lower extremity vascular stents and Pradaxa for atrial fibrillation. Meds Home Medications and Allergies Home Medications Medication Instructions Recorded Confirmed Type clopidogrel 75 mg tablet (Plavix) 75 mg PO DAILY #0 04/15/08 03/08/21 History diclofenac sodium 1 % topical gel 1 crys TOPICAL QID PRN #0 03/14/17 03/08/21 History (Voltaren) acetaminophen 325 mg tablet (Pain 325 mg PO Q4HP PRN 09/25/17 03/08/21 History Relief (acetaminophen)) cholecalciferol (vitamin D3) 25 3,000 unit PO DAILY 09/25/17 03/08/21 History mcg (1,000 unit) capsule (Vitamin D3) dabigatran etexilate 150 mg 150 mg PO BID 03/24/18 03/08/21 History capsule (Pradaxa) fluticasone propionate 50 50 mcg INTRANASAL DAILY #0 02/13/19 03/08/21 History mcg/actuation nasal spray,suspension pravastatin 80 mg tablet 80 mg PO BEDTIME #0 02/13/19 03/08/21 History lisinopril 2.5 mg tablet 2.5 mg PO DAILY 04/28/19 03/08/21 History metoprolol tartrate 25 mg tablet 12.5 mg PO BID 04/28/19 03/08/21 History gentamicin 0.3 % eye drops 1 drp EYE-BOTH TID PRN #5 ml 03/15/20 03/08/21 Rx insulin lispro 100 unit/mL See Rx Instructions SUBCUT 03/15/20 03/08/21 History subcutaneous solution (Humalog USEASDIRECTD U-100 Insulin) cyictj-[id number] 1 cap PO QID #120 cap 03/15/20 03/08/21 Rx 24,000-76,000-120,000 unit capsule,delayed rel (Creon) ondansetron 4 mg disintegrating 4 mg PO Q6H PRN 03/15/20 03/08/21 History tablet promethazine 25 mg rectal 25 mg OH Q6H PRN 06/17/20 03/08/21 History suppository methylphenidate HCl 20 mg tablet See Rx Instructions .ROUTE .COMPLEX 03/08/21 03/08/21 History ondansetron 8 mg disintegrating See Rx Instructions .ROUTE 03/08/21 03/08/21 History tablet .COMPLEX PRN Allergies Allergy/AdvReac Type Severity Reaction Status Date / Time Iodine and Iodide Containing Allergy Severe Anaphylaxis Verified 03/26/20 15:09 Produc [IODINE AND IODIDE CONTAINING PRODUC] Sulfa (Sulfonamide Allergy Severe Anaphylaxis Verified 03/26/20 15:09 Antibiotics) [SULFA (SULFONAMIDE ANTIBIOTICS)] Exam Vital Signs (past 8 hours): - 03/12/21 05:00 03/12/21 07:54 03/12/21 10:20 Temperature 97.3 F L Pulse Rate 79 Respiratory Rate 16 Blood Pressure 133/72 Pulse Oximetry 97 98 97 03/12/21 12:19 Temperature 97.9 F Pulse Rate 74 Respiratory Rate 16 Blood Pressure 131/69 Pulse Oximetry 97 Oxygen Delivery Method Room Air Oxygen Flow Rate 0 Const General: No acute distress Nutritional Appearance: average body habitus Eyes General: appearance normal, both eyes and all related structures Resp Effort & Inspection: normal respiratory effort GI Inspection: non-distended Other: Tender to palpation in the right upper quadrant Objective Labs Result Diagrams: 03/12/21 06:47 03/12/21 06:47 Labs: Laboratory Results - last 24 hr 03/12/21 03/12/21 03/12/21 06:47 06:47 06:47 WBC 5.9 RBC 3.75 L Hgb 11.1 L Hct 33.0 L MCV 88.1 MCH 29.8 MCHC 33.8 RDW 14.6 Plt Count 223 Neut % (Auto) 72.3 Lymph % (Auto) 14.8 L [place] % (Auto) 7.8 Eos % (Auto) 4.1 H Baso % (Auto) 1.0 Neut # (Auto) 4300 Lymph # (Auto) 900 L [place] # (Auto) 500 Eos # (Auto) 200 Baso # (Auto) 100 Sodium 140 Potassium 3.2 L Chloride 112 H Carbon Dioxide 27 BUN 5 L Creatinine 0.68 Estimated GFR > 60.0 BUN/Creatinine Ratio 7.4 Glucose 106 D Calcium 7.8 L Total Bilirubin 0.4 AST 21 ALT 14 Alkaline Phosphatase 47 Total Protein 5.3 L Albumin 3.0 L Globulin 2.3 Albumin/Globulin Ratio 1.3 Lipase 24 Procalcitonin 17.6 H PFSH Medical History Acute dehydration Campylobacter enteritis Enteritis, enteropathogenic E. coli Exocrine pancreatic insufficiency Gastroenteritis GERD (gastroesophageal reflux disease) HTN (hypertension) Hyperlipidemia Insulin dependent diabetes mellitus with complications Narcolepsy Nausea vomiting and diarrhea Pancreatitis Paroxysmal atrial fibrillation Paroxysmal atrial fibrillation Peripheral vascular disease Psoriasis Surgical History H/O exploratory laparotomy History of femoropopliteal bypass Hx of biopsy Family History Father Colon cancer Mother Narcolepsy Grandmother Narcolepsy Social History household members: friend(s) Tobacco & Substance Use Smoking Status: Former smoker Assessment & Plan Assessment and plan (1) Abdominal pain: Status: Acute Plan We discussed the possibility of gallbladder dysfunction causing his abdominal pain. It is difficult to know for certain if cholecystectomy would improve his symptoms. In any case, without gallstones it is not a surgical emergency. I explained the diagnosis of biliary dyskinesia and how cholecystectomy is a last resort after all other potential causes for pain have been excluded. I do recommend we perform an EGD and colonoscopy prior to considering cholecystectomy. All of this can be done as an outpatient however since he is here and has not taken his Pradaxa or Plavix we can proceed with endoscopy on this admission. I will order a prep and we will plan to perform an EGD and colonoscopy tomorrow around 11. Time Spent With Patient Critical Care time: I spent a total of [] minutes of critical care time on this patient's care today; this time is exclusive of procedural time.
[2021-03-12] MEDS: LORazepam 0.5 MG TABLET PO (14:49)
[2021-03-12] MEDS: ACETAMINOPHEN 325 MG TABLET 650 MG PO (14:52)
--- NOTE | 2021-03-12 16:33 | PC.NURSE ---
midline dressing changed today. pt will be on clear liquid then NPO at midnight for procedure tomorrow.
--- NOTE | 2021-03-12 17:18 | P.PN_ITS ---
Subjective Subjective Interval history: BRIEF HPI THIS IS A 66-YEAR-OLD MALE BEING TREATED FOR ABDOMINAL DISCOMFORT SECONDARY TO POSSIBLE BILIARY DYSKINESIA VERSUS CHRONIC CHOLECYSTITIS CHRONIC PANCREATITIS ALSO HAS BEEN REPORTED. TODAY CONTINUE TO HAVE SOME ABDOMINAL DISCOMFORT REPORTS MILD NAUSEA WELL DENIES ANY VOMITING NO DIARRHEA NO OTHER COMPLAINTS NO SIGNIFICANT ISSUES REPORTED BY NURSING OVERNIGHT Exam Vital Signs (past 8 hours): - 03/12/21 10:20 03/12/21 12:19 03/12/21 12:59 Temperature 97.9 F Pulse Rate 74 Respiratory Rate 16 Blood Pressure 131/69 Pulse Oximetry 97 97 98 03/12/21 15:46 Temperature Pulse Rate Respiratory Rate Blood Pressure Pulse Oximetry 96 Oxygen Delivery Method Room Air Oxygen Flow Rate 0 Narrative Exam Narrative: NO ACUTE DISTRESS.? PATIENT IS ALERT ORIENTED X3. VITAL SIGNS STABLE HEAD ATRAUMATIC NORMOCEPHALIC NECK : SUPPLE WITHOUT ADENOPATHY NO CAROTID BRUITS EYE:? EOMI, PERRLA, NORMAL CONJUNCTIVA; NO JAUNDICE CHEST:? REGULAR RATE.? ? NO RUBS.? PMI IS NON DISPLACED.? NO MURMURS; NORMAL S1- S2 PULMONARY:? DECREASED BS OVER THE BASES.? MILD BIBASILAR CRACKLES NOTED; NO INCREASED DULLNESS TO PERCUSSION ABDOMEN:? SOFT.? NONTENDER.? NONDISTENDED.? BOWEL SOUNDS ARE PRESENT IN ALL 4 QUADRANTS.? NO MASS. EXTREMITIES: NO EDEMA..? NO CYANOSIS CLUBBING NOTED. NEURO:? CRANIAL NERVES 2-12 GROSSLY INTACT. NO FOCAL NEUROLOGICAL DEFICIT NOTED. MSK:? NORMAL RANGE OF MOTION FOR AGE.? NO JOINT EFFUSION. SKIN:? NORMAL FOR ETHNICITY; NO ECCHYMOSIS.? NO LESION. ? GOOD? TURGOR.; NO RASHES :? NORMAL EXTERNAL GENITALIA. PSYCH :? APPROPRIATE MOOD AND AFFECT.? ALERT AWAKE ORIENTED X3 Objective Labs Result Diagrams: 03/12/21 06:47 03/12/21 06:47 Labs: Laboratory Results - last 24 hr 03/12/21 03/12/21 03/12/21 06:47 06:47 06:47 WBC 5.9 RBC 3.75 L Hgb 11.1 L Hct 33.0 L MCV 88.1 MCH 29.8 MCHC 33.8 RDW 14.6 Plt Count 223 Neut % (Auto) 72.3 Lymph % (Auto) 14.8 L [place] % (Auto) 7.8 Eos % (Auto) 4.1 H Baso % (Auto) 1.0 Neut # (Auto) 4300 Lymph # (Auto) 900 L [place] # (Auto) 500 Eos # (Auto) 200 Baso # (Auto) 100 Sodium 140 Potassium 3.2 L Chloride 112 H Carbon Dioxide 27 BUN 5 L Creatinine 0.68 Estimated GFR > 60.0 BUN/Creatinine Ratio 7.4 Glucose 106 D Calcium 7.8 L Total Bilirubin 0.4 AST 21 ALT 14 Alkaline Phosphatase 47 Total Protein 5.3 L Albumin 3.0 L Globulin 2.3 Albumin/Globulin Ratio 1.3 Lipase 24 Procalcitonin 17.6 H [facility] Medical History Acute dehydration Campylobacter enteritis Enteritis, enteropathogenic E. coli Exocrine pancreatic insufficiency Gastroenteritis GERD (gastroesophageal reflux disease) HTN (hypertension) Hyperlipidemia Insulin dependent diabetes mellitus with complications Narcolepsy Nausea vomiting and diarrhea Pancreatitis Paroxysmal atrial fibrillation Paroxysmal atrial fibrillation Peripheral vascular disease Psoriasis Surgical History H/O exploratory laparotomy History of femoropopliteal bypass Hx of biopsy Family History Father Colon cancer Mother Narcolepsy Grandmother Narcolepsy Social History household members: friend(s) Smoking Status: Former smoker Assessment & Plan Assessment & Plan narrative: PROBLEM LIST ACUTE ON CHRONIC PANCREATITIS. MONITOR CLOSELY ? CHRONIC CHOLECYSTITIS.? SURGICAL TEAM ON BOARD. BILIARY ACUTE DYSKINESIS. SURGICAL TEAM ON BOARD DIABETES TYPE 1 PER HISTORY. STABLE TRIGGER PAROXYSMAL ATRIAL FIBRILLATION. RATE IS CONTROLLED HYPERTENSION FOR HISTORY HYPERLIPIDEMIA PER HISTORY GERD PER HISTORY HYPOKALEMIA. ON REPLACEMENT PROTOCOL PLAN 03/12 PATIENT HAS BEEN REFERRED TO SURGICAL TEAM FOR RECOMMENDATION AFTER THE HIDA REPORT A POSSIBLE CHOLECYSTECTOMY IS BEING DISCUSSED WITH PATIENT AND THE SURGICAL TEAM PATIENT TO UNDERGO FURTHER EVALUATION WITH COLONOSCOPY AN EGD IN THE MORNING PRIOR TO CONSIDER PROCEDURE HOWEVER CONTINUE TO FOLLOW LABS CLOSELY PATIENT WILL BE NPO OVERNIGHT IV FLUID WILL BE ORDERED TO MAINTAIN PROPER HYDRATION ADD KCL ADDICTIVE TO THE IV FLUID ADDITIONAL MANAGEMENT PER CLINICAL COURSE DISCHARGE FOR CLEARANCE FROM THE SURGICAL TEAM 03/11 HIDA SCAN DID NOT SHOW ANY SIGNIFICANT SIGNS WHICH WOULD? WORRISOME FOR? ACUTE CHOLECYSTITIS WILL DISCONTINUE ANTIBIOTICS FOR NOW VITAL SIGNS HAVE BEEN STABLE WITH NO SIGN OF TOXIC STATE OR? ACUTE ABDOMEN WILL CONSULT WITH GENERAL SURGERY FOR FURTHER RECOMMENDATIONS INDICATED FOLLOW LAB CLOSELY THE PATIENT IS STARTED ON CLEAR LIQUID DIET WHICH WILL BE ADVANCED TOLERATED ADDITIONAL MANAGEMENT PER CLINICAL COURSE PROGNOSIS IS GUARDED Time Spent With Patient Critical Care time: I spent a total of [] minutes of critical care time on this patient's care today; this time is exclusive of procedural time. Quality VTE Deep Vein Thrombosis/Pulmonary Embolism Present on Admission: No
[2021-03-12] MEDS: PEG3350/SOD SULF,BICARB,CL/KCL 4,000 ML SOLUTION 2000 ML PO (17:49)
[2021-03-12] MEDS: PRAVASTATIN 20 MG TABLET 80 MG PO (21:42)
[2021-03-13] VITALS (14 sets, daily range): BP systolic 104–126; BP diastolic 57–71; PULSE 68–99; RESP 15–18; TEMP 36.6–37.2; O2SAT 93–99
[2021-03-13] MEDS: HYDROMORPHONE 1 MG INJ IV ×4 (01:18→22:19)
[2021-03-13] MEDS: ONDANSETRON 4 MG/2 ML INJ IV ×4 (03:32→20:09)
[2021-03-13 06:09] LABS: Add Manual Diff / Slide Review NO; Basophils Absolute Auto 0 /uL (0-100); Basophils Percent Auto 0.6 % (0-2); Eosinophils Absolute Auto 200 /uL (0-450); Eosinophils Percent Auto 3.7 % (2-4); Hematocrit 32.2 % (41-53); Hemoglobin 10.8 g/dL (13.5-17.5); Lymphocytes Absolute Auto 600 /uL (1100-4500); Lymphocytes Percent Auto 12.1 % (25-40); Mean Corpuscular HGB Conc 33.6 % (30-36); Mean Corpuscular Hemoglobin 30.1 PG (26-34); Mean Corpuscular Volume 89.5 fL (80-100); Monocytes Absolute Auto 400 /uL (0-900); Monocytes Percent Auto 8.3 % (3-14); Neutrophils Absolute Auto 3800 /uL (1500-7000); Neutrophils Percent Auto 75.3 % (50-75); Platelet Count 222 X10^3/uL (150-400); Red Cell Distribution Width 14.2 % (11.6-14.8); White Blood Cell Count 5.1 X10^3/uL (4.5-11.0)
[2021-03-13 06:26] LABS: Alanine Aminotransferase 13 IU/L (<50); Albumin Globulin Ratio 1.3 (1.0-2.8); Alkaline Phosphatase 42 U/L (38-126); Aspartate Aminotransferase 22 IU/L (17-59); BUN Creatinine Ratio 6.3 (6-22); Bilirubin Total 0.5 mg/dL (0.2-1.3); Blood Urea Nitrogen 4 mg/dL (9-20); Calcium 7.8 mg/dL (8.4-10.2); Carbon Dioxide 28 mmol/L (22-32); Chloride 112 mmol/L (98-107); Estimated Glomerular Filt Rate > 60.0 mL/min (>60); Globulin 2.3 g/dL (1.7-4.1); Glucose 87 mg/dL (80-110); HEMOLYSIS 29 (0-50); Lipase 54 U/L (23-300); Potassium 3.4 mmol/L (3.4-5.1); Sodium 142 mmol/L (137-145); Total Protein 5.3 g/dL (6.3-8.2)
[2021-03-13] MEDS: FAMOTIDINE 20 MG TABLET PO (08:30)
[2021-03-13] MEDS: LIDOCAINE PATCH 1 EACH ADH..PATCH TOP (08:31)
[2021-03-13] MEDS: FLUTICASONE 120 SPRAY/16 GM SPRAY.SUSP NASAL (08:31)
--- NOTE | 2021-03-13 08:53 | P.PN_ITS ---
Subjective Subjective Date Patient Seen: 03/13/21 Interval history: BRIEF HPI THIS IS A 66-YEAR-OLD MALE BEING TREATED FOR ABDOMINAL DISCOMFORT SECONDARY TO POSSIBLE BILIARY DYSKINESIA VERSUS CHRONIC CHOLECYSTITIS CHRONIC PANCREATITIS ALSO HAS BEEN REPORTED. TODAY NO SIGNIFICANT COMPLAINTS THIS MORNING APART FROM MULTIPLE TRIPS TO THE BATHROOM EXPECTED NO CHEST PAIN. NO CHEST PRESSURE. DENIES ANY NAUSEA OR VOMITING LOOSE BOWEL MOVEMENT REPORTED FROM COLONOSCOPY PREP NO OTHER COMPLAINTS NO SIGNIFICANT ISSUES REPORTED BY NURSING OVERNIGHT Exam Vital Signs (past 8 hours): - 03/13/21 01:00 03/13/21 01:09 03/13/21 04:58 Temperature 98.0 F Pulse Rate Respiratory Rate 16 Blood Pressure Pulse Oximetry 95 95 03/13/21 05:28 03/13/21 08:18 Temperature 98.9 F 98.1 F Pulse Rate 69 68 Respiratory Rate 16 16 Blood Pressure 122/61 121/65 Pulse Oximetry 93 97 Oxygen Delivery Method Room Air Oxygen Flow Rate 0 Narrative Exam Narrative: O ACUTE DISTRESS.? PATIENT IS ALERT ORIENTED X3. VITAL SIGNS STABLE HEAD ATRAUMATIC NORMOCEPHALIC NECK : SUPPLE WITHOUT ADENOPATHY NO CAROTID BRUITS EYE:? EOMI, PERRLA, NORMAL CONJUNCTIVA; NO JAUNDICE CHEST:? REGULAR RATE.? ? NO RUBS.? PMI IS NON DISPLACED.? NO MURMURS; NORMAL S1- S2 PULMONARY:? DECREASED BS OVER THE BASES.? MILD BIBASILAR CRACKLES NOTED; NO I NCREASED DULLNESS TO PERCUSSION ABDOMEN:? SOFT.? NONTENDER.? NONDISTENDED.? BOWEL SOUNDS ARE PRESENT IN ALL 4 QUADRANTS.? NO MASS. EXTREMITIES: NO EDEMA..? NO CYANOSIS CLUBBING NOTED. NEURO:? CRANIAL NERVES 2-12 GROSSLY INTACT. NO FOCAL NEUROLOGICAL DEFICIT NOTED. MSK:? NORMAL RANGE OF MOTION FOR AGE.? NO JOINT EFFUSION. SKIN:? NORMAL FOR ETHNICITY; NO ECCHYMOSIS.? NO LESION. ? GOOD? TURGOR.; NO R ASHES :? NORMAL EXTERNAL GENITALIA. PSYCH :? APPROPRIATE MOOD AND AFFECT.? ALERT AWAKE ORIENTED X3 Objective Labs Result Diagrams: 03/13/21 05:45 03/13/21 05:45 Labs: Laboratory Results - last 24 hr 03/12/21 03/13/21 03/13/21 06:47 05:45 05:45 WBC 5.1 RBC 3.60 L Hgb 10.8 L Hct 32.2 L MCV 89.5 MCH 30.1 MCHC 33.6 RDW 14.2 Plt Count 222 Neut % (Auto) 75.3 H Lymph % (Auto) 12.1 L [place] % (Auto) 8.3 Eos % (Auto) 3.7 Baso % (Auto) 0.6 Neut # (Auto) 3800 Lymph # (Auto) 600 L [place] # (Auto) 400 Eos # (Auto) 200 Baso # (Auto) 0 Sodium 142 Potassium 3.4 Chloride 112 H Carbon Dioxide 28 BUN 4 L Creatinine 0.64 L Estimated GFR > 60.0 BUN/Creatinine Ratio 6.3 Glucose 87 Calcium 7.8 L Total Bilirubin 0.5 AST 22 ALT 13 Alkaline Phosphatase 42 Total Protein 5.3 L Albumin 3.0 L Globulin 2.3 Albumin/Globulin Ratio 1.3 Lipase 54 D Procalcitonin 17.6 H PFSH Medical History Acute dehydration Campylobacter enteritis Enteritis, enteropathogenic E. coli Exocrine pancreatic insufficiency Gastroenteritis GERD (gastroesophageal reflux disease) HTN (hypertension) Hyperlipidemia Insulin dependent diabetes mellitus with complications Narcolepsy Nausea vomiting and diarrhea Pancreatitis Paroxysmal atrial fibrillation Paroxysmal atrial fibrillation Peripheral vascular disease Psoriasis Surgical History H/O exploratory laparotomy History of femoropopliteal bypass Hx of biopsy Family History Father Colon cancer Mother Narcolepsy Grandmother Narcolepsy Social History household members: friend(s) Smoking Status: Former smoker Assessment & Plan Assessment & Plan narrative: PROBLEM LIST ACUTE ON CHRONIC PANCREATITIS.? MONITOR CLOSELY ? ?CHRONIC CHOLECYSTITIS.? SURGICAL TEAM ON BOARD. ?BILIARY ACUTE DYSKINESIS.? SURGICAL TEAM ON BOARD DIABETES TYPE 1 PER HISTORY.? STABLE TRIGGER PAROXYSMAL ATRIAL FIBRILLATION.? RATE IS CONTROLLED HYPERTENSION FOR HISTORY HYPERLIPIDEMIA PER HISTORY GERD PER HISTORY HYPOKALEMIA.? ON REPLACEMENT PROTOCOL PLAN 03/13 PLAN FOR COLONOSCOPY AND EGD THIS MORNING PATIENT HAD A GOOD RESULT FROM THE PREP OVERNIGHT LABS LOOK STABLE VITAL SIGNS ARE STABLE WELL PATIENT IS AGREEABLE TO THE PROCEDURES WILL CONTINUE TO MONITOR CLOSELY WILL FOLLOW POSTOPERATIVELY FOR RECOMMENDATIONS FROM THE SURGICAL TEAM IN REGARD TO POSSIBLE CHOLECYSTECTOMY PRIOR TO DISCHARGE ADDITIONAL MANAGEMENT PER CLINICAL COURSE DISCHARGE ONCE CLEARED BY THE SURGICAL TEAM 03/12 PATIENT HAS BEEN REFERRED TO SURGICAL TEAM FOR RECOMMENDATION AFTER THE HIDA REPORT A POSSIBLE CHOLECYSTECTOMY IS BEING DISCUSSED WITH PATIENT AND THE SURGICAL TEAM PATIENT TO UNDERGO FURTHER EVALUATION WITH COLONOSCOPY AN EGD IN THE MORNING PRIOR TO CONSIDER PROCEDURE HOWEVER CONTINUE TO FOLLOW LABS CLOSELY PATIENT WILL BE NPO OVERNIGHT IV FLUID WILL BE ORDERED TO MAINTAIN PROPER HYDRATION ADD KCL ADDICTIVE TO THE IV FLUID ADDITIONAL MANAGEMENT PER CLINICAL COURSE DISCHARGE FOR CLEARANCE FROM THE SURGICAL TEAM 03/11 HIDA SCAN DID NOT SHOW ANY SIGNIFICANT SIGNS WHICH WOULD? WORRISOME FOR? ACUTE CHOLECYSTITIS WILL DISCONTINUE ANTIBIOTICS FOR NOW VITAL SIGNS HAVE BEEN STABLE WITH NO SIGN OF TOXIC STATE OR? ACUTE ABDOMEN WILL CONSULT WITH GENERAL SURGERY FOR FURTHER RECOMMENDATIONS INDICATED FOLLOW LAB CLOSELY THE PATIENT IS STARTED ON CLEAR LIQUID DIET WHICH WILL BE ADVANCED TOLERATED ADDITIONAL MANAGEMENT PER CLINICAL COURSE PROGNOSIS IS GUARDED Time Spent With Patient Critical Care time: I spent a total of [] minutes of critical care time on this patient's care today; this time is exclusive of procedural time. Quality VTE Deep Vein Thrombosis/Pulmonary Embolism Present on Admission: No
[2021-03-13] MEDS: METOPROLOL IR 25 MG TABLET 12.5 MG PO ×2 (10:36→20:09)
[2021-03-13] MEDS: KCL 20 MEQ IN NS 1,000 ML 84 MEQ IV ×2 (10:40→22:01)
[2021-03-13] MEDS: METOPROLOL TARTRATE 5 MG/5 ML INJ IV (11:06)
[2021-03-13 11:52] LABS: Troponin I < 0.012 ng/mL (0.01-0.034)
--- NOTE | 2021-03-13 12:22 | PM.PN.1 ---
Subjective Subjective Date Patient Seen: 03/13/21 Time Patient Seen: 12:22 Interval history: Alfredo completed his prep last night. He has since popped back and AFib and he feels chest pressure. Exam Vital Signs (past 8 hours): - 03/13/21 04:58 03/13/21 05:28 03/13/21 08:18 Temperature 98.9 F 98.1 F Pulse Rate 69 68 Respiratory Rate 16 16 Blood Pressure 122/61 121/65 Pulse Oximetry 95 93 97 03/13/21 10:10 03/13/21 10:51 Temperature 97.8 F Pulse Rate 93 H 94 H Respiratory Rate 18 16 Blood Pressure 126/65 116/71 Pulse Oximetry 98 Oxygen Delivery Method Room Air Oxygen Flow Rate 0 Const General: No acute distress Objective Labs Result Diagrams: 03/13/21 05:45 03/13/21 05:45 Labs: Laboratory Results - last 24 hr 03/13/21 03/13/21 03/13/21 05:45 05:45 11:15 WBC 5.1 RBC 3.60 L Hgb 10.8 L Hct 32.2 L MCV 89.5 MCH 30.1 MCHC 33.6 RDW 14.2 Plt Count 222 Neut % (Auto) 75.3 H Lymph % (Auto) 12.1 L [place] % (Auto) 8.3 Eos % (Auto) 3.7 Baso % (Auto) 0.6 Neut # (Auto) 3800 Lymph # (Auto) 600 L [place] # (Auto) 400 Eos # (Auto) 200 Baso # (Auto) 0 Sodium 142 Potassium 3.4 Chloride 112 H Carbon Dioxide 28 BUN 4 L Creatinine 0.64 L Estimated GFR > 60.0 BUN/Creatinine Ratio 6.3 Glucose 87 Calcium 7.8 L Total Bilirubin 0.5 AST 22 ALT 13 Alkaline Phosphatase 42 Troponin I < 0.012 Total Protein 5.3 L Albumin 3.0 L Globulin 2.3 Albumin/Globulin Ratio 1.3 Lipase 54 D [facility] Medical History Acute dehydration Campylobacter enteritis Enteritis, enteropathogenic E. coli Exocrine pancreatic insufficiency Gastroenteritis GERD (gastroesophageal reflux disease) HTN (hypertension) Hyperlipidemia Insulin dependent diabetes mellitus with complications Narcolepsy Nausea vomiting and diarrhea Pancreatitis Paroxysmal atrial fibrillation Paroxysmal atrial fibrillation Peripheral vascular disease Psoriasis Surgical History H/O exploratory laparotomy History of femoropopliteal bypass Hx of biopsy Family History Father Colon cancer Mother Narcolepsy Grandmother Narcolepsy Social History household members: friend(s) Smoking Status: Former smoker Assessment & Plan Assessment and plan (1) Abdominal pain: Status: Acute Plan Recommend delay endoscopy until tomorrow and focus on and rate controlled today. Okay for clear liquids today and NPO at midnight. Time Spent With Patient Critical Care time: I spent a total of [] minutes of critical care time on this patient's care today; this time is exclusive of procedural time. Quality VTE Deep Vein Thrombosis/Pulmonary Embolism Present on Admission: No
[2021-03-13] MEDS: LIPASE/PROTEASE/AMYLASE 5/17/24 CAP 5 CAP PO ×2 (12:53→17:38)
[2021-03-13] MEDS: PANTOPRAZOLE 40 MG VIAL IV (12:59)
--- NOTE | 2021-03-13 14:51 | PC.NURSE ---
1035 pt up amb cuellar with sba, HR INCREASED TO 120'S PT C/O CHEST PRESSURE VSS , EKG SHOWS AFIB GREATER THAN 100, MD AWARE ORDERS RECD. MEDICATED WITH METOPROLOL 5MG IVP. DR. AGUILAR HERE TO SEE PT, PROCEDURE POSTPONED UNTIL RANDOLPH. STARTED CLEAR LIQUIDS. PT HR CONVERTED TO NSR [id number] PER ICU TELE READING. 1500 SLEEPING WITHOUT C/O
[2021-03-13] MEDS: SUCRALFATE 1 GM TABLET PO ×2 (16:30→20:09)
[2021-03-13 18:25] LABS: Creatine Kinase 65 U/L (55-170)
[2021-03-13 18:39] LABS: Troponin I < 0.012 ng/mL (0.01-0.034)
[2021-03-13] MEDS: PRAVASTATIN 20 MG TABLET 80 MG PO (20:09)
[2021-03-13] MEDS: ACETAMINOPHEN 325 MG TABLET 650 MG PO (20:09)
[2021-03-13] MEDS: FAMOTIDINE 20 MG TABLET 40 MG PO (20:15)
[2021-03-13] MEDS: INSULIN LISPRO 100 UNIT/ML 3ML VIAL SUBCUT (22:02)
[2021-03-13] MEDS: LIPASE/PROTEASE/AMYLASE 5/17/24 CAP PO (22:26)
[2021-03-14] VITALS (23 sets, daily range): BP systolic 114–161; BP diastolic 59–90; PULSE 60–103; RESP 11–20; TEMP 36.1–37.4; O2SAT 87–98; BMI 25.9
--- NOTE | 2021-03-14 | PATH_ITS ---
[facility] Accession Number: [id number] . 01 Material submitted: . PART A: gastrointestinal site - ANTRUM BIOPSY PART B: colon - SIGMOID COLON POLYP X3 . 01 Clinical history: . PANCREATITIS . 02 Diagnosis: A. Antrum, Biopsy: Gastric antral mucosa with mild chronic inflammation. Negative for Helicobacter organisms by immunohistochemistry. Negative for intestinal metaplasia. Negative for dysplasia or malignancy. . B. Sigmoid Colon Polyp x3: Multiple (approximately three) portions of hyperplastic polyp. MRV 03/17/2021 1459 Local . 02 Electronically signed: . Eulalia Murray MD, Pathologist NPI- [id number] . 01 Gross description: . A. Specimen A is received in formalin labeled antrum and consists of two lindo fragments of soft tissue measuring 0.3 x 0.3 x 0.2 cm in aggregate. The specimen is entirely submitted in cassette A1. B. Specimen B is received in formalin labeled sigmoid colon polyp and consists of multiple lindo-pink fragments of soft tissue, measuring 2.0 x 1.5 x 0.3 cm in aggregate. The specimen is entirely submitted in cassette B1. ([id number]) /[facility] 03/15/2021 1842 Local . 02 Microscopic: . A. An immunohistochemical stain was performed to evaluate for Helicobacter organisms and is negative. The control stain showed appropriate reactivity. . . * This test was developed and its performance characteristics determined by [employer]. It has not been cleared or approved by the U.S. Food and Drug Administration. The FDA has determined that such clearance or approval is not necessary. This test is used for clinical purposes. It should not be regarded as investigational or for research. . 02 Pathologist provided ICD-10: K63.5 . 02 CPT . 522972, 087970, L08736 Performed at: 01 [facility] [address] [place] [address], [place], [place] [id number] MD Sj Estevez MD Phone: [phone] Performed at: 02 [facility] [address] [place], [place] [id number] MD Stephanie Yarbrough MD Phone: [phone]
[2021-03-14] MEDS: PROMETHAZINE 25 MG SUPP PR (00:10)
[2021-03-14] MEDS: LORazepam 0.5 MG TABLET PO ×2 (01:14→17:16)
[2021-03-14 05:44] LABS: Add Manual Diff / Slide Review NO; Basophils Absolute Auto 0 /uL (0-100); Basophils Percent Auto 0.8 % (0-2); Eosinophils Absolute Auto 100 /uL (0-450); Hematocrit 32.2 % (41-53); Hemoglobin 10.9 g/dL (13.5-17.5); Lymphocytes Absolute Auto 800 /uL (1100-4500); Mean Corpuscular HGB Conc 33.9 % (30-36); Mean Corpuscular Volume 88.5 fL (80-100); Monocytes Absolute Auto 400 /uL (0-900); Monocytes Percent Auto 9.7 % (3-14); Neutrophils Absolute Auto 2400 /uL (1500-7000); Neutrophils Percent Auto 63.5 % (50-75); Platelet Count 215 X10^3/uL (150-400); Red Blood Cell Count 3.64 X10^6/uL (4.5-5.9); Red Cell Distribution Width 14.3 % (11.6-14.8); White Blood Cell Count 3.7 X10^3/uL (4.5-11.0)
[2021-03-14 05:54] LABS: Alanine Aminotransferase 12 IU/L (<50); Albumin Globulin Ratio 1.3 (1.0-2.8); Alkaline Phosphatase 41 U/L (38-126); Aspartate Aminotransferase 21 IU/L (17-59); BUN Creatinine Ratio 7.4 (6-22); Bilirubin Total 0.5 mg/dL (0.2-1.3); Blood Urea Nitrogen 5 mg/dL (9-20); Calcium 7.9 mg/dL (8.4-10.2); Carbon Dioxide 28 mmol/L (22-32); Chloride 111 mmol/L (98-107); Estimated Glomerular Filt Rate > 60.0 mL/min (>60); Globulin 2.3 g/dL (1.7-4.1); Glucose 91 mg/dL (80-110); HEMOLYSIS 24 (0-50); Lipase 25 U/L (23-300); Potassium 3.4 mmol/L (3.4-5.1); Sodium 140 mmol/L (137-145); Total Protein 5.3 g/dL (6.3-8.2)
[2021-03-14 08:05] LABS: COVID19 - ADMIT (NP swab/PCR) Negative (Negative)
[2021-03-14] MEDS: HYDROMORPHONE 1 MG INJ IV ×2 (08:20→11:16)
[2021-03-14] MEDS: FLUTICASONE 120 SPRAY/16 GM SPRAY.SUSP NASAL (08:29)
[2021-03-14] MEDS: LORazepam 2 MG/ML INJ 0.5 MG IV ×2 (08:30→14:55)
[2021-03-14] MEDS: DICLOFENAC 1% GEL 100 GM 1 APPLIC TOP ×2 (08:33→20:33)
[2021-03-14] MEDS: ONDANSETRON 4 MG/2 ML INJ IV ×3 (08:37→13:46)
[2021-03-14] MEDS: diphenhydrAMINE 50 MG/ML VIAL 25 MG IV (10:49)
[2021-03-14] MEDS: DEXTROSE 50 % IN WATER 25 GM/50 ML SYRINGE IV (11:10)
--- NOTE | 2021-03-14 12:18 | PM.PREOP ---
Pre-operative Note COVID-19 COVID-19 status: Negative Result date/Date tested (Pos, Neg/Pending): 03/14/21 Interval Note History & Physical reviewed/Exam performed by Physician: Yes Changes to H&P: No ASA Class (for procedural sedation): II
[2021-03-14] MEDS: LACTATED RINGERS 1,000 ML 42 ML IV (12:20)
--- NOTE | 2021-03-14 13:25 | PM.OP.EC ---
Operative Date/Time/Diagnoses Date of procedure: 03/14/21 Time of procedure: 13:25 Pre-op diagnosis: Dyspepsia and abnormal imaging Post-op diagnosis: same Procedure & Clinicians Study performed: Esophagogastroduodenoscopy and colonoscopy Same procedure as scheduled: Yes Indications: Dyspepsia and abnormal imaging Surgeon: Ronaldo Velasco Procedure Notes SCOAP/Timeout: Yes Procedure in detail: Procedure in detail: A timeout was performed. Bite blocked was placed. Patient was positioned in a left lateral decubitus position. Sedation was administered by Dr. Joseph. Once the patient was sedated the endoscope was inserted through the bite block and passed through the esophagus and stomach and into the duodenum. No abnormalities were noted. Random biopsies were taken from the antrum to rule out Helicobacter pylori. Rest of the stomach was normal. The scope was retroflexed and no hiatal hernia was seen. Stomach was then decompressed and the scope was withdrawn into the esophagus. No abnormalities were noted. The scope was withdrawn from the patient. Next we repositioned the patient for a colonoscopy. A digital rectal exam was performed and was normal. The colonoscope was inserted and advanced to the cecum. The appendiceal orifice was identified and photographed. The scope was slowly withdrawn over greater than 6 minutes. There was moderate sigmoid diverticulosis. There were 2 small polyps of roughly 5 mm in the proximal sigmoid colon removed with cold snare and 3rd small polyp about 3 mm removed with forceps in the distal sigmoid colon. The scope was retroflexed in the rectum no abnormalities noted EBL: 2 mL Findings: Diverticulosis and sigmoid polyp Scope withdrawal time: 28 Sedation minutes: 43 Findings: diverticulosis and polyp Post-procedure Follow up: weeks Disposition: PACU
[2021-03-14] MEDS: ALBUTEROL 2.5 MG/3 ML NEB (ADULT) INH (13:46)
--- NOTE | 2021-03-14 13:55 | P.PN_ITS ---
Subjective Subjective Interval history: BRIEF HPI THIS IS A 66-YEAR-OLD MALE BEING TREATED FOR ABDOMINAL DISCOMFORT SECONDARY TO POSSIBLE BILIARY DYSKINESIA VERSUS CHRONIC CHOLECYSTITIS CHRONIC PANCREATITIS ALSO HAS BEEN REPORTED. TODAY PATIENT DENIES ANY NAUSEA OR VOMITING STILL AGREEABLE TO THE EGD AND COLONOSCOPY PLANNED BY SURGICAL TEAM DENIES ANY CHEST PAIN. NO SHORTNESS OF BREATH. CHEST PRESSURE REPORTED SOME MILD SWELLING TO THE UPPER EXTREMITIES AT THE IV SITE NO SIGNIFICANT ISSUES REPORTED BY NURSING OVERNIGHT Exam Vital Signs (past 8 hours): - 03/14/21 08:00 03/14/21 08:45 03/14/21 12:21 Temperature 97.7 F 97.9 F Pulse Rate 75 80 Respiratory Rate 18 16 Blood Pressure 138/77 154/82 H Pulse Oximetry 97 96 96 Oxygen Delivery Method Room Air Oxygen Flow Rate 0 Narrative Exam Narrative: NO ACUTE DISTRESS.? PATIENT IS ALERT ORIENTED X3. VITAL SIGNS STABLE HEAD ATRAUMATIC NORMOCEPHALIC NECK : SUPPLE WITHOUT ADENOPATHY NO CAROTID BRUITS EYE:? EOMI, PERRLA, NORMAL CONJUNCTIVA; NO JAUNDICE CHEST:? REGULAR RATE.? ? NO RUBS.? PMI IS NON DISPLACED.? NO MURMURS; NORMAL S1- S2 PULMONARY:? DECREASED BS OVER THE BASES.? MILD BIBASILAR CRACKLES NOTED; NO INCREASED DULLNESS TO PERCUSSION ABDOMEN:? SOFT.? NONTENDER.? NONDISTENDED.? BOWEL SOUNDS ARE PRESENT IN ALL 4 QUADRANTS.? NO MASS. EXTREMITIES: 1+ NONPITTING EDEMA TO BILATERAL FOR EXTREMITY.? NO CYANOSIS CLUBBING NOTED. NEURO:? CRANIAL NERVES 2-12 GROSSLY INTACT. NO FOCAL NEUROLOGICAL DEFICIT NOTED. MSK:? NORMAL RANGE OF MOTION FOR AGE.? NO JOINT EFFUSION. SKIN:? NORMAL FOR ETHNICITY; NO ECCHYMOSIS.? NO LESION. ? GOOD? TURGOR.; NO RASHES :? NORMAL EXTERNAL GENITALIA. PSYCH :? APPROPRIATE MOOD AND AFFECT.? ALERT AWAKE ORIENTED X3 Objective Labs Result Diagrams: 03/14/21 05:23 03/14/21 05:23 Labs: Laboratory Results - last 24 hr 03/13/21 03/14/21 03/14/21 17:45 05:23 05:23 WBC 3.7 L RBC 3.64 L Hgb 10.9 L Hct 32.2 L MCV 88.5 MCH 30.0 MCHC 33.9 RDW 14.3 Plt Count 215 Neut % (Auto) 63.5 Lymph % (Auto) 22.0 L [place] % (Auto) 9.7 Eos % (Auto) 4.0 Baso % (Auto) 0.8 Neut # (Auto) 2400 Lymph # (Auto) 800 L [place] # (Auto) 400 Eos # (Auto) 100 Baso # (Auto) 0 Sodium 140 Potassium 3.4 Chloride 111 H Carbon Dioxide 28 BUN 5 L Creatinine 0.68 Estimated GFR > 60.0 BUN/Creatinine Ratio 7.4 Glucose 91 Calcium 7.9 L Total Bilirubin 0.5 AST 21 ALT 12 Alkaline Phosphatase 41 Total Creatine Kinase 65 CK-MB (CK-2) TNP CK-MB (CK-2) Rel Index TNP Troponin I < 0.012 Total Protein 5.3 L Albumin 3.0 L Globulin 2.3 Albumin/Globulin Ratio 1.3 Lipase 25 D SARS-CoV-2 (PCR) 03/14/21 07:00 WBC RBC Hgb Hct MCV MCH MCHC RDW Plt Count Neut % (Auto) Lymph % (Auto) [place] % (Auto) Eos % (Auto) Baso % (Auto) Neut # (Auto) Lymph # (Auto) [place] # (Auto) Eos # (Auto) Baso # (Auto) Sodium Potassium Chloride Carbon Dioxide BUN Creatinine Estimated GFR BUN/Creatinine Ratio Glucose Calcium Total Bilirubin AST ALT Alkaline Phosphatase Total Creatine Kinase CK-MB (CK-2) CK-MB (CK-2) Rel Index Troponin I Total Protein Albumin Globulin Albumin/Globulin Ratio Lipase SARS-CoV-2 (PCR) Negative [facility] Medical History Acute dehydration Campylobacter enteritis Enteritis, enteropathogenic E. coli Exocrine pancreatic insufficiency Gastroenteritis GERD (gastroesophageal reflux disease) HTN (hypertension) Hyperlipidemia Insulin dependent diabetes mellitus with complications Narcolepsy Nausea vomiting and diarrhea Pancreatitis Paroxysmal atrial fibrillation Paroxysmal atrial fibrillation Peripheral vascular disease Psoriasis Surgical History H/O exploratory laparotomy History of femoropopliteal bypass Hx of biopsy Family History Father Colon cancer Mother Narcolepsy Grandmother Narcolepsy Social History household members: significant other Smoking Status: Former smoker alcohol intake: former Assessment & Plan Assessment & Plan narrative: ROBLEM LIST ACUTE ON CHRONIC PANCREATITIS.? MONITOR CLOSELY ? CHRONIC CHOLECYSTITIS.? SURGICAL TEAM ON BOARD. BILIARY ACUTE DYSKINESIS.? SURGICAL TEAM ON BOARD DIABETES TYPE 1 PER HISTORY.? STABLE TRIGGER PAROXYSMAL ATRIAL FIBRILLATION WITH RAPID VENTRICULAR RATE ON 03/13. HEART RATE IS BACK TO WITHIN ACCEPTABLE LIMITS HYPERTENSION FOR HISTORY HYPERLIPIDEMIA PER HISTORY GERD PER HISTORY HYPOKALEMIA.? ON REPLACEMENT PROTOCOL PLAN 03/14 PATIENT WENT INTO ATRIAL FIBRILLATION WITH A RAPID VENTRICULAR RATE ON 03/13 HEART RATE IS FAIRLY IMPROVED ON METOPROLOL NO SIGNIFICANT OTHER ISSUES OVERNIGHT BOWELS ARE FAIRLY STABLE AT THIS TIME AWAITING EGD AND COLONOSCOPY POSSIBLY TODAY WILL ALSO AWAIT FURTHER RECOMMENDATION FROM THE SURGICAL TEAM CONTINUE TO FOLLOW LABS DAILY STRICT BLOOD PRESSURE AND BLOOD SUGAR CONTROL ADDITIONAL MANAGEMENT PER CLINICAL COURSE DISCHARGE ONCE CLEARED BY THE SURGICAL TEAM 03/13 PLAN FOR COLONOSCOPY AND EGD THIS MORNING PATIENT HAD A GOOD RESULT FROM THE PREP OVERNIGHT LABS LOOK STABLE VITAL SIGNS ARE STABLE WELL PATIENT IS AGREEABLE TO THE PROCEDURES WILL CONTINUE TO MONITOR CLOSELY WILL FOLLOW POSTOPERATIVELY FOR RECOMMENDATIONS FROM THE SURGICAL TEAM IN REGARD TO POSSIBLE CHOLECYSTECTOMY PRIOR TO DISCHARGE ADDITIONAL MANAGEMENT PER CLINICAL COURSE DISCHARGE ONCE CLEARED BY THE SURGICAL TEAM 03/12 PATIENT HAS BEEN REFERRED TO SURGICAL TEAM FOR RECOMMENDATION AFTER THE HIDA REPORT A POSSIBLE CHOLECYSTECTOMY IS BEING DISCUSSED WITH PATIENT AND THE SURGICAL TEAM PATIENT TO UNDERGO FURTHER EVALUATION WITH COLONOSCOPY AN EGD IN THE MORNING PRIOR TO CONSIDER PROCEDURE HOWEVER CONTINUE TO FOLLOW LABS CLOSELY PATIENT WILL BE NPO OVERNIGHT IV FLUID WILL BE ORDERED TO MAINTAIN PROPER HYDRATION ADD KCL ADDICTIVE TO THE IV FLUID ADDITIONAL MANAGEMENT PER CLINICAL COURSE DISCHARGE FOR CLEARANCE FROM THE SURGICAL TEAM 03/11 HIDA SCAN DID NOT SHOW ANY SIGNIFICANT SIGNS WHICH WOULD? WORRISOME FOR? ACUTE CHOLECYSTITIS WILL DISCONTINUE ANTIBIOTICS FOR NOW VITAL SIGNS HAVE BEEN STABLE WITH NO SIGN OF TOXIC STATE OR? ACUTE ABDOMEN WILL CONSULT WITH GENERAL SURGERY FOR FURTHER RECOMMENDATIONS INDICATED FOLLOW LAB CLOSELY THE PATIENT IS STARTED ON CLEAR LIQUID DIET WHICH WILL BE ADVANCED TOLERATED ADDITIONAL MANAGEMENT PER CLINICAL COURSE PROGNOSIS IS GUARDED Time Spent With Patient Critical Care time: I spent a total of [] minutes of critical care time on this patient's care tod ay; this time is exclusive of procedural time. Quality VTE Deep Vein Thrombosis/Pulmonary Embolism Present on Admission: No
--- NOTE | 2021-03-14 14:19 | SUR.PHASEI ---
1330 When pt came out of OR he was dusky and lungs were tight and course. Talked to Dr Tracey and Albuteral treatment was ordered and given. After a few minutes came around to breathing easier and coughing well. Color improved.
[2021-03-14] MEDS: ONDANSETRON 4 MG ODT 8 MG SL (14:55)
[2021-03-14] MEDS: LIPASE/PROTEASE/AMYLASE 5/17/24 CAP 5 CAP PO (16:59)
[2021-03-14] MEDS: BUMETANIDE 1 MG/4 ML VIAL IV (17:05)
[2021-03-14] MEDS: SUCRALFATE 1 GM TABLET PO ×2 (17:07→20:25)
[2021-03-14] MEDS: ALBUTEROL/IPRATROPIUM 3 ML AMPUL INH (17:26)
--- NOTE | 2021-03-14 17:47 | PM.PN.1 ---
Subjective Subjective Date Patient Seen: 03/14/21 Time Patient Seen: 17:48 Interval history: No ulcers on EGD today and no sigmoid masses Exam Vital Signs (past 8 hours): - 03/14/21 11:30 03/14/21 12:21 03/14/21 13:28 Temperature 97.9 F 97.1 F L Pulse Rate 85 80 92 H Respiratory Rate 12 16 14 Blood Pressure 154/82 H 122/70 Pulse Oximetry 95 96 87 L 03/14/21 13:34 03/14/21 13:39 03/14/21 13:43 Temperature 97 F L Pulse Rate 103 H 96 H 82 Respiratory Rate 17 17 16 Blood Pressure 161/73 H 139/60 129/74 Pulse Oximetry 94 97 96 03/14/21 13:59 03/14/21 14:18 03/14/21 14:30 Temperature 97 F L 97.7 F 97.7 F Pulse Rate 84 85 83 Respiratory Rate 11 L 12 18 Blood Pressure 114/90 133/73 132/69 Pulse Oximetry 98 95 96 03/14/21 15:56 03/14/21 16:00 Temperature 97.8 F Pulse Rate 84 Respiratory Rate 17 Blood Pressure 138/76 Pulse Oximetry 94 94 Oxygen Delivery Method Room Air Oxygen Flow Rate 0 Objective Labs Result Diagrams: 03/14/21 05:23 03/14/21 05:23 Labs: Laboratory Results - last 24 hr 03/13/21 03/14/21 03/14/21 17:45 05:23 05:23 WBC 3.7 L RBC 3.64 L Hgb 10.9 L Hct 32.2 L MCV 88.5 MCH 30.0 MCHC 33.9 RDW 14.3 Plt Count 215 Neut % (Auto) 63.5 Lymph % (Auto) 22.0 L [place] % (Auto) 9.7 Eos % (Auto) 4.0 Baso % (Auto) 0.8 Neut # (Auto) 2400 Lymph # (Auto) 800 L [place] # (Auto) 400 Eos # (Auto) 100 Baso # (Auto) 0 Sodium 140 Potassium 3.4 Chloride 111 H Carbon Dioxide 28 BUN 5 L Creatinine 0.68 Estimated GFR > 60.0 BUN/Creatinine Ratio 7.4 Glucose 91 Calcium 7.9 L Total Bilirubin 0.5 AST 21 ALT 12 Alkaline Phosphatase 41 Total Creatine Kinase 65 CK-MB (CK-2) TNP CK-MB (CK-2) Rel Index TNP Troponin I < 0.012 Total Protein 5.3 L Albumin 3.0 L Globulin 2.3 Albumin/Globulin Ratio 1.3 Lipase 25 D SARS-CoV-2 (PCR) 03/14/21 07:00 WBC RBC Hgb Hct MCV MCH MCHC RDW Plt Count Neut % (Auto) Lymph % (Auto) [place] % (Auto) Eos % (Auto) Baso % (Auto) Neut # (Auto) Lymph # (Auto) [place] # (Auto) Eos # (Auto) Baso # (Auto) Sodium Potassium Chloride Carbon Dioxide BUN Creatinine Estimated GFR BUN/Creatinine Ratio Glucose Calcium Total Bilirubin AST ALT Alkaline Phosphatase Total Creatine Kinase CK-MB (CK-2) CK-MB (CK-2) Rel Index Troponin I Total Protein Albumin Globulin Albumin/Globulin Ratio Lipase SARS-CoV-2 (PCR) Negative [facility] Medical History Acute dehydration Campylobacter enteritis Enteritis, enteropathogenic E. coli Exocrine pancreatic insufficiency Gastroenteritis GERD (gastroesophageal reflux disease) HTN (hypertension) Hyperlipidemia Insulin dependent diabetes mellitus with complications Narcolepsy Nausea vomiting and diarrhea Pancreatitis Paroxysmal atrial fibrillation Paroxysmal atrial fibrillation Peripheral vascular disease Psoriasis Surgical History H/O exploratory laparotomy History of femoropopliteal bypass Hx of biopsy Family History Father Colon cancer Mother Narcolepsy Grandmother Narcolepsy Social History household members: significant other Smoking Status: Former smoker alcohol intake: former Assessment & Plan Assessment and plan (1) Chronic pancreatitis: Status: Acute Plan I told him he can follow up with me as outpatient if he wishes to discuss elective laparoscopic cholecystectomy for possible biliary dyskinesia Time Spent With Patient Critical Care time: I spent a total of [] minutes of critical care time on this patient's care today; this time is exclusive of procedural time. Quality VTE Deep Vein Thrombosis/Pulmonary Embolism Present on Admission: No
--- NOTE | 2021-03-14 19:46 | PC.NURSE ---
Pt off unit today for scope and colonoscopy from 1130 to approximately 1500 this afternoon. Bg 86 prior to arrival, tolerating clear liquids and advances to full liquid diet this evening. Experiencing some anxiety and SOB he believes from feeling puffy slight edema noted to hands , per request MD ordered bumex 1 mg with good effect, prn lorazepam administered with good effect. He denies n/v this evening and pain appears well controlled. LS clear, diminished in bases. No edema noted to BLE's.
[2021-03-14] MEDS: PRAVASTATIN 20 MG TABLET 80 MG PO (20:25)
[2021-03-14] MEDS: FAMOTIDINE 20 MG TABLET 40 MG PO (20:25)
[2021-03-14] MEDS: METOPROLOL IR 25 MG TABLET 12.5 MG PO (20:25)
[2021-03-14] MEDS: INSULIN LISPRO 100 UNIT/ML 3ML VIAL SUBCUT (20:28)
[2021-03-14] MEDS: OXYCODONE IR 10 MG TABLET PO (20:35)
[2021-03-14] MEDS: ACETAMINOPHEN 325 MG TABLET 650 MG PO (20:40)
[2021-03-14] MEDS: LIPASE/PROTEASE/AMYLASE 5/17/24 CAP PO (21:54)
[2021-03-15] VITALS: O2SAT 96
[2021-03-15 04:00] VITALS: O2SAT 96
[2021-03-15 05:52] VITALS: BP 114/64; PULSE 68; RESP 16; TEMP 36.7; O2SAT 95
[2021-03-15 07:27] VITALS: O2SAT 94
[2021-03-15 07:30] VITALS: O2SAT 96
--- NOTE | 2021-03-15 08:07 | P.DS_ITS ---
History of Present Illness History of Present Illness Date Patient Seen: 03/15/21 Chief complaint: Pancreatitis Narrative: History of Present Illness History of Present Illness Date Patient Seen:?03/07/21 Time Patient Seen:?03:06 Narrative: Jann Diehl is a 66-year-old gentleman with history of paroxysmal atrial fibrillation for which he is on dabigatran/plavix, type 1 diabetes, GERD, hypertension chronic pancreatitis, pancreatic insufficiency, and hyperlipidemia and recurrent history of pancreatitis typically controlled at home with pancreatic enzymes, oxycodone, Zofran and Phenergan.? This evening he ate around 430 in the afternoon and around 5 began having increasing abdominal pain and by time of presentation at 7 use in significant pain, pale, diaphoretic and dry heaving secondary to pain.? He denies chest pain or palpitations.? He states this pain absolutely reproduces his pancreatitis pain.? He states that he has not had recent illness,? fevers, cough, chest pain, SOB, vomiting, icterus, or diarrhea.? His chronic pancreatitis and has been well controlled managed over the last number of months.? No headaches or neurologic complaints.? Patient presented to the ED in proximal atrial fibrillation with RVR, and was successfully cardioverted. Patient originally presented to the ED with a BP of 103/64, HR 139, RR 27, O2 saturation 95% on room air.? Patient's EKG initially demonstrated atrial flutter with variable AV block, nonspecific T-wave abnormalities rate 141.? Again patient was successfully cardioverted in the ED and is currently in tachycardic sinus rhythm upon admit temp 97?, BP 97/55, still remains tachycardic with a heart rate of 111, RR 17, O2 saturation 98% on room air.? Patient does have a mildly elevated WBC at 11.7, with a left shift neutrophils 10,500, the rest of the patient's CBC and chemistry panel including liver enzymes WNL.? Glucose 128.? Troponins WNL, patient was positive for ketones 0.34.? Patient being admitted due to his continued tachycardia, and decreasing blood pressure, cause for elevated WBC unknown at this time no infectious process identified.? Patient admitted for acute on chronic pancreatitis in the setting of proximal atrial fibrillation with RVR. Discharge Providers Provider Date of admission: 03/07/21 02:47 Discharge Date: 03/15/21 Primary care physician: Eric Huang MD Consults: 03/07/21 05:32 Consult to Dietitian, Adult Routine Comment: Reason For Exam: nausea/vomiting Discharge provider: Lore Martinez DO Summary Hospital Course Discharge Diagnosis: ACUTE ON CHRONIC PANCREATITIS.? RESOLVED ? POSSIBLE CHRONIC CHOLECYSTITIS.? SURGICAL TEAM TO SEE OUTPATIENT BILIARY ACUTE DYSKINESIS.? SURGICAL TEAM TO SEE OUTPATIENT DIABETES TYPE 1 PER HISTORY.? STABLE BLOOD SUGAR HIATAL HERNIA. INCIDENTAL FINDING PER EGD. ON CARAFATE AND PEPCID DIVERTICULOSIS. INCIDENTAL FINDING. NO ACUTE TREATMENT INDICATED PAROXYSMAL ATRIAL FIBRILLATION. ON METOPROLOL, PRADAXA HYPERTENSION FOR HISTORY HYPERLIPIDEMIA PER HISTORY GERD PER HISTORY HYPOKALEMIA.? RESOLVED Hospital Course: THIS IS A PLEASANT 66-YEAR-OLD MALE ADMITTED TO THE HOSPITAL WITH ABDOMINAL PAIN DUE TO ACUTE ON CHRONIC PANCREATITIS. PATIENT HAS A HISTORY OF ATRIAL FIBRILLATION AND HAD A COUPLE EPISODE OF RAPID VENTRICULAR RATE IN THE HOSPITAL. IN ANY CASE, HIS HEART RATE IS FAIRLY CONTROLLED ON CURRENT REGIMEN. HE IS ON 12.5 MG OF METOPROLOL B.I.D.. HE IS ALSO ON PRADAXA FOR STROKE PREVENTION. HE IS NOT SHOWING ANY SIGN OF ACUTE HEMORRHAGE FROM THE PRADAXA AT THIS TIME. HE ALSO WAS SEEN BY GENERAL SURGERY. PATIENT HAD A HIDA SCAN TEST WHICH APPEARED TO SHOW WHAT COULD BE PERCEIVED CHRONIC CHOLECYSTITIS VERSUS POSSIBL E BILIARY DYSKINESIS. ON INITIAL ADMISSION WORKUP THERE WAS A QUESTIONABLE LESION THAT WAS SUSPECTED IN THE COLON FOR THE REASONS NOTED ABOVE, PATIENT WAS SEEN BY GENERAL SURGERY AND TAKEN TO THE OR FOR EGD AND COLONOSCOPY. NO SIGNIFICANT FINDINGS ON THOSE EXAMS IN REGARD TO HIS GALLBLADDER, PATIENT WILL NEED TO FOLLOW UP WITH SURGICAL TEAM OUTPATIENT AND BE SCHEDULED FOR AN ELECTIVE CHOLECYSTECTOMY IF HE SO CHOOSES. OTHERWISE HE HAS BEEN PROVING CLINICALLY. AT THIS TIME HE APPEARS TO BE CLOSE TO HIS BASELINE. HE IS TOLERATING ORAL INTAKE WELL. NO FEVER OR CHILLS REPORTED OVERNIGHT HE WILL BE DISCHARGED TO HOME. ADDITIONAL MANAGEMENT WILL BE DEFERRED TO HIS OUTPATIENT PROVIDERS. FOLLOW-UP WILL BE WITH PRIMARY CARE PHYSICIAN AND GENERAL SURGERY WHICH IN 1-3 WEEKS ACTIVITIES TOLERATED DIABETIC DIET Status at Discharge Cognitive/behavioral status at discharge: oriented Functional status at discharge: independent ambulation Overall status at discharge: patient is progressing back to baseline Time Spent with Patient Time spent: Greater than 30 minutes Exam Vital Signs (past 8 hours): - 03/15/21 04:00 03/15/21 05:52 03/15/21 07:27 Temperature 98.1 F Pulse Rate 68 Respiratory Rate 16 Blood Pressure 114/64 Pulse Oximetry 96 95 94 Oxygen Delivery Method Room Air Oxygen Flow Rate 0 Narrative Exam Narrative: NO ACUTE DISTRESS.? PATIENT IS ALERT ORIENTED X3. VITAL SIGNS STABLE HEAD ATRAUMATIC NORMOCEPHALIC NECK : SUPPLE WITHOUT ADENOPATHY NO CAROTID BRUITS EYE:? EOMI, PERRLA, NORMAL CONJUNCTIVA; NO JAUNDICE CHEST:? REGULAR RATE.? ? NO RUBS.? PMI IS NON DISPLACED.? NO MURMURS; NORMAL S1- S2 PULMONARY:? DECREASED BS OVER THE BASES.? MILD BIBASILAR CRACKLES NOTED; NO INCREASED DULLNESS TO PERCUSSION ABDOMEN:? SOFT.? NONTENDER.? NONDISTENDED.? BOWEL SOUNDS ARE PRESENT IN ALL 4 QUADRANTS.? NO MASS. EXTREMITIES:? 1+ NONPITTING EDEMA TO BILATERAL FOR EXTREMITY.? NO CYANOSIS CL UBBING NOTED. NEURO:? CRANIAL NERVES 2-12 GROSSLY INTACT. NO FOCAL NEUROLOGICAL DEFICIT NOTED. MSK:? NORMAL RANGE OF MOTION FOR AGE.? NO JOINT EFFUSION. SKIN:? NORMAL FOR ETHNICITY; NO ECCHYMOSIS.? NO LESION. ? GOOD? TURGOR.; NO RASHES :? NORMAL EXTERNAL GENITALIA. PSYCH :? APPROPRIATE MOOD AND AFFECT.? ALERT AWAKE ORIENTED X3 Objective Labs Result Diagrams: 03/14/21 05:23 03/14/21 05:23 [facility] Medical History Acute dehydration Campylobacter enteritis Enteritis, enteropathogenic E. coli Exocrine pancreatic insufficiency Gastroenteritis GERD (gastroesophageal reflux disease) HTN (hypertension) Hyperlipidemia Insulin dependent diabetes mellitus with complications Narcolepsy Nausea vomiting and diarrhea Pancreatitis Paroxysmal atrial fibrillation Paroxysmal atrial fibrillation Peripheral vascular disease Psoriasis Surgical History H/O exploratory laparotomy History of femoropopliteal bypass Hx of biopsy Family History Father Colon cancer Mother Narcolepsy Grandmother Narcolepsy Social History household members: significant other Smoking Status: Former smoker alcohol intake: former Discharge Plan Discharge Plan Patient Disposition: Home Discharge orders & Medications Prescriptions: New ipratropium-albuterol 0.5 mg-3 mg(2.5 mg base)/3 mL Solution For Nebulization 3 ml INH RTQ4HR PRN (Reason: Shortness Of Breath) Qty: 90 0RF metoprolol tartrate 25 mg Tablet 12.5 mg PO BID Qty: 60 0RF diphenhydramine HCl 12.5 mg/5 mL elixir 12.5 mg PO Q6H PRN (Reason: nausea and vomiting) Qty: 500 0RF sucralfate 1 gram Tablet 1 gm PO ACHS Qty: 240 0RF famotidine [Pepcid AC] 20 mg Tablet 40 mg PO BID Qty: 120 0RF lorazepam 0.5 mg Tablet 0.5 mg PO Q4HR PRN (Reason: Anxiety) Qty: 12 0RF ondansetron 4 mg Tablet,Disintegrating 4 mg sublingual Q8HR PRN (Reason: Nausea) Qty: 40 0RF oxycodone 10 mg Tablet 10 mg PO Q4H PRN (Reason: Pain, Severe (7-10)) Qty: 28 0RF bumetanide 0.5 mg tablet 0.5 mg PO DAILY PRN (Reason: edema) Qty: 30 0RF potassium chloride 20 mEq tablet extended release 20 meq PO DAILY PRN (Reason: DIRECTED) Qty: 30 0RF Rx Instructions: PLEASE TAKE ONE TABLET WHENEVER BUMEX HAS BEEN TAKEN tramadol 50 mg tablet 50 mg PO Q6H PRN (Reason: pain) Qty: 30 0RF gabapentin 300 mg capsule 300 mg PO DAILY Qty: 30 0RF Continued clopidogrel [Plavix] 75 mg Tablet 75 mg PO DAILY Qty: 0 0RF methylphenidate HCl 20 mg tablet 20 mg PO TID Qty: 90 0RF insulin lispro [Humalog U-100 Insulin] 100 unit/mL solution See Rx Instructions SUBCUT USEASDIRECTD 0RF Rx Instructions: 2-4 sliding scale SUBCUT use as directed; gentamicin 0.3 % drops 1 drp EYE-BOTH TID PRN (Reason: Blepharitis) Qty: 5 12RF Creon 24,000-76,000 -120,000 unit capsule,delayed release(DR/EC) 1 cap PO QID Qty: 120 12RF Rx Instructions: administer with meals and/or snacks prn sliding scale. 1 capsule for every 600 calories promethazine 25 mg suppository 25 mg [place] Q6H PRN (Reason: Nausea) 0RF cholecalciferol (vitamin D3) [Vitamin D3] 1,000 unit Capsule 3,000 unit PO DAILY 0RF Label Comments: i cannot swallow meds right now anyway acetaminophen [Pain Relief (acetaminophen)] 325 MG tablet 325 mg PO Q4HP PRN (Reason: Pain, Mild) 0RF Pradaxa 150 mg Capsule 150 mg PO BID 0RF pravastatin 80 mg Tablet 80 mg PO BEDTIME Qty: 0 0RF Rx Instructions: 1 tablet daily HS fluticasone propionate 50 mcg/actuation [place],Suspension 50 mcg intranasal DAILY Qty: 0 0RF Rx Instructions: 2 sprays in each nostril daily lisinopril 2.5 mg Tablet 2.5 mg PO DAILY 0RF Discontinued diclofenac sodium [Voltaren] 1 % gel 1 crys Topical QID PRN (Reason: osteoarthritis) Qty: 0 0RF ondansetron 4 mg tablet,disintegrating 4 mg PO Q6H PRN (Reason: Nausea) 0RF metoprolol tartrate 25 mg Tablet 12.5 mg PO BID 0RF ondansetron 8 mg tablet,disintegrating See Rx Instructions .ROUTE .COMPLEX PRN (Reason: Nausea) 0RF Rx Instructions: DISSOLVE 1 TABLET BY MOUTH THREE TIMES DAILY NEEDED Follow up/Referrals: Eric Huang MD [Primary Care Provider] - Diet/Activity/Treatments Diet: Carb-consistent/Diabetic, Low-fat, Low-sodium and Low-cholesterol Diet comment: GI SOFT Activity: TOLERATED Skin/Wound/Dressing Care Report to your healthcare provider any signs of infection, such as:: chills, fever and night sweats Discharge Data Primary Care Provider: Eric Huang Quality VTE Deep Vein Thrombosis/Pulmonary Embolism Present on Admission: No
[2021-03-15 08:34] VITALS: BP 126/69; PULSE 73; RESP 18; TEMP 37.5; O2SAT 96
[2021-03-15] MEDS: SUCRALFATE 1 GM TABLET PO (08:45)
[2021-03-15] MEDS: DICLOFENAC 1% GEL 100 GM 1 APPLIC TOP (08:47)
[2021-03-15] MEDS: LIPASE/PROTEASE/AMYLASE 5/17/24 CAP 5 CAP PO (08:47)
[2021-03-15] MEDS: FLUTICASONE 120 SPRAY/16 GM SPRAY.SUSP NASAL (08:47)
[2021-03-15] MEDS: OXYCODONE IR 10 MG TABLET PO (08:52)
[2021-03-15] MEDS: ONDANSETRON 4 MG/2 ML INJ IV (08:52)
[2021-03-15] MEDS: FAMOTIDINE 20 MG TABLET 40 MG PO (08:53)
[2021-03-15] MEDS: METOPROLOL IR 25 MG TABLET 12.5 MG PO (08:53)
[2021-03-15] MEDS: POTASSIUM CHLORIDE 20 MEQ TAB 40 MEQ PO (08:53)
--- NOTE | 2021-03-15 10:57 | PC.NURSE ---
Pt is dressed and ready for discharge home with Spouse. Went over d/c instructions with Pt and Spouse, discussed d/c meds, time of last dose, reviewed stroke education, monitoring blood sugar carefully, awareness about chronic condition and seeking medical assistance before it gets worse, drinking plenty of fluids to prevent constipation or dehydration, getting up slowly from bed or chair secondary to meds, and follow up. Pt denies further questions and was taken out via w/c by [employer] to POV with Spouse Yisel and all belongings.
== END 2021-03-15 11:02 | disposition home or self-care (01) | DRG 439 ==
LOC: ED 03-07 02:48 → AC 03-07 06:45
PROVIDERS: Hospitalist; Internal Medicine; Surgery; Admitting Provider Nurse Practitioner Family; Emergency Provider Emergency Medicine; Family Provider Emergency Medicine Emergency Medical Services; PCP Family Medicine; Referring Provider Emergency Medicine; Visit Provider Nurse Practitioner Family
PROC: 0DJD8ZZ Inspection of Lower Intestinal Tract, Via Natural or Artificial Opening Endoscopic (ICD-10-PCS; CPT 45378; principal; 2021-03-14 15:45)
PROC: 0DJ08ZZ Inspection of Upper Intestinal Tract, Via Natural or Artificial Opening Endoscopic (ICD-10-PCS; CPT 43235; 2021-03-14 15:45)
DX: K85.80 Other acute pancreatitis without necrosis or infection (principal); I48.92 Unspecified atrial flutter; K82.8 Other specified diseases of gallbladder; K86.1 Other chronic pancreatitis; K86.89 Other specified diseases of pancreas; I10 Essential (primary) hypertension; I48.0 Paroxysmal atrial fibrillation; E08.9 Diabetes mellitus due to underlying condition without complications; K21.9 Gastro-esophageal reflux disease without esophagitis; E78.5 Hyperlipidemia, unspecified; Z20.822 Contact with and (suspected) exposure to COVID-19; Z79.01 Long term (current) use of anticoagulants; Z79.4 Long term (current) use of insulin; Z87.891 Personal history of nicotine dependence
CPT/HCPCS: 36415; 36591; 36592; 71045; 71275; 74174; 74177; 76705; 78227; 80048; 80053; 80061; 80076; 81015; 82009; 82150; 82550; 82962; 83036; 83605; 83615; 83690; 83735; 83880; 84145; 84484; 85014; 85018; 85025; 85610; 87040; 87635; 92960; 93005; 93010; 93306; 94640; 94760; 96361; 96374; 96375; 99152; 99285; A9537; C9803; A9270; C9113; J0692; J0780; J1170; J1200; J1642; J1650; J1815; J2060; J2405; J2543; J2704; J2805; J2920; J3475; J7613; Q9967

== ENCOUNTER → 2021-05-27 10:49 | Outpatient (CLI) | payer OTHER, SELFPAY ==
[2021-03-07 03:45] VITALS: BMI 22.9
[2021-05-27 14:02] LABS: COVID19 -Nasal RAPID Negative (Negative)
== END ==
PROVIDERS: Family Provider Emergency Medicine Emergency Medical Services; PCP Family Medicine; Referring Provider Surgery; Visit Provider Surgery
DX: Z01.812 Encounter for preprocedural laboratory examination (principal); Z20.822 Contact with and (suspected) exposure to COVID-19
CPT/HCPCS: 87635; C9803

== ENCOUNTER 2021-05-30 12:14 | Day surgery (SDC) | payer OTHER, SELFPAY ==
[2021-03-07 03:45] VITALS: BMI 22.9
[2021-05-25 12:12] VITALS: BMI 23.1
[2021-05-30] VITALS (11 sets, daily range): BP systolic 116–139; BP diastolic 61–72; PULSE 62–85; RESP 10–18; TEMP 36.4–37; O2SAT 93–100; BMI 22.9
--- NOTE | 2021-05-30 | PATH_ITS ---
[facility] Accession Number: [id number] . 01 Material submitted: . gallbladder - GALLBLADDER . 02 Diagnosis: Gallbladder, Cholecystectomy: Gallbladder with cholesterolosis. MRV 06/02/2021 1402 Local . 02 Electronically signed: . Eulalia Murray MD, Pathologist NPI- [id number] . 01 Gross description: . Specimen is received in formalin labeled with the patient's name and gallbladder, is composed of an intact gallbladder stapled at the cystic duct margin measuring 7.0 x 3.0 x 2.0 cm. The serosal surface is lindo-nascimento and smooth. The hepatic bed is lindo-nascimento and slightly roughened. The gallbladder is opened to reveal a dark green, bile-stained mucosal surface, which is smooth. Discrete lesions are not identified. Gallstones are not identified. The wall thickness is 0.1 cm. Acquisition Professional sections are submitted as follows: Cassette A1 - cystic duct margin en face, inked blue, and market survey representative sections of the gallbladder. (SBG: [id number]) /FRR 06/01/2021 1753 Local . 02 Pathologist provided ICD-10: K81.1 . 02 CPT . 940314 Specimen Comment: A courtesy copy of this report has been sent to [phone] Performed at: 01 [facility] [address] [facility], [place], [place] [id number] MD Sj Estevez MD Phone: [phone] Performed at: 02 [facility] [address] [place], [place] [id number] MD Stephanie Yarbrough MD Phone: [phone]
[2021-05-30] MEDS: LACTATED RINGERS 1,000 ML 42 ML IV ×2 (13:44→16:17)
--- NOTE | 2021-05-30 14:49 | PM.PREOP ---
Pre-operative Note COVID-19 COVID-19 status: Negative Result date/Date tested (Pos, Neg/Pending): 05/26/21 Criteria for continued procedure: Expected advancement of disease process and Possibility delay results in more complex future surgery or treatment Interval Note History & Physical reviewed/Exam performed by Physician: Yes Changes to H&P: No ASA Class (for procedural sedation): II
[2021-05-30] MEDS: CEFAZOLIN 2 GM/20 ML SYRINGE IV (15:10)
--- NOTE | 2021-05-30 15:21 | SUR.OPER ---
Supine on padded OR bed, head on pillow, safety belt at thigh, bilateral arms secured on padded arm board <90 degrees abduction. Legs uncrossed. Padded footboard in place. Tape over blanket to secure lower legs. Gel pad placed under bilateral heels.
[2021-05-30] MEDS: BUPIVACAINE 0.5% (PF) VIAL 20 ML INJ (15:32)
[2021-05-30] MEDS: LIDOCAINE 1% W/EPI 20 ML INJ (15:39)
--- NOTE | 2021-05-30 16:39 | PM.OP.1 ---
Operative Date/Time/Diagnoses Date of procedure: 05/30/21 Time of procedure: 16:39 Pre-op diagnosis: Biliary dyskinesia Post-op diagnosis: same Procedure & Clinicians Procedure: Laparoscopic cholecystectomy Same procedure as scheduled: Yes Indications: Biliary dyskinesia Surgeon: Ronaldo Velasco Operative Notes Procedure in detail: The patient was given preoperative antibiotic. The patient was brought to the operating room, placed on the table in the supine position. General endotracheal anesthesia was induced. The abdomen was prepped and draped. A time-out was performed. We made a 1 cm infraumbilical incision. We dissected down to the base of the umbilical stalk using cautery. We grasped the umbilical stalk with a Vlad clamp to elevate the abdominal wall. We scored the fascia in the midline with cautery 1 cm. We pierced the peritoneum with a Peon clamp. The Padmini port was placed and the abdomen was insufflated to 15 mmHg. A 5 mm 30 degree laparoscopic was inserted. There was no evidence of any injury from the entry. Next, we placed 5 mm ports in the subxiphoid position and right upper quadrant at the midclavicular line and anterior axillary line. Patient was then positioned in reverse Trendelenburg and the table was tilted to the left. The gallbladder was grasped at the dome and retracted cephalad. There were some adhesions of mesenteric tissue to the infundibulum which were carefully dissected with cautery to allow full retraction of the gallbladder. We then dissected the cystic structures with a combination of hook cautery and blunt dissection. We obtained a critical view. We placed hemoclips on the cystic duct and 2 branches of the cystic artery and divided the cystic duct and arterial branches sharply between the clips. The gallbladder was then dissected off the liver and placed in a specimen retrieval bag. We irrigated the right upper quadrant and all the aspirate returned clear. We then removed the 5 mm ports under direct vision we removed the Padmini port. We then injected some local into the fascia and closed the fascia with 2 interrupted 0 Vicryl sutures. The skin incisions were closed with 4 Monocryl and Steri-Strips were applied. Band-Aids were applied over the Steri-Strips. EBL: 10 mL Specimen: Gallbladder Post-operative Condition: stable Disposition: PACU
[2021-05-30] MEDS: LORazepam 2 MG/ML INJ (16:48)
[2021-05-30] MEDS: fentaNYL 250 MCG/5 ML INJ IV ×2 (16:51→17:19)
--- NOTE | 2021-05-30 17:01 | SUR.PHASEI ---
Report to Jamilah MARCIAL
[2021-05-30] MEDS: PROMETHAZINE 25 MG SUPP PR (17:08)
[2021-05-30] MEDS: OXYCODONE IR 5 MG TABLET PO ×2 (17:23→18:03)
--- NOTE | 2021-05-30 17:33 | SUR.PHASEI ---
Dr. Cordoba spoke with pt at bedside.
[2021-05-30] MEDS: ACETAMINOPHEN 325 MG TABLET 650 MG PO (18:04)
--- NOTE | 2021-05-30 19:28 | SUR.PHASEII ---
Late entry: pt pain 09/02, medicated with 2 oxycodone and tylenol. Pt redy to go at 1815, Yisel called, available for berry picker. Assisted pt to dress, nausea resolved, pain tolerable taking sips of clears. Big bandaids remained c/d/i and pt left unit in stable condition.
== END 2021-05-30 18:35 | disposition home or self-care (01) ==
PROVIDERS: Family Provider Emergency Medicine Emergency Medical Services; PCP Family Medicine; Referring Provider Surgery; Visit Provider Surgery
PROC: 0FT44ZZ Resection of Gallbladder, Percutaneous Endoscopic Approach (ICD-10-PCS; CPT 47562; principal; 2021-05-30 14:30)
DX: K82.8 Other specified diseases of gallbladder (principal); Z87.891 Personal history of nicotine dependence
CPT/HCPCS: 47562; 82962; J0690; J2060; J2405; J2704; J2765; J3010

== ENCOUNTER 2021-06-02 12:50 | Observation (INO) | payer OTHER, SELFPAY ==
[2021-03-07 03:45] VITALS: BMI 22.9
[2021-06-02] VITALS (11 sets, daily range): BP systolic 91–153; BP diastolic 55–76; PULSE 94–106; RESP 18–105; TEMP 36.4–37.3; O2SAT 95–100; BMI 23.9
--- NOTE | 2021-06-02 13:13 | DI.RAD.S_ITS ---
PROCEDURE: XR CHEST 1V INDICATIONS: suspected sepsis TECHNIQUE: One view of the chest was acquired. COMPARISON: [facility], CR, XR CHEST 1V, 03/09/2021, 13:27. FINDINGS: Surgical changes and devices: None. Lungs and pleura: Lungs are clear. No pleural effusions or pneumothorax. Mediastinum: Mildly tortuous thoracic aorta is seen. Heart size is normal. Bones and chest wall: No suspicious bony lesions. Overlying soft tissues appear unremarkable. IMPRESSION: No acute cardiopulmonary pathology. Dictated by: Savage Early M.D. on 06/02/2021 at 14:04 Approved by: Savage Early M.D. on 06/02/2021 at 14:04
[2021-06-02] MEDS: ONDANSETRON 4 MG/2 ML INJ IV ×2 (13:38→18:06)
[2021-06-02] MEDS: SODIUM CHLORIDE 0.9% 1,000 ML 1000 ML IV (13:41)
[2021-06-02] MEDS: HYDROMORPHONE 1 MG INJ IV ×2 (14:08→14:22)
--- NOTE | 2021-06-02 14:12 | DI.US.S_ITS ---
PROCEDURE: US ABDOMEN LIMITED INDICATIONS: PAIN, VOMITING 3 DAYS POST [place] TECHNIQUE: Real-time scanning was performed of the abdominal and retroperitoneal organs, with image documentation. COMPARISON: [facility], , US ABDOMEN LIMITED, 03/10/2021, 15:32. FINDINGS: Liver: Visualized portion of liver shows normal echotexture. Gallbladder: Gallbladder is surgically absent. No gross abnormality is seen in gallbladder fossa. Biliary ducts: Intrahepatic bile ducts are non-dilated. Mildly prominent non diastolic sing bowel loops are noted in right flank. IMPRESSION: Gallbladder is surgically absent. No gross biliary ductal dilatation. No abnormality is seen in gallbladder fossa. Please correlate with CT of abdomen and pelvis from the same day for further evaluation. Dictated by: Savage Early M.D. on 06/02/2021 at 15:32 Approved by: Savage Early M.D. on 06/02/2021 at 15:33
--- NOTE | 2021-06-02 14:35 | DI.CT.S_ITS ---
PROCEDURE: CT ABDOMEN PELVIS W CON INDICATIONS: fever pain post sharad 3/7 TECHNIQUE: After the administration of IV contrast, axial sections were acquired from the lung bases to the pubic symphysis. Coronal and sagittal reformats were performed. For radiation dose reduction, the following was used: automated exposure control, adjustment of mA and/or kV according to patient size. COMPARISON: [facility], CT, CT ABDOMEN PELVIS W CON, 03/06/2021, 23:51. FINDINGS: Image quality: Excellent. Lung bases: There is mild dependent atelectasis bilaterally. Heart: Heart is normal in size. There is a minimal amount of pericardial fluid. ABDOMEN: Liver: No mass lesion. Gallbladder: The gallbladder is surgically absent. There is mild fat stranding with a small amount of fluid and gas in the gallbladder fossa without a discrete loculated fluid collection. Biliary ducts: There is mild biliary ductal dilatation. No calcified common duct stones identified. Pancreas: No pancreatic duct dilatation. No peripancreatic fat stranding or fluid collections. Spleen: Normal in size. Adrenal Glands: No adrenal nodules. Kidneys and Ureters: No hydronephrosis. Stomach and Bowel: Stomach and small bowel loops are normal in caliber and wall thickness. The appendix is normal in appearance. There is intraluminal fluid throughout the colon. There are a few short segments of mild colonic wall thickening in the transverse and sigmoid colon suggestive of a mild colitis. There is colonic diverticulosis without acute diverticulitis. Peritoneum: No abnormal intraperitoneal fluid. No free air. Ventral Wall: No hernia. Abdominal Nodes: No retroperitoneal or mesenteric adenopathy by size criteria. Vessels: Aorta and inferior vena cava are normal in size. PELVIS: Pelvic Organs: Unremarkable. Bladder: Unremarkable. Pelvic Nodes: No enlarged lymph nodes. Miscellaneous: No inguinal hernias are seen. Bones: Visualized osseous structures demonstrate no suspicious focal lesions. IMPRESSION: 1. Small amount of fluid and gas in the gallbladder fossa with mild fat stranding consistent with postsurgical changes from recent cholecystectomy. No discrete loculated fluid collection to suggest an abscess. A bile leak cannot be fully excluded but is considered less likely in the absence of subhepatic free fluid. If there is persistent clinical suspicion for a biloma, further evaluation may be obtained with a HIDA scan. 2. Mild biliary ductal dilatation without a discrete calcified common duct stone identified. The findings are nonspecific and may reflect reservoir effect from cholecystectomy. 3. Scattered short segments of mild colonic wall thickening in the transverse and sigmoid colon suggestive of a mild colitis. Dictated by: Sj Rankin M.D. on 06/02/2021 at 16:18 Approved by: Sj Rankin M.D. on 06/02/2021 at 16:25
[2021-06-02 14:37] LABS: Add Manual Diff / Slide Review NO; Basophils Absolute Auto 0 /uL (0-100); Basophils Percent Auto 0.1 % (0-2); Eosinophils Absolute Auto 100 /uL (0-450); Eosinophils Percent Auto 0.4 % (2-4); Hematocrit 46.6 % (41-53); Hemoglobin 15.1 g/dL (13.5-17.5); Lymphocytes Absolute Auto 300 /uL (1100-4500); Lymphocytes Percent Auto 2.3 % (25-40); Mean Corpuscular HGB Conc 32.5 % (30-36); Mean Corpuscular Hemoglobin 29.7 PG (26-34); Mean Corpuscular Volume 91.6 fL (80-100); Monocytes Absolute Auto 800 /uL (0-900); Monocytes Percent Auto 5.6 % (3-14); Neutrophils Absolute Auto 13300 /uL (1500-7000); Neutrophils Percent Auto 91.6 % (50-75); Platelet Count 303 X10^3/uL (150-400); Red Blood Cell Count 5.09 X10^6/uL (4.5-5.9); Red Cell Distribution Width 14.7 % (11.6-14.8); White Blood Cell Count 14.5 X10^3/uL (4.5-11.0)
[2021-06-02] MEDS: methylPREDNISolone 125 MG/2 ML VIAL IV (14:38)
[2021-06-02] MEDS: diphenhydrAMINE 50 MG/ML VIAL 25 MG IV (14:38)
--- NOTE | 2021-06-02 14:58 | PC.NURSE ---
Pt is a difficult stick for IV access and blood. IV access obtained but unable to pull sufficient blood from site. ob scrub tech attempted to draw blood without success. DI Nurse unavailable today. Blood for CBC and Lactate obtained by Dr. Murillo utilizing ultrasound.
[2021-06-02 15:06] LABS: Lactate (Lactic Acid) 4.6 mmol/L (0.7-2.1)
--- NOTE | 2021-06-02 15:45 | ED_ITS ---
HPI - Nausea/Vomiting/Diarrhea General Chief complaint: Nausea/Vomiting/Diarrhea Stated complaint: Vomiting, Post Surgery Time Seen by Provider: 06/02/21 14:12 Source: patient and family Mode of arrival: Ambulatory History of Present Illness HPI Narrative: Patient is a 66-year-old male status post cholecystectomy on May 30 presenting today with fever increased abdominal pain. He has a history of chronic abdominal pain will chronic nausea chronic diarrhea along with chronic pancreatitis. He developed a fever of 102 as of this morning. And very intent abdominal pain. He is afebrile here in the emergency department has obvious r igors in is extremely painful in his abdomen. He denies any chest pain cough or shortness of breath. He has had multiple episodes of diarrhea and vomiting in the emergency department. He says that actually is not new. Related Data Home Medications Medication Instructions Recorded Confirmed clopidogrel 75 mg tablet (Plavix) 75 mg PO DAILY #0 04/15/08 05/30/21 acetaminophen 325 mg tablet (Pain 500 mg PO Q4HP PRN 09/25/17 05/30/21 Relief (acetaminophen)) cholecalciferol (vitamin D3) 25 3,000 unit PO DAILY 09/25/17 05/30/21 mcg (1,000 unit) capsule (Vitamin D3) dabigatran etexilate 150 mg 150 mg PO BID 03/24/18 05/30/21 capsule (Pradaxa) pravastatin 80 mg tablet 80 mg PO BEDTIME #0 02/13/19 05/30/21 lisinopril 2.5 mg tablet 2.5 mg PO DAILY 04/28/19 05/30/21 insulin lispro 100 unit/mL See Rx Instructions SUBCUT 03/15/20 05/30/21 subcutaneous solution (Humalog USEASDIRECTD U-100 Insulin) promethazine 25 mg rectal 25 mg WI Q6H PRN 06/17/20 05/30/21 suppository azelastine 2 spray INTRANASAL BID 05/30/21 05/30/21 oxycodone 10 mg tablet 5 mg PO Q4H PRN 05/30/21 05/30/21 Previous Rx's Medication Instructions Recorded gentamicin 0.3 % eye drops 1 drp EYE-BOTH TID PRN #5 ml 03/15/20 [id number] 1 cap PO QID #120 cap 03/15/20 24,000-76,000-120,000 unit capsule,delayed rel (Creon) diphenhydramine HCl 12.5 mg/5 mL 12.5 mg (5 mL) PO Q6H PRN #500 ml 03/15/21 oral elixir metoprolol tartrate 25 mg tablet 12.5 mg PO BID #60 tab 03/15/21 ondansetron 4 mg disintegrating 4 mg SUBLINGUAL Q8HR PRN #40 tab 03/15/21 tablet potassium chloride 20 mEq 20 meq PO DAILY PRN #30 tab 03/15/21 tablet,extended release sucralfate 1 gram tablet 1 gm PO ACHS #240 tab 03/15/21 methylphenidate HCl 20 mg tablet 20 mg PO TID #90 ea 05/09/21 hydrocodone 5 mg-acetaminophen 325 1 tab PO Q8H PRN #10 tab 05/30/21 mg tablet Allergies Allergy/AdvReac Type Severity Reaction Status Date / Time Iodine and Iodide Containing Allergy Severe Anaphylaxis Verified 05/30/21 12:46 Produc [IODINE AND IODIDE CONTAINING PRODUC] Sulfa (Sulfonamide Allergy Severe Anaphylaxis Verified 05/30/21 12:46 Antibiotics) [SULFA (SULFONAMIDE ANTIBIOTICS)] gabapentin AdvReac Intermediate Dizziness Verified 05/30/21 12:49 [id number]-[id number]-[id number] Reductase AdvReac Intermediate Verified 05/30/21 12:49 Inhibitor metformin AdvReac Mild Verified 05/30/21 12:47 Review of Systems Review of Systems Narrative: GENERAL: See HPI HEENT: Denies sinus pain, ear pain, sore throat, difficulty swallowing, neck pain RESPIRATORY: Denies dyspnea, cough, wheezing, hemoptysis, sputum. CARDIOVASCULAR: Denies chest pain, palpitations, orthopnea, edema GASTROINTESTINAL: See HPI : Denies dysuria, frequency, incontinence, hematuria, urinary retention, flank pain. MUSCULOSKELETAL: Denies weakness, joint pain, or bony pain SKIN: No rash, no erythema, no pruritus NEUROLOGIC: Denies weakness, dizziness, headache, numbness, change in speech, confusion PSYCHIATRIC: No concerning psychosocial issues. 12 point review of systems is negative except for those stated above and HPI Patient History Medical History Acute dehydration Campylobacter enteritis Claudication in peripheral vascular disease Enteritis, enteropathogenic E. coli Exocrine pancreatic insufficiency Gastroenteritis GERD (gastroesophageal reflux disease) History of cardioversion (03/07/21) HTN (hypertension) Hyperlipidemia Insulin dependent diabetes mellitus with complications Narcolepsy Nausea vomiting and diarrhea Pancreatic endocrine tumor Pancreatitis Paroxysmal atrial fibrillation Paroxysmal atrial fibrillation Peripheral vascular disease Psoriasis Surgical History H/O exploratory laparotomy History of epididymectomy History of femoropopliteal bypass Hx of biopsy Family History Father Colon cancer Mother Narcolepsy Grandmother Narcolepsy Social History household members: significant other Smoking Status: Former smoker alcohol intake: former Smoking Status: Former smoker alcohol intake frequency: 0-2 drinks per day Substance Use Type: marijuana Exam Initial Vital Signs Initial Vital Signs: Vital Signs Pulse Rate 106 H 06/02/21 13:09 Respiratory Rate 105 H 06/02/21 13:09 Blood Pressure 135/76 06/02/21 13:09 Pulse Oximetry 100 06/02/21 13:09 GENERAL: 66-year-old male mottled shaking his appears ill HEENT: Head atraumatic,EOMI, pupils reactive, face symmetric, moist mucous membranes CARDIOVASCULAR: Regular rate and rhythm without murmurs, rubs or gallops. RESPIRATORY: Breath sounds equal bilaterally, no wheezes rales or rhonchi. ABDOMEN: Diffusely tender abdomen incision sites appear clean and dry EXTREMITIES: Normal range of motion, no clubbing or edema. Neurovascularly intact NEUROLOGICAL: Alert and oriented x4. SKIN: Warm, dry, no laceration, no petechiae, no rashes or lesions. Course Orders Ordered: ED Orders 06/02/21 13:13 XR chest 1V Stat EKG-12 Lead Stat RT Consult Eval and Treat NOW 06/02/21 14:12 US abdomen limited Stat 06/02/21 14:30 Complete Blood Count AUTO DIFF Stat Lactate (Lactic Acid) Stat 06/02/21 14:35 CT abdomen pelvis w con Stat 06/02/21 15:40 Blood Culture Stat Comprehensive Metabolic Panel Stat Lipase Stat Procalcitonin Stat 06/02/21 15:42 Lactate (Lactic Acid) Stat 06/02/21 16:36 UA Complete [Urinalysis and Microscopic] Stat 06/02/21 16:55 Education, smoking cessation ONGOING 06/02/21 17:09 COVID19 -Nasal swab/Pre-Proc Stat 06/03/21 Complete Blood Count AUTO DIFF Routine Comprehensive Metabolic Panel Routine Magnesium Routine Phosphorous Routine Hydrocodone Bitart/Acetaminophen (Hydrocodone/Acet 10/325 Tablet) 1 tab PO Q4HR PRN PRN Reason: Pain, Severe (7-10) Last Admin: 06/02/21 18:31 Dose: 1 tab Documented by: LAUREN Hydromorphone HCl (Hydromorphone 0.5 Mg Inj) 0.5 mg IV Q4H PRN PRN Reason: Breakthrough pain only (8-10) Lactated Ringer's (Lactated Ringers) 1,000 mls @ 120 mls/hr IV CONT KATHY Last Admin: 06/02/21 18:12 Dose: 120 mls/hr Documented by: LAUREN Naloxone HCl (Naloxone 0.4 Mg/Ml Vial) 0.2 mg IV Q2MIN PRN PRN Reason: Opiate Reversal Ondansetron HCl (Ondansetron 4 Mg/2 Ml Inj) 4 mg IV Q6HR KATHY Last Admin: 06/02/21 18:06 Dose: 4 mg Documented by: LAUREN Discontinued Medications Diphenhydramine HCl (Diphenhydramine 50 Mg/Ml Vial) 25 mg IV NOW ONE Stop: 06/02/21 14:36 Last Admin: 06/02/21 14:38 Dose: 25 mg Documented by: LIZZETTE Hydromorphone HCl (Hydromorphone 1 Mg Inj) 1 mg IV NOW ONE Stop: 06/02/21 14:06 Last Admin: 06/02/21 14:08 Dose: 1 mg Documented by: LIZZETTE Hydromorphone HCl (Hydromorphone 1 Mg Inj) 1 mg IV NOW ONE Stop: 06/02/21 14:19 Last Admin: 06/02/21 14:22 Dose: 1 mg Documented by: LIZZETTE Sodium Chloride (Normal Saline 0.9%) 1,000 mls @ 1,000 mls/hr IV BOLUS ONE Stop: 06/02/21 14:11 Last Infusion: 06/02/21 15:13 Dose: 0 mls/hr Documented by: Admin: 06/02/21 13:41 Dose: 1,000 mls/hr Documented by: NILES Piperacillin Sod/Tazobactam (Sod 4.5 gm/ Sodium Chloride) 100 mls @ 200 mls/hr IV NOW ONE Stop: 06/02/21 15:12 Last Infusion: 06/02/21 16:31 Dose: 0 mls/hr Documented by: Admin: 06/02/21 15:57 Dose: 200 mls/hr Documented by: NILES Vancomycin HCl (Vancomycin) 1,250 mg in 250 mls @ 250 mls/hr IV NOW ONE Stop: 06/02/21 16:10 Last Infusion: 06/02/21 17:49 Dose: 0 mls/hr Documented by: Admin: 06/02/21 16:37 Dose: 250 mls/hr Documented by: NILES Methylprednisolone (Methylprednisolone 125 Mg/2 Ml Vial) 125 mg IV NOW ONE Stop: 06/02/21 14:36 Last Admin: 06/02/21 14:38 Dose: 125 mg Documented by: LIZZETTE Ondansetron HCl (Ondansetron 4 Mg/2 Ml Inj) 4 mg IV NOW ONE Stop: 06/02/21 13:05 Last Admin: 06/02/21 13:38 Dose: 4 mg Documented by: NILES Vital Signs Vital signs: Vital Signs - 8 hr 06/02/21 13:09 06/02/21 14:05 06/02/21 14:24 Temperature 97.5 F L 98.9 F Pulse Rate 106 H Respiratory Rate 105 H Blood Pressure 135/76 Pulse Oximetry 100 06/02/21 16:07 06/02/21 16:30 06/02/21 16:41 Temperature Pulse Rate 106 H 104 H 102 H Respiratory Rate Blood Pressure 153/66 H 107/62 Pulse Oximetry 98 95 96 06/02/21 17:00 Temperature Pulse Rate 102 H Respiratory Rate Blood Pressure Pulse Oximetry 96 MDM - Nausea/Vomiting/Diarrhea Lab Data Result diagrams: 06/02/21 14:30 06/02/21 15:40 Labs: Lab Results 06/02/21 06/02/21 06/02/21 Range/Units 14:30 14:30 15:40 WBC 14.5 H (4.5-11.0) X10^3/uL RBC 5.09 (4.5-5.9) X10^6/uL Hgb 15.1 (13.5-17.5) g/dL Hct 46.6 (41-53) % MCV 91.6 (80-100) fL MCH 29.7 (26-34) PG MCHC 32.5 (30-36) % RDW 14.7 (11.6-14.8) % Plt Count 303 (150-400) X10^3/uL Neut % (Auto) 91.6 H (50-75) % Lymph % (Auto) 2.3 L (25-40) % [place] % (Auto) 5.6 (3-14) % Eos % (Auto) 0.4 L (2-4) % Baso % (Auto) 0.1 (0-2) % Neut # (Auto) 19214 H (8157-6449) /uL Lymph # (Auto) 300 L (5225-3080) /uL [place] # (Auto) 800 (0-900) /uL Eos # (Auto) 100 (0-450) /uL Baso # (Auto) 0 (0-100) /uL Sodium 139 (137-145) mmol/L Potassium 3.6 (3.4-5.1) mmol/L Chloride 106 (98-107) mmol/L Carbon Dioxide 28 (22-32) mmol/L BUN 7 L (9-20) mg/dL Creatinine 0.68 (0.66-1.25) mg/dL Estimated GFR > 60.0 (>60) mL/min BUN/Creatinine Ratio 10.3 (6-22) Glucose 103 (80-110) mg/dL Lactate 4.6 H* (0.7-2.1) mmol/L Calcium 8.9 (8.4-10.2) mg/dL Total Bilirubin 0.7 (0.2-1.3) mg/dL AST 42 (17-59) IU/L ALT 27 (<50) IU/L Alkaline Phosphatase 59 (38-126) U/L Total Protein 7.2 (6.3-8.2) g/dL Albumin 4.4 (3.5-5.0) g/dL Globulin 2.8 (1.7-4.1) g/dL Albumin/Globulin Ratio 1.6 (1.0-2.8) Lipase 37 (23-300) U/L Procalcitonin 32.8 H (<0.5) ng/mL SARS-CoV-2 (PCR) (Negative) 06/02/21 06/02/21 06/02/21 Range/Units 15:42 16:55 17:09 WBC (4.5-11.0) X10^3/uL RBC (4.5-5.9) X10^6/uL Hgb (13.5-17.5) g/dL Hct (41-53) % MCV (80-100) fL MCH (26-34) PG MCHC (30-36) % RDW (11.6-14.8) % Plt Count (150-400) X10^3/uL Neut % (Auto) (50-75) % Lymph % (Auto) (25-40) % [place] % (Auto) (3-14) % Eos % (Auto) (2-4) % Baso % (Auto) (0-2) % Neut # (Auto) (2251-3383) /uL Lymph # (Auto) (5241-0294) /uL [place] # (Auto) (0-900) /uL Eos # (Auto) (0-450) /uL Baso # (Auto) (0-100) /uL Sodium (137-145) mmol/L Potassium (3.4-5.1) mmol/L Chloride (98-107) mmol/L Carbon Dioxide (22-32) mmol/L BUN (9-20) mg/dL Creatinine (0.66-1.25) mg/dL Estimated GFR (>60) mL/min BUN/Creatinine Ratio (6-22) Glucose (80-110) mg/dL Lactate 1.9 3.8 H (0.7-2.1) mmol/L Calcium (8.4-10.2) mg/dL Total Bilirubin (0.2-1.3) mg/dL AST (17-59) IU/L ALT (<50) IU/L Alkaline Phosphatase (38-126) U/L Total Protein (6.3-8.2) g/dL Albumin (3.5-5.0) g/dL Globulin (1.7-4.1) g/dL Albumin/Globulin Ratio (1.0-2.8) Lipase (23-300) U/L Procalcitonin (<0.5) ng/mL SARS-CoV-2 (PCR) Negative (Negative) Point of Care Testing Glucose POC 80 Imaging Data US - abdomen: Radiologist's Impression: PROCEDURE:? US ABDOMEN LIMITED ? INDICATIONS:? PAIN, VOMITING 3 DAYS POST SAL[place] ? TECHNIQUE:? Real-time scanning was performed of the abdominal and retroperitoneal organs, with image documentation.? ? COMPARISON:? [facility], US, US ABDOMEN LIMITED, 03/10/2021, 15:32. ? FINDINGS:? ? Liver:? Visualized portion of liver shows normal echotexture. ? Gallbladder:? Gallbladder is surgically absent.? No gross abnormality is seen in gallbladder fossa. ? Biliary ducts:? Intrahepatic bile ducts are non-dilated.? ? Mildly prominent non diastolic sing bowel loops are noted in right flank. ? IMPRESSION:? Gallbladder is surgically absent.? No gross biliary ductal dilatation.? No abnormality is seen in gallbladder fossa.? Please correlate with CT of abdomen and pelvis from the same day for further evaluation. ? ? ? Dictated by: Savage Early M.D. on 06/02/2021 at 15:32 ? ? CT scan - abdomen/pelvis: Radiologist's Impression: PROCEDURE:? CT ABDOMEN PELVIS W CON ? INDICATIONS:? fever pain post salena 05/30 ? TECHNIQUE:? After the administration of IV contrast, axial sections were acquired from the lung bases to the pubic symphysis.? Coronal and sagittal reformats were performed.? For radiation dose reduction, the following was used:? automated exposure control, adjustment of mA and/or kV according to patient size. ? COMPARISON:? [facility], CT, CT ABDOMEN PELVIS W CON, 03/06/2021, 23:51. ? FINDINGS:? Image quality:? Excellent.? ? Lung bases:? There is mild dependent atelectasis bilaterally.? ? Heart:? Heart is normal in size.? There is a minimal amount of pericardial fluid. ? ? ABDOMEN: Liver:? No mass lesion. Gallbladder:? The gallbladder is surgically absent.? There is mild fat stranding with a small amount of fluid and gas in the gallbladder fossa without a discrete loculated fluid collection. Biliary ducts:? There is mild biliary ductal dilatation.? No calcified common duct stones identified. Pancreas:? No pancreatic duct dilatation.? No peripancreatic fat stranding or fluid collections.? ? Spleen:? Normal in size.? ? Adrenal Glands:? No adrenal nodules.? ? Kidneys and Ureters:? No hydronephrosis.? ? ? Stomach and Bowel:? Stomach and small bowel loops are normal in caliber and wall thickness.? The appendix is normal in appearance.? There is intraluminal fluid throughout the colon.? There are a few short segments of mild colonic wall thickening in the transverse and sigmoid colon suggestive of a mild colitis.? There is colonic diverticulosis without acute diverticulitis.? Peritoneum:? No abnormal intraperitoneal fluid.? No free air.? ? Ventral Wall: ? No hernia.? Abdominal Nodes:? No retroperitoneal or mesenteric adenopathy by size criteria.? Vessels:? Aorta and inferior vena cava are normal in size.? ? PELVIS: Pelvic Organs:? Unremarkable.? ? Bladder:? Unremarkable.? ? Pelvic Nodes: No enlarged lymph nodes.? Miscellaneous: No inguinal hernias are seen. ? ? ? Bones:? Visualized osseous structures demonstrate no suspicious focal lesions. ? IMPRESSION:? ? 1. Small amount of fluid and gas in the gallbladder fossa with mild fat stranding consistent with postsurgical changes from recent cholecystectomy.? No discrete loculated fluid collection to suggest an abscess.? A bile leak cannot be fully excluded but is considered less likely in the absence of subhepatic free fluid.? If there is persistent clinical suspicion for a biloma, further evaluation may be obtained with a HIDA scan. ? 2. Mild biliary ductal dilatation without a discrete calcified common duct stone identified.? The findings are nonspecific and may reflect reservoir effect from cholecystectomy. ? 3. Scattered short segments of mild colonic wall thickening in the transverse and sigmoid colon suggestive of a mild colitis. ? ? Dictated by: Sj Rankin M.D. on 06/02/2021 at 16:18 ? ? ECG Data Interpretation: Normal sinus rhythm rate 102 WI interval 138 QRS 104 QTC 460 prior EKG shows atrial fibrillation MDM Narrative Medical decision making narrative: Patient is an extremely hard IV start. Multiple attempts to get blood and IV. I actually did finally get blood with ultrasound guidance. CT and ultrasound were done prior to all blood work results due to concern for postoperative complication. Patient initially looks quite ill with mottling rigors and severe pain. He is found have leukocytosis of 14 elevated lactate of 4.2 and elevated pro tyrel citonin of 32.8, her previous procalcitonin were also elevated in about ranges well. Concern is that had fever of 102 he is postoperative and probable infection. He has not urinated in the emergency department but has been given antibiotics. Ultrasound and CT not show any complication from the surgery. He has chronic ongoing diarrhea and vomiting according to the patient. Patient's clinical presentation improved significantly with IV fluids and pain medication. He is shaking his color improved lactic acid actually improved as well. Dr. Velasco updated patient's symptoms and test results and ED to seen evaluated patient. Agrees with observation. Discharge Plan Departure Patient Disposition: Admitted as Observation Clinical Impression: Sepsis, Abdominal pain Admit Date/Time: 06/02/21 17:16 Admit Provider: Ronaldo Velasco
[2021-06-02] MEDS: PIPERACILLIN/TAZO 4.5 GM in SODIUM CHLORIDE 0.9% 100 ML 200 ML IV (15:57)
[2021-06-02 16:21] LABS: Alanine Aminotransferase 27 IU/L (<50); Albumin 4.4 g/dL (3.5-5.0); Albumin Globulin Ratio 1.6 (1.0-2.8); Alkaline Phosphatase 59 U/L (38-126); Aspartate Aminotransferase 42 IU/L (17-59); BUN Creatinine Ratio 10.3 (6-22); Bilirubin Total 0.7 mg/dL (0.2-1.3); Blood Urea Nitrogen 7 mg/dL (9-20); Calcium 8.9 mg/dL (8.4-10.2); Carbon Dioxide 28 mmol/L (22-32); Chloride 106 mmol/L (98-107); Estimated Glomerular Filt Rate > 60.0 mL/min (>60); Globulin 2.8 g/dL (1.7-4.1); Glucose 103 mg/dL (80-110); HEMOLYSIS < 15 (0-50); Lipase 37 U/L (23-300); Potassium 3.6 mmol/L (3.4-5.1); Sodium 139 mmol/L (137-145); Total Protein 7.2 g/dL (6.3-8.2)
[2021-06-02 16:31] LABS: Reflexed Lactate in 2 Hours Y
[2021-06-02 16:37] LABS: Procalcitonin 32.8 ng/mL (<0.5)
[2021-06-02] MEDS: VANCOMYCIN 1,250 MG/250 ML PIGGYBACK 250 MG IV (16:37)
[2021-06-02 16:56] LABS: Lactate (Lactic Acid) 1.9 mmol/L (0.7-2.1)
--- NOTE | 2021-06-02 16:59 | PM.HP.1 ---
History of Present Illness History of Present Illness Date Patient Seen: 06/02/21 Time Patient Seen: 16:59 Chief complaint: Vomiting, Post Surgery Narrative: Alfredo is a 66-year-old man who had a laparoscopic cholecystectomy for biliary dyskinesia 3 days ago. Also has a history of chronic pancreatitis. He was doing well until this morning when after breakfast he started vomiting and had significant abdominal pain and diarrhea. He also had fevers and chills. In the emergency department he was noted to have tachycardia, leukocytosis and an elevated lactate. Lipase and LFTs were normal. CT scan showed the expected amount of fluid in the gallbladder fossa. After some fluid in the ER he is starting to feel a little bit better. Patient History Medical History Acute dehydration Campylobacter enteritis Claudication in peripheral vascular disease Enteritis, enteropathogenic E. coli Exocrine pancreatic insufficiency Gastroenteritis GERD (gastroesophageal reflux disease) History of cardioversion (03/07/21) HTN (hypertension) Hyperlipidemia Insulin dependent diabetes mellitus with complications Narcolepsy Nausea vomiting and diarrhea Pancreatic endocrine tumor Pancreatitis Paroxysmal atrial fibrillation Paroxysmal atrial fibrillation Peripheral vascular disease Psoriasis Surgical History H/O exploratory laparotomy History of epididymectomy History of femoropopliteal bypass Hx of biopsy Family & Social History Family History Father Colon cancer Mother Narcolepsy Grandmother Narcolepsy Social History: household members significant other Safety & Behavioral: Feels Safe in Current Yes Environment Been Physically Hurt or No Threatened By a Person Tobacco & Substance use: Tobacco type cigarettes Smoking Status Former smoker alcohol intake former alcohol intake frequency 0-2 drinks per day Substance Use Type marijuana Meds Home Medications and Allergies Home Medications Medication Instructions Recorded Confirmed Type clopidogrel 75 mg tablet (Plavix) 75 mg PO DAILY #0 04/15/08 05/30/21 History acetaminophen 325 mg tablet (Pain 500 mg PO Q4HP PRN 09/25/17 05/30/21 History Relief (acetaminophen)) cholecalciferol (vitamin D3) 25 3,000 unit PO DAILY 09/25/17 05/30/21 History mcg (1,000 unit) capsule (Vitamin D3) dabigatran etexilate 150 mg 150 mg PO BID 03/24/18 05/30/21 History capsule (Pradaxa) pravastatin 80 mg tablet 80 mg PO BEDTIME #0 02/13/19 05/30/21 History lisinopril 2.5 mg tablet 2.5 mg PO DAILY 04/28/19 05/30/21 History gentamicin 0.3 % eye drops 1 drp EYE-BOTH TID PRN #5 ml 03/15/20 05/25/21 Rx insulin lispro 100 unit/mL See Rx Instructions SUBCUT 03/15/20 05/30/21 History subcutaneous solution (Humalog USEASDIRECTD U-100 Insulin) lpvasz-lcautxuz-hqrvlrb 1 cap PO QID #120 cap 03/15/20 05/30/21 Rx 24,000-76,000-120,000 unit capsule,delayed rel (Creon) promethazine 25 mg rectal 25 mg [place] Q6H PRN 06/17/20 05/30/21 History suppository diphenhydramine HCl 12.5 mg/5 mL 12.5 mg (5 mL) PO Q6H PRN #500 ml 03/15/21 05/30/21 Rx oral elixir metoprolol tartrate 25 mg tablet 12.5 mg PO BID #60 tab 03/15/21 05/30/21 Rx ondansetron 4 mg disintegrating 4 mg SUBLINGUAL Q8HR PRN #40 tab 03/15/21 05/30/21 Rx tablet potassium chloride 20 mEq 20 meq PO DAILY PRN #30 tab 03/15/21 05/25/21 Rx tablet,extended release sucralfate 1 gram tablet 1 gm PO ACHS #240 tab 03/15/21 05/30/21 Rx methylphenidate HCl 20 mg tablet 20 mg PO TID #90 ea 05/09/21 05/30/21 Rx azelastine 2 spray INTRANASAL BID 05/30/21 05/30/21 History hydrocodone 5 mg-acetaminophen 325 1 tab PO Q8H PRN #10 tab 05/30/21 Rx mg tablet oxycodone 10 mg tablet 5 mg PO Q4H PRN 05/30/21 05/30/21 History Allergies Allergy/AdvReac Type Severity Reaction Status Date / Time Iodine and Iodide Containing Allergy Severe Anaphylaxis Verified 05/30/21 12:46 Produc [IODINE AND IODIDE CONTAINING PRODUC] Sulfa (Sulfonamide Allergy Severe Anaphylaxis Verified 05/30/21 12:46 Antibiotics) [SULFA (SULFONAMIDE ANTIBIOTICS)] gabapentin AdvReac Intermediate Dizziness Verified 05/30/21 12:49 Evtiric-HTB-VeA Reductase AdvReac Intermediate Verified 05/30/21 12:49 Inhibitor metformin AdvReac Mild Verified 05/30/21 12:47 Exam Vital Signs (past 8 hours): - 06/02/21 13:09 06/02/21 14:05 06/02/21 14:24 Temperature 97.5 F L 98.9 F Pulse Rate 106 H Respiratory Rate 105 H Blood Pressure 135/76 Pulse Oximetry 100 06/02/21 16:07 Temperature Pulse Rate 106 H Respiratory Rate Blood Pressure 153/66 H Pulse Oximetry 98 Oxygen Delivery Method Room Air Narrative Exam Narrative: He is alert and oriented and speaking in full sentences Surgical sites are clean dry and intact Abdomen is soft with minimal tenderness to palpation. Objective Labs Result Diagrams: 06/02/21 14:30 06/02/21 15:40 Labs: Laboratory Results - last 24 hr 06/02/21 06/02/21 06/02/21 14:30 14:30 15:40 WBC 14.5 H RBC 5.09 Hgb 15.1 Hct 46.6 MCV 91.6 MCH 29.7 MCHC 32.5 RDW 14.7 Plt Count 303 Neut % (Auto) 91.6 H Lymph % (Auto) 2.3 L [place] % (Auto) 5.6 Eos % (Auto) 0.4 L Baso % (Auto) 0.1 Neut # (Auto) 50036 H Lymph # (Auto) 300 L [place] # (Auto) 800 Eos # (Auto) 100 Baso # (Auto) 0 Sodium 139 Potassium 3.6 Chloride 106 Carbon Dioxide 28 BUN 7 L Creatinine 0.68 Estimated GFR > 60.0 BUN/Creatinine Ratio 10.3 Glucose 103 Lactate 4.6 H* Calcium 8.9 Total Bilirubin 0.7 AST 42 ALT 27 Alkaline Phosphatase 59 Total Protein 7.2 Albumin 4.4 Globulin 2.8 Albumin/Globulin Ratio 1.6 Lipase 37 Procalcitonin 32.8 H Assessment & Plan Assessment and plan (1) Abdominal pain: Problem details: persists, will continue to follow. Abdominal CT demonstrates diverticulosis but no diverticulitis Qualifiers: Abdominal location: generalized Qualified Code(s): R10.84 - Generalized abdominal pain Status: Acute Plan I suspect he had a reaction something he ate for breakfast this morning, possibly even some food poisoning. However since he is recently postop will admit for observation. We can give him IV fluid resuscitation. We will start a clear liquid diet and check labs again in the morning. If he is feeling much better in the morning and labs are all improved he can go home. Time Spent With Patient Critical Care time: I spent a total of [] minutes of critical care time on this patient's care today; this time is exclusive of procedural time.
[2021-06-02 17:29] LABS: Lactate 2HR (Lactic Acid Rflx) 3.8 mmol/L (0.7-2.1)
[2021-06-02 17:50] LABS: COVID19 -Nasal RAPID Negative (Negative)
[2021-06-02] MEDS: LACTATED RINGERS 1,000 ML 120 ML IV (18:12)
--- NOTE | 2021-06-02 18:23 | PC.NURSE ---
Day shift: Pt on unit from ED at approx 1815. He is A&Ox4. VS WNL. RA 98%. Upon arrival to AC unit he c/o nausea and was given Zofran per MAY. Oriented to room and call light. C/o ABD pain also. Hx urinary frequency. Tolerating SCD's. Encouraged to use call light. Urinal at bedside. Call light in reach. Pt's cell phone found in linen and Pt has that cell phone now.
[2021-06-02] MEDS: HYDROCODONE/ACET 10/325 TABLET 1 TAB PO (18:31)
--- NOTE | 2021-06-02 20:12 | DI.RAD.S_ITS ---
PROCEDURE: XR CHEST 1V INDICATIONS: PICC line placement verification. TECHNIQUE: One view of the chest was acquired. COMPARISON: [facility], CR, XR CHEST 1V, 06/02/2021, 13:41. FINDINGS: Surgical changes and devices: Right PICC is seen with catheter tip projecting over the right atrium. Lungs and pleura: Lungs are clear. No pleural effusions or pneumothorax. Mediastinum: Mediastinal contours appear normal. Heart size is normal. Bones and chest wall: No suspicious bony lesions. Overlying soft tissues appear unremarkable. IMPRESSION: Right PICC is seen with catheter tip projecting over the right atrium. Consider pulling the catheter back by approximately 3 cm to situate the tip at the superior cavoatrial junction. Dictated by: Branden Reyna M.D. on 06/02/2021 at 21:27 Approved by: Branden Reyna M.D. on 06/02/2021 at 21:28
[2021-06-03 00:08] VITALS: BP 92/44; PULSE 64; RESP 16; TEMP 36.3; O2SAT 95
[2021-06-03 01:11] VITALS: BP 93/53; PULSE 68
[2021-06-03] MEDS: HYDROCODONE/ACET 10/325 TABLET 1 TAB PO ×2 (02:24→10:48)
[2021-06-03 02:25] VITALS: BP 107/58; PULSE 68
[2021-06-03] MEDS: LACTATED RINGERS 1,000 ML 120 ML IV (02:25)
[2021-06-03 03:16] LABS: Appearance Urine UA CLEAR; Bilirubin Urine UA NEGATIVE (NEGATIVE); Color Urine UA YELLOW; Glucose Urine UA 1+ g/dL (Negative); Ketones Urine UA NEGATIVE (NEGATIVE); Leukocyte Esterase Urine UA NEGATIVE (NEGATIVE); Nitrite Urine UA NEGATIVE (Negative); Occult Blood Urine UA NEGATIVE (Negative); Protein Urine UA NEGATIVE (Negative); Urobilinogen Urine UA 0.2 E.U./dL (0.2)
[2021-06-03 03:45] LABS: Bacteria Urine None Seen; Culture Indicated Urine Cult Not Indicated; RBC Urine None Seen (0-5/HPF); WBC Urine None Seen (0-5/HPF)
[2021-06-03 05:39] LABS: Add Manual Diff / Slide Review NO; Basophils Absolute Auto 0 /uL (0-100); Basophils Percent Auto 0.4 % (0-2); Eosinophils Absolute Auto 0 /uL (0-450); Hematocrit 33.1 % (41-53); Hemoglobin 11.2 g/dL (13.5-17.5); Lymphocytes Absolute Auto 400 /uL (1100-4500); Lymphocytes Percent Auto 5.2 % (25-40); Mean Corpuscular HGB Conc 33.7 % (30-36); Mean Corpuscular Hemoglobin 30.3 PG (26-34); Mean Corpuscular Volume 89.6 fL (80-100); Monocytes Absolute Auto 500 /uL (0-900); Monocytes Percent Auto 6.1 % (3-14); Neutrophils Absolute Auto 6900 /uL (1500-7000); Neutrophils Percent Auto 88.3 % (50-75); Platelet Count 190 X10^3/uL (150-400); Red Blood Cell Count 3.69 X10^6/uL (4.5-5.9); Red Cell Distribution Width 14.5 % (11.6-14.8); White Blood Cell Count 7.8 X10^3/uL (4.5-11.0)
[2021-06-03 05:48] LABS: Alanine Aminotransferase 23 IU/L (<50); Albumin 3.6 g/dL (3.5-5.0); Albumin Globulin Ratio 1.4 (1.0-2.8); Alkaline Phosphatase 35 U/L (38-126); Aspartate Aminotransferase 29 IU/L (17-59); BUN Creatinine Ratio 13.3 (6-22); Bilirubin Total 0.6 mg/dL (0.2-1.3); Blood Urea Nitrogen 8 mg/dL (9-20); Calcium 8.2 mg/dL (8.4-10.2); Carbon Dioxide 29 mmol/L (22-32); Chloride 105 mmol/L (98-107); Estimated Glomerular Filt Rate > 60.0 mL/min (>60); Globulin 2.6 g/dL (1.7-4.1); Glucose 155 mg/dL (80-110); HEMOLYSIS 41 (0-50); Magnesium 1.4 mg/dL (1.6-2.3); Phosphorous 3.2 mg/dL (2.3-3.7); Potassium 4.6 mmol/L (3.4-5.1); Sodium 136 mmol/L (137-145); Total Protein 6.2 g/dL (6.3-8.2)
[2021-06-03] MEDS: ONDANSETRON 4 MG/2 ML INJ IV ×2 (05:59)
[2021-06-03] MEDS: SODIUM CHLORIDE 0.9% FLUSH 10 ML IV ×2 (06:00→07:55)
[2021-06-03 06:17] VITALS: BP 113/68; PULSE 73; RESP 18; TEMP 36.8; O2SAT 95
[2021-06-03 10:00] VITALS: BP 104/57; PULSE 81; RESP 18; TEMP 37.2; O2SAT 100
[2021-06-03 10:39] VITALS: PULSE 75; RESP 16; O2SAT 100
[2021-06-03] MEDS: MAGNESIUM CHLORIDE 64 MG TABLET 128 MG PO (10:47)
--- NOTE | 2021-06-03 11:52 | PC.NURSE ---
Day shift: Paperwork signed and all questions answered. Pt taken to ED entrance to wait for his ride per his request. He is steady on his feet. Pt has all personal belongings. IV's removed w/o any issues. Pt stated I'm very happy to be going home now.
== END 2021-06-03 11:53 | disposition home or self-care (01) ==
LOC: ED 14:12 → AC 17:17
PROVIDERS: Admitting Provider Surgery; Emergency Provider Emergency Medicine; Family Provider Emergency Medicine Emergency Medical Services; PCP Family Medicine; Referring Provider Emergency Medicine; Visit Provider Surgery
DX: R10.84 Generalized abdominal pain (principal); K91.0 Vomiting following gastrointestinal surgery; R19.7 Diarrhea, unspecified; R50.9 Fever, unspecified; E11.9 Type 2 diabetes mellitus without complications; Z79.4 Long term (current) use of insulin; Z20.822 Contact with and (suspected) exposure to COVID-19
CPT/HCPCS: 36415; 36592; 71045; 74177; 76705; 80053; 81001; 82962; 83605; 83690; 83735; 84100; 84145; 85025; 87040; 87635; 93005; 93010; 96361; 96365; 96367; 96375; 96376; 99285; C9803; G0378; J1170; J1200; J2405; J2543; J2930; Q9967

== ENCOUNTER → 2021-11-01 08:26 | Outpatient (CLI) | payer OTHER, SELFPAY ==
[2021-06-02 20:00] VITALS: BMI 23.9
[2021-11-01 09:01] LABS: Add Manual Diff / Slide Review NO; Basophils Absolute Auto 0 /uL (0-100); Basophils Percent Auto 0.4 % (0-2); Eosinophils Absolute Auto 200 /uL (0-450); Eosinophils Percent Auto 3.6 % (2-4); Hematocrit 42.9 % (41-53); Hemoglobin 14.8 g/dL (13.5-17.5); Lymphocytes Absolute Auto 1200 /uL (1100-4500); Lymphocytes Percent Auto 17.6 % (25-40); Mean Corpuscular HGB Conc 34.5 % (30-36); Mean Corpuscular Hemoglobin 30.9 PG (26-34); Mean Corpuscular Volume 89.5 fL (80-100); Monocytes Absolute Auto 600 /uL (0-900); Monocytes Percent Auto 8.5 % (3-14); Neutrophils Absolute Auto 4700 /uL (1500-7000); Neutrophils Percent Auto 69.9 % (50-75); Platelet Count 288 X10^3/uL (150-400); Red Cell Distribution Width 13.7 % (11.6-14.8); White Blood Cell Count 6.7 X10^3/uL (4.5-11.0)
[2021-11-01 09:09] LABS: Hemoglobin A1C% w Est Avg Glu 7.2 % (4.0-6.0)
[2021-11-01 11:15] LABS: Alanine Aminotransferase 20 IU/L (<50); Albumin 4.4 g/dL (3.5-5.0); Albumin Globulin Ratio 1.8 (1.0-2.8); Alkaline Phosphatase 77 U/L (38-126); Aspartate Aminotransferase 20 IU/L (17-59); BUN Creatinine Ratio 12.5 (6-22); Bilirubin Total 0.4 mg/dL (0.2-1.3); Blood Urea Nitrogen 9 mg/dL (9-20); Calcium 9.1 mg/dL (8.4-10.2); Carbon Dioxide 23 mmol/L (22-32); Chloride 108 mmol/L (98-107); Estimated Glomerular Filt Rate > 60 mL/min (>60); Globulin 2.5 g/dL (1.7-4.1); Glucose 199 mg/dL (80-110); HEMOLYSIS < 15 (0-50); Lactate Dehydrogenase 389 U/L (313-618); Magnesium 1.6 mg/dL (1.6-2.3); Sodium 141 mmol/L (137-145); Total Protein 6.9 g/dL (6.3-8.2)
== END ==
PROVIDERS: Family Provider Nurse Practitioner Family; PCP Family Medicine; Referring Provider Family Medicine; Visit Provider Family Medicine
DX: E10.9 Type 1 diabetes mellitus without complications (principal); I10 Essential (primary) hypertension; I48.91 Unspecified atrial fibrillation; I48.92 Unspecified atrial flutter; I73.9 Peripheral vascular disease, unspecified; K86.1 Other chronic pancreatitis; K82.9 Disease of gallbladder, unspecified
CPT/HCPCS: 36415; 80053; 83036; 83615; 83735; 84443; 85025

== ENCOUNTER 2022-02-06 17:53 | Emergency (ER) | payer OTHER, SELFPAY ==
[2021-06-02 20:00] VITALS: BMI 23.9
[2022-02-06] VITALS (10 sets, daily range): BP systolic 115–152; BP diastolic 63–79; PULSE 88–163; RESP 15–26; TEMP 36.7; O2SAT 97–100
--- NOTE | 2022-02-06 18:35 | ED.ARRPALP ---
HPI - Arrhythmia/Palpitations General Chief Complaint: Arrhythmia/Palpitations Stated Complaint: AFIB/CHEST PAIN Time Seen by Provider: 02/06/22 18:29 Source: patient Mode of arrival: Ambulatory Limitations: no limitations History of Present Illness HPI narrative: Patient is a 67-year-old male. Has a history of paroxysmal atrial fibrillation. Is on medications for these and he states that he has been taking them as directed. He is also on anticoagulation. Has been seen here in the emergency department multiple times in the past for elevated heart rate. He states he has been cardioverted multiple times in the past. His symptoms he presents with this evening started earlier today. He has had issues with his pancreas in the past. He would a sudden onset of left upper quadrant discomfort. He did take his pain medication but he states that did not kick in quick enough and he thinks this is what caused him to have an elevated heart rate. He did take an extra dose of his metoprolol without any improvement. Related Data Home Medications Medication Instructions Recorded Confirmed clopidogrel 75 mg tablet (Plavix) 75 mg PO DAILY ##0 04/15/08 11/01/21 acetaminophen 325 mg tablet (Pain 500 mg PO Q4HP PRN Pain, Mild 09/25/17 11/01/21 Relief (acetaminophen)) cholecalciferol (vitamin D3) 25 3,000 unit PO DAILY 09/25/17 11/01/21 mcg (1,000 unit) capsule (Vitamin D3) dabigatran etexilate 150 mg 150 mg PO BID 03/24/18 11/01/21 capsule (Pradaxa) pravastatin 80 mg tablet 80 mg PO BEDTIME ##0 02/13/19 11/01/21 lisinopril 2.5 mg tablet 2.5 mg PO DAILY blood pressure 04/28/19 11/01/21 insulin lispro 100 unit/mL See Rx Instructions SUBCUT 03/15/20 11/01/21 subcutaneous solution (Humalog USEASDIRECTD U-100 Insulin) promethazine 25 mg rectal 25 mg [place] Q6H PRN Nausea 06/17/20 11/01/21 suppository azelastine 2 spray intranasal BID 05/30/21 11/01/21 oxycodone 10 mg tablet 5 mg PO Q4H PRN Pain, Severe (7-10) 05/30/21 11/01/21 duloxetine 60 mg capsule,delayed 60 mg PO DAILY 11/01/21 11/01/21 release (Cymbalta) ipratropium 20 mcg-albuterol 100 1 puff inhalation Q4H 11/01/21 11/01/21 mcg/actuation mist for inhalation (Combivent Respimat) Previous Rx's Medication Instructions Recorded gentamicin 0.3 % eye drops 1 drp EYE-BOTH TID PRN Blepharitis 03/15/20 #5 mL fuhrto-iijfshbr-vbtcabf 1 cap PO QID #120 caps 03/15/20 24,000-76,000-120,000 unit capsule,delayed rel (Creon) diphenhydramine HCl 12.5 mg/5 mL 12.5 mg (5 mL) PO Q6H PRN nausea 03/15/21 oral elixir and vomiting #500 mL metoprolol tartrate 25 mg tablet 12.5 mg PO BID #60 tabs 03/15/21 potassium chloride 20 mEq 20 meq PO DAILY PRN DIRECTED 03/15/21 tablet,extended release #30 tabs sucralfate 1 gram tablet 1 gm PO ACHS #240 tabs 03/15/21 hydrocodone 5 mg-acetaminophen 325 1 tab PO Q8H PRN pain #10 tabs 05/30/21 mg tablet ondansetron 8 mg disintegrating See Rx Instructions .Route 11/01/21 tablet .COMPLEX #90 tabs methylphenidate HCl 20 mg tablet 20 mg PO TID #90 ea 01/31/22 Allergies Allergy/AdvReac Type Severity Reaction Status Date / Time Iodine and Iodide Containing Allergy Severe Anaphylaxis Verified 11/01/21 07:45 Produc [IODINE AND IODIDE CONTAINING PRODUC] Sulfa (Sulfonamide Allergy Severe Anaphylaxis Verified 11/01/21 07:45 Antibiotics) [SULFA (SULFONAMIDE ANTIBIOTICS)] gabapentin AdvReac Intermediate Dizziness Verified 11/01/21 07:45 Ybwkryp-QWO-CxA Reductase AdvReac Intermediate Verified 11/01/21 07:45 Inhibitor metformin AdvReac Mild Verified 11/01/21 07:45 Review of Systems Constitutional Constitutional: Reports system reviewed and no additional complaints, except as documented Cardiovascular Cardiovascular: Reports system reviewed and no additional complaints, except as documented Respiratory Respiratory: Reports system reviewed and no additional complaints, except as documented Gastrointestinal Gastrointestinal: Reports system reviewed and no additional complaints, except as documented Integumentary/Breasts Skin/Breast: Reports system reviewed and no additional complaints, except as documented Hematologic/Lymphatic On Anticoagulants: Yes Patient History Medical History Acute dehydration Atrial flutter with rapid ventricular response Campylobacter enteritis Claudication in peripheral vascular disease Enteritis, enteropathogenic E. coli Exocrine pancreatic insufficiency Gastroenteritis GERD (gastroesophageal reflux disease) History of cardioversion (03/07/21) HTN (hypertension) Hyperlipidemia Insulin dependent diabetes mellitus with complications Narcolepsy Nausea vomiting and diarrhea Pancreatic endocrine tumor Pancreatitis Paroxysmal atrial fibrillation Peripheral vascular disease Psoriasis Sepsis Surgical History H/O exploratory laparotomy History of epididymectomy History of femoropopliteal bypass Hx of biopsy Family History Father Colon cancer Mother Narcolepsy Grandmother Narcolepsy Social History household members: significant other Smoking Status: Former smoker alcohol intake: former Smoking Status: Former smoker alcohol intake frequency: 0-2 drinks per day Substance Use Type: marijuana Exam Initial Vital Signs Initial Vital Signs: Vital Signs Temperature 98.0 F 02/06/22 18:07 Pulse Rate 155 H 02/06/22 18:07 Respiratory Rate 22 02/06/22 18:07 Blood Pressure 152/79 H 02/06/22 18:07 Pulse Oximetry 98 02/06/22 18:07 Oxygen Delivery Method 02/06/22 18:07 Const General: cooperative and comfortable HENMT Head: normal to inspection and normocephalic Resp Effort & Inspection: normal respiratory effort Auscultation: clear to auscultation bilaterally Cardio Rate: tachycardic Rhythm: regular rhythm GI Inspection: normal to inspection Skin General: no rashes or lesions noted Neuro General: patient alert, patient awake and moves all extremities Speech: speech normal Extrem General: normal to inspection and capillary refill normal Psych Appearance: grossly normal and well kempt Course Orders Ordered: ED Orders 02/06/22 18:12 EKG-12 Lead Routine 02/06/22 18:30 Complete Blood Count AUTO DIFF Stat Comprehensive Metabolic Panel Stat Lipase Stat Partial Thromboplastin Time Stat Prothrombin Time INR Stat 02/06/22 18:37 RT Consult Eval and Treat Now 02/06/22 19:10 COVID19 -Nasal RAPID/Pre-Proc Stat 02/06/22 20:16 EKG-12 Lead Routine Discontinued Medications Diltiazem HCl (Diltiazem 5 Mg/Ml Sdv) 10 mg IV NOW ONE Stop: 02/06/22 18:37 Last Admin: 02/06/22 19:35 Dose: 10 mg Documented By: JAY Fentanyl (Fentanyl 100 Mcg/2 Ml Inj) 12.5 mcg IV NOW ONE Stop: 02/06/22 18:37 Last Admin: 02/06/22 20:19 Dose: 12.5 mcg Documented By: JAY Sodium Chloride (Normal Saline 0.9%) 1,000 mls @ 125 mls/hr IV CONT KATHY Last Infusion: 02/06/22 20:50 Dose: 0 mls/hr Documented By: Admin: 02/06/22 19:37 Dose: 125 mls/hr Documented By: JAY Ondansetron HCl (Ondansetron 4 Mg/2 Ml Inj) 4 mg IV NOW ONE Stop: 02/06/22 20:27 Last Admin: 02/06/22 20:45 Dose: 4 mg Documented By: JAY Propofol (Propofol 200 Mg/20 Ml Vial) 100 mg IV NOW ONE Stop: 02/06/22 18:37 Last Admin: 02/06/22 20:52 Dose: Not Given Documented By: JAY Vital Signs Vital signs: Vital Signs - 8 hr 02/06/22 19:35 02/06/22 19:51 02/06/22 19:00 Pulse Rate 139 H 118 H 154 H Respiratory Rate 16 25 H Blood Pressure 116/73 116/73 Pulse Oximetry 97 99 02/06/22 19:13 02/06/22 19:13 02/06/22 19:30 Pulse Rate 155 H Respiratory Rate 26 H Blood Pressure 118/68 116/73 Pulse Oximetry 98 02/06/22 19:30 02/06/22 20:00 02/06/22 20:00 Pulse Rate 156 H 120 H Respiratory Rate 19 25 H Blood Pressure 116/63 Pulse Oximetry 100 97 02/06/22 20:30 02/06/22 20:30 Pulse Rate 88 Respiratory Rate 15 Blood Pressure 115/67 Pulse Oximetry 98 MDM - Arrhythmia/Palpitations Lab Data Attestation: I reviewed the patient's lab results. Result diagrams: 02/06/22 18:30 02/06/22 18:30 Labs: Lab Results 02/06/22 02/06/22 02/06/22 Range/Units 18:30 18:30 18:30 WBC 6.7 (4.5-11.0) X10^3/uL RBC 4.64 (4.5-5.9) X10^6/uL Hgb 14.2 (13.5-17.5) g/dL Hct 41.3 (41-53) % MCV 88.9 (80-100) fL MCH 30.5 (26-34) PG MCHC 34.3 (30-36) % RDW 13.2 (11.6-14.8) % Plt Count 277 (150-400) X10^3/uL Neut % (Auto) 69.9 (50-75) % Lymph % (Auto) 19.1 L (25-40) % [place] % (Auto) 8.3 (3-14) % Eos % (Auto) 2.2 (2-4) % Baso % (Auto) 0.5 (0-2) % Neut # (Auto) 4700 (1113-7193) /uL Lymph # (Auto) 1300 (6438-8414) /uL [place] # (Auto) 600 (0-900) /uL Eos # (Auto) 100 (0-450) /uL Baso # (Auto) 0 (0-100) /uL PT 13.6 H (10.1-12.7) SECONDS INR 1.2 (0.9-1.3) APTT 35 (26-36) SECONDS Sodium 140 (137-145) mmol/L Potassium 3.5 (3.4-5.1) mmol/L Chloride 104 (98-107) mmol/L Carbon Dioxide 25 (22-32) mmol/L BUN 12 (9-20) mg/dL Creatinine 0.58 L (0.66-1.25) mg/dL Estimated GFR > 60 (>60) mL/min BUN/Creatinine Ratio 20.7 (6-22) Glucose 234 H (80-110) mg/dL Calcium 9.0 (8.4-10.2) mg/dL Total Bilirubin 0.2 (0.2-1.3) mg/dL AST 28 (17-59) IU/L ALT 21 (<50) IU/L Alkaline Phosphatase 93 (38-126) U/L Total Protein 7.2 (6.3-8.2) g/dL Albumin 4.4 (3.5-5.0) g/dL Globulin 2.8 (1.7-4.1) g/dL Albumin/Globulin Ratio 1.6 (1.0-2.8) Lipase 162 (23-300) U/L SARS-CoV-2 (PCR) (Negative) 02/06/22 Range/Units 19:10 WBC (4.5-11.0) X10^3/uL RBC (4.5-5.9) X10^6/uL Hgb (13.5-17.5) g/dL Hct (41-53) % MCV (80-100) fL MCH (26-34) PG MCHC (30-36) % RDW (11.6-14.8) % Plt Count (150-400) X10^3/uL Neut % (Auto) (50-75) % Lymph % (Auto) (25-40) % [place] % (Auto) (3-14) % Eos % (Auto) (2-4) % Baso % (Auto) (0-2) % Neut # (Auto) (5677-1633) /uL Lymph # (Auto) (5105-1327) /uL [place] # (Auto) (0-900) /uL Eos # (Auto) (0-450) /uL Baso # (Auto) (0-100) /uL PT (10.1-12.7) SECONDS INR (0.9-1.3) APTT (26-36) SECONDS Sodium (137-145) mmol/L Potassium (3.4-5.1) mmol/L Chloride (98-107) mmol/L Carbon Dioxide (22-32) mmol/L BUN (9-20) mg/dL Creatinine (0.66-1.25) mg/dL Estimated GFR (>60) mL/min BUN/Creatinine Ratio (6-22) Glucose (80-110) mg/dL Calcium (8.4-10.2) mg/dL Total Bilirubin (0.2-1.3) mg/dL AST (17-59) IU/L ALT (<50) IU/L Alkaline Phosphatase (38-126) U/L Total Protein (6.3-8.2) g/dL Albumin (3.5-5.0) g/dL Globulin (1.7-4.1) g/dL Albumin/Globulin Ratio (1.0-2.8) Lipase (23-300) U/L SARS-CoV-2 (PCR) Negative (Negative) ECG Data Interpretation: Atrial flutter Ventricular rate 155 Normal axis Normal QRS Nonspecific ST T wave changes Post-conversion Sinus rhythm Ventricular rate 92 Normal axis Normal QRS Normal QTC No ST T wave changes MDM Narrative Medical decision making narrative: The patient arrived in what appears to be atrial flutter. Is stable. Blood pressure is unremarkable. He is anticoagulated. His symptoms started earlier today. His abdominal discomfort has actually improved. His lipase and LFTs are unremarkable. We will hold on further workup of his abdominal pain for now as he states this feels very similar to the other issues that he is had his pancreas. He was informed of the results of these labs. He does not have acute pancreatitis. We had risks and benefit discussion about cardioversion versus rate control. Patient states he would like to be cardioverted. While we were waiting for nursing staff and the rest of the department to be set up for a sedation and cardioversion he was given diltiazem. Just prior to cardioversion the patient did spontaneously convert back to sinus rhythm. Patient states that he feels much better. Will discharge home with instructions to continue to take his medications as directed. He was given return precautions. He expressed understanding and agreement. Discharge Plan Departure Patient Disposition: Home Clinical Impression: Atrial fibrillation Instructions: DI for Atrial Fibrillation Activity Restrictions/Additional Instructions: I recommend that you continue to take all of your medications as directed. Contact your primary doctor and also your technical solutions director for follow-up. Return to the emergency department for any new or worsening symptoms. Prescriptions: No Action clopidogrel [Plavix] 75 mg Tablet 75 mg PO DAILY Qty: 0 methylphenidate HCl 20 mg tablet 20 mg PO TID Qty: 90 0RF insulin lispro [Humalog U-100 Insulin] 100 unit/mL solution See Rx Instructions SUBCUT USEASDIRECTD Rx Instructions: 2-4 sliding scale SUBCUT use as directed; pt took 3 units 0800 gentamicin 0.3 % drops 1 drp EYE-BOTH TID PRN (Reason: Blepharitis) Qty: 5 12RF Creon 24,000-76,000 -120,000 unit capsule,delayed release(DR/EC) 1 cap PO QID Qty: 120 12RF Rx Instructions: administer with meals and/or snacks prn sliding scale. 1 capsule for every 600 calories promethazine 25 mg suppository 25 mg WV Q6H PRN (Reason: Nausea) duloxetine [Cymbalta] 60 mg capsule,delayed release(DR/EC) 60 mg PO DAILY Combivent Respimat 20-100 mcg/actuation mist 1 puff inhalation Q4H ondansetron 8 mg tablet,disintegrating See Rx Instructions .ROUTE .COMPLEX Qty: 90 10RF Dose Instruction: DISSOLVE 1 TABLET BY MOUTH THREE TIMES DAILY NEEDED Rx Instructions: DISSOLVE 1 TABLET BY MOUTH THREE TIMES DAILY NEEDED cholecalciferol (vitamin D3) [Vitamin D3] 1,000 unit Capsule 3,000 unit PO DAILY Label Comments: i cannot swallow meds right now anyway acetaminophen [Pain Relief (acetaminophen)] 325 MG tablet 500 mg PO Q4HP PRN (Reason: Pain, Mild) Label Comments: pt took 2 tablets Pradaxa 150 mg Capsule 150 mg PO BID pravastatin 80 mg Tablet 80 mg PO BEDTIME Qty: 0 Rx Instructions: 1 tablet daily HS lisinopril 2.5 mg Tablet 2.5 mg PO DAILY metoprolol tartrate 25 mg Tablet 12.5 mg PO BID Qty: 60 0RF diphenhydramine HCl 12.5 mg/5 mL elixir 12.5 mg PO Q6H PRN (Reason: nausea and vomiting) Qty: 500 0RF sucralfate 1 gram Tablet 1 gm PO ACHS Qty: 240 0RF potassium chloride 20 mEq tablet extended release 20 meq PO DAILY PRN (Reason: DIRECTED) Qty: 30 0RF Rx Instructions: PLEASE TAKE ONE TABLET WHENEVER BUMEX HAS BEEN TAKEN oxycodone 10 mg tablet 5 mg PO Q4H PRN (Reason: Pain, Severe (7-10)) azelastine inhaler 2 spray intranasal BID hydrocodone-acetaminophen 5-325 mg tablet 1 tab PO Q8H PRN (Reason: pain) Qty: 10 0RF Referrals: Eric Huang MD [Primary Care Provider] - Visit Report Forms: Patient Portal/API
[2022-02-06 18:49] LABS: Add Manual Diff / Slide Review NO; Basophils Absolute Auto 0 /uL (0-100); Basophils Percent Auto 0.5 % (0-2); Eosinophils Absolute Auto 100 /uL (0-450); Eosinophils Percent Auto 2.2 % (2-4); Hematocrit 41.3 % (41-53); Hemoglobin 14.2 g/dL (13.5-17.5); Lymphocytes Absolute Auto 1300 /uL (1100-4500); Lymphocytes Percent Auto 19.1 % (25-40); Mean Corpuscular HGB Conc 34.3 % (30-36); Mean Corpuscular Hemoglobin 30.5 PG (26-34); Mean Corpuscular Volume 88.9 fL (80-100); Monocytes Absolute Auto 600 /uL (0-900); Monocytes Percent Auto 8.3 % (3-14); Neutrophils Absolute Auto 4700 /uL (1500-7000); Neutrophils Percent Auto 69.9 % (50-75); Platelet Count 277 X10^3/uL (150-400); Red Blood Cell Count 4.64 X10^6/uL (4.5-5.9); Red Cell Distribution Width 13.2 % (11.6-14.8); White Blood Cell Count 6.7 X10^3/uL (4.5-11.0)
[2022-02-06 18:50] LABS: INR 1.2 (0.9-1.3); Prothrombin Time 13.6 SECONDS (10.1-12.7)
[2022-02-06 18:52] LABS: PTT Partial Thromboplastin Tim 35 SECONDS (26-36)
[2022-02-06 19:34] LABS: COVID19 -Nasal RAPID Negative (Negative)
[2022-02-06] MEDS: dilTIAZem 5 MG/ML SDV 10 MG IV (19:35)
[2022-02-06] MEDS: SODIUM CHLORIDE 0.9% 1,000 ML 125 ML IV (19:37)
[2022-02-06 19:39] LABS: Alanine Aminotransferase 21 IU/L (<50); Albumin 4.4 g/dL (3.5-5.0); Albumin Globulin Ratio 1.6 (1.0-2.8); Alkaline Phosphatase 93 U/L (38-126); Aspartate Aminotransferase 28 IU/L (17-59); BUN Creatinine Ratio 20.7 (6-22); Bilirubin Total 0.2 mg/dL (0.2-1.3); Blood Urea Nitrogen 12 mg/dL (9-20); Carbon Dioxide 25 mmol/L (22-32); Chloride 104 mmol/L (98-107); Estimated Glomerular Filt Rate > 60 mL/min (>60); Globulin 2.8 g/dL (1.7-4.1); Glucose 234 mg/dL (80-110); HEMOLYSIS 28 (0-50); Lipase 162 U/L (23-300); Potassium 3.5 mmol/L (3.4-5.1); Sodium 140 mmol/L (137-145); Total Protein 7.2 g/dL (6.3-8.2)
[2022-02-06] MEDS: fentaNYL 100 MCG/2 ML INJ 12.5 MCG IV (20:19)
--- NOTE | 2022-02-06 20:27 | PC.NURSE ---
Pt self converted fron Atrial flutter to NSR at 2007
[2022-02-06] MEDS: ONDANSETRON 4 MG/2 ML INJ IV (20:45)
== END 2022-02-06 21:01 | disposition home or self-care (01) ==
PROVIDERS: Emergency Provider Emergency Medicine; Family Provider Nurse Practitioner Family; PCP Family Medicine
DX: I48.91 Unspecified atrial fibrillation (principal); Z79.01 Long term (current) use of anticoagulants; Z79.899 Other long term (current) drug therapy; Z20.822 Contact with and (suspected) exposure to COVID-19
CPT/HCPCS: 36415; 80053; 83690; 85025; 85610; 85730; 87635; 92960; 93005; 93010; 96361; 96374; 96375; 99285; C9803; J2405; J3010

== ENCOUNTER 2022-02-25 13:14 | Inpatient (IN) | payer OTHER, SELFPAY ==
[2021-06-02 20:00] VITALS: BMI 23.9
[2022-02-25] VITALS (91 sets, daily range): BP systolic 101–154; BP diastolic 55–111; PULSE 42–163; RESP 11–50; TEMP 36.6–37.3; O2SAT 90–98; BMI 23.6; BMI 25.0
--- NOTE | 2022-02-25 13:45 | DI.RAD.S_ITS ---
PROCEDURE: XR CHEST 1V INDICATIONS: Chest pain TECHNIQUE: One view of the chest was acquired. COMPARISON: [facility], CR, XR CHEST 1V, 06/02/2021, 20:31. FINDINGS: Surgical changes and devices: None. Lungs and pleura: Patchy right midlung airspace disease. No pleural effusions or pneumothorax. Mediastinum: Mediastinal contours appear normal. Heart size is normal. Bones and chest wall: No suspicious bony lesions. Overlying soft tissues appear unremarkable. IMPRESSION: Patchy airspace disease in the right lung. Findings presumably represent infection. No acute finding otherwise. Dictated by: Junior Jimenez M.D. on 02/25/2022 at 14:18 Approved by: Junior Jimenez M.D. on 02/25/2022 at 14:18
--- NOTE | 2022-02-25 14:03 | ED_ITS ---
HPI - Chest Pain General Chief Complaint: Chest Pain Stated Complaint: SOB,CHEST PAIN,FEVER Time Seen by Provider: 02/25/22 13:19 Source: patient Mode of arrival: Family Vehicle Limitations: no limitations History of Present Illness HPI narrative: This is a 67-year-old with known atrial flutter and fibrillation on Pradaxa, history of diabetes, pancreatitis and peripheral artery disease. Patient presents today feeling generally unwell he states he is noted his heart rate has been fast on and off for the entire week but states this morning has been persistently fast, he has been sweaty he denies chest pain but has felt short of breath. He states he is had abdominal discomfort. He states he has been vomiting for several days and has not had a bowel movement for at least 3 or 4 days. He states he is having flatus or passing gas regularly. Patient denies new swelling in his extremities. He denies fevers but has felt chilled. He is had nonproductive cough. He states he does take his blood thinner regularly. Patient notes he is had multiple cardioversions in the past without issue. He states he is had a cardiac catheterization but it has been some time he states he is never had any cardiac stents he denies ablation. He denies CABG or other cardiac interventions. Patient is allergic to iodine he states for CT scans they usually use pretreatment with Benadryl Solu-Medrol, allergic to sulfa and can not take Lasix secondary to this. Related Data Home Medications Medication Instructions Recorded Confirmed clopidogrel 75 mg tablet (Plavix) 75 mg PO DAILY ##0 04/15/08 11/01/21 acetaminophen 325 mg tablet (Pain 500 mg PO Q4HP PRN Pain, Mild 09/25/17 11/01/21 Relief (acetaminophen)) cholecalciferol (vitamin D3) 25 3,000 unit PO DAILY 09/25/17 11/01/21 mcg (1,000 unit) capsule (Vitamin D3) dabigatran etexilate 150 mg 150 mg PO BID 03/24/18 11/01/21 capsule (Pradaxa) pravastatin 80 mg tablet 80 mg PO BEDTIME ##0 02/13/19 11/01/21 lisinopril 2.5 mg tablet 2.5 mg PO DAILY blood pressure 04/28/19 11/01/21 insulin lispro 100 unit/mL See Rx Instructions SUBCUT 03/15/20 11/01/21 subcutaneous solution (Humalog USEASDIRECTD U-100 Insulin) promethazine 25 mg [address] Q6H PRN Nausea 06/17/20 11/01/21 suppository azelastine 2 spray intranasal BID 05/30/21 11/01/21 oxycodone 10 mg tablet 5 mg PO Q4H PRN Pain, Severe (7-10) 05/30/21 11/01/21 duloxetine 60 mg capsule,delayed 60 mg PO DAILY 11/01/21 11/01/21 release (Cymbalta) ipratropium 20 mcg-albuterol 100 1 puff inhalation Q4H 11/01/21 11/01/21 mcg/actuation mist for inhalation (Combivent Respimat) Previous Rx's Medication Instructions Recorded gentamicin 0.3 % eye drops 1 drp EYE-BOTH TID PRN Blepharitis 03/15/20 #5 mL mhnjlj-[id number] 1 cap PO QID #120 caps 03/15/20 24,000-76,000-120,000 unit capsule,delayed rel (Creon) diphenhydramine HCl 12.5 mg/5 mL 12.5 mg (5 mL) PO Q6H PRN nausea 03/15/21 oral elixir and vomiting #500 mL metoprolol tartrate 25 mg tablet 12.5 mg PO BID #60 tabs 03/15/21 potassium chloride 20 mEq 20 meq PO DAILY PRN DIRECTED 03/15/21 tablet,extended release #30 tabs sucralfate 1 gram tablet 1 gm PO ACHS #240 tabs 03/15/21 hydrocodone 5 mg-acetaminophen 325 1 tab PO Q8H PRN pain #10 tabs 05/30/21 mg tablet ondansetron 8 mg disintegrating See Rx Instructions .Route 11/01/21 tablet .COMPLEX #90 tabs methylphenidate HCl 20 mg tablet 20 mg PO TID #90 ea 01/31/22 Allergies Allergy/AdvReac Type Severity Reaction Status Date / Time Iodine and Iodide Containing Allergy Severe Anaphylaxis Verified 02/25/22 13:33 Produc [IODINE AND IODIDE CONTAINING PRODUC] Sulfa (Sulfonamide Allergy Severe Anaphylaxis Verified 02/25/22 13:33 Antibiotics) [SULFA (SULFONAMIDE ANTIBIOTICS)] gabapentin AdvReac Intermediate Dizziness Verified 02/25/22 13:33 [id number] Reductase AdvReac Intermediate Verified 02/25/22 13:33 Inhibitor metformin AdvReac Mild Verified 02/25/22 13:33 Review of Systems Review of Systems ROS Unobtainable: All systems reviewed & are unremarkable except as noted in HPI and below Patient History Medical History Acute dehydration Atrial flutter with rapid ventricular response Campylobacter enteritis Claudication in peripheral vascular disease Enteritis, enteropathogenic E. coli Exocrine pancreatic insufficiency Gastroenteritis GERD (gastroesophageal reflux disease) History of cardioversion (03/07/21) HTN (hypertension) Hyperlipidemia Insulin dependent diabetes mellitus with complications Narcolepsy Nausea vomiting and diarrhea Pancreatic endocrine tumor Pancreatitis Paroxysmal atrial fibrillation Peripheral vascular disease Psoriasis Sepsis Surgical History H/O exploratory laparotomy History of epididymectomy History of femoropopliteal bypass Hx of biopsy Family History Father Colon cancer Mother Narcolepsy Grandmother Narcolepsy Social History household members: significant other Smoking Status: Former smoker alcohol intake: former Smoking Status: Former smoker alcohol intake frequency: 0-2 drinks per day Substance Use Type: marijuana Exam Narrative Exam Narrative: GENERAL: Alert and oriented x three, male in moderate distress patient is diaphoretic. He appears pale. HEENT: Head normocephalic, atraumatic, EOMI, pupils reactive, face symmetric, moist mucous membranes NECK: Supple, full range of motion CARDIOVASCULAR: Tachycardic but Regular rate and rhythm without murmurs, rubs or gallops. Positive for JVD bilaterally. No edema bilateral lower extremities. RESPIRATORY: Breath sounds equal bilaterally, no wheezes rales or rhonchi. No tachypnea accessory muscle use. Patient has a dry cough. ABDOMEN: Soft, nontender. Normoactive bowel sounds all 4 quadrants. No guarding or rebound, rigidity, no mass : No CVA tenderness EXTREMITIES: Normal range of motion, no clubbing or edema. Neurovascularly intact NEUROLOGICAL: Cranial nerves II through XII grossly intact. Moving all extremities SKIN: Warm, dry, no petechiae, no rashes or lesions. Initial Vital Signs Initial Vital Signs: Vital Signs Temperature 98.4 F 02/25/22 13:24 Pulse Rate 163 H 02/25/22 13:24 Respiratory Rate 29 H 02/25/22 13:24 Blood Pressure 132/82 02/25/22 13:24 Pulse Oximetry 95 02/25/22 13:24 Oxygen Delivery Method 02/25/22 13:24 Procedures Cardioversion Consent Signed: Yes Stability: Unstable Number of attempts (shocks): 1 Joules used: 120 Cardiac rhythm post-cardioversion: sinus tachycardia Procedural Sedation Consent signed: Yes Time out performed: Yes Indication: cardioversion ASA Class: II Mallampati Airway Classification: Class II Time of Last PO Intake: 05:00 Preparation: color television console monitor applied, pulse oximeter, capnometry used, supplemental O2 applied, suction/airway equipment at bedside and IV secured IV Propofol dose (mg): 50 Intraservice time/total sedation time (min): 15 ED Sedation Level: Moderate (Concious) Patient Tolerated Procedure: Well and No complications Complications: none Course Orders Ordered: ED Orders 02/25/22 13:19 EKG-12 Lead Stat 02/25/22 13:30 Covid-19 + FLU A/B + RSV - PCR Stat 02/25/22 13:45 XR chest 1V Stat EKG-12 Lead Stat 02/25/22 13:48 BNP [NT-proBNP (BNP-Adult 18+)] Stat Blood Culture Stat RT Consult Eval and Treat NOW 02/25/22 15:22 EKG-12 Lead Routine 02/25/22 15:41 Complete Blood Count AUTO DIFF Stat Comprehensive Metabolic Panel Stat Lactate (Lactic Acid) Stat Lipase Stat Magnesium Stat Partial Thromboplastin Time Stat Procalcitonin Stat Prothrombin Time INR Stat Troponin & CK Cardiac Panel Stat 02/25/22 16:34 CT kidney ureter bladder (KUB) Stat 02/25/22 18:15 Trop I [Troponin I] Stat POTASSIUM CHLORIDE IN WATER (Potassium Cl 10 Meq/100 Ml Rosio) 10 meq in 100 mls @ 100 mls/hr IV Q1H KATHY Stop: 02/25/22 20:29 Last Admin: 02/25/22 18:07 Dose: 100 mls/hr Documented By: Infusion: 02/25/22 18:06 Dose: 0 mls/hr Documented By: Admin: 02/25/22 17:00 Dose: 100 mls/hr Documented By: MINAL Vancomycin HCl/Dextrose (Vancomycin) 1,500 mg in 300 mls @ 200 mls/hr IV NOW ONE Stop: 02/25/22 19:50 Ondansetron HCl (Ondansetron 4 Mg/2 Ml Inj) 4 mg IV NOW PRN PRN Reason: Nausea And Vomiting Last Admin: 02/25/22 14:39 Dose: 4 mg Documented By: SONYA Discontinued Medications Aspirin (Aspirin 81 Mg Chew Tab) 324 mg PO NOW ONE Stop: 02/25/22 13:46 Last Admin: 02/25/22 14:46 Dose: 324 mg Documented By: EN Diltiazem HCl (Diltiazem 5 Mg/Ml Sdv) 10 mg IV NOW ONE Stop: 02/25/22 14:24 Last Admin: 02/25/22 14:38 Dose: 10 mg Documented By: SONYA Furosemide (Furosemide 40 Mg/4 Ml Vial) 40 mg IV NOW ONE Stop: 02/25/22 15:36 Last Admin: 02/25/22 15:44 Dose: Not Given Documented By: TAQUERIA Sodium Chloride (Normal Saline 0.9%) 1,000 mls @ 1,000 mls/hr IV BOLUS ONE Stop: 02/25/22 14:47 Last Infusion: 02/25/22 14:44 Dose: 0 mls/hr Documented By: Admin: 02/25/22 14:39 Dose: 1,000 mls/hr Documented By: SONYA Piperacillin Sod/Tazobactam (Sod 4.5 gm/ Sodium Chloride) 100 mls @ 200 mls/hr IV NOW ONE Stop: 02/25/22 16:27 Last Infusion: 02/25/22 17:24 Dose: 0 mls/hr Documented By: Admin: 02/25/22 16:44 Dose: 200 mls/hr Documented By: MINAL Magnesium Sulfate (Magnesium Sulfate) 2 gm in 50 mls @ 25 mls/hr IV NOW ONE Stop: 02/25/22 18:27 Last Admin: 02/25/22 17:02 Dose: 25 mls/hr Documented By: MINAL Co-signed By: KING Ketorolac Tromethamine (Ketorolac 30 Mg/Ml Vial) 15 mg IV NOW ONE Stop: 02/25/22 18:26 Last Admin: 02/25/22 18:30 Dose: 15 mg Documented By: RLS Potassium Chloride (Potassium Chloride 20 Meq/15 Ml Udc) 40 meq PO NOW ONE Stop: 02/25/22 16:29 Last Admin: 02/25/22 16:47 Dose: 40 meq Documented By: MLM Propofol (Propofol 200 Mg/20 Ml Vial) 75 mg 1 mg/kg (75 mg) IV NOW ONE Stop: 02/25/22 14:56 Last Admin: 02/25/22 15:21 Dose: 50 mg Documented By: RL Consultations Consultation #1: Dr. Roy, hospitalist accepts for admission after repeat troponin shows his not trending upwards. Time: 18:59 Vital Signs Vital signs: Vital Signs - 8 hr 02/25/22 13:24 02/25/22 14:38 02/25/22 15:45 Temperature 98.4 F 99.1 F Pulse Rate 163 H 160 H 105 H Respiratory Rate 29 H 29 H Blood Pressure 132/82 140/70 125/65 Pulse Oximetry 95 98 Oxygen Delivery Method Room Air Oxygen Flow Rate 2 02/25/22 15:28 02/25/22 14:40 02/25/22 14:41 Temperature Pulse Rate 108 H 161 H Respiratory Rate 22 49 H Blood Pressure 126/67 Pulse Oximetry 93 Oxygen Delivery Method Oxygen Flow Rate 02/25/22 14:45 02/25/22 14:45 02/25/22 14:50 Temperature Pulse Rate 161 H Respiratory Rate 36 H Blood Pressure 130/75 133/75 Pulse Oximetry 91 Oxygen Delivery Method Oxygen Flow Rate 02/25/22 14:50 02/25/22 14:55 02/25/22 14:55 Temperature Pulse Rate 162 H 160 H Respiratory Rate 39 H 44 H Blood Pressure 129/77 Pulse Oximetry 93 93 Oxygen Delivery Method Oxygen Flow Rate 02/25/22 15:00 02/25/22 15:00 02/25/22 15:05 Temperature Pulse Rate 161 H Respiratory Rate 39 H Blood Pressure 122/59 L 132/73 Pulse Oximetry 94 Oxygen Delivery Method Oxygen Flow Rate 02/25/22 15:05 02/25/22 15:10 02/25/22 15:10 Temperature Pulse Rate 162 H 156 H Respiratory Rate 29 H 31 H Blood Pressure 129/73 Pulse Oximetry 93 94 Oxygen Delivery Method Oxygen Flow Rate 02/25/22 15:15 12/03/22 15:15 02/25/22 15:20 Temperature Pulse Rate 157 H 108 H Respiratory Rate 37 H 50 H Blood Pressure 134/77 Pulse Oximetry 95 95 Oxygen Delivery Method Oxygen Flow Rate 02/25/22 15:21 02/25/22 15:21 02/25/22 15:25 Temperature Pulse Rate 114 H Respiratory Rate 44 H Blood Pressure 125/63 129/63 Pulse Oximetry 95 Oxygen Delivery Method Oxygen Flow Rate 02/25/22 15:25 02/25/22 15:30 02/25/22 15:30 Temperature Pulse Rate 109 H 111 H Respiratory Rate 49 H 45 H Blood Pressure 115/65 Pulse Oximetry 95 95 Oxygen Delivery Method Oxygen Flow Rate 02/25/22 15:35 02/25/22 15:35 02/25/22 15:40 Temperature Pulse Rate 109 H 109 H Respiratory Rate 44 H 45 H Blood Pressure 123/66 Pulse Oximetry 90 L Oxygen Delivery Method Oxygen Flow Rate 02/25/22 15:41 02/25/22 15:41 02/25/22 15:45 Temperature Pulse Rate 109 H Respiratory Rate 48 H Blood Pressure 125/65 125/65 Pulse Oximetry 96 Oxygen Delivery Method Oxygen Flow Rate 02/25/22 15:45 02/25/22 15:50 02/25/22 15:50 Temperature Pulse Rate 108 H 108 H Respiratory Rate 44 H 44 H Blood Pressure 124/66 Pulse Oximetry 97 96 Oxygen Delivery Method Oxygen Flow Rate 02/25/22 15:55 02/25/22 15:55 02/25/22 16:00 Temperature Pulse Rate 108 H Respiratory Rate 46 H Blood Pressure 133/67 136/68 Pulse Oximetry 97 Oxygen Delivery Method Nasal Cannula Oxygen Flow Rate 3 02/25/22 16:00 02/25/22 16:05 02/25/22 16:05 Temperature Pulse Rate 109 H 107 H Respiratory Rate 33 H 43 H Blood Pressure 130/63 Pulse Oximetry 94 95 Oxygen Delivery Method Oxygen Flow Rate 02/25/22 16:10 02/25/22 16:10 02/25/22 16:15 Temperature Pulse Rate 107 H Respiratory Rate 40 H Blood Pressure 127/65 129/62 Pulse Oximetry 95 Oxygen Delivery Method Oxygen Flow Rate 02/25/22 16:15 02/25/22 16:20 02/25/22 16:20 Temperature Pulse Rate 107 H 106 H Respiratory Rate 34 H 45 H Blood Pressure 129/69 Pulse Oximetry 94 94 Oxygen Delivery Method Oxygen Flow Rate 02/25/22 16:25 02/25/22 16:25 02/25/22 16:30 Temperature Pulse Rate 109 H Respiratory Rate 42 H Blood Pressure 129/66 128/62 Pulse Oximetry 95 Oxygen Delivery Method Nasal Cannula Oxygen Flow Rate 3 02/25/22 16:30 02/25/22 16:35 02/25/22 16:35 Temperature Pulse Rate 107 H 107 H Respiratory Rate 42 H 42 H Blood Pressure 125/62 Pulse Oximetry 94 93 Oxygen Delivery Method Oxygen Flow Rate 02/25/22 16:40 02/25/22 16:40 02/25/22 16:45 Temperature Pulse Rate 107 H Respiratory Rate 39 H Blood Pressure 124/58 L 119/57 L Pulse Oximetry 94 Oxygen Delivery Method Oxygen Flow Rate 02/25/22 16:45 02/25/22 16:50 02/25/22 16:50 Temperature Pulse Rate 108 H 109 H Respiratory Rate 40 H 33 H Blood Pressure 132/63 Pulse Oximetry 94 94 Oxygen Delivery Method Oxygen Flow Rate 02/25/22 16:55 02/25/22 16:55 02/25/22 17:00 Temperature Pulse Rate 107 H Respiratory Rate 33 H Blood Pressure 138/69 137/66 Pulse Oximetry 95 Oxygen Delivery Method Oxygen Flow Rate 02/25/22 17:00 02/25/22 17:05 02/25/22 17:05 Temperature Pulse Rate 108 H 108 H Respiratory Rate 42 H 43 H Blood Pressure 121/58 L Pulse Oximetry 94 95 Oxygen Delivery Method Oxygen Flow Rate 02/25/22 17:19 02/25/22 17:22 02/25/22 17:22 Temperature Pulse Rate 109 H 109 H Respiratory Rate 46 H Blood Pressure 123/58 L Pulse Oximetry 94 Oxygen Delivery Method Oxygen Flow Rate 02/25/22 17:25 02/25/22 17:25 02/25/22 17:30 Temperature Pulse Rate 108 H Respiratory Rate 40 H Blood Pressure 111/59 L 101/55 L Pulse Oximetry 94 Oxygen Delivery Method Oxygen Flow Rate 02/25/22 17:30 02/25/22 17:35 02/25/22 17:35 Temperature Pulse Rate 107 H 108 H Respiratory Rate Blood Pressure 116/64 Pulse Oximetry 92 93 Oxygen Delivery Method Oxygen Flow Rate 02/25/22 17:40 02/25/22 17:40 02/25/22 17:45 Temperature Pulse Rate 108 H 106 H Respiratory Rate Blood Pressure 122/62 Pulse Oximetry 95 94 Oxygen Delivery Method Oxygen Flow Rate 02/25/22 17:50 02/25/22 17:50 02/25/22 17:55 Temperature Pulse Rate 106 H 105 H Respiratory Rate Blood Pressure 126/59 L Pulse Oximetry 93 95 Oxygen Delivery Method Oxygen Flow Rate 02/25/22 17:55 02/25/22 18:00 02/25/22 18:00 Temperature Pulse Rate 105 H Respiratory Rate Blood Pressure 129/60 122/62 Pulse Oximetry 95 Oxygen Delivery Method Oxygen Flow Rate 02/25/22 18:05 02/25/22 18:05 02/25/22 18:11 Temperature Pulse Rate 106 H 106 H Respiratory Rate 40 H Blood Pressure 132/66 Pulse Oximetry 95 94 Oxygen Delivery Method Oxygen Flow Rate 02/25/22 18:11 02/25/22 18:15 02/25/22 18:15 Temperature Pulse Rate 105 H Respiratory Rate 34 H Blood Pressure 133/60 125/59 L Pulse Oximetry 96 Oxygen Delivery Method Oxygen Flow Rate 02/25/22 18:20 02/25/22 18:20 02/25/22 18:25 Temperature Pulse Rate 107 H 104 H Respiratory Rate 26 H 29 H Blood Pressure 127/64 Pulse Oximetry 96 96 Oxygen Delivery Method Oxygen Flow Rate 02/25/22 18:25 02/25/22 18:30 02/25/22 18:30 Temperature Pulse Rate 109 H Respiratory Rate 26 H Blood Pressure 125/60 149/111 H Pulse Oximetry 95 Oxygen Delivery Method Oxygen Flow Rate 02/25/22 18:35 02/25/22 18:35 02/25/22 18:40 Temperature Pulse Rate 103 H 104 H Respiratory Rate 18 20 Blood Pressure 131/67 Pulse Oximetry 95 96 Oxygen Delivery Method Oxygen Flow Rate 02/25/22 18:40 02/25/22 18:45 02/25/22 18:45 Temperature Pulse Rate 101 H Respiratory Rate 20 Blood Pressure 128/66 127/64 Pulse Oximetry 94 Oxygen Delivery Method Oxygen Flow Rate 02/25/22 18:50 02/25/22 18:50 02/25/22 18:55 Temperature Pulse Rate 102 H 103 H Respiratory Rate 23 27 H Blood Pressure 127/70 Pulse Oximetry 94 96 Oxygen Delivery Method Oxygen Flow Rate 02/25/22 18:55 Temperature Pulse Rate Respiratory Rate Blood Pressure 131/70 Pulse Oximetry Oxygen Delivery Method Oxygen Flow Rate MDM - Chest Pain Lab Data Result diagrams: 02/25/22 15:41 02/25/22 15:41 Labs: Lab Results 02/25/22 02/25/22 02/25/22 Range/Units 13:30 13:48 15:41 WBC 6.9 (4.5-11.0) X10^3/uL RBC 4.67 (4.5-5.9) X10^6/uL Hgb 13.6 (13.5-17.5) g/dL Hct 41.8 (41-53) % MCV 89.4 (80-100) fL MCH 29.2 (26-34) PG MCHC 32.7 (30-36) % RDW 14.0 (11.6-14.8) % Plt Count 289 (150-400) X10^3/uL Neut % (Auto) 86.7 H (50-75) % Lymph % (Auto) 4.8 L (25-40) % Gilliam % (Auto) 7.3 (3-14) % Eos % (Auto) 0.0 L (2-4) % Baso % (Auto) 1.2 (0-2) % Neut # (Auto) 6000 (4982-9718) /uL Lymph # (Auto) 300 L (0696-3788) /uL Gilliam # (Auto) 500 (0-900) /uL Eos # (Auto) 0 (0-450) /uL Baso # (Auto) 100 (0-100) /uL PT (10.1-12.7) SECONDS INR (0.9-1.3) APTT (26-36) SECONDS Sodium (137-145) mmol/L Potassium (3.4-5.1) mmol/L Chloride (98-107) mmol/L Carbon Dioxide (22-32) mmol/L BUN (9-20) mg/dL Creatinine (0.66-1.25) mg/dL Estimated GFR (>60) mL/min BUN/Creatinine Ratio (6-22) Glucose (80-110) mg/dL Lactate (0.7-2.1) mmol/L Calcium (8.4-10.2) mg/dL Magnesium (1.6-2.3) mg/dL Total Bilirubin (0.2-1.3) mg/dL AST (17-59) IU/L ALT (<50) IU/L Alkaline Phosphatase (38-126) U/L Total Creatine Kinase (55-170) U/L CK-MB (CK-2) (<2.37) ng/mL CK-MB (CK-2) Rel Index (1.5-5.0) % Troponin I (0.01-0.034) ng/mL NT-Pro-B Natriuret Pep 1520 H (<125) pg/mL Total Protein (6.3-8.2) g/dL Albumin (3.5-5.0) g/dL Globulin (1.7-4.1) g/dL Albumin/Globulin Ratio (1.0-2.8) Lipase (23-300) U/L Procalcitonin (<0.5) ng/mL SARS-CoV-2 (PCR) Negative (Negative) Influenza A (RT-PCR) Flu a positive H (NEGATIVE) Influenza B (RT-PCR) Flu b negative (NEGATIVE) RSV (PCR) Negative (Negative) 02/25/22 02/25/22 02/25/22 Range/Units 15:41 15:41 15:41 WBC (4.5-11.0) X10^3/uL RBC (4.5-5.9) X10^6/uL Hgb (13.5-17.5) g/dL Hct (41-53) % MCV (80-100) fL MCH (26-34) PG MCHC (30-36) % RDW (11.6-14.8) % Plt Count (150-400) X10^3/uL Neut % (Auto) (50-75) % Lymph % (Auto) (25-40) % Gilliam % (Auto) (3-14) % Eos % (Auto) (2-4) % Baso % (Auto) (0-2) % Neut # (Auto) (5044-8197) /uL Lymph # (Auto) (8731-9630) /uL Gilliam # (Auto) (0-900) /uL Eos # (Auto) (0-450) /uL Baso # (Auto) (0-100) /uL PT 17.5 H (10.1-12.7) SECONDS INR 1.5 H (0.9-1.3) APTT 31 (26-36) SECONDS Sodium 136 L (137-145) mmol/L Potassium 2.7 L* (3.4-5.1) mmol/L Chloride 96 L (98-107) mmol/L Carbon Dioxide 22 (22-32) mmol/L BUN 10 (9-20) mg/dL Creatinine 0.49 L (0.66-1.25) mg/dL Estimated GFR > 60 (>60) mL/min BUN/Creatinine Ratio 20.4 (6-22) Glucose 224 H (80-110) mg/dL Lactate 1.5 (0.7-2.1) mmol/L Calcium 8.0 L (8.4-10.2) mg/dL Magnesium 1.5 L (1.6-2.3) mg/dL Total Bilirubin 0.7 (0.2-1.3) mg/dL AST 43 (17-59) IU/L ALT 32 (<50) IU/L Alkaline Phosphatase 116 (38-126) U/L Total Creatine Kinase 799 H (55-170) U/L CK-MB (CK-2) 3.24 H (<2.37) ng/mL CK-MB (CK-2) Rel Index 0.4 L (1.5-5.0) % Troponin I 0.023 (0.01-0.034) ng/mL NT-Pro-B Natriuret Pep (<125) pg/mL Total Protein 6.8 (6.3-8.2) g/dL Albumin 3.7 (3.5-5.0) g/dL Globulin 3.1 (1.7-4.1) g/dL Albumin/Globulin Ratio 1.2 (1.0-2.8) Lipase 31 (23-300) U/L Procalcitonin (<0.5) ng/mL SARS-CoV-2 (PCR) (Negative) Influenza A (RT-PCR) (NEGATIVE) Influenza B (RT-PCR) (NEGATIVE) RSV (PCR) (Negative) 02/25/22 02/25/22 Range/Units 15:41 18:15 WBC (4.5-11.0) X10^3/uL RBC (4.5-5.9) X10^6/uL Hgb (13.5-17.5) g/dL Hct (41-53) % MCV (80-100) fL MCH (26-34) PG MCHC (30-36) % RDW (11.6-14.8) % Plt Count (150-400) X10^3/uL Neut % (Auto) (50-75) % Lymph % (Auto) (25-40) % Gilliam % (Auto) (3-14) % Eos % (Auto) (2-4) % Baso % (Auto) (0-2) % Neut # (Auto) (6414-4378) /uL Lymph # (Auto) (2604-3236) /uL Gilliam # (Auto) (0-900) /uL Eos # (Auto) (0-450) /uL Baso # (Auto) (0-100) /uL PT (10.1-12.7) SECONDS INR (0.9-1.3) APTT (26-36) SECONDS Sodium (137-145) mmol/L Potassium (3.4-5.1) mmol/L Chloride (98-107) mmol/L Carbon Dioxide (22-32) mmol/L BUN (9-20) mg/dL Creatinine (0.66-1.25) mg/dL Estimated GFR (>60) mL/min BUN/Creatinine Ratio (6-22) Glucose (80-110) mg/dL Lactate (0.7-2.1) mmol/L Calcium (8.4-10.2) mg/dL Magnesium (1.6-2.3) mg/dL Total Bilirubin (0.2-1.3) mg/dL AST (17-59) IU/L ALT (<50) IU/L Alkaline Phosphatase (38-126) U/L Total Creatine Kinase (55-170) U/L CK-MB (CK-2) (<2.37) ng/mL CK-MB (CK-2) Rel Index (1.5-5.0) % Troponin I 0.026 (0.01-0.034) ng/mL NT-Pro-B Natriuret Pep (<125) pg/mL Total Protein (6.3-8.2) g/dL Albumin (3.5-5.0) g/dL Globulin (1.7-4.1) g/dL Albumin/Globulin Ratio (1.0-2.8) Lipase (23-300) U/L Procalcitonin 26.2 H (<0.5) ng/mL SARS-CoV-2 (PCR) (Negative) Influenza A (RT-PCR) (NEGATIVE) Influenza B (RT-PCR) (NEGATIVE) RSV (PCR) (Negative) Imaging Data CT scan - abdomen/pelvis: Radiologist's Impression: pentin, [id number] Reductase Inhibitor, metformin (More??) Close Abdomen/Pelvis CT (Signed) Junior Jimenez - 02/25/22 Chest X-Ray (Signed) Junior Jimenez - 02/25/22 Chest X-Ray (Signed) Branden Reyna - 06/02/21 Abdomen/Pelvis CT (Signed) Sj Rankin - 06/02/21 Abdomen Ultrasound (Signed) Savage Early - 06/02/21 Chest X-Ray (Signed) Savage Early - 06/02/21 Telemetry Strips 05/30/21 Hepatobiliary Scan Nuclear Medicine (Signed) Nazanin Penny - 03/10/21 Abdomen Ultrasound (Signed) Branden Reyna - 03/10/21 Chest/Abdomen/Pelvis CTA (Signed) Timo Cooper - 03/09/21 Echocardiogram Ultrasound (Signed) Shavon Monte - 03/09/21 Chest X-Ray (Signed) Farzana Allen - 03/09/21 Telemetry Strips 03/07/21 Telemetry Strips 03/07/21 Abdomen/Pelvis CT (Signed) Robert Guevara - 03/06/21 Telemetry Strips 03/26/20 Abdomen/Pelvis CT (Signed) Arpit Esparza - 03/26/20 Chest X-Ray (Signed) Arpit Esparza - 03/26/20 Orbits/Face/Neck MRI (Signed) Arpit Esparza - 09/30/19 Abdomen/Pelvis CT (Signed) Pinky Rosario - 08/29/19 Abdomen/Pelvis CT (Signed) Pinky Rosario - 08/25/19 Abdomen MRI (Signed) Jacobo De Anda - 04/29/19 Abdomen Ultrasound (Signed) Arpit Esparza - 04/28/19 Abdomen/Pelvis CT (Signed) Karolyn Mohr - 04/28/19 Abdomen/Pelvis CT (Signed) Clif Munguia - 02/12/19 KUB X-Ray (Signed) Clif Munguia - 03/28/18 Telemetry Strips 03/24/18 Abdomen/Pelvis CT (Signed) Erick Spence - 03/24/18 Abdomen/Pelvis CT (Signed) Jacobo De Anda - 12/31/17 Abdomen/Pelvis CT (Signed) Jacobo De Anda - 11/20/17 Chest/Abdomen X-ray (Signed) Clif Munguia - 10/12/17 Abdomen Ultrasound (Signed) Pinky Rosario - 10/12/17 Abdomen/Pelvis CT (Signed) Sj Rankin - 09/25/17 Outside DI 05/13/02 Launch?[place] [address] CT Scan Report Signed Patient: Jann Diehl MR#: [id number] : 1955 Acct:[id number] Age/Sex: 67 / M Date of Service: 02/25/22 Loc: ED Accession Number: [id number] ?? Procedure: CT kidney ureter bladder (KUB) Ordering Provider: Laina Andres D.O. PROCEDURE:? CT KIDNEY URETER BLADDER (KUB) ? INDICATIONS:? vomiting/no BM several days. ? TECHNIQUE:? Axial sections were acquired from the lung bases to the pubic symphysis.? Coronal and sagittal reformats were performed.? For radiation dose reduction, the following was used: ?automated exposure control, adjustment of mA and/or kV according to patient size.? ? COMPARISON:? None. ? FINDINGS:? Moderate volume stool in the colon which in the sigmoid colon and rectum is high density suggesting inspissated stool.? No abnormally dilated loop of bowel.? Sigmoid diverticulosis.? Appendix normal.? Grossly normal appearance of the liver, spleen, pancreas, adrenal glands, and kidneys without acute finding.? Cholecystectomy.? Nonaneurysmal abdominal aorta.? Iliac and aortic atherosclerosis.? Small right pleural effusion with right lower lobe consolidation and to a lesser degree patchy consolidative nodules in the left lower lobe with tree-in-bud configuration. IMPRESSION:? Bilateral lower lobe pneumonias, right greater than left, with small right parapneumonic pleural effusion.? Aspiration pneumonia possible given the bilateral lower lobe distribution. ? No bowel obstruction.? Moderate volume stool in the colon suggesting constipation. ? ? Dictated by: Junior Jimenez M.D. on 02/25/2022 at 18:00 ? ? Approved by: Junior Jimenez M.D. on 02/25/2022 at 18:02?? Chest x-ray: Radiologist's Impression: [address] [address] XRay Report Signed Patient: Jann Diehl MR#: [id number] : 1955 Acct:[id number] Age/Sex: 67 / M Date of Service: 02/25/22 Loc: ED Accession Number: [id number] ?? Procedure: XR chest 1V Ordering Provider: Laina Andres D.O. PROCEDURE:? XR CHEST 1V ? INDICATIONS:? Chest pain ? TECHNIQUE:? One view of the chest was acquired.? ? COMPARISON:? [facility], CR, XR CHEST 1V, 06/02/2021, 20:31. ? FINDINGS:? ? Surgical changes and devices:? None.? ? Lungs and pleura:? Patchy right midlung airspace disease.? No pleural effusions or pneumothorax.? ? Mediastinum:? Mediastinal contours appear normal.? Heart size is normal.? ? Bones and chest wall:? No suspicious bony lesions.? Overlying soft tissues appear unremarkable.? ? IMPRESSION:? Patchy airspace disease in the right lung.? Findings presumably represent infection.? No acute finding otherwise. ? ? Dictated by: Junior Jimenez M.D. on 02/25/2022 at 14:18 ? ? Approved by: Junior Jimenez M.D. on 02/25/2022 at 14:18 ECG Data Attestation: I personally reviewed and interpreted this ECG as follows: Interpretation: Supraventricular tachycardia, rate of 161, QRS of 112, QTC of 412. EKG 2. Shows what appears to probably be atrial flutter versus SVT with a rate of 162, QRS of 114 and QTC of 413. Patient does have ST depression diffusely without but no elevation noted. EKG after cardioversion shows sinus tachycardia rate of 113 CT 138 QRS of 102 QTC 438. Patient does have ST depression lateral leads, no elevation noted does appear different from prior in terms MDM Narrative Medical decision making narrative: This is a 67-year-old male who presents with appears to be likely atrial flutter with RVR, patient is properly anticoagulated he had an echo in the past year that showed 45-50% EF, he has had prior cardioversions he states has tolerated well. He is on Pradaxa. Patient was cardioverted is still slightly tachycardic but appears to be sinus there are P waves with a QRS is he does still have some ST depression but he feels significantly better was found to be hypokalemic and hypomagnesemic which is likely precipitating his RVR, patient has been vomiting for the past several days he has had influenza A she is positive for today but has also been quite constipated so CT abdomen pelvis was obtained which does not show bowel obstruction but does show bilateral pneumonia with a very small parapneumonic effusion, he has not been persistently hypoxic but plan for a dmission. Patient was covered with IV antibiotics, lactate cultures and procalcitonin was obtained. Profile is elevated at 26 he has not shown any signs of hypotension, no septic shock. Patient was not given significant fluids as he appears to have component of CHF and would not be appropriate candidate for large fluid bolus. Discussed with hospitalist who kindly accepts for admission after repeat troponin shows it is not elevating. Critical Care Time Critical Care Time Critical Care Time: Yes Total Critical Care Time: 45 Attestation: The high probability of a clinically significant, sudden or life threatening deterioration of the [cardiac, pulm] system(s) required my full and direct attention, intervention and personal management. The aggregate critical care time was [] minutes. This time is in addition to time spent performing reported procedures but includes the following: [x] Data Review and interpretation [x] Patient assessment and monitoring of vital signs [x] Documentation [x] Medication orders and management Discharge Plan Departure Patient Disposition: Admitted As Inpatient Clinical Impression: Atrial flutter with rapid ventricular response, Hypokalemia, Hypomagnesemia, Influenza A, Pneumonia, Vomiting Admit Date/Time: 02/25/22 19:14
[2022-02-25 14:20] LABS: Influenza A - CEPHEID Flu A POSITIVE (NEGATIVE); Influenza B - CEPHEID Flu B NEGATIVE (NEGATIVE); Respiratory Syncytial Virus Negative (Negative)
[2022-02-25 14:22] LABS: COVID-19 CEPHEID 4-PLEX PCR Negative (Negative)
[2022-02-25] MEDS: dilTIAZem 5 MG/ML SDV 10 MG IV (14:38)
[2022-02-25] MEDS: ONDANSETRON 4 MG/2 ML INJ IV (14:39)
[2022-02-25] MEDS: SODIUM CHLORIDE 0.9% 1,000 ML 1000 ML IV (14:39)
[2022-02-25] MEDS: ASPIRIN 81 MG CHEW TAB 324 MG PO (14:46)
[2022-02-25] MEDS: propofoL 200 MG/20 ML VIAL 75 MG IV (15:21)
[2022-02-25 15:55] LABS: Add Manual Diff / Slide Review NO; Basophils Absolute Auto 100 /uL (0-100); Basophils Percent Auto 1.2 % (0-2); Eosinophils Absolute Auto 0 /uL (0-450); Hematocrit 41.8 % (41-53); Hemoglobin 13.6 g/dL (13.5-17.5); Lymphocytes Absolute Auto 300 /uL (1100-4500); Lymphocytes Percent Auto 4.8 % (25-40); Mean Corpuscular HGB Conc 32.7 % (30-36); Mean Corpuscular Hemoglobin 29.2 PG (26-34); Mean Corpuscular Volume 89.4 fL (80-100); Monocytes Absolute Auto 500 /uL (0-900); Monocytes Percent Auto 7.3 % (3-14); Neutrophils Absolute Auto 6000 /uL (1500-7000); Neutrophils Percent Auto 86.7 % (50-75); Platelet Count 289 X10^3/uL (150-400); Red Blood Cell Count 4.67 X10^6/uL (4.5-5.9); White Blood Cell Count 6.9 X10^3/uL (4.5-11.0)
[2022-02-25 16:01] LABS: INR 1.5 (0.9-1.3); Prothrombin Time 17.5 SECONDS (10.1-12.7)
[2022-02-25 16:03] LABS: PTT Partial Thromboplastin Tim 31 SECONDS (26-36)
[2022-02-25 16:07] LABS: Alanine Aminotransferase 32 IU/L (<50); Albumin 3.7 g/dL (3.5-5.0); Albumin Globulin Ratio 1.2 (1.0-2.8); Alkaline Phosphatase 116 U/L (38-126); Aspartate Aminotransferase 43 IU/L (17-59); BUN Creatinine Ratio 20.4 (6-22); Bilirubin Total 0.7 mg/dL (0.2-1.3); Blood Urea Nitrogen 10 mg/dL (9-20); Carbon Dioxide 22 mmol/L (22-32); Chloride 96 mmol/L (98-107); Creatine Kinase 799 U/L (55-170); Estimated Glomerular Filt Rate > 60 mL/min (>60); Globulin 3.1 g/dL (1.7-4.1); Glucose 224 mg/dL (80-110); Lipase 31 U/L (23-300); Magnesium 1.5 mg/dL (1.6-2.3); Sodium 136 mmol/L (137-145); Total Protein 6.8 g/dL (6.3-8.2)
[2022-02-25 16:08] LABS: Lactate (Lactic Acid) 1.5 mmol/L (0.7-2.1)
[2022-02-25 16:16] LABS: NT-proBNP (BNP-Adult 18+) 1520 pg/mL (<125)
[2022-02-25 16:18] LABS: Troponin I 0.023 ng/mL (0.01-0.034)
[2022-02-25 16:22] LABS: HEMOLYSIS 33 (0-50)
[2022-02-25 16:24] LABS: Procalcitonin 26.2 ng/mL (<0.5)
[2022-02-25 16:27] LABS: Potassium 2.7 mmol/L (3.4-5.1)
--- NOTE | 2022-02-25 16:34 | DI.CT.S_ITS ---
PROCEDURE: CT KIDNEY URETER BLADDER (KUB) INDICATIONS: vomiting/no BM several days. TECHNIQUE: Axial sections were acquired from the lung bases to the pubic symphysis. Coronal and sagittal reformats were performed. For radiation dose reduction, the following was used: automated exposure control, adjustment of mA and/or kV according to patient size. COMPARISON: None. FINDINGS: Moderate volume stool in the colon which in the sigmoid colon and rectum is high density suggesting inspissated stool. No abnormally dilated loop of bowel. Sigmoid diverticulosis. Appendix normal. Grossly normal appearance of the liver, spleen, pancreas, adrenal glands, and kidneys without acute finding. Cholecystectomy. Nonaneurysmal abdominal aorta. Iliac and aortic atherosclerosis. Small right pleural effusion with right lower lobe consolidation and to a lesser degree patchy consolidative nodules in the left lower lobe with tree-in-bud configuration. IMPRESSION: Bilateral lower lobe pneumonias, right greater than left, with small right parapneumonic pleural effusion. Aspiration pneumonia possible given the bilateral lower lobe distribution. No bowel obstruction. Moderate volume stool in the colon suggesting constipation. Dictated by: Junior Jimenez M.D. on 02/25/2022 at 18:00 Approved by: Junior Jimenez M.D. on 02/25/2022 at 18:02
[2022-02-25] MEDS: PIPERACILLIN/TAZO 4.5 GM in SODIUM CHLORIDE 0.9% 100 ML IV (16:44)
[2022-02-25] MEDS: POTASSIUM CHLORIDE 20 MEQ/15 ML UDC 40 MEQ PO (16:47)
[2022-02-25] MEDS: POTASSIUM CHLORIDE IN WATER 10 MEQ/100 ML PIGGYBACK 100 MEQ IV ×4 (17:00→21:55)
[2022-02-25] MEDS: MAGNESIUM SULFATE 2 GM/50 ML PIGGYBACK IV (17:02)
[2022-02-25 17:32] LABS: CKMB % Relative Index 0.4 % (1.5-5.0); Creatine Kinase MB 3.24 ng/mL (<2.37)
[2022-02-25] MEDS: KETOROLAC 30 MG/ML VIAL 15 MG IV (18:30)
[2022-02-25 18:51] LABS: Troponin I 0.026 ng/mL (0.01-0.034)
[2022-02-25] MEDS: VANCOMYCIN 1,500 MG/300 ML PIGGYBACK 200 MG IV (19:33)
--- NOTE | 2022-02-25 21:30 | PC.NURSE ---
4th bag KCL unavailable in Pyxis. New order placed for last of 4 bags KCL.
[2022-02-25] MEDS: ONDANSETRON 4 MG/2 ML INJ (22:02)
[2022-02-26] VITALS (9 sets, daily range): BP systolic 123–135; BP diastolic 57–69; PULSE 96–105; RESP 20–30; TEMP 36.6–37.8; O2SAT 94–99
[2022-02-26 01:13] LABS: Add Manual Diff / Slide Review YES; Hematocrit 33.2 % (41-53); Hemoglobin 11.2 g/dL (13.5-17.5); Mean Corpuscular HGB Conc 33.9 % (30-36); Mean Corpuscular Hemoglobin 29.8 PG (26-34); Mean Corpuscular Volume 87.9 fL (80-100); Platelet Count 293 X10^3/uL (150-400); Red Blood Cell Count 3.77 X10^6/uL (4.5-5.9); Red Cell Distribution Width 14.1 % (11.6-14.8); White Blood Cell Count 8.5 X10^3/uL (4.5-11.0)
[2022-02-26 01:17] LABS: Alanine Aminotransferase 28 IU/L (<50); Albumin Globulin Ratio 1.2 (1.0-2.8); Alkaline Phosphatase 103 U/L (38-126); Aspartate Aminotransferase 32 IU/L (17-59); BUN Creatinine Ratio 20.6 (6-22); Bilirubin Total 0.5 mg/dL (0.2-1.3); Blood Urea Nitrogen 13 mg/dL (9-20); Calcium 7.3 mg/dL (8.4-10.2); Carbon Dioxide 24 mmol/L (22-32); Chloride 100 mmol/L (98-107); Estimated Glomerular Filt Rate > 60 mL/min (>60); Globulin 2.6 g/dL (1.7-4.1); Glucose 170 mg/dL (80-110); HEMOLYSIS < 15 (0-50); Potassium 2.9 mmol/L (3.4-5.1); Sodium 134 mmol/L (137-145); Total Protein 5.6 g/dL (6.3-8.2)
[2022-02-26 01:28] LABS: Troponin I 0.028 ng/mL (0.01-0.034)
[2022-02-26 01:37] LABS: Magnesium 1.9 mg/dL (1.6-2.3)
[2022-02-26 01:47] LABS: NT-proBNP (BNP-Adult 18+) 932 pg/mL (<125)
[2022-02-26] MEDS: ACETAMINOPHEN 325 MG TABLET 650 MG PO ×3 (02:22→23:52)
[2022-02-26] MEDS: LORazepam 0.5 MG TABLET PO ×2 (02:22→09:35)
[2022-02-26] MEDS: diphenhydrAMINE 25 MG TABLET PO (02:24)
[2022-02-26 02:25] LABS: Erythrocyte Sedimentation Rate 61 MM/HR (0-15)
[2022-02-26 02:28] LABS: Procalcitonin 28.7 ng/mL (<0.5)
[2022-02-26 03:07] LABS: Neutrophils Absolute Manual 7480 /uL (3000-5900); RBC Morphology Normal Morphology; Total Cells Counted 100
[2022-02-26] MEDS: SODIUM CHLORIDE 0.9% 1,000 ML 40 ML IV (05:26)
[2022-02-26 05:47] LABS: C-Reactive Protein Quant 34.3 mg/dL (<1.0)
[2022-02-26] MEDS: levoFLOXacin 750 MG/150 ML PIGGYBACK 100 MG IV (06:26)
[2022-02-26 06:30] LABS: Troponin I 0.023 ng/mL (0.01-0.034)
[2022-02-26] MEDS: PIPERACILLIN/TAZO 3.375 GM in SODIUM CHLORIDE 0.9% 100 ML IV (06:38)
[2022-02-26 06:48] LABS: Thyroid Stimulating Hormone 0.435 uIU/mL (0.47-4.68)
[2022-02-26] MEDS: ALBUTEROL/IPRATROPIUM 3 ML AMPUL INH ×3 (07:06→19:32)
[2022-02-26] MEDS: POTASSIUM CHLORIDE 20 MEQ TAB 40 MEQ PO ×2 (08:40→16:32)
[2022-02-26] MEDS: AZITHROMYCIN 250 MG TABLET 500 MG PO (09:00)
[2022-02-26] MEDS: lisinopriL 5 MG TABLET 2.5 MG PO (09:34)
[2022-02-26] MEDS: CLOPIDOGREL 75 MG TABLET PO (09:35)
[2022-02-26] MEDS: DABIGATRAN 75 MG CAPSULE 150 MG PO ×2 (09:35→20:38)
[2022-02-26] MEDS: DULOXETINE 30 MG CAPSULE 60 MG PO (09:35)
[2022-02-26] MEDS: METOPROLOL IR 25 MG TABLET 12.5 MG PO ×2 (09:36→20:39)
[2022-02-26] MEDS: FUROSEMIDE 20 MG/2 ML VIAL IV (09:36)
[2022-02-26] MEDS: POTASSIUM CHLORIDE IN WATER 10 MEQ/100 ML PIGGYBACK 100 MEQ IV ×5 (09:44→14:37)
[2022-02-26] MEDS: LIPASE PO ×3 (09:45→16:36)
[2022-02-26] MEDS: PROTEASE PO ×3 (09:45→16:36)
[2022-02-26] MEDS: AMYLASE PO ×3 (09:45→16:36)
[2022-02-26] MEDS: INSULIN LISPRO 100 UNIT/ML 3ML VIAL SUBCUT ×3 (09:58→20:40)
[2022-02-26 10:06] LABS: HCO3 ABG 23 mmol/L (22-26); PCO2 ABG 33.5 mmHg (35-45); PO2 ABG 66 mmHg (80-100); TCO2 ABG 24 mmol/L (21-31); pH ABG 7.45 (7.35-7.45)
[2022-02-26 10:07] LABS: Fractionated Inspired Oxygen 21; Oxygen Saturation ABG 94 % (95-100)
[2022-02-26] MEDS: cefTRIAXone 1,000 MG in SODIUM CHLORIDE 0.9% 100 ML 200 MG IV (10:17)
--- NOTE | 2022-02-26 10:42 | P.HP_ITS ---
History of Present Illness History of Present Illness Date Patient Seen: 02/26/22 Time Patient Seen: 00:20 Chief complaint: SOB,CHEST PAIN,FEVER Narrative: Jann Diehl?is a 66-year-old male with history of paroxysmal AFib on Pradaxa and Eliquis, chronic pancreatic insufficiency (typically controlled at home with pancreatic enzymes, oxycodone, Zofran and Phenergan), hypertension, PAD with HX (2005) of right lower extremity angioplasty with stent place ment/removal & left angioplasty insulin-dependent diabetes, narcolepsy with cataplexy, hyperlipidemia, history(06/14) cholecystectomy presented today feeling generally unwell he states he is noted his heart rate has been fast on and off for the entire week, vomiting x7 days, with occasional bouts of diarrhea in first couple of days, but no BM x3-4days decreased oral intake, believes this to be initially a flare of his chronic pancreatic insufficiency s/s stated had attempted cardioversion at home per oral medications himself but was unsuccessful, tachycardia became more consistent and persistent this a.m. patient can since his AFib with RVR, endorses severe diaphoresis (ED had to change his sheets), SOB, productive cough, intersotal pain with deep breathing & cough, denies fever, chest pain but has fshort of breath.? He states he is had abdominal discomfort but at normal wiht a flare of his pancreatic insuf..? He states he has been vomiting for several days and has not had a bowel movement for at least 3 or 4 days.? He states he is having flatus or passing gas regularly.? Patient denies new swelling in his extremities.? He denies fevers but has felt chilled.? He is had nonproductive cough.? He states he does take his blood thinner regularly.? Patient notes he is had multiple cardioversions in the past without issue, at least 2 this year alone.? He states he is had a cardiac catheterization but it has been some time, he states he is never had any cardiac stents he denies ablation.? He denies CABG or other cardiac interventions.? Patient is allergic to sulfa/ iodine (anaphylaxis) he states for CT scans they usually use pretreatment with Benadryl Solu-Medrol, allergic to s ulfa and can not take Lasix secondary to it tail of sulfa. Patient notes that he frequently vomits and aspirates secondary to his chronic pancreatitis insufficiency. Review patient's last echo 03/09/[address] Hui porter EF 45- 50%, when discussing possible stress test patient's stated ?I will not do the nuclear med stress test I will however do the exercise treadmill test where I will drop ?. Patient was advised that we would not be doing exercise stress test. Patient developed AFib with RVR in ED and was successfully cardioverted, patient also came in with O2 saturations in the 80s with any movement or exertion on room air acute respiratory failure with hypoxia, patient's CBC was normal no left shift noted sodium 36, potassium 2.7, chloride 96, creatinine 0.49 glucose 221- gap 18, sofa: 1. PT 17.5 INR was normal at 1.5 calcium 8.0 magnesium was 1.5 patient's GFR was WNL, total creatinine kinase 799, CK-2:3.24 CK-to RI 0.4 troponins 0.023, 0.026, 0.028, procalcitonin was 26.2 BNP was 1520, COVID negative, RSV negative patient's chest x-ray demonstrated patchy right mid lung airspace disease possible pneumonia AP CT noted bilateral lower lobe pneumonia right greater than left with small parapneumonic pleural effusion-suggestive possible community-acquired pneumonia versus aspiration pneumonia. Patient admitted for atrial fibrillation with RVR, acute respiratory failure 6 L nasal cannula O2 saturation 95% with hypoxia secondary to positive influenza a and pneumonia, with hypokalemia, hypomagnesemia, mild DKA, acute new onset heart failure, in the setting of acute on chronic pancreatic insufficiency exacerbation. Patient History Medical History Acute dehydration Atrial flutter with rapid ventricular response Campylobacter enteritis Claudication in peripheral vascular disease Enteritis, enteropathogenic E. coli Exocrine pancreatic insufficiency Gastroenteritis GERD (gastroesophageal reflux disease) History of cardioversion (03/07/21) HTN (hypertension) Hyperlipidemia Insulin dependent diabetes mellitus with complications Narcolepsy Nausea vomiting and diarrhea Pancreatic endocrine tumor Pancreatitis Paroxysmal atrial fibrillation Peripheral vascular disease Psoriasis Sepsis Surgical History H/O exploratory laparotomy History of epididymectomy History of femoropopliteal bypass Hx of biopsy Family & Social History Family History Father Colon cancer Mother Narcolepsy Grandmother Narcolepsy Social History: household members significant other Safety & Behavioral: Feels Safe in Current Yes Environment Been Physically Hurt or No Threatened By a Person Tobacco & Substance use: Tobacco type cigarettes Smoking Status Former smoker alcohol intake former alcohol intake frequency 0-2 drinks per day Substance Use Type marijuana Meds Home Medications and Allergies Home Medications Medication Instructions Recorded Confirmed Type clopidogrel 75 mg tablet (Plavix) 75 mg PO QAM ##0 04/15/08 02/25/22 History acetaminophen 325 mg tablet (Pain 500 mg PO Q4HP PRN Pain, Mild 09/25/17 02/25/22 History Relief (acetaminophen)) dabigatran etexilate 150 mg 150 mg PO BID 03/24/18 02/25/22 History capsule (Pradaxa) pravastatin 80 mg tablet 80 mg PO BEDTIME ##0 02/13/19 02/25/22 History lisinopril 2.5 mg tablet 2.5 mg PO QAM blood pressure 04/28/19 02/25/22 History gentamicin 0.3 % eye drops 1 drp EYE-BOTH TID PRN Blepharitis 03/15/20 02/25/22 Rx #5 mL insulin lispro 100 unit/mL See Rx Instructions SUBCUT 03/15/20 02/25/22 History subcutaneous solution (Humalog USEASDIRECTD U-100 Insulin) [id number] 1 cap PO QID #120 caps 03/15/20 02/25/22 Rx 24,000-76,000-120,000 unit capsule,delayed rel (Creon) promethazine 25 mg rectal 25 mg IL Q6H PRN Nausea 06/17/20 02/25/22 History suppository diphenhydramine HCl 12.5 mg/5 mL 12.5 mg (5 mL) PO Q6H PRN nausea 03/15/21 02/25/22 Rx oral elixir and vomiting #500 mL metoprolol tartrate 25 mg tablet 12.5 mg PO BID #60 tabs 03/15/21 02/25/22 Rx azelastine 2 spray intranasal BID 05/30/21 02/25/22 History hydrocodone 5 mg-acetaminophen 325 1 tab PO Q8H PRN pain #10 tabs 05/30/21 02/25/22 Rx mg tablet oxycodone 10 mg tablet 5 mg PO Q4H PRN Pain, Severe (7-10) 05/30/21 02/25/22 History duloxetine 60 mg capsule,delayed 60 mg PO QAM 11/01/21 02/25/22 History release (Cymbalta) ipratropium 20 mcg-albuterol 100 1 puff inhalation Q4H PRN wheezing 11/01/21 02/25/22 History mcg/actuation mist for inhalation (Combivent Respimat) methylphenidate HCl 20 mg tablet 20 mg PO TID #90 ea 01/31/22 02/25/22 Rx ondansetron 8 mg disintegrating 4 mg PO TID PRN nausea/vomiting 02/25/22 02/25/22 History tablet Allergies Allergy/AdvReac Type Severity Reaction Status Date / Time Iodine and Iodide Containing Allergy Severe Anaphylaxis Verified 02/25/22 13:33 Produc [IODINE AND IODIDE CONTAINING PRODUC] Sulfa (Sulfonamide Allergy Severe Anaphylaxis Verified 02/25/22 13:33 Antibiotics) [SULFA (SULFONAMIDE ANTIBIOTICS)] gabapentin AdvReac Intermediate Dizziness Verified 02/25/22 13:33 [id number] Reductase AdvReac Intermediate Verified 02/25/22 13:33 Inhibitor metformin AdvReac Mild Verified 02/25/22 13:33 Review of Systems Review of Systems Narrative: All 12 point systems reviewed with the patient and are negative except otherwise documented. Exam Vital Signs (past 8 hours): - 02/26/22 03:15 02/26/22 07:10 02/26/22 09:42 Temperature 97.8 F Pulse Rate 96 H Respiratory Rate 20 Blood Pressure Pulse Oximetry 96 94 Oxygen Delivery Method Nasal Cannula Room Air Oxygen Flow Rate 2 Fraction of Inspired Oxygen 28 02/26/22 09:57 Temperature 99 F Pulse Rate 105 H Respiratory Rate 20 Blood Pressure 135/69 Pulse Oximetry 95 Oxygen Delivery Method Oxygen Flow Rate 0 Fraction of Inspired Oxygen Fraction of Inspired Oxygen 28 SaO2/FiO2 Ratio 342 Oxygen Delivery Method Room Air Oxygen Flow Rate 0 Narrative Exam Narrative: General: Patient is a felipe gentleman appears younger than stated age, who looks generally unwell, diaphoretic, becomes hypoxic tachycardic and tachypneic with any movement or speaking more than 2 or 3 words at a time, unable to complete full sentences without shortness of breath, while on 6 L nasal cannula, in no acute distress at this time. HEENT: Normocephalic, atraumatic, extraocular muscles intact, oral pharynx is clear and mucous membranes are dry. Neck is supple and symmetric, trachea is midline, no adenopathy, no thyroid enlargement, nontender, no masses palpated. Positive bilateral JVD Chest: Breathing is labored, tachypneic, frequent wet coughing audible wheezing without nasal flaring, or retractions. Lungs: Auscultation of all lung godfrey are equally diminished, coarse, wet, au dible gurgling/fluid/congestion, poor air exchange, coughing initiated with deep breathing or speaking, diffuse expiratory wheezing without rhonchi, or rales. Cardio: Tachycardic regular rate and rhythm without murmur, rubs, or gallops, no carotid bruit, no cardiac pulsations present. Abdomen: Soft mild 2/10 tenderness, which patient notes is improved from his baseline of chronic abdominal pain, negative for organomegaly, or masses. Bowel sounds are very hypoactive present in all 4 quadrants without guarding or rebound, no CVA tenderness. Musculoskeletal: Muscle strength and tone appear equal within normal limits, no deformity, crepitus, effusions, cyanosis, clubbing or edema present. Full range of motion intact radial pulses and pedal pulses are not well palpated, consistent with prior history of PD and bilateral fem pop stenosis. Skin: Diaphoretic, cool and intact without rashes, ulcerations or petechiae. Neuro: Alert and orientated x3, moves all extremities, sensation to touch intact, no gross deficits noted of cranial nerves. Psych: Patient has a well-kept appearance, appears generally unwell, appropriate affect, mental status attitude thought context and judgment are appropriate for age. Objective Labs Result Diagrams: 02/27/22 05:31 02/26/22 08:48 Labs: Laboratory Results - last 24 hr 02/25/22 02/25/22 02/25/22 13:30 13:48 15:41 WBC 6.9 RBC 4.67 Hgb 13.6 Hct 41.8 MCV 89.4 MCH 29.2 MCHC 32.7 RDW 14.0 Plt Count 289 Neut % (Auto) 86.7 H Lymph % (Auto) 4.8 L [place] % (Auto) 7.3 Eos % (Auto) 0.0 L Baso % (Auto) 1.2 Neut # (Auto) 6000 Lymph # (Auto) 300 L [place] # (Auto) 500 Eos # (Auto) 0 Baso # (Auto) 100 Total Counted Seg Neutrophils % Band Neutrophils % Lymphocytes % (Manual) Monocytes % (Manual) Basophils % (Manual) Neutrophils # (Manual) RBC Morphology ESR PT INR APTT ABG pH ABG pCO2 ABG pO2 ABG HCO3 ABG Total CO2 ABG O2 Saturation ABG Base Excess FiO2 Sodium Potassium Chloride Carbon Dioxide BUN Creatinine Estimated GFR BUN/Creatinine Ratio Glucose Hemoglobin A1c Lactate Calcium Magnesium Total Bilirubin AST ALT Alkaline Phosphatase Total Creatine Kinase CK-MB (CK-2) CK-MB (CK-2) Rel Index Troponin I C-Reactive Protein NT-Pro-B Natriuret Pep 1520 H Total Protein Albumin Globulin Albumin/Globulin Ratio Lipase Procalcitonin TSH SARS-CoV-2 (PCR) Negative Influenza A (RT-PCR) Flu a positive H Influenza B (RT-PCR) Flu b negative RSV (PCR) Negative 02/25/22 02/25/22 02/25/22 15:41 15:41 15:41 WBC RBC Hgb Hct MCV MCH MCHC RDW Plt Count Neut % (Auto) Lymph % (Auto) [place] % (Auto) Eos % (Auto) Baso % (Auto) Neut # (Auto) Lymph # (Auto) [place] # (Auto) Eos # (Auto) Baso # (Auto) Total Counted Seg Neutrophils % Band Neutrophils % Lymphocytes % (Manual) Monocytes % (Manual) Basophils % (Manual) Neutrophils # (Manual) RBC Morphology ESR PT 17.5 H INR 1.5 H APTT 31 ABG pH ABG pCO2 ABG pO2 ABG HCO3 ABG Total CO2 ABG O2 Saturation ABG Base Excess FiO2 Sodium 136 L Potassium 2.7 L* Chloride 96 L Carbon Dioxide 22 BUN 10 Creatinine 0.49 L Estimated GFR > 60 BUN/Creatinine Ratio 20.4 Glucose 224 H Hemoglobin A1c Lactate 1.5 Calcium 8.0 L Magnesium 1.5 L Total Bilirubin 0.7 AST 43 ALT 32 Alkaline Phosphatase 116 Total Creatine Kinase 799 H CK-MB (CK-2) 3.24 H CK-MB (CK-2) Rel Index 0.4 L Troponin I 0.023 C-Reactive Protein NT-Pro-B Natriuret Pep Total Protein 6.8 Albumin 3.7 Globulin 3.1 Albumin/Globulin Ratio 1.2 Lipase 31 Procalcitonin TSH SARS-CoV-2 (PCR) Influenza A (RT-PCR) Influenza B (RT-PCR) RSV (PCR) 02/25/22 02/25/22 02/26/22 15:41 18:15 00:55 WBC RBC Hgb Hct MCV MCH MCHC RDW Plt Count Neut % (Auto) Lymph % (Auto) [place] % (Auto) Eos % (Auto) Baso % (Auto) Neut # (Auto) Lymph # (Auto) [place] # (Auto) Eos # (Auto) Baso # (Auto) Total Counted Seg Neutrophils % Band Neutrophils % Lymphocytes % (Manual) Monocytes % (Manual) Basophils % (Manual) Neutrophils # (Manual) RBC Morphology ESR PT INR APTT ABG pH ABG pCO2 ABG pO2 ABG HCO3 ABG Total CO2 ABG O2 Saturation ABG Base Excess FiO2 Sodium Potassium Chloride Carbon Dioxide BUN Creatinine Estimated GFR BUN/Creatinine Ratio Glucose Hemoglobin A1c Lactate Calcium Magnesium Total Bilirubin AST ALT Alkaline Phosphatase Total Creatine Kinase CK-MB (CK-2) CK-MB (CK-2) Rel Index Troponin I 0.026 0.028 C-Reactive Protein NT-Pro-B Natriuret Pep Total Protein Albumin Globulin Albumin/Globulin Ratio Lipase Procalcitonin 26.2 H TSH SARS-CoV-2 (PCR) Influenza A (RT-PCR) Influenza B (RT-PCR) RSV (PCR) 02/26/22 02/26/22 02/26/22 00:55 00:55 00:55 WBC 8.5 RBC 3.77 L Hgb 11.2 L Hct 33.2 L MCV 87.9 MCH 29.8 MCHC 33.9 RDW 14.1 Plt Count 293 Neut % (Auto) Not Reportable Lymph % (Auto) Not Reportable [place] % (Auto) Not Reportable Eos % (Auto) Not Reportable Baso % (Auto) Not Reportable Neut # (Auto) Lymph # (Auto) Not Reportable [place] # (Auto) Not Reportable Eos # (Auto) Baso # (Auto) Not Reportable Total Counted 100 Seg Neutrophils % 56.0 Band Neutrophils % 32.0 H Lymphocytes % (Manual) 5.0 L Monocytes % (Manual) 6.0 Basophils % (Manual) 1.0 Neutrophils # (Manual) 7480 H RBC Morphology Normal morphology ESR PT INR APTT ABG pH ABG pCO2 ABG pO2 ABG HCO3 ABG Total CO2 ABG O2 Saturation ABG Base Excess FiO2 Sodium 134 L Potassium 2.9 L Chloride 100 Carbon Dioxide 24 BUN 13 Creatinine 0.63 L Estimated GFR > 60 BUN/Creatinine Ratio 20.6 Glucose 170 H Hemoglobin A1c Lactate Calcium 7.3 L Magnesium Total Bilirubin 0.5 AST 32 ALT 28 Alkaline Phosphatase 103 Total Creatine Kinase CK-MB (CK-2) CK-MB (CK-2) Rel Index Troponin I C-Reactive Protein NT-Pro-B Natriuret Pep 932 H Total Protein 5.6 L Albumin 3.0 L Globulin 2.6 Albumin/Globulin Ratio 1.2 Lipase Procalcitonin TSH SARS-CoV-2 (PCR) Influenza A (RT-PCR) Influenza B (RT-PCR) RSV (PCR) 02/26/22 02/26/22 02/26/22 00:55 00:55 00:55 WBC RBC Hgb Hct MCV MCH MCHC RDW Plt Count Neut % (Auto) Lymph % (Auto) [place] % (Auto) Eos % (Auto) Baso % (Auto) Neut # (Auto) Lymph # (Auto) [place] # (Auto) Eos # (Auto) Baso # (Auto) Total Counted Seg Neutrophils % Band Neutrophils % Lymphocytes % (Manual) Monocytes % (Manual) Basophils % (Manual) Neutrophils # (Manual) RBC Morphology ESR 61 H PT INR APTT ABG pH ABG pCO2 ABG pO2 ABG HCO3 ABG Total CO2 ABG O2 Saturation ABG Base Excess FiO2 Sodium Potassium Chloride Carbon Dioxide BUN Creatinine Estimated GFR BUN/Creatinine Ratio Glucose Hemoglobin A1c Lactate Calcium Magnesium 1.9 Total Bilirubin AST ALT Alkaline Phosphatase Total Creatine Kinase CK-MB (CK-2) CK-MB (CK-2) Rel Index Troponin I C-Reactive Protein 34.3 H NT-Pro-B Natriuret Pep Total Protein Albumin Globulin Albumin/Globulin Ratio Lipase Procalcitonin TSH SARS-CoV-2 (PCR) Influenza A (RT-PCR) Influenza B (RT-PCR) RSV (PCR) 02/26/22 02/26/22 02/26/22 00:55 00:55 02:10 WBC RBC Hgb Hct MCV MCH MCHC RDW Plt Count Neut % (Auto) Lymph % (Auto) [place] % (Auto) Eos % (Auto) Baso % (Auto) Neut # (Auto) Lymph # (Auto) [place] # (Auto) Eos # (Auto) Baso # (Auto) Total Counted Seg Neutrophils % Band Neutrophils % Lymphocytes % (Manual) Monocytes % (Manual) Basophils % (Manual) Neutrophils # (Manual) RBC Morphology ESR PT INR APTT ABG pH ABG pCO2 ABG pO2 ABG HCO3 ABG Total CO2 ABG O2 Saturation ABG Base Excess FiO2 Sodium Potassium Chloride Carbon Dioxide BUN Creatinine Estimated GFR BUN/Creatinine Ratio Glucose Hemoglobin A1c 8.0 H Lactate 1.0 Calcium Magnesium Total Bilirubin AST ALT Alkaline Phosphatase Total Creatine Kinase CK-MB (CK-2) CK-MB (CK-2) Rel Index Troponin I C-Reactive Protein NT-Pro-B Natriuret Pep Total Protein Albumin Globulin Albumin/Globulin Ratio Lipase Procalcitonin 28.7 H TSH SARS-CoV-2 (PCR) Influenza A (RT-PCR) Influenza B (RT-PCR) RSV (PCR) 02/26/22 02/26/22 02/26/22 05:35 05:35 09:49 WBC RBC Hgb Hct MCV MCH MCHC RDW Plt Count Neut % (Auto) Lymph % (Auto) [place] % (Auto) Eos % (Auto) Baso % (Auto) Neut # (Auto) Lymph # (Auto) [place] # (Auto) Eos # (Auto) Baso # (Auto) Total Counted Seg Neutrophils % Band Neutrophils % Lymphocytes % (Manual) Monocytes % (Manual) Basophils % (Manual) Neutrophils # (Manual) RBC Morphology ESR PT INR APTT ABG pH 7.45 ABG pCO2 33.5 L ABG pO2 66 L ABG HCO3 23 ABG Total CO2 24 ABG O2 Saturation 94 L ABG Base Excess -1.0 FiO2 21 Sodium Potassium Chloride Carbon Dioxide BUN Creatinine Estimated GFR BUN/Creatinine Ratio Glucose Hemoglobin A1c Lactate Calcium Magnesium Total Bilirubin AST ALT Alkaline Phosphatase Total Creatine Kinase CK-MB (CK-2) CK-MB (CK-2) Rel Index Troponin I 0.023 C-Reactive Protein NT-Pro-B Natriuret Pep Total Protein Albumin Globulin Albumin/Globulin Ratio Lipase Procalcitonin TSH 0.435 L SARS-CoV-2 (PCR) Influenza A (RT-PCR) Influenza B (RT-PCR) RSV (PCR) Assessment & Plan Assessment & Plan narrative: Jann Thomsonis a 66-year-old male with history of paroxysmal AFib on Pradaxa and Eliquis, chronic pancreatic insufficiency (typically controlled at home with pancreatic enzymes, oxycodone, Zofran and Phenergan), hypertension, PAD with HX (2005) of right lower extremity angioplasty with stent placement/removal & left angioplasty insulin-dependent diabetes, narcolepsy with cataplexy, hyperlipidemia, history(06/14) cholecystectomy presented today feeling generally unwell he states he is noted his heart rate has been fast on and off for the entire week, and vomiting. Patient admitted for AFib with RVR, acute respiratory failure with hypoxia, secondary to influenza a, pneumonia, NSTEMI/myocardial injury, DKA, new onset heart failure. 1. atrial fibrillation with RVR, acute on chronic, recurrent cardioversion, on chronic anticoagulation Plavix and Pradaxa, present on admission-resolved -patient was successfully cardioverted in ED repeat EKG demonstrated sinus rhythm with ST depression I personally reviewed appears unchanged from previous EKG in chart -Patient notes he is had multiple cardioversions in the past without issue, at least 2 this year alone -continue Plavix and Pradaxa, metoprolol -patient monitored on telemedicine -hypokalemia-patient given 40 mEq in ED-trend electrolytes -hypomagnesia patient given 2 g in ED -echo ordered 2. acute respiratory failure with hypoxia secondary influenza a, pneumonia, acute, present on admission -O2 saturations in the 80s with any movement or exertion on room air, tachypneic and tachycardic on admit -patient required 6 L O2 on nasal cannula for O2 saturation 95%. -COVID negative, RSV negative, procalcitonin was 26.2 -positive influenza A-Tamiflu 60 mg b.i.d. ordered as we do not have 75 mg available. Hospitalized patient's are recommended to receive treatment even if symptoms are be on 48 hour window. -pneumonia CPAP vs aspiration-patient did report that he frequently aspirates gastric content secondary to his chronic pending creating insufficiency -chest x-ray demonstrated patchy right mid lung airspace disease possible pneumonia -AP CT noted bilateral lower lobe pneumonia right greater than left with small parapneumonic pleural effusion-suggestive possible community-acquired pneumonia versus aspiration pneumonia. -respiratory consult, Kevin, incentive spirometry holding oral steroids due to possible AFib with RVR exacerbation -blood cultures, sputum cultures pending, repeat labs, also order inflammatory markers CRP sed rate, procalcitonin, lactate -empiric antibiotic therapy for community-acquired pneumonia/aspiration pneumonia-azithromycin [id number] based on culture results. 3. NSTEMI/myocardial injury, acute, present on admission -CK-2:3.24 CK-to RI 0.4 troponins 0.023, 0.026, 0.028- trend -continue Plavix and Pradaxa 4. mild DKA, secondary to insulin-dependent diabetes, acute on chronic, hyperlipidemia present on admission-resolved - sodium 36, potassium 2.7, chloride 96, creatinine 0.49 glucose 221- gap 18 -patient's gap was closed with subcutaneous insulin and IV fluid bolus treatment in the ED department -continue patient's insulins, pravastatin, lisinopril -patient admitted under diabetic protocol -A1c ordered -recommend patient education and handouts on sick day management of diabetes. 5. new onset heart failure, acute, present on admission -BNP was 1520 -? Patient is allergic to sulfa/ iodine (anaphylaxis) he states for CT scans they usually use pretreatment with Benadryl Solu-Medrol, allergic to sulfa and can not take Lasix secondary to it tail of sulfa. -Bumex 0.5 given for mild diuresis -no peripheral edema - cardiac catheterization but it has been some time, he states he is never had any cardiac stents, HF, ablation, CABG or other cardiac interventions.? - last echo 03/09/[address] Ames wall EF 45-50%, -when discussing possible stress test patient's stated ?I will not do the nuclear med stress test I will however do the exercise treadmill test where I will drop ?. Patient was advised that we would not be doing exercise stress test. -echo ordered 6. Hypertension, essential, chronic, present on admission -continue metoprolol 7. acute on chronic pancreatic insufficiency exacerbation, present on admission -continue Creon pancreatic enzymes prior to meals 8. Depression, chronic, present on admission -continue Cymbalta 9. Narcolepsy with cataplexy, chronic, present on admission -holding Ritalin Code status:Full Surrogate decision maker: November Little COVID PCR:Negatived COVID vaccination: Fully Vax DVT/VTE prophylaxis: Pradaxa/Plavix, SCDs only Disposition: Patient admitted to acute care expected length of stay greater than 2 midnights I have utilized all available immediate resources to obtain, update, or review the patient's current medications. I confirmed that the patient's advanced care plan is present, Code status is documented and/or surrogate decision maker is listed in the patient's medical record. I have personally reviewed patient's chart notes from PCP, specialists, diagnostic imaging, and laboratory, Time Spent With Patient Critical Care time: I spent a total of [] minutes of critical care time on this patient's care today; this time is exclusive of procedural time.
[2022-02-26] MEDS: metroNIDAZOLE 500 MG TABLET PO ×3 (12:08→20:39)
[2022-02-26] MEDS: CODEINE/GUAIFENESIN LIQUID 5ML UDC 5 ML PO ×2 (12:31→17:47)
[2022-02-26 13:17] LABS: Add Manual Diff / Slide Review NO; Basophils Absolute Auto 0 /uL (0-100); Basophils Percent Auto 0.3 % (0-2); Eosinophils Absolute Auto 0 /uL (0-450); Eosinophils Percent Auto 0.1 % (2-4); Hemoglobin 11.9 g/dL (13.5-17.5); Lymphocytes Absolute Auto 500 /uL (1100-4500); Lymphocytes Percent Auto 5.7 % (25-40); Mean Corpuscular HGB Conc 32.9 % (30-36); Mean Corpuscular Hemoglobin 29.4 PG (26-34); Mean Corpuscular Volume 89.4 fL (80-100); Monocytes Absolute Auto 900 /uL (0-900); Monocytes Percent Auto 9.4 % (3-14); Neutrophils Absolute Auto 7700 /uL (1500-7000); Neutrophils Percent Auto 84.5 % (50-75); Platelet Count 286 X10^3/uL (150-400); Red Blood Cell Count 4.03 X10^6/uL (4.5-5.9); Red Cell Distribution Width 14.2 % (11.6-14.8); White Blood Cell Count 9.2 X10^3/uL (4.5-11.0)
[2022-02-26 13:18] LABS: INR 1.4 (0.9-1.3)
[2022-02-26 13:22] LABS: Alanine Aminotransferase 30 IU/L (<50); Albumin 3.4 g/dL (3.5-5.0); Albumin Globulin Ratio 1.1 (1.0-2.8); Alkaline Phosphatase 102 U/L (38-126); Aspartate Aminotransferase 43 IU/L (17-59); Bilirubin Total 0.7 mg/dL (0.2-1.3); Blood Urea Nitrogen 13 mg/dL (9-20); Carbon Dioxide 24 mmol/L (22-32); Chloride 97 mmol/L (98-107); Estimated Glomerular Filt Rate > 60 mL/min (>60); Globulin 3.1 g/dL (1.7-4.1); Glucose 154 mg/dL (80-110); HEMOLYSIS 50 (0-50); Potassium 3.1 mmol/L (3.4-5.1); Sodium 133 mmol/L (137-145); Total Protein 6.5 g/dL (6.3-8.2)
--- NOTE | 2022-02-26 16:27 | CM.DANOTE ---
DCP Brief Assessment: Patient is a 67 yr old male who was admitted for the Flu and needing oxygenation. Patient met for INPT status. CM attempted to call patients room however patient did not answer. 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 According to ICU nurse does not feel patient will need resources at DC however CM will need to do more indepth DC plan assessment to make sure there are no needs. I: [place] [employer] Plan: Home with family no needs, CM department to follow up for more indepth DC assessment Margarita Mojica RNswitchboard operator receptionist Discharge Planning/Care Management Discharge Assessment Start: 02/26/22 16:06 Freq: Status: Active Protocol: Document 02/26/22 16:06 HS (Rec: 02/26/22 16:27 HS [id number]) Discharge Planning Assessment Assigned Clinical Laboratory Service Teacher Margarita Mojica RNswitchboard operator receptionist Advance Directives? Yes Advance Directives on File Yes History Provided By Medical Record Prior Living Arrangements House Household Members significant other Type of transporation used prior to Drives own vehicle admit Independent with ADL's Yes Is patient alert and oriented? Yes Caregiver for Another No Comment has cane, does not currently use. Barriers to Discharge No Discharge Plan Home Transportation Arrangement Supportive local friends who can provide transport Referrals Initiated None needed Whiteboard Updated in Patient Room with Yes name and ext. # of Clinical Laboratory Service Teacher Review Status In Process Next Review Type Continued Stay Review
[2022-02-26] MEDS: ONDANSETRON 4 MG/2 ML INJ IV (17:47)
[2022-02-26 18:35] LABS: Troponin I 0.015 ng/mL (0.01-0.034)
[2022-02-26] MEDS: PRAVASTATIN 20 MG TABLET 80 MG PO (20:39)
[2022-02-26] MEDS: TRAZODONE 50 MG TABLET PO (20:39)
[2022-02-26] MEDS: OSELTAMIVIR 30 MG CAPSULE 60 MG PO (20:40)
[2022-02-27] VITALS (64 sets, daily range): BP systolic 96–143; BP diastolic 55–96; PULSE 71–174; RESP 18–45; TEMP 35.8–37.6; O2SAT 87–98
[2022-02-27 00:18] LABS: Troponin I 0.015 ng/mL (0.01-0.034)
[2022-02-27] MEDS: LORazepam 0.5 MG TABLET PO ×3 (01:07→23:32)
[2022-02-27 06:38] LABS: Add Manual Diff / Slide Review NO; Basophils Absolute Auto 0 /uL (0-100); Basophils Percent Auto 0.3 % (0-2); Eosinophils Absolute Auto 0 /uL (0-450); Hematocrit 33.7 % (41-53); Hemoglobin 11.4 g/dL (13.5-17.5); Lymphocytes Absolute Auto 600 /uL (1100-4500); Lymphocytes Percent Auto 5.8 % (25-40); Mean Corpuscular HGB Conc 33.8 % (30-36); Mean Corpuscular Hemoglobin 29.6 PG (26-34); Mean Corpuscular Volume 87.7 fL (80-100); Monocytes Absolute Auto 900 /uL (0-900); Monocytes Percent Auto 8.1 % (3-14); Neutrophils Absolute Auto 9400 /uL (1500-7000); Neutrophils Percent Auto 85.8 % (50-75); Platelet Count 389 X10^3/uL (150-400); Red Blood Cell Count 3.84 X10^6/uL (4.5-5.9); Red Cell Distribution Width 14.4 % (11.6-14.8)
[2022-02-27] MEDS: ALBUTEROL/IPRATROPIUM 3 ML AMPUL INH ×4 (08:17→19:58)
[2022-02-27] MEDS: CODEINE/GUAIFENESIN LIQUID 5ML UDC 5 ML PO ×2 (08:27→15:15)
[2022-02-27] MEDS: dilTIAZem 5 MG/ML SDV 10 MG IV (08:32)
[2022-02-27] MEDS: DILTIAZEM 125 MG/125 ML PIGGYBACK IV (08:33)
[2022-02-27] MEDS: METOPROLOL IR 25 MG TABLET 12.5 MG PO (08:46)
[2022-02-27] MEDS: cefTRIAXone 1,000 MG in SODIUM CHLORIDE 0.9% 100 ML 200 MG IV (09:41)
[2022-02-27] MEDS: ACETAMINOPHEN 325 MG TABLET 650 MG PO ×2 (09:42→15:14)
[2022-02-27] MEDS: AZITHROMYCIN 250 MG TABLET 500 MG PO (09:42)
[2022-02-27] MEDS: DULOXETINE 30 MG CAPSULE 60 MG PO (09:43)
[2022-02-27] MEDS: OSELTAMIVIR 30 MG CAPSULE 60 MG PO (09:43)
[2022-02-27] MEDS: CLOPIDOGREL 75 MG TABLET PO (09:44)
[2022-02-27] MEDS: DABIGATRAN 75 MG CAPSULE 150 MG PO ×2 (09:44→21:34)
[2022-02-27] MEDS: metroNIDAZOLE 500 MG TABLET PO ×3 (09:45→21:44)
[2022-02-27] MEDS: PROTEASE PO ×3 (09:47→17:31)
[2022-02-27] MEDS: LIPASE PO ×3 (09:47→17:31)
[2022-02-27] MEDS: AMYLASE PO ×3 (09:47→17:31)
[2022-02-27] MEDS: INSULIN LISPRO 100 UNIT/ML 3ML VIAL SUBCUT ×4 (10:03→22:10)
[2022-02-27] MEDS: AMIODARONE 150 MG/100 ML PIGGYBACK 600 MG IV ×2 (10:53→16:53)
[2022-02-27 11:13] LABS: Procalcitonin 24.3 ng/mL (<0.5)
[2022-02-27] MEDS: AMIODARONE 360 MG/200 ML PIGGYBACK 33.333 MG IV (11:20)
--- NOTE | 2022-02-27 11:41 | DIET.CONS ---
Dietary Consultation Note Admission Date: 02/25/2022 19:14 Assessment: 67y M admitted for SOB found to have Influenza A in afib referred to nutrition for diet pt can tolerate secondary to Chronic Pancreatic Insufficiency. Pt unable to keep most POs down x7d. Pt given BRAT diet over weekend which pt consuming ~50%. Pt tolerates soymilk and pea protein. Pt desires protein smoothies in addition to meal tray to support nutrition status. Ht: 177.8 cm Wt: 79 kg BMI: 25.0 Last BM: 02/27/22 (02/27/22 10:31) MNA: Todd Score: 19 Diet: 02/26/22 Breakfast Heart Healthy Diet Diet Modifications: Please [id number] [id number] Sodium Level: 2 gm Sodium Nutrition Percent Meal Consumed 75% 02/26/22 18:27 Percent Meal Consumed 25% 02/26/22 14:40 Labs: RBC 3.84 X10^6/uL (4.5-5.9) L 02/27/22 05:31 Hgb 11.4 g/dL (13.5-17.5) L 02/27/22 05:31 Hct 33.7 % (41-53) L 02/27/22 05:31 Creatinine 0.52 mg/dL (0.66-1.25) L 02/26/22 08:48 Hemoglobin A1c 8.0 % (4.0-6.0) H 02/26/22 00:55 Lactate 1.0 mmol/L (0.7-2.1) 02/26/22 02:10 NT-Pro-B Natriuret Pep 932 pg/mL (<125) H 02/26/22 00:55 Nutrition Diagnosis: inadequate PO intake r/t difficulty tolerating PO intake aeb pt with poor POs x7d, pt with N/V/D/C, pt with restrictive diet unable to tolerate most animal proteins at baseline. Interventions: 1. Sending two cups unsweetened soymilk with pea protein blended in on each meal tray to support nutrition status. 2. Sending up carton of soymilk to nourishment fridge with pt sticker attached for NOC shift. EER: 79g PRO (1g/kg), 1900kcals (25kcal/kg) Electronically Signed by: Jennifer Hercules 02/27/22 11:41 Clinical Dietitian [address] [address]
[2022-02-27 11:54] LABS: Alanine Aminotransferase 26 IU/L (<50); Albumin 3.1 g/dL (3.5-5.0); Albumin Globulin Ratio 1.1 (1.0-2.8); Alkaline Phosphatase 139 U/L (38-126); Aspartate Aminotransferase 30 IU/L (17-59); BUN Creatinine Ratio 15.1 (6-22); Bilirubin Total 0.6 mg/dL (0.2-1.3); Blood Urea Nitrogen 8 mg/dL (9-20); Calcium 8.1 mg/dL (8.4-10.2); Carbon Dioxide 25 mmol/L (22-32); Chloride 99 mmol/L (98-107); Estimated Glomerular Filt Rate > 60 mL/min (>60); Globulin 2.8 g/dL (1.7-4.1); Glucose 169 mg/dL (80-110); HEMOLYSIS < 15 (0-50); Magnesium 1.8 mg/dL (1.6-2.3); Sodium 133 mmol/L (137-145); Total Protein 5.9 g/dL (6.3-8.2)
[2022-02-27 11:55] LABS: Potassium 3.4 mmol/L (3.4-5.1)
[2022-02-27] MEDS: DIGOXIN 500 MCG/2 ML AMPUL IV (13:16)
[2022-02-27] MEDS: SODIUM CHLORIDE 0.9% 500 ML IV (13:18)
--- NOTE | 2022-02-27 14:29 | DI.ECHO.S_ITS ---
Interpretation Summary 1) Normal left ventricular thickness and size with low normal systolic function (EF about 50%). 2) There are no focal wall motion abnormalities. 3) Normal right ventricular size and function. 4) No significant valvular abnormalities. 5) Compared to the Echo done 03/09/2021, no wall motion abnormalities are present on this study. Procedure: A two-dimensional transthoracic echocardiogram with color flow and Doppler was performed. The study quality was technically good. Comparison is made with the echocardiogram of 03/09/21. The patient was in normal sinus rhythm during the exam. Left Ventricle: The left ventricle is normal in size. There is normal left ventricular wall thickness. Left ventricular ejection fraction is estimated to be 50 +/- 5%. There are no focal wall motion abnormalities. Diastolic parameters suggest a pseudonormalization pattern, consistent with probable elevated filling pressures. Right Ventricle: The right ventricle is normal in size and function. Atria: The left atrium is moderately dilated. Right atrial size is normal. There is no Doppler evidence for an atrial septal defect. Mitral Valve: There is mild mitral annular calcification. There is trace mitral regurgitation. Aortic Valve: The aortic valve is trileaflet. The aortic valve opens well. There is no aortic valve stenosis. No aortic regurgitation is present. Tricuspid Valve: The tricuspid valve is normal in structure and function. There is mild tricuspid regurgitation. The right ventricular systolic pressure is estimated to be at least 39 mmHg based on an estimated right atrial pressure of 3 mm Hg. Pulmonic Valve: The pulmonic valve is not well seen, but is grossly normal. There is trace pulmonic regurgitation. Great Vessels: The aortic root is normal size. The dimensions of the ascending aorta are normal. The pulmonary artery is normal size. The IVC is of normal diameter and collapses greater than 50% with a sniff. This suggests a low right atrial pressure of 3 mm Hg. Pericardium/ Pleura There is no pericardial effusion. There is no pleural effusion. MMode/2D Measurements & Calculations LVIDd: 5.0 cm LVOT diam: 2.2 cm LVIDs: 3.5 cm Ao root diam: 3.4 cm FS: 29.5 % asc Aorta Diam: 3.2 cm EPSS: 0.35 cm IVSd: 0.87 cm LVPWd: 0.88 cm LV melendez. diameter/BSA (cm/m^2): 2.6 LV sys. diameter/BSA (cm/m^2): 1.8 LA A2 area: 26.0 cm2 RA long axis: 5.1 cm LA A4 area: 18.8 cm2 RA area: 17.9 cm2 LA length (vol): 5.1 cm RA vol: 53.6 ml LA vol: 81.3 ml RA : 27.9 ml/m2 LA vol index: 42.3 ml/m2 IVC diam: 2.1 cm TAPSE: 2.1 cm Doppler Measurements & Calculations Ao V2 max: 125.2 cm/sec LVOT Max Sharif: 98.2 cm/sec Ao V2 mean: 95.1 cm/sec LV V1 max P.9 mmHg Ao max P.3 mmHg LV V1 VTI: 17.0 cm Ao mean P.8 mmHg BHARAT(I,D): 2.7 cm2 Ao V2 VTI: 24.7 cm BHARAT(V,D): 3.1 cm2 sev ratio: 0.69 BHARAT indexed to BSA (cm^2/m^2): 1.4 MV E max sharif: 108.4 cm/sec TR max sharif: 300.2 cm/sec MV A max sharif: 81.9 cm/sec TR max P.0 mmHg MV E/A: 1.3 PA V2 max: 85.6 cm/sec Med Peak E' Sharif: 7.6 cm/sec PA V2 mean: 61.2 cm/sec E/E' med: 14.3 PA mean P.7 mmHg Lat Peak E' Sharif: 8.2 cm/sec PA pr(Accel): 37.9 mmHg E/E' lat: 13.3 E/e' average: 13.8 MV dec time: 0.15 sec SV(LVOT): 67.0 ml Reading Physician:03:33 PM
[2022-02-27] MEDS: OXYCODONE IR 5 MG TABLET PO ×3 (14:54→23:32)
[2022-02-27] MEDS: PANTOPRAZOLE DR 40 MG TABLET PO (14:54)
--- NOTE | 2022-02-27 16:32 | PM.CN.EICU ---
History of Present Illness Consult details IF CAMERA ACTIVATED, patient seen via real-time interactive audiovisual communication: Camera activated Date Patient Seen: 02/27/22 Chief complaint: SOB,CHEST PAIN,FEVER Consent obtained for tele-personnel monitor care: Yes Patient Location: ICU Provider location (State): [place] Other participants/roles: RN Narrative: Patient is a 67M with a PMH of Chronic pancreatitis, DM, PAD and AFib/Flutter on Pradaxa who is in the ICU due to persistent AFib/Aflutter with RVR up to the 150s-170s. Patient presented to the ER yesterday with palpitations and was cardioverted but only with a brief conversion, now back to the 150s. Later was given Dilt with resultant hypotension. Loaded with Amio 150 this morning and started on an Amio drip but has been persistently in the 150s. Found to have Influenza A and is on NC at 2L to maintain sats in the low 90s with a notable cough. Has had some diarrhea today, which is a chronic problem for patient. Reports chronic pain which he attributes to his pancreatitis. CT AP on admission noted constipation and bilateral lower lobe pneumonia. [facility] Medical History Acute dehydration Atrial flutter with rapid ventricular response Campylobacter enteritis Claudication in peripheral vascular disease Enteritis, enteropathogenic E. coli Exocrine pancreatic insufficiency Gastroenteritis GERD (gastroesophageal reflux disease) History of cardioversion (03/07/21) HTN (hypertension) Hyperlipidemia Insulin dependent diabetes mellitus with complications Narcolepsy Nausea vomiting and diarrhea Pancreatic endocrine tumor Pancreatitis Paroxysmal atrial fibrillation Peripheral vascular disease Psoriasis Sepsis Surgical History H/O exploratory laparotomy History of epididymectomy History of femoropopliteal bypass Hx of biopsy Family History Father Colon cancer Mother Narcolepsy Grandmother Narcolepsy Social History household members: significant other Smoking Status: Former smoker alcohol intake: former Current Medications Current Medications Medications: Home Medications clopidogrel 75 mg tablet (Plavix) 75 mg PO QAM ##0 04/15/08 [History Confirmed 02/25/22] acetaminophen 325 mg tablet (Pain Relief (acetaminophen)) 500 mg PO Q4HP PRN Pain, Mild 09/25/17 [History Confirmed 02/25/22] dabigatran etexilate 150 mg capsule (Pradaxa) 150 mg PO BID 03/24/18 [History Confirmed 02/25/22] pravastatin 80 mg tablet 80 mg PO BEDTIME ##0 02/13/19 [History Confirmed 02/25/22] lisinopril 2.5 mg tablet 2.5 mg PO QAM blood pressure 04/28/19 [History Confirmed 02/25/22] gentamicin 0.3 % eye drops 1 drp EYE-BOTH TID PRN Blepharitis #5 mL 03/15/20 [Rx Confirmed 02/25/22] insulin lispro 100 unit/mL subcutaneous solution (Humalog U-100 Insulin) See Rx Instructions SUBCUT USEASDIRECTD 03/15/20 [History Confirmed 02/25/22] [id number] 24,000-76,000-120,000 unit capsule,delayed rel (Creon) 1 cap PO QID #120 caps 03/15/20 [Rx Confirmed 02/25/22] promethazine 25 mg rectal suppository 25 mg ND Q6H PRN Nausea 06/17/20 [History Confirmed 02/25/22] diphenhydramine HCl 12.5 mg/5 mL oral elixir 12.5 mg (5 mL) PO Q6H PRN nausea and vomiting #500 mL 03/15/21 [Rx Confirmed 02/25/22] metoprolol tartrate 25 mg tablet 12.5 mg PO BID #60 tabs 03/15/21 [Rx Confirmed 02/25/22] azelastine 2 spray intranasal BID 05/30/21 [History Confirmed 02/25/22] hydrocodone 5 mg-acetaminophen 325 mg tablet 1 tab PO Q8H PRN pain #10 tabs 05/30/21 [Rx Confirmed 02/25/22] oxycodone 10 mg tablet 5 mg PO Q4H PRN Pain, Severe (7-10) 05/30/21 [History Confirmed 02/25/22] duloxetine 60 mg capsule,delayed release (Cymbalta) 60 mg PO QAM 11/01/21 [History Confirmed 02/25/22] ipratropium 20 mcg-albuterol 100 mcg/actuation mist for inhalation (Combivent Respimat) 1 puff inhalation Q4H PRN wheezing 11/01/21 [History Confirmed 02/25/22] methylphenidate HCl 20 mg tablet 20 mg PO TID #90 ea 01/31/22 [Rx Confirmed 02/25/22] ondansetron 8 mg disintegrating tablet 4 mg PO TID PRN nausea/vomiting 02/25/22 [History Confirmed 02/25/22] Visit Medications (administered) Generic Name Dose Route Start Last Admin Trade Name Freq PRN Reason Stop Dose Admin Acetaminophen 650 mg 02/26/22 02:05 02/27/22 15:14 Acetaminophen 325 Mg Tablet PO 650 mg Q6H PRN Administration Fever/Mild Pain (1-3) Albuterol/Ipratropium 3 ml 02/26/22 07:00 02/27/22 15:25 Albuterol/Ipratropium 3 Ml Ampul INH 3 ml [id number] KATHY Administration Clopidogrel Bisulfate 75 mg 02/26/22 09:00 02/27/22 09:44 Clopidogrel 75 Mg Tablet PO 75 mg DAILY KATHY Administration Dabigatran 150 mg 02/26/22 09:00 02/27/22 09:44 Dabigatran 75 Mg Capsule PO 150 mg BID KATHY Administration Duloxetine HCl 60 mg 02/26/22 09:00 02/27/22 09:43 Duloxetine 30 Mg Capsule PO 60 mg DAILY KATHY Administration Guaifenesin/Codeine Phosphate 5 ml 02/26/22 09:44 02/27/22 15:15 Codeine/Guaifenesin Liquid 5ml Udc PO 5 ml Q6H PRN Administration Cough Sodium Chloride 1,000 mls @ 40 mls/hr 02/26/22 04:00 02/26/22 09:01 Normal Saline 0.9% IV 0 mls/hr CONT KATHY Infusion DILTIAZEM 125 mg in 125 mls @ 5 mls/hr 02/27/22 08:30 02/27/22 10:53 Diltiazem 125 Mg/125 Ml-D5w IV 0 mg/hr TITRATE KATHY 0 mls/hr Titration Protocol 5 MG/HR Insulin Human Lispro 0 unit 02/26/22 07:45 02/27/22 12:58 Insulin Lispro 100 Unit/Ml 3ml Vial SUBCUT 4 unit ACHS KATHY Administration Protocol Lisinopril 2.5 mg 02/26/22 09:00 02/27/22 09:45 Lisinopril 5 Mg Tablet PO Not Given DAILY [facility] Lorazepam 0.5 mg 02/26/22 02:05 02/27/22 08:46 Lorazepam 0.5 Mg Tablet PO 0.5 mg Q6HR PRN Administration Insomnia/aggitation/restlessne Metoprolol Tartrate 12.5 mg 02/26/22 09:00 02/27/22 08:46 Metoprolol Ir 25 Mg Tablet PO 12.5 mg BID KATHY Administration Metronidazole 500 mg 02/26/22 12:00 02/27/22 15:15 Metronidazole 500 Mg Tablet PO 500 mg TID [facility] Administration Nf - Lipase/Protease 1 cap 02/26/22 06:00 02/27/22 13:19 /Amylase (Creon) 24, PO 1 cap 000/76,000/120,000 QID [facility] Administration Unit Caps Ondansetron HCl 4 mg 02/26/22 11:21 02/26/22 17:47 Ondansetron 4 Mg/2 Ml Inj IV 4 mg Q6HR PRN Administration Nausea And Vomiting Oseltamivir Phosphate 60 mg 02/26/22 21:00 02/27/22 09:43 Oseltamivir 30 Mg Capsule PO 60 mg BID KATHY Administration Oxycodone HCl 5 mg 02/27/22 14:36 02/27/22 14:54 Oxycodone Ir 5 Mg Tablet PO 5 mg Q4HR PRN Administration Pain, Moderate (4-6) Pantoprazole Sodium 40 mg 02/27/22 14:40 02/27/22 14:[address] 40 Mg Tablet PO 40 mg 0700 [facility] Administration Pravastatin Sodium 80 mg 02/26/22 21:00 02/26/22 20:39 Pravastatin 20 Mg Tablet PO 80 mg BEDTIME [facility] Administration Trazodone HCl 50 mg 02/26/22 21:00 02/26/22 20:39 Trazodone 50 Mg Tablet PO 50 mg BEDTIME KATHY Administration Exam Vital Signs (past 8 hours): - 02/27/22 11:37 02/27/22 13:16 02/27/22 08:38 Temperature Pulse Rate 155 H 152 H 166 H Respiratory Rate 20 21 Blood Pressure Pulse Oximetry 95 93 Oxygen Delivery Method Room Air 02/27/22 08:38 02/27/22 08:45 02/27/22 08:45 Temperature Pulse Rate 153 H Respiratory Rate 26 H Blood Pressure 115/58 L 112/65 Pulse Oximetry 93 Oxygen Delivery Method 02/27/22 09:00 02/27/22 09:00 02/27/22 09:15 Temperature Pulse Rate 159 H Respiratory Rate 23 Blood Pressure 122/64 107/59 L Pulse Oximetry 93 Oxygen Delivery Method 02/27/22 09:15 02/27/22 09:30 02/27/22 09:30 Temperature Pulse Rate 160 H 159 H Respiratory Rate 37 H 30 H Blood Pressure 119/55 L Pulse Oximetry 92 89 L Oxygen Delivery Method 02/27/22 09:45 02/27/22 09:45 02/27/22 10:00 Temperature Pulse Rate 159 H Respiratory Rate 22 Blood Pressure 117/61 102/62 Pulse Oximetry 94 Oxygen Delivery Method 02/27/22 10:00 02/27/22 10:15 02/27/22 10:15 Temperature Pulse Rate 156 H 155 H Respiratory Rate 24 35 H Blood Pressure 100/58 L Pulse Oximetry 97 94 Oxygen Delivery Method 02/27/22 10:30 02/27/22 10:30 02/27/22 10:45 Temperature Pulse Rate 155 H Respiratory Rate 44 H Blood Pressure 101/59 L 98/60 Pulse Oximetry 95 Oxygen Delivery Method 02/27/22 10:45 02/27/22 11:00 02/27/22 11:00 Temperature Pulse Rate 156 H 155 H Respiratory Rate 40 H 32 H Blood Pressure 103/58 L Pulse Oximetry 93 95 Oxygen Delivery Method 02/27/22 11:03 02/27/22 11:03 02/27/22 11:15 Temperature Pulse Rate 155 H Respiratory Rate 40 H Blood Pressure 104/61 99/60 Pulse Oximetry 96 Oxygen Delivery Method 02/27/22 11:15 02/27/22 11:30 02/27/22 11:30 Temperature Pulse Rate 150 H 150 H Respiratory Rate 26 H 28 H Blood Pressure 106/62 Pulse Oximetry 96 96 Oxygen Delivery Method 02/27/22 11:45 02/27/22 11:45 02/27/22 12:00 Temperature Pulse Rate 151 H Respiratory Rate 27 H Blood Pressure 108/65 97/65 Pulse Oximetry 94 Oxygen Delivery Method 02/27/22 12:00 02/27/22 12:15 02/27/22 12:15 Temperature Pulse Rate 152 H 153 H Respiratory Rate 40 H 31 H Blood Pressure 108/62 Pulse Oximetry 95 91 Oxygen Delivery Method 02/27/22 12:30 02/27/22 12:30 02/27/22 12:45 Temperature Pulse Rate 153 H Respiratory Rate 33 H Blood Pressure 100/57 L 104/66 Pulse Oximetry 92 Oxygen Delivery Method 02/27/22 12:45 02/27/22 13:00 02/27/22 13:15 Temperature Pulse Rate 153 H 153 H 152 H Respiratory Rate 26 H 41 H 44 H Blood Pressure Pulse Oximetry 96 Oxygen Delivery Method 02/27/22 13:26 02/27/22 13:26 02/27/22 13:30 Temperature Pulse Rate 153 H Respiratory Rate 35 H Blood Pressure 100/66 113/96 H Pulse Oximetry 95 Oxygen Delivery Method 02/27/22 13:30 02/27/22 14:52 02/27/22 15:26 Temperature 98.7 F Pulse Rate 151 H 130 H Respiratory Rate 28 H 18 Blood Pressure Pulse Oximetry 93 96 Oxygen Delivery Method Nasal Cannula Fraction of Inspired Oxygen 21 SaO2/FiO2 Ratio 471 Oxygen Delivery Method Nasal Cannula Oxygen Flow Rate 0 Narrative Exam Narrative: On my tele eval of patient he is awake/alert and conversant. Slight increased WOB, satting in low 90s on 2L NC. HR in the 150s. BP is WNL. Amio drip ongoing. Objective ECG Impression: No EKG in system to review. Per discussion with bedside team, NO STEMI. Labs Result Diagrams: 02/27/22 05:31 02/27/22 08:16 Labs: Laboratory Results - last 24 hr 02/26/22 02/26/22 02/26/22 17:30 17:45 23:38 WBC RBC Hgb Hct MCV MCH MCHC RDW Plt Count Neut % (Auto) Lymph % (Auto) Larue % (Auto) Eos % (Auto) Baso % (Auto) Neut # (Auto) Lymph # (Auto) Larue # (Auto) Eos # (Auto) Baso # (Auto) Sodium Potassium Chloride Carbon Dioxide BUN Creatinine Estimated GFR BUN/Creatinine Ratio Glucose Calcium Magnesium Total Bilirubin AST ALT Alkaline Phosphatase Troponin I 0.015 0.015 Total Protein Albumin Globulin Albumin/Globulin Ratio Procalcitonin Nasal Screen MRSA (PCR) Negative for mrsa 02/27/22 02/27/22 02/27/22 05:31 08:16 08:16 WBC 11.0 RBC 3.84 L Hgb 11.4 L Hct 33.7 L MCV 87.7 MCH 29.6 MCHC 33.8 RDW 14.4 Plt Count 389 Neut % (Auto) 85.8 H Lymph % (Auto) 5.8 L Larue % (Auto) 8.1 Eos % (Auto) 0.0 L Baso % (Auto) 0.3 Neut # (Auto) 9400 H Lymph # (Auto) 600 L Larue # (Auto) 900 Eos # (Auto) 0 Baso # (Auto) 0 Sodium 133 L Potassium 3.4 Chloride 99 Carbon Dioxide 25 BUN 8 L Creatinine 0.53 L Estimated GFR > 60 BUN/Creatinine Ratio 15.1 Glucose 169 H Calcium 8.1 L Magnesium 1.8 Total Bilirubin 0.6 AST 30 ALT 26 Alkaline Phosphatase 139 H Troponin I Total Protein 5.9 L Albumin 3.1 L Globulin 2.8 Albumin/Globulin Ratio 1.1 Procalcitonin 24.3 H Nasal Screen MRSA (PCR) Assessment & Plan Assessment and plan (1) Atrial flutter with rapid ventricular response: Problem details: Patient with recalcitrant Afib/RVR, history of similar. Likely exacerbated due to pneumonia/influenza, pancreatitis. Failed electrical cardioversion, dilt, amio. Has received Dig x 1. Status: Acute Plan: - Rebolus Amio 150 now. Continue drip - Replete Mg/K now, target high-normal levels - 500cc bolus LR x 1 now given TTE result with EF 50% and collapsing IVC - Consider discussion with Cardiology - Home Metop ordered. (2) Influenza A: Status: Acute Plan: - Continue Tamiflu course - Mgmt of Pneumonia as below (3) Pneumonia: Status: Acute Plan: - Influenza A pneumonia. On cefepime/doxy, can likely de-escalate pending sputum culture - O2 supplementation as needed to maintain sat >92-96% - PRN Nebs. Cautious with overuse of Albuterol as this may contribute to RVR Time Spent With Patient Critical Care time: I spent a total of [] minutes of critical care time on this patient's care today; this time is exclusive of procedural time.
[2022-02-27] MEDS: LACTATED RINGERS 500 ML 1000 ML IV (17:02)
[2022-02-27] MEDS: SODIUM CHLORIDE 0.9% 250 ML 21 ML IV (17:05)
[2022-02-27] MEDS: POTASSIUM CHLORIDE IN WATER 10 MEQ/100 ML PIGGYBACK 100 MEQ IV ×2 (17:06→18:21)
[2022-02-27] MEDS: MAGNESIUM SULFATE 2 GM/50 ML PIGGYBACK IV (17:12)
[2022-02-27] MEDS: AMIODARONE 360 MG/200 ML PIGGYBACK 16.667 MG IV (17:17)
--- NOTE | 2022-02-27 17:51 | PM.PN.1 ---
Subjective Subjective Date Patient Seen: 02/27/22 Interval history: Patient very fatigued and appears ill. Says he can finally lie more flat without becoming too short of breath. Went into A-fib RVR this morning and currently on amio drip. He says he will have frequent A-fib RVR episodes related to his pancreatitis flares in the past. Exam Vital Signs (past 8 hours): - 02/27/22 11:37 02/27/22 13:16 02/27/22 10:00 Temperature Pulse Rate 155 H 152 H Respiratory Rate 20 Blood Pressure 102/62 Pulse Oximetry 95 Oxygen Delivery Method Room Air 02/27/22 10:00 02/27/22 10:15 02/27/22 10:15 Temperature Pulse Rate 156 H 155 H Respiratory Rate 24 35 H Blood Pressure 100/58 L Pulse Oximetry 97 94 Oxygen Delivery Method 02/27/22 10:30 02/27/22 10:30 02/27/22 10:45 Temperature Pulse Rate 155 H Respiratory Rate 44 H Blood Pressure 101/59 L 98/60 Pulse Oximetry 95 Oxygen Delivery Method 02/27/22 10:45 02/27/22 11:00 02/27/22 11:00 Temperature Pulse Rate 156 H 155 H Respiratory Rate 40 H 32 H Blood Pressure 103/58 L Pulse Oximetry 93 95 Oxygen Delivery Method 02/27/22 11:03 02/27/22 11:03 02/27/22 11:15 Temperature Pulse Rate 155 H Respiratory Rate 40 H Blood Pressure 104/61 99/60 Pulse Oximetry 96 Oxygen Delivery Method 02/27/22 11:15 02/27/22 11:30 02/27/22 11:30 Temperature Pulse Rate 150 H 150 H Respiratory Rate 26 H 28 H Blood Pressure 106/62 Pulse Oximetry 96 96 Oxygen Delivery Method 02/27/22 11:45 02/27/22 11:45 02/27/22 12:00 Temperature Pulse Rate 151 H Respiratory Rate 27 H Blood Pressure 108/65 97/65 Pulse Oximetry 94 Oxygen Delivery Method 02/27/22 12:00 02/27/22 12:15 02/27/22 12:15 Temperature Pulse Rate 152 H 153 H Respiratory Rate 40 H 31 H Blood Pressure 108/62 Pulse Oximetry 95 91 Oxygen Delivery Method 02/27/22 12:30 02/27/22 12:30 02/27/22 12:45 Temperature Pulse Rate 153 H Respiratory Rate 33 H Blood Pressure 100/57 L 104/66 Pulse Oximetry 92 Oxygen Delivery Method 02/27/22 12:45 02/27/22 13:00 02/27/22 13:15 Temperature Pulse Rate 153 H 153 H 152 H Respiratory Rate 26 H 41 H 44 H Blood Pressure Pulse Oximetry 96 Oxygen Delivery Method 02/27/22 13:26 02/27/22 13:26 02/27/22 13:30 Temperature Pulse Rate 153 H Respiratory Rate 35 H Blood Pressure 100/66 113/96 H Pulse Oximetry 95 Oxygen Delivery Method 02/27/22 13:30 02/27/22 14:52 02/27/22 15:26 Temperature 98.7 F Pulse Rate 151 H 130 H Respiratory Rate 28 H 18 Blood Pressure Pulse Oximetry 93 96 Oxygen Delivery Method Nasal Cannula 02/27/22 13:45 02/27/22 13:45 02/27/22 14:00 Temperature Pulse Rate 146 H Respiratory Rate 29 H Blood Pressure 120/56 L 115/60 Pulse Oximetry 95 Oxygen Delivery Method 02/27/22 14:00 02/27/22 14:15 02/27/22 14:15 Temperature Pulse Rate 149 H 150 H Respiratory Rate 31 H 28 H Blood Pressure 107/57 L Pulse Oximetry 95 95 Oxygen Delivery Method 02/27/22 14:30 02/27/22 14:30 02/27/22 14:45 Temperature Pulse Rate 150 H Respiratory Rate 40 H Blood Pressure 111/65 120/74 Pulse Oximetry 95 Oxygen Delivery Method 02/27/22 14:45 02/27/22 15:00 02/27/22 15:00 Temperature Pulse Rate 150 H 152 H Respiratory Rate 45 H 45 H Blood Pressure 106/60 Pulse Oximetry 95 92 Oxygen Delivery Method 02/27/22 15:15 02/27/22 15:15 02/27/22 15:30 Temperature Pulse Rate 151 H Respiratory Rate 22 Blood Pressure 107/64 109/69 Pulse Oximetry 96 Oxygen Delivery Method 02/27/22 15:30 02/27/22 15:45 02/27/22 15:45 Temperature Pulse Rate 139 H 150 H Respiratory Rate 27 H 30 H Blood Pressure 124/77 Pulse Oximetry 95 89 L Oxygen Delivery Method 02/27/22 16:00 02/27/22 16:00 02/27/22 16:15 Temperature Pulse Rate 150 H Respiratory Rate 29 H Blood Pressure 117/65 127/71 Pulse Oximetry 87 L Oxygen Delivery Method 02/27/22 16:15 02/27/22 16:30 02/27/22 16:30 Temperature Pulse Rate 150 H 149 H Respiratory Rate 29 H 35 H Blood Pressure 132/56 L Pulse Oximetry 95 95 Oxygen Delivery Method Fraction of Inspired Oxygen 21 SaO2/FiO2 Ratio 471 Oxygen Delivery Method Nasal Cannula Oxygen Flow Rate 0 Narrative Exam Narrative: General: Patient is a felipe gentleman appears younger than stated age, who looks generally unwell, diaphoretic, conversational dyspnea present HEENT: Normocephalic, atraumatic, extraocular muscles intact, oral pharynx is clear and mucous membranes are dry. Neck is supple and symmetric, trachea is midline, no adenopathy, no thyroid enlargement, nontender, no masses palpated. Positive bilateral JVD Chest: Breathing is labored, tachypneic, frequent wet coughing audible wheezing without nasal flaring, or retractions. Lungs: Auscultation of all lung godfrey are equally diminished, coarse, wet, audible gurgling/fluid/congestion, poor air exchange, coughing initiated with deep breathing or speaking, diffuse expiratory wheezing without rhonchi, or rales. Cardio: Tachycardic regular rate and rhythm without murmur, rubs, or gallops, no carotid bruit, no cardiac pulsations present. Abdomen: Soft mild 2/10 tenderness, which patient notes is improved from his baseline of chronic abdominal pain, negative for organomegaly, or masses. Bowel sounds are very hypoactive present in all 4 quadrants without guarding or rebound, no CVA tenderness. Musculoskeletal: Muscle strength and tone appear equal within normal limits, no deformity, crepitus, effusions, cyanosis, clubbing or edema present. Full range of motion intact radial pulses and pedal pulses are not well palpated, consistent with prior history of PD and bilateral fem pop stenosis. Skin: Diaphoretic, cool and intact without rashes, ulcerations or petechiae. Neuro: Alert and orientated x3, moves all extremities, sensation to touch intact, no gross deficits noted of cranial nerves. Psych: Patient has a well-kept appearance, appears generally unwell, appropriate affect, mental status attitude thought context and judgment are appropriate for age. Objective Labs Result Diagrams: 02/27/22 05:31 12/05/22 08:16 Labs: Laboratory Results - last 24 hr 02/26/22 02/26/22 02/26/22 17:30 17:45 23:38 WBC RBC Hgb Hct MCV MCH MCHC RDW Plt Count Neut % (Auto) Lymph % (Auto) [place] % (Auto) Eos % (Auto) Baso % (Auto) Neut # (Auto) Lymph # (Auto) [place] # (Auto) Eos # (Auto) Baso # (Auto) Sodium Potassium Chloride Carbon Dioxide BUN Creatinine Estimated GFR BUN/Creatinine Ratio Glucose Calcium Magnesium Total Bilirubin AST ALT Alkaline Phosphatase Troponin I 0.015 0.015 Total Protein Albumin Globulin Albumin/Globulin Ratio Procalcitonin Nasal Screen MRSA (PCR) Negative for mrsa 02/27/22 02/27/22 02/27/22 05:31 08:16 08:16 WBC 11.0 RBC 3.84 L Hgb 11.4 L Hct 33.7 L MCV 87.7 MCH 29.6 MCHC 33.8 RDW 14.4 Plt Count 389 Neut % (Auto) 85.8 H Lymph % (Auto) 5.8 L [place] % (Auto) 8.1 Eos % (Auto) 0.0 L Baso % (Auto) 0.3 Neut # (Auto) 9400 H Lymph # (Auto) 600 L [place] # (Auto) 900 Eos # (Auto) 0 Baso # (Auto) 0 Sodium 133 L Potassium 3.4 Chloride 99 Carbon Dioxide 25 BUN 8 L Creatinine 0.53 L Estimated GFR > 60 BUN/Creatinine Ratio 15.1 Glucose 169 H Calcium 8.1 L Magnesium 1.8 Total Bilirubin 0.6 AST 30 ALT 26 Alkaline Phosphatase 139 H Troponin I Total Protein 5.9 L Albumin 3.1 L Globulin 2.8 Albumin/Globulin Ratio 1.1 Procalcitonin 24.3 H Nasal Screen MRSA (PCR) [facility] Medical History Acute dehydration Atrial flutter with rapid ventricular response Campylobacter enteritis Claudication in peripheral vascular disease Enteritis, enteropathogenic E. coli Exocrine pancreatic insufficiency Gastroenteritis GERD (gastroesophageal reflux disease) History of cardioversion (03/07/21) HTN (hypertension) Hyperlipidemia Insulin dependent diabetes mellitus with complications Narcolepsy Nausea vomiting and diarrhea Pancreatic endocrine tumor Pancreatitis Paroxysmal atrial fibrillation Peripheral vascular disease Psoriasis Sepsis Surgical History H/O exploratory laparotomy History of epididymectomy History of femoropopliteal bypass Hx of biopsy Family History Father Colon cancer Mother Narcolepsy Grandmother Narcolepsy Social History household members: significant other Smoking Status: Former smoker alcohol intake: former Assessment & Plan Assessment & Plan narrative: Jann Diehl?is a 66-year-old male with history of paroxysmal AFib on Pradaxa and Eliquis, chronic pancreatic insufficiency (typically controlled at home with pancreatic enzymes, oxycodone, Zofran and Phenergan), hypertension, PAD with HX (2005) of right lower extremity angioplasty with stent placement/removal & left angioplasty insulin-dependent diabetes, narcolepsy with cataplexy, hyperlipidemia, history(06/14) cholecystectomy presented today feeling generally unwell he states he is noted his heart rate has been fast on and off for the entire week, and vomiting. Patient admitted for AFib with RVR, acute respiratory failure with hypoxia, secondary to influenza a, pneumonia, NSTEMI/myocardial injury, DKA, new onset heart failure. 1. atrial fibrillation with RVR, acute on chronic, recurrent cardioversion, on chronic anticoagulation Plavix and Pradaxa, present on admission-resolved -patient was cardioverted in ED, then went back into RVR the morning of 02/27 -pressure dropped with dilt drip, now on amio and giving boluses x2, given digoxin 500mcg load -Patient notes he is had multiple cardioversions in the past without issue, at least 2 this year alone -continue Plavix and Pradaxa, increase to 25mg q6h metoprolol -given NS 500cc boluses x2 due to likely hypovolemia -continue tele -keep mag >2 and K >4 -may need to speak with cardiology if lack of response with amio -echo as below 2. acute respiratory failure with hypoxia secondary influenza a, pneumonia, acute, present on admission, resp failure resolved -initial O2 saturations in the 80s with any movement or exertion on room air, tachypneic and tachycardic on admit -patient required 6 L O2 on nasal cannula for O2 saturation 95%, now on room air as of 02/27 -COVID negative, RSV negative, procalcitonin was 26.2 -positive influenza A-Tamiflu 60 mg b.i.d. ordered as we do not have 75 mg available. Hospitalized patient's are recommended to receive treatment even if symptoms are be on 48 hour window. -pneumonia CPAP vs aspiration-patient did report that he frequently aspirates gastric content secondary to his chronic pancreatic insufficiency -chest x-ray demonstrated patchy right mid lung airspace disease possible pneumonia -AP CT noted bilateral lower lobe pneumonia right greater than left with small parapneumonic pleural effusion-suggestive possible community-acquired pneumonia versus aspiration pneumonia. -f/u blood and sputum cultures -continue cefepime, flagyl and doxy and will deescalate based on cultures 3. NSTEMI/myocardial injury, acute, present on admission -CK-2:3.24 CK-to RI 0.4 troponins 0.023, 0.026, 0.028- trend -continue Plavix and Pradaxa 4. mild DKA, secondary to insulin-dependent diabetes, acute on chronic, hyperlipidemia present on admission-resolved - sodium 36, potassium 2.7, chloride 96, creatinine 0.49 glucose 221- gap 18 -patient's gap was closed with subcutaneous insulin and IV fluid bolus treatment in the ED department -continue patient's insulins, pravastatin, lisinopril -patient admitted under diabetic protocol -A1c 8% -recommend patient education and handouts on sick day management of diabetes. 5. Chronic heart failure, acute, present on admission -BNP 1520? -appears euvolemic/dry on exam -last echo 03/09/[address] Monte EF 45-50% -echo 02/27 with EF 50-55% with improved focal WMA's since prior 6. Hypertension, essential, chronic, present on admission -continue metoprolol 7. acute on chronic pancreatic insufficiency exacerbation, present on admission -continue Creon pancreatic enzymes prior to meals 8. Depression, chronic, present on admission -continue Cymbalta 9. Narcolepsy with cataplexy, chronic, present on admission -holding Ritalin Code status:Full Surrogate decision maker: November Little COVID PCR:Negatived COVID vaccination: Fully Vax DVT/VTE prophylaxis: Pradaxa/Plavix, SCDs only Disposition: Several days to improve PNA and A-fib RVR. I spent a total of 35 minutes of critical care time on this patient's care today; this time is exclusive of procedural time. Time Spent With Patient Critical Care time: I spent a total of [] minutes of critical care time on this patient's care today; this time is exclusive of procedural time.
[2022-02-27] MEDS: METOPROLOL IR 50 MG TABLET PO (18:15)
--- NOTE | 2022-02-27 19:42 | PC.NURSE ---
Shift Summary: Patient converted into AFIB/Aflutter this morning to rate of 160-170's. Dr. Jane notified and order for cardizem IVP with gtt received and given (see MAR). Patient's blood pressure did not tolerate cardizem gtt, and HR continued to be elevated. Dr. Jane ordered amiodarone bolus and gtt per protocol (see MAR). Patient's blood pressure remained stable, and o2 saturations stable on 2L NC, but heart rate continued to stay elevated to 150's. Dr. Samuels tele ICU consulting and additional amiodarone bolus ordered along with electrolyte replacements and LR bolus. Patient tolerated well, and HR currently 79. Patient pleasant and cooperative, able to make needs known, call light within reach.
[2022-02-27] MEDS: CEFEPIME 2 GM in SODIUM CHLORIDE 0.9% 100 ML IV (21:34)
[2022-02-27] MEDS: BENZONATATE 100 MG CAPSULE PO (21:34)
[2022-02-27] MEDS: diphenhydrAMINE 25 MG TABLET PO (21:34)
[2022-02-27] MEDS: DOXYCYCLINE HYCLATE 100 MG TABLET PO (21:34)
[2022-02-27] MEDS: SODIUM CHLORIDE 0.9% FLUSH 10 ML IV (21:37)
[2022-02-27] MEDS: PRAVASTATIN 20 MG TABLET 80 MG PO (21:44)
[2022-02-27] MEDS: IPRATROPIUM 0.5 MG/2.5 ML NEB INH (22:15)
[2022-02-27] MEDS: ONDANSETRON 4 MG/2 ML INJ IV (23:32)
[2022-02-28] VITALS (61 sets, daily range): BP systolic 104–131; BP diastolic 60–70; PULSE 68–87; RESP 14–47; TEMP 36.4–37.2; O2SAT 84–100
[2022-02-28] MEDS: METOPROLOL IR 50 MG TABLET PO ×2 (01:13→06:15)
[2022-02-28] MEDS: IPRATROPIUM 0.5 MG/2.5 ML NEB INH ×6 (03:29→23:58)
[2022-02-28] MEDS: BENZONATATE 100 MG CAPSULE PO ×3 (03:29→20:41)
[2022-02-28] MEDS: AMIODARONE IV (04:28)
[2022-02-28] MEDS: PANTOPRAZOLE DR 40 MG TABLET PO (06:15)
[2022-02-28] MEDS: OXYCODONE IR 5 MG TABLET PO (06:15)
[2022-02-28 07:15] LABS: Add Manual Diff / Slide Review NO; Basophils Absolute Auto 0 /uL (0-100); Basophils Percent Auto 0.2 % (0-2); Eosinophils Absolute Auto 0 /uL (0-450); Eosinophils Percent Auto 0.4 % (2-4); Lymphocytes Absolute Auto 800 /uL (1100-4500); Lymphocytes Percent Auto 6.5 % (25-40); Mean Corpuscular HGB Conc 33.3 % (30-36); Mean Corpuscular Hemoglobin 29.4 PG (26-34); Mean Corpuscular Volume 88.3 fL (80-100); Monocytes Absolute Auto 1300 /uL (0-900); Monocytes Percent Auto 10.7 % (3-14); Neutrophils Absolute Auto 10300 /uL (1500-7000); Neutrophils Percent Auto 82.2 % (50-75); Platelet Count 370 X10^3/uL (150-400); Red Blood Cell Count 4.07 X10^6/uL (4.5-5.9); Red Cell Distribution Width 14.3 % (11.6-14.8); White Blood Cell Count 12.6 X10^3/uL (4.5-11.0)
[2022-02-28 07:30] LABS: Alanine Aminotransferase 27 IU/L (<50); Albumin 3.3 g/dL (3.5-5.0); Albumin Globulin Ratio 1.2 (1.0-2.8); Alkaline Phosphatase 153 U/L (38-126); Aspartate Aminotransferase 25 IU/L (17-59); BUN Creatinine Ratio 18.9 (6-22); Bilirubin Total 0.4 mg/dL (0.2-1.3); Blood Urea Nitrogen 10 mg/dL (9-20); Calcium 8.2 mg/dL (8.4-10.2); Carbon Dioxide 25 mmol/L (22-32); Chloride 96 mmol/L (98-107); Estimated Glomerular Filt Rate > 60 mL/min (>60); Globulin 2.8 g/dL (1.7-4.1); Glucose 182 mg/dL (80-110); HEMOLYSIS < 15 (0-50); Magnesium 1.9 mg/dL (1.6-2.3); Potassium 3.8 mmol/L (3.4-5.1); Sodium 134 mmol/L (137-145); Total Protein 6.1 g/dL (6.3-8.2)
[2022-02-28] MEDS: INSULIN LISPRO 100 UNIT/ML 3ML VIAL SUBCUT ×4 (08:27→21:16)
[2022-02-28] MEDS: CEFEPIME 2 GM in SODIUM CHLORIDE 0.9% 100 ML IV (08:33)
[2022-02-28] MEDS: SODIUM CHLORIDE 0.9% FLUSH 10 ML IV ×2 (08:33→20:44)
[2022-02-28] MEDS: DOXYCYCLINE HYCLATE 100 MG TABLET PO ×2 (08:36→20:41)
[2022-02-28] MEDS: DABIGATRAN 75 MG CAPSULE 150 MG PO ×2 (08:37→20:41)
[2022-02-28] MEDS: DULOXETINE 30 MG CAPSULE 60 MG PO (08:37)
[2022-02-28] MEDS: metroNIDAZOLE 500 MG TABLET PO ×3 (08:37→20:41)
[2022-02-28] MEDS: CLOPIDOGREL 75 MG TABLET PO (08:37)
--- NOTE | 2022-02-28 09:45 | PM.PN.1 ---
Subjective Subjective Date Patient Seen: 02/28/22 Time Patient Seen: 15:31 Interval history: Patient converted to sinus rhythm with HR 70's overnight. Says he is feeling better and breathing is improving some. Very thankful for all the care he is getting. Exam Vital Signs (past 8 hours): - 02/28/22 03:29 02/28/22 04:00 02/28/22 02:33 Temperature 97.5 F L Pulse Rate 82 82 86 Respiratory Rate 20 25 H 38 H Blood Pressure 114/66 Pulse Oximetry 92 92 93 Oxygen Delivery Method Room Air Oxygen Flow Rate 0 Fraction of Inspired Oxygen 21 02/28/22 02:33 02/28/22 03:00 02/28/22 03:00 Temperature Pulse Rate 83 Respiratory Rate 39 H Blood Pressure 109/64 114/66 Pulse Oximetry 92 Oxygen Delivery Method Oxygen Flow Rate Fraction of Inspired Oxygen 02/28/22 04:00 02/28/22 04:00 02/28/22 04:05 Temperature Pulse Rate 69 69 Respiratory Rate 43 H 43 H Blood Pressure 104/66 Pulse Oximetry 94 92 Oxygen Delivery Method Oxygen Flow Rate Fraction of Inspired Oxygen 02/28/22 05:00 02/28/22 05:00 02/28/22 06:00 Temperature Pulse Rate 75 78 Respiratory Rate 30 H 30 H Blood Pressure 114/67 127/60 Pulse Oximetry 94 90 L Oxygen Delivery Method Nasal Cannula Oxygen Flow Rate Fraction of Inspired Oxygen 02/28/22 07:00 02/28/22 07:00 02/28/22 07:15 Temperature Pulse Rate 77 75 Respiratory Rate 47 H 46 H Blood Pressure 120/67 Pulse Oximetry 94 93 Oxygen Delivery Method Oxygen Flow Rate Fraction of Inspired Oxygen 02/28/22 08:12 02/28/22 07:30 02/28/22 07:45 Temperature Pulse Rate 69 73 70 Respiratory Rate 45 H 29 H Blood Pressure 110/63 Pulse Oximetry 92 95 Oxygen Delivery Method Oxygen Flow Rate Fraction of Inspired Oxygen 02/28/22 08:00 02/28/22 08:00 02/28/22 08:40 Temperature Pulse Rate 69 70 Respiratory Rate 40 H 20 Blood Pressure 110/63 Pulse Oximetry 97 95 Oxygen Delivery Method Nasal Cannula Oxygen Flow Rate 2 Fraction of Inspired Oxygen 28 02/28/22 08:15 02/28/22 08:30 02/28/22 08:45 Temperature Pulse Rate 70 71 69 Respiratory Rate 38 H 37 H 14 Blood Pressure Pulse Oximetry 97 86 L 97 Oxygen Delivery Method Oxygen Flow Rate Fraction of Inspired Oxygen 02/28/22 09:00 02/28/22 09:00 02/28/22 09:15 Temperature 98.5 F Pulse Rate 72 72 Respiratory Rate 24 32 H Blood Pressure 118/68 Pulse Oximetry 92 96 Oxygen Delivery Method Oxygen Flow Rate 2 Fraction of Inspired Oxygen Fraction of Inspired Oxygen 28 SaO2/FiO2 Ratio 339 Oxygen Delivery Method Nasal Cannula Oxygen Flow Rate 2 Narrative Exam Narrative: General: Patient is a fel[place] gentleman appears younger than stated age, diaphoretic and ill-appearing HEENT: Normocephalic, atraumatic, extraocular muscles intact, oral pharynx is clear and mucous membranes are dry. Neck is supple and symmetric, trachea is midline, no adenopathy, no thyroid enlargement, nontender, no masses palpated. Positive bilateral JVD Chest: Improved bilateral coarse breath sounds Lungs: Auscultation of all lung godfrey are equally diminished, coarse, wet, audible gurgling/fluid/congestion, poor air exchange, coughing initiated with deep breathing or speaking, diffuse expiratory wheezing without rhonchi, or rales. Cardio: Regular rate and rhythm without murmur, rubs, or gallops, no carotid bruit, no cardiac pulsations present. Abdomen: Soft mild 2/10 tenderness, which patient notes is improved from his baseline of chronic abdominal pain, negative for organomegaly, or masses. Bowel sounds are very hypoactive present in all 4 quadrants without guarding or rebound, no CVA tenderness. Musculoskeletal: Muscle strength and tone appear equal within normal limits, no deformity, crepitus, effusions, cyanosis, clubbing or edema present. Full range of motion intact radial pulses and pedal pulses are not well palpated, consistent with prior history of PD and bilateral fem pop stenosis. Skin: Diaphoretic, cool and intact without rashes, ulcerations or petechiae. Neuro: Alert and orientated x3, moves all extremities, sensation to touch intact, no gross deficits noted of cranial nerves. Psych: Patient has a well-kept appearance, appears generally unwell, appropriate affect, mental status attitude thought context and judgment are appropriate for age. Objective Labs Result Diagrams: 02/28/22 06:37 02/28/22 06:37 Labs: Laboratory Results - last 24 hr 02/27/22 02/27/22 02/28/22 08:16 08:16 06:37 WBC 12.6 H RBC 4.07 L Hgb 12.0 L Hct 36.0 L MCV 88.3 MCH 29.4 MCHC 33.3 RDW 14.3 Plt Count 370 Neut % (Auto) 82.2 H Lymph % (Auto) 6.5 L [place] % (Auto) 10.7 Eos % (Auto) 0.4 L Baso % (Auto) 0.2 Neut # (Auto) 81366 H Lymph # (Auto) 800 L [place] # (Auto) 1300 H Eos # (Auto) 0 Baso # (Auto) 0 Sodium 133 L Potassium 3.4 Chloride 99 Carbon Dioxide 25 BUN 8 L Creatinine 0.53 L Estimated GFR > 60 BUN/Creatinine Ratio 15.1 Glucose 169 H Calcium 8.1 L Magnesium 1.8 Total Bilirubin 0.6 AST 30 ALT 26 Alkaline Phosphatase 139 H Total Protein 5.9 L Albumin 3.1 L Globulin 2.8 Albumin/Globulin Ratio 1.1 Procalcitonin 24.3 H 02/28/22 06:37 WBC RBC Hgb Hct MCV MCH MCHC RDW Plt Count Neut % (Auto) Lymph % (Auto) [place] % (Auto) Eos % (Auto) Baso % (Auto) Neut # (Auto) Lymph # (Auto) [place] # (Auto) Eos # (Auto) Baso # (Auto) Sodium 134 L Potassium 3.8 Chloride 96 L Carbon Dioxide 25 BUN 10 Creatinine 0.53 L Estimated GFR > 60 BUN/Creatinine Ratio 18.9 Glucose 182 H Calcium 8.2 L Magnesium 1.9 Total Bilirubin 0.4 AST 25 ALT 27 Alkaline Phosphatase 153 H Total Protein 6.1 L Albumin 3.3 L Globulin 2.8 Albumin/Globulin Ratio 1.2 Procalcitonin [facility] Medical History Acute dehydration Atrial flutter with rapid ventricular response Campylobacter enteritis Claudication in peripheral vascular disease Enteritis, enteropathogenic E. coli Exocrine pancreatic insufficiency Gastroenteritis GERD (gastroesophageal reflux disease) History of cardioversion (03/07/21) HTN (hypertension) Hyperlipidemia Insulin dependent diabetes mellitus with complications Narcolepsy Nausea vomiting and diarrhea Pancreatic endocrine tumor Pancreatitis Paroxysmal atrial fibrillation Peripheral vascular disease Psoriasis Sepsis Surgical History H/O exploratory laparotomy History of epididymectomy History of femoropopliteal bypass Hx of biopsy Family History Father Colon cancer Mother Narcolepsy Grandmother Narcolepsy Social History household members: significant other Smoking Status: Former smoker alcohol intake: former Assessment & Plan Assessment & Plan narrative: 1. Atrial fibrillation with RVR, acute on chronic, recurrent cardioversion, on chronic anticoagulation Plavix and Pradaxa, present on admission-resolved -patient was cardioverted in ED, then went back into RVR the morning of 02/27, converted to sinus on 02/28 with amio drip and increased metop tart -transition to po amio 400mg BID and metoprolol XL 100mg daily -continue Plavix and Pradaxa -continue tele -keep mag >2 and K >4 -echo as below 2. Acute respiratory failure with hypoxia secondary influenza a, pneumonia, acute, present on admission, resp failure improving -initial O2 saturations in the 80s with any movement or exertion on room air, tachypneic and tachycardic on admit -patient required 6 L O2 on nasal cannula for O2 saturation 95%, now on room air as of 02/27 -COVID negative, RSV negative, procalcitonin was 26.2 -positive influenza A-Tamiflu 60 mg b.i.d. ordered as we do not have 75 mg available. Hospitalized patient's are recommended to receive treatment even if symptoms are be on 48 hour window. -pneumonia CPAP vs aspiration-patient did report that he frequently aspirates gastric content secondary to his chronic pancreatic insufficiency -chest x-ray demonstrated patchy right mid lung airspace disease possible pneumonia -AP CT noted bilateral lower lobe pneumonia right greater than left with small parapneumonic pleural effusion-suggestive possible community-acquired pneumonia versus aspiration pneumonia. -blood cultures NGTD and sputum with only yeast likely contaminant -deescalate to rocephin, flagyl and doxy (avoiding azithro due to QTc prolongation with amio) 3. NSTEMI/myocardial injury, acute, present on admission -CK-2:3.24 CK-to RI 0.4 troponins 0.023, 0.026, 0.028 -continue Plavix and Pradaxa 4. mild DKA, secondary to insulin-dependent diabetes, acute on chronic, hyperlipidemia present on admission-resolved - sodium 36, potassium 2.7, chloride 96, creatinine 0.49 glucose 221- gap 18 on admission -patient's gap was closed with subcutaneous insulin and IV fluid bolus treatment in the ED department -continue patient's insulins, pravastatin, lisinopril -patient admitted under diabetic protocol -A1c 8% -recommend patient education and handouts on sick day management of diabetes. 5. Chronic heart failure, acute, present on admission -BNP 1520? -appears euvolemic/dry on exam -last echo 03/09/[address] Monte EF 45-50% -echo 02/27 with EF 50-55% with improved focal WMA's since prior 6. Hypertension, essential, chronic, present on admission -continue metoprolol 7. acute on chronic pancreatic insufficiency exacerbation, present on admission -continue Creon pancreatic enzymes prior to meals 8. Depression, chronic, present on admission -continue Cymbalta 9. Narcolepsy with cataplexy, chronic, present on admission -holding Ritalin Code status:Full Surrogate decision maker: November Little COVID PCR:Negatived COVID vaccination: Fully Vax DVT/VTE prophylaxis: Pradaxa/Plavix, SCDs only Disposition: 2-3 days Time Spent With Patient Critical Care time: I spent a total of [] minutes of critical care time on this patient's care today; this time is exclusive of procedural time.
[2022-02-28] MEDS: CODEINE/GUAIFENESIN LIQUID 5ML UDC 5 ML PO (10:35)
--- NOTE | 2022-02-28 10:53 | DIET.CONS2 ---
Dietary Inpatient Consultation Note Admission Date: 02/25/2022 19:14 Kitchen brought in [employer] pea protein drinks for pt. Pt tolerating. Diet: 02/26/22 Breakfast Heart Healthy Diet Diet Modifications: Please [id number] Sodium Level: 2 gm Sodium Nutrition Percent Meal Consumed 100% 02/27/22 13:00 Percent Meal Consumed 75% 02/26/22 18:27 Percent Meal Consumed 25% 02/26/22 14:40 Electronically Signed by: Jennifer Hercules 02/28/22 10:53 Clinical Dietitian [address] [id number]
[2022-02-28] MEDS: METOPROLOL ER 50 MG TABLET 100 MG PO (10:59)
[2022-02-28] MEDS: AMIODARONE 200 MG TABLET 400 MG PO ×2 (10:59→17:57)
--- NOTE | 2022-02-28 11:14 | PM.ICURNDS ---
- Date Patient Seen: 02/28/22 Time Patient Seen: 11:25 :: This patient was seen via real time interactive two-way audiovisual telecommunication. Note: Discussed with RN/pharmacy. I also spoke with patient via two-way video. Patient converted yesterday evening after 2nd Amiodarone bolus, continued on drip overnight. Also on Metop Q6hr. HR in 70-80s, BP is WNL. Continues with cough, NC requirement. Recs: - Given Amiodarone IV load now complete, would stop Amiodarone drip and start Amio 400mg PO BID - If RVR recurrent today, would consider discussion with Cardiology. - Continue Metop. Consider decrease dosing over next 24-48 hours - Would consider narrowing antibiotic coverage to CAP coverage (Ceftriaxone, Azithromycin likely reasonable) - Obtain CXR today given significant cough, eval for ptx/effusions. Tele-ICU will continue to follow allong
--- NOTE | 2022-02-28 11:19 | DI.RAD.S_ITS ---
PROCEDURE: XR CHEST 1V INDICATIONS: cough, pneumonia, worsening shortness of breath TECHNIQUE: One view of the chest was acquired. COMPARISON: [facility], CR, XR CHEST 1V, 02/25/2022, 13:45. FINDINGS: Surgical changes and devices: None. Lungs and pleura: Multiple airspace opacities are again noted throughout right lung field suggestive of large right-sided pulmonary infiltrates. Subtle patchy infiltrate/atelectasis in left mid to lower lung field is seen. No pleural effusions or pneumothorax. Mediastinum: Mediastinal contours appear normal. Heart size is normal. Bones and chest wall: No suspicious bony lesions. Overlying soft tissues appear unremarkable. IMPRESSION: Interval worsening of right-sided pulmonary infiltrates and small infiltrate/atelectasis in left lower lung field. No pleural effusion or pneumothorax. Dictated by: Savage Early M.D. on 02/28/2022 at 11:55 Approved by: Savage Early M.D. on 02/28/2022 at 11:56
[2022-02-28] MEDS: OXYCODONE IR 5 MG TABLET 10 MG PO ×3 (11:29→20:41)
[2022-02-28] MEDS: ACETAMINOPHEN 325 MG TABLET 650 MG PO ×2 (13:40→19:38)
[2022-02-28] MEDS: LORazepam 0.5 MG TABLET PO ×2 (16:00→23:39)
[2022-02-28 16:10] LABS: Clostridium Difficile Tox PCR Negative for C. diff (Negative)
[2022-02-28] MEDS: AMYLASE PO (16:44)
[2022-02-28] MEDS: LIPASE PO (16:44)
[2022-02-28] MEDS: PROTEASE PO (16:44)
[2022-02-28] MEDS: PRAVASTATIN 20 MG TABLET 80 MG PO (20:40)
[2022-02-28] MEDS: cefTRIAXone 1,000 MG in SODIUM CHLORIDE 0.9% 100 ML 200 MG IV (21:13)
[2022-03-01] VITALS (23 sets, daily range): BP systolic 108–139; BP diastolic 59–88; PULSE 70–83; RESP 14–41; TEMP 36.7–37.5; O2SAT 88–100
[2022-03-01] MEDS: BENZONATATE 100 MG CAPSULE PO ×2 (01:43→08:48)
[2022-03-01] MEDS: OXYCODONE IR 5 MG TABLET 10 MG PO ×4 (01:43→21:03)
[2022-03-01] MEDS: ACETAMINOPHEN 325 MG TABLET 650 MG PO (04:51)
[2022-03-01] MEDS: PANTOPRAZOLE DR 40 MG TABLET PO (06:25)
[2022-03-01 06:30] LABS: Alanine Aminotransferase 21 IU/L (<50); Albumin 2.9 g/dL (3.5-5.0); Albumin Globulin Ratio 1.1 (1.0-2.8); Alkaline Phosphatase 129 U/L (38-126); Aspartate Aminotransferase 19 IU/L (17-59); BUN Creatinine Ratio 20.8 (6-22); Bilirubin Total 0.5 mg/dL (0.2-1.3); Blood Urea Nitrogen 10 mg/dL (9-20); Calcium 7.8 mg/dL (8.4-10.2); Carbon Dioxide 26 mmol/L (22-32); Chloride 95 mmol/L (98-107); Estimated Glomerular Filt Rate > 60 mL/min (>60); Globulin 2.7 g/dL (1.7-4.1); Glucose 138 mg/dL (80-110); HEMOLYSIS < 15 (0-50); Magnesium 1.6 mg/dL (1.6-2.3); Potassium 3.6 mmol/L (3.4-5.1); Sodium 131 mmol/L (137-145); Total Protein 5.6 g/dL (6.3-8.2)
[2022-03-01 07:09] LABS: Add Manual Diff / Slide Review NO; Basophils Absolute Auto 100 /uL (0-100); Basophils Percent Auto 0.9 % (0-2); Eosinophils Absolute Auto 200 /uL (0-450); Eosinophils Percent Auto 2.1 % (2-4); Hematocrit 33.6 % (41-53); Hemoglobin 11.4 g/dL (13.5-17.5); Lymphocytes Absolute Auto 500 /uL (1100-4500); Lymphocytes Percent Auto 4.1 % (25-40); Mean Corpuscular HGB Conc 33.8 % (30-36); Mean Corpuscular Hemoglobin 29.4 PG (26-34); Mean Corpuscular Volume 86.7 fL (80-100); Monocytes Absolute Auto 600 /uL (0-900); Neutrophils Absolute Auto 10300 /uL (1500-7000); Neutrophils Percent Auto 87.9 % (50-75); Platelet Count 380 X10^3/uL (150-400); Red Blood Cell Count 3.87 X10^6/uL (4.5-5.9); Red Cell Distribution Width 14.2 % (11.6-14.8); White Blood Cell Count 11.7 X10^3/uL (4.5-11.0)
[2022-03-01] MEDS: INSULIN LISPRO 100 UNIT/ML 3ML VIAL SUBCUT ×3 (08:00→21:27)
[2022-03-01] MEDS: CLOPIDOGREL 75 MG TABLET PO (08:48)
[2022-03-01] MEDS: metroNIDAZOLE 500 MG TABLET PO ×3 (08:48→21:03)
[2022-03-01] MEDS: CODEINE/GUAIFENESIN LIQUID 5ML UDC 5 ML PO ×2 (08:48→16:48)
[2022-03-01] MEDS: DULOXETINE 30 MG CAPSULE 60 MG PO (08:49)
[2022-03-01] MEDS: METOPROLOL ER 50 MG TABLET 100 MG PO (08:49)
[2022-03-01] MEDS: lisinopriL 5 MG TABLET 2.5 MG PO (08:49)
[2022-03-01] MEDS: AMIODARONE 200 MG TABLET 400 MG PO ×2 (08:49→16:48)
[2022-03-01] MEDS: DOXYCYCLINE HYCLATE 100 MG TABLET PO ×2 (08:49→21:03)
[2022-03-01] MEDS: DABIGATRAN 75 MG CAPSULE 150 MG PO ×2 (08:50→21:02)
[2022-03-01] MEDS: SODIUM CHLORIDE 0.9% FLUSH 10 ML IV ×2 (08:54→21:03)
[2022-03-01] MEDS: PROTEASE PO ×3 (08:54→16:49)
[2022-03-01] MEDS: LIPASE PO ×3 (08:54→16:49)
[2022-03-01] MEDS: AMYLASE PO ×3 (08:54→16:49)
--- NOTE | 2022-03-01 09:11 | PM.PN.1 ---
Subjective Subjective Date Patient Seen: 03/01/22 Interval history: Patient still very fatigued. Didn't sleep well due to constant coughing. Not feeling as well today. Exam Vital Signs (past 8 hours): - 03/01/22 04:00 03/01/22 04:00 03/01/22 04:00 Temperature 98.8 F Pulse Rate 81 Respiratory Rate 29 H Blood Pressure 108/59 L Pulse Oximetry 93 Oxygen Delivery Method Room Air Fraction of Inspired Oxygen 28 SaO2/FiO2 Ratio 339 Oxygen Delivery Method Room Air Oxygen Flow Rate 2 Narrative Exam Narrative: General: Patient is a felipe gentleman appears younger than stated age, diaphoretic and ill-appearing HEENT: Normocephalic, atraumatic, extraocular muscles intact, oral pharynx is clear and mucous membranes are dry. Neck is supple and symmetric, trachea is midline, no adenopathy, no thyroid enlargement, nontender, no masses palpated. Positive bilateral JVD Chest: Improved bilateral coarse breath sounds Lungs: Auscultation of all lung godfrey are equally diminished, coarse, wet, audible gurgling/fluid/congestion, poor air exchange, coughing initiated with deep breathing or speaking, no expiratory wheezing, or rales. Cardio: Regular rate and rhythm without murmur, rubs, or gallops, no carotid bruit, no cardiac pulsations present. Abdomen: Soft mild 2/10 tenderness, which patient notes is improved from his baseline of chronic abdominal pain, negative for organomegaly, or masses. Bowel sounds are very hypoactive present in all 4 quadrants without guarding or rebound, no CVA tenderness. Musculoskeletal: Muscle strength and tone appear equal within normal limits, no deformity, crepitus, effusions, cyanosis, clubbing or edema present. Full range of motion intact radial pulses and pedal pulses are not well palpated, consistent with prior history of PD and bilateral fem pop stenosis. Skin: Diaphoretic, cool and intact without rashes, ulcerations or petechiae. Neuro: Alert and orientated x3, moves all extremities, sensation to touch intact, no gross deficits noted of cranial nerves. Psych: Patient has a well-kept appearance, appears generally unwell, appropriate affect, mental status attitude thought context and judgment are appropriate for age. Objective Labs Result Diagrams: 03/01/22 05:46 03/01/22 05:46 Labs: Laboratory Results - last 24 hr 12/06/22 12/07/22 12/07/22 11:45 05:46 05:46 WBC 11.7 H RBC 3.87 L Hgb 11.4 L Hct 33.6 L MCV 86.7 MCH 29.4 MCHC 33.8 RDW 14.2 Plt Count 380 Neut % (Auto) 87.9 H Lymph % (Auto) 4.1 L Towner % (Auto) 5.0 Eos % (Auto) 2.1 Baso % (Auto) 0.9 Neut # (Auto) 65357 H Lymph # (Auto) 500 L Towner # (Auto) 600 Eos # (Auto) 200 Baso # (Auto) 100 Sodium 131 L Potassium 3.6 Chloride 95 L Carbon Dioxide 26 BUN 10 Creatinine 0.48 L Estimated GFR > 60 BUN/Creatinine Ratio 20.8 Glucose 138 H Calcium 7.8 L Magnesium 1.6 Total Bilirubin 0.5 AST 19 ALT 21 Alkaline Phosphatase 129 H Total Protein 5.6 L Albumin 2.9 L Globulin 2.7 Albumin/Globulin Ratio 1.1 C. difficile Tox (PCR) Negative for c. diff [facility] Medical History Acute dehydration Atrial flutter with rapid ventricular response Campylobacter enteritis Claudication in peripheral vascular disease Enteritis, enteropathogenic E. coli Exocrine pancreatic insufficiency Gastroenteritis GERD (gastroesophageal reflux disease) History of cardioversion (03/07/21) HTN (hypertension) Hyperlipidemia Insulin dependent diabetes mellitus with complications Narcolepsy Nausea vomiting and diarrhea Pancreatic endocrine tumor Pancreatitis Paroxysmal atrial fibrillation Peripheral vascular disease Psoriasis Sepsis Surgical History H/O exploratory laparotomy History of epididymectomy History of femoropopliteal bypass Hx of biopsy Family History Father Colon cancer Mother Narcolepsy Grandmother Narcolepsy Social History household members: significant other Smoking Status: Former smoker alcohol intake: former Assessment & Plan Assessment & Plan narrative: 1. Atrial fibrillation with RVR, acute on chronic, recurrent cardioversion, on chronic anticoagulation Plavix and Pradaxa, present on admission-resolved -patient was cardioverted in ED, then went back into RVR the morning of 02/27, converted to sinus on 02/28 with amio drip and increased metop tart -transitioned to po amio 400mg BID and metoprolol XL 100mg daily -continue Plavix and Pradaxa -continue tele -keep mag >2 and K >4 -echo as below 2. Acute respiratory failure with hypoxia secondary influenza a, pneumonia, acute, present on admission, resp failure improving -initial O2 saturations in the 80s with any movement or exertion on room air, tachypneic and tachycardic on admit -patient required 6 L O2 on nasal cannula for O2 saturation 95%, now on room air as of 02/27 -COVID negative, RSV negative, procalcitonin was 26.2 -positive influenza A-Tamiflu 60 mg b.i.d. ordered as we do not have 75 mg available. Hospitalized patient's are recommended to receive treatment even if symptoms are be on 48 hour window. -pneumonia CPAP vs aspiration-patient did report that he frequently aspirates gastric content secondary to his chronic pancreatic insufficiency -chest x-ray demonstrated patchy right mid lung airspace disease possible pneumonia -AP CT noted bilateral lower lobe pneumonia right greater than left with small parapneumonic pleural effusion-suggestive possible community-acquired pneumonia versus aspiration pneumonia. -blood cultures NGTD and sputum with only yeast likely contaminant -deescalate to rocephin, flagyl and doxy (avoiding azithro due to QTc prolongation with amio) 3. NSTEMI/myocardial injury, acute, present on admission -CK-2:3.24 CK-to RI 0.4 troponins 0.023, 0.026, 0.028 -continue Plavix and Pradaxa 4. mild DKA, secondary to insulin-dependent diabetes, acute on chronic, hyperlipidemia present on admission-resolved - sodium 36, potassium 2.7, chloride 96, creatinine 0.49 glucose 221- gap 18 on admission -patient's gap was closed with subcutaneous insulin and IV fluid bolus treatment in the ED department -continue patient's insulins, pravastatin, lisinopril -patient admitted under diabetic protocol -A1c 8% -recommend patient education and handouts on sick day management of diabetes. 5. Chronic heart failure, acute, present on admission -BNP 1520? -appears euvolemic/dry on exam -last echo 03/09/[address] Monte EF 45-50% -echo 02/27 with EF 50-55% with improved focal WMA's since prior 6. Hypertension, essential, chronic, present on admission -continue metoprolol 7. acute on chronic pancreatic insufficiency exacerbation, present on admission -continue Creon pancreatic enzymes prior to meals 8. Depression, chronic, present on admission -continue Cymbalta 9. Narcolepsy with cataplexy, chronic, present on admission -holding Ritalin Code status:Full Surrogate decision maker: November COVID PCR:Negatived COVID vaccination: Fully Vax DVT/VTE prophylaxis: Pradaxa/Plavix, SCDs only Disposition: Now off ICU status. Several days for clinical improvement of resp failure from the flu and pneumonia. Time Spent With Patient Critical Care time: I spent a total of [] minutes of critical care time on this patient's care today; this time is exclusive of procedural time.
[2022-03-01] MEDS: IPRATROPIUM 0.5 MG/2.5 ML NEB INH ×4 (09:37→22:13)
[2022-03-01] MEDS: MAGNESIUM SULFATE 2 GM/50 ML PIGGYBACK IV (09:40)
[2022-03-01] MEDS: BENZOCAINE/MENTHOL 1 LOZ PKT 1 EACH PO ×3 (09:40→23:46)
[2022-03-01] MEDS: LORazepam 0.5 MG TABLET PO ×2 (11:13→21:32)
[2022-03-01] MEDS: cefTRIAXone 1,000 MG in SODIUM CHLORIDE 0.9% 100 ML 200 MG IV (21:02)
[2022-03-01] MEDS: PRAVASTATIN 20 MG TABLET 80 MG PO (21:03)
[2022-03-02] VITALS (14 sets, daily range): BP systolic 96–118; BP diastolic 53–62; PULSE 72–84; RESP 18–39; TEMP 36.3–36.9; O2SAT 92–96
[2022-03-02] MEDS: CODEINE/GUAIFENESIN LIQUID 5ML UDC 5 ML PO ×4 (01:08→23:51)
[2022-03-02] MEDS: IPRATROPIUM 0.5 MG/2.5 ML NEB INH ×4 (02:13→19:03)
[2022-03-02] MEDS: OXYCODONE IR 5 MG TABLET 10 MG PO ×3 (04:27→23:50)
[2022-03-02] MEDS: BENZOCAINE/MENTHOL 1 LOZ PKT 1 EACH PO ×3 (04:27→18:52)
[2022-03-02] MEDS: PANTOPRAZOLE DR 40 MG TABLET PO (06:28)
[2022-03-02 06:38] LABS: Add Manual Diff / Slide Review NO; Basophils Absolute Auto 0 /uL (0-100); Basophils Percent Auto 0.4 % (0-2); Eosinophils Absolute Auto 200 /uL (0-450); Eosinophils Percent Auto 1.5 % (2-4); Hematocrit 35.4 % (41-53); Lymphocytes Absolute Auto 600 /uL (1100-4500); Lymphocytes Percent Auto 5.4 % (25-40); Mean Corpuscular HGB Conc 33.9 % (30-36); Mean Corpuscular Hemoglobin 29.7 PG (26-34); Mean Corpuscular Volume 87.6 fL (80-100); Monocytes Absolute Auto 1000 /uL (0-900); Neutrophils Absolute Auto 8900 /uL (1500-7000); Neutrophils Percent Auto 83.7 % (50-75); Platelet Count 386 X10^3/uL (150-400); Red Blood Cell Count 4.04 X10^6/uL (4.5-5.9); Red Cell Distribution Width 13.6 % (11.6-14.8); White Blood Cell Count 10.6 X10^3/uL (4.5-11.0)
[2022-03-02 06:47] LABS: Blood Urea Nitrogen 9 mg/dL (9-20); Calcium 7.8 mg/dL (8.4-10.2); Carbon Dioxide 27 mmol/L (22-32); Chloride 96 mmol/L (98-107); Estimated Glomerular Filt Rate > 60 mL/min (>60); Glucose 123 mg/dL (80-110); HEMOLYSIS 19 (0-50); Potassium 3.6 mmol/L (3.4-5.1); Sodium 132 mmol/L (137-145)
[2022-03-02 07:02] LABS: Magnesium 1.7 mg/dL (1.6-2.3)
[2022-03-02] MEDS: lisinopriL 5 MG TABLET 2.5 MG PO (08:09)
[2022-03-02] MEDS: AMIODARONE 200 MG TABLET 400 MG PO ×2 (08:09→17:12)
[2022-03-02] MEDS: METOPROLOL ER 50 MG TABLET 100 MG PO (08:09)
[2022-03-02] MEDS: CLOPIDOGREL 75 MG TABLET PO (08:09)
[2022-03-02] MEDS: DOXYCYCLINE HYCLATE 100 MG TABLET PO ×2 (08:09→21:16)
[2022-03-02] MEDS: LORazepam 0.5 MG TABLET PO ×2 (08:09→18:53)
[2022-03-02] MEDS: DABIGATRAN 75 MG CAPSULE 150 MG PO ×2 (08:09→21:16)
[2022-03-02] MEDS: metroNIDAZOLE 500 MG TABLET PO ×3 (08:09→21:54)
[2022-03-02] MEDS: AMYLASE PO ×3 (08:10→21:17)
[2022-03-02] MEDS: PROTEASE PO ×3 (08:10→21:17)
[2022-03-02] MEDS: SODIUM CHLORIDE 0.9% FLUSH 10 ML IV ×2 (08:10→21:21)
[2022-03-02] MEDS: LIPASE PO ×3 (08:10→21:17)
[2022-03-02] MEDS: DULOXETINE 30 MG CAPSULE 60 MG PO (08:10)
[2022-03-02] MEDS: INSULIN LISPRO 100 UNIT/ML 3ML VIAL SUBCUT ×4 (08:12→21:30)
--- NOTE | 2022-03-02 11:17 | PM.PN.1 ---
Subjective Subjective Date Patient Seen: 03/02/22 Interval history: Patient feels like he's turned the corner. Still very tired but feeling better. Exam Vital Signs (past 8 hours): - 03/02/22 04:00 03/02/22 07:27 03/02/22 04:00 Temperature 97.7 F Pulse Rate 73 80 Respiratory Rate 26 H 20 Blood Pressure 108/62 108/62 Pulse Oximetry 93 93 Oxygen Delivery Method Room Air Oxygen Flow Rate 03/02/22 04:00 03/02/22 06:00 03/02/22 08:39 Temperature Pulse Rate 74 81 78 Respiratory Rate 39 H 28 H Blood Pressure 118/60 Pulse Oximetry 93 93 Oxygen Delivery Method Oxygen Flow Rate 03/02/22 07:00 03/02/22 09:58 03/02/22 09:55 Temperature 98.1 F 98.1 F Pulse Rate 72 72 Respiratory Rate 22 22 Blood Pressure 96/53 L 96/53 L Pulse Oximetry 92 92 Oxygen Delivery Method Room Air Oxygen Flow Rate 0 0 Fraction of Inspired Oxygen 21 SaO2/FiO2 Ratio 457 Oxygen Delivery Method Room Air Oxygen Flow Rate 0 Narrative Exam Narrative: General: Patient is a felipe gentleman appears younger than stated age, looking less ill today HEENT: Normocephalic, atraumatic, extraocular muscles intact, oral pharynx is clear and mucous membranes are dry. Neck is supple and symmetric, trachea is midline, no adenopathy, no thyroid enlargement, nontender, no masses palpated. Positive bilateral JVD Chest: Improved bilateral coarse breath sounds Lungs: Auscultation of all lung godfrey are equally diminished, coarse, wet, audible gurgling/fluid/congestion, poor air exchange, coughing initiated with deep breathing or speaking, no expiratory wheezing, or rales. Cardio: Regular rate and rhythm without murmur, rubs, or gallops, no carotid bruit, no cardiac pulsations present. Abdomen: Soft mild 2/10 tenderness, which patient notes is improved from his baseline of chronic abdominal pain, negative for organomegaly, or masses. Bowel sounds are very hypoactive present in all 4 quadrants without guarding or rebound, no CVA tenderness. Musculoskeletal: Muscle strength and tone appear equal within normal limits, no deformity, crepitus, effusions, cyanosis, clubbing or edema present. Full range of motion intact radial pulses and pedal pulses are not well palpated, consistent with prior history of PD and bilateral fem pop stenosis. Skin: Diaphoretic, cool and intact without rashes, ulcerations or petechiae. Neuro: Alert and orientated x3, moves all extremities, sensation to touch intact, no gross deficits noted of cranial nerves. Psych: Patient has a well-kept appearance, appears generally unwell, appropriate affect, mental status attitude thought context and judgment are appropriate for age. Objective Labs Result Diagrams: 03/02/22 05:52 03/02/22 05:52 Labs: Laboratory Results - last 24 hr 03/02/22 03/02/22 03/02/22 05:52 05:52 05:52 WBC 10.6 RBC 4.04 L Hgb 12.0 L Hct 35.4 L MCV 87.6 MCH 29.7 MCHC 33.9 RDW 13.6 Plt Count 386 Neut % (Auto) 83.7 H Lymph % (Auto) 5.4 L [place] % (Auto) 9.0 Eos % (Auto) 1.5 L Baso % (Auto) 0.4 Neut # (Auto) 8900 H Lymph # (Auto) 600 L [place] # (Auto) 1000 H Eos # (Auto) 200 Baso # (Auto) 0 Sodium 132 L Potassium 3.6 Chloride 96 L Carbon Dioxide 27 BUN 9 Creatinine 0.50 L Estimated GFR > 60 BUN/Creatinine Ratio 18.0 Glucose 123 H Calcium 7.8 L Magnesium 1.7 PFSH Medical History Acute dehydration Atrial flutter with rapid ventricular response Campylobacter enteritis Claudication in peripheral vascular disease Enteritis, enteropathogenic E. coli Exocrine pancreatic insufficiency Gastroenteritis GERD (gastroesophageal reflux disease) History of cardioversion (03/07/21) HTN (hypertension) Hyperlipidemia Insulin dependent diabetes mellitus with complications Narcolepsy Nausea vomiting and diarrhea Pancreatic endocrine tumor Pancreatitis Paroxysmal atrial fibrillation Peripheral vascular disease Psoriasis Sepsis Surgical History H/O exploratory laparotomy History of epididymectomy History of femoropopliteal bypass Hx of biopsy Family History Father Colon cancer Mother Narcolepsy Grandmother Narcolepsy Social History household members: significant other Smoking Status: Former smoker alcohol intake: former Assessment & Plan Assessment & Plan narrative: 1. Atrial fibrillation with RVR, acute on chronic, recurrent cardioversion, on chronic anticoagulation Plavix and Pradaxa, present on admission-resolved -patient was cardioverted in ED, then went back into RVR the morning of 02/27, converted to sinus on 02/28 with amio drip and increased metop tart -transitioned to po amio 400mg BID and metoprolol XL 100mg daily -continue Plavix and Pradaxa -continue tele -keep mag >2 and K >4 -echo as below 2. Acute respiratory failure with hypoxia secondary influenza a, pneumonia, acute, present on admission, resp failure improving -initial O2 saturations in the 80s with any movement or exertion on room air, tachypneic and tachycardic on admit -patient required 6 L O2 on nasal cannula for O2 saturation 95%, now on room air as of 02/27 -COVID negative, RSV negative, procalcitonin was 26.2 -positive influenza A-Tamiflu 60 mg b.i.d. ordered as we do not have 75 mg available. Hospitalized patient's are recommended to receive treatment even if symptoms are be on 48 hour window. -pneumonia CPAP vs aspiration-patient did report that he frequently aspirates gastric content secondary to his chronic pancreatic insufficiency -chest x-ray demonstrated patchy right mid lung airspace disease possible pneumonia -AP CT noted bilateral lower lobe pneumonia right greater than left with small parapneumonic pleural effusion-suggestive possible community-acquired pneumonia versus aspiration pneumonia. -blood cultures NGTD and sputum with only yeast likely contaminant -deescalate to rocephin, flagyl and doxy (avoiding azithro due to QTc prolongation with amio) -obtain repeat CXR 3. NSTEMI/myocardial injury, acute, present on admission -CK-2:3.24 CK-to RI 0.4 troponins 0.023, 0.026, 0.028 -continue Plavix and Pradaxa 4. mild DKA, secondary to insulin-dependent diabetes, acute on chronic, hyperlipidemia present on admission-resolved - sodium 36, potassium 2.7, chloride 96, creatinine 0.49 glucose 221- gap 18 on admission -patient's gap was closed with subcutaneous insulin and IV fluid bolus treatment in the ED department -continue patient's insulins, pravastatin, lisinopril -patient admitted under diabetic protocol -A1c 8% -recommend patient education and handouts on sick day management of diabetes. 5. Chronic heart failure, acute, present on admission -BNP 1520? -appears euvolemic/dry on exam -last echo 03/09/[address] Monte EF 45-50% -echo 02/27 with EF 50-55% with improved focal WMA's since prior 6. Hypertension, essential, chronic, present on admission -continue metoprolol 7. acute on chronic pancreatic insufficiency exacerbation, present on admission -continue Creon pancreatic enzymes prior to meals 8. Depression, chronic, present on admission -continue Cymbalta 9. Narcolepsy with cataplexy, chronic, present on admission -holding Ritalin Code status:Full Surrogate decision maker: November Little COVID PCR:Negatived COVID vaccination: Fully Vax DVT/VTE prophylaxis: Pradaxa/Plavix, SCDs only Disposition: Home in 1-2 more days. Time Spent With Patient Critical Care time: I spent a total of [] minutes of critical care time on this patient's care today; this time is exclusive of procedural time.
--- NOTE | 2022-03-02 11:30 | PT.IIE ---
Current Diagnoses Unspecified atrial fibrillation (02/25/22) Unspecified atrial flutter (02/25/22) Influenza due to other identified influenza virus with other respiratory manifestations (02/25/22) Pneumonia, unspecified organism (02/25/22) Surgical History ([facility]22 [facility] 06[facility]07 [facility] H/O exploratory laparotomy History of epididymectomy History of femoropopliteal bypass Hx of biopsy Medical History (Last Reviewed 02/27/22 @ 06:07 [facility] Acute dehydration Atrial flutter with rapid ventricular response Campylobacter enteritis Claudication in peripheral vascular disease Enteritis, enteropathogenic E. coli Exocrine pancreatic insufficiency Gastroenteritis GERD (gastroesophageal reflux disease) History of cardioversion (03/07/21) HTN (hypertension) Hyperlipidemia Insulin dependent diabetes mellitus with complications Narcolepsy Nausea vomiting and diarrhea Pancreatic endocrine tumor Pancreatitis Paroxysmal atrial fibrillation Peripheral vascular disease Psoriasis Sepsis Physical Therapy Inpatient Evaluation/Re-Eval M1 PT/OT-IP Prior Functional Status Start: 03/02/22 13:45 Freq: NEEDED Status: Active Protocol: Document 03/02/22 11:30 AB (Rec: 03/02/22 13:58 AB [email or web address]) Medical Review Prior Functional Status Medical History Reviewed Yes Communication able to make needs known; presents with a soft voice Social History Household Members significant other Living Arrangements House Number of Floors (Floors) Two Floors Number of Stairs To Enter/Railing? 13 platform stept to enter the house 30 steps with B rails to bedroom level pt has 2 houses but other house is also 2 level Home Environment Walk in Shower Home Equipment Front Wheel Walker,Straight Cane,Shower Seat without Backrest,Hand Held Shower,Grab Bars In Shower M2 PT-IP Current Condition Start: 03/02/22 13:45 Freq: NEEDED Status: Active Protocol: Document 03/02/22 11:30 AB (Rec: 03/02/22 13:58 AB [email or web address]) Physical Therapy Current Condition Current Condition Evaluation Date 03/02/22 Treatment Diagnosis A-fib; Influenza A; PNA, NSTEMI; difficulty in walking Onset Date 02/25/22 M3 PT-IP Subjective Start: 03/02/22 13:45 Freq: NEEDED Status: Active Protocol: Document 03/02/22 11:30 AB (Rec: 03/02/22 13:58 AB [email or web address]) Subjective Physical Therapy Visit Type Type Initial Evaluation Visit Start Time 11:30 Visit Stop Time 12:10 Total Visit Minutes 40 Number of TECHNOLOGY SALES CONSULTANT Visits 0 Physical Therapy Visit Comments Patient Comments agreeable to do PT M4 PT-IP Mobility and Gait Start: 03/02/22 13:45 Freq: NEEDED Status: Active Protocol: Document 03/02/22 11:30 AB (Rec: 03/02/22 13:58 AB [facility]) PT-Bed Mobility Assessment Supine to Sit Supine to Sit Standby Assistance,Head of Bed Elevated,Bedrails Sit to Supine Sit to Supine Standby Assistance,Head of Bed Elevated PT-Transfer Assessment Sit to and From Stand Sit to and from Stand Standby Assistance,Contact Guard Assistance,1 Person Assistance,Use of Upper Extremities Equipment Transfer Assistive Device Gait Belt,Front Wheeled Walker Orthotic/Prosthetic Devices or Brace: No Comments Mobility Comments O2 sat at room air maintained 94-96% with activity. BP stable: 112-116/64-68 completed supine to sit SBA. able to sit on EOB SBA. completed sit to stand SBA to CGA and ambulated in room ~ 35 ft using FWW SBA to CGA. presents with unsteady antalgic gait. pt stated that he had previous R femoral bypass graft affecting walking . (+) SOB but O2 sat at 96%. pt requested to go back to bed . completed sit to supine SBA . positioned on the bed. call light and table placed within reach. Gait Assessment Gait Gait Assistance Required: Standby Assistance,Contact Guard Assist Distance (Feet) 35 Able to Maintain Weight Bearing Status Yes During Gait Assistive Devices Assistive Device Gait Belt,Front Wheeled Walker Orthotic/Prosthetic Devices or Brace: No Gait Deviations General Gait Pattern Antalgic,Decreased Stride Length,Decreased Feet Clearance,Step-to Gait Factors Limiting Gait Function Factors Limiting Gait Function Decreased Activity Tolerance, Decreased Strength,Limited Range of Motion,Poor Balance, Poor Safety Awareness, Respiratory Distress PT-Balance Assessment Sitting Balance and Reactions Static Sitting Balance Ability Normal Dynamic Sitting Balance Ability Good Standing Balance and Reactions Static Standing Balance Ability Fair Dynamic Standing Balance Ability Fair Device Used FWW M5 PT-IP Objective Assessments Start: 03/02/22 13:45 Freq: NEEDED Status: Active Protocol: Document 03/02/22 11:30 AB (Rec: 03/02/22 13:58 AB [id number]) Orientation Orientation/Cognition Level of Alertness Alert Orientation Name,Place,Situation Safety Awareness Decreased Safety Awareness Memory Description No Deficits Noted Gross Range of Motion Lower Extremity ROM Assessment Within Functional Limits Strength Lower Extremity Strength Hip 4-/5 Knee 4-/5 Coordination Assessment Gross Coordination Gross Coordination WNL Sensation Assessment Sensation Gross Sensation WNL Muscle Tone Muscle Tone WNL Yes M6 PT-IP Treatment Start: 03/02/22 13:45 Freq: NEEDED Status: Active Protocol: Document 03/02/22 11:30 AB (Rec: 03/02/22 13:58 AB [id number]) Physical Therapy Treatment Education Education Provided Safety M7 PT-IP Assessment and Plan Start: 03/02/22 13:45 Freq: NEEDED Status: Active Protocol: Document 03/02/22 11:30 AB (Rec: 03/02/22 13:58 AB [id number]) PT Summary Assessment and Plan Potential Rehabilitation Potential Fair Status of Condition at Evaluation Evolving Summary Impairments Pain,ROM,Strength,Balance, Coordination,Sensation,Tone, Cognition,Bed Mobility, Transfers,Gait,Activity Tolerance Assessment Summary pt requiring SBA to CGA with mobility using FWW. pt presents with decrease activity tolerance and only able to ambualte ~ 35 ft using FWW at this time. pt has 30 steps to get into the house and 13 steps to get to bedroom level and will not be able to safely complete at this time. will continue to assess progress. pt plans to go home and spouse to assist. Goals Bed Mobility Goal Independent Transfer Goal Independent,Front Wheeled Walker Gait Goal Independent,Front Wheel Walker Gait Distance 200 Other Goals up/down 30 platform steps without AD/FWW SBA up/down 13 steps B rails SBA Days to Meet Goals 10 Frequency of Treatment Frequency Of Treatment Once a Day Treatment Plan Physical Therapy Treatment Plan Bed Mobility Training,Transfer Training,Gait Training, Therapeutic Exercise,Balance Retraining,Discharge Planning, Hot or Cold Pack,Neuromuscular Re-ed,Coordination Retraining Precautions Other Precautions Influenza A droplet precaution Recommendations To Nursing Amount of Assist Needed 1 Person Assist Discharge Recommendations PT Discharge Recommendations Home with Assistance,Home Health Transportation Needs at Discharge Private Vehicle,Wheelchair/ Cabulance
--- NOTE | 2022-03-02 13:30 | CM.DPC ---
DCP Cont: Per MD, pt has been weened off of O2. Pt needing PT consult. Orders have been placed. Awaiting further plan. Taniya Shelton RN/DCP
--- NOTE | 2022-03-02 17:26 | DI.RAD.S_ITS ---
PROCEDURE: XR CHEST 1V INDICATIONS: assess PNA TECHNIQUE: One view of the chest was acquired. COMPARISON: [facility], CR, XR CHEST 1V, 02/28/2022, 11:34. FINDINGS: Surgical changes and devices: None. Lungs and pleura: Patchy bilateral pulmonary opacities are present slightly less prominent when compared to prior exam. Mediastinum: Mediastinal contours appear normal. Heart size is normal. Bones and chest wall: No suspicious bony lesions. Overlying soft tissues appear unremarkable. IMPRESSION: Slightly less prominent appearance of bilateral pulmonary opacities most consistent with pneumonia. Dictated by: Pinky Rosario M.D. on 03/02/2022 at 18:05 Approved by: Pinky Rosario M.D. on 03/02/2022 at 18:06
[2022-03-02] MEDS: TRAZODONE 50 MG TABLET PO (21:16)
[2022-03-02] MEDS: cefTRIAXone 1,000 MG in SODIUM CHLORIDE 0.9% 100 ML 200 MG IV (21:22)
[2022-03-02] MEDS: PRAVASTATIN 20 MG TABLET 80 MG PO (21:54)
[2022-03-03] VITALS (7 sets, daily range): BP systolic 106–110; BP diastolic 57–64; PULSE 61–78; RESP 16–22; TEMP 36.4–37.1; O2SAT 93–98
[2022-03-03] MEDS: IPRATROPIUM 0.5 MG/2.5 ML NEB INH ×4 (00:02→14:23)
[2022-03-03] MEDS: LORazepam 0.5 MG TABLET PO (01:51)
--- NOTE | 2022-03-03 02:30 | PC.NURSE ---
Addendum entered by Kaylene Gomez R.N. 03/03/22 03:37: 0335- Dr. Santiago notified of patient hallucination. No new orders. Will monitor. Addendum entered by Kaylene Gomez R.N. 03/03/22 03:18: 0315 Blood sugar is 131. Addendum entered by Kaylene Gomez R.N. 03/03/22 02:54: 0254- Patient removed his pulse ox. Patient picking in the air. When asked if he is seeing things he states there are handles and bugs. The bugs are on the wall. Patient does not appear fearful and is aware that he is in the hospital. Patient is able to state his birthday and he knows he has pneumonia and the flu. Will monitor. Original Note: 0200- Patient is awake and not resting. Patient medicated with Ativan per order. Placed on 02 at 2 liter cannula. Patient desaturates when he turns on his side. Cough is better after po cough medicine. Will monitor.
[2022-03-03 04:51] LABS: Add Manual Diff / Slide Review NO; Basophils Absolute Auto 0 /uL (0-100); Basophils Percent Auto 0.3 % (0-2); Eosinophils Absolute Auto 200 /uL (0-450); Eosinophils Percent Auto 2.2 % (2-4); Hematocrit 33.8 % (41-53); Hemoglobin 11.3 g/dL (13.5-17.5); Lymphocytes Absolute Auto 700 /uL (1100-4500); Lymphocytes Percent Auto 7.8 % (25-40); Mean Corpuscular HGB Conc 33.5 % (30-36); Mean Corpuscular Hemoglobin 29.5 PG (26-34); Mean Corpuscular Volume 88.1 fL (80-100); Monocytes Absolute Auto 800 /uL (0-900); Monocytes Percent Auto 8.9 % (3-14); Neutrophils Absolute Auto 7400 /uL (1500-7000); Neutrophils Percent Auto 80.8 % (50-75); Platelet Count 443 X10^3/uL (150-400); Red Blood Cell Count 3.84 X10^6/uL (4.5-5.9); White Blood Cell Count 9.2 X10^3/uL (4.5-11.0)
[2022-03-03 04:54] LABS: Magnesium 1.6 mg/dL (1.6-2.3)
[2022-03-03 04:57] LABS: BUN Creatinine Ratio 17.6 (6-22); Blood Urea Nitrogen 9 mg/dL (9-20); Calcium 7.9 mg/dL (8.4-10.2); Carbon Dioxide 25 mmol/L (22-32); Chloride 98 mmol/L (98-107); Estimated Glomerular Filt Rate > 60 mL/min (>60); Glucose 152 mg/dL (80-110); HEMOLYSIS < 15 (0-50); Potassium 3.6 mmol/L (3.4-5.1); Sodium 132 mmol/L (137-145)
--- NOTE | 2022-03-03 09:34 | PM.PN.1 ---
Exam Vital Signs (past 8 hours): - 03/03/22 03:58 03/03/22 04:00 03/03/22 04:00 Temperature 97.6 F Pulse Rate 74 72 Respiratory Rate 20 16 Blood Pressure 108/59 L Pulse Oximetry 98 96 Oxygen Delivery Method Nasal Cannula Oxygen Flow Rate 1 2 Fraction of Inspired Oxygen 24 03/03/22 09:06 03/03/22 09:19 Temperature 98.7 F Pulse Rate 75 78 Respiratory Rate 19 20 Blood Pressure 109/57 L Pulse Oximetry 96 93 Oxygen Delivery Method Room Air Oxygen Flow Rate 0 0 Fraction of Inspired Oxygen 21 Fraction of Inspired Oxygen 21 SaO2/FiO2 Ratio 442 Oxygen Delivery Method Room Air Oxygen Flow Rate 0 Narrative Exam Narrative: General: Patient is a felipe gentleman appears younger than stated age, looking less ill today HEENT: Normocephalic, atraumatic, extraocular muscles intact, oral pharynx is clear and mucous membranes are dry. Neck is supple and symmetric, trachea is midline, no adenopathy, no thyroid enlargement, nontender, no masses palpated. Positive bilateral JVD Chest: Improved bilateral coarse breath sounds Lungs: Auscultation of all lung godfrey are equally diminished, coarse, wet, audible gurgling/fluid/congestion, poor air exchange, coughing initiated with deep breathing or speaking, no expiratory wheezing, or rales. Cardio: Regular rate and rhythm without murmur, rubs, or gallops, no carotid bruit, no cardiac pulsations present. Abdomen: Soft mild 2/10 tenderness, which patient notes is improved from his baseline of chronic abdominal pain, negative for organomegaly, or masses. Bowel sounds are very hypoactive present in all 4 quadrants without guarding or rebound, no CVA tenderness. Musculoskeletal: Muscle strength and tone appear equal within normal limits, no deformity, crepitus, effusions, cyanosis, clubbing or edema present. Full range of motion intact radial pulses and pedal pulses are not well palpated, consistent with prior history of PD and bilateral fem pop stenosis. Skin: Diaphoretic, cool and intact without rashes, ulcerations or petechiae. Neuro: Alert and orientated x3, moves all extremities, sensation to touch intact, no gross deficits noted of cranial nerves. Psych: Patient has a well-kept appearance, appears generally unwell, appropriate affect, mental status attitude thought context and judgment are appropriate for age. Objective Labs Result Diagrams: 03/03/22 04:12 03/03/22 04:12 Labs: Laboratory Results - last 24 hr 03/03/22 03/03/22 03/03/22 04:12 04:12 04:12 WBC 9.2 RBC 3.84 L Hgb 11.3 L Hct 33.8 L MCV 88.1 MCH 29.5 MCHC 33.5 RDW 14.0 Plt Count 443 H Neut % (Auto) 80.8 H Lymph % (Auto) 7.8 L [place] % (Auto) 8.9 Eos % (Auto) 2.2 Baso % (Auto) 0.3 Neut # (Auto) 7400 H Lymph # (Auto) 700 L [place] # (Auto) 800 Eos # (Auto) 200 Baso # (Auto) 0 Sodium 132 L Potassium 3.6 Chloride 98 Carbon Dioxide 25 BUN 9 Creatinine 0.51 L Estimated GFR > 60 BUN/Creatinine Ratio 17.6 Glucose 152 H Calcium 7.9 L Magnesium 1.6 PFSH Medical History Acute dehydration Atrial flutter with rapid ventricular response Campylobacter enteritis Claudication in peripheral vascular disease Enteritis, enteropathogenic E. coli Exocrine pancreatic insufficiency Gastroenteritis GERD (gastroesophageal reflux disease) History of cardioversion (03/07/21) HTN (hypertension) Hyperlipidemia Insulin dependent diabetes mellitus with complications Narcolepsy Nausea vomiting and diarrhea Pancreatic endocrine tumor Pancreatitis Paroxysmal atrial fibrillation Peripheral vascular disease Psoriasis Sepsis Surgical History H/O exploratory laparotomy History of epididymectomy History of femoropopliteal bypass Hx of biopsy Family History Father Colon cancer Mother Narcolepsy Grandmother Narcolepsy Social History household members: significant other Smoking Status: Former smoker alcohol intake: former Assessment & Plan Assessment & Plan narrative: 1. Atrial fibrillation with RVR, acute on chronic, recurrent cardioversion, on chronic anticoagulation Plavix and Pradaxa, present on admission-resolved -patient was cardioverted in ED, then went back into RVR the morning of 02/27, converted to sinus on 02/28 with amio drip and increased metop tart -transitioned to po amio 400mg BID and metoprolol XL 100mg daily -continue Plavix and Pradaxa -continue tele -keep mag >2 and K >4 -echo as below 2. Acute respiratory failure with hypoxia secondary influenza a, pneumonia, acute, present on admission, resp failure improving -initial O2 saturations in the 80s with any movement or exertion on room air, tachypneic and tachycardic on admit -patient required 6 L O2 on nasal cannula for O2 saturation 95%, now on room air as of 02/27 -COVID negative, RSV negative, procalcitonin was 26.2 -positive influenza A-Tamiflu 60 mg b.i.d. ordered as we do not have 75 mg available. Hospitalized patient's are recommended to receive treatment even if symptoms are be on 48 hour window. -pneumonia CPAP vs aspiration-patient did report that he frequently aspirates gastric content secondary to his chronic pancreatic insufficiency -chest x-ray demonstrated patchy right mid lung airspace disease possible pneumonia -AP CT noted bilateral lower lobe pneumonia right greater than left with small parapneumonic pleural effusion-suggestive possible community-acquired pneumonia versus aspiration pneumonia. -blood cultures NGTD and sputum with only yeast likely contaminant -deescalate to rocephin, flagyl and doxy (avoiding azithro due to QTc prolongation with amio) -obtain repeat CXR 3. NSTEMI/myocardial injury, acute, present on admission -CK-2:3.24 CK-to RI 0.4 troponins 0.023, 0.026, 0.028 -continue Plavix and Pradaxa 4. mild DKA, secondary to insulin-dependent diabetes, acute on chronic, hyperlipidemia present on admission-resolved - sodium 36, potassium 2.7, chloride 96, creatinine 0.49 glucose 221- gap 18 on admission -patient's gap was closed with subcutaneous insulin and IV fluid bolus treatment in the ED department -continue patient's insulins, pravastatin, lisinopril -patient admitted under diabetic protocol -A1c 8% -recommend patient education and handouts on sick day management of diabetes. 5. Chronic heart failure, acute, present on admission -BNP 1520? -appears euvolemic/dry on exam -last echo 03/09/[address] Monte EF 45-50% -echo 02/27 with EF 50-55% with improved focal WMA's since prior 6. Hypertension, essential, chronic, present on admission -continue metoprolol 7. acute on chronic pancreatic insufficiency exacerbation, present on admission -continue Creon pancreatic enzymes prior to meals 8. Depression, chronic, present on admission -continue Cymbalta 9. Narcolepsy with cataplexy, chronic, present on admission -holding Ritalin Code status:Full Surrogate decision maker: November Little COVID PCR:Negatived COVID vaccination: Fully Vax DVT/VTE prophylaxis: Pradaxa/Plavix, SCDs only Disposition: Home in 1-2 more days. Time Spent With Patient Critical Care time: I spent a total of [] minutes of critical care time on this patient's care today; this time is exclusive of procedural time.
[2022-03-03] MEDS: METHYLPHENIDATE 5 MG TABLET 20 MG PO (10:44)
[2022-03-03] MEDS: metroNIDAZOLE 500 MG TABLET PO (10:45)
[2022-03-03] MEDS: CODEINE/GUAIFENESIN LIQUID 5ML UDC 5 ML PO ×2 (10:45→16:25)
[2022-03-03] MEDS: CLOPIDOGREL 75 MG TABLET PO (10:46)
[2022-03-03] MEDS: DOXYCYCLINE HYCLATE 100 MG TABLET PO (10:46)
[2022-03-03] MEDS: DABIGATRAN 75 MG CAPSULE 150 MG PO (10:47)
[2022-03-03] MEDS: AMIODARONE 200 MG TABLET 400 MG PO (10:47)
[2022-03-03] MEDS: METOPROLOL ER 50 MG TABLET 100 MG PO (10:47)
[2022-03-03] MEDS: lisinopriL 5 MG TABLET 2.5 MG PO (10:48)
[2022-03-03] MEDS: DULOXETINE 30 MG CAPSULE 60 MG PO (10:48)
[2022-03-03] MEDS: LIPASE PO (10:49)
[2022-03-03] MEDS: AMYLASE PO (10:49)
[2022-03-03] MEDS: PROTEASE PO (10:49)
[2022-03-03] MEDS: SODIUM CHLORIDE 0.9% FLUSH 10 ML IV (10:50)
[2022-03-03] MEDS: INSULIN LISPRO 100 UNIT/ML 3ML VIAL SUBCUT ×2 (11:00→13:54)
[2022-03-03] MEDS: MAGNESIUM SULFATE 2 GM/50 ML PIGGYBACK IV (11:01)
--- NOTE | 2022-03-03 12:35 | PT.IPTN ---
Current Diagnoses Unspecified atrial fibrillation (02/25/22) Unspecified atrial flutter (02/25/22) Influenza due to other identified influenza virus with other respiratory manifestations (02/25/22) Pneumonia, unspecified organism (02/25/22) Physical Therapy Treatment Note M2 PT-IP Current Condition Start: 03/02/22 13:45 Freq: NEEDED Status: Active Protocol: Document 03/03/22 12:21 LRN (Rec: 03/03/22 12:35 LRN [id number]) Physical Therapy Current Condition Current Condition Evaluation Date 03/03/22 Treatment Diagnosis A-fib; Influenza A; PNA, NSTEMI; difficulty in walking M3 PT-IP Subjective Start: 03/02/22 13:45 Freq: NEEDED Status: Active Protocol: Document 03/03/22 12:21 LRN (Rec: 03/03/22 12:35 LRN [id number]) Subjective Physical Therapy Visit Type Type Treatment Note Visit Start Time 10:45 Visit Stop Time 11:11 Total Visit Minutes 26 Physical Therapy Visit Comments Patient Comments Pt very receptive for getting up for PT. Will you come this afternoon? C/O fatigue after walking. M4 PT-IP Mobility and Gait Start: 03/02/22 13:45 Freq: NEEDED Status: Active Protocol: Document 03/03/22 12:21 LRN (Rec: 03/03/22 12:35 LRN [id number]) PT-Bed Mobility Assessment Rolling Level of Assist Independent Supine to Sit Supine to Sit Independent Scooting Scooting to Edge of Bed Independent PT-Transfer Assessment Sit to and From Stand Sit to and from Stand Independent Equipment Transfer Assistive Device Front Wheeled Walker Transfers Transfer Destination Chair Transfer Technique Walked to chair from bed Transfer Ability Level of Assist Independent,Standby Assistance Comments Mobility Comments Pt got out of bed independently and walked with SBA. Pt did not appear short of breath with exercise, but he felt fatigued after walking . Gait Assessment Gait Gait Assistance Required: Independent,Standby Assistance Distance (Feet) 30 Able to Maintain Weight Bearing Status Yes During Gait Assistive Devices Assistive Device Front Wheeled Walker Orthotic/Prosthetic Devices or Brace: No Gait Deviations General Gait Pattern Decreased Stride Length,Flexed Trunk Factors Limiting Gait Function Factors Limiting Gait Function Decreased Activity Tolerance, Decreased Strength,Poor Balance,Respiratory Distress M5 PT-IP Objective Assessments Start: 03/02/22 13:45 Freq: NEEDED Status: Active Protocol: Document 03/03/22 12:21 LRN (Rec: 03/03/22 12:35 LRN [id number]) Orientation Orientation/Cognition Level of Alertness Alert Orientation Name,Situation Language Function Ability No Deficits Noted Memory Description No Deficits Noted Comments Pt is aware to limit his activities due to fatigue. M6 PT-IP Treatment Start: 03/02/22 13:45 Freq: NEEDED Status: Active Protocol: Document 03/03/22 12:21 LRN (Rec: 03/03/22 12:35 LRN [id number]) Physical Therapy Treatment Other Treatments Other Treatment Performed Gait training and cuing for breathing with gait. M7 PT-IP Assessment and Plan Start: 03/02/22 13:45 Freq: NEEDED Status: Active Protocol: Document 03/03/22 12:21 LRN (Rec: 03/03/22 12:35 LRN [id number]) PT Summary Assessment and Plan Potential Rehabilitation Potential Good Status of Condition at Evaluation Evolving Summary Impairments Strength,Balance,Gait,Activity Tolerance Progress Towards Goals Slow Progress due to Medical Issues Goals Bed Mobility Goal Independent Transfer Goal Independent,Front Wheeled Walker Gait Goal Independent Gait Distance 200 Other Goals up/down 30 platform steps without AD/FWW SBA up/down 13 steps B rails SBA Days to Meet Goals 9 Frequency of Treatment Frequency Of Treatment Once a Day Treatment Plan Physical Therapy Treatment Plan Gait Training,Therapeutic Exercise,Balance Retraining, Discharge Planning,Hot or Cold Pack,Neuromuscular Re-ed, Coordination Retraining Recommendations To Nursing Amount of Assist Needed 1 Person Assist Discharge Recommendations PT Discharge Recommendations Home with Assistance,Home Health Other Discharge Recommendations Pt complete safety in gait and stair management with PT and good recall of HEP. Recommend outpatient services when patient medically safe for discharge. Equipment Needed for Home Before FWW if not safe without AD Discharge Transportation Needs at Discharge Private Vehicle,Wheelchair/ Cabulance
--- NOTE | 2022-03-03 13:09 | CM.DPC ---
Addendum entered by Taniya Shelton R.N. 03/03/22 13:32: Per MD, pt is medically stable for discharge. Spoke with [facility] and they are looking for referral. They can see patient beginning to middle of next week for his location. DCP to provide pt with contact information for [facility]. Pt discharging home via family POV. Taniya Shelton RN/VIOLETTAP Original Note: DCP Cont: Pt discussed in morning rounds. It was verbalized by MD to order home health. DCP to fax referral to [facility]. F2F done and orders placed. Will continue to monitor. Taniya Shelton RN/DCP
--- NOTE | 2022-03-03 18:02 | PC.NURSE ---
Discharge: Pt feels ready to d/c to home. DR. Jane made aware of hallucinations pt is having, but he is oriented when questioned. MD feels pt is safe enough still to go home, It should pass. PT did give patient the okay to go home, he is safe. He is not driving but having a friend pick him up. Dr. Jane gave dischage instructions. Pt given discharge packet and same reviewed. He knows he needs to make a sick day plan with his doctor. if the hallucinations worsen for some reason he needs to call his doctor or come back to the ED depending on severity. Home health was arranged as pt's is unable to help out much, she has a broken leg and is in a non weight bearing status. Pt had numerous questions which were answered. Pt d/c to home via auto with friend. After pt left the pharmacist from [facility] came up because pt had not picked up his meds. He will need his amiodarone tonight. The pharmacist will call the patient at home.
--- NOTE | 2022-03-03 18:09 | PM.DS.1 ---
History of Present Illness History of Present Illness Date Patient Seen: 03/03/22 Time Patient Seen: 00:20 Chief complaint: SOB,CHEST PAIN,FEVER Narrative: Jann Diehl?is a 66-year-old male with history of paroxysmal AFib on Pradaxa and Eliquis, chronic pancreatic insufficiency (typically controlled at home with pancreatic enzymes, oxycodone, Zofran and Phenergan), hypertension, PAD with HX (2005) of right lower extremity angioplasty with stent placement/removal & left angioplasty insulin-dependent diabetes, narcolepsy with cataplexy, hyperlipidemia, history(06/14) cholecystectomy presented today feeling generally unwell he states he is noted his heart rate has been fast on and off for the entire week, vomiting x7 days, with occasional bouts of diarrhea in first couple of days, but no BM x3-4days decreased oral intake, believes this to be initially a flare of his chronic pancreatic insufficiency s/s stated had attempted cardioversion at home per oral medications himself but was unsuccessful, tachycardia became more consistent and persistent this a.m. patient can since his AFib with RVR, endorses severe diaphoresis (ED had to change his sheets), SOB, productive cough, intersotal pain with deep breathing & cough, denies fever, chest pain but has fshort of breath.? He states he is had abdominal discomfort but at normal wiht a flare of his pancreatic insuf..? He states he has been vomiting for several days and has not had a bowel movement for at least 3 or 4 days.? He states he is having flatus or passing gas regularly.? Patient denies new swelling in his extremities.? He denies fevers but has felt chilled.? He is had nonproductive cough.? He states he does take his blood thinner regularly.? Patient notes he is had multiple cardioversions in the past without issue, at least 2 this year alone.? He states he is had a cardiac catheterization but it has been some time, he states he is never had any cardiac stents he denies ablation.? He denies CABG or other cardiac interventions.? Patient is allergic to sulfa/ iodine (anaphylaxis) he states for CT scans they usually use pretreatment with Benadryl Solu-Medrol, allergic to sulfa and can not take Lasix secondary to it tail of sulfa. Patient notes that he frequently vomits and aspirates secondary to his chronic pancreatitis insufficiency. Review patient's last echo 03/09/[address] Hui porter EF 45-50%, when discussing possible stress test patient's stated ?I will not do the nuclear med stress test I will however do the exercise treadmill test where I will drop ?. Patient was advised that we would not be doing exercise stress test. Patient developed AFib with RVR in ED and was successfully cardioverted, patient also came in with O2 saturations in the 80s with any movement or exertion on room air acute respiratory failure with hypoxia, patient's CBC was normal no left shift noted sodium 36, potassium 2.7, chloride 96, creatinine 0.49 glucose 221- gap 18, sofa: 1. PT 17.5 INR was normal at 1.5 calcium 8.0 magnesium was 1.5 patient's GFR was WNL, total creatinine kinase 799, CK-2:3.24 CK-to RI 0.4 troponins 0.023, 0.026, 0.028, procalcitonin was 26.2 BNP was 1520, COVID negative, RSV negative patient's chest x-ray demonstrated patchy right mid lung airspace disease possible pneumonia AP CT noted bilateral lower lobe pneumonia right greater than left with small parapneumonic pleural effusion-suggestive possible community-acquired pneumonia versus aspiration pneumonia. Patient admitted for atrial fibrillation with RVR, acute respiratory failure 6 L nasal cannula O2 saturation 95% with hypoxia secondary to positive influenza a and pneumonia, with hypokalemia, hypomagnesemia, mild DKA, acute new onset heart failure, in the setting of acute on chronic pancreatic insufficiency exacerbation. Discharge Providers Provider Date of admission: 02/25/22 19:14 Discharge Date: 03/03/22 Primary care physician: Eric Huang MD Consults: 02/26/22 05:16 Consult to Dietitian, Adult Urgent Comment: Reason For Exam: HF, BMI23.7 02/27/22 15:35 Consult to Tele-or first assist registered nurse Routine Comment: Consulting Provider: [facility] [employer] Reason for consultation: Photonics Engineering Technologist services 03/02/22 11:00 Consult to Physical Therapy Evaluate & Treat Comment: Physician Instructions: Evaluate and Treat 03/03/22 13:03 Consult to Home Health Routine Comment: Reason For Exam: Evaluate and Treat-RN, PT, Bath Aide Discharge provider: Narayan Jane DO Summary Hospital Course Discharge Diagnosis: 1. Atrial fibrillation with RVR, acute on chronic, recurrent cardioversion, on chronic anticoagulation Plavix and Pradaxa, present on admission-resolved -patient was cardioverted in ED, then went back into RVR the morning of 02/27, converted to sinus on 02/28 with amio drip and increased metop tart -transitioned to po amio 400mg BID then 200mg daily and metoprolol XL 100mg daily -continue Plavix and Pradaxa -continue tele -keep mag >2 and K >4 -echo as below 2. Acute respiratory failure with hypoxia secondary influenza a, pneumonia, acute, present on admission, resp failure improving -initial O2 saturations in the 80s with any movement or exertion on room air, tachypneic and tachycardic on admit -patient required 6 L O2 on nasal cannula for O2 saturation 95%, now on room air as of 02/27 -COVID negative, RSV negative, procalcitonin was 26.2 -positive influenza A-Tamiflu 60 mg b.i.d. ordered as we do not have 75 mg available. Hospitalized patient's are recommended to receive treatment even if symptoms are be on 48 hour window. -pneumonia CPAP vs aspiration-patient did report that he frequently aspirates gastric content secondary to his chronic pancreatic insufficiency -chest x-ray demonstrated patchy right mid lung airspace disease possible pneumonia -AP CT noted bilateral lower lobe pneumonia right greater than left with small parapneumonic pleural effusion-suggestive possible community-acquired pneumonia versus aspiration pneumonia. -blood cultures NGTD and sputum with only yeast likely contaminant -deescalate to rocephin, flagyl and doxy (avoiding azithro due to QTc prolongation with amio) -finished 7 days of abx 3. NSTEMI/myocardial injury, acute, present on admission -CK-2:3.24 CK-to RI 0.4 troponins 0.023, 0.026, 0.028 -continue Plavix and Pradaxa 4. mild DKA, secondary to insulin-dependent diabetes, acute on chronic, hyperlipidemia present on admission-resolved - sodium 36, potassium 2.7, chloride 96, creatinine 0.49 glucose 221- gap 18 on admission -patient's gap was closed with subcutaneous insulin and IV fluid bolus treatment in the ED department -continue patient's insulins, pravastatin, lisinopril -patient admitted under diabetic protocol -A1c 8% -recommend patient education and handouts on sick day management of diabetes. 5. Chronic heart failure, acute, present on admission -BNP 1520? -appears euvolemic/dry on exam -last echo 03/09/[address] Monte EF 45-50% -echo 02/27 with EF 50-55% with improved focal WMA's since prior 6. Hypertension, essential, chronic, present on admission -continue metoprolol 7. acute on chronic pancreatic insufficiency exacerbation, present on admission -continue Creon pancreatic enzymes prior to meals 8. Depression, chronic, present on admission -continue Cymbalta 9. Narcolepsy with cataplexy, chronic, present on admission -holding Ritalin Hospital Course: Admitted for Afib RVR and acute resp failure from the flu and possible bilateral PNA. Needed cardioversion x2 in the ED and able to return to sinus rhythm. Given IV abx and tamiflu and slowly improved. During admission went into rapid A-fib RVR and had hypotension with dilt drip so amio drip started. Home metoprolol increased as well. Able to convert to sinus rhythm and transition to po amio. He will f/u with outpatient promotions officer Dr. Feldman for ongoing management of his A-fib and possibly changing his amio to something without pulmonary toxicity. PT cleared him for home. Time Spent with Patient Time spent: Greater than 30 minutes Exam Vital Signs (past 8 hours): - 03/03/22 13:32 Temperature 98 F Pulse Rate 77 Respiratory Rate 17 Blood Pressure 110/62 Pulse Oximetry 95 Oxygen Flow Rate 0 Fraction of Inspired Oxygen 21 SaO2/FiO2 Ratio 442 Oxygen Delivery Method Room Air Oxygen Flow Rate 0 Narrative Exam Narrative: General: Patient is a felipe gentleman appears younger than stated age HEENT: Normocephalic, atraumatic, extraocular muscles intact, oral pharynx is clear and mucous membranes are dry. Neck is supple and symmetric, trachea is midline, no adenopathy, no thyroid enlargement, nontender, no masses palpated. Positive bilateral JVD Chest: Improved bilateral coarse breath sounds Lungs: Auscultation of all lung godfrey shows improving bilateral coarse breath sounds Cardio: Regular rate and rhythm without murmur, rubs, or gallops, no carotid bruit, no cardiac pulsations present. Abdomen: Soft mild 2/10 tenderness, which patient notes is improved from his baseline of chronic abdominal pain, negative for organomegaly, or masses. Bowel sounds are very hypoactive present in all 4 quadrants without guarding or rebound, no CVA tenderness. Musculoskeletal: Muscle strength and tone appear equal within normal limits, no deformity, crepitus, effusions, cyanosis, clubbing or edema present. Full range of motion intact radial pulses and pedal pulses are not well palpated, consistent with prior history of PD and bilateral fem pop stenosis. Skin: Diaphoretic, cool and intact without rashes, ulcerations or petechiae. Neuro: Alert and orientated x3, moves all extremities, sensation to touch intact, no gross deficits noted of cranial nerves. Psych: Patient has a well-kept appearance, appears generally unwell, appropriate affect, mental status attitude thought context and judgment are appropriate for age. Objective Labs Result Diagrams: 03/03/22 04:12 03/03/22 04:12 Labs: Laboratory Results - last 24 hr 03/03/22 03/03/22 03/03/22 04:12 04:12 04:12 WBC 9.2 RBC 3.84 L Hgb 11.3 L Hct 33.8 L MCV 88.1 MCH 29.5 MCHC 33.5 RDW 14.0 Plt Count 443 H Neut % (Auto) 80.8 H Lymph % (Auto) 7.8 L Estill % (Auto) 8.9 Eos % (Auto) 2.2 Baso % (Auto) 0.3 Neut # (Auto) 7400 H Lymph # (Auto) 700 L Estill # (Auto) 800 Eos # (Auto) 200 Baso # (Auto) 0 Sodium 132 L Potassium 3.6 Chloride 98 Carbon Dioxide 25 BUN 9 Creatinine 0.51 L Estimated GFR > 60 BUN/Creatinine Ratio 17.6 Glucose 152 H Calcium 7.9 L Magnesium 1.6 PFSH Medical History Acute dehydration Atrial flutter with rapid ventricular response Campylobacter enteritis Claudication in peripheral vascular disease Enteritis, enteropathogenic E. coli Exocrine pancreatic insufficiency Gastroenteritis GERD (gastroesophageal reflux disease) History of cardioversion (03/07/21) HTN (hypertension) Hyperlipidemia Insulin dependent diabetes mellitus with complications Narcolepsy Nausea vomiting and diarrhea Pancreatic endocrine tumor Pancreatitis Paroxysmal atrial fibrillation Peripheral vascular disease Psoriasis Sepsis Surgical History H/O exploratory laparotomy History of epididymectomy History of femoropopliteal bypass Hx of biopsy Family History Father Colon cancer Mother Narcolepsy Grandmother Narcolepsy Social History household members: significant other Smoking Status: Former smoker alcohol intake: former Discharge Plan Discharge Plan Patient Disposition: Home Health Service Provider Discharge Comment: You were admitted for PNA and flu with rapid A-fib RVR. We gave you antibiotics and flu treatments. We also were able to control your A-fib with amiodarone and higher doses of metoprolol. You improved slowly and can now go home with home health helping you get stronger. Please follow-up with your PCP and cardiology to discuss Nursing Discharge Comment: Notify your doctor or return to the emergency department if hallucinations get worse. Discharge orders & Medications Prescriptions: New amiodarone 200 mg Tablet 200 mg PO DAILY Qty: 90 0RF metoprolol succinate [Toprol XL] 100 mg tablet extended release 24 hr 100 mg PO DAILY Qty: 90 0RF trazodone 50 mg Tablet 50 mg PO BEDTIME PRN (Reason: insomnia) Qty: 30 0RF Rx Instructions: can take 1/2 tab (25mg) if 50 is too strong Continued clopidogrel [Plavix] 75 mg Tablet 75 mg PO QAM Qty: 0 insulin lispro [Humalog U-100 Insulin] 100 unit/mL solution See Rx Instructions SUBCUT USEASDIRECTD Rx Instructions: 2-4 sliding scale SUBCUT use as directed; gentamicin 0.3 % drops 1 drp EYE-BOTH TID PRN (Reason: Blepharitis) Qty: 5 12RF Creon 24,000-76,000 -120,000 unit capsule,delayed release(DR/EC) 1 cap PO QID Qty: 120 12RF Rx Instructions: administer with meals and/or snacks prn sliding scale. 1 capsule for every 600 calories promethazine 25 mg suppository 25 mg ND Q6H PRN (Reason: Nausea) duloxetine [Cymbalta] 60 mg capsule,delayed release(DR/EC) 60 mg PO QAM Combivent Respimat 20-100 mcg/actuation mist 1 puff inhalation Q4H PRN (Reason: wheezing) acetaminophen [Pain Relief (acetaminophen)] 325 MG tablet 500 mg PO Q4HP PRN (Reason: Pain, Mild) dabigatran etexilate [Pradaxa] 150 mg Capsule 150 mg PO BID pravastatin 80 mg Tablet 80 mg PO BEDTIME Qty: 0 Rx Instructions: 1 tablet daily HS ondansetron 8 mg tablet,disintegrating 4 mg PO TID PRN (Reason: nausea/vomiting) lisinopril 2.5 mg Tablet 2.5 mg PO QAM metoprolol tartrate 25 mg Tablet 12.5 mg PO BID Qty: 60 0RF diphenhydramine HCl 12.5 mg/5 mL elixir 12.5 mg PO Q6H PRN (Reason: nausea and vomiting) Qty: 500 0RF oxycodone 10 mg tablet 5 mg PO Q4H PRN (Reason: Pain, Severe (7-10)) azelastine inhaler 2 spray intranasal BID hydrocodone-acetaminophen 5-325 mg tablet 1 tab PO Q8H PRN (Reason: pain) Qty: 10 0RF No Action methylphenidate HCl 20 mg tablet 20 mg PO TID Qty: 90 0RF Follow up/Referrals: Eric Huang MD [Primary Care Provider] - 2 Weeks (*Office is to call patient and set up appointment. Please follow up with clinic to schedule appt. [phone]) Visit Report/Discharge Packet Instructions: DI for Heart Attack, DI for Heart Failure, DI for Pneumonia -- Adult, DI for Cardioversion, DI for Atrial Fibrillation, DI for Diabetes Type 2, DI for Influenza -- Adult, Taking Care of Your Diabetes When You Are Sick, How to Prevent Falls Discharge Data Primary Care Provider: Eric Huang
--- NOTE | 2022-03-05 12:43 | CM.DPC ---
DCP Cont: Romina from [facility] called, this DC Strap Making Machine Operator had faxed her the DC Summary yesterday, patient discharged Sunday. Romina indicated, she had no orders or face to face. She also indicated, they were not notified that patient was discharging. It is documented by DC Strap Making Machine Operator, Taniya, that she had contacted [facility] upon discharge, and faxed over information. This DC associate media planner pulled up scanned face to face and orders, and will fax over to [facility]. Catalina Pollack RN/Senior Quality Control Technician
== END 2022-03-03 16:30 | disposition home health service (06) | DRG 280 ==
LOC: ED 19:13 → AC 19:15 → ICU 02-26 08:15
PROVIDERS: Nurse Practitioner Critical Care Medicine; Nurse Practitioner Family; Student in an Organized Health Care Education/Training Program; Admitting Provider Internal Medicine; Emergency Provider Emergency Medicine; Family Provider Nurse Practitioner Family; PCP Family Medicine; Referring Provider Emergency Medicine; Visit Provider Internal Medicine
DX: I48.20 Chronic atrial fibrillation, unspecified (principal); E11.10 Type 2 diabetes mellitus with ketoacidosis without coma; I21.4 Non-ST elevation (NSTEMI) myocardial infarction; J18.9 Pneumonia, unspecified organism; J96.01 Acute respiratory failure with hypoxia; J10.1 Influenza due to other identified influenza virus with other respiratory manifestations; E83.42 Hypomagnesemia; E78.5 Hyperlipidemia, unspecified; I11.0 Hypertensive heart disease with heart failure; I50.9 Heart failure, unspecified; K86.89 Other specified diseases of pancreas; F32.A Depression, unspecified; H01.009 Unspecified blepharitis unspecified eye, unspecified eyelid; Z79.01 Long term (current) use of anticoagulants; Z79.4 Long term (current) use of insulin; Z20.822 Contact with and (suspected) exposure to COVID-19; Z87.891 Personal history of nicotine dependence
CPT/HCPCS: 0241U; 36415; 36592; 36600; 71045; 74176; 80048; 80053; 82550; 82553; 82805; 82962; 83036; 83605; 83690; 83735; 83880; 84145; 84443; 84484; 85007; 85025; 85610; 85651; 85730; 86140; 87040; 87070; 87205; 87493; 87797; 92960; 93005; 93010; 93306; 94640; 94760; 94799; 96365; 96366; 96367; 96368; 96375; 97116; 97162; 97530; 99152; 99233; 99285; 99291; J0282; J0692; J0696; J1160; J1815; J1885; J1940; J1956; J2405; J2543; J2704; J3475

== ENCOUNTER 2022-04-10 18:05 | Emergency (ER) | payer OTHER, SELFPAY ==
[2022-02-25 20:37] VITALS: BMI 25.0
[2022-04-10] VITALS (23 sets, daily range): BP systolic 94–162; BP diastolic 54–76; PULSE 55–77; RESP 15–27; TEMP 36.6; O2SAT 96–99; BMI 23.6
--- NOTE | 2022-04-10 18:20 | DI.RAD.S_ITS ---
PROCEDURE: XR CHEST 1V INDICATIONS: dyspnea TECHNIQUE: One view of the chest was acquired. COMPARISON: [facility], CR, XR CHEST 1V, 03/02/2022, 17:43. [facility], CR, XR CHEST 1V, 02/28/2022, 11:34. [facility], CR, XR CHEST 1 VIEW, 03/23/2022, 21:11. FINDINGS: Surgical changes and devices: None. Lungs and pleura: Low lung volumes. No dense consolidation or pleural effusion. Mediastinum: Mediastinal contours appear normal. Heart size is normal. Bones and chest wall: No suspicious bony lesions. Overlying soft tissues appear unremarkable. IMPRESSION: Low lung volumes. No acute radiographic abnormality. Dictated by: Jef Chávez M.D. on 04/10/2022 at 18:42 Approved by: Jef Chávez M.D. on 04/10/2022 at 18:43
[2022-04-10 18:35] LABS: Add Manual Diff / Slide Review NO; Basophils Absolute Auto 100 /uL (0-100); Basophils Percent Auto 1.4 % (0-2); Eosinophils Absolute Auto 400 /uL (0-450); Hematocrit 40.5 % (41-53); Hemoglobin 13.7 g/dL (13.5-17.5); Lymphocytes Absolute Auto 1600 /uL (1100-4500); Lymphocytes Percent Auto 21.4 % (25-40); Mean Corpuscular HGB Conc 33.9 % (30-36); Mean Corpuscular Hemoglobin 29.6 PG (26-34); Mean Corpuscular Volume 87.6 fL (80-100); Monocytes Absolute Auto 600 /uL (0-900); Monocytes Percent Auto 8.5 % (3-14); Neutrophils Absolute Auto 4600 /uL (1500-7000); Neutrophils Percent Auto 63.7 % (50-75); Platelet Count 319 X10^3/uL (150-400); Red Blood Cell Count 4.62 X10^6/uL (4.5-5.9); Red Cell Distribution Width 14.2 % (11.6-14.8); White Blood Cell Count 7.3 X10^3/uL (4.5-11.0)
[2022-04-10 18:44] LABS: D Dimer 251 ng/ml (<500)
[2022-04-10 18:47] LABS: Alanine Aminotransferase 30 IU/L (<50); Alkaline Phosphatase 105 U/L (38-126); Aspartate Aminotransferase 37 IU/L (17-59); BUN Creatinine Ratio 18.5 (6-22); Bilirubin Total 0.5 mg/dL (0.2-1.3); Blood Urea Nitrogen 12 mg/dL (9-20); Calcium 9.2 mg/dL (8.4-10.2); Carbon Dioxide 27 mmol/L (22-32); Chloride 99 mmol/L (98-107); Estimated Glomerular Filt Rate > 60 mL/min (>60); Glucose 96 mg/dL (80-110); Lipase 95 U/L (23-300); Magnesium 1.7 mg/dL (1.6-2.3); Potassium 4.2 mmol/L (3.4-5.1); Sodium 139 mmol/L (137-145); Total Protein 7.8 g/dL (6.3-8.2)
[2022-04-10 18:48] LABS: Lactate (Lactic Acid) 1.8 mmol/L (0.7-2.1)
[2022-04-10 18:59] LABS: NT-proBNP (BNP-Adult 18+) 122 pg/mL (<125); Troponin I < 0.012 ng/mL (0.01-0.034)
[2022-04-10 19:04] LABS: Procalcitonin 33.1 ng/mL (<0.5)
--- NOTE | 2022-04-10 19:38 | ED_ITS ---
HPI - Chest Pain General Chief Complaint: Chest Pain Stated Complaint: chest pain last night, coughing Time Seen by Provider: 04/10/22 18:18 Mode of arrival: Family Vehicle History of Present Illness HPI narrative: 67-year-old gentleman with a history of paroxysmal atrial fibrillation, pancreatic insufficiency, vascular disease with right lower extremity angiopl asty, insulin-dependent diabetes, hyperlipidemia, hypertension admitted to [facility] February 25 through with acute respiratory failure secondary to influenza a, bilateral lower lobe pneumonia right greater than left with parapneumonic pleural effusion, NSTEMI, DKA with electrolyte abnormalities, chronic heart failure. Was admitted at [facility] from March 06 through March 08 for treatment of his pneumonia and discharged with Augmentin and increased metoprolol. Seen again in the emergency department at [facility] on March 23 with similar symptoms and workup was minimally abnormal patient was eventually discharged home after fluids and antie metics with a diagnosis of probable chronic pancreatitis. He presents today saying he is having recurrent substernal chest pain since mid afternoon, completely drenching sweats, he is pale but not complaining of significant dyspnea. Notes his usual 3/10 chronic abdominal pain that does not seem ch anged. Notes his usual amount of diarrhea that does not seem particularly changed. He has not had any recurrent episodes of atrial fibrillation of which he is aware. He notes he is now producing greenish sputum that is new. Related Data Home Medications Medication Instructions Recorded Confirmed clopidogrel 75 mg tablet (Plavix) 75 mg PO QAM ##0 04/15/08 02/25/22 acetaminophen 325 mg tablet (Pain 500 mg PO Q4HP PRN Pain, Mild 09/25/17 02/25/22 Relief (acetaminophen)) dabigatran etexilate 150 mg 150 mg PO BID 03/24/18 02/25/22 capsule (Pradaxa) pravastatin 80 mg tablet 80 mg PO BEDTIME ##0 02/13/19 02/25/22 lisinopril 2.5 mg tablet 2.5 mg PO QAM blood pressure 04/28/19 02/25/22 insulin lispro 100 unit/mL See Rx Instructions SUBCUT 03/15/20 02/25/22 subcutaneous solution (Humalog USEASDIRECTD U-100 Insulin) promethazine 25 mg rectal 25 mg MO Q6H PRN Nausea 06/17/20 02/25/22 suppository azelastine 2 spray intranasal BID 05/30/21 02/25/22 oxycodone 10 mg tablet 5 mg PO Q4H PRN Pain, Severe (7-10) 05/30/21 02/25/22 duloxetine 60 mg capsule,delayed 60 mg PO QAM 11/01/21 02/25/22 release (Cymbalta) ipratropium 20 mcg-albuterol 100 1 puff inhalation Q4H PRN wheezing 11/01/21 02/25/22 mcg/actuation mist for inhalation (Combivent Respimat) ondansetron 8 mg disintegrating 4 mg PO TID PRN nausea/vomiting 02/25/22 02/25/22 tablet Previous Rx's Medication Instructions Recorded gentamicin 0.3 % eye drops 1 drp EYE-BOTH TID PRN Blepharitis 03/15/20 #5 mL hagajf-[id number] 1 cap PO QID #120 caps 03/15/20 24,000-76,000-120,000 unit capsule,delayed rel (Creon) diphenhydramine HCl 12.5 mg/5 mL 12.5 mg (5 mL) PO Q6H PRN nausea 03/15/21 oral elixir and vomiting #500 mL metoprolol tartrate 25 mg tablet 12.5 mg PO BID #60 tabs 03/15/21 hydrocodone 5 mg-acetaminophen 325 1 tab PO Q8H PRN pain #10 tabs 05/30/21 mg tablet amiodarone 200 mg tablet 200 mg PO DAILY #90 tabs 03/03/22 metoprolol succinate 100 mg 100 mg PO DAILY #90 tabs 03/03/22 tablet,extended release 24 hr (Toprol XL) trazodone 50 mg tablet 50 mg PO BEDTIME PRN insomnia #30 03/03/22 tabs methylphenidate HCl 20 mg tablet 20 mg PO TID #90 ea 03/23/22 oxycodone-acetaminophen 5 mg-325 1 tab PO Q6H PRN pain #14 tabs 04/10/22 mg tablet Allergies Allergy/AdvReac Type Severity Reaction Status Date / Time Iodine and Iodide Containing Allergy Severe Anaphylaxis Verified 04/10/22 18:24 Produc [IODINE AND IODIDE CONTAINING PRODUC] Sulfa (Sulfonamide Allergy Severe Anaphylaxis Verified 04/10/22 18:24 Antibiotics) [SULFA (SULFONAMIDE ANTIBIOTICS)] gabapentin AdvReac Intermediate Dizziness Verified 04/10/22 18:24 [id number] Reductase AdvReac Intermediate Verified 04/10/22 18:24 Inhibitor metformin AdvReac Mild Verified 04/10/22 18:24 Review of Systems Review of Systems Narrative: Remainder of complete review of systems is otherwise unremarkable except for that included in the HPI. Patient History Medical History Acute dehydration Atrial flutter with rapid ventricular response Campylobacter enteritis Claudication in peripheral vascular disease Enteritis, enteropathogenic E. coli Exocrine pancreatic insufficiency Gastroenteritis GERD (gastroesophageal reflux disease) History of cardioversion (03/07/21) HTN (hypertension) Hyperlipidemia Insulin dependent diabetes mellitus with complications Narcolepsy Nausea vomiting and diarrhea Pancreatic endocrine tumor Pancreatitis Paroxysmal atrial fibrillation Peripheral vascular disease Psoriasis Sepsis Surgical History H/O exploratory laparotomy History of epididymectomy History of femoropopliteal bypass Hx of biopsy Family History Father Colon cancer Mother Narcolepsy Grandmother Narcolepsy Social History household members: significant other Smoking Status: Former smoker alcohol intake: former Smoking Status: Former smoker alcohol intake frequency: 0-2 drinks per day Substance Use Type: marijuana Exam Initial Vital Signs Initial Vital Signs: Vital Signs Pulse Rate 76 04/10/22 18:19 Respiratory Rate 27 H 04/10/22 18:19 Pulse Oximetry 98 04/10/22 18:19 General: Chronically ill-appearing, pale, very white lips and completely drenched in sweat with soaking wet gown and continued profuse diaphoresis. Able to give a complete and coherent history. Well-nourished well-developed HEENT: Moist mucous membranes, normal sclera with reactive pupils, Neck: No JVD, supple Respiratory: Lungs are clear to auscultation, no wheezing no rales no rhonchi. Full and symmetrical air movement Cardiac: Regular rate and rhythm no murmurs no bruits Abdomen: Soft, mild left upper quadrant tenderness without rebound or guarding, good bowel tones, no flank pain Skin: Pale an impressively diaphoretic, no rashes Neurologic: Globally weak, Grossly neurologically intact with no obvious as ymmetries or abnormalities Extremities: No trauma, well perfused Psych: Cooperative, appropriate insight and affect Course Orders Ordered: ED Orders 04/10/22 18:20 XR chest 1V Stat Complete Blood Count AUTO DIFF Stat Comprehensive Metabolic Panel Stat D Dimer Stat Lactate (Lactic Acid) Stat Lipase Stat Magnesium Stat NT-proBNP (BNP-Adult 18+) Stat Procalcitonin Stat Troponin I Stat Urinalysis and Microscopic Stat 04/10/22 18:21 EKG-12 Lead Stat 04/10/22 18:30 TSH [Thyroid Stimulating Hormone] Stat 04/10/22 19:58 Blood Culture Stat 04/10/22 20:04 CT chest abd pel w con Stat 04/10/22 20:35 Respiratory Panel (Film Array) Stat Discontinued Medications Diphenhydramine HCl (Diphenhydramine 50 Mg/Ml Vial) 50 mg IV NOW ONE Stop: 04/10/22 20:17 Last Admin: 04/10/22 20:28 Dose: 50 mg Documented By: AT Dextrose (D10w) 1,000 mls @ 500 mls/hr IV NOW ONE Stop: 04/10/22 22:16 Last Admin: 04/10/22 20:27 Dose: 500 mls/hr Documented By: AT Methylprednisolone (Methylprednisolone 125 Mg/2 Ml Vial) 125 mg IV NOW ONE Stop: 04/10/22 20:17 Last Admin: 04/10/22 20:28 Dose: 125 mg Documented By: AT Oxycodone/Acetaminophen (Oxycodone/Acetaminophen 5/325 Tablet) 1 tab PO NOW ONE Stop: 04/10/22 23:32 Oxycodone/Acetaminophen (Oxycodone/Apap 5/325 Prepack) 1 bottle MISC SEEINSTR ONE Stop: 04/10/22 23:32 Vital Signs Vital signs: Vital Signs - 8 hr 04/10/22 18:21 04/10/22 18:19 04/10/22 18:30 Temperature 98 F Pulse Rate 77 76 Respiratory Rate 18 27 H Blood Pressure 127/65 107/58 L Pulse Oximetry 97 98 Oxygen Delivery Method Room Air 04/10/22 18:30 04/10/22 19:00 04/10/22 19:00 Temperature Pulse Rate 75 68 Respiratory Rate 25 H 22 Blood Pressure 148/75 H Pulse Oximetry 99 97 Oxygen Delivery Method 04/10/22 19:30 04/10/22 19:30 04/10/22 19:55 Temperature Pulse Rate 62 Respiratory Rate 25 H Blood Pressure 146/70 H 149/76 H Pulse Oximetry 98 Oxygen Delivery Method 04/10/22 19:55 04/10/22 20:00 04/10/22 20:00 Temperature Pulse Rate 61 60 Respiratory Rate 20 23 Blood Pressure 162/72 H Pulse Oximetry 98 97 Oxygen Delivery Method Room Air 04/10/22 20:30 04/10/22 20:31 04/10/22 20:31 Temperature Pulse Rate 55 L 56 L Respiratory Rate 23 20 Blood Pressure 99/54 L Pulse Oximetry 97 96 Oxygen Delivery Method 04/10/22 20:45 04/10/22 20:45 04/10/22 21:00 Temperature Pulse Rate 57 L Respiratory Rate 20 Blood Pressure 101/59 L 111/61 Pulse Oximetry 98 Oxygen Delivery Method Room Air 04/10/22 21:00 04/10/22 21:30 04/10/22 21:31 Temperature Pulse Rate 58 L 60 Respiratory Rate 17 18 Blood Pressure 119/61 Pulse Oximetry 98 97 Oxygen Delivery Method Room Air 04/10/22 21:31 04/10/22 21:45 04/10/22 21:45 Temperature Pulse Rate 60 58 L Respiratory Rate 18 16 Blood Pressure 94/55 L Pulse Oximetry 99 97 Oxygen Delivery Method 04/10/22 22:00 04/10/22 22:02 04/10/22 22:02 Temperature Pulse Rate 58 L 58 L Respiratory Rate 15 17 Blood Pressure 99/54 L Pulse Oximetry 96 97 Oxygen Delivery Method Room Air MDM - Chest Pain Lab Data Result diagrams: 04/10/22 18:20 04/10/22 18:20 Labs: Lab Results 04/10/22 04/10/22 04/10/22 Range/Units 18:20 18:20 18:20 WBC 7.3 (4.5-11.0) X10^3/uL RBC 4.62 (4.5-5.9) X10^6/uL Hgb 13.7 (13.5-17.5) g/dL Hct 40.5 L (41-53) % MCV 87.6 (80-100) fL MCH 29.6 (26-34) PG MCHC 33.9 (30-36) % RDW 14.2 (11.6-14.8) % Plt Count 319 (150-400) X10^3/uL Neut % (Auto) 63.7 (50-75) % Lymph % (Auto) 21.4 L (25-40) % [place] % (Auto) 8.5 (3-14) % Eos % (Auto) 5.0 H (2-4) % Baso % (Auto) 1.4 (0-2) % Neut # (Auto) 4600 (9892-5285) /uL Lymph # (Auto) 1600 (8793-1307) /uL [place] # (Auto) 600 (0-900) /uL Eos # (Auto) 400 (0-450) /uL Baso # (Auto) 100 (0-100) /uL D-Dimer 251 (<500) ng/ml Sodium 139 (137-145) mmol/L Potassium 4.2 (3.4-5.1) mmol/L Chloride 99 (98-107) mmol/L Carbon Dioxide 27 (22-32) mmol/L BUN 12 (9-20) mg/dL Creatinine 0.65 L (0.66-1.25) mg/dL Estimated GFR > 60 (>60) mL/min BUN/Creatinine Ratio 18.5 (6-22) Glucose 96 (80-110) mg/dL Lactate (0.7-2.1) mmol/L Calcium 9.2 (8.4-10.2) mg/dL Magnesium 1.7 (1.6-2.3) mg/dL Total Bilirubin 0.5 (0.2-1.3) mg/dL AST 37 (17-59) IU/L ALT 30 (<50) IU/L Alkaline Phosphatase 105 (38-126) U/L Troponin I < 0.012 (0.01-0.034) ng/mL NT-Pro-B Natriuret Pep 122 (<125) pg/mL Total Protein 7.8 (6.3-8.2) g/dL Lipase 95 (23-300) U/L Procalcitonin 33.1 H (<0.5) ng/mL TSH (0.47-4.68) uIU/mL Chlamy pneumoniae PCR (Not Detect) Adenovirus (PCR) (Not Detect) B. pertussis DNA (PCR) (Not Detecte) B.parapertussis DNA PCR (Not Detecte) Coronavirus OC43 (PCR) (Not Detect) Coronavirus HKU1 (PCR) (Not Detect) Coronavirus 229E (PCR) (Not Detect) SARS-CoV-2 (PCR) (Not Detecte) Coronavirus NL63 (PCR) (Not Detect) Human Metapneumovir PCR (Not Detect) Influenza Type A (PCR) (Not Detect) Influenza Type B (PCR) (Not Detect) M. pneumoniae (PCR) (Not Detect) Parainfluenza 1 (PCR) (Not Detect) Parainfluenza 2 (PCR) (Not Detect) Parainfluenza 3 (PCR) (Not Detect) Parainfluenza 4 (PCR) (Not Detect) RSV (PCR) (Not Detect) Entero/Rhino (PCR) (Not Detect) 04/10/22 04/10/22 04/10/22 Range/Units 18:20 18:30 20:35 WBC (4.5-11.0) X10^3/uL RBC (4.5-5.9) X10^6/uL Hgb (13.5-17.5) g/dL Hct (41-53) % MCV (80-100) fL MCH (26-34) PG MCHC (30-36) % RDW (11.6-14.8) % Plt Count (150-400) X10^3/uL Neut % (Auto) (50-75) % Lymph % (Auto) (25-40) % [place] % (Auto) (3-14) % Eos % (Auto) (2-4) % Baso % (Auto) (0-2) % Neut # (Auto) (7910-9249) /uL Lymph # (Auto) (5777-1104) /uL [place] # (Auto) (0-900) /uL Eos # (Auto) (0-450) /uL Baso # (Auto) (0-100) /uL D-Dimer (<500) ng/ml Sodium (137-145) mmol/L Potassium (3.4-5.1) mmol/L Chloride (98-107) mmol/L Carbon Dioxide (22-32) mmol/L BUN (9-20) mg/dL Creatinine (0.66-1.25) mg/dL Estimated GFR (>60) mL/min BUN/Creatinine Ratio (6-22) Glucose (80-110) mg/dL Lactate 1.8 (0.7-2.1) mmol/L Calcium (8.4-10.2) mg/dL Magnesium (1.6-2.3) mg/dL Total Bilirubin (0.2-1.3) mg/dL AST (17-59) IU/L ALT (<50) IU/L Alkaline Phosphatase (38-126) U/L Troponin I (0.01-0.034) ng/mL NT-Pro-B Natriuret Pep (<125) pg/mL Total Protein (6.3-8.2) g/dL Lipase (23-300) U/L Procalcitonin (<0.5) ng/mL TSH 3.84 (0.47-4.68) uIU/mL Chlamy pneumoniae PCR Not detected (Not Detect) Adenovirus (PCR) Not detected (Not Detect) B. pertussis DNA (PCR) Not detected (Not Detecte) B.parapertussis DNA PCR Not detected (Not Detecte) Coronavirus OC43 (PCR) Not detected (Not Detect) Coronavirus HKU1 (PCR) Not detected (Not Detect) Coronavirus 229E (PCR) Not detected (Not Detect) SARS-CoV-2 (PCR) Not detected (Not Detecte) Coronavirus NL63 (PCR) Not detected (Not Detect) Human Metapneumovir PCR Not detected (Not Detect) Influenza Type A (PCR) Not detected (Not Detect) Influenza Type B (PCR) Not detected (Not Detect) M. pneumoniae (PCR) Not detected (Not Detect) Parainfluenza 1 (PCR) Not detected (Not Detect) Parainfluenza 2 (PCR) Not detected (Not Detect) Parainfluenza 3 (PCR) Not detected (Not Detect) Parainfluenza 4 (PCR) Not detected (Not Detect) RSV (PCR) Not detected (Not Detect) Entero/Rhino (PCR) Not detected (Not Detect) Point of Care Testing Glucose POC [address] chest abd pelvis: Radiologist's Impression: FINDINGS:? Image quality:? Excellent.? ? CHEST:? Lower Neck: No lymphadenopathy by size criteria. Thyroid:? Visualized thyroid demonstrates no discrete nodules. Axillae: No lymphadenopathy by size criteria. Chest Wall:? Unremarkable.? ? Lungs and Airways:? There are clustered small indistinct ground-glass nodules within the right lung predominately within the right upper lobe.? There is mild dependent atelectasis bilaterally.? No acute consolidation.? The trachea and central ai rways are patent. Pleura: No pneumothorax or pleural effusions.? ? Heart: Heart size is normal.? No pericardial effusion. Thoracic Vessels: The aorta and pulmonary arteries are normal in size.? Mediastinum and Moon: No lymphadenopathy by size criteria. Esophagus: No wall thickening.? There is a small hiatal hernia. ? ABDOMEN: Liver:? No mass lesion. Gallbladder:? Surgically absent. Biliary ducts:? No biliary ductal dilatation.? ? Pancreas:? No peripancreatic fat stranding or fluid collections.? No pancreatic calcifications.? No discrete pancreatic mass or motion artifact. Spleen:? Normal in size.? ? Adrenal Glands:? No adrenal nodules.? ? Kidneys and Ureters:? No hydronephrosis.? ? ? Stomach and Bowel:? Stomach, small bowel loops, and colon are normal in caliber and wall thickness.? The appendix is normal in appearance.? There is colonic diverticulosis without acute diverticulitis.? Peritoneum:? No abnormal intraperitoneal fluid.? No free air.? ? Ventral Wall: ? No hernia.? Abdominal Nodes:? No retroperitoneal or mesenteric adenopathy by size criteria.? Vessels:? Aorta and inferior vena cava are normal in size.? ? PELVIS: Pelvic Organs:? Unremarkable.? ? Bladder:? Unremarkable.? ? Pelvic Nodes: No enlarged lymph nodes.? Miscellaneous: No inguinal hernias are seen. ? ? ? Bones:? Visualized osseous structures demonstrate no suspicious focal lesions. IMPRESSION:? ? 1.? Clustered small indistinct ground-glass nodules throughout the right lung with a right upper lobe predominance.? The findings likely represent atypical pneumonia.? The differential includes an inflammatory process such as hypersensitivity pneumonitis. ? 2.? No CT evidence of acute pancreatitis. ? 3.? Colonic diverticulosis. ? Dictated by: Sj Rankin M.D. on 04/10/2022 at 22:41? ECG Data Interpretation: Sinus rhythm at a rate of 74 Normal intervals, normal axis No acute ischemic changes MDM Narrative Medical decision making narrative: CC: Central chest pain since early this afternoon profuse diaphoresis. Recurrent complaints with uncertain prognosis and potential for life-threatening consequences Complicating co-morbidities: Paroxysmal atrial fibrillation, recent influenza a infection along with pneumonia, diabetes, anticoagulation and chronic pancreatitis Corroborating data: Data collected from: patient, Medical records reviewed: Recent hospitalization from [facility], medical records from [facility] including hospitalization at the end of February, and emergency room visit March 23 Differential considered: Acute coronary syndrome, infectious etiology - pneumonia, parapneumonic effusion, septic emboli, intra-abdominal infection. Do not suspect meningitis at this time given lack of headache or meningismus signs, hypoglycemia Exam documented above, pertinent findings include: Pale, acutely ill-appearing with dramatic diaphoresis but remainder of exam is relatively benign Lab Test results independently reviewed as above. Pertinent findings: Procalcitonin significantly elevated at 33 suggesting infection or inflammatory etiology -this has been chronically elevated CBC is unremarkable Chemistries are reassuring with a normal anion gap, normal renal function, normal electrolytes Independently reviewed EKG as above Imaging studies independently reviewed: Consultations:radiology- iodine allergy. Usually premedicates with prednisone/benadryl. Solumedrol and benadryl given 30min prior to CT Treatments: Fluids, D10 for hypoglycemia Re-evaluations: Patient is feeling somewhat better. Reviewed all labs and findings. Suggested that his pain is pleuritic and related to recent pneumonias that have been adequately treated. I am not seeing evidence of persistent or recurrent pneumonia. No evidence for hospitalization or need for antibiotics. His pleural effusion has completely resolved. There is no evidence of acute coronary syndrome or pulmonary embolism. Chronic pancreatitis does not seem to be significantly problematic at this time. We discussed the need for eating w hen he is profusely diaphoretic even if he does not feel hungry or shaky like his sugar is low. Because he is on dabigatran he can not use nonsteroidals for pain control. Will give him a brief prescription for Percocet for pleuritic chest pain with instructions to follow up with his primary care physician. Discussion: Recurrent episodes of pain, profuse diaphoresis, cough for the last month. To extended hospitalizations, emergency room visits, uncertain etiology. Will Re scan chest abdomen and pelvis today to see if there is an obscure infectious source. I am not appreciating any skin infections on his exam. No evidence of acute coronary syndrome. His profuse diaphoresis did improve when his hypoglycemia with sugar at 43 was treated. Diagnosis: 1. Hypoglycemia, no evidence of acute diabetic ketoacidosis. Is able to eat and is given a snack and D10, 1 L infused over 2 hours is administered. Diaphoresis resolved 2. Clustered small indistinct ground-glass nodules throughout the right lung with a right upper lobe predominance.? The findings likely represent atypical pneumonia.? Likely contributing to pleuritic chest pain. No evidence of continued pleural effusion. Disposition: see below, along with detailed discharge instructions that have been reviewed with patient as well as indications for ED re-evaluation and additional outpatient follow up Discharge Plan Departure Patient Disposition: Home Clinical Impression: Acute pleurisy without pleural effusion, Hypoglycemia Instructions: DI for Pleurisy Activity Restrictions/Additional Instructions: Thank you for coming in today I am not seeing evidence of recurrent pneumonia, worsening pleural effusion or other life-threatening abnormalities. The CT scan does show clustered small thanh und-glass nodules through the right upper lung suggesting an atypical pneumonia. I believe this has already been adequately treated in you do not need additional antibiotics or hospitalization. I suspect that you still you have a bit of inflammation around the outside of your lung which is causing your pain. This is called pleurisy. The small bit of fluid that had been collected around your lung previously has completely resolved. The optimum treatment for pleuritic chest pain is nonsteroidals however with your other medications this is not going to be an option. I am going to give you a short course of Percocet, Tylenol plus narcotic to help with the acute pain. This is a medication that you are prescribed regularly and you can use an extra 2-3 tablets daily the next 2-3 days. This can cause constipation so please make sure you take it with a stool softener. There is no evidence of sepsis, acute heart attack, worsening pancreatitis or abnormalities or masses in your belly. The severe profuse diaphoresis I believe is related to low blood sugar. When this happens, you need to have something to eat preferably something with protein as well as carbohydrate. If you find that you are getting worse or develop any new symptoms, please feel free to return to the emergency department for further evaluation. Prescriptions: New oxycodone-acetaminophen 5-325 mg tablet 1 tab PO Q6H PRN (Reason: pain) Qty: 14 0RF No Action clopidogrel [Plavix] 75 mg Tablet 75 mg PO QAM Qty: 0 methylphenidate HCl 20 mg tablet 20 mg PO TID Qty: 90 0RF insulin lispro [Humalog U-100 Insulin] 100 unit/mL solution See Rx Instructions SUBCUT USEASDIRECTD Rx Instructions: 2-4 sliding scale SUBCUT use as directed; gentamicin 0.3 % drops 1 drp EYE-BOTH TID PRN (Reason: Blepharitis) Qty: 5 12RF Creon 24,000-76,000 -120,000 unit capsule,delayed release(DR/EC) 1 cap PO QID Qty: 120 12RF Rx Instructions: administer with meals and/or snacks prn sliding scale. 1 capsule for every 600 calories promethazine 25 mg suppository 25 mg MO Q6H PRN (Reason: Nausea) duloxetine [Cymbalta] 60 mg capsule,delayed release(DR/EC) 60 mg PO QAM Combivent Respimat 20-100 mcg/actuation mist 1 puff inhalation Q4H PRN (Reason: wheezing) acetaminophen [Pain Relief (acetaminophen)] 325 MG tablet 500 mg PO Q4HP PRN (Reason: Pain, Mild) dabigatran etexilate [Pradaxa] 150 mg Capsule 150 mg PO BID pravastatin 80 mg Tablet 80 mg PO BEDTIME Qty: 0 Rx Instructions: 1 tablet daily HS ondansetron 8 mg tablet,disintegrating 4 mg PO TID PRN (Reason: nausea/vomiting) amiodarone 200 mg Tablet 200 mg PO DAILY Qty: 90 0RF metoprolol succinate [Toprol XL] 100 mg tablet extended release 24 hr 100 mg PO DAILY Qty: 90 0RF trazodone 50 mg Tablet 50 mg PO BEDTIME PRN (Reason: insomnia) Qty: 30 0RF Rx Instructions: can take 1/2 tab (25mg) if 50 is too strong lisinopril 2.5 mg Tablet 2.5 mg PO QAM metoprolol tartrate 25 mg Tablet 12.5 mg PO BID Qty: 60 0RF diphenhydramine HCl 12.5 mg/5 mL elixir 12.5 mg PO Q6H PRN (Reason: nausea and vomiting) Qty: 500 0RF oxycodone 10 mg tablet 5 mg PO Q4H PRN (Reason: Pain, Severe (7-10)) azelastine inhaler 2 spray intranasal BID hydrocodone-acetaminophen 5-325 mg tablet 1 tab PO Q8H PRN (Reason: pain) Qty: 10 0RF Referrals: Eric Huang MD [Primary Care Provider] - Stand Alone Forms: Patient Portal/API
--- NOTE | 2022-04-10 20:04 | DI.CT.S_ITS ---
PROCEDURE: CT CHEST ABD PEL W CON INDICATIONS: cough, chest pain, chronic pancreatitis, profuse diaphoresis TECHNIQUE: After the administration of oral and intravenous contrast, axial sections acquired from the supraclavicular neck to the pubic symphysis. Coronal and sagittal reformats were performed. For radiation dose reduction, the following was used: automated exposure control, adjustment of mA and/or kV according to patient size. COMPARISON: Formerly [facility], CT, CT ANGIO CHEST ABDOMEN PELVIS, 03/10/2021, 2:12. Formerly [facility], CT, CT ABDOMEN PELVIS W CON, 06/02/2021, 14:49. Formerly [facility], CT, CT KIDNEY URETER BLADDER (KUB), 02/25/2022, 16:42. FINDINGS: Image quality: Excellent. CHEST: Lower Neck: No lymphadenopathy by size criteria. Thyroid: Visualized thyroid demonstrates no discrete nodules. Axillae: No lymphadenopathy by size criteria. Chest Wall: Unremarkable. Lungs and Airways: There are clustered small indistinct ground-glass nodules within the right lung predominately within the right upper lobe. There is mild dependent atelectasis bilaterally. No acute consolidation. The trachea and central airways are patent. Pleura: No pneumothorax or pleural effusions. Heart: Heart size is normal. No pericardial effusion. Thoracic Vessels: The aorta and pulmonary arteries are normal in size. Mediastinum and Moon: No lymphadenopathy by size criteria. Esophagus: No wall thickening. There is a small hiatal hernia. ABDOMEN: Liver: No mass lesion. Gallbladder: Surgically absent. Biliary ducts: No biliary ductal dilatation. Pancreas: No peripancreatic fat stranding or fluid collections. No pancreatic calcifications. No discrete pancreatic mass or motion artifact. Spleen: Normal in size. Adrenal Glands: No adrenal nodules. Kidneys and Ureters: No hydronephrosis. Stomach and Bowel: Stomach, small bowel loops, and colon are normal in caliber and wall thickness. The appendix is normal in appearance. There is colonic diverticulosis without acute diverticulitis. Peritoneum: No abnormal intraperitoneal fluid. No free air. Ventral Wall: No hernia. Abdominal Nodes: No retroperitoneal or mesenteric adenopathy by size criteria. Vessels: Aorta and inferior vena cava are normal in size. PELVIS: Pelvic Organs: Unremarkable. Bladder: Unremarkable. Pelvic Nodes: No enlarged lymph nodes. Miscellaneous: No inguinal hernias are seen. Bones: Visualized osseous structures demonstrate no suspicious focal lesions. IMPRESSION: 1. Clustered small indistinct ground-glass nodules throughout the right lung with a right upper lobe predominance. The findings likely represent atypical pneumonia. The differential includes an inflammatory process such as hypersensitivity pneumonitis. 2. No CT evidence of acute pancreatitis. 3. Colonic diverticulosis. Dictated by: Sj Rankin M.D. on 04/10/2022 at 22:41 Approved by: Sj Rankin M.D. on 04/10/2022 at 22:47
--- NOTE | 2022-04-10 20:17 | PC.NURSE ---
Patient drenched in sweat, pale. Blood Glucose 41, Dr. Guzman notified and pt given apple juice, new orders received.
[2022-04-10] MEDS: DEXTROSE 10 % IN WATER 1,000 ML 500 ML IV (20:27)
[2022-04-10] MEDS: methylPREDNISolone 125 MG/2 ML VIAL IV (20:28)
[2022-04-10] MEDS: diphenhydrAMINE 50 MG/ML VIAL IV (20:28)
[2022-04-10 20:47] LABS: Thyroid Stimulating Hormone 3.84 uIU/mL (0.47-4.68)
[2022-04-10 22:13] LABS: Adenovirus Not Detected (Not Detect); B. parapertussis Not Detected (Not Detecte); Bordetella pertussis Not Detected (Not Detecte); Chlamydophila pneumoniae Not Detected (Not Detect); Coronavirus 229E Not Detected (Not Detect); Coronavirus HKU1 Not Detected (Not Detect); Coronavirus NL 63 Not Detected (Not Detect); Coronavirus OC43 Not Detected (Not Detect); Human Metapneumovirus Not Detected (Not Detect); Human Rhinovirus/Enterovirus Not Detected (Not Detect); Influenza A Not Detected (Not Detect); Influenza B Not Detected (Not Detect); Mycoplasma pneumoniae Not Detected (Not Detect); Parainfluenza Virus 1 Not Detected (Not Detect); Parainfluenza Virus 2 Not Detected (Not Detect); Parainfluenza Virus 3 Not Detected (Not Detect); Parainfluenza Virus 4 Not Detected (Not Detect); Respiratory Syncytial Virus Not Detected (Not Detect); SARS- CoV-2 Not Detected (Not Detecte)
[2022-04-10] MEDS: OXYCODONE/ACETAMINOPHEN 5/325 TABLET 1 TAB PO (23:47)
[2022-04-10] MEDS: OXYCODONE/APAP 5/325 PREPACK 1 BOTTLE MISC (23:47)
[2022-04-14 15:53] LABS: Albumin 4.7 g/dL (3.5-5.0); Albumin Globulin Ratio 1.5 (1.0-2.8); Globulin 3.1 g/dL (1.7-4.1)
[2022-04-14 16:04] LABS: HEMOLYSIS 56 (0-50)
== END 2022-04-10 23:59 | disposition home or self-care (01) ==
PROVIDERS: Emergency Provider Emergency Medicine; Family Provider Nurse Practitioner Family; PCP Family Medicine
DX: R09.1 Pleurisy (principal); E11.649 Type 2 diabetes mellitus with hypoglycemia without coma; Z79.4 Long term (current) use of insulin; R05.9 Cough, unspecified; I48.20 Chronic atrial fibrillation, unspecified; Z79.01 Long term (current) use of anticoagulants; Z79.899 Other long term (current) drug therapy; Z20.822 Contact with and (suspected) exposure to COVID-19
CPT/HCPCS: 36415; 71045; 71260; 74177; 80053; 82962; 83605; 83690; 83735; 83880; 84145; 84443; 84484; 85025; 85379; 87040; 87633; 93005; 96361; 96374; 96375; 99284; J1200; J2930; Q9967

== ENCOUNTER 2022-04-15 14:44 | Inpatient (IN) | payer OTHER, SELFPAY ==
[2022-02-25 20:37] VITALS: BMI 25.0
[2022-04-15] VITALS (19 sets, daily range): BP systolic 112–142; BP diastolic 57–80; PULSE 72–89; RESP 18–37; TEMP 36.4–36.6; O2SAT 94–99; BMI 22.9; BMI 25.2
--- NOTE | 2022-04-15 14:56 | DI.RAD.S_ITS ---
PROCEDURE: XR CHEST 1V INDICATIONS: chest pain TECHNIQUE: One view of the chest was acquired. COMPARISON: [facility], CR, XR CHEST 1V, 04/10/2022, 18:22. FINDINGS: Surgical changes and devices: None. Lungs and pleura: Lungs are clear. No pleural effusions or pneumothorax. Mediastinum: Mediastinal contours appear normal. Heart size is normal. Bones and chest wall: No suspicious bony lesions. Overlying soft tissues appear unremarkable. IMPRESSION: No acute cardiopulmonary disease. Dictated by: Pamella Ye M.D. on 04/15/2022 at 15:45 Approved by: Pamella Ye M.D. on 04/15/2022 at 15:45
--- NOTE | 2022-04-15 15:21 | ED.CHESTPAIN ---
HPI - Chest Pain General Chief Complaint: Chest Pain Stated Complaint: chest pain /pleurisy T-7 Time Seen by Provider: 04/15/22 15:18 Mode of arrival: EMS Limitations: no limitations Related Data Home Medications Medication Instructions Recorded Confirmed clopidogrel 75 mg tablet (Plavix) 75 mg PO QAM ##0 04/15/08 02/25/22 acetaminophen 325 mg tablet (Pain 500 mg PO Q4HP PRN Pain, Mild 09/25/17 02/25/22 Relief (acetaminophen)) dabigatran etexilate 150 mg 150 mg PO BID 03/24/18 02/25/22 capsule (Pradaxa) pravastatin 80 mg tablet 80 mg PO BEDTIME ##0 02/13/19 02/25/22 lisinopril 2.5 mg tablet 2.5 mg PO QAM blood pressure 04/28/19 02/25/22 insulin lispro 100 unit/mL See Rx Instructions SUBCUT 03/15/20 02/25/22 subcutaneous solution (Humalog USEASDIRECTD U-100 Insulin) promethazine 25 mg rectal 25 mg MD Q6H PRN Nausea 06/17/20 02/25/22 suppository azelastine 2 spray intranasal BID 05/30/21 02/25/22 oxycodone 10 mg tablet 5 mg PO Q4H PRN Pain, Severe (7-10) 05/30/21 02/25/22 duloxetine 60 mg capsule,delayed 60 mg PO QAM 11/01/21 02/25/22 release (Cymbalta) ipratropium 20 mcg-albuterol 100 1 puff inhalation Q4H PRN wheezing 11/01/21 02/25/22 mcg/actuation mist for inhalation (Combivent Respimat) ondansetron 8 mg disintegrating 4 mg PO TID PRN nausea/vomiting 02/25/22 02/25/22 tablet Previous Rx's Medication Instructions Recorded gentamicin 0.3 % eye drops 1 drp EYE-BOTH TID PRN Blepharitis 03/15/20 #5 mL [id number] 1 cap PO QID #120 caps 03/15/20 24,000-76,000-120,000 unit capsule,delayed rel (Creon) diphenhydramine HCl 12.5 mg/5 mL 12.5 mg (5 mL) PO Q6H PRN nausea 03/15/21 oral elixir and vomiting #500 mL metoprolol tartrate 25 mg tablet 12.5 mg PO BID #60 tabs 03/15/21 hydrocodone 5 mg-acetaminophen 325 1 tab PO Q8H PRN pain #10 tabs 05/30/21 mg tablet amiodarone 200 mg tablet 200 mg PO DAILY #90 tabs 03/03/22 metoprolol succinate 100 mg 100 mg PO DAILY #90 tabs 03/03/22 tablet,extended release 24 hr (Toprol XL) trazodone 50 mg tablet 50 mg PO BEDTIME PRN insomnia #30 03/03/22 tabs methylphenidate HCl 20 mg tablet 20 mg PO TID #90 ea 03/23/22 oxycodone-acetaminophen 5 mg-325 1 tab PO Q6H PRN pain #14 tabs 04/10/22 mg tablet Allergies Allergy/AdvReac Type Severity Reaction Status Date / Time Iodine and Iodide Containing Allergy Severe Anaphylaxis Verified 04/10/22 18:24 Produc [IODINE AND IODIDE CONTAINING PRODUC] Sulfa (Sulfonamide Allergy Severe Anaphylaxis Verified 04/10/22 18:24 Antibiotics) [SULFA (SULFONAMIDE ANTIBIOTICS)] gabapentin AdvReac Intermediate Dizziness Verified 04/10/22 18:24 [id number] Reductase AdvReac Intermediate Verified 04/10/22 18:24 Inhibitor metformin AdvReac Mild Verified 04/10/22 18:24 Patient History Medical History Acute dehydration Atrial flutter with rapid ventricular response Campylobacter enteritis Claudication in peripheral vascular disease Enteritis, enteropathogenic E. coli Exocrine pancreatic insufficiency Gastroenteritis GERD (gastroesophageal reflux disease) History of cardioversion (03/07/21) HTN (hypertension) Hyperlipidemia Insulin dependent diabetes mellitus with complications Narcolepsy Nausea vomiting and diarrhea Pancreatic endocrine tumor Pancreatitis Paroxysmal atrial fibrillation Peripheral vascular disease Psoriasis Sepsis Surgical History H/O exploratory laparotomy History of epididymectomy History of femoropopliteal bypass Hx of biopsy Family History Father Colon cancer Mother Narcolepsy Grandmother Narcolepsy Social History household members: significant other Smoking Status: Former smoker alcohol intake: former Smoking Status: Former smoker alcohol intake frequency: 0-2 drinks per day Substance Use Type: marijuana Exam Initial Vital Signs Initial Vital Signs: Vital Signs Temperature 97.6 F 04/15/22 14:44 Pulse Rate 78 04/15/22 14:44 Respiratory Rate 18 04/15/22 14:44 Blood Pressure 142/76 H 04/15/22 14:44 Pulse Oximetry 98 04/15/22 14:44 Oxygen Delivery Method 04/15/22 14:44 Course Orders Ordered: Acetaminophen (Acetaminophen 325 Mg Tablet) 650 mg PO Q6H PRN PRN Reason: Fever/Mild Pain (1-3) Hydrocodone Bitart/Acetaminophen (Hydrocodone/Acet 5/325 Tablet) 1 tab PO Q4H PRN PRN Reason: Pain, Moderate (4-6) Amiodarone HCl (Amiodarone 200 Mg Tablet) 200 mg PO DAILY KATHY Dextrose (Dextrose 50 % In Water 25 Gm/50 Ml Syringe) 25 gm IV PRN PRN PRN Reason: Hypoglycemia Enoxaparin Sodium (Enoxaparin 40 Mg/0.4 Ml Syringe) 40 mg SUBCUT DAILY KATHY Hydromorphone HCl (Hydromorphone 0.5 Mg Inj) 1 mg IV Q4H PRN PRN Reason: Pain, Severe (7-10) Last Admin: 04/15/22 22:26 Dose: 1 mg Documented By: Sodium Chloride (Normal Saline 0.45%) 1,000 mls @ 100 mls/hr IV CONT KATHY Last Admin: 04/16/22 08:11 Dose: 100 mls/hr Documented By: Infusion: 04/16/22 07:49 Dose: 100 mls/hr Documented By: Admin: 04/15/22 21:49 Dose: 100 mls/hr Documented By: Insulin Human Lispro (Insulin Lispro 100 Unit/Ml 3ml Vial) 0 unit SUBCUT Q6H KATHY; Protocol Last Admin: 04/16/22 03:31 Dose: 1 unit Documented By: Co-signed By: OG Admin: 04/15/22 23:24 Dose: 2 unit Documented By: Co-signed By: ONDINA Lisinopril (Lisinopril 5 Mg Tablet) 2.5 mg PO DAILY KATHY Lorazepam (Lorazepam 2 Mg/Ml Inj) 1 mg IV Q6HR PRN PRN Reason: Anxiety Last Admin: 04/15/22 22:43 Dose: 1 mg Documented By: MS Metoprolol Tartrate (Metoprolol Ir 50 Mg Tablet) 50 mg PO BID KATHY Naloxone HCl (Naloxone 0.4 Mg/Ml Vial) 0.2 mg IV Q2MIN PRN PRN Reason: Opiate Reversal Lipase-Protease- Amylase [Creon] 24, 000-76,000 -120,000 Unit Caps 1 cap PO QID KATHY Ondansetron HCl (Ondansetron 4 Mg/2 Ml Inj) 4 mg IV Q6HR PRN PRN Reason: Nausea And Vomiting Prochlorperazine (Prochlorperazine 10 Mg/2 Ml Vial) 10 mg IV Q6HR PRN PRN Reason: Nausea Promethazine HCl (Promethazine 25 Mg Supp) 25 mg MD Q6HR PRN PRN Reason: Nausea Trazodone HCl (Trazodone 50 Mg Tablet) 50 mg PO BEDTIME PRN PRN Reason: insomnia Last Admin: 04/15/22 22:43 Dose: 50 mg Documented By: MS Discontinued Medications Aspirin (Aspirin 81 Mg Chew Tab) 324 mg PO NOW ONE Stop: 04/15/22 14:57 Last Admin: 04/15/22 15:27 Dose: Not Given Documented By: SB Diphenhydramine HCl (Diphenhydramine 50 Mg/Ml Vial) 50 mg IV NOW ONE Stop: 04/15/22 16:44 Last Admin: 04/15/22 16:54 Dose: 50 mg Documented By: RL Hydromorphone HCl (Hydromorphone 1 Mg Inj) 1 mg IV NOW ONE Stop: 04/15/22 16:31 Last Admin: 04/15/22 16:53 Dose: 1 mg Documented By: RL Hydromorphone HCl (Hydromorphone 1 Mg Inj) 1 mg IV NOW ONE Stop: 04/15/22 19:04 Last Admin: 04/15/22 19:06 Dose: 1 mg Documented By: RB Sodium Chloride (Normal Saline 0.9%) 1,000 mls @ 1,000 mls/hr IV BOLUS ONE Stop: 04/15/22 17:29 Last Infusion: 04/15/22 19:03 Dose: 0 mls/hr Documented By: Infusion: 04/15/22 18:14 Dose: 1,000 mls/hr Documented By: Infusion: 04/15/22 17:36 Dose: 0 mls/hr Documented By: Admin: 04/15/22 16:53 Dose: 1,000 mls/hr Documented By: RL Sodium Chloride (Normal Saline 0.9%) 1,000 mls @ 1,000 mls/hr IV BOLUS ONE Stop: 04/15/22 20:04 Last Infusion: 04/15/22 20:25 Dose: 0 mls/hr Documented By: Admin: 04/15/22 19:07 Dose: 1,000 mls/hr Documented By: RB Magnesium Sulfate (Magnesium Sulfate) 2 gm in 50 mls @ 25 mls/hr IV NOW ONE Stop: 04/15/22 21:49 Last Infusion: 04/15/22 21:09 Dose: 25 mls/hr Documented By: MS Co-signed By: RJW Infusion: 04/15/22 20:55 Dose: 0 mls/hr Documented By: SB Co-signed By: GC Admin: 04/15/22 20:19 Dose: 25 mls/hr Documented By: SB Co-signed By: RB Methylprednisolone (Methylprednisolone 125 Mg/2 Ml Vial) 125 mg IV NOW ONE Stop: 04/15/22 16:44 Last Admin: 04/15/22 16:54 Dose: 125 mg Documented By: RL Metoprolol Succinate (Metoprolol Er 50 Mg Tablet) 100 mg PO DAILY [facility] Metoprolol Tartrate (Metoprolol Ir 25 Mg Tablet) 12.5 mg PO BID [facility] Last Admin: 04/16/22 02:47 Dose: Not Given Documented By: VH Morphine Sulfate (Morphine 4 Mg/Ml Inj) 4 mg IV NOW ONE Stop: 04/15/22 15:21 Last Admin: 04/15/22 15:48 Dose: 4 mg Documented By: SB Ondansetron HCl (Ondansetron 4 Mg/2 Ml Inj) 4 mg IV NOW ONE Stop: 04/15/22 20:10 Last Admin: 04/15/22 20:17 Dose: Not Given Documented By: SB Prochlorperazine (Prochlorperazine 25 Mg Supp) 25 mg MD Q6HR PRN PRN Reason: Nausea Promethazine HCl (Promethazine 25 Mg Tablet) 25 mg PO NOW ONE Stop: 04/15/22 16:31 Last Admin: 04/15/22 16:46 Dose: 25 mg Documented By: TAQUERIA Vital Signs Vital signs: Vital Signs - 8 hr 04/15/22 14:44 04/15/22 15:17 04/15/22 15:17 Temperature 97.6 F Pulse Rate 78 72 Respiratory Rate 18 23 Blood Pressure 142/76 H 113/57 L Pulse Oximetry 98 97 Oxygen Delivery Method Room Air 04/15/22 15:30 04/15/22 15:54 04/15/22 15:54 Temperature Pulse Rate 72 75 Respiratory Rate 27 H 37 H Blood Pressure 129/63 Pulse Oximetry 97 97 Oxygen Delivery Method 04/15/22 16:00 04/15/22 16:00 04/15/22 16:30 Temperature Pulse Rate 74 Respiratory Rate 29 H Blood Pressure 115/58 L 121/80 Pulse Oximetry 96 Oxygen Delivery Method 04/15/22 16:30 04/15/22 17:00 Temperature Pulse Rate 77 78 Respiratory Rate 32 H 33 H Blood Pressure Pulse Oximetry 97 95 Oxygen Delivery Method MDM - Chest Pain Lab Data Result diagrams: 04/16/22 05:29 04/16/22 05:29 Labs: Lab Results 04/15/22 04/15/22 04/15/22 Range/Units 15:03 15:03 15:11 WBC 5.9 (4.5-11.0) X10^3/uL RBC 4.55 (4.5-5.9) X10^6/uL Hgb 13.4 L (13.5-17.5) g/dL Hct 40.3 L (41-53) % MCV 88.6 (80-100) fL MCH 29.4 (26-34) PG MCHC 33.2 (30-36) % RDW 14.3 (11.6-14.8) % Plt Count 319 (150-400) X10^3/uL Neut % (Auto) 59.3 (50-75) % Lymph % (Auto) 25.7 (25-40) % [place] % (Auto) 7.6 (3-14) % Eos % (Auto) 6.4 H (2-4) % Baso % (Auto) 1.0 (0-2) % Neut # (Auto) 3500 (6350-2833) /uL Lymph # (Auto) 1500 (1372-0196) /uL [place] # (Auto) 400 (0-900) /uL Eos # (Auto) 400 (0-450) /uL Baso # (Auto) 100 (0-100) /uL PT (10.1-12.7) SECONDS INR (0.9-1.3) APTT (26-36) SECONDS D-Dimer 321 (<500) ng/ml Sodium (137-145) mmol/L Potassium (3.4-5.1) mmol/L Chloride (98-107) mmol/L Carbon Dioxide (22-32) mmol/L BUN (9-20) mg/dL Creatinine (0.66-1.25) mg/dL Estimated GFR (>60) mL/min BUN/Creatinine Ratio (6-22) Glucose (80-110) mg/dL Calcium (8.4-10.2) mg/dL Magnesium (1.6-2.3) mg/dL Total Bilirubin (0.2-1.3) mg/dL AST (17-59) IU/L ALT (<50) IU/L Alkaline Phosphatase (38-126) U/L Total Creatine Kinase (55-170) U/L CK-MB (CK-2) CK-MB (CK-2) Rel Index Troponin I (0.01-0.034) ng/mL NT-Pro-B Natriuret Pep 55 (<125) pg/mL Total Protein (6.3-8.2) g/dL Albumin (3.5-5.0) g/dL Globulin (1.7-4.1) g/dL Albumin/Globulin Ratio (1.0-2.8) Lipase (23-300) U/L TSH (0.47-4.68) uIU/mL SARS-CoV-2 (PCR) (Negative) Hep Bs Antigen (NEGATIVE) s/c Hepatitis C Antibody (NEGATIVE) s/c HIV 1&2 Ab/P24 Ag 4thGn (NEGATIVE) 04/15/22 04/15/22 04/15/22 Range/Units 15:11 15:11 15:11 WBC (4.5-11.0) X10^3/uL RBC (4.5-5.9) X10^6/uL Hgb (13.5-17.5) g/dL Hct (41-53) % MCV (80-100) fL MCH (26-34) PG MCHC (30-36) % RDW (11.6-14.8) % Plt Count (150-400) X10^3/uL Neut % (Auto) (50-75) % Lymph % (Auto) (25-40) % [place] % (Auto) (3-14) % Eos % (Auto) (2-4) % Baso % (Auto) (0-2) % Neut # (Auto) (3098-3129) /uL Lymph # (Auto) (5085-8643) /uL [place] # (Auto) (0-900) /uL Eos # (Auto) (0-450) /uL Baso # (Auto) (0-100) /uL PT 12.5 (10.1-12.7) SECONDS INR 1.1 (0.9-1.3) APTT 17 L (26-36) SECONDS D-Dimer (<500) ng/ml Sodium 134 L (137-145) mmol/L Potassium 4.8 (3.4-5.1) mmol/L Chloride 100 (98-107) mmol/L Carbon Dioxide 25 (22-32) mmol/L BUN 9 (9-20) mg/dL Creatinine 0.53 L (0.66-1.25) mg/dL Estimated GFR > 60 (>60) mL/min BUN/Creatinine Ratio 17.0 (6-22) Glucose 223 H D (80-110) mg/dL Calcium 8.5 (8.4-10.2) mg/dL Magnesium 1.5 L (1.6-2.3) mg/dL Total Bilirubin 0.5 (0.2-1.3) mg/dL AST 32 (17-59) IU/L ALT 26 (<50) IU/L Alkaline Phosphatase 75 (38-126) U/L Total Creatine Kinase 45 L (55-170) U/L CK-MB (CK-2) TNP CK-MB (CK-2) Rel Index TNP Troponin I < 0.012 (0.01-0.034) ng/mL NT-Pro-B Natriuret Pep (<125) pg/mL Total Protein 7.2 (6.3-8.2) g/dL Albumin 4.2 (3.5-5.0) g/dL Globulin 3.0 (1.7-4.1) g/dL Albumin/Globulin Ratio 1.4 (1.0-2.8) Lipase 810 H D (23-300) U/L TSH (0.47-4.68) uIU/mL SARS-CoV-2 (PCR) Negative (Negative) Hep Bs Antigen (NEGATIVE) s/c Hepatitis C Antibody (NEGATIVE) s/c HIV 1&2 Ab/P24 Ag 4thGn (NEGATIVE) 04/15/22 04/15/22 04/15/22 Range/Units 15:11 15:11 18:24 WBC (4.5-11.0) X10^3/uL RBC (4.5-5.9) X10^6/uL Hgb (13.5-17.5) g/dL Hct (41-53) % MCV (80-100) fL MCH (26-34) PG MCHC (30-36) % RDW (11.6-14.8) % Plt Count (150-400) X10^3/uL Neut % (Auto) (50-75) % Lymph % (Auto) (25-40) % [place] % (Auto) (3-14) % Eos % (Auto) (2-4) % Baso % (Auto) (0-2) % Neut # (Auto) (3584-9385) /uL Lymph # (Auto) (5547-3419) /uL [place] # (Auto) (0-900) /uL Eos # (Auto) (0-450) /uL Baso # (Auto) (0-100) /uL PT (10.1-12.7) SECONDS INR (0.9-1.3) APTT (26-36) SECONDS D-Dimer (<500) ng/ml Sodium (137-145) mmol/L Potassium (3.4-5.1) mmol/L Chloride (98-107) mmol/L Carbon Dioxide (22-32) mmol/L BUN (9-20) mg/dL Creatinine (0.66-1.25) mg/dL Estimated GFR (>60) mL/min BUN/Creatinine Ratio (6-22) Glucose (80-110) mg/dL Calcium (8.4-10.2) mg/dL Magnesium 1.5 L (1.6-2.3) mg/dL Total Bilirubin (0.2-1.3) mg/dL AST (17-59) IU/L ALT (<50) IU/L Alkaline Phosphatase (38-126) U/L Total Creatine Kinase (55-170) U/L CK-MB (CK-2) CK-MB (CK-2) Rel Index Troponin I < 0.012 (0.01-0.034) ng/mL NT-Pro-B Natriuret Pep (<125) pg/mL Total Protein (6.3-8.2) g/dL Albumin (3.5-5.0) g/dL Globulin (1.7-4.1) g/dL Albumin/Globulin Ratio (1.0-2.8) Lipase (23-300) U/L TSH 1.45 D (0.47-4.68) uIU/mL SARS-CoV-2 (PCR) (Negative) Hep Bs Antigen (NEGATIVE) s/c Hepatitis C Antibody (NEGATIVE) s/c HIV 1&2 Ab/P24 Ag 4thGn (NEGATIVE) 04/15/22 04/15/22 Range/Units 19:20 19:20 WBC (4.5-11.0) X10^3/uL RBC (4.5-5.9) X10^6/uL Hgb (13.5-17.5) g/dL Hct (41-53) % MCV (80-100) fL MCH (26-34) PG MCHC (30-36) % RDW (11.6-14.8) % Plt Count (150-400) X10^3/uL Neut % (Auto) (50-75) % Lymph % (Auto) (25-40) % [place] % (Auto) (3-14) % Eos % (Auto) (2-4) % Baso % (Auto) (0-2) % Neut # (Auto) (2884-1832) /uL Lymph # (Auto) (6260-2356) /uL [place] # (Auto) (0-900) /uL Eos # (Auto) (0-450) /uL Baso # (Auto) (0-100) /uL PT (10.1-12.7) SECONDS INR (0.9-1.3) APTT (26-36) SECONDS D-Dimer (<500) ng/ml Sodium (137-145) mmol/L Potassium (3.4-5.1) mmol/L Chloride (98-107) mmol/L Carbon Dioxide (22-32) mmol/L BUN (9-20) mg/dL Creatinine (0.66-1.25) mg/dL Estimated GFR (>60) mL/min BUN/Creatinine Ratio (6-22) Glucose (80-110) mg/dL Calcium (8.4-10.2) mg/dL Magnesium (1.6-2.3) mg/dL Total Bilirubin (0.2-1.3) mg/dL AST (17-59) IU/L ALT 27 (<50) IU/L Alkaline Phosphatase (38-126) U/L Total Creatine Kinase (55-170) U/L CK-MB (CK-2) CK-MB (CK-2) Rel Index Troponin I (0.01-0.034) ng/mL NT-Pro-B Natriuret Pep (<125) pg/mL Total Protein (6.3-8.2) g/dL Albumin (3.5-5.0) g/dL Globulin (1.7-4.1) g/dL Albumin/Globulin Ratio (1.0-2.8) Lipase (23-300) U/L TSH (0.47-4.68) uIU/mL SARS-CoV-2 (PCR) (Negative) Hep Bs Antigen Negative (NEGATIVE) s/c Hepatitis C Antibody Negative (NEGATIVE) s/c HIV 1&2 Ab/P24 Ag 4thGn Negative (NEGATIVE) Point of Care Testing Glucose POC 205 Discharge Plan Departure Patient Disposition: Admitted as Observation Clinical Impression: Acute pancreatitis Admit Date/Time: 04/15/22 19:52 Admit Provider: Lyudmila Munguia
[2022-04-15 15:22] LABS: Add Manual Diff / Slide Review NO; Basophils Absolute Auto 100 /uL (0-100); Eosinophils Absolute Auto 400 /uL (0-450); Eosinophils Percent Auto 6.4 % (2-4); Hematocrit 40.3 % (41-53); Hemoglobin 13.4 g/dL (13.5-17.5); Lymphocytes Absolute Auto 1500 /uL (1100-4500); Lymphocytes Percent Auto 25.7 % (25-40); Mean Corpuscular HGB Conc 33.2 % (30-36); Mean Corpuscular Hemoglobin 29.4 PG (26-34); Mean Corpuscular Volume 88.6 fL (80-100); Monocytes Absolute Auto 400 /uL (0-900); Monocytes Percent Auto 7.6 % (3-14); Neutrophils Absolute Auto 3500 /uL (1500-7000); Neutrophils Percent Auto 59.3 % (50-75); Platelet Count 319 X10^3/uL (150-400); Red Blood Cell Count 4.55 X10^6/uL (4.5-5.9); Red Cell Distribution Width 14.3 % (11.6-14.8); White Blood Cell Count 5.9 X10^3/uL (4.5-11.0)
[2022-04-15 15:25] LABS: INR 1.1 (0.9-1.3); Prothrombin Time 12.5 SECONDS (10.1-12.7)
[2022-04-15 15:28] LABS: PTT Partial Thromboplastin Tim 17 SECONDS (26-36)
[2022-04-15 15:30] LABS: D Dimer 321 ng/ml (<500)
[2022-04-15 15:31] LABS: Alanine Aminotransferase 26 IU/L (<50); Albumin 4.2 g/dL (3.5-5.0); Albumin Globulin Ratio 1.4 (1.0-2.8); Alkaline Phosphatase 75 U/L (38-126); Aspartate Aminotransferase 32 IU/L (17-59); Bilirubin Total 0.5 mg/dL (0.2-1.3); Blood Urea Nitrogen 9 mg/dL (9-20); Calcium 8.5 mg/dL (8.4-10.2); Carbon Dioxide 25 mmol/L (22-32); Chloride 100 mmol/L (98-107); Creatine Kinase 45 U/L (55-170); Estimated Glomerular Filt Rate > 60 mL/min (>60); Glucose 223 mg/dL (80-110); Lipase 810 U/L (23-300); Magnesium 1.5 mg/dL (1.6-2.3); Sodium 134 mmol/L (137-145); Total Protein 7.2 g/dL (6.3-8.2)
[2022-04-15 15:36] LABS: HEMOLYSIS 94 (0-50); Potassium 4.8 mmol/L (3.4-5.1)
--- NOTE | 2022-04-15 15:37 | PC.NURSE ---
Pt reports history of pancreatitis, flu in February, double pneumonia, acute respiratory failure, pleural effusion, pleurisy and afib. Provider aware.
[2022-04-15 15:40] LABS: NT-proBNP (BNP-Adult 18+) 55 pg/mL (<125)
[2022-04-15 15:43] LABS: Troponin I < 0.012 ng/mL (0.01-0.034)
[2022-04-15] MEDS: MORPHINE 4 MG/ML INJ IV (15:48)
[2022-04-15 15:49] LABS: COVID19 -Nasal RAPID Negative (Negative)
--- NOTE | 2022-04-15 16:08 | ED_ITS ---
HPI - Chest Pain <Brigida Ortiz PA-C - Last Filed: 04/15/22 20:54> General Chief Complaint: Chest Pain Stated Complaint: chest pain /pleurisy T-7 Time Seen by Provider: 04/15/22 15:18 Mode of arrival: EMS Limitations: no limitations History of Present Illness HPI narrative: 67-year-old gentleman with a history of paroxysmal atrial fibrillation, pancreatic insufficiency, vascular disease with right lower extremity angioplasty, insulin-dependent diabetes, hyperlipidemia, hypertension presents to the emergency department today with concern for worsening chest pain. He was seen in the emergency department on Sunday and diagnosed with pleurisy. He states that since that time his pain moved more from the right over to the left and now occupies the entire chest area especially in the center. He states his nausea has been increased although he is not been vomiting, and his chronic 3/10 abdominal pain has been much worse up to an 8 or 10 at times recently. Patient states that his pain does seem to be positional it is definitely worse if he is lying flat and improved if he is sitting upright. He has been eating and drinking but states that lately this has been more of a problem and he is had to force himself to eat it seems to make his baseline pain act up. He last ate a little bit this morning. He is on the brat diet. He states he has been having normal bowel movements and denies any urinary symptoms. Related Data Home Medications Medication Instructions Recorded Confirmed clopidogrel 75 mg tablet (Plavix) 75 mg PO QAM ##0 04/15/08 02/25/22 acetaminophen 325 mg tablet (Pain 500 mg PO Q4HP PRN Pain, Mild 09/25/17 02/25/22 Relief (acetaminophen)) dabigatran etexilate 150 mg 150 mg PO BID 03/24/18 02/25/22 capsule (Pradaxa) pravastatin 80 mg tablet 80 mg PO BEDTIME ##0 02/13/19 02/25/22 lisinopril 2.5 mg tablet 2.5 mg PO QAM blood pressure 04/28/19 02/25/22 insulin lispro 100 unit/mL See Rx Instructions SUBCUT 03/15/20 02/25/22 subcutaneous solution (Humalog USEASDIRECTD U-100 Insulin) promethazine 25 mg rectal 25 mg AR Q6H PRN Nausea 06/17/20 02/25/22 suppository azelastine 2 spray intranasal BID 05/30/21 02/25/22 oxycodone 10 mg tablet 5 mg PO Q4H PRN Pain, Severe (7-10) 05/30/21 02/25/22 duloxetine 60 mg capsule,delayed 60 mg PO QAM 11/01/21 02/25/22 release (Cymbalta) ipratropium 20 mcg-albuterol 100 1 puff inhalation Q4H PRN wheezing 11/01/21 02/25/22 mcg/actuation mist for inhalation (Combivent Respimat) ondansetron 8 mg disintegrating 4 mg PO TID PRN nausea/vomiting 02/25/22 02/25/22 tablet Previous Rx's Medication Instructions Recorded gentamicin 0.3 % eye drops 1 drp EYE-BOTH TID PRN Blepharitis 03/15/20 #5 mL raicke-yalncwmv-klrnyan 1 cap PO QID #120 caps 03/15/20 24,000-76,000-120,000 unit capsule,delayed rel (Creon) diphenhydramine HCl 12.5 mg/5 mL 12.5 mg (5 mL) PO Q6H PRN nausea 03/15/21 oral elixir and vomiting #500 mL metoprolol tartrate 25 mg tablet 12.5 mg PO BID #60 tabs 03/15/21 hydrocodone 5 mg-acetaminophen 325 1 tab PO Q8H PRN pain #10 tabs 05/30/21 mg tablet amiodarone 200 mg tablet 200 mg PO DAILY #90 tabs 03/03/22 metoprolol succinate 100 mg 100 mg PO DAILY #90 tabs 03/03/22 tablet,extended release 24 hr (Toprol XL) trazodone 50 mg tablet 50 mg PO BEDTIME PRN insomnia #30 03/03/22 tabs methylphenidate HCl 20 mg tablet 20 mg PO TID #90 ea 03/23/22 oxycodone-acetaminophen 5 mg-325 1 tab PO Q6H PRN pain #14 tabs 04/10/22 mg tablet Allergies Allergy/AdvReac Type Severity Reaction Status Date / Time Iodine and Iodide Containing Allergy Severe Anaphylaxis Verified 04/10/22 18:24 Produc [IODINE AND IODIDE CONTAINING PRODUC] Sulfa (Sulfonamide Allergy Severe Anaphylaxis Verified 04/10/22 18:24 Antibiotics) [SULFA (SULFONAMIDE ANTIBIOTICS)] gabapentin AdvReac Intermediate Dizziness Verified 04/10/22 18:24 Ckybchy-VYL-XtD Reductase AdvReac Intermediate Verified 04/10/22 18:24 Inhibitor metformin AdvReac Mild Verified 04/10/22 18:24 Patient History <Brigida Ortiz PA-C - Last Filed: 04/15/22 20:54> Medical History Acute dehydration Atrial flutter with rapid ventricular response Campylobacter enteritis Claudication in peripheral vascular disease Enteritis, enteropathogenic E. coli Exocrine pancreatic insufficiency Gastroenteritis GERD (gastroesophageal reflux disease) History of cardioversion (03/07/21) HTN (hypertension) Hyperlipidemia Insulin dependent diabetes mellitus with complications Narcolepsy Nausea vomiting and diarrhea Pancreatic endocrine tumor Pancreatitis Paroxysmal atrial fibrillation Peripheral vascular disease Psoriasis Sepsis Surgical History H/O exploratory laparotomy History of epididymectomy History of femoropopliteal bypass Hx of biopsy Family History Father Colon cancer Mother Narcolepsy Grandmother Narcolepsy Social History household members: significant other Smoking Status: Former smoker alcohol intake: former Smoking Status: Former smoker alcohol intake frequency: 0-2 drinks per day Substance Use Type: marijuana Exam <Brigida Ortiz PA-C - Last Filed: 04/15/22 20:54> Initial Vital Signs Initial Vital Signs: Vital Signs Temperature 97.6 F 04/15/22 14:44 Pulse Rate 78 04/15/22 14:44 Respiratory Rate 18 04/15/22 14:44 Blood Pressure 142/76 H 04/15/22 14:44 Pulse Oximetry 98 04/15/22 14:44 Oxygen Delivery Method 04/15/22 14:44 HENWI Head: normal to inspection Eyes General: Yes appearance normal, both eyes and all related structures Pupils: PERRL Chest Chest: normal inspection of the chest and tenderness (generalized) Resp Effort & Inspection: normal respiratory effort Auscultation: rales (consistent with known pleural effusion) bilaterally Cardio Rate: regular rate Rhythm: regular rhythm Heart Sounds: S1 normal and S2 normal GI Inspection: normal to inspection Palpation: soft and tender (Generalized tenderness exquisite left upper quadrant, left flank tender) Auscultation: normal bowel sounds Skin General: no rashes or lesions noted <Laina Andres DO - Last Filed: 04/16/22 08:32> Initial Vital Signs Initial Vital Signs: Vital Signs Temperature 97.6 F 04/15/22 14:44 Pulse Rate 78 04/15/22 14:44 Respiratory Rate 18 04/15/22 14:44 Blood Pressure 142/76 H 04/15/22 14:44 Pulse Oximetry 98 04/15/22 14:44 Oxygen Delivery Method 04/15/22 14:44 Scores <Brigida Ortiz PA-C - Last Filed: 04/15/22 20:54> HEART Score Heart Score history: Moderately Suspicious Heart Score EKG: Normal Heart Score Age: > or = 65 years old Heart Score risk factors: 1-2 risk factors Heart Score troponin: < or = to normal limit Heart Score Total: 4 <Laina Andres DO - Last Filed: 04/16/22 08:32> HEART Score Heart Score Total: 4 Course <FABIANA Gruber Last Filed: 04/15/22 20:54> Course Course Narrative: Patient's CT scan returned without clear evidence of pancreatitis on scan, however his lipase elevation and history and symptoms are consistent with this. CT did also note ground-glass opacities which were not significantly changed from the study he had 1 week ago. Labs are otherwise not suggestive of an infection/pneumonia. Did discuss this patient with Dr. Dietrich, ED attending, given the patient has had increased difficulty with eating and drinking over the last few days with increased pain, as well as his persistent pain today requiring now multiple doses of Dilaudid do feel that his best plan will be for admission for monitoring and IV fluids as I do not think he will be able to tolerate p.o. fluids at home given his current pancreatitis symptoms. Decision to Admit Date: 04/15/22 Decision to Admit time: 19:00 Orders Ordered: Acetaminophen (Acetaminophen 325 Mg Tablet) 650 mg PO Q6H PRN PRN Reason: Fever/Mild Pain (1-3) Hydrocodone Bitart/Acetaminophen (Hydrocodone/Acet 5/325 Tablet) 1 tab PO Q4H PRN PRN Reason: Pain, Moderate (4-6) Amiodarone HCl (Amiodarone 200 Mg Tablet) 200 mg PO DAILY [facility] Dextrose (Dextrose 50 % In Water 25 Gm/50 Ml Syringe) 25 gm IV PRN PRN PRN Reason: Hypoglycemia Enoxaparin Sodium (Enoxaparin 40 Mg/0.4 Ml Syringe) 40 mg SUBCUT DAILY [facility] Hydromorphone HCl (Hydromorphone 0.5 Mg Inj) 1 mg IV Q4H PRN PRN Reason: Pain, Severe (7-10) Last Admin: 04/15/22 22:26 Dose: 1 mg Documented By: Sodium Chloride (Normal Saline 0.45%) 1,000 mls @ 100 mls/hr IV CONT KATHY Last Admin: 04/16/22 08:11 Dose: 100 mls/hr Documented By: Infusion: 04/16/22 07:49 Dose: 100 mls/hr Documented By: Admin: 04/15/22 21:49 Dose: 100 mls/hr Documented By: Insulin Human Lispro (Insulin Lispro 100 Unit/Ml 3ml Vial) 0 unit SUBCUT Q6H KATHY; Protocol Last Admin: 04/16/22 03:31 Dose: 1 unit Documented By: Co-signed By: Admin: 04/15/22 23:24 Dose: 2 unit Documented By: Co-signed By: AKNiranjan Lisinopril (Lisinopril 5 Mg Tablet) 2.5 mg PO DAILY [facility] Lorazepam (Lorazepam 2 Mg/Ml Inj) 1 mg IV Q6HR PRN PRN Reason: Anxiety Last Admin: 04/15/22 22:43 Dose: 1 mg Documented By: Metoprolol Tartrate (Metoprolol Ir 50 Mg Tablet) 50 mg PO BID [facility] Naloxone HCl (Naloxone 0.4 Mg/Ml Vial) 0.2 mg IV Q2MIN PRN PRN Reason: Opiate Reversal Lipase-Protease- Amylase [Creon] 24, 000-76,000 -120,000 Unit Caps 1 cap PO QID [facility] Ondansetron HCl (Ondansetron 4 Mg/2 Ml Inj) 4 mg IV Q6HR PRN PRN Reason: Nausea And Vomiting Prochlorperazine (Prochlorperazine 10 Mg/2 Ml Vial) 10 mg IV Q6HR PRN PRN Reason: Nausea Promethazine HCl (Promethazine 25 Mg Supp) 25 mg AR Q6HR PRN PRN Reason: Nausea Trazodone HCl (Trazodone 50 Mg Tablet) 50 mg PO BEDTIME PRN PRN Reason: insomnia Last Admin: 04/15/22 22:43 Dose: 50 mg Documented By: MS Discontinued Medications Aspirin (Aspirin 81 Mg Chew Tab) 324 mg PO NOW ONE Stop: 04/15/22 14:57 Last Admin: 04/15/22 15:27 Dose: Not Given Documented By: SB Diphenhydramine HCl (Diphenhydramine 50 Mg/Ml Vial) 50 mg IV NOW ONE Stop: 04/15/22 16:44 Last Admin: 04/15/22 16:54 Dose: 50 mg Documented By: TAQUERIA Hydromorphone HCl (Hydromorphone 1 Mg Inj) 1 mg IV NOW ONE Stop: 04/15/22 16:31 Last Admin: 04/15/22 16:53 Dose: 1 mg Documented By: RL Hydromorphone HCl (Hydromorphone 1 Mg Inj) 1 mg IV NOW ONE Stop: 04/15/22 19:04 Last Admin: 04/15/22 19:06 Dose: 1 mg Documented By: RB Sodium Chloride (Normal Saline 0.9%) 1,000 mls @ 1,000 mls/hr IV BOLUS ONE Stop: 04/15/22 17:29 Last Infusion: 04/15/22 19:03 Dose: 0 mls/hr Documented By: Infusion: 04/15/22 18:14 Dose: 1,000 mls/hr Documented By: Infusion: 04/15/22 17:36 Dose: 0 mls/hr Documented By: Admin: 04/15/22 16:53 Dose: 1,000 mls/hr Documented By: RL Sodium Chloride (Normal Saline 0.9%) 1,000 mls @ 1,000 mls/hr IV BOLUS ONE Stop: 04/15/22 20:04 Last Infusion: 04/15/22 20:25 Dose: 0 mls/hr Documented By: Admin: 04/15/22 19:07 Dose: 1,000 mls/hr Documented By: RB Magnesium Sulfate (Magnesium Sulfate) 2 gm in 50 mls @ 25 mls/hr IV NOW ONE Stop: 04/15/22 21:49 Last Infusion: 04/15/22 21:09 Dose: 25 mls/hr Documented By: MS Co-signed By: DESMOND Infusion: 04/15/22 20:55 Dose: 0 mls/hr Documented By: SB Co-signed By: GC Admin: 04/15/22 20:19 Dose: 25 mls/hr Documented By: SB Co-signed By: RB Methylprednisolone (Methylprednisolone 125 Mg/2 Ml Vial) 125 mg IV NOW ONE Stop: 04/15/22 16:44 Last Admin: 04/15/22 16:54 Dose: 125 mg Documented By: RL Metoprolol Succinate (Metoprolol Er 50 Mg Tablet) 100 mg PO DAILY [facility] Metoprolol Tartrate (Metoprolol Ir 25 Mg Tablet) 12.5 mg PO BID KATHY Last Admin: 04/16/22 02:47 Dose: Not Given Documented By: VH Morphine Sulfate (Morphine 4 Mg/Ml Inj) 4 mg IV NOW ONE Stop: 04/15/22 15:21 Last Admin: 04/15/22 15:48 Dose: 4 mg Documented By: SB Ondansetron HCl (Ondansetron 4 Mg/2 Ml Inj) 4 mg IV NOW ONE Stop: 04/15/22 20:10 Last Admin: 04/15/22 20:17 Dose: Not Given Documented By: SB Prochlorperazine (Prochlorperazine 25 Mg Supp) 25 mg AR Q6HR PRN PRN Reason: Nausea Promethazine HCl (Promethazine 25 Mg Tablet) 25 mg PO NOW ONE Stop: 04/15/22 16:31 Last Admin: 04/15/22 16:46 Dose: 25 mg Documented By: RL Reevaluation(s) Reevaluation #1: Early in the patient's ED course after receiving morphine patient did note that he had a little bit of redness at his IV site in the right hand. This was very mild with no hives or inflammation. He is not previously had an allergic reaction to morphine. And IV appeared to be patent. After patient received CT scan with IV contrast after premedication with Solu-Medrol and Benadryl he was noted to have an increased area of swelling and redness in his right wrist at the site of the IV. The RN pull the IUD due to this. Re-evaluated the area and it does appear to be a localized reaction suspect this is due to contrast allergy. We will continue to monitor and not providing any additional antihist amines or steroids at this time. Time: 17:35 Vital Signs Vital signs: Vital Signs - 8 hr 04/15/22 14:44 04/15/22 15:17 04/15/22 15:17 Temperature 97.6 F Pulse Rate 78 72 Respiratory Rate 18 23 Blood Pressure 142/76 H 113/57 L Pulse Oximetry 98 97 Oxygen Delivery Method Room Air 04/15/22 15:30 04/15/22 15:54 04/15/22 15:54 Temperature Pulse Rate 72 75 Respiratory Rate 27 H 37 H Blood Pressure 129/63 Pulse Oximetry 97 97 Oxygen Delivery Method 04/15/22 16:00 04/15/22 16:00 04/15/22 16:30 Temperature Pulse Rate 74 Respiratory Rate 29 H Blood Pressure 115/58 L 121/80 Pulse Oximetry 96 Oxygen Delivery Method 04/15/22 16:30 04/15/22 17:00 04/15/22 17:52 Temperature Pulse Rate 77 78 76 Respiratory Rate 32 H 33 H Blood Pressure Pulse Oximetry 97 95 Oxygen Delivery Method 04/15/22 18:00 04/15/22 18:02 04/15/22 18:02 Temperature Pulse Rate 76 77 Respiratory Rate 24 Blood Pressure 113/67 Pulse Oximetry 97 Oxygen Delivery Method 04/15/22 18:30 04/15/22 18:30 04/15/22 19:00 Temperature Pulse Rate 78 Respiratory Rate Blood Pressure 112/58 L 113/63 Pulse Oximetry 94 Oxygen Delivery Method 04/15/22 19:00 04/15/22 19:30 04/15/22 19:30 Temperature Pulse Rate 80 82 Respiratory Rate 19 Blood Pressure 117/65 Pulse Oximetry 96 95 Oxygen Delivery Method <Laina Andres, - Last Filed: 04/16/22 08:32> Orders Ordered: Acetaminophen (Acetaminophen 325 Mg Tablet) 650 mg PO Q6H PRN PRN Reason: Fever/Mild Pain (1-3) Hydrocodone Bitart/Acetaminophen (Hydrocodone/Acet 5/325 Tablet) 1 tab PO Q4H PRN PRN Reason: Pain, Moderate (4-6) Amiodarone HCl (Amiodarone 200 Mg Tablet) 200 mg PO DAILY KATHY Dextrose (Dextrose 50 % In Water 25 Gm/50 Ml Syringe) 25 gm IV PRN PRN PRN Reason: Hypoglycemia Enoxaparin Sodium (Enoxaparin 40 Mg/0.4 Ml Syringe) 40 mg SUBCUT DAILY [facility] Hydromorphone HCl (Hydromorphone 0.5 Mg Inj) 1 mg IV Q4H PRN PRN Reason: Pain, Severe (7-10) Last Admin: 04/15/22 22:26 Dose: 1 mg Documented By: Sodium Chloride (Normal Saline 0.45%) 1,000 mls @ 100 mls/hr IV CONT KATHY Last Admin: 04/16/22 08:11 Dose: 100 mls/hr Documented By: Infusion: 04/16/22 07:49 Dose: 100 mls/hr Documented By: Admin: 04/15/22 21:49 Dose: 100 mls/hr Documented By: Insulin Human Lispro (Insulin Lispro 100 Unit/Ml 3ml Vial) 0 unit SUBCUT Q6H [facility]; Protocol Last Admin: 04/16/22 03:31 Dose: 1 unit Documented By: Co-signed By: VH Admin: 04/15/22 23:24 Dose: 2 unit Documented By: Co-signed By: AKP Lisinopril (Lisinopril 5 Mg Tablet) 2.5 mg PO DAILY [facility] Lorazepam (Lorazepam 2 Mg/Ml Inj) 1 mg IV Q6HR PRN PRN Reason: Anxiety Last Admin: 04/15/22 22:43 Dose: 1 mg Documented By: Metoprolol Tartrate (Metoprolol Ir 50 Mg Tablet) 50 mg PO BID [facility] Naloxone HCl (Naloxone 0.4 Mg/Ml Vial) 0.2 mg IV Q2MIN PRN PRN Reason: Opiate Reversal Lipase-Protease- Amylase [Creon] 24, 000-76,000 -120,000 Unit Caps 1 cap PO QID [facility] Ondansetron HCl (Ondansetron 4 Mg/2 Ml Inj) 4 mg IV Q6HR PRN PRN Reason: Nausea And Vomiting Prochlorperazine (Prochlorperazine 10 Mg/2 Ml Vial) 10 mg IV Q6HR PRN PRN Reason: Nausea Promethazine HCl (Promethazine 25 Mg Supp) 25 mg AR Q6HR PRN PRN Reason: Nausea Trazodone HCl (Trazodone 50 Mg Tablet) 50 mg PO BEDTIME PRN PRN Reason: insomnia Last Admin: 04/15/22 22:43 Dose: 50 mg Documented By: MS Discontinued Medications Aspirin (Aspirin 81 Mg Chew Tab) 324 mg PO NOW ONE Stop: 04/15/22 14:57 Last Admin: 04/15/22 15:27 Dose: Not Given Documented By: DEVYN Diphenhydramine HCl (Diphenhydramine 50 Mg/Ml Vial) 50 mg IV NOW ONE Stop: 04/15/22 16:44 Last Admin: 04/15/22 16:54 Dose: 50 mg Documented By: RL Hydromorphone HCl (Hydromorphone 1 Mg Inj) 1 mg IV NOW ONE Stop: 04/15/22 16:31 Last Admin: 04/15/22 16:53 Dose: 1 mg Documented By: TAQUREIA Hydromorphone HCl (Hydromorphone 1 Mg Inj) 1 mg IV NOW ONE Stop: 04/15/22 19:04 Last Admin: 04/15/22 19:06 Dose: 1 mg Documented By: RB Sodium Chloride (Normal Saline 0.9%) 1,000 mls @ 1,000 mls/hr IV BOLUS ONE Stop: 04/15/22 17:29 Last Infusion: 04/15/22 19:03 Dose: 0 mls/hr Documented By: Infusion: 04/15/22 18:14 Dose: 1,000 mls/hr Documented By: Infusion: 04/15/22 17:36 Dose: 0 mls/hr Documented By: Admin: 04/15/22 16:53 Dose: 1,000 mls/hr Documented By: TAQUERIA Sodium Chloride (Normal Saline 0.9%) 1,000 mls @ 1,000 mls/hr IV BOLUS ONE Stop: 04/15/22 20:04 Last Infusion: 04/15/22 20:25 Dose: 0 mls/hr Documented By: Admin: 04/15/22 19:07 Dose: 1,000 mls/hr Documented By: RB Magnesium Sulfate (Magnesium Sulfate) 2 gm in 50 mls @ 25 mls/hr IV NOW ONE Stop: 04/15/22 21:49 Last Infusion: 04/15/22 21:09 Dose: 25 mls/hr Documented By: MS Co-signed By: DESMOND Infusion: 04/15/22 20:55 Dose: 0 mls/hr Documented By: SB Co-signed By: GC Admin: 04/15/22 20:19 Dose: 25 mls/hr Documented By: SB Co-signed By: RB Methylprednisolone (Methylprednisolone 125 Mg/2 Ml Vial) 125 mg IV NOW ONE Stop: 04/15/22 16:44 Last Admin: 04/15/22 16:54 Dose: 125 mg Documented By: RL Metoprolol Succinate (Metoprolol Er 50 Mg Tablet) 100 mg PO DAILY [facility] Metoprolol Tartrate (Metoprolol Ir 25 Mg Tablet) 12.5 mg PO BID KATHY Last Admin: 04/16/22 02:47 Dose: Not Given Documented By: VH Morphine Sulfate (Morphine 4 Mg/Ml Inj) 4 mg IV NOW ONE Stop: 04/15/22 15:21 Last Admin: 04/15/22 15:48 Dose: 4 mg Documented By: SB Ondansetron HCl (Ondansetron 4 Mg/2 Ml Inj) 4 mg IV NOW ONE Stop: 04/15/22 20:10 Last Admin: 04/15/22 20:17 Dose: Not Given Documented By: SB Prochlorperazine (Prochlorperazine 25 Mg Supp) 25 mg AR Q6HR PRN PRN Reason: Nausea Promethazine HCl (Promethazine 25 Mg Tablet) 25 mg PO NOW ONE Stop: 04/15/22 16:31 Last Admin: 04/15/22 16:46 Dose: 25 mg Documented By: RL Vital Signs Vital signs: Vital Signs - 8 hr 04/15/22 14:44 04/15/22 15:17 04/15/22 15:17 Temperature 97.6 F Pulse Rate 78 72 Respiratory Rate 18 23 Blood Pressure 142/76 H 113/57 L Pulse Oximetry 98 97 Oxygen Delivery Method Room Air 04/15/22 15:30 04/15/22 15:54 04/15/22 15:54 Temperature Pulse Rate 72 75 Respiratory Rate 27 H 37 H Blood Pressure 129/63 Pulse Oximetry 97 97 Oxygen Delivery Method 04/15/22 16:00 04/15/22 16:00 04/15/22 16:30 Temperature Pulse Rate 74 Respiratory Rate 29 H Blood Pressure 115/58 L 121/80 Pulse Oximetry 96 Oxygen Delivery Method 04/15/22 16:30 04/15/22 17:00 04/15/22 17:52 Temperature Pulse Rate 77 78 76 Respiratory Rate 32 H 33 H Blood Pressure Pulse Oximetry 97 95 Oxygen Delivery Method 04/15/22 18:00 04/15/22 18:02 04/15/22 18:02 Temperature Pulse Rate 76 77 Respiratory Rate 24 Blood Pressure 113/67 Pulse Oximetry 97 Oxygen Delivery Method 04/15/22 18:30 04/15/22 18:30 04/15/22 19:00 Temperature Pulse Rate 78 Respiratory Rate Blood Pressure 112/58 L 113/63 Pulse Oximetry 94 Oxygen Delivery Method 04/15/22 19:00 04/15/22 19:30 04/15/22 19:30 Temperature Pulse Rate 80 82 Respiratory Rate 19 Blood Pressure 117/65 Pulse Oximetry 96 95 Oxygen Delivery Method MDM - Chest Pain <Brigida Ortiz PA-C - Last Filed: 04/15/22 20:54> Medical Records Data Medical records narrative: I was this patient is provider during his emergency department stay. I discussed this patient's history presentation and disposition with Dr. Andres and Dr. Dietrich attending physicians in the emergency department. Lab Data Result diagrams: 04/16/22 05:29 04/16/22 05:29 Labs: Lab Results 04/15/22 04/15/22 04/15/22 Range/Units 15:03 15:03 15:11 WBC 5.9 (4.5-11.0) X10^3/uL RBC 4.55 (4.5-5.9) X10^6/uL Hgb 13.4 L (13.5-17.5) g/dL Hct 40.3 L (41-53) % MCV 88.6 (80-100) fL MCH 29.4 (26-34) PG MCHC 33.2 (30-36) % RDW 14.3 (11.6-14.8) % Plt Count 319 (150-400) X10^3/uL Neut % (Auto) 59.3 (50-75) % Lymph % (Auto) 25.7 (25-40) % [place] % (Auto) 7.6 (3-14) % Eos % (Auto) 6.4 H (2-4) % Baso % (Auto) 1.0 (0-2) % Neut # (Auto) 3500 (6964-4826) /uL Lymph # (Auto) 1500 (6124-8857) /uL [place] # (Auto) 400 (0-900) /uL Eos # (Auto) 400 (0-450) /uL Baso # (Auto) 100 (0-100) /uL PT (10.1-12.7) SECONDS INR (0.9-1.3) APTT (26-36) SECONDS D-Dimer 321 (<500) ng/ml Sodium (137-145) mmol/L Potassium (3.4-5.1) mmol/L Chloride (98-107) mmol/L Carbon Dioxide (22-32) mmol/L BUN (9-20) mg/dL Creatinine (0.66-1.25) mg/dL Estimated GFR (>60) mL/min BUN/Creatinine Ratio (6-22) Glucose (80-110) mg/dL Calcium (8.4-10.2) mg/dL Magnesium (1.6-2.3) mg/dL Total Bilirubin (0.2-1.3) mg/dL AST (17-59) IU/L ALT (<50) IU/L Alkaline Phosphatase (38-126) U/L Total Creatine Kinase (55-170) U/L CK-MB (CK-2) CK-MB (CK-2) Rel Index Troponin I (0.01-0.034) ng/mL NT-Pro-B Natriuret Pep 55 (<125) pg/mL Total Protein (6.3-8.2) g/dL Albumin (3.5-5.0) g/dL Globulin (1.7-4.1) g/dL Albumin/Globulin Ratio (1.0-2.8) Lipase (23-300) U/L TSH (0.47-4.68) uIU/mL SARS-CoV-2 (PCR) (Negative) Hep Bs Antigen (NEGATIVE) s/c Hepatitis C Antibody (NEGATIVE) s/c HIV 1&2 Ab/P24 Ag 4thGn (NEGATIVE) 04/15/22 04/15/22 04/15/22 Range/Units 15:11 15:11 15:11 WBC (4.5-11.0) X10^3/uL RBC (4.5-5.9) X10^6/uL Hgb (13.5-17.5) g/dL Hct (41-53) % MCV (80-100) fL MCH (26-34) PG MCHC (30-36) % RDW (11.6-14.8) % Plt Count (150-400) X10^3/uL Neut % (Auto) (50-75) % Lymph % (Auto) (25-40) % [place] % (Auto) (3-14) % Eos % (Auto) (2-4) % Baso % (Auto) (0-2) % Neut # (Auto) (9442-3255) /uL Lymph # (Auto) (0181-0248) /uL [place] # (Auto) (0-900) /uL Eos # (Auto) (0-450) /uL Baso # (Auto) (0-100) /uL PT 12.5 (10.1-12.7) SECONDS INR 1.1 (0.9-1.3) APTT 17 L (26-36) SECONDS D-Dimer (<500) ng/ml Sodium 134 L (137-145) mmol/L Potassium 4.8 (3.4-5.1) mmol/L Chloride 100 (98-107) mmol/L Carbon Dioxide 25 (22-32) mmol/L BUN 9 (9-20) mg/dL Creatinine 0.53 L (0.66-1.25) mg/dL Estimated GFR > 60 (>60) mL/min BUN/Creatinine Ratio 17.0 (6-22) Glucose 223 H D (80-110) mg/dL Calcium 8.5 (8.4-10.2) mg/dL Magnesium 1.5 L (1.6-2.3) mg/dL Total Bilirubin 0.5 (0.2-1.3) mg/dL AST 32 (17-59) IU/L ALT 26 (<50) IU/L Alkaline Phosphatase 75 (38-126) U/L Total Creatine Kinase 45 L (55-170) U/L CK-MB (CK-2) TNP CK-MB (CK-2) Rel Index TNP Troponin I < 0.012 (0.01-0.034) ng/mL NT-Pro-B Natriuret Pep (<125) pg/mL Total Protein 7.2 (6.3-8.2) g/dL Albumin 4.2 (3.5-5.0) g/dL Globulin 3.0 (1.7-4.1) g/dL Albumin/Globulin Ratio 1.4 (1.0-2.8) Lipase 810 H D (23-300) U/L TSH (0.47-4.68) uIU/mL SARS-CoV-2 (PCR) Negative (Negative) Hep Bs Antigen (NEGATIVE) s/c Hepatitis C Antibody (NEGATIVE) s/c HIV 1&2 Ab/P24 Ag 4thGn (NEGATIVE) 04/15/22 04/15/22 04/15/22 Range/Units 15:11 15:11 18:24 WBC (4.5-11.0) X10^3/uL RBC (4.5-5.9) X10^6/uL Hgb (13.5-17.5) g/dL Hct (41-53) % MCV (80-100) fL MCH (26-34) PG MCHC (30-36) % RDW (11.6-14.8) % Plt Count (150-400) X10^3/uL Neut % (Auto) (50-75) % Lymph % (Auto) (25-40) % [place] % (Auto) (3-14) % Eos % (Auto) (2-4) % Baso % (Auto) (0-2) % Neut # (Auto) (1580-1420) /uL Lymph # (Auto) (8324-6112) /uL [place] # (Auto) (0-900) /uL Eos # (Auto) (0-450) /uL Baso # (Auto) (0-100) /uL PT (10.1-12.7) SECONDS INR (0.9-1.3) APTT (26-36) SECONDS D-Dimer (<500) ng/ml Sodium (137-145) mmol/L Potassium (3.4-5.1) mmol/L Chloride (98-107) mmol/L Carbon Dioxide (22-32) mmol/L BUN (9-20) mg/dL Creatinine (0.66-1.25) mg/dL Estimated GFR (>60) mL/min BUN/Creatinine Ratio (6-22) Glucose (80-110) mg/dL Calcium (8.4-10.2) mg/dL Magnesium 1.5 L (1.6-2.3) mg/dL Total Bilirubin (0.2-1.3) mg/dL AST (17-59) IU/L ALT (<50) IU/L Alkaline Phosphatase (38-126) U/L Total Creatine Kinase (55-170) U/L CK-MB (CK-2) CK-MB (CK-2) Rel Index Troponin I < 0.012 (0.01-0.034) ng/mL NT-Pro-B Natriuret Pep (<125) pg/mL Total Protein (6.3-8.2) g/dL Albumin (3.5-5.0) g/dL Globulin (1.7-4.1) g/dL Albumin/Globulin Ratio (1.0-2.8) Lipase (23-300) U/L TSH 1.45 D (0.47-4.68) uIU/mL SARS-CoV-2 (PCR) (Negative) Hep Bs Antigen (NEGATIVE) s/c Hepatitis C Antibody (NEGATIVE) s/c HIV 1&2 Ab/P24 Ag 4thGn (NEGATIVE) 04/15/22 04/15/22 Range/Units 19:20 19:20 WBC (4.5-11.0) X10^3/uL RBC (4.5-5.9) X10^6/uL Hgb (13.5-17.5) g/dL Hct (41-53) % MCV (80-100) fL MCH (26-34) PG MCHC (30-36) % RDW (11.6-14.8) % Plt Count (150-400) X10^3/uL Neut % (Auto) (50-75) % Lymph % (Auto) (25-40) % [place] % (Auto) (3-14) % Eos % (Auto) (2-4) % Baso % (Auto) (0-2) % Neut # (Auto) (1993-9377) /uL Lymph # (Auto) (6608-0603) /uL Ad[place] # (Auto) (0-900) /uL Eos # (Auto) (0-450) /uL Baso # (Auto) (0-100) /uL PT (10.1-12.7) SECONDS INR (0.9-1.3) APTT (26-36) SECONDS D-Dimer (<500) ng/ml Sodium (137-145) mmol/L Potassium (3.4-5.1) mmol/L Chloride (98-107) mmol/L Carbon Dioxide (22-32) mmol/L BUN (9-20) mg/dL Creatinine (0.66-1.25) mg/dL Estimated GFR (>60) mL/min BUN/Creatinine Ratio (6-22) Glucose (80-110) mg/dL Calcium (8.4-10.2) mg/dL Magnesium (1.6-2.3) mg/dL Total Bilirubin (0.2-1.3) mg/dL AST (17-59) IU/L ALT 27 (<50) IU/L Alkaline Phosphatase (38-126) U/L Total Creatine Kinase (55-170) U/L CK-MB (CK-2) CK-MB (CK-2) Rel Index Troponin I (0.01-0.034) ng/mL NT-Pro-B Natriuret Pep (<125) pg/mL Total Protein (6.3-8.2) g/dL Albumin (3.5-5.0) g/dL Globulin (1.7-4.1) g/dL Albumin/Globulin Ratio (1.0-2.8) Lipase (23-300) U/L TSH (0.47-4.68) uIU/mL SARS-CoV-2 (PCR) (Negative) Hep Bs Antigen Negative (NEGATIVE) s/c Hepatitis C Antibody Negative (NEGATIVE) s/c HIV 1&2 Ab/P24 Ag 4thGn Negative (NEGATIVE) Point of Care Testing Glucose POC [address] scan - abdomen/pelvis: Radiologist's Impression: [address] [address] [address] Scan Report Signed Patient: Jann Diehl MR#: [id number] : 1955 Acct:[id number] Age/Sex: 67 / M Date of Service: 04/15/22 Loc: ED Accession Number: [id number] ?? Procedure: CT chest abd pel w con Ordering Provider: Brigida Ortiz P.A-C PROCEDURE:? CT CHEST ABD PEL W CON ? INDICATIONS:? eval pancreatitis/ LUQ pain ? TECHNIQUE:? After the administration of oral and intravenous contrast, axial sections acquired from the supraclavicular neck to the pubic symphysis.? Coronal and sagittal reformats were performed.? For radiation dose reduction, the following was used:? automated exposure control, adjustment of mA and/or kV according to patient size.? ? COMPARISON: ? [facility], CT, CT CHEST ABD PEL W CON, 04/10/2022, 21:16. ? FINDINGS:? Image quality:? Excellent.? ? CHEST: Lower Neck: No enlarged lymph nodes.? Thyroid:? Heterogeneous calcification within the left thyroid gland.? No acute changes. Axillae: No enlarged lymph nodes. Chest Wall:? Unremarkable.? ? Lungs and Airways:? Faint right upper lobe ground-glass opacity mainly in the anterior portion.? Scattered faint ground-glass opacities in the right perihilar region, left lower lung and lingula.? Minor left lateral lung base atelectasis.? No other dense consolidations.? Central and peripheral airways are patent. Pleura: No pneumothorax or pleural effusions.? ? Heart: Heart size is normal.? No pericardial effusion.? Mild coronary artery calcification. Thoracic Vessels: The aorta and pulmonary arteries demonstrate normal size.? Mediastinum and Moon: No enlarged lymph nodes.? Esophagus:? Mild circumferential wall thickening.? No hiatal hernia. ? ? ABDOMEN: Liver:? Lobulated liver margin.? No liver mass. Gallbladder:? Surgically absent. Biliary ducts:? Appropriate post cholecystectomy. Pancreas:? Normal.? No peripancreatic inflammation or fluid collections. Spleen:? Normal size. Adrenal Glands:? No nodules. Kidneys and Ureters: Symmetric enhancement.? No nephrolithiasis or hydronephrosis.? No hydroureter. ? Stomach and Bowel:? Increased quantity of solid stool throughout the colon.? Scattered colonic diverticula.? No diverticulitis.? Normal appendix.? Stomach contains ingested material.? Small bowel distally demonstrate signs of stasis.? No bowel dilatat ion. Peritoneum:? No abnormal intraperitoneal fluid.? No free air.? ? Ventral Wall: ? No hernia.? Abdominal Nodes:? No retroperitoneal or mesenteric adenopathy by size criteria.? Vessels:? Aorta and inferior vena cava are normal in size.? Moderate abdominal aortic atherosclerotic calcification.? ? PELVIS: Pelvic Organs:? Mild prostatomegaly. Bladder:? Normal wall thickness.? No stones. Pelvic Nodes:? No enlarged nodes. Miscellaneous:? Surgical changes in both inguinal regions.? No inguinal hernias. ? Bones:? Degenerative disc change in the low lumbar spine.? No suspicious bone lesions. ? IMPRESSION:? ? 1.? No evidence of acute pancreatitis or complication. ? 2.? There are chronic findings of scattered ground-glass opacities in both lungs, right greater than left.? No significant progression from the study one week ago.? Consider atypical infections or inflammation. ? 3.? Colonic obstipation. ? 4. Colonic diverticulosis without acute diverticulitis. ? 5. Heterogeneous thyroid gland.? Dictated by: Pamella Ye M.D. on 04/15/2022 at 17:22 ? ? Approved by: Pamella Ye M.D. on 04/15/2022 at 17:32?? Chest x-ray: Radiologist's Impression: [place] [address] XRay Report Signed Patient: Jann Diehl MR#: [id number] : 1955 Acct:[id number] Age/Sex: 67 / M Date of Service: 04/15/22 Loc: ED Accession Number: [id number] ?? Procedure: XR chest 1V Ordering Provider: aLina Andres D.O. PROCEDURE:? XR CHEST 1V ? INDICATIONS:? chest pain ? TECHNIQUE:? One view of the chest was acquired.? ? COMPARISON:? [facility], , XR CHEST 1V, 04/10/2022, 18:22. ? FINDINGS:? ? Surgical changes and devices:? None.? ? Lungs and pleura:? Lungs are clear.? No pleural effusions or pneumothorax.? ? Mediastinum:? Mediastinal contours appear normal.? Heart size is normal.? ? Bones and chest wall:? No suspicious bony lesions.? Overlying soft tissues appear unremarkable.? ? IMPRESSION:? No acute cardiopulmonary disease.? ? ? Dictated by: Pamella Ye M.D. on 04/15/2022 at 15:45 ? ? Approved by: Pamella Ye M.D. on 04/15/2022 at 15:45?? ECG Data Interpretation: Heart rate 71 normal sinus rhythm, no ST elevation or depression right bundle MDM Narrative Medical decision making narrative: 67-year-old male with complex medical history including diagnosis of pleurisy 5 days ago, additional history of IA, type 1 diabetes, a flutter, electrolyte imbalance, pneumonia, chronic abdominal pain, cholecystectomy presents with co ncern for worsening chest pain over the last 5 days as well as increasing nausea and recent inability to tolerate food or fluids without increased pain. Patient was initially concerned that he could have a pneumonia developing he was hospitalized with a pneumonia in February and had concern for this. Also stated that his symptoms were consistent with previous episodes of pancreatitis which he has not had a problem with since he had his gallbladder removed. On chart review the patient indeed has not had notable elevation of lipase for a few years. He has been taking his pancreatic enzymes and has been following the brat diet assiduously. He is not an alcohol drinker. His exam was consistent with a pancreatitis, cardiac workup was performed including x-rays, EKG, cardiac labs as well as CBC CMP and lipase. These all returned unremarkable including repeat troponins at 2:00 a.m. with the exception of the lipase which was elevated to nearly 850. This is significantly above the patient's baseline and in the setting of his symptoms, history of pancreatitis presume pancreatitis is the cause of his significant pain today. CT scan was also obtained for further evaluation which did not show changes to his lungs from his previous study 5 days ago and also did not show changes associated with pancreatitis. Patient received antiemetic medication, multiple doses of Dilaudid in the emergency department as well as 1 initial dose of morphine was ineffective for pain control, and also received 2 L of fluid while in the emergency department. Discussed this patient with hospitalist CASSIDY Munguia and Dr. Roy and patient was ultimately admitted for observation for pancreatitis. Patient is admitted for observation. <Laina Andres, DO - Last Filed: 04/16/22 08:32> Lab Data Labs: Lab Results 04/15/22 04/15/22 04/15/22 Range/Units 15:03 15:03 15:11 WBC 5.9 (4.5-11.0) X10^3/uL RBC 4.55 (4.5-5.9) X10^6/uL Hgb 13.4 L (13.5-17.5) g/dL Hct 40.3 L (41-53) % MCV 88.6 (80-100) fL MCH 29.4 (26-34) PG MCHC 33.2 (30-36) % RDW 14.3 (11.6-14.8) % Plt Count 319 (150-400) X10^3/uL Neut % (Auto) 59.3 (50-75) % Lymph % (Auto) 25.7 (25-40) % Adair % (Auto) 7.6 (3-14) % Eos % (Auto) 6.4 H (2-4) % Baso % (Auto) 1.0 (0-2) % Neut # (Auto) 3500 (5493-6741) /uL Lymph # (Auto) 1500 (4544-4671) /uL Adair # (Auto) 400 (0-900) /uL Eos # (Auto) 400 (0-450) /uL Baso # (Auto) 100 (0-100) /uL PT (10.1-12.7) SECONDS INR (0.9-1.3) APTT (26-36) SECONDS D-Dimer 321 (<500) ng/ml Sodium (137-145) mmol/L Potassium (3.4-5.1) mmol/L Chloride (98-107) mmol/L Carbon Dioxide (22-32) mmol/L BUN (9-20) mg/dL Creatinine (0.66-1.25) mg/dL Estimated GFR (>60) mL/min BUN/Creatinine Ratio (6-22) Glucose (80-110) mg/dL Calcium (8.4-10.2) mg/dL Magnesium (1.6-2.3) mg/dL Total Bilirubin (0.2-1.3) mg/dL AST (17-59) IU/L ALT (<50) IU/L Alkaline Phosphatase (38-126) U/L Total Creatine Kinase (55-170) U/L CK-MB (CK-2) CK-MB (CK-2) Rel Index Troponin I (0.01-0.034) ng/mL NT-Pro-B Natriuret Pep 55 (<125) pg/mL Total Protein (6.3-8.2) g/dL Albumin (3.5-5.0) g/dL Globulin (1.7-4.1) g/dL Albumin/Globulin Ratio (1.0-2.8) Lipase (23-300) U/L TSH (0.47-4.68) uIU/mL SARS-CoV-2 (PCR) (Negative) Hep Bs Antigen (NEGATIVE) s/c Hepatitis C Antibody (NEGATIVE) s/c HIV 1&2 Ab/P24 Ag 4thGn (NEGATIVE) 04/15/22 04/15/22 04/15/22 Range/Units 15:11 15:11 15:11 WBC (4.5-11.0) X10^3/uL RBC (4.5-5.9) X10^6/uL Hgb (13.5-17.5) g/dL Hct (41-53) % MCV (80-100) fL MCH (26-34) PG MCHC (30-36) % RDW (11.6-14.8) % Plt Count (150-400) X10^3/uL Neut % (Auto) (50-75) % Lymph % (Auto) (25-40) % [place] % (Auto) (3-14) % Eos % (Auto) (2-4) % Baso % (Auto) (0-2) % Neut # (Auto) (0182-6490) /uL Lymph # (Auto) (2047-6870) /uL Adair # (Auto) (0-900) /uL Eos # (Auto) (0-450) /uL Baso # (Auto) (0-100) /uL PT 12.5 (10.1-12.7) SECONDS INR 1.1 (0.9-1.3) APTT 17 L (26-36) SECONDS D-Dimer (<500) ng/ml Sodium 134 L (137-145) mmol/L Potassium 4.8 (3.4-5.1) mmol/L Chloride 100 (98-107) mmol/L Carbon Dioxide 25 (22-32) mmol/L BUN 9 (9-20) mg/dL Creatinine 0.53 L (0.66-1.25) mg/dL Estimated GFR > 60 (>60) mL/min BUN/Creatinine Ratio 17.0 (6-22) Glucose 223 H D (80-110) mg/dL Calcium 8.5 (8.4-10.2) mg/dL Magnesium 1.5 L (1.6-2.3) mg/dL Total Bilirubin 0.5 (0.2-1.3) mg/dL AST 32 (17-59) IU/L ALT 26 (<50) IU/L Alkaline Phosphatase 75 (38-126) U/L Total Creatine Kinase 45 L (55-170) U/L CK-MB (CK-2) TNP CK-MB (CK-2) Rel Index TNP Troponin I < 0.012 (0.01-0.034) ng/mL NT-Pro-B Natriuret Pep (<125) pg/mL Total Protein 7.2 (6.3-8.2) g/dL Albumin 4.2 (3.5-5.0) g/dL Globulin 3.0 (1.7-4.1) g/dL Albumin/Globulin Ratio 1.4 (1.0-2.8) Lipase 810 H D (23-300) U/L TSH (0.47-4.68) uIU/mL SARS-CoV-2 (PCR) Negative (Negative) Hep Bs Antigen (NEGATIVE) s/c Hepatitis C Antibody (NEGATIVE) s/c HIV 1&2 Ab/P24 Ag 4thGn (NEGATIVE) 04/15/22 04/15/22 04/15/22 Range/Units 15:11 15:11 18:24 WBC (4.5-11.0) X10^3/uL RBC (4.5-5.9) X10^6/uL Hgb (13.5-17.5) g/dL Hct (41-53) % MCV (80-100) fL MCH (26-34) PG MCHC (30-36) % RDW (11.6-14.8) % Plt Count (150-400) X10^3/uL Neut % (Auto) (50-75) % Lymph % (Auto) (25-40) % [place] % (Auto) (3-14) % Eos % (Auto) (2-4) % Baso % (Auto) (0-2) % Neut # (Auto) (9028-0748) /uL Lymph # (Auto) (5005-0752) /uL Adair # (Auto) (0-900) /uL Eos # (Auto) (0-450) /uL Baso # (Auto) (0-100) /uL PT (10.1-12.7) SECONDS INR (0.9-1.3) APTT (26-36) SECONDS D-Dimer (<500) ng/ml Sodium (137-145) mmol/L Potassium (3.4-5.1) mmol/L Chloride (98-107) mmol/L Carbon Dioxide (22-32) mmol/L BUN (9-20) mg/dL Creatinine (0.66-1.25) mg/dL Estimated GFR (>60) mL/min BUN/Creatinine Ratio (6-22) Glucose (80-110) mg/dL Calcium (8.4-10.2) mg/dL Magnesium 1.5 L (1.6-2.3) mg/dL Total Bilirubin (0.2-1.3) mg/dL AST (17-59) IU/L ALT (<50) IU/L Alkaline Phosphatase (38-126) U/L Total Creatine Kinase (55-170) U/L CK-MB (CK-2) CK-MB (CK-2) Rel Index Troponin I < 0.012 (0.01-0.034) ng/mL NT-Pro-B Natriuret Pep (<125) pg/mL Total Protein (6.3-8.2) g/dL Albumin (3.5-5.0) g/dL Globulin (1.7-4.1) g/dL Albumin/Globulin Ratio (1.0-2.8) Lipase (23-300) U/L TSH 1.45 D (0.47-4.68) uIU/mL SARS-CoV-2 (PCR) (Negative) Hep Bs Antigen (NEGATIVE) s/c Hepatitis C Antibody (NEGATIVE) s/c HIV 1&2 Ab/P24 Ag 4thGn (NEGATIVE) 04/15/22 04/15/22 Range/Units 19:20 19:20 WBC (4.5-11.0) X10^3/uL RBC (4.5-5.9) X10^6/uL Hgb (13.5-17.5) g/dL Hct (41-53) % MCV (80-100) fL MCH (26-34) PG MCHC (30-36) % RDW (11.6-14.8) % Plt Count (150-400) X10^3/uL Neut % (Auto) (50-75) % Lymph % (Auto) (25-40) % [place] % (Auto) (3-14) % Eos % (Auto) (2-4) % Baso % (Auto) (0-2) % Neut # (Auto) (5132-6185) /uL Lymph # (Auto) (2168-0768) /uL [place]air # (Auto) (0-900) /uL Eos # (Auto) (0-450) /uL Baso # (Auto) (0-100) /uL PT (10.1-12.7) SECONDS INR (0.9-1.3) APTT (26-36) SECONDS D-Dimer (<500) ng/ml Sodium (137-145) mmol/L Potassium (3.4-5.1) mmol/L Chloride (98-107) mmol/L Carbon Dioxide (22-32) mmol/L BUN (9-20) mg/dL Creatinine (0.66-1.25) mg/dL Estimated GFR (>60) mL/min BUN/Creatinine Ratio (6-22) Glucose (80-110) mg/dL Calcium (8.4-10.2) mg/dL Magnesium (1.6-2.3) mg/dL Total Bilirubin (0.2-1.3) mg/dL AST (17-59) IU/L ALT 27 (<50) IU/L Alkaline Phosphatase (38-126) U/L Total Creatine Kinase (55-170) U/L CK-MB (CK-2) CK-MB (CK-2) Rel Index Troponin I (0.01-0.034) ng/mL NT-Pro-B Natriuret Pep (<125) pg/mL Total Protein (6.3-8.2) g/dL Albumin (3.5-5.0) g/dL Globulin (1.7-4.1) g/dL Albumin/Globulin Ratio (1.0-2.8) Lipase (23-300) U/L TSH (0.47-4.68) uIU/mL SARS-CoV-2 (PCR) (Negative) Hep Bs Antigen Negative (NEGATIVE) s/c Hepatitis C Antibody Negative (NEGATIVE) s/c HIV 1&2 Ab/P24 Ag 4thGn Negative (NEGATIVE) Point of Care Testing Glucose POC 205 ECG Data Interpretation: Heart rate 71 normal sinus rhythm, no ST elevation or depression right bundle Mank: Sinus rhythm rate of 71 AR 150 QRS of 114 QTC 460, no ST elevation or depression noted. Patient's EKG appears similar to prior from 04/10/2022. Discharge Plan Departure Patient Disposition: Admitted as Observation Clinical Impression: Acute pancreatitis Admit Date/Time: 04/15/22 19:52 Admit Provider: Lyudmila Munguia <Laina Andres DO - Last Filed: 04/16/22 08:32> Cosign ED Attending Cosignature Attestation: I was immediately available in the department for consultation. Documentation has been reviewed. Case was discussed, EKGs were reviewed. And patient appears to have pancreatitis the troponins were repeated with his cardiac history. Imaging was obtained as well. Plan with the admission.
[2022-04-15] MEDS: PROMETHAZINE 25 MG TABLET PO (16:46)
[2022-04-15] MEDS: HYDROMORPHONE 1 MG INJ IV ×2 (16:53→19:06)
[2022-04-15] MEDS: SODIUM CHLORIDE 0.9% 1,000 ML 1000 ML IV ×2 (16:53→19:07)
[2022-04-15] MEDS: methylPREDNISolone 125 MG/2 ML VIAL IV (16:54)
[2022-04-15] MEDS: diphenhydrAMINE 50 MG/ML VIAL IV (16:54)
--- NOTE | 2022-04-15 17:34 | PC.NURSE ---
Pt returns from CT with some redness to hand above IV site. This RN flushed IV and pt reports slight burning and some coolness. Able to draw back and get blood. Provider aware.
--- NOTE | 2022-04-15 17:37 | DI.CT.S_ITS ---
PROCEDURE: CT CHEST ABD PEL W CON INDICATIONS: eval pancreatitis/ LUQ pain TECHNIQUE: After the administration of oral and intravenous contrast, axial sections acquired from the supraclavicular neck to the pubic symphysis. Coronal and sagittal reformats were performed. For radiation dose reduction, the following was used: automated exposure control, adjustment of mA and/or kV according to patient size. COMPARISON: [facility], CT, CT CHEST ABD PEL W CON, 04/10/2022, 21:16. FINDINGS: Image quality: Excellent. CHEST: Lower Neck: No enlarged lymph nodes. Thyroid: Heterogeneous calcification within the left thyroid gland. No acute changes. Axillae: No enlarged lymph nodes. Chest Wall: Unremarkable. Lungs and Airways: Faint right upper lobe ground-glass opacity mainly in the anterior portion. Scattered faint ground-glass opacities in the right perihilar region, left lower lung and lingula. Minor left lateral lung base atelectasis. No other dense consolidations. Central and peripheral airways are patent. Pleura: No pneumothorax or pleural effusions. Heart: Heart size is normal. No pericardial effusion. Mild coronary artery calcification. Thoracic Vessels: The aorta and pulmonary arteries demonstrate normal size. Mediastinum and Moon: No enlarged lymph nodes. Esophagus: Mild circumferential wall thickening. No hiatal hernia. ABDOMEN: Liver: Lobulated liver margin. No liver mass. Gallbladder: Surgically absent. Biliary ducts: Appropriate post cholecystectomy. Pancreas: Normal. No peripancreatic inflammation or fluid collections. Spleen: Normal size. Adrenal Glands: No nodules. Kidneys and Ureters: Symmetric enhancement. No nephrolithiasis or hydronephrosis. No hydroureter. Stomach and Bowel: Increased quantity of solid stool throughout the colon. Scattered colonic diverticula. No diverticulitis. Normal appendix. Stomach contains ingested material. Small bowel distally demonstrate signs of stasis. No bowel dilatation. Peritoneum: No abnormal intraperitoneal fluid. No free air. Ventral Wall: No hernia. Abdominal Nodes: No retroperitoneal or mesenteric adenopathy by size criteria. Vessels: Aorta and inferior vena cava are normal in size. Moderate abdominal aortic atherosclerotic calcification. PELVIS: Pelvic Organs: Mild prostatomegaly. Bladder: Normal wall thickness. No stones. Pelvic Nodes: No enlarged nodes. Miscellaneous: Surgical changes in both inguinal regions. No inguinal hernias. Bones: Degenerative disc change in the low lumbar spine. No suspicious bone lesions. IMPRESSION: 1. No evidence of acute pancreatitis or complication. 2. There are chronic findings of scattered ground-glass opacities in both lungs, right greater than left. No significant progression from the study one week ago. Consider atypical infections or inflammation. 3. Colonic obstipation. 4. Colonic diverticulosis without acute diverticulitis. 5. Heterogeneous thyroid gland. Dictated by: Pamella Ye M.D. on 04/15/2022 at 17:22 Approved by: Pamella Ye M.D. on 04/15/2022 at 17:32
[2022-04-15 18:53] LABS: Troponin I < 0.012 ng/mL (0.01-0.034)
[2022-04-15 19:47] LABS: Alanine Aminotransferase 27 IU/L (<50)
[2022-04-15] MEDS: MAGNESIUM SULFATE 2 GM/50 ML PIGGYBACK IV (20:19)
[2022-04-15 21:00] LABS: HIV 1 & 2 Ab/Ag 4th Gen Combo NEGATIVE (NEGATIVE); Hep C Virus Ab w/Reflex Quant NEGATIVE s/c (NEGATIVE); Hepatitis B Surface Antigen NEGATIVE s/c (NEGATIVE)
[2022-04-15 21:31] LABS: Magnesium 1.5 mg/dL (1.6-2.3)
[2022-04-15] MEDS: SODIUM CHLORIDE 0.45% 1,000 ML 100 ML IV (21:49)
[2022-04-15 22:02] LABS: Thyroid Stimulating Hormone 1.45 uIU/mL (0.47-4.68)
[2022-04-15] MEDS: HYDROMORPHONE 0.5 MG INJ 1 MG IV (22:26)
[2022-04-15] MEDS: LORazepam 2 MG/ML INJ 1 MG IV (22:43)
[2022-04-15] MEDS: TRAZODONE 50 MG TABLET PO (22:43)
[2022-04-15] MEDS: INSULIN LISPRO 100 UNIT/ML 3ML VIAL SUBCUT (23:24)
[2022-04-16] VITALS (11 sets, daily range): BP systolic 88–108; BP diastolic 49–76; PULSE 61–84; RESP 14–19; TEMP 35.9–36.7; O2SAT 95–98
--- NOTE | 2022-04-16 01:18 | P.HP_ITS ---
History of Present Illness History of Present Illness Date Patient Seen: 04/15/22 Time Patient Seen: 22:05 Chief complaint: chest pain /pleurisy T-7 Narrative: Alfredo Diehl is a 67-year-old male with a history of paroxysmal atrial fibrillation previously anticoagulated on dabigatran, pancreatic insufficiency, vascular disease with right lower extremity angioplasty, insulin-dependent diabetes, hyperlipidemia, and hypertension presented to the emergency department today with concern for worsening chest pain.? He was seen in the emergency department on Sunday and diagnosed with pleurisy.? He states that since then, his pain moved more from the right over to the left and now occupies the entire chest area especially in the center.? He states he coughed this morning, took a deep breath and had a taste of rot. He has had sweats and chills, but had no f ever when he took his temperature. He states his nausea has been increased although he is not been vomiting, and his chronic 3/10 abdominal pain has been much worse up to an 8 or 10 at times recently.? Patient states that his pain does seem to be positional it is definitely worse if he is lying flat and improved if he is sitting upright.? He has been eating and drinking but states that lately this has been more of a problem and he is had to force himself to eat it seems to make his baseline pain act up.? He last ate a little bit this morning.? He is on the BRAT diet.? He states he has been having normal bowel movements and denies any urinary symptoms. He requests his GI cocktail of up to 6 doses of zofran, 4 mg, rectal promethazine 25 mg, followed by compazine taken w/ativan. Chest x-ray was read as negative. CT of the chest abdomen and pelvis indicated negative findings for acute pancreatitis, chronic findings of scattered ground- glass opacities bilaterally right greater than left, constipation, and colonic diverticulosis without acute diverticulitis. He is afebrile, blood pressure 120/66 heart rate 86 oxygen saturation 97% on room air he weighs 80 kg with a BMI of 25.2. CBC is unremarkable, sodium is mildly low at 134, glucose 223, magnesium 1.5 which has since been repleted, his lipase is 810 and COVID-19 PCR is negative. Patient History Medical History Acute dehydration Atrial flutter with rapid ventricular response Campylobacter enteritis Claudication in peripheral vascular disease Enteritis, enteropathogenic E. coli Exocrine pancreatic insufficiency Gastroenteritis GERD (gastroesophageal reflux disease) History of cardioversion (03/07/21) HTN (hypertension) Hyperlipidemia Insulin dependent diabetes mellitus with complications Narcolepsy Nausea vomiting and diarrhea Pancreatic endocrine tumor Pancreatitis Paroxysmal atrial fibrillation Peripheral vascular disease Psoriasis Sepsis Surgical History H/O exploratory laparotomy History of epididymectomy History of femoropopliteal bypass Hx of biopsy Family & Social History Family History Father Colon cancer Mother Narcolepsy Grandmother Narcolepsy Social History: household members significant other Prior Living Arrangements House Safety & Behavioral: Feels Safe in Current Yes Environment Been Physically Hurt or No Threatened By a Person Tobacco & Substance use: Tobacco type cigarettes Smoking Status Former smoker alcohol intake former alcohol intake frequency 0-2 drinks per day Substance Use Type marijuana Meds Home Medications and Allergies Home Medications Medication Instructions Recorded Confirmed Type clopidogrel 75 mg tablet (Plavix) 75 mg PO QAM ##0 04/15/08 02/25/22 History acetaminophen 325 mg tablet (Pain 500 mg PO Q4HP PRN Pain, Mild 09/25/17 02/25/22 History Relief (acetaminophen)) dabigatran etexilate 150 mg 150 mg PO BID 03/24/18 02/25/22 History capsule (Pradaxa) pravastatin 80 mg tablet 80 mg PO BEDTIME ##0 02/13/19 02/25/22 History lisinopril 2.5 mg tablet 2.5 mg PO QAM blood pressure 04/28/19 02/25/22 History gentamicin 0.3 % eye drops 1 drp EYE-BOTH TID PRN Blepharitis 03/15/20 02/25/22 Rx #5 mL insulin lispro 100 unit/mL See Rx Instructions SUBCUT 03/15/20 02/25/22 History subcutaneous solution (Humalog USEASDIRECTD U-100 Insulin) [id number] 1 cap PO QID #120 caps 03/15/20 02/25/22 Rx 24,000-76,000-120,000 unit capsule,delayed rel (Creon) promethazine 25 mg rectal 25 mg NC Q6H PRN Nausea 06/17/20 02/25/22 History suppository diphenhydramine HCl 12.5 mg/5 mL 12.5 mg (5 mL) PO Q6H PRN nausea 03/15/21 02/25/22 Rx oral elixir and vomiting #500 mL metoprolol tartrate 25 mg tablet 12.5 mg PO BID #60 tabs 03/15/21 02/25/22 Rx azelastine 2 spray intranasal BID 05/30/21 02/25/22 History hydrocodone 5 mg-acetaminophen 325 1 tab PO Q8H PRN pain #10 tabs 05/30/2106/14 Rx mg tablet oxycodone 10 mg tablet 5 mg PO Q4H PRN Pain, Severe (7-10) 05/30/21 02/25/22 History duloxetine 60 mg capsule,delayed 60 mg PO QAM 11/01/21 02/25/22 History release (Cymbalta) ipratropium 20 mcg-albuterol 100 1 puff inhalation Q4H PRN wheezing 11/01/21 02/25/22 History mcg/actuation mist for inhalation (Combivent Respimat) ondansetron 8 mg disintegrating 4 mg PO TID PRN nausea/vomiting 02/25/22 02/25/22 History tablet amiodarone 200 mg tablet 200 mg PO DAILY #90 tabs 03/03/22 Rx metoprolol succinate 100 mg 100 mg PO DAILY #90 tabs 03/03/22 Rx tablet,extended release 24 hr (Toprol XL) trazodone 50 mg tablet 50 mg PO BEDTIME PRN insomnia #30 03/03/22 Rx tabs methylphenidate HCl 20 mg tablet 20 mg PO TID #90 ea 03/23/22 Rx oxycodone-acetaminophen 5 mg-325 1 tab PO Q6H PRN pain #14 tabs 04/10/22 Rx mg tablet Allergies Allergy/AdvReac Type Severity Reaction Status Date / Time Iodine and Iodide Containing Allergy Severe Anaphylaxis Verified 04/10/22 18:24 Produc [IODINE AND IODIDE CONTAINING PRODUC] Sulfa (Sulfonamide Allergy Severe Anaphylaxis Verified 04/10/22 18:24 Antibiotics) [SULFA (SULFONAMIDE ANTIBIOTICS)] gabapentin AdvReac Intermediate Dizziness Verified 04/10/22 18:24 Vaptres-DFI-DiN Reductase AdvReac Intermediate Verified 04/10/22 18:24 Inhibitor metformin AdvReac Mild Verified 04/10/22 18:24 Review of Systems Review of Systems ROS: Yes All systems reviewed with the patient and are negative except as otherwise documented Exam Vital Signs (past 8 hours): - 04/15/22 17:52 04/15/22 18:00 04/15/22 18:02 Temperature Pulse Rate 76 76 77 Respiratory Rate 24 Blood Pressure Pulse Oximetry 97 Oxygen Delivery Method 04/15/22 18:02 04/15/22 18:30 04/15/22 18:30 Temperature Pulse Rate 78 Respiratory Rate Blood Pressure 113/67 112/58 L Pulse Oximetry 94 Oxygen Delivery Method 04/15/22 19:00 04/15/22 19:00 04/15/22 19:30 Temperature Pulse Rate 80 Respiratory Rate Blood Pressure 113/63 117/65 Pulse Oximetry 96 Oxygen Delivery Method 04/15/22 19:30 04/15/22 20:00 04/15/22 20:01 Temperature Pulse Rate 82 85 Respiratory Rate 19 Blood Pressure 121/70 Pulse Oximetry 95 96 Oxygen Delivery Method 04/15/22 20:01 04/15/22 20:21 04/15/22 20:21 Temperature Pulse Rate 89 85 Respiratory Rate 20 Blood Pressure 128/79 Pulse Oximetry 94 96 Oxygen Delivery Method 04/15/22 20:30 04/15/22 20:30 04/15/22 21:15 Temperature 97.8 F Pulse Rate 84 86 Respiratory Rate 31 H 20 Blood Pressure 120/70 120/66 Pulse Oximetry 94 97 Oxygen Delivery Method Room Air 04/15/22 21:04 Temperature Pulse Rate Respiratory Rate Blood Pressure Pulse Oximetry 99 Oxygen Delivery Method Room Air Oxygen Delivery Method Room Air Narrative Exam Narrative: Gen: Alert, oriented, thin 67 y.o. male, NAD HEENT: normocephalic, atraumatic, conjunctiva clear, sclera non-icteric, oral mucosa pink and moist Neck: supple, full ROM, no JVD, trachea is midline Resp: Lungs CTA, non-labored breathing CV: RRR, no murmur or rubs Abd: soft, diffusely tender, normoactive BTs Skin: no lesions or rashes, dry and intact Neuro: Alert and oriented X 4 w/no focal deficits. Speech clear and coherent. Extremities: moves all 4 extremities, is ambulatory, negative Olive?s sign Psyche: normal mood and affect. Objective Labs Result Diagrams: 04/15/22 15:11 04/15/22 15:11 Labs: Laboratory Results - last 24 hr 04/15/22 04/15/22 04/15/22 15:03 15:03 15:11 WBC 5.9 RBC 4.55 Hgb 13.4 L Hct 40.3 L MCV 88.6 MCH 29.4 MCHC 33.2 RDW 14.3 Plt Count 319 Neut % (Auto) 59.3 Lymph % (Auto) 25.7 [place] % (Auto) 7.6 Eos % (Auto) 6.4 H Baso % (Auto) 1.0 Neut # (Auto) 3500 Lymph # (Auto) 1500 [place] # (Auto) 400 Eos # (Auto) 400 Baso # (Auto) 100 PT INR APTT D-Dimer 321 Sodium Potassium Chloride Carbon Dioxide BUN Creatinine Estimated GFR BUN/Creatinine Ratio Glucose Calcium Magnesium Total Bilirubin AST ALT Alkaline Phosphatase Total Creatine Kinase CK-MB (CK-2) CK-MB (CK-2) Rel Index Troponin I NT-Pro-B Natriuret Pep 55 Total Protein Albumin Globulin Albumin/Globulin Ratio Lipase TSH SARS-CoV-2 (PCR) Hep Bs Antigen Hepatitis C Antibody HIV 1&2 Ab/P24 Ag 4thGn 04/15/22 04/15/22 04/15/22 15:11 15:11 15:11 WBC RBC Hgb Hct MCV MCH MCHC RDW Plt Count Neut % (Auto) Lymph % (Auto) [place] % (Auto) Eos % (Auto) Baso % (Auto) Neut # (Auto) Lymph # (Auto) [place] # (Auto) Eos # (Auto) Baso # (Auto) PT 12.5 INR 1.1 APTT 17 L D-Dimer Sodium 134 L Potassium 4.8 Chloride 100 Carbon Dioxide 25 BUN 9 Creatinine 0.53 L Estimated GFR > 60 BUN/Creatinine Ratio 17.0 Glucose 223 H D Calcium 8.5 Magnesium 1.5 L Total Bilirubin 0.5 AST 32 ALT 26 Alkaline Phosphatase 75 Total Creatine Kinase 45 L CK-MB (CK-2) TNP CK-MB (CK-2) Rel Index TNP Troponin I < 0.012 NT-Pro-B Natriuret Pep Total Protein 7.2 Albumin 4.2 Globulin 3.0 Albumin/Globulin Ratio 1.4 Lipase 810 H D TSH SARS-CoV-2 (PCR) Negative Hep Bs Antigen Hepatitis C Antibody HIV 1&2 Ab/P24 Ag 4thGn 04/15/22 04/15/22 04/15/22 15:11 15:11 18:24 WBC RBC Hgb Hct MCV MCH MCHC RDW Plt Count Neut % (Auto) Lymph % (Auto) [place] % (Auto) Eos % (Auto) Baso % (Auto) Neut # (Auto) Lymph # (Auto) [place] # (Auto) Eos # (Auto) Baso # (Auto) PT INR APTT D-Dimer Sodium Potassium Chloride Carbon Dioxide BUN Creatinine Estimated GFR BUN/Creatinine Ratio Glucose Calcium Magnesium 1.5 L Total Bilirubin AST ALT Alkaline Phosphatase Total Creatine Kinase CK-MB (CK-2) CK-MB (CK-2) Rel Index Troponin I < 0.012 NT-Pro-B Natriuret Pep Total Protein Albumin Globulin Albumin/Globulin Ratio Lipase TSH 1.45 D SARS-CoV-2 (PCR) Hep Bs Antigen Hepatitis C Antibody HIV 1&2 Ab/P24 Ag 4thGn 04/15/22 04/15/22 19:20 19:20 WBC RBC Hgb Hct MCV MCH MCHC RDW Plt Count Neut % (Auto) Lymph % (Auto) [place] % (Auto) Eos % (Auto) Baso % (Auto) Neut # (Auto) Lymph # (Auto) [place] # (Auto) Eos # (Auto) Baso # (Auto) PT INR APTT D-Dimer Sodium Potassium Chloride Carbon Dioxide BUN Creatinine Estimated GFR BUN/Creatinine Ratio Glucose Calcium Magnesium Total Bilirubin AST ALT 27 Alkaline Phosphatase Total Creatine Kinase CK-MB (CK-2) CK-MB (CK-2) Rel Index Troponin I NT-Pro-B Natriuret Pep Total Protein Albumin Globulin Albumin/Globulin Ratio Lipase TSH SARS-CoV-2 (PCR) Hep Bs Antigen Negative Hepatitis C Antibody Negative HIV 1&2 Ab/P24 Ag 4thGn Negative Assessment & Plan Assessment & Plan narrative: Alfredo Diehl will be admitted for further workup and treatment of an acute pancreatitis. Acute pancreatitis, present on admission * Lipase was significantly elevated of over 800 * NPO tonight progress to clear diet starting in the morning * Pain control with IV Dilaudid * Nausea and vomiting with Zofran, promethazine and Compazine * He normally takes Creon and this will be continued Insulin-dependent diabetes, chronic * His A1c is pending for the morning * Low-dose correctional insulin Essential hypertension, chronic * Continue home dose of lisinopril, and metoprolol History of atrial flutter * Patient is currently not being anticoagulated * Rhythm control with amiodarone 200 mg p.o. daily Sleep aid * Continue trazodone 50 mg p.o. at bedtime Other independent historians: , Yisel Discussion of results, plan of care with independent HCP/other ED PA Reviewed outside records: Prior ED records VTE Prophylaxis: Wells risk score 0 X Enoxaparin 40 mg subQ once daily Bilateral SCDs Patient is admitted to the inpatient service due to the severity of disease, risks of further disease progression and this stay is expected to exceed 2 midnights. FEN: IV fluids: NS at 100 ml/hour, diet: NPO tonight, progress to clears in the am, labs: CBC, C/BMP, liver enzymes, Mag, PT/INR Consultants None Dispo: probable d/c to home Code status: DNR/okay to intubate as discussed with the patient who identifies his Yisel as his surrogate and POA. [X] I have utilized all available immediate resources to obtain, update, or review of the patient's current medications VTE Deep Vein Thrombosis/Pulmonary Embolism Present on Admission: No MIPS - Admit I confirm the patient?s Advance Care Plan is present, Code status is documented, Surrogate decision maker is in patient?s record: Yes MIPS - DC The patient has current or prior documentation of left ventricular ejection fraction (LVEF) less than 40%, or moderate or severely depressed left ventricular systolic function.: No COVID-19 COVID-19 status: Negative Result date/Date tested (Pos, Neg/Pending): 04/15/22 Quality VTE Deep Vein Thrombosis/Pulmonary Embolism Present on Admission: No
[2022-04-16] MEDS: INSULIN LISPRO 100 UNIT/ML 3ML VIAL SUBCUT ×3 (03:31→15:20)
[2022-04-16 05:57] LABS: Add Manual Diff / Slide Review NO; Basophils Absolute Auto 0 /uL (0-100); Basophils Percent Auto 0.1 % (0-2); Eosinophils Absolute Auto 0 /uL (0-450); Hematocrit 38.6 % (41-53); Hemoglobin 12.7 g/dL (13.5-17.5); Lymphocytes Absolute Auto 700 /uL (1100-4500); Lymphocytes Percent Auto 7.1 % (25-40); Mean Corpuscular Hemoglobin 29.1 PG (26-34); Mean Corpuscular Volume 88.2 fL (80-100); Monocytes Absolute Auto 100 /uL (0-900); Monocytes Percent Auto 0.8 % (3-14); Neutrophils Absolute Auto 8600 /uL (1500-7000); Platelet Count 314 X10^3/uL (150-400); Red Blood Cell Count 4.38 X10^6/uL (4.5-5.9); Red Cell Distribution Width 14.6 % (11.6-14.8); White Blood Cell Count 9.3 X10^3/uL (4.5-11.0)
[2022-04-16 06:07] LABS: Alanine Aminotransferase 28 IU/L (<50); Albumin 3.8 g/dL (3.5-5.0); Albumin Globulin Ratio 1.4 (1.0-2.8); Alkaline Phosphatase 73 U/L (38-126); Aspartate Aminotransferase 28 IU/L (17-59); BUN Creatinine Ratio 21.1 (6-22); Bilirubin Total 0.2 mg/dL (0.2-1.3); Blood Urea Nitrogen 12 mg/dL (9-20); Calcium 8.1 mg/dL (8.4-10.2); Carbon Dioxide 28 mmol/L (22-32); Chloride 100 mmol/L (98-107); Cholesterol 191 mg/dL (140-199); Estimated Glomerular Filt Rate > 60 mL/min (>60); Globulin 2.8 g/dL (1.7-4.1); Glucose 246 mg/dL (80-110); HDL Cholesterol 41 mg/dL (40-60); HEMOLYSIS < 15 (0-50); LDL Cholesterol Calculated 135 mg/dL (<100); Potassium 4.7 mmol/L (3.4-5.1); Sodium 137 mmol/L (137-145); Total Protein 6.6 g/dL (6.3-8.2); Triglycerides 77 mg/dL (35-150)
[2022-04-16 06:10] LABS: Hemoglobin A1C% w Est Avg Glu 8.2 % (4.0-6.0)
[2022-04-16 06:22] LABS: INR 1.2 (0.9-1.3); Prothrombin Time 13.8 SECONDS (10.1-12.7)
[2022-04-16] MEDS: SODIUM CHLORIDE 0.45% 1,000 ML 100 ML IV ×2 (08:11→18:42)
[2022-04-16] MEDS: METOPROLOL IR 50 MG TABLET PO (08:32)
[2022-04-16] MEDS: lisinopriL 5 MG TABLET 2.5 MG PO (08:32)
[2022-04-16] MEDS: AMIODARONE 200 MG TABLET PO (08:35)
[2022-04-16] MEDS: HYDROMORPHONE 1 MG INJ IV ×3 (08:35→18:57)
[2022-04-16] MEDS: ONDANSETRON 4 MG/2 ML INJ IV ×2 (08:35→16:57)
[2022-04-16] MEDS: ENOXAPARIN 40 MG/0.4 ML SYRINGE SUBCUT (08:36)
--- NOTE | 2022-04-16 10:40 | CM.DANOTE ---
DCP: Assessment, 67 yo male admitted to ED via pov, under the care of hospitalist with c/o worstening chest pain. He was seen in the ED on Sunday and was diagnosed then with pleurisy. He is noted to have Acute Pancreatitis, Insulin-dependent diabetes, chronic, Essential HTN with a hx of Atrial flutter. PCP: Eric Huang, and Chava Glodman- [facility] Payor: [facility] This CM met with pt in his room, introduced self and role. Pt A+Ox4, and sitting up in his bed. He confirms that he lives in [facility], with his Yisel, that he drives and that he does not use DME. P: Home with when medically stable. Sharlene Sanchez RN Case Manager Discharge Planning/Care Management CM Discharge Assessment Start: 04/16/22 10:32 Freq: Status: Active Protocol: Document 04/16/22 10:35 BRIDGET (Rec: 04/16/22 10:39 [id number]) Discharge Planning Assessment Assigned Commercial Representative Sharlene Sanchez RN Case Manager Advance Directives? Yes- Advance Directive Advance Directives on File Yes History Provided By Patient,Medical Record Has Patient been admitted in last 30 No days? Prior Living Arrangements House Household Members significant other Type of transporation used prior to Drives own vehicle admit Independent with ADL's Yes Is patient alert and oriented? Yes Caregiver for Another No Comment has cane, does not currently use. Discharge Plan Home Transportation Arrangement or supportive family friend will provide transport. Referrals Initiated None needed Whiteboard Updated in Patient Room with Yes name and ext. # of Commercial Representative Review Status In Process Next Review Type Continued Stay Review
--- NOTE | 2022-04-16 13:43 | PM.PN.1 ---
Subjective Subjective Date Patient Seen: 04/16/22 Interval history: Alfredo Diehl is a 67-year-old male with a history of paroxysmal atrial fibrillation previously anticoagulated on dabigatran, pancreatic insufficiency, vascular disease with right lower extremity angioplasty, insulin-dependent diabetes, hyperlipidemia, and hypertension presented to the emergency department yesterday with concern for worsening chest pain/upper abdominal pain. Pain is better but still persistent. Essentially has no appetite due to the pain. No fever or chills or vomiting. No diaphoresis. Exam Vital Signs (past 8 hours): - 04/16/22 08:32 04/16/22 08:40 04/16/22 09:01 Temperature 97.4 F L Pulse Rate 78 78 Respiratory Rate 19 Blood Pressure 105/76 105/61 Pulse Oximetry 98 Oxygen Delivery Method Room Air Oxygen Flow Rate 0 04/16/22 09:01 04/16/22 12:00 Temperature 97.2 F L Pulse Rate 73 Respiratory Rate 18 Blood Pressure 101/61 Pulse Oximetry 96 95 Oxygen Delivery Method Room Air Oxygen Flow Rate 0 Oxygen Delivery Method Room Air Oxygen Flow Rate 0 Narrative Exam Narrative: Gen: Alert, oriented,? thin male, NAD HEENT: normocephalic, atraumatic, conjunctiva clear, sclera non-icteric Neck: supple, full ROM, no JVD, trachea is midline Resp: Lungs CTA, non-labored breathing CV: RRR, no murmur or rubs Abd: soft, diffusely tende especially left upper quadrant, bowel sounds are scant Skin: no lesions or rashes, dry and intact Neuro: Alert and oriented X 4 w/no focal deficits. Speech clear and coherent. Extremities: moves all 4 extremities, is ambulatory, negative Olive?s sign Psyche: normal mood and affect. Objective Labs Result Diagrams: 04/16/22 05:29 04/16/22 05:29 Labs: Laboratory Results - last 24 hr 04/15/22 04/15/22 04/15/22 15:03 15:03 15:11 WBC 5.9 RBC 4.55 Hgb 13.4 L Hct 40.3 L MCV 88.6 MCH 29.4 MCHC 33.2 RDW 14.3 Plt Count 319 Neut % (Auto) 59.3 Lymph % (Auto) 25.7 [place] % (Auto) 7.6 Eos % (Auto) 6.4 H Baso % (Auto) 1.0 Neut # (Auto) 3500 Lymph # (Auto) 1500 [place] # (Auto) 400 Eos # (Auto) 400 Baso # (Auto) 100 PT INR APTT D-Dimer 321 Sodium Potassium Chloride Carbon Dioxide BUN Creatinine Estimated GFR BUN/Creatinine Ratio Glucose Hemoglobin A1c Calcium Magnesium Total Bilirubin AST ALT Alkaline Phosphatase Total Creatine Kinase CK-MB (CK-2) CK-MB (CK-2) Rel Index Troponin I NT-Pro-B Natriuret Pep 55 Total Protein Albumin Globulin Albumin/Globulin Ratio Triglycerides Cholesterol LDL Cholesterol, Calc HDL Cholesterol Lipase TSH SARS-CoV-2 (PCR) Hep Bs Antigen Hepatitis C Antibody HIV 1&2 Ab/P24 Ag 4thGn 04/15/22 04/15/22 04/15/22 15:11 15:11 15:11 WBC RBC Hgb Hct MCV MCH MCHC RDW Plt Count Neut % (Auto) Lymph % (Auto) [place] % (Auto) Eos % (Auto) Baso % (Auto) Neut # (Auto) Lymph # (Auto) [place] # (Auto) Eos # (Auto) Baso # (Auto) PT 12.5 INR 1.1 APTT 17 L D-Dimer Sodium 134 L Potassium 4.8 Chloride 100 Carbon Dioxide 25 BUN 9 Creatinine 0.53 L Estimated GFR > 60 BUN/Creatinine Ratio 17.0 Glucose 223 H D Hemoglobin A1c Calcium 8.5 Magnesium 1.5 L Total Bilirubin 0.5 AST 32 ALT 26 Alkaline Phosphatase 75 Total Creatine Kinase 45 L CK-MB (CK-2) TNP CK-MB (CK-2) Rel Index TNP Troponin I < 0.012 NT-Pro-B Natriuret Pep Total Protein 7.2 Albumin 4.2 Globulin 3.0 Albumin/Globulin Ratio 1.4 Triglycerides Cholesterol LDL Cholesterol, Calc HDL Cholesterol Lipase 810 H D TSH SARS-CoV-2 (PCR) Negative Hep Bs Antigen Hepatitis C Antibody HIV 1&2 Ab/P24 Ag 4thGn 04/15/22 04/15/22 04/15/22 15:11 15:11 18:24 WBC RBC Hgb Hct MCV MCH MCHC RDW Plt Count Neut % (Auto) Lymph % (Auto) [place] % (Auto) Eos % (Auto) Baso % (Auto) Neut # (Auto) Lymph # (Auto) [place] # (Auto) Eos # (Auto) Baso # (Auto) PT INR APTT D-Dimer Sodium Potassium Chloride Carbon Dioxide BUN Creatinine Estimated GFR BUN/Creatinine Ratio Glucose Hemoglobin A1c Calcium Magnesium 1.5 L Total Bilirubin AST ALT Alkaline Phosphatase Total Creatine Kinase CK-MB (CK-2) CK-MB (CK-2) Rel Index Troponin I < 0.012 NT-Pro-B Natriuret Pep Total Protein Albumin Globulin Albumin/Globulin Ratio Triglycerides Cholesterol LDL Cholesterol, Calc HDL Cholesterol Lipase TSH 1.45 D SARS-CoV-2 (PCR) Hep Bs Antigen Hepatitis C Antibody HIV 1&2 Ab/P24 Ag 4thGn 04/15/22 04/15/22 04/16/22 19:20 19:20 05:29 WBC RBC Hgb Hct MCV MCH MCHC RDW Plt Count Neut % (Auto) Lymph % (Auto) [place] % (Auto) Eos % (Auto) Baso % (Auto) Neut # (Auto) Lymph # (Auto) [place] # (Auto) Eos # (Auto) Baso # (Auto) PT INR APTT D-Dimer Sodium Potassium Chloride Carbon Dioxide BUN Creatinine Estimated GFR BUN/Creatinine Ratio Glucose Hemoglobin A1c 8.2 H Calcium Magnesium Total Bilirubin AST ALT 27 Alkaline Phosphatase Total Creatine Kinase CK-MB (CK-2) CK-MB (CK-2) Rel Index Troponin I NT-Pro-B Natriuret Pep Total Protein Albumin Globulin Albumin/Globulin Ratio Triglycerides Cholesterol LDL Cholesterol, Calc HDL Cholesterol Lipase TSH SARS-CoV-2 (PCR) Hep Bs Antigen Negative Hepatitis C Antibody Negative HIV 1&2 Ab/P24 Ag 4thGn Negative 04/16/22 04/16/22 04/16/22 05:29 05:29 05:29 WBC 9.3 D RBC 4.38 L Hgb 12.7 L Hct 38.6 L MCV 88.2 MCH 29.1 MCHC 33.0 RDW 14.6 Plt Count 314 Neut % (Auto) 92.0 H D Lymph % (Auto) 7.1 L [place] % (Auto) 0.8 L Eos % (Auto) 0.0 L Baso % (Auto) 0.1 Neut # (Auto) 8600 H Lymph # (Auto) 700 L [place] # (Auto) 100 Eos # (Auto) 0 Baso # (Auto) 0 PT 13.8 H INR 1.2 APTT D-Dimer Sodium 137 Potassium 4.7 Chloride 100 Carbon Dioxide 28 BUN 12 Creatinine 0.57 L Estimated GFR > 60 BUN/Creatinine Ratio 21.1 Glucose 246 H Hemoglobin A1c Calcium 8.1 L Magnesium Total Bilirubin 0.2 AST 28 ALT 28 Alkaline Phosphatase 73 Total Creatine Kinase CK-MB (CK-2) CK-MB (CK-2) Rel Index Troponin I NT-Pro-B Natriuret Pep Total Protein 6.6 Albumin 3.8 Globulin 2.8 Albumin/Globulin Ratio 1.4 Triglycerides 77 Cholesterol 191 LDL Cholesterol, Calc 135 H HDL Cholesterol 41 Lipase TSH SARS-CoV-2 (PCR) Hep Bs Antigen Hepatitis C Antibody HIV 1&2 Ab/P24 [address] [place] [address] Medical History Acute dehydration Atrial flutter with rapid ventricular response Campylobacter enteritis Claudication in peripheral vascular disease Enteritis, enteropathogenic E. coli Exocrine pancreatic insufficiency Gastroenteritis GERD (gastroesophageal reflux disease) History of cardioversion (03/07/21) HTN (hypertension) Hyperlipidemia Insulin dependent diabetes mellitus with complications Narcolepsy Nausea vomiting and diarrhea Pancreatic endocrine tumor Pancreatitis Paroxysmal atrial fibrillation Peripheral vascular disease Psoriasis Sepsis Surgical History H/O exploratory laparotomy History of epididymectomy History of femoropopliteal bypass Hx of biopsy Family History Father Colon cancer Mother Narcolepsy Grandmother Narcolepsy Social History household members: significant other Smoking Status: Former smoker alcohol intake: former Assessment & Plan Assessment & Plan narrative: 1. Acute pancreatitis, present on admission Lipase was significantly elevated of over 800. Lipase not measured today, we will follow tomorrow. Progressed to clear diet started this morning Pain control with IV Dilaudid Nausea and vomiting with Zofran, promethazine and Compazine He normally takes Creon and this will be continued 2. Insulin-dependent diabetes, chronic His A1c is 8.2 Low-dose correctional insulin 3. Essential hypertension, chronic Continue home dose of lisinopril, and metoprolol, well controlled. 4. History of atrial flutter Patient is currently not being anticoagulated Rhythm control with amiodarone 200 mg p.o. daily 5. Sleep aid Continue trazodone 50 mg p.o. at bedtime. 6. Elevated creatinine kinase. Continue to follow. On questionably likely from stings or stationary in his recliner chair at home prior to presentation. Follow labs and clinically. VTE Prophylaxis: Enoxaparin 40 mg subQ once daily? Bilateral SCDs Code status: DNR/okay to intubate as discussed with the patient who identifies his , Yisel as his surrogate and POA. Dispo: probable d/c to home Time Spent With Patient Critical Care time: I spent a total of [] minutes of critical care time on this patient's care today; this time is exclusive of procedural time. Quality VTE Deep Vein Thrombosis/Pulmonary Embolism Present on Admission: No
[2022-04-16] MEDS: LIPASE PROTEASE AMYLASE 1 EACH PO ×2 (15:09→16:55)
[2022-04-16] MEDS: HYDROCODONE/ACET 5/325 TABLET 1 TAB PO (16:57)
[2022-04-16] MEDS: PROCHLORPERAZINE 10 MG/2 ML VIAL IV (18:58)
[2022-04-16 21:46] LABS: Magnesium 1.8 mg/dL (1.6-2.3)
[2022-04-16] MEDS: TRAZODONE 50 MG TABLET PO (22:18)
[2022-04-16] MEDS: LORazepam 2 MG/ML INJ 1 MG IV (22:19)
[2022-04-17] VITALS (8 sets, daily range): BP systolic 84–114; BP diastolic 44–62; PULSE 64–75; RESP 14–18; TEMP 35.9–36.7; O2SAT 95–98
[2022-04-17] MEDS: HYDROMORPHONE 1 MG INJ IV ×2 (04:20→10:04)
[2022-04-17] MEDS: SODIUM CHLORIDE 0.45% 1,000 ML 100 ML IV (04:24)
[2022-04-17 05:43] LABS: Add Manual Diff / Slide Review NO; Basophils Absolute Auto 0 /uL (0-100); Basophils Percent Auto 0.3 % (0-2); Eosinophils Absolute Auto 100 /uL (0-450); Eosinophils Percent Auto 2.9 % (2-4); Hematocrit 37.6 % (41-53); Hemoglobin 12.5 g/dL (13.5-17.5); Lymphocytes Absolute Auto 1100 /uL (1100-4500); Lymphocytes Percent Auto 22.8 % (25-40); Mean Corpuscular HGB Conc 33.2 % (30-36); Mean Corpuscular Hemoglobin 29.4 PG (26-34); Mean Corpuscular Volume 88.5 fL (80-100); Monocytes Absolute Auto 400 /uL (0-900); Monocytes Percent Auto 7.3 % (3-14); Neutrophils Absolute Auto 3400 /uL (1500-7000); Neutrophils Percent Auto 66.7 % (50-75); Platelet Count 278 X10^3/uL (150-400); Red Blood Cell Count 4.25 X10^6/uL (4.5-5.9)
[2022-04-17 05:55] LABS: INR 1.2 (0.9-1.3); Prothrombin Time 13.5 SECONDS (10.1-12.7)
[2022-04-17 05:57] LABS: Alanine Aminotransferase 24 IU/L (<50); Albumin 3.5 g/dL (3.5-5.0); Albumin Globulin Ratio 1.3 (1.0-2.8); Alkaline Phosphatase 63 U/L (38-126); Aspartate Aminotransferase 22 IU/L (17-59); BUN Creatinine Ratio 15.1 (6-22); Bilirubin Total 0.3 mg/dL (0.2-1.3); Blood Urea Nitrogen 8 mg/dL (9-20); Calcium 8.5 mg/dL (8.4-10.2); Carbon Dioxide 31 mmol/L (22-32); Chloride 104 mmol/L (98-107); Estimated Glomerular Filt Rate > 60 mL/min (>60); Globulin 2.8 g/dL (1.7-4.1); Glucose 138 mg/dL (80-110); HEMOLYSIS < 15 (0-50); Lipase 68 U/L (23-300); Potassium 4.3 mmol/L (3.4-5.1); Sodium 138 mmol/L (137-145); Total Protein 6.3 g/dL (6.3-8.2)
[2022-04-17 06:07] LABS: Creatine Kinase 31 U/L (55-170)
[2022-04-17 08:04] LABS: Cholesterol 178 mg/dL (140-199); HDL Cholesterol 33 mg/dL (40-60); LDL Cholesterol Calculated 111 mg/dL (<100); Triglycerides 170 mg/dL (35-150)
[2022-04-17] MEDS: LIPASE PROTEASE AMYLASE 1 EACH PO ×4 (08:05→20:20)
--- NOTE | 2022-04-17 09:49 | PC.NURSE ---
Addendum entered by Ashanti Medina R.N. 04/17/22 18:33: increased patients vicodin to 10mg and ordered Percolone 5mg oral in a liquid. This has been given to patient and he denies further pain. Addendum entered by Ashanti Medina R.N. 04/17/22 16:32: Patient just asked for pain medication, explained to him that his dilaudid iv has been discontinued and that he can have vicodin. Given one vicodin and 2 tylenol and he states this wont work. Told patient that I would check on him soon. Addendum entered by Ashanti Medina R.N. 04/17/22 14:57: Patient had a shower. His diet has been changed to a brat diet. IV pain medication d/cd and patient will be on oral pain meds now. His blood sugar was 131 and he refused 1u of insulin. Patient is resting now and denies nausea. Addendum entered by Ashanti Medina R.N. 04/17/22 10:27: Patient will start a brat diet at lunch, we will then see if he can take po pain medications. He is tolerating his routine meds without any nausea or emesis. Patient was not to happy to hear that we wanted to try oral pain medication, CASSIDY Gasca in room at the time. He is calm and agreeable to new changes. Original Note: Assess- Patient is sleepy this morning, he has been given his enzymes before he ate breakfast this morning. BT are present, he is up independently and using the urinal. Resting comfortably.
[2022-04-17] MEDS: AMIODARONE 200 MG TABLET PO (10:04)
[2022-04-17] MEDS: ENOXAPARIN 40 MG/0.4 ML SYRINGE SUBCUT (10:05)
--- NOTE | 2022-04-17 12:22 | PM.CN ---
History of Present Illness Consult details Date Patient Seen: 04/17/22 Time Patient Seen: 12:22 Chief complaint: chest pain /pleurisy T-7 Narrative: Jann Diehl?is a 66-year-old male with history of paroxysmal AFib on Pradaxa and Eliquis, chronic pancreatic insufficiency (typically controlled at home with pancreatic enzymes, oxycodone, Zofran and Phenergan), hypertension, PAD with HX (2005) of right lower extremity angioplasty with stent placement/removal & left angioplasty insulin-dependent diabetes, narcolepsy with cataplexy, hyperlipidemia, history(06/14) cholecystectomy, recent NSTEMI, DKA was admitted for acute on chronic pancreatic insufficiency with a lipase of 800. Patient continues to improve has tolerated clear liquid diet, notes abdominal pain continues but has lessened has had no nausea vomiting for day and a half, still has described costochondritis pain bilaterally but is also improved, has had no BM, denies any cardiac chest pain shortness of breath. ?Likely can go home the next 24-48 hours. Meds Home Medications and Allergies Home Medications Medication Instructions Recorded Confirmed Type clopidogrel 75 mg tablet (Plavix) 75 mg PO QAM ##0 04/15/08 04/16/22 History acetaminophen 325 mg tablet (Pain 500 mg PO Q4HP PRN Pain, Mild 09/25/17 04/16/22 History Relief (acetaminophen)) dabigatran etexilate 150 mg 150 mg PO BID 03/24/18 04/16/22 History capsule (Pradaxa) pravastatin 80 mg tablet 80 mg PO BEDTIME ##0 02/13/19 04/16/22 History lisinopril 2.5 mg tablet 2.5 mg PO QAM blood pressure 04/28/19 04/16/22 History gentamicin 0.3 % eye drops 1 drp EYE-BOTH TID PRN Blepharitis 03/15/20 04/16/22 Rx #5 mL insulin lispro 100 unit/mL See Rx Instructions SUBCUT 03/15/20 04/16/22 History subcutaneous solution (Humalog USEASDIRECTD U-100 Insulin) [id number] 1 cap PO QID #120 caps 03/15/20 04/16/22 Rx 24,000-76,000-120,000 unit capsule,delayed rel (Creon) promethazine 25 mg rectal 25 mg [place] Q6H PRN Nausea 06/17/20 04/16/22 History suppository diphenhydramine HCl 12.5 mg/5 mL 12.5 mg (5 mL) PO Q6H PRN nausea 03/15/21 04/16/22 Rx oral elixir and vomiting #500 mL azelastine 2 spray intranasal PRN PRN 05/30/21 04/16/22 History Bronchospasm oxycodone 10 mg tablet 5 mg PO Q4H PRN Pain, Severe (7-10) 05/30/21 04/16/22 History duloxetine 60 mg capsule,delayed 60 mg PO QAM 11/01/21 04/16/22 History release (Cymbalta) ipratropium 20 mcg-albuterol 100 1 puff inhalation Q4H PRN wheezing 11/01/21 04/16/22 History mcg/actuation mist for inhalation (Combivent Respimat) ondansetron 8 mg disintegrating 4 mg PO PRN PRN nausea/vomiting 02/25/22 04/16/22 History tablet amiodarone 200 mg tablet 200 mg PO DAILY #90 tabs 03/03/22 04/16/22 Rx metoprolol succinate 100 mg 100 mg PO DAILY #90 tabs 03/03/22 04/16/22 Rx tablet,extended release 24 hr (Toprol XL) trazodone 50 mg tablet 50 mg PO BEDTIME PRN insomnia #30 03/03/22 04/16/22 Rx tabs methylphenidate HCl 20 mg tablet 20 mg PO TID #90 ea 03/23/22 04/16/22 Rx Allergies Allergy/AdvReac Type Severity Reaction Status Date / Time Iodine and Iodide Containing Allergy Severe Anaphylaxis Verified 04/10/22 18:24 Produc [IODINE AND IODIDE CONTAINING PRODUC] Sulfa (Sulfonamide Allergy Severe Anaphylaxis Verified 04/10/22 18:24 Antibiotics) [SULFA (SULFONAMIDE ANTIBIOTICS)] gabapentin AdvReac Intermediate Dizziness Verified 04/10/22 18:24 Ibbsetr-CTF-GvR Reductase AdvReac Intermediate Verified 04/10/22 18:24 Inhibitor metformin AdvReac Mild Verified 04/10/22 18:24 Review of Systems Review of Systems Narrative: All 12 point systems reviewed with the patient and are negative except otherwise documented. Exam Vital Signs (past 8 hours): - 04/17/22 08:21 04/17/22 09:35 Temperature 96.7 F L Pulse Rate 66 Respiratory Rate 18 Blood Pressure 96/53 L Pulse Oximetry 98 Oxygen Delivery Method Room Air Oxygen Flow Rate 0 Oxygen Delivery Method Room Air Oxygen Flow Rate 0 Narrative Exam Narrative: General: Patient is a well-developed, well-nourished male who verbalizes abd pain, but in comparison to previous admits demonstrates no discomfort or distress at this time. HEENT: Normocephalic, atraumatic, extraocular muscles intact, oral pharynx is clear and mucous membranes are moist. Neck is supple and symmetric, trachea is midline, no adenopathy, no thyroid enlargement, nontender, no masses palpated. Negative for JVD Chest: Normal AP diameter and contour without kyphoscoliosis, no nasal flaring, retractions, or tachypneic labored Lungs: Auscultation of all lung godfrey are clear without, rhonchi, or rales. Cardio: regular rate and rhythm without murmur, rubs, or gallops, no carotid bruit, no cardiac pulsations present. Abdomen: Soft very mild epigastric & suprapubic midl;ine with palpation, no obvious organomegaly, or masses. Bowel sounds are very hypoactive present in all 4 quadrants without guarding or rebound, no CVA tenderness. Musculoskeletal: Muscle strength and tone are equal within normal limits, no deformity, crepitus, effusions, cyanosis, clubbing or edema present. Full range of motion intact radial and pedal pulses are normal. Skin: Warm dry and intact without rashes, ulcerations or petechiae. Neuro: Alert and orientated x3, strength is +5/5 in all extremities, sensation to touch intact, no gross deficits noted of cranial nerves. Psych: Patient has a well-kept appearance, appropriate affect, mental status attitude thought context and judgment are appropriate for age. Objective Labs Result Diagrams: 04/17/22 05:20 04/17/22 05:20 Labs: Laboratory Results - last 24 hr 04/16/22 04/17/22 04/17/22 21:27 05:20 05:20 WBC 5.0 RBC 4.25 L Hgb 12.5 L Hct 37.6 L MCV 88.5 MCH 29.4 MCHC 33.2 RDW 15.0 H Plt Count 278 Neut % (Auto) 66.7 D Lymph % (Auto) 22.8 L Cannon % (Auto) 7.3 Eos % (Auto) 2.9 Baso % (Auto) 0.3 Neut # (Auto) 3400 Lymph # (Auto) 1100 Cannon # (Auto) 400 Eos # (Auto) 100 Baso # (Auto) 0 PT INR Sodium Potassium Chloride Carbon Dioxide BUN Creatinine Estimated GFR BUN/Creatinine Ratio Glucose Calcium Magnesium 1.8 Total Bilirubin AST ALT Alkaline Phosphatase Total Creatine Kinase 31 L Total Protein Albumin Globulin Albumin/Globulin Ratio Triglycerides Cholesterol LDL Cholesterol, Calc HDL Cholesterol Lipase 04/17/22 04/17/22 04/17/22 05:20 05:20 05:20 WBC RBC Hgb Hct MCV MCH MCHC RDW Plt Count Neut % (Auto) Lymph % (Auto) Cannon % (Auto) Eos % (Auto) Baso % (Auto) Neut # (Auto) Lymph # (Auto) Cannon # (Auto) Eos # (Auto) Baso # (Auto) PT 13.5 H INR 1.2 Sodium 138 Potassium 4.3 Chloride 104 Carbon Dioxide 31 BUN 8 L Creatinine 0.53 L Estimated GFR > 60 BUN/Creatinine Ratio 15.1 Glucose 138 H D Calcium 8.5 Magnesium Total Bilirubin 0.3 AST 22 ALT 24 Alkaline Phosphatase 63 Total Creatine Kinase Total Protein 6.3 Albumin 3.5 Globulin 2.8 Albumin/Globulin Ratio 1.3 Triglycerides 170 H Cholesterol 178 LDL Cholesterol, Calc 111 H HDL Cholesterol 33 L Lipase 68 D [facility] Medical History Acute dehydration Atrial flutter with rapid ventricular response Campylobacter enteritis Claudication in peripheral vascular disease Enteritis, enteropathogenic E. coli Exocrine pancreatic insufficiency Gastroenteritis GERD (gastroesophageal reflux disease) History of cardioversion (03/07/21) HTN (hypertension) Hyperlipidemia Insulin dependent diabetes mellitus with complications Narcolepsy Nausea vomiting and diarrhea Pancreatic endocrine tumor Pancreatitis Paroxysmal atrial fibrillation Peripheral vascular disease Psoriasis Sepsis Surgical History H/O exploratory laparotomy History of epididymectomy History of femoropopliteal bypass Hx of biopsy Family History Father Colon cancer Mother Narcolepsy Grandmother Narcolepsy Social History household members: significant other Tobacco & Substance Use Smoking Status: Former smoker alcohol intake: former Assessment & Plan Assessment & Plan narrative: 1. Pancreatic insufficiency exacerbation, acute on chronic present on admission -patient is improving tolerating clear liquid diet and Creon prior to meals -on admit lipase 810, today 68-will recheck a.m. labs -triglycerides 170, LDL 111, HDL 33 -increase diet to brat stop IV pain medication continue with orals only -if patient is able to tolerate brat diet without nausea vomiting or worsening abdominal pain, and lipase and amylase are WNL tomorrow will likely be ready for discharge. Repeat AM labs. -continue Creon pancreatic enzymes prior to meals ?2. atrial fibrillation, chronic, recurrent cardioversion, on chronic anticoagulation Plavix and Pradaxa, present on admission -multiple cardioversions in the past without issue, at least 3 this year alone -continue Plavix and Pradaxa, metoprolol 3. Hx of NSTEMI/myocardial injury, chronic present on admission -continue Plavix and Pradaxa ?4. insulin-dependent diabetes, acute on chronic, hyperlipidemia present on admission- -continue patient's insulins, pravastatin, lisinopril 5. Chronic heart failure, chronic, present on admission -last echo 03/09/[address] Monte EF 45-50% -echo 02/27 with EF 50-55% with improved focal WMA's since prior 6. Hypertension, essential, chronic, present on admission -continue metoprolol 7. Depression, chronic, present on admission -continue Cymbalta 8. Narcolepsy with cataplexy, chronic, present on admission -holding Ritalin Code status:Full Surrogate decision maker: November Time Spent With Patient Critical Care time: I spent a total of [] minutes of critical care time on this patient's care today; this time is exclusive of procedural time.
--- NOTE | 2022-04-17 12:32 | CM.DPC ---
DCP Cont: Discussed patient during team rounds. Hospitalist indicated that diet is advancing, most likely ready for discharge tomorrow. Patient resides with spouse in [place]. P: DCP to continue to follow. Plan is home when medically stable, most likely tomorrow. Catalina Pollack RN/[employer] Permit Agent
[2022-04-17] MEDS: HYDROCODONE/ACET 5/325 TABLET 1 TAB PO (16:11)
[2022-04-17] MEDS: ACETAMINOPHEN 325 MG TABLET 650 MG PO (16:12)
[2022-04-17] MEDS: INSULIN LISPRO 100 UNIT/ML 3ML VIAL SUBCUT ×2 (17:33→20:21)
[2022-04-17] MEDS: OXYCODONE 5 MG/5 ML ORAL SOLUTION PO (17:33)
[2022-04-17] MEDS: HYDROCODONE/ACET 10/325 TABLET 1 TAB PO (20:20)
[2022-04-17] MEDS: ONDANSETRON 4 MG ODT SL (20:20)
[2022-04-17] MEDS: METOPROLOL IR 50 MG TABLET PO (20:21)
[2022-04-17] MEDS: SENNOSIDES 8.6 MG TABLET 17.2 MG PO (20:29)
[2022-04-17] MEDS: LORazepam 2 MG/ML INJ 1 MG IV (22:35)
[2022-04-17] MEDS: TRAZODONE 50 MG TABLET PO (22:35)
[2022-04-18] MEDS: HYDROCODONE/ACET 10/325 TABLET 1 TAB PO ×2 (01:18→08:04)
[2022-04-18] MEDS: PROMETHAZINE 25 MG SUPP PR ×2 (01:19→08:05)
[2022-04-18 01:20] VITALS: BP 94/53; PULSE 59; RESP 18; TEMP 36.4; O2SAT 95
[2022-04-18 06:36] LABS: Add Manual Diff / Slide Review NO; Basophils Absolute Auto 0 /uL (0-100); Basophils Percent Auto 0.3 % (0-2); Eosinophils Absolute Auto 300 /uL (0-450); Eosinophils Percent Auto 6.6 % (2-4); Hemoglobin 11.9 g/dL (13.5-17.5); Lymphocytes Absolute Auto 1400 /uL (1100-4500); Lymphocytes Percent Auto 32.7 % (25-40); Mean Corpuscular HGB Conc 32.9 % (30-36); Mean Corpuscular Hemoglobin 29.4 PG (26-34); Mean Corpuscular Volume 89.3 fL (80-100); Monocytes Absolute Auto 400 /uL (0-900); Monocytes Percent Auto 8.5 % (3-14); Neutrophils Absolute Auto 2200 /uL (1500-7000); Neutrophils Percent Auto 51.9 % (50-75); Platelet Count 279 X10^3/uL (150-400); Red Blood Cell Count 4.04 X10^6/uL (4.5-5.9); Red Cell Distribution Width 15.1 % (11.6-14.8); White Blood Cell Count 4.2 X10^3/uL (4.5-11.0)
[2022-04-18 06:43] LABS: Alanine Aminotransferase 22 IU/L (<50); Albumin 3.4 g/dL (3.5-5.0); Albumin Globulin Ratio 1.3 (1.0-2.8); Alkaline Phosphatase 61 U/L (38-126); Aspartate Aminotransferase 20 IU/L (17-59); BUN Creatinine Ratio 11.9 (6-22); Bilirubin Total 0.1 mg/dL (0.2-1.3); Blood Urea Nitrogen 7 mg/dL (9-20); Calcium 8.4 mg/dL (8.4-10.2); Carbon Dioxide 30 mmol/L (22-32); Chloride 104 mmol/L (98-107); Estimated Glomerular Filt Rate > 60 mL/min (>60); Globulin 2.6 g/dL (1.7-4.1); Glucose 113 mg/dL (80-110); HEMOLYSIS < 15 (0-50); Lipase 54 U/L (23-300); Potassium 4.1 mmol/L (3.4-5.1); Sodium 140 mmol/L (137-145)
[2022-04-18 07:37] LABS: Hepatitis B Surf Ab Qualitativ Reactive (.)
[2022-04-18] MEDS: AMIODARONE 200 MG TABLET PO (08:09)
[2022-04-18 08:18] VITALS: BP 97/50; PULSE 63; RESP 16; TEMP 37; O2SAT 96
[2022-04-18] MEDS: LIPASE PROTEASE AMYLASE 1 EACH PO (08:40)
[2022-04-18] MEDS: ENOXAPARIN 40 MG/0.4 ML SYRINGE SUBCUT (08:41)
--- NOTE | 2022-04-18 08:41 | PM.DS.1 ---
History of Present Illness History of Present Illness Date Patient Seen: 04/18/22 Chief complaint: chest pain /pleurisy T-7 Narrative: Alfredo Diehl is a 67-year-old male with a history of paroxysmal atrial fibrillation previously anticoagulated on dabigatran, pancreatic insufficiency, vascular disease with right lower extremity angioplasty, insulin-dependent diabetes, hyperlipidemia, and hypertension presented to the emergency department with concern for worsening chest pain.? He was seen in the emergency department several days prior and was diagnosed with pleurisy.? He stated that since then, his pain moved more from the right over to the left and now occupies the entire chest area especially in the center.? He stated he coughed on the morning of presentation, took a deep breath and had a taste of rot. He had sweats and chills, but had no fever when he took his temperature.? He stated his nausea has been increased although he was not vomiting, and his chronic 3/10 abdominal pain has been much worse up to an 8 or 10 at times recently. Lipase was 118 on the presentation the patient was admitted for control and gastrointestinal rest. Discharge Providers Provider Date of admission: 04/15/22 19:52 Discharge Date: 04/18/22 Primary care physician: Eric Huang MD Discharge provider: Jessenia Heard MD Summary Hospital Course Discharge Diagnosis: Acute pancreatitis Acute abdominal pain Recent diagnosis of pleurisy Chest pain Exocrine pancreatic insufficiency history History of Pancreatic endocrine tumor History of Atrial flutter/atrial fibrillation with rapid ventricular response Claudication in peripheral vascular disease GERD (gastroesophageal reflux disease) History of cardioversion (03/07/21) HTN (hypertension) Hyperlipidemia Insulin dependent diabetes mellitus with complications Narcolepsy Psoriasis H/O exploratory laparotomy History of epididymectomy History of femoropopliteal bypass Hospital Course: Presented with right chest pain but moved to the left. Had previously been diagnosed of pleurisy in the week prior to presentation. With his history of recurrent pancreatitis it was noted that the patient's lipase was elevated to 810. Patient placed gastrointestinal rest and intravenous fluids with pain control. Initially the patient was NPO and then progress to clear fluids and eventually to increasing his diet. During this same time the patient's lipase returned to normal level. At the time of discharge to lyse patient had been normal for 2 days and the patient was tolerating oral intake regular food. Patient discharge with further pain control ice at any time that he is not feeling well or has any hint of increased pain he should immediately go to clear fluids to settle his symptoms. Status at Discharge Cognitive/behavioral status at discharge: at baseline, oriented Functional status at discharge: independent ambulation Overall status at discharge: patient is progressing back to baseline Time Spent with Patient Time spent: Greater than 30 minutes Exam Vital Signs (past 8 hours): - 04/18/22 01:20 04/18/22 08:18 Temperature 97.5 F L 98.6 F Pulse Rate 59 L 63 Respiratory Rate 18 16 Blood Pressure 94/53 L 97/50 L Pulse Oximetry 95 96 Oxygen Flow Rate 0 0 Oxygen Delivery Method Room Air Oxygen Flow Rate 0 Narrative Exam Narrative: Gen: Alert, oriented,? thin male, NAD HEENT: normocephalic, atraumatic, conjunctiva clear, sclera non-icteric Neck: supple, full ROM, no JVD, trachea is midline Resp: Lungs CTA, non-labored breathing CV: RRR, no murmur or rubs Abd: soft, minimal tender left upper quadrant, bowel sounds present Skin: no lesions or rashes, dry and intact Neuro: Alert and oriented X 4 w/no focal deficits. Speech clear and coherent. Extremities: moves all 4 extremities, is ambulatory, negative Olive?s sign Psyche: normal mood and affect Objective Labs 04/18/22 05:45 04/18/22 05:45 Labs: Laboratory Results - last 24 hr 04/15/22 04/18/22 04/18/22 19:20 05:45 05:45 WBC 4.2 L RBC 4.04 L Hgb 11.9 L Hct 36.0 L MCV 89.3 MCH 29.4 MCHC 32.9 RDW 15.1 H Plt Count 279 Neut % (Auto) 51.9 Lymph % (Auto) 32.7 [place] % (Auto) 8.5 Eos % (Auto) 6.6 H Baso % (Auto) 0.3 Neut # (Auto) 2200 Lymph # (Auto) 1400 [place] # (Auto) 400 Eos # (Auto) 300 Baso # (Auto) 0 Sodium 140 Potassium 4.1 Chloride 104 Carbon Dioxide 30 BUN 7 L Creatinine 0.59 L Estimated GFR > 60 BUN/Creatinine Ratio 11.9 Glucose 113 H Calcium 8.4 Total Bilirubin 0.1 L AST 20 ALT 22 Alkaline Phosphatase 61 Total Protein 6.0 L Albumin 3.4 L Globulin 2.6 Albumin/Globulin Ratio 1.3 Lipase 54 Hep Bs Antibody Reactive PFSH Medical History Acute dehydration Atrial flutter with rapid ventricular response Campylobacter enteritis Claudication in peripheral vascular disease Enteritis, enteropathogenic E. coli Exocrine pancreatic insufficiency Gastroenteritis GERD (gastroesophageal reflux disease) History of cardioversion (03/07/21) HTN (hypertension) Hyperlipidemia Insulin dependent diabetes mellitus with complications Narcolepsy Nausea vomiting and diarrhea Pancreatic endocrine tumor Pancreatitis Paroxysmal atrial fibrillation Peripheral vascular disease Psoriasis Sepsis Surgical History H/O exploratory laparotomy History of epididymectomy History of femoropopliteal bypass Hx of biopsy Family History Father Colon cancer Mother Narcolepsy Grandmother Narcolepsy Social History household members: significant other Smoking Status: Former smoker alcohol intake: former Discharge Plan Discharge Plan Patient Disposition: Home Discharge orders & Medications Prescriptions: New sennosides [senna] 8.6 mg Tablet 17.2 mg PO BEDTIME Qty: 30 0RF oxycodone 7.5 mg tablet, oral only 7.5 mg PO Q4H PRN (Reason: pain) Qty: 30 0RF oxycodone 7.5 mg tablet, oral only 7.5 mg PO Q4H PRN (Reason: pain) Qty: 30 0RF Continued clopidogrel [Plavix] 75 mg Tablet 75 mg PO QAM Qty: 0 methylphenidate HCl 20 mg tablet 20 mg PO TID Qty: 90 0RF insulin lispro [Humalog U-100 Insulin] 100 unit/mL solution See Rx Instructions SUBCUT USEASDIRECTD Rx Instructions: 2-4 sliding scale SUBCUT use as directed; gentamicin 0.3 % drops 1 drp EYE-BOTH TID PRN (Reason: Blepharitis) Qty: 5 12RF Creon 24,000-76,000 -120,000 unit capsule,delayed release(DR/EC) 1 cap PO QID Qty: 120 12RF Rx Instructions: administer with meals and/or snacks prn sliding scale. 1 capsule for every 600 calories promethazine 25 mg suppository 25 mg [place] Q6H PRN (Reason: Nausea) duloxetine [Cymbalta] 60 mg capsule,delayed release(DR/EC) 60 mg PO QAM Combivent Respimat 20-100 mcg/actuation mist 1 puff inhalation Q4H PRN (Reason: wheezing) acetaminophen [Pain Relief (acetaminophen)] 325 MG tablet 500 mg PO Q4HP PRN (Reason: Pain, Mild) dabigatran etexilate [Pradaxa] 150 mg Capsule 150 mg PO BID pravastatin 80 mg Tablet 80 mg PO BEDTIME Qty: 0 Rx Instructions: 1 tablet daily HS ondansetron 8 mg tablet,disintegrating 4 mg PO PRN PRN (Reason: nausea/vomiting) amiodarone 200 mg Tablet 200 mg PO DAILY Qty: 90 0RF Rx Instructions: Take in evening metoprolol succinate [Toprol XL] 100 mg tablet extended release 24 hr 100 mg PO DAILY Qty: 90 0RF trazodone 50 mg Tablet 50 mg PO BEDTIME PRN (Reason: insomnia) Qty: 30 0RF Rx Instructions: can take 1/2 tab (25mg) if 50 is too strong lisinopril 2.5 mg Tablet 2.5 mg PO QAM diphenhydramine HCl 12.5 mg/5 mL elixir 12.5 mg PO Q6H PRN (Reason: nausea and vomiting) Qty: 500 0RF oxycodone 10 mg tablet 5 mg PO Q4H PRN (Reason: Pain, Severe (7-10)) azelastine inhaler 2 spray intranasal PRN PRN (Reason: Bronchospasm) Follow up/Referrals: Eric Huang MD [Primary Care Provider] - Visit Report/Discharge Packet Stand Alone Forms: Patient Portal/API, Stroke Signs & Symptoms Discharge Data Primary Care Provider: Eric Huang Quality VTE Deep Vein Thrombosis/Pulmonary Embolism Present on Admission: No
--- NOTE | 2022-04-18 10:29 | PC.NURSE ---
Pt is A&OX3, VSS, afebrile on RA. His BP is slightly low SBP 90's and a.m. metoprolol and antihypertensive medications held. Pt is complaining of abdominal pain 9/ this a.m. with slight relief from hydrocodone prn tablet. He also is medicated for nausea with compazine CT and able to tolerate breakfast. He takes a shower which he states helps relieve some of his pain. He is cleared for discharge home today with PRN medications for pain and to prevent constipation. He verbalizes understanding of medications and states that [facility] and with MD Huang in two weeks. He is escorted at approximately 0940 this a.m. by w/ch to pharmacy via w/ch with all of his belongings by RN where he plans to have his ride home meet him.
== END 2022-04-18 09:40 | disposition home or self-care (01) | DRG 439 ==
LOC: ED 16:03 → AC 20:52
PROVIDERS: Emergency Medicine; Neuromusculoskeletal Medicine, Sports Medicine; Nurse Practitioner Family; Admitting Provider Nurse Practitioner Family; Emergency Provider Student in an Organized Health Care Education/Training Program; Family Provider Nurse Practitioner Family; PCP Family Medicine; Referring Provider Emergency Medicine; Visit Provider Nurse Practitioner Family
DX: K85.90 Acute pancreatitis without necrosis or infection, unspecified (principal); I48.20 Chronic atrial fibrillation, unspecified; I10 Essential (primary) hypertension; E11.9 Type 2 diabetes mellitus without complications; E78.5 Hyperlipidemia, unspecified; F32.A Depression, unspecified; G47.411 Narcolepsy with cataplexy; R07.9 Chest pain, unspecified; Z66 Do not resuscitate; Z79.4 Long term (current) use of insulin; Z20.822 Contact with and (suspected) exposure to COVID-19; Z87.891 Personal history of nicotine dependence; Z79.01 Long term (current) use of anticoagulants
CPT/HCPCS: 36415; 71045; 71260; 74177; 80053; 80061; 82550; 82962; 83036; 83690; 83735; 83880; 84443; 84484; 85025; 85379; 85610; 85730; 87635; 93005; 96365; 96375; 96376; 99284; 99285; C9803; J0780; J1170; J1200; J1650; J1815; J2060; J2270; J2405; J2930; J3475; J7050

== ENCOUNTER 2022-04-25 12:14 | Inpatient (IN) | payer OTHER, SELFPAY ==
[2022-04-15 20:58] VITALS: BMI 25.2
[2022-04-25] VITALS (12 sets, daily range): BP systolic 91–149; BP diastolic 54–88; PULSE 67–77; RESP 17–24; TEMP 36.1–36.8; O2SAT 94–100; BMI 23.6
--- NOTE | 2022-04-25 12:24 | DI.RAD.S_ITS ---
PROCEDURE: XR CHEST 1V INDICATIONS: chest pain TECHNIQUE: One view of the chest was acquired. COMPARISON: [facility], CR, XR CHEST 1V, 04/15/2022, 16:05. FINDINGS: Surgical changes and devices: None. Lungs and pleura: Lungs are clear. No pleural effusions or pneumothorax. Mediastinum: Mediastinal contours appear normal. Heart size is normal. Bones and chest wall: No suspicious bony lesions. Overlying soft tissues appear unremarkable. IMPRESSION: No acute cardiopulmonary abnormality. Dictated by: Arnoldo Ferguson M.D. on 04/25/2022 at 12:39 Approved by: Arnoldo Ferguson M.D. on 04/25/2022 at 12:40
--- NOTE | 2022-04-25 12:39 | ED_ITS ---
HPI - General Adult General Chief complaint: Chest Pain Stated complaint: chest pain sent by DR Hagan Seen by Provider: 04/25/22 12:30 Source: patient Mode of arrival: Ambulatory Limitations: no limitations History of Present Illness HPI narrative: Patient is a 67-year-old male. Is an insulin-dependent diabetic. Also has a history of pancreatitis secondary to [place] exposure. Recently admitted to the hospital for chest discomfort which turned out to be pancreatitis. He was discharged home he was symptom-free. This morning he was woken up with abdominal pain that is similar to his prior diagnosis of pancreatitis but is not completely the same. No fevers. No urinary symptoms. No change in bowel h abits. He has been eating a bland diet recently but did introduce a soy sausage yesterday. He contacted his doctor's who told him not to take the nitro but to come to the emergency department for evaluation. Related Data Home Medications Medication Instructions Recorded Confirmed clopidogrel 75 mg tablet (Plavix) 75 mg PO QAM ##0 04/15/08 04/25/22 acetaminophen 325 mg tablet (Pain 500 mg PO Q4HP PRN Pain, Mild 09/25/17 0 04/25/22 Relief (acetaminophen)) dabigatran etexilate 150 mg 150 mg PO BID 03/24/18 04/25/22 capsule (Pradaxa) pravastatin 80 mg tablet 80 mg PO BEDTIME ##0 02/13/19 04/25/22 lisinopril 2.5 mg tablet 2.5 mg PO QAM blood pressure 04/28/19 04/25/22 insulin lispro 100 unit/mL See Rx Instructions SUBCUT 03/15/20 04/25/22 subcutaneous solution (Humalog USEASDIRECTD U-100 Insulin) promethazine 25 mg rectal 25 mg MD Q6H PRN Nausea 06/17/20 04/25/22 suppository azelastine 2 spray intranasal PRN PRN 05/30/21 04/25/22 Bronchospasm duloxetine 60 mg capsule,delayed 60 mg PO QAM 11/01/21 04/25/22 release (Cymbalta) ipratropium 20 mcg-albuterol 100 1 puff inhalation Q4H PRN wheezing 11/01/21 04/25/22 mcg/actuation mist for inhalation (Combivent Respimat) ondansetron 8 mg disintegrating 4 mg PO PRN PRN nausea/vomiting 02/25/22 04/25/22 tablet Previous Rx's Medication Instructions Recorded gentamicin 0.3 % eye drops 1 drp EYE-BOTH TID PRN Blepharitis 03/15/20 #5 mL [id number]-[id number]-gqteodn 1 cap PO QID #120 caps 03/15/20 24,000-76,000-120,000 unit capsule,delayed rel (Creon) diphenhydramine HCl 12.5 mg/5 mL 12.5 mg (5 mL) PO Q6H PRN nausea 03/15/21 oral elixir and vomiting #500 mL amiodarone 200 mg tablet 200 mg PO DAILY #90 tabs 03/03/22 metoprolol succinate 100 mg 100 mg PO DAILY #90 tabs 03/03/22 tablet,extended release 24 hr (Toprol XL) trazodone 50 mg tablet 50 mg PO BEDTIME PRN insomnia #30 03/03/22 tabs oxycodone 7.5 mg tablet,oral ONLY 7.5 mg PO Q4H PRN pain #30 ea 04/18/22 (not for feeding tubes) sennosides 8.6 mg tablet (senna) 17.2 mg PO BEDTIME #30 tabs 04/18/22 methylphenidate HCl 20 mg tablet 20 mg PO TID #90 ea 04/24/22 Allergies Allergy/AdvReac Type Severity Reaction Status Date / Time Iodine and Iodide Containing Allergy Severe Anaphylaxis Verified 04/10/22 18:24 Produc [IODINE AND IODIDE CONTAINING PRODUC] Sulfa (Sulfonamide Allergy Severe Anaphylaxis Verified 04/10/22 18:24 Antibiotics) [SULFA (SULFONAMIDE ANTIBIOTICS)] gabapentin AdvReac Intermediate Dizziness Verified 04/10/22 18:24 [id number] Reductase AdvReac Intermediate Verified 04/10/22 18:24 Inhibitor metformin AdvReac Mild Verified 04/10/22 18:24 Review of Systems Constitutional Constitutional: Reports system reviewed and no additional complaints, except as documented Cardiovascular Cardiovascular: Reports system reviewed and no additional complaints, except as documented Respiratory Respiratory: Reports system reviewed and no additional complaints, except as documented Gastrointestinal Gastrointestinal: Reports system reviewed and no additional complaints, except as documented Genitourinary Genitourinary: Reports system reviewed and no additional complaints, except as documented Integumentary/Breasts Skin/Breast: Reports system reviewed and no additional complaints, except as documented Patient History Medical History Acute dehydration Atrial flutter with rapid ventricular response Campylobacter enteritis Claudication in peripheral vascular disease Enteritis, enteropathogenic E. coli Exocrine pancreatic insufficiency Gastroenteritis GERD (gastroesophageal reflux disease) History of cardioversion (03/07/21) HTN (hypertension) Hyperlipidemia Insulin dependent diabetes mellitus with complications Narcolepsy Nausea vomiting and diarrhea Pancreatic endocrine tumor Pancreatitis Paroxysmal atrial fibrillation Peripheral vascular disease Psoriasis Sepsis Surgical History H/O exploratory laparotomy History of epididymectomy History of femoropopliteal bypass Hx of biopsy Family History Father Colon cancer Mother Narcolepsy Grandmother Narcolepsy Social History household members: significant other Smoking Status: Former smoker alcohol intake: former Smoking Status: Former smoker alcohol intake frequency: 0-2 drinks per day Substance Use Type: marijuana Exam Initial Vital Signs Initial Vital Signs: Vital Signs Temperature 98.2 F 04/25/22 12:43 Pulse Rate 77 04/25/22 12:43 Respiratory Rate 18 04/25/22 12:43 Blood Pressure 127/69 04/25/22 12:43 Pulse Oximetry 99 04/25/22 12:43 Oxygen Delivery Method 04/25/22 12:43 Const General: cooperative and comfortable Chest Chest: No crepitus and No tenderness Resp Effort & Inspection: normal respiratory effort Auscultation: clear to auscultation bilaterally Cardio Rate: regular rate Rhythm: regular rhythm GI Inspection: non-distended Palpation: tender (Left upper quadrant) Neuro General: patient alert, patient awake and moves all extremities Extrem General: capillary refill normal Course Orders Ordered: ED Orders 04/25/22 12:24 XR chest 1V Stat EKG-12 Lead Stat 04/25/22 13:00 Complete Blood Count AUTO DIFF Stat Comprehensive Metabolic Panel Stat Lipase Stat Lipid Panel Urgent Magnesium Stat Partial Thromboplastin Time Stat Prothrombin Time INR Stat Troponin & CK Cardiac Panel Stat 04/26/22 05:00 BMP [Basic Metabolic Panel] DAILY CBC Auto Diff [Complete Blood Count AUTO DIFF] DAILY Lipase DAILY Magnesium DAILY 04/27/22 05:00 BMP [Basic Metabolic Panel] DAILY CBC Auto Diff [Complete Blood Count AUTO DIFF] DAILY Lipase DAILY Magnesium DAILY 04/28/22 05:00 BMP [Basic Metabolic Panel] DAILY CBC Auto Diff [Complete Blood Count AUTO DIFF] DAILY Magnesium DAILY Acetaminophen (Acetaminophen 325 Mg Tablet) 650 mg PO Q6H PRN PRN Reason: Fever/Mild Pain (1-3) Last Admin: 04/25/22 16:26 Dose: 650 mg Documented By: LUDWIG Amiodarone HCl (Amiodarone 200 Mg Tablet) 200 mg PO DAILY [facility] Lipase/Protease/Amylase (Lipase/Protease/Amylase 08/10/23 Cap) 4 cap PO QID [facility] Last Admin: 04/25/22 16:44 Dose: 4 cap Documented By: LUDWIG Clopidogrel Bisulfate (Clopidogrel 75 Mg Tablet) 75 mg PO DAILY [facility] Dabigatran (Dabigatran 75 Mg Capsule) 150 mg PO BID [facility] Dextrose (Dextrose 50 % In Water 25 Gm/50 Ml Syringe) 25 gm IV PRN PRN PRN Reason: Hypoglycemia Duloxetine HCl (Duloxetine 30 Mg Capsule) 60 mg PO DAILY [facility] Hydromorphone HCl (Hydromorphone 0.5 Mg Inj) 1 mg IV Q3H PRN PRN Reason: Pain, Moderate (4-6) Last Admin: 04/25/22 15:37 Dose: 1 mg Documented By: LUDWIG Sodium Chloride (Normal Saline 0.9%) 1,000 mls @ 150 mls/hr IV CONT [facility] Last Admin: 04/25/22 13:57 Dose: 125 mls/hr Documented By: RB Insulin Glargine (Insulin Glargine 100 Unit/Ml 3ml Pen) 10 unit SUBCUT 2100 [facility] Insulin Human Lispro (Insulin Lispro 100 Unit/Ml 3ml Vial) 0 unit SUBCUT ACHS [facility]; Protocol Last Admin: 04/25/22 16:51 Dose: Not Given Documented By: LUDWIG Lisinopril (Lisinopril 5 Mg Tablet) 2.5 mg PO DAILY [facility] Lorazepam (Lorazepam 2 Mg/Ml Inj) 0.5 mg IV Q4HR PRN PRN Reason: Anxiety Last Admin: 04/25/22 18:40 Dose: 0.5 mg Documented By: LUDWIG Melatonin (Melatonin 3 Mg Tablet) 6 mg PO BEDTIME PRN PRN Reason: Insomnia Metoprolol Succinate (Metoprolol Er 50 Mg Tablet) 100 mg PO DAILY [facility] Naloxone HCl (Naloxone 0.4 Mg/Ml Vial) 0.2 mg IV Q2MIN PRN PRN Reason: Opiate Reversal Ondansetron HCl (Ondansetron 4 Mg/2 Ml Inj) 4 mg IV Q6HR [facility] Last Admin: 04/25/22 17:24 Dose: 4 mg Documented By: LUDWIG Oxycodone HCl (Oxycodone Ir 5 Mg Tablet) 5 mg PO Q4HR PRN PRN Reason: Pain, Moderate (4-6) Oxycodone HCl (Oxycodone Ir 10 Mg Tablet) 10 mg PO Q4HR PRN PRN Reason: Pain, Severe (7-10) Last Admin: 04/25/22 16:44 Dose: 10 mg Documented By: LUDWIG Polyethylene Glycol (Polyethylene Glycol 3350 17 Gm Powd.Pack) 17 gm PO DAILY PRN PRN Reason: Constipation Pravastatin Sodium (Pravastatin 20 Mg Tablet) 80 mg PO BEDTIME [facility] Prochlorperazine (Prochlorperazine 10 Mg/2 Ml Vial) 10 mg IV Q6HR PRN PRN Reason: Nausea Promethazine HCl (Promethazine 25 Mg Tablet) 25 mg PO Q6HR PRN PRN Reason: Nausea Last Admin: 04/25/22 15:37 Dose: 25 mg Documented By: LUDWIG Sennosides (Sennosides 8.6 Mg Tablet) 17.2 mg PO BEDTIME [facility]ATH[facility] Trazodone HCl (Trazodone 50 Mg Tablet) 50 mg PO BEDTIME PRN PRN Reason: insomnia Discontinued Medications Aspirin (Aspirin 81 Mg Chew Tab) 324 mg PO NOW ONE Stop: 04/25/22 12:25 Last Admin: 04/25/22 13:56 Dose: 324 mg Documented By: PARIS Hydromorphone HCl (Hydromorphone 1 Mg Inj) 1 mg IV NOW ONE Stop: 04/25/22 13:55 Last Admin: 04/25/22 13:58 Dose: 1 mg Documented By: PARIS Hydromorphone HCl (Hydromorphone 0.5 Mg Inj) 0.5 mg IV Q3H PRN PRN Reason: Pain, Moderate (4-6) Magnesium Sulfate (Magnesium Sulfate) 2 gm in 50 mls @ 25 mls/hr IV NOW ONE Stop: 04/25/22 15:52 Last Admin: 04/25/22 15:00 Dose: 25 mls/hr Documented By: LUDWIG Co-signed By: JEET Insulin Human Regular (Insulin Regular 100 Unit/Ml 3 Ml Vial) 0 unit SUBCUT Q6H [facility]; Protocol Last Admin: 04/25/22 14:54 Dose: Not Given Documented By: JEET Sennosides (Sennosides 8.6 Mg Tablet) 8.6 mg PO BID PRN PRN Reason: Constipation Vital Signs Vital signs: Vital Signs - 8 hr 04/25/22 12:43 04/25/22 13:44 04/25/22 13:38 Temperature 98.2 F 98.2 F Pulse Rate 77 71 Respiratory Rate 18 19 Blood Pressure 127/69 121/65 121/65 Pulse Oximetry 99 99 Oxygen Delivery Method Room Air Room Air 04/25/22 13:38 Temperature Pulse Rate 71 Respiratory Rate Blood Pressure Pulse Oximetry 98 Oxygen Delivery Method Medical Decision Making Differential Diagnosis Differential Diagnosis: Pancreatitis, ACS, bowel obstruction, reflux disease, pericarditis, and oth Condition is:: Inadequately Controlled Chronic Condition is having:: Moderate exacerbation Condition is at treatment goal?: No Medical Records Medical records reviewed: Yes I reviewed the patient's medical records. Lab Data Lab results reviewed: Yes I reviewed the patient's lab results. 04/25/22 13:00 04/25/22 13:00 Labs: Lab Results 04/25/22 04/25/22 04/25/22 Range/Units 13:00 13:00 13:00 WBC 5.9 (4.5-11.0) X10^3/uL RBC 4.33 L (4.5-5.9) X10^6/uL Hgb 12.6 L (13.5-17.5) g/dL Hct 38.0 L (41-53) % MCV 87.9 (80-100) fL MCH 29.2 (26-34) PG MCHC 33.2 (30-36) % RDW 14.7 (11.6-14.8) % Plt Count 262 (150-400) X10^3/uL Neut % (Auto) 61.8 (50-75) % Lymph % (Auto) 22.8 L (25-40) % [place] % (Auto) 10.0 (3-14) % Eos % (Auto) 4.6 H (2-4) % Baso % (Auto) 0.8 (0-2) % Neut # (Auto) 3700 (3052-8094) /uL Lymph # (Auto) 1400 (4704-8914) /uL [place] # (Auto) 600 (0-900) /uL Eos # (Auto) 300 (0-450) /uL Baso # (Auto) 100 (0-100) /uL PT 12.1 (10.1-12.7) SECONDS INR 1.1 (0.9-1.3) APTT 39 H (26-36) SECONDS Sodium 140 (137-145) mmol/L Potassium 3.7 (3.4-5.1) mmol/L Chloride 100 (98-107) mmol/L Carbon Dioxide 30 (22-32) mmol/L BUN 14 (9-20) mg/dL Creatinine 0.64 L (0.66-1.25) mg/dL Estimated GFR > 60 (>60) mL/min BUN/Creatinine Ratio 21.9 (6-22) Glucose 110 (80-110) mg/dL Calcium 8.9 (8.4-10.2) mg/dL Magnesium 1.6 (1.6-2.3) mg/dL Total Bilirubin 0.1 L (0.2-1.3) mg/dL AST 23 (17-59) IU/L ALT 21 (<50) IU/L Alkaline Phosphatase 82 (38-126) U/L Total Creatine Kinase 54 L (55-170) U/L CK-MB (CK-2) TNP CK-MB (CK-2) Rel Index TNP Troponin I < 0.012 (0.01-0.034) ng/mL Total Protein 7.1 (6.3-8.2) g/dL Albumin 4.3 (3.5-5.0) g/dL Globulin 2.8 (1.7-4.1) g/dL Albumin/Globulin Ratio 1.5 (1.0-2.8) Triglycerides (35-150) mg/dL Cholesterol (140-199) mg/dL LDL Cholesterol, Calc (<100) mg/dL HDL Cholesterol (40-60) mg/dL Lipase 2407 H D (23-300) U/L 04/25/22 Range/Units 13:00 WBC (4.5-11.0) X10^3/uL RBC (4.5-5.9) X10^6/uL Hgb (13.5-17.5) g/dL Hct (41-53) % MCV (80-100) fL MCH (26-34) PG MCHC (30-36) % RDW (11.6-14.8) % Plt Count (150-400) X10^3/uL Neut % (Auto) (50-75) % Lymph % (Auto) (25-40) % [place] % (Auto) (3-14) % Eos % (Auto) (2-4) % Baso % (Auto) (0-2) % Neut # (Auto) (6913-5631) /uL Lymph # (Auto) (5969-9550) /uL [place] # (Auto) (0-900) /uL Eos # (Auto) (0-450) /uL Baso # (Auto) (0-100) /uL PT (10.1-12.7) SECONDS INR (0.9-1.3) APTT (26-36) SECONDS Sodium (137-145) mmol/L Potassium (3.4-5.1) mmol/L Chloride (98-107) mmol/L Carbon Dioxide (22-32) mmol/L BUN (9-20) mg/dL Creatinine (0.66-1.25) mg/dL Estimated GFR (>60) mL/min BUN/Creatinine Ratio (6-22) Glucose (80-110) mg/dL Calcium (8.4-10.2) mg/dL Magnesium (1.6-2.3) mg/dL Total Bilirubin (0.2-1.3) mg/dL AST (17-59) IU/L ALT (<50) IU/L Alkaline Phosphatase (38-126) U/L Total Creatine Kinase (55-170) U/L CK-MB (CK-2) CK-MB (CK-2) Rel Index Troponin I (0.01-0.034) ng/mL Total Protein (6.3-8.2) g/dL Albumin (3.5-5.0) g/dL Globulin (1.7-4.1) g/dL Albumin/Globulin Ratio (1.0-2.8) Triglycerides 133 (35-150) mg/dL Cholesterol 187 (140-199) mg/dL LDL Cholesterol, Calc 114 H (<100) mg/dL HDL Cholesterol 46 (40-60) mg/dL Lipase (23-300) U/L Imaging Data Chest x-ray: Radiologist's Impression: [address] [address] XRay Report Signed Patient: Jann Diehl MR#: [id number] : 1955 Acct:[id number] Age/Sex: 67 / M Date of Service: 04/25/22 Loc: ED Accession Number: [id number] ?? Procedure: XR chest 1V Ordering Provider: Adi Dietrich D.O. PROCEDURE:? XR CHEST 1V ? INDICATIONS:? chest pain ? TECHNIQUE:? One view of the chest was acquired.? ? COMPARISON:? [facility], CR, XR CHEST 1V, 04/15/2022, 16:05. ? FINDINGS:? ? Surgical changes and devices:? None.? ? Lungs and pleura:? Lungs are clear.? No pleural effusions or pneumothorax.? ? Mediastinum:? Mediastinal contours appear normal.? Heart size is normal.? ? Bones and chest wall:? No suspicious bony lesions.? Overlying soft tissues appear unremarkable.? ? IMPRESSION:? No acute cardiopulmonary abnormality. ? ? ? Dictated by: Arnoldo Ferguson M.D. on 04/25/2022 at 12:39 ? ? Approved by: Arnoldo Ferguson M.D. on 04/25/2022 at 12:40?? ECG Data Attestation: I personally reviewed and interpreted this ECG as follows: Interpretation: Sinus rhythm Ventricular rate is 79 Normal axis Normal QRS Normal QTC No ST T wave changes MDM Narrative Medical decision making narrative: Patient does have lab evidence and physical exam evidence of pancreatitis. Fluids and pain medications administered here in the ER. This does seem to be a new flare the pancreatitis as he states that when he was discharged from the hospital the last time with the same diagnosis his symptoms that actually resolved until yesterday. Low suspicion for ACS. The rest of his workup is unremarkable. I did discuss the case with Dr. Jane who will admit for further evaluation treatment. I did discuss the need for admission with the patient he expressed understanding and agreement. Discharge Plan Departure Patient Disposition: Admitted As Inpatient Clinical Impression: Pancreatitis Admit Date/Time: 04/25/22 13:56 Admit Provider: Narayan Jane
[2022-04-25 13:10] LABS: Add Manual Diff / Slide Review NO; Basophils Absolute Auto 100 /uL (0-100); Basophils Percent Auto 0.8 % (0-2); Eosinophils Absolute Auto 300 /uL (0-450); Eosinophils Percent Auto 4.6 % (2-4); Hemoglobin 12.6 g/dL (13.5-17.5); Lymphocytes Absolute Auto 1400 /uL (1100-4500); Lymphocytes Percent Auto 22.8 % (25-40); Mean Corpuscular HGB Conc 33.2 % (30-36); Mean Corpuscular Hemoglobin 29.2 PG (26-34); Mean Corpuscular Volume 87.9 fL (80-100); Monocytes Absolute Auto 600 /uL (0-900); Neutrophils Absolute Auto 3700 /uL (1500-7000); Neutrophils Percent Auto 61.8 % (50-75); Platelet Count 262 X10^3/uL (150-400); Red Blood Cell Count 4.33 X10^6/uL (4.5-5.9); Red Cell Distribution Width 14.7 % (11.6-14.8); White Blood Cell Count 5.9 X10^3/uL (4.5-11.0)
[2022-04-25 13:18] LABS: INR 1.1 (0.9-1.3); Prothrombin Time 12.1 SECONDS (10.1-12.7)
[2022-04-25 13:21] LABS: PTT Partial Thromboplastin Tim 39 SECONDS (26-36)
[2022-04-25 13:32] LABS: Alanine Aminotransferase 21 IU/L (<50); Albumin 4.3 g/dL (3.5-5.0); Albumin Globulin Ratio 1.5 (1.0-2.8); Alkaline Phosphatase 82 U/L (38-126); Aspartate Aminotransferase 23 IU/L (17-59); BUN Creatinine Ratio 21.9 (6-22); Bilirubin Total 0.1 mg/dL (0.2-1.3); Blood Urea Nitrogen 14 mg/dL (9-20); Calcium 8.9 mg/dL (8.4-10.2); Carbon Dioxide 30 mmol/L (22-32); Chloride 100 mmol/L (98-107); Creatine Kinase 54 U/L (55-170); Estimated Glomerular Filt Rate > 60 mL/min (>60); Globulin 2.8 g/dL (1.7-4.1); Glucose 110 mg/dL (80-110); HEMOLYSIS < 15 (0-50); Magnesium 1.6 mg/dL (1.6-2.3); Potassium 3.7 mmol/L (3.4-5.1); Sodium 140 mmol/L (137-145); Total Protein 7.1 g/dL (6.3-8.2)
[2022-04-25 13:39] LABS: Lipase 2407 U/L (23-300)
[2022-04-25 13:41] LABS: Troponin I < 0.012 ng/mL (0.01-0.034)
[2022-04-25] MEDS: ASPIRIN 81 MG CHEW TAB 324 MG PO (13:56)
[2022-04-25] MEDS: SODIUM CHLORIDE 0.9% 1,000 ML 125 ML IV (13:57)
[2022-04-25] MEDS: HYDROMORPHONE 1 MG INJ IV (13:58)
--- NOTE | 2022-04-25 14:11 | PM.HP.1 ---
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 Patient apparently ate some soy sausages which were not apart of his normal diet, then developed acute abd pain and NV. He thinks those were the cause. He has had mutliple pancreatic flares, most recently 2 weeks ago but this is worse than before and his pain is 8/10 and epigastric. He vomited bile 3x at home before coming in. Also having some bilateral upper chest pain which he thinks is pleurisy from the pancreatitis. Patient on amiodarone until he can get an ablation in May to then come off of it. He was unaware that amiodarone can precipitate pancreatitis. He will see GI in 2 weeks as outpatient. He currently denies CP, dyspnea, palpitations or diarrhea. Patient History Medical History Acute dehydration Atrial flutter with rapid ventricular response Campylobacter enteritis Claudication in peripheral vascular disease Enteritis, enteropathogenic E. coli Exocrine pancreatic insufficiency Gastroenteritis GERD (gastroesophageal reflux disease) History of cardioversion (03/07/21) HTN (hypertension) Hyperlipidemia Insulin dependent diabetes mellitus with complications Narcolepsy Nausea vomiting and diarrhea Pancreatic endocrine tumor Pancreatitis Paroxysmal atrial fibrillation Peripheral vascular disease Psoriasis Sepsis Surgical History H/O exploratory laparotomy History of epididymectomy History of femoropopliteal bypass Hx of biopsy Family & Social History Family History Father Colon cancer Mother Narcolepsy Grandmother Narcolepsy Social History: household members significant other Safety & Behavioral: Feels Safe in Current Yes Environment Tobacco & Substance use: Tobacco type cigarettes Smoking Status Former smoker alcohol intake former alcohol intake frequency 0-2 drinks per day Substance Use Type marijuana Meds Home Medications and Allergies Home Medications Medication Instructions Recorded Confirmed Type clopidogrel 75 mg tablet (Plavix) 75 mg PO QAM ##0 04/15/08 04/25/22 History acetaminophen 325 mg tablet (Pain 500 mg PO Q4HP PRN Pain, Mild 09/25/17 04/25/22 History Relief (acetaminophen)) dabigatran etexilate 150 mg 150 mg PO BID 03/24/18 04/25/22 History capsule (Pradaxa) pravastatin 80 mg tablet 80 mg PO BEDTIME ##0 02/13/19 04/25/22 History lisinopril 2.5 mg tablet 2.5 mg PO QAM blood pressure 04/28/19 04/25/22 History gentamicin 0.3 % eye drops 1 drp EYE-BOTH TID PRN Blepharitis 03/15/20 04/25/22 Rx #5 mL insulin lispro 100 unit/mL See Rx Instructions SUBCUT 03/15/20 04/25/22 History subcutaneous solution (Humalog USEASDIRECTD U-100 Insulin) [id number]-[id number]-dpcchas 1 cap PO QID #120 caps 03/15/20 04/25/22 Rx 24,000-76,000-120,000 unit capsule,delayed rel (Creon) promethazine 25 mg rectal 25 mg [place] Q6H PRN Nausea 06/17/20 04/25/22 History suppository diphenhydramine HCl 12.5 mg/5 mL 12.5 mg (5 mL) PO Q6H PRN nausea 03/15/21 04/25/22 Rx oral elixir and vomiting #500 mL azelastine 2 spray intranasal PRN PRN 05/30/21 04/25/22 History Bronchospasm duloxetine 60 mg capsule,delayed 60 mg PO QAM 11/01/21 04/25/22 History release (Cymbalta) ipratropium 20 mcg-albuterol 100 1 puff inhalation Q4H PRN wheezing 11/01/21 04/25/22 History mcg/actuation mist for inhalation (Combivent Respimat) ondansetron 8 mg disintegrating 4 mg PO PRN PRN nausea/vomiting 02/25/22 04/25/22 History tablet amiodarone 200 mg tablet 200 mg PO DAILY #90 tabs 03/03/22 04/25/22 Rx metoprolol succinate 100 mg 100 mg PO DAILY #90 tabs 03/03/22 04/25/22 Rx tablet,extended release 24 hr (Toprol XL) trazodone 50 mg tablet 50 mg PO BEDTIME PRN insomnia #30 03/03/22 04/25/22 Rx tabs oxycodone 7.5 mg tablet,oral ONLY 7.5 mg PO Q4H PRN pain #30 ea 04/18/22 04/25/22 Rx (not for feeding tubes) sennosides 8.6 mg tablet (senna) 17.2 mg PO BEDTIME #30 tabs 04/18/22 04/25/22 Rx methylphenidate HCl 20 mg tablet 20 mg PO TID #90 ea 04/24/22 04/25/22 Rx Allergies Allergy/AdvReac Type Severity Reaction Status Date / Time Iodine and Iodide Containing Allergy Severe Anaphylaxis Verified 04/10/22 18:24 Produc [IODINE AND IODIDE CONTAINING PRODUC] Sulfa (Sulfonamide Allergy Severe Anaphylaxis Verified 04/10/22 18:24 Antibiotics) [SULFA (SULFONAMIDE ANTIBIOTICS)] gabapentin AdvReac Intermediate Dizziness Verified 04/10/22 18:24 Obaacmp-[id number] Reductase AdvReac Intermediate Verified 04/10/22 18:24 Inhibitor metformin AdvReac Mild Verified 04/10/22 18:24 Review of Systems Review of Systems Narrative: All other systems reviewed with the patient and are negative unless otherwise stated. Exam Vital Signs (past 8 hours): - 04/25/22 12:43 04/25/22 13:44 04/25/22 13:38 Temperature 98.2 F 98.2 F Pulse Rate 77 71 Respiratory Rate 18 19 Blood Pressure 127/69 121/65 121/65 Pulse Oximetry 99 99 Oxygen Delivery Method Room Air Room Air 04/25/22 13:38 04/25/22 14:00 04/25/22 14:00 Temperature Pulse Rate 71 75 Respiratory Rate 20 Blood Pressure 136/79 Pulse Oximetry 98 99 Oxygen Delivery Method 04/25/22 14:05 04/25/22 14:05 Temperature Pulse Rate 74 Respiratory Rate 24 Blood Pressure 129/74 Pulse Oximetry 100 Oxygen Delivery Method Oxygen Delivery Method Room Air Narrative Exam Narrative: GEN: mild distress HEENT: moist mucous membranes, PERRL NECK: trachea midline, no JVD CV: regular rate and rhythm, no murmurs PULM: clear bilaterally ABD: severe epigastric pain with guarding EXT: warm and well perfused with no edema NEURO: awake, alert, oriented, no focal deficits Objective Labs 04/25/22 13:00 04/25/22 13:00 Labs: Laboratory Results - last 24 hr 04/25/22 04/25/22 04/25/22 13:00 13:00 13:00 WBC 5.9 RBC 4.33 L Hgb 12.6 L Hct 38.0 L MCV 87.9 MCH 29.2 MCHC 33.2 RDW 14.7 Plt Count 262 Neut % (Auto) 61.8 Lymph % (Auto) 22.8 L [place] % (Auto) 10.0 Eos % (Auto) 4.6 H Baso % (Auto) 0.8 Neut # (Auto) 3700 Lymph # (Auto) 1400 [place] # (Auto) 600 Eos # (Auto) 300 Baso # (Auto) 100 PT 12.1 INR 1.1 APTT 39 H Sodium 140 Potassium 3.7 Chloride 100 Carbon Dioxide 30 BUN 14 Creatinine 0.64 L Estimated GFR > 60 BUN/Creatinine Ratio 21.9 Glucose 110 Calcium 8.9 Magnesium 1.6 Total Bilirubin 0.1 L AST 23 ALT 21 Alkaline Phosphatase 82 Total Creatine Kinase 54 L CK-MB (CK-2) TNP CK-MB (CK-2) Rel Index TNP Troponin I < 0.012 Total Protein 7.1 Albumin 4.3 Globulin 2.8 Albumin/Globulin Ratio 1.5 Lipase 2407 H D Assessment & Plan Assessment & Plan narrative: # acute on chronic pancreatitis, with multiple past episodes -Lipase 2407, patient thinks this episode was precipitated by new soy sausages he added to his diet. Has multiple recurrent episodes but more spaced out since his lap sharad in May 2021 -IVF at 150cc/hr -full liquid diet and advance as tolerated -pain control with IV dilaudid and oxycodone PRN -ativan, compazine and zofran PRN for NV -trend lipase -continue home creon enzymes -if not improving will obtain CT imaging # Paroxysmal A-fib -currently in SR -continue amiodarone, metoprolol and pradaxa # DM2 -low dose SSI -last A1c 8% # Narcolepsy -continue home ritalin # PAD s/p angioplasty and stent -continue home plavix # HTN -continue home lisinopril # HLD -continue home statin # insomnia -continue home trazodone # depression -continue home cymbalta Code status is DNR. Patient maintains despite his age he would not want to be resuscitated. COVID negative. DVT prophylaxis with Pradaxa. Proxy is partner Yisel. I have reviewed home meds and used all available resources to reconcile the home meds. This patient will be admitted as inpatient and will require greater than 2 midnights of hospital time to treat acute on chronic pancreatitis. Time Spent With Patient Critical Care time: I spent a total of [] minutes of critical care time on this patient's care today; this time is exclusive of procedural time.
[2022-04-25 14:22] LABS: Cholesterol 187 mg/dL (140-199); HDL Cholesterol 46 mg/dL (40-60); LDL Cholesterol Calculated 114 mg/dL (<100); Triglycerides 133 mg/dL (35-150)
[2022-04-25] MEDS: MAGNESIUM SULFATE 2 GM/50 ML PIGGYBACK IV (15:00)
[2022-04-25] MEDS: METHYLPHENIDATE 5 MG TABLET 20 MG PO (15:00)
[2022-04-25] MEDS: HYDROMORPHONE 0.5 MG INJ 1 MG IV ×2 (15:37→22:00)
[2022-04-25] MEDS: PROMETHAZINE 25 MG TABLET PO (15:37)
[2022-04-25] MEDS: ACETAMINOPHEN 325 MG TABLET 650 MG PO ×2 (16:26→21:44)
[2022-04-25] MEDS: LIPASE/PROTEASE/AMYLASE 5/17/24 CAP 4 CAP PO ×2 (16:44→21:45)
[2022-04-25] MEDS: OXYCODONE IR 10 MG TABLET PO (16:44)
--- NOTE | 2022-04-25 17:12 | PC.NURSE ---
1530 Pt admitted to room 218 from ER. Oriented to room, call light, bed controls, and tv controls. SCD's on and running. IVF infusing as ordered. Pt given pain meds and anti-nausea medication. Discussed pain control measures with Dr. Jane since Dilaudid was given at 1537 with minimal improvement to pain level. Oxycodone 10mg was given at 1644 and Pt states it is starting to work. Tylenol was also given at 1639 with minimal effect. Pt aware he must not try to get up without assistance. Bed alarm on for safety.
[2022-04-25] MEDS: ONDANSETRON 4 MG/2 ML INJ IV (17:24)
[2022-04-25 17:26] LABS: COVID19 -Nasal RAPID Negative (Negative)
[2022-04-25] MEDS: LORazepam 2 MG/ML INJ 0.5 MG IV (18:40)
[2022-04-25] MEDS: DABIGATRAN 75 MG CAPSULE 150 MG PO (21:43)
[2022-04-25] MEDS: PRAVASTATIN 20 MG TABLET 80 MG PO (21:43)
[2022-04-25] MEDS: TRAZODONE 50 MG TABLET PO (21:45)
[2022-04-25] MEDS: MELATONIN 3 MG TABLET 6 MG PO (21:45)
[2022-04-25] MEDS: SENNOSIDES 8.6 MG TABLET 17.2 MG PO (21:45)
[2022-04-25] MEDS: SODIUM CHLORIDE 0.9% 1,000 ML 150 ML IV (22:49)
[2022-04-26] VITALS (10 sets, daily range): BP systolic 78–122; BP diastolic 46–68; PULSE 56–68; RESP 14–20; TEMP 35.8–36.9; O2SAT 96–99
[2022-04-26] MEDS: ONDANSETRON 4 MG/2 ML INJ IV ×4 (00:50→17:55)
[2022-04-26] MEDS: SODIUM CHLORIDE 0.9% 1,000 ML 1000 ML IV ×2 (05:26→06:27)
--- NOTE | 2022-04-26 05:35 | PC.NURSE ---
Provider Notified @0511 Attending provider, Flakito Gauthier, was notified of pt's change in vital signs. BP:78/48 mmHg. New orders given for Once, 0.9% Normal Saline 1000 mL IV bolus over one hour, repeated back, and administered per MAY orders.
[2022-04-26 05:56] LABS: Add Manual Diff / Slide Review NO; Basophils Absolute Auto 0 /uL (0-100); Basophils Percent Auto 0.6 % (0-2); Eosinophils Absolute Auto 300 /uL (0-450); Eosinophils Percent Auto 5.7 % (2-4); Hematocrit 33.6 % (41-53); Hemoglobin 11.1 g/dL (13.5-17.5); Lymphocytes Absolute Auto 1400 /uL (1100-4500); Lymphocytes Percent Auto 25.5 % (25-40); Mean Corpuscular Hemoglobin 29.5 PG (26-34); Mean Corpuscular Volume 89.2 fL (80-100); Monocytes Absolute Auto 600 /uL (0-900); Monocytes Percent Auto 10.4 % (3-14); Neutrophils Absolute Auto 3100 /uL (1500-7000); Neutrophils Percent Auto 57.8 % (50-75); Platelet Count 223 X10^3/uL (150-400); Red Blood Cell Count 3.77 X10^6/uL (4.5-5.9); Red Cell Distribution Width 14.6 % (11.6-14.8); White Blood Cell Count 5.4 X10^3/uL (4.5-11.0)
[2022-04-26 06:27] LABS: BUN Creatinine Ratio 15.5 (6-22); Blood Urea Nitrogen 9 mg/dL (9-20); Carbon Dioxide 28 mmol/L (22-32); Chloride 106 mmol/L (98-107); Estimated Glomerular Filt Rate > 60 mL/min (>60); Glucose 110 mg/dL (80-110); HEMOLYSIS < 15 (0-50); Sodium 138 mmol/L (137-145)
[2022-04-26 06:28] LABS: Lipase 130 U/L (23-300); Magnesium 1.9 mg/dL (1.6-2.3)
[2022-04-26] MEDS: ACETAMINOPHEN 325 MG TABLET 650 MG PO (06:49)
[2022-04-26 07:31] LABS: Lactate (Lactic Acid) 0.7 mmol/L (0.7-2.1)
[2022-04-26] MEDS: SODIUM CHLORIDE 0.9% 1,000 ML 150 ML IV ×2 (07:33→14:02)
--- NOTE | 2022-04-26 07:34 | P.PN_ITS ---
Subjective Subjective Date Patient Seen: 04/26/22 Interval history: Patient still having epigastric abdominal pain and especially with po intake. Overnight had BP of 78/48 and given 2L boluses and now improved to 119/56. Hasn't had BM in a few days and requesting suppository. Exam Vital Signs (past 8 hours): - 04/26/22 00:00 04/26/22 04:00 04/26/22 06:00 Temperature 96.5 F L 96.8 F L 97.4 F L Pulse Rate 64 56 L 63 Respiratory Rate 20 18 14 Blood Pressure 89/48 L 85/46 L 91/51 L Pulse Oximetry 97 98 99 Oxygen Flow Rate 0 0 04/26/22 05:05 04/26/22 05:46 Temperature 98.5 F Pulse Rate 58 L Respiratory Rate 18 Blood Pressure 78/48 L Pulse Oximetry 96 Oxygen Flow Rate Oxygen Delivery Method Room Air Oxygen Flow Rate 0 Narrative Exam Narrative: GEN: mild distress, appears to be in pain HEENT: moist mucous membranes, PERRL NECK: trachea midline, no JVD CV: regular rate and rhythm, no murmurs PULM: clear bilaterally ABD: severe epigastric pain with guarding EXT: warm and well perfused with no edema NEURO: awake, alert, oriented, no focal deficits Objective Labs 04/26/22 05:20 04/26/22 05:20 Labs: Laboratory Results - last 24 hr 04/25/22 04/25/22 04/25/22 13:00 13:00 13:00 WBC 5.9 RBC 4.33 L Hgb 12.6 L Hct 38.0 L MCV 87.9 MCH 29.2 MCHC 33.2 RDW 14.7 Plt Count 262 Neut % (Auto) 61.8 Lymph % (Auto) 22.8 L [place] % (Auto) 10.0 Eos % (Auto) 4.6 H Baso % (Auto) 0.8 Neut # (Auto) 3700 Lymph # (Auto) 1400 [place] # (Auto) 600 Eos # (Auto) 300 Baso # (Auto) 100 PT 12.1 INR 1.1 APTT 39 H Sodium 140 Potassium 3.7 Chloride 100 Carbon Dioxide 30 BUN 14 Creatinine 0.64 L Estimated GFR > 60 BUN/Creatinine Ratio 21.9 Glucose 110 Lactate Calcium 8.9 Magnesium 1.6 Total Bilirubin 0.1 L AST 23 ALT 21 Alkaline Phosphatase 82 Total Creatine Kinase 54 L CK-MB (CK-2) TNP CK-MB (CK-2) Rel Index TNP Troponin I < 0.012 Total Protein 7.1 Albumin 4.3 Globulin 2.8 Albumin/Globulin Ratio 1.5 Triglycerides Cholesterol LDL Cholesterol, Calc HDL Cholesterol Lipase 2407 H D SARS-CoV-2 (PCR) 04/25/22 04/25/22 04/26/22 13:00 16:57 05:20 WBC RBC Hgb Hct MCV MCH MCHC RDW Plt Count Neut % (Auto) Lymph % (Auto) [place] % (Auto) Eos % (Auto) Baso % (Auto) Neut # (Auto) Lymph # (Auto) [place] # (Auto) Eos # (Auto) Baso # (Auto) PT INR APTT Sodium Potassium Chloride Carbon Dioxide BUN Creatinine Estimated GFR BUN/Creatinine Ratio Glucose Lactate Calcium Magnesium 1.9 Total Bilirubin AST ALT Alkaline Phosphatase Total Creatine Kinase CK-MB (CK-2) CK-MB (CK-2) Rel Index Troponin I Total Protein Albumin Globulin Albumin/Globulin Ratio Triglycerides 133 Cholesterol 187 LDL Cholesterol, Calc 114 H HDL Cholesterol 46 Lipase 130 D SARS-CoV-2 (PCR) Negative 04/26/22 04/26/22 04/26/22 05:20 05:20 07:00 WBC 5.4 RBC 3.77 L Hgb 11.1 L Hct 33.6 L MCV 89.2 MCH 29.5 MCHC 33.0 RDW 14.6 Plt Count 223 Neut % (Auto) 57.8 Lymph % (Auto) 25.5 [place] % (Auto) 10.4 Eos % (Auto) 5.7 H Baso % (Auto) 0.6 Neut # (Auto) 3100 Lymph # (Auto) 1400 [place] # (Auto) 600 Eos # (Auto) 300 Baso # (Auto) 0 PT INR APTT Sodium 138 Potassium 4.0 Chloride 106 Carbon Dioxide 28 BUN 9 Creatinine 0.58 L Estimated GFR > 60 BUN/Creatinine Ratio 15.5 Glucose 110 Lactate 0.7 Calcium 8.0 L Magnesium Total Bilirubin AST ALT Alkaline Phosphatase Total Creatine Kinase CK-MB (CK-2) CK-MB (CK-2) Rel Index Troponin I Total Protein Albumin Globulin Albumin/Globulin Ratio Triglycerides Cholesterol LDL Cholesterol, Calc HDL Cholesterol Lipase SARS-CoV-2 (PCR) [facility] Medical History Acute dehydration Atrial flutter with rapid ventricular response Campylobacter enteritis Claudication in peripheral vascular disease Enteritis, enteropathogenic E. coli Exocrine pancreatic insufficiency Gastroenteritis GERD (gastroesophageal reflux disease) History of cardioversion (03/07/21) HTN (hypertension) Hyperlipidemia Insulin dependent diabetes mellitus with complications Narcolepsy Nausea vomiting and diarrhea Pancreatic endocrine tumor Pancreatitis Paroxysmal atrial fibrillation Peripheral vascular disease Psoriasis Sepsis Surgical History H/O exploratory laparotomy History of epididymectomy History of femoropopliteal bypass Hx of biopsy Family History Father Colon cancer Mother Narcolepsy Grandmother Narcolepsy Social History household members: spouse Smoking Status: Former smoker alcohol intake: former Assessment & Plan Assessment & Plan narrative: # acute on chronic pancreatitis, with multiple past episodes -Lipase 240, patient thinks this episode was precipitated by new soy sausages he added to his diet. Has multiple recurrent episodes but more spaced out since his lap sharad in May 2021 -IVF at 150cc/hr -initially on full liquid diet but changed to NPO due to ongoing pain with po intake -pain control with IV dilaudid and oxycodone PRN -ativan, compazine and zofran PRN for NV -lipase now 130 -continue home creon enzymes -if not improving will obtain CT imaging -patient has call with GI doc at 4pm for any ideas concerning his pancreatitis today # acute hypotension, resolved -overnight on 04/25-04/26 had BP of 78/48 and given 2L NS boluses, now improved -do not suspect sepsis as no leukocytosis and afebrile -holding home BP meds, can continue amio # Paroxysmal A-fib -currently in SR -continue amiodarone, metoprolol and pradaxa -do not want to stop amio due to concern for converting to a-flutter, but amio can exacerbate pancreatitis # DM2 -low dose SSI -last A1c 8% # Narcolepsy -continue home ritalin # PAD s/p angioplasty and stent -continue home plavix # HTN -continue home lisinopril # HLD -continue home statin # insomnia -continue home trazodone # depression -continue home cymbalta Code status is DNR. Patient maintains despite his age he would not want to be resuscitated. COVID negative. DVT prophylaxis with Pradaxa. Proxy is partner Yisel. Dispo: Home in 2 days pending improvement in abd pain and po intake. Time Spent With Patient Critical Care time: I spent a total of [] minutes of critical care time on this patient's care today; this time is exclusive of procedural time. Quality VTE Deep Vein Thrombosis/Pulmonary Embolism Present on Admission: No
[2022-04-26] MEDS: LIPASE/PROTEASE/AMYLASE 5/17/24 CAP 4 CAP PO ×2 (08:44→12:49)
[2022-04-26] MEDS: METHYLPHENIDATE 5 MG TABLET 20 MG PO ×2 (08:45→14:03)
[2022-04-26] MEDS: AMIODARONE 200 MG TABLET PO (08:45)
[2022-04-26] MEDS: CLOPIDOGREL 75 MG TABLET PO (08:45)
[2022-04-26] MEDS: OXYCODONE IR 10 MG TABLET PO (08:45)
[2022-04-26] MEDS: DULOXETINE 30 MG CAPSULE 60 MG PO (08:45)
[2022-04-26] MEDS: DABIGATRAN 75 MG CAPSULE 150 MG PO ×2 (08:45→21:13)
[2022-04-26] MEDS: LORazepam 2 MG/ML INJ 0.5 MG IV (09:35)
[2022-04-26] MEDS: polyethylene glycoL 3350 17 GM POWD.PACK PO (11:33)
[2022-04-26] MEDS: INSULIN LISPRO 100 UNIT/ML 3ML VIAL SUBCUT (12:47)
[2022-04-26] MEDS: HYDROMORPHONE 0.5 MG INJ IV (12:48)
[2022-04-26] MEDS: LIDOCAINE PATCH 1 EACH ADH..PATCH TOP (12:50)
[2022-04-26] MEDS: BISACODYL 10 MG SUPP PR (12:51)
--- NOTE | 2022-04-26 12:59 | CM.DANOTE ---
DCP: Assessment: 67 yo male admitted to ED on 04.25.2022 via pov with c/o abdominal pain and diagnosed with acute pancreatitis, atrial flutter with RVR. Pt has hx of Agent orange exposure. He was last admitted here at [facility] from 04.10.2022-04.18.2022 with Pancreatitis. PCP: Eric Huang Insurance: [facility]; [facility] [employer] This CM met with pt in his room. Introduced self and role. Pt A+Ox4, laying in his bed. Pt confirms that his main contact is my Yisel He gives permission to speak with her to support with ongoing care if needed. Pt confirms that he drives when I am well, has a cane at home but does not use it. Pt reports that he has been utilizing [email or web address] at home and that he will go home with [facility] when he is discharged. This CM notified Leora Chance, Relationship Associate at [facility] that this pt is here under 's care. Face to Face completed to assist in Resumption of care. P: Home with [facility] when medically stable. Sharlene Sanchez RN, Qa Reviewer Discharge Planning/Care Management CM Discharge Assessment Start: 04/26/22 12:50 Freq: Status: Active Protocol: Document 04/26/22 12:50 BRIDGET (Rec: 04/26/22 12:58 BRIDGET [id number]) Discharge Planning Assessment Assigned [employer] Sharlene Sanchez RN Case Manager Advance Directives? Yes- Advance Directive Advance Directives on File Yes History Provided By Patient,Medical Record Has Patient been admitted in last 30 Yes days? Comment Last hospital stay 04/10-04/18, Acute Pancreatitis Prior Living Arrangements House Household Members spouse Type of transporation used prior to Drives own vehicle admit Independent with ADL's Yes Is patient alert and oriented? Yes Caregiver for Another No Comment has cane, does not currently use. Patient/Family Preference Home with Home Health Comment Pt has been utilizing [email or web address]. Barriers to Discharge No Discharge Plan Home with Home Health Transportation Arrangement or supportive family friend will provide transport. Referrals Initiated Home Health If patient plan is home with home health Yes : Has signed face to face form been completed? Whiteboard Updated in Patient Room with Yes name and ext. # of [employer] Review Status In Process Next Review Type Continued Stay Review
--- NOTE | 2022-04-26 13:24 | DIET.CONS2 ---
Dietary Inpatient Consultation Note Admission Date: 04/25/2022 13:56 67y M admitted for pancreatitis after consuming new type of soy sausage. Pt with excellent adherence to Creon enzyme therapy and keen understanding of nutrition which works for his body. Pt has been unable to advance his diet past BRAT type diet (with addition of steel cut oats) as he starts to get abd pain. Pt able to consume orange lentils, but not black, which is unusual for him. Kitchen to send soymilk with all meal trays as well as Orgain pea protein shakes as desired. RD following for PO tolerance. Diet: 04/26/22 12:12 NPO Diet Diet Modifications: NPO Type: NPO except for Meds Nutrition Percent Meal Consumed 100% 04/26/22 09:00 Percent Meal Consumed 10% 04/25/22 18:00 Electronically Signed by: Jennifer Hercules 04/26/22 13:24 Clinical Dietitian [address] [id number]
[2022-04-26] MEDS: HYDROMORPHONE 0.5 MG INJ 1 MG IV ×2 (17:56→21:10)
[2022-04-26] MEDS: MELATONIN 3 MG TABLET 6 MG PO (21:13)
[2022-04-26] MEDS: SENNOSIDES 8.6 MG TABLET 17.2 MG PO (21:13)
[2022-04-26] MEDS: TRAZODONE 50 MG TABLET PO (21:13)
[2022-04-26] MEDS: PRAVASTATIN 20 MG TABLET 80 MG PO (21:14)
[2022-04-26] MEDS: PROMETHAZINE 25 MG TABLET PO (21:27)
[2022-04-27] VITALS (7 sets, daily range): BP systolic 97–122; BP diastolic 53–66; PULSE 66–74; RESP 16–19; TEMP 36.1–36.4; O2SAT 93–100
[2022-04-27] MEDS: ONDANSETRON 4 MG/2 ML INJ IV ×4 (00:10→17:08)
[2022-04-27] MEDS: HYDROMORPHONE 0.5 MG INJ 1 MG IV ×4 (00:11→10:54)
[2022-04-27] MEDS: SODIUM CHLORIDE 0.9% 1,000 ML 150 ML IV ×3 (04:58→18:37)
[2022-04-27] MEDS: METHYLPHENIDATE 5 MG TABLET 20 MG PO ×3 (05:33→15:09)
[2022-04-27 06:27] LABS: Add Manual Diff / Slide Review NO; Basophils Absolute Auto 0 /uL (0-100); Basophils Percent Auto 0.6 % (0-2); Eosinophils Absolute Auto 200 /uL (0-450); Eosinophils Percent Auto 4.4 % (2-4); Hematocrit 33.1 % (41-53); Hemoglobin 11.2 g/dL (13.5-17.5); Lymphocytes Absolute Auto 1000 /uL (1100-4500); Lymphocytes Percent Auto 19.3 % (25-40); Mean Corpuscular HGB Conc 33.9 % (30-36); Mean Corpuscular Hemoglobin 29.8 PG (26-34); Mean Corpuscular Volume 87.9 fL (80-100); Monocytes Absolute Auto 300 /uL (0-900); Monocytes Percent Auto 6.9 % (3-14); Neutrophils Absolute Auto 3500 /uL (1500-7000); Neutrophils Percent Auto 68.8 % (50-75); Platelet Count 222 X10^3/uL (150-400); Red Blood Cell Count 3.76 X10^6/uL (4.5-5.9); Red Cell Distribution Width 14.5 % (11.6-14.8); White Blood Cell Count 5.1 X10^3/uL (4.5-11.0)
[2022-04-27 06:35] LABS: Blood Urea Nitrogen 6 mg/dL (9-20); Calcium 7.9 mg/dL (8.4-10.2); Carbon Dioxide 24 mmol/L (22-32); Chloride 110 mmol/L (98-107); Estimated Glomerular Filt Rate > 60 mL/min (>60); Glucose 81 mg/dL (80-110); HEMOLYSIS < 15 (0-50); Potassium 3.9 mmol/L (3.4-5.1); Sodium 140 mmol/L (137-145)
--- NOTE | 2022-04-27 08:14 | PM.PN.1 ---
Subjective Subjective Date Patient Seen: 04/27/22 Interval history: Abdominal pain slowly improving. Being NPO helped. Able to sleep through the night. Requesting ice chips. Exam Vital Signs (past 8 hours): - 04/27/22 00:25 04/27/22 05:10 Temperature 96.9 F L 97.3 F L Pulse Rate 66 66 Respiratory Rate 19 18 Blood Pressure 116/58 L 97/53 L Pulse Oximetry 96 95 Oxygen Flow Rate 0 0 Oxygen Delivery Method Room Air Oxygen Flow Rate 0 Narrative Exam Narrative: GEN: no distress, appears to be in pain HEENT: moist mucous membranes, PERRL NECK: trachea midline, no JVD CV: regular rate and rhythm, no murmurs PULM: clear bilaterally ABD: improving epigastric pain now without guarding EXT: warm and well perfused with no edema NEURO: awake, alert, oriented, no focal deficits Objective Labs 04/27/22 05:30 04/27/22 05:30 Labs: Laboratory Results - last 24 hr 04/27/22 04/27/22 05:30 05:30 WBC 5.1 RBC 3.76 L Hgb 11.2 L Hct 33.1 L MCV 87.9 MCH 29.8 MCHC 33.9 RDW 14.5 Plt Count 222 Neut % (Auto) 68.8 Lymph % (Auto) 19.3 L [place] % (Auto) 6.9 Eos % (Auto) 4.4 H Baso % (Auto) 0.6 Neut # (Auto) 3500 Lymph # (Auto) 1000 L [place] # (Auto) 300 Eos # (Auto) 200 Baso # (Auto) 0 Sodium 140 Potassium 3.9 Chloride 110 H Carbon Dioxide 24 BUN 6 L Creatinine 0.60 L Estimated GFR > 60 BUN/Creatinine Ratio 10.0 Glucose 81 Calcium 7.9 L [facility] Medical History Acute dehydration Atrial flutter with rapid ventricular response Campylobacter enteritis Claudication in peripheral vascular disease Enteritis, enteropathogenic E. coli Exocrine pancreatic insufficiency Gastroenteritis GERD (gastroesophageal reflux disease) History of cardioversion (03/07/21) HTN (hypertension) Hyperlipidemia Insulin dependent diabetes mellitus with complications Narcolepsy Nausea vomiting and diarrhea Pancreatic endocrine tumor Pancreatitis Paroxysmal atrial fibrillation Peripheral vascular disease Psoriasis Sepsis Surgical History H/O exploratory laparotomy History of epididymectomy History of femoropopliteal bypass Hx of biopsy Family History Father Colon cancer Mother Narcolepsy Grandmother Narcolepsy Social History household members: spouse Smoking Status: Former smoker alcohol intake: former Assessment & Plan Assessment & Plan narrative: # acute on chronic pancreatitis, with multiple past episodes -Lipase 240, patient thinks this episode was precipitated by new soy sausages he added to his diet. Has multiple recurrent episodes but more spaced out since his lap sharad in May 2021 -continue IVF at 150cc/hr -initially on full liquid diet but changed to NPO due to ongoing pain with po intake, add ice chips -pain control with IV dilaudid and oxycodone PRN -ativan, compazine and zofran PRN for NV -lipase now 130 -continue home creon enzymes -if not improving will obtain CT imaging -patient spoke with his GI doc over the phone on 04/27, they are requesting labs to be faxed # acute hypotension, resolved -overnight on 04/25-04/26 had BP of 78/48 and given 2L NS boluses, now improved -do not suspect sepsis as no leukocytosis and afebrile -holding home BP meds, can continue amio # Paroxysmal A-fib -currently in SR -continue amiodarone, metoprolol and pradaxa -do not want to stop amio due to concern for converting to a-flutter, but amio can exacerbate pancreatitis # DM2 -low dose SSI -last A1c 8% # Narcolepsy -continue home ritalin # PAD s/p angioplasty and stent -continue home plavix # HTN -continue home lisinopril # HLD -continue home statin # insomnia -continue home trazodone # depression -continue home cymbalta Code status is DNR. Patient maintains despite his age he would not want to be resuscitated. COVID negative. DVT prophylaxis with Pradaxa. Proxy is partner Yisel. Dispo: Home in 2 days pending improvement in abd pain and po intake. Time Spent With Patient Critical Care time: I spent a total of [] minutes of critical care time on this patient's care today; this time is exclusive of procedural time. Quality VTE Deep Vein Thrombosis/Pulmonary Embolism Present on Admission: No
[2022-04-27] MEDS: CLOPIDOGREL 75 MG TABLET PO (08:20)
[2022-04-27] MEDS: AMIODARONE 200 MG TABLET PO (08:20)
[2022-04-27] MEDS: DULOXETINE 30 MG CAPSULE 60 MG PO (08:20)
[2022-04-27] MEDS: LIDOCAINE PATCH 1 EACH ADH..PATCH TOP (08:20)
[2022-04-27] MEDS: DABIGATRAN 75 MG CAPSULE 150 MG PO ×2 (08:20→20:27)
[2022-04-27] MEDS: PROMETHAZINE 25 MG TABLET PO ×2 (08:20→15:09)
[2022-04-27] MEDS: DEXTROSE 50 % IN WATER 25 GM/50 ML SYRINGE IV (11:46)
[2022-04-27] MEDS: HYDROMORPHONE 1 MG INJ IV ×2 (15:10→18:52)
[2022-04-27] MEDS: PROCHLORPERAZINE 10 MG/2 ML VIAL IV (18:51)
[2022-04-27] MEDS: LORazepam 2 MG/ML INJ 0.5 MG IV (18:52)
[2022-04-27] MEDS: PRAVASTATIN 20 MG TABLET 80 MG PO (20:27)
[2022-04-27] MEDS: SENNOSIDES 8.6 MG TABLET 17.2 MG PO (20:27)
--- NOTE | 2022-04-28 | DI.MRI.S_ITS ---
PROCEDURE: MR AB PANCREATIC/MRCP PROTOCOL INDICATIONS: pancreatitis TECHNIQUE: Coronal HASTE through the abdomen, axial 2-D FLASH in- and [id number]-sawrf, and breath-hold T2 FSE with fat saturation through the biliary system and pancreas. Oblique coronal and axial thin-slice HASTE, radial thick-slab HASTE centered on the extrahepatic bile ducts. Intravenous secretin: Not requested. COMPARISON: [facility], MR, MR ABDOMEN WO CON, 04/29/2019, 12:13. [facility], CT, CT CHEST ABD PEL W CON, 04/15/2022, 17:14. FINDINGS: Image quality: Adequate Pancreas and biliary system: Intra- and extra-hepatic biliary ducts are non dilated. No evidence of choledocholithiasis. Pancreas is normal in morphology, without adjacent soft tissue edema. Pancreatic duct is normal in caliber. Gallbladder is absent . Other solid organs: Liver is normal in size. Spleen is normal in size. No adrenal nodules. Both kidneys are normal in size, without hydronephrosis. Nodes and vessels: No retroperitoneal or mesenteric adenopathy by size criteria. Aorta and inferior vena cava are normal in size. Bowel and peritoneum: Unenhanced bowel loops are normal in caliber. No substantial free fluid. Lung bases: Small bilateral pleural effusions. IMPRESSION: 1. No definite MRI evidence of acute pancreatitis. Correlation with the patient's symptoms and serum lipase levels may be helpful. No organized peripancreatic fluid collection visualized. 2. No biliary ductal dilation or evidence of choledocholithiasis. 3. Prior cholecystectomy. 4. Small bilateral pleural effusions. Dictated by: Branden Marie M.D. on 04/28/2022 at 16:37 Approved by: Branden Marie M.D. on 04/28/2022 at 16:52
[2022-04-28 01:10] VITALS: BP 118/63; PULSE 67; RESP 18; TEMP 36.1; O2SAT 99
[2022-04-28] MEDS: SODIUM CHLORIDE 0.9% 1,000 ML 150 ML IV ×2 (02:06→09:23)
[2022-04-28] MEDS: HYDROMORPHONE 1 MG INJ IV ×5 (03:24→23:40)
[2022-04-28] MEDS: ONDANSETRON 4 MG/2 ML INJ IV ×4 (03:24→21:18)
[2022-04-28] MEDS: DEXTROSE 50 % IN WATER 25 GM/50 ML SYRINGE IV ×2 (03:38→12:56)
--- NOTE | 2022-04-28 04:31 | PC.NURSE ---
[facility] glucose check was 74. No insulin given per protocol. Glucose rechecked at 0330, reading 65. Gave 1/2 amp D50W (12.5 mg) per protocol. Recheck at 0400 was 121. Patient asymptomatic through night.
[2022-04-28 05:56] LABS: BUN Creatinine Ratio 9.1 (6-22); Blood Urea Nitrogen 5 mg/dL (9-20); Calcium 7.8 mg/dL (8.4-10.2); Carbon Dioxide 18 mmol/L (22-32); Chloride 110 mmol/L (98-107); Estimated Glomerular Filt Rate > 60 mL/min (>60); Glucose 86 mg/dL (80-110); HEMOLYSIS 20 (0-50); Potassium 3.7 mmol/L (3.4-5.1); Sodium 138 mmol/L (137-145)
[2022-04-28 05:58] LABS: Add Manual Diff / Slide Review NO; Basophils Absolute Auto 0 /uL (0-100); Basophils Percent Auto 0.4 % (0-2); Eosinophils Absolute Auto 200 /uL (0-450); Eosinophils Percent Auto 4.1 % (2-4); Hematocrit 33.9 % (41-53); Hemoglobin 11.6 g/dL (13.5-17.5); Lymphocytes Absolute Auto 700 /uL (1100-4500); Lymphocytes Percent Auto 12.4 % (25-40); Mean Corpuscular HGB Conc 34.2 % (30-36); Mean Corpuscular Hemoglobin 29.8 PG (26-34); Monocytes Absolute Auto 300 /uL (0-900); Monocytes Percent Auto 5.6 % (3-14); Neutrophils Absolute Auto 4200 /uL (1500-7000); Neutrophils Percent Auto 77.5 % (50-75); Platelet Count 220 X10^3/uL (150-400); Red Blood Cell Count 3.89 X10^6/uL (4.5-5.9); Red Cell Distribution Width 14.4 % (11.6-14.8); White Blood Cell Count 5.5 X10^3/uL (4.5-11.0)
[2022-04-28] MEDS: METHYLPHENIDATE 5 MG TABLET 20 MG PO ×2 (06:55→12:42)
[2022-04-28 06:57] VITALS: BP 144/74; PULSE 71; RESP 19; TEMP 36.4; O2SAT 95
--- NOTE | 2022-04-28 07:37 | PM.PN.1 ---
Subjective Subjective Date Patient Seen: 04/28/22 Interval history: Still having ongoing abd pain and vomited twice today. Trying sips of water but has been unsuccessful. Exam Vital Signs (past 8 hours): - 04/28/22 01:10 04/28/22 06:57 Temperature 96.9 F L 97.6 F Pulse Rate 67 71 Respiratory Rate 18 19 Blood Pressure 118/63 144/74 H Pulse Oximetry 99 95 Oxygen Flow Rate 0 0 Oxygen Delivery Method Room Air Oxygen Flow Rate 0 Narrative Exam Narrative: GEN: no distress, appears to be in pain HEENT: moist mucous membranes, PERRL NECK: trachea midline, no JVD CV: regular rate and rhythm, no murmurs PULM: clear bilaterally ABD: improving epigastric pain now without guarding EXT: warm and well perfused with no edema NEURO: awake, alert, oriented, no focal deficits Objective Labs 04/28/22 05:15 04/28/22 05:15 Labs: Laboratory Results - last 24 hr 04/28/22 04/28/22 05:15 05:15 WBC 5.5 RBC 3.89 L Hgb 11.6 L Hct 33.9 L MCV 87.0 MCH 29.8 MCHC 34.2 RDW 14.4 Plt Count 220 Neut % (Auto) 77.5 H Lymph % (Auto) 12.4 L [place] % (Auto) 5.6 Eos % (Auto) 4.1 H Baso % (Auto) 0.4 Neut # (Auto) 4200 Lymph # (Auto) 700 L [place] # (Auto) 300 Eos # (Auto) 200 Baso # (Auto) 0 Sodium 138 Potassium 3.7 Chloride 110 H Carbon Dioxide 18 L BUN 5 L Creatinine 0.55 L Estimated GFR > 60 BUN/Creatinine Ratio 9.1 Glucose 86 Calcium 7.8 L PFSH Medical History Acute dehydration Atrial flutter with rapid ventricular response Campylobacter enteritis Claudication in peripheral vascular disease Enteritis, enteropathogenic E. coli Exocrine pancreatic insufficiency Gastroenteritis GERD (gastroesophageal reflux disease) History of cardioversion (03/07/21) HTN (hypertension) Hyperlipidemia Insulin dependent diabetes mellitus with complications Narcolepsy Nausea vomiting and diarrhea Pancreatic endocrine tumor Pancreatitis Paroxysmal atrial fibrillation Peripheral vascular disease Psoriasis Sepsis Surgical History H/O exploratory laparotomy History of epididymectomy History of femoropopliteal bypass Hx of biopsy Family History Father Colon cancer Mother Narcolepsy Grandmother Narcolepsy Social History household members: spouse Smoking Status: Former smoker alcohol intake: former Assessment & Plan Assessment & Plan narrative: # acute on chronic pancreatitis, with multiple past episodes -Lipase 240, patient thinks this episode was precipitated by new soy sausages he added to his diet. Has multiple recurrent episodes but more spaced out since his lap sharad in May 2021 -continue IVF at 150cc/hr -initially on full liquid diet but changed to NPO due to ongoing pain with po intake, now on clears -pain control with IV dilaudid and oxycodone PRN -ativan, compazine and zofran PRN for NV -lipase now 130 -continue home creon enzymes -abd pain still not improving, will obtain MRCP pancreatic protocol to evaluate further -patient spoke with his GI doc over the phone on 04/27, they are requesting labs to be faxed. They will also likely complete outpatient ERCP with EUS per patient. # acute hypotension, resolved -overnight on 04/25-04/26 had BP of 78/48 and given 2L NS boluses, now improved -do not suspect sepsis as no leukocytosis and afebrile -holding home BP meds, can continue amio # Paroxysmal A-fib -currently in SR -continue amiodarone, metoprolol and pradaxa -do not want to stop amio due to concern for converting to a-flutter, but amio can exacerbate pancreatitis # DM2 -low dose SSI -last A1c 8% # Narcolepsy -continue home ritalin # PAD s/p angioplasty and stent -continue home plavix # HTN -continue home lisinopril # HLD -continue home statin # insomnia -continue home trazodone # depression -continue home cymbalta Code status is DNR. Patient maintains despite his age he would not want to be resuscitated. COVID negative. DVT prophylaxis with Pradaxa. Proxy is partner Yisel. Dispo: Home in 2 days pending improvement in abd pain and po intake. Time Spent With Patient Critical Care time: I spent a total of [] minutes of critical care time on this patient's care today; this time is exclusive of procedural time. Quality VTE Deep Vein Thrombosis/Pulmonary Embolism Present on Admission: No
[2022-04-28 08:34] VITALS: PULSE 72; RESP 18; O2SAT 96
[2022-04-28] MEDS: ALBUTEROL/IPRATROPIUM 3 ML AMPUL INH ×2 (08:34→20:08)
[2022-04-28] MEDS: DABIGATRAN 75 MG CAPSULE 150 MG PO ×2 (09:02→21:19)
[2022-04-28] MEDS: BISACODYL 10 MG SUPP PR (09:03)
[2022-04-28] MEDS: LIDOCAINE PATCH 1 EACH ADH..PATCH TOP (09:03)
[2022-04-28] MEDS: AMIODARONE 200 MG TABLET PO (09:03)
[2022-04-28] MEDS: DULOXETINE 30 MG CAPSULE 60 MG PO (09:03)
[2022-04-28] MEDS: CLOPIDOGREL 75 MG TABLET PO (09:03)
[2022-04-28] MEDS: OXYCODONE IR 10 MG TABLET PO ×3 (09:20→21:19)
[2022-04-28] MEDS: PANTOPRAZOLE DR 40 MG TABLET PO (12:34)
[2022-04-28] MEDS: PROMETHAZINE 25 MG TABLET PO (13:57)
[2022-04-28 14:03] VITALS: BP 129/77; PULSE 87; RESP 18; TEMP 36.3; O2SAT 95
--- NOTE | 2022-04-28 17:09 | DI.CT.S_ITS ---
PROCEDURE: CT ABDOMEN PELVIS WO CON INDICATIONS: severe epigastric pain, MRCP normal for pancreatitis TECHNIQUE: After the administration of oral contrast, 5 mm thick sections acquired from the diaphragms to the symphysis. 5 mm coronal and sagittal reformats were performed. For radiation dose reduction, the following was used: automated exposure control, adjustment of mA and/or kV according to patient size. Lack of intravenous contrast limits assessment of abdominal hollow and solid viscera, particularly for infection, and neoplasm COMPARISON: [facility], CT, CT CHEST ABD PEL W CON, 04/15/2022, 17:14. FINDINGS: Lower thorax: Small bibasilar pleural effusions platelike atelectasis present. Liver: Normal in size and attenuation. No contour deformity present. Biliary system: Cholecystectomy. No intra or extrahepatic bile duct dilation. Pancreas: Unremarkable without mass or inflammation evident. Spleen: Normal in size and density. Adrenals: Normal morphology and density. Reproductive system: Unremarkable as visualized. Urinary system: Normal renal size and attenuation. No renal calculi, hydronephrosis, or solid mass present. Urinary bladder unremarkable. Gastrointestinal system: The bowel is unremarkable without evidence of bowel obstruction or inflammation. The stomach appears unremarkable. Multiple diverticula arise from the sigmoid colon without evidence of diverticulitis. Appendix: Normal appendix identified. No evidence of appendicitis. Peritoneal spaces: There is a small amount of free fluid in the pelvis which is new from the prior exam Vasculature: Aortic atherosclerotic vascular calcification noted without evidence of aneurysm. Abdominal wall: Abdominal wall intact without evidence of ventral or inguinal hernias. Musculoskeletal: Normal bone mineralization. Degenerative disc disease and arthropathy noted in lower lumbar spine. No acute fractures. IMPRESSION: 1. Small amount of nonspecific free fluid in the pelvis is nevertheless new from the prior exam. Sigmoid diverticulosis without evidence of diverticulitis 2. Small bibasilar pleural effusions and platelike atelectasis in the right lung base 3. Additional chronic findings as above Approved by: Zeb Garcia M.D. on 04/28/2022 at 17:31
[2022-04-28] MEDS: DEXTROSE 5%-0.45% NS 1,000 ML 100 ML IV (17:37)
[2022-04-28] MEDS: PANTOPRAZOLE 40 MG VIAL IV ×2 (17:37→21:18)
[2022-04-28 20:00] VITALS: BP 136/76; PULSE 76; RESP 20; TEMP 36.4; O2SAT 98
[2022-04-28] MEDS: PRAVASTATIN 20 MG TABLET 80 MG PO (21:18)
[2022-04-28] MEDS: SENNOSIDES 8.6 MG TABLET 17.2 MG PO (21:19)
[2022-04-28] MEDS: TRAZODONE 50 MG TABLET PO (21:35)
[2022-04-28] MEDS: MELATONIN 3 MG TABLET 6 MG PO (23:40)
[2022-04-29] MEDS: DEXTROSE 5%-0.45% NS 1,000 ML 100 ML IV ×3 (02:22→22:34)
[2022-04-29] MEDS: METHYLPHENIDATE 5 MG TABLET 20 MG PO ×2 (06:17→10:46)
[2022-04-29 07:47] LABS: Lipase 45 U/L (23-300)
[2022-04-29 08:35] VITALS: BP 140/79; RESP 16; TEMP 36.1; O2SAT 98
[2022-04-29] MEDS: ALBUTEROL/IPRATROPIUM 3 ML AMPUL INH ×2 (08:57→20:25)
[2022-04-29] MEDS: DABIGATRAN 75 MG CAPSULE 150 MG PO ×2 (09:03→20:17)
[2022-04-29] MEDS: BISACODYL 10 MG SUPP PR (09:03)
[2022-04-29] MEDS: LIPASE/PROTEASE/AMYLASE 5/17/24 CAP 4 CAP PO (09:04)
[2022-04-29] MEDS: LIDOCAINE PATCH 1 EACH ADH..PATCH TOP (09:04)
[2022-04-29] MEDS: DULOXETINE 30 MG CAPSULE 60 MG PO (09:04)
[2022-04-29] MEDS: AMIODARONE 200 MG TABLET PO (09:04)
[2022-04-29] MEDS: CLOPIDOGREL 75 MG TABLET PO (09:04)
[2022-04-29 09:05] VITALS: PULSE 69; RESP 16; O2SAT 97
[2022-04-29] MEDS: PANTOPRAZOLE 40 MG VIAL IV ×2 (09:10→20:14)
[2022-04-29] MEDS: ONDANSETRON 4 MG/2 ML INJ IV ×3 (09:10→22:45)
[2022-04-29] MEDS: OXYCODONE IR 10 MG TABLET PO ×2 (09:11→22:44)
[2022-04-29 10:22] LABS: HIV 1 & 2 Ab/Ag 4th Gen Combo NEGATIVE (NEGATIVE)
[2022-04-29 10:37] LABS: Hep C Virus Ab w/Reflex Quant NEGATIVE s/c (NEGATIVE)
[2022-04-29] MEDS: HYDROMORPHONE 1 MG INJ IV ×3 (10:46→20:16)
[2022-04-29] MEDS: LORazepam 2 MG/ML INJ 0.5 MG IV ×2 (12:19→20:17)
[2022-04-29 12:49] VITALS: BP 127/66; PULSE 83; RESP 18; TEMP 36.7; O2SAT 98
--- NOTE | 2022-04-29 13:28 | CM.DPC ---
DCP Cont: Discussed patient during team rounds. Patient is improving, could possibly discharge if tolerating diet. Patient is established with [facility], would need to update them and send resumption orders upon discharge. P: DCP to continue to follow. Plan is home when deemed medically stable, possibly today, or tomorrow, and will update [facility]. Catalina Pollack RN/Line Out Man
[2022-04-29] MEDS: PROMETHAZINE 25 MG TABLET PO (13:45)
--- NOTE | 2022-04-29 15:21 | PM.PN.1 ---
Subjective Subjective Date Patient Seen: 04/29/22 Interval history: Had a good night overnight without pain medications, but had recurrence of severe abdominal pain, nausea with broth this morning. Exam Vital Signs (past 8 hours): - 04/29/22 08:35 04/29/22 09:05 04/29/22 12:49 Temperature 97.0 F L 98.1 F Pulse Rate 69 83 Respiratory Rate 16 16 18 Blood Pressure 140/79 127/66 Pulse Oximetry 98 97 98 Oxygen Delivery Method Room Air Oxygen Flow Rate 0 04/29/22 07:30 Temperature Pulse Rate Respiratory Rate Blood Pressure Pulse Oximetry Oxygen Delivery Method Room Air Oxygen Flow Rate Oxygen Delivery Method Room Air Oxygen Flow Rate 0 Narrative Exam Narrative: GEN: no distress, appears to be in pain HEENT: moist mucous membranes, PERRL NECK: trachea midline, no JVD CV: regular rate and rhythm, no murmurs PULM: clear bilaterally ABD: improving epigastric pain now without guarding EXT: warm and well perfused with no edema NEURO: awake, alert, oriented, no focal deficits Objective Labs 04/28/22 05:15 04/28/22 05:15 Labs: Laboratory Results - last 24 hr 04/29/22 04/29/22 04/29/22 07:04 07:04 07:04 Lipase 45 D Hepatitis C Antibody Negative HIV 1&2 Ab/P24 Ag 4thGn Negative PFSH Medical History Acute dehydration Atrial flutter with rapid ventricular response Campylobacter enteritis Claudication in peripheral vascular disease Enteritis, enteropathogenic E. coli Exocrine pancreatic insufficiency Gastroenteritis GERD (gastroesophageal reflux disease) History of cardioversion (03/07/21) HTN (hypertension) Hyperlipidemia Insulin dependent diabetes mellitus with complications Narcolepsy Nausea vomiting and diarrhea Pancreatic endocrine tumor Pancreatitis Paroxysmal atrial fibrillation Peripheral vascular disease Psoriasis Sepsis Surgical History H/O exploratory laparotomy History of epididymectomy History of femoropopliteal bypass Hx of biopsy Family History Father Colon cancer Mother Narcolepsy Grandmother Narcolepsy Social History household members: spouse Smoking Status: Former smoker alcohol intake: former Assessment & Plan Assessment & Plan narrative: # acute on chronic pancreatitis, with multiple past episodes -Lipase 2407 on admission, patient thinks this episode was precipitated by new soy sausages he added to his diet. Has multiple recurrent episodes but more spaced out since his lap sharad in May 2021 -continue IVF at 150cc/hr -continue clears. -pain control with IV dilaudid and oxycodone PRN -ativan, compazine and zofran PRN for NV -lipase now 145 -continue home creon enzymes -abd pain still not improving, MRCP and subsequent abdominal CT unremarkable. -patient spoke with his GI doc over the phone on 04/27, they are requesting labs to be faxed. They will also likely complete outpatient ERCP with EUS per patient. -stop amiodarone # acute hypotension, resolved -overnight on 04/25-04/26 had BP of 78/48 and given 2L NS boluses, now improved -do not suspect sepsis as no leukocytosis and afebrile -holding home BP meds, can continue amio # Paroxysmal A-fib -currently in SR -continue amiodarone, metoprolol and pradaxa -do not want to stop amio due to concern for converting to a-flutter, but amio can exacerbate pancreatitis and seems to correlate with recent symptoms. # DM2 -low dose SSI -last A1c 8% # Narcolepsy -continue home ritalin # PAD s/p angioplasty and stent -continue home plavix # HTN -continue home lisinopril # HLD -will hold home statin to see if exacerbating pancreatitis. # insomnia -continue home trazodone # depression -continue home cymbalta Code status is DNR. Patient maintains despite his age he would not want to be resuscitated. COVID negative. DVT prophylaxis with Pradaxa. Proxy is partner Yisel. Dispo: Home in 2 days pending improvement in abd pain and po intake. Time Spent With Patient Critical Care time: I spent a total of [] minutes of critical care time on this patient's care today; this time is exclusive of procedural time. Quality VTE Deep Vein Thrombosis/Pulmonary Embolism Present on Admission: No
[2022-04-29 19:40] VITALS: BP 124/72; PULSE 71; RESP 18; TEMP 36.8; O2SAT 98
[2022-04-29] MEDS: SENNOSIDES 8.6 MG TABLET 17.2 MG PO (20:14)
[2022-04-29] MEDS: MELATONIN 3 MG TABLET 6 MG PO (22:44)
[2022-04-29] MEDS: TRAZODONE 50 MG TABLET PO (22:44)
[2022-04-30] MEDS: HYDROMORPHONE 1 MG INJ IV ×3 (02:27→15:17)
[2022-04-30] MEDS: LORazepam 2 MG/ML INJ 0.5 MG IV (02:27)
[2022-04-30 03:06] VITALS: BP 139/79; PULSE 69; RESP 18; TEMP 36.7; O2SAT 99
[2022-04-30] MEDS: PROMETHAZINE 25 MG TABLET PO (04:06)
[2022-04-30] MEDS: OXYCODONE IR 10 MG TABLET PO (04:07)
[2022-04-30] MEDS: ONDANSETRON 4 MG/2 ML INJ IV ×2 (05:38→15:17)
[2022-04-30] MEDS: METHYLPHENIDATE 5 MG TABLET 20 MG PO ×3 (05:39→16:26)
[2022-04-30 06:02] LABS: Add Manual Diff / Slide Review NO; Basophils Absolute Auto 0 /uL (0-100); Basophils Percent Auto 0.4 % (0-2); Eosinophils Absolute Auto 200 /uL (0-450); Eosinophils Percent Auto 4.6 % (2-4); Hematocrit 32.2 % (41-53); Lymphocytes Absolute Auto 600 /uL (1100-4500); Lymphocytes Percent Auto 14.8 % (25-40); Mean Corpuscular HGB Conc 34.2 % (30-36); Mean Corpuscular Hemoglobin 29.9 PG (26-34); Mean Corpuscular Volume 87.4 fL (80-100); Monocytes Absolute Auto 300 /uL (0-900); Monocytes Percent Auto 7.7 % (3-14); Neutrophils Absolute Auto 3100 /uL (1500-7000); Neutrophils Percent Auto 72.5 % (50-75); Platelet Count 215 X10^3/uL (150-400); Red Blood Cell Count 3.68 X10^6/uL (4.5-5.9); Red Cell Distribution Width 14.8 % (11.6-14.8); White Blood Cell Count 4.3 X10^3/uL (4.5-11.0)
[2022-04-30 06:07] LABS: Alanine Aminotransferase 17 IU/L (<50); Albumin 3.3 g/dL (3.5-5.0); Albumin Globulin Ratio 1.4 (1.0-2.8); Alkaline Phosphatase 59 U/L (38-126); Aspartate Aminotransferase 21 IU/L (17-59); Bilirubin Total 0.6 mg/dL (0.2-1.3); Calcium 7.7 mg/dL (8.4-10.2); Carbon Dioxide 27 mmol/L (22-32); Chloride 107 mmol/L (98-107); Estimated Glomerular Filt Rate > 60 mL/min (>60); Globulin 2.4 g/dL (1.7-4.1); Glucose 122 mg/dL (80-110); HEMOLYSIS < 15 (0-50); Magnesium 1.4 mg/dL (1.6-2.3); Sodium 140 mmol/L (137-145); Total Protein 5.7 g/dL (6.3-8.2)
[2022-04-30 06:14] LABS: BUN Creatinine Ratio 3.1 (6-22); Blood Urea Nitrogen < 2 mg/dL (9-20)
[2022-04-30 08:12] VITALS: BP 128/59; PULSE 74; RESP 18; TEMP 36.6; O2SAT 96
[2022-04-30] MEDS: DABIGATRAN 75 MG CAPSULE 150 MG PO ×2 (08:39→21:52)
[2022-04-30] MEDS: DULOXETINE 30 MG CAPSULE 60 MG PO (08:39)
[2022-04-30] MEDS: CLOPIDOGREL 75 MG TABLET PO (08:39)
[2022-04-30] MEDS: LIDOCAINE PATCH 1 EACH ADH..PATCH TOP (08:40)
[2022-04-30] MEDS: PANTOPRAZOLE 40 MG VIAL IV ×2 (08:40→22:01)
[2022-04-30] MEDS: DEXTROSE 5%-0.45% NS 1,000 ML 100 ML IV ×2 (09:00→22:01)
[2022-04-30] MEDS: MAGNESIUM SULFATE 2 GM/50 ML PIGGYBACK IV (09:00)
[2022-04-30] MEDS: POTASSIUM CHLORIDE 20 MEQ TAB 40 MEQ PO ×2 (09:00→15:39)
[2022-04-30] MEDS: ALBUTEROL/IPRATROPIUM 3 ML AMPUL INH ×2 (09:11→19:38)
[2022-04-30] MEDS: BISACODYL 10 MG SUPP PR (09:19)
[2022-04-30 12:00] VITALS: BP 126/71; PULSE 83; RESP 18; TEMP 36.2; O2SAT 96
[2022-04-30] MEDS: LIPASE/PROTEASE/AMYLASE 5/17/24 CAP 4 CAP PO (12:12)
--- NOTE | 2022-04-30 13:42 | PM.PN.1 ---
Subjective Subjective Date Patient Seen: 04/30/22 Interval history: Had a good night overnight without pain medications, but had recurrence of severe abdominal pain, nausea with broth this morning again though it is slightly better today again. Exam Vital Signs (past 8 hours): - 04/30/22 12:00 Temperature 97.1 F L Pulse Rate 83 Respiratory Rate 18 Blood Pressure 126/71 Pulse Oximetry 96 Oxygen Flow Rate 0 Oxygen Delivery Method Room Air Oxygen Flow Rate 0 Narrative Exam Narrative: GEN: no distress, appears to be in pain HEENT: moist mucous membranes, PERRL NECK: trachea midline, no JVD CV: regular rate and rhythm, no murmurs PULM: clear bilaterally ABD: mild epigastric pain improved from yesterday. EXT: warm and well perfused with no edema NEURO: awake, alert, oriented, no focal deficits Objective Labs 04/30/22 05:25 04/30/22 05:25 Labs: Laboratory Results - last 24 hr 04/29/22 04/30/22 04/30/22 07:04 05:25 05:25 WBC 4.3 L RBC 3.68 L Hgb 11.0 L Hct 32.2 L MCV 87.4 MCH 29.9 MCHC 34.2 RDW 14.8 Plt Count 215 Neut % (Auto) 72.5 Lymph % (Auto) 14.8 L [place] % (Auto) 7.7 Eos % (Auto) 4.6 H Baso % (Auto) 0.4 Neut # (Auto) 3100 Lymph # (Auto) 600 L [place] # (Auto) 300 Eos # (Auto) 200 Baso # (Auto) 0 Sodium 140 Potassium 3.0 L Chloride 107 Carbon Dioxide 27 BUN < 2 L Creatinine 0.65 L Estimated GFR > 60 BUN/Creatinine Ratio 3.1 L Glucose 122 H Calcium 7.7 L Magnesium 1.4 L Total Bilirubin 0.6 AST 21 ALT 17 Alkaline Phosphatase 59 Total Protein 5.7 L Albumin 3.3 L Globulin 2.4 Albumin/Globulin Ratio 1.4 Lipase 45 D PFSH Medical History Acute dehydration Atrial flutter with rapid ventricular response Campylobacter enteritis Claudication in peripheral vascular disease Enteritis, enteropathogenic E. coli Exocrine pancreatic insufficiency Gastroenteritis GERD (gastroesophageal reflux disease) History of cardioversion (03/07/21) HTN (hypertension) Hyperlipidemia Insulin dependent diabetes mellitus with complications Narcolepsy Nausea vomiting and diarrhea Pancreatic endocrine tumor Pancreatitis Paroxysmal atrial fibrillation Peripheral vascular disease Psoriasis Sepsis Surgical History H/O exploratory laparotomy History of epididymectomy History of femoropopliteal bypass Hx of biopsy Family History Father Colon cancer Mother Narcolepsy Grandmother Narcolepsy Social History household members: spouse Smoking Status: Former smoker alcohol intake: former Assessment & Plan Assessment & Plan narrative: # acute on chronic pancreatitis, with multiple past episodes -Lipase 2407 on admission, patient thinks this episode was precipitated by new soy sausages he added to his diet. Has multiple recurrent episodes but more spaced out since his lap sharad in May 2021 -continue IVF at 150cc/hr -continue clears. -pain control with IV dilaudid and oxycodone PRN -ativan, compazine and zofran PRN for NV -lipase now normal -abd pain still not improving, MRCP and subsequent abdominal CT unremarkable. Stopped amiodarone and statin to see if in part related to medications. -patient spoke with his GI doc over the phone on 04/27, they are requesting labs to be faxed. They will also likely complete outpatient ERCP with EUS per patient. -continue home creon enzymes # acute hypotension, resolved -overnight on 04/25-04/26 had BP of 78/48 and given 2L NS boluses, now improved -do not suspect sepsis as no leukocytosis and afebrile -held home BP meds, now off amio as noted above. Will resume home metoprolol today given improvement in hypotension at 12.5 mg BID (home 100 mg) and increase as BP allows. # Paroxysmal A-fib -currently in SR -continue metoprolol and pradaxa # DM2 -low dose SSI -last A1c 8% # Narcolepsy -continue home ritalin # PAD s/p angioplasty and stent -continue home plavix # HTN -continue home lisinopril # HLD -will hold home statin to see if exacerbating pancreatitis. # insomnia -continue home trazodone # depression -continue home cymbalta Code status is DNR. Patient maintains despite his age he would not want to be resuscitated. COVID negative. DVT prophylaxis with Pradaxa. Proxy is partner Yisel. Dispo: Home in 2 days pending improvement in abd pain and po intake. Time Spent With Patient Critical Care time: I spent a total of [] minutes of critical care time on this patient's care today; this time is exclusive of procedural time. Quality VTE Deep Vein Thrombosis/Pulmonary Embolism Present on Admission: No
[2022-04-30 18:00] VITALS: BP 127/68; PULSE 74; RESP 18; TEMP 36.3; O2SAT 99
[2022-04-30 20:00] VITALS: BP 128/59; PULSE 74; RESP 18; TEMP 36.6; O2SAT 96
[2022-04-30] MEDS: SENNOSIDES 8.6 MG TABLET 17.2 MG PO (21:54)
[2022-04-30 21:55] VITALS: BP 129/74; PULSE 77
[2022-04-30] MEDS: METOPROLOL ER 25 MG TABLET 12.5 MG PO (21:55)
[2022-04-30] MEDS: HYDROMORPHONE 0.5 MG INJ IV (22:00)
[2022-05-01 02:00] VITALS: BP 119/69; PULSE 70; RESP 18; TEMP 36.3; O2SAT 96
[2022-05-01] MEDS: HYDROMORPHONE 0.5 MG INJ IV (02:23)
[2022-05-01] MEDS: ONDANSETRON 4 MG/2 ML INJ IV ×3 (02:26→17:26)
[2022-05-01] MEDS: MELATONIN 3 MG TABLET 6 MG PO (03:54)
[2022-05-01] MEDS: TRAZODONE 50 MG TABLET PO (03:54)
[2022-05-01] MEDS: METHYLPHENIDATE 5 MG TABLET 20 MG PO ×2 (05:33→13:54)
[2022-05-01 06:06] LABS: Add Manual Diff / Slide Review NO; Basophils Absolute Auto 0 /uL (0-100); Basophils Percent Auto 0.6 % (0-2); Eosinophils Absolute Auto 300 /uL (0-450); Eosinophils Percent Auto 7.8 % (2-4); Hematocrit 33.1 % (41-53); Hemoglobin 11.2 g/dL (13.5-17.5); Lymphocytes Absolute Auto 700 /uL (1100-4500); Lymphocytes Percent Auto 18.2 % (25-40); Mean Corpuscular HGB Conc 33.9 % (30-36); Mean Corpuscular Hemoglobin 29.5 PG (26-34); Mean Corpuscular Volume 87.1 fL (80-100); Monocytes Absolute Auto 300 /uL (0-900); Monocytes Percent Auto 8.1 % (3-14); Neutrophils Absolute Auto 2600 /uL (1500-7000); Neutrophils Percent Auto 65.3 % (50-75); Platelet Count 226 X10^3/uL (150-400); Red Cell Distribution Width 14.8 % (11.6-14.8)
[2022-05-01 06:17] LABS: Alanine Aminotransferase 17 IU/L (<50); Albumin 3.3 g/dL (3.5-5.0); Albumin Globulin Ratio 1.4 (1.0-2.8); Alkaline Phosphatase 60 U/L (38-126); Aspartate Aminotransferase 22 IU/L (17-59); Bilirubin Total 0.5 mg/dL (0.2-1.3); Carbon Dioxide 24 mmol/L (22-32); Chloride 108 mmol/L (98-107); Estimated Glomerular Filt Rate > 60 mL/min (>60); Globulin 2.4 g/dL (1.7-4.1); Glucose 110 mg/dL (80-110); HEMOLYSIS < 15 (0-50); Magnesium 1.7 mg/dL (1.6-2.3); Potassium 3.4 mmol/L (3.4-5.1); Sodium 141 mmol/L (137-145); Total Protein 5.7 g/dL (6.3-8.2)
[2022-05-01 06:19] LABS: BUN Creatinine Ratio 3.2 (6-22); Blood Urea Nitrogen < 2 mg/dL (9-20)
[2022-05-01] MEDS: HYDROMORPHONE 1 MG INJ IV ×3 (08:23→15:41)
[2022-05-01] MEDS: DEXTROSE 5%-0.45% NS 1,000 ML 100 ML IV ×2 (08:35→21:15)
[2022-05-01 08:44] VITALS: BP 117/66; PULSE 61; RESP 18; TEMP 36.3; O2SAT 98
[2022-05-01] MEDS: ALBUTEROL/IPRATROPIUM 3 ML AMPUL INH ×2 (09:05→20:30)
[2022-05-01] MEDS: BISACODYL 10 MG SUPP PR (09:24)
[2022-05-01] MEDS: CLOPIDOGREL 75 MG TABLET PO (09:25)
[2022-05-01] MEDS: DULOXETINE 30 MG CAPSULE 60 MG PO (09:26)
[2022-05-01] MEDS: OXYCODONE IR 10 MG TABLET PO ×3 (09:27→22:41)
[2022-05-01 09:31] VITALS: BP 117/66; PULSE 61
[2022-05-01] MEDS: PANTOPRAZOLE 40 MG VIAL IV (09:31)
[2022-05-01] MEDS: METOPROLOL ER 25 MG TABLET 12.5 MG PO ×2 (09:31→21:58)
[2022-05-01] MEDS: LIDOCAINE PATCH 1 EACH ADH..PATCH TOP (09:32)
[2022-05-01] MEDS: PROMETHAZINE 25 MG TABLET PO ×2 (11:49→19:03)
--- NOTE | 2022-05-01 12:36 | P.PN_ITS ---
Subjective Subjective Date Patient Seen: 05/01/22 Interval history: Abdominal pain is improving today. He is very cautious and does not want to attempt diet more than clears today. Procurement Analyst will see the patient today. Exam Vital Signs (past 8 hours): - 05/01/22 08:44 05/01/22 09:31 Temperature 97.3 F L Pulse Rate 61 61 Respiratory Rate 18 Blood Pressure 117/66 117/66 Pulse Oximetry 98 Oxygen Flow Rate 0 Oxygen Delivery Method Room Air Oxygen Flow Rate 0 Narrative Exam Narrative: GEN: no distress, appears to be in pain HEENT: moist mucous membranes, PERRL NECK: trachea midline, no JVD CV: regular rate and rhythm, no murmurs PULM: clear bilaterally ABD: mild epigastric pain improved from yesterday. EXT: warm and well perfused with no edema NEURO: awake, alert, oriented, no focal deficits Objective Labs 05/01/22 05:30 05/01/22 05:30 Labs: Laboratory Results - last 24 hr 05/01/22 05/01/22 05:30 05:30 WBC 4.0 L RBC 3.80 L Hgb 11.2 L Hct 33.1 L MCV 87.1 MCH 29.5 MCHC 33.9 RDW 14.8 Plt Count 226 Neut % (Auto) 65.3 Lymph % (Auto) 18.2 L [place] % (Auto) 8.1 Eos % (Auto) 7.8 H Baso % (Auto) 0.6 Neut # (Auto) 2600 Lymph # (Auto) 700 L [place] # (Auto) 300 Eos # (Auto) 300 Baso # (Auto) 0 Sodium 141 Potassium 3.4 Chloride 108 H Carbon Dioxide 24 BUN < 2 L Creatinine 0.62 L Estimated GFR > 60 BUN/Creatinine Ratio 3.2 L Glucose 110 Calcium 8.0 L Magnesium 1.7 Total Bilirubin 0.5 AST 22 ALT 17 Alkaline Phosphatase 60 Total Protein 5.7 L Albumin 3.3 L Globulin 2.4 Albumin/Globulin Ratio 1.4 PFSH Medical History Acute dehydration Atrial flutter with rapid ventricular response Campylobacter enteritis Claudication in peripheral vascular disease Enteritis, enteropathogenic E. coli Exocrine pancreatic insufficiency Gastroenteritis GERD (gastroesophageal reflux disease) History of cardioversion (03/07/21) HTN (hypertension) Hyperlipidemia Insulin dependent diabetes mellitus with complications Narcolepsy Nausea vomiting and diarrhea Pancreatic endocrine tumor Pancreatitis Paroxysmal atrial fibrillation Peripheral vascular disease Psoriasis Sepsis Surgical History H/O exploratory laparotomy History of epididymectomy History of femoropopliteal bypass Hx of biopsy Family History Father Colon cancer Mother Narcolepsy Grandmother Narcolepsy Social History household members: spouse Smoking Status: Former smoker alcohol intake: former Assessment & Plan Assessment & Plan narrative: # acute on chronic pancreatitis, with multiple past episodes -Lipase 2407 on admission, patient thinks this episode was precipitated by new soy sausages he added to his diet. Has multiple recurrent episodes but more spaced out since his lap sharad in May 2021 -can stop IV fluids today. -continue clears, advance hopefully tomorrow. -pain control with IV dilaudid and oxycodone PRN -ativan, compazine and zofran PRN for NV -lipase now normal -abd pain still not improving, MRCP and subsequent abdominal CT unremarkable. Stopped amiodarone and statin to see if in part related to medications and has been slowly improving since. -patient spoke with his GI doc over the phone on 04/27, they are requesting labs to be faxed. They will also likely complete outpatient ERCP with EUS per patient. -continue home creon enzymes # acute hypotension, resolved -overnight on 04/25-04/26 had BP of 78/48 and given 2L NS boluses, now improved -do not suspect sepsis as no leukocytosis and afebrile -held home BP meds, now off amio as noted above. Will resume home metoprolol today given improvement in hypotension at 12.5 mg BID (home 100 mg) and increase as BP allows. # Paroxysmal A-fib -currently in SR -continue metoprolol and pradaxa # DM2 -low dose SSI -last A1c 8% # Narcolepsy -continue home ritalin # PAD s/p angioplasty and stent -continue home plavix # HTN -continue home lisinopril # HLD -will hold home statin to see if exacerbating pancreatitis. # insomnia -continue home trazodone # depression -continue home cymbalta Code status is DNR. Patient maintains despite his age he would not want to be resuscitated. COVID negative. DVT prophylaxis with Pradaxa. Proxy is partner Yisel. Dispo: Home possibly as soon as tomorrow, days pending improvement in abd pain and po intake. Time Spent With Patient Critical Care time: I spent a total of [] minutes of critical care time on this patient's care today; this time is exclusive of procedural time. Quality VTE Deep Vein Thrombosis/Pulmonary Embolism Present on Admission: No
--- NOTE | 2022-05-01 12:37 | CM.DPC ---
DCP Cont: Discussed patient during team rounds. Hospitalist mentioned that he is showing some improvement today, is on clear liquid diet, may advance diet. There is a possibility that patient could go home tomorrow. Have continued to update [facility], they called asking for update. P: Plan is for patient to return home with the resumption of [facility] when deemed medically stable. Catalina Pollack RN/Sales Agent [employer]
--- NOTE | 2022-05-01 16:35 | DIET.CONS2 ---
Dietary Inpatient Consultation Note Admission Date: 04/25/2022 13:56 RD met with pt at bedside. Pt did not tolerate vegetable broth Sunday. Pt states his hunger shuts down when he has severe bouts of pancreatitis. [facility] with good results at helping to stimulate his appetite. Pt has hx significant fear of eating after hospitalizations as he states he can never know when he will experience pain. Pt compliant with all enzyme therapy. Pt concerned he has tolerated soy up until this hospitalization, worried he may no longer tolerate. Pt would like to try dronabinol to spur intake. Diet: 04/28/22 Breakfast Clear Liquid Diet Diet Modifications: Nutrition Percent Meal Consumed 0% 04/30/22 18:00 Percent Meal Consumed 25% 04/30/22 13:17 Percent Meal Consumed 25% 04/30/22 09:07 Electronically Signed by: Jennifer Hercules 05/01/22 16:35 Clinical Dietitian [address] [address]
[2022-05-01 17:00] VITALS: BP 131/75; PULSE 68; RESP 18; TEMP 36.4; O2SAT 98
[2022-05-01] MEDS: CREON 1 EACH PO ×2 (17:29→17:43)
[2022-05-01] MEDS: PANTOPRAZOLE DR 40 MG TABLET PO (17:41)
[2022-05-01 20:00] VITALS: BP 121/75; PULSE 68; RESP 18; TEMP 36.5; O2SAT 95
[2022-05-01 21:58] VITALS: BP 129/77; PULSE 77
[2022-05-01] MEDS: DABIGATRAN 150 MG 150 EACH PO (21:58)
[2022-05-01] MEDS: SENNOSIDES 8.6 MG TABLET 17.2 MG PO (21:58)
[2022-05-02] VITALS (8 sets, daily range): BP systolic 119–140; BP diastolic 65–72; PULSE 64–79; RESP 18; TEMP 35.7–36.5; O2SAT 95–100
--- NOTE | 2022-05-02 01:30 | PC.NURSE ---
Addendum entered by Tian Peguero R.N. 05/02/22 03:29: 0310: BS 84, pt request two more honey packets with tea. Original Note: 2055: BS 64, per Hospitalist Dr. Roy, D5 1/2 NS at 100mls/hr restarted. 2124: BS 64. Per Hospitalist Lyudmila Munguia, DIGITAL PROJECT MANAGER administer 1/2 ampule D50. IV site burning during NS flush with patient wincing, unable to administer ampule. Pt worried about increase pain and n/v if given apple juice. No glucose gels available in hospital, pt ate 2 honey packets. D5 1/2 NS stopped for now as IV site compromised. Hospitalist aware. Pt c/o dizziness and lightheaded. Per , pt talks more when hypoglycemic and currently doing so. 2238: BS 81. pt requested 2 more honey packets w/ tea. 0014: BS 106. ED RN placed IV via ultrasound, D5 1/2 NS restarted at 100ml/hr. Hospitalist Lyudmila Munguia updated on all events.
[2022-05-02] MEDS: ONDANSETRON 4 MG/2 ML INJ IV (04:48)
[2022-05-02] MEDS: OXYCODONE IR 5 MG TABLET PO (04:49)
[2022-05-02 04:51] LABS: Add Manual Diff / Slide Review NO; Basophils Absolute Auto 0 /uL (0-100); Basophils Percent Auto 0.6 % (0-2); Eosinophils Absolute Auto 300 /uL (0-450); Eosinophils Percent Auto 7.2 % (2-4); Hematocrit 35.6 % (41-53); Hemoglobin 11.7 g/dL (13.5-17.5); Lymphocytes Absolute Auto 900 /uL (1100-4500); Lymphocytes Percent Auto 24.5 % (25-40); Mean Corpuscular HGB Conc 32.9 % (30-36); Mean Corpuscular Hemoglobin 29.1 PG (26-34); Mean Corpuscular Volume 88.6 fL (80-100); Monocytes Absolute Auto 300 /uL (0-900); Monocytes Percent Auto 8.1 % (3-14); Neutrophils Absolute Auto 2200 /uL (1500-7000); Neutrophils Percent Auto 59.6 % (50-75); Platelet Count 220 X10^3/uL (150-400); Red Blood Cell Count 4.02 X10^6/uL (4.5-5.9); Red Cell Distribution Width 14.9 % (11.6-14.8); White Blood Cell Count 3.6 X10^3/uL (4.5-11.0)
[2022-05-02 05:14] LABS: Alanine Aminotransferase 18 IU/L (<50); Albumin 3.4 g/dL (3.5-5.0); Albumin Globulin Ratio 1.4 (1.0-2.8); Alkaline Phosphatase 66 U/L (38-126); Aspartate Aminotransferase 24 IU/L (17-59); Bilirubin Total 0.5 mg/dL (0.2-1.3); Calcium 8.2 mg/dL (8.4-10.2); Carbon Dioxide 27 mmol/L (22-32); Chloride 108 mmol/L (98-107); Estimated Glomerular Filt Rate > 60 mL/min (>60); Globulin 2.5 g/dL (1.7-4.1); Glucose 83 mg/dL (80-110); HEMOLYSIS < 15 (0-50); Magnesium 1.6 mg/dL (1.6-2.3); Potassium 3.4 mmol/L (3.4-5.1); Sodium 143 mmol/L (137-145); Total Protein 5.9 g/dL (6.3-8.2)
[2022-05-02 05:42] LABS: BUN Creatinine Ratio 2.9 (6-22); Blood Urea Nitrogen < 2 mg/dL (9-20)
[2022-05-02] MEDS: METHYLPHENIDATE 5 MG TABLET 20 MG PO ×2 (06:40→11:41)
[2022-05-02] MEDS: CREON 1 EACH PO ×4 (08:10→17:02)
[2022-05-02] MEDS: CLOPIDOGREL 75 MG TABLET PO (08:31)
[2022-05-02] MEDS: METOPROLOL ER 25 MG TABLET 12.5 MG PO ×2 (08:31→20:41)
[2022-05-02] MEDS: DULOXETINE 30 MG CAPSULE 60 MG PO (08:32)
[2022-05-02] MEDS: LIDOCAINE PATCH 1 EACH ADH..PATCH TOP (08:33)
[2022-05-02] MEDS: ALBUTEROL/IPRATROPIUM 3 ML AMPUL INH ×2 (08:39→19:48)
[2022-05-02] MEDS: PROMETHAZINE 25 MG TABLET PO ×2 (08:43→21:35)
[2022-05-02] MEDS: PANTOPRAZOLE DR 40 MG TABLET PO ×2 (08:43→16:53)
[2022-05-02] MEDS: OXYCODONE IR 10 MG TABLET PO (08:43)
[2022-05-02] MEDS: DABIGATRAN 150 MG 150 EACH PO ×2 (09:47→21:27)
[2022-05-02] MEDS: HYDROMORPHONE 1 MG INJ IV (11:41)
--- NOTE | 2022-05-02 14:03 | PM.PN.1 ---
Subjective Subjective Date Patient Seen: 05/02/22 Interval history: Abdominal pain is improving today. He is very cautious and somewhat fearful of food. He was able to tolerate some oatmeal for lunch. He has been started on marinol as needed which has worked for him in the past, will try to avoid IV narcotics over the coming day. Exam Vital Signs (past 8 hours): - 05/02/22 08:02 05/02/22 08:31 05/02/22 08:57 Temperature 97.4 F L Pulse Rate 68 68 64 Respiratory Rate 18 Blood Pressure 122/65 122/65 Pulse Oximetry 100 97 Oxygen Delivery Method Room Air Oxygen Flow Rate 0 05/02/22 11:30 Temperature 97.6 F Pulse Rate 70 Respiratory Rate 18 Blood Pressure 127/72 Pulse Oximetry 95 Oxygen Delivery Method Oxygen Flow Rate 0 Oxygen Delivery Method Room Air Oxygen Flow Rate 0 Narrative Exam Narrative: GEN: no distress, appears to be in pain HEENT: moist mucous membranes, PERRL NECK: trachea midline, no JVD CV: regular rate and rhythm, no murmurs PULM: clear bilaterally ABD: epigastric to LUQ pain today, slightly worse than day before. EXT: warm and well perfused with no edema NEURO: awake, alert, oriented, no focal deficits Objective Labs 05/02/22 04:14 05/02/22 04:14 Labs: Laboratory Results - last 24 hr 05/02/22 05/02/22 04:14 04:14 WBC 3.6 L RBC 4.02 L Hgb 11.7 L Hct 35.6 L MCV 88.6 MCH 29.1 MCHC 32.9 RDW 14.9 H Plt Count 220 Neut % (Auto) 59.6 Lymph % (Auto) 24.5 L [place] % (Auto) 8.1 Eos % (Auto) 7.2 H Baso % (Auto) 0.6 Neut # (Auto) 2200 Lymph # (Auto) 900 L [place] # (Auto) 300 Eos # (Auto) 300 Baso # (Auto) 0 Sodium 143 Potassium 3.4 Chloride 108 H Carbon Dioxide 27 BUN < 2 L Creatinine 0.69 Estimated GFR > 60 BUN/Creatinine Ratio 2.9 L Glucose 83 Calcium 8.2 L Magnesium 1.6 Total Bilirubin 0.5 AST 24 ALT 18 Alkaline Phosphatase 66 Total Protein 5.9 L Albumin 3.4 L Globulin 2.5 Albumin/Globulin Ratio 1.4 PFSH Medical History Acute dehydration Atrial flutter with rapid ventricular response Campylobacter enteritis Claudication in peripheral vascular disease Enteritis, enteropathogenic E. coli Exocrine pancreatic insufficiency Gastroenteritis GERD (gastroesophageal reflux disease) History of cardioversion (03/07/21) HTN (hypertension) Hyperlipidemia Insulin dependent diabetes mellitus with complications Narcolepsy Nausea vomiting and diarrhea Pancreatic endocrine tumor Pancreatitis Paroxysmal atrial fibrillation Peripheral vascular disease Psoriasis Sepsis Surgical History H/O exploratory laparotomy History of epididymectomy History of femoropopliteal bypass Hx of biopsy Family History Father Colon cancer Mother Narcolepsy Grandmother Narcolepsy Social History household members: spouse Smoking Status: Former smoker alcohol intake: former Assessment & Plan Assessment & Plan narrative: # acute on chronic pancreatitis, with multiple past episodes -Lipase 2407 on admission, patient thinks this episode was precipitated by new soy sausages he added to his diet. Has multiple recurrent episodes but more spaced out since his lap sharad in May 2021 -Stopped IV fluids. He does develop intermittent hypoglycemia to the 60s, but is asymptomatic. -continue low fat diet as tolerated. -pain control with oral dilaudid prn, limit IV dilaudid only for severe pain. -ativan, compazine and zofran PRN for NV -lipase now normal -abd pain still not improving, MRCP and subsequent abdominal CT unremarkable. Stopped amiodarone and statin to see if in part related to medications and has been slowly improving since. -patient spoke with his GI doc over the phone on 04/27, they are requesting labs to be faxed. They will also likely complete outpatient ERCP with EUS per patient. -continue home creon enzymes # acute hypotension, resolved -overnight on 04/25-04/26 had BP of 78/48 and given 2L NS boluses, now improved -do not suspect sepsis as no leukocytosis and afebrile -held home BP meds, now off amio as noted above. Will resume home metoprolol today given improvement in hypotension at 12.5 mg BID (home 100 mg) and increase as BP allows. # Paroxysmal A-fib -currently in SR -continue metoprolol and pradaxa # DM2 -low dose SSI -last A1c 8% # Narcolepsy -continue home ritalin # PAD s/p angioplasty and stent -continue home plavix # HTN -continue home lisinopril # HLD -will hold home statin to see if exacerbating pancreatitis. # insomnia -continue home trazodone # depression -continue home cymbalta Code status is DNR. Patient maintains despite his age he would not want to be resuscitated. COVID negative. DVT prophylaxis with Pradaxa. Proxy is partner Yisel. Dispo: Home possibly as soon as tomorrow, days pending improvement in abd pain and po intake. Time Spent With Patient Critical Care time: I spent a total of [] minutes of critical care time on this patient's care today; this time is exclusive of procedural time. Quality VTE Deep Vein Thrombosis/Pulmonary Embolism Present on Admission: No
[2022-05-02] MEDS: ONDANSETRON 4 MG ODT SL (16:53)
[2022-05-02] MEDS: HYDROMORPHONE 4 MG TABLET PO (16:53)
[2022-05-02] MEDS: SODIUM CHLORIDE 0.9% FLUSH 10 ML IV (20:36)
[2022-05-02] MEDS: SENNOSIDES 8.6 MG TABLET 17.2 MG PO (20:36)
[2022-05-02] MEDS: BISACODYL 10 MG SUPP PR (20:37)
--- NOTE | 2022-05-02 23:34 | PC.NURSE ---
Patient is alert and oriented. Breath sounds CTA with RA sat of 97%. HRR w/BP of 140/69. Complains of chronic nausea but without emesis and was medicated with Promethazine earlier. BT hypoactive and requested Dulcolax suppository which is ordered daily but had not been given this morning; had small, loose results. Denied dysuria, frequency or urgency with urination. Is able to turn himself in bed. Had been getting up independently but reports he is feeling weak and wobbly so advised to call for SBA when out of bed and verbalizes agreement to do so. Bilateral calf SCD's applied. Stated pain was tolerable at 4/10 and described as achiness in left abdomen radiating to back. Fall risk score is moderate; bed alarm not activated at this time as patient is calling for assistance appropriately.
[2022-05-03 02:10] VITALS: BP 124/69; PULSE 71; RESP 18; TEMP 36; O2SAT 98
[2022-05-03] MEDS: METHYLPHENIDATE 5 MG TABLET 20 MG PO ×2 (06:11→11:20)
[2022-05-03 08:36] VITALS: BP 120/65; PULSE 69; RESP 16; TEMP 35.9; O2SAT 96
[2022-05-03 08:41] VITALS: BP 120/65
[2022-05-03] MEDS: CLOPIDOGREL 75 MG TABLET PO (08:41)
[2022-05-03] MEDS: METOPROLOL ER 25 MG TABLET 12.5 MG PO (08:41)
[2022-05-03] MEDS: DULOXETINE 30 MG CAPSULE 60 MG PO (08:43)
[2022-05-03] MEDS: DABIGATRAN 150 MG 150 EACH PO (08:43)
[2022-05-03] MEDS: LIDOCAINE PATCH 1 EACH ADH..PATCH TOP (08:43)
[2022-05-03] MEDS: CREON 1 EACH PO (08:43)
[2022-05-03] MEDS: SODIUM CHLORIDE 0.9% FLUSH 10 ML IV (08:46)
[2022-05-03] MEDS: PANTOPRAZOLE DR 40 MG TABLET PO (08:49)
--- NOTE | 2022-05-03 11:40 | PM.DS.1 ---
History of Present Illness History of Present Illness Chief complaint: chest pain sent by DR Herman: JannSerranoshar DawsonRandall?is a 66-year-old male with history of paroxysmal AFib on Pradaxa, chronic pancreatic insufficiency (typically controlled at home with BRAT diet, pancreatic enzymes, oxycodone, Zofran and Phenergan), hypertension, PAD with HX (2005) of RLE angioplasty with stent placement/removal & left angioplasty on plavix, insulin-dependent type 2 diabetes, narcolepsy with cataplexy on ritalin, hyperlipidemia, acalculous cholecystitis s/p cholecystectomy in May 2021 who presents with nausea, abdominal pain and found to have pancreatitis with lipase of 2400. Patient apparently ate some soy sausages which were not apart of his normal diet, then developed acute abd pain and NV. He thinks those were the cause. He has had mutliple pancreatic flares, most recently 2 weeks ago but this is worse than before and his pain is 8/10 and epigastric. He vomited bile 3x at home before coming in. Also having some bilateral upper chest pain which he thinks is pleurisy from the pancreatitis. Patient on amiodarone until he can get an ablation in May to then come off of it. He was unaware that amiodarone can precipitate pancreatitis. He will see GI in 2 weeks as outpatient. He currently denies CP, dyspnea, palpitations or diarrhea. Discharge Providers Provider Date of admission: 04/25/22 13:56 Discharge Date: 05/03/22 Primary care physician: Eric Huang MD Consults: 04/25/22 14:56 Consult to Dietitian, Adult Routine Comment: Reason For Exam: patient request Discharge provider: Brock Herman MD Summary Hospital Course Discharge Diagnosis: 1. Acute on chronic pancreatitis 2. Paroxysmal atrial fibrillation 3. Type 2 diabetes 4. Narcolepsy 5. Peripheral artery disease PROCEDURE:? CT ABDOMEN PELVIS WO CON ? INDICATIONS:? severe epigastric pain, MRCP normal for pancreatitis ? TECHNIQUE:? After the administration of oral contrast, 5 mm thick sections acquired from the diaphragms to the symphysis.? 5 mm coronal and sagittal reformats were performed.? For radiation dose reduction, the following was used:? automated exposure control, adjustment of mA and/or kV according to patient size.? ? Lack of intravenous contrast limits assessment of abdominal hollow and solid viscera, particularly for infection, and neoplasm ? COMPARISON:? [facility], CT, CT CHEST ABD PEL W CON, 04/15/2022, 17:14. ? FINDINGS: ? Lower thorax:? Small bibasilar pleural effusions platelike atelectasis present. ? Liver:? Normal in size and attenuation. No contour deformity present. ? Biliary system:? Cholecystectomy.? No intra or extrahepatic bile duct dilation. ? Pancreas:? Unremarkable without mass or inflammation evident. ? Spleen:? Normal in size and density. ? Adrenals:? Normal morphology and density. ? Reproductive system:? Unremarkable as visualized. ? Urinary system:? Normal renal size and attenuation. No renal calculi, hydronephrosis, or solid mass present.? Urinary bladder unremarkable. ? Gastrointestinal system:? The bowel is unremarkable without evidence of bowel obstruction or inflammation. The stomach appears unremarkable.? Multiple diverticula arise from the sigmoid colon without evidence of diverticulitis. ? ? Appendix:? Normal appendix identified.? No evidence of appendicitis. ? Peritoneal spaces:? There is a small amount of free fluid in the pelvis which is new from the prior exam ? Vasculature:? Aortic atherosclerotic vascular calcification noted without evidence of aneurysm. ? Abdominal wall:? Abdominal wall intact without evidence of ventral or inguinal hernias. ? Musculoskeletal:? Normal bone mineralization.? Degenerative disc disease and arthropathy noted in lower lumbar spine.? No acute fractures.? ? IMPRESSION: ? 1. Small amount of nonspecific free fluid in the pelvis is nevertheless new from the prior exam.? Sigmoid diverticulosis without evidence of diverticulitis ? 2. Small bibasilar pleural effusions and platelike atelectasis in the right lung base ? 3. Additional chronic findings as above ? ? PROCEDURE:? MR AB PANCREATIC/MRCP PROTOCOL ? INDICATIONS:? pancreatitis ? TECHNIQUE:? Coronal HASTE through the abdomen, axial 2-D FLASH in- and [id number], and breath-hold T2 FSE with fat saturation through the biliary system and pancreas.? Oblique coronal and axial thin-slice HASTE, radial thick-slab HASTE centered on the extrahepatic bile ducts.? ? ? Intravenous secretin:? Not requested.? ? COMPARISON:? [facility], MR, MR ABDOMEN WO CON, 04/29/2019, 12:13.? [facility], CT, CT CHEST ABD PEL W CON, 04/15/2022, 17:14. ? FINDINGS:? Image quality:? Adequate ? Pancreas and biliary system:? Intra- and extra-hepatic biliary ducts are non dilated.? No evidence of choledocholithiasis. ? Pancreas is normal in morphology, without adjacent soft tissue edema.? Pancreatic duct is normal in caliber.? ? Gallbladder is absent .? ? Other solid organs:? Liver is normal in size.? Spleen is normal in size.? No adrenal nodules.? Both kidneys are normal in size, without hydronephrosis.? ? Nodes and vessels:? No retroperitoneal or mesenteric adenopathy by size criteria.? Aorta and inferior vena cava are normal in size.? ? Bowel and peritoneum:? Unenhanced bowel loops are normal in caliber.? No substantial free fluid.? ? Lung bases:? Small bilateral pleural effusions. ? ? IMPRESSION:? 1. No definite MRI evidence of acute pancreatitis.? Correlation with the patient's symptoms and serum lipase levels may be helpful.? No organized peripancreatic fluid collection visualized. 2. No biliary ductal dilation or evidence of choledocholithiasis.? 3. Prior cholecystectomy. 4. Small bilateral pleural effusions.? ? ? Dictated by: Branden Marie M.D. on 04/28/2022 at 16:37 ? ? Approved by: Bradnen Marie M.D. on 04/28/2022 at 16:52 ?? Hospital Course: Patient was admitted for treatment of acute pancreatitis. His abdomen and pelvis CT and MRCP did not show any significant findings. He has prior cholecystectomy in May of last year. He was started on amiodarone in February last year and has AFib ablation scheduled in the near future. We considered etiology of drug related pancreatitis. However, he has long history of chronic pancreatitis with acute flare ups prior to initiation of amiodarone. He is normally very careful with what he eats and uses prescription pancreatic enzyme supplements. He does see a GI at the [facility] and has follow-up scheduled in a couple of weeks. Prior to discharge patient was tolerating a diet and doing well. Status at Discharge Cognitive/behavioral status at discharge: oriented Functional status at discharge: independent ambulation Overall status at discharge: patient is back to baseline Time Spent with Patient Time spent: Greater than 30 minutes Exam Vital Signs (past 8 hours): - 05/03/22 08:41 05/03/22 08:36 Temperature 96.7 F L Pulse Rate 69 Respiratory Rate 16 Blood Pressure 120/65 120/65 Pulse Oximetry 96 Oxygen Flow Rate 0 Oxygen Delivery Method Room Air Oxygen Flow Rate 0 Narrative Exam Narrative: General: He is alert pleasant male sitting on side of bed and in no acute distress Objective Labs 05/02/22 04:14 05/02/22 04:14 PFSH Medical History (Updated 05/03/22 @ 11:39 by Brock Herman MD) Acute dehydration Atrial flutter with rapid ventricular response Campylobacter enteritis Claudication in peripheral vascular disease Enteritis, enteropathogenic E. coli Exocrine pancreatic insufficiency Gastroenteritis GERD (gastroesophageal reflux disease) History of cardioversion (03/07/21) HTN (hypertension) Hyperlipidemia Insulin dependent diabetes mellitus with complications Narcolepsy Pancreatitis Paroxysmal atrial fibrillation Peripheral vascular disease Psoriasis Sepsis Surgical History H/O exploratory laparotomy History of epididymectomy History of femoropopliteal bypass Hx of biopsy Family History Father Colon cancer Mother Narcolepsy Grandmother Narcolepsy Social History household members: spouse Smoking Status: Former smoker alcohol intake: former Discharge Plan Discharge Plan Patient Disposition: Home Discharge orders & Medications Prescriptions: Continued clopidogrel [Plavix] 75 mg Tablet 75 mg PO QAM Qty: 0 methylphenidate HCl 20 mg tablet 20 mg PO TID Qty: 90 0RF insulin lispro [Humalog U-100 Insulin] 100 unit/mL solution See Rx Instructions SUBCUT USEASDIRECTD Rx Instructions: 2-4 sliding scale SUBCUT use as directed; gentamicin 0.3 % drops 1 drp EYE-BOTH TID PRN (Reason: Blepharitis) Qty: 5 12RF Creon 24,000-76,000 -120,000 unit capsule,delayed release(DR/EC) 1 cap PO QID Qty: 120 12RF Rx Instructions: administer with meals and/or snacks prn sliding scale. 1 capsule for every 600 calories promethazine 25 mg suppository 25 mg DE Q6H PRN (Reason: Nausea) duloxetine [Cymbalta] 60 mg capsule,delayed release(DR/EC) 60 mg PO QAM Combivent Respimat 20-100 mcg/actuation mist 1 puff inhalation Q4H PRN (Reason: wheezing) acetaminophen [Pain Relief (acetaminophen)] 325 MG tablet 500 mg PO Q4HP PRN (Reason: Pain, Mild) dabigatran etexilate [Pradaxa] 150 mg Capsule 150 mg PO BID pravastatin 80 mg Tablet 80 mg PO BEDTIME Qty: 0 Rx Instructions: 1 tablet daily HS ondansetron 8 mg tablet,disintegrating 4 mg PO PRN PRN (Reason: nausea/vomiting) amiodarone 200 mg Tablet 200 mg PO DAILY Qty: 90 0RF Rx Instructions: Take in evening metoprolol succinate [Toprol XL] 100 mg tablet extended release 24 hr 100 mg PO DAILY Qty: 90 0RF trazodone 50 mg Tablet 50 mg PO BEDTIME PRN (Reason: insomnia) Qty: 30 0RF Rx Instructions: can take 1/2 tab (25mg) if 50 is too strong lisinopril 2.5 mg Tablet 2.5 mg PO QAM diphenhydramine HCl 12.5 mg/5 mL elixir 12.5 mg PO Q6H PRN (Reason: nausea and vomiting) Qty: 500 0RF azelastine inhaler 2 spray intranasal PRN PRN (Reason: Bronchospasm) sennosides [senna] 8.6 mg Tablet 17.2 mg PO BEDTIME Qty: 30 0RF oxycodone 7.5 mg tablet, oral only 7.5 mg PO Q4H PRN (Reason: pain) Qty: 30 0RF Follow up/Referrals: Eric Huang MD [Primary Care Provider] - Diet/Activity/Treatments Diet comment: Resume previous diet Visit Report/Discharge Packet Stand Alone Forms: Patient Portal/API, Stroke Signs & Symptoms Discharge Data Primary Care Provider: Eric Huang Quality VTE Deep Vein Thrombosis/Pulmonary Embolism Present on Admission: No
--- NOTE | 2022-05-03 12:20 | PC.NURSE ---
Pt is dressed and IV has been removed. Declined bg check-states he only finished breakfast a short time ago. Pt's personal meds that were sent to pharmacy have been returned to Pt. Went over d/c instructions with Pt-discussed d/c meds, time of last dose, reviewed stroke education, discussed resuming his BRAT diet at home. No medication changes at this time. Encouraged Pt to drink fluids to prevent dehydration or constipation. Pt awaiting Spouse to arrive and will eat lunch prior to discharge. Pt denies further questions and will be taken out as soon as he is ready to leave.
== END 2022-05-03 13:23 | disposition home health service (06) | DRG 440 ==
LOC: ED 13:56 → AC 13:56
PROVIDERS: Family Medicine; Internal Medicine; Admitting Provider Student in an Organized Health Care Education/Training Program; Emergency Provider Emergency Medicine; Family Provider Nurse Practitioner Family; PCP Family Medicine; Referring Provider Emergency Medicine; Visit Provider Student in an Organized Health Care Education/Training Program
DX: K85.90 Acute pancreatitis without necrosis or infection, unspecified (principal); E11.9 Type 2 diabetes mellitus without complications; I48.0 Paroxysmal atrial fibrillation; G47.419 Narcolepsy without cataplexy; I73.9 Peripheral vascular disease, unspecified; I10 Essential (primary) hypertension; E78.5 Hyperlipidemia, unspecified; G47.00 Insomnia, unspecified; F32.A Depression, unspecified; I95.9 Hypotension, unspecified; K86.1 Other chronic pancreatitis; H01.009 Unspecified blepharitis unspecified eye, unspecified eyelid; Z79.4 Long term (current) use of insulin; Z66 Do not resuscitate; Z87.891 Personal history of nicotine dependence; Z79.01 Long term (current) use of anticoagulants; Z95.820 Peripheral vascular angioplasty status with implants and grafts; Z20.822 Contact with and (suspected) exposure to COVID-19
CPT/HCPCS: 36415; 71045; 74176; 74183; 80048; 80053; 80061; 82550; 82962; 83605; 83690; 83735; 84484; 85025; 85610; 85730; 86803; 87389; 87635; 93005; 94640; 96374; 99284; C9803; A9270; A9579; C9113; J0780; J1170; J1815; J2060; J2405; J3475

== ENCOUNTER → 2022-06-13 08:06 | Outpatient (CLI) | payer OTHER, SELFPAY ==
[2022-04-25 14:13] VITALS: BMI 23.6
--- NOTE | 2022-06-13 08:07 | DI.US.S_ITS ---
PROCEDURE: US THYROID INDICATIONS: LEFT NECK PAINFUL LUMPS TECHNIQUE: Real-time scanning was performed of the thyroid gland, with image documentation. COMPARISON: [facility], MR, MR ORBITS FACE NECK WO CON, 09/30/2019, 16:26. [facility], US, US SOFT TISSUE HEAD OR NECK, 06/06/2019, 14:29. FINDINGS: Right: Thyroid lobe measures 5.2 x 2.5 x 2.2 cm, and is heterogeneous in echotexture. Left: Thyroid lobe measures 4.1 x 1.8 x 1 point cm, and is heterogeneous in echotexture. Isthmus: 0.4 cm thick. Nodule number: 1 Location: Left superior to mid Size: 2.0 x 1.5 x 1.5 cm Composition: Solid Echogenicity: Isoechoic Shape: Wider than tall Margins: Ill-defined Echogenic foci: Macrocalcifications Total points: 5 ACR TI-RADS category: Moderately suspicious Multiple calcified lesions are seen in the bilateral cervical soft tissues. The largest is located on the left measures 2.5 x 2.2 x 1.4 cm, previously 2.7 x 2.6 x 1.6 cm on ultrasound from 06/06/2019. A rounded lymph node is seen in the left superolateral neck measuring 0.9 cm in short axis diameter. Right-sided lymph nodes are seen measuring up to 0.5 cm in short axis. A calcified lesion in the right lateral neck measures up to 0.9 x 0.9 x 0.7 cm. IMPRESSION: 1. Multiple calcified lesions in the neck likely correspond to the patient indicated areas of pain. Overall, these do not appear significantly changed sonographically when compared to the exam from 06/06/2019. Recommend CT of the neck with contrast for further evaluation given these lesions were relatively poorly seen on the prior MRI. 2. Heterogeneous thyroid with a 2.0 cm moderately suspicious left thyroid nodule. Recommend sonographically guided fine needle aspiration for further evaluation. 3. A 0.9 cm left-sided cervical lymph node has somewhat abnormal rounded contour. ACR TI-RADS definitions and recommendations: TI-RADS 1 (benign): 0 points. FNA not needed. TI-RADS 2 (not suspicious): 2 points. FNA not needed. TI-RADS 3 (mildly suspicious): 3 points. * FNA if 2.5 cm or larger, follow up if 1.5 cm or larger (at 1, 3, and 5 years). TI-RADS 4 (moderately suspicious): 4-6 points. * FNA if 1.5 cm or larger, follow up if 1 cm or larger (at 1, 2, 3, and 5 years). TI-RADS 5 (highly suspicious): 7 points or more. * FNA if 1 cm or larger, follow up if 0.5 cm or larger (every year for 5 years). Approved by: Branden Reyna M.D. on 06/13/2022 at 9:16
== END ==
PROVIDERS: Family Provider Nurse Practitioner Family; PCP Family Medicine; Referring Provider Family Medicine; Visit Provider Family Medicine
DX: R59.0 Localized enlarged lymph nodes (principal); E04.1 Nontoxic single thyroid nodule; R22.1 Localized swelling, mass and lump, neck
CPT/HCPCS: 76536

== ENCOUNTER → 2022-07-12 07:53 | Outpatient (CLI) | payer OTHER, SELFPAY ==
[2022-04-25 14:13] VITALS: BMI 23.6
--- NOTE | 2022-07-12 | PATH_ITS ---
Note [facility] Accession Number: [id number] TESTS RESULT FLAG UNITS REF RANGE LAB Clinician Provided Cytology Information No. of containers..01 Other (Miscellaneous) No. of containers..08 Previously Prepared Cytology Slide Source: LEFT THYROID NODULE DIAGNOSIS: LEFT THYROID NODULE INCONCLUSIVE. [place] CATEGORY III. ATYPIA OF UNDETERMINED SIGNIFICANCE. MOLECULAR STUDIES PENDING; RESULTS WILL BE REPORTED SEPARATELY. Pathologist ICD10: R89.6 Signed out by: Eulalia Murray MD, Pathologist NPI- [id number] Performed by: Roberta Jerome, Basket Weaver ([facility]) Gross description: 30 CC, RED, CLEAR RECIEVED: IN CYTOLYT WITH 9 ALCOHOL FIXED AND 9 QUICK STAINED SLIDES ALSO 1 RNA VIAL WAS RECEIVED.VO /VDU 07/13/[address] [place] [address] FLAG LEGEND: L-Low Normal,H-High Normal,LL-Alert Low,HH-Alert High <-Panic Low,>-Panic High,A-Abnormal,AA-Critical Abnormal Performed at: 01 =Z [facility] [address], [place] [address] Sj Estevez MD, Performed at: 01 [facility] [address], [place], [place] [id number] MD Sj Estevez MD Phone: [phone]
--- NOTE | 2022-07-12 07:56 | DI.US.S_ITS ---
PROCEDURE: US FINE NEEDLE ASPIRATION INDICATIONS: LEFT THYROID NODULE TECHNIQUE: The indications, alternatives, benefits, risks, and complications of the procedure were explained to the patient. Written informed consent was obtained and placed in the chart. The area of interest was examined sonographically and a site was chosen for ultrasound guided percutaneous sampling. The skin was prepared and draped in the usual fashion, and anesthetized with 1% lidocaine infiltrated from the skin down to the lesion. Multiple passes were then performed, with contents emptied into an appropriate pathology specimen container. A bandage was applied to the area of access at completion of the study. COMPARISON: None. FINDINGS: Location(s) of lesion(s) sampled: Left inferior pole nodule [place]: 25 gauge hypodermic needles. Number of passes: 9 Medications: 1% lidocaine for local anaesthesia. Complications: None. IMPRESSION: Successful ultrasound-guided left inferior pole nodule fine needle aspiration, with cytology results pending. Dictated by: Imtiaz Hammer M.D. on 07/14/2022 at 8:09 Approved by: Imtiaz Hammer M.D. on 07/14/2022 at 8:09
--- NOTE | 2022-07-12 07:56 | DI.US.S_ITS ---
PROCEDURE: US SOFT TISSUE HEAD AND NECK INDICATIONS: ABNORMAL LEFT SUPERIOR/LATERAL NECK LYMPH NODE TECHNIQUE: Real-time scanning was performed of the neck region of interest, with image documentation. COMPARISON: None. FINDINGS: Attempted biopsy of the right lateral cervical chain node with rounded contours. The biopsy was terminated early, prior to tissue sampling, due to patient discomfort and mobility of nodule, which would not have allowed for consistent tissue sampling. IMPRESSION: Failed left lateral chain lymph node biopsy. Dictated by: Imtiaz Hammer M.D. on 07/12/2022 at 11:04 Approved by: Imtiaz Hammer M.D. on 07/12/2022 at 11:05
[2022-07-13 06:10] LABS: x Labcorp Estim. Avg Glu (eAG) 186 mg/dL (.); x Labcorp Hemoglobin A1c 8.1 % (4.8-5.6)
== END ==
PROVIDERS: Family Provider Nurse Practitioner Family; PCP Family Medicine; Referring Provider Family Medicine; Visit Provider Family Medicine
DX: E04.1 Nontoxic single thyroid nodule (principal); R59.0 Localized enlarged lymph nodes
CPT/HCPCS: 10005; 36415; 76536; 83036

== ENCOUNTER 2022-10-12 17:32 | Emergency (ER) | payer OTHER, SELFPAY ==
[2022-04-25 14:13] VITALS: BMI 23.6
[2022-10-12] VITALS (17 sets, daily range): BP systolic 136–166; BP diastolic 61–86; PULSE 65–104; RESP 14–32; TEMP 36.6; O2SAT 93–99; BMI 24.3
--- NOTE | 2022-10-12 18:17 | PC.NURSE ---
Attempted 3 IV starts unsuccessfully. Contacted another RN.
--- NOTE | 2022-10-12 18:24 | PC.NURSE ---
IV inserted but unable to draw. Contacted lab for phlebotomy; informed it will be at least 30 mins before they can come draw
[2022-10-12 19:09] LABS: Add Manual Diff / Slide Review NO; Basophils Absolute Auto 100 /uL (0-100); Eosinophils Absolute Auto 500 /uL (0-450); Eosinophils Percent Auto 8.1 % (2-4); Hematocrit 36.6 % (41-53); Hemoglobin 12.2 g/dL (13.5-17.5); Lymphocytes Absolute Auto 1500 /uL (1100-4500); Lymphocytes Percent Auto 26.7 % (25-40); Mean Corpuscular HGB Conc 33.4 % (30-36); Mean Corpuscular Volume 83.6 fL (80-100); Monocytes Absolute Auto 600 /uL (0-900); Monocytes Percent Auto 11.2 % (3-14); Neutrophils Absolute Auto 3000 /uL (1500-7000); Platelet Count 272 X10^3/uL (150-400); Red Blood Cell Count 4.37 X10^6/uL (4.5-5.9); Red Cell Distribution Width 15.1 % (11.6-14.8); White Blood Cell Count 5.6 X10^3/uL (4.5-11.0)
--- NOTE | 2022-10-12 19:14 | ED.GENADULT ---
HPI - General Adult General Chief complaint: Abdominal Pain Stated complaint: abd,chest,back pain, n/v/d Time Seen by Provider: 10/12/22 18:02 Source: patient Mode of arrival: Ambulatory History of Present Illness HPI narrative: Patient is a 67-year-old male who has a history of pancreatitis is a insulin-dependent diabetic. States that earlier today he started to have abdominal pain and vomiting which is very similar to his prior episodes of pancreatitis. He states he tried all of his medicines that he has at home to include Compazine and Zofran and Phenergan. He states that he just continues to vomit. He is no problems urinating. Upper abdominal tenderness. No fevers. He did take his pain medication prior to arrival but has also been vomiting so unsure as to how much this he is actually received. Related Data Home Medications Medication Instructions Recorded Confirmed clopidogrel 75 mg tablet (Plavix) 75 mg PO QAM ##0 04/15/08 06/06/22 acetaminophen 325 mg tablet (Pain 500 mg PO Q4HP PRN Pain, Mild 09/25/17 06/06/22 Relief (acetaminophen)) dabigatran etexilate 150 mg 150 mg PO BID 03/24/18 06/06/22 capsule (Pradaxa) pravastatin 80 mg tablet 80 mg PO BEDTIME ##0 02/13/19 06/06/22 lisinopril 2.5 mg tablet 2.5 mg PO QAM blood pressure 04/28/19 06/06/22 insulin lispro 100 unit/mL See Rx Instructions SUBCUT 03/15/20 06/06/22 subcutaneous solution (Humalog USEASDIRECTD U-100 Insulin) promethazine 25 mg rectal 25 mg NM Q6H PRN Nausea 06/17/20 06/06/22 suppository azelastine 2 spray intranasal PRN PRN 05/30/21 06/06/22 Bronchospasm duloxetine 60 mg capsule,delayed 60 mg PO QAM 11/01/21 06/06/22 release (Cymbalta) ipratropium 20 mcg-albuterol 100 1 puff inhalation Q4H PRN wheezing 11/01/21 06/06/22 mcg/actuation mist for inhalation (Combivent Respimat) ondansetron 8 mg disintegrating 4 mg PO PRN PRN nausea/vomiting 02/25/22 06/06/22 tablet metoprolol tartrate 25 mg tablet 12.5 mg PO BID 06/06/22 06/06/22 morphine 15 mg tablet,extended 15 mg PO .HS 06/06/22 06/06/22 release (MS Contin) Previous Rx's Medication Instructions Recorded gentamicin 0.3 % eye drops 1 drp EYE-BOTH TID PRN Blepharitis 03/15/20 #5 mL [id number] 1 cap PO QID #120 caps 03/15/20 24,000-76,000-120,000 unit capsule,delayed rel (Creon) diphenhydramine HCl 12.5 mg/5 mL 12.5 mg (5 mL) PO Q6H PRN nausea 03/15/21 oral elixir and vomiting #500 mL trazodone 50 mg tablet 50 mg PO BEDTIME PRN insomnia #30 03/03/22 tabs oxycodone 7.5 mg tablet,oral ONLY 7.5 mg PO Q4H PRN pain #30 ea 04/18/22 (not for feeding tubes) sennosides 8.6 mg tablet (senna) 17.2 mg PO BEDTIME #30 tabs 04/18/22 methylphenidate HCl 20 mg tablet 20 mg PO TID #90 ea 06/06/22 methylphenidate HCl 20 mg tablet 20 mg PO TID #90 tabs 06/06/22 nitroglycerin 0.3 mg sublingual See Rx Instructions .Route 07/27/22 tablet .COMPLEX #100 ea amiodarone 200 mg tablet 200 mg PO DAILY #90 tabs 09/12/22 methylphenidate HCl 20 mg tablet 20 mg PO TID #90 tabs 10/05/22 Allergies Allergy/AdvReac Type Severity Reaction Status Date / Time Iodine and Iodide Containing Allergy Severe Anaphylaxis Verified 10/12/22 17:47 Produc [IODINE AND IODIDE CONTAINING PRODUC] Sulfa (Sulfonamide Allergy Severe Anaphylaxis Verified 10/12/22 17:47 Antibiotics) [SULFA (SULFONAMIDE ANTIBIOTICS)] gabapentin AdvReac Intermediate Dizziness Verified 10/12/22 17:47 [id number] Reductase AdvReac Intermediate Verified 10/12/22 17:47 Inhibitor metformin AdvReac Mild Verified 10/12/22 17:47 Review of Systems Constitutional Constitutional: Reports system reviewed and no additional complaints, except as documented Cardiovascular Cardiovascular: Reports system reviewed and no additional complaints, except as documented Respiratory Respiratory: Reports system reviewed and no additional complaints, except as documented Gastrointestinal Gastrointestinal: Reports system reviewed and no additional complaints, except as documented Genitourinary Genitourinary: Reports system reviewed and no additional complaints, except as documented Hematologic/Lymphatic On Anticoagulants: No Patient History Medical History Acute dehydration Atrial flutter with rapid ventricular response Atrial flutter with rapid ventricular response Campylobacter enteritis Claudication in peripheral vascular disease Diabetes mellitus Enteritis, enteropathogenic E. coli Exocrine pancreatic insufficiency Gastroenteritis GERD (gastroesophageal reflux disease) History of cardioversion (03/07/21) HTN (hypertension) Hyperlipidemia Insulin dependent diabetes mellitus with complications Narcolepsy Pancreatitis Paroxysmal atrial fibrillation Peripheral vascular disease Psoriasis Sepsis Thyroid nodule Surgical History H/O exploratory laparotomy History of epididymectomy History of femoropopliteal bypass Hx of biopsy Family History Father Colon cancer Mother Narcolepsy Grandmother Narcolepsy Social History household members: spouse Smoking Status: Former smoker alcohol intake: former Smoking Status: Former smoker alcohol intake frequency: holidays/special occasions only Substance Use Type: marijuana Exam Initial Vital Signs Initial Vital Signs: Vital Signs Temperature 97.8 F 10/12/22 17:41 Pulse Rate 74 10/12/22 17:41 Respiratory Rate 22 10/12/22 17:41 Blood Pressure 144/68 H 10/12/22 17:41 Pulse Oximetry 95 10/12/22 17:41 Oxygen Delivery Method Room Air 10/12/22 17:41 Const General: cooperative and ill appearing HENMT Head: normal to inspection and normocephalic Resp Effort & Inspection: normal respiratory effort Cardio Rate: regular rate GI Inspection: non-distended Neuro General: patient alert, patient awake, patient oriented x3 and moves all extremities Extrem General: capillary refill normal Course Orders Ordered: ED Orders 10/12/22 17:57 EKG-12 Lead Stat 10/12/22 18:54 Complete Blood Count AUTO DIFF Stat Comprehensive Metabolic Panel Stat Lipase Stat Ondansetron HCl (Ondansetron 4 Mg Odt) 4 mg PO NOW PRN PRN Reason: Nausea And Vomiting Ondansetron HCl (Ondansetron 4 Mg/2 Ml Inj) 4 mg IV NOW PRN PRN Reason: Nausea And Vomiting Discontinued Medications Haloperidol (Haloperidol 5 Mg/Ml Vial) 5 mg IV NOW ONE Stop: 10/12/22 20:51 Last Admin: 10/12/22 21:15 Dose: 5 mg Documented By: Hydromorphone HCl (Hydromorphone 1 Mg Inj) 1 mg IV NOW ONE Stop: 10/12/22 19:18 Last Admin: 10/12/22 19:36 Dose: 1 mg Documented By: Sodium Chloride (Normal Saline 0.9%) 1,000 mls @ 1,000 mls/hr IV BOLUS ONE Stop: 10/12/22 20:14 Last Infusion: 10/12/22 21:27 Dose: 0 mls/hr Documented By: Admin: 10/12/22 19:29 Dose: 1,000 mls/hr Documented By: Sodium Chloride (Normal Saline 0.9%) 1,000 mls @ 1,000 mls/hr IV BOLUS ONE Stop: 10/12/22 22:55 Last Infusion: 10/12/22 23:59 Dose: 0 mls/hr Documented By: Admin: 10/12/22 22:01 Dose: 1,000 mls/hr Documented By: Metoclopramide HCl (Metoclopramide 10 Mg/2 Ml Inj) 10 mg IV NOW ONE Stop: 10/12/22 19:16 Last Admin: 10/12/22 19:22 Dose: 10 mg Documented By: Vital Signs Vital signs: Vital Signs - 8 hr 10/12/22 17:41 10/12/22 17:51 10/12/22 17:53 Temperature 97.8 F Pulse Rate 74 72 72 Respiratory Rate 22 26 H Blood Pressure 144/68 H Pulse Oximetry 95 97 96 Oxygen Delivery Method Room Air 10/12/22 17:53 10/12/22 18:00 10/12/22 18:30 Temperature Pulse Rate 71 67 Respiratory Rate 24 32 H Blood Pressure 149/70 H Pulse Oximetry 99 98 Oxygen Delivery Method 10/12/22 18:56 10/12/22 18:56 10/12/22 19:00 Temperature Pulse Rate 65 Respiratory Rate 18 Blood Pressure 141/67 H 139/67 Pulse Oximetry 99 Oxygen Delivery Method 10/12/22 19:00 10/12/22 19:30 10/12/22 19:30 Temperature Pulse Rate 66 70 Respiratory Rate 16 26 H Blood Pressure 144/71 H Pulse Oximetry 99 99 Oxygen Delivery Method 10/12/22 20:00 10/12/22 20:00 10/12/22 20:30 Temperature Pulse Rate 69 Respiratory Rate 14 Blood Pressure 164/74 H 166/79 H Pulse Oximetry 97 Oxygen Delivery Method 10/12/22 20:30 10/12/22 21:00 10/12/22 21:00 Temperature Pulse Rate 92 H 90 Respiratory Rate 26 H 23 Blood Pressure 136/74 Pulse Oximetry 99 98 Oxygen Delivery Method 10/12/22 21:30 10/12/22 21:30 10/12/22 22:00 Temperature Pulse Rate 87 101 H Respiratory Rate 27 H 31 H Blood Pressure 148/68 H Pulse Oximetry 94 99 Oxygen Delivery Method 10/12/22 22:01 10/12/22 22:01 10/12/22 22:30 Temperature Pulse Rate 104 H Respiratory Rate Blood Pressure 142/86 H 138/64 Pulse Oximetry Oxygen Delivery Method 10/12/22 22:30 10/12/22 23:00 10/12/22 23:00 Temperature Pulse Rate 92 H 91 H Respiratory Rate 24 24 Blood Pressure 136/61 Pulse Oximetry 97 93 Oxygen Delivery Method 10/12/22 23:30 10/12/22 23:30 10/13/22 00:00 Temperature Pulse Rate 92 H Respiratory Rate 32 H Blood Pressure 143/65 H 151/72 H Pulse Oximetry 95 Oxygen Delivery Method 10/13/22 00:00 Temperature Pulse Rate 96 H Respiratory Rate 27 H Blood Pressure Pulse Oximetry Oxygen Delivery Method Medical Decision Making Medical Records Medical records reviewed: Yes I reviewed the patient's medical records. Lab Data Lab results reviewed: Yes I reviewed the patient's lab results. 10/12/22 18:54 10/12/22 18:54 Labs: Lab Results 10/12/22 10/12/22 Range/Units 18:54 18:54 WBC 5.6 (4.5-11.0) X10^3/uL RBC 4.37 L (4.5-5.9) X10^6/uL Hgb 12.2 L (13.5-17.5) g/dL Hct 36.6 L (41-53) % MCV 83.6 (80-100) fL MCH 28.0 (26-34) PG MCHC 33.4 (30-36) % RDW 15.1 H (11.6-14.8) % Plt Count 272 (150-400) X10^3/uL Neut % (Auto) 53.0 (50-75) % Lymph % (Auto) 26.7 (25-40) % [place] % (Auto) 11.2 (3-14) % Eos % (Auto) 8.1 H (2-4) % Baso % (Auto) 1.0 (0-2) % Neut # (Auto) 3000 (3486-0852) /uL Lymph # (Auto) 1500 (8299-6388) /uL [place] # (Auto) 600 (0-900) /uL Eos # (Auto) 500 H (0-450) /uL Baso # (Auto) 100 (0-100) /uL Sodium 138 (137-145) mmol/L Potassium 4.0 (3.4-5.1) mmol/L Chloride 99 (98-107) mmol/L Carbon Dioxide 32 (22-32) mmol/L BUN 14 (9-20) mg/dL Creatinine 0.82 (0.66-1.25) mg/dL Estimated GFR > 60 (>60) mL/min BUN/Creatinine Ratio 17.1 (6-22) Glucose 118 H (80-110) mg/dL Calcium 9.5 (8.4-10.2) mg/dL Total Bilirubin 0.2 (0.2-1.3) mg/dL AST 29 (17-59) IU/L ALT 25 (<50) IU/L Alkaline Phosphatase 87 (38-126) U/L Total Protein 7.3 (6.3-8.2) g/dL Albumin 4.5 (3.5-5.0) g/dL Globulin 2.8 (1.7-4.1) g/dL Albumin/Globulin Ratio 1.6 (1.0-2.8) Lipase 128 (23-300) U/L Urine Dip Bedside Urine Glucose Negative Bedside Urine Bilirubin - Negative Bedside Urine Ketone - Negative Urine Specific [place] 1.01 Bedside Urine Occult Blood - Negative Bedside Urine pH 7.5 Bedside Urine Protein - Negative Bedside Urine Urobilinogen - Negative Bedside Urine Nitrite - Negative Bedside Urine Leukocytes - Negative Esterase Point of care testing: Urine Dip Bedside Urine Glucose Negative Bedside Urine Bilirubin - Negative Bedside Urine Ketone - Negative Urine Specific [place] 1.01 Bedside Urine Occult Blood - Negative Bedside Urine pH 7.5 Bedside Urine Protein - Negative Bedside Urine Urobilinogen - Negative Bedside Urine Nitrite - Negative Bedside Urine Leukocytes - Negative Esterase ECG Data Attestation: I personally reviewed and interpreted this ECG as follows: Interpretation: Sinus rhythm Ventricular rate is 72 Normal axis Normal QRS Normal QTC No ST T wave changes MDM Narrative Medical decision making narrative: Patient's labs today are fairly unremarkable. His lipase is unremarkable. He is afebrile. His LFTs are normal. Patient not in DKA. After multiple medications to try to help with the nausea and the pain and after fluids he stated that he was feeling somewhat better. He stated that he felt like he can manage his symptoms at home with his home medications. We discussed potentially admitting him to the hospital but he would like to go home and given his labs in his presentation today this is not unreasonable. Will discharge patient home with return precautions. He expressed understanding and agreement. Discharge Plan Departure Patient Disposition: Home Clinical Impression: Nausea & vomiting, Abdominal pain Instructions: DI for Abdominal Pain-Adult, Nausea and Vomiting-Adult Activity Restrictions/Additional Instructions: I do recommend that you continue to take all of your medications as directed. Be sure that you are trying to increase your fluid intake but drinking smaller amounts more frequently. Return to the emergency department for new or worsening symptoms. Prescriptions: No Action clopidogrel [Plavix] 75 mg Tablet 75 mg PO QAM Qty: 0 nitroglycerin 0.3 mg tablet, sublingual See Rx Instructions .ROUTE .COMPLEX Qty: 100 0RF Dose Instruction: PLACE 1 TABLET (0.3 MG TOTAL) UNDER THE TONGUE EVERY 5 (FIVE) MINUTES NEEDED FOR CHEST PAIN FOR UP TO 7 DAYS MAY REPEAT EVERY 5 MINUTES UP TO [address] DOS[address] Rx [address]ructions: PL[address] 1 TABLET (0.3 MG TOTAL) UNDER THE TONGUE EVERY 5 (FIVE) MINUTES NEEDED FOR CHEST PAIN FOR UP TO 7 DAYS MAY REPEAT EVERY 5 MINUTES UP TO 3 DOSES. amiodarone 200 mg tablet 200 mg PO DAILY Qty: 90 3RF Rx Instructions: Take in evening methylphenidate HCl 20 mg tablet 20 mg PO TID Qty: 90 0RF insulin lispro [Humalog U-100 Insulin] 100 unit/mL solution See Rx Instructions SUBCUT USEASDIRECTD Rx Instructions: 2-4 sliding scale SUBCUT use as directed; gentamicin 0.3 % drops 1 drp EYE-BOTH TID PRN (Reason: Blepharitis) Qty: 5 12RF Creon 24,000-76,000 -120,000 unit capsule,delayed release(DR/EC) 1 cap PO QID Qty: 120 12RF Rx Instructions: administer with meals and/or snacks prn sliding scale. 1 capsule for every 600 calories metoprolol tartrate 25 mg tablet 12.5 mg PO BID morphine [MS Contin] 15 mg tablet extended release 15 mg PO .HS methylphenidate HCl 20 mg tablet 20 mg PO TID Qty: 90 0RF methylphenidate HCl 20 mg tablet 20 mg PO TID Qty: 90 0RF promethazine 25 mg suppository 25 mg NM Q6H PRN (Reason: Nausea) duloxetine [Cymbalta] 60 mg capsule,delayed release(DR/EC) 60 mg PO QAM Combivent Respimat 20-100 mcg/actuation mist 1 puff inhalation Q4H PRN (Reason: wheezing) acetaminophen [Pain Relief (acetaminophen)] 325 MG tablet 500 mg PO Q4HP PRN (Reason: Pain, Mild) dabigatran etexilate [Pradaxa] 150 mg Capsule 150 mg PO BID pravastatin 80 mg Tablet 80 mg PO BEDTIME Qty: 0 Rx Instructions: 1 tablet daily HS ondansetron 8 mg tablet,disintegrating 4 mg PO PRN PRN (Reason: nausea/vomiting) trazodone 50 mg Tablet 50 mg PO BEDTIME PRN (Reason: insomnia) Qty: 30 0RF Rx Instructions: can take 1/2 tab (25mg) if 50 is too strong lisinopril 2.5 mg Tablet 2.5 mg PO QAM diphenhydramine HCl 12.5 mg/5 mL elixir 12.5 mg PO Q6H PRN (Reason: nausea and vomiting) Qty: 500 0RF azelastine inhaler 2 spray intranasal PRN PRN (Reason: Bronchospasm) sennosides [senna] 8.6 mg Tablet 17.2 mg PO BEDTIME Qty: 30 0RF oxycodone 7.5 mg tablet, oral only 7.5 mg PO Q4H PRN (Reason: pain) Qty: 30 0RF Referrals: Eric Huang MD [Primary Care Provider] - Stand Alone Forms: Patient Portal/API
[2022-10-12] MEDS: METOCLOPRAMIDE 10 MG/2 ML INJ IV (19:22)
[2022-10-12] MEDS: SODIUM CHLORIDE 0.9% 1,000 ML 1000 ML IV ×2 (19:29→22:01)
[2022-10-12 19:32] LABS: Alanine Aminotransferase 25 IU/L (<50); Albumin 4.5 g/dL (3.5-5.0); Albumin Globulin Ratio 1.6 (1.0-2.8); Alkaline Phosphatase 87 U/L (38-126); Aspartate Aminotransferase 29 IU/L (17-59); BUN Creatinine Ratio 17.1 (6-22); Bilirubin Total 0.2 mg/dL (0.2-1.3); Blood Urea Nitrogen 14 mg/dL (9-20); Calcium 9.5 mg/dL (8.4-10.2); Carbon Dioxide 32 mmol/L (22-32); Chloride 99 mmol/L (98-107); Estimated Glomerular Filt Rate > 60 mL/min (>60); Globulin 2.8 g/dL (1.7-4.1); Glucose 118 mg/dL (80-110); HEMOLYSIS < 15 (0-50); Lipase 128 U/L (23-300); Sodium 138 mmol/L (137-145); Total Protein 7.3 g/dL (6.3-8.2)
[2022-10-12] MEDS: HYDROMORPHONE 1 MG INJ IV (19:36)
[2022-10-12] MEDS: HALOPERIDOL 5 MG/ML VIAL IV (21:15)
--- NOTE | 2022-10-12 22:01 | PC.NURSE ---
Pt still vomiting. Provider informed.
[2022-10-13] VITALS: BP 151/72; PULSE 96; RESP 27
--- NOTE | 2022-10-13 00:16 | PC.NURSE ---
[place] better and wanted to go home.
== END 2022-10-13 00:15 | disposition home or self-care (01) ==
PROVIDERS: Emergency Medicine; Emergency Provider Emergency Medicine; Family Provider Nurse Practitioner Family; PCP Family Medicine
DX: R10.9 Unspecified abdominal pain (principal); R11.2 Nausea with vomiting, unspecified
CPT/HCPCS: 36415; 80053; 81003; 83690; 85025; 93005; 96361; 96374; 96375; 99284; J1170; J1630; J2765

== ENCOUNTER → 2022-10-26 07:33 | Outpatient (CLI) | payer OTHER, SELFPAY ==
[2022-04-25 14:13] VITALS: BMI 23.6
--- NOTE | 2022-10-26 | DI.US.S_ITS ---
PROCEDURE: US THYROID INDICATIONS: THYROID NODULE TECHNIQUE: Real-time scanning was performed of the thyroid gland, with image documentation. COMPARISON: [facility], US, US THYROID, 06/13/2022, 8:19. FINDINGS: Right: Thyroid lobe measures 5.0 x 2.5 x 2.1 cm, and is heterogeneous in echotexture. Left: Thyroid lobe measures 3.8 x 1.7 x 1.6 cm, and is heterogeneous in echotexture. Isthmus: 4 mm thick. Nodule number: 1 Location: Left lobe superior Size: 2.1 x 1.4 x 1.8 cm. Previously 2.0 x 1.5 x 1.5 cm Composition: Solid Echogenicity: Isoechoic Shape: wider than tall. Margins: Smooth Echogenic foci: Macrocalcification Total points: 4 ACR TI-RADS category: 4 Multiple indeterminate calcified masses/lesions present within the neck soft tissues for example the right neck lateral/mid-lateral 1.1 x 0.7 x 1.1 cm previously 0.9 x 0.9 x 0.7 cm and the left neck mid/medial 2.6 x 1.6 x 2.4 cm previously 2.5 x 2.2 x 1.4 cm. Multiple prominent lymph nodes present within the neck soft tissues not significantly changed in the range of 8-9 mm short axis. IMPRESSION: 1. No significant change in size of the previously demonstrated nodule at the left superior lobe of the thyroid gland. The nodule meets TI-RADS criteria for FNA recommendation. Correlation with any prior FNA results is recommended. 2. Redemonstrated neck masses/lesions and prominent lymph nodes, not significantly changed, indeterminate. CT may be helpful for further evaluation and/or attention on follow-up. ACR TI-RADS definitions and recommendations: TI-RADS 1 (benign): 0 points. FNA not needed. TI-RADS 2 (not suspicious): 2 points. FNA not needed. TI-RADS 3 (mildly suspicious): 3 points. * FNA if 2.5 cm or larger, follow up if 1.5 cm or larger (at 1, 3, and 5 years). TI-RADS 4 (moderately suspicious): 4-6 points. * FNA if 1.5 cm or larger, follow up if 1 cm or larger (at 1, 2, 3, and 5 years). TI-RADS 5 (highly suspicious): 7 points or more. * FNA if 1 cm or larger, follow up if 0.5 cm or larger (every year for 5 years). Dictated by: Branden Marie M.D. on 10/27/2022 at 10:15 Approved by: Branden Marie M.D. on 10/27/2022 at 10:24
--- NOTE | 2022-10-26 | DI.MRI.S_ITS ---
PROCEDURE: MR ABDOME PELVIS WWO CON INDICATIONS: PANCREATITIS TECHNIQUE: Coronal HASTE, axial 2D FLASH in- and [id number]; axial breath-hold T2 FSE; dynamic axial VIBE during IV gadolinium administration; postgadolinium coronal VIBE or 2D FLASH with fat saturation from the hepatic dome to the iliac crests. COMPARISON: None. FINDINGS: Image quality: Excellent. Lung bases: No basal effusions. Normal size heart. No hiatal hernia. Solid organs: Pancreatic signal and morphology is normal. No pancreatic ductal dilatation. No enhancing mass. No peripancreatic fluid or edema. The liver is normal size without mass. The gallbladder is surgically absent. There is mild central intrahepatic biliary dilatation with common hepatic duct measuring up to 1.3 cm, which can be physiologic post cholecystectomy. The common bile duct is normal. No filling defects. The adrenal glands, kidneys, and spleen appear normal. Nodes and vessels: IVC and abdominal aorta are normal caliber. Retro aortic left renal vein. No ureteral dilatation. Bowel and peritoneum: Stomach, small bowel, appendix are normal. There is diverticulosis through the distal descending and sigmoid colon. Pelvis: Urinary bladder wall is normal thickness. Distal ureters are nondistended. Prostate gland is normal size. Pelvic vasculature is normal caliber. No pelvic adenopathy. Bones and soft tissues: Normal marrow signal. No suspicious enhancement. No significant hernias. IMPRESSION: 1. Normal pancreas without evidence of acute pancreatitis or complications of prior pancreatitis. 2. Post cholecystectomy with probably physiologic post procedural intrahepatic biliary dilatation. The extrahepatic biliary tree is nondilated. Correlate with LFTs to determine any clinical significance. 3. Distal colonic diverticulosis without acute diverticulitis. Dictated by: Pamella Ye M.D. on 10/27/2022 at 10:25 Approved by: Pamella Ye M.D. on 10/27/2022 at 10:35
== END ==
PROVIDERS: Family Provider Nurse Practitioner Family; PCP Family Medicine; Referring Provider Nurse Practitioner Family; Visit Provider Internal Medicine Gastroenterology
DX: K86.1 Other chronic pancreatitis (principal); E04.1 Nontoxic single thyroid nodule; K57.90 Diverticulosis of intestine, part unspecified, without perforation or abscess without bleeding; Z90.49 Acquired absence of other specified parts of digestive tract
CPT/HCPCS: 72197; 74183; 76536; A9579

== ENCOUNTER 2022-10-31 14:10 | Emergency (ER) | payer OTHER, SELFPAY ==
[2022-04-25 14:13] VITALS: BMI 23.6
[2022-10-31 14:31] VITALS: BP 144/67; PULSE 76; RESP 18; TEMP 37.1; O2SAT 98; BMI 24.3
[2022-10-31 19:11] LABS: Alanine Aminotransferase 27 IU/L (<50); Albumin 4.6 g/dL (3.5-5.0); Albumin Globulin Ratio 1.4 (1.0-2.8); Alkaline Phosphatase 72 U/L (38-126); Aspartate Aminotransferase 34 IU/L (17-59); BUN Creatinine Ratio 17.9 (6-22); Bilirubin Total 0.4 mg/dL (0.2-1.3); Blood Urea Nitrogen 12 mg/dL (9-20); Calcium 9.2 mg/dL (8.4-10.2); Carbon Dioxide 29 mmol/L (22-32); Chloride 102 mmol/L (98-107); Estimated Glomerular Filt Rate > 60 mL/min (>60); Globulin 3.3 g/dL (1.7-4.1); Glucose 75 mg/dL (80-110); HEMOLYSIS < 15 (0-50); Lipase 237 U/L (23-300); Potassium 3.6 mmol/L (3.4-5.1); Sodium 139 mmol/L (137-145); Total Protein 7.9 g/dL (6.3-8.2)
[2022-10-31 19:21] LABS: Add Manual Diff / Slide Review NO; Basophils Absolute Auto 0 /uL (0-100); Basophils Percent Auto 0.8 % (0-2); Eosinophils Absolute Auto 200 /uL (0-450); Eosinophils Percent Auto 4.4 % (2-4); Hematocrit 39.3 % (41-53); Hemoglobin 12.8 g/dL (13.5-17.5); Lymphocytes Absolute Auto 1200 /uL (1100-4500); Lymphocytes Percent Auto 23.5 % (25-40); Mean Corpuscular HGB Conc 32.7 % (30-36); Mean Corpuscular Hemoglobin 27.4 PG (26-34); Mean Corpuscular Volume 83.8 fL (80-100); Monocytes Absolute Auto 500 /uL (0-900); Monocytes Percent Auto 10.1 % (3-14); Neutrophils Absolute Auto 3200 /uL (1500-7000); Neutrophils Percent Auto 61.2 % (50-75); Platelet Count 383 X10^3/uL (150-400); Red Blood Cell Count 4.69 X10^6/uL (4.5-5.9); Red Cell Distribution Width 15.2 % (11.6-14.8); White Blood Cell Count 5.3 X10^3/uL (4.5-11.0)
--- NOTE | 2022-10-31 22:01 | ED_ITS ---
HPI - Abdominal Pain General Chief Complaint: Abdominal Pain Stated Complaint: Pancreas/stomach problems, N/V/D Time Seen by Provider: 10/31/22 21:56 Source: patient Mode of arrival: Ambulatory History of Present Illness HPI narrative: Patient 67-year-old male history of atrial fibrillation on Pradaxa with recent ablation last week, pancreatitis, insulin-dependent diabetes presenting today with nausea vomiting and diarrhea ongoing for last 3 days. He reports that he is had at least 8-10 episodes of liquid diarrhea he has been quite nauseous with vomiting. He is taken Zofran Compazine and promethazine at home without help. He is able to keep down his morphine and oxycodone for his chronic pain. He occasionally has chest pain. No significant shortness of breath. He has been warm sweaty and diaphoretic unclear if he is had fever no chills. Related Data Home Medications Medication Instructions Recorded Confirmed clopidogrel 75 mg tablet (Plavix) 75 mg PO QAM ##0 04/15/08 06/06/22 acetaminophen 325 mg tablet (Pain 500 mg PO Q4HP PRN Pain, Mild 09/25/17 06/06/22 Relief (acetaminophen)) dabigatran etexilate 150 mg 150 mg PO BID 03/24/18 06/06/22 capsule (Pradaxa) pravastatin 80 mg tablet 80 mg PO BEDTIME ##0 02/13/19 06/06/22 lisinopril 2.5 mg tablet 2.5 mg PO QAM blood pressure 04/28/19 06/06/22 insulin lispro 100 unit/mL See Rx Instructions SUBCUT 03/15/20 06/06/22 subcutaneous solution (Humalog USEASDIRECTD U-100 Insulin) promethazine 25 mg rectal 25 mg OK Q6H PRN Nausea 06/17/20 06/06/22 suppository azelastine 2 spray intranasal PRN PRN 05/30/21 06/06/22 Bronchospasm duloxetine 60 mg capsule,delayed 60 mg PO QAM 11/01/21 06/06/22 release (Cymbalta) ipratropium 20 mcg-albuterol 100 1 puff inhalation Q4H PRN wheezing 11/01/21 06/06/22 mcg/actuation mist for inhalation (Combivent Respimat) ondansetron 8 mg disintegrating 4 mg PO PRN PRN nausea/vomiting 02/25/22 06/06/22 tablet metoprolol tartrate 25 mg tablet 12.5 mg PO BID 06/06/22 06/06/22 morphine 15 mg tablet,extended 15 mg PO .HS 06/06/22 06/06/22 release (MS Contin) Previous Rx's Medication Instructions Recorded gentamicin 0.3 % eye drops 1 drp EYE-BOTH TID PRN Blepharitis 03/15/20 #5 mL [id number] 1 cap PO QID #120 caps 03/15/20 24,000-76,000-120,000 unit capsule,delayed rel (Creon) diphenhydramine HCl 12.5 mg/5 mL 12.5 mg (5 mL) PO Q6H PRN nausea 03/15/21 oral elixir and vomiting #500 mL trazodone 50 mg tablet 50 mg PO BEDTIME PRN insomnia #30 03/03/22 tabs oxycodone 7.5 mg tablet,oral ONLY 7.5 mg PO Q4H PRN pain #30 ea 04/18/22 (not for feeding tubes) sennosides 8.6 mg tablet (senna) 17.2 mg PO BEDTIME #30 tabs 04/18/22 methylphenidate HCl 20 mg tablet 20 mg PO TID #90 ea 06/06/22 methylphenidate HCl 20 mg tablet 20 mg PO TID #90 tabs 06/06/22 nitroglycerin 0.3 mg sublingual See Rx Instructions .Route 07/27/22 tablet .COMPLEX #100 ea amiodarone 200 mg tablet 200 mg PO DAILY #90 tabs 09/12/22 methylphenidate HCl 20 mg tablet 20 mg PO TID #90 tabs 10/05/22 metoclopramide HCl 10 mg tablet 10 mg PO Q6H PRN nausea and 11/01/22 (Reglan) vomiting #20 tabs Allergies Allergy/AdvReac Type Severity Reaction Status Date / Time Iodine and Iodide Containing Allergy Severe Anaphylaxis Verified 10/12/22 17:47 Produc [IODINE AND IODIDE CONTAINING PRODUC] Sulfa (Sulfonamide Allergy Severe Anaphylaxis Verified 10/12/22 17:47 Antibiotics) [SULFA (SULFONAMIDE ANTIBIOTICS)] gabapentin AdvReac Intermediate Dizziness Verified 10/12/22 17:47 [id number] Reductase AdvReac Intermediate Verified 10/12/22 17:47 Inhibitor metformin AdvReac Mild Verified 10/12/22 17:47 Review of Systems Review of Systems ROS Unobtainable: All systems reviewed & are unremarkable except as noted in HPI and below Patient History Medical History Acute dehydration Atrial flutter with rapid ventricular response Atrial flutter with rapid ventricular response Campylobacter enteritis Claudication in peripheral vascular disease Diabetes mellitus Enteritis, enteropathogenic E. coli Exocrine pancreatic insufficiency Gastroenteritis GERD (gastroesophageal reflux disease) History of cardioversion (03/07/21) HTN (hypertension) Hyperlipidemia Insulin dependent diabetes mellitus with complications Narcolepsy Pancreatitis Paroxysmal atrial fibrillation Peripheral vascular disease Psoriasis Sepsis Thyroid nodule Surgical History H/O exploratory laparotomy History of epididymectomy History of femoropopliteal bypass Hx of biopsy Family History Father Colon cancer Mother Narcolepsy Grandmother Narcolepsy Social History household members: spouse Smoking Status: Former smoker alcohol intake: former Smoking Status: Former smoker alcohol intake frequency: holidays/special occasions only Substance Use Type: marijuana Exam Initial Vital Signs Initial Vital Signs: Vital Signs Temperature 98.7 F 10/31/22 14:31 Pulse Rate 76 10/31/22 14:31 Respiratory Rate 18 10/31/22 14:31 Blood Pressure 144/67 H 10/31/22 14:31 Pulse Oximetry 98 10/31/22 14:31 Oxygen Delivery Method Room Air 10/31/22 14:31 GENERAL: 67-year-old male appears to not feel well HEENT: Head atraumatic,EOMI, pupils reactive, face symmetric, moist mucous membranes CARDIOVASCULAR: Regular rate and rhythm without murmurs, rubs or gallops. RESPIRATORY: Breath sounds equal bilaterally, no wheezes rales or rhonchi. ABDOMEN: Soft, mild diffuse tenderness no distention no guarding no rebound EXTREMITIES: Normal range of motion, no clubbing or edema. Neurovascularly intact NEUROLOGICAL: Alert and oriented x4.Normal gait and speech. SKIN: Warm, dry, no laceration, no petechiae, no rashes or lesions. Course Orders Ordered: ED Orders 10/31/22 22:10 CT abdomen pelvis w con Stat Discontinued Medications Diphenhydramine HCl (Diphenhydramine 50 Mg/Ml Vial) 25 mg IV NOW ONE Stop: 10/31/22 22:17 Last Admin: 10/31/22 22:27 Dose: 25 mg Documented By: ALLISON Hydromorphone HCl (Hydromorphone 1 Mg Inj) 1 mg IV NOW ONE Stop: 10/31/22 22:11 Last Admin: 10/31/22 22:28 Dose: 1 mg Documented By: ALLISON Sodium Chloride (Normal Saline 0.9%) 1,000 mls @ 1,000 mls/hr IV BOLUS ONE Stop: 10/31/22 23:09 Last Infusion: 11/01/22 00:31 Dose: 0 mls/hr Documented By: Admin: 10/31/22 22:27 Dose: 1,000 mls/hr Documented By: ALLISON Methylprednisolone (Methylprednisolone 125 Mg/2 Ml Vial) 125 mg IV NOW ONE Stop: 10/31/22 22:17 Last Admin: 10/31/22 22:27 Dose: 125 mg Documented By: ALLISON Metoclopramide HCl (Metoclopramide 10 Mg/2 Ml Inj) 10 mg IV NOW ONE Stop: 10/31/22 22:15 Last Admin: 10/31/22 22:27 Dose: 10 mg Documented By: ALLISON Ondansetron HCl (Ondansetron 4 Mg Odt) 4 mg PO NOW PRN PRN Reason: Nausea And Vomiting Ondansetron HCl (Ondansetron 4 Mg/2 Ml Inj) 4 mg IV NOW PRN PRN Reason: Nausea And Vomiting Vital Signs Vital signs: Vital Signs - 8 hr 10/31/22 14:31 Temperature 98.7 F Pulse Rate 76 Respiratory Rate 18 Blood Pressure 144/67 H Pulse Oximetry 98 Oxygen Delivery Method Room Air MDM - Abdominal Pain Lab Data 10/31/22 15:45 10/31/22 15:45 Labs: Lab Results 10/31/22 10/31/22 10/31/22 Range/Units 15:45 15:45 15:45 WBC 5.3 (4.5-11.0) X10^3/uL RBC 4.69 (4.5-5.9) X10^6/uL Hgb 12.8 L (13.5-17.5) g/dL Hct 39.3 L (41-53) % MCV 83.8 (80-100) fL MCH 27.4 (26-34) PG MCHC 32.7 (30-36) % RDW 15.2 H (11.6-14.8) % Plt Count 383 (150-400) X10^3/uL Neut % (Auto) 61.2 (50-75) % Lymph % (Auto) 23.5 L (25-40) % [place] % (Auto) 10.1 (3-14) % Eos % (Auto) 4.4 H (2-4) % Baso % (Auto) 0.8 (0-2) % Neut # (Auto) 3200 (3540-2889) /uL Lymph # (Auto) 1200 (0456-1623) /uL [place] # (Auto) 500 (0-900) /uL Eos # (Auto) 200 (0-450) /uL Baso # (Auto) 0 (0-100) /uL Sodium 139 (137-145) mmol/L Potassium 3.6 (3.4-5.1) mmol/L Chloride 102 (98-107) mmol/L Carbon Dioxide 29 (22-32) mmol/L BUN 12 (9-20) mg/dL Creatinine 0.67 (0.66-1.25) mg/dL Estimated GFR > 60 (>60) mL/min BUN/Creatinine Ratio 17.9 (6-22) Glucose 75 L (80-110) mg/dL Calcium 9.2 (8.4-10.2) mg/dL Total Bilirubin 0.4 (0.2-1.3) mg/dL AST 34 (17-59) IU/L ALT 27 (<50) IU/L Alkaline Phosphatase 72 (38-126) U/L Total Creatine Kinase 170 (55-170) U/L Troponin I < 0.012 (0.01-0.034) ng/mL Total Protein 7.9 (6.3-8.2) g/dL Albumin 4.6 (3.5-5.0) g/dL Globulin 3.3 (1.7-4.1) g/dL Albumin/Globulin Ratio 1.4 (1.0-2.8) Lipase 237 (23-300) U/L Point of care testing: Urine Dip Bedside Urine Glucose Negative Bedside Urine Bilirubin - Negative Bedside Urine Ketone - Negative Urine Specific [place] 1.010 Bedside Urine Occult Blood - Negative Bedside Urine pH 6.0 Bedside Urine Protein - Negative Bedside Urine Urobilinogen - Negative Bedside Urine Nitrite - Negative Bedside Urine Leukocytes - Negative Esterase Imaging Data CT scan - abdomen/pelvis: Radiologist's Impression: PROCEDURE:? CT ABDOMEN PELVIS W CON ? INDICATIONS:? hx pancreatitis with vomiting ? TECHNIQUE:? After the administration of IV contrast, axial sections were acquired from the lung bases to the pubic symphysis.? Coronal and sagittal reformats were performed.? For radiation dose reduction, the following was used:? automated exposure control, adjustment of mA and/or kV according to patient size. ? COMPARISON:? [facility], MR, MR ABDOMEN PELVIS WWO CON, 10/26/2022, 7:51.? [facility], CT, CT ABDOMEN PELVIS WO CON, 04/28/2022, 17:52.? [facility], CT, CT ABDOMEN PELVIS W CON, 06/02/2021, 14:49. ? FINDINGS:? Image quality:? Excellent.? ? Lung bases:? Unremarkable.? ? Heart:? Heart is normal in size. ? ? ABDOMEN: Liver:? There is diffuse heterogeneous enhancement of the liver.? Gallbladder:? Surgically absent. Biliary ducts:? There is mild central intrahepatic biliary ductal dilatation which may reflect sequelae of prior cholecystectomy.? Common bile duct is normal in caliber. Pancreas:? No peripancreatic fat stranding or fluid.? No peripancreatic fluid collections.? No pancreatic duct dilatation or discrete pancreatic mass. Spleen:? Normal in size.? ? Adrenal Glands:? No adrenal nodules.? ? Kidneys and Ureters:? No hydronephrosis.? ? ? Stomach and Bowel:? Stomach, small bowel loops, and colon are normal in caliber and wall thickness.? The appendix is normal.? There is colonic diverticulosis without acute diverticulitis. Peritoneum:? No abnormal intraperitoneal fluid.? No free air.? ? Ventral Wall: ? No hernia.? Abdominal Nodes:? No retroperitoneal or mesenteric adenopathy by size criteria.? Vessels:? Aorta and inferior vena cava are normal in size.? ? PELVIS: Pelvic Organs:? Unremarkable.? ? Bladder:? Unremarkable.? ? Pelvic Nodes: No enlarged lymph nodes.? Miscellaneous: No inguinal hernias are seen. ? ? ? Bones:? Visualized osseous structures demonstrate no suspicious focal lesions. ? IMPRESSION:? ? 1. No CT evidence of acute pancreatitis.? No peripancreatic fluid collections. ? 2. Diffuse heterogeneous enhancement of the liver.? No definite evidence of corresponding steatosis on the recent MRI.? The findings are nonspecific and may reflect an acute hepatitis.? Recommend correlation clinically. ? 3. Mild central intrahepatic biliary ductal dilatation redemonstrated without dilatation of the common bile duct.? The findings suggest sequelae of prior cholecystectomy.? ? ? Dictated by: Sj Rankin M.D. on 10/31/2022 at 23:34 ? ? ECG Data Interpretation: Normal sinus rhythm rate 63 OK interval 170 QRS [address] changes no T- wave inversions MDM Narrative Medical decision making narrative: 67-year-old male history of pancreatitis insulin-dependent diabetes presents today with nausea vomiting diarrhea. Symptoms are consistent with gastroenteritis. No evidence of DKA or pancreatitis. CT does not show any e vidence of pancreatitis of obstruction or cause for nausea vomiting diarrhea. He has no fever or leukocytosis. He is given 2 L of fluids and Reglan which does seem to help. He has had all of the other anti nausea medications home. QTC is not significantly prolonged. Discussed oral rehydration technique. Discharge Plan Departure Patient Disposition: Home Clinical Impression: Gastroenteritis Instructions: DI for Viral Gastroenteritis -- Adult Activity Restrictions/Additional Instructions: *You have been diagnosed with gastroenteritis *What to do: Increase fluid intake as tolerated recommend Gatorade or Gatorade like product. *Continue to take medications as directed Reglan 10 mg every 6-8 hours if needed for nausea or vomiting--> SENT TO [facility] I do not recommend taking all of your anti nausea medications together because it can cause heart abnormalities. You can take 2 together if you have no response from the 2 different anti nausea medications then return to ED *Follow up with your primary care provider in 2-3 days or call [phone] *Return to ER if you should have persistent nausea vomiting, worsening diarrhea not tolerating fluids dizziness lightheadedness passing or any new, worsening or concerning symptoms Prescriptions: New metoclopramide HCl [Reglan] 10 mg tablet 10 mg PO Q6H PRN (Reason: nausea and vomiting) Qty: 20 0RF No Action clopidogrel [Plavix] 75 mg Tablet 75 mg PO QAM Qty: 0 nitroglycerin 0.3 mg tablet, sublingual See Rx Instructions .ROUTE .COMPLEX Qty: 100 0RF Dose Instruction: PLACE 1 TABLET (0.3 MG TOTAL) UNDER THE TONGUE EVERY 5 (FIVE) MINUTES NEEDED FOR CHEST PAIN FOR UP TO 7 DAYS MAY REPEAT EVERY 5 MINUTES UP TO 3 DOSES[address] Rx [address]ructions: PL[address] 1 TABLET (0.3 MG TOTAL) UNDER THE TONGUE EVERY 5 (FIVE) MINUTES NEEDED FOR CHEST PAIN FOR UP TO 7 DAYS MAY REPEAT EVERY 5 MINUTES UP TO 3 DOSES. amiodarone 200 mg tablet 200 mg PO DAILY Qty: 90 3RF Rx Instructions: Take in evening methylphenidate HCl 20 mg tablet 20 mg PO TID Qty: 90 0RF insulin lispro [Humalog U-100 Insulin] 100 unit/mL solution See Rx Instructions SUBCUT USEASDIRECTD Rx Instructions: 2-4 sliding scale SUBCUT use as directed; gentamicin 0.3 % drops 1 drp EYE-BOTH TID PRN (Reason: Blepharitis) Qty: 5 12RF Creon 24,000-76,000 -120,000 unit capsule,delayed release(DR/EC) 1 cap PO QID Qty: 120 12RF Rx Instructions: administer with meals and/or snacks prn sliding scale. 1 capsule for every 600 calories metoprolol tartrate 25 mg tablet 12.5 mg PO BID morphine [MS Contin] 15 mg tablet extended release 15 mg PO .HS methylphenidate HCl 20 mg tablet 20 mg PO TID Qty: 90 0RF methylphenidate HCl 20 mg tablet 20 mg PO TID Qty: 90 0RF promethazine 25 mg suppository 25 mg OK Q6H PRN (Reason: Nausea) duloxetine [Cymbalta] 60 mg capsule,delayed release(DR/EC) 60 mg PO QAM Combivent Respimat 20-100 mcg/actuation mist 1 puff inhalation Q4H PRN (Reason: wheezing) acetaminophen [Pain Relief (acetaminophen)] 325 MG tablet 500 mg PO Q4HP PRN (Reason: Pain, Mild) dabigatran etexilate [Pradaxa] 150 mg Capsule 150 mg PO BID pravastatin 80 mg Tablet 80 mg PO BEDTIME Qty: 0 Rx Instructions: 1 tablet daily HS ondansetron 8 mg tablet,disintegrating 4 mg PO PRN PRN (Reason: nausea/vomiting) trazodone 50 mg Tablet 50 mg PO BEDTIME PRN (Reason: insomnia) Qty: 30 0RF Rx Instructions: can take 1/2 tab (25mg) if 50 is too strong lisinopril 2.5 mg Tablet 2.5 mg PO QAM diphenhydramine HCl 12.5 mg/5 mL elixir 12.5 mg PO Q6H PRN (Reason: nausea and vomiting) Qty: 500 0RF azelastine inhaler 2 spray intranasal PRN PRN (Reason: Bronchospasm) sennosides [senna] 8.6 mg Tablet 17.2 mg PO BEDTIME Qty: 30 0RF oxycodone 7.5 mg tablet, oral only 7.5 mg PO Q4H PRN (Reason: pain) Qty: 30 0RF Referrals: Eric Huang MD [Primary Care Provider] - Stand Alone Forms: Patient Portal/API
--- NOTE | 2022-10-31 22:10 | DI.CT.S_ITS ---
PROCEDURE: CT ABDOMEN PELVIS W CON INDICATIONS: hx pancreatitis with vomiting TECHNIQUE: After the administration of IV contrast, axial sections were acquired from the lung bases to the pubic symphysis. Coronal and sagittal reformats were performed. For radiation dose reduction, the following was used: automated exposure control, adjustment of mA and/or kV according to patient size. COMPARISON: [facility]erged With [facility], MR, MR ABDOMEN PELVIS WWO CON, 10/26/2022, 7:51. Merged With [facility], CT, CT ABDOMEN PELVIS WO CON, 04/28/2022, 17:52. Merged With [facility], CT, CT ABDOMEN PELVIS W CON, 06/02/2021, 14:49. FINDINGS: Image quality: Excellent. Lung bases: Unremarkable. Heart: Heart is normal in size. ABDOMEN: Liver: There is diffuse heterogeneous enhancement of the liver. Gallbladder: Surgically absent. Biliary ducts: There is mild central intrahepatic biliary ductal dilatation which may reflect sequelae of prior cholecystectomy. Common bile duct is normal in caliber. Pancreas: No peripancreatic fat stranding or fluid. No peripancreatic fluid collections. No pancreatic duct dilatation or discrete pancreatic mass. Spleen: Normal in size. Adrenal Glands: No adrenal nodules. Kidneys and Ureters: No hydronephrosis. Stomach and Bowel: Stomach, small bowel loops, and colon are normal in caliber and wall thickness. The appendix is normal. There is colonic diverticulosis without acute diverticulitis. Peritoneum: No abnormal intraperitoneal fluid. No free air. Ventral Wall: No hernia. Abdominal Nodes: No retroperitoneal or mesenteric adenopathy by size criteria. Vessels: Aorta and inferior vena cava are normal in size. PELVIS: Pelvic Organs: Unremarkable. Bladder: Unremarkable. Pelvic Nodes: No enlarged lymph nodes. Miscellaneous: No inguinal hernias are seen. Bones: Visualized osseous structures demonstrate no suspicious focal lesions. IMPRESSION: 1. No CT evidence of acute pancreatitis. No peripancreatic fluid collections. 2. Diffuse heterogeneous enhancement of the liver. No definite evidence of corresponding steatosis on the recent MRI. The findings are nonspecific and may reflect an acute hepatitis. Recommend correlation clinically. 3. Mild central intrahepatic biliary ductal dilatation redemonstrated without dilatation of the common bile duct. The findings suggest sequelae of prior cholecystectomy. Dictated by: Sj Rankin M.D. on 10/31/2022 at 23:34 Approved by: Sj Rankin M.D. on 10/31/2022 at 23:41
[2022-10-31] MEDS: diphenhydrAMINE 50 MG/ML VIAL 25 MG IV (22:27)
[2022-10-31] MEDS: METOCLOPRAMIDE 10 MG/2 ML INJ IV (22:27)
[2022-10-31] MEDS: methylPREDNISolone 125 MG/2 ML VIAL IV (22:27)
[2022-10-31] MEDS: SODIUM CHLORIDE 0.9% 1,000 ML 1000 ML IV (22:27)
[2022-10-31] MEDS: HYDROMORPHONE 1 MG INJ IV (22:28)
[2022-10-31 23:10] LABS: Creatine Kinase 170 U/L (55-170)
[2022-10-31 23:22] LABS: Troponin I < 0.012 ng/mL (0.01-0.034)
== END 2022-11-01 00:40 | disposition home or self-care (01) ==
PROVIDERS: Emergency Provider Emergency Medicine; Family Provider Nurse Practitioner Family; PCP Family Medicine
DX: K52.9 Noninfective gastroenteritis and colitis, unspecified (principal); R11.2 Nausea with vomiting, unspecified; Z79.899 Other long term (current) drug therapy
CPT/HCPCS: 36415; 74177; 80053; 81003; 82550; 83690; 84484; 85025; 93005; 93010; 96361; 96374; 96375; 99284; J1170; J1200; J2765; J2930; Q9967

== ENCOUNTER → 2023-01-04 | Outpatient (CLI) | payer OTHER, SELFPAY ==
[2022-04-25 14:13] VITALS: BMI 23.6
== END ==
PROVIDERS: Family Provider Nurse Practitioner Family; PCP Family Medicine; Referring Provider Family Medicine; Visit Provider Family Medicine
DX: Z23 Encounter for immunization (principal)
CPT/HCPCS: 90471; 90686

== ENCOUNTER 2023-03-05 18:47 | Emergency (ER) | payer OTHER, SELFPAY ==
[2022-04-25 14:13] VITALS: BMI 23.6
[2023-03-05] VITALS (13 sets, daily range): BP systolic 128–161; BP diastolic 60–82; PULSE 77–89; RESP 16–25; TEMP 36.3; O2SAT 92–98; BMI 25.8
--- NOTE | 2023-03-05 18:52 | DI.RAD.S_ITS ---
PROCEDURE: XR CHEST 1V INDICATIONS: chest pain TECHNIQUE: One view of the chest was acquired. COMPARISON: [facility], CR, XR CHEST 1V, 04/25/2022, 12:23. FINDINGS: Surgical changes and devices: None. Lungs and pleura: Lungs are clear. No pleural effusions or pneumothorax. Mediastinum: Mildly tortuous thoracic aorta is seen. Heart size is normal. Bones and chest wall: No suspicious bony lesions. Overlying soft tissues appear unremarkable. IMPRESSION: No acute cardiopulmonary pathology. Dictated by: Savage Early M.D. on 03/05/2023 at 19:42 Approved by: Savage Early M.D. on 03/05/2023 at 19:43
[2023-03-05] MEDS: ASPIRIN 81 MG CHEW TAB 324 MG PO (19:11)
[2023-03-05] MEDS: DROPERIDOL 5 MG/2 ML VIAL 1.25 MG IV (19:12)
[2023-03-05 19:38] LABS: INR 1.1 (0.9-1.3); Prothrombin Time 12.5 SECONDS (9.4-12.5)
[2023-03-05 19:41] LABS: PTT Partial Thromboplastin Tim 30 SECONDS (25.1-36.5)
[2023-03-05 19:44] LABS: Alanine Aminotransferase 24 IU/L (<50); Albumin 4.5 g/dL (3.5-5.0); Albumin Globulin Ratio 1.6 (1.0-2.8); Alkaline Phosphatase 96 U/L (38-126); Aspartate Aminotransferase 26 IU/L (17-59); Bilirubin Total 0.5 mg/dL (0.2-1.3); Blood Urea Nitrogen 14 mg/dL (9-20); Carbon Dioxide 30 mmol/L (22-32); Chloride 98 mmol/L (98-107); Creatine Kinase 107 U/L (55-170); Estimated Glomerular Filt Rate > 60 mL/min (>60); Globulin 2.8 g/dL (1.7-4.1); Glucose 199 mg/dL (80-110); Lipase 837 U/L (23-300); Magnesium 1.8 mg/dL (1.6-2.3); Potassium 4.2 mmol/L (3.4-5.1); Sodium 136 mmol/L (137-145); Total Protein 7.3 g/dL (6.3-8.2)
[2023-03-05 19:47] LABS: Add Manual Diff / Slide Review NO; Basophils Absolute Auto 100 /uL (0-100); Eosinophils Absolute Auto 300 /uL (0-450); Eosinophils Percent Auto 3.5 % (2-4); Hemoglobin 11.8 g/dL (13.5-17.5); Lymphocytes Absolute Auto 1400 /uL (1100-4500); Lymphocytes Percent Auto 19.8 % (25-40); Mean Corpuscular HGB Conc 32.9 % (30-36); Mean Corpuscular Hemoglobin 26.5 PG (26-34); Mean Corpuscular Volume 80.8 fL (80-100); Monocytes Absolute Auto 600 /uL (0-900); Monocytes Percent Auto 8.2 % (3-14); Neutrophils Absolute Auto 4900 /uL (1500-7000); Neutrophils Percent Auto 67.5 % (50-75); Platelet Count 342 X10^3/uL (150-400); Red Blood Cell Count 4.45 X10^6/uL (4.5-5.9); Red Cell Distribution Width 15.9 % (11.6-14.8); White Blood Cell Count 7.2 X10^3/uL (4.5-11.0)
[2023-03-05 19:48] LABS: HEMOLYSIS 60 (0-50)
--- NOTE | 2023-03-05 20:32 | ED.CHESTPAIN ---
HPI - Chest Pain General Chief Complaint: Chest Pain Stated Complaint: chest pain Time Seen by Provider: 03/05/23 19:03 Source: patient Mode of arrival: Ambulatory Limitations: no limitations History of Present Illness HPI narrative: 68-year-old man with a history of peripheral vascular disease, coronary artery disease and pancreatitis with a chief complaint today of chest pain. He says that he is had chest pain throughout most of the day today. At its worst it is 6/10 presently 3/10. It is midline and associated with shortness of breath nausea he is not had a fever it is not exacerbated by exertion. He has not been vomiting. He says that he chronically has epigastric abdominal pain from pancreatitis he does not use alcohol reports that his pancreatitis related to agent orange exposure. He has known coronary disease and [facility] He says it 3 days ago he had a stent to his LAD. This was an elective procedure. Records were obtained from the [facility], obtained is only a medication list and an EKG, significant EKG from 02 March [address] lateral ST segment depression. Related Data Home Medications Medication Instructions Recorded Confirmed clopidogrel 75 mg tablet (Plavix) 75 mg PO QAM ##0 04/15/08 03/05/23 acetaminophen 325 mg tablet (Pain 500 mg PO Q4HP PRN Pain, Mild 09/25/17 01/19/23 Relief (acetaminophen)) dabigatran etexilate 150 mg 150 mg PO BID 03/24/18 03/05/23 capsule (Pradaxa) lisinopril 2.5 mg tablet 2.5 mg PO QAM blood pressure 04/28/19 01/19/23 insulin lispro 100 unit/mL See Rx Instructions SUBCUT 03/15/20 01/19/23 subcutaneous solution (Humalog USEASDIRECTD U-100 Insulin) promethazine 25 mg rectal 25 mg SD Q6H PRN Nausea 06/17/20 01/19/23 suppository azelastine 2 spray intranasal PRN PRN 05/30/21 01/19/23 Bronchospasm duloxetine 60 mg capsule,delayed 60 mg PO QAM 11/01/21 01/19/23 release (Cymbalta) ipratropium 20 mcg-albuterol 100 1 puff inhalation Q4H PRN wheezing 11/01/21 01/19/23 mcg/actuation mist for inhalation (Combivent Respimat) ondansetron 8 mg disintegrating 4 mg PO PRN PRN nausea/vomiting 02/25/22 01/19/23 tablet morphine 15 mg tablet,extended 15 mg PO .HS 06/06/22 01/19/23 release (MS Contin) amlodipine 5 mg tablet 5 mg PO DAILY 01/19/23 01/19/23 metoprolol tartrate 25 mg tablet 25 mg PO BID 01/19/23 01/19/23 rosuvastatin 10 mg tablet 10 mg PO DAILY 01/19/23 01/19/23 Previous Rx's Medication Instructions Recorded gentamicin 0.3 % eye drops 1 drp EYE-BOTH TID PRN Blepharitis 03/15/20 #5 mL slxybg-[id number] 1 cap PO QID #120 caps 03/15/20 24,000-76,000-120,000 unit capsule,delayed rel (Creon) diphenhydramine HCl 12.5 mg/5 mL 12.5 mg (5 mL) PO Q6H PRN nausea 03/15/21 oral elixir and vomiting #500 mL trazodone 50 mg tablet 50 mg PO BEDTIME PRN insomnia #30 03/03/22 tabs oxycodone 7.5 mg tablet,oral ONLY 7.5 mg PO Q4H PRN pain #30 ea 04/18/22 (not for feeding tubes) sennosides 8.6 mg tablet (senna) 17.2 mg (2 x 8.6 mg) PO BEDTIME 04/18/22 #30 tabs nitroglycerin 0.3 mg sublingual See Rx Instructions .Route 07/27/22 tablet .COMPLEX #100 ea methylphenidate HCl 20 mg tablet 20 mg PO TID #90 ea 01/19/23 methylphenidate HCl 20 mg tablet 20 mg PO TID #90 tabs 01/19/23 methylphenidate HCl 20 mg tablet 20 mg PO TID #90 tabs 01/19/23 Allergies Allergy/AdvReac Type Severity Reaction Status Date / Time Iodine and Iodide Containing Allergy Severe Anaphylaxis Verified 03/05/23 18:52 Produc [IODINE AND IODIDE CONTAINING PRODUC] Sulfa (Sulfonamide Allergy Severe Anaphylaxis Verified 03/05/23 18:52 Antibiotics) [SULFA (SULFONAMIDE ANTIBIOTICS)] gabapentin AdvReac Intermediate Dizziness Verified 03/05/23 18:52 Bwbqioi-[id number]-HyH Reductase AdvReac Intermediate Verified 03/05/23 18:52 Inhibitor metformin AdvReac Mild Verified 03/05/23 18:52 Patient History Medical History (Updated 03/05/23 @ 23:56 by Jeronimo Root MD) Chronic low back pain Coronary artery disease Thyroid nodule Diabetes mellitus Atrial flutter with rapid ventricular response Sepsis Claudication in peripheral vascular disease History of cardioversion (03/07/21) Campylobacter enteritis Exocrine pancreatic insufficiency Acute dehydration Enteritis, enteropathogenic E. coli Paroxysmal atrial fibrillation Psoriasis Narcolepsy GERD (gastroesophageal reflux disease) Hyperlipidemia HTN (hypertension) Insulin dependent diabetes mellitus with complications Peripheral vascular disease Gastroenteritis Pancreatitis Atrial flutter with rapid ventricular response Surgical History History of epididymectomy Hx of biopsy History of femoropopliteal bypass H/O exploratory laparotomy Family History Father Colon cancer Mother Narcolepsy Grandmother Narcolepsy Social History household members: spouse Smoking Status: Former smoker alcohol intake: former Smoking Status: Former smoker alcohol intake frequency: holidays/special occasions only Substance Use Type: marijuana Exam Initial Vital Signs Initial Vital Signs: Vital Signs Temperature 97.3 F L 03/05/23 18:48 Pulse Rate 89 03/05/23 18:48 Respiratory Rate 22 03/05/23 18:48 Blood Pressure 161/81 H 03/05/23 18:48 Pulse Oximetry 98 03/05/23 18:48 Oxygen Delivery Method Room Air 03/05/23 18:48 Const General: No acute distress HENMT Head: normocephalic and atraumatic Neck Neck: normal visual inspection, supple and No JVD Resp Effort & Inspection: normal respiratory effort Auscultation: clear to auscultation bilaterally Cardio Rate: regular rate Rhythm: regular rhythm Heart Sounds: S1 normal, S2 normal and no murmurs GI Palpation: soft and No tender Skin General: no rashes or lesions noted Neuro General: patient alert and patient oriented x3 Psych Appearance: grossly normal and well kempt Course Orders Ordered: ED Orders 03/05/23 18:52 XR chest 1V Stat 03/05/23 19:13 Complete Blood Count AUTO DIFF Stat Comprehensive Metabolic Panel Stat Lipase Stat Magnesium Stat PTT Partial Thromboplastin Shravan Stat Prothrombin Time INR Stat Troponin & CK Cardiac Panel Stat 03/05/23 21:15 Trop I [Troponin I] Stat EKG-12 Lead Stat 03/05/23 21:55 Covid-19 + FLU A/B + RSV - PCR Stat Heparin Sodium/Dextrose (Heparin Drip) 25,000 unit in 500 mls @ 19.595 mls/hr IV CONT KATHY; Protocol Last Admin: 03/05/23 21:45 Dose: 12 units/kg/hr, 19.595 mls/hr Documented By: BERTHA Co-signed By: SB Discontinued Medications Aspirin (Aspirin 81 Mg Chew Tab) 324 mg PO NOW ONE Stop: 03/05/23 18:53 Last Admin: 03/05/23 19:11 Dose: 324 mg Documented By: BERTHA Droperidol (Droperidol 5 Mg/2 Ml Vial) 1.25 mg IV NOW ONE Stop: 03/05/23 19:08 Last Admin: 03/05/23 19:12 Dose: 1.25 mg Documented By: BERTHA Heparin Sodium (Porcine) (Heparin 5,000 Unit/Ml Vial) 4,900 unit 60 unit/kg (4900 unit) IV NOW ONE Stop: 03/05/23 21:34 Last Admin: 03/05/23 21:44 Dose: 4,900 unit Documented By: BERTHA Hydromorphone HCl (Hydromorphone 0.5 Mg Inj) 0.5 mg IV NOW ONE Stop: 03/05/23 20:32 Last Admin: 03/05/23 20:47 Dose: 0.5 mg Documented By: BERTHA Nitroglycerin (Nitroglycerin Oint 1 Inch/Gm Oint...G.) 1 inch TOP NOW ONE Stop: 03/05/23 20:32 Last Admin: 03/05/23 20:46 Dose: 1 inch Documented By: BERTHA Reevaluation(s) Reevaluation #1: After sublingual nitro, chest pain is improved but not fully resolve triple order opiates and nitro paste. Consultations Consultation #1: D/W Dr Solorio, accepts transfer to [facility] Vital Signs Vital signs: Vital Signs - 8 hr 03/05/23 18:48 03/05/23 19:15 03/05/23 19:17 Temperature 97.3 F L Pulse Rate 89 88 86 Respiratory Rate 22 25 H Blood Pressure 161/81 H Pulse Oximetry 98 97 97 Oxygen Delivery Method Room Air 03/05/23 19:17 03/05/23 19:30 03/05/23 19:30 Temperature Pulse Rate 82 Respiratory Rate 17 Blood Pressure 131/60 136/68 Pulse Oximetry 94 Oxygen Delivery Method 03/05/23 20:00 03/05/23 20:00 03/05/23 20:30 Temperature Pulse Rate 83 80 Respiratory Rate 17 18 Blood Pressure 129/65 Pulse Oximetry 92 95 Oxygen Delivery Method 03/05/23 20:30 03/05/23 20:46 03/05/23 20:46 Temperature Pulse Rate 77 78 Respiratory Rate 18 Blood Pressure 138/71 137/71 Pulse Oximetry 96 Oxygen Delivery Method 03/05/23 20:46 03/05/23 21:00 03/05/23 21:00 Temperature Pulse Rate 77 Respiratory Rate 16 Blood Pressure 137/71 139/71 Pulse Oximetry 95 Oxygen Delivery Method Room Air 03/05/23 21:30 03/05/23 21:30 03/05/23 22:00 Temperature Pulse Rate 87 80 Respiratory Rate 19 16 Blood Pressure 147/82 H Pulse Oximetry 97 96 Oxygen Delivery Method 03/05/23 22:00 03/05/23 22:30 03/05/23 22:30 Temperature Pulse Rate 81 Respiratory Rate 16 Blood Pressure 128/76 131/72 Pulse Oximetry 95 Oxygen Delivery Method 03/05/23 23:00 03/05/23 23:00 03/05/23 23:30 Temperature Pulse Rate 78 Respiratory Rate 18 Blood Pressure 131/71 141/77 H Pulse Oximetry 96 Oxygen Delivery Method 03/05/23 23:30 Temperature Pulse Rate 77 Respiratory Rate 17 Blood Pressure Pulse Oximetry 95 Oxygen Delivery Method MDM - Chest Pain Medical Records Data Medical records narrative: Reviewed medication list and baseline EKG from the [facility]. Lab Data Lab results narrative: CBC with diff and CMP are unremarkable, troponins are elevated and stable on serial troponins, lipase is also elevated patient reports he has chronic symptoms of pancreatitis 03/05/23 19:13 03/05/23 19:13 Labs: Lab Results 03/05/23 03/05/23 03/05/23 Range/Units 19:13 21:15 21:55 WBC 7.2 (4.5-11.0) X10^3/uL RBC 4.45 L (4.5-5.9) X10^6/uL Hgb 11.8 L (13.5-17.5) g/dL Hct 36.0 L (41-53) % MCV 80.8 (80-100) fL MCH 26.5 (26-34) PG MCHC 32.9 (30-36) % RDW 15.9 H (11.6-14.8) % Plt Count 342 (150-400) X10^3/uL Neut % (Auto) 67.5 (50-75) % Lymph % (Auto) 19.8 L (25-40) % [place] % (Auto) 8.2 (3-14) % Eos % (Auto) 3.5 (2-4) % Baso % (Auto) 1.0 (0-2) % Neut # (Auto) 4900 (5201-2153) /uL Lymph # (Auto) 1400 (3045-7976) /uL [place] # (Auto) 600 (0-900) /uL Eos # (Auto) 300 (0-450) /uL Baso # (Auto) 100 (0-100) /uL PT 12.5 (9.4-12.5) SECONDS INR 1.1 (0.9-1.3) APTT 30 (25.1-36.5) SECONDS Sodium 136 L (137-145) mmol/L Potassium 4.2 (3.4-5.1) mmol/L Chloride 98 (98-107) mmol/L Carbon Dioxide 30 (22-32) mmol/L BUN 14 (9-20) mg/dL Creatinine 0.61 L (0.66-1.25) mg/dL Estimated GFR > 60 (>60) mL/min BUN/Creatinine Ratio 23.0 H (6-22) Glucose 199 H (80-110) mg/dL Calcium 9.0 (8.4-10.2) mg/dL Magnesium 1.8 (1.6-2.3) mg/dL Total Bilirubin 0.5 (0.2-1.3) mg/dL AST 26 (17-59) IU/L ALT 24 (<50) IU/L Alkaline Phosphatase 96 (38-126) U/L Total Creatine Kinase 107 (55-170) U/L Troponin I 0.060 H 0.069 H (0.01-0.034) ng/mL Total Protein 7.3 (6.3-8.2) g/dL Albumin 4.5 (3.5-5.0) g/dL Globulin 2.8 (1.7-4.1) g/dL Albumin/Globulin Ratio 1.6 (1.0-2.8) Lipase 837 H (23-300) U/L SARS-CoV-2 (PCR) Negative (Negative) Influenza A (RT-PCR) Flu a negative (NEGATIVE) Influenza B (RT-PCR) Flu b negative (NEGATIVE) RSV (PCR) Negative (Negative) Imaging Data Chest x-ray: My Impression: Independent review of chest x-ray, no acute disease Radiologist's Impression: IMPRESSION: No acute cardiopulmonary pathology. Dictated by: Savage Early M.D. on 03/05/2023 at 19:42 Approved by: Savage Early M.D. on 03/05/2023 at 19:43 ECG Data Interpretation: EKG shows sinus rhythm at 84. There is lateral ST segment depression that was not present on a baseline EKG received [facility] on March 02 of this year. Subsequent EKG at 9:[address] p[address] shows resolution of ST depression in V4 and V5 MDM Narrative Medical decision making narrative: 68-year-old male with known coronary artery disease who had a cardiac stent at the [facility] quite recently. He presents today with chest pain and EKG changes, chest pain is responsive to nitroglycerin, EKG changes resolve on repeat EKG after nitroglycerin. His troponin is elevated. Presentation is consistent with a non ST elevation [place]. he also has an elevated lipase and some upper abdominal pain which is chronic and related to pancreatitis. His cardiac care has previously been at the [facility]. given he was just down there and had a stent placed it was felt appropriate to transfer him back to that location for a higher level of care and continuity. Patient is in agreement with this plan. He is stable for transfer. In the emergency department he had topical nitrates applied and was started on a heparin drip. Discharge Plan Departure Patient Disposition: [facility] Clinical Impression: Acute non-ST elevation myocardial infarction (NSTEMI) Prescriptions: No Action clopidogrel [Plavix] 75 mg Tablet 75 mg PO QAM Qty: 0 nitroglycerin 0.3 mg tablet, sublingual See Rx Instructions .ROUTE .COMPLEX Qty: 100 0RF Dose Instruction: PLACE 1 TABLET (0.3 MG TOTAL) UNDER THE TONGUE EVERY 5 (FIVE) MINUTES NEEDED FOR CHEST PAIN FOR UP TO 7 DAYS MAY REPEAT EVERY 5 MINUTES UP TO 3 DOSES[address] Rx Instructions: PL[address] 1 TABLET (0.3 MG TOTAL) UNDER THE TONGUE EVERY 5 (FIVE) MINUTES NEEDED FOR CHEST PAIN FOR UP TO 7 DAYS MAY REPEAT EVERY 5 MINUTES UP TO 3 DOSES. insulin lispro [Humalog U-100 Insulin] 100 unit/mL solution See Rx Instructions SUBCUT USEASDIRECTD Rx Instructions: 2-4 sliding scale SUBCUT use as directed; gentamicin 0.3 % drops 1 drp EYE-BOTH TID PRN (Reason: Blepharitis) Qty: 5 12RF Creon 24,000-76,000 -120,000 unit capsule,delayed release(DR/EC) 1 cap PO QID Qty: 120 12RF Rx Instructions: administer with meals and/or snacks prn sliding scale. 1 capsule for every 600 calories morphine [MS Contin] 15 mg tablet extended release 15 mg PO .HS metoprolol tartrate 25 mg tablet 25 mg PO BID rosuvastatin 10 mg tablet 10 mg PO DAILY amlodipine 5 mg tablet 5 mg PO DAILY methylphenidate HCl 20 mg tablet 20 mg PO TID Qty: 90 0RF methylphenidate HCl 20 mg tablet 20 mg PO TID Qty: 90 0RF methylphenidate HCl 20 mg tablet 20 mg PO TID Qty: 90 0RF promethazine 25 mg suppository 25 mg SD Q6H PRN (Reason: Nausea) duloxetine [Cymbalta] 60 mg capsule,delayed release(DR/EC) 60 mg PO QAM Combivent Respimat 20-100 mcg/actuation mist 1 puff inhalation Q4H PRN (Reason: wheezing) acetaminophen [Pain Relief (acetaminophen)] 325 MG tablet 500 mg PO Q4HP PRN (Reason: Pain, Mild) dabigatran etexilate [Pradaxa] 150 mg Capsule 150 mg PO BID ondansetron 8 mg tablet,disintegrating 4 mg PO PRN PRN (Reason: nausea/vomiting) trazodone 50 mg Tablet 50 mg PO BEDTIME PRN (Reason: insomnia) Qty: 30 0RF Rx Instructions: can take 1/2 tab (25mg) if 50 is too strong lisinopril 2.5 mg Tablet 2.5 mg PO QAM diphenhydramine HCl 12.5 mg/5 mL elixir 12.5 mg PO Q6H PRN (Reason: nausea and vomiting) Qty: 500 0RF azelastine inhaler 2 spray intranasal PRN PRN (Reason: Bronchospasm) sennosides [senna] 8.6 mg Tablet 17.2 mg PO BEDTIME Qty: 30 0RF oxycodone 7.5 mg tablet, oral only 7.5 mg PO Q4H PRN (Reason: pain) Qty: 30 0RF Referrals: Eric Huang MD [Primary Care Provider] -
[2023-03-05] MEDS: NITROGLYCERIN OINT 1 INCH/GM OINT...G. TOP (20:46)
[2023-03-05] MEDS: HYDROMORPHONE 0.5 MG INJ IV (20:47)
[2023-03-05 21:41] LABS: Troponin I 0.069 ng/mL (0.01-0.034)
[2023-03-05] MEDS: HEPARIN 5,000 UNIT/ML VIAL 4900 UNIT IV (21:44)
[2023-03-05] MEDS: HEPARIN DRIP 25,000 UNIT/500 ML IV.SOLN 19.595 UNIT IV (21:45)
--- NOTE | 2023-03-05 22:06 | PC.NURSE ---
Shravan RN Mortgage Loan Officer [facility] in [place] phone [phone] FAX: [phone]. [address]
[2023-03-05 22:40] LABS: Influenza A - CEPHEID Flu A NEGATIVE (NEGATIVE); Influenza B - CEPHEID Flu B NEGATIVE (NEGATIVE); Respiratory Syncytial Virus Negative (Negative)
[2023-03-05 22:41] LABS: COVID-19 CEPHEID 4-PLEX PCR Negative (Negative)
[2023-03-06] VITALS: BP 131/76; PULSE 73; RESP 17; O2SAT 96
[2023-03-06 00:30] VITALS: BP 144/79; PULSE 72; RESP 16; O2SAT 98
[2023-03-06] MEDS: HYDROMORPHONE 1 MG INJ IV (00:39)
== END 2023-03-06 00:41 | disposition short-term general hospital (02) ==
PROVIDERS: Emergency Provider Emergency Medicine; Family Provider Nurse Practitioner Family; PCP Family Medicine
DX: I21.4 Non-ST elevation (NSTEMI) myocardial infarction (principal); I48.0 Paroxysmal atrial fibrillation; I10 Essential (primary) hypertension; I25.10 Atherosclerotic heart disease of native coronary artery without angina pectoris; E11.51 Type 2 diabetes mellitus with diabetic peripheral angiopathy without gangrene; Z79.4 Long term (current) use of insulin; Z87.891 Personal history of nicotine dependence
CPT/HCPCS: 0241U; 36415; 71045; 80053; 82550; 83690; 83735; 84484; 85025; 85610; 85730; 93005; 93010; 99285; J1170; J1644; J1790

== ENCOUNTER 2023-05-23 17:26 | Emergency (ER) | payer OTHER, SELFPAY ==
[2022-04-25 14:13] VITALS: BMI 23.6
[2023-05-23] VITALS (14 sets, daily range): BP systolic 115–150; BP diastolic 63–77; PULSE 73–89; RESP 15–30; TEMP 36.6; O2SAT 92–98; BMI 26.5
--- NOTE | 2023-05-23 17:34 | DI.RAD.S_ITS ---
PROCEDURE: XR CHEST 1V INDICATIONS: chest pain TECHNIQUE: One view of the chest was acquired. COMPARISON: [facility], CR, XR CHEST 1V, 03/05/2023, 19:15. [facility], CR, XR CHEST 1V, 04/25/2022, 12:23. FINDINGS: Surgical changes and devices: None. Lungs and pleura: Lungs are clear. No pleural effusions or pneumothorax. Mediastinum: Mediastinal contours appear normal. Heart size is normal. Bones and chest wall: No suspicious bony lesions. Overlying soft tissues appear unremarkable. IMPRESSION: No acute cardiopulmonary abnormality is seen. Dictated by: Imtiaz Hammer M.D. on 05/23/2023 at 18:17 Approved by: Imtiaz Hammer M.D. on 05/23/2023 at 18:17
[2023-05-23 18:31] LABS: Add Manual Diff / Slide Review NO; Basophils Absolute Auto 100 /uL (0-100); Basophils Percent Auto 0.9 % (0-2); Eosinophils Absolute Auto 900 /uL (0-450); Eosinophils Percent Auto 10.5 % (2-4); Hematocrit 34.7 % (41-53); Hemoglobin 11.2 g/dL (13.5-17.5); Lymphocytes Absolute Auto 1600 /uL (1100-4500); Lymphocytes Percent Auto 19.3 % (25-40); Mean Corpuscular HGB Conc 32.4 % (30-36); Mean Corpuscular Hemoglobin 25.4 PG (26-34); Mean Corpuscular Volume 78.4 fL (80-100); Monocytes Absolute Auto 800 /uL (0-900); Monocytes Percent Auto 9.2 % (3-14); Neutrophils Absolute Auto 5000 /uL (1500-7000); Neutrophils Percent Auto 60.1 % (50-75); Platelet Count 279 X10^3/uL (150-400); Red Blood Cell Count 4.42 X10^6/uL (4.5-5.9); Red Cell Distribution Width 15.8 % (11.6-14.8); White Blood Cell Count 8.3 X10^3/uL (4.5-11.0)
[2023-05-23 18:39] LABS: INR 1.1 (0.9-1.3); Prothrombin Time 12.3 SECONDS (9.4-12.5)
[2023-05-23 18:42] LABS: Alanine Aminotransferase 20 IU/L (<50); Albumin 4.5 g/dL (3.5-5.0); Albumin Globulin Ratio 1.7 (1.0-2.8); Alkaline Phosphatase 87 U/L (38-126); Aspartate Aminotransferase 25 IU/L (17-59); BUN Creatinine Ratio 11.7 (6-22); Bilirubin Total 0.4 mg/dL (0.2-1.3); Blood Urea Nitrogen 9 mg/dL (9-20); Calcium 8.9 mg/dL (8.4-10.2); Carbon Dioxide 31 mmol/L (22-32); Chloride 103 mmol/L (98-107); Creatine Kinase 294 U/L (55-170); Estimated Glomerular Filt Rate > 60 mL/min (>60); Globulin 2.7 g/dL (1.7-4.1); Glucose 104 mg/dL (80-110); HEMOLYSIS < 15 (0-50); Lipase 71 U/L (23-300); Magnesium 1.6 mg/dL (1.6-2.3); PTT Partial Thromboplastin Tim 43 SECONDS (25.1-36.5); Potassium 4.1 mmol/L (3.4-5.1); Sodium 138 mmol/L (137-145); Total Protein 7.2 g/dL (6.3-8.2)
[2023-05-23] MEDS: ASPIRIN 81 MG CHEW TAB 324 MG PO (18:48)
[2023-05-23 18:54] LABS: NT-proBNP (BNP-Adult 18+) 786 pg/mL (<125); Troponin I < 0.012 ng/mL (0.01-0.034)
--- NOTE | 2023-05-23 19:50 | ED_ITS ---
HPI - General Adult General Chief complaint: Shortness of Breath/Dyspnea Stated complaint: SOB Time Seen by Provider: 05/23/23 18:02 Source: patient Mode of arrival: Ambulatory History of Present Illness HPI narrative: 60-year-old male. Does have a cardiac history. Also has a history of pancreatitis. Is here for evaluation of a persistent cough that he has had for weeks. He also states he is having shortness of breath. Chest discomfort that started earlier today. Also having episodes of feeling like his abdomen is distended. The distended abdomen seems to come and go. He was also having left-sided flank and back pain. Was diaphoretic in the ER. Feels like that he can hardly do anything without becoming short of breath. No urinary symptoms. Has issues with chronic constipation. Related Data Home Medications Medication Instructions Recorded Confirmed clopidogrel 75 mg tablet (Plavix) 75 mg PO QAM ##0 04/15/08 03/05/23 acetaminophen 325 mg tablet (Pain 500 mg PO Q4HP PRN Pain, Mild 09/25/17 01/19/23 Relief (acetaminophen)) dabigatran etexilate 150 mg 150 mg PO BID 03/24/18 03/05/23 capsule (Pradaxa) lisinopril 2.5 mg tablet 2.5 mg PO QAM blood pressure 04/28/19 01/19/23 insulin lispro 100 unit/mL See Rx Instructions SUBCUT 03/15/20 01/19/23 subcutaneous solution (Humalog USEASDIRECTD U-100 Insulin) promethazine 25 mg rectal 25 mg OH Q6H PRN Nausea 06/17/20 01/19/23 suppository azelastine 2 spray intranasal PRN PRN 05/30/21 01/19/23 Bronchospasm duloxetine 60 mg capsule,delayed 60 mg PO QAM 11/01/21 01/19/23 release (Cymbalta) ipratropium 20 mcg-albuterol 100 1 puff inhalation Q4H PRN wheezing 11/01/21 01/19/23 mcg/actuation mist for inhalation (Combivent Respimat) ondansetron 8 mg disintegrating 4 mg PO PRN PRN nausea/vomiting 02/25/22 01/19/23 tablet morphine 15 mg tablet,extended 15 mg PO .HS 06/06/22 01/19/23 release (MS Contin) amlodipine 5 mg tablet 5 mg PO DAILY 01/19/23 01/19/23 metoprolol tartrate 25 mg tablet 25 mg PO BID 01/19/23 01/19/23 rosuvastatin 10 mg tablet 10 mg PO DAILY 01/19/23 01/19/23 Previous Rx's Medication Instructions Recorded gentamicin 0.3 % eye drops 1 drp EYE-BOTH TID PRN Blepharitis 03/15/20 #5 mL [id number] 1 cap PO QID #120 caps 03/15/20 24,000-76,000-120,000 unit capsule,delayed rel (Creon) diphenhydramine HCl 12.5 mg/5 mL 12.5 mg (5 mL) PO Q6H PRN nausea 03/15/21 oral elixir and vomiting #500 mL trazodone 50 mg tablet 50 mg PO BEDTIME PRN insomnia #30 03/03/22 tabs oxycodone 7.5 mg tablet,oral ONLY 7.5 mg PO Q4H PRN pain #30 ea 04/18/22 (not for feeding tubes) sennosides 8.6 mg tablet (senna) 17.2 mg (2 x 8.6 mg) PO BEDTIME 04/18/22 #30 tabs nitroglycerin 0.3 mg sublingual See Rx Instructions .Route 07/27/22 tablet .COMPLEX #100 ea methylphenidate HCl 20 mg tablet 20 mg PO TID #90 ea 01/19/23 methylphenidate HCl 20 mg tablet 20 mg PO TID #90 tabs 04/13/23 methylphenidate HCl 10 mg tablet 20 mg (2 x 10 mg) PO TID #180 ea 05/11/23 Allergies Allergy/AdvReac Type Severity Reaction Status Date / Time Iodine and Iodide Containing Allergy Severe Anaphylaxis Verified 03/05/23 18:52 Produc [IODINE AND IODIDE CONTAINING PRODUC] Sulfa (Sulfonamide Allergy Severe Anaphylaxis Verified 03/05/23 18:52 Antibiotics) [SULFA (SULFONAMIDE ANTIBIOTICS)] gabapentin AdvReac Intermediate Dizziness Verified 03/05/23 18:52 [id number] Reductase AdvReac Intermediate Verified 03/05/23 18:52 Inhibitor metformin AdvReac Mild Verified 03/05/23 18:52 Review of Systems Review of Systems ROS Unobtainable: All systems reviewed & are unremarkable except as noted in HPI and below Patient History Medical History Chronic low back pain Coronary artery disease Thyroid nodule Diabetes mellitus Atrial flutter with rapid ventricular response Sepsis Claudication in peripheral vascular disease History of cardioversion (03/07/21) Campylobacter enteritis Exocrine pancreatic insufficiency Acute dehydration Enteritis, enteropathogenic E. coli Paroxysmal atrial fibrillation Psoriasis Narcolepsy GERD (gastroesophageal reflux disease) Hyperlipidemia HTN (hypertension) Insulin dependent diabetes mellitus with complications Peripheral vascular disease Gastroenteritis Pancreatitis Atrial flutter with rapid ventricular response Surgical History History of epididymectomy Hx of biopsy History of femoropopliteal bypass H/O exploratory laparotomy Family History Father Colon cancer Mother Narcolepsy Grandmother Narcolepsy Social History household members: spouse Smoking Status: Former smoker alcohol intake: former Smoking Status: Former smoker alcohol intake frequency: holidays/special occasions only Substance Use Type: marijuana Exam Initial Vital Signs Initial Vital Signs: Vital Signs Temperature 97.8 F 05/23/23 17:31 Pulse Rate 85 05/23/23 17:31 Respiratory Rate 26 H 05/23/23 17:31 Blood Pressure 121/69 05/23/23 17:31 Pulse Oximetry 97 05/23/23 17:31 Oxygen Delivery Method Room Air 05/23/23 17:31 Const General: cooperative HENMT Head: normal to inspection and normocephalic Resp Effort & Inspection: normal respiratory effort Auscultation: clear to auscultation bilaterally Cardio Rate: regular rate Rhythm: regular rhythm GI Inspection: distended Palpation: soft, No guarding and tender Neuro General: patient alert, patient awake and moves all extremities Extrem General: capillary refill normal Course Orders Ordered: ED Orders 05/23/23 19:51 CT abdomen pelvis w con Stat 05/23/23 20:12 Covid-19 + FLU A/B + RSV - PCR Stat Discontinued Medications Aspirin (Aspirin 81 Mg Chew Tab) 324 mg PO NOW ONE Stop: 05/23/23 17:34 Last Admin: 05/23/23 18:48 Dose: 324 mg Documented By: SB Diphenhydramine HCl (Diphenhydramine 50 Mg/Ml Vial) 25 mg IV NOW ONE Stop: 05/23/23 20:07 Last Admin: 05/23/23 20:14 Dose: 25 mg Documented By: ADRIAN Hydromorphone HCl (Hydromorphone 1 Mg Inj) 1 mg IV NOW ONE Stop: 05/23/23 19:52 Last Admin: 05/23/23 19:55 Dose: 1 mg Documented By: ADRIAN Hydromorphone HCl (Hydromorphone 1 Mg Inj) 1 mg IV NOW ONE Stop: 05/23/23 22:19 Last Admin: 05/23/23 22:23 Dose: 1 mg Documented By: ADRIAN Lactulose (Lactulose 20 Gm/30 Ml Solution) 20 gm PO NOW ONE Stop: 05/23/23 22:19 Last Admin: 05/23/23 22:23 Dose: 20 gm Documented By: ADRIAN Methylprednisolone (Methylprednisolone 125 Mg/2 Ml Vial) 125 mg IV NOW ONE Stop: 05/23/23 20:07 Last Admin: 05/23/23 20:14 Dose: 125 mg Documented By: ADRIAN Sodium Biphosphate/Sodium Phosphate (Fleets Enema) 1 each OH NOW ONE Stop: 05/23/23 22:19 Last Admin: 05/23/23 22:25 Dose: 1 each Documented By: ADRIAN Vital Signs Vital signs: Vital Signs - 8 hr 05/23/23 20:30 05/23/23 20:34 05/23/23 20:34 Pulse Rate 77 77 Respiratory Rate 28 H 22 Blood Pressure 124/68 Pulse Oximetry 97 98 Oxygen Delivery Method 05/23/23 21:12 05/23/23 21:15 05/23/23 21:15 Pulse Rate 82 78 Respiratory Rate 22 Blood Pressure 135/69 Pulse Oximetry 93 93 Oxygen Delivery Method 05/23/23 21:30 05/23/23 21:30 05/23/23 22:00 Pulse Rate 79 80 Respiratory Rate 20 20 Blood Pressure 123/69 Pulse Oximetry 95 97 Oxygen Delivery Method 05/23/23 22:00 05/23/23 23:57 Pulse Rate 89 Respiratory Rate 20 Blood Pressure 138/71 150/69 H Pulse Oximetry 95 Oxygen Delivery Method Room Air Medical Decision Making Medical Records Medical records reviewed: Yes I reviewed the patient's medical records. Lab Data Lab results reviewed: Yes I reviewed the patient's lab results. 05/23/23 18:03 05/23/23 18:03 Labs: Lab Results 05/23/23 05/23/23 Range/Units 18:03 20:12 WBC 8.3 (4.5-11.0) X10^3/uL RBC 4.42 L (4.5-5.9) X10^6/uL Hgb 11.2 L (13.5-17.5) g/dL Hct 34.7 L (41-53) % MCV 78.4 L (80-100) fL MCH 25.4 L (26-34) PG MCHC 32.4 (30-36) % RDW 15.8 H (11.6-14.8) % Plt Count 279 (150-400) X10^3/uL Neut % (Auto) 60.1 (50-75) % Lymph % (Auto) 19.3 L (25-40) % [place] % (Auto) 9.2 (3-14) % Eos % (Auto) 10.5 H (2-4) % Baso % (Auto) 0.9 (0-2) % Neut # (Auto) 5000 (0924-7822) /uL Lymph # (Auto) 1600 (6820-0708) /uL [place] # (Auto) 800 (0-900) /uL Eos # (Auto) 900 H (0-450) /uL Baso # (Auto) 100 (0-100) /uL PT 12.3 (9.4-12.5) SECONDS INR 1.1 (0.9-1.3) APTT 43 H (25.1-36.5) SECONDS Sodium 138 (137-145) mmol/L Potassium 4.1 (3.4-5.1) mmol/L Chloride 103 (98-107) mmol/L Carbon Dioxide 31 (22-32) mmol/L BUN 9 (9-20) mg/dL Creatinine 0.77 (0.66-1.25) mg/dL Estimated GFR > 60 (>60) mL/min BUN/Creatinine Ratio 11.7 (6-22) Glucose 104 (80-110) mg/dL Calcium 8.9 (8.4-10.2) mg/dL Magnesium 1.6 (1.6-2.3) mg/dL Total Bilirubin 0.4 (0.2-1.3) mg/dL AST 25 (17-59) IU/L ALT 20 (<50) IU/L Alkaline Phosphatase 87 (38-126) U/L Total Creatine Kinase 294 H (55-170) U/L Troponin I < 0.012 (0.01-0.034) ng/mL NT-Pro-B Natriuret Pep 786 H (<125) pg/mL Total Protein 7.2 (6.3-8.2) g/dL Albumin 4.5 (3.5-5.0) g/dL Globulin 2.7 (1.7-4.1) g/dL Albumin/Globulin Ratio 1.7 (1.0-2.8) Lipase 71 (23-300) U/L SARS-CoV-2 (PCR) Negative (Negative) Influenza A (RT-PCR) Flu a negative (NEGATIVE) Influenza B (RT-PCR) Flu b negative (NEGATIVE) RSV (PCR) Negative (Negative) Imaging Data Chest x-ray: Radiologist's Impression: PROCEDURE: XR CHEST 1V INDICATIONS: chest pain TECHNIQUE: One view of the chest was acquired. COMPARISON: [facility], CR, XR CHEST 1V, 03/05/2023, 19:15. [facility], CR, XR CHEST 1V, 04/25/2022, 12:23. FINDINGS: Surgical changes and devices: None. Lungs and pleura: Lungs are clear. No pleural effusions or pneumothorax. Mediastinum: Mediastinal contours appear normal. Heart size is normal. Bones and chest wall: No suspicious bony lesions. Overlying soft tissues appear unremarkable. IMPRESSION: No acute cardiopulmonary abnormality is seen. CT scan - abdomen/pelvis: Radiologist's Impression: PROCEDURE: CT ABDOMEN PELVIS W CON INDICATIONS: Abdominal pain and distention TECHNIQUE: After the administration of intravenous contrast, axial sections acquired from the lung bases to the pubic symphysis. Coronal and sagittal reformats were performed. For radiation dose reduction, the following was used: automated exposure control, adjustment of mA and/or kV according to patient size. COMPARISON: [facility], CT, CT ABDOMEN PELVIS W CON, 10/31/2022, 22:48. FINDINGS: Image quality: Diagnostic. Lower Chest: Lung bases are clear. Likely LAD stent. ABDOMEN: Liver: Mildly heterogeneous enhancement of the liver is again seen, to a lesser extent than prior. Gallbladder: Surgically absent. Biliary ducts: Mild biliary ductal dilatation is stable compared to prior, likely post cholecystectomy in etiology Pancreas: No ductal dilation. Spleen: Size is within normal limits. Adrenal Glands: No adrenal nodules. Kidneys and Ureters: No hydronephrosis. No solid mass. No complex renal cystic lesion which requires follow up. Stomach and Bowel: Normal colonic caliber, without significant wall thickening. Stool ball in the rectum measuring 8.0 x 7.5 cm. Large burden of stool throughout the colon. Diverticulosis without evidence of acute diverticulitis. Peritoneum: No abnormal intraperitoneal fluid. No free air. Ventral Wall: Small ventral abdominal hernia which appears to contain a loop of small bowel without obstruction.. Abdominal Nodes: No retroperitoneal or mesenteric adenopathy by size criteria. Vessels: Aorta and inferior vena cava are normal in size. Atherosclerotic vascular calcifications. PELVIS: Pelvic Organs: Unremarkable. Bladder: No bladder wall thickening, accounting for underdistention. Pelvic Nodes: No enlarged lymph nodes. Miscellaneous: No inguinal hernias are seen. Bones: No aggressive osseous abnormality. Degenerative changes of the spine. IMPRESSION: 1. Mild heterogeneous enhancement of the liver, significantly improved compared to prior. Nonspecific and acute hepatitis is not excluded. Recommend clinical correlation. 2. Large burden of stool throughout the colon within 8 cm stool ball in the rectum, correlate for constipation and impaction. 3. Small ventral abdominal hernia which appears to contain a loop of small bowel without obstruction. MDM Narrative Medical decision making narrative: Chest x-ray is unremarkable. Flu and COVID negative. Lungs are clear. Patient does have a distended abdomen but it is somewhat soft but general tenderness. Lipase is unremarkable. Patient with a large stool burden throughout the colon. I discuss this with the patient. He then received lactulose and enema. He had a very large bowel movement here in the ER who states that all of his symptoms are now resolved. No longer diaphoretic. Is not having any shortness of breath. No longer having abdominal distention. No longer having abdominal pain. Will discharge patient home with return precautions. He expressed understanding and agreement. Discharge Plan Departure Patient Disposition: Home Clinical Impression: Constipation Instructions: DI for Constipation Activity Restrictions/Additional Instructions: I do recommend that you continue with a good bowel regimen to include oral laxatives until you are having normal regular bowel movements. Return to the emergency department for new symptoms. Prescriptions: No Action clopidogrel [Plavix] 75 mg Tablet 75 mg PO QAM Qty: 0 nitroglycerin 0.3 mg tablet, sublingual See Rx Instructions .ROUTE .COMPLEX Qty: 100 0RF Dose Instruction: PLACE 1 TABLET (0.3 MG TOTAL) UNDER THE TONGUE EVERY 5 (FIVE) MINUTES NEEDED FOR CHEST PAIN FOR UP TO 7 DAYS MAY REPEAT EVERY 5 MINUTES UP TO [address] DOSES[address] Rx Instructions: PL[address] 1 TABLET (0.3 MG TOTAL) UNDER THE TONGUE EVERY 5 (FIVE) MINUTES NEEDED FOR CHEST PAIN FOR UP TO 7 DAYS MAY REPEAT EVERY 5 MINUTES UP TO 3 DOSES. methylphenidate HCl 20 mg tablet 20 mg PO TID Qty: 90 0RF methylphenidate HCl 10 mg tablet 20 mg PO TID Qty: 180 0RF insulin lispro [Humalog U-100 Insulin] 100 unit/mL solution See Rx Instructions SUBCUT USEASDIRECTD Rx Instructions: 2-4 sliding scale SUBCUT use as directed; gentamicin 0.3 % drops 1 drp EYE-BOTH TID PRN (Reason: Blepharitis) Qty: 5 12RF Creon 24,000-76,000 -120,000 unit capsule,delayed release(DR/EC) 1 cap PO QID Qty: 120 12RF Rx Instructions: administer with meals and/or snacks prn sliding scale. 1 capsule for every 600 calories morphine [MS Contin] 15 mg tablet extended release 15 mg PO .HS metoprolol tartrate 25 mg tablet 25 mg PO BID rosuvastatin 10 mg tablet 10 mg PO DAILY amlodipine 5 mg tablet 5 mg PO DAILY methylphenidate HCl 20 mg tablet 20 mg PO TID Qty: 90 0RF promethazine 25 mg suppository 25 mg OH Q6H PRN (Reason: Nausea) duloxetine [Cymbalta] 60 mg capsule,delayed release(DR/EC) 60 mg PO QAM Combivent Respimat 20-100 mcg/actuation mist 1 puff inhalation Q4H PRN (Reason: wheezing) acetaminophen [Pain Relief (acetaminophen)] 325 MG tablet 500 mg PO Q4HP PRN (Reason: Pain, Mild) dabigatran etexilate [Pradaxa] 150 mg Capsule 150 mg PO BID ondansetron 8 mg tablet,disintegrating 4 mg PO PRN PRN (Reason: nausea/vomiting) trazodone 50 mg Tablet 50 mg PO BEDTIME PRN (Reason: insomnia) Qty: 30 0RF Rx Instructions: can take 1/2 tab (25mg) if 50 is too strong lisinopril 2.5 mg Tablet 2.5 mg PO QAM diphenhydramine HCl 12.5 mg/5 mL elixir 12.5 mg PO Q6H PRN (Reason: nausea and vomiting) Qty: 500 0RF azelastine inhaler 2 spray intranasal PRN PRN (Reason: Bronchospasm) sennosides [senna] 8.6 mg Tablet 17.2 mg PO BEDTIME Qty: 30 0RF oxycodone 7.5 mg tablet, oral only 7.5 mg PO Q4H PRN (Reason: pain) Qty: 30 0RF Referrals: Eric Huang MD [Primary Care Provider] - Stand Alone Forms: Patient Portal/API
[2023-05-23] MEDS: HYDROMORPHONE 1 MG INJ IV ×2 (19:55→22:23)
[2023-05-23] MEDS: methylPREDNISolone 125 MG/2 ML VIAL IV (20:14)
[2023-05-23] MEDS: diphenhydrAMINE 50 MG/ML VIAL 25 MG IV (20:14)
[2023-05-23 22:13] LABS: Influenza A - CEPHEID Flu A NEGATIVE (NEGATIVE); Influenza B - CEPHEID Flu B NEGATIVE (NEGATIVE); Respiratory Syncytial Virus Negative (Negative)
[2023-05-23 22:14] LABS: COVID-19 CEPHEID 4-PLEX PCR Negative (Negative)
[2023-05-23] MEDS: LACTULOSE 20 GM/30 ML SOLUTION PO (22:23)
[2023-05-23] MEDS: FLEETS ENEMA 1 EACH PR (22:25)
--- NOTE | 2023-05-23 22:57 | PC.NURSE ---
the patient reports feeling better after having a bowel movement. He is pain free now
== END 2023-05-24 | disposition home or self-care (01) ==
PROVIDERS: Emergency Medicine; Emergency Provider Emergency Medicine; Family Provider Nurse Practitioner Family; PCP Family Medicine
DX: K59.00 Constipation, unspecified (principal); R07.9 Chest pain, unspecified; R06.02 Shortness of breath; Z79.899 Other long term (current) drug therapy
CPT/HCPCS: 0241U; 36415; 71045; 74177; 80053; 82550; 83690; 83735; 83880; 84484; 85025; 85610; 85730; 96374; 96375; 96376; 99284; 99285; J1170; J1200; J2930

== ENCOUNTER 2023-05-31 15:58 | Inpatient (IN) | payer OTHER, SELFPAY ==
[2022-04-25 14:13] VITALS: BMI 23.6
[2023-05-31] VITALS (33 sets, daily range): BP systolic 115–149; BP diastolic 66–81; PULSE 82–99; RESP 17–35; TEMP 36.5–36.6; O2SAT 95–100; BMI 26.5
--- NOTE | 2023-05-31 16:19 | DI.RAD.S_ITS ---
PROCEDURE: XR CHEST 1V INDICATIONS: Shortness of breath TECHNIQUE: One view of the chest was acquired. COMPARISON: [facility], CR, XR CHEST 1V, 05/23/2023, 17:51. [facility], CR, XR CHEST 1V, 03/05/2023, 19:15. FINDINGS: Surgical changes and devices: None. Lungs and pleura: Lungs are clear. No pleural effusions or pneumothorax. Mediastinum: Mediastinal contours appear normal. Heart size is normal. Bones and chest wall: No suspicious bony lesions. Overlying soft tissues appear unremarkable. IMPRESSION: No acute cardiopulmonary abnormality is seen. Dictated by: Jordan Peña M.D. on 05/31/2023 at 17:09 Approved by: Jordan Peña M.D. on 05/31/2023 at 17:10
[2023-05-31 16:39] LABS: Add Manual Diff / Slide Review NO; Basophils Absolute Auto 100 /uL (0-100); Basophils Percent Auto 1.3 % (0-2); Eosinophils Absolute Auto 1100 /uL (0-450); Eosinophils Percent Auto 11.5 % (2-4); Hematocrit 42.6 % (41-53); Hemoglobin 13.6 g/dL (13.5-17.5); Lymphocytes Absolute Auto 1400 /uL (1100-4500); Lymphocytes Percent Auto 15.6 % (25-40); Mean Corpuscular HGB Conc 31.9 % (30-36); Mean Corpuscular Hemoglobin 25.1 PG (26-34); Mean Corpuscular Volume 78.8 fL (80-100); Monocytes Absolute Auto 600 /uL (0-900); Monocytes Percent Auto 6.9 % (3-14); Neutrophils Absolute Auto 6000 /uL (1500-7000); Neutrophils Percent Auto 64.7 % (50-75); Platelet Count 402 X10^3/uL (150-400); Red Cell Distribution Width 16.4 % (11.6-14.8); White Blood Cell Count 9.2 X10^3/uL (4.5-11.0)
[2023-05-31 16:43] LABS: Prothrombin Time 11.9 SECONDS (9.4-12.5)
[2023-05-31 16:51] LABS: Alanine Aminotransferase 23 IU/L (<50); Albumin 4.5 g/dL (3.5-5.0); Albumin Globulin Ratio 1.6 (1.0-2.8); Alkaline Phosphatase 121 U/L (38-126); Aspartate Aminotransferase 21 IU/L (17-59); BUN Creatinine Ratio 21.4 (6-22); Bilirubin Total 0.6 mg/dL (0.2-1.3); Blood Urea Nitrogen 15 mg/dL (9-20); Calcium 9.4 mg/dL (8.4-10.2); Carbon Dioxide 25 mmol/L (22-32); Chloride 104 mmol/L (98-107); Estimated Glomerular Filt Rate > 60 mL/min (>60); Globulin 2.9 g/dL (1.7-4.1); Glucose 296 mg/dL (80-110); HEMOLYSIS < 15 (0-50); Lactate (Lactic Acid) 2.4 mmol/L (0.7-2.1); Potassium 4.3 mmol/L (3.4-5.1); Sodium 139 mmol/L (137-145); Total Protein 7.4 g/dL (6.3-8.2)
[2023-05-31 17:02] LABS: NT-proBNP (BNP-Adult 18+) 24 pg/mL (<125); Troponin I < 0.012 ng/mL (0.01-0.034)
[2023-05-31 17:14] LABS: Influenza A - CEPHEID Flu A NEGATIVE (NEGATIVE); Influenza B - CEPHEID Flu B NEGATIVE (NEGATIVE); Respiratory Syncytial Virus Negative (Negative)
[2023-05-31 17:17] LABS: COVID-19 CEPHEID 4-PLEX PCR Negative (Negative)
[2023-05-31 18:05] LABS: Reflexed Lactate in 2 Hours Y
--- NOTE | 2023-05-31 18:16 | ED.SOB ---
HPI - SOB/Dyspnea General Chief Complaint: Shortness of Breath/Dyspnea Stated Complaint: short of breath, chest pain, cough Time Seen by Provider: 05/31/23 17:57 Source: patient and family Mode of arrival: Ambulatory Limitations: no limitations History of Present Illness HPI Narrative: 68-year-old male with history of coronary artery disease, hypertension, diabetes, atrial flutter, peripheral vascular disease, pancreatitis presents by private vehicle for several weeks of progressively worsening shortness of breath, chest pain, nonproductive cough. Patient states that his shortness of breath has progressed to the point where he was having significant difficulty getting around and is unable to sleep at night. Shortness of breath is worse when he lays down flat and with exertion. Reports recent catheterization with stenting of a coronary artery as well as balloonin of a different coronary artery. Reports intermittent substernal chest pain that is slightly different from when he was diagnosed with an HI. Patient seen 1 week prior on 05/23 for cough and chest pain. Patient had a chest x-ray that did not show any acute findings as well as a CT of the abdomen and pelvis that showed extensive stool burden. Patient received lactulose and enema with improvement in symptoms and he was discharged with instructions to follow up with inventory control assistant. Related Data Home Medications Medication Instructions Recorded Confirmed clopidogrel 75 mg tablet (Plavix) 75 mg PO QAM ##0 04/15/08 06/01/23 acetaminophen 325 mg tablet (Pain 500 mg PO Q4HP PRN Pain, Mild 09/25/17 06/01/23 Relief (acetaminophen)) dabigatran etexilate 150 mg 150 mg PO BID 03/24/18 06/01/23 capsule (Pradaxa) lisinopril 2.5 mg tablet 2.5 mg PO QAM blood pressure 04/28/19 06/01/23 insulin lispro 100 unit/mL See Rx Instructions SUBCUT 03/15/20 06/01/23 subcutaneous solution (Humalog USEASDIRECTD U-100 Insulin) duloxetine 60 mg capsule,delayed 60 mg PO QAM 11/01/21 06/01/23 release (Cymbalta) ondansetron 8 mg disintegrating 8 mg PO PRN PRN nausea/vomiting 02/25/22 06/01/23 tablet morphine 15 mg tablet,extended 15 mg PO .HS 06/06/22 06/01/23 release (MS Contin) amlodipine 5 mg tablet 10 mg PO DAILY 01/19/23 06/01/23 rosuvastatin 10 mg tablet 40 mg PO DAILY 01/19/23 06/01/23 diphenhydramine HCl 12.5 mg/5 mL 50 mg PO Q6H PRN nausea and 06/01/23 06/01/23 oral elixir vomiting insulin glargine 10 units SUBCUT QAM 06/01/23 06/01/23 ipratropium-albuterol 3 ml inhalation 4XD PRN For 06/01/23 06/01/23 shortness of breath metoprolol succinate 25 mg 37.5 mg PO BID 06/01/23 06/01/23 tablet,extended release 24 hr tadalafil 20 mg PO PRN PRN 1hr before sexual 06/01/23 06/01/23 activity Previous Rx's Medication Instructions Recorded [id number] 1 cap PO QID #120 caps 03/15/20 24,000-76,000-120,000 unit capsule,delayed rel (Creon) trazodone 50 mg tablet 50 mg PO BEDTIME PRN insomnia #30 03/03/22 tabs oxycodone 7.5 mg tablet,oral ONLY 7.5 mg PO Q4H PRN pain #30 ea 04/18/22 (not for feeding tubes) methylphenidate HCl 20 mg tablet 20 mg PO TID #90 tabs 04/13/23 Allergies Allergy/AdvReac Type Severity Reaction Status Date / Time Iodine and Iodide Containing Allergy Severe Anaphylaxis Verified 03/05/23 18:52 Produc [IODINE AND IODIDE CONTAINING PRODUC] Sulfa (Sulfonamide Allergy Severe Anaphylaxis Verified 03/05/23 18:52 Antibiotics) [SULFA (SULFONAMIDE ANTIBIOTICS)] gabapentin AdvReac Intermediate Dizziness Verified 03/05/23 18:52 [id number] Reductase AdvReac Intermediate Verified 03/05/23 18:52 Inhibitor metformin AdvReac Mild Verified 03/05/23 18:52 Review of Systems Review of Systems Narrative: Negative except as noted above Patient History Medical History Chronic low back pain Coronary artery disease Thyroid nodule Diabetes mellitus Atrial flutter with rapid ventricular response Sepsis Claudication in peripheral vascular disease History of cardioversion (03/07/21) Campylobacter enteritis Exocrine pancreatic insufficiency Acute dehydration Enteritis, enteropathogenic E. coli Paroxysmal atrial fibrillation Psoriasis Narcolepsy GERD (gastroesophageal reflux disease) Hyperlipidemia HTN (hypertension) Insulin dependent diabetes mellitus with complications Peripheral vascular disease Gastroenteritis Pancreatitis Atrial flutter with rapid ventricular response Surgical History History of epididymectomy Hx of biopsy History of femoropopliteal bypass H/O exploratory laparotomy Family History Father Colon cancer Mother Narcolepsy Grandmother Narcolepsy Social History household members: spouse Smoking Status: Former smoker alcohol intake: former Smoking Status: Former smoker alcohol intake frequency: holidays/special occasions only Substance Use Type: marijuana Exam Initial Vital Signs Initial Vital Signs: Vital Signs Temperature 97.8 F 05/31/23 16:05 Pulse Rate 91 H 05/31/23 16:05 Respiratory Rate 24 05/31/23 16:05 Blood Pressure 149/81 H 05/31/23 16:05 Pulse Oximetry 99 05/31/23 16:05 Oxygen Delivery Method Room Air 05/31/23 16:05 Const: Awake, alert, ill-appearing, nontoxic, pale Cardiac: regular rate, regular rhythm RESP: unlabored, clear bilaterally, no wheezing GI: Atraumatic, soft, nontender, nondistended MSK: Atraumatic, full range of motion, pulses equal, no edema Skin: Warm, Dry, intact, no rashes Neuro: AO x3, CN II-XII grossly intact, moves all extremities Course Orders Ordered: ED Orders 05/31/23 22:20 Trop I [Troponin I] Stat 05/31/23 23:16 Respiratory Panel (Film Array) Stat Acetaminophen (Acetaminophen 325 Mg Tablet) 650 mg PO Q6H PRN PRN Reason: Fever/Mild Pain (1-3) Hydrocodone Bitart/Acetaminophen (Hydrocodone/Acet 5/325 Tablet) 1 tab PO Q4H PRN PRN Reason: Pain, Moderate (4-6) Albuterol/Ipratropium (Albuterol/Ipratropium 3 Ml Ampul) 3 ml INH QID PRN PRN Reason: SHORTNESS OF BREATH Amlodipine Besylate (Amlodipine 5 Mg Tablet) 10 mg PO DAILY REPLACED BY [facility] Atorvastatin Calcium (Atorvastatin 20 Mg Tablet) 20 mg PO BEDTIME REPLACED BY [facility] Last Admin: 06/01/23 02:38 Dose: 20 mg Documented By: ОЛЬГА Clopidogrel Bisulfate (Clopidogrel 75 Mg Tablet) 75 mg PO DAILY REPLACED BY [facility] Dabigatran (Dabigatran 75 Mg Capsule) 150 mg PO BID REPLACED BY [facility] Last Admin: 06/01/23 02:39 Dose: 150 mg Documented By: ОЛЬГА Diphenhydramine HCl (Diphenhydramine 12.5 Mg/5 Ml Udc) 50 mg PO Q6H PRN PRN Reason: nausea and vomiting Last Admin: 06/01/23 02:35 Dose: 50 mg Documented By: ОЛЬГА Duloxetine HCl (Duloxetine 30 Mg Capsule) 60 mg PO DAILY REPLACED BY [facility] Hydromorphone HCl (Hydromorphone 0.5 Mg Inj) 0.5 mg IV Q2H PRN PRN Reason: Pain, Severe (7-10) Last Admin: 06/01/23 01:11 Dose: 0.5 mg Documented By: ОЛЬГА Insulin Glargine (Insulin Glargine 100 Unit/Ml 3ml Pen) 10 unit SUBCUT DAILY REPLACED BY [facility] Insulin Human Regular (Insulin Regular 100 Unit/Ml 3 Ml Vial) 0 unit SUBCUT [facility] REPLACED BY [facility]; Protocol Lisinopril (Lisinopril 5 Mg Tablet) 2.5 mg PO DAILY REPLACED BY [facility] Metoprolol Succinate (Metoprolol Er 25 Mg Tablet) 37.5 mg PO BID REPLACED BY [facility] Last Admin: 06/01/23 02:38 Dose: 37.5 mg Documented By: ОЛЬГА Morphine Sulfate (Morphine Er 15 Mg Tablet) 15 mg PO BEDTIME REPLACED BY [facility] Naloxone HCl (Naloxone 0.4 Mg/Ml Vial) 0.2 mg IV Q2MIN PRN PRN Reason: Opiate Reversal Nitroglycerin (Nitroglycerin 0.4 Mg Sl Tab) 0.4 mg SL [id number] PRN PRN Reason: Chest Pain Non-Formulary Medication (Yllosu-[id number]-[id number] [Creon]) 1 cap PO QID REPLACED BY [facility] Non-Formulary Medication (Tadalafil) 20 mg PO PRN PRN PRN Reason: 1hr before sexual activity Ondansetron HCl (Ondansetron 4 Mg/2 Ml Inj) 4 mg IV Q8HR PRN PRN Reason: Nausea And Vomiting Ondansetron HCl (Ondansetron 4 Mg Odt) 8 mg PO PRN PRN PRN Reason: nausea/vomiting Oxycodone HCl (Oxycodone Ir 5 Mg Tablet) 7.5 mg PO Q4HR PRN PRN Reason: Pain, Severe (7-10) Trazodone HCl (Trazodone 50 Mg Tablet) 50 mg PO BEDTIME PRN PRN Reason: insomnia Discontinued Medications Acetaminophen (Acetaminophen 325 Mg Tablet) 500 mg PO Q4H PRN PRN Reason: Pain, Mild Diphenhydramine HCl (Diphenhydramine 50 Mg/Ml Vial) 50 mg IV NOW ONE Stop: 05/31/23 18:55 Last Admin: 05/31/23 19:12 Dose: 50 mg Documented By: TIM Hydromorphone HCl (Hydromorphone 1 Mg Inj) 1 mg IV NOW ONE Stop: 05/31/23 20:50 Last Admin: 05/31/23 20:56 Dose: 1 mg Documented By: ОЛЬГА Insulin Human Lispro (Insulin Lispro 100 Unit/Ml 3ml Vial) 0 unit SUBCUT USEASDIRECTD KATHY Insulin Human Regular (Insulin Regular 100 Unit/Ml 3 Ml Vial) 5 unit SUBCUT NOW ONE Stop: 06/01/23 03:33 Methylprednisolone (Methylprednisolone 125 Mg/2 Ml Vial) 125 mg IV NOW ONE Stop: 05/31/23 18:56 Last Admin: 05/31/23 19:09 Dose: 125 mg Documented By: TIM Morphine Sulfate (Morphine Er 15 Mg Tablet) 15 mg PO .HS KATHY Non-Formulary Medication (Rosuvastatin) 10 mg PO DAILY KATHY Non-Formulary Medication (Dabigatran Etexilate [Pradaxa]) 150 mg PO BID KATHY Non-Formulary Medication (Insulin Glargine) 10 units SUBCUT QAM KATHY Non-Formulary Medication (Ipratropium-Albuterol) 3 ml INHALATION 4XD PRN PRN Reason: For shortness of breath Non-Formulary Medication (Lisinopril) 2.5 mg PO QAM KATHY Non-Formulary Medication (Oxycodone) 7.5 mg PO Q4H PRN PRN Reason: pain Vital Signs Vital signs: Vital Signs - 8 hr 05/31/23 20:15 05/31/23 20:15 05/31/23 20:30 Pulse Rate 86 Respiratory Rate 24 Blood Pressure 124/73 126/74 Pulse Oximetry 98 05/31/23 20:30 05/31/23 20:45 05/31/23 20:45 Pulse Rate 83 82 Respiratory Rate 20 26 H Blood Pressure 128/69 Pulse Oximetry 98 98 05/31/23 21:00 05/31/23 21:00 05/31/23 21:15 Pulse Rate 88 90 Respiratory Rate 24 21 Blood Pressure 139/75 Pulse Oximetry 99 97 05/31/23 21:15 05/31/23 21:30 05/31/23 21:30 Pulse Rate 88 Respiratory Rate 23 Blood Pressure 136/78 137/75 Pulse Oximetry 96 05/31/23 21:45 05/31/23 21:45 05/31/23 22:00 Pulse Rate 88 90 Respiratory Rate 22 20 Blood Pressure 135/73 Pulse Oximetry 96 96 05/31/23 22:00 05/31/23 22:15 05/31/23 22:15 Pulse Rate 91 H Respiratory Rate 18 Blood Pressure 134/72 133/71 Pulse Oximetry 96 05/31/23 22:30 05/31/23 22:30 Pulse Rate 93 H Respiratory Rate 22 Blood Pressure 136/66 Pulse Oximetry 97 MDM - SOB/Dyspnea Differential Diagnosis Differential diagnosis: Likely acute exacerbation of chronic obstructive airways disease, congestive heart failure and community acquired pneumonia Lab Data 05/31/23 16:11 05/31/23 16:11 Labs: Lab Results 05/31/23 05/31/23 05/31/23 Range/Units 16:11 18:26 22:20 WBC 9.2 (4.5-11.0) X10^3/uL RBC 5.40 (4.5-5.9) X10^6/uL Hgb 13.6 (13.5-17.5) g/dL Hct 42.6 (41-53) % MCV 78.8 L (80-100) fL MCH 25.1 L (26-34) PG MCHC 31.9 (30-36) % RDW 16.4 H (11.6-14.8) % Plt Count 402 H (150-400) X10^3/uL Neut % (Auto) 64.7 (50-75) % Lymph % (Auto) 15.6 L (25-40) % Bladen % (Auto) 6.9 (3-14) % Eos % (Auto) 11.5 H (2-4) % Baso % (Auto) 1.3 (0-2) % Neut # (Auto) 6000 (6805-6507) /uL Lymph # (Auto) 1400 (9390-1720) /uL Bladen # (Auto) 600 (0-900) /uL Eos # (Auto) 1100 H (0-450) /uL Baso # (Auto) 100 (0-100) /uL PT 11.9 (9.4-12.5) SECONDS INR 1.0 (0.9-1.3) Sodium 139 (137-145) mmol/L Potassium 4.3 (3.4-5.1) mmol/L Chloride 104 (98-107) mmol/L Carbon Dioxide 25 (22-32) mmol/L BUN 15 (9-20) mg/dL Creatinine 0.70 (0.66-1.25) mg/dL Estimated GFR > 60 (>60) mL/min BUN/Creatinine Ratio 21.4 (6-22) Glucose 296 H D (80-110) mg/dL Lactate 2.4 H 2.1 (0.7-2.1) mmol/L Calcium 9.4 (8.4-10.2) mg/dL Total Bilirubin 0.6 (0.2-1.3) mg/dL AST 21 (17-59) IU/L ALT 23 (<50) IU/L Alkaline Phosphatase 121 (38-126) U/L Troponin I < 0.012 < 0.012 (0.01-0.034) ng/mL NT-Pro-B Natriuret Pep 24 (<125) pg/mL Total Protein 7.4 (6.3-8.2) g/dL Albumin 4.5 (3.5-5.0) g/dL Globulin 2.9 (1.7-4.1) g/dL Albumin/Globulin Ratio 1.6 (1.0-2.8) SARS-CoV-2 (PCR) Negative (Negative) Influenza A (RT-PCR) Flu a negative (NEGATIVE) Influenza B (RT-PCR) Flu b negative (NEGATIVE) RSV (PCR) Negative (Negative) Point of Care Testing Glucose POC 357 Imaging Data Chest x-ray: My Impression: PROCEDURE: XR CHEST 1V INDICATIONS: Shortness of breath TECHNIQUE: One view of the chest was acquired. COMPARISON: [facility], CR, XR CHEST 1V, 05/23/2023, 17:51. [facility], CR, XR CHEST 1V, 03/05/2023, 19:15. FINDINGS: Surgical changes and devices: None. Lungs and pleura: Lungs are clear. No pleural effusions or pneumothorax. Mediastinum: Mediastinal contours appear normal. Heart size is normal. Bones and chest wall: No suspicious bony lesions. Overlying soft tissues appear unremarkable. IMPRESSION: No acute cardiopulmonary abnormality is seen. Dictated by: Jordan Peña M.D. on 05/31/2023 at 17:09 Approved by: Jordan Peña M.D. on 05/31/2023 at 17:10 CT scan - chest: Radiologist's Impression: PROCEDURE: CT ANGIO CHEST PE PROTOCOL INDICATIONS: PROFOUND EXERTIONAL DYSPNEA/CP TECHNIQUE: After the administration of intravenous contrast, 2 mm thick sections acquired from the pulmonary apices to the posterior costophrenic angles. 3-dimensional maximum intensity projection (MIP) coronal and sagittal reformats were then acquired through the thorax. For radiation dose reduction, the following was used: automated exposure control, adjustment of mA and/or kV according to patient size. COMPARISON: None. FINDINGS: Image quality: Diagnostic. Pulmonary arteries: Pulmonary arteries are normal in size, and demonstrate no intraluminal filling defects to suggest central pulmonary embolism. Lower Neck: No enlarged lymph nodes. Thyroid: Amorphous calcifications within left thyroid lobe are seen. Heterogeneous enhancement in left thyroid lobe is also noted. Axillae: No enlarged lymph nodes. Chest Wall: Unremarkable. Bones: Unremarkable. Lungs and Pleura: No pneumothorax or pleural effusions. No consolidation or suspicious nodules. Heart: Heart size is normal. No pericardial effusion. Thoracic Vessels: No aortic aneurysm. 3 vessel coronary artery calcifications. Mediastinum and Moon: No enlarged lymph nodes. Esophagus: No wall thickening. Small hiatal hernia. Upper Abdomen: Visualized upper abdomen solid organs and bowel loops appear normal. IMPRESSION: 1. No pulmonary embolus. 2. No acute cardiopulmonary process. 3 vessel coronary artery calcifications. 3. Heterogeneous enhancement and calcifications in left thyroid lobe which may represent calcified thyroid nodules. Outpatient ultrasound of thyroid gland can be done for further evaluation if indicated. Dictated by: Savage Early M.D. on 05/31/2023 at 20:09 Approved by: Savage Early M.D. on 05/31/2023 at 20:14 ECG Data Interpretation: Normal sinus rhythm at 90 beats per minute. Normal axis, normal MN. T-wave inversions in lateral leads, no STEMI MDM Narrative Medical decision making narrative: Patient presenting for progressively worsening dyspnea on exertion, now having difficulty with performing basic functions due to his dyspnea. While at rest in the ED bed patient is conversational without dyspnea. Based on patient's history of coronary disease and numerous other comorbidities plan to were labs and imaging. EKG is NSR with T wave inversions in lateral leads. Previous S-T depresssions in 03/17 in our ED. Laboratory work is reviewed, hemoglobin 13.6, troponin x3 undetectable, BNP 24, glucose 296 without elevation in anion gap. Initial lactic acid 2.4, repeat 2.1. Repeat chest x-ray shows no acute abnormalities, CT angio of the chest also reveals no acute abnormalities to explain patient's symptoms. Patient still quite dyspneic with minimal exertion even when readjusting himself in bed. With cardiac history question if symptoms are related to patient's coronary disease. We do have stress test capabilities tomorrow and I would like to admit patient for stress test and further studies. Patient in agreement at this time. Discharge Plan Departure Patient Disposition: Admitted as Observation Clinical Impression: Chest pain, Exertional dyspnea Admit Date/Time: 05/31/23 22:42 Admit Provider: Chau Carrasco
--- NOTE | 2023-05-31 18:41 | DI.CT.S_ITS ---
PROCEDURE: CT ANGIO CHEST PE PROTOCOL INDICATIONS: PROFOUND EXERTIONAL DYSPNEA/CP TECHNIQUE: After the administration of intravenous contrast, 2 mm thick sections acquired from the pulmonary apices to the posterior costophrenic angles. 3-dimensional maximum intensity projection (MIP) coronal and sagittal reformats were then acquired through the thorax. For radiation dose reduction, the following was used: automated exposure control, adjustment of mA and/or kV according to patient size. COMPARISON: None. FINDINGS: Image quality: Diagnostic. Pulmonary arteries: Pulmonary arteries are normal in size, and demonstrate no intraluminal filling defects to suggest central pulmonary embolism. Lower Neck: No enlarged lymph nodes. Thyroid: Amorphous calcifications within left thyroid lobe are seen. Heterogeneous enhancement in left thyroid lobe is also noted. Axillae: No enlarged lymph nodes. Chest Wall: Unremarkable. Bones: Unremarkable. Lungs and Pleura: No pneumothorax or pleural effusions. No consolidation or suspicious nodules. Heart: Heart size is normal. No pericardial effusion. Thoracic Vessels: No aortic aneurysm. 3 vessel coronary artery calcifications. Mediastinum and Moon: No enlarged lymph nodes. Esophagus: No wall thickening. Small hiatal hernia. Upper Abdomen: Visualized upper abdomen solid organs and bowel loops appear normal. IMPRESSION: 1. No pulmonary embolus. 2. No acute cardiopulmonary process. 3 vessel coronary artery calcifications. 3. Heterogeneous enhancement and calcifications in left thyroid lobe which may represent calcified thyroid nodules. Outpatient ultrasound of thyroid gland can be done for further evaluation if indicated. Dictated by: Savage Early M.D. on 05/31/2023 at 20:09 Approved by: Savage Early M.D. on 05/31/2023 at 20:14
[2023-05-31 18:57] LABS: Lactate 2HR (Lactic Acid Rflx) 2.1 mmol/L (0.7-2.1)
[2023-05-31] MEDS: methylPREDNISolone 125 MG/2 ML VIAL IV (19:09)
[2023-05-31] MEDS: diphenhydrAMINE 50 MG/ML VIAL IV (19:12)
[2023-05-31] MEDS: HYDROMORPHONE 1 MG INJ IV (20:56)
[2023-05-31 23:01] LABS: Troponin I < 0.012 ng/mL (0.01-0.034)
[2023-06-01] VITALS (48 sets, daily range): BP systolic 117–144; BP diastolic 62–77; PULSE 81–109; RESP 14–39; TEMP 36.1–36.9; O2SAT 94–99; BMI 26.5
--- NOTE | 2023-06-01 | DI.CT.S_ITS ---
PROCEDURE: CT ABDOMEN PELVIS WO CON INDICATIONS: ABD PAIN TECHNIQUE: Axial sections were acquired from the lung bases to the pubic symphysis. Coronal and sagittal reformats were performed. For radiation dose reduction, the following was used: automated exposure control, adjustment of mA and/or kV according to patient size. COMPARISON: [facility], CT, CT ANGIO CHEST PE PROTOCOL, 05/31/2023, 19:42. [facility], CT, CT ABDOMEN PELVIS W CON, 05/23/2023, 21:10. FINDINGS: Image quality: Diagnostic. Lower Chest: Coronary artery stent. URINARY: Right Kidney: Contrast is present in the collecting system minimally, from the CT performed yesterday. No obvious lesions. No hydronephrosis. Small stones could be obscured. Right Ureter: No hydroureter. Left Kidney: Contrast is present in the collecting system minimally, from the CT performed yesterday. No obvious lesions. No hydronephrosis. Small stones could be obscured. Left Ureter: No hydroureter. Bladder: Contrast is present filling the bladder from yesterday's study. No bladder wall thickening. A. ABDOMEN: Liver: No contour-deforming solid mass. Gallbladder: Surgically absent. Biliary ducts: No biliary dilation. Pancreas: No ductal dilation. Spleen: Size is within normal limits. Adrenal Glands: No adrenal nodules. Stomach and Bowel: Normal colonic caliber, without significant wall thickening. The appendix is mildly dilated and fluid-filled without inflammatory change in the subjacent fat. It measures 8.5 mm in diameter. Peritoneum: No abnormal intraperitoneal fluid. No free air. Ventral Wall: No hernia. Abdominal Nodes: No enlarged retroperitoneal or mesenteric lymph nodes. Vessels: Aorta and inferior vena cava are normal in size. PELVIS: Pelvic Organs: Unremarkable. Pelvic Nodes: Unremarkable. Miscellaneous: No inguinal hernias are seen. Bones: There are small disc protrusions L4-L5 and L5-S1. No lytic or blastic bony lesions. No compression fractures. IMPRESSION: 1. Mildly dilated fluid-filled appendix without surrounding inflammation. This may potentially represent early non perforated appendicitis. This is not definite. Recommend clinical correlation. 2. Contrast is present in the collecting systems of the kidneys from the previous CT. Cannot exclude small nonobstructing stones. Comment: Recommend clinical correlation to exclude nonruptured acute appendicitis. Findings may potentially simply represent a prominent fluid-filled appendix. Dictated by: Timo Cooper M.D. on 06/01/2023 at 9:36 Approved by: Timo Cooper M.D. on 06/01/2023 at 9:59
[2023-06-01 00:10] LABS: Adenovirus Not Detected (Not Detect); B. parapertussis Not Detected (Not Detecte); Bordetella pertussis Not Detected (Not Detect); Chlamydophila pneumoniae Not Detected (Not Detect); Coronavirus 229E Not Detected (Not Detect); Coronavirus HKU1 Not Detected (Not Detect); Coronavirus NL 63 Not Detected (Not Detect); Coronavirus OC43 Not Detected (Not Detect); Human Metapneumovirus Not Detected (Not Detect); Human Rhinovirus/Enterovirus Not Detected (Not Detect); Influenza A Not Detected (Not Detect); Influenza B Not Detected (Not Detect); Mycoplasma pneumoniae Not Detected (Not Detect); Parainfluenza Virus 1 Not Detected (Not Detect); Parainfluenza Virus 2 Not Detected (Not Detect); Parainfluenza Virus 3 Not Detected (Not Detect); Parainfluenza Virus 4 Not Detected (Not Detect); Respiratory Syncytial Virus Not Detected (Not Detect); SARS- CoV-2 Not Detected (Not Detecte)
[2023-06-01] MEDS: HYDROMORPHONE 0.5 MG INJ IV ×2 (01:11→07:53)
[2023-06-01 01:29] LABS: Troponin I < 0.012 ng/mL (0.01-0.034)
--- NOTE | 2023-06-01 01:50 | PM.HP.1 ---
History of Present Illness History of Present Illness Chief complaint: short of breath, chest pain, cough Narrative: 68 years old male with a past medical history of hypertension, diabetes mellitus type 2, atrial flutter, peripheral vascular disease, dyslipidemia and multiple other medical issues presented to the emergency room for chest tightness mainly in the retrosternal/epigastric region nonradiating with episodes of palpitations. No dizziness or loss of consciousness. Feels chills but no temperature. Has shortness of breath on exertion but no edema in the lower extremity. No orthopnea. Has nausea but no vomiting. Denies any bowel movement or bladder issues. Workup included a chest x-ray and EKG that shows no acute process. WBC is 9.2, hemoglobin is 13.6. Blood sugar was 296 but otherwise electrolytes are fairly unremarkable. Viral screen is negative. BNP is 24. Given the multiple cardiac risk factors, he was admitted for further evaluation [facility] Medical History Chronic low back pain Coronary artery disease Thyroid nodule Diabetes mellitus Atrial flutter with rapid ventricular response Sepsis Claudication in peripheral vascular disease History of cardioversion (03/07/21) Campylobacter enteritis Exocrine pancreatic insufficiency Acute dehydration Enteritis, enteropathogenic E. coli Paroxysmal atrial fibrillation Psoriasis Narcolepsy GERD (gastroesophageal reflux disease) Hyperlipidemia HTN (hypertension) Insulin dependent diabetes mellitus with complications Peripheral vascular disease Gastroenteritis Pancreatitis Atrial flutter with rapid ventricular response Surgical History History of epididymectomy Hx of biopsy History of femoropopliteal bypass H/O exploratory laparotomy Family History Father Colon cancer Mother Narcolepsy Grandmother Narcolepsy Social History household members: spouse Smoking Status: Former smoker alcohol intake: former Meds Home Medications and Allergies Home Medications Medication Instructions Recorded Confirmed Type clopidogrel 75 mg tablet (Plavix) 75 mg PO QA ##0 04/15/08 06/01/23 History acetaminophen 325 mg tablet (Pain 500 mg PO Q4HP PRN Pain, Mild 09/25/17 06/01/23 History Relief (acetaminophen)) dabigatran etexilate 150 mg 150 mg PO BID 03/24/18 06/01/23 History capsule (Pradaxa) lisinopril 2.5 mg tablet 2.5 mg PO QAM blood pressure 04/28/19 06/01/23 History gentamicin 0.3 % eye drops 1 drp EYE-BOTH TID PRN Blepharitis 03/15/20 01/19/23 Rx #5 mL insulin lispro 100 unit/mL See Rx Instructions SUBCUT 03/15/20 06/01/23 History subcutaneous solution (Humalog USEASDIRECTD U-100 Insulin) vrsstw-higumgur-[id number] 1 cap PO QID #120 caps 03/15/20 06/01/23 Rx 24,000-76,000-120,000 unit capsule,delayed rel (Creon) promethazine 25 mg rectal 25 mg [place] Q6H PRN Nausea 06/17/20 01/19/23 History suppository azelastine 2 spray intranasal PRN PRN 05/30/21 01/19/23 History Bronchospasm duloxetine 60 mg capsule,delayed 60 mg PO QAM 11/01/21 06/01/23 History release (Cymbalta) ipratropium 20 mcg-albuterol 100 1 puff inhalation Q4H PRN wheezing 11/01/21 01/19/23 History mcg/actuation mist for inhalation (Combivent Respimat) ondansetron 8 mg disintegrating 8 mg PO PRN PRN nausea/vomiting 02/25/22 06/01/23 History tablet trazodone 50 mg tablet 50 mg PO BEDTIME PRN insomnia #30 03/03/22 06/01/23 Rx tabs oxycodone 7.5 mg tablet,oral ONLY 7.5 mg PO Q4H PRN pain #30 ea 04/18/22 06/01/23 Rx (not for feeding tubes) sennosides 8.6 mg tablet (senna) 17.2 mg (2 x 8.6 mg) PO BEDTIME 04/18/22 01/19/23 Rx #30 tabs morphine 15 mg tablet,extended 15 mg PO .HS 06/06/22 06/01/23 History release (MS Contin) nitroglycerin 0.3 mg sublingual See Rx Instructions .Route 07/27/22 01/19/23 Rx tablet .COMPLEX #100 ea amlodipine 5 mg tablet 10 mg PO DAILY 01/19/23 06/01/23 History methylphenidate HCl 20 mg tablet 20 mg PO TID #90 ea 01/19/23 01/19/23 Rx metoprolol tartrate 25 mg tablet 25 mg PO BID 01/19/23 01/19/23 History rosuvastatin 10 mg tablet 40 mg PO DAILY 01/19/23 06/01/23 History methylphenidate HCl 20 mg tablet 20 mg PO TID #90 tabs 04/13/23 06/01/23 Rx methylphenidate HCl 10 mg tablet 20 mg (2 x 10 mg) PO TID #180 ea 05/11/23 Rx diphenhydramine HCl 12.5 mg/5 mL 50 mg PO Q6H PRN nausea and 06/01/23 06/01/23 History oral elixir vomiting insulin glargine 10 units SUBCUT QAM 06/01/23 06/01/23 History ipratropium-albuterol 3 ml inhalation 4XD PRN For 06/01/23 06/01/23 History shortness of breath metoprolol succinate 25 mg 37.5 mg PO BID 06/01/23 06/01/23 History tablet,extended release 24 hr tadalafil 20 mg PO PRN PRN 1hr before sexual 06/01/23 06/01/23 History activity Allergies Allergy/AdvReac Type Severity Reaction Status Date / Time Iodine and Iodide Containing Allergy Severe Anaphylaxis Verified 03/05/23 18:52 Produc [IODINE AND IODIDE CONTAINING PRODUC] Sulfa (Sulfonamide Allergy Severe Anaphylaxis Verified 03/05/23 18:52 Antibiotics) [SULFA (SULFONAMIDE ANTIBIOTICS)] gabapentin AdvReac Intermediate Dizziness Verified 03/05/23 18:52 Oelwrqr-AUD-ExP Reductase AdvReac Intermediate Verified 03/05/23 18:52 Inhibitor metformin AdvReac Mild Verified 03/05/23 18:52 Review of Systems Review of Systems Narrative: A 12 point review of system is negative unless otherwise stated in history of present illness Exam Vital Signs (past 8 hours): - 05/31/23 18:00 05/31/23 18:00 05/31/23 18:01 Temperature 97.7 F Pulse Rate 92 H Respiratory Rate 30 H Blood Pressure 132/76 Pulse Oximetry 98 05/31/23 18:15 05/31/23 18:15 05/31/23 18:30 Temperature Pulse Rate 91 H Respiratory Rate 31 H Blood Pressure 115/73 120/71 Pulse Oximetry 100 05/31/23 18:30 05/31/23 18:45 05/31/23 18:45 Temperature Pulse Rate 87 87 Respiratory Rate 19 21 Blood Pressure 128/74 Pulse Oximetry 98 99 05/31/23 19:00 05/31/23 19:00 05/31/23 19:15 Temperature Pulse Rate 91 H 87 Respiratory Rate 24 21 Blood Pressure 129/75 Pulse Oximetry 100 96 05/31/23 19:15 05/31/23 19:30 05/31/23 19:30 Temperature Pulse Rate 89 Respiratory Rate 23 Blood Pressure 128/71 121/73 Pulse Oximetry 97 05/31/23 20:00 05/31/23 20:01 05/31/23 20:01 Temperature Pulse Rate 87 88 Respiratory Rate 27 H 24 Blood Pressure 128/77 Pulse Oximetry 97 98 05/31/23 20:15 05/31/23 20:15 05/31/23 20:30 Temperature Pulse Rate 86 Respiratory Rate 24 Blood Pressure 124/73 126/74 Pulse Oximetry 98 05/31/23 20:30 05/31/23 20:45 05/31/23 20:45 Temperature Pulse Rate 83 82 Respiratory Rate 20 26 H Blood Pressure 128/69 Pulse Oximetry 98 98 05/31/23 21:00 05/31/23 21:00 05/31/23 21:15 Temperature Pulse Rate 88 90 Respiratory Rate 24 21 Blood Pressure 139/75 Pulse Oximetry 99 97 05/31/23 21:15 05/31/23 21:30 05/31/23 21:30 Temperature Pulse Rate 88 Respiratory Rate 23 Blood Pressure 136/78 137/75 Pulse Oximetry 96 05/31/23 21:45 05/31/23 21:45 05/31/23 22:00 Temperature Pulse Rate 88 90 Respiratory Rate 22 20 Blood Pressure 135/73 Pulse Oximetry 96 96 05/31/23 22:00 05/31/23 22:15 05/31/23 22:15 Temperature Pulse Rate 91 H Respiratory Rate 18 Blood Pressure 134/72 133/71 Pulse Oximetry 96 05/31/23 22:30 05/31/23 22:30 05/31/23 22:45 Temperature Pulse Rate 93 H 92 H Respiratory Rate 22 28 H Blood Pressure 136/66 Pulse Oximetry 97 97 05/31/23 22:45 05/31/23 23:00 05/31/23 23:00 Temperature Pulse Rate 92 H Respiratory Rate 20 Blood Pressure 133/66 135/67 Pulse Oximetry 95 05/31/23 23:15 05/31/23 23:15 05/31/23 23:30 Temperature Pulse Rate 92 H 97 H Respiratory Rate 24 23 Blood Pressure 148/67 H Pulse Oximetry 97 97 05/31/23 23:30 05/31/23 23:45 05/31/23 23:45 Temperature Pulse Rate 97 H Respiratory Rate 20 Blood Pressure 147/70 H 148/68 H Pulse Oximetry 95 06/01/23 00:00 06/01/23 00:00 06/01/23 00:15 Temperature Pulse Rate 97 H 95 H Respiratory Rate 29 H 21 Blood Pressure 144/71 H Pulse Oximetry 96 97 06/01/23 00:15 06/01/23 00:30 06/01/23 00:30 Temperature Pulse Rate 96 H Respiratory Rate 25 H Blood Pressure 142/72 H 144/70 H Pulse Oximetry 96 06/01/23 00:45 06/01/23 00:45 06/01/23 01:00 Temperature Pulse Rate 97 H 97 H Respiratory Rate 18 19 Blood Pressure 127/62 Pulse Oximetry 95 96 06/01/23 01:00 06/01/23 01:13 06/01/23 01:15 Temperature 97.9 F Pulse Rate Respiratory Rate Blood Pressure 139/66 138/68 Pulse Oximetry 06/01/23 01:15 06/01/23 01:30 Temperature Pulse Rate 99 H 109 H Respiratory Rate 23 20 Blood Pressure Pulse Oximetry 96 98 Oxygen Delivery Method Room Air Narrative Exam Narrative: Air entry equal bilaterally no wheezes no crackles Trace edema bilateral lower extremities Objective Labs 05/31/23 16:11 05/31/23 16:11 Labs: Laboratory Results - last 24 hr 05/31/23 05/31/23 05/31/23 16:11 18:26 22:20 WBC 9.2 RBC 5.40 Hgb 13.6 Hct 42.6 MCV 78.8 L MCH 25.1 L MCHC 31.9 RDW 16.4 H Plt Count 402 H Neut % (Auto) 64.7 Lymph % (Auto) 15.6 L [place] % (Auto) 6.9 Eos % (Auto) 11.5 H Baso % (Auto) 1.3 Neut # (Auto) 6000 Lymph # (Auto) 1400 [place] # (Auto) 600 Eos # (Auto) 1100 H Baso # (Auto) 100 PT 11.9 INR 1.0 Sodium 139 Potassium 4.3 Chloride 104 Carbon Dioxide 25 BUN 15 Creatinine 0.70 Estimated GFR > 60 BUN/Creatinine Ratio 21.4 Glucose 296 H D Lactate 2.4 H 2.1 Calcium 9.4 Total Bilirubin 0.6 AST 21 ALT 23 Alkaline Phosphatase 121 Troponin I < 0.012 < 0.012 NT-Pro-B Natriuret Pep 24 Total Protein 7.4 Albumin 4.5 Globulin 2.9 Albumin/Globulin Ratio 1.6 Chlamy pneumoniae PCR Adenovirus (PCR) B.parapertussis DNA PCR Coronavirus OC43 (PCR) Coronavirus HKU1 (PCR) Coronavirus 229E (PCR) SARS-CoV-2 (PCR) Negative Coronavirus NL63 (PCR) Human Metapneumovir PCR Influenza A (RT-PCR) Flu a negative Influenza Type A (PCR) Influenza B (RT-PCR) Flu b negative Influenza Type B (PCR) M. pneumoniae (PCR) Parainfluenza 1 (PCR) Parainfluenza 2 (PCR) Parainfluenza 3 (PCR) Parainfluenza 4 (PCR) RSV (PCR) Negative Entero/Rhino (PCR) 05/31/23 06/01/23 23:16 00:55 WBC RBC Hgb Hct MCV MCH MCHC RDW Plt Count Neut % (Auto) Lymph % (Auto) [place] % (Auto) Eos % (Auto) Baso % (Auto) Neut # (Auto) Lymph # (Auto) [place] # (Auto) Eos # (Auto) Baso # (Auto) PT INR Sodium Potassium Chloride Carbon Dioxide BUN Creatinine Estimated GFR BUN/Creatinine Ratio Glucose Lactate Calcium Total Bilirubin AST ALT Alkaline Phosphatase Troponin I < 0.012 NT-Pro-B Natriuret Pep Total Protein Albumin Globulin Albumin/Globulin Ratio Chlamy pneumoniae PCR Not detected Adenovirus (PCR) Not detected B.parapertussis DNA PCR Not detected Coronavirus OC43 (PCR) Not detected Coronavirus HKU1 (PCR) Not detected Coronavirus 229E (PCR) Not detected SARS-CoV-2 (PCR) Not detected Coronavirus NL63 (PCR) Not detected Human Metapneumovir PCR Not detected Influenza A (RT-PCR) Influenza Type A (PCR) Not detected Influenza B (RT-PCR) Influenza Type B (PCR) Not detected M. pneumoniae (PCR) Not detected Parainfluenza 1 (PCR) Not detected Parainfluenza 2 (PCR) Not detected Parainfluenza 3 (PCR) Not detected Parainfluenza 4 (PCR) Not detected RSV (PCR) Not detected Entero/Rhino (PCR) Not detected Assessment & Plan Assessment & Plan narrative: 68 years old male with a past medical history of hypertension, diabetes mellitus type 2, atrial flutter, peripheral vascular disease, dyslipidemia and multiple other medical issues presented to the emergency room for chest tightness mainly in the retrosternal/epigastric region nonradiating with episodes of palpitations. No dizziness or loss of consciousness. Feels chills but no temperature. Has shortness of breath on exertion but no edema in the lower extremity. No orthopnea. Has nausea but no vomiting. Denies any bowel movement or bladder issues. Workup included a chest x-ray and EKG that shows no acute process. WBC is 9.2, hemoglobin is 13.6. Blood sugar was 296 but otherwise electrolytes are fairly unremarkable. Viral screen is negative. BNP is 24. Given the multiple cardiac risk factors, he was admitted for further evaluation 1 chest tightness/retrosternal pain in a patient with multiple cardiac risk factors including history of coronary artery disease. Monitoring telemetry and check serial cardiac enzymes. Pain has since resolved. As needed nitroglycerin/morphine and in the meantime resume the home dose of metoprolol/Lipitor/Plavix/currently on Pradaxa and not on aspirin. Follow-up with an echocardiogram and eventual Myoview. Cardiology consult if available 2 coronary artery disease status post angioplasty on statin/Plavix/beta-blockers as above 3 dyslipidemia resume home statin and check lipid panel in the morning 4 hypertension resume the home metoprolol/lisinopril/amlodipine and watch the blood pressure closely 5 chronic back pain resume the home pain medications including MS Contin 6 DVT prophylaxis currently on Pradaxa and ambulatory Per records currently patient is DNR Patient will be admitted under observation status
[2023-06-01] MEDS: diphenhydrAMINE 12.5 MG/5 ML UDC 50 MG PO (02:35)
[2023-06-01] MEDS: ATORVASTATIN 20 MG TABLET PO ×2 (02:38→20:10)
[2023-06-01] MEDS: METOPROLOL ER 25 MG TABLET 37.5 MG PO ×3 (02:38→20:10)
[2023-06-01] MEDS: DABIGATRAN 75 MG CAPSULE 150 MG PO ×3 (02:39→20:11)
[2023-06-01] MEDS: INSULIN REGULAR 100 UNIT/ML 3 ML VIAL SUBCUT ×3 (03:40→23:49)
[2023-06-01] MEDS: OXYCODONE IR 5 MG TABLET 7.5 MG PO (03:40)
[2023-06-01 07:30] LABS: Add Manual Diff / Slide Review NO; Basophils Absolute Auto 0 /uL (0-100); Basophils Percent Auto 0.4 % (0-2); Eosinophils Absolute Auto 0 /uL (0-450); Eosinophils Percent Auto 0.1 % (2-4); Hematocrit 40.9 % (41-53); Hemoglobin 13.1 g/dL (13.5-17.5); Lymphocytes Absolute Auto 800 /uL (1100-4500); Lymphocytes Percent Auto 5.7 % (25-40); Mean Corpuscular HGB Conc 32.1 % (30-36); Mean Corpuscular Hemoglobin 25.6 PG (26-34); Mean Corpuscular Volume 79.7 fL (80-100); Monocytes Absolute Auto 200 /uL (0-900); Monocytes Percent Auto 1.4 % (3-14); Neutrophils Absolute Auto 12300 /uL (1500-7000); Neutrophils Percent Auto 92.4 % (50-75); Platelet Count 394 X10^3/uL (150-400); Red Blood Cell Count 5.13 X10^6/uL (4.5-5.9); Red Cell Distribution Width 16.5 % (11.6-14.8); White Blood Cell Count 13.3 X10^3/uL (4.5-11.0)
--- NOTE | 2023-06-01 07:42 | P.HP_ITS ---
History of Present Illness History of Present Illness Date Patient Seen: 06/01/23 Chief complaint: short of breath, chest pain, cough Narrative: From night doctor: 68 years old male with a past medical history of hypertension, diabetes mellitus type 2, atrial flutter, peripheral vascular disease, dyslipidemia and multiple other medical issues presented to the emergency room for chest tightness mainly in the retrosternal/epigastric region nonradiating with episodes of palpitations. No dizziness or loss of consciousness. Feels chills but no temperature. Has shortness of breath on exertion but no edema in the lower extremity. No orthopnea. Has nausea but no vomiting. Denies any bowel movement or bladder issues. Workup included a chest x-ray and EKG that shows no acute process. WBC is 9.2, hemoglobin is 13.6. Blood sugar was 296 but otherwise electrolytes are fairly unremarkable. Viral screen is negative. BNP is 24. Given the multiple cardiac risk factors, he was admitted for further evaluation Additional history: He has had pain for 3 days which is both epigastric and lower chest. The pain increases with breathing to an extent. A CT pulmonary angio was negative. The patient has had anorexia for 3 days. The pain is left upper quadrant and does radiate to the back. The pain feels more like his pancreas than his previous history of cardiac events. He does have a history of cardiac stent and balloon angioplasty with his last event last February. This was done at the [place]. He denies any vomiting. He is moving around a lot due to pain. Troponins have been normal thus far, ECG was normal. A lipase has not been ordered. He has been somewhat constipated and denies any diarrhea or blood per rectum. He has had a dry cough for some time but denies fevers or chills. The pain is not clearly pleuritic. [facility] Medical History Chronic low back pain Coronary artery disease Thyroid nodule Diabetes mellitus Atrial flutter with rapid ventricular response Sepsis Claudication in peripheral vascular disease History of cardioversion (03/07/21) Campylobacter enteritis Exocrine pancreatic insufficiency Acute dehydration Enteritis, enteropathogenic E. coli Paroxysmal atrial fibrillation Psoriasis Narcolepsy GERD (gastroesophageal reflux disease) Hyperlipidemia HTN (hypertension) Insulin dependent diabetes mellitus with complications Peripheral vascular disease Gastroenteritis Pancreatitis Atrial flutter with rapid ventricular response Surgical History History of epididymectomy Hx of biopsy History of femoropopliteal bypass H/O exploratory laparotomy Family History Father Colon cancer Mother Narcolepsy Grandmother Narcolepsy Social History household members: spouse Smoking Status: Former smoker alcohol intake: former Meds Home Medications and Allergies Home Medications Medication Instructions Recorded Confirmed Type clopidogrel 75 mg tablet (Plavix) 75 mg PO QAM ##0 04/15/08 06/01/23 History acetaminophen 325 mg tablet (Pain 500 mg PO Q4HP PRN Pain, Mild 09/25/17 06/01/23 History Relief (acetaminophen)) dabigatran etexilate 150 mg 150 mg PO BID 03/24/18 06/01/23 History capsule (Pradaxa) lisinopril 2.5 mg tablet 2.5 mg PO QAM blood pressure 04/28/19 06/01/23 History insulin lispro 100 unit/mL See Rx Instructions SUBCUT 03/15/20 06/01/23 History subcutaneous solution (Humalog USEASDIRECTD U-100 Insulin) [id number] 1 cap PO QID #120 caps 03/15/20 06/01/23 Rx 24,000-76,000-120,000 unit capsule,delayed rel (Creon) duloxetine 60 mg capsule,delayed 60 mg PO QAM 11/01/21 06/01/23 History release (Cymbalta) ondansetron 8 mg disintegrating 8 mg PO PRN PRN nausea/vomiting 02/25/22 06/01/23 History tablet trazodone 50 mg tablet 50 mg PO BEDTIME PRN insomnia #30 03/03/22 06/01/23 Rx tabs oxycodone 7.5 mg tablet,oral ONLY 7.5 mg PO Q4H PRN pain #30 ea 04/18/22 06/01/23 Rx (not for feeding tubes) morphine 15 mg tablet,extended 15 mg PO .HS 06/06/22 06/01/23 History release (MS Contin) amlodipine 5 mg tablet 10 mg PO DAILY 01/19/23 06/01/23 History rosuvastatin 10 mg tablet 40 mg PO DAILY 01/19/23 06/01/23 History methylphenidate HCl 20 mg tablet 20 mg PO TID #90 tabs 04/13/23 06/01/23 Rx diphenhydramine HCl 12.5 mg/5 mL 50 mg PO Q6H PRN nausea and 06/01/23 06/01/23 History oral elixir vomiting insulin glargine 10 units SUBCUT QAM 06/01/23 06/01/23 History ipratropium-albuterol 3 ml inhalation 4XD PRN For 06/01/23 06/01/23 History shortness of breath metoprolol succinate 25 mg 37.5 mg PO BID 06/01/23 06/01/23 History tablet,extended release 24 hr tadalafil 20 mg PO PRN PRN 1hr before sexual 06/01/23 06/01/23 History activity Allergies Allergy/AdvReac Type Severity Reaction Status Date / Time Iodine and Iodide Containing Allergy Severe Anaphylaxis Verified 03/05/23 18:52 Produc [IODINE AND IODIDE CONTAINING PRODUC] Sulfa (Sulfonamide Allergy Severe Anaphylaxis Verified 03/05/23 18:52 Antibiotics) [SULFA (SULFONAMIDE ANTIBIOTICS)] gabapentin AdvReac Intermediate Dizziness Verified 03/05/23 18:52 Qevzyxo-OUW-ElV Reductase AdvReac Intermediate Verified 03/05/23 18:52 Inhibitor metformin AdvReac Mild Verified 03/05/23 18:52 Review of Systems Review of Systems Narrative: All else reviewed and otherwise unremarkable except as noted in the history and physical. Exam Vital Signs (past 8 hours): - 05/31/23 23:45 05/31/23 23:45 06/01/23 00:00 Temperature Pulse Rate 97 H Respiratory Rate 20 Blood Pressure 148/68 H 144/71 H Pulse Oximetry 95 Oxygen Delivery Method Oxygen Flow Rate 06/01/23 00:00 06/01/23 00:15 06/01/23 00:15 Temperature Pulse Rate 97 H 95 H Respiratory Rate 29 H 21 Blood Pressure 142/72 H Pulse Oximetry 96 97 Oxygen Delivery Method Oxygen Flow Rate 06/01/23 00:30 06/01/23 00:30 06/01/23 00:45 Temperature Pulse Rate 96 H Respiratory Rate 25 H Blood Pressure 144/70 H 127/62 Pulse Oximetry 96 Oxygen Delivery Method Oxygen Flow Rate 06/01/23 00:45 06/01/23 01:00 06/01/23 01:00 Temperature Pulse Rate 97 H 97 H Respiratory Rate 18 19 Blood Pressure 139/66 Pulse Oximetry 95 96 Oxygen Delivery Method Oxygen Flow Rate 06/01/23 01:13 06/01/23 01:15 06/01/23 01:15 Temperature 97.9 F Pulse Rate 99 H Respiratory Rate 23 Blood Pressure 138/68 Pulse Oximetry 96 Oxygen Delivery Method Oxygen Flow Rate 06/01/23 01:30 06/01/23 02:00 06/01/23 02:00 Temperature Pulse Rate 109 H 100 H 101 H Respiratory Rate 20 20 23 Blood Pressure Pulse Oximetry 98 97 96 Oxygen Delivery Method Room Air Oxygen Flow Rate 06/01/23 02:30 06/01/23 02:38 06/01/23 03:00 Temperature Pulse Rate 100 H 101 H 98 H Respiratory Rate 24 22 Blood Pressure 138/68 Pulse Oximetry 96 96 Oxygen Delivery Method Room Air Oxygen Flow Rate 06/01/23 03:30 06/01/23 03:30 06/01/23 04:00 Temperature Pulse Rate 96 H 95 H 96 H Respiratory Rate 23 26 H Blood Pressure 119/67 Pulse Oximetry 97 97 Oxygen Delivery Method Room Air Room Air Oxygen Flow Rate 06/01/23 04:30 06/01/23 04:37 06/01/23 04:37 Temperature Pulse Rate 96 H 96 H Respiratory Rate 23 22 Blood Pressure 126/76 Pulse Oximetry 97 98 Oxygen Delivery Method Room Air Room Air Oxygen Flow Rate 06/01/23 05:00 06/01/23 05:15 06/01/23 05:15 Temperature Pulse Rate 96 H 97 H Respiratory Rate 22 23 Blood Pressure 144/77 H Pulse Oximetry 97 97 Oxygen Delivery Method Oxygen Flow Rate 06/01/23 05:19 Temperature 97.8 F Pulse Rate 96 H Respiratory Rate 24 Blood Pressure 144/77 H Pulse Oximetry 97 Oxygen Delivery Method Oxygen Flow Rate 0 Oxygen Delivery Method Room Air Oxygen Flow Rate 0 Narrative Exam Narrative: NAD, alert and oriented, fluent speech, anxious. He is in writhing in pain. Normocephalic skull, EOMI, anicteric sclera, symmetric pupils. Oropharynx unremarkable, no droop. Neck supple, midline trachea, no adenopathy. Lungs clear, normal rate and effort. Heart regular, no murmur gallop or rub. Abdomen is soft, non distended and there is some tenderness in the left upper quadrant without guarding or rebound. Extremities are free of edema. Skin is free of rash or lesions. Joints are not swollen or deformed. Judgment appears to be normal. Objective ECG Impression: NSR, non-acute. Imaging CT scan - chest: Radiologist's impression: Negative for pulmonary process or pulmonary embolism. He does have calcifications of the left thyroid lobe. Labs 06/01/23 07:19 06/01/23 07:19 Labs: Laboratory Results - last 24 hr 05/31/23 05/31/23 05/31/23 16:11 18:26 22:20 WBC 9.2 RBC 5.40 Hgb 13.6 Hct 42.6 MCV 78.8 L MCH 25.1 L MCHC 31.9 RDW 16.4 H Plt Count 402 H Neut % (Auto) 64.7 Lymph % (Auto) 15.6 L [place] % (Auto) 6.9 Eos % (Auto) 11.5 H Baso % (Auto) 1.3 Neut # (Auto) 6000 Lymph # (Auto) 1400 [place] # (Auto) 600 Eos # (Auto) 1100 H Baso # (Auto) 100 PT 11.9 INR 1.0 Sodium 139 Potassium 4.3 Chloride 104 Carbon Dioxide 25 BUN 15 Creatinine 0.70 Estimated GFR > 60 BUN/Creatinine Ratio 21.4 Glucose 296 H D Lactate 2.4 H 2.1 Calcium 9.4 Total Bilirubin 0.6 AST 21 ALT 23 Alkaline Phosphatase 121 Troponin I < 0.012 < 0.012 NT-Pro-B Natriuret Pep 24 Total Protein 7.4 Albumin 4.5 Globulin 2.9 Albumin/Globulin Ratio 1.6 Chlamy pneumoniae PCR Adenovirus (PCR) B.parapertussis DNA PCR Coronavirus OC43 (PCR) Coronavirus HKU1 (PCR) Coronavirus 229E (PCR) SARS-CoV-2 (PCR) Negative Coronavirus NL63 (PCR) Human Metapneumovir PCR Influenza A (RT-PCR) Flu a negative Influenza Type A (PCR) Influenza B (RT-PCR) Flu b negative Influenza Type B (PCR) M. pneumoniae (PCR) Parainfluenza 1 (PCR) Parainfluenza 2 (PCR) Parainfluenza 3 (PCR) Parainfluenza 4 (PCR) RSV (PCR) Negative Entero/Rhino (PCR) 05/31/23 06/01/23 23:16 00:55 WBC RBC Hgb Hct MCV MCH MCHC RDW Plt Count Neut % (Auto) Lymph % (Auto) [place] % (Auto) Eos % (Auto) Baso % (Auto) Neut # (Auto) Lymph # (Auto) [place] # (Auto) Eos # (Auto) Baso # (Auto) PT INR Sodium Potassium Chloride Carbon Dioxide BUN Creatinine Estimated GFR BUN/Creatinine Ratio Glucose Lactate Calcium Total Bilirubin AST ALT Alkaline Phosphatase Troponin I < 0.012 NT-Pro-B Natriuret Pep Total Protein Albumin Globulin Albumin/Globulin Ratio Chlamy pneumoniae PCR Not detected Adenovirus (PCR) Not detected B.parapertussis DNA PCR Not detected Coronavirus OC43 (PCR) Not detected Coronavirus HKU1 (PCR) Not detected Coronavirus 229E (PCR) Not detected SARS-CoV-2 (PCR) Not detected Coronavirus NL63 (PCR) Not detected Human Metapneumovir PCR Not detected Influenza A (RT-PCR) Influenza Type A (PCR) Not detected Influenza B (RT-PCR) Influenza Type B (PCR) Not detected M. pneumoniae (PCR) Not detected Parainfluenza 1 (PCR) Not detected Parainfluenza 2 (PCR) Not detected Parainfluenza 3 (PCR) Not detected Parainfluenza 4 (PCR) Not detected RSV (PCR) Not detected Entero/Rhino (PCR) Not detected Assessment & Plan Assessment & Plan narrative: 1. Chest and abdomen pain in a patient with a history of coronary artery disease and pancreatitis. Present on admission and active. -Monitoring telemetry and check serial cardiac enzymes. -cancel stress test due to active pain of unclear etiology. -repeat ECG. -treat medically for possible cardiac pain, not able to heparinize as he is on chronic anticoagulation. -we will obtain an echo to rule out wall motion abnormalities. -we will evaluate for pancreatitis with a CT of the abdomen without contrast note he has a history of contrast allergy. -obtain a lipase. Treat with NPO status and pain medications as well as IV fluids. 2. Coronary artery disease status post angioplasty, Present on admission and active. -on statin/Plavix/beta-blockers as above 3. Dyslipidemia, Present on admission and active. -resume home statin and check lipid panel in the morning 4. Hypertension, Present on admission and active. - resume the home metoprolol/lisinopril/amlodipine and watch the blood pressure closely 5. Chronic back pain. Present on admission and active. -resume the home pain medications including MS Contin DVT prophylaxis currently on Pradaxa and ambulatory Per records currently patient is DNR He will require a 2nd midnight of care for ongoing pain and diagnostic evaluation with this complex history of coronary artery disease and recurrent pancreatitis. Time Spent With Patient Time with patient: 30 to 49 minutes with 50% spent counseling/coordinating care Quality MIPS - Admit I confirm the patient?s Advance Care Plan is present, Code status is documented, Surrogate decision maker is in patient?s record [If Yes, STOP here]: Yes MIPS - Meds 'Current medications' to include all prescriptions, [id number] products, herbals, cannabis/cannabidiol products, and vitamin/mineral/dietary (nutritional) supplements. I have utilized all available resources to obtain, update, or review the patient?s current medications. [If Yes, STOP here]: Yes
[2023-06-01 07:45] LABS: Alanine Aminotransferase 23 IU/L (<50); Albumin 4.4 g/dL (3.5-5.0); Albumin Globulin Ratio 1.5 (1.0-2.8); Alkaline Phosphatase 100 U/L (38-126); Aspartate Aminotransferase 22 IU/L (17-59); BUN Creatinine Ratio 27.1 (6-22); Bilirubin Total 0.6 mg/dL (0.2-1.3); Blood Urea Nitrogen 19 mg/dL (9-20); Calcium 9.3 mg/dL (8.4-10.2); Carbon Dioxide 23 mmol/L (22-32); Chloride 105 mmol/L (98-107); Cholesterol 222 mg/dL (140-199); Estimated Glomerular Filt Rate > 60 mL/min (>60); Glucose 328 mg/dL (80-110); HDL Cholesterol 37 mg/dL (40-60); HEMOLYSIS < 15 (0-50); LDL Cholesterol Calculated 160 mg/dL (<100); Magnesium 1.6 mg/dL (1.6-2.3); Potassium 4.3 mmol/L (3.4-5.1); Sodium 137 mmol/L (137-145); Total Protein 7.4 g/dL (6.3-8.2); Triglycerides 127 mg/dL (35-150)
[2023-06-01] MEDS: ONDANSETRON 4 MG/2 ML INJ IV (07:53)
[2023-06-01 07:54] LABS: NT-proBNP (BNP-Adult 18+) 39 pg/mL (<125)
[2023-06-01 07:56] LABS: Troponin I < 0.012 ng/mL (0.01-0.034)
[2023-06-01 08:59] LABS: Lipase 61 U/L (23-300)
[2023-06-01] MEDS: HYDROMORPHONE 1 MG INJ IV ×6 (09:50→23:33)
[2023-06-01] MEDS: AMLODIPINE 5 MG TABLET 10 MG PO (10:03)
[2023-06-01] MEDS: DULOXETINE 30 MG CAPSULE 60 MG PO (10:04)
[2023-06-01] MEDS: CLOPIDOGREL 75 MG TABLET PO (10:04)
[2023-06-01] MEDS: lisinopriL 5 MG TABLET 2.5 MG PO (10:05)
[2023-06-01] MEDS: INSULIN GLARGINE 100 UNIT/ML 3ML PEN 10 UNIT SUBCUT (10:08)
[2023-06-01] MEDS: MAGNESIUM CHLORIDE 64 MG TABLET 128 MG PO (10:16)
[2023-06-01] MEDS: ALBUTEROL/IPRATROPIUM 3 ML AMPUL INH (10:22)
--- NOTE | 2023-06-01 11:27 | DI.ECHO.S_ITS ---
[facility] +---------+ [facility] +---------+ : : [address] : : : : [id number] : : : : Phone: [phone]+ Echocardiogram Report + + :Name: DARY STRAUSS Study Date: 06/01/2023 Height: 70 in : :[facility] ReadingLocation: Weight: 185 lb : : Gender: Male BSA: 2.0 m2 : :: 1955 Age: 68 yrs BP: 140/67 mmHg: :Reason For Study: CHEST PAIN : :Ordering Physician: ZACH : :SAHIL Performed By: Vivian Ac : :Referring: SAHIL SERRANO : + + Interpretation Summary The ejection fraction is estimated to be 55-60%. Diastolic parameters suggest probable normal left ventricular diastolic function and normal filling pressures. The right ventricle is normal in size and function. No significant valvular abnormality. Procedure: A two-dimensional transthoracic echocardiogram with color flow and Doppler was performed. The study quality was technically adequate. Comparison is made with the echocardiogram of 02/26/2022. A contrast injection of Definity was performed to improve assessment of LV function. The patient was in sinus rhythm with heart rates between 87-95 bpm during the exam. Left Ventricle: The left ventricle is normal in size and wall thickness. The ejection fraction is estimated to be 55-60%. There are no obvious focal wall motion abnormalities noted but poor endocardial definition reduces the sensitivity for the detection of such. Diastolic parameters suggest probable normal left ventricular diastolic function and normal filling pressures. Right Ventricle: The right ventricle is normal in size and function. Atria: The left atrial size is normal. Right atrial size is normal. There is no Doppler evidence for an interatrial shunt. Mitral Valve: The mitral valve leaflets appear mildly thickened, but open well. There is mild mitral annular calcification. There is trace mitral regurgitation. Aortic Valve: The aortic valve is trileaflet. The aortic valve opens well. There is no aortic valve stenosis. No aortic regurgitation is present. Tricuspid Valve: The tricuspid valve is normal in structure and function. There is trace tricuspid regurgitation. Pulmonic Valve: The pulmonic valve is not well seen, but is grossly normal. There is a trace or physiologic amount of pulmonic regurgitation. Great Vessels: The aortic root is normal size. The dimensions of the ascending aorta are normal. The IVC is of normal diameter and collapses greater than 50% with a sniff. This suggests a low right atrial pressure of 3 mm Hg. Pericardium/ Pleura There is no pericardial effusion. There has been no significant change since the previous study. MMode/2D Measurements & Calculations LVIDd: 4.2 cm LVOT diam: 2.3 cm LVIDs: 2.7 cm Ao root diam: 3.8 cm FS: 34.2 % asc Aorta Diam: 3.2 cm IVSd: 1.1 cm Ao Arch Diam (Prox Trans): 2.1 cm LVPWd: 0.90 cm LV melendez. diameter/BSA (cm/m^2): 2.1 LV sys. diameter/BSA (cm/m^2): 1.4 LA A2 area: 17.5 cm2 RA long axis: 4.8 cm LA A4 area: 18.6 cm2 RA area: 16.4 cm2 LA length (vol): 5.0 cm RA vol: 47.4 ml LA vol: 55.3 ml RA : 23.5 ml/m2 LA vol index: 27.4 ml/m2 IVC diam: 1.6 cm RVD1 (basal): 3.7 cm TAPSE: 2.0 cm Doppler Measurements & Calculations Ao V2 max: 112.7 cm/sec LVOT Max Sharif: 99.8 cm/sec Ao V2 mean: 85.0 cm/sec LV V1 max P.0 mmHg Ao max P.1 mmHg LV V1 VTI: 17.0 cm Ao mean P.1 mmHg BHARAT(I,D): 3.9 cm2 Ao V2 VTI: 18.7 cm BHARAT(V,D): 3.8 cm2 sev ratio: 0.91 BHARAT indexed to BSA (cm^2/m^2): 1.9 MV E max sharif: 59.7 cm/sec PA V2 max: 94.7 cm/sec MV A max sharif: 75.7 cm/sec PA V2 mean: 61.2 cm/sec MV E/A: 0.79 PA mean P.7 mmHg Med Peak E' Sharif: 8.1 cm/sec PA pr(Accel): 39.2 mmHg E/E' med: 7.3 Lat Peak E' Sharif: 10.9 cm/sec E/E' lat: 5.5 E/e' average: 6.4 MV dec time: 0.23 sec SVLVOT): 72.2 ml Reading Physician:PM
--- NOTE | 2023-06-01 13:13 | PC.NURSE ---
IV placement This RN attempted US guided IV placement without success. Patient tolerated IV pokes well, denied pain. 24 G PIV placed to L hand after multiple attempts for access.
[2023-06-01] MEDS: LORazepam 2 MG/ML INJ 1 MG IV (13:46)
[2023-06-01] MEDS: DEXTROSE 5%-0.45% NS 1,000 ML 100 ML IV ×2 (14:23→23:35)
[2023-06-01 14:33] LABS: Troponin I < 0.012 ng/mL (0.01-0.034)
--- NOTE | 2023-06-01 14:50 | DIET.CONS2 ---
Dietary Inpatient Consultation Note Admission Date: 05/31/2023 22:42 68 y M admitted for chest pain/tightness. Nutrition screened for MNA score of 8. Met with pt at bedside. Pt reports working with Jennifer paz in past to discuss food options he can tolerate. Noted in chart pt has been without appetite for 3 days. Pt reported late this morning he has not eaten in around 40 hours. He reports recent weight gain, unable to confirm through chart. Noted for unit host to provide Orgain protein drink per pt desire when NPO is lifted. Will continue to follow and assess needs. Diet: 06/01/23 00:01 NPO Diet Diet Modifications: NPO Type: NPO except for Meds Electronically Signed by: Liliana Olson 06/01/23 14:50 Clinical Dietitian [address] [address]
--- NOTE | 2023-06-01 15:02 | CM.DANOTE ---
Initial DCP Assessment Note Pt is a 68yo male, resident of [place], PMH includes hypertension, diabetes mellitus type 2, atrial flutter, peripheral vascular disease, patient is a w/ agent orange exposure Patient admitted for further work up and monitoring. Patient ambulating in room. 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 No barriers identified at this time to patient's safe discharge home w/family to assist; close outpatient f/u recommended. CM team will plan to follow closely in case any DC needs or concerns arise. RIMA Neville Discharge Planning/Care Management CM Discharge Assessment Start: 06/01/23 15:00 Freq: Status: Active Protocol: Document 06/01/23 15:00 SHERI (Rec: 06/01/23 15:02 SHERI [id number]) Discharge Planning Assessment Assigned Janitor Head RIMA Kruse DPOA/Assigned Designee Name Yisel Diehl, spouse Contact Information [phone] Advance Directives? Yes: Yes- Advance Directive Advance Directives on File Yes History Provided By Patient,Medical Record Has Patient been admitted in last 30 No days? Comment ER visit 05/23/23 for SOB Prior Living Arrangements House Household Members spouse Type of transporation used prior to Drives own vehicle admit Independent with ADL's Yes Is patient alert and oriented? Yes Comment has cane, does not currently use. Barriers to Discharge No Comment Anticipate discharge home. Distant hx of jonatan Discharge Plan Home Transportation Arrangement or supportive family friend will provide transport.
[2023-06-01] MEDS: MORPHINE ER 15 MG TABLET PO (20:09)
[2023-06-01 22:37] LABS: Troponin I < 0.012 ng/mL (0.01-0.034)
[2023-06-02] VITALS (7 sets, daily range): BP systolic 101–140; BP diastolic 56–77; PULSE 77–92; RESP 16–20; TEMP 36.1–36.5; O2SAT 93–99
[2023-06-02] MEDS: HYDROMORPHONE 1 MG INJ IV ×6 (04:07→15:12)
[2023-06-02] MEDS: INSULIN REGULAR 100 UNIT/ML 3 ML VIAL SUBCUT ×2 (06:46→12:51)
[2023-06-02] MEDS: ONDANSETRON 4 MG/2 ML INJ IV (06:51)
[2023-06-02] MEDS: METOPROLOL ER 25 MG TABLET 37.5 MG PO (08:21)
[2023-06-02] MEDS: METHYLPHENIDATE 5 MG TABLET 20 MG PO ×3 (08:22→20:39)
[2023-06-02] MEDS: lisinopriL 5 MG TABLET 2.5 MG PO (08:23)
[2023-06-02] MEDS: AMLODIPINE 5 MG TABLET 10 MG PO (08:23)
[2023-06-02] MEDS: CLOPIDOGREL 75 MG TABLET PO (08:23)
[2023-06-02] MEDS: DULOXETINE 30 MG CAPSULE 60 MG PO (08:24)
[2023-06-02] MEDS: DABIGATRAN 75 MG CAPSULE 150 MG PO ×2 (08:24→20:37)
[2023-06-02] MEDS: INSULIN GLARGINE 100 UNIT/ML 3ML PEN 10 UNIT SUBCUT (08:27)
[2023-06-02 08:53] LABS: MRSA (Nasal) PCR Not Detected (Not Detect)
[2023-06-02] MEDS: HYDROCODONE/ACET 5/325 TABLET 1 TAB PO ×2 (09:29→20:39)
[2023-06-02] MEDS: ONDANSETRON 4 MG ODT 8 MG PO (11:05)
[2023-06-02 11:09] LABS: Add Manual Diff / Slide Review NO; Basophils Absolute Auto 100 /uL (0-100); Eosinophils Absolute Auto 500 /uL (0-450); Eosinophils Percent Auto 5.5 % (2-4); Hematocrit 36.8 % (41-53); Lymphocytes Absolute Auto 1900 /uL (1100-4500); Lymphocytes Percent Auto 22.4 % (25-40); Mean Corpuscular HGB Conc 32.5 % (30-36); Mean Corpuscular Hemoglobin 25.9 PG (26-34); Mean Corpuscular Volume 79.6 fL (80-100); Monocytes Absolute Auto 600 /uL (0-900); Neutrophils Absolute Auto 5500 /uL (1500-7000); Neutrophils Percent Auto 64.1 % (50-75); Platelet Count 389 X10^3/uL (150-400); Red Blood Cell Count 4.63 X10^6/uL (4.5-5.9); Red Cell Distribution Width 16.5 % (11.6-14.8); White Blood Cell Count 8.7 X10^3/uL (4.5-11.0)
[2023-06-02 11:40] LABS: Alanine Aminotransferase 21 IU/L (<50); Albumin 4.1 g/dL (3.5-5.0); Albumin Globulin Ratio 1.5 (1.0-2.8); Alkaline Phosphatase 86 U/L (38-126); Aspartate Aminotransferase 29 IU/L (17-59); BUN Creatinine Ratio 21.1 (6-22); Bilirubin Total 0.7 mg/dL (0.2-1.3); Blood Urea Nitrogen 15 mg/dL (9-20); Calcium 8.7 mg/dL (8.4-10.2); Carbon Dioxide 27 mmol/L (22-32); Chloride 105 mmol/L (98-107); Estimated Glomerular Filt Rate > 60 mL/min (>60); Globulin 2.8 g/dL (1.7-4.1); Glucose 234 mg/dL (80-110); HEMOLYSIS 21 (0-50); Potassium 4.1 mmol/L (3.4-5.1); Sodium 136 mmol/L (137-145); Total Protein 6.9 g/dL (6.3-8.2)
[2023-06-02 11:41] LABS: BUN Creatinine Ratio 20.8 (6-22); Blood Urea Nitrogen 15 mg/dL (9-20); C-Reactive Protein Quant 1.2 mg/dL (<1.0); Calcium 8.7 mg/dL (8.4-10.2); Carbon Dioxide 26 mmol/L (22-32); Chloride 104 mmol/L (98-107); Estimated Glomerular Filt Rate > 60 mL/min (>60); Glucose 235 mg/dL (80-110); HEMOLYSIS 21 (0-50); Lipase 119 U/L (23-300); Potassium 4.1 mmol/L (3.4-5.1); Sodium 136 mmol/L (137-145)
[2023-06-02] MEDS: DEXTROSE 5%-0.45% NS 1,000 ML 100 ML IV (11:44)
--- NOTE | 2023-06-02 12:16 | CM.DPNOTE ---
DCP Note DIGITAL MEDIA COORDINATOR reviewed EMR. Per hospitalist, surg consulted due to potential appendicitis. Hospitalists reports that pt has a large appendix- med POC unclear pending surg input. Per RN, pt in a lot of abdominal pain today. From previous CM notes, anticipate home with spouse at dc no additional needs identified. Plan: medical POC continues to unfold. Per current chart review/presentation, no identified CM needs. anticipate home with spouse when stable. CM team will continue to follow as needed. RIMA Burrell
--- NOTE | 2023-06-02 13:49 | PM.CN ---
History of Present Illness Consult details Date Patient Seen: 06/02/23 Time Patient Seen: 13:49 Chief complaint: short of breath, chest pain, cough Narrative: Alfredo is a 68-year-old man who presented with epigastric pain and shortness of breath. He has had 2 recent myocardial infarctions within the past 6 months. Has a remote history of chronic pancreatitis and he had a laparoscopic cholecystectomy by me a few years ago. As part of his workup he received a CT scan of the abdomen pelvis last night. Although the radiologist's report is not available to me at this time apparently there was some question about the appendix being slightly dilated. My interpretation of the CT scan is that the appendix is elongated but shows no signs of inflammation. Multiple prior CT scans going back to 2020 were reviewed and the appendix looks identical on the current CT scan as it is does on all the prior scans. Meds Home Medications and Allergies Home Medications Medication Instructions Recorded Confirmed Type clopidogrel 75 mg tablet (Plavix) 75 mg PO QAM ##0 04/15/08 06/01/23 History acetaminophen 325 mg tablet (Pain 500 mg PO Q4HP PRN Pain, Mild 09/25/17 06/01/23 History Relief (acetaminophen)) dabigatran etexilate 150 mg 150 mg PO BID 03/24/18 06/01/23 History capsule (Pradaxa) lisinopril 2.5 mg tablet 2.5 mg PO QAM blood pressure 04/28/19 06/01/23 History insulin lispro 100 unit/mL See Rx Instructions SUBCUT 03/15/20 06/01/23 History subcutaneous solution (Humalog USEASDIRECTD U-100 Insulin) [id number] 1 cap PO QID #120 caps 03/15/20 06/01/23 Rx 24,000-76,000-120,000 unit capsule,delayed rel (Creon) duloxetine 60 mg capsule,delayed 60 mg PO QAM 11/01/21 06/01/23 History release (Cymbalta) ondansetron 8 mg disintegrating 8 mg PO PRN PRN nausea/vomiting 02/25/22 06/01/23 History tablet trazodone 50 mg tablet 50 mg PO BEDTIME PRN insomnia #30 03/03/22 06/01/23 Rx tabs oxycodone 7.5 mg tablet,oral ONLY 7.5 mg PO Q4H PRN pain #30 ea 04/18/22 06/01/23 Rx (not for feeding tubes) morphine 15 mg tablet,extended 15 mg PO .HS 06/06/22 06/01/23 History release (MS Contin) amlodipine 5 mg tablet 10 mg PO DAILY 01/19/23 06/01/23 History rosuvastatin 10 mg tablet 40 mg PO DAILY 01/19/23 06/01/23 History methylphenidate HCl 20 mg tablet 20 mg PO TID #90 tabs 04/13/23 06/01/23 Rx diphenhydramine HCl 12.5 mg/5 mL 50 mg PO Q6H PRN nausea and 06/01/23 06/01/23 History oral elixir vomiting insulin glargine 10 units SUBCUT QAM 06/01/23 06/01/23 History ipratropium-albuterol 3 ml inhalation 4XD PRN For 06/01/23 06/01/23 History shortness of breath metoprolol succinate 25 mg 37.5 mg PO BID 06/01/23 06/01/23 History tablet,extended release 24 hr tadalafil 20 mg PO PRN PRN 1hr before sexual 06/01/23 06/01/23 History activity Allergies Allergy/AdvReac Type Severity Reaction Status Date / Time Iodine and Iodide Containing Allergy Severe Anaphylaxis Verified 03/05/23 18:52 Produc [IODINE AND IODIDE CONTAINING PRODUC] Sulfa (Sulfonamide Allergy Severe Anaphylaxis Verified 03/05/23 18:52 Antibiotics) [SULFA (SULFONAMIDE ANTIBIOTICS)] gabapentin AdvReac Intermediate Dizziness Verified 03/05/23 18:52 [id number] Reductase AdvReac Intermediate Verified 03/05/23 18:52 Inhibitor metformin AdvReac Mild Verified 03/05/23 18:52 Exam Vital Signs (past 8 hours): - 06/02/23 06:31 06/02/23 07:00 06/02/23 08:00 Temperature 97.4 F L 97.2 F L Pulse Rate 92 H 83 Respiratory Rate 18 16 Blood Pressure 140/77 129/67 Pulse Oximetry 98 99 Oxygen Delivery Method Room Air Oxygen Flow Rate 0 06/02/23 08:57 Temperature Pulse Rate 80 Respiratory Rate Blood Pressure 129/65 Pulse Oximetry Oxygen Delivery Method Oxygen Flow Rate Oxygen Delivery Method Room Air Oxygen Flow Rate 0 Narrative Exam Narrative: Abdomen distended with generalized tenderness but no specific McBurney's point tenderness Objective Labs 06/02/23 11:00 06/02/23 11:00 Labs: Laboratory Results - last 24 hr 06/01/23 06/01/23 06/02/23 14:05 22:07 05:24 WBC RBC Hgb Hct MCV MCH MCHC RDW Plt Count Neut % (Auto) Lymph % (Auto) [place] % (Auto) Eos % (Auto) Baso % (Auto) Neut # (Auto) Lymph # (Auto) [place] # (Auto) Eos # (Auto) Baso # (Auto) Sodium Potassium Chloride Carbon Dioxide BUN Creatinine Estimated GFR BUN/Creatinine Ratio Glucose Calcium Total Bilirubin AST ALT Alkaline Phosphatase Troponin I < 0.012 < 0.012 C-Reactive Protein Total Protein Albumin Globulin Albumin/Globulin Ratio Lipase Nasal Screen MRSA (PCR) Not detected 06/02/23 06/02/23 06/02/23 11:00 11:00 11:00 WBC 8.7 RBC 4.63 Hgb 12.0 L Hct 36.8 L MCV 79.6 L MCH 25.9 L MCHC 32.5 RDW 16.5 H Plt Count 389 Neut % (Auto) 64.1 D Lymph % (Auto) 22.4 L [place] % (Auto) 7.0 Eos % (Auto) 5.5 H Baso % (Auto) 1.0 Neut # (Auto) 5500 Lymph # (Auto) 1900 [place] # (Auto) 600 Eos # (Auto) 500 H Baso # (Auto) 100 Sodium 136 L 136 L Potassium 4.1 4.1 Chloride 104 Carbon Dioxide BUN Creatinine Estimated GFR BUN/Creatinine Ratio Glucose Calcium Total Bilirubin AST ALT Alkaline Phosphatase Troponin I C-Reactive Protein Total Protein Albumin Globulin Albumin/Globulin Ratio Lipase Nasal Screen MRSA (PCR) 06/02/23 06/02/23 06/02/23 11:00 11:00 11:00 WBC RBC Hgb Hct MCV MCH MCHC RDW Plt Count Neut % (Auto) Lymph % (Auto) [place] % (Auto) Eos % (Auto) Baso % (Auto) Neut # (Auto) Lymph # (Auto) [place] # (Auto) Eos # (Auto) Baso # (Auto) Sodium Potassium Chloride 105 Carbon Dioxide 26 27 BUN 15 15 Creatinine 0.72 Estimated GFR BUN/Creatinine Ratio Glucose Calcium Total Bilirubin AST ALT Alkaline Phosphatase Troponin I C-Reactive Protein Total Protein Albumin Globulin Albumin/Globulin Ratio Lipase Nasal Screen MRSA (PCR) 06/02/23 06/02/23 06/02/23 11:00 11:00 11:00 WBC RBC Hgb Hct MCV MCH MCHC RDW Plt Count Neut % (Auto) Lymph % (Auto) [place] % (Auto) Eos % (Auto) Baso % (Auto) Neut # (Auto) Lymph # (Auto) [place] # (Auto) Eos # (Auto) Baso # (Auto) Sodium Potassium Chloride Carbon Dioxide BUN Creatinine 0.71 Estimated GFR > 60 > 60 BUN/Creatinine Ratio 20.8 21.1 Glucose 235 H Calcium Total Bilirubin AST ALT Alkaline Phosphatase Troponin I C-Reactive Protein Total Protein Albumin Globulin Albumin/Globulin Ratio Lipase Nasal Screen MRSA (PCR) 06/02/23 06/02/23 11:00 11:00 WBC RBC Hgb Hct MCV MCH MCHC RDW Plt Count Neut % (Auto) Lymph % (Auto) [place] % (Auto) Eos % (Auto) Baso % (Auto) Neut # (Auto) Lymph # (Auto) [place] # (Auto) Eos # (Auto) Baso # (Auto) Sodium Potassium Chloride Carbon Dioxide BUN Creatinine Estimated GFR BUN/Creatinine Ratio Glucose 234 H Calcium 8.7 8.7 Total Bilirubin 0.7 AST 29 ALT 21 Alkaline Phosphatase 86 Troponin I C-Reactive Protein 1.2 H Total Protein 6.9 Albumin 4.1 Globulin 2.8 Albumin/Globulin Ratio 1.5 Lipase 119 D Nasal Screen MRSA (PCR) [facility] Medical History Chronic low back pain Coronary artery disease Thyroid nodule Diabetes mellitus Atrial flutter with rapid ventricular response Sepsis Claudication in peripheral vascular disease History of cardioversion (03/07/21) Campylobacter enteritis Exocrine pancreatic insufficiency Acute dehydration Enteritis, enteropathogenic E. coli Paroxysmal atrial fibrillation Psoriasis Narcolepsy GERD (gastroesophageal reflux disease) Hyperlipidemia HTN (hypertension) Insulin dependent diabetes mellitus with complications Peripheral vascular disease Gastroenteritis Pancreatitis Atrial flutter with rapid ventricular response Surgical History History of epididymectomy Hx of biopsy History of femoropopliteal bypass H/O exploratory laparotomy Family History Father Colon cancer Mother Narcolepsy Grandmother Narcolepsy Social History household members: spouse Tobacco & Substance Use Smoking Status: Former smoker alcohol intake: former Assessment & Plan Assessment and plan (1) Exertional dyspnea: Status: Acute Plan I have no concern that his appendix could be causing any of his symptoms. I recommend continuing dyspnea workup.
[2023-06-02] MEDS: LORazepam 2 MG/ML INJ 1 MG IV (15:16)
[2023-06-02] MEDS: CREON 6000 UNIT 1 EACH PO (15:34)
[2023-06-02] MEDS: PROCHLORPERAZINE 10 MG/2 ML VIAL 5 MG IV (16:51)
--- NOTE | 2023-06-02 19:30 | PM.PN.1 ---
Subjective Subjective Interval history: 68-year-old gentleman with hypertension, diabetes mellitus type 2, atrial flutter, peripheral vascular disease, hyperlipidemia, coronary artery disease,, history of pancreatitis with ongoing pancreatic insufficiency, who was admitted with for abdominal pain and shortness of breath. Yesterday, he noted his symptoms were more consistent with his usual pancreatitis episodes rather than cardiac episodes. He noted he was passing stools that showed undigested material. He states he is very cautious about what he eats and keeps a journal. He typically gets pancreatitis flares if he eats too much or does not take adequate enzymes. He notes some ongoing nausea and requests to have his Zofran dose increased. He has no chest pain. He is asking to have his diet advanced. Exam Vital Signs (past 8 hours): Oxygen Delivery Method Room Air Oxygen Flow Rate 0 Narrative Exam Narrative: GEN: Middle-aged male, Alert and oriented x 3, NAD, very pleasant HEENT:NC, Face symmetric CHEST: Respiratory excursions symmetric, CTAB CV: RRR, no M/R/G ABD: Soft, BT present in all 4 quadrants, no organomegaly or masses, he did have some tenderness in the left lower quadrant with palpation as well as generalized upper abdominal pain with palpation EXTR: warm, well perfused, no C/C/E SKIN: warm and dry, no rash NEURO: Alert and oriented x 3, nonfocal Objective Labs 06/02/23 11:00 06/02/23 11:00 Labs: Laboratory Results - last 24 hr 06/01/23 06/02/23 06/02/23 22:07 05:24 11:00 WBC 8.7 RBC 4.63 Hgb 12.0 L Hct 36.8 L MCV 79.6 L MCH 25.9 L MCHC 32.5 RDW 16.5 H Plt Count 389 Neut % (Auto) 64.1 D Lymph % (Auto) 22.4 L [place] % (Auto) 7.0 Eos % (Auto) 5.5 H Baso % (Auto) 1.0 Neut # (Auto) 5500 Lymph # (Auto) 1900 [place] # (Auto) 600 Eos # (Auto) 500 H Baso # (Auto) 100 Sodium 136 L Potassium Chloride Carbon Dioxide BUN Creatinine Estimated GFR BUN/Creatinine Ratio Glucose Calcium Total Bilirubin AST ALT Alkaline Phosphatase Troponin I < 0.012 C-Reactive Protein Total Protein Albumin Globulin Albumin/Globulin Ratio Lipase Nasal Screen MRSA (PCR) Not detected 06/02/23 06/02/23 06/02/23 11:00 11:00 11:00 WBC RBC Hgb Hct MCV MCH MCHC RDW Plt Count Neut % (Auto) Lymph % (Auto) [place] % (Auto) Eos % (Auto) Baso % (Auto) Neut # (Auto) Lymph # (Auto) [place] # (Auto) Eos # (Auto) Baso # (Auto) Sodium 136 L Potassium 4.1 4.1 Chloride 104 105 Carbon Dioxide 26 BUN Creatinine Estimated GFR BUN/Creatinine Ratio Glucose Calcium Total Bilirubin AST ALT Alkaline Phosphatase Troponin I C-Reactive Protein Total Protein Albumin Globulin Albumin/Globulin Ratio Lipase Nasal Screen MRSA (PCR) 06/02/23 06/02/23 06/02/23 11:00 11:00 11:00 WBC RBC Hgb Hct MCV MCH MCHC RDW Plt Count Neut % (Auto) Lymph % (Auto) [place] % (Auto) Eos % (Auto) Baso % (Auto) Neut # (Auto) Lymph # (Auto) [place] # (Auto) Eos # (Auto) Baso # (Auto) Sodium Potassium Chloride Carbon Dioxide 27 BUN 15 15 Creatinine 0.72 0.71 Estimated GFR > 60 BUN/Creatinine Ratio Glucose Calcium Total Bilirubin AST ALT Alkaline Phosphatase Troponin I C-Reactive Protein Total Protein Albumin Globulin Albumin/Globulin Ratio Lipase Nasal Screen MRSA (PCR) 06/02/23 06/02/23 06/02/23 11:00 11:00 11:00 WBC RBC Hgb Hct MCV MCH MCHC RDW Plt Count Neut % (Auto) Lymph % (Auto) [place] % (Auto) Eos % (Auto) Baso % (Auto) Neut # (Auto) Lymph # (Auto) [place] # (Auto) Eos # (Auto) Baso # (Auto) Sodium Potassium Chloride Carbon Dioxide BUN Creatinine Estimated GFR > 60 BUN/Creatinine Ratio 20.8 21.1 Glucose 235 H 234 H Calcium 8.7 Total Bilirubin AST ALT Alkaline Phosphatase Troponin I C-Reactive Protein Total Protein Albumin Globulin Albumin/Globulin Ratio Lipase Nasal Screen MRSA (PCR) 06/02/23 11:00 WBC RBC Hgb Hct MCV MCH MCHC RDW Plt Count Neut % (Auto) Lymph % (Auto) [place] % (Auto) Eos % (Auto) Baso % (Auto) Neut # (Auto) Lymph # (Auto) [place] # (Auto) Eos # (Auto) Baso # (Auto) Sodium Potassium Chloride Carbon Dioxide BUN Creatinine Estimated GFR BUN/Creatinine Ratio Glucose Calcium 8.7 Total Bilirubin 0.7 AST 29 ALT 21 Alkaline Phosphatase 86 Troponin I C-Reactive Protein 1.2 H Total Protein 6.9 Albumin 4.1 Globulin 2.8 Albumin/Globulin Ratio 1.5 Lipase 119 D Nasal Screen MRSA (PCR) [facility] Medical History Chronic low back pain Coronary artery disease Thyroid nodule Diabetes mellitus Atrial flutter with rapid ventricular response Sepsis Claudication in peripheral vascular disease History of cardioversion (03/07/21) Campylobacter enteritis Exocrine pancreatic insufficiency Acute dehydration Enteritis, enteropathogenic E. coli Paroxysmal atrial fibrillation Psoriasis Narcolepsy GERD (gastroesophageal reflux disease) Hyperlipidemia HTN (hypertension) Insulin dependent diabetes mellitus with complications Peripheral vascular disease Gastroenteritis Pancreatitis Atrial flutter with rapid ventricular response Surgical History History of epididymectomy Hx of biopsy History of femoropopliteal bypass H/O exploratory laparotomy Family History Father Colon cancer Mother Narcolepsy Grandmother Narcolepsy Social History household members: spouse Smoking Status: Former smoker alcohol intake: former Assessment & Plan Assessment & Plan narrative: 1. Chest and abdominal pain in a patient with known coronary artery disease as well as pancreatitis CT of the abdomen was done which did not show evidence of pancreatitis, but did raise the question for possible appendicitis. His exam is not consistent with appendicitis. A general surgical consultation has been requested. Troponins were negative x6. His discomfort is all abdominal at this time. Will repeat labs inclusive of a lipase and CRP. However, his pancreas on his CT did not show any evidence of inflammation. We will continue NPO status pending surgical evaluation. 2. Coronary artery disease with previous angioplasty On goal-directed treatment. Negative troponins as noted. 3. Hyperlipidemia On statin therapy at baseline. 4. Hypertension On metoprolol, lisinopril, amlodipine at baseline. 5. Chronic back pain On extended release morphine at baseline. Code status DNR Prophylaxis On Pradaxa Disposition Pending
[2023-06-02] MEDS: ATORVASTATIN 20 MG TABLET PO (20:37)
[2023-06-02] MEDS: MORPHINE ER 15 MG TABLET PO (20:39)
[2023-06-02] MEDS: OXYCODONE IR 5 MG TABLET 7.5 MG PO (23:12)
[2023-06-03] VITALS (11 sets, daily range): BP systolic 98–122; BP diastolic 51–66; PULSE 62–90; RESP 16–18; TEMP 36.1–36.3; O2SAT 94–98
[2023-06-03 04:35] LABS: Add Manual Diff / Slide Review NO; Basophils Absolute Auto 0 /uL (0-100); Basophils Percent Auto 0.4 % (0-2); Eosinophils Absolute Auto 800 /uL (0-450); Eosinophils Percent Auto 12.8 % (2-4); Hematocrit 37.5 % (41-53); Hemoglobin 12.2 g/dL (13.5-17.5); Lymphocytes Absolute Auto 1400 /uL (1100-4500); Lymphocytes Percent Auto 22.3 % (25-40); Mean Corpuscular HGB Conc 32.6 % (30-36); Mean Corpuscular Hemoglobin 25.8 PG (26-34); Monocytes Absolute Auto 500 /uL (0-900); Monocytes Percent Auto 8.9 % (3-14); Neutrophils Absolute Auto 3400 /uL (1500-7000); Neutrophils Percent Auto 55.6 % (50-75); Platelet Count 349 X10^3/uL (150-400); Red Blood Cell Count 4.74 X10^6/uL (4.5-5.9); Red Cell Distribution Width 16.6 % (11.6-14.8); White Blood Cell Count 6.1 X10^3/uL (4.5-11.0)
[2023-06-03 04:46] LABS: Blood Urea Nitrogen 13 mg/dL (9-20); Calcium 8.7 mg/dL (8.4-10.2); Carbon Dioxide 24 mmol/L (22-32); Chloride 107 mmol/L (98-107); Estimated Glomerular Filt Rate > 60 mL/min (>60); Glucose 202 mg/dL (80-110); HEMOLYSIS < 15 (0-50); Potassium 3.9 mmol/L (3.4-5.1); Sodium 136 mmol/L (137-145)
[2023-06-03] MEDS: OXYCODONE IR 5 MG TABLET 7.5 MG PO ×2 (05:45→10:36)
[2023-06-03] MEDS: INSULIN REGULAR 100 UNIT/ML 3 ML VIAL SUBCUT ×4 (07:43→20:41)
[2023-06-03] MEDS: INSULIN GLARGINE 100 UNIT/ML 3ML PEN 15 UNIT SUBCUT (08:04)
[2023-06-03] MEDS: DABIGATRAN 75 MG CAPSULE 150 MG PO ×2 (08:04→20:40)
[2023-06-03] MEDS: DULOXETINE 30 MG CAPSULE 60 MG PO (08:04)
[2023-06-03] MEDS: METOPROLOL ER 25 MG TABLET 37.5 MG PO (08:05)
[2023-06-03] MEDS: lisinopriL 5 MG TABLET 2.5 MG PO (08:05)
[2023-06-03] MEDS: AMLODIPINE 5 MG TABLET 10 MG PO (08:06)
[2023-06-03] MEDS: CLOPIDOGREL 75 MG TABLET PO (08:10)
[2023-06-03] MEDS: METHYLPHENIDATE 5 MG TABLET 20 MG PO ×3 (08:28→20:40)
[2023-06-03] MEDS: ALBUTEROL/IPRATROPIUM 3 ML AMPUL INH ×2 (11:55→21:16)
[2023-06-03] MEDS: NITROGLYCERIN 0.4 MG SL TAB SL (12:36)
[2023-06-03] MEDS: LORazepam 0.5 MG TABLET 1 MG PO (12:45)
[2023-06-03] MEDS: ONDANSETRON 4 MG ODT 8 MG PO ×2 (12:49→21:05)
[2023-06-03] MEDS: HYDROMORPHONE 2 MG TABLET PO (13:20)
[2023-06-03] MEDS: HYDROMORPHONE 1 MG INJ IV (15:05)
[2023-06-03] MEDS: ONDANSETRON 4 MG/2 ML INJ 8 MG IV (16:46)
[2023-06-03] MEDS: LORazepam 2 MG/ML INJ 1 MG IV (16:49)
--- NOTE | 2023-06-03 18:32 | PM.PN.1 ---
Subjective Subjective Interval history: Patient having abd pain after eating a popsicle. Lost IV so hasn't had dilaudid IV. Po dilaudid and ativan ordered for anxiety. Exam Vital Signs (past 8 hours): - 06/03/23 11:55 06/03/23 12:00 06/03/23 12:36 Temperature 97.3 F L 97.1 F L Pulse Rate 74 83 62 Respiratory Rate 18 16 Blood Pressure 122/66 98/51 L Pulse Oximetry 94 94 Oxygen Delivery Method Room Air Oxygen Flow Rate 0 0 Fraction of Inspired Oxygen 21 06/03/23 16:00 Temperature 97.4 F L Pulse Rate 90 Respiratory Rate 16 Blood Pressure 121/66 Pulse Oximetry 96 Oxygen Delivery Method Oxygen Flow Rate 0 Fraction of Inspired Oxygen Fraction of Inspired Oxygen 21 SaO2/FiO2 Ratio 447 Oxygen Delivery Method Room Air Oxygen Flow Rate 0 Narrative Exam Narrative: GEN: Middle-aged male, Alert and oriented x 3, NAD, anxious and diaphoretic HEENT:NC, Face symmetric CHEST: Respiratory excursions symmetric, CTAB CV: RRR, no M/R/G ABD: Soft, BT present in all 4 quadrants, no organomegaly or masses, pain to palpation of epigastric area EXTR: warm, well perfused, no C/C/E SKIN: warm and dry, no rash NEURO: Alert and oriented x 3, nonfocal Objective Labs 06/03/23 04:24 06/03/23 04:24 Labs: Laboratory Results - last 24 hr 06/03/23 04:24 WBC 6.1 RBC 4.74 Hgb 12.2 L Hct 37.5 L MCV 79.0 L MCH 25.8 L MCHC 32.6 RDW 16.6 H Plt Count 349 Neut % (Auto) 55.6 Lymph % (Auto) 22.3 L [place] % (Auto) 8.9 Eos % (Auto) 12.8 H Baso % (Auto) 0.4 Neut # (Auto) 3400 Lymph # (Auto) 1400 [place] # (Auto) 500 Eos # (Auto) 800 H Baso # (Auto) 0 Sodium 136 L Potassium 3.9 Chloride 107 Carbon Dioxide 24 BUN 13 Creatinine 0.59 L Estimated GFR > 60 BUN/Creatinine Ratio 22.0 Glucose 202 H Calcium 8.7 PFSH Medical History Chronic low back pain Coronary artery disease Thyroid nodule Diabetes mellitus Atrial flutter with rapid ventricular response Sepsis Claudication in peripheral vascular disease History of cardioversion (03/07/21) Campylobacter enteritis Exocrine pancreatic insufficiency Acute dehydration Enteritis, enteropathogenic E. coli Paroxysmal atrial fibrillation Psoriasis Narcolepsy GERD (gastroesophageal reflux disease) Hyperlipidemia HTN (hypertension) Insulin dependent diabetes mellitus with complications Peripheral vascular disease Gastroenteritis Pancreatitis Atrial flutter with rapid ventricular response Surgical History History of epididymectomy Hx of biopsy History of femoropopliteal bypass H/O exploratory laparotomy Family History Father Colon cancer Mother Narcolepsy Grandmother Narcolepsy Social History household members: spouse Smoking Status: Former smoker alcohol intake: former Assessment & Plan Assessment & Plan narrative: 1. Chest and abdominal pain in a patient with known coronary artery disease as well as pancreatitis CT of the abdomen was done which did not show evidence of pancreatitis, but did raise the question for possible appendicitis. His exam is not consistent with appendicitis. A general surgical consultation was completed and they did not think appendicitis. Troponins were negative x6. His discomfort is all abdominal at this time. Likely due to acute on chronic pancreatitis which can have normal lipase levels. Continue IVF and pain control. Advance diet slowly. 2. Coronary artery disease with previous angioplasty On goal-directed treatment. Negative troponins as noted. 3. Hyperlipidemia On statin therapy at baseline. 4. Hypertension On metoprolol, lisinopril, amlodipine at baseline. 5. Chronic back pain On extended release morphine at baseline. 6. Anxiety Ativan IV/po PRN as patient very anxious Code status DNR Prophylaxis On Pradaxa Disposition 2-3 days pending improvement in abd pain
[2023-06-03] MEDS: DEXTROSE 5%-0.45% NS 1,000 ML 100 ML IV (19:26)
[2023-06-03] MEDS: MORPHINE ER 15 MG TABLET PO (20:40)
[2023-06-03] MEDS: ATORVASTATIN 20 MG TABLET PO (20:42)
[2023-06-04] VITALS (8 sets, daily range): BP systolic 104–125; BP diastolic 53–76; PULSE 81–104; RESP 17–22; TEMP 35.9–36.9; O2SAT 95–98
--- NOTE | 2023-06-04 00:03 | PC.NURSE ---
Patient is alert and oriented. Breath sounds coarse with coarse sounding, non-productive cough. States he is SOB with exertion but not SOB at rest currently. Cough is exacerbated by deep breathing. RA sat is 95%; is on continuous oximetry. HRR with telemetry reading of SR. BP low at 98/64 so Metoprolol held tonight. Complained of nausea and was given Zofran ODT with resolution of nausea. Does complain of mostly epigastric/upper abdominal pain and was medicated earlier with scheduled Morphine and fell asleep after. BT present and is passing flatus. Is voiding per urinal and denied dysuria. Able to move himself in bed. Up to bathroom with SBA. Has chronic neuropathy in bilateral feet/ankles which is unchanged. Bilateral calf SCD's applied at start of shift and is tolerating them well. Fall risk score is moderate and bed alarm is activated.
[2023-06-04] MEDS: DEXTROSE 5%-0.45% NS 1,000 ML 100 ML IV ×2 (05:28→18:15)
[2023-06-04] MEDS: HYDROMORPHONE 2 MG TABLET PO ×3 (05:47→20:49)
[2023-06-04] MEDS: guaiFENesin Solution 100 MG/5 ML UDC PO ×3 (05:47→16:36)
[2023-06-04] MEDS: BENZONATATE 100 MG CAPSULE PO ×2 (05:47→16:36)
--- NOTE | 2023-06-04 07:53 | PM.PN.1 ---
Subjective Subjective Interval history: His pain is really focused now in the midepigastric region with minimal radiation. There is no component of chest pain. No associated nausea, diaphoresis, or dyspnea. He is improving. He is able to take some tea without difficulty. Exam Vital Signs (past 8 hours): - 06/04/23 00:17 06/04/23 05:33 Temperature 98.2 F 98.1 F Pulse Rate 86 81 Respiratory Rate 17 19 Blood Pressure 111/64 104/55 L Pulse Oximetry 97 97 Oxygen Flow Rate 0 0 Fraction of Inspired Oxygen 21 SaO2/FiO2 Ratio 447 Oxygen Delivery Method Room Air Oxygen Flow Rate 0 Narrative Exam Narrative: NAD, alert and oriented. Fluent speech. Lungs are clear, normal rate and effort. Heart is regular, no murmur gallop or rub. Abdomen is soft, non distended. There is minimal epigastric tenderness and no right or left upper quadrant tenderness. Extremities are free of edema. Objective Imaging CT scan - abdomen: Radiologist's impression: CT result is not in [facility] however it did reveal an abnormal appearing appendix as well as a normal-appearing pancreas and no other acute abnormalities. Labs 06/03/23 04:24 06/03/23 04:24 [facility] Medical History Chronic low back pain Coronary artery disease Thyroid nodule Diabetes mellitus Atrial flutter with rapid ventricular response Sepsis Claudication in peripheral vascular disease History of cardioversion (03/07/21) Campylobacter enteritis Exocrine pancreatic insufficiency Acute dehydration Enteritis, enteropathogenic E. coli Paroxysmal atrial fibrillation Psoriasis Narcolepsy GERD (gastroesophageal reflux disease) Hyperlipidemia HTN (hypertension) Insulin dependent diabetes mellitus with complications Peripheral vascular disease Gastroenteritis Pancreatitis Atrial flutter with rapid ventricular response Surgical History History of epididymectomy Hx of biopsy History of femoropopliteal bypass H/O exploratory laparotomy Family History Father Colon cancer Mother Narcolepsy Grandmother Narcolepsy Social History household members: spouse Smoking Status: Former smoker alcohol intake: former Assessment & Plan Assessment & Plan narrative: 1. Chest and abdominal pain in a patient with known coronary artery disease as well as pancreatitis CT of the abdomen was done which did not show evidence of pancreatitis, but did raise the question for possible appendicitis. His exam is not consistent with appendicitis. A general surgical consultation was completed and they did not think appendicitis. Troponins were negative x6. His discomfort is all abdominal at this time. Likely due to acute on chronic pancreatitis which can have normal lipase levels. Continue IVF and pain control. Advance diet slowly. -slow advance of diet. With Creon. 2. Coronary artery disease with previous angioplasty, stable. On goal-directed treatment. Negative troponins as noted. Continue current medications. 3. Hyperlipidemia, stable. On statin therapy at baseline. 4. Hypertension, stable. On metoprolol, lisinopril, amlodipine at baseline. 5. Chronic back pain, stable. On extended release morphine at baseline. 6. Anxiety, stable. Ativan IV/po PRN as patient very anxious Code status DNR Prophylaxis On Pradaxa
[2023-06-04] MEDS: HYDROMORPHONE 1 MG INJ IV ×2 (08:12→16:36)
[2023-06-04] MEDS: INSULIN GLARGINE 100 UNIT/ML 3ML PEN 15 UNIT SUBCUT (08:22)
[2023-06-04] MEDS: INSULIN REGULAR 100 UNIT/ML 3 ML VIAL SUBCUT ×3 (08:23→20:37)
[2023-06-04] MEDS: METOPROLOL ER 25 MG TABLET 37.5 MG PO ×2 (08:27→20:38)
[2023-06-04] MEDS: DULOXETINE 30 MG CAPSULE 60 MG PO (08:27)
[2023-06-04] MEDS: DABIGATRAN 75 MG CAPSULE 150 MG PO ×2 (08:27→20:37)
[2023-06-04] MEDS: AMLODIPINE 5 MG TABLET 10 MG PO (08:27)
[2023-06-04] MEDS: CLOPIDOGREL 75 MG TABLET PO (08:28)
[2023-06-04] MEDS: lisinopriL 5 MG TABLET 2.5 MG PO (08:28)
[2023-06-04] MEDS: METHYLPHENIDATE 5 MG TABLET 20 MG PO ×3 (09:07→20:38)
[2023-06-04] MEDS: ONDANSETRON 4 MG ODT 8 MG PO ×2 (09:07→22:29)
[2023-06-04] MEDS: ALBUTEROL/IPRATROPIUM 3 ML AMPUL INH ×2 (10:54→22:15)
[2023-06-04] MEDS: CREON 6000 UNIT 1 EACH PO ×2 (12:41→17:39)
[2023-06-04] MEDS: LORazepam 2 MG/ML INJ 1 MG IV (12:48)
[2023-06-04] MEDS: ONDANSETRON 4 MG/2 ML INJ 8 MG IV (13:11)
--- NOTE | 2023-06-04 13:47 | CM.DPNOTE ---
DCP Note [facility] [facility] reviewed EMR. Per Provider, anticipate dc home tomorrow. Diet continuing to advance. not appendicitis. Plan: home with spouse when stable. No CM needs identified. CM team will follow as needed. RIMA Burrell
[2023-06-04] MEDS: ATORVASTATIN 20 MG TABLET PO (20:37)
[2023-06-04] MEDS: MORPHINE ER 15 MG TABLET PO (20:39)
--- NOTE | 2023-06-04 22:47 | PC.NURSE ---
Patient is alert and oriented. Breath sounds CTA with RA sat of 96%. Persistent cough improved with use of Guaifenesin + Tessalon pearls and cough sounding less coarse than from previous night. HRR. Still with upper abdominal pain/tenderness and described as sharp and stabbing with sometimes radiation into back. Is receiving scheduled Morphine ER and was also given po Dilaudid earlier for pain and currently rates as 3/10. Also having persistent nausea so just medicated with zofran ODT; has not had any emesis. Has been tolerating clear liquid diet. BT present and abdomen is soft; had small BM on previous shift. Voiding without dysuria. Is able to turn himself in bed but is provided SBA when out of bed. Has chronic bilateral foot/ankle neuropathy. Does complain of left great toe discomfort and noted to have callous on tip of toe (had nail removed sometime prior to hospitalization) with some erythema at base of where nail was; toe also noted to be slightly swollen. Bilateral calf SCD's applied when he was ready to sleep. Fall risk score is moderate and bed alarm is activated.
[2023-06-05] VITALS (8 sets, daily range): BP systolic 104–118; BP diastolic 51–70; PULSE 79–91; RESP 16–20; TEMP 36.1–36.9; O2SAT 95–98
[2023-06-05] MEDS: LORazepam 0.5 MG TABLET 1 MG PO (00:34)
[2023-06-05] MEDS: DEXTROSE 5%-0.45% NS 1,000 ML 100 ML IV (04:14)
[2023-06-05] MEDS: ALBUTEROL/IPRATROPIUM 3 ML AMPUL INH ×3 (04:15→22:13)
[2023-06-05] MEDS: INSULIN GLARGINE 100 UNIT/ML 3ML PEN 15 UNIT SUBCUT (08:18)
[2023-06-05] MEDS: INSULIN REGULAR 100 UNIT/ML 3 ML VIAL SUBCUT ×4 (08:18→21:29)
[2023-06-05] MEDS: HYDROMORPHONE 1 MG INJ IV ×4 (08:55→21:23)
[2023-06-05] MEDS: METOPROLOL ER 25 MG TABLET 37.5 MG PO ×2 (08:56→21:26)
[2023-06-05] MEDS: BENZONATATE 100 MG CAPSULE PO ×3 (08:56→21:23)
[2023-06-05] MEDS: ONDANSETRON 4 MG/2 ML INJ 8 MG IV ×2 (08:56→16:22)
[2023-06-05] MEDS: DULOXETINE 30 MG CAPSULE 60 MG PO (08:57)
[2023-06-05] MEDS: guaiFENesin Solution 100 MG/5 ML UDC PO ×3 (08:57→21:23)
[2023-06-05] MEDS: AMLODIPINE 5 MG TABLET 10 MG PO (08:57)
[2023-06-05] MEDS: DABIGATRAN 75 MG CAPSULE 150 MG PO ×2 (08:57→21:26)
[2023-06-05] MEDS: CLOPIDOGREL 75 MG TABLET PO (08:57)
[2023-06-05] MEDS: lisinopriL 5 MG TABLET 2.5 MG PO (08:57)
--- NOTE | 2023-06-05 10:29 | CM.DPNOTE ---
DCP Note [employer] reviewed EMR. Per hospitalist in morning rounds, anticipate dc in a day or so. Continue to advance diet slowly. Per previous CM notes, no identified CM needs at this time. Plan: home with spouse when stable. No CM needs identified. CM team will follow as needed. RIMA Burrell
--- NOTE | 2023-06-05 12:05 | PM.PN.1 ---
Subjective Subjective Interval history: A little more epigastric pain today. He has been taking less pain medications and feels like he may have fallen behind. No chest pain. No dyspnea. Does have diaphoresis during his periods of pain. No nausea. Exam Vital Signs (past 8 hours): - 06/05/23 04:17 06/05/23 07:52 06/05/23 08:56 Temperature 97.9 F Pulse Rate 80 80 Respiratory Rate 20 Blood Pressure 111/61 105/51 L Pulse Oximetry 98 Oxygen Delivery Method Room Air Fraction of Inspired Oxygen 21 SaO2/FiO2 Ratio 452 Oxygen Delivery Method Room Air Oxygen Flow Rate 0 Narrative Exam Narrative: NAD, alert and oriented. Fluent speech. Looks slightly uncomfoertable. Lungs are clear, normal rate and effort. Heart is regular, no murmur gallop or rub. Abdomen is soft, non distended. Some mild epigastric tenderness. Extremities are free of edema. Objective Labs 06/03/23 04:24 06/03/23 04:24 [facility] Medical History Chronic low back pain Coronary artery disease Thyroid nodule Diabetes mellitus Atrial flutter with rapid ventricular response Sepsis Claudication in peripheral vascular disease History of cardioversion (03/07/21) Campylobacter enteritis Exocrine pancreatic insufficiency Acute dehydration Enteritis, enteropathogenic E. coli Paroxysmal atrial fibrillation Psoriasis Narcolepsy GERD (gastroesophageal reflux disease) Hyperlipidemia HTN (hypertension) Insulin dependent diabetes mellitus with complications Peripheral vascular disease Gastroenteritis Pancreatitis Atrial flutter with rapid ventricular response Surgical History History of epididymectomy Hx of biopsy History of femoropopliteal bypass H/O exploratory laparotomy Family History Father Colon cancer Mother Narcolepsy Grandmother Narcolepsy Social History household members: spouse Smoking Status: Former smoker alcohol intake: former Assessment & Plan Assessment & Plan narrative: 1. Chest and abdominal pain in a patient with known coronary artery disease as well as pancreatitis, present on admission and slowly improving. -slow advance of diet. With Creon. 2. Coronary artery disease with previous angioplasty, stable. -On goal-directed treatment. Negative troponins as noted. Continue current medications. 3. Hyperlipidemia, stable. -On statin therapy at baseline. 4. Hypertension, stable. -On metoprolol, lisinopril, amlodipine at baseline. 5. Chronic back pain, stable. -On extended release morphine at baseline. 6. Anxiety, stable. -Ativan IV/po PRN as patient very anxious PLAN: continue current level of care. Slow advance of diet. Code status DNR
[2023-06-05] MEDS: LORazepam 2 MG/ML INJ 1 MG IV ×2 (12:17→21:27)
--- NOTE | 2023-06-05 15:38 | DIET.CONS2 ---
Dietary Inpatient Consultation Note Admission Date: 06/01/2023 09:50 Diet advanced to regular. Pt ordered oatmeal, banana, and blueberries for lunch. Pt was drinking protein drink this morning. Will continue to monitor tolerance and PO intake. Diet: 06/05/23 Lunch General (Regular) Diet Diet Modifications: Food Texture: Level 7 - Regular Liquid Consistency: Level 0 - Thin Nutrition Percent Meal Consumed 100% 06/05/23 14:01 Percent Meal Consumed 100% 06/04/23 14:02 Electronically Signed by: Liliana Olson 06/05/23 15:38 Clinical Dietitian [address] [address]
[2023-06-05] MEDS: ATORVASTATIN 20 MG TABLET PO (21:26)
[2023-06-05] MEDS: GABAPENTIN 600 MG TABLET PO (21:27)
[2023-06-05] MEDS: MORPHINE ER 15 MG TABLET PO (21:27)
[2023-06-06] VITALS (10 sets, daily range): BP systolic 99–119; BP diastolic 47–69; PULSE 52–94; RESP 16–20; TEMP 36.1–37.6; O2SAT 93–99
--- NOTE | 2023-06-06 08:25 | P.PN_ITS ---
Subjective Subjective Interval history: Slow improvement of pain. In talking with him today he notes that this is fairly consistent with all of his previous episodes of acute pancreatitis. He typically will have pain for a 7 to 10 day period of time. He will tend to have a slow improvement once he returns home with a brat diet. Exam Vital Signs (past 8 hours): - 06/06/23 04:40 Temperature 98.6 F Pulse Rate 85 Respiratory Rate 16 Blood Pressure 118/69 Pulse Oximetry 95 Oxygen Flow Rate 0 Fraction of Inspired Oxygen 21 SaO2/FiO2 Ratio 452 Oxygen Delivery Method Room Air Oxygen Flow Rate 0 Narrative Exam Narrative: NAD, alert and oriented. Fluent speech. Lungs are clear, normal rate and effort. Heart is regular, no murmur gallop or rub. Abdomen is soft, non distended. Mild epigastric tenderness. Extremities are free of edema. Objective Labs 06/03/23 04:24 06/03/23 04:24 [facility] Medical History Chronic low back pain Coronary artery disease Thyroid nodule Diabetes mellitus Atrial flutter with rapid ventricular response Sepsis Claudication in peripheral vascular disease History of cardioversion (03/07/21) Campylobacter enteritis Exocrine pancreatic insufficiency Acute dehydration Enteritis, enteropathogenic E. coli Paroxysmal atrial fibrillation Psoriasis Narcolepsy GERD (gastroesophageal reflux disease) Hyperlipidemia HTN (hypertension) Insulin dependent diabetes mellitus with complications Peripheral vascular disease Gastroenteritis Pancreatitis Atrial flutter with rapid ventricular response Surgical History History of epididymectomy Hx of biopsy History of femoropopliteal bypass H/O exploratory laparotomy Family History Father Colon cancer Mother Narcolepsy Grandmother Narcolepsy Social History household members: spouse Smoking Status: Former smoker alcohol intake: former Assessment & Plan Assessment & Plan narrative: 1. Pancreatitis, present on admission and slowly improving. -slow advance of diet. With Creon. Added Protonix back on. -he was able to take some Oatmeal 06/04. Does have increased pain if he take pain medications to infrequently. 2. Coronary artery disease with previous angioplasty, stable. -On goal-directed treatment. Negative troponins as noted. Continue current medications. -there has been no evidence of acute coronary ischemia since he has been admitted. 3. Hyperlipidemia, stable. -On statin therapy at baseline. 4. Hypertension, stable. -On metoprolol, lisinopril, amlodipine at baseline. 5. Chronic back pain, stable. -On extended release morphine at baseline. -out of bed and mobilize. 6. Anxiety, stable. -Ativan IV/po PRN as patient very anxious PLAN: continue current level of care. Slow advance of diet. Home in 1-2 days on a BRAT diet. Code status DNR
[2023-06-06] MEDS: INSULIN REGULAR 100 UNIT/ML 3 ML VIAL SUBCUT ×3 (08:37→17:05)
[2023-06-06] MEDS: CREON 6000 UNIT 1 EACH PO ×2 (08:45→17:03)
[2023-06-06] MEDS: ALBUTEROL/IPRATROPIUM 3 ML AMPUL INH ×2 (09:09→20:06)
[2023-06-06] MEDS: OXYCODONE IR 5 MG TABLET 7.5 MG PO (09:09)
[2023-06-06] MEDS: lisinopriL 5 MG TABLET 2.5 MG PO (10:01)
[2023-06-06] MEDS: DABIGATRAN 75 MG CAPSULE 150 MG PO ×2 (10:01→20:44)
[2023-06-06] MEDS: DULOXETINE 30 MG CAPSULE 60 MG PO (10:01)
[2023-06-06] MEDS: CLOPIDOGREL 75 MG TABLET PO (10:01)
[2023-06-06] MEDS: AMLODIPINE 5 MG TABLET 10 MG PO (10:02)
[2023-06-06] MEDS: METOPROLOL ER 25 MG TABLET 37.5 MG PO ×2 (10:03→20:44)
[2023-06-06] MEDS: guaiFENesin Solution 100 MG/5 ML UDC PO ×3 (10:04→20:06)
[2023-06-06] MEDS: BENZONATATE 100 MG CAPSULE PO ×2 (10:04→20:06)
[2023-06-06] MEDS: INSULIN GLARGINE 100 UNIT/ML 3ML PEN 15 UNIT SUBCUT (10:04)
[2023-06-06] MEDS: ONDANSETRON 4 MG/2 ML INJ 8 MG IV (10:19)
[2023-06-06] MEDS: HYDROMORPHONE 1 MG INJ IV ×4 (10:19→20:46)
--- NOTE | 2023-06-06 11:14 | CM.DPNOTE ---
DCP Note SLUMBER ROOM ATTENDANT reviewed EMR. Per hospitalist in morning rounds, anticipate dc in a day or so. Continues to have a lot of abdominal pain. Continue to advance diet slowly. Per previous CM notes, no identified CM needs at this time. Per dietary note, diet advanced to regular. Plan: home with spouse when stable. No CM needs identified. CM team will follow as needed. RIMA Burrell
[2023-06-06] MEDS: LORazepam 2 MG/ML INJ 1 MG IV ×3 (11:43→20:47)
[2023-06-06] MEDS: PANTOPRAZOLE DR 40 MG TABLET PO ×2 (12:30→20:45)
--- NOTE | 2023-06-06 16:48 | DIET.CONS2 ---
Dietary Inpatient Consultation Note Admission Date: 06/01/2023 09:50 F/u on tolerance to regular diet. Met with pt at bedside early afternoon. He had eaten oatmeal and banana and was still experiencing abd pain. No intake of protein drinks from home at that time. Diet: 06/05/23 Lunch General (Regular) Diet Diet Modifications: Food Texture: Level 7 - Regular Liquid Consistency: Level 0 - Thin Nutrition Percent Meal Consumed 100% 06/06/23 08:40 Percent Meal Consumed 100% 06/05/23 18:33 Percent Meal Consumed 100% 06/05/23 14:01 Electronically Signed by: Liliana Olson 06/06/23 16:48 Clinical Dietitian [address] [address]
[2023-06-06] MEDS: METHYLPHENIDATE 5 MG TABLET 20 MG PO (18:15)
[2023-06-06] MEDS: MORPHINE ER 15 MG TABLET PO (20:44)
[2023-06-06] MEDS: ATORVASTATIN 20 MG TABLET PO (20:47)
[2023-06-07] VITALS (10 sets, daily range): BP systolic 97–111; BP diastolic 49–60; PULSE 74–84; RESP 16–22; TEMP 36.3–36.7; O2SAT 94–100
[2023-06-07] MEDS: ALBUTEROL/IPRATROPIUM 3 ML AMPUL INH ×3 (02:38→14:06)
[2023-06-07] MEDS: guaiFENesin Solution 100 MG/5 ML UDC PO ×3 (02:38→20:28)
[2023-06-07] MEDS: BENZONATATE 100 MG CAPSULE PO ×3 (02:38→20:52)
[2023-06-07] MEDS: ONDANSETRON 4 MG/2 ML INJ 8 MG IV ×2 (02:49→20:28)
[2023-06-07] MEDS: HYDROMORPHONE 1 MG INJ IV ×2 (02:55→20:28)
[2023-06-07] MEDS: INSULIN GLARGINE 100 UNIT/ML 3ML PEN 15 UNIT SUBCUT (08:12)
[2023-06-07] MEDS: INSULIN REGULAR 100 UNIT/ML 3 ML VIAL SUBCUT ×4 (08:13→20:46)
--- NOTE | 2023-06-07 08:50 | PC.NURSE ---
Patient is alert and oriented x4, given tessalon elan for cough, he states that he is not able to cough anything up at this time. BS 131, insulins given and medication that helps patient eat. He is up independently in room, will be coming to visit soon. He denies pain at this time.
[2023-06-07] MEDS: lisinopriL 5 MG TABLET 2.5 MG PO (09:32)
[2023-06-07] MEDS: DABIGATRAN 75 MG CAPSULE 150 MG PO ×2 (09:33→20:30)
[2023-06-07] MEDS: AMLODIPINE 5 MG TABLET 10 MG PO (09:33)
[2023-06-07] MEDS: GABAPENTIN 300 MG CAPSULE PO (09:33)
[2023-06-07] MEDS: METHYLPHENIDATE 5 MG TABLET 20 MG PO ×3 (09:33→20:30)
[2023-06-07] MEDS: PANTOPRAZOLE DR 40 MG TABLET PO ×2 (09:33→20:31)
[2023-06-07] MEDS: DULOXETINE 30 MG CAPSULE 60 MG PO (09:33)
[2023-06-07] MEDS: CLOPIDOGREL 75 MG TABLET PO (09:33)
[2023-06-07] MEDS: METOPROLOL ER 25 MG TABLET 37.5 MG PO ×2 (09:33→20:52)
[2023-06-07] MEDS: HYDROMORPHONE 2 MG TABLET PO (11:06)
[2023-06-07] MEDS: PROCHLORPERAZINE 10 MG/2 ML VIAL 5 MG IV (11:37)
--- NOTE | 2023-06-07 13:46 | DI.RAD.S_ITS ---
PROCEDURE: XR CHEST 1V INDICATIONS: cough TECHNIQUE: One view of the chest was acquired. COMPARISON: [facility], CR, XR CHEST 1V, 05/31/2023, 16:23. FINDINGS: Surgical changes and devices: None. Lungs and pleura: Lungs are clear. No pleural effusions or pneumothorax. Mediastinum: Mediastinal contours appear normal. Heart size is normal. Bones and chest wall: No suspicious bony lesions. Overlying soft tissues appear unremarkable. IMPRESSION: No acute cardiopulmonary abnormality is seen. Dictated by: Manpreet Allen M.D. on 06/07/2023 at 16:19 Approved by: Manpreet Allen M.D. on 06/07/2023 at 16:19
--- NOTE | 2023-06-07 14:32 | P.PN_ITS ---
Subjective Subjective Interval history: He has developed a cough today. It is quite hoarse and wheezy. He denies any shortness a breath but notes that the cough did improve with a breathing treatment. He notes that this happens fairly frequently from his chronic aspiration from regurgitating. His abdomen feels about the same, he is trying to use oral Dilaudid for pain medication today. Exam Vital Signs (past 8 hours): - 06/07/23 06:49 06/07/23 07:00 06/07/23 13:00 Temperature 97.8 F 97.3 F L Pulse Rate 83 80 84 Respiratory Rate 20 16 16 Blood Pressure 103/52 L 111/53 L Pulse Oximetry 94 96 95 Oxygen Delivery Method Room Air Oxygen Flow Rate 0 Fraction of Inspired Oxygen 21 06/07/23 14:06 Temperature Pulse Rate 80 Respiratory Rate 16 Blood Pressure Pulse Oximetry 97 Oxygen Delivery Method Room Air Oxygen Flow Rate Fraction of Inspired Oxygen Fraction of Inspired Oxygen 21 SaO2/FiO2 Ratio 447 Oxygen Delivery Method Room Air Oxygen Flow Rate 0 Narrative Exam Narrative: He looks somewhat uncomfortable but no distress. Lungs are notable for expiratory wheezing and intermittent coughing. They are otherwise clear. Heart is regular, no murmur. Abdomen is notable for some epigastric tenderness. No leg edema. Objective Imaging Chest x-ray: My impression: Is fairly clear to my read this is dated 06/06 Labs 06/03/23 04:24 06/03/23 04:24 [facility] Medical History Chronic low back pain Coronary artery disease Thyroid nodule Diabetes mellitus Atrial flutter with rapid ventricular response Sepsis Claudication in peripheral vascular disease History of cardioversion (03/07/21) Campylobacter enteritis Exocrine pancreatic insufficiency Acute dehydration Enteritis, enteropathogenic E. coli Paroxysmal atrial fibrillation Psoriasis Narcolepsy GERD (gastroesophageal reflux disease) Hyperlipidemia HTN (hypertension) Insulin dependent diabetes mellitus with complications Peripheral vascular disease Gastroenteritis Pancreatitis Atrial flutter with rapid ventricular response Surgical History History of epididymectomy Hx of biopsy History of femoropopliteal bypass H/O exploratory laparotomy Family History Father Colon cancer Mother Narcolepsy Grandmother Narcolepsy Social History household members: spouse Smoking Status: Former smoker alcohol intake: former Assessment & Plan Assessment & Plan narrative: 1. Pancreatitis, present on admission and slowly improving. -slow advance of diet. With Creon. Added Protonix back on. -continue supportive care and slow diet advanced. 2. Cough and wheezing, new and active. -chest x-ray appears clear, we will obtain a mini for respiratory PCR. Continue bronchodilators and start ceftriaxone IV. This may represent aspiration pneumonitis or early infection. 3. Coronary artery disease with previous angioplasty, stable. -On goal-directed treatment. Negative troponins as noted. Continue current medications. -this appears to be clinically stable. 4. Hyperlipidemia, stable. -continue statin therapy (baseline). 5. Hypertension, stable. -continue metoprolol, lisinopril, amlodipine at baseline. 6. Chronic back pain, stable. -On extended release morphine at baseline. -out of bed and mobilize. 7. Anxiety, stable. -Ativan IV/po PRN as patient very anxious PLAN: continue current level of care. Slow advance of diet. Home in day if cough, wheezing, and abdominal pain improve. Code status DNR
[2023-06-07 15:00] LABS: Influenza A - CEPHEID Flu A NEGATIVE (NEGATIVE); Influenza B - CEPHEID Flu B NEGATIVE (NEGATIVE); Respiratory Syncytial Virus Negative (Negative)
[2023-06-07 15:06] LABS: COVID-19 CEPHEID 4-PLEX PCR Negative (Negative)
[2023-06-07] MEDS: cefTRIAXone 1,000 MG in SODIUM CHLORIDE 0.9% 100 ML 200 MG IV (15:06)
[2023-06-07] MEDS: CREON 6000 UNIT 1 EACH PO ×2 (17:30→21:45)
[2023-06-07] MEDS: GABAPENTIN 600 MG TABLET PO (20:30)
[2023-06-07] MEDS: MORPHINE ER 15 MG TABLET PO (20:31)
[2023-06-07] MEDS: ATORVASTATIN 20 MG TABLET PO (20:31)
[2023-06-07] MEDS: diphenhydrAMINE 25 MG TABLET 50 MG PO (21:20)
[2023-06-08] VITALS (9 sets, daily range): BP systolic 94–126; BP diastolic 47–68; PULSE 74–90; RESP 17–20; TEMP 35.8–37.4; O2SAT 95–100
[2023-06-08] MEDS: LORazepam 0.5 MG TABLET 1 MG PO ×4 (00:13→17:10)
[2023-06-08] MEDS: OXYCODONE IR 5 MG TABLET 7.5 MG PO ×4 (00:13→17:11)
--- NOTE | 2023-06-08 07:48 | PM.PN.1 ---
Subjective Subjective Interval history: Very slow improvement of his abdominal pain. In talking with him he has a chronic abdominal pain for years. Pain is daily experience for him. He takes oxycodone at home typically 1 tablet to maybe 2 a day but sometimes up to 7. He was slowly improving until yesterday when he developed a very harsh, barking cough. Chest x-ray was normal. He did have wheezing lungs and was started on ceftriaxone for a 3 day course as well as bronchodilators. Today he has a persistent episodic cough with pain that is about the same. Once his cough improved to some degree I think he will be able to go home over the weekend. He also has a rash on both forearms when at the elbows which is a little bit itchy for which he received Benadryl dose earlier. Exam Vital Signs (past 8 hours): - 06/08/23 00:00 06/08/23 04:00 Temperature 99.3 F 98 F Pulse Rate 77 74 Respiratory Rate 18 18 Blood Pressure 112/57 L 99/55 L Pulse Oximetry 97 97 Oxygen Flow Rate 0 0 Fraction of Inspired Oxygen 21 SaO2/FiO2 Ratio 447 Oxygen Delivery Method Room Air Oxygen Flow Rate 0 Narrative Exam Narrative: NAD, alert and oriented. Fluent speech. Lungs are somewhat wheezy, normal rate and effort. Heart is regular, no murmur gallop or rub. Abdomen is soft, non distended. Extremities are free of edema. Objective Labs 06/03/23 04:24 06/03/23 04:24 Labs: Laboratory Results - last 24 hr 06/07/23 14:11 SARS-CoV-2 (PCR) Negative Influenza A (RT-PCR) Flu a negative Influenza B (RT-PCR) Flu b negative RSV (PCR) Negative [facility] Medical History Chronic low back pain Coronary artery disease Thyroid nodule Diabetes mellitus Atrial flutter with rapid ventricular response Sepsis Claudication in peripheral vascular disease History of cardioversion (03/07/21) Campylobacter enteritis Exocrine pancreatic insufficiency Acute dehydration Enteritis, enteropathogenic E. coli Paroxysmal atrial fibrillation Psoriasis Narcolepsy GERD (gastroesophageal reflux disease) Hyperlipidemia HTN (hypertension) Insulin dependent diabetes mellitus with complications Peripheral vascular disease Gastroenteritis Pancreatitis Atrial flutter with rapid ventricular response Surgical History History of epididymectomy Hx of biopsy History of femoropopliteal bypass H/O exploratory laparotomy Family History Father Colon cancer Mother Narcolepsy Grandmother Narcolepsy Social History household members: spouse Smoking Status: Former smoker alcohol intake: former Assessment & Plan Assessment & Plan narrative: 1. Pancreatitis, present on admission and slowly improving. -slow advance of diet. With Creon. Added Protonix back on. -continue supportive care and slow diet advanced. 2. Cough and wheezing, new and active. -chest x-ray appears clear, negative respiratory PCR. Continue bronchodilators and start ceftriaxone IV. This may represent aspiration pneumonitis or early infection. 3. Coronary artery disease with previous angioplasty, stable. -On goal-directed treatment. Negative troponins as noted. Continue current medications. -this appears to be clinically stable. 4. Hyperlipidemia, stable. -continue statin therapy (baseline). 5. Hypertension, stable. -continue metoprolol, lisinopril, amlodipine at baseline. 6. Chronic back pain, stable. -On extended release morphine at baseline. -out of bed and mobilize. 7. Anxiety, stable. -Ativan IV/po PRN as patient very anxious Dispo: Hopefully home in the next 1-2 days. He is taking primarily oral pain meds at this time.
[2023-06-08] MEDS: CREON 6000 UNIT 1 EACH PO ×3 (08:17→17:07)
[2023-06-08] MEDS: BENZONATATE 100 MG CAPSULE PO ×3 (08:23→21:09)
[2023-06-08] MEDS: AMLODIPINE 5 MG TABLET 10 MG PO (08:23)
[2023-06-08] MEDS: PANTOPRAZOLE DR 40 MG TABLET PO ×2 (08:23→21:09)
[2023-06-08] MEDS: DULOXETINE 30 MG CAPSULE 60 MG PO (08:24)
[2023-06-08] MEDS: lisinopriL 5 MG TABLET 2.5 MG PO (08:25)
[2023-06-08] MEDS: CLOPIDOGREL 75 MG TABLET PO (08:25)
[2023-06-08] MEDS: DABIGATRAN 75 MG CAPSULE 150 MG PO ×2 (08:25→21:09)
[2023-06-08] MEDS: guaiFENesin Solution 100 MG/5 ML UDC PO ×3 (08:41→21:09)
[2023-06-08] MEDS: INSULIN REGULAR 100 UNIT/ML 3 ML VIAL SUBCUT ×3 (08:41→17:19)
[2023-06-08] MEDS: METHYLPHENIDATE 5 MG TABLET 20 MG PO ×3 (08:41→17:16)
[2023-06-08] MEDS: INSULIN GLARGINE 100 UNIT/ML 3ML PEN 15 UNIT SUBCUT (08:42)
[2023-06-08] MEDS: diphenhydrAMINE 25 MG TABLET 50 MG PO ×3 (08:52→21:09)
--- NOTE | 2023-06-08 10:52 | CM.DPC ---
DCP Cont According to discussion in multidisciplinary rounds, patient expected to stay the evening. Patient now with newly developed cough, etiology unknown. No needs expected from this CM team, following clinical course closely in case any discharge needs or concerns arise. JW
[2023-06-08] MEDS: ALBUTEROL/IPRATROPIUM 3 ML AMPUL INH ×2 (11:52→17:59)
[2023-06-08] MEDS: cefTRIAXone 1,000 MG in SODIUM CHLORIDE 0.9% 100 ML 200 MG IV (14:00)
[2023-06-08] MEDS: HYDROMORPHONE 1 MG INJ IV (19:38)
[2023-06-08] MEDS: MORPHINE ER 15 MG TABLET PO (21:08)
[2023-06-08] MEDS: ATORVASTATIN 20 MG TABLET PO (21:09)
[2023-06-08] MEDS: METOPROLOL ER 25 MG TABLET 37.5 MG PO (21:09)
[2023-06-09] MEDS: OXYCODONE IR 5 MG TABLET 7.5 MG PO (06:00)
[2023-06-09] MEDS: diphenhydrAMINE 25 MG TABLET 50 MG PO (06:01)
[2023-06-09] MEDS: guaiFENesin Solution 100 MG/5 ML UDC PO (06:01)
[2023-06-09] MEDS: BENZONATATE 100 MG CAPSULE PO (06:01)
[2023-06-09] MEDS: METHYLPHENIDATE 5 MG TABLET 20 MG PO (06:01)
[2023-06-09 08:00] VITALS: BP 111/71; PULSE 80; RESP 16; TEMP 36.2; O2SAT 99
[2023-06-09] MEDS: INSULIN REGULAR 100 UNIT/ML 3 ML VIAL SUBCUT (08:06)
[2023-06-09] MEDS: INSULIN GLARGINE 100 UNIT/ML 3ML PEN 15 UNIT SUBCUT (08:09)
[2023-06-09] MEDS: PANTOPRAZOLE DR 40 MG TABLET PO (08:12)
[2023-06-09] MEDS: DABIGATRAN 75 MG CAPSULE 150 MG PO (08:12)
[2023-06-09] MEDS: AMLODIPINE 5 MG TABLET 10 MG PO (08:12)
[2023-06-09 08:13] VITALS: BP 111/71; PULSE 80
[2023-06-09] MEDS: METOPROLOL ER 25 MG TABLET 37.5 MG PO (08:13)
[2023-06-09 08:14] VITALS: BP 111/71; PULSE 80
[2023-06-09] MEDS: lisinopriL 5 MG TABLET 2.5 MG PO (08:14)
[2023-06-09] MEDS: DULOXETINE 30 MG CAPSULE 60 MG PO (08:14)
[2023-06-09] MEDS: CLOPIDOGREL 75 MG TABLET PO (08:15)
[2023-06-09] MEDS: CREON 6000 UNIT 1 EACH PO (08:31)
[2023-06-09] MEDS: ONDANSETRON 4 MG ODT 8 MG PO (08:31)
[2023-06-09] MEDS: LORazepam 0.5 MG TABLET 1 MG PO (08:31)
[2023-06-09 09:30] VITALS: PULSE 83
--- NOTE | 2023-06-09 10:39 | DI.RAD.S_ITS ---
PROCEDURE: XR CHEST 1V INDICATIONS: assess for PNA TECHNIQUE: One view of the chest was acquired. COMPARISON: [facility], CR, XR CHEST 1V, 06/07/2023, 13:55. FINDINGS: Surgical changes and devices: None. Lungs and pleura: Lungs are clear. No pleural effusions or pneumothorax. Mediastinum: Mediastinal contours appear normal. Heart size is normal. Bones and chest wall: No suspicious bony lesions. Overlying soft tissues appear unremarkable. IMPRESSION: No acute cardiopulmonary abnormality is seen. Approved by: Mandie Multani M.D. on 06/09/2023 at 10:42
[2023-06-09] MEDS: predniSONE 20 MG TABLET 40 MG PO (11:43)
--- NOTE | 2023-06-09 12:04 | PC.NURSE ---
Day shift: Discharge instructions gone over with patient. Patient stated understanding, all questions answered. All belongings with patient, including medication that pharmacy returned to him. PICC line discontinued prior to discharge. MD Jane stated no need for 3rd Rocephin dose after examining this AM's chest xray. GORAN Gates escorted patient via wheelchair to exit where will drive him home.
--- NOTE | 2023-06-09 14:54 | P.DS_ITS ---
History of Present Illness History of Present Illness Date Patient Seen: 06/01/23 Chief complaint: short of breath, chest pain, cough Narrative: 68 years old male with a past medical history of hypertension, diabetes mellitus type 2, atrial flutter, peripheral vascular disease, dyslipidemia and multiple other medical issues presented to the emergency room for chest tightness mainly in the retrosternal/epigastric region nonradiating with episodes of palpitations. No dizziness or loss of consciousness. Feels chills but no temperature. Has shortness of breath on exertion but no edema in the lower extremity. No orthopnea. Has nausea but no vomiting. Denies any bowel movement or bladder issues. Workup included a chest x-ray and EKG that shows no acute process. WBC is 9.2, hemoglobin is 13.6. Blood sugar was 296 but otherwise electrolytes are fairly unremarkable. Viral screen is negative. BNP is 24. Given the multiple cardiac risk factors, he was admitted for further evaluation Additional history: He has had pain for 3 days which is both epigastric and lower chest. The pain increases with breathing to an extent. A CT pulmonary angio was negative. The patient has had anorexia for 3 days. The pain is left upper quadrant and does radiate to the back. The pain feels more like his pancreas than his previous history of cardiac events. He does have a history of cardiac stent and balloon angioplasty with his last event last February. This was done at the OR. He denies any vomiting. He is moving around a lot due to pain. Troponins have been normal thus far, ECG was normal. A lipase has not been ordered. He has been somewhat constipated and denies any diarrhea or blood per rectum. He has had a dry cough for some time but denies fevers or chills. The pain is not clearly pleuritic. Discharge Providers Provider Date of admission: 06/01/23 09:50 Discharge Date: 06/09/23 Primary care physician: Eric Huang MD Discharge provider: Narayan Jane DO Summary Hospital Course Discharge Diagnosis: 1. Pancreatitis, present on admission and slowly improving. -slow advance of diet. With Creon and protonix. -continue supportive care and slow diet advanced. -tolerating po well 2. Cough and wheezing, new and active. -chest x-ray appears clear, negative respiratory PCR. Continue bronchodilators and received dose of rocephin IV. -likely due to COPD -placed on prednisone 40mg x5 days and patient will use him home nebulizers 3. Coronary artery disease with previous angioplasty, stable. -On goal-directed treatment. Negative troponins as noted. Continue current medications. -this appears to be clinically stable. 4. Hyperlipidemia, stable. -continue statin therapy (baseline). 5. Hypertension, stable. -continue metoprolol, lisinopril, amlodipine at baseline. 6. Chronic back pain, stable. -On extended release morphine at baseline. -out of bed and mobilize. 7. Anxiety, stable. -Ativan IV/po PRN as patient very anxious Hospital Course: Admitted for abd pain and diagnosed with acute on chronic pancreatitis. Took several days to improve and was finally able to eat again without pain. On day of discharge was quite wheezy, CXR negative. Placed on po prednisone x5 days and patient will use his home nebulizers. Exam Vital Signs (past 8 hours): - 06/09/23 08:00 06/09/23 08:13 06/09/23 08:14 Temperature 97.1 F L Pulse Rate 80 80 80 Respiratory Rate 16 Blood Pressure 111/71 111/71 111/71 Pulse Oximetry 99 Oxygen Flow Rate 0 06/09/23 09:30 Temperature Pulse Rate 83 Respiratory Rate Blood Pressure Pulse Oximetry Oxygen Flow Rate Fraction of Inspired Oxygen 21 SaO2/FiO2 Ratio 447 Oxygen Delivery Method Room Air Oxygen Flow Rate 0 Narrative Exam Narrative: NAD, alert and oriented. Fluent speech. Lungs are somewhat wheezy, normal rate and effort. Heart is regular, no murmur gallop or rub. Abdomen is soft, non distended. Extremities are free of edema. Objective Labs 06/03/23 04:24 06/03/23 04:24 [facility] Medical History Chronic low back pain Coronary artery disease Thyroid nodule Diabetes mellitus Atrial flutter with rapid ventricular response Sepsis Claudication in peripheral vascular disease History of cardioversion (03/07/21) Campylobacter enteritis Exocrine pancreatic insufficiency Acute dehydration Enteritis, enteropathogenic E. coli Paroxysmal atrial fibrillation Psoriasis Narcolepsy GERD (gastroesophageal reflux disease) Hyperlipidemia HTN (hypertension) Insulin dependent diabetes mellitus with complications Peripheral vascular disease Gastroenteritis Pancreatitis Atrial flutter with rapid ventricular response Surgical History History of epididymectomy Hx of biopsy History of femoropopliteal bypass H/O exploratory laparotomy Family History Father Colon cancer Mother Narcolepsy Grandmother Narcolepsy Social History household members: spouse Smoking Status: Former smoker alcohol intake: former Discharge Plan Discharge Plan Patient Disposition: Home Provider Discharge Comment: You recovered well from your pancreatitis. You developed wheezing before discharge, so I put you on 5 days of prednisone. Please use your home nebulizers. Dr. Jane Discharge orders & Medications Prescriptions: New prednisone 20 mg tablet 40 mg PO DAILY 4 Days Qty: 8 0RF Rx Instructions: start on 06/09 Continued clopidogrel [Plavix] 75 mg Tablet 75 mg PO QAM Qty: 0 methylphenidate HCl 20 mg tablet 20 mg PO TID Qty: 90 0RF insulin lispro [Humalog U-100 Insulin] 100 unit/mL solution See Rx Instructions SUBCUT USEASDIRECTD Rx Instructions: 2-4 sliding scale SUBCUT use as directed; Creon 24,000-76,000 -120,000 unit capsule,delayed release(DR/EC) 1 cap PO QID Qty: 120 12RF Rx Instructions: administer with meals and/or snacks prn sliding scale. 1 capsule for every 600 calories morphine [MS Contin] 15 mg tablet extended release 15 mg PO .HS rosuvastatin 10 mg tablet 40 mg PO DAILY amlodipine 5 mg tablet 10 mg PO DAILY duloxetine [Cymbalta] 60 mg capsule,delayed release(DR/EC) 60 mg PO QAM acetaminophen [Pain Relief (acetaminophen)] 325 MG tablet 500 mg PO Q4HP PRN (Reason: Pain, Mild) dabigatran etexilate [Pradaxa] 150 mg Capsule 150 mg PO BID ondansetron 8 mg tablet,disintegrating 8 mg PO PRN PRN (Reason: nausea/vomiting) trazodone 50 mg Tablet 50 mg PO BEDTIME PRN (Reason: insomnia) Qty: 30 0RF Rx Instructions: can take 1/2 tab (25mg) if 50 is too strong metoprolol succinate 25 mg Tablet Extended Release 24 Hr 37.5 mg PO BID ipratropium-albuterol inhaler 3 ml inhalation 4XD PRN (Reason: For shortness of breath) tadalafil 20 mg PO PRN PRN (Reason: 1hr before sexual activity) diphenhydramine HCl 12.5 mg/5 mL elixir 50 mg PO Q6H PRN (Reason: nausea and vomiting) insulin glargine 10 units SUBCUT QAM pantoprazole 40 mg Tablet,Delayed Release (Dr/Ec) 40 mg PO BID lisinopril 2.5 mg Tablet 2.5 mg PO QAM oxycodone 7.5 mg tablet, oral only 7.5 mg PO Q4H PRN (Reason: pain) Qty: 30 0RF Follow up/Referrals: Eric Huang MD [Primary Care Provider] - 1 Week Visit Report/Discharge Packet Instructions: DI for Pancreatitis, DI for Cough -- Adult Stand Alone Forms: Patient Portal/API, Stroke Signs & Symptoms Discharge Data Primary Care Provider: Eric Huang
--- NOTE | 2023-06-10 13:40 | CM.DPC ---
DCP Cont: Per MD, pt was medically stable to discharge home yesterday 06/09/23 and no identified barriers to discharge and pt discharged after DCP shift yesterday. REE faxed [facility] pt's clincals from 06/07-06/09/23 including discharge summary. Per RN, pt was given discharge instructions yesterday and taken to [facility] P[facility] for discharge to home and no concerns noted. RIMA Ramos
--- NOTE | 2023-06-15 07:57 | PC.NURSE ---
Late entry for 06/06. Dilauded 1mg and Lorazepam 1 mg administered to patient @ 06:34.
== END 2023-06-09 12:07 | disposition home or self-care (01) | DRG 440 ==
LOC: ED 17:57 → AC 06-01 04:13 → ICU 06-01 04:58 → AC 06-01 16:30
PROVIDERS: Emergency Medicine; Family Medicine; Hospitalist; Admitting Provider Internal Medicine; Emergency Provider Emergency Medicine; Family Provider Nurse Practitioner Family; PCP Family Medicine; Referring Provider Emergency Medicine; Visit Provider Internal Medicine
DX: K85.90 Acute pancreatitis without necrosis or infection, unspecified (principal); R07.9 Chest pain, unspecified; I25.10 Atherosclerotic heart disease of native coronary artery without angina pectoris; E78.5 Hyperlipidemia, unspecified; I10 Essential (primary) hypertension; G89.29 Other chronic pain; M54.9 Dorsalgia, unspecified; I25.2 Old myocardial infarction; F41.9 Anxiety disorder, unspecified; R05.9 Cough, unspecified; R06.2 Wheezing; K86.1 Other chronic pancreatitis; E11.9 Type 2 diabetes mellitus without complications; K21.9 Gastro-esophageal reflux disease without esophagitis; Z90.49 Acquired absence of other specified parts of digestive tract; Z87.891 Personal history of nicotine dependence; Z79.4 Long term (current) use of insulin; Z98.61 Coronary angioplasty status; Z66 Do not resuscitate
CPT/HCPCS: 0241U; 36415; 71045; 71275; 74176; 80048; 80053; 80061; 82962; 83605; 83690; 83735; 83880; 84484; 85025; 85610; 86140; 87633; 87797; 93005; 93010; 94150; 94640; 96372; 96374; 96375; 99284; G0378; C8929; J0696; J0780; J1170; J1200; J1642; J2060; J2405; J2919; Q9957; Q9967

== ENCOUNTER 2023-07-30 08:55 | Emergency (ER) | payer OTHER, SELFPAY ==
[2023-06-01 03:57] VITALS: BMI 26.5
[2023-07-30] VITALS (17 sets, daily range): BP systolic 107–145; BP diastolic 57–75; PULSE 74–99; RESP 14–28; TEMP 36.4–36.5; O2SAT 94–100; BMI 26.5
--- NOTE | 2023-07-30 09:39 | ED.GENADULT ---
HPI - General Adult General Chief complaint: Abdominal Pain Stated complaint: high blood sugar Time Seen by Provider: 07/30/23 09:09 Source: patient Mode of arrival: Ambulatory History of Present Illness HPI narrative: 68-year-old gentleman with a history of paroxysmal atrial fibrillation, pancreatic insufficiency recently completed a 14 day course of IM octreotide 3 times a day, coronary artery disease, type 1 diabetes, hyperlipidemia, hypertension comes in today complaining that his sugars have been in the 4-500 range for the last couple days he has been unable to get them down. He typically has tight control in the 90-100 range, he does have a continuous blood glucose monitor. This morning he took 20 units of Lantus and 15 units of NovoLog and his blood sugar that has been higher than 500 as now trending down but still at 375. He has been having polydipsia, polyuria, overall fatigue, complains of feeling rest focused but no focal neurologic complaints, continued to have left upper abdominal pain that he is attributed to his chronic pancreatitis pain. He is slightly nauseated but no overt vomiting. No palpitations no upper chest pain no dyspnea. No lower extremity edema Related Data Home Medications Medication Instructions Recorded Confirmed clopidogrel 75 mg tablet (Plavix) 75 mg PO QAM ##0 04/15/08 07/03/23 acetaminophen 325 mg tablet (Pain 500 mg PO Q4HP PRN Pain, Mild 09/25/17 07/03/23 Relief (acetaminophen)) dabigatran etexilate 150 mg 150 mg PO BID 03/24/18 07/03/23 capsule (Pradaxa) lisinopril 2.5 mg tablet 2.5 mg PO QAM blood pressure 04/28/19 07/03/23 insulin lispro 100 unit/mL See Rx Instructions SUBCUT 03/15/20 07/03/23 subcutaneous solution (Humalog USEASDIRECTD U-100 Insulin) duloxetine 60 mg capsule,delayed 60 mg PO QAM 11/01/21 07/03/23 release (Cymbalta) ondansetron 8 mg disintegrating 8 mg PO PRN PRN nausea/vomiting 02/25/22 07/03/23 tablet morphine 15 mg tablet,extended 15 mg PO .HS 06/06/22 07/03/23 release (MS Contin) amlodipine 5 mg tablet 10 mg PO DAILY 01/19/23 07/03/23 rosuvastatin 10 mg tablet 40 mg PO DAILY 01/19/23 07/03/23 diphenhydramine HCl 12.5 mg/5 mL 50 mg PO Q6H PRN nausea and 06/01/23 07/03/23 oral elixir vomiting insulin glargine 10 units SUBCUT QAM 06/01/23 07/03/23 ipratropium-albuterol 3 ml inhalation 4XD PRN For 06/01/23 07/03/23 shortness of breath metoprolol succinate 25 mg 37.5 mg PO BID 06/01/23 07/03/23 tablet,extended release 24 hr tadalafil 20 mg PO PRN PRN 1hr before sexual 06/01/23 07/03/23 activity pantoprazole 40 mg tablet,delayed 40 mg PO BID 06/06/23 07/03/23 release ezetimibe 10 mg tablet 10 mg PO DAILY 07/03/23 07/03/23 octreotide acetate 100 mcg/mL 100 mcg SUBCUT TID 07/03/23 07/03/23 injection solution Previous Rx's Medication Instructions Recorded zydjhy-tqrrcigh-braibkn 1 cap PO QID #120 caps 03/15/20 24,000-76,000-120,000 unit capsule,delayed rel (Creon) trazodone 50 mg tablet 50 mg PO BEDTIME PRN insomnia #30 03/03/22 tabs oxycodone 7.5 mg tablet,oral ONLY 7.5 mg PO Q4H PRN pain #30 ea 04/18/22 (not for feeding tubes) benzonatate 100 mg capsule 100 mg PO TID PRN cough #45 caps 07/03/23 methylphenidate HCl 20 mg tablet 20 mg PO TID #90 tabs 07/03/23 Allergies Allergy/AdvReac Type Severity Reaction Status Date / Time Iodine and Iodide Containing Allergy Severe Anaphylaxis Verified 07/30/23 09:11 Produc [IODINE AND IODIDE CONTAINING PRODUC] Sulfa (Sulfonamide Allergy Severe Anaphylaxis Verified 07/30/23 09:11 Antibiotics) [SULFA (SULFONAMIDE ANTIBIOTICS)] gabapentin AdvReac Intermediate Dizziness Verified 07/30/23 09:11 [id number]-[id number]-[id number] Reductase AdvReac Intermediate Verified 07/30/23 09:11 Inhibitor metformin AdvReac Mild Verified 07/30/23 09:11 Review of Systems Review of Systems Narrative: Pertinent positive and negative findings as per HPI Patient History Medical History Chronic low back pain Coronary artery disease Thyroid nodule Diabetes mellitus Atrial flutter with rapid ventricular response Sepsis Claudication in peripheral vascular disease History of cardioversion (03/07/21) Campylobacter enteritis Exocrine pancreatic insufficiency Acute dehydration Enteritis, enteropathogenic E. coli Paroxysmal atrial fibrillation Psoriasis Narcolepsy GERD (gastroesophageal reflux disease) Hyperlipidemia HTN (hypertension) Insulin dependent diabetes mellitus with complications Peripheral vascular disease Gastroenteritis Pancreatitis Atrial flutter with rapid ventricular response Surgical History History of epididymectomy Hx of biopsy History of femoropopliteal bypass H/O exploratory laparotomy Family History Father Colon cancer Mother Narcolepsy Grandmother Narcolepsy Social History household members: spouse Smoking Status: Former smoker alcohol intake: former Smoking Status: Former smoker alcohol intake frequency: holidays/special occasions only Substance Use Type: marijuana Exam Initial Vital Signs Initial Vital Signs: Vital Signs Pulse Rate 98 H 07/30/23 09:04 Pulse Oximetry 98 07/30/23 09:04 General: Healthy appearing, in mild distress. Able to give a complete and coherent history. Well-nourished well-developed HEENT: Dry mucous membranes, normal sclera with reactive pupils, Neck: No JVD, supple Respiratory: Lungs are clear to auscultation, no wheezing no rales no rhonchi. Full and symmetrical air movement Cardiac: Regular rate and rhythm no murmurs no bruits Abdomen: Soft, tender in the left upper quadrant without rebound or guarding Skin: Warm and dry, no rashes Neurologic: Grossly neurologically intact with no obvious asymmetries or abnormalities Extremities: No trauma, well perfused, no lower extremity edema Psych: Cooperative, appropriate insight and affect Course Orders Ordered: ED Orders 07/30/23 09:30 BNP [NT-proBNP (BNP-Adult 18+)] Stat Complete Blood Count AUTO DIFF Stat Comprehensive Metabolic Panel Stat Ketones (Beta-Hydroxybutyrate) Stat Lipase Stat Troponin & CK Cardiac Panel Stat 07/30/23 09:47 EKG-12 Lead Stat 07/30/23 10:06 XR chest 1V Stat Hydromorphone HCl (Hydromorphone 0.5 Mg Inj) 0.5 mg IV Q15MIN PRN PRN Reason: Pain, Last Admin: 07/30/23 11:25 Dose: 0.5 mg Documented By: Admin: 07/30/23 10:29 Dose: 0.5 mg Documented By: RB Ondansetron HCl (Ondansetron 4 Mg/2 Ml Inj) 4 mg IV NOW PRN PRN Reason: Nausea And Vomiting Ondansetron HCl (Ondansetron 4 Mg Odt) 4 mg PO NOW PRN PRN Reason: Nausea And Vomiting Discontinued Medications Sodium Chloride (Normal Saline 0.9%) 1,000 mls @ 1,000 mls/hr IV BOLUS ONE Stop: 07/30/23 11:05 Last Infusion: 07/30/23 12:37 Dose: Infused Documented By: Infusion: 07/30/23 11:24 Dose: 999 mls/hr Documented By: Infusion: 07/30/23 10:44 Dose: 0 mls/hr Documented By: Admin: 07/30/23 10:29 Dose: 1,000 mls/hr Documented By: RB Insulin Human Lispro (Insulin Lispro 100 Unit/Ml 3ml Vial) 10 unit SUBCUT NOW ONE Stop: 07/30/23 11:39 Last Admin: 07/30/23 11:43 Dose: 10 unit Documented By: TAQUERIA Co-signed By: MONAE Metoclopramide HCl (Metoclopramide 10 Mg/2 Ml Inj) 10 mg IV NOW ONE Stop: 07/30/23 10:24 Last Admin: 07/30/23 10:29 Dose: 10 mg Documented By: RB Metoclopramide HCl (Metoclopramide 10 Mg/2 Ml Inj) 10 mg IV NOW ONE Stop: 07/30/23 10:31 Last Admin: 07/30/23 10:43 Dose: 10 mg Documented By: RB Vital Signs Vital signs: Vital Signs - 8 hr 07/30/23 09:04 07/30/23 09:05 07/30/23 09:30 Temperature 97.5 F L Pulse Rate 98 H 99 H 90 Respiratory Rate 18 27 H Blood Pressure 145/75 H Pulse Oximetry 98 96 97 Oxygen Delivery Method Room Air 07/30/23 10:00 07/30/23 10:12 07/30/23 10:12 Temperature Pulse Rate 83 83 Respiratory Rate 17 Blood Pressure 133/66 Pulse Oximetry 96 95 Oxygen Delivery Method 07/30/23 10:30 07/30/23 10:31 07/30/23 10:31 Temperature Pulse Rate 84 84 Respiratory Rate 25 H Blood Pressure 133/67 Pulse Oximetry 96 98 Oxygen Delivery Method 07/30/23 11:00 07/30/23 11:00 07/30/23 11:30 Temperature Pulse Rate 85 Respiratory Rate 23 Blood Pressure 132/60 123/58 L Pulse Oximetry 99 Oxygen Delivery Method 07/30/23 11:30 07/30/23 12:00 07/30/23 12:00 Temperature Pulse Rate 81 75 Respiratory Rate 28 H 14 Blood Pressure 118/62 Pulse Oximetry 100 97 Oxygen Delivery Method 07/30/23 12:30 07/30/23 12:30 07/30/23 13:00 Temperature Pulse Rate 82 Respiratory Rate 22 Blood Pressure 120/65 127/60 Pulse Oximetry 98 Oxygen Delivery Method 07/30/23 13:00 07/30/23 13:30 07/30/23 13:30 Temperature Pulse Rate 79 77 Respiratory Rate 18 18 Blood Pressure 123/60 Pulse Oximetry 96 94 Oxygen Delivery Method 07/30/23 14:00 07/30/23 14:00 Temperature Pulse Rate 78 Respiratory Rate 21 Blood Pressure 115/62 Pulse Oximetry 96 Oxygen Delivery Method Medical Decision Making Lab Data 07/30/23 09:30 07/30/23 09:30 Labs: Lab Results 07/30/23 Range/Units 09:30 WBC 8.3 (4.5-11.0) X10^3/uL RBC 4.58 (4.5-5.9) X10^6/uL Hgb 11.8 L (13.5-17.5) g/dL Hct 36.2 L (41-53) % MCV 79.1 L (80-100) fL MCH 25.8 L (26-34) PG MCHC 32.6 (30-36) % RDW 17.3 H (11.6-14.8) % Plt Count 318 (150-400) X10^3/uL Neut % (Auto) 77.5 H (50-75) % Lymph % (Auto) 13.1 L (25-40) % [place] % (Auto) 6.0 (3-14) % Eos % (Auto) 3.0 (2-4) % Baso % (Auto) 0.4 (0-2) % Neut # (Auto) 6400 (9943-7074) /uL Lymph # (Auto) 1100 (2532-8927) /uL [place] # (Auto) 500 (0-900) /uL Eos # (Auto) 200 (0-450) /uL Baso # (Auto) 0 (0-100) /uL Sodium 133 L (137-145) mmol/L Potassium 4.5 (3.4-5.1) mmol/L Chloride 101 (98-107) mmol/L Carbon Dioxide 28 (22-32) mmol/L BUN 13 (9-20) mg/dL Creatinine 0.66 (0.66-1.25) mg/dL Estimated GFR > 60 (>60) mL/min BUN/Creatinine Ratio 19.7 (6-22) Glucose 358 H (80-110) mg/dL Calcium 8.9 (8.4-10.2) mg/dL Total Bilirubin 0.5 (0.2-1.3) mg/dL AST 33 (17-59) IU/L ALT 32 (<50) IU/L Alkaline Phosphatase 104 (38-126) U/L Total Creatine Kinase 130 (55-170) U/L Troponin I < 0.012 (0.01-0.034) ng/mL NT-Pro-B Natriuret Pep 111 (<125) pg/mL Total Protein 6.6 (6.3-8.2) g/dL Albumin 4.2 (3.5-5.0) g/dL Globulin 2.4 (1.7-4.1) g/dL Albumin/Globulin Ratio 1.8 (1.0-2.8) Lipase 285 (23-300) U/L Ketones 0.12 (<0.27) mmol/L Point of Care Testing Glucose POC 227 Point of care testing: Point of Care Testing Glucose POC 227 MDM Narrative Medical decision making narrative: CC: Left upper abdominal pain with blood sugars have been out control with polyuria polydipsia for the last number of days Complicating co-morbidities: Pancreatic insufficiency with recent course of octreotide IM 3 times a day completed 3 days ago. Type 1 diabetes Data collected from: patient Medical records reviewed: Primary care notes for routine follow up on July 02 reviewed Patient was discharged from the hospital on June 09, 2023, discharge notes reviewed. Pancreatitis seemed to be the primary problem with that diagnosis, additionally he has COPD and chronic cough Differential considered: Recurrent pancreatitis, complications of octreotide to do is cholecystitis ascending cholangitis, hepatitis, recurrent pancreatitis, acute coronary syndrome Exam documented above, pertinent findings include: Patient is alert and appropriate. He has not in any acute distress but he looks relatively comfortable. Mild left upper quadrant tenderness. Relatively dry mucous membranes remainder of exam is benign Lab Test results independently reviewed as above. Pertinent findings: CBC is unremarkable chronic stable anemia Chemistries are reassuring. There is no anion gap. Blood sugar is elevated and consistent with the reading that he is seeing on his continuous blood glucose monitor Initial troponin is undetectable Independently reviewed EKG: Sinus rhythm at a rate of 86. Normal intervals, normal axis. No ischemic changes Imaging studies independently reviewed: Chest x-ray is unremarkable Treatments: IV fluid, additional subcutaneous units of insulin Re-evaluations: Patient is feeling much better, nausea is improved. He is able to eat and drink. Blood sugars 229 Discussion: 68-year-old gentleman with type 1 diabetes increasing nausea and unable to get his blood sugars down over the last couple of days. Significantly improve with nausea controlled, IV fluids given. There was no evidence of kidney failure, liver failure, significant infection, acute coronary syndrome or diabetic ketoacidosis. Reassurance is given. We talked about more aggressive home management of blood sugars and reasons to return to the emergency department if sugars are high otherwise. Questions are answered and he is safe for discharge Discharge Plan Departure Patient Disposition: Home Clinical Impression: Elevated blood sugar Type 1 diabetes Qualifiers: Diabetes mellitus complication status: without complication Qualified Code(s): E10.9 - Type 1 diabetes mellitus without complications Instructions: DI for Diabetes Type 1 -- Adult Activity Restrictions/Additional Instructions: Thank you for coming in today Your blood sugars were high however there is no evidence of acute illness, heart attack, kidney function abnormality, liver problems and you are not in DKA. We gave you some Reglan as well as a L of fluid and additional subcutaneous insulin in the emergency department I am glad that you are feeling better in your blood sugars are trending down again If you are otherwise feeling well and able to eat and drink, you can manage high blood sugars at home with more aggressive subcutaneous insulin. The reasons to come into the emergency department with high blood sugars are an inability to eat or drink, signs or symptoms of acute illness, chest pain, or confusion. I wish you the best Prescriptions: No Action clopidogrel [Plavix] 75 mg Tablet 75 mg PO QAM Qty: 0 insulin lispro [Humalog U-100 Insulin] 100 unit/mL solution See Rx Instructions SUBCUT USEASDIRECTD Rx Instructions: 2-4 sliding scale SUBCUT use as directed; Creon 24,000-76,000 -120,000 unit capsule,delayed release(DR/EC) 1 cap PO QID Qty: 120 12RF Rx Instructions: administer with meals and/or snacks prn sliding scale. 1 capsule for every 600 calories morphine [MS Contin] 15 mg tablet extended release 15 mg PO .HS rosuvastatin 10 mg tablet 40 mg PO DAILY amlodipine 5 mg tablet 10 mg PO DAILY duloxetine [Cymbalta] 60 mg capsule,delayed release(DR/EC) 60 mg PO QAM ezetimibe 10 mg tablet 10 mg PO DAILY octreotide acetate 100 mcg/mL solution 100 mcg SUBCUT TID benzonatate 100 mg capsule 100 mg PO TID PRN (Reason: cough) Qty: 45 0RF methylphenidate HCl 20 mg tablet 20 mg PO TID Qty: 90 0RF acetaminophen [Pain Relief (acetaminophen)] 325 MG tablet 500 mg PO Q4HP PRN (Reason: Pain, Mild) dabigatran etexilate [Pradaxa] 150 mg Capsule 150 mg PO BID ondansetron 8 mg tablet,disintegrating 8 mg PO PRN PRN (Reason: nausea/vomiting) trazodone 50 mg Tablet 50 mg PO BEDTIME PRN (Reason: insomnia) Qty: 30 0RF Rx Instructions: can take 1/2 tab (25mg) if 50 is too strong metoprolol succinate 25 mg Tablet Extended Release 24 Hr 37.5 mg PO BID ipratropium-albuterol inhaler 3 ml inhalation 4XD PRN (Reason: For shortness of breath) tadalafil 20 mg PO PRN PRN (Reason: 1hr before sexual activity) diphenhydramine HCl 12.5 mg/5 mL elixir 50 mg PO Q6H PRN (Reason: nausea and vomiting) insulin glargine 10 units SUBCUT QAM pantoprazole 40 mg Tablet,Delayed Release (Dr/Ec) 40 mg PO BID lisinopril 2.5 mg Tablet 2.5 mg PO QAM oxycodone 7.5 mg tablet, oral only 7.5 mg PO Q4H PRN (Reason: pain) Qty: 30 0RF Referrals: Eric Huang MD [Primary Care Provider] - Stand Alone Forms: Patient Portal/API
--- NOTE | 2023-07-30 09:49 | PC.NURSE ---
0935 Patient reports Chest pain, called for EKG at this time. He states he is having pain in his chest but it's my pancreas. He also reports some mild shortness of breath which he thinks is from the DKA.
[2023-07-30 09:52] LABS: Add Manual Diff / Slide Review NO; Basophils Absolute Auto 0 /uL (0-100); Basophils Percent Auto 0.4 % (0-2); Eosinophils Absolute Auto 200 /uL (0-450); Hematocrit 36.2 % (41-53); Hemoglobin 11.8 g/dL (13.5-17.5); Lymphocytes Absolute Auto 1100 /uL (1100-4500); Lymphocytes Percent Auto 13.1 % (25-40); Mean Corpuscular HGB Conc 32.6 % (30-36); Mean Corpuscular Hemoglobin 25.8 PG (26-34); Mean Corpuscular Volume 79.1 fL (80-100); Monocytes Absolute Auto 500 /uL (0-900); Neutrophils Absolute Auto 6400 /uL (1500-7000); Neutrophils Percent Auto 77.5 % (50-75); Platelet Count 318 X10^3/uL (150-400); Red Blood Cell Count 4.58 X10^6/uL (4.5-5.9); Red Cell Distribution Width 17.3 % (11.6-14.8); White Blood Cell Count 8.3 X10^3/uL (4.5-11.0)
[2023-07-30 09:57] LABS: Creatine Kinase 130 U/L (55-170)
[2023-07-30 09:59] LABS: Alanine Aminotransferase 32 IU/L (<50); Albumin 4.2 g/dL (3.5-5.0); Albumin Globulin Ratio 1.8 (1.0-2.8); Alkaline Phosphatase 104 U/L (38-126); Aspartate Aminotransferase 33 IU/L (17-59); BUN Creatinine Ratio 19.7 (6-22); Bilirubin Total 0.5 mg/dL (0.2-1.3); Blood Urea Nitrogen 13 mg/dL (9-20); Calcium 8.9 mg/dL (8.4-10.2); Carbon Dioxide 28 mmol/L (22-32); Chloride 101 mmol/L (98-107); Estimated Glomerular Filt Rate > 60 mL/min (>60); Globulin 2.4 g/dL (1.7-4.1); Glucose 358 mg/dL (80-110); HEMOLYSIS < 15 (0-50); Lipase 285 U/L (23-300); Potassium 4.5 mmol/L (3.4-5.1); Sodium 133 mmol/L (137-145); Total Protein 6.6 g/dL (6.3-8.2)
[2023-07-30 10:01] LABS: Ketones (Beta-Hydroxybutyrate) 0.12 mmol/L (<0.27)
--- NOTE | 2023-07-30 10:06 | DI.RAD.S_ITS ---
PROCEDURE: XR CHEST 1V INDICATIONS: chest pain TECHNIQUE: One view of the chest was acquired. COMPARISON: [facility], CR, XR CHEST 1V, 06/09/2023, 10:43. FINDINGS: Surgical changes and devices: None. Lungs and pleura: Increased bronchovascular markings in bilateral hilar region are seen with mild bronchial wall thickening. No definite focal infiltrate. No pleural effusions or pneumothorax. Mediastinum: Mediastinal contours appear normal. Heart size is normal. Bones and chest wall: No suspicious bony lesions. Overlying soft tissues appear unremarkable. IMPRESSION: Suggestion of reactive airway disease such as bronchitis or viral illness. No definite focal infiltrate. No pleural effusion or pneumothorax. Dictated by: Savage Early M.D. on 07/30/2023 at 10:34 Approved by: Savage Early M.D. on 07/30/2023 at 10:35
[2023-07-30 10:10] LABS: NT-proBNP (BNP-Adult 18+) 111 pg/mL (<125); Troponin I < 0.012 ng/mL (0.01-0.034)
[2023-07-30] MEDS: METOCLOPRAMIDE 10 MG/2 ML INJ IV ×2 (10:29→10:43)
[2023-07-30] MEDS: SODIUM CHLORIDE 0.9% 1,000 ML 1000 ML IV (10:29)
[2023-07-30] MEDS: HYDROMORPHONE 0.5 MG INJ IV ×2 (10:29→11:25)
[2023-07-30] MEDS: INSULIN LISPRO 100 UNIT/ML 3ML VIAL 10 UNIT SUBCUT (11:43)
--- NOTE | 2023-07-30 15:31 | PC.NURSE ---
Pt states his abdominal pain has improved to a 4/10, and states this is manageable for him.
== END 2023-07-30 15:28 | disposition home or self-care (01) ==
PROVIDERS: Emergency Provider Emergency Medicine; Family Provider Nurse Practitioner Family; PCP Family Medicine
DX: E10.65 Type 1 diabetes mellitus with hyperglycemia (principal); Z79.899 Other long term (current) drug therapy
CPT/HCPCS: 36415; 71045; 80053; 81003; 82009; 82550; 82962; 83690; 83880; 84484; 85025; 93005; 96361; 96372; 96374; 96375; 99284; J1170; J1815; J2765

== ENCOUNTER → 2023-08-02 07:43 | Outpatient (CLI) | payer OTHER, SELFPAY ==
[2023-06-01 03:57] VITALS: BMI 26.5
[2023-08-02 09:04] LABS: Add Manual Diff / Slide Review NO; Basophils Absolute Auto 0 /uL (0-100); Basophils Percent Auto 0.4 % (0-2); Eosinophils Absolute Auto 400 /uL (0-450); Hematocrit 38.5 % (41-53); Hemoglobin 12.5 g/dL (13.5-17.5); Lymphocytes Absolute Auto 1500 /uL (1100-4500); Lymphocytes Percent Auto 18.7 % (25-40); Mean Corpuscular HGB Conc 32.4 % (30-36); Mean Corpuscular Hemoglobin 25.8 PG (26-34); Mean Corpuscular Volume 79.8 fL (80-100); Monocytes Absolute Auto 500 /uL (0-900); Monocytes Percent Auto 6.5 % (3-14); Neutrophils Absolute Auto 5600 /uL (1500-7000); Neutrophils Percent Auto 69.4 % (50-75); Platelet Count 320 X10^3/uL (150-400); Red Blood Cell Count 4.83 X10^6/uL (4.5-5.9); Red Cell Distribution Width 17.4 % (11.6-14.8); White Blood Cell Count 8.1 X10^3/uL (4.5-11.0)
[2023-08-02 09:09] LABS: Hemoglobin A1C% w Est Avg Glu 11.1 % (4.0-6.0)
== END ==
PROVIDERS: Family Provider Nurse Practitioner Family; PCP Family Medicine; Referring Provider Family Medicine; Visit Provider Family Medicine
DX: K86.1 Other chronic pancreatitis (principal); E10.9 Type 1 diabetes mellitus without complications; I73.9 Peripheral vascular disease, unspecified
CPT/HCPCS: 36415; 83036; 85025

== ENCOUNTER 2023-08-30 08:30 | Outpatient (RCR) | payer OTHER, SELFPAY ==
[2022-04-25 14:13] VITALS: BMI 23.6
== END 2023-08-30 10:30 ==
LOC: CAR 08:30
PROVIDERS: Family Provider Nurse Practitioner Family; PCP Family Medicine; Referring Provider Student in an Organized Health Care Education/Training Program; Visit Provider Student in an Organized Health Care Education/Training Program
DX: I25.10 Atherosclerotic heart disease of native coronary artery without angina pectoris (principal)
CPT/HCPCS: 93798

== ENCOUNTER → 2023-09-13 14:45 | Outpatient (CLI) | payer OTHER, SELFPAY ==
[2023-06-01 03:57] VITALS: BMI 26.5
--- NOTE | 2023-09-13 14:48 | DI.US.S_ITS ---
PROCEDURE: US THYROID INDICATIONS: F/U Thyroid Nodules TECHNIQUE: Real-time scanning was performed of the thyroid gland, with image documentation. COMPARISON: [facility], US, US THYROID, 10/26/2022, 9:11. FINDINGS: Thyroid: Right lobe measures 4.6 x 2.0 x 2.6 cm. Left lobe measures 2.9 x 1.4 x 1.8 cm. Isthmus is 0.4 cm thick. The right thyroid is fairly homogeneous with a few scattered calcifications. The left lobe is diminutive and quite heterogeneous and predominantly replaced by a dominant nodule. Nodule number: 1 Location: Left thyroid Size: 1.5 x 1.3 x 1.1 cm, previously 2.1 x 1.4 x 1.8 cm. Composition: Solid Echogenicity: Heterogeneous, isoechoic to mildly hypoechoic Shape: wider than tall. Margins: Cannot be determined Echogenic foci: Macro and punctate calcifications Total points: Seven ACR TI-RADS category: Highly suspicious. There is a bulky enlarged lymph node or mass in the left neck with increased hilar vascularity measuring 2.5 x 2.3 x 1.5 cm, stable. This is less prominent compared to the prior exam. IMPRESSION: Slightly decreased size of an indistinct, heterogeneous, highly suspicious left thyroid nodule. Consider FNA if not previously adequately evaluated. Stable enlarged left neck mass suggestive of a lymph node ACR TI-RADS definitions and recommendations: TI-RADS 1 (benign): 0 points. FNA not needed. TI-RADS 2 (not suspicious): 2 points. FNA not needed. TI-RADS 3 (mildly suspicious): 3 points. * FNA if 2.5 cm or larger, follow up if 1.5 cm or larger (at 1, 3, and 5 years). TI-RADS 4 (moderately suspicious): 4-6 points. * FNA if 1.5 cm or larger, follow up if 1 cm or larger (at 1, 2, 3, and 5 years). TI-RADS 5 (highly suspicious): 7 points or more. * FNA if 1 cm or larger, follow up if 0.5 cm or larger (every year for 5 years). Dictated by: Pamella Ye M.D. on 09/13/2023 at 17:32 Approved by: Pamella Ye M.D. on 09/13/2023 at 17:42
== END ==
PROVIDERS: Family Provider Nurse Practitioner Family; PCP Family Medicine; Referring Provider Nurse Practitioner Family; Visit Provider Nurse Practitioner Family
DX: E04.1 Nontoxic single thyroid nodule (principal)
CPT/HCPCS: 76536

== ENCOUNTER 2023-09-29 17:17 | Emergency (ER) | payer OTHER, SELFPAY ==
[2023-06-01 03:57] VITALS: BMI 26.5
[2023-09-29] VITALS (13 sets, daily range): BP systolic 137–147; BP diastolic 65–94; PULSE 79–91; RESP 17–34; O2SAT 94–99; BMI 26.9
--- NOTE | 2023-09-29 17:28 | PC.NURSE ---
This patient asked if this RN could call and inform her that he was checked in. This RN called and informed that patient had checked in to the emergency department.
--- NOTE | 2023-09-29 17:34 | EKG_ITS ---
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
--- NOTE | 2023-09-29 18:03 | DI.RAD.S_ITS ---
PROCEDURE: XR CHEST 1V INDICATIONS: chest pain TECHNIQUE: One view of the chest was acquired. COMPARISON: [facility], CR, XR CHEST 1V, 07/30/2023, 10:21. [facility], CR, XR CHEST 1V, 06/09/2023, 10:43. FINDINGS: Surgical changes and devices: None. Lungs and pleura: Possible retrocardiac opacity. Right lung is clear. Mediastinum: Mediastinal contours appear normal. Heart size is normal. Bones and chest wall: No suspicious bony lesions. Overlying soft tissues appear unremarkable. IMPRESSION: Possible retrocardiac opacity, may represent atelectasis or consolidation. Right lung is clear. Dictated by: Jordan Peña M.D. on 09/29/2023 at 17:34 Approved by: Jordan Peña M.D. on 09/29/2023 at 17:34
[2023-09-29] MEDS: ASPIRIN 81 MG CHEW TAB 324 MG PO (18:16)
--- NOTE | 2023-09-29 18:19 | PC.NURSE ---
pt reports he took 24 mg Zofran, 50 mg (25 mg x 2, Phenergen and compazine [address] Andres aware
[2023-09-29 18:21] LABS: INR 1.1 (0.9-1.3); Prothrombin Time 12.3 SECONDS (9.4-12.5)
[2023-09-29 18:24] LABS: Alanine Aminotransferase 23 IU/L (<50); Albumin 4.4 g/dL (3.5-5.0); Albumin Globulin Ratio 1.7 (1.0-2.8); Alkaline Phosphatase 96 U/L (38-126); Aspartate Aminotransferase 27 IU/L (17-59); BUN Creatinine Ratio 19.3 (6-22); Bilirubin Total 0.4 mg/dL (0.2-1.3); Blood Urea Nitrogen 11 mg/dL (9-20); Calcium 8.6 mg/dL (8.4-10.2); Carbon Dioxide 23 mmol/L (22-32); Chloride 107 mmol/L (98-107); Creatine Kinase 185 U/L (55-170); Estimated Glomerular Filt Rate > 60 mL/min (>60); Globulin 2.6 g/dL (1.7-4.1); Glucose 247 mg/dL (80-110); HEMOLYSIS < 15 (0-50); Lipase 72 U/L (23-300); Magnesium 1.8 mg/dL (1.6-2.3); PTT Partial Thromboplastin Tim 38 SECONDS (25.1-36.5); Sodium 138 mmol/L (137-145)
[2023-09-29 18:25] LABS: Lipase 73 U/L (23-300)
[2023-09-29] MEDS: HYDROMORPHONE 0.5 MG INJ IV (18:26)
[2023-09-29 18:32] LABS: Add Manual Diff / Slide Review NO; Basophils Absolute Auto 100 /uL (0-100); Basophils Percent Auto 0.9 % (0-2); Eosinophils Absolute Auto 300 /uL (0-450); Eosinophils Percent Auto 3.9 % (2-4); Hematocrit 39.7 % (41-53); Hemoglobin 12.7 g/dL (13.5-17.5); Lymphocytes Absolute Auto 1200 /uL (1100-4500); Mean Corpuscular HGB Conc 32.1 % (30-36); Mean Corpuscular Hemoglobin 26.3 PG (26-34); Mean Corpuscular Volume 81.8 fL (80-100); Monocytes Absolute Auto 600 /uL (0-900); Neutrophils Absolute Auto 4500 /uL (1500-7000); Neutrophils Percent Auto 68.2 % (50-75); Platelet Count 262 X10^3/uL (150-400); Red Blood Cell Count 4.85 X10^6/uL (4.5-5.9); Red Cell Distribution Width 16.9 % (11.6-14.8); White Blood Cell Count 6.7 X10^3/uL (4.5-11.0)
[2023-09-29 18:36] LABS: NT-proBNP (BNP-Adult 18+) 214 pg/mL (<125); Troponin I < 0.012 ng/mL (0.01-0.034)
--- NOTE | 2023-09-29 19:43 | ED_ITS ---
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 Feldman, believes he had a follow up chemical stress test few months ago that was reassuring, also has history of chronic pancreatitis, for which he takes oxycodone and immediate release morphine. He has epigastric area discomfort since this morning, with multiple episodes of nonbloody emesis. No black or red stools. No loose stools. Emesis without black or red color. With each episode of emesis he does not necessarily feel any relief with epigastric area. Feels somewhat like previous cardiac problems, but also feels somewhat like his pancreatitis problems. Denies history of peptic ulcers. Has history of atrial fibrillation, status post ablation procedure [facility] August 2022, takes dabigatran chronic anticoagulation. History of IV contrast allergy, anticipates imaging abdomen, says that he gets premedication with Solu-Medrol and Benadryl, and usually tolerates the procedure quite well. Requests Reglan for nausea control. Related Data Home Medications Medication Instructions Recorded Confirmed clopidogrel 75 mg tablet (Plavix) 75 mg PO QAM ##0 04/15/08 09/03/23 acetaminophen 325 mg tablet (Pain 500 mg PO Q4HP PRN Pain, Mild 09/25/17 09/03/23 Relief (acetaminophen)) dabigatran etexilate 150 mg 150 mg PO BID 03/24/18 09/03/23 capsule (Pradaxa) lisinopril 2.5 mg tablet 2.5 mg PO QAM blood pressure 04/28/19 09/03/23 insulin lispro 100 unit/mL See Rx Instructions SUBCUT 03/15/20 09/03/23 subcutaneous solution (Humalog USEASDIRECTD U-100 Insulin) duloxetine 60 mg capsule,delayed 60 mg PO QAM 11/01/21 09/03/23 release (Cymbalta) ondansetron 8 mg disintegrating 8 mg PO PRN PRN nausea/vomiting 02/25/22 09/03/23 tablet morphine 15 mg tablet,extended 15 mg PO .HS 06/06/22 09/03/23 release (MS Contin) amlodipine 5 mg tablet 10 mg PO DAILY 01/19/23 09/03/23 rosuvastatin 10 mg tablet 40 mg PO DAILY 01/19/23 09/03/23 diphenhydramine HCl 12.5 mg/5 mL 50 mg PO Q6H PRN nausea and 06/01/23 09/03/23 oral elixir vomiting insulin glargine 10 units SUBCUT QAM 06/01/23 09/03/23 ipratropium-albuterol 3 ml inhalation 4XD PRN For 06/01/23 09/03/23 shortness of breath metoprolol succinate 25 mg 37.5 mg PO BID 06/01/23 09/03/23 tablet,extended release 24 hr tadalafil 20 mg PO PRN PRN 1hr before sexual 06/01/23 09/03/23 activity pantoprazole 40 mg tablet,delayed 40 mg PO BID 06/06/23 09/03/23 release ezetimibe 10 mg tablet 10 mg PO DAILY 07/03/23 09/03/23 octreotide acetate 100 mcg/mL 100 mcg SUBCUT TID 07/03/23 09/03/23 injection solution Previous Rx's Medication Instructions Recorded mwoqvi-bjukjmon-zoihqfu 1 cap PO QID #120 caps 03/15/20 24,000-76,000-120,000 unit capsule,delayed rel (Creon) trazodone 50 mg tablet 50 mg PO BEDTIME PRN insomnia #30 03/03/22 tabs oxycodone 7.5 mg tablet,oral ONLY 7.5 mg PO Q4H PRN pain #30 ea 04/18/22 (not for feeding tubes) benzonatate 100 mg capsule 100 mg PO TID PRN cough #45 caps 07/03/23 methylphenidate HCl 20 mg tablet 20 mg PO TID #90 tabs 08/02/23 Allergies Allergy/AdvReac Type Severity Reaction Status Date / Time Iodine and Iodide Containing Allergy Severe Anaphylaxis Verified 09/29/23 18:07 Produc [IODINE AND IODIDE CONTAINING PRODUC] Sulfa (Sulfonamide Allergy Severe Anaphylaxis Verified 09/29/23 18:07 Antibiotics) [SULFA (SULFONAMIDE ANTIBIOTICS)] gabapentin AdvReac Intermediate Dizziness Verified 07/06/24 18:07 Fzhgnwd-[id number]-PqO Reductase AdvReac Intermediate Verified 09/29/23 18:07 Inhibitor metformin AdvReac Mild Verified 09/29/23 18:07 Review of Systems Review of Systems Narrative: per HPI Patient History Medical History Chronic low back pain Coronary artery disease Thyroid nodule Diabetes mellitus Atrial flutter with rapid ventricular response Sepsis Claudication in peripheral vascular disease History of cardioversion (03/07/21) Campylobacter enteritis Exocrine pancreatic insufficiency Acute dehydration Enteritis, enteropathogenic E. coli Paroxysmal atrial fibrillation Psoriasis Narcolepsy GERD (gastroesophageal reflux disease) Hyperlipidemia HTN (hypertension) Insulin dependent diabetes mellitus with complications Peripheral vascular disease Gastroenteritis Pancreatitis Atrial flutter with rapid ventricular response Surgical History History of epididymectomy Hx of biopsy History of femoropopliteal bypass H/O exploratory laparotomy Family History Father Colon cancer Mother Narcolepsy Grandmother Narcolepsy Social History household members: spouse Smoking Status: Former smoker alcohol intake: former Smoking Status: Former smoker alcohol intake frequency: holidays/special occasions only Substance Use Type: marijuana Exam Narrative Exam Narrative: GENERAL: Well-developed patient, in mild distress. HEAD: Atraumatic. Normocephalic. EYES: Pupils equal round and reactive. Extraocular motions intact. No scleral icterus. No injection or drainage. ENT: Nose without bleeding, purulent drainage. Throat without erythema, tonsillar hypertrophy or exudate. Airway patent. NECK: Trachea midline. Non tender CARDIOVASCULAR: Regular rate and rhythm without murmurs, gallops, or rubs. RESPIRATORY: Clear to auscultation. Breath sounds equal bilaterally. No wheezes, rales, or rhonchi. GASTROINTESTINAL: Abdomen with some tenderness epigastrium and supraumbilical area, no guarding rebound, nondistended. Unremarkable bowel tones. EXTREMITIES: No edema or joint tenderness. BACK: Nontender without deformity or crepitance. No flank tenderness. NEURO: AOx3. SKIN: No rash or erythema of visible areas Initial Vital Signs Initial Vital Signs: Vital Signs Oxygen Delivery Method Room Air 09/29/23 17:22 Course Orders Ordered: Discontinued Medications Aspirin (Aspirin 81 Mg Chew Tab) 324 mg PO NOW ONE Stop: 09/29/23 18:04 Last Admin: 09/29/23 18:16 Dose: 324 mg Documented By: POLLY Diphenhydramine HCl (Diphenhydramine 50 Mg/Ml Vial) 50 mg IV NOW ONE Stop: 09/29/23 19:52 Last Admin: 09/29/23 20:04 Dose: 50 mg Documented By: ALLISON Famotidine (Famotidine 20 Mg/2 Ml Vial) 20 mg IV NOW KATHY Last Admin: 09/29/23 20:02 Dose: 20 mg Documented By: ALLISON Hydromorphone HCl (Hydromorphone 0.5 Mg Inj) 0.5 mg IV NOW ONE Stop: 09/29/23 18:24 Last Admin: 09/29/23 18:26 Dose: 0.5 mg Documented By: POLLY Sodium Chloride (Normal Saline 0.9%) 1,000 mls @ 1,000 mls/hr IV BOLUS ONE Stop: 09/29/23 20:54 Last Infusion: 09/29/23 22:12 Dose: Infused Documented By: Admin: 09/29/23 20:05 Dose: 1,000 mls/hr Documented By: ALLISON Methylprednisolone (Methylprednisolone 125 Mg/2 Ml Vial) 125 mg IV NOW ONE Stop: 09/29/23 19:51 Last Admin: 09/29/23 20:00 Dose: 125 mg Documented By: ALLISON Metoclopramide HCl (Metoclopramide 10 Mg/2 Ml Inj) 10 mg IV NOW ONE Stop: 09/29/23 19:51 Last Admin: 09/29/23 20:03 Dose: 10 mg Documented By: ALLISON Morphine Sulfate (Morphine 4 Mg/Ml Inj) 4 mg IV NOW ONE Stop: 09/29/23 19:56 Last Admin: 09/29/23 20:05 Dose: 4 mg Documented By: ALLISON Morphine Sulfate (Morphine 4 Mg/Ml Inj) 4 mg IV NOW ONE Stop: 09/29/23 20:50 Last Admin: 09/29/23 20:59 Dose: 4 mg Documented By: Ondansetron HCl (Ondansetron 4 Mg Odt Prepack) 1 bottle MISC DIRECTED ONE Stop: 09/29/23 22:50 Last Admin: 09/29/23 22:57 Dose: 1 bottle Documented By: ALLISON Vital Signs Vital signs: Vital Signs - 8 hr 09/29/23 17:22 09/29/23 17:45 09/29/23 17:46 Pulse Rate 91 H 88 Respiratory Rate 34 H 20 Blood Pressure Pulse Oximetry 98 Oxygen Delivery Method Room Air Room Air 09/29/23 17:46 09/29/23 18:00 09/29/23 18:01 Pulse Rate 86 85 Respiratory Rate 21 Blood Pressure 137/94 H Pulse Oximetry 99 99 Oxygen Delivery Method 09/29/23 18:01 09/29/23 19:00 09/29/23 19:00 Pulse Rate 83 Respiratory Rate 17 Blood Pressure 140/65 147/68 H Pulse Oximetry 99 Oxygen Delivery Method 09/29/23 19:30 09/29/23 19:30 09/29/23 20:00 Pulse Rate 85 85 Respiratory Rate 25 H 21 Blood Pressure 141/74 H Pulse Oximetry 98 97 Oxygen Delivery Method 09/29/23 20:00 09/29/23 20:30 09/29/23 21:00 Pulse Rate 84 83 Respiratory Rate 29 H 25 H Blood Pressure 139/81 Pulse Oximetry 98 98 Oxygen Delivery Method 09/29/23 21:30 09/29/23 22:00 Pulse Rate 80 79 Respiratory Rate 19 22 Blood Pressure Pulse Oximetry 95 96 Oxygen Delivery Method MDM - Chest Pain Lab Data Attestation: I reviewed the patient's lab results. 09/29/23 17:55 09/29/23 17:55 Labs: Lab Results 09/29/23 09/29/23 09/29/23 Range/Units 17:55 17:55 21:00 WBC 6.7 (4.5-11.0) X10^3/uL RBC 4.85 (4.5-5.9) X10^6/uL Hgb 12.7 L (13.5-17.5) g/dL Hct 39.7 L (41-53) % MCV 81.8 (80-100) fL MCH 26.3 (26-34) PG MCHC 32.1 (30-36) % RDW 16.9 H (11.6-14.8) % Plt Count 262 (150-400) X10^3/uL Neut % (Auto) 68.2 (50-75) % Lymph % (Auto) 18.0 L (25-40) % [place] % (Auto) 9.0 (3-14) % Eos % (Auto) 3.9 (2-4) % Baso % (Auto) 0.9 (0-2) % Neut # (Auto) 4500 (7216-1114) /uL Lymph # (Auto) 1200 (0331-2738) /uL [place] # (Auto) 600 (0-900) /uL Eos # (Auto) 300 (0-450) /uL Baso # (Auto) 100 (0-100) /uL PT 12.3 (9.4-12.5) SECONDS INR 1.1 (0.9-1.3) APTT 38 H (25.1-36.5) SECONDS Sodium 138 (137-145) mmol/L Potassium 4.0 (3.4-5.1) mmol/L Chloride 107 (98-107) mmol/L Carbon Dioxide 23 (22-32) mmol/L BUN 11 (9-20) mg/dL Creatinine 0.57 L (0.66-1.25) mg/dL Estimated GFR > 60 (>60) mL/min BUN/Creatinine Ratio 19.3 (6-22) Glucose 247 H (80-110) mg/dL Calcium 8.6 (8.4-10.2) mg/dL Magnesium 1.8 (1.6-2.3) mg/dL Total Bilirubin 0.4 (0.2-1.3) mg/dL AST 27 (17-59) IU/L ALT 23 (<50) IU/L Alkaline Phosphatase 96 (38-126) U/L Total Creatine Kinase 185 H (55-170) U/L Troponin I < 0.012 < 0.012 (0.01-0.034) ng/mL NT-Pro-B Natriuret Pep 214 H (<125) pg/mL Total Protein 7.0 (6.3-8.2) g/dL Albumin 4.4 (3.5-5.0) g/dL Globulin 2.6 (1.7-4.1) g/dL Albumin/Globulin Ratio 1.7 (1.0-2.8) Lipase 72 73 (23-300) U/L Imaging Data Chest x-ray: Radiologist's Impression: [address] [place] [address] XRay Report Signed Patient: Jann Diehl MR#: [id number] : 1955 Acct:[id number] Age/Sex: 68 / M Date of Service: 09/29/23 Loc: ED Accession Number: [id number] Procedure: XR chest 1V Ordering Provider: Jonathan Mercer MD PROCEDURE: XR CHEST 1V INDICATIONS: chest pain TECHNIQUE: One view of the chest was acquired. COMPARISON: [facility], CR, XR CHEST 1V, 07/30/2023, 10:21. [facility], CR, XR CHEST 1V, 06/09/2023, 10:43. FINDINGS: Surgical changes and devices: None. Lungs and pleura: Possible retrocardiac opacity. Right lung is clear. Mediastinum: Mediastinal contours appear normal. Heart size is normal. Bones and chest wall: No suspicious bony lesions. Overlying soft tissues appear unremarkable. IMPRESSION: Possible retrocardiac opacity, may represent atelectasis or consolidation. Right lung is clear. Dictated by: Jordan Peña M.D. on 09/29/2023 at 17:34 Approved by: Jordan Peña M.D. on 09/29/2023 at 17:34 CT scan - abdomen/pelvis: Radiologist's Impression: [address] [address] [address] Scan Report Signed Patient: Jann Diehl MR#: [id number] : 1955 Acct:[id number] Age/Sex: 68 / M Date of Service: 09/29/23 Loc: ED Accession Number: [id number] Procedure: CT abdomen pelvis w con Ordering Provider: Jonathan Mercer MD PROCEDURE: CT ABDOMEN PELVIS W CON INDICATIONS: epig colvin, hx pancreatitis/chornic TECHNIQUE: After the administration of intravenous contrast, axial sections acquired from the lung bases to the pubic symphysis. Coronal and sagittal reformats were performed. For radiation dose reduction, the following was used: automated exposure control, adjustment of mA and/or kV according to patient size. COMPARISON: [facility], CT, CT ABDOMEN PELVIS W CON, 05/23/2023, 21:10. [facility], CT, CT ABDOMEN PELVIS W CON, 10/31/2022, 22:48. FINDINGS: Image quality: Diagnostic. Lower Chest: Lung bases are clear. Small hiatal hernia. No significant esophageal wall thickening. ABDOMEN: Liver: Heterogeneous appearance of the liver as before. No focal mass lesions. Mild nodular contour of the liver not significantly changed. Gallbladder: Surgically absent. Biliary ducts: No biliary dilation. Pancreas: No ductal dilation. No peripancreatic inflammation. Spleen: Size is within normal limits. Adrenal Glands: No adrenal nodules. Kidneys and Ureters: No hydronephrosis. No solid mass. No complex renal cystic lesion which requires follow up. Stomach and Bowel: No gastric distension. Duodenum and proximal small bowel appear unremarkable. Extensive colonic diverticulosis with areas of circumferential wall thickening and stranding of the sigmoid colon and distal descending colon. Additionally, there is moderate inflammatory changes of the distal and terminal ileum. Mild wall thickening. Mesenteric stranding noted in the right lower quadrant. No evidence for small bowel obstruction. Normal appendix. Peritoneum: No abnormal intraperitoneal fluid. No free air. Ventral Wall: There is a fat-containing umbilical hernia without acute inflammation. Abdominal Nodes: No retroperitoneal or mesenteric adenopathy by size criteria. Vessels: Scattered atherosclerotic calcifications of the abdominal aorta and iliac vessels without aneurysmal dilatation. The inferior vena cava appears patent. PELVIS: Pelvic Organs: Unremarkable. Bladder: No bladder wall thickening, accounting for underdistention. Pelvic Nodes: No enlarged lymph nodes. Miscellaneous: No inguinal hernias are seen. Bones: No aggressive osseous abnormality. No acute vertebral body compression fractures. Multilevel spondylitic changes throughout the imaged spine. No suspicious osseous lesions. IMPRESSION: Circumferential wall thickening and inflammatory changes of the distal descending colon, sigmoid colon, and distal/terminal ileum which may represent gastroenteritis. Concurrent colonic diverticulosis. No evidence for bowel obstruction, perforation, or abscess formation. Of note, mild tethering appearance of the mesentery of the right lower quadrant in region of inflammation. Recommend short interval follow-up CT after resolution of acute findings. Redemonstration of heterogeneous enhancement of the liver parenchyma with mild nodular liver contours suggestive of cirrhosis. No focal hepatic lesions. Hepatic steatosis may have a similar appearance. Other nonacute findings as above. Dictated by: Fernando Miller M.D. on 09/29/2023 at 20:43 Approved by: Fernando Miller M.D. on 09/29/2023 at 20:51 ECG Data Attestation: I personally reviewed and interpreted this ECG as follows: Interpretation: Normal sinus rhythm with rate of 90, some significant movement artifact, no obvious ST segment elevation or depression changes. NM 134, QRS 102, QTC 479. MDM Narrative Medical decision making narrative: 68-year-old male with epigastric and lower chest pain at rest, history of CAD prior remote stenting, history of chronic pancreatitis, on exam has some tenderness in the epigastrium, seems more likely by physical exam GI related. Labs sent, no leukocytosis, hemoglobin normal, LFTs and lipase unremarkable. EKG without ischemic changes, initial troponin negative. We will obtain interval troponin. CT abdomen and pelvis imaging, history of dye allergy, premedication as in previous events with IV Solu-Medrol/Benadryl, CT abdomen and pelvis imaging requested. He requests Reglan, ordered. Morphine for pain also ordered. Keep NPO Patient premedicated, CT abdomen and pelvis with IV contrast to be performed. Still having pain, we will repeat IV morphine dose. CT abdomen and pelvis. Impressions: ?Circumferential wall thickening inflammatory changes of the distal descending colon, sigmoid colon and distal/terminal ileum which may represent gastroenteritis. Concurrent colonic diverticulosis. No evidence for bowel obstruction, perforation or abscess formation. Of note, mild tethering appearance of the mesentery of the right lower quadrant in the region of inflammation. Recommend short interval follow up CT after resolution of acute findings. Redemonstration of heterogeneous enhancement of the liver parenchyma with mild nodular liver contour suggestive of cirrhosis. No focal hepatic lesions. Hepatic steatosis may have a similar appearance. Other nonacute findings above. See radiologist report Patient feels better, like to go home, given copy of his report. Zofran home pack for nausea control as needed. Follow up with his regular doctor on Sunday in 2 days advised, return precautions, improved/stable, discharged home per patient request. Mesenteric tethering incidental finding noted, consider repeat CT scanning as an outpatient, copy of report given to the patient with discussion of that finding and recommendation. Discharged home per patient request. Critical Care Time Critical Care Time Critical Care Time: Yes Total Critical Care Time: 31 Attestation: The high probability of a clinically significant, sudden or life threatening deterioration of the [gastrointestinal, abdominopelvic] system(s) required my full and direct attention, intervention and personal management. The aggregate critical care time was [31] minutes. This time is in addition to time spent performing reported procedures but includes the following: [x] Data Review and interpretation [x] Patient assessment and monitoring of vital signs [x] Documentation [x] Medication orders and management Discharge Plan Departure Patient Disposition: Home Clinical Impression: Chest pain, Abdominal pain, History of chronic pancreatitis, History of coronary artery disease Activity Restrictions/Additional Instructions: Abdominal discomfort, history of coronary artery disease, history of chronic pancreatitis, EKG and blood testing not suggestive of heart attack at this time. Tenderness on abdomen. CT abdomen and pelvis study done, there is inflammatory change in the large in the small bowel consistent with gastroenteritis, likely viral infection. Symptoms much better, you wanted to go home. You have chronic pain medication to use if needed. Antinausea Zofran home pack to use if needed. Recheck with your regular doctor on Sunday. Return to this/nearest emergency department for any change worsening symptoms or any concerns prior Copy of your report provided, there was some radiologist's concern about tethering and some portion of your mesentery, consider repeat testing CT scanning as an outpatient, discussed with your provider. Prescriptions: No Action clopidogrel [Plavix] 75 mg Tablet 75 mg PO QAM Qty: 0 methylphenidate HCl 20 mg tablet 20 mg PO TID Qty: 90 0RF insulin lispro [Humalog U-100 Insulin] 100 unit/mL solution See Rx Instructions SUBCUT USEASDIRECTD Rx Instructions: 2-4 sliding scale SUBCUT use as directed; Creon 24,000-76,000 -120,000 unit capsule,delayed release(DR/EC) 1 cap PO QID Qty: 120 12RF Rx Instructions: administer with meals and/or snacks prn sliding scale. 1 capsule for every 600 calories morphine [MS Contin] 15 mg tablet extended release 15 mg PO .HS rosuvastatin 10 mg tablet 40 mg PO DAILY amlodipine 5 mg tablet 10 mg PO DAILY duloxetine [Cymbalta] 60 mg capsule,delayed release(DR/EC) 60 mg PO QAM ezetimibe 10 mg tablet 10 mg PO DAILY octreotide acetate 100 mcg/mL solution 100 mcg SUBCUT TID benzonatate 100 mg capsule 100 mg PO TID PRN (Reason: cough) Qty: 45 0RF acetaminophen [Pain Relief (acetaminophen)] 325 MG tablet 500 mg PO Q4HP PRN (Reason: Pain, Mild) dabigatran etexilate [Pradaxa] 150 mg Capsule 150 mg PO BID ondansetron 8 mg tablet,disintegrating 8 mg PO PRN PRN (Reason: nausea/vomiting) trazodone 50 mg Tablet 50 mg PO BEDTIME PRN (Reason: insomnia) Qty: 30 0RF Rx Instructions: can take 1/2 tab (25mg) if 50 is too strong metoprolol succinate 25 mg Tablet Extended Release 24 Hr 37.5 mg PO BID ipratropium-albuterol inhaler 3 ml inhalation 4XD PRN (Reason: For shortness of breath) tadalafil 20 mg PO PRN PRN (Reason: 1hr before sexual activity) diphenhydramine HCl 12.5 mg/5 mL elixir 50 mg PO Q6H PRN (Reason: nausea and vomiting) insulin glargine 10 units SUBCUT QAM pantoprazole 40 mg Tablet,Delayed Release (Dr/Ec) 40 mg PO BID lisinopril 2.5 mg Tablet 2.5 mg PO QAM oxycodone 7.5 mg tablet, oral only 7.5 mg PO Q4H PRN (Reason: pain) Qty: 30 0RF Referrals: Eric Huang MD [Primary Care Provider] - Stand Alone Forms: Patient Portal/API
--- NOTE | 2023-09-29 19:56 | DI.CT.S_ITS ---
PROCEDURE: CT ABDOMEN PELVIS W CON INDICATIONS: epig colvin, hx pancreatitis/chornic TECHNIQUE: After the administration of intravenous contrast, axial sections acquired from the lung bases to the pubic symphysis. Coronal and sagittal reformats were performed. For radiation dose reduction, the following was used: automated exposure control, adjustment of mA and/or kV according to patient size. COMPARISON: [facility], CT, CT ABDOMEN PELVIS W CON, 05/23/2023, 21:10. [facility], CT, CT ABDOMEN PELVIS W CON, 10/31/2022, 22:48. FINDINGS: Image quality: Diagnostic. Lower Chest: Lung bases are clear. Small hiatal hernia. No significant esophageal wall thickening. ABDOMEN: Liver: Heterogeneous appearance of the liver as before. No focal mass lesions. Mild nodular contour of the liver not significantly changed. Gallbladder: Surgically absent. Biliary ducts: No biliary dilation. Pancreas: No ductal dilation. No peripancreatic inflammation. Spleen: Size is within normal limits. Adrenal Glands: No adrenal nodules. Kidneys and Ureters: No hydronephrosis. No solid mass. No complex renal cystic lesion which requires follow up. Stomach and Bowel: No gastric distension. Duodenum and proximal small bowel appear unremarkable. Extensive colonic diverticulosis with areas of circumferential wall thickening and stranding of the sigmoid colon and distal descending colon. Additionally, there is moderate inflammatory changes of the distal and terminal ileum. Mild wall thickening. Mesenteric stranding noted in the right lower quadrant. No evidence for small bowel obstruction. Normal appendix. Peritoneum: No abnormal intraperitoneal fluid. No free air. Ventral Wall: There is a fat-containing umbilical hernia without acute inflammation. Abdominal Nodes: No retroperitoneal or mesenteric adenopathy by size criteria. Vessels: Scattered atherosclerotic calcifications of the abdominal aorta and iliac vessels without aneurysmal dilatation. The inferior vena cava appears patent. PELVIS: Pelvic Organs: Unremarkable. Bladder: No bladder wall thickening, accounting for underdistention. Pelvic Nodes: No enlarged lymph nodes. Miscellaneous: No inguinal hernias are seen. Bones: No aggressive osseous abnormality. No acute vertebral body compression fractures. Multilevel spondylitic changes throughout the imaged spine. No suspicious osseous lesions. IMPRESSION: Circumferential wall thickening and inflammatory changes of the distal descending colon, sigmoid colon, and distal/terminal ileum which may represent gastroenteritis. Concurrent colonic diverticulosis. No evidence for bowel obstruction, perforation, or abscess formation. Of note, mild tethering appearance of the mesentery of the right lower quadrant in region of inflammation. Recommend short interval follow-up CT after resolution of acute findings. Redemonstration of heterogeneous enhancement of the liver parenchyma with mild nodular liver contours suggestive of cirrhosis. No focal hepatic lesions. Hepatic steatosis may have a similar appearance. Other nonacute findings as above. Dictated by: Fernando Miller M.D. on 09/29/2023 at 20:43 Approved by: Fernando Miller M.D. on 09/29/2023 at 20:51
[2023-09-29] MEDS: methylPREDNISolone 125 MG/2 ML VIAL IV (20:00)
[2023-09-29] MEDS: FAMOTIDINE 20 MG/2 ML VIAL IV (20:02)
[2023-09-29] MEDS: METOCLOPRAMIDE 10 MG/2 ML INJ IV (20:03)
[2023-09-29] MEDS: diphenhydrAMINE 50 MG/ML VIAL IV (20:04)
[2023-09-29] MEDS: SODIUM CHLORIDE 0.9% 1,000 ML 1000 ML IV (20:05)
[2023-09-29] MEDS: MORPHINE 4 MG/ML INJ IV ×2 (20:05→20:59)
[2023-09-29 21:33] LABS: Troponin I < 0.012 ng/mL (0.01-0.034)
--- NOTE | 2023-09-29 22:00 | PC.NURSE ---
pt aao x 3 resp even and unlabored states starting to feel better SR on the monitor, at bedside, pt waiting results of CT and dispo
[2023-09-29] MEDS: ONDANSETRON 4 MG ODT PREPACK 1 BOTTLE MISC (22:57)
== END 2023-09-29 23:05 | disposition home or self-care (01) ==
PROVIDERS: Emergency Medicine; Emergency Provider Emergency Medicine; Family Provider Nurse Practitioner Family; PCP Family Medicine
DX: R07.9 Chest pain, unspecified (principal); R10.13 Epigastric pain; Z86.79 Personal history of other diseases of the circulatory system; Z87.19 Personal history of other diseases of the digestive system
CPT/HCPCS: 36415; 71045; 74177; 80053; 82550; 83690; 83735; 83880; 84484; 85025; 85610; 85730; 93005; 96361; 96374; 96375; 96376; 99285; J1170; J1200; J2270; J2765; J2919; Q9967

== ENCOUNTER 2023-11-01 13:37 | Emergency (ER) | payer OTHER, SELFPAY ==
[2023-06-01 03:57] VITALS: BMI 26.5
[2023-11-01] VITALS (11 sets, daily range): BP systolic 124–177; BP diastolic 59–84; PULSE 82–107; RESP 13–22; TEMP 36.6; O2SAT 97–99; BMI 26.5
--- NOTE | 2023-11-01 13:46 | DI.RAD.S_ITS ---
PROCEDURE: XR CHEST 1V INDICATIONS: chest pain TECHNIQUE: One view of the chest was acquired. COMPARISON: [facility], CR, XR CHEST 1V, 09/29/2023, 18:18. [facility], CR, XR CHEST 1V, 07/30/2023, 10:21. FINDINGS: Surgical changes and devices: None. Lungs and pleura: Low lung volumes. No dense airspace disease or pleural effusions. Mediastinum: Cardiomediastinal contours are unchanged Bones and chest wall: Degenerative findings IMPRESSION: Limited single view portable study with low lung volumes. No acute abnormality Dictated by: Jef Chávez M.D. on 11/01/2023 at 15:06 Approved by: Jef Chávez M.D. on 11/01/2023 at 15:07
--- NOTE | 2023-11-01 13:49 | EKG_ITS ---
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
--- NOTE | 2023-11-01 14:14 | ED.CHESTPAIN ---
HPI - Chest Pain General Chief Complaint: Chest Pain Stated Complaint: chest/ abd pain Time Seen by Provider: 11/01/23 14:06 Source: patient Mode of arrival: Ambulatory Limitations: no limitations History of Present Illness HPI narrative: Patient is a 60-year-old male. Well known to myself. Has a history of pancreatitis. Is here for evaluation of epigastric/left upper quadrant abdominal pain. He states he feels bloated. Is having diarrhea. Is having nausea. Feels like his prior history of diverticulitis. He tried all of his medications at home that he normally takes for nausea and pain without any improvement. Symptoms started approximately 12 hours ago. Related Data Home Medications Medication Instructions Recorded Confirmed clopidogrel 75 mg tablet (Plavix) 75 mg PO QAM ##0 04/15/08 09/03/23 acetaminophen 325 mg tablet (Pain 500 mg PO Q4HP PRN Pain, Mild 09/25/17 09/03/23 Relief (acetaminophen)) dabigatran etexilate 150 mg 150 mg PO BID 03/24/18 09/03/23 capsule (Pradaxa) lisinopril 2.5 mg tablet 2.5 mg PO QAM blood pressure 04/28/19 09/03/23 insulin lispro 100 unit/mL See Rx Instructions SUBCUT 03/15/20 09/03/23 subcutaneous solution (Humalog USEASDIRECTD U-100 Insulin) duloxetine 60 mg capsule,delayed 60 mg PO QAM 11/01/21 09/03/23 release (Cymbalta) ondansetron 8 mg disintegrating 8 mg PO PRN PRN nausea/vomiting 02/25/22 09/03/23 tablet morphine 15 mg tablet,extended 15 mg PO .HS 06/06/22 09/03/23 release (MS Contin) amlodipine 5 mg tablet 10 mg PO DAILY 01/19/23 09/03/23 rosuvastatin 10 mg tablet 40 mg PO DAILY 01/19/23 09/03/23 diphenhydramine HCl 12.5 mg/5 mL 50 mg PO Q6H PRN nausea and 06/01/23 09/03/23 oral elixir vomiting insulin glargine 10 units SUBCUT QAM 06/01/23 09/03/23 ipratropium-albuterol 3 ml inhalation 4XD PRN For 06/01/23 09/03/23 shortness of breath metoprolol succinate 25 mg 37.5 mg PO BID 06/01/23 09/03/23 tablet,extended release 24 hr tadalafil 20 mg PO PRN PRN 1hr before sexual 06/01/23 09/03/23 activity pantoprazole 40 mg tablet,delayed 40 mg PO BID 06/06/23 09/03/23 release ezetimibe 10 mg tablet 10 mg PO DAILY 07/03/23 09/03/23 octreotide acetate 100 mcg/mL 100 mcg SUBCUT TID 07/03/23 09/03/23 injection solution Previous Rx's Medication Instructions Recorded [id number] 1 cap PO QID #120 caps 03/15/20 24,000-76,000-120,000 unit capsule,delayed rel (Creon) trazodone 50 mg tablet 50 mg PO BEDTIME PRN insomnia #30 03/03/22 tabs oxycodone 7.5 mg tablet,oral ONLY 7.5 mg PO Q4H PRN pain #30 ea 04/18/22 (not for feeding tubes) benzonatate 100 mg capsule 100 mg PO TID PRN cough #45 caps 07/03/23 methylphenidate HCl 20 mg tablet 20 mg PO TID #90 tabs 08/02/23 metoclopramide HCl 10 mg tablet 10 mg PO Q6H PRN nausea and 11/01/23 (Reglan) vomiting #20 tabs Allergies Allergy/AdvReac Type Severity Reaction Status Date / Time Iodine and Iodide Containing Allergy Severe Anaphylaxis Verified 09/29/23 18:07 Produc [IODINE AND IODIDE CONTAINING PRODUC] Sulfa (Sulfonamide Allergy Severe Anaphylaxis Verified 09/29/23 18:07 Antibiotics) [SULFA (SULFONAMIDE ANTIBIOTICS)] gabapentin AdvReac Intermediate Dizziness Verified 09/29/23 18:07 [id number] Reductase AdvReac Intermediate Verified 09/29/23 18:07 Inhibitor metformin AdvReac Mild Verified 09/29/23 18:07 Review of Systems Review of Systems ROS Unobtainable: All systems reviewed & are unremarkable except as noted in HPI and below Patient History Medical History Chronic low back pain Coronary artery disease Thyroid nodule Diabetes mellitus Atrial flutter with rapid ventricular response Sepsis Claudication in peripheral vascular disease History of cardioversion (03/07/21) Campylobacter enteritis Exocrine pancreatic insufficiency Acute dehydration Enteritis, enteropathogenic E. coli Paroxysmal atrial fibrillation Psoriasis Narcolepsy GERD (gastroesophageal reflux disease) Hyperlipidemia HTN (hypertension) Insulin dependent diabetes mellitus with complications Peripheral vascular disease Gastroenteritis Pancreatitis Atrial flutter with rapid ventricular response Surgical History History of epididymectomy Hx of biopsy History of femoropopliteal bypass H/O exploratory laparotomy Family History Father Colon cancer Mother Narcolepsy Grandmother Narcolepsy Social History household members: spouse Smoking Status: Former smoker alcohol intake: former Smoking Status: Former smoker alcohol intake frequency: holidays/special occasions only Substance Use Type: marijuana Exam Initial Vital Signs Initial Vital Signs: Vital Signs Temperature 98 F 11/01/23 13:40 Pulse Rate 107 H 11/01/23 13:40 Respiratory Rate 22 11/01/23 13:40 Blood Pressure 177/84 H 11/01/23 13:40 Pulse Oximetry 98 11/01/23 13:40 Oxygen Delivery Method Room Air 11/01/23 13:40 Const General: cooperative and No ill appearing HENMT Head: normal to inspection and normocephalic Resp Effort & Inspection: normal respiratory effort Auscultation: clear to auscultation bilaterally Cardio Rate: regular rate Rhythm: regular rhythm GI Inspection: normal to inspection and distended Palpation: soft, No firm, No guarding and tender Skin General: no rashes or lesions noted Neuro General: patient alert, patient awake and patient oriented x3 Course Orders Ordered: ED Orders 11/01/23 13:46 XR chest 1V Stat EKG-12 Lead Stat 11/01/23 14:17 Complete Blood Count AUTO DIFF Stat Comprehensive Metabolic Panel Stat Lipase Stat Magnesium Stat PTT Partial Thromboplastin Shravan Stat Prothrombin Time INR Stat Troponin & CK Cardiac Panel Stat Discontinued Medications Aspirin (Aspirin 81 Mg Chew Tab) 324 mg PO NOW ONE Stop: 11/01/23 13:47 Last Admin: 11/01/23 14:09 Dose: Not Given Documented By: JORGE A Hydromorphone HCl (Hydromorphone 1 Mg Inj) 1 mg IV NOW ONE Stop: 11/01/23 14:16 Last Admin: 11/01/23 14:26 Dose: 1 mg Documented By: JORGE A Hydromorphone HCl (Hydromorphone 1 Mg Inj) 1 mg IV NOW ONE Stop: 11/01/23 15:32 Last Admin: 11/01/23 15:38 Dose: 1 mg Documented By: JORGE A Acetaminophen (Ofirmev) 1,000 mg in 100 mls @ 400 mls/hr IV NOW ONE Stop: 11/01/23 14:45 Last Infusion: 11/01/23 14:54 Dose: Infused Documented By: JORGE A Admin: 11/01/23 14:40 Dose: 400 mls/hr Documented By: JORG EA Metoclopramide HCl (Metoclopramide 10 Mg/2 Ml Inj) 10 mg IV NOW ONE Stop: 11/01/23 15:32 Last Admin: 11/01/23 15:38 Dose: 10 mg Documented By: JORGE A Ondansetron HCl (Ondansetron 4 Mg/2 Ml Inj) 4 mg IV NOW ONE Stop: 11/01/23 14:16 Last Admin: 11/01/23 14:26 Dose: 4 mg Documented By: JORGE A Vital Signs Vital signs: Vital Signs - 8 hr 11/01/23 13:40 11/01/23 13:56 11/01/23 14:00 Temperature 98 F Pulse Rate 107 H 105 H Respiratory Rate 22 Blood Pressure 177/84 H 152/73 H Pulse Oximetry 98 97 Oxygen Delivery Method Room Air 11/01/23 14:00 11/01/23 14:30 11/01/23 14:30 Temperature Pulse Rate 100 H 96 H Respiratory Rate Blood Pressure 124/81 Pulse Oximetry 99 99 Oxygen Delivery Method 11/01/23 15:00 11/01/23 15:00 11/01/23 15:30 Temperature Pulse Rate 93 H Respiratory Rate 13 Blood Pressure 133/61 133/60 Pulse Oximetry 99 Oxygen Delivery Method Room Air 11/01/23 15:30 11/01/23 16:00 11/01/23 16:00 Temperature Pulse Rate 94 H 98 H Respiratory Rate 20 Blood Pressure 134/79 Pulse Oximetry 98 97 Oxygen Delivery Method 11/01/23 16:30 11/01/23 16:30 11/01/23 17:00 Temperature Pulse Rate 85 Respiratory Rate 13 Blood Pressure 131/59 L 147/67 H Pulse Oximetry 97 Oxygen Delivery Method 11/01/23 17:00 11/01/23 17:30 11/01/23 17:30 Temperature Pulse Rate 88 84 Respiratory Rate 18 19 Blood Pressure 132/60 Pulse Oximetry 98 97 Oxygen Delivery Method 11/01/23 18:00 11/01/23 18:00 Temperature Pulse Rate 82 Respiratory Rate 17 Blood Pressure 136/63 Pulse Oximetry 98 Oxygen Delivery Method MDM - Chest Pain Medical Records Data Attestation: I reviewed the patient's medical records. Lab Data Attestation: I reviewed the patient's lab results. 11/01/23 14:17 11/01/23 14:17 Labs: Lab Results 11/01/23 Range/Units 14:17 WBC 7.4 (4.5-11.0) X10^3/uL RBC 4.90 (4.5-5.9) X10^6/uL Hgb 13.0 L (13.5-17.5) g/dL Hct 39.5 L (41-53) % MCV 80.6 (80-100) fL MCH 26.6 (26-34) PG MCHC 33.0 (30-36) % RDW 16.9 H (11.6-14.8) % Plt Count 339 (150-400) X10^3/uL Neut % (Auto) 71.4 (50-75) % Lymph % (Auto) 16.6 L (25-40) % [place] % (Auto) 8.4 (3-14) % Eos % (Auto) 2.5 (2-4) % Baso % (Auto) 1.1 (0-2) % Neut # (Auto) 5300 (9616-5682) /uL Lymph # (Auto) 1200 (6346-8204) /uL [place] # (Auto) 600 (0-900) /uL Eos # (Auto) 200 (0-450) /uL Baso # (Auto) 100 (0-100) /uL PT 13.0 H (9.4-12.5) SECONDS INR 1.1 (0.9-1.3) APTT 35 (25.1-36.5) SECONDS Sodium 136 L (137-145) mmol/L Potassium 4.5 (3.4-5.1) mmol/L Chloride 108 H (98-107) mmol/L Carbon Dioxide 18 L (22-32) mmol/L BUN 16 (9-20) mg/dL Creatinine 0.67 (0.66-1.25) mg/dL Estimated GFR > 60 (>60) mL/min BUN/Creatinine Ratio 23.9 H (6-22) Glucose 285 H (80-110) mg/dL Calcium 9.1 (8.4-10.2) mg/dL Magnesium 1.7 (1.6-2.3) mg/dL Total Bilirubin 0.5 (0.2-1.3) mg/dL AST 24 (17-59) IU/L ALT 20 (<50) IU/L Alkaline Phosphatase 127 H (38-126) U/L Total Creatine Kinase 130 (55-170) U/L Troponin I < 0.012 (0.01-0.034) ng/mL Total Protein 6.9 (6.3-8.2) g/dL Albumin 4.4 (3.5-5.0) g/dL Globulin 2.5 (1.7-4.1) g/dL Albumin/Globulin Ratio 1.8 (1.0-2.8) Lipase 254 (23-300) U/L Imaging Data Chest x-ray: Radiologist's Impression: PROCEDURE: XR CHEST 1V INDICATIONS: chest pain TECHNIQUE: One view of the chest was acquired. COMPARISON: [facility], , XR CHEST 1V, 09/29/2023, 18:18. [facility], , XR CHEST 1V, 07/30/2023, 10:21. FINDINGS: Surgical changes and devices: None. Lungs and pleura: Low lung volumes. No dense airspace disease or pleural effusions. Mediastinum: Cardiomediastinal contours are unchanged Bones and chest wall: Degenerative findings IMPRESSION: Limited single view portable study with low lung volumes. No acute abnormality ECG Data Attestation: I personally reviewed and interpreted this ECG as follows: Interpretation: Sinus tachycardia Ventricular rate 101 Normal axis Normal QRS Normal QTC Nonspecific ST T wave changes MDM Narrative Medical decision making narrative: After the Reglan patient's symptoms seemed to improve tremendously. His lipase is unremarkable. No leukocytosis. I do feel that we can hold on an abdominal CT for now. He does have history of chronic pancreatitis and he states this feels very similar to that but he was a normal lipase. He states that he was now feeling much better and feels that he can maintain his symptoms with the medications that he has not home. I will give him a prescription for Reglan. We discussed its use. We discussed return precautions and follow-up instructions. He expressed understanding and agreement. Discharge Plan Departure Patient Disposition: Home Clinical Impression: Abdominal pain Instructions: DI for Abdominal Pain-Adult Activity Restrictions/Additional Instructions: Recommend a bland diet for the next couple days. Take your medications as directed. Return to the emergency department for new or worsening symptoms. Prescriptions: New metoclopramide HCl [Reglan] 10 mg tablet 10 mg PO Q6H PRN (Reason: nausea and vomiting) Qty: 20 0RF No Action clopidogrel [Plavix] 75 mg Tablet 75 mg PO QAM Qty: 0 methylphenidate HCl 20 mg tablet 20 mg PO TID Qty: 90 0RF insulin lispro [Humalog U-100 Insulin] 100 unit/mL solution See Rx Instructions SUBCUT USEASDIRECTD Rx Instructions: 2-4 sliding scale SUBCUT use as directed; Creon 24,000-76,000 -120,000 unit capsule,delayed release(DR/EC) 1 cap PO QID Qty: 120 12RF Rx Instructions: administer with meals and/or snacks prn sliding scale. 1 capsule for every 600 calories morphine [MS Contin] 15 mg tablet extended release 15 mg PO .HS rosuvastatin 10 mg tablet 40 mg PO DAILY amlodipine 5 mg tablet 10 mg PO DAILY duloxetine [Cymbalta] 60 mg capsule,delayed release(DR/EC) 60 mg PO QAM ezetimibe 10 mg tablet 10 mg PO DAILY octreotide acetate 100 mcg/mL solution 100 mcg SUBCUT TID benzonatate 100 mg capsule 100 mg PO TID PRN (Reason: cough) Qty: 45 0RF acetaminophen [Pain Relief (acetaminophen)] 325 MG tablet 500 mg PO Q4HP PRN (Reason: Pain, Mild) dabigatran etexilate [Pradaxa] 150 mg Capsule 150 mg PO BID ondansetron 8 mg tablet,disintegrating 8 mg PO PRN PRN (Reason: nausea/vomiting) trazodone 50 mg Tablet 50 mg PO BEDTIME PRN (Reason: insomnia) Qty: 30 0RF Rx Instructions: can take 1/2 tab (25mg) if 50 is too strong metoprolol succinate 25 mg Tablet Extended Release 24 Hr 37.5 mg PO BID ipratropium-albuterol inhaler 3 ml inhalation 4XD PRN (Reason: For shortness of breath) tadalafil 20 mg PO PRN PRN (Reason: 1hr before sexual activity) diphenhydramine HCl 12.5 mg/5 mL elixir 50 mg PO Q6H PRN (Reason: nausea and vomiting) insulin glargine 10 units SUBCUT QAM pantoprazole 40 mg Tablet,Delayed Release (Dr/Ec) 40 mg PO BID lisinopril 2.5 mg Tablet 2.5 mg PO QAM oxycodone 7.5 mg tablet, oral only 7.5 mg PO Q4H PRN (Reason: pain) Qty: 30 0RF Referrals: Eric Huang MD [Primary Care Provider] - Stand Alone Forms: Patient Portal/API
[2023-11-01] MEDS: ONDANSETRON 4 MG/2 ML INJ IV (14:26)
[2023-11-01] MEDS: HYDROMORPHONE 1 MG INJ IV ×2 (14:26→15:38)
[2023-11-01 14:27] LABS: Add Manual Diff / Slide Review NO; Basophils Absolute Auto 100 /uL (0-100); Basophils Percent Auto 1.1 % (0-2); Eosinophils Absolute Auto 200 /uL (0-450); Eosinophils Percent Auto 2.5 % (2-4); Hematocrit 39.5 % (41-53); Lymphocytes Absolute Auto 1200 /uL (1100-4500); Lymphocytes Percent Auto 16.6 % (25-40); Mean Corpuscular Hemoglobin 26.6 PG (26-34); Mean Corpuscular Volume 80.6 fL (80-100); Monocytes Absolute Auto 600 /uL (0-900); Monocytes Percent Auto 8.4 % (3-14); Neutrophils Absolute Auto 5300 /uL (1500-7000); Neutrophils Percent Auto 71.4 % (50-75); Platelet Count 339 X10^3/uL (150-400); Red Cell Distribution Width 16.9 % (11.6-14.8); White Blood Cell Count 7.4 X10^3/uL (4.5-11.0)
[2023-11-01 14:35] LABS: INR 1.1 (0.9-1.3)
[2023-11-01 14:38] LABS: PTT Partial Thromboplastin Tim 35 SECONDS (25.1-36.5)
[2023-11-01] MEDS: ACETAMINOPHEN IV 1,000 MG/100 ML VIAL 400 MG IV (14:40)
[2023-11-01 14:42] LABS: Alanine Aminotransferase 20 IU/L (<50); Albumin 4.4 g/dL (3.5-5.0); Albumin Globulin Ratio 1.8 (1.0-2.8); Alkaline Phosphatase 127 U/L (38-126); Aspartate Aminotransferase 24 IU/L (17-59); BUN Creatinine Ratio 23.9 (6-22); Bilirubin Total 0.5 mg/dL (0.2-1.3); Blood Urea Nitrogen 16 mg/dL (9-20); Calcium 9.1 mg/dL (8.4-10.2); Carbon Dioxide 18 mmol/L (22-32); Chloride 108 mmol/L (98-107); Creatine Kinase 130 U/L (55-170); Estimated Glomerular Filt Rate > 60 mL/min (>60); Globulin 2.5 g/dL (1.7-4.1); Glucose 285 mg/dL (80-110); HEMOLYSIS 34 (0-50); Lipase 254 U/L (23-300); Magnesium 1.7 mg/dL (1.6-2.3); Potassium 4.5 mmol/L (3.4-5.1); Sodium 136 mmol/L (137-145); Total Protein 6.9 g/dL (6.3-8.2)
[2023-11-01 14:53] LABS: Troponin I < 0.012 ng/mL (0.01-0.034)
[2023-11-01] MEDS: METOCLOPRAMIDE 10 MG/2 ML INJ IV (15:38)
== END 2023-11-01 18:27 | disposition home or self-care (01) ==
PROVIDERS: Emergency Provider Emergency Medicine; Family Provider Nurse Practitioner Family; PCP Family Medicine
DX: R10.13 Epigastric pain (principal); R00.0 Tachycardia, unspecified; R19.7 Diarrhea, unspecified; R11.0 Nausea; Z79.899 Other long term (current) drug therapy; Z79.01 Long term (current) use of anticoagulants
CPT/HCPCS: 36415; 71045; 80053; 82550; 83690; 83735; 84484; 85025; 85610; 85730; 93005; 93010; 96374; 96375; 96376; 99284; J0136; J1170; J2405; J2765

== ENCOUNTER 2023-11-21 09:45 | Inpatient (IN) | payer OTHER, SELFPAY ==
[2023-06-01 03:57] VITALS: BMI 26.5
[2023-11-21] VITALS (34 sets, daily range): BP systolic 110–153; BP diastolic 56–74; PULSE 73–109; RESP 14–35; TEMP 35.9–36.9; O2SAT 93–99; BMI 28.1; BMI 27.8
--- NOTE | 2023-11-21 09:51 | ED.GENADULT ---
HPI - General Adult General Chief complaint: Abdominal Pain Stated complaint: Pancreas flare up Time Seen by Provider: 11/21/23 09:46 History of Present Illness HPI narrative: 60-year-old gentleman with a history of coronary artery disease post stenting, chronic pancreatitis, hypertension, hyperlipidemia, diabetes, peripheral vascular disease on Plavix, atrial fibrillation post ablation on dabigatran he notes that he does have an IV contrast allergy however in the past he is done well with Solu-Medrol and Benadryl pre imaging and prefers Reglan for nausea control. Approximately 24 hours to be in having increasing abdominal pain, went home from work early yesterday. At 7:00 a.m. this morning the pain became increasingly worse. He had some belching that he describes as feculent. He is having some diarrhea. Describes his abdominal pain as an 8/10 and feel somewhat bloated. He also describes chest pain. He did take 2 nitroglycerin at home with minimal relief of pain. He does not regularly take aspirin. He presents via triage pale, diaphoretic and in distress but able to give a complete and coherent history. No recent fevers, cough, chills. He has been vomiting since 7:00 a.m.. This morning the patient has already taken 40 mg of oxycodone, 30 mg of MS Contin, 24 mg of Zofran, 25 mg of promethazine, 10 mg of Reglan and 2 sublingual nitroglycerin Related Data Home Medications Medication Instructions Recorded Confirmed clopidogrel 75 mg tablet (Plavix) 75 mg PO QAM ##0 04/15/08 09/03/23 acetaminophen 325 mg tablet (Pain 500 mg PO Q4HP PRN Pain, Mild 09/25/17 09/03/23 Relief (acetaminophen)) dabigatran etexilate 150 mg 150 mg PO BID 03/24/18 09/03/23 capsule (Pradaxa) lisinopril 2.5 mg tablet 2.5 mg PO QAM blood pressure 04/28/19 09/03/23 insulin lispro 100 unit/mL See Rx Instructions SUBCUT 03/15/20 09/03/23 subcutaneous solution (Humalog USEASDIRECTD U-100 Insulin) duloxetine 60 mg capsule,delayed 60 mg PO QAM 11/01/21 09/03/23 release (Cymbalta) ondansetron 8 mg disintegrating 8 mg PO PRN PRN nausea/vomiting 02/25/22 09/03/23 tablet morphine 15 mg tablet,extended 15 mg PO .HS 06/06/22 09/03/23 release (MS Contin) amlodipine 5 mg tablet 10 mg PO DAILY 01/19/23 09/03/23 rosuvastatin 10 mg tablet 40 mg PO DAILY 01/19/23 09/03/23 diphenhydramine HCl 12.5 mg/5 mL 50 mg PO Q6H PRN nausea and 06/01/23 09/03/23 oral elixir vomiting insulin glargine 10 units SUBCUT QAM 06/01/23 09/03/23 ipratropium-albuterol 3 ml inhalation 4XD PRN For 06/01/23 09/03/23 shortness of breath metoprolol succinate 25 mg 37.5 mg PO BID 06/01/23 09/03/23 tablet,extended release 24 hr tadalafil 20 mg PO PRN PRN 1hr before sexual 06/01/23 09/03/23 activity pantoprazole 40 mg tablet,delayed 40 mg PO BID 06/06/23 09/03/23 release ezetimibe 10 mg tablet 10 mg PO DAILY 07/03/23 09/03/23 octreotide acetate 100 mcg/mL 100 mcg SUBCUT TID 07/03/23 09/03/23 injection solution Previous Rx's Medication Instructions Recorded [id number] 1 cap PO QID #120 caps 03/15/20 24,000-76,000-120,000 unit capsule,delayed rel (Creon) trazodone 50 mg tablet 50 mg PO BEDTIME PRN insomnia #30 03/03/22 tabs oxycodone 7.5 mg tablet,oral ONLY 7.5 mg PO Q4H PRN pain #30 ea 04/18/22 (not for feeding tubes) benzonatate 100 mg capsule 100 mg PO TID PRN cough #45 caps 07/03/23 methylphenidate HCl 20 mg tablet 20 mg PO TID #90 tabs 08/02/23 metoclopramide HCl 10 mg tablet 10 mg PO Q6H PRN nausea and 11/01/23 (Reglan) vomiting #20 tabs Allergies Allergy/AdvReac Type Severity Reaction Status Date / Time Iodine and Iodide Containing Allergy Severe Anaphylaxis Verified 09/29/23 18:07 Produc [IODINE AND IODIDE CONTAINING PRODUC] Sulfa (Sulfonamide Allergy Severe Anaphylaxis Verified 09/29/23 18:07 Antibiotics) [SULFA (SULFONAMIDE ANTIBIOTICS)] gabapentin AdvReac Intermediate Dizziness Verified 09/29/23 18:07 [id number] Reductase AdvReac Intermediate Verified 09/29/23 18:07 Inhibitor metformin AdvReac Mild Verified 09/29/23 18:07 Review of Systems Review of Systems Narrative: Pertinent positive and negative findings as per HPI Patient History Medical History Chronic low back pain Coronary artery disease Thyroid nodule Diabetes mellitus Atrial flutter with rapid ventricular response Sepsis Claudication in peripheral vascular disease History of cardioversion (03/07/21) Campylobacter enteritis Exocrine pancreatic insufficiency Acute dehydration Enteritis, enteropathogenic E. coli Paroxysmal atrial fibrillation Psoriasis Narcolepsy GERD (gastroesophageal reflux disease) Hyperlipidemia HTN (hypertension) Insulin dependent diabetes mellitus with complications Peripheral vascular disease Gastroenteritis Pancreatitis Atrial flutter with rapid ventricular response Surgical History History of epididymectomy Hx of biopsy History of femoropopliteal bypass H/O exploratory laparotomy Family History Father Colon cancer Mother Narcolepsy Grandmother Narcolepsy Social History household members: spouse Smoking Status: Former smoker alcohol intake: former Smoking Status: Former smoker alcohol intake frequency: holidays/special occasions only Substance Use Type: marijuana Exam Initial Vital Signs Initial Vital Signs: Vital Signs Pulse Rate 95 H 11/21/23 09:50 Pulse Oximetry 95 11/21/23 09:50 General: Pale, diaphoretic appears acutely unwell HEENT: Dry mucous membranes, normal sclera with reactive pupils, Neck: No JVD, supple Respiratory: Lungs are clear to auscultation, no wheezing no rales no rhonchi. Full and symmetrical air movement Cardiac: Regular rate and rhythm no murmurs no bruits Abdomen: Slightly distended. He has a large abdominal wall hernia that is not tender. He has not showing any rebound or guarding. He does have some left upper flank/lower back pain that is not reproducible on palpation Skin: Pale, nascimento, diaphoretic Neurologic: Grossly neurologically intact with no obvious asymmetries or abnormalities Extremities: No trauma, good capillary refill, no edema Psych: Cooperative, appropriate insight and affect, fluent thought, able to cooperate completely with the Course Orders Ordered: ED Orders 11/21/23 09:48 EKG-12 Lead Stat 11/21/23 10:16 BNP [NT-proBNP (BNP-Adult 18+)] Stat Complete Blood Count AUTO DIFF Stat Comprehensive Metabolic Panel Stat Lipase Stat Prothrombin Time INR Stat Troponin & CK Cardiac Panel Stat 11/21/23 10:48 CT abdomen pelvis w con Stat 11/21/23 12:23 Trop I [Troponin I] Stat 11/21/23 13:13 GI Panel (Film Array) Stat Dextrose (D10w) 100 mls @ 1,200 mls/hr IV PRN PRN PRN Reason: Hypoglycemia Last Infusion: 11/21/23 13:19 Dose: Infused Documented By: Admin: 11/21/23 13:06 Dose: 1,200 mls/hr Documented By: Infusion: 11/21/23 12:18 Dose: Infused Documented By: Admin: 11/21/23 12:09 Dose: 1,200 mls/hr Documented By: Infusion: 11/21/23 11:23 Dose: Infused Documented By: Admin: 11/21/23 11:07 Dose: 1,200 mls/hr Documented By: ADRIAN Dextrose (D10w) 1,000 mls @ 100 mls/hr IV CONT KATHY Last Admin: 11/21/23 12:57 Dose: 100 mls/hr Documented By: ADRIAN Morphine Sulfate (Morphine 2 Mg/Ml Inj) 2 mg IV Q15MIN PRN PRN Reason: pain Stop: 11/25/23 10:16 Last Admin: 11/21/23 13:32 Dose: 2 mg Documented By: Admin: 11/21/23 11:58 Dose: 2 mg Documented By: Admin: 11/21/23 11:29 Dose: 2 mg Documented By: Admin: 11/21/23 10:40 Dose: 2 mg Documented By: POLLY Ondansetron HCl (Ondansetron 4 Mg/2 Ml Inj) 4 mg IV NOW PRN PRN Reason: Nausea And Vomiting Ondansetron HCl (Ondansetron 4 Mg Odt) 4 mg PO NOW PRN PRN Reason: Nausea And Vomiting Discontinued Medications Albuterol/Ipratropium (Albuterol/Ipratropium 3 Ml Ampul) 3 ml INH NOW ONE Stop: 11/21/23 14:07 Aspirin (Aspirin 81 Mg Chew Tab) 324 mg PO NOW ONE Stop: 11/21/23 10:09 Last Admin: 11/21/23 10:37 Dose: 324 mg Documented By: POLLY Diphenhydramine HCl (Diphenhydramine 50 Mg/Ml Vial) 50 mg IV NOW ONE Stop: 11/21/23 10:53 Last Admin: 11/21/23 11:04 Dose: 50 mg Documented By: ADRIAN Sodium Chloride (Normal Saline 0.9%) 1,000 mls @ 1,000 mls/hr IV BOLUS ONE Stop: 11/21/23 11:07 Last Infusion: 11/21/23 11:34 Dose: Infused Documented By: Admin: 11/21/23 10:29 Dose: 1,000 mls/hr Documented By: WILFRID Lidocaine HCl (Lidocaine 1% (Pf) 2ml) 1 ml INJ NOW ONE Stop: 11/21/23 13:23 Last Admin: 11/21/23 13:29 Dose: Not Given Documented By: SONYA Methylprednisolone (Methylprednisolone 125 Mg/2 Ml Vial) 125 mg IV NOW ONE Stop: 11/21/23 10:53 Last Admin: 11/21/23 11:04 Dose: 125 mg Documented By: ADRIAN Ondansetron HCl (Ondansetron 4 Mg/2 Ml Inj) 4 mg IV NOW ONE Stop: 11/21/23 10:09 Last Admin: 11/21/23 10:23 Dose: Not Given Documented By: POLLY Vital Signs Vital signs: Vital Signs - 8 hr 11/21/23 09:50 11/21/23 09:51 11/21/23 09:51 Temperature Pulse Rate 95 H 94 H Respiratory Rate Blood Pressure 150/72 H Pulse Oximetry 95 99 Oxygen Delivery Method Oxygen Flow Rate 11/21/23 10:00 11/21/23 10:00 11/21/23 10:01 Temperature 97.8 F Pulse Rate 88 93 H Respiratory Rate 25 H 14 Blood Pressure 140/60 150/72 H Pulse Oximetry 99 99 Oxygen Delivery Method Room Air Oxygen Flow Rate 11/21/23 10:15 11/21/23 10:30 11/21/23 10:31 Temperature Pulse Rate 90 91 H Respiratory Rate 27 H 21 Blood Pressure 148/67 H Pulse Oximetry 98 95 Oxygen Delivery Method Oxygen Flow Rate 11/21/23 10:31 11/21/23 10:44 11/21/23 10:44 Temperature Pulse Rate 88 91 H Respiratory Rate 17 22 Blood Pressure 148/68 H Pulse Oximetry 95 98 Oxygen Delivery Method Oxygen Flow Rate 11/21/23 10:45 11/21/23 10:45 11/21/23 11:00 Temperature Pulse Rate 91 H 92 H Respiratory Rate 20 16 Blood Pressure 145/62 H Pulse Oximetry 98 98 Oxygen Delivery Method Oxygen Flow Rate 11/21/23 11:00 11/21/23 11:15 11/21/23 11:15 Temperature Pulse Rate 92 H Respiratory Rate 23 Blood Pressure 152/72 H 143/56 H Pulse Oximetry 99 Oxygen Delivery Method Oxygen Flow Rate 11/21/23 11:30 11/21/23 11:33 11/21/23 11:33 Temperature Pulse Rate 91 H 90 Respiratory Rate 28 H 23 Blood Pressure 138/63 Pulse Oximetry 98 95 Oxygen Delivery Method Oxygen Flow Rate 11/21/23 11:45 11/21/23 11:45 11/21/23 11:55 Temperature Pulse Rate 93 H Respiratory Rate 34 H Blood Pressure 135/68 153/74 H Pulse Oximetry 97 Oxygen Delivery Method Oxygen Flow Rate 11/21/23 11:55 11/21/23 12:00 11/21/23 12:00 Temperature Pulse Rate 103 H 99 H Respiratory Rate 32 H 35 H Blood Pressure 150/65 H Pulse Oximetry 97 96 Oxygen Delivery Method Nasal Cannula Oxygen Flow Rate 11/21/23 12:15 11/21/23 12:15 11/21/23 12:39 Temperature Pulse Rate 96 H 73 Respiratory Rate 31 H Blood Pressure 130/59 L Pulse Oximetry 95 99 Oxygen Delivery Method Oxygen Flow Rate 11/21/23 12:45 11/21/23 12:46 11/21/23 12:46 Temperature Pulse Rate 97 H 97 H Respiratory Rate 28 H 28 H Blood Pressure 143/67 H Pulse Oximetry 93 93 Oxygen Delivery Method Nasal Cannula Oxygen Flow Rate 2 11/21/23 13:00 11/21/23 13:04 11/21/23 13:04 Temperature Pulse Rate 102 H 99 H Respiratory Rate 33 H 30 H Blood Pressure 151/70 H Pulse Oximetry 94 95 Oxygen Delivery Method Oxygen Flow Rate 11/21/23 13:15 11/21/23 14:15 Temperature Pulse Rate 101 H 88 Respiratory Rate 33 H 16 Blood Pressure Pulse Oximetry 95 98 Oxygen Delivery Method Nasal Cannula Nasal Cannula Oxygen Flow Rate 2 Medical Decision Making Lab Data 11/21/23 10:16 11/21/23 10:16 Labs: Lab Results 11/21/23 11/21/23 Range/Units 10:16 12:23 WBC 4.0 L (4.5-11.0) X10^3/uL RBC 5.55 (4.5-5.9) X10^6/uL Hgb 14.8 (13.5-17.5) g/dL Hct 45.0 (41-53) % MCV 81.1 (80-100) fL MCH 26.7 (26-34) PG MCHC 32.9 (30-36) % RDW 16.5 H (11.6-14.8) % Plt Count 322 (150-400) X10^3/uL Neut % (Auto) 70.2 (50-75) % Lymph % (Auto) 26.6 (25-40) % Bailey % (Auto) 2.1 L (3-14) % Eos % (Auto) 0.6 L (2-4) % Baso % (Auto) 0.5 (0-2) % Neut # (Auto) 2800 (9473-9781) /uL Lymph # (Auto) 1100 (1170-2397) /uL Bailey # (Auto) 100 (0-900) /uL Eos # (Auto) 0 (0-450) /uL Baso # (Auto) 0 (0-100) /uL PT 12.2 (9.4-12.5) SECONDS INR 1.1 (0.9-1.3) Sodium 141 (137-145) mmol/L Potassium 4.2 (3.4-5.1) mmol/L Chloride 104 (98-107) mmol/L Carbon Dioxide 20 L (22-32) mmol/L BUN 19 (9-20) mg/dL Creatinine 0.87 (0.66-1.25) mg/dL Estimated GFR > 60 (>60) mL/min BUN/Creatinine Ratio 21.8 (6-22) Glucose 79 L (80-110) mg/dL Calcium 9.6 (8.4-10.2) mg/dL Total Bilirubin 0.6 (0.2-1.3) mg/dL AST 29 (17-59) IU/L ALT 19 (<50) IU/L Alkaline Phosphatase 93 (38-126) U/L Total Creatine Kinase 160 (55-170) U/L Troponin I < 0.012 < 0.012 (0.01-0.034) ng/mL NT-Pro-B Natriuret Pep 122 (<125) pg/mL Total Protein 8.0 (6.3-8.2) g/dL Albumin 5.1 H (3.5-5.0) g/dL Globulin 2.9 (1.7-4.1) g/dL Albumin/Globulin Ratio 1.8 (1.0-2.8) Lipase 206 (23-300) U/L Point of Care Testing Glucose POC 56 Urine Dip Bedside Urine Glucose Negative Bedside Urine Bilirubin - Negative Bedside Urine Ketone - Negative Urine Specific [place] 1.015 Bedside Urine Occult Blood - Negative Bedside Urine pH 5.0 Bedside Urine Protein - Negative Bedside Urine Urobilinogen - Negative Bedside Urine Nitrite - Negative Bedside Urine Leukocytes - Negative Esterase Point of care testing: Point of Care Testing Glucose POC 56 Urine Dip Bedside Urine Glucose Negative Bedside Urine Bilirubin - Negative Bedside Urine Ketone - Negative Urine Specific [place] 1.015 Bedside Urine Occult Blood - Negative Bedside Urine pH 5.0 Bedside Urine Protein - Negative Bedside Urine Urobilinogen - Negative Bedside Urine Nitrite - Negative Bedside Urine Leukocytes - Negative Esterase Imaging Data CT scan - abdomen/pelvis: Radiologist's Impression: PROCEDURE: CT ABDOMEN PELVIS W CON INDICATIONS: abdominal pain, severe, profuse diaphoresis TECHNIQUE: After the administration of intravenous contrast, axial sections acquired from the lung bases to the pubic symphysis. Coronal and sagittal reformats were performed. For radiation dose reduction, the following was used: automated exposure control, adjustment of mA and/or kV according to patient size. COMPARISON: [facility], CR, XR CHEST 1V, 11/01/2023, 14:28. [facility], CT, CT ABDOMEN PELVIS W CON, 09/29/2023, 20:14. FINDINGS: Image quality: Diagnostic. Lower Chest: Severe coronary artery calcifications. Lung bases are clear. ABDOMEN: Liver: No solid mass. Gallbladder: Surgically absent Biliary ducts: No biliary dilation. Pancreas: No ductal dilation. Spleen: Size is within normal limits. Adrenal Glands: No adrenal nodules. Kidneys and Ureters: No hydronephrosis. No solid mass. No complex renal cystic lesion which requires follow up. Stomach and Bowel: There is a left paramidline supraumbilical hernia containing a normal caliber somewhat inflamed loop of small bowel with inflammatory change in the adjacent fat. This appears to be the cause of a small bowel obstruction. Loops of bowel are dilated up to 4.0 cm. The defect measures 3.7 cm in craniocaudal dimension and 2.9 cm in transverse dimension. Images 62-67 demonstrate the loop of small bowel within the hernia. Normal appendix. Diverticulosis without evidence of acute diverticulitis. Peritoneum: No abnormal intraperitoneal fluid. No free air. Ventral Wall: No significant ventral hernia. Abdominal Nodes: No retroperitoneal or mesenteric adenopathy by size criteria. Vessels: Aorta and inferior vena cava are normal in size. PELVIS: Pelvic Organs: Unremarkable. Bladder: No bladder wall thickening, accounting for underdistention. Pelvic Nodes: No enlarged lymph nodes. Miscellaneous: No inguinal hernias are seen. Bones: No aggressive osseous abnormality. IMPRESSION: 1. Likely incarcerated loop of small bowel within a left paramidline supraumbilical hernia is likely the cause of a small-bowel obstruction. 2. Remote cholecystectomy. 3. Diverticulosis without evidence of acute diverticulitis. Dictated by: Timo Cooper M.D. on 11/21/2023 at 13:40 MDM Narrative Medical decision making narrative: CC: Abdominal and chest pain with vomiting and diaphoresis Complicating co-morbidities: Significant cardiac history, chronic pancreatitis, diabetes, hypertension, hyperlipidemia Data collected from: patient Medical records reviewed: ER visit 10/31 for similar findings reviewed, Reglan improved symptoms and patient was discharged home. Recent hospitalization in May of this year for cardiac/abdominal pain eventually showed pancreatitis with no acute coronary findings and appropriate goal-directed treatment CT abd on 09/29/23 showed: Circumferential wall thickening and inflammatory changes of the distal descending colon, sigmoid colon, and distal/terminal ileum which may represent gastroenteritis. Concurrent colonic diverticulosis. No evidence for bowel obstruction, perforation, or abscess formation. Of note, mild tethering appearance of the mesentery of the right lower quadrant in region of inflammation. Recommend short interval follow-up CT after resolution of acute findings. (mention was made of normal aorta, no evidence of aneurysm) Differential considered: Acute coronary syndrome, STEMI, pancreatitis, bowel obstruction, gastroenteritis Exam documented above, pertinent findings include: Patient is pale, nascimento, diaphoretic appears significantly uncomfortable, abdomen is distended without rebound or guarding Lab Test results independently reviewed as above. Pertinent findings: CBC is notable for white count of 4.0, no anemia, normal platelets Chemistries show sugar at 79 (patient has already been given D10 IV) normal liver studies Initial troponin is undetectable Lipase is at 2:06 a.m. Independently reviewed EKG: EKG today shows sinus rhythm at a rate of 89. Minor STT wave changes that are similar to October 31 of this year and EKG appears to be improved from admit EKG done June 16 Imaging studies independently reviewed: CT scan of the abdomen shows Likely incarcerated loop of small bowel within a left paramidline supraumbilical hernia is likely the cause of a small-bowel obstruction. Consultations: Care is reviewed with Dr. Velasco who will consult on the patient. At this point patient has not NG tube into help with vomiting and is also having diarrhea which has been sent for PCR testing. We will see if helping empty his bowels from both ends helps decompress this bowel obstruction. Treatments: With the plethora of antiemetics and narcotics taken prior to arrival, we have not given him much more. He was given 100 cc of D10 for dropping blood sugar. Continues to have significant pain and nausea with profuse diaphoresis. Will move to CT scan of the abdomen with Solu-Medrol and Benadryl IV 1 hour prior Re-evaluations: Findings reviewed with the patient. He is feeling better with the NG tube in place with almost 600 cc out and after a large bowel movement preceded by quite a bit of watery stool. Discussion: 68-year-old gentleman with severe abdominal pain, intractable vomiting now with diarrhea and a large bowel movement. He does have an abdominal wall hernia that is not tender to palpation. CT scan suggests that he has not incarcerated loop of small bowel within the hernia. Care is reviewed with Dr. Velasco general surgeon. He agrees with current NG plan and will consult on the patient. With his history of diabetes recurrent episodes of hypoglycemia currently on D10, coronary disease and anticoagulation will admit him to the hospitalist service for small-bowel obstruction Critical Care Time Critical Care Time Critical Care Time: Yes Total Critical Care Time: 33 Attestation: Critical care time is separate from other billable procedures. There is a high probability of a significant, sudden or life-threatening deterioration that requires my full and direct attention, intervention and personal management. This critical care time includes consultation with family and other consulting doctors, review of records, and interpretation of data from labs, EKGs and imaging as well as managements of hypoglycemia with continued IV glucose, intractable vomiting with the abdominal pain Discharge Plan Departure Patient Disposition: Admitted as Observation Clinical Impression: Hypoglycemia, Complete small bowel obstruction
--- NOTE | 2023-11-21 09:59 | EKG_ITS ---
[place] [address] [address] [place] [id number] Test Date: 2023-11-21 Pat Name: Jann Diehl Department: [facility] Room: Gender: Male Manager Business Information: YULIANA : 1955 Requested By: Order Number: [id number] Reading MD: Brock Moreno Measurements Intervals [place] Rate: 89 P: 79 VT: 140 QRS: 24 QRSD: 110 T: -23 QT: 382 QTc: 464 Interpretive Statements Normal sinus rhythm T wave abnormality, consider inferior ischemia Similar to previous Electronically Signed On 11-21-2023 14:36:43 PDT by Brock Moreno
[2023-11-21] MEDS: SODIUM CHLORIDE 0.9% 1,000 ML 1000 ML IV (10:29)
[2023-11-21 10:30] LABS: Add Manual Diff / Slide Review NO; Basophils Absolute Auto 0 /uL (0-100); Basophils Percent Auto 0.5 % (0-2); Eosinophils Absolute Auto 0 /uL (0-450); Eosinophils Percent Auto 0.6 % (2-4); Hemoglobin 14.8 g/dL (13.5-17.5); Lymphocytes Absolute Auto 1100 /uL (1100-4500); Lymphocytes Percent Auto 26.6 % (25-40); Mean Corpuscular HGB Conc 32.9 % (30-36); Mean Corpuscular Hemoglobin 26.7 PG (26-34); Mean Corpuscular Volume 81.1 fL (80-100); Monocytes Absolute Auto 100 /uL (0-900); Monocytes Percent Auto 2.1 % (3-14); Neutrophils Absolute Auto 2800 /uL (1500-7000); Neutrophils Percent Auto 70.2 % (50-75); Platelet Count 322 X10^3/uL (150-400); Red Blood Cell Count 5.55 X10^6/uL (4.5-5.9); Red Cell Distribution Width 16.5 % (11.6-14.8)
[2023-11-21 10:34] LABS: INR 1.1 (0.9-1.3); Prothrombin Time 12.2 SECONDS (9.4-12.5)
[2023-11-21] MEDS: ASPIRIN 81 MG CHEW TAB 324 MG PO (10:37)
[2023-11-21 10:38] LABS: Creatine Kinase 160 U/L (55-170)
[2023-11-21] MEDS: MORPHINE 2 MG/ML INJ IV ×5 (10:40→14:45)
[2023-11-21 10:48] LABS: Alanine Aminotransferase 19 IU/L (<50); Albumin 5.1 g/dL (3.5-5.0); Albumin Globulin Ratio 1.8 (1.0-2.8); Alkaline Phosphatase 93 U/L (38-126); Aspartate Aminotransferase 29 IU/L (17-59); BUN Creatinine Ratio 21.8 (6-22); Bilirubin Total 0.6 mg/dL (0.2-1.3); Blood Urea Nitrogen 19 mg/dL (9-20); Calcium 9.6 mg/dL (8.4-10.2); Carbon Dioxide 20 mmol/L (22-32); Chloride 104 mmol/L (98-107); Estimated Glomerular Filt Rate > 60 mL/min (>60); Globulin 2.9 g/dL (1.7-4.1); Glucose 79 mg/dL (80-110); Lipase 206 U/L (23-300); Potassium 4.2 mmol/L (3.4-5.1); Sodium 141 mmol/L (137-145)
--- NOTE | 2023-11-21 10:48 | DI.CT.S_ITS ---
PROCEDURE: CT ABDOMEN PELVIS W CON INDICATIONS: abdominal pain, severe, profuse diaphoresis TECHNIQUE: After the administration of intravenous contrast, axial sections acquired from the lung bases to the pubic symphysis. Coronal and sagittal reformats were performed. For radiation dose reduction, the following was used: automated exposure control, adjustment of mA and/or kV according to patient size. COMPARISON: [facility], CR, XR CHEST 1V, 11/01/2023, 14:28. [facility], CT, CT ABDOMEN PELVIS W CON, 09/29/2023, 20:14. FINDINGS: Image quality: Diagnostic. Lower Chest: Severe coronary artery calcifications. Lung bases are clear. ABDOMEN: Liver: No solid mass. Gallbladder: Surgically absent Biliary ducts: No biliary dilation. Pancreas: No ductal dilation. Spleen: Size is within normal limits. Adrenal Glands: No adrenal nodules. Kidneys and Ureters: No hydronephrosis. No solid mass. No complex renal cystic lesion which requires follow up. Stomach and Bowel: There is a left paramidline supraumbilical hernia containing a normal caliber somewhat inflamed loop of small bowel with inflammatory change in the adjacent fat. This appears to be the cause of a small bowel obstruction. Loops of bowel are dilated up to 4.0 cm. The defect measures 3.7 cm in craniocaudal dimension and 2.9 cm in transverse dimension. Images 62-67 demonstrate the loop of small bowel within the hernia. Normal appendix. Diverticulosis without evidence of acute diverticulitis. Peritoneum: No abnormal intraperitoneal fluid. No free air. Ventral Wall: No significant ventral hernia. Abdominal Nodes: No retroperitoneal or mesenteric adenopathy by size criteria. Vessels: Aorta and inferior vena cava are normal in size. PELVIS: Pelvic Organs: Unremarkable. Bladder: No bladder wall thickening, accounting for underdistention. Pelvic Nodes: No enlarged lymph nodes. Miscellaneous: No inguinal hernias are seen. Bones: No aggressive osseous abnormality. IMPRESSION: 1. Likely incarcerated loop of small bowel within a left paramidline supraumbilical hernia is likely the cause of a small-bowel obstruction. 2. Remote cholecystectomy. 3. Diverticulosis without evidence of acute diverticulitis. Dictated by: Timo Cooper M.D. on 11/21/2023 at 13:40 Approved by: Timo Cooper M.D. on 11/21/2023 at 13:49
[2023-11-21 10:49] LABS: HEMOLYSIS 77 (0-50)
[2023-11-21 10:51] LABS: NT-proBNP (BNP-Adult 18+) 122 pg/mL (<125); Troponin I < 0.012 ng/mL (0.01-0.034)
[2023-11-21] MEDS: methylPREDNISolone 125 MG/2 ML VIAL IV (11:04)
[2023-11-21] MEDS: diphenhydrAMINE 50 MG/ML VIAL IV (11:04)
[2023-11-21] MEDS: DEXTROSE 10 % IN WATER 100 ML 1200 ML IV ×3 (11:07→13:06)
--- NOTE | 2023-11-21 11:31 | PC.NURSE ---
patient pale, cool and diaphoretic, and nauseated. BS obtained: 40s. provider aware: ordered Dextrose 10% 100cc. BS: 117 post infusion. patient less sweaty and also medicated for pain. patient states is pain is getting better.
[2023-11-21 12:54] LABS: Troponin I < 0.012 ng/mL (0.01-0.034)
[2023-11-21] MEDS: DEXTROSE 10 % IN WATER 1,000 ML 100 ML IV (12:57)
--- NOTE | 2023-11-21 13:44 | PC.NURSE ---
patient had approx 600cc loose stool. stool sample taken and sent
[2023-11-21] MEDS: ALBUTEROL/IPRATROPIUM 3 ML AMPUL INH (14:15)
--- NOTE | 2023-11-21 14:59 | P.HP_ITS ---
History of Present Illness History of Present Illness Date Patient Seen: 11/21/23 Time Patient Seen: 15:59 Chief complaint: Pancreas flare up Narrative: The patient was a 60-year-old male with a history of CAD and stenting, chronic recurrent pancreatitis, hypertension, hyperlipidemia, diabetes, empiric ABX he was mellitus offer fibrillation. He was on Plavix as well as dabigatran. Patient presents with acute abdominal pain. This began yesterday. The patient was epigastric and reminiscent of is pancreatitis. The patient had more severe pain today and took multiple doses of his home medications including antiemetics and pain medications. He also tried nitroglycerin. Ultimately, the pain continued to escalate and he presented to the ED. he was diaphoretic, appeared to be moderately ill, and received IV pain medications. At home he took 40 mg of oxycodone, g of MS Contin, 24 mg of Zofran, 25 mg of promethazine, 10 mg Reglan, on the 2 sublingual nitroglycerins. In the emergency department, imaging indicated a possible incarcerated periumbilical hernia. He was known to Dr. Velasco, who is on-call today, and was notified of his presentation and CT findings. General surgery is consulted he will see him later today. The patient denies history of incarcerated hernia and feels that this is more consistent with his pancreatitis. He vomited many times and always gastric 2+ in the emergency department with a fairly high volume of material or recovered. He also developed bowel movements today for very loose stools. He had been constipated for several days. The pain is midepigastric some radiation to the back but does not radiate to the shoulder. The mostly. The nausea is also constant. [facility] Medical History Chronic low back pain Coronary artery disease Thyroid nodule Diabetes mellitus Atrial flutter with rapid ventricular response Sepsis Claudication in peripheral vascular disease History of cardioversion (03/07/21) Campylobacter enteritis Exocrine pancreatic insufficiency Acute dehydration Enteritis, enteropathogenic E. coli Paroxysmal atrial fibrillation Psoriasis Narcolepsy GERD (gastroesophageal reflux disease) Hyperlipidemia HTN (hypertension) Insulin dependent diabetes mellitus with complications Peripheral vascular disease Gastroenteritis Pancreatitis Atrial flutter with rapid ventricular response Surgical History History of epididymectomy Hx of biopsy History of femoropopliteal bypass H/O exploratory laparotomy Family History Father Colon cancer Mother Narcolepsy Grandmother Narcolepsy Social History household members: spouse Smoking Status: Former smoker alcohol intake: former Meds Home Medications and Allergies Home Medications Medication Instructions Recorded Confirmed Type clopidogrel 75 mg tablet (Plavix) 75 mg PO QAM ##0 04/15/08 11/21/23 History acetaminophen 325 mg tablet (Pain 500 mg PO Q4HP PRN Pain, Mild 09/25/17 11/21/23 History Relief (acetaminophen)) dabigatran etexilate 150 mg 150 mg PO BID 03/24/18 09/03/23 History capsule (Pradaxa) lisinopril 2.5 mg tablet 2.5 mg PO QAM blood pressure 04/28/19 11/21/23 History insulin lispro 100 unit/mL See Rx Instructions SUBCUT 03/15/20 09/03/23 History subcutaneous solution (Humalog USEASDIRECTD U-100 Insulin) [id number] 1 cap PO QID #120 caps 03/15/20 11/21/23 Rx 24,000-76,000-120,000 unit capsule,delayed rel (Creon) duloxetine 60 mg capsule,delayed 60 mg PO QAM 11/01/21 11/21/23 History release (Cymbalta) ondansetron 8 mg disintegrating 8 mg PO PRN PRN nausea/vomiting 02/25/22 09/03/23 History tablet trazodone 50 mg tablet 50 mg PO BEDTIME PRN insomnia #30 03/03/22 09/03/23 Rx tabs morphine 15 mg tablet,extended 30 mg PO .HS 06/06/22 11/21/23 History release (MS Contin) amlodipine 5 mg tablet 10 mg PO DAILY 01/19/23 11/21/23 History rosuvastatin 10 mg tablet 40 mg PO DAILY 01/19/23 09/03/23 History diphenhydramine HCl 12.5 mg/5 mL 50 mg PO Q6H PRN nausea and 06/01/23 11/21/23 History oral elixir vomiting insulin glargine 10 units SUBCUT QAM 06/01/23 09/03/23 History ipratropium-albuterol 3 ml inhalation 4XD PRN For 06/01/23 11/21/23 History shortness of breath metoprolol succinate 25 mg 37.5 mg PO BID 06/01/23 09/03/23 History tablet,extended release 24 hr tadalafil 20 mg PO PRN PRN 1hr before sexual 06/01/23 09/03/23 History activity pantoprazole 40 mg tablet,delayed 40 mg PO BID 06/06/23 09/03/23 History release benzonatate 100 mg capsule 100 mg PO TID PRN cough #45 caps 07/03/23 11/21/23 Rx ezetimibe 10 mg tablet 10 mg PO DAILY 07/03/23 11/21/23 History octreotide acetate 100 mcg/mL 100 mcg SUBCUT TID 07/03/23 09/03/23 History injection solution methylphenidate HCl 20 mg tablet 20 mg PO TID #90 tabs 08/02/23 09/03/23 Rx metoclopramide HCl 10 mg tablet 10 mg PO Q6H PRN nausea and 11/01/23 Rx (Reglan) vomiting #20 tabs oxycodone 7.5 mg tablet,oral ONLY 5 mg PO Q4H PRN pain 11/21/23 11/21/23 History (not for feeding tubes) Allergies Allergy/AdvReac Type Severity Reaction Status Date / Time Iodine and Iodide Containing Allergy Severe Anaphylaxis Verified 09/29/23 18:07 Produc [IODINE AND IODIDE CONTAINING PRODUC] Sulfa (Sulfonamide Allergy Severe Anaphylaxis Verified 09/29/23 18:07 Antibiotics) [SULFA (SULFONAMIDE ANTIBIOTICS)] gabapentin AdvReac Intermediate Dizziness Verified 09/29/23 18:07 [id number] Reductase AdvReac Intermediate Verified 09/29/23 18:07 Inhibitor metformin AdvReac Mild Verified 09/29/23 18:07 Review of Systems Review of Systems Narrative: All else reviewed and otherwise unremarkable except as noted in the history and physical. Exam Vital Signs (past 8 hours): - 11/21/23 09:50 11/21/23 09:51 11/21/23 09:51 Temperature Pulse Rate 95 H 94 H Respiratory Rate Blood Pressure 150/72 H Pulse Oximetry 95 99 Oxygen Delivery Method Oxygen Flow Rate 11/21/23 10:00 11/21/23 10:00 11/21/23 10:01 Temperature 97.8 F Pulse Rate 88 93 H Respiratory Rate 25 H 14 Blood Pressure 140/60 150/72 H Pulse Oximetry 99 99 Oxygen Delivery Method Room Air Oxygen Flow Rate 11/21/23 10:15 11/21/23 10:30 11/21/23 10:31 Temperature Pulse Rate 90 91 H Respiratory Rate 27 H 21 Blood Pressure 148/67 H Pulse Oximetry 98 95 Oxygen Delivery Method Oxygen Flow Rate 11/21/23 10:31 11/21/23 10:44 11/21/23 10:44 Temperature Pulse Rate 88 91 H Respiratory Rate 17 22 Blood Pressure 148/68 H Pulse Oximetry 95 98 Oxygen Delivery Method Oxygen Flow Rate 11/21/23 10:45 11/21/23 10:45 11/21/23 11:00 Temperature Pulse Rate 91 H 92 H Respiratory Rate 20 16 Blood Pressure 145/62 H Pulse Oximetry 98 98 Oxygen Delivery Method Oxygen Flow Rate 11/21/23 11:00 11/21/23 11:15 11/21/23 11:15 Temperature Pulse Rate 92 H Respiratory Rate 23 Blood Pressure 152/72 H 143/56 H Pulse Oximetry 99 Oxygen Delivery Method Oxygen Flow Rate 11/21/23 11:30 11/21/23 11:33 11/21/23 11:33 Temperature Pulse Rate 91 H 90 Respiratory Rate 28 H 23 Blood Pressure 138/63 Pulse Oximetry 98 95 Oxygen Delivery Method Oxygen Flow Rate 11/21/23 11:45 11/21/23 11:45 11/21/23 11:55 Temperature Pulse Rate 93 H Respiratory Rate 34 H Blood Pressure 135/68 153/74 H Pulse Oximetry 97 Oxygen Delivery Method Oxygen Flow Rate 11/21/23 11:55 11/21/23 12:00 11/21/23 12:00 Temperature Pulse Rate 103 H 99 H Respiratory Rate 32 H 35 H Blood Pressure 150/65 H Pulse Oximetry 97 96 Oxygen Delivery Method Nasal Cannula Oxygen Flow Rate 11/21/23 12:15 11/21/23 12:15 11/21/23 12:39 Temperature Pulse Rate 96 H 73 Respiratory Rate 31 H Blood Pressure 130/59 L Pulse Oximetry 95 99 Oxygen Delivery Method Oxygen Flow Rate 11/21/23 12:45 11/21/23 12:46 11/21/23 12:46 Temperature Pulse Rate 97 H 97 H Respiratory Rate 28 H 28 H Blood Pressure 143/67 H Pulse Oximetry 93 93 Oxygen Delivery Method Nasal Cannula Oxygen Flow Rate 2 11/21/23 13:00 11/21/23 13:04 11/21/23 13:04 Temperature Pulse Rate 102 H 99 H Respiratory Rate 33 H 30 H Blood Pressure 151/70 H Pulse Oximetry 94 95 Oxygen Delivery Method Oxygen Flow Rate 11/21/23 13:15 11/21/23 13:30 11/21/23 13:30 Temperature Pulse Rate 101 H 99 H Respiratory Rate 33 H 29 H Blood Pressure 134/64 Pulse Oximetry 95 99 Oxygen Delivery Method Nasal Cannula Oxygen Flow Rate 2 11/21/23 13:45 11/21/23 14:00 11/21/23 14:01 Temperature Pulse Rate 101 H 104 H Respiratory Rate 35 H 27 H Blood Pressure 130/62 Pulse Oximetry 96 99 Oxygen Delivery Method Oxygen Flow Rate 11/21/23 14:01 11/21/23 14:15 11/21/23 14:15 Temperature Pulse Rate 104 H 88 104 H Respiratory Rate 29 H 16 26 H Blood Pressure Pulse Oximetry 98 98 98 Oxygen Delivery Method Nasal Cannula Oxygen Flow Rate 11/21/23 14:30 11/21/23 14:30 Temperature Pulse Rate 108 H Respiratory Rate 26 H Blood Pressure 146/70 H Pulse Oximetry 95 Oxygen Delivery Method Oxygen Flow Rate Oxygen Delivery Method Nasal Cannula Oxygen Flow Rate 2 Narrative Exam Narrative: NAD, alert and oriented, fluent speech, appears anxious with moderate distress. NG tube in place. Normocephalic skull, EOMI, anicteric sclera, symmetric pupils. Oropharynx unremarkable, no droop. Neck supple, midline trachea, no adenopathy. Lungs clear, normal rate and effort. Heart regular, no murmur gallop or rub. Abdomen is soft, non distended and diffusely tender. He does have hyperactive BT's. Extremities are free of edema. Skin is free of rash or lesions. Joints are not swollen or deformed. Judgment appears to be normal. Objective ECG Impression: Normal sinus rhythm T wave abnormality, consider inferior ischemia Similar to previous Imaging CT scan - abdomen: Radiologist's impression: 1. Likely incarcerated loop of small bowel within a left paramidline supraumbilical hernia is likely the cause of a small-bowel obstruction. 2. Remote cholecystectomy. 3. Diverticulosis without evidence of acute diverticulitis. Labs 08/28/24 10:16 11/21/23 10:16 Labs: Laboratory Results - last 24 hr 11/21/23 11/21/23 10:16 12:23 WBC 4.0 L RBC 5.55 Hgb 14.8 Hct 45.0 MCV 81.1 MCH 26.7 MCHC 32.9 RDW 16.5 H Plt Count 322 Neut % (Auto) 70.2 Lymph % (Auto) 26.6 Me[place] % (Auto) 2.1 L Eos % (Auto) 0.6 L Baso % (Auto) 0.5 Neut # (Auto) 2800 Lymph # (Auto) 1100 [place] # (Auto) 100 Eos # (Auto) 0 Baso # (Auto) 0 PT 12.2 INR 1.1 Sodium 141 Potassium 4.2 Chloride 104 Carbon Dioxide 20 L BUN 19 Creatinine 0.87 Estimated GFR > 60 BUN/Creatinine Ratio 21.8 Glucose 79 L Calcium 9.6 Total Bilirubin 0.6 AST 29 ALT 19 Alkaline Phosphatase 93 Total Creatine Kinase 160 Troponin I < 0.012 < 0.012 NT-Pro-B Natriuret Pep 122 Total Protein 8.0 Albumin 5.1 H Globulin 2.9 Albumin/Globulin Ratio 1.8 Lipase 206 Assessment & Plan Assessment & Plan narrative: 1. Acute abdominal pain with evidence of an incarcerated loop of small bowel causing obstruction on CT, present on admission and active. 2. History of recurrent pancreatitis, not clearly active now. 3. CAD with history of angioplasty, present on admission stable. 4. HLD, present on admission stable. 5. Chronic back pain, present on admission and active. 6. Opiate dependence, present on admission and active. Plan: -NG tube to suction. -symptomatic treatment with analgesics and antiemetics. -general surgical consultation -Ativan for nausea and anxiety. -resume other oral medications when able. Inpatient status, anticipate 2 midnights of hospital care. Full resuscitation. Time-Based Coding :: 40 min spent with patient and on the chart (including review of chart, obtaining history, exam, reviewing outside data, placing orders, documenting exam and treatment plan, and counseling patient) on 11/20. Quality MIPS - Admit I confirm the patient?s Advance Care Plan is present, Code status is documented, Surrogate decision maker is in patient?s record [If Yes, STOP here]: Yes MIPS - Meds 'Current medications' to include all prescriptions, [id number] products, herbals, cannabis/cannabidiol products, and vitamin/mineral/dietary (nutritional) supplements. I have utilized all available resources to obtain, update, or review the patient?s current medications. [If Yes, STOP here]: Yes
[2023-11-21] MEDS: PROCHLORPERAZINE 10 MG/2 ML VIAL IV ×2 (15:31→21:28)
[2023-11-21] MEDS: DEXTROSE 5%-0.9% NS 1,000 ML 100 ML IV (15:31)
[2023-11-21 15:34] LABS: Adenovirus F 40/41 Not Detected (Not Detect); Astrovirus Not Detected (Not Detect); Campylobacter Not Detected (Not Detect); Clostridium difficile toxin AB Detected (Not Detect); Cryptosporidium Not Detected (Not Detect); Cyclospora cayetanensis Not Detected (Not Detect); Entamoeba histolytica Not Detected (Not Detect); Enteroaggregative E.coli Not Detected (Not Detect); Enterotoxigenic E.coli It/st Not Detected (Not Detect); Giardia lamblia Not Detected (Not Detect); Norovirus GI/GII Not Detected (Not Detect); Plesiomonsa shigelloides Not Detected (Not Detect); Rotavirus A Not Detected (Not Detect); Salmonella Not Detected (Not Detect); Sapovirus Not Detected (Not Detect); Shigella/Enteroinvasive E.coli Not Detected (Not Detect); Vibrio Not Detected (Not Detect); Vibrio cholerae Not Detected (Not Detect); Yersinia enterocolitica Not Detected (Not Detect)
--- NOTE | 2023-11-21 15:53 | PC.NURSE ---
Pt arrived from ED on stretcher, able to transfer CGA from stretcher to bed. A&Ox4, c/o 10/02 pain to abdomen and nausea. Bowel sounds present and tympanic in LUQ, hypoactive everywhere else. C/o mild chest pain, improved since presenting to ED and with pain meds. No SOB, lungs CTA. Patient oriented to room and call light. Meds administered for nausea per MAY. Bed in low position, call light within reach, pt refused SCDs.
[2023-11-21 16:20] LABS: Shiga-like toxin-prod E.coli Detected (Not Detect)
[2023-11-21] MEDS: VANCOMYCIN 125 MG CAPSULE PO ×2 (16:41→22:17)
[2023-11-21] MEDS: LORazepam 2 MG/ML INJ 1 MG IV (17:07)
--- NOTE | 2023-11-21 18:19 | PM.CN ---
History of Present Illness Consult details Date Patient Seen: 11/21/23 Time Patient Seen: 18:19 Chief complaint: Pancreas flare up Narrative: Alfredo is a 68-year-old man who presented to the ER after several hours of abdominal pain, nausea, vomiting and diarrhea. A CT scan showed a loop of small bowel within his ventral hernia and dilated loops of small bowel suggestive of small-bowel obstruction. He has been having multiple small loose bowel movements. Meds Home Medications and Allergies Home Medications Medication Instructions Recorded Confirmed Type clopidogrel 75 mg tablet (Plavix) 75 mg PO QAM ##0 04/15/08 11/21/23 History acetaminophen 325 mg tablet (Pain 500 mg PO Q4HP PRN Pain, Mild 09/25/17 11/21/23 History Relief (acetaminophen)) dabigatran etexilate 150 mg 150 mg PO BID 03/24/18 09/03/23 History capsule (Pradaxa) lisinopril 2.5 mg tablet 2.5 mg PO QAM blood pressure 04/28/19 11/21/23 History insulin lispro 100 unit/mL See Rx Instructions SUBCUT 03/15/20 09/03/23 History subcutaneous solution (Humalog USEASDIRECTD U-100 Insulin) gltuys-[id number] 1 cap PO QID #120 caps 03/15/20 11/21/23 Rx 24,000-76,000-120,000 unit capsule,delayed rel (Creon) duloxetine 60 mg capsule,delayed 60 mg PO QAM 11/01/21 11/21/23 History release (Cymbalta) ondansetron 8 mg disintegrating 8 mg PO PRN PRN nausea/vomiting 02/25/22 09/03/23 History tablet trazodone 50 mg tablet 50 mg PO BEDTIME PRN insomnia #30 03/03/22 09/03/23 Rx tabs morphine 15 mg tablet,extended 30 mg PO .HS 06/06/22 11/21/23 History release (MS Contin) amlodipine 5 mg tablet 10 mg PO DAILY 01/19/23 11/21/23 History rosuvastatin 10 mg tablet 40 mg PO DAILY 01/19/23 09/03/23 History diphenhydramine HCl 12.5 mg/5 mL 50 mg PO Q6H PRN nausea and 06/01/23 11/21/23 History oral elixir vomiting insulin glargine 10 units SUBCUT QAM 06/01/23 09/03/23 History ipratropium-albuterol 3 ml inhalation 4XD PRN For 06/01/23 11/21/23 History shortness of breath metoprolol succinate 25 mg 37.5 mg PO BID 06/01/23 09/03/23 History tablet,extended release 24 hr tadalafil 20 mg PO PRN PRN 1hr before sexual 06/01/23 09/03/23 History activity pantoprazole 40 mg tablet,delayed 40 mg PO BID 06/06/23 09/03/23 History release benzonatate 100 mg capsule 100 mg PO TID PRN cough #45 caps 07/03/23 11/21/23 Rx ezetimibe 10 mg tablet 10 mg PO DAILY 07/03/23 11/21/23 History octreotide acetate 100 mcg/mL 100 mcg SUBCUT TID 07/03/23 09/03/23 History injection solution methylphenidate HCl 20 mg tablet 20 mg PO TID #90 tabs 08/02/23 09/03/23 Rx metoclopramide HCl 10 mg tablet 10 mg PO Q6H PRN nausea and 11/01/23 Rx (Reglan) vomiting #20 tabs oxycodone 7.5 mg tablet,oral ONLY 5 mg PO Q4H PRN pain 11/21/23 11/21/23 History (not for feeding tubes) Allergies Allergy/AdvReac Type Severity Reaction Status Date / Time Iodine and Iodide Containing Allergy Severe Anaphylaxis Verified 09/29/23 18:07 Produc [IODINE AND IODIDE CONTAINING PRODUC] Sulfa (Sulfonamide Allergy Severe Anaphylaxis Verified 09/29/23 18:07 Antibiotics) [SULFA (SULFONAMIDE ANTIBIOTICS)] gabapentin AdvReac Intermediate Dizziness Verified 09/29/23 18:07 [id number] Reductase AdvReac Intermediate Verified 09/29/23 18:07 Inhibitor metformin AdvReac Mild Verified 09/29/23 18:07 Exam Vital Signs (past 8 hours): - 11/21/23 10:30 11/21/23 10:31 11/21/23 10:31 Temperature Pulse Rate 91 H 88 Respiratory Rate 21 17 Blood Pressure 148/67 H Pulse Oximetry 95 95 Oxygen Delivery Method Oxygen Flow Rate 11/21/23 10:44 11/21/23 10:44 11/21/23 10:45 Temperature Pulse Rate 91 H Respiratory Rate 22 Blood Pressure 148/68 H 145/62 H Pulse Oximetry 98 Oxygen Delivery Method Oxygen Flow Rate 11/21/23 10:45 11/21/23 11:00 11/21/23 11:00 Temperature Pulse Rate 91 H 92 H Respiratory Rate 20 16 Blood Pressure 152/72 H Pulse Oximetry 98 98 Oxygen Delivery Method Oxygen Flow Rate 11/21/23 11:15 11/21/23 11:15 11/21/23 11:30 Temperature Pulse Rate 92 H 91 H Respiratory Rate 23 28 H Blood Pressure 143/56 H Pulse Oximetry 99 98 Oxygen Delivery Method Oxygen Flow Rate 11/21/23 11:33 11/21/23 11:33 11/21/23 11:45 Temperature Pulse Rate 90 93 H Respiratory Rate 23 34 H Blood Pressure 138/63 Pulse Oximetry 95 97 Oxygen Delivery Method Oxygen Flow Rate 11/21/23 11:45 11/21/23 11:55 11/21/23 11:55 Temperature Pulse Rate 103 H Respiratory Rate 32 H Blood Pressure 135/68 153/74 H Pulse Oximetry 97 Oxygen Delivery Method Oxygen Flow Rate 11/21/23 12:00 11/21/23 12:00 11/21/23 12:15 Temperature Pulse Rate 99 H Respiratory Rate 35 H Blood Pressure 150/65 H 130/59 L Pulse Oximetry 96 Oxygen Delivery Method Nasal Cannula Oxygen Flow Rate 11/21/23 12:15 11/21/23 12:39 11/21/23 12:45 Temperature Pulse Rate 96 H 73 97 H Respiratory Rate 31 H 28 H Blood Pressure Pulse Oximetry 95 99 93 Oxygen Delivery Method Nasal Cannula Oxygen Flow Rate 2 11/21/23 12:46 11/21/23 12:46 11/21/23 13:00 Temperature Pulse Rate 97 H 102 H Respiratory Rate 28 H 33 H Blood Pressure 143/67 H Pulse Oximetry 93 94 Oxygen Delivery Method Oxygen Flow Rate 11/21/23 13:04 11/21/23 13:04 11/21/23 13:15 Temperature Pulse Rate 99 H 101 H Respiratory Rate 30 H 33 H Blood Pressure 151/70 H Pulse Oximetry 95 95 Oxygen Delivery Method Nasal Cannula Oxygen Flow Rate 2 11/21/23 13:30 11/21/23 13:30 11/21/23 13:45 Temperature Pulse Rate 99 H 101 H Respiratory Rate 29 H 35 H Blood Pressure 134/64 Pulse Oximetry 99 96 Oxygen Delivery Method Oxygen Flow Rate 11/21/23 14:00 11/21/23 14:01 11/21/23 14:01 Temperature Pulse Rate 104 H 104 H Respiratory Rate 27 H 29 H Blood Pressure 130/62 Pulse Oximetry 99 98 Oxygen Delivery Method Oxygen Flow Rate 11/21/23 14:15 11/21/23 14:15 11/21/23 14:30 Temperature Pulse Rate 88 104 H 108 H Respiratory Rate 16 26 H 26 H Blood Pressure Pulse Oximetry 98 98 95 Oxygen Delivery Method Nasal Cannula Oxygen Flow Rate 11/21/23 14:30 11/21/23 14:45 11/21/23 15:31 Temperature Pulse Rate 109 H 107 H Respiratory Rate 21 Blood Pressure 146/70 H 144/71 H Pulse Oximetry 94 Oxygen Delivery Method Oxygen Flow Rate 11/21/23 16:07 11/21/23 16:20 Temperature 98.5 F Pulse Rate Respiratory Rate Blood Pressure Pulse Oximetry Oxygen Delivery Method Room Air Oxygen Flow Rate Oxygen Delivery Method Room Air Oxygen Flow Rate 2 Narrative Exam Narrative: Abdomen is soft, distended The ventral hernia is easily reducible and the entire circumference of the fascial ring can be palpated after the hernia is reduced Objective Labs 11/21/23 10:16 11/21/23 10:16 Labs: Laboratory Results - last 24 hr 11/21/23 11/21/23 11/21/23 10:16 12:23 13:41 WBC 4.0 L RBC 5.55 Hgb 14.8 Hct 45.0 MCV 81.1 MCH 26.7 MCHC 32.9 RDW 16.5 H Plt Count 322 Neut % (Auto) 70.2 Lymph % (Auto) 26.6 [place]alls % (Auto) 2.1 L Eos % (Auto) 0.6 L Baso % (Auto) 0.5 Neut # (Auto) 2800 Lymph # (Auto) 1100 [place] # (Auto) 100 Eos # (Auto) 0 Baso # (Auto) 0 PT 12.2 INR 1.1 Sodium 141 Potassium 4.2 Chloride 104 Carbon Dioxide 20 L BUN 19 Creatinine 0.87 Estimated GFR > 60 BUN/Creatinine Ratio 21.8 Glucose 79 L Calcium 9.6 Total Bilirubin 0.6 AST 29 ALT 19 Alkaline Phosphatase 93 Total Creatine Kinase 160 Troponin I < 0.012 < 0.012 NT-Pro-B Natriuret Pep 122 Total Protein 8.0 Albumin 5.1 H Globulin 2.9 Albumin/Globulin Ratio 1.8 Lipase 206 Stl C. cayetanensis PCR Not detected Stool Rotavirus (PCR) Not detected Stool Adenovirus (PCR) Not detected Stool Astrovirus (PCR) Not detected Stool Cryptosporidium PCR Not detected Stl E.coli Shiga Tox PCR Detected St Sh/Enteroin Ecoli PCR Not detected Stool E coli O157 PCR Not detected Stl Enterotoxigenic E PCR Not detected Stl E. histolytica PCR Not detected Stool Giardia Lamblia PCR Not detected Stool Sapovirus (PCR) Not detected Stl P. shigelloides PCR Not detected St Y.enterocolitica PCR Not detected Stool Vibrio (PCR) Not detected Stl Vibrio cholerae PCR Not detected Stl Enteroaggr Ecoli PCR Not detected Stl Norovirus GI/GII PCR Not detected Campylobacter (PCR) Not detected C. difficile Tox (PCR) Detected H Salmonella (PCR) Not detected PFSH Medical History Chronic low back pain Coronary artery disease Thyroid nodule Diabetes mellitus Atrial flutter with rapid ventricular response Sepsis Claudication in peripheral vascular disease History of cardioversion (03/07/21) Campylobacter enteritis Exocrine pancreatic insufficiency Acute dehydration Enteritis, enteropathogenic E. coli Paroxysmal atrial fibrillation Psoriasis Narcolepsy GERD (gastroesophageal reflux disease) Hyperlipidemia HTN (hypertension) Insulin dependent diabetes mellitus with complications Peripheral vascular disease Gastroenteritis Pancreatitis Atrial flutter with rapid ventricular response Surgical History History of epididymectomy Hx of biopsy History of femoropopliteal bypass H/O exploratory laparotomy Family History Father Colon cancer Mother Narcolepsy Grandmother Narcolepsy Social History household members: spouse Tobacco & Substance Use Smoking Status: Former smoker alcohol intake: former Assessment & Plan Assessment and plan (1) Ventral incisional hernia: Status: Acute Plan The ventral hernia is easily reducible and is not causing a small-bowel obstruction. A more likely explanation for his symptoms is a viral gastroenteritis. I recommend discontinuation of the NG tube and starting a clear liquid diet. Time-Based Coding :: [TOTAL MINUTES] spent with patient and on the chart (including review of chart, obtaining history, exam, reviewing outside data, placing orders, documenting exam and treatment plan, and counseling patient) on [DATE].
[2023-11-21] MEDS: SODIUM CHLORIDE 0.9% 1,000 ML 100 ML IV (18:22)
[2023-11-21] MEDS: INSULIN LISPRO 100 UNIT/ML 3ML VIAL SUBCUT (18:23)
--- NOTE | 2023-11-21 18:58 | PC.NURSE ---
NG tube removed per order. No complications, pt tolerated well.
[2023-11-21] MEDS: HEPARIN 5,000 UNIT/ML VIAL 5000 UNIT SUBCUT (21:19)
[2023-11-22] MEDS: VANCOMYCIN 125 MG CAPSULE PO ×4 (03:45→23:30)
[2023-11-22 03:50] VITALS: BP 132/80; PULSE 96; RESP 16; O2SAT 98
[2023-11-22] MEDS: HYDROMORPHONE 0.5 MG INJ IV ×3 (04:10→11:51)
[2023-11-22] MEDS: SODIUM CHLORIDE 0.9% 1,000 ML 100 ML IV ×2 (04:39→13:53)
[2023-11-22 08:00] VITALS: BP 107/50; PULSE 105; RESP 16; TEMP 36.6; O2SAT 98
[2023-11-22] MEDS: HEPARIN 5,000 UNIT/ML VIAL 5000 UNIT SUBCUT ×2 (08:16→20:24)
[2023-11-22] MEDS: INSULIN LISPRO 100 UNIT/ML 3ML VIAL SUBCUT ×4 (08:18→20:23)
[2023-11-22] MEDS: SODIUM CHLORIDE 0.9% FLUSH 10 ML IV (08:18)
[2023-11-22] MEDS: ONDANSETRON 4 MG/2 ML INJ IV ×3 (08:25→17:56)
--- NOTE | 2023-11-22 14:00 | CM.DANOTE ---
DCP Assessment note pt is a 68yo M resident of [facility] with a PMH of hypertension, diabetes, and afib here with intense abdominal pain. Found to have C Diff PCP Wil [facility] and self pay [employer] reviewed EMR. 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 Lives with spouse and is indep at baseline,. Per chart, liquid diet, no NG tube, and getting IV abx. Per hospitalist, dc timeline unknown at this time. Per RN, pt indep in room. P: No barriers identified at this time to patient's safe discharge home w/family to assist; close outpatient f/u recommended. CM team will plan to follow closely in case any DC needs or concerns arise. 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 Yes: Yes- Advance Directive Advance Directives on File Yes History Provided By Patient,Medical Record Comment ED visit 09/29/23 and 11/01/23 Prior Living Arrangements House Household Members spouse Type of transporation used prior to Drives own vehicle admit Independent with ADL's Yes Is patient alert and oriented? Yes Comment has cane, does not currently use. Comment Anticipate discharge home. Distant hx of [facility] Discharge Plan Home Transportation Arrangement or supportive family friend will provide transport. If patient plan is home with home health Yes : Has signed face to face form been completed? Review Status In Process Please Provide Date Initial DC 11/22/23 Assessment Was Performed Next Review Type Continued Stay Review
--- NOTE | 2023-11-22 15:28 | PM.PN.1 ---
Subjective Subjective Interval history: 3 bowel movements still this morning, slowly improving after testing showed C. diff and shiga toxin. He feels a slight bit better, but still pretty miserable. Tolerating clears but does not want to try more at this time. Exam Vital Signs (past 8 hours): - 11/22/23 08:00 Temperature 97.8 F Pulse Rate 105 H Respiratory Rate 16 Blood Pressure 107/50 L Pulse Oximetry 98 Oxygen Flow Rate 0 Fraction of Inspired Oxygen 21 Oxygen Delivery Method Room Air Oxygen Flow Rate 0 Narrative Exam Narrative: GEN: no distress, appears to be in pain and mildly ill appearing HEENT: moist mucous membranes, PERRL NECK: trachea midline, no JVD CV: regular rate and rhythm, no murmurs PULM: clear bilaterally ABD: epigastric and suprapubic to LLQ tenderness today, no rebound. EXT: warm and well perfused with no edema NEURO: awake, alert, oriented, no focal deficits Objective Labs 11/21/23 10:16 11/21/23 10:16 Labs: Laboratory Results - last 24 hr 11/21/23 13:41 Stl C. cayetanensis PCR Not detected Stool Rotavirus (PCR) Not detected Stool Adenovirus (PCR) Not detected Stool Astrovirus (PCR) Not detected Stool Cryptosporidium PCR Not detected Stl E.coli Shiga Tox PCR Detected St Sh/Enteroin Ecoli PCR Not detected Stool E coli O157 PCR Not detected Stl Enterotoxigenic E PCR Not detected Stl E. histolytica PCR Not detected Stool Giardia Lamblia PCR Not detected Stool Sapovirus (PCR) Not detected Stl P. shigelloides PCR Not detected St Y.enterocolitica PCR Not detected Stool Vibrio (PCR) Not detected Stl Vibrio cholerae PCR Not detected Stl Enteroaggr Ecoli PCR Not detected Stl Norovirus GI/GII PCR Not detected Campylobacter (PCR) Not detected C. difficile Tox (PCR) Detected H Salmonella (PCR) Not detected PFSH Medical History Chronic low back pain Coronary artery disease Thyroid nodule Diabetes mellitus Atrial flutter with rapid ventricular response Sepsis Claudication in peripheral vascular disease History of cardioversion (03/07/21) Campylobacter enteritis Exocrine pancreatic insufficiency Acute dehydration Enteritis, enteropathogenic E. coli Paroxysmal atrial fibrillation Psoriasis Narcolepsy GERD (gastroesophageal reflux disease) Hyperlipidemia HTN (hypertension) Insulin dependent diabetes mellitus with complications Peripheral vascular disease Gastroenteritis Pancreatitis Atrial flutter with rapid ventricular response Surgical History History of epididymectomy Hx of biopsy History of femoropopliteal bypass H/O exploratory laparotomy Family History Father Colon cancer Mother Narcolepsy Grandmother Narcolepsy Social History household members: spouse Smoking Status: Former smoker alcohol intake: former Assessment & Plan Assessment & Plan narrative: 1. Enterocolitis with C. diff and Shiga Toxin. 2. History of recurrent pancreatitis, possibly acute 3. CAD with history of angioplasty, present on admission stable. 4. HLD, present on admission stable. 5. Chronic back pain, present on admission and active. 6. Opiate dependence, present on admission and active. Plan: -continue clears today. 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 May have a component of this but more likely enterocolitis with PCR positive for Shiga toxin AND C. diff toxin. -continue IV fluids -Continue oral vancomycin for C. diff, supportive care for pos. Shiga toxin / E.coli infection. -Continue current pain control, pancreatic enzymes. -holding home antihypertensives including lisinopril, metoprolol, and amlodipine. BP low normal today. -continue oral PPI. -resume home morphine and oxycodone for pain control and to avoid opiate withdrawal. Continue IV dilaudid for breakthrough. -resume other oral medications when able. Inpatient status. Discharge home possibly in 2-3 more days likely. Full resuscitation. Surrogate is patient's partner Yisel. Time-Based Coding :: [TOTAL MINUTES] spent with patient and on the chart (including review of chart, obtaining history, exam, reviewing outside data, placing orders, documenting exam and treatment plan, and counseling patient) on [DATE]. Quality VTE Deep Vein Thrombosis/Pulmonary Embolism Present on Admission: No
[2023-11-22] MEDS: OXYCODONE IR 5 MG TABLET PO (17:07)
[2023-11-22 19:00] VITALS: BP 122/68; PULSE 89; RESP 20; O2SAT 97
[2023-11-22] MEDS: PANTOPRAZOLE DR 40 MG TABLET PO (20:24)
[2023-11-22] MEDS: MORPHINE ER 15 MG TABLET PO (20:36)
[2023-11-22] MEDS: LORazepam 2 MG/ML INJ 1 MG IV (20:38)
[2023-11-23] MEDS: SODIUM CHLORIDE 0.9% 1,000 ML 100 ML IV ×3 (00:42→21:09)
[2023-11-23] MEDS: HYDROMORPHONE 0.5 MG INJ IV ×5 (02:51→18:54)
[2023-11-23] MEDS: ONDANSETRON 4 MG/2 ML INJ IV ×4 (04:12→20:55)
[2023-11-23] MEDS: VANCOMYCIN 125 MG CAPSULE PO ×4 (04:42→22:49)
[2023-11-23 05:14] LABS: Add Manual Diff / Slide Review NO; Basophils Absolute Auto 0 /uL (0-100); Basophils Percent Auto 0.4 % (0-2); Eosinophils Absolute Auto 100 /uL (0-450); Eosinophils Percent Auto 1.2 % (2-4); Hematocrit 36.4 % (41-53); Hemoglobin 11.7 g/dL (13.5-17.5); Lymphocytes Absolute Auto 1600 /uL (1100-4500); Lymphocytes Percent Auto 23.4 % (25-40); Mean Corpuscular HGB Conc 32.3 % (30-36); Mean Corpuscular Hemoglobin 26.2 PG (26-34); Mean Corpuscular Volume 81.1 fL (80-100); Monocytes Absolute Auto 600 /uL (0-900); Monocytes Percent Auto 8.3 % (3-14); Neutrophils Absolute Auto 4700 /uL (1500-7000); Neutrophils Percent Auto 66.7 % (50-75); Platelet Count 296 X10^3/uL (150-400); Red Blood Cell Count 4.48 X10^6/uL (4.5-5.9); Red Cell Distribution Width 16.6 % (11.6-14.8)
[2023-11-23 05:20] LABS: BUN Creatinine Ratio 14.3 (6-22); Blood Urea Nitrogen 9 mg/dL (9-20); Calcium 8.3 mg/dL (8.4-10.2); Carbon Dioxide 23 mmol/L (22-32); Chloride 107 mmol/L (98-107); Estimated Glomerular Filt Rate > 60 mL/min (>60); Glucose 118 mg/dL (80-110); HEMOLYSIS < 15 (0-50); Potassium 3.6 mmol/L (3.4-5.1); Sodium 137 mmol/L (137-145)
[2023-11-23] MEDS: PANTOPRAZOLE DR 40 MG TABLET PO ×2 (06:12→20:55)
[2023-11-23 08:00] VITALS: BP 129/65; PULSE 84; RESP 16; TEMP 36.6; O2SAT 98
[2023-11-23] MEDS: SODIUM CHLORIDE 0.9% FLUSH 10 ML IV (08:49)
[2023-11-23] MEDS: LORazepam 2 MG/ML INJ 1 MG IV ×3 (10:31→22:48)
[2023-11-23] MEDS: HEPARIN 5,000 UNIT/ML VIAL 5000 UNIT SUBCUT ×2 (10:32→20:55)
[2023-11-23] MEDS: OXYCODONE IR 5 MG TABLET PO ×3 (11:14→22:48)
--- NOTE | 2023-11-23 12:20 | CM.DPC ---
DCP Continued: Reviewed EMR and team rounds for pt?s medical status. Per hospitalist, pt can be eligible for discharge when diarrhea ceases. Per RN, pt still feeling ill and advancing diet. No new discharge needs identified at this time. Plan: Anticipating discharge home with partner when medically stable, possibly in next 1-2 days. CM Team will continue to follow for coordination of discharge plans. ALBARO Gayle
[2023-11-23] MEDS: INSULIN LISPRO 100 UNIT/ML 3ML VIAL SUBCUT (12:47)
--- NOTE | 2023-11-23 16:18 | P.PN_ITS ---
Subjective Subjective Interval history: More formed stools today, slowly improving after testing showed C. diff and shiga toxin. He feels a slight bit better, but still pretty miserable. Tolerating clears but does not want to try more at this time still, had some emesis this morning. Continues to have severe lower quadrant pain improved after bowel movements. Exam Vital Signs (past 8 hours): - 11/23/23 09:50 Oxygen Delivery Method Room Air Fraction of Inspired Oxygen 21 Oxygen Delivery Method Room Air Oxygen Flow Rate 0 Narrative Exam Narrative: GEN: no distress, appears to be in pain and mildly ill appearing HEENT: moist mucous membranes, PERRL NECK: trachea midline, no JVD CV: regular rate and rhythm, no murmurs PULM: clear bilaterally ABD: epigastric and suprapubic to LLQ tenderness today, no rebound. EXT: warm and well perfused with no edema NEURO: awake, alert, oriented, no focal deficits Objective Labs 11/23/23 05:00 11/23/23 05:00 Labs: Laboratory Results - last 24 hr 11/23/23 05:00 WBC 7.0 D RBC 4.48 L Hgb 11.7 L Hct 36.4 L MCV 81.1 MCH 26.2 MCHC 32.3 RDW 16.6 H Plt Count 296 Neut % (Auto) 66.7 Lymph % (Auto) 23.4 L [place] % (Auto) 8.3 Eos % (Auto) 1.2 L Baso % (Auto) 0.4 Neut # (Auto) 4700 Lymph # (Auto) 1600 [place] # (Auto) 600 Eos # (Auto) 100 Baso # (Auto) 0 Sodium 137 Potassium 3.6 Chloride 107 Carbon Dioxide 23 BUN 9 Creatinine 0.63 L Estimated GFR > 60 BUN/Creatinine Ratio 14.3 Glucose 118 H Calcium 8.3 L PFSH Medical History Chronic low back pain Coronary artery disease Thyroid nodule Diabetes mellitus Atrial flutter with rapid ventricular response Sepsis Claudication in peripheral vascular disease History of cardioversion (03/07/21) Campylobacter enteritis Exocrine pancreatic insufficiency Acute dehydration Enteritis, enteropathogenic E. coli Paroxysmal atrial fibrillation Psoriasis Narcolepsy GERD (gastroesophageal reflux disease) Hyperlipidemia HTN (hypertension) Insulin dependent diabetes mellitus with complications Peripheral vascular disease Gastroenteritis Pancreatitis Atrial flutter with rapid ventricular response Surgical History History of epididymectomy Hx of biopsy History of femoropopliteal bypass H/O exploratory laparotomy Family History Father Colon cancer Mother Narcolepsy Grandmother Narcolepsy Social History household members: spouse Smoking Status: Former smoker alcohol intake: former Assessment & Plan Assessment & Plan narrative: 1. Enterocolitis with C. diff and E. coli with Shiga Toxin. 2. History of recurrent pancreatitis, probably acute 3. CAD with history of angioplasty, present on admission stable. 4. HLD, present on admission stable. 5. Chronic back pain, present on admission and active. 6. Opiate dependence, present on admission and active. Plan: -continue clears today. 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 Enterocolitis with PCR positive for Shiga toxin AND C. diff toxin. -continue IV fluids today, reassess daily -Continue oral vancomycin for C. diff, supportive care for pos. Shiga toxin / E.coli infection. -Continue current pain control, pancreatic enzymes. -holding home antihypertensives including lisinopril, metoprolol, and amlodipine. BP low normal today. -continue oral PPI. -resume home morphine and oxycodone for pain control and to avoid opiate withdrawal. Continue IV dilaudid for breakthrough. -resume other oral medications when able. Inpatient status. Discharge home possibly in 1-2 more days likely. Full resuscitation. Surrogate is patient's partner Yisel. Time-Based Coding :: [TOTAL MINUTES] spent with patient and on the chart (including review of chart, obtaining history, exam, reviewing outside data, placing orders, documenting exam and treatment plan, and counseling patient) on [DATE]. Quality VTE Deep Vein Thrombosis/Pulmonary Embolism Present on Admission: No
[2023-11-23 16:38] LABS: C difficie Toxins A and B, EIA Negative (Negative)
[2023-11-23 19:00] VITALS: BP 141/74; PULSE 82; RESP 18; O2SAT 96
[2023-11-23] MEDS: MORPHINE ER 15 MG TABLET PO (20:55)
[2023-11-24] MEDS: VANCOMYCIN 125 MG CAPSULE PO ×4 (03:52→22:33)
[2023-11-24] MEDS: OXYCODONE IR 5 MG TABLET PO ×3 (03:52→20:18)
[2023-11-24] MEDS: ONDANSETRON 4 MG/2 ML INJ IV ×3 (03:52→18:48)
[2023-11-24 05:02] LABS: Add Manual Diff / Slide Review NO; Basophils Absolute Auto 0 /uL (0-100); Basophils Percent Auto 0.8 % (0-2); Eosinophils Absolute Auto 200 /uL (0-450); Hematocrit 35.9 % (41-53); Hemoglobin 11.8 g/dL (13.5-17.5); Lymphocytes Absolute Auto 1400 /uL (1100-4500); Mean Corpuscular HGB Conc 32.8 % (30-36); Mean Corpuscular Hemoglobin 26.4 PG (26-34); Mean Corpuscular Volume 80.3 fL (80-100); Monocytes Absolute Auto 500 /uL (0-900); Monocytes Percent Auto 7.8 % (3-14); Neutrophils Absolute Auto 3900 /uL (1500-7000); Neutrophils Percent Auto 64.4 % (50-75); Platelet Count 302 X10^3/uL (150-400); Red Blood Cell Count 4.47 X10^6/uL (4.5-5.9); Red Cell Distribution Width 16.4 % (11.6-14.8); White Blood Cell Count 6.1 X10^3/uL (4.5-11.0)
[2023-11-24 05:06] LABS: BUN Creatinine Ratio 10.4 (6-22); Blood Urea Nitrogen 7 mg/dL (9-20); Calcium 8.3 mg/dL (8.4-10.2); Carbon Dioxide 23 mmol/L (22-32); Chloride 107 mmol/L (98-107); Estimated Glomerular Filt Rate > 60 mL/min (>60); Glucose 111 mg/dL (80-110); HEMOLYSIS < 15 (0-50); Potassium 3.7 mmol/L (3.4-5.1); Sodium 137 mmol/L (137-145)
[2023-11-24] MEDS: HYDROMORPHONE 0.5 MG INJ IV ×5 (06:25→22:23)
[2023-11-24] MEDS: LORazepam 2 MG/ML INJ 1 MG IV ×2 (06:25→22:23)
[2023-11-24] MEDS: PANTOPRAZOLE DR 40 MG TABLET PO ×2 (06:26→20:19)
--- NOTE | 2023-11-24 07:51 | P.PN_ITS ---
Subjective Subjective Interval history: He says that he feels much better today. He continues to be astonished that he developed this enterocolitis. He had attended a potluck but does not seem to have any other risk factors. 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 Exam Vital Signs (past 8 hours): Fraction of Inspired Oxygen 21 Oxygen Delivery Method Room Air Oxygen Flow Rate 0 Narrative Exam Narrative: Alert and oriented x3. No apparent distress. Heart is regular rate and rhythm without murmur. Lungs are clear to auscultation bilaterally. Abdomen is obese, diffusely tender, no organomegaly soft. Extremities have no ankle edema. Objective Labs 11/24/23 04:45 11/24/23 04:45 Labs: Laboratory Results - last 24 hr 11/21/23 11/24/23 13:41 04:45 WBC 6.1 RBC 4.47 L Hgb 11.8 L Hct 35.9 L MCV 80.3 MCH 26.4 MCHC 32.8 RDW 16.4 H Plt Count 302 Neut % (Auto) 64.4 Lymph % (Auto) 23.0 L [place] % (Auto) 7.8 Eos % (Auto) 4.0 Baso % (Auto) 0.8 Neut # (Auto) 3900 Lymph # (Auto) 1400 [place] # (Auto) 500 Eos # (Auto) 200 Baso # (Auto) 0 Sodium 137 Potassium 3.7 Chloride 107 Carbon Dioxide 23 BUN 7 L Creatinine 0.67 Estimated GFR > 60 BUN/Creatinine Ratio 10.4 Glucose 111 H Calcium 8.3 L C. diff Toxin A&B (EIA) Negative [facility] Medical History Chronic low back pain Coronary artery disease Thyroid nodule Diabetes mellitus Atrial flutter with rapid ventricular response Sepsis Claudication in peripheral vascular disease History of cardioversion (03/07/21) Campylobacter enteritis Exocrine pancreatic insufficiency Acute dehydration Enteritis, enteropathogenic E. coli Paroxysmal atrial fibrillation Psoriasis Narcolepsy GERD (gastroesophageal reflux disease) Hyperlipidemia HTN (hypertension) Insulin dependent diabetes mellitus with complications Peripheral vascular disease Gastroenteritis Pancreatitis Atrial flutter with rapid ventricular response Surgical History History of epididymectomy Hx of biopsy History of femoropopliteal bypass H/O exploratory laparotomy Family History Father Colon cancer Mother Narcolepsy Grandmother Narcolepsy Social History household members: spouse Smoking Status: Former smoker alcohol intake: former Assessment & Plan Assessment & Plan narrative: 1. Enterocolitis with C. diff and E. coli with Shiga Toxin. 2. History of recurrent pancreatitis, probably acute 3. CAD with history of angioplasty, present on admission stable. 4. HLD, present on admission stable. 5. Chronic back pain, present on admission and active. 6. Opiate dependence, present on admission and active. Plan: -does not appear to have pancreatitis but does have Enterocolitis with PCR positive for Shiga toxin AND C. diff toxin. -continue IV fluids -Continue oral vancomycin for C. diff, supportive care for pos. Shiga toxin / E.coli infection. -Continue current pain control, pancreatic enzymes. -holding home antihypertensives including lisinopril, metoprolol, and amlodipine. BP low normal today. -continue oral PPI. -resume home morphine and oxycodone for pain control and to avoid opiate withdrawal. Continue IV dilaudid for breakthrough. -resume other oral medications when able. Inpatient status. Discharge home possibly in 1-2 more days likely. Full resuscitation. Surrogate is patient's partner Yisel. Time-Based Coding :: [TOTAL MINUTES] spent with patient and on the chart (including review of chart, obtaining history, exam, reviewing outside data, placing orders, documenting exam and treatment plan, and counseling patient) on [DATE]. Quality VTE Deep Vein Thrombosis/Pulmonary Embolism Present on Admission: No
[2023-11-24 08:00] VITALS: BP 148/77; PULSE 84; RESP 17; TEMP 36.3; O2SAT 94
[2023-11-24] MEDS: HEPARIN 5,000 UNIT/ML VIAL 5000 UNIT SUBCUT ×2 (09:20→20:19)
[2023-11-24] MEDS: SODIUM CHLORIDE 0.9% FLUSH 10 ML IV ×2 (09:20→20:20)
[2023-11-24] MEDS: LIPASE/PROTEASE/AMYLASE 5/17/24 CAP 5 CAP PO ×3 (09:20→16:55)
[2023-11-24] MEDS: INSULIN LISPRO 100 UNIT/ML 3ML VIAL SUBCUT ×2 (12:32→16:56)
[2023-11-24] MEDS: SODIUM CHLORIDE 0.9% 1,000 ML 100 ML IV (16:55)
[2023-11-24 19:00] VITALS: BP 147/87; PULSE 87; RESP 16; TEMP 36.3; O2SAT 99
[2023-11-24] MEDS: MORPHINE ER 15 MG TABLET PO (20:19)
[2023-11-25] MEDS: SODIUM CHLORIDE 0.9% 1,000 ML 100 ML IV ×3 (02:58→23:00)
[2023-11-25] MEDS: VANCOMYCIN 125 MG CAPSULE PO ×4 (04:34→22:02)
[2023-11-25] MEDS: ONDANSETRON 4 MG/2 ML INJ IV ×2 (04:41→12:16)
[2023-11-25] MEDS: HYDROMORPHONE 0.5 MG INJ IV ×5 (04:41→21:50)
[2023-11-25] MEDS: PANTOPRAZOLE DR 40 MG TABLET PO ×2 (06:16→21:49)
[2023-11-25] MEDS: OXYCODONE IR 5 MG TABLET PO (06:25)
[2023-11-25] MEDS: LORazepam 2 MG/ML INJ 1 MG IV ×3 (06:27→21:49)
[2023-11-25] MEDS: SODIUM CHLORIDE 0.9% FLUSH 10 ML IV ×3 (08:10→21:51)
[2023-11-25] MEDS: HEPARIN 5,000 UNIT/ML VIAL 5000 UNIT SUBCUT ×2 (08:11→21:50)
[2023-11-25] MEDS: LIPASE/PROTEASE/AMYLASE 5/17/24 CAP 5 CAP PO (08:11)
--- NOTE | 2023-11-25 08:11 | PM.PN.1 ---
Subjective Subjective Interval history: He continues to experience abdominal pain and diffuse tenderness. He says his appetite is very, very poor. He says whenever he feels like he is needing to have a bowel movement he just passes a lot of gas. There are no labs today. We will plan to do another CT if he is not better by tomorrow. Exam Vital Signs (past 8 hours): Fraction of Inspired Oxygen 21 Oxygen Delivery Method Room Air Oxygen Flow Rate 0 Narrative Exam Narrative: Alert and oriented x3. No apparent distress. Heart is regular rate and rhythm without murmur Lungs are clear to auscultation bilaterally Extremities have no ankle edema Abdomen is mildly tender diffusely. Soft, bowel sounds active, no organomegaly. Objective Labs 11/24/23 04:45 11/24/23 04:45 [facility] Medical History Chronic low back pain Coronary artery disease Thyroid nodule Diabetes mellitus Atrial flutter with rapid ventricular response Sepsis Claudication in peripheral vascular disease History of cardioversion (03/07/21) Campylobacter enteritis Exocrine pancreatic insufficiency Acute dehydration Enteritis, enteropathogenic E. coli Paroxysmal atrial fibrillation Psoriasis Narcolepsy GERD (gastroesophageal reflux disease) Hyperlipidemia HTN (hypertension) Insulin dependent diabetes mellitus with complications Peripheral vascular disease Gastroenteritis Pancreatitis Atrial flutter with rapid ventricular response Surgical History History of epididymectomy Hx of biopsy History of femoropopliteal bypass H/O exploratory laparotomy Family History Father Colon cancer Mother Narcolepsy Grandmother Narcolepsy Social History household members: spouse Smoking Status: Former smoker alcohol intake: former Assessment & Plan Assessment & Plan narrative: 1. Enterocolitis with C. diff and E. coli with Shiga Toxin. 2. History of recurrent pancreatitis, probably acute 3. CAD with history of angioplasty, present on admission stable. 4. HLD, present on admission stable. 5. Chronic back pain, present on admission and active. 6. Opiate dependence, present on admission and active. Plan: -does not appear to have pancreatitis but does have Enterocolitis with PCR positive for Shiga toxin AND C. diff toxin. -continue IV fluids -Continue oral vancomycin for C. diff, supportive care for pos. Shiga toxin / E.coli infection. -Continue current pain control, pancreatic enzymes. -holding home antihypertensives including lisinopril, metoprolol, and amlodipine. -continue oral PPI. -resume home morphine and oxycodone for pain control and to avoid opiate withdrawal. Continue IV dilaudid for breakthrough. -plan repeat CT on 11/25 if abdominal pain plateau continues without improvement. -resume other oral medications when able. Inpatient status. Discharge home possibly in 1-2 more days likely. Full resuscitation. Surrogate is patient's partner Yisel. Time-Based Coding :: [TOTAL MINUTES] spent with patient and on the chart (including review of chart, obtaining history, exam, reviewing outside data, placing orders, documenting exam and treatment plan, and counseling patient) on [DATE]. Quality VTE Deep Vein Thrombosis/Pulmonary Embolism Present on Admission: No
[2023-11-25] MEDS: INSULIN LISPRO 100 UNIT/ML 3ML VIAL SUBCUT ×3 (08:13→16:56)
[2023-11-25 08:20] VITALS: BP 137/79; PULSE 78; RESP 19; TEMP 36.1; O2SAT 98
[2023-11-25 20:00] VITALS: BP 143/80; PULSE 65; RESP 18; TEMP 36.2; O2SAT 97
[2023-11-25] MEDS: MORPHINE ER 15 MG TABLET PO (21:49)
[2023-11-26] MEDS: HYDROMORPHONE 0.5 MG INJ IV ×8 (01:52→21:35)
[2023-11-26] MEDS: ONDANSETRON 4 MG/2 ML INJ IV ×5 (02:01→18:55)
[2023-11-26] MEDS: VANCOMYCIN 125 MG CAPSULE PO ×4 (05:03→21:35)
[2023-11-26] MEDS: PANTOPRAZOLE DR 40 MG TABLET PO ×2 (06:02→20:46)
[2023-11-26 07:00] VITALS: BP 152/86; PULSE 84; RESP 16; TEMP 36.3; O2SAT 96
[2023-11-26] MEDS: LORazepam 2 MG/ML INJ 1 MG IV ×3 (08:52→18:55)
[2023-11-26] MEDS: SODIUM CHLORIDE 0.9% FLUSH 10 ML IV ×2 (08:52→08:56)
[2023-11-26 08:53] VITALS: BP 152/86; PULSE 84
[2023-11-26] MEDS: HEPARIN 5,000 UNIT/ML VIAL 5000 UNIT SUBCUT ×2 (08:53→20:46)
[2023-11-26] MEDS: PROCHLORPERAZINE 10 MG/2 ML VIAL IV (08:53)
[2023-11-26] MEDS: SODIUM CHLORIDE 0.9% 1,000 ML 100 ML IV ×2 (09:10→21:36)
[2023-11-26] MEDS: OXYCODONE IR 5 MG TABLET PO ×2 (09:54→17:53)
--- NOTE | 2023-11-26 11:01 | DI.CT.S_ITS ---
PROCEDURE: CT ABDOMEN PELVIS W CON INDICATIONS: continued upper/lower abd pain, c. diff, shiga toxin + TECHNIQUE: After the administration of intravenous contrast, axial sections acquired from the lung bases to the pubic symphysis. Coronal and sagittal reformats were performed. For radiation dose reduction, the following was used: automated exposure control, adjustment of mA and/or kV according to patient size. COMPARISON: [facility], CT, CT ABDOMEN PELVIS W CON, 11/21/2023, 12:27. FINDINGS: Image quality: Diagnostic. Lower Chest: Trace bilateral pleural effusions. Dependent atelectasis. No focal pulmonary consolidation. Partially visualized LAD coronary stent. Mild calcification of the thoracic aorta. Small hiatal hernia. ABDOMEN: Liver: No solid mass. Gallbladder: Cholecystectomy. Biliary ducts: Extrahepatic biliary ductal dilatation with smooth distal tapering compatible with post cholecystectomy reservoir effect. Pancreas: No ductal dilation. Spleen: Size is within normal limits. Adrenal Glands: No adrenal nodules. Kidneys and Ureters: No hydronephrosis. No solid mass. No complex renal cystic lesion which requires follow up. Stomach and Bowel: Stomach is decompressed, limiting evaluation, but appears grossly normal. Small and large bowel is normal in caliber, without obstruction. Compared to prior CT dated November 21, 2023, previously seen dilated loops of small bowel are no longer seen. Normal appendix (47). Tubular structure in the right lower quadrant with blind end which demonstrates fat stranding and inflammation (-, -). Sigmoid and colonic diverticulosis, without diverticulitis. Peritoneum: No abnormal intraperitoneal fluid. No free air. Ventral Wall: Small left paramidline ventral hernia containing a nondistended loop of small bowel with neck measuring 2.8 cm (2/50). Abdominal Nodes: No retroperitoneal or mesenteric adenopathy by size criteria. Vessels: Aorta and inferior vena cava are normal in size. PELVIS: Pelvic Organs: Unremarkable. Bladder: No bladder wall thickening, accounting for underdistention. Pelvic Nodes: No enlarged lymph nodes. Miscellaneous: No inguinal hernias are seen. Bones: No aggressive osseous abnormality. Mild to moderate multilevel degenerative changes of the spine. IMPRESSION: 1. Compared to prior CT dated November 21, 2023, previously seen dilated loops of small bowel are no longer seen. 2. Tubular structure in the right lower quadrant with blind end which demonstrates mild fat stranding and inflammation and arises from the distal ileum. This is distinct from the normal appendix. Findings may be secondary to a Meckel's diverticulum/diverticulitis. No perforation or abscess. 3. Small left paramidline ventral hernia containing a nondistended loop of small bowel with neck measuring 2.8 cm. 4. Trace bilateral pleural effusions. These findings were discussed with Dr. Roy at the time of dictation on November 26, 2023. Dictated by: Tadeo Castillo M.D. on 11/26/2023 at 15:19 Approved by: Tadeo Castillo M.D. on 11/26/2023 at 15:50
--- NOTE | 2023-11-26 11:22 | DIET.CONS ---
Dietary Consultation Note Admission Date: 11/21/2023 14:35 Assessment: 68 y M presenting with abd pain, found to have enterocolitis with c. diff and e. coli with shiga toxin. PMH of pancreatitis, on enzymes. Nutrition screened for LOS day 5. Pt sleeping. Per RN, pt declined clears tray this morning d/t feeling queasy. Had large, soft formed stool early in morning. Pt on day 5 of NPO/clears. Pt has worked with dietitian in past and is aware of his best tolerated foods with pancreatitis. Protein options tolerate last admission included soy and pea proteins. Will coordinate tolerated options when diet advanced. Ht: 177.8 cm Wt: 88 kg BMI: 27.8 UBW: 84-86 kg within last 6 months per EMR. No recent weight loss. Last BM: 11/26/23 (11/26/23 02:18) MNA: 13 Todd Score: 18 Diet: 11/21/23 15:04 NPO Diet Diet Modifications: NPO Type: Strict 11/21/23 Dinner Clear Liquid Diet Diet Modifications: Nutrition Percent Meal Consumed 0% 11/26/23 09:00 Labs: RBC 4.47 X10^6/uL (4.5-5.9) L 11/24/23 04:45 Hgb 11.8 g/dL (13.5-17.5) L 11/24/23 04:45 Hct 35.9 % (41-53) L 11/24/23 04:45 Creatinine 0.67 mg/dL (0.66-1.25) 11/24/23 04:45 NT-Pro-B Natriuret Pep 122 pg/mL (<125) 11/21/23 10:16 Nutrition Diagnosis: Inadequate energy intake r/t alterations in normal GI tract function aeb NPO/clears for 5 days Interventions: 1. Monitor for diet advancement, will coordinate pt's best tolerated foods EER: [id number] kcals (20-25 kcals/kg per BMI) 80-90 g protein (1 g/kg per age) Monitoring/Evaluations: diet, po intakes Electronically Signed by: Liliana Olson 11/26/23 11:22 Clinical Dietitian [address] [id number]
[2023-11-26 11:34] LABS: Add Manual Diff / Slide Review NO; Basophils Absolute Auto 0 /uL (0-100); Basophils Percent Auto 0.1 % (0-2); Eosinophils Absolute Auto 300 /uL (0-450); Eosinophils Percent Auto 4.7 % (2-4); Hematocrit 36.3 % (41-53); Hemoglobin 12.1 g/dL (13.5-17.5); Lymphocytes Absolute Auto 1000 /uL (1100-4500); Mean Corpuscular HGB Conc 33.3 % (30-36); Mean Corpuscular Hemoglobin 26.5 PG (26-34); Mean Corpuscular Volume 79.6 fL (80-100); Monocytes Absolute Auto 400 /uL (0-900); Neutrophils Absolute Auto 4600 /uL (1500-7000); Neutrophils Percent Auto 73.2 % (50-75); Platelet Count 301 X10^3/uL (150-400); Red Blood Cell Count 4.56 X10^6/uL (4.5-5.9); Red Cell Distribution Width 16.4 % (11.6-14.8); White Blood Cell Count 6.3 X10^3/uL (4.5-11.0)
[2023-11-26 11:45] LABS: Lipase 90 U/L (23-300); Magnesium 1.6 mg/dL (1.6-2.3); Phosphorous 3.2 mg/dL (2.3-3.7)
[2023-11-26 11:46] LABS: Alanine Aminotransferase 29 IU/L (<50); Albumin 3.6 g/dL (3.5-5.0); Albumin Globulin Ratio 1.4 (1.0-2.8); Alkaline Phosphatase 65 U/L (38-126); Aspartate Aminotransferase 37 IU/L (17-59); BUN Creatinine Ratio 4.8 (6-22); Bilirubin Total 0.5 mg/dL (0.2-1.3); Blood Urea Nitrogen 3 mg/dL (9-20); Calcium 8.6 mg/dL (8.4-10.2); Carbon Dioxide 22 mmol/L (22-32); Chloride 106 mmol/L (98-107); Estimated Glomerular Filt Rate > 60 mL/min (>60); Globulin 2.5 g/dL (1.7-4.1); Glucose 137 mg/dL (80-110); HEMOLYSIS < 15 (0-50); Potassium 3.4 mmol/L (3.4-5.1); Sodium 135 mmol/L (137-145); Total Protein 6.1 g/dL (6.3-8.2)
[2023-11-26] MEDS: methylPREDNISolone 125 MG/2 ML VIAL IV (11:48)
[2023-11-26] MEDS: diphenhydrAMINE 50 MG/ML VIAL IV ×2 (11:49→15:08)
--- NOTE | 2023-11-26 16:28 | PM.PN.1 ---
Subjective Subjective Interval history: He continues to experience abdominal pain and diffuse tenderness, though mainly lower abdominal pain. CT with contrast pending from today. Lipase rechecked and was improved. His last BM was yesterday and formed. Unable to tolerate anything more than a small amount of clear liquids. Exam Vital Signs (past 8 hours): - 11/26/23 08:53 Pulse Rate 84 Blood Pressure 152/86 H Fraction of Inspired Oxygen 21 Oxygen Delivery Method Room Air Oxygen Flow Rate 0 Narrative Exam Narrative: Alert and oriented x3. No apparent distress. Heart is regular rate and rhythm without murmur Lungs are clear to auscultation bilaterally Extremities have no ankle edema Abdomen is mildly tender diffusely more prominent lower abdomen. Soft, bowel sounds active, no organomegaly. Objective Labs 11/26/23 11:25 11/26/23 11:25 Labs: Laboratory Results - last 24 hr 11/26/23 11:25 WBC 6.3 RBC 4.56 Hgb 12.1 L Hct 36.3 L MCV 79.6 L MCH 26.5 MCHC 33.3 RDW 16.4 H Plt Count 301 Neut % (Auto) 73.2 Lymph % (Auto) 16.0 L Dubois % (Auto) 6.0 Eos % (Auto) 4.7 H Baso % (Auto) 0.1 Neut # (Auto) 4600 Lymph # (Auto) 1000 L Dubois # (Auto) 400 Eos # (Auto) 300 Baso # (Auto) 0 Sodium 135 L Potassium 3.4 Chloride 106 Carbon Dioxide 22 BUN 3 L Creatinine 0.63 L Estimated GFR > 60 BUN/Creatinine Ratio 4.8 L Glucose 137 H Calcium 8.6 Phosphorus 3.2 Magnesium 1.6 Total Bilirubin 0.5 AST 37 ALT 29 Alkaline Phosphatase 65 Total Protein 6.1 L Albumin 3.6 Globulin 2.5 Albumin/Globulin Ratio 1.4 Lipase 90 D [facility] Medical History Chronic low back pain Coronary artery disease Thyroid nodule Diabetes mellitus Atrial flutter with rapid ventricular response Sepsis Claudication in peripheral vascular disease History of cardioversion (03/07/21) Campylobacter enteritis Exocrine pancreatic insufficiency Acute dehydration Enteritis, enteropathogenic E. coli Paroxysmal atrial fibrillation Psoriasis Narcolepsy GERD (gastroesophageal reflux disease) Hyperlipidemia HTN (hypertension) Insulin dependent diabetes mellitus with complications Peripheral vascular disease Gastroenteritis Pancreatitis Atrial flutter with rapid ventricular response Surgical History History of epididymectomy Hx of biopsy History of femoropopliteal bypass H/O exploratory laparotomy Family History Father Colon cancer Mother Narcolepsy Grandmother Narcolepsy Social History household members: spouse Smoking Status: Former smoker alcohol intake: former Assessment & Plan Assessment & Plan narrative: 1. Enterocolitis with C. diff and E. coli with Shiga Toxin. 2. History of recurrent pancreatitis, probably acute 3. CAD with history of angioplasty, present on admission stable. 4. HLD, present on admission stable. 5. Chronic back pain, present on admission and active. 6. Opiate dependence, present on admission and active. Plan: -does not appear to have pancreatitis but does have Enterocolitis with PCR positive for Shiga toxin AND C. diff toxin. -continue IV fluids -Continue oral vancomycin for C. diff, supportive care for pos. Shiga toxin / E.coli infection. -Continue current pain control, pancreatic enzymes. -holding home antihypertensives including lisinopril, metoprolol, and amlodipine. -continue oral PPI. -resume home morphine and oxycodone for pain control and to avoid opiate withdrawal. Continue IV dilaudid for breakthrough. -pending repeat CT scan from today to determine optimal course forward, consider diverticulitis, possible abscess or continued enteritis. -resume other oral medications when able. -with prolonged tolerance of only minimal clears, consider TPN for nutrition. Inpatient status. Discharge home possibly in 1-2 more days likely. Full resuscitation. Surrogate is patient's partner Yisel. Time-Based Coding :: [TOTAL MINUTES] spent with patient and on the chart (including review of chart, obtaining history, exam, reviewing outside data, placing orders, documenting exam and treatment plan, and counseling patient) on [DATE]. Quality VTE Deep Vein Thrombosis/Pulmonary Embolism Present on Admission: No
[2023-11-26] MEDS: METOCLOPRAMIDE 10 MG/2 ML INJ IV (16:53)
[2023-11-26] MEDS: INSULIN LISPRO 100 UNIT/ML 3ML VIAL SUBCUT ×2 (17:01→20:48)
[2023-11-26] MEDS: metroNIDAZOLE 500 MG/100 ML PIGGYBACK 100 MG IV (18:56)
[2023-11-26 19:50] VITALS: BP 144/80; PULSE 96; RESP 18; TEMP 36.5; O2SAT 94
[2023-11-26] MEDS: CIPROFLOXACIN 400 MG/200 ML PIGGYBACK 200 MG IV (20:44)
[2023-11-26] MEDS: MORPHINE ER 15 MG TABLET PO (20:45)
--- NOTE | 2023-11-27 01:10 | PC.NURSE ---
pt watching tv in bed. contact enteric precautions in place. vss, however tachycardic and hypertensive. reports 6/10 cramping pain in abdomen. scheduled morphine dose given. pt A&O x4. O2 sats 94% on RA. lungs CTA bilaterally. passing flatus with active bowel sounds x4. abdomen soft and non tender. denies nausea. denies diarrhea. reports poor appetite, but has been able to tolerate peppermint tea which has helped his nausea not reoccur for a while. voids w/ urinal, urine clear and yellow. skin intact. scds placed on bilateral calfs. independent in the room, so bed alarm not turned on. bed in lowest position, call light within reach.
[2023-11-27] MEDS: metroNIDAZOLE 500 MG/100 ML PIGGYBACK 100 MG IV ×3 (02:52→18:41)
[2023-11-27] MEDS: HYDROMORPHONE 0.5 MG INJ IV ×3 (02:53→14:03)
[2023-11-27] MEDS: VANCOMYCIN 125 MG CAPSULE PO ×4 (03:15→21:51)
[2023-11-27] MEDS: CIPROFLOXACIN 400 MG/200 ML PIGGYBACK 200 MG IV ×2 (06:12→17:36)
[2023-11-27] MEDS: PANTOPRAZOLE DR 40 MG TABLET PO ×2 (06:12→20:36)
[2023-11-27 07:42] VITALS: BP 147/78; PULSE 84; RESP 19; TEMP 36.5; O2SAT 98
[2023-11-27] MEDS: HEPARIN 5,000 UNIT/ML VIAL 5000 UNIT SUBCUT ×2 (08:28→20:37)
[2023-11-27] MEDS: ONDANSETRON 4 MG/2 ML INJ IV ×3 (08:29→18:40)
[2023-11-27] MEDS: INSULIN LISPRO 100 UNIT/ML 3ML VIAL SUBCUT ×3 (08:29→16:55)
[2023-11-27] MEDS: SODIUM CHLORIDE 0.9% FLUSH 10 ML IV ×3 (08:31→20:38)
--- NOTE | 2023-11-27 10:43 | DIET.PN1 ---
Dietary Progress Note Assessment: Per hospitalist in healthcare rounds, okay to advance pt's diet. Ordered diet. Met w/ pt. Drank apple juice this morning and experienced an increase in abdominal pain. Is wanting to try BRAT type diet for lunch. This is pt's baseline diet. Took pt's lunch order. Has not had intake besides clear liquids since last Sunday. Diet is usually modified/liberalized BRAT diet. Tolerates white fish, white chicken, soy and pea protein for protein. Will monitor closely for diet tolerance. Ht: 177.8 cm Wt: 88 kg BMI: 27.8 UBW: 84-86 kg within last 6 months per EMR. Last BM: 11/26/23 (11/26/23 02:18) MNA: 13 Todd Score: 19 Diet: 11/21/23 Dinner Clear Liquid Diet Diet Modifications: 11/27/23 Lunch Carbohydrate Consistent Diet Diet Modifications: low fiber, BRAT Carbohydrate level: Medium (3 CHO) Reflex DM orders: No Food Texture: Level 7 - Regular Liquid Consistency: Level 0 - Thin Nutrition Percent Meal Consumed 0% 11/26/23 13:00 Percent Meal Consumed 0% 11/26/23 09:00 Labs: RBC 4.56 X10^6/uL (4.5-5.9) 11/26/23 11:25 Hgb 12.1 g/dL (13.5-17.5) L 11/26/23 11:25 Hct 36.3 % (41-53) L 11/26/23 11:25 Creatinine 0.63 mg/dL (0.66-1.25) L 11/26/23 11:25 NT-Pro-B Natriuret Pep 122 pg/mL (<125) 11/21/23 10:16 Electronically Signed by: Liliana Olson 11/27/23 10:43 Clinical Dietitian [address] [id number]
--- NOTE | 2023-11-27 11:03 | CM.DPNOTE ---
DCP Note [employer] reviewed EMR. Per hospitalist in morning rounds, pt remains not really getting better. Considering starting IV abx. Advancing diet to BRAT today. Plan: Anticipating discharge home with partner when medically stable, possibly in next 1-2 days. CM Team will continue to follow for coordination of discharge plans. f/u if IV abx will be needed at discharge. RIMA Burrell
[2023-11-27] MEDS: OXYCODONE IR 5 MG TABLET PO (11:16)
[2023-11-27] MEDS: LORazepam 2 MG/ML INJ 1 MG IV (11:17)
[2023-11-27] MEDS: METOCLOPRAMIDE HCL 5 MG TABLET 10 MG PO (11:48)
[2023-11-27] MEDS: LIPASE/PROTEASE/AMYLASE 5/17/24 CAP 5 CAP PO ×2 (11:48→16:55)
[2023-11-27] MEDS: SODIUM CHLORIDE 0.9% 1,000 ML 100 ML IV (12:23)
--- NOTE | 2023-11-27 17:46 | PM.PN.1 ---
Subjective Subjective Interval history: He continues to experience lower abdominal cramping pain. May be a bit worse with reglan. Tolerating a BRAT diet today. Started on antibiotics yesterday, without much change today. No BM now for 2 days, agreeable to colace and senna. Will up oxycodone to his usual home dose as well to see if more effective. Exam Vital Signs (past 8 hours): Fraction of Inspired Oxygen 21 Oxygen Delivery Method Room Air Oxygen Flow Rate 0 Narrative Exam Narrative: Alert and oriented x3. No apparent distress. Heart is regular rate and rhythm without murmur Lungs are clear to auscultation bilaterally Extremities have no ankle edema Abdomen is mildly tender diffusely more prominent lower abdomen. Soft, bowel sounds active, no organomegaly. Objective Labs 11/26/23 11:25 11/26/23 11:25 [facility] Medical History Chronic low back pain Coronary artery disease Thyroid nodule Diabetes mellitus Atrial flutter with rapid ventricular response Sepsis Claudication in peripheral vascular disease History of cardioversion (03/07/21) Campylobacter enteritis Exocrine pancreatic insufficiency Acute dehydration Enteritis, enteropathogenic E. coli Paroxysmal atrial fibrillation Psoriasis Narcolepsy GERD (gastroesophageal reflux disease) Hyperlipidemia HTN (hypertension) Insulin dependent diabetes mellitus with complications Peripheral vascular disease Gastroenteritis Pancreatitis Atrial flutter with rapid ventricular response Surgical History History of epididymectomy Hx of biopsy History of femoropopliteal bypass H/O exploratory laparotomy Family History Father Colon cancer Mother Narcolepsy Grandmother Narcolepsy Social History household members: spouse Smoking Status: Former smoker alcohol intake: former Assessment & Plan Assessment & Plan narrative: 1. Enterocolitis with C. diff and E. coli with Shiga Toxin. 2. History of recurrent pancreatitis, probably acute 3. CAD with history of angioplasty, present on admission stable. 4. HLD, present on admission stable. 5. Chronic back pain, present on admission and active. 6. Opiate dependence, present on admission and active. Plan: -does not appear to have pancreatitis but does have Enterocolitis with PCR positive for Shiga toxin AND C. diff toxin. -stop IV fluids today, PO intake slightly improved with BRAT diet. -Continue oral vancomycin for C. diff. Added antibiotics cipro/flagyl as discussed below on 11/25 afternoon. -Continue current pain control, pancreatic enzymes. -holding home antihypertensives including lisinopril, metoprolol, and amlodipine. -continue oral PPI. -resume home morphine and oxycodone for pain control and to avoid opiate withdrawal. Continue IV dilaudid for breakthrough. -repeat CT on 11/25 showed an inflamed diverticulum separate of the patient's appendix in the RLQ. Did discuss with surgery etiology unclear, given situation, agreed with plan for initiation of cipro/flagyl to treat like a possible diverticulitis but low threshold to stop. Should pain be ongoing and not improving consider repeat imaging. Also consider still effects of enteritis from E.coli / shiga toxin. UA ordered and is negative for infection. Post void residual was low (ruling out urinary obstruction leading to his lower abdominal pain.) -resume other oral medications when able. Not on usual insulin with decreased oral intake. Inpatient status. Discharge home possibly in 1-2 more days likely. Full resuscitation. Surrogate is patient's partner Yisel. Discussed with surgeon as noted above, as well as bedside RN, patient's spouse and son, and case management to contribute to the above history, assessment and plan. Time-Based Coding :: [TOTAL MINUTES] spent with patient and on the chart (including review of chart, obtaining history, exam, reviewing outside data, placing orders, documenting exam and treatment plan, and counseling patient) on [DATE]. Quality VTE Deep Vein Thrombosis/Pulmonary Embolism Present on Admission: No
[2023-11-27 17:49] LABS: Appearance Urine UA CLEAR; Bilirubin Urine UA NEGATIVE (NEGATIVE); Color Urine UA YELLOW; Glucose Urine UA NEGATIVE (Negative); Ketones Urine UA NEGATIVE (NEGATIVE); Leukocyte Esterase Urine UA NEGATIVE (NEGATIVE); Nitrite Urine UA NEGATIVE (Negative); Occult Blood Urine UA NEGATIVE (Negative); Protein Urine UA NEGATIVE (Negative); Specific Gravity Urine UA <=1.005 (1.000-1.035); Urobilinogen Urine UA 0.2 E.U./dL (0.2); pH Urine UA 6.5 (4.5-8.0)
[2023-11-27 17:56] LABS: Bacteria Urine Occasional (0-1); Culture Indicated Urine Cult Not Indicated; RBC Urine None Seen (0-5/HPF); Squamous Epithelial Cell Urine 0-1 /HPF (0-5/HPF); Urine Volume 10mL (spun); WBC Urine 0-1/HPF (0-5/HPF)
[2023-11-27] MEDS: OXYCODONE IR 5 MG TABLET 10 MG PO (18:40)
[2023-11-27 20:00] VITALS: BP 143/77; PULSE 84; RESP 20; TEMP 36.4; O2SAT 97
[2023-11-27] MEDS: MORPHINE ER 15 MG TABLET PO (20:36)
[2023-11-27] MEDS: SENNOSIDES 8.6 MG TABLET 17.2 MG PO (20:36)
[2023-11-27] MEDS: DOCUSATE 100 MG CAPSULE PO (20:36)
[2023-11-27] MEDS: diphenhydrAMINE 50 MG/ML VIAL IV (20:36)
[2023-11-28] MEDS: OXYCODONE IR 5 MG TABLET 10 MG PO ×2 (01:50→10:10)
[2023-11-28] MEDS: metroNIDAZOLE 500 MG/100 ML PIGGYBACK 100 MG IV (01:51)
[2023-11-28] MEDS: VANCOMYCIN 125 MG CAPSULE PO ×2 (04:25→09:26)
[2023-11-28] MEDS: CIPROFLOXACIN 400 MG/200 ML PIGGYBACK 200 MG IV (06:48)
[2023-11-28] MEDS: PANTOPRAZOLE DR 40 MG TABLET PO (06:48)
[2023-11-28 07:00] VITALS: BP 139/74; PULSE 76; RESP 16; TEMP 36.7; O2SAT 96
[2023-11-28 08:13] VITALS: BP 139/74; PULSE 70
[2023-11-28] MEDS: HEPARIN 5,000 UNIT/ML VIAL 5000 UNIT SUBCUT (08:13)
[2023-11-28] MEDS: DOCUSATE 100 MG CAPSULE PO (08:13)
[2023-11-28] MEDS: lisinopriL 5 MG TABLET 2.5 MG PO (08:13)
[2023-11-28] MEDS: LIPASE/PROTEASE/AMYLASE 5/17/24 CAP 5 CAP PO (08:21)
--- NOTE | 2023-11-28 08:49 | P.DS_ITS ---
History of Present Illness History of Present Illness Date Patient Seen: 11/28/23 Time Patient Seen: 08:55 Chief complaint: Pancreas flare up Narrative: Per admitting provider, The patient was a 60-year-old male with a history of CAD and stenting, chronic recurrent pancreatitis, hypertension, hyperlipidemia, diabetes, empiric ABX he was mellitus offer fibrillation. He was on Plavix as well as dabigatran. Patient presents with acute abdominal pain. This began yesterday. The patient was epigastric and reminiscent of is pancreatitis. The patient had more severe pain today and took multiple doses of his home medications including antiemetics and pain medications. He also tried nitroglycerin. Ultimately, the pain continued to escalate and he presented to the ED. he was diaphoretic, appeared to be moderately ill, and received IV pain medications. At home he took 40 mg of oxycodone, g of MS Contin, 24 mg of Zofran, 25 mg of promethazine, 10 mg Reglan, on the 2 sublingual nitroglycerins. In the emergency department, imaging indicated a possible incarcerated periumbilical hernia. He was known to Dr. Velasco, who is on-call today, and was notified of his presentation and CT findings. General surgery is consulted he will see him later today. The patient denies history of incarcerated hernia and feels that this is more consistent with his pancreatitis. He vomited many times and always gastric 2+ in the emergency department with a fairly high volume of material or recovered. He also developed bowel movements today for very loose stools. He had been constipated for several days. The pain is midepigastric some radiation to the back but does not radiate to the shoulder. The mostly. The nausea is also constant. Discharge Providers Provider Date of admission: 11/21/23 14:35 Discharge Date: 11/28/23 Primary care physician: Eric Huang MD Consults: 11/21/23 14:36 Consult to General Surgery Stat Comment: Consulting Provider: Ronaldo Velasco Reason for consultation: SBO Has provider been notified: Yes 11/21/23 17:40 Consult to General Surgery Routine Comment: Consulting Provider: Ronaldo Velasco Reason for consultation: SBO Has provider been notified: Yes Discharge provider: Brian Roy DO Summary Hospital Course Discharge Diagnosis: 1. Enterocolitis with C. diff and E. coli with Shiga Toxin. 2. History of recurrent pancreatitis, probably acute 3. CAD with history of angioplasty, present on admission stable. 4. HLD, present on admission stable. 5. Chronic back pain, present on admission and active. 6. Opiate dependence, present on admission and active. 7. Diverticulitis vs infected meckle's diverticulum Hospital Course: This is a 68 year old male, with PMH of chronic pancreatitis, CAD, HLD, chronic pain and opiate dependence who presented with acute abdominal pain. Initially he presented as a possible incarcerated hernia and possible bowel obstruction, but he quickly developed loose stools. NG tube was placed on admit but quickly removed. With diarrhea, he did test positive for C. diff AND shiga toxin. He was started on oral vancomycin with slow improvement in stools. His lower, cramping abdominal pain was slower to improve and his diet was not able to be advanced beyond clears for much of his course. Eventually, repeat CT was obtained on 11/25 with an inflamed diverticulum separate of the patient's appendix in the RLQ. Discussed with surgery and there was not a clear etiology to this finding. He was started on cipro/flagyl for possible diverticulitis or possible infected meckle's diverticulum (though this is typically found with much different presentations at a much younger age) at that time despite no leukocytosis or fever given his pain and CT findings. He did not show much improvement day 1 after antibiotics. I recommended that he stop reglan at that time given his enteritis, and transition to ativan for nausea instead. The following morning his abdominal pain had almost completely resolved, he was ambulating the halls and tolerating a BRAT diet. He was discharged home. Given unclear etiology, he was discharged home on oral vancomycin for C. diff, along with cipro/flagyl for possible infected meckle's (or diverticulitis). Repeat lipase was checked and was improved, suggesting symptoms were not due to his chronic pancreatitis pain and patient is quite reliable stating that his pain was different. Another possibility may be from pro-motility effect of reglan with his recent enterocolitis and he improved with alternative anti-nauseal medications. No other changes to his home medications are recommended on discharge. Recommend continued follow up with primary care as previously planned, unless symptoms return and recommend more urgent follow up. Time Spent with Patient Time spent: Greater than 30 minutes Exam Vital Signs (past 8 hours): - 11/28/23 08:13 Pulse Rate 70 Blood Pressure 139/74 Fraction of Inspired Oxygen 21 Oxygen Delivery Method Room Air Oxygen Flow Rate 0 Narrative Exam Narrative: Alert and oriented x3. No apparent distress. Ambulating the halls, similing. Objective Labs 11/26/23 11:25 11/26/23 11:25 Labs: Laboratory Results - last 24 hr 11/27/23 17:10 Urine Color Yellow Urine Appearance Clear Urine pH 6.5 Ur Specific Pierson <=1.005 Urine Protein Negative Urine Glucose (UA) Negative Urine Ketones Negative Urine Occult Blood Negative Urine Nitrate Negative Urine Bilirubin Negative Urine Urobilinogen 0.2 Ur Leukocyte Esterase Negative Urine RBC None seen Urine WBC 0-1/hpf Ur Squamous Epith Cells 0-1 /hpf Urine Bacteria Occasional (0-1) Ur Culture Indicated? Cult not indicated Vol Urine Centrifuged 10ml (spun) [facility] Medical History Chronic low back pain Coronary artery disease Thyroid nodule Diabetes mellitus Atrial flutter with rapid ventricular response Sepsis Claudication in peripheral vascular disease History of cardioversion (03/07/21) Campylobacter enteritis Exocrine pancreatic insufficiency Acute dehydration Enteritis, enteropathogenic E. coli Paroxysmal atrial fibrillation Psoriasis Narcolepsy GERD (gastroesophageal reflux disease) Hyperlipidemia HTN (hypertension) Insulin dependent diabetes mellitus with complications Peripheral vascular disease Gastroenteritis Pancreatitis Atrial flutter with rapid ventricular response Surgical History History of epididymectomy Hx of biopsy History of femoropopliteal bypass H/O exploratory laparotomy Family History Father Colon cancer Mother Narcolepsy Grandmother Narcolepsy Social History household members: spouse Smoking Status: Former smoker alcohol intake: former Discharge Plan Discharge Plan Patient Disposition: Home Provider Discharge Comment: You were admitted to the hospital with enterocolitis. Unclear as to the etiology of your lower abdominal pain, but probably related to the infection you had. Since this improved, okay for discharge home. Okay to continue your regular diet. For at least a few more days, try ativan for nausea instead of reglan. You can try to return to reglan next week but be cautious if this restarts your pain again. Continue antibiotics at home, please complete them all and finish the bottles, do not stop early. Discharge orders & Medications Prescriptions: New ciprofloxacin HCl 500 mg tablet 500 mg PO BID 3 Days Qty: 6 0RF metronidazole 500 mg tablet 500 mg PO Q8H 3 Days Qty: 9 0RF vancomycin 125 mg capsule 125 mg PO QID 7 Days Qty: 28 0RF lorazepam 0.5 mg tablet 0.5 mg PO TID PRN (Reason: nausea and vomiting) 14 Days Qty: 30 0RF Continued clopidogrel [Plavix] 75 mg Tablet 75 mg PO QAM Qty: 0 methylphenidate HCl 20 mg tablet 20 mg PO TID Qty: 90 0RF insulin lispro [Humalog U-100 Insulin] 100 unit/mL solution See Rx Instructions SUBCUT USEASDIRECTD Rx Instructions: 2-4 sliding scale SUBCUT use as directed; Creon 24,000-76,000 -120,000 unit capsule,delayed release(DR/EC) 1 cap PO QID Qty: 120 12RF Rx Instructions: administer with meals and/or snacks prn sliding scale. 1 capsule for every 600 calories morphine [MS Contin] 15 mg tablet extended release 30 mg PO .HS rosuvastatin 10 mg tablet 40 mg PO DAILY amlodipine 5 mg tablet 10 mg PO DAILY duloxetine [Cymbalta] 60 mg capsule,delayed release(DR/EC) 60 mg PO QAM ezetimibe 10 mg tablet 10 mg PO DAILY octreotide acetate 100 mcg/mL solution 100 mcg SUBCUT TID benzonatate 100 mg capsule 100 mg PO TID PRN (Reason: cough) Qty: 45 0RF acetaminophen [Pain Relief (acetaminophen)] 325 MG tablet 500 mg PO Q4HP PRN (Reason: Pain, Mild) dabigatran etexilate [Pradaxa] 150 mg Capsule 150 mg PO BID ondansetron 8 mg tablet,disintegrating 8 mg PO PRN PRN (Reason: nausea/vomiting) trazodone 50 mg Tablet 50 mg PO BEDTIME PRN (Reason: insomnia) Qty: 30 0RF Rx Instructions: can take 1/2 tab (25mg) if 50 is too strong metoprolol succinate 25 mg Tablet Extended Release 24 Hr 37.5 mg PO BID ipratropium-albuterol inhaler 3 ml inhalation 4XD PRN (Reason: For shortness of breath) tadalafil 20 mg PO PRN PRN (Reason: 1hr before sexual activity) diphenhydramine HCl 12.5 mg/5 mL elixir 50 mg PO Q6H PRN (Reason: nausea and vomiting) insulin glargine 10 units SUBCUT QAM pantoprazole 40 mg Tablet,Delayed Release (Dr/Ec) 40 mg PO BID metoclopramide HCl [Reglan] 10 mg tablet 10 mg PO Q6H PRN (Reason: nausea and vomiting) Qty: 20 0RF oxycodone 7.5 mg tablet, oral only 5 mg PO Q4H PRN (Reason: pain) lisinopril 2.5 mg Tablet 2.5 mg PO QAM Follow up/Referrals: Eric Huang MD [Primary Care Provider] - 12/04/23 10:30 am (Appt:12/03 @ 10:[address] Huang please arrive 15 min prior to your scheduled appointment time ) Diet/Activity/Treatments Diet: Diet as Tolerated and Low-fat Activity: As tolerated, no restrictions. Skin/Wound/Dressing Care Report to your healthcare provider any signs of infection, such as:: chills, fever Visit Report/Discharge Packet Instructions: DI for Small Bowel Obstruction, DI for Prescription Opioid Use, Vancomycin, Lorazepam, Ciprofloxacin, Metronidazole Stand Alone Forms: Patient Portal/API, Stroke Signs & Symptoms Discharge Data Primary Care Provider: Eric Huang Quality VTE Deep Vein Thrombosis/Pulmonary Embolism Present on Admission: No
[2023-11-28 09:26] VITALS: BP 139/74; PULSE 76; RESP 16; TEMP 36.7; O2SAT 96
--- NOTE | 2023-11-28 09:35 | DIET.PN1 ---
Dietary Progress Note Assessment: Pt reports tolerating meals, was up and preparing for d/c upon visit. Has good understanding of nutrition for himself and had no nutrition related questions/concerns. Ht: 177.8 cm Wt: 88 kg BMI: 27.8 UBW: Last BM: 11/27/23 (11/27/23 17:38) MNA: 13 Todd Score: 20 Diet: 11/27/23 Lunch Carbohydrate Consistent Diet Diet Modifications: low fiber, BRAT Carbohydrate level: Medium (3 CHO) Reflex DM orders: No Food Texture: Level 7 - Regular Liquid Consistency: Level 0 - Thin Nutrition Percent Meal Consumed 25% 11/27/23 12:51 Percent Meal Consumed 0% 11/26/23 13:00 Labs: RBC 4.56 X10^6/uL (4.5-5.9) 11/26/23 11:25 Hgb 12.1 g/dL (13.5-17.5) L 11/26/23 11:25 Hct 36.3 % (41-53) L 11/26/23 11:25 Creatinine 0.63 mg/dL (0.66-1.25) L 11/26/23 11:25 NT-Pro-B Natriuret Pep 122 pg/mL (<125) 11/21/23 10:16 Electronically Signed by: Liliana Olson 11/28/23 09:35 Clinical Dietitian [address] [id number]
--- NOTE | 2023-11-28 10:17 | PC.NURSE ---
Pt is dressed and ready for d/c home with spouse. IV has been removed. Went over d/c instructions with Pt. Discussed d/c meds, time of last dose, stroke education. Reminded Pt to take his full scheduled dose of antibiotics until they are completed, and to follow up as scheduled. Pt denied further questions. Will be taken out via w/c with all belongings by [employer]ORM[employer] SUPERVISOR when spouse arrives. Reminded Pt not to drive while taking narcotics, and to drink plenty of fluids to prevent constipation and dehydration.
--- NOTE | 2023-11-28 12:14 | CM.DPNOTE ---
DC Note Discharge home today, close outpatient follow up. Patient back to functional and cognitive baseline, no needs from this CM team identified. JW
== END 2023-11-28 11:00 | disposition home or self-care (01) | DRG 372 ==
LOC: ED 14:11 → AC 14:36
PROVIDERS: Internal Medicine; Admitting Provider Hospitalist; Emergency Provider Emergency Medicine; Family Provider Nurse Practitioner Family; PCP Family Medicine; Referring Provider Emergency Medicine; Visit Provider Hospitalist
DX: A04.72 Enterocolitis due to Clostridium difficile, not specified as recurrent (principal); F11.20 Opioid dependence, uncomplicated; K57.92 Diverticulitis of intestine, part unspecified, without perforation or abscess without bleeding; K43.9 Ventral hernia without obstruction or gangrene; I25.10 Atherosclerotic heart disease of native coronary artery without angina pectoris; E78.5 Hyperlipidemia, unspecified; G89.29 Other chronic pain; M54.9 Dorsalgia, unspecified; B96.23 Unspecified Shiga toxin-producing Escherichia coli [E. coli] [STEC] as the cause of diseases classified elsewhere; E11.649 Type 2 diabetes mellitus with hypoglycemia without coma; I10 Essential (primary) hypertension; K21.9 Gastro-esophageal reflux disease without esophagitis; Z87.891 Personal history of nicotine dependence; Z95.5 Presence of coronary angioplasty implant and graft; Z87.19 Personal history of other diseases of the digestive system; Z79.02 Long term (current) use of antithrombotics/antiplatelets; Z79.4 Long term (current) use of insulin
CPT/HCPCS: 36415; 51798; 74177; 80048; 80053; 81001; 81003; 82550; 82962; 83690; 83735; 83880; 84100; 84484; 85025; 85610; 87324; 87507; 93005; 94640; 96374; 96375; 99285; 99291; A9270; J0744; J0780; J1170; J1200; J1642; J1644; J1815; J2060; J2270; J2405; J2765; J2919; Q9967

== ENCOUNTER → 2023-12-07 15:54 | Outpatient (CLI) | payer OTHER, SELFPAY ==
[2023-11-21 15:10] VITALS: BMI 27.8
[2023-12-07 16:42] LABS: Add Manual Diff / Slide Review NO; Basophils Absolute Auto 0 /uL (0-100); Basophils Percent Auto 0.6 % (0-2); Eosinophils Absolute Auto 300 /uL (0-450); Eosinophils Percent Auto 4.5 % (2-4); Hemoglobin 12.3 g/dL (13.5-17.5); Lymphocytes Absolute Auto 1300 /uL (1100-4500); Lymphocytes Percent Auto 19.4 % (25-40); Mean Corpuscular HGB Conc 33.1 % (30-36); Mean Corpuscular Hemoglobin 26.6 PG (26-34); Mean Corpuscular Volume 80.4 fL (80-100); Monocytes Absolute Auto 800 /uL (0-900); Monocytes Percent Auto 11.2 % (3-14); Neutrophils Absolute Auto 4400 /uL (1500-7000); Neutrophils Percent Auto 64.3 % (50-75); Platelet Count 274 X10^3/uL (150-400); Red Blood Cell Count 4.61 X10^6/uL (4.5-5.9); Red Cell Distribution Width 16.7 % (11.6-14.8); White Blood Cell Count 6.9 X10^3/uL (4.5-11.0)
[2023-12-07 17:38] LABS: Alanine Aminotransferase 20 IU/L (<50); Albumin Globulin Ratio 1.6 (1.0-2.8); Alkaline Phosphatase 84 U/L (38-126); Aspartate Aminotransferase 22 IU/L (17-59); BUN Creatinine Ratio 21.2 (6-22); Bilirubin Total 0.4 mg/dL (0.2-1.3); Blood Urea Nitrogen 14 mg/dL (9-20); Calcium 9.1 mg/dL (8.4-10.2); Carbon Dioxide 28 mmol/L (22-32); Chloride 98 mmol/L (98-107); Estimated Glomerular Filt Rate > 60 mL/min (>60); Globulin 2.5 g/dL (1.7-4.1); Glucose 317 mg/dL (80-110); HEMOLYSIS < 15 (0-50); Potassium 4.5 mmol/L (3.4-5.1); Sodium 133 mmol/L (137-145); Total Protein 6.5 g/dL (6.3-8.2)
[2023-12-07 18:14] LABS: TSH w/ Reflex to FT4 1.05 uIU/mL (0.47-4.68)
== END ==
PROVIDERS: Family Provider Nurse Practitioner Family; PCP Family Medicine; Referring Provider Family Medicine; Visit Provider Family Medicine
DX: A04.72 Enterocolitis due to Clostridium difficile, not specified as recurrent (principal); E11.9 Type 2 diabetes mellitus without complications; K86.1 Other chronic pancreatitis; I73.9 Peripheral vascular disease, unspecified; I10 Essential (primary) hypertension; K86.81 Exocrine pancreatic insufficiency; I25.10 Atherosclerotic heart disease of native coronary artery without angina pectoris
CPT/HCPCS: 36415; 80053; 84443; 85025

== ENCOUNTER → 2023-12-13 13:59 | Outpatient (CLI) | payer OTHER, SELFPAY ==
[2023-11-21 15:10] VITALS: BMI 27.8
--- NOTE | 2023-12-14 17:25 | DIAB.INIT ---
Initial Diabetes Education Assessment Name: Jann Diehl (Alfredo) Date: 12/13/23 Time: 2-3p Dx: Insulin Dependent Diabetes Provider: Sal Fuentes presents today for initial DM visit for insulin pump start. We are accompanied by [employer] new accounts banking representative. Reports PMH of diabetes >25 years, attributes to exposure during service. Today he brought his supplies, including Medtronic 780G insulin pump and 9GAG CGM Guardian Connect. TDD: 45u (25u Lantus, 5u Lispro TID) Reduced dose: 45u x 0.75: 34u Total daily basal: 34 x 0.5: 17u Initial basal rate: 17u / 24 hours: 0.7u/hr I:C ratio: 450 / 34 (TDD): 13 grams per unit I:C = 1:15 Insulin sensitivity factor: 1800 / 34u (TDD); 53 mg/dl/1u Target ranges: 100-120 mg/dl Alfredo did take Lantus this morning. Temp basal rate: 30% until 22 hours have passed since last injection. Self-Monitoring Blood Glucose: Currently using FSL2 Diabetes Medications: Lantus 25u Lispro 5u TID Pertinent Labs: HgA1c: 8.0% 02/2022 8.2% 03/2022 11.1% 07/2023 Past Medical History: (Last Reviewed 11/21/23 @ 14:59 by Brock Moreno MD) Acute dehydration Atrial flutter with rapid ventricular response Atrial flutter with rapid ventricular response Patient with recalcitrant Afib/RVR, history of similar. Likely exacerbated due to pneumonia/influenza, pancreatitis. Failed electrical cardioversion, dilt, amio. Has received Dig x 1. Campylobacter enteritis Chronic low back pain Claudication in peripheral vascular disease Coronary artery disease Diabetes mellitus Enteritis, enteropathogenic E. coli Exocrine pancreatic insufficiency Gastroenteritis GERD (gastroesophageal reflux disease) History of cardioversion (03/07/21) ED @ [facility] HTN (hypertension) Hyperlipidemia Insulin dependent diabetes mellitus with complications Narcolepsy Pancreatitis Will continue Creon Paroxysmal atrial fibrillation Peripheral vascular disease Multiple lower extremity stents and bypass procedures Psoriasis Sepsis Thyroid nodule Intervention: This participant was very receptive. Provided appropriate educational handouts. Discussed the following topics: Completed intake assessment. Discussed barriers to care. Reviewed use and safety of insulin pump Discussed basal rate and administration of bolus Reviewed using 60g CHO for a 5u bolus at meals Created SMART goals for patient self-care and success. Goals: Use insulin pump Follow-up: MARYLU BROOKS follow-up tomorrow with [employer] and in office for Dm education in 5 days. Yue Davis RDN, [facility] Certified Diabetes Care and Early Interventionist P: [phone] Thank you for this referral
== END ==
PROVIDERS: Family Provider Nurse Practitioner Family; PCP Family Medicine; Referring Provider Family Medicine
DX: E11.9 Type 2 diabetes mellitus without complications (principal); Z79.4 Long term (current) use of insulin; Z71.3 Dietary counseling and surveillance
CPT/HCPCS: G0108

== ENCOUNTER 2023-12-16 14:39 | Emergency (ER) | payer OTHER, SELFPAY ==
[2023-11-21 15:10] VITALS: BMI 27.8
[2023-12-16 14:43] VITALS: BP 146/74; PULSE 84; RESP 28; TEMP 36.6; O2SAT 99; BMI 26.5
--- NOTE | 2023-12-16 14:47 | EKG_ITS ---
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
--- NOTE | 2023-12-16 14:47 | DI.RAD.S_ITS ---
PROCEDURE: XR CHEST 1V INDICATIONS: chest pain TECHNIQUE: One view of the chest was acquired. COMPARISON: [facility], CR, XR CHEST 1V, 11/01/2023, 14:28. FINDINGS: Surgical changes and devices: None. Lungs and pleura: Lungs are clear. No pleural effusions or pneumothorax. Low lung volumes. Mediastinum: Mediastinal contours appear normal. Heart size is normal. Bones and chest wall: No suspicious bony lesions. Overlying soft tissues appear unremarkable. IMPRESSION: No acute cardiopulmonary abnormality is seen. Dictated by: Feng Jimenez M.D. on 12/16/2023 at 14:35 Approved by: Feng Jimenez M.D. on 12/16/2023 at 14:43
--- NOTE | 2023-12-16 15:13 | ED_ITS ---
HPI - Chest Pain General Chief Complaint: Chest Pain Stated Complaint: Chest and stomach pain Time Seen by Provider: 12/16/23 14:57 Source: patient Mode of arrival: Ambulatory Limitations: no limitations History of Present Illness HPI narrative: Patient is a 68-year-old male. Has a history of chronic pancreatitis, diabetes, atrial fibrillation, he was here for evaluation of upper abdominal discomfort. Patient states that it does feel somewhat like his prior episodes of chronic pancreatitis. Fairly sudden onset. However this does involve his chest. He took a nitro prior to arrival without any improvement. He also took multiple doses of his home pain medication without improvement. Also having nausea. Chills. No fevers. Related Data Home Medications Medication Instructions Recorded Confirmed clopidogrel 75 mg tablet (Plavix) 75 mg PO QAM ##0 04/15/08 12/14/23 acetaminophen 325 mg tablet (Pain 500 mg PO Q4HP PRN Pain, Mild 09/25/17 12/14/23 Relief (acetaminophen)) dabigatran etexilate 150 mg 150 mg PO BID 03/24/18 12/14/23 capsule (Pradaxa) lisinopril 2.5 mg tablet 2.5 mg PO QAM blood pressure 04/28/19 12/14/23 duloxetine 60 mg capsule,delayed 60 mg PO QAM 11/01/21 12/14/23 release (Cymbalta) ondansetron 8 mg disintegrating 8 mg PO PRN PRN nausea/vomiting 02/25/22 12/14/23 tablet morphine 15 mg tablet,extended 30 mg PO .HS 06/06/22 12/14/23 release (MS Contin) amlodipine 5 mg tablet 10 mg PO DAILY 01/19/23 12/14/23 rosuvastatin 10 mg tablet 40 mg PO DAILY 01/19/23 12/14/23 diphenhydramine HCl 12.5 mg/5 mL 50 mg PO Q6H PRN nausea and 06/01/23 12/14/23 oral elixir vomiting insulin glargine 10 units SUBCUT QAM 06/01/23 12/14/23 ipratropium-albuterol 3 ml inhalation 4XD PRN For 06/01/23 12/14/23 shortness of breath tadalafil 20 mg PO PRN PRN 1hr before sexual 06/01/23 12/14/23 activity pantoprazole 40 mg tablet,delayed 40 mg PO BID 06/06/23 12/14/23 release ezetimibe 10 mg tablet 10 mg PO DAILY 07/03/23 12/14/23 oxycodone 7.5 mg tablet,oral ONLY 5 mg PO Q4H PRN pain 11/21/23 12/14/23 (not for feeding tubes) metoprolol succinate 25 mg 25 mg PO BID 11/29/23 12/14/23 tablet,extended release 24 hr promethazine 25 mg rectal 25 mg OH Q6H PRN vomiting 11/29/23 12/14/23 suppository promethazine 25 mg tablet 25 mg PO Q4-6H PRN diarrhea 11/29/23 12/14/23 Previous Rx's Medication Instructions Recorded pyrusz-wykiqavu-fidgkmn 1 cap PO QID #120 caps 03/15/20 24,000-76,000-120,000 unit capsule,delayed rel (Creon) trazodone 50 mg tablet 50 mg PO BEDTIME PRN insomnia #30 03/03/22 tabs metoclopramide HCl 10 mg tablet 10 mg PO Q6H PRN nausea and 11/01/23 (Reglan) vomiting #20 tabs lorazepam 0.5 mg tablet 0.5 mg PO TID PRN nausea and 12/03/23 vomiting 14 days #30 tabs methylphenidate HCl 20 mg tablet 20 mg PO TID #90 tabs 12/03/23 nitroglycerin 0.3 mg sublingual See Rx Instructions .Route 12/03/23 tablet .COMPLEX #100 ea Allergies Allergy/AdvReac Type Severity Reaction Status Date / Time Iodine and Iodide Containing Allergy Severe Anaphylaxis Verified 12/16/23 14:46 Produc [IODINE AND IODIDE CONTAINING PRODUC] Sulfa (Sulfonamide Allergy Severe Anaphylaxis Verified 12/16/23 14:46 Antibiotics) [SULFA (SULFONAMIDE ANTIBIOTICS)] gabapentin AdvReac Intermediate Dizziness Verified 12/16/23 14:46 Xnodkfv-[id number]-NmS Reductase AdvReac Intermediate Verified 12/16/23 14:46 Inhibitor metformin AdvReac Mild Verified 12/16/23 14:46 Review of Systems Review of Systems ROS Unobtainable: All systems reviewed & are unremarkable except as noted in HPI and below Patient History Medical History Chronic low back pain Coronary artery disease Thyroid nodule Diabetes mellitus Atrial flutter with rapid ventricular response Sepsis Claudication in peripheral vascular disease History of cardioversion (03/07/21) Campylobacter enteritis Exocrine pancreatic insufficiency Acute dehydration Enteritis, enteropathogenic E. coli Paroxysmal atrial fibrillation Psoriasis Narcolepsy GERD (gastroesophageal reflux disease) Hyperlipidemia HTN (hypertension) Insulin dependent diabetes mellitus with complications Peripheral vascular disease Gastroenteritis Pancreatitis Atrial flutter with rapid ventricular response Surgical History History of epididymectomy Hx of biopsy History of femoropopliteal bypass H/O exploratory laparotomy Family History Father Colon cancer Mother Narcolepsy Grandmother Narcolepsy Social History household members: spouse Smoking Status: Former smoker alcohol intake: former Smoking Status: Former smoker alcohol intake frequency: holidays/special occasions only Substance Use Type: marijuana Exam Initial Vital Signs Initial Vital Signs: Vital Signs Temperature 98 F 12/16/23 14:43 Pulse Rate 84 12/16/23 14:43 Respiratory Rate 28 H 12/16/23 14:43 Blood Pressure 146/74 H 12/16/23 14:43 Pulse Oximetry 99 12/16/23 14:43 Oxygen Delivery Method Room Air 12/16/23 14:43 Const General: ill appearing HENMT Head: normal to inspection and normocephalic Resp Effort & Inspection: normal respiratory effort and tachypneic Auscultation: clear to auscultation bilaterally Cardio Rate: regular rate Rhythm: regular rhythm GI Inspection: normal to inspection Skin General: no rashes or lesions noted Neuro General: patient alert, patient awake, patient oriented x3 and moves all extremities Extrem General: normal to inspection and capillary refill normal Course Orders Ordered: ED Orders 12/16/23 14:47 XR chest 1V Stat EKG-12 Lead Stat 12/16/23 15:00 Complete Blood Count AUTO DIFF Stat Comprehensive Metabolic Panel Stat Lipase Stat Magnesium Stat NT-proBNP (BNP-Adult 18+) Stat PTT Partial Thromboplastin Shravan Stat Prothrombin Time INR Stat Troponin & CK Cardiac Panel Stat Discontinued Medications Aspirin (Aspirin 81 Mg Chew Tab) 324 mg PO NOW ONE Stop: 12/16/23 14:48 Last Admin: 12/16/23 15:36 Dose: Not Given Documented By: WILFRID Hydromorphone HCl (Hydromorphone 1 Mg Inj) 1 mg IV NOW ONE Stop: 12/16/23 15:15 Last Admin: 12/16/23 15:27 Dose: 1 mg Documented By: WILFRID Hydromorphone HCl (Hydromorphone 1 Mg Inj) 1 mg IV NOW ONE Stop: 12/16/23 15:38 Last Admin: 12/16/23 15:49 Dose: 1 mg Documented By: WILFRID Hydromorphone HCl (Hydromorphone 0.5 Mg Inj) 0.5 mg IV NOW ONE Stop: 12/16/23 16:35 Last Admin: 12/16/23 16:44 Dose: 0.5 mg Documented By: ASHLIE Metoclopramide HCl (Metoclopramide 10 Mg/2 Ml Inj) 10 mg IV NOW ONE Stop: 12/16/23 15:26 Last Admin: 12/16/23 15:31 Dose: 10 mg Documented By: WILFRID Ondansetron HCl (Ondansetron 4 Mg/2 Ml Inj) 4 mg IV NOW ONE Stop: 12/16/23 15:15 Last Admin: 12/16/23 15:27 Dose: Not Given Documented By: WILFRID Vital Signs Vital signs: Vital Signs - 8 hr 12/16/23 14:43 12/16/23 15:54 12/16/23 16:00 Temperature 98 F Pulse Rate 84 83 83 Respiratory Rate 28 H 22 31 H Blood Pressure 146/74 H Pulse Oximetry 99 98 95 Oxygen Delivery Method Room Air 12/16/23 16:30 12/16/23 17:00 Temperature Pulse Rate 88 86 Respiratory Rate 21 33 H Blood Pressure Pulse Oximetry 99 98 Oxygen Delivery Method Room Air MDM - Chest Pain Lab Data Attestation: I reviewed the patient's lab results. 12/16/23 15:00 12/16/23 15:00 Labs: Lab Results 12/16/23 Range/Units 15:00 WBC 9.0 (4.5-11.0) X10^3/uL RBC 4.80 (4.5-5.9) X10^6/uL Hgb 12.9 L (13.5-17.5) g/dL Hct 38.8 L (41-53) % MCV 80.9 (80-100) fL MCH 26.9 (26-34) PG MCHC 33.2 (30-36) % RDW 17.3 H (11.6-14.8) % Plt Count 320 (150-400) X10^3/uL Neut % (Auto) Not Reportable Lymph % (Auto) Not Reportable [place] % (Auto) Not Reportable Eos % (Auto) Not Reportable Baso % (Auto) Not Reportable Lymph # (Auto) Not Reportable [place] # (Auto) Not Reportable Baso # (Auto) Not Reportable Total Counted 100 Seg Neutrophils % 75.0 H (38-70) % Lymphocytes % (Manual) 10.0 L (25-45) % Monocytes % (Manual) 7.0 (2-11) % Eosinophils % (Manual) 7.0 H (2-4) % Basophils % (Manual) 1.0 (0-1) % Neutrophils # (Manual) 6750 H (5758-9495) /uL RBC Morphology See below Anisocytosis 1+ H PT 11.8 (9.4-12.5) SECONDS INR 1.0 (0.9-1.3) APTT 27 (25.1-36.5) SECONDS Sodium 136 L (137-145) mmol/L Potassium 4.8 (3.4-5.1) mmol/L Chloride 104 (98-107) mmol/L Carbon Dioxide 26 (22-32) mmol/L BUN 9 (9-20) mg/dL Creatinine 0.58 L (0.66-1.25) mg/dL Estimated GFR > 60 (>60) mL/min BUN/Creatinine Ratio 15.5 (6-22) Glucose 286 H (80-110) mg/dL Calcium 9.1 (8.4-10.2) mg/dL Magnesium 1.5 L (1.6-2.3) mg/dL Total Bilirubin 0.5 (0.2-1.3) mg/dL AST 22 (17-59) IU/L ALT 20 (<50) IU/L Alkaline Phosphatase 108 (38-126) U/L Total Creatine Kinase 65 (55-170) U/L Troponin I < 0.012 (0.01-0.034) ng/mL NT-Pro-B Natriuret Pep 61 (<125) pg/mL Total Protein 6.5 (6.3-8.2) g/dL Albumin 4.0 (3.5-5.0) g/dL Globulin 2.5 (1.7-4.1) g/dL Albumin/Globulin Ratio 1.6 (1.0-2.8) Lipase 76 (23-300) U/L Imaging Data Chest x-ray: Radiologist's Impression: PROCEDURE: XR CHEST 1V INDICATIONS: chest pain TECHNIQUE: One view of the chest was acquired. COMPARISON: [facility], , XR CHEST 1V, 11/01/2023, 14:28. FINDINGS: Surgical changes and devices: None. Lungs and pleura: Lungs are clear. No pleural effusions or pneumothorax. Low lung volumes. Mediastinum: Mediastinal contours appear normal. Heart size is normal. Bones and chest wall: No suspicious bony lesions. Overlying soft tissues appear unremarkable. IMPRESSION: No acute cardiopulmonary abnormality is seen. ECG Data Attestation: I personally reviewed and interpreted this ECG as follows: Interpretation: Sinus rhythm Ventricular rate of 83 Normal axis Normal QRS Normal QTC No ST T wave changes MDM Narrative Medical decision making narrative: Patient is well-known to myself. Chronic abdominal pain. History of chronic pancreatitis. Labs in the emergency department are relatively unremarkable. Lipase is unremarkable. No leukocytosis. Troponins negative. EKGs unremarkable. No fevers. Patient is reporting improvement of symptoms after medications here in the ER. He does have Reglan at home where he had he was as needed. He also has a pain management team. Patient states he was feeling well enough to go home. Discharge Plan Departure Patient Disposition: Home Clinical Impression: Abdominal pain Instructions: DI for Abdominal Pain-Adult Activity Restrictions/Additional Instructions: Recommend that you continue to take all of your medications as directed. Contact your primary care provider for a follow-up. Return to the emergency department for new or worsening symptoms. Prescriptions: No Action clopidogrel [Plavix] 75 mg Tablet 75 mg PO QAM Qty: 0 promethazine 25 mg tablet 25 mg PO Q4-6H PRN (Reason: diarrhea) promethazine 25 mg suppository 25 mg OH Q6H PRN (Reason: vomiting) metoprolol succinate 25 mg tablet extended release 24 hr 25 mg PO BID Creon 24,000-76,000 -120,000 unit capsule,delayed release(DR/EC) 1 cap PO QID Qty: 120 12RF Rx Instructions: administer with meals and/or snacks prn sliding scale. 1 capsule for every 600 calories morphine [MS Contin] 15 mg tablet extended release 30 mg PO .HS rosuvastatin 10 mg tablet 40 mg PO DAILY amlodipine 5 mg tablet 10 mg PO DAILY duloxetine [Cymbalta] 60 mg capsule,delayed release(DR/EC) 60 mg PO QAM ezetimibe 10 mg tablet 10 mg PO DAILY lorazepam 0.5 mg tablet 0.5 mg PO TID PRN (Reason: nausea and vomiting) 14 Days Qty: 30 0RF methylphenidate HCl 20 mg tablet 20 mg PO TID Qty: 90 0RF nitroglycerin 0.3 mg tablet, sublingual See Rx Instructions .ROUTE .COMPLEX Qty: 100 0RF Dose Instruction: PLACE 1 TABLET (0.3 MG TOTAL) UNDER THE TONGUE EVERY 5 (FIVE) MINUTES NEEDED FOR CHEST PAIN FOR UP TO 7 DAYS MAY REPEAT EVERY 5 MINUTES UP TO [address] DOS[address] Rx [address]ructions: [address] 1 TABLET (0.3 MG TOTAL) UNDER THE TONGUE EVERY 5 (FIVE) MINUTES NEEDED FOR CHEST PAIN FOR UP TO 7 DAYS MAY REPEAT EVERY 5 MINUTES UP TO 3 DOSES. acetaminophen [Pain Relief (acetaminophen)] 325 MG tablet 500 mg PO Q4HP PRN (Reason: Pain, Mild) dabigatran etexilate [Pradaxa] 150 mg Capsule 150 mg PO BID ondansetron 8 mg tablet,disintegrating 8 mg PO PRN PRN (Reason: nausea/vomiting) trazodone 50 mg Tablet 50 mg PO BEDTIME PRN (Reason: insomnia) Qty: 30 0RF Rx Instructions: can take 1/2 tab (25mg) if 50 is too strong ipratropium-albuterol inhaler 3 ml inhalation 4XD PRN (Reason: For shortness of breath) tadalafil 20 mg PO PRN PRN (Reason: 1hr before sexual activity) diphenhydramine HCl 12.5 mg/5 mL elixir 50 mg PO Q6H PRN (Reason: nausea and vomiting) insulin glargine 10 units SUBCUT QAM pantoprazole 40 mg Tablet,Delayed Release (Dr/Ec) 40 mg PO BID metoclopramide HCl [Reglan] 10 mg tablet 10 mg PO Q6H PRN (Reason: nausea and vomiting) Qty: 20 0RF oxycodone 7.5 mg tablet, oral only 5 mg PO Q4H PRN (Reason: pain) lisinopril 2.5 mg Tablet 2.5 mg PO QAM Referrals: Eric Huang MD [Primary Care Provider] - Stand Alone Forms: Patient Portal/API
[2023-12-16 15:17] LABS: Prothrombin Time 11.8 SECONDS (9.4-12.5)
[2023-12-16 15:19] LABS: Hematocrit 38.8 % (41-53); Hemoglobin 12.9 g/dL (13.5-17.5); Mean Corpuscular HGB Conc 33.2 % (30-36); Mean Corpuscular Hemoglobin 26.9 PG (26-34); Mean Corpuscular Volume 80.9 fL (80-100); Platelet Count 320 X10^3/uL (150-400); Red Cell Distribution Width 17.3 % (11.6-14.8)
[2023-12-16 15:20] LABS: PTT Partial Thromboplastin Tim 27 SECONDS (25.1-36.5)
[2023-12-16 15:21] LABS: Alanine Aminotransferase 20 IU/L (<50); Albumin Globulin Ratio 1.6 (1.0-2.8); Alkaline Phosphatase 108 U/L (38-126); Aspartate Aminotransferase 22 IU/L (17-59); BUN Creatinine Ratio 15.5 (6-22); Bilirubin Total 0.5 mg/dL (0.2-1.3); Blood Urea Nitrogen 9 mg/dL (9-20); Calcium 9.1 mg/dL (8.4-10.2); Carbon Dioxide 26 mmol/L (22-32); Chloride 104 mmol/L (98-107); Creatine Kinase 65 U/L (55-170); Estimated Glomerular Filt Rate > 60 mL/min (>60); Globulin 2.5 g/dL (1.7-4.1); Glucose 286 mg/dL (80-110); HEMOLYSIS < 15 (0-50); Lipase 76 U/L (23-300); Magnesium 1.5 mg/dL (1.6-2.3); Potassium 4.8 mmol/L (3.4-5.1); Sodium 136 mmol/L (137-145); Total Protein 6.5 g/dL (6.3-8.2)
[2023-12-16 15:24] LABS: Add Manual Diff / Slide Review YES
[2023-12-16] MEDS: HYDROMORPHONE 1 MG INJ IV ×2 (15:27→15:49)
[2023-12-16] MEDS: METOCLOPRAMIDE 10 MG/2 ML INJ IV (15:31)
[2023-12-16 15:33] LABS: NT-proBNP (BNP-Adult 18+) 61 pg/mL (<125); Troponin I < 0.012 ng/mL (0.01-0.034)
[2023-12-16 15:34] LABS: Anisocytosis 1+; Neutrophils Absolute Manual 6750 /uL (3000-5900); Total Cells Counted 100
[2023-12-16 15:54] VITALS: PULSE 83; RESP 22; O2SAT 98
[2023-12-16 16:00] VITALS: PULSE 83; RESP 31; O2SAT 95
[2023-12-16 16:30] VITALS: PULSE 88; RESP 21; O2SAT 99
[2023-12-16] MEDS: HYDROMORPHONE 0.5 MG INJ IV (16:44)
[2023-12-16 17:00] VITALS: PULSE 86; RESP 33; O2SAT 98
[2023-12-16 17:45] VITALS: BP 139/67; PULSE 86; RESP 16; TEMP 36.8; O2SAT 99
== END 2023-12-16 17:48 | disposition home or self-care (01) ==
PROVIDERS: Emergency Provider Emergency Medicine; Family Provider Nurse Practitioner Family; PCP Family Medicine
DX: R10.10 Upper abdominal pain, unspecified (principal); R07.9 Chest pain, unspecified; K86.1 Other chronic pancreatitis; Z79.899 Other long term (current) drug therapy
CPT/HCPCS: 36415; 71045; 80053; 82550; 83690; 83735; 83880; 84484; 85007; 85025; 85610; 85730; 93005; 96374; 96375; 96376; 99284; J1170; J2765

== ENCOUNTER → 2023-12-18 07:50 | Outpatient (CLI) | payer OTHER, SELFPAY ==
[2023-11-21 15:10] VITALS: BMI 27.8
--- NOTE | 2023-12-18 09:09 | DIAB.FU ---
Follow-up Diabetes Education Assessment Name: Jann Diehl (Alfredo) Date: 12/18/23 Time: 750-830a Dx: Insulin Dependent Diabetes Provider: Sal Fuentes presents today for DM visit for insulin pump education. We are accompanied by [employer] new accounts representative. Reports PMH of diabetes >25 years, attributes to exposure during service. Today he brought his supplies, for an infusion set change and CGM sensor change. Started infusion set change early yesterday on his own, though [employer] rep helped him troubleshoot this yesterday. Today, upon review of [facility], he has 75% time in range indicating improved glycemic management. Plans to see endo at [facility] today, Dr. Shirley. Questions answered regarding waterproof nature of pump, bolusing for pain days (30g if >250mg/dl). Review of nutrition practices with chronic pancreatitis and DM diagnosis. No changes to pump settings today. TDD: 45u (25u Lantus, 5u Lispro TID) Reduced dose: 45u x 0.75: 34u Total daily basal: 34 x 0.5: 17u Initial basal rate: 17u / 24 hours: 0.7u/hr I:C ratio: 450 / 34 (TDD): 13 grams per unit I:C = 1:15 Insulin sensitivity factor: 1800 / 34u (TDD); 53 mg/dl/1u Target ranges: 100-120 mg/dl Self-Monitoring Blood Glucose: Guardian Connect CGM Diabetes Medications: Pump therapy Pertinent Labs: HgA1c: 8.0% 02/2022 8.2% 03/2022 11.1% 07/2023 Past Medical History: (Last Reviewed 11/21/23 @ 14:59 by Brock Moreno MD) Acute dehydration Atrial flutter with rapid ventricular response Atrial flutter with rapid ventricular response Patient with recalcitrant Afib/RVR, history of similar. Likely exacerbated due to pneumonia/influenza, pancreatitis. Failed electrical cardioversion, dilt, amio. Has received Dig x 1. Campylobacter enteritis Chronic low back pain Claudication in peripheral vascular disease Coronary artery disease Diabetes mellitus Enteritis, enteropathogenic E. coli Exocrine pancreatic insufficiency Gastroenteritis GERD (gastroesophageal reflux disease) History of cardioversion (03/07/21) ED @ [facility] HTN (hypertension) Hyperlipidemia Insulin dependent diabetes mellitus with complications Narcolepsy Pancreatitis Will continue Creon Paroxysmal atrial fibrillation Peripheral vascular disease Multiple lower extremity stents and bypass procedures Psoriasis Sepsis Thyroid nodule Intervention: This participant was very receptive. Provided appropriate educational handouts. Discussed the following topics: Review of infusion set changes technique Review of CMG sensor changes technique Created SMART goals for patient self-care and success. Goals: Use insulin pump- met Discuss target range with endo today - new Follow-up: MARYLU BROOKS follow-up in 1 week Yue Davis RDN, [facility] Certified Diabetes Care and Cat Wagon Operator P: [phone] Thank you for this referral
== END ==
PROVIDERS: Family Provider Nurse Practitioner Family; PCP Family Medicine; Referring Provider Family Medicine
DX: E11.9 Type 2 diabetes mellitus without complications (principal); Z71.3 Dietary counseling and surveillance; Z96.41 Presence of insulin pump (external) (internal); Z45.89 Encounter for adjustment and management of other implanted devices; Z79.4 Long term (current) use of insulin
CPT/HCPCS: G0108

== ENCOUNTER 2024-01-05 21:37 | Emergency (ER) | payer OTHER, SELFPAY ==
[2023-11-21 15:10] VITALS: BMI 27.8
[2024-01-05] VITALS (10 sets, daily range): BP systolic 113–151; BP diastolic 56–67; PULSE 79–83; RESP 16–34; TEMP 36.7; O2SAT 92–97; BMI 27.2
--- NOTE | 2024-01-05 22:10 | DI.RAD.S_ITS ---
PROCEDURE: XR CHEST 1V INDICATIONS: chest pain TECHNIQUE: One view of the chest was acquired. COMPARISON: [facility], CR, XR CHEST 1V, 12/16/2023, 14:52. FINDINGS: Surgical changes and devices: None. Lungs and pleura: Basilar platelike atelectasis. Remainder of the lungs and pleural spaces are clear. Mediastinum: Mediastinal contours appear normal. Heart size is normal. Bones and chest wall: No suspicious bony lesions. Overlying soft tissues appear unremarkable. IMPRESSION: Left basilar platelike atelectasis Approved by: Zeb Garcia M.D. on 01/05/2024 at 21:55
--- NOTE | 2024-01-05 22:11 | EKG_ITS ---
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
[2024-01-05 22:22] LABS: Prothrombin Time 11.8 SECONDS (9.4-12.5)
[2024-01-05 22:23] LABS: Add Manual Diff / Slide Review NO; Basophils Absolute Auto 100 /uL (0-100); Basophils Percent Auto 1.2 % (0-2); Eosinophils Absolute Auto 600 /uL (0-450); Hematocrit 39.8 % (41-53); Hemoglobin 13.2 g/dL (13.5-17.5); Lymphocytes Absolute Auto 1700 /uL (1100-4500); Lymphocytes Percent Auto 16.7 % (25-40); Mean Corpuscular HGB Conc 33.1 % (30-36); Mean Corpuscular Hemoglobin 26.8 PG (26-34); Monocytes Absolute Auto 900 /uL (0-900); Monocytes Percent Auto 8.6 % (3-14); Neutrophils Absolute Auto 6900 /uL (1500-7000); Neutrophils Percent Auto 67.5 % (50-75); Platelet Count 337 X10^3/uL (150-400); Red Blood Cell Count 4.91 X10^6/uL (4.5-5.9); White Blood Cell Count 10.3 X10^3/uL (4.5-11.0)
[2024-01-05 22:24] LABS: PTT Partial Thromboplastin Tim 36 SECONDS (25.1-36.5)
[2024-01-05 22:27] LABS: Alanine Aminotransferase 17 IU/L (<50); Albumin 4.5 g/dL (3.5-5.0); Albumin Globulin Ratio 1.5 (1.0-2.8); Alkaline Phosphatase 92 U/L (38-126); Aspartate Aminotransferase 21 IU/L (17-59); BUN Creatinine Ratio 26.8 (6-22); Bilirubin Total 0.4 mg/dL (0.2-1.3); Blood Urea Nitrogen 19 mg/dL (9-20); Calcium 9.4 mg/dL (8.4-10.2); Carbon Dioxide 27 mmol/L (22-32); Chloride 101 mmol/L (98-107); Creatine Kinase 104 U/L (55-170); Estimated Glomerular Filt Rate > 60 mL/min (>60); Globulin 3.1 g/dL (1.7-4.1); Glucose 155 mg/dL (80-110); HEMOLYSIS 28 (0-50); Lipase 254 U/L (23-300); Magnesium 1.8 mg/dL (1.6-2.3); Potassium 4.3 mmol/L (3.4-5.1); Sodium 136 mmol/L (137-145); Total Protein 7.6 g/dL (6.3-8.2)
[2024-01-05 22:39] LABS: NT-proBNP (BNP-Adult 18+) 69 pg/mL (<125); Troponin I < 0.012 ng/mL (0.01-0.034)
[2024-01-05] MEDS: HYDROMORPHONE 1 MG INJ IV ×2 (22:52→23:49)
--- NOTE | 2024-01-05 23:28 | ED_ITS ---
HPI - Abdominal Pain General Chief Complaint: Abdominal Pain Stated Complaint: Pancreas flare Time Seen by Provider: 01/05/24 22:04 Source: patient Mode of arrival: Ambulatory History of Present Illness HPI narrative: Patient 68-year-old male history of chronic pancreatitis prior small-bowel obstruction diabetes atrial fibrillation currently off anticoagulation for thyroid biopsy presents today for abdominal pain. He reports he had a peanut butter and jelly sandwich and suddenly had severe abdominal pain. This feels similar to his prior episodes of pancreatitis. He feels nauseous has not yet vomited. He has no chest pain. He does have an incisional hernia which is reducible. He was doing well and at work until he ate. He was seen evaluated here on December 15 for something similar he had blood work but no imaging and felt better with medications Related Data Home Medications Medication Instructions Recorded Confirmed clopidogrel 75 mg tablet (Plavix) 75 mg PO QAM ##0 04/15/08 12/28/23 acetaminophen 325 mg tablet (Pain 500 mg PO Q4HP PRN Pain, Mild 09/25/17 12/28/23 Relief (acetaminophen)) dabigatran etexilate 150 mg 150 mg PO BID 03/24/18 12/28/23 capsule (Pradaxa) lisinopril 2.5 mg tablet 2.5 mg PO QAM blood pressure 04/28/19 12/28/23 duloxetine 60 mg capsule,delayed 60 mg PO QAM 11/01/21 12/28/23 release (Cymbalta) ondansetron 8 mg disintegrating 8 mg PO PRN PRN nausea/vomiting 02/25/22 12/28/23 tablet morphine 15 mg tablet,extended 30 mg PO .HS 06/06/22 12/28/23 release (MS Contin) amlodipine 5 mg tablet 10 mg PO DAILY 01/19/23 12/28/23 rosuvastatin 10 mg tablet 40 mg PO DAILY 01/19/23 12/28/23 diphenhydramine HCl 12.5 mg/5 mL 50 mg PO Q6H PRN nausea and 06/01/23 12/28/23 oral elixir vomiting insulin glargine 10 units SUBCUT QAM 06/01/23 12/28/23 ipratropium-albuterol 3 ml inhalation 4XD PRN For 06/01/23 12/28/23 shortness of breath tadalafil 20 mg PO PRN PRN 1hr before sexual 06/01/23 12/28/23 activity pantoprazole 40 mg tablet,delayed 40 mg PO BID 06/06/23 12/28/23 release ezetimibe 10 mg tablet 10 mg PO DAILY 07/03/23 12/28/23 oxycodone 7.5 mg tablet,oral ONLY 5 mg PO Q4H PRN pain 11/21/23 12/28/23 (not for feeding tubes) metoprolol succinate 25 mg 25 mg PO BID 11/29/23 12/28/23 tablet,extended release 24 hr promethazine 25 mg rectal 25 mg OR Q6H PRN vomiting 11/29/23 12/28/23 suppository promethazine 25 mg tablet 25 mg PO Q4-6H PRN diarrhea 11/29/23 12/28/23 Previous Rx's Medication Instructions Recorded kzelzt-rsllyphc-rheiknc 1 cap PO QID #120 caps 03/15/20 24,000-76,000-120,000 unit capsule,delayed rel (Creon) trazodone 50 mg tablet 50 mg PO BEDTIME PRN insomnia #30 03/03/22 tabs metoclopramide HCl 10 mg tablet 10 mg PO Q6H PRN nausea and 11/01/23 (Reglan) vomiting #20 tabs methylphenidate HCl 20 mg tablet 20 mg PO TID #90 tabs 12/03/23 nitroglycerin 0.3 mg sublingual See Rx Instructions .Route 12/03/23 tablet .COMPLEX #100 ea Allergies Allergy/AdvReac Type Severity Reaction Status Date / Time Iodine and Iodide Containing Allergy Severe Anaphylaxis Verified 12/28/23 15:50 Produc [IODINE AND IODIDE CONTAINING PRODUC] Sulfa (Sulfonamide Allergy Severe Anaphylaxis Verified 12/28/23 15:50 Antibiotics) [SULFA (SULFONAMIDE ANTIBIOTICS)] gabapentin AdvReac Intermediate Dizziness Verified 12/28/23 15:50 Bttlpiu-FOI-ObS Reductase AdvReac Intermediate Verified 12/28/23 15:50 Inhibitor metformin AdvReac Mild Verified 12/28/23 15:50 Patient History Medical History Chronic low back pain Coronary artery disease Thyroid nodule Diabetes mellitus Atrial flutter with rapid ventricular response Sepsis Claudication in peripheral vascular disease History of cardioversion (03/07/21) Campylobacter enteritis Exocrine pancreatic insufficiency Acute dehydration Enteritis, enteropathogenic E. coli Paroxysmal atrial fibrillation Psoriasis Narcolepsy GERD (gastroesophageal reflux disease) Hyperlipidemia HTN (hypertension) Insulin dependent diabetes mellitus with complications Peripheral vascular disease Gastroenteritis Pancreatitis Atrial flutter with rapid ventricular response Surgical History History of epididymectomy Hx of biopsy History of femoropopliteal bypass H/O exploratory laparotomy Family History Father Colon cancer Mother Narcolepsy Grandmother Narcolepsy Social History household members: spouse Smoking Status: Former smoker alcohol intake: former Smoking Status: Former smoker alcohol intake frequency: holidays/special occasions only Substance Use Type: marijuana Exam Initial Vital Signs Initial Vital Signs: Vital Signs Blood Pressure 151/67 H 01/05/24 21:58 GENERAL: Alert 68-year-old male appears uncomfortable and in pain HEENT: Head atraumatic,EOMI, pupils reactive, face symmetric, moist mucous membranes CARDIOVASCULAR: Regular rate and rhythm without murmurs, rubs or gallops. RESPIRATORY: Breath sounds equal bilaterally, no wheezes rales or rhonchi. ABDOMEN: Soft, reducible incisional hernia abdomen soft nontender, patient reports burning behind the hernia. No significant distention normal bowel sounds EXTREMITIES: Normal range of motion, no clubbing or edema. Neurovascularly intact NEUROLOGICAL: Alert and oriented x4.Normal gait and speech. SKIN: Warm, dry, no laceration, no petechiae, no rashes or lesions. Course Orders Ordered: ED Orders 01/05/24 22:06 Complete Blood Count AUTO DIFF Stat Comprehensive Metabolic Panel Stat Lipase Stat Magnesium Stat NT-proBNP (BNP-Adult 18+) Stat PTT Partial Thromboplastin Shravan Stat Prothrombin Time INR Stat Troponin & CK Cardiac Panel Stat 01/05/24 22:10 XR chest 1V Stat EKG-12 Lead Stat Discontinued Medications Acetaminophen (Acetaminophen 325 Mg Tablet) 975 mg PO NOW ONE Stop: 01/05/24 23:52 Last Admin: 01/05/24 23:53 Dose: 975 mg Documented By: GARLAND Aspirin (Aspirin 81 Mg Chew Tab) 324 mg PO NOW ONE Stop: 01/05/24 22:11 Hydromorphone HCl (Hydromorphone 1 Mg Inj) 1 mg IV NOW ONE Stop: 01/05/24 22:50 Last Admin: 01/05/24 22:52 Dose: 1 mg Documented By: YOLANDE Hydromorphone HCl (Hydromorphone 1 Mg Inj) 1 mg IV NOW ONE Stop: 01/05/24 23:35 Last Admin: 01/05/24 23:49 Dose: 1 mg Documented By: GARLAND Metoclopramide HCl (Metoclopramide 10 Mg/2 Ml Inj) 10 mg IV NOW ONE Stop: 01/05/24 23:35 Last Admin: 01/05/24 23:49 Dose: 10 mg Documented By: GARLAND Ondansetron HCl (Ondansetron 4 Mg/2 Ml Inj) 4 mg IV NOW ONE Stop: 01/05/24 22:12 Vital Signs Vital signs: Vital Signs - 8 hr 01/05/24 21:58 01/05/24 21:59 01/05/24 22:00 Temperature Pulse Rate 83 80 Respiratory Rate 34 H 23 Blood Pressure 151/67 H Pulse Oximetry 96 97 Oxygen Delivery Method Room Air Room Air 01/05/24 22:03 01/05/24 22:30 01/05/24 22:30 Temperature 98.1 F Pulse Rate 80 79 Respiratory Rate 16 26 H Blood Pressure 151/67 H 120/65 Pulse Oximetry 95 97 Oxygen Delivery Method Room Air Room Air 01/05/24 23:00 01/05/24 23:00 01/05/24 23:30 Temperature Pulse Rate 79 80 Respiratory Rate 20 26 H Blood Pressure 113/56 L Pulse Oximetry 92 95 Oxygen Delivery Method 01/05/24 23:31 01/05/24 23:31 01/05/24 23:55 Temperature Pulse Rate 81 81 Respiratory Rate 33 H 27 H Blood Pressure 126/61 Pulse Oximetry 95 93 Oxygen Delivery Method 01/05/24 23:56 01/05/24 23:56 01/06/24 00:00 Temperature Pulse Rate 80 Respiratory Rate 20 Blood Pressure 115/59 L 107/58 L Pulse Oximetry 94 Oxygen Delivery Method 01/06/24 00:00 01/06/24 00:30 01/06/24 00:30 Temperature Pulse Rate 79 70 Respiratory Rate 20 19 Blood Pressure 101/54 L Pulse Oximetry 94 94 Oxygen Delivery Method MDM - Abdominal Pain Lab Data 01/05/24 22:06 01/05/24 22:06 Labs: Lab Results 01/05/24 Range/Units 22:06 WBC 10.3 (4.5-11.0) X10^3/uL RBC 4.91 (4.5-5.9) X10^6/uL Hgb 13.2 L (13.5-17.5) g/dL Hct 39.8 L (41-53) % MCV 81.0 (80-100) fL MCH 26.8 (26-34) PG MCHC 33.1 (30-36) % RDW 17.0 H (11.6-14.8) % Plt Count 337 (150-400) X10^3/uL Neut % (Auto) 67.5 (50-75) % Lymph % (Auto) 16.7 L (25-40) % [place] % (Auto) 8.6 (3-14) % Eos % (Auto) 6.0 H (2-4) % Baso % (Auto) 1.2 (0-2) % Neut # (Auto) 6900 (1749-3102) /uL Lymph # (Auto) 1700 (8037-9474) /uL [place] # (Auto) 900 (0-900) /uL Eos # (Auto) 600 H (0-450) /uL Baso # (Auto) 100 (0-100) /uL PT 11.8 (9.4-12.5) SECONDS INR 1.0 (0.9-1.3) APTT 36 (25.1-36.5) SECONDS Sodium 136 L (137-145) mmol/L Potassium 4.3 (3.4-5.1) mmol/L Chloride 101 (98-107) mmol/L Carbon Dioxide 27 (22-32) mmol/L BUN 19 (9-20) mg/dL Creatinine 0.71 (0.66-1.25) mg/dL Estimated GFR > 60 (>60) mL/min BUN/Creatinine Ratio 26.8 H (6-22) Glucose 155 H (80-110) mg/dL Calcium 9.4 (8.4-10.2) mg/dL Magnesium 1.8 (1.6-2.3) mg/dL Total Bilirubin 0.4 (0.2-1.3) mg/dL AST 21 (17-59) IU/L ALT 17 (<50) IU/L Alkaline Phosphatase 92 (38-126) U/L Total Creatine Kinase 104 (55-170) U/L Troponin I < 0.012 (0.01-0.034) ng/mL NT-Pro-B Natriuret Pep 69 (<125) pg/mL Total Protein 7.6 (6.3-8.2) g/dL Albumin 4.5 (3.5-5.0) g/dL Globulin 3.1 (1.7-4.1) g/dL Albumin/Globulin Ratio 1.5 (1.0-2.8) Lipase 254 (23-300) U/L Point of care testing: Point of Care Testing Glucose POC 179 ECG Data Attestation: I personally reviewed and interpreted this ECG as follows: Prior ECG tracings: available for review Interpretation: Normal sinus rhythm rate 79 OR interval 132 QRS [address] changes no T- wave inversions MDM Narrative Medical decision making narrative: Patient 60-year-old male with history of chronic ongoing abdominal pain chronic pancreatitis prior bowel obstructions presenting today with sudden onset abdominal pain. Reports he was doing well he is actually at work and works here at the [employer] when he ate peanut butter jelly sandwich and had instant pain. He was dry heaving felt nauseous no actual vomiting. He is supposed to be on anticoagulation for atrial fibrillation however due to new diagnosis of thyroid cancer he is off anticoagulation for surgery preparedness in 3 days. However he currently has no chest pain and he has in a sinus rhythm EKG shows no signs of ischemia Blood work has been reviewed and within normal limits troponin negative creatinine within normal limits. Patient is given anti nausea medication and pain medication Patient reexamined pain significantly improved after Dilaudid nausea improved he tolerating fluids. There is no indication for IV fluids this time. He suddenly felt better feels ready able to go home. At this time I do not think she needs repeat imaging. This feels like his previous attacks. He has had multiple CTs within the last 6 weeks Discharge Plan Departure Patient Disposition: Home Clinical Impression: Abdominal pain Activity Restrictions/Additional Instructions: Good luck on Sunday be sending him all the good vibes!! Take your meds Follow-up Return as needed Prescriptions: No Action clopidogrel [Plavix] 75 mg Tablet 75 mg PO QAM Qty: 0 promethazine 25 mg tablet 25 mg PO Q4-6H PRN (Reason: diarrhea) promethazine 25 mg suppository 25 mg OR Q6H PRN (Reason: vomiting) metoprolol succinate 25 mg tablet extended release 24 hr 25 mg PO BID Creon 24,000-76,000 -120,000 unit capsule,delayed release(DR/EC) 1 cap PO QID Qty: 120 12RF Rx Instructions: administer with meals and/or snacks prn sliding scale. 1 capsule for every 600 calories morphine [MS Contin] 15 mg tablet extended release 30 mg PO .HS rosuvastatin 10 mg tablet 40 mg PO DAILY amlodipine 5 mg tablet 10 mg PO DAILY duloxetine [Cymbalta] 60 mg capsule,delayed release(DR/EC) 60 mg PO QAM ezetimibe 10 mg tablet 10 mg PO DAILY methylphenidate HCl 20 mg tablet 20 mg PO TID Qty: 90 0RF nitroglycerin 0.3 mg tablet, sublingual See Rx Instructions .ROUTE .COMPLEX Qty: 100 0RF Dose Instruction: PLACE 1 TABLET (0.3 MG TOTAL) UNDER THE TONGUE EVERY 5 (FIVE) MINUTES NEEDED FOR CHEST PAIN FOR UP TO 7 DAYS MAY REPEAT EVERY 5 MINUTES UP TO [address] DOS[address] Rx [address]ructions: PL[address] 1 TABLET (0.3 MG TOTAL) UNDER THE TONGUE EVERY 5 (FIVE) MINUTES NEEDED FOR CHEST PAIN FOR UP TO 7 DAYS MAY REPEAT EVERY 5 MINUTES UP TO 3 DOSES. acetaminophen [Pain Relief (acetaminophen)] 325 MG tablet 500 mg PO Q4HP PRN (Reason: Pain, Mild) dabigatran etexilate [Pradaxa] 150 mg Capsule 150 mg PO BID ondansetron 8 mg tablet,disintegrating 8 mg PO PRN PRN (Reason: nausea/vomiting) trazodone 50 mg Tablet 50 mg PO BEDTIME PRN (Reason: insomnia) Qty: 30 0RF Rx Instructions: can take 1/2 tab (25mg) if 50 is too strong ipratropium-albuterol inhaler 3 ml inhalation 4XD PRN (Reason: For shortness of breath) tadalafil 20 mg PO PRN PRN (Reason: 1hr before sexual activity) diphenhydramine HCl 12.5 mg/5 mL elixir 50 mg PO Q6H PRN (Reason: nausea and vomiting) insulin glargine 10 units SUBCUT QAM pantoprazole 40 mg Tablet,Delayed Release (Dr/Ec) 40 mg PO BID metoclopramide HCl [Reglan] 10 mg tablet 10 mg PO Q6H PRN (Reason: nausea and vomiting) Qty: 20 0RF oxycodone 7.5 mg tablet, oral only 5 mg PO Q4H PRN (Reason: pain) lisinopril 2.5 mg Tablet 2.5 mg PO QAM Referrals: Eric Huang MD [Primary Care Provider] - Stand Alone Forms: Patient Portal/API
[2024-01-05] MEDS: METOCLOPRAMIDE 10 MG/2 ML INJ IV (23:49)
[2024-01-05] MEDS: ACETAMINOPHEN 325 MG TABLET 975 MG PO (23:53)
[2024-01-06] VITALS: BP 107/58; PULSE 79; RESP 20; O2SAT 94
[2024-01-06 00:30] VITALS: BP 101/54; PULSE 70; RESP 19; O2SAT 94
--- NOTE | 2024-01-06 00:35 | PC.NURSE ---
Pt states I'm in relief and keeping my drink down. I'd like to go home'. Provider informed.
== END 2024-01-06 01:22 | disposition home or self-care (01) ==
PROVIDERS: Emergency Provider Emergency Medicine; Family Provider Nurse Practitioner Family; PCP Family Medicine
DX: R10.9 Unspecified abdominal pain (principal); R11.0 Nausea; Z79.899 Other long term (current) drug therapy
CPT/HCPCS: 36415; 71045; 80053; 82550; 82962; 83690; 83735; 83880; 84484; 85025; 85610; 85730; 93005; 93010; 96374; 96375; 96376; 99284; J1171; J2765

== ENCOUNTER 2024-01-21 10:40 | Inpatient (IN) | payer OTHER, SELFPAY ==
[2023-11-21 15:10] VITALS: BMI 27.8
[2024-01-21] VITALS (30 sets, daily range): BP systolic 133–173; BP diastolic 66–105; PULSE 103–120; RESP 14–32; TEMP 36–37.6; O2SAT 91–99; BMI 25.8
--- NOTE | 2024-01-21 11:21 | PC.NURSE ---
verbal order given by Dr. Andres for 1mg dilaudid IV and 4 mg zofran IV.
--- NOTE | 2024-01-21 11:27 | EKG_ITS ---
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
[2024-01-21] MEDS: METOCLOPRAMIDE 10 MG/2 ML INJ IV (11:32)
[2024-01-21] MEDS: HYDROMORPHONE 1 MG INJ IV ×4 (11:32→18:14)
[2024-01-21 11:46] LABS: Add Manual Diff / Slide Review NO; Basophils Absolute Auto 100 /uL (0-100); Basophils Percent Auto 0.6 % (0-2); Eosinophils Absolute Auto 500 /uL (0-450); Eosinophils Percent Auto 2.4 % (2-4); Hematocrit 33.7 % (41-53); Hemoglobin 10.9 g/dL (13.5-17.5); Lymphocytes Absolute Auto 700 /uL (1100-4500); Lymphocytes Percent Auto 3.2 % (25-40); Mean Corpuscular HGB Conc 32.4 % (30-36); Mean Corpuscular Hemoglobin 26.1 PG (26-34); Mean Corpuscular Volume 80.7 fL (80-100); Monocytes Absolute Auto 800 /uL (0-900); Monocytes Percent Auto 3.6 % (3-14); Neutrophils Absolute Auto 20500 /uL (1500-7000); Neutrophils Percent Auto 90.2 % (50-75); Platelet Count 623 X10^3/uL (150-400); Red Blood Cell Count 4.17 X10^6/uL (4.5-5.9); Red Cell Distribution Width 16.4 % (11.6-14.8); White Blood Cell Count 22.7 X10^3/uL (4.5-11.0)
[2024-01-21 11:52] LABS: Alanine Aminotransferase 12 IU/L (<50); Albumin 3.9 g/dL (3.5-5.0); Albumin Globulin Ratio 1.4 (1.0-2.8); Alkaline Phosphatase 126 U/L (38-126); Aspartate Aminotransferase 22 IU/L (17-59); BUN Creatinine Ratio 21.2 (6-22); Bilirubin Total 0.5 mg/dL (0.2-1.3); Blood Urea Nitrogen 14 mg/dL (9-20); Carbon Dioxide 26 mmol/L (22-32); Chloride 94 mmol/L (98-107); Estimated Glomerular Filt Rate > 60 mL/min (>60); Globulin 2.7 g/dL (1.7-4.1); Glucose 274 mg/dL (80-110); HEMOLYSIS < 15 (0-50); Lipase 32 U/L (23-300); Potassium 4.7 mmol/L (3.4-5.1); Sodium 130 mmol/L (137-145); Total Protein 6.6 g/dL (6.3-8.2)
--- NOTE | 2024-01-21 11:52 | ED.NAVMDI ---
HPI - Nausea/Vomiting/Diarrhea General Chief complaint: Nausea/Vomiting/Diarrhea Stated complaint: Can't keep his meds down Time Seen by Provider: 01/21/24 11:31 Source: patient Mode of arrival: Ambulatory Limitations: no limitations History of Present Illness HPI Narrative: 69-year-old male with a history of chronic pancreatitis, prior small-bowel obstruction, diabetes, atrial fibrillation recently diagnosed with medullary cancer who had surgery of the thyroid, neck removal of portion of his jugular. Patient states that this was on the 07 of January patient states no fevers but he has been sweaty, he states he started having nausea and vomiting in the past day has not been able to keep anything down today. He states because that he has had increased pain as he has not been able to keep down his pain medications. Patient states hurts in his neck and chest and he describes as all over. States he has been stooling regularly, states he has been taking senna grinding it up and taking that to help with bowel movements. States he has been urinating normally. States no increase in swelling of his neck chest or extremities. He states it has been slightly decreased since his surgery. He does have a drain in place which he states he has had a very small amount of serosanguineous drainage last emptied this morning in the shower. Denies shortness of breath. Patient [facility] been instructed that no options for chemo or radiation but they are sending testing to see if he would be a potential candidate for trial for medullary thyroid carcinoma. Patient does have a history of allergies to iodine states he was usually pretreated with Benadryl and Solu-Medrol without issue. Related Data Home Medications Medication Instructions Recorded Confirmed clopidogrel 75 mg tablet (Plavix) 75 mg PO QAM ##0 04/15/08 01/22/24 acetaminophen 325 mg tablet (Pain 500 mg PO Q4HP PRN Pain, Mild 09/25/17 01/22/24 Relief (acetaminophen)) dabigatran etexilate 150 mg 150 mg PO BID 03/24/18 01/22/24 capsule (Pradaxa) lisinopril 2.5 mg tablet 2.5 mg PO QAM blood pressure 04/28/19 01/22/24 duloxetine 60 mg capsule,delayed 120 mg PO QAM 11/01/21 01/22/24 release (Cymbalta) ondansetron 8 mg disintegrating 8 mg PO PRN PRN nausea/vomiting 02/25/22 01/22/24 tablet morphine 15 mg tablet,extended 30 mg PO .HS 06/06/22 01/22/24 release (MS Contin) amlodipine 5 mg tablet 10 mg PO DAILY 01/19/23 01/22/24 rosuvastatin 10 mg tablet 40 mg PO DAILY 01/19/23 01/22/24 diphenhydramine HCl 12.5 mg/5 mL 50 mg PO Q6H PRN nausea and 06/01/23 01/22/24 oral elixir vomiting insulin glargine 10 units SUBCUT QAM 06/01/23 01/22/24 ipratropium-albuterol 3 ml inhalation 4XD PRN For 06/01/23 01/22/24 shortness of breath tadalafil 20 mg PO PRN PRN 1hr before sexual 06/01/23 01/22/24 activity pantoprazole 40 mg tablet,delayed 40 mg PO BID 06/06/23 01/22/24 release ezetimibe 10 mg tablet 10 mg PO DAILY 07/03/23 01/22/24 oxycodone 7.5 mg tablet,oral ONLY 5 mg PO Q4H PRN pain 11/21/23 01/22/24 (not for feeding tubes) metoprolol succinate 25 mg 25 mg PO BID 11/29/23 01/22/24 tablet,extended release 24 hr promethazine 25 mg rectal 25 mg SC Q6H PRN vomiting 11/29/23 01/22/24 suppository promethazine 25 mg tablet 25 mg PO Q4-6H PRN diarrhea 11/29/23 01/22/24 Previous Rx's Medication Instructions Recorded [id number] 1 cap PO QID #120 caps 03/15/20 24,000-76,000-120,000 unit capsule,delayed rel (Creon) trazodone 50 mg tablet 50 mg PO BEDTIME PRN insomnia #30 03/03/22 tabs metoclopramide HCl 10 mg tablet 10 mg PO Q6H PRN nausea and 11/01/23 (Reglan) vomiting #20 tabs methylphenidate HCl 20 mg tablet 20 mg PO TID #90 tabs 12/03/23 nitroglycerin 0.3 mg sublingual See Rx Instructions .Route 12/03/23 tablet .COMPLEX #100 ea Allergies Allergy/AdvReac Type Severity Reaction Status Date / Time Iodine and Iodide Containing Allergy Severe Blister Verified 01/21/24 16:34 Produc [IODINE AND IODIDE CONTAINING PRODUC] Sulfa (Sulfonamide Allergy Severe Anaphylaxis Verified 12/28/23 15:50 Antibiotics) [SULFA (SULFONAMIDE ANTIBIOTICS)] gabapentin AdvReac Intermediate Dizziness Verified 12/28/23 15:50 [id number] Reductase AdvReac Intermediate Verified 12/28/23 15:50 Inhibitor metformin AdvReac Mild Verified 12/28/23 15:50 Review of Systems Review of Systems ROS Unobtainable: All systems reviewed & are unremarkable except as noted in HPI and below Patient History Medical History Chronic low back pain Coronary artery disease Thyroid nodule Diabetes mellitus Atrial flutter with rapid ventricular response Sepsis Claudication in peripheral vascular disease History of cardioversion (03/07/21) Campylobacter enteritis Exocrine pancreatic insufficiency Acute dehydration Enteritis, enteropathogenic E. coli Paroxysmal atrial fibrillation Psoriasis Narcolepsy GERD (gastroesophageal reflux disease) Hyperlipidemia HTN (hypertension) Insulin dependent diabetes mellitus with complications Peripheral vascular disease Gastroenteritis Pancreatitis Atrial flutter with rapid ventricular response Surgical History History of epididymectomy Hx of biopsy History of femoropopliteal bypass H/O exploratory laparotomy Family History Father Colon cancer Mother Narcolepsy Grandmother Narcolepsy Social History household members: spouse Smoking Status: Former smoker alcohol intake: former Smoking Status: Former smoker alcohol intake frequency: holidays/special occasions only Substance Use Type: marijuana Exam Narrative Exam Narrative: GEN: Male, alert and oriented x 3, patient appears to be in mild distress. Patient is slightly diaphoretic on his back HEENT: Atraumatic, pupils are equal round reactive to light, extraocular movements are intact, nares are clear, TMs are clear with no fluid, there is no conjunctival pallor. Throat is clear without any exudates, erythema, tonsillar enlargement or uvular deviation, patient does have swelling of the generalized neck and chest. He has a drain at the left SCM region draining a small amount of serosanguineous fluid there is about 5-10 mL total in the drain and tubing. There is a slight amount of erythema just around the entrance of the drain. No other erythema or skin changes noted across the chest or neck. Patient is slightly hoarse, able to swallow secretions no stridor. He states his voice has been changed since the surgery with no new changes. HEART: Tachycardic but regular rate and rhythm without murmur, clicks, rubs. LUNGS:Lungs clear to auscultation, no wheezes, rales, crackles, chest moves symmetrically, slightly tachypneic. ABD:bowel sounds normal, soft, non-tender, no guarding, rebound, rigidity, no masses noted, no hepatosplenomegaly :No CVA tenderness MSCL: Non-tender, no muscle atrophy, muscles strength 5/5 upper and lower extremities, full range of motion. NEURO:CN 2-12 intact, sensation normal Initial Vital Signs Initial Vital Signs: Vital Signs Temperature 98 F 01/21/24 10:55 Pulse Rate 120 H 01/21/24 10:55 Respiratory Rate 18 01/21/24 10:55 Blood Pressure 161/73 H 01/21/24 10:55 Pulse Oximetry 97 01/21/24 10:55 Oxygen Delivery Method Room Air 01/21/24 10:55 Course Orders Ordered: ED Orders 01/24/24 05:00 Complete Blood Count AUTO DIFF DAILY Comprehensive Metabolic Panel DAILY Acetaminophen (Acetaminophen 325 Mg Tablet) 650 mg PO Q6H PRN PRN Reason: Fever/Mild Pain (1-3) Lipase/Protease/Amylase (Lipase/Protease/Amylase 08/10/23 Cap) 5 cap PO QID [facility] Last Admin: 01/23/24 16:28 Dose: 5 cap Documented By: Admin: 01/23/24 11:57 Dose: 5 cap Documented By: Admin: 01/23/24 08:26 Dose: 5 cap Documented By: Admin: 01/22/24 21:12 Dose: Not Given Documented By: Admin: 01/22/24 17:20 Dose: 5 cap Documented By: CLL Calcium Carbonate (Calcium Carbonate 500 Mg Tab) 1,000 mg PO BID [facility] Last Admin: 01/23/24 08:26 Dose: 1,000 mg Documented By: Admin: 01/22/24 20:21 Dose: 1,000 mg Documented By: Admin: 01/22/24 12:11 Dose: 1,000 mg Documented By: IVONE Clopidogrel Bisulfate (Clopidogrel 75 Mg Tablet) 75 mg PO DAILY [facility] Last Admin: 01/23/24 08:26 Dose: 75 mg Documented By: Admin: 01/22/24 09:48 Dose: 75 mg Documented By: CLL Dabigatran (Dabigatran 75 Mg Capsule) 150 mg PO BID [facility] Last Admin: 01/23/24 08:26 Dose: 150 mg Documented By: Admin: 01/22/24 20:20 Dose: 150 mg Documented By: Admin: 01/22/24 09:48 Dose: 150 mg Documented By: Admin: 01/21/24 20:42 Dose: 150 mg Documented By: ANUSHA Diclofenac Sodium (Diclofenac 1% Gel 100 Gm) 1 applic TOP QID [facility] Last Admin: 01/23/24 15:43 Dose: 1 applic Documented By: Admin: 01/23/24 11:56 Dose: 1 applic Documented By: Admin: 01/23/24 02:26 Dose: 1 applic Documented By: Admin: 01/22/24 20:59 Dose: 1 applic Documented By: Admin: 01/22/24 17:21 Dose: 1 applic Documented By: Admin: 01/22/24 13:48 Dose: 1 applic Documented By: IVONE Diphenhydramine HCl (Diphenhydramine 25 Mg Tablet) 50 mg PO Q6HR PRN PRN Reason: Insomnia Last Admin: 01/23/24 09:36 Dose: 50 mg Documented By: DEVYN Duloxetine HCl (Duloxetine 30 Mg Capsule) 120 mg PO DAILY [facility] Last Admin: 01/23/24 15:36 Dose: 120 mg Documented By: LUDWIG Heparin Sodium (Porcine) (Heparin Flush (Cl/Picc/Mid-Line) 50 Unit/5 Ml Syringe) 50 unit IV PRN PRN PRN Reason: Flush Last Admin: 01/23/24 09:36 Dose: 50 unit Documented By: Admin: 01/23/24 08:24 Dose: 50 unit Documented By: Admin: 01/23/24 00:32 Dose: 50 unit Documented By: ANUSHA Hydromorphone HCl (Hydromorphone 2 Mg Tablet) 6 mg PO Q3H PRN PRN Reason: Pain, Severe (7-10) Last Admin: 01/23/24 15:37 Dose: 6 mg Documented By: LUDWIG Piperacillin Sod/Tazobactam (Sod 3.375 gm/ Sodium Chloride) 100 mls @ 25 mls/hr IV Q8H KATHY Last Infusion: 01/23/24 16:18 Dose: Infused Documented By: Admin: 01/23/24 11:55 Dose: 25 mls/hr Documented By: Infusion: 01/23/24 08:27 Dose: Infused Documented By: Admin: 01/23/24 03:37 Dose: 25 mls/hr Documented By: Infusion: 01/23/24 00:03 Dose: Infused Documented By: Admin: 01/22/24 20:03 Dose: 25 mls/hr Documented By: Infusion: 01/22/24 17:29 Dose: Infused Documented By: Admin: 01/22/24 12:13 Dose: 25 mls/hr Documented By: Infusion: 01/22/24 09:49 Dose: Infused Documented By: Admin: 01/22/24 04:52 Dose: 25 mls/hr Documented By: Infusion: 01/22/24 01:05 Dose: Infused Documented By: Admin: 01/21/24 21:05 Dose: 25 mls/hr Documented By: ANUSHA Dextrose (D10w) 100 mls @ 999 mls/hr IV PRN PRN PRN Reason: Hypoglycemia Insulin Glargine (Insulin Glargine 100 Unit/Ml 3ml Pen) 10 unit SUBCUT BEDTIME KATHY Last Admin: 01/22/24 21:06 Dose: 10 unit Documented By: ANUSHA Co-signed By: ARSENIO Insulin Human Lispro (Insulin Lispro 100 Unit/Ml 3ml Vial) 0 unit SUBCUT ACHS KATHY; Protocol Last Admin: 01/23/24 17:05 Dose: 2 unit Documented By: ESV Co-signed By: SW Admin: 01/23/24 11:56 Dose: 2 unit Documented By: DEVYN Co-signed By: EV Admin: 01/23/24 08:05 Dose: 1 unit Documented By: DEVYN Co-signed By: PASCALE Admin: 01/22/24 21:05 Dose: 2 unit Documented By: ANUSHA Co-signed By: CT Admin: 01/22/24 17:23 Dose: 1 unit Documented By: IVONE Co-signed By: UNIQUE Admin: 01/22/24 12:13 Dose: 2 unit Documented By: IVONE Co-signed By: UNIQUE Admin: 01/22/24 09:49 Dose: 2 unit Documented By: IVONE Co-signed By: UNIQUE Admin: 01/21/24 20:51 Dose: 4 unit Documented By: ANUSHA Co-signed By: LEVY Lorazepam (Lorazepam 2 Mg/Ml Inj) 0.5 mg IV Q4HR PRN PRN Reason: Nausea And Vomiting Last Admin: 01/21/24 20:48 Dose: 0.5 mg Documented By: ANUSHA Lorazepam (Lorazepam 1 Mg Tablet) 1 mg PO BEDTIME PRN PRN Reason: Sleep Metoclopramide HCl (Metoclopramide 10 Mg/2 Ml Inj) 10 mg IV Q6HR PRN PRN Reason: Nausea And Vomiting Morphine Sulfate (Morphine Er 15 Mg Tablet) 15 mg PO BID KATHY Last Admin: 01/23/24 08:30 Dose: 15 mg Documented By: Admin: 01/22/24 20:20 Dose: 15 mg Documented By: Admin: 01/22/24 09:47 Dose: 15 mg Documented By: Admin: 01/21/24 20:32 Dose: 15 mg Documented By: ANUSHA Naloxone HCl (Naloxone 0.4 Mg/Ml Vial) 0.2 mg IV Q2MIN PRN PRN Reason: Opiate Reversal Ondansetron HCl (Ondansetron 4 Mg/2 Ml Inj) 4 mg IV Q8HR PRN PRN Reason: Nausea And Vomiting Last Admin: 01/23/24 08:19 Dose: 4 mg Documented By: DEVYN Oxycodone HCl (Oxycodone Ir 5 Mg Tablet) 5 mg PO Q3HR PRN PRN Reason: Pain, Moderate (4-6) Last Admin: 01/22/24 23:04 Dose: 5 mg Documented By: ANUSHA Oxycodone HCl (Oxycodone Ir 10 Mg Tablet) 10 mg PO Q3HR PRN PRN Reason: Pain, Severe (7-10) Last Admin: 01/23/24 13:38 Dose: 10 mg Documented By: Admin: 01/23/24 09:50 Dose: 10 mg Documented By: Admin: 01/23/24 06:31 Dose: 10 mg Documented By: Admin: 01/23/24 01:44 Dose: 10 mg Documented By: SHANE Pantoprazole Sodium (Pantoprazole Dr 40 Mg Tablet) 40 mg PO 0700,2100 [facility] Last Admin: 01/23/24 06:32 Dose: 40 mg Documented By: Admin: 01/22/24 20:24 Dose: 40 mg Documented By: Admin: 01/22/24 06:17 Dose: 40 mg Documented By: Admin: 01/21/24 21:00 Dose: 40 mg Documented By: ANUSHA Sennosides (Sennosides 8.6 Mg Tablet) 8.6 mg PO BID PRN PRN Reason: Constipation Last Admin: 01/23/24 16:28 Dose: 8.6 mg Documented By: LUDWIG Trazodone HCl (Trazodone 50 Mg Tablet) 50 mg PO BEDTIME [facility] Last Admin: 01/22/24 20:21 Dose: 50 mg Documented By: Admin: 01/21/24 20:43 Dose: 50 mg Documented By: ANUSHA Discontinued Medications Albuterol/Ipratropium (Albuterol/Ipratropium 3 Ml Ampul) 3 ml INH NOW ONE Stop: 01/21/24 16:35 Last Admin: 01/21/24 16:40 Dose: 3 ml Documented By: ALLAN Diphenhydramine HCl (Diphenhydramine 50 Mg/Ml Vial) 50 mg IV NOW ONE Stop: 01/21/24 12:04 Last Admin: 01/21/24 12:16 Dose: 50 mg Documented By: KENISHA Enoxaparin Sodium (Enoxaparin 40 Mg/0.4 Ml Syringe) 40 mg SUBCUT DAILY [facility] Last Admin: 01/22/24 09:49 Dose: 40 mg Documented By: IVONE Hydromorphone HCl (Hydromorphone 1 Mg Inj) 1 mg IV NOW ONE Stop: 01/21/24 11:07 Last Admin: 01/21/24 11:32 Dose: 1 mg Documented By: KENISHA Hydromorphone HCl (Hydromorphone 1 Mg Inj) 1 mg IV NOW ONE Stop: 01/21/24 13:41 Last Admin: 01/21/24 13:45 Dose: 1 mg Documented By: DEVYN(2) Hydromorphone HCl (Hydromorphone 1 Mg Inj) 1 mg IV NOW ONE Stop: 01/21/24 15:04 Last Admin: 01/21/24 15:09 Dose: 1 mg Documented By: DEVYN(2) Hydromorphone HCl (Hydromorphone 1 Mg Inj) 1 mg IV NOW ONE Stop: 01/21/24 17:31 Last Admin: 01/21/24 18:14 Dose: 1 mg Documented By: ROSY Hydromorphone HCl (Hydromorphone 2 Mg Tablet) 2 mg PO Q1H PRN PRN Reason: Pain, Severe (7-10) Last Admin: 01/22/24 14:27 Dose: 2 mg Documented By: Admin: 01/22/24 09:48 Dose: 2 mg Documented By: Admin: 01/22/24 04:53 Dose: 2 mg Documented By: Admin: 01/21/24 20:42 Dose: 2 mg Documented By: ANUSHA Hydromorphone HCl (Hydromorphone 2 Mg Tablet) 4 mg PO Q3H PRN PRN Reason: Pain, Severe (7-10) Last Admin: 01/23/24 11:54 Dose: 4 mg Documented By: Admin: 01/23/24 08:19 Dose: 4 mg Documented By: Admin: 01/23/24 03:39 Dose: 4 mg Documented By: Admin: 01/22/24 21:00 Dose: 4 mg Documented By: Admin: 01/22/24 16:09 Dose: 4 mg Documented By: IVONE Sodium Chloride (Normal Saline 0.9%) 500 mls @ 1,000 mls/hr IV BOLUS ONE Stop: 01/21/24 12:05 Last Infusion: 01/21/24 13:03 Dose: Infused Documented By: Admin: 01/21/24 12:16 Dose: 1,000 mls/hr Documented By: KENISHA Piperacillin Sod/Tazobactam (Sod 4.5 gm/ Sodium Chloride) 100 mls @ 200 mls/hr IV NOW ONE Stop: 01/21/24 12:04 Last Infusion: 01/21/24 13:43 Dose: Infused Documented By: DEVYN(2) Admin: 01/21/24 12:48 Dose: 200 mls/hr Documented By: KENISHA Sodium Chloride (Normal Saline 0.9%) 500 mls @ 1,000 mls/hr IV BOLUS ONE Stop: 01/21/24 12:32 Last Infusion: 01/21/24 13:42 Dose: Infused Documented By: SB(2) Admin: 01/21/24 12:48 Dose: 1,000 mls/hr Documented By: KENISHA Calcium Gluconate 4.65 meq/ (Sodium Chloride) 60 mls @ 180 mls/hr IV NOW ONE Stop: 01/21/24 12:23 Last Infusion: 01/21/24 13:04 Dose: Infused Documented By: Admin: 01/21/24 12:16 Dose: 180 mls/hr Documented By: KENISHA Vancomycin HCl (Vancomycin) 1,250 mg in 250 mls @ 250 mls/hr IV NOW ONE Stop: 01/21/24 13:44 Last Infusion: 01/21/24 15:09 Dose: Infused Documented By: SB(2) Admin: 01/21/24 13:46 Dose: 250 mls/hr Documented By: DEVYN(2) Sodium Chloride (Normal Saline 0.9%) 1,000 mls @ 1,000 mls/hr IV BOLUS ONE Stop: 01/21/24 15:48 Last Infusion: 01/21/24 16:17 Dose: Infused Documented By: SB(2) Admin: 01/21/24 15:10 Dose: 1,000 mls/hr Documented By: DEVYN(2) Calcium Gluconate 4.65 meq/ (Sodium Chloride) 60 mls @ 180 mls/hr IV NOW ONE Stop: 01/21/24 17:20 Last Infusion: 01/21/24 17:56 Dose: Infused Documented By: SB(2) Admin: 01/21/24 17:24 Dose: 180 mls/hr Documented By: SB(2) Calcium Gluconate 4.65 meq/ (Sodium Chloride) 60 mls @ 180 mls/hr IV NOW ONE Stop: 01/22/24 00:01 Last Admin: 01/22/24 01:30 Dose: 180 mls/hr Documented By: ANUSHA Calcium Gluconate 9.3 meq/ (Sodium Chloride) 70 mls @ 140 mls/hr IV NOW ONE Stop: 01/22/24 07:17 Last Admin: 01/22/24 07:10 Dose: 140 mls/hr Documented By: ANUSHA Calcium Gluconate 9.3 meq/ (Sodium Chloride) 70 mls @ 140 mls/hr IV NOW ONE Stop: 01/22/24 11:59 Last Admin: 01/22/24 12:06 Dose: 140 mls/hr Documented By: IVONE Calcium Gluconate 9.3 meq/ (Sodium Chloride) 70 mls @ 140 mls/hr IV NOW ONE Stop: 01/23/24 08:23 Last Admin: 01/23/24 08:50 Dose: 140 mls/hr Documented By: DEVYN Lorazepam (Lorazepam 2 Mg/Ml Inj) 0.5 mg IV NOW ONE Stop: 01/21/24 12:39 Last Admin: 01/21/24 12:44 Dose: 0.5 mg Documented By: KENISHA Magnesium Chloride (Magnesium Chloride 64 Mg Tablet) 128 mg PO NOW ONE Stop: 01/22/24 11:41 Last Admin: 01/22/24 12:04 Dose: 128 mg Documented By: IVONE Methylprednisolone (Methylprednisolone 125 Mg/2 Ml Vial) 125 mg IV NOW ONE Stop: 01/21/24 12:04 Last Admin: 01/21/24 12:16 Dose: 125 mg Documented By: KENISHA Metoclopramide HCl (Metoclopramide 10 Mg/2 Ml Inj) 10 mg IV NOW ONE Stop: 01/21/24 11:30 Last Admin: 01/21/24 11:32 Dose: 10 mg Documented By: KENISHA Ondansetron HCl (Ondansetron 4 Mg/2 Ml Inj) 4 mg IV NOW PRN PRN Reason: Nausea And Vomiting Ondansetron HCl (Ondansetron 4 Mg Odt) 4 mg PO NOW PRN PRN Reason: Nausea And Vomiting Vital Signs Vital signs: Vital Signs - 8 hr 01/21/24 10:55 01/21/24 11:12 01/21/24 11:30 Temperature 98 F Pulse Rate 120 H 112 H Respiratory Rate 18 32 H Blood Pressure 161/73 H 158/75 H Pulse Oximetry 97 94 Oxygen Delivery Method Room Air Oxygen Flow Rate Fraction of Inspired Oxygen 01/21/24 11:30 01/21/24 12:00 01/21/24 12:00 Temperature Pulse Rate 110 H 112 H Respiratory Rate 22 29 H Blood Pressure 148/81 H Pulse Oximetry 94 91 Oxygen Delivery Method Oxygen Flow Rate Fraction of Inspired Oxygen 01/21/24 12:30 01/21/24 12:30 01/21/24 13:00 Temperature Pulse Rate 111 H 109 H Respiratory Rate 15 28 H Blood Pressure 154/77 H Pulse Oximetry 95 91 Oxygen Delivery Method Oxygen Flow Rate Fraction of Inspired Oxygen 01/21/24 13:00 01/21/24 13:18 01/21/24 13:18 Temperature 99.7 F H Pulse Rate 112 H Respiratory Rate Blood Pressure 171/85 H 151/68 H Pulse Oximetry 93 Oxygen Delivery Method Room Air Oxygen Flow Rate Fraction of Inspired Oxygen 01/21/24 13:29 01/21/24 13:30 01/21/24 13:30 Temperature Pulse Rate 107 H Respiratory Rate 14 19 Blood Pressure 150/66 H Pulse Oximetry 94 97 Oxygen Delivery Method Nasal Cannula Nasal Cannula Oxygen Flow Rate 1 1 Fraction of Inspired Oxygen 01/21/24 14:00 01/21/24 14:04 01/21/24 14:04 Temperature 99.2 F Pulse Rate 109 H 109 H Respiratory Rate Blood Pressure 133/105 H Pulse Oximetry 98 98 Oxygen Delivery Method Nasal Cannula Oxygen Flow Rate 1 Fraction of Inspired Oxygen 01/21/24 14:30 01/21/24 14:30 01/21/24 15:00 Temperature Pulse Rate 119 H Respiratory Rate Blood Pressure 166/93 H 158/70 H Pulse Oximetry 97 Oxygen Delivery Method Nasal Cannula Oxygen Flow Rate 1 Fraction of Inspired Oxygen 01/21/24 15:00 01/21/24 15:30 01/21/24 15:30 Temperature Pulse Rate 107 H 103 H Respiratory Rate 15 Blood Pressure 152/68 H Pulse Oximetry 92 96 Oxygen Delivery Method Nasal Cannula Nasal Cannula Oxygen Flow Rate 1 1 Fraction of Inspired Oxygen 01/21/24 15:44 01/21/24 15:44 01/21/24 16:00 Temperature Pulse Rate 107 H 104 H Respiratory Rate 22 Blood Pressure 153/70 H Pulse Oximetry 98 97 Oxygen Delivery Method Oxygen Flow Rate Fraction of Inspired Oxygen 01/21/24 16:16 01/21/24 16:16 01/21/24 16:30 Temperature Pulse Rate 105 H Respiratory Rate Blood Pressure 173/74 H 155/68 H Pulse Oximetry 95 Oxygen Delivery Method Nasal Cannula Oxygen Flow Rate 1 Fraction of Inspired Oxygen 01/21/24 16:30 01/21/24 16:40 01/21/24 17:00 Temperature Pulse Rate 104 H 104 H 104 H Respiratory Rate 15 22 14 Blood Pressure 155/68 H Pulse Oximetry 98 99 96 Oxygen Delivery Method Nasal Cannula Nasal Cannula Nasal Cannula Oxygen Flow Rate 1 1 1 Fraction of Inspired Oxygen Nausea/Vomiting/Diarrhea Lab Data 01/23/24 04:10 01/23/24 04:10 Labs: Lab Results 01/21/24 01/21/24 01/21/24 Range/Units 11:20 16:24 16:26 WBC 22.7 H (4.5-11.0) X10^3/uL RBC 4.17 L (4.5-5.9) X10^6/uL Hgb 10.9 L (13.5-17.5) g/dL Hct 33.7 L (41-53) % MCV 80.7 (80-100) fL MCH 26.1 (26-34) PG MCHC 32.4 (30-36) % RDW 16.4 H (11.6-14.8) % Plt Count 623 H (150-400) X10^3/uL Neut % (Auto) 90.2 H (50-75) % Lymph % (Auto) 3.2 L (25-40) % Heard % (Auto) 3.6 (3-14) % Eos % (Auto) 2.4 (2-4) % Baso % (Auto) 0.6 (0-2) % Neut # (Auto) 38410 H (9212-7707) /uL Lymph # (Auto) 700 L (5312-1489) /uL Heard # (Auto) 800 (0-900) /uL Eos # (Auto) 500 H (0-450) /uL Baso # (Auto) 100 (0-100) /uL Sodium 130 L (137-145) mmol/L Potassium 4.7 (3.4-5.1) mmol/L Chloride 94 L (98-107) mmol/L Carbon Dioxide 26 (22-32) mmol/L BUN 14 (9-20) mg/dL Creatinine 0.66 (0.66-1.25) mg/dL Estimated GFR > 60 (>60) mL/min BUN/Creatinine Ratio 21.2 (6-22) Glucose 274 H (80-110) mg/dL Lactate 1.4 (0.7-2.1) mmol/L Calcium 6.1 L* 5.3 L* (8.4-10.2) mg/dL Phosphorus 4.9 H (2.3-3.7) mg/dL Total Bilirubin 0.5 (0.2-1.3) mg/dL AST 22 (17-59) IU/L ALT 12 (<50) IU/L Alkaline Phosphatase 126 (38-126) U/L Total Creatine Kinase 161 (55-170) U/L Troponin I < 0.012 (0.01-0.034) ng/mL NT-Pro-B Natriuret Pep 51 (<125) pg/mL Total Protein 6.6 (6.3-8.2) g/dL Albumin 3.9 (3.5-5.0) g/dL Globulin 2.7 (1.7-4.1) g/dL Albumin/Globulin Ratio 1.4 (1.0-2.8) Lipase 32 (23-300) U/L Procalcitonin 3.34 H (<0.5) ng/mL Urine Dip Bedside Urine Glucose Negative Bedside Urine Bilirubin - Negative Bedside Urine Ketone - Negative Urine Specific [place] 1.005 Bedside Urine Occult Blood - Negative Bedside Urine pH 7.0 Bedside Urine Protein - Negative Bedside Urine Urobilinogen - Negative Bedside Urine Nitrite - Negative Bedside Urine Leukocytes - Negative Esterase Imaging Data Chest x-ray: Radiologist's Impression: [address] [address] XRay Report Signed Patient: Jann Diehl MR#: [id number] : 1955 Acct:[id number] Age/Sex: 68 / M Date of Service: 01/05/24 Loc: ED Accession Number: [id number] Procedure: XR chest 1V Ordering Provider: Marisabel Murillo D.O. PROCEDURE: XR CHEST 1V INDICATIONS: chest pain TECHNIQUE: One view of the chest was acquired. COMPARISON: [facility], CR, XR CHEST 1V, 12/16/2023, 14:52. FINDINGS: Surgical changes and devices: None. Lungs and pleura: Basilar platelike atelectasis. Remainder of the lungs and pleural spaces are clear. Mediastinum: Mediastinal contours appear normal. Heart size is normal. Bones and chest wall: No suspicious bony lesions. Overlying soft tissues appear unremarkable. IMPRESSION: Left basilar platelike atelectasis Approved by: Zeb Garcia M.D. on 01/05/2024 at 21:55 MDM Narrative Medical decision making narrative: White count of 22 hemoglobin of 10.9 platelets [place] 623[place] [address]. Sodium 130, potassium 4.7 chloride 94 CO2 of 26 BUN 14 creatinine 0.66 glucose of 274, lactate 1.4 with a calcium of 6.1 patient had replacement, bilirubin 0.5, AST 22 ALT 12 alk-phos of 126 total CK is 161. Lipase is 32. Troponin is negative and BNP is 51. Procalcitonin is 3.34 Chest x-ray shows left basilar platelike atelectasis remaining spaces are clear. EKG shows sinus tach with a rate of 111 SC 126 QRS of [address] chest as well as soft tissue neck with contrast to evaluate for PE, fluid collections. CT soft tissue neck shows extensive postoperative changes including thyroidectomy and removal of left jugular vein left-sided postoperative drain seen areas of poorly defined fluid seen within the neck yet without focal defined fluid collection seen to suggest a postoperative abscess. CT of the chest shows no PE developing pneumonia left lower lobe consider aspiration, recent right thyroid surgery diffuse lower neck edema question lower neck adenopathy. Patient received fluids,, calcium, antibiotics, pain medication as well as antiemetics. Patient's EKG does show prolonged QT and he 20 mg of Zofran although some of that was vomited up earlier today. Patient received replacement of calcium, IV antibiotics including Zosyn and vancomycin for broad-spectrum coverage. Patient did receive Benadryl and Solu-Medrol as pretreatment prior to CT imaging. Received a L bolus, had improvement of heart rate but still tachycardic received additional fluids. Goal for sepsis fluids but there has been shortages secondary to national shortage of saline and LR. So did not receive a 30 cc/kilos bolus initially. Spoke with hospitalist Dr. Roy about admission for sepsis, pneumonia status post thyroid surgery, patient has a little bit of fluid but no obvious fluid collections suspect main source maybe from his chest. Does request that we add a parathyroid on, phos and asked for CT abdomen pelvis as patient has had a tubular structure in his abdomen in the past he came in with vomiting and sepsis type changes. We will obtain these but patient most likely admit here. We will contact back after these are resulted. Spoke with patient, patient is still quite diaphoretic no fevers here in the department tachycardia has not improved, he was recorded little bit of O2 but some of the seems to be more related to his pain medications. Reviewed all findings so far. Patient states he is DNR/DNI. Reviewed plan for repeat imaging, patient had pretreatment earlier 3.5hours prior to repeat imaging. Spoke with Dr. Roy, reviewed CT findings of abdomen pelvis. Calcium did trend down words was given additional dose of calcium here in the department. He asked if we can reach out for PICC line placement as patient will require repeated draws. If in-house is PICC is not available to call the PICC service to have 1 placed. Accepts for inpatient admission. Critical Care Time Critical Care Time Critical Care Time: Yes Total Critical Care Time: 45 Attestation: The high probability of a clinically significant, sudden or life threatening deterioration of the cardiac and pulmonary system(s) required my full and direct attention, intervention and personal management. The aggregate critical care time was [--] minutes. This time is in addition to time spent performing reported procedures but includes the following: [x] Data Review and interpretation [x] Patient assessment and monitoring of vital signs [x] Documentation [x] Medication orders and management Discharge Plan Departure Patient Disposition: Admitted As Inpatient Clinical Impression: Hypocalcemia, Pneumonia, S/P thyroid surgery, Sepsis Admit Date/Time: 01/21/24 17:44 Admit Provider: Brian Roy
[2024-01-21 11:59] LABS: Calcium 6.1 mg/dL (8.4-10.2)
--- NOTE | 2024-01-21 12:03 | DI.CT.S_ITS ---
PROCEDURE: CT SOFT TISSUE NECK W CON INDICATIONS: vomiting elevated wbc, tachy recent sx medullary thyroid cancer TECHNIQUE: After the administration of intravenous contrast, 3.0 mm axial sections acquired from the sella to the aortic arch. Additional oblique axial 3.0 mm sections acquired through the pharynx. 3 mm thick coronal and sagittal reformats were generated. For radiation dose reduction, the following was used: automated exposure control. COMPARISON: Merged With [facility], CT, CT ANGIO CHEST PE PROTOCOL, 01/21/2024, 13:01. FINDINGS: Image quality: There is artifact associated with the metallic hardware. Artifact from the metallic hardware is reduced by metal reconstruction algorithm. Lymph nodes: No enlarged lymph nodes seen throughout the neck. Vessels: Visualized vasculature appears patent. The left jugular vein has been resected. Neck spaces: Recent postoperative change of the neck can be seen, with generalized inflammatory change and postoperative clips. Soft tissue gas is also seen. There is a left-sided postoperative drain seen, deep to the sternocleidomastoid muscle. Generalized areas of poorly defined fluid can be seen within the neck. Glands: The parotid and submandibular glands appear normal. Thyroid gland has been resected. Miscellaneous: Visualized brain and orbits appear normal. Lung apices appear clear. Superficial soft tissues appear normal. Bones: No suspicious bony lesions. Visualized sinuses and mastoids appear unremarkable. Age-appropriate bony degenerative changes are seen. IMPRESSION: Extensive postoperative changes are seen, including thyroidectomy and removal of the left jugular vein. A left-sided postoperative drain is seen. Areas of poorly defined fluid can be seen within the neck, yet without a focal defined fluid collection seen to suggest a postoperative abscess. If clinically appropriate, please consider short-term follow-up. Dictated by: Arpit Esparza M.D. on 01/21/2024 at 12:42 Approved by: Arpit Esparza M.D. on 01/21/2024 at 12:45
--- NOTE | 2024-01-21 12:03 | DI.CT.S_ITS ---
PROCEDURE: CT ANGIO CHEST PE PROTOCOL INDICATIONS: vomiting, recent sx for medullary thyroid ca TECHNIQUE: After the administration of intravenous contrast, 2 mm thick sections acquired from the pulmonary apices to the posterior costophrenic angles. 3-dimensional maximum intensity projection (MIP) coronal and sagittal reformats were then acquired through the thorax. For radiation dose reduction, the following was used: automated exposure control, adjustment of mA and/or kV according to patient size. COMPARISON: [facility], US, US THYROID, 09/13/2023, 14:56. [facility], CT, CT SOFT TISSUE NECK W CON, 01/21/2024, 13:01. [facility], CT, CT ANGIO CHEST PE PROTOCOL, 05/31/2023, 19:42. FINDINGS: Image quality: Diagnostic. Pulmonary arteries: Pulmonary arteries are normal in size, and demonstrate no intraluminal filling defects to suggest central pulmonary embolism. Lower Neck: Lower neck edema and possible adenopathy. Thyroid: Sequelae of recent right thyroid surgery. Extensive neck clips. Axillae: No enlarged lymph nodes. Chest Wall: Unremarkable. Bones: Unremarkable. Lungs and Pleura: No pneumothorax or pleural effusions. Subtle left basilar peribronchial ground-glass opacities and developing areas of subtle confluent consolidation. Appearance suggest possible aspiration pneumonia in the right lung base. Heart: Heart size is normal. No pericardial effusion. Thoracic Vessels: No aortic aneurysm. Mediastinum and Moon: No enlarged lymph nodes. Esophagus: No wall thickening. No hiatal hernia. Upper Abdomen: Cirrhosis, remote cholecystectomy. IMPRESSION: 1. No acute pulmonary emboli. 2. Developing pneumonia, left lower lobe, consider aspiration pneumonia. 3. Recent right thyroid bed surgery. Diffuse lower neck edema. Question lower neck adenopathy. Please refer to a separate report describing CT neck findings. Dictated by: Timo Cooper M.D. on 01/21/2024 at 13:49 Approved by: Timo Cooper M.D. on 01/21/2024 at 13:55
[2024-01-21 12:10] LABS: Creatine Kinase 161 U/L (55-170); Lactate (Lactic Acid) 1.4 mmol/L (0.7-2.1)
[2024-01-21] MEDS: methylPREDNISolone 125 MG/2 ML VIAL IV (12:16)
[2024-01-21] MEDS: diphenhydrAMINE 50 MG/ML VIAL IV (12:16)
[2024-01-21] MEDS: SODIUM CHLORIDE 0.9% 500 ML 1000 ML IV ×2 (12:16→12:48)
[2024-01-21] MEDS: CALCIUM GLUCONATE 4.65 MEQ in SODIUM CHLORIDE 0.9% 50 ML 180 MEQ IV ×2 (12:16→17:24)
[2024-01-21 12:24] LABS: NT-proBNP (BNP-Adult 18+) 51 pg/mL (<125); Troponin I < 0.012 ng/mL (0.01-0.034)
[2024-01-21 12:28] LABS: Procalcitonin 3.34 ng/mL (<0.5)
[2024-01-21] MEDS: LORazepam 2 MG/ML INJ 0.5 MG IV ×2 (12:44→20:48)
[2024-01-21] MEDS: PIPERACILLIN/TAZO 4.5 GM in SODIUM CHLORIDE 0.9% 100 ML IV (12:48)
--- NOTE | 2024-01-21 13:28 | PC.NURSE ---
Pt oxygen decreases to 86% on RA. This RN places patient on 1L via NC. His oxygen saturation improves to 94%.
[2024-01-21] MEDS: VANCOMYCIN 1,250 MG/250 ML PIGGYBACK 250 MG IV (13:46)
[2024-01-21] MEDS: SODIUM CHLORIDE 0.9% 1,000 ML 1000 ML IV (15:10)
--- NOTE | 2024-01-21 15:14 | PC.NURSE ---
Addendum entered by Mirian Pal R.N. 01/21/24 15:15: New order for pain meds given and medicated per MAR. Original Note: Pt continues to sweat through sheets and has intermittent shaking. Provider Mank is made aware. New order for pain meds given.
--- NOTE | 2024-01-21 15:28 | DI.CT.S_ITS ---
PROCEDURE: CT ABDOMEN PELVIS W CON INDICATIONS: had prior tubular structure r/o RLQ TECHNIQUE: After the administration of intravenous contrast, axial sections acquired from the lung bases to the pubic symphysis. Coronal and sagittal reformats were performed. For radiation dose reduction, the following was used: automated exposure control, adjustment of mA and/or kV according to patient size. COMPARISON: [facility], CT, CT ABDOMEN PELVIS W CON, 11/26/2023, 11:50. FINDINGS: Image quality: Diagnostic. Lower Chest: Trace left lower lobe consolidation. Small hiatal hernia. ABDOMEN: Liver: Macro lobulated liver contour. Gallbladder: Absent. Biliary ducts: No intrahepatic or extrahepatic biliary dilation, accounting for a post cholecystectomy state. Pancreas: No ductal dilation. Spleen: Size is within normal limits. Adrenal Glands: No adrenal nodules. Kidneys and Ureters: No hydronephrosis. No solid mass. No complex renal cystic lesion which requires follow up. Stomach and Bowel: There is mesenteric fat stranding and the left upper quadrant, with associated normal appearing small bowel (series 2, image 68). Normal appendix. Additional regions of mesenteric edema with linear soft tissue in the right lower quadrant (series 2, image 117). Colonic diverticulosis without evidence of diverticulitis. Peritoneum: No abnormal intraperitoneal fluid. No free air. Ventral Wall: Wide-mouth ventral hernia containing a stored segment of nonobstructed small bowel. Abdominal Nodes: No retroperitoneal or mesenteric adenopathy by size criteria. Vessels: Aorta and inferior vena cava are normal in size. PELVIS: Pelvic Organs: Unremarkable. Bladder: No bladder wall thickening, accounting for underdistention. Pelvic Nodes: No enlarged lymph nodes. Miscellaneous: No inguinal hernias are seen. Bones: No aggressive osseous abnormality. Bilateral sacroiliitis. IMPRESSION: Mild mesenteric edema in the left upper quadrant and right lower quadrant, without abnormal bowel within this region. Additionally, there is linear soft tissue in the right lower quadrant, connecting 2 segments of bowel (series 2, image 118). Lastly, there is bilateral sacroiliitis. Together, findings are concerning for acute exacerbation of Crohn's disease, without evidence of prior fistula formation. Correlate with history and consider GI referral. Normal appendix. Colonic diverticulosis without evidence of diverticulitis. Ventral wall hernia containing a short segment of nonobstructed small bowel. Dictated by: Imtiaz Hammer M.D. on 01/21/2024 at 17:05 Approved by: Imtiaz Hammer M.D. on 01/21/2024 at 17:10
--- NOTE | 2024-01-21 16:29 | PC.NURSE ---
Pt returns from second CT. Reports being a little wheezy. He states he aspirates at times due to his pancreatitis and breathing treatments making him all right. LS are clear and equal in his anterior godfrey. Oxygen in 97% on 1L via NC. This RN asks what his reaction to contrast is and he states, skin peeling. Confirmed that he does NOT have anaphylaxis reaction to contrast. Provider Mckenna made aware of patient complaints, presentation, reactions, and request. Verbal order for breathing treatment given. RT Yovany made aware.
--- NOTE | 2024-01-21 16:37 | PC.NURSE ---
Requested stat records from [facility] in [place] where pt got their surgery @ 1631
[2024-01-21] MEDS: ALBUTEROL/IPRATROPIUM 3 ML AMPUL INH (16:40)
[2024-01-21 16:59] LABS: Calcium 5.3 mg/dL (8.4-10.2)
[2024-01-21 17:13] LABS: Phosphorous 4.9 mg/dL (2.3-3.7)
--- NOTE | 2024-01-21 17:47 | P.HP_ITS ---
History of Present Illness History of Present Illness Date Patient Seen: 01/21/24 Time Patient Seen: 17:48 Chief complaint: Can't keep his meds down Narrative: This is a 68 year old male, with PMH of chronic pancreatitis, CAD, HLD, chronic pain and opiate dependence, recent diagnosis of medullary thyroid cancer s/p extensive neck surgery at the [facility] (removal of thyroid and resection of a portion of the jugular vein) a couple of weeks ago who presents with nausea and vomiting, inability to keep medications down for the past day. He has neck pain and chest pain worse because he cannot keep his medications down. He denies diarrhea or overt abdominal pain. He has a neck drain which is draining small amounts of serosanguinous fluid. Labs showed elevated glucose at 274, no acidosis or anion gap. LA was 1.4. Calcium was 6.1, phos was 4.9. Repeat Calcium was 5.3. Albumin is 3.9. PTH is a send out. [facility] Medical History Chronic low back pain Coronary artery disease Thyroid nodule Diabetes mellitus Atrial flutter with rapid ventricular response Sepsis Claudication in peripheral vascular disease History of cardioversion (03/07/21) Campylobacter enteritis Exocrine pancreatic insufficiency Acute dehydration Enteritis, enteropathogenic E. coli Paroxysmal atrial fibrillation Psoriasis Narcolepsy GERD (gastroesophageal reflux disease) Hyperlipidemia HTN (hypertension) Insulin dependent diabetes mellitus with complications Peripheral vascular disease Gastroenteritis Pancreatitis Atrial flutter with rapid ventricular response Surgical History History of epididymectomy Hx of biopsy History of femoropopliteal bypass H/O exploratory laparotomy Family History Father Colon cancer Mother Narcolepsy Grandmother Narcolepsy Social History household members: spouse Smoking Status: Former smoker alcohol intake: former Meds Home Medications and Allergies Home Medications Medication Instructions Recorded Confirmed Type clopidogrel 75 mg tablet (Plavix) 75 mg PO QAM ##0 04/15/08 12/28/23 History acetaminophen 325 mg tablet (Pain 500 mg PO Q4HP PRN Pain, Mild 09/25/17 12/28/23 History Relief (acetaminophen)) dabigatran etexilate 150 mg 150 mg PO BID 03/24/18 12/28/23 History capsule (Pradaxa) lisinopril 2.5 mg tablet 2.5 mg PO QAM blood pressure 04/28/19 12/28/23 History lgcpzl-[id number]-[id number] 1 cap PO QID #120 caps 03/15/20 12/28/23 Rx 24,000-76,000-120,000 unit capsule,delayed rel (Creon) duloxetine 60 mg capsule,delayed 60 mg PO QAM 11/01/21 12/28/23 History release (Cymbalta) ondansetron 8 mg disintegrating 8 mg PO PRN PRN nausea/vomiting 02/25/22 12/28/23 History tablet trazodone 50 mg tablet 50 mg PO BEDTIME PRN insomnia #30 03/03/22 12/28/23 Rx tabs morphine 15 mg tablet,extended 30 mg PO .HS 06/06/22 12/28/23 History release (MS Contin) amlodipine 5 mg tablet 10 mg PO DAILY 01/19/23 12/28/23 History rosuvastatin 10 mg tablet 40 mg PO DAILY 01/19/23 12/28/23 History diphenhydramine HCl 12.5 mg/5 mL 50 mg PO Q6H PRN nausea and 06/01/23 12/28/23 History oral elixir vomiting insulin glargine 10 units SUBCUT QAM 06/01/23 12/28/23 History ipratropium-albuterol 3 ml inhalation 4XD PRN For 06/01/23 12/28/23 History shortness of breath tadalafil 20 mg PO PRN PRN 1hr before sexual 06/01/23 12/28/23 History activity pantoprazole 40 mg tablet,delayed 40 mg PO BID 06/06/23 12/28/23 History release ezetimibe 10 mg tablet 10 mg PO DAILY 07/03/23 12/28/23 History metoclopramide HCl 10 mg tablet 10 mg PO Q6H PRN nausea and 11/01/23 12/28/23 Rx (Reglan) vomiting #20 tabs oxycodone 7.5 mg tablet,oral ONLY 5 mg PO Q4H PRN pain 11/21/23 12/28/23 History (not for feeding tubes) metoprolol succinate 25 mg 25 mg PO BID 11/29/23 12/28/23 History tablet,extended release 24 hr promethazine 25 mg rectal 25 mg NV Q6H PRN vomiting 11/29/23 12/28/23 History suppository promethazine 25 mg tablet 25 mg PO Q4-6H PRN diarrhea 11/29/23 12/28/23 History methylphenidate HCl 20 mg tablet 20 mg PO TID #90 tabs 12/03/23 12/28/23 Rx nitroglycerin 0.3 mg sublingual See Rx Instructions .Route 12/03/23 12/28/23 Rx tablet .COMPLEX #100 ea Allergies Allergy/AdvReac Type Severity Reaction Status Date / Time Iodine and Iodide Containing Allergy Severe Blister Verified 01/21/24 16:34 Produc [IODINE AND IODIDE CONTAINING PRODUC] Sulfa (Sulfonamide Allergy Severe Anaphylaxis Verified 12/28/23 15:50 Antibiotics) [SULFA (SULFONAMIDE ANTIBIOTICS)] gabapentin AdvReac Intermediate Dizziness Verified 12/28/23 15:50 Annhpfr-QCB-TxH Reductase AdvReac Intermediate Verified 12/28/23 15:50 Inhibitor metformin AdvReac Mild Verified 12/28/23 15:50 Review of Systems Review of Systems Narrative: All other systems reviewed with the patient and are negative unless otherwise stated. Exam Vital Signs (past 8 hours): - 01/21/24 10:55 01/21/24 11:12 01/21/24 11:30 Temperature 98 F Pulse Rate 120 H 112 H Respiratory Rate 18 32 H Blood Pressure 161/73 H 158/75 H Pulse Oximetry 97 94 Oxygen Delivery Method Room Air Oxygen Flow Rate Fraction of Inspired Oxygen 01/21/24 11:30 01/21/24 12:00 01/21/24 12:00 Temperature Pulse Rate 110 H 112 H Respiratory Rate 22 29 H Blood Pressure 148/81 H Pulse Oximetry 94 91 Oxygen Delivery Method Oxygen Flow Rate Fraction of Inspired Oxygen 01/21/24 12:30 01/21/24 12:30 01/21/24 13:00 Temperature Pulse Rate 111 H 109 H Respiratory Rate 15 28 H Blood Pressure 154/77 H Pulse Oximetry 95 91 Oxygen Delivery Method Oxygen Flow Rate Fraction of Inspired Oxygen 01/21/24 13:00 01/21/24 13:18 01/21/24 13:18 Temperature 99.7 F H Pulse Rate 112 H Respiratory Rate Blood Pressure 171/85 H 151/68 H Pulse Oximetry 93 Oxygen Delivery Method Room Air Oxygen Flow Rate Fraction of Inspired Oxygen 01/21/24 13:29 01/21/24 13:30 01/21/24 13:30 Temperature Pulse Rate 107 H Respiratory Rate 14 19 Blood Pressure 150/66 H Pulse Oximetry 94 97 Oxygen Delivery Method Nasal Cannula Nasal Cannula Oxygen Flow Rate 1 1 Fraction of Inspired Oxygen 01/21/24 14:00 01/21/24 14:04 01/21/24 14:04 Temperature 99.2 F Pulse Rate 109 H 109 H Respiratory Rate Blood Pressure 133/105 H Pulse Oximetry 98 98 Oxygen Delivery Method Nasal Cannula Oxygen Flow Rate 1 Fraction of Inspired Oxygen 01/21/24 14:30 01/21/24 14:30 01/21/24 15:00 Temperature Pulse Rate 119 H Respiratory Rate Blood Pressure 166/93 H 158/70 H Pulse Oximetry 97 Oxygen Delivery Method Nasal Cannula Oxygen Flow Rate 1 Fraction of Inspired Oxygen 01/21/24 15:00 01/21/24 15:30 01/21/24 15:30 Temperature Pulse Rate 107 H 103 H Respiratory Rate 15 Blood Pressure 152/68 H Pulse Oximetry 92 96 Oxygen Delivery Method Nasal Cannula Nasal Cannula Oxygen Flow Rate 1 1 Fraction of Inspired Oxygen 01/21/24 15:44 01/21/24 15:44 01/21/24 16:00 Temperature Pulse Rate 107 H 104 H Respiratory Rate 22 Blood Pressure 153/70 H Pulse Oximetry 98 97 Oxygen Delivery Method Oxygen Flow Rate Fraction of Inspired Oxygen 01/21/24 16:16 01/21/24 16:16 01/21/24 16:30 Temperature Pulse Rate 105 H Respiratory Rate Blood Pressure 173/74 H 155/68 H Pulse Oximetry 95 Oxygen Delivery Method Nasal Cannula Oxygen Flow Rate 1 Fraction of Inspired Oxygen 01/21/24 16:30 01/21/24 16:40 01/21/24 17:00 Temperature Pulse Rate 104 H 104 H 104 H Respiratory Rate 15 22 14 Blood Pressure 155/68 H Pulse Oximetry 98 99 96 Oxygen Delivery Method Nasal Cannula Nasal Cannula Nasal Cannula Oxygen Flow Rate 1 1 1 Fraction of Inspired Oxygen 24 Fraction of Inspired Oxygen 24 SaO2/FiO2 Ratio 412 Oxygen Delivery Method Nasal Cannula Oxygen Flow Rate 1 Objective ECG Impression: prolonged QT with qtc 508. Sinus tachycardia, nonspecific ST changes. Labs 01/21/24 11:20 01/21/24 11:20 Labs: Laboratory Results - last 24 hr 01/21/24 01/21/24 01/21/24 11:20 16:24 16:26 WBC 22.7 H RBC 4.17 L Hgb 10.9 L Hct 33.7 L MCV 80.7 MCH 26.1 MCHC 32.4 RDW 16.4 H Plt Count 623 H Neut % (Auto) 90.2 H Lymph % (Auto) 3.2 L Dolores % (Auto) 3.6 Eos % (Auto) 2.4 Baso % (Auto) 0.6 Neut # (Auto) 35103 H Lymph # (Auto) 700 L Dolores # (Auto) 800 Eos # (Auto) 500 H Baso # (Auto) 100 Sodium 130 L Potassium 4.7 Chloride 94 L Carbon Dioxide 26 BUN 14 Creatinine 0.66 Estimated GFR > 60 BUN/Creatinine Ratio 21.2 Glucose 274 H Lactate 1.4 Calcium 6.1 L* 5.3 L* Phosphorus 4.9 H Total Bilirubin 0.5 AST 22 ALT 12 Alkaline Phosphatase 126 Total Creatine Kinase 161 Troponin I < 0.012 NT-Pro-B Natriuret Pep 51 Total Protein 6.6 Albumin 3.9 Globulin 2.7 Albumin/Globulin Ratio 1.4 Lipase 32 Procalcitonin 3.34 H Assessment & Plan Assessment & Plan narrative: #hypocalcemia - likely due to recent neck surgery, may be causing presenting symptoms of nausea and vomiting, and can lead to dysphagia as well. - monitor calcium q6h, replace with calcium gluconate if <7.5. When above 7.5 start oral repletion. - PICC line placed for frequent draws. - PTH pending, is a send out - check ionized calcium as well with lab draws - phos is elevated at 4.9, check with BMP and Mg as well with next lab draw. - telemetry, qtc 508 on admit EKG #recent neck surgery with dysphagia - monitor drain output - CT scans no overt fluid collection or abscess, though there is diffuse fluid/edema #rule out sepsis, suspect aspiration pneumonia - continue zosyn - CT with LLL developing PNA - thick liquids only, he has not been eating solid foods. Will consult APARTMENT MANAGER. #opiate withdrawal, chronic pain with opiate dependence - try to resume home morphine, #hyponatremia - continue NS # Paroxysmal A-fib -currently in SR -continue metoprolol and pradaxa # DM2 -low dose SSI -last A1c 8% # PAD s/p angioplasty and stent -continue home plavix # HTN -hold home medications. # HLD -continue home statin # insomnia -continue home trazodone # depression -continue home cymbalta Code status is DNR. DVT prophylaxis with Pradaxa. Proxy is partner Yisel. I have utilized all available immediate resources to obtain, update, or review the patient's current medications. Dispo: patient admitted under inpatient status. Likely discharge home, timing unclear, at least 2 midnights expected. Additional history obtained via discussions with the ER provider. These discussions contributed to the creation of the above assessment and plan. I have reviewed patient's presenting documentation, labs, and imaging personally. Time-Based Coding :: [TOTAL MINUTES] spent with patient and on the chart (including review of chart, obtaining history, exam, reviewing outside data, placing orders, documenting exam and treatment plan, and counseling patient) on [DATE].
--- NOTE | 2024-01-21 18:08 | DI.RAD.S_ITS ---
PROCEDURE: XR CHEST FOR PICC 1V INDICATIONS: line placement COMPARISON: [facility], , XR CHEST 1V, 01/05/2024, 22:27. FINDINGS: PICC was placed by the intravenous therapy team from the right side. Distal tip projects over the region of the mid SVC. Multiple surgical clips are seen in the bilateral neck. IMPRESSION: Tip of PICC projects to the area of mid SVC. Approved by: Mandie Multani M.D.,Ph.D. on 01/21/2024 at 19:15
--- NOTE | 2024-01-21 19:53 | PC.NURSE ---
Patient was brought up from ER to room 222 at approx 1845. Alert and oriented, pale, placed on tele. Patient states overall he is starting to feel just a little better. Dr. Roy came to bedside right away to see patient. Oriented to room and call light, call light within reach.
[2024-01-21] MEDS: MORPHINE ER 15 MG TABLET PO (20:32)
[2024-01-21] MEDS: DABIGATRAN 75 MG CAPSULE 150 MG PO (20:42)
[2024-01-21] MEDS: HYDROMORPHONE 2 MG TABLET PO (20:42)
[2024-01-21] MEDS: TRAZODONE 50 MG TABLET PO (20:43)
[2024-01-21] MEDS: INSULIN LISPRO 100 UNIT/ML 3ML VIAL SUBCUT (20:51)
[2024-01-21] MEDS: PANTOPRAZOLE DR 40 MG TABLET PO (21:00)
[2024-01-21] MEDS: PIPERACILLIN/TAZO 3.375 GM in SODIUM CHLORIDE 0.9% 100 ML IV (21:05)
[2024-01-21 23:25] LABS: BUN Creatinine Ratio 18.6 (6-22); Blood Urea Nitrogen 11 mg/dL (9-20); Carbon Dioxide 27 mmol/L (22-32); Chloride 96 mmol/L (98-107); Estimated Glomerular Filt Rate > 60 mL/min (>60); Glucose 342 mg/dL (80-110); HEMOLYSIS < 15 (0-50); Sodium 130 mmol/L (137-145)
[2024-01-21 23:27] LABS: Calcium 5.8 mg/dL (8.4-10.2)
[2024-01-22] VITALS (8 sets, daily range): BP systolic 136–156; BP diastolic 61–75; PULSE 87–100; RESP 12–22; TEMP 36–36.4; O2SAT 91–97
[2024-01-22] MEDS: CALCIUM GLUCONATE 4.65 MEQ in SODIUM CHLORIDE 0.9% 50 ML 180 MEQ IV (01:30)
[2024-01-22 04:47] LABS: Add Manual Diff / Slide Review NO; Basophils Absolute Auto 100 /uL (0-100); Basophils Percent Auto 0.4 % (0-2); Eosinophils Absolute Auto 0 /uL (0-450); Hematocrit 29.6 % (41-53); Hemoglobin 9.7 g/dL (13.5-17.5); Lymphocytes Absolute Auto 700 /uL (1100-4500); Lymphocytes Percent Auto 4.1 % (25-40); Mean Corpuscular HGB Conc 32.8 % (30-36); Mean Corpuscular Hemoglobin 26.3 PG (26-34); Mean Corpuscular Volume 80.2 fL (80-100); Monocytes Absolute Auto 400 /uL (0-900); Neutrophils Absolute Auto 16600 /uL (1500-7000); Neutrophils Percent Auto 93.5 % (50-75); Platelet Count 551 X10^3/uL (150-400); Red Blood Cell Count 3.69 X10^6/uL (4.5-5.9); Red Cell Distribution Width 16.5 % (11.6-14.8); White Blood Cell Count 17.7 X10^3/uL (4.5-11.0)
[2024-01-22] MEDS: PIPERACILLIN/TAZO 3.375 GM in SODIUM CHLORIDE 0.9% 100 ML IV ×3 (04:52→20:03)
[2024-01-22] MEDS: HYDROMORPHONE 2 MG TABLET PO ×3 (04:53→14:27)
[2024-01-22 04:57] LABS: Alanine Aminotransferase 14 IU/L (<50); Albumin 3.4 g/dL (3.5-5.0); Albumin Globulin Ratio 1.2 (1.0-2.8); Alkaline Phosphatase 102 U/L (38-126); Aspartate Aminotransferase 18 IU/L (17-59); BUN Creatinine Ratio 16.1 (6-22); Bilirubin Total 0.4 mg/dL (0.2-1.3); Blood Urea Nitrogen 10 mg/dL (9-20); Carbon Dioxide 27 mmol/L (22-32); Chloride 97 mmol/L (98-107); Estimated Glomerular Filt Rate > 60 mL/min (>60); Globulin 2.9 g/dL (1.7-4.1); Glucose 283 mg/dL (80-110); HEMOLYSIS < 15 (0-50); Potassium 4.2 mmol/L (3.4-5.1); Sodium 131 mmol/L (137-145); Total Protein 6.3 g/dL (6.3-8.2)
[2024-01-22 05:05] LABS: Calcium 6.2 mg/dL (8.4-10.2)
[2024-01-22] MEDS: PANTOPRAZOLE DR 40 MG TABLET PO ×2 (06:17→20:24)
[2024-01-22] MEDS: CALCIUM GLUCONATE 9.3 MEQ in SODIUM CHLORIDE 0.9% 50 ML 140 MEQ IV ×2 (07:10→12:06)
[2024-01-22 08:00] LABS: Magnesium 1.7 mg/dL (1.6-2.3)
[2024-01-22 08:03] LABS: Phosphorous 5.1 mg/dL (2.3-3.7)
[2024-01-22] MEDS: MORPHINE ER 15 MG TABLET PO ×2 (09:47→20:20)
[2024-01-22] MEDS: CLOPIDOGREL 75 MG TABLET PO (09:48)
[2024-01-22] MEDS: DABIGATRAN 75 MG CAPSULE 150 MG PO ×2 (09:48→20:20)
[2024-01-22] MEDS: INSULIN LISPRO 100 UNIT/ML 3ML VIAL SUBCUT ×4 (09:49→21:05)
[2024-01-22] MEDS: ENOXAPARIN 40 MG/0.4 ML SYRINGE SUBCUT (09:49)
[2024-01-22 11:09] LABS: BUN Creatinine Ratio 17.2 (6-22); Blood Urea Nitrogen 10 mg/dL (9-20); Calcium 6.9 mg/dL (8.4-10.2); Carbon Dioxide 27 mmol/L (22-32); Chloride 97 mmol/L (98-107); Estimated Glomerular Filt Rate > 60 mL/min (>60); Glucose 309 mg/dL (80-110); HEMOLYSIS < 15 (0-50); Potassium 4.3 mmol/L (3.4-5.1); Sodium 133 mmol/L (137-145)
--- NOTE | 2024-01-22 11:37 | P.PN_ITS ---
Subjective Subjective Interval history: He continues to experience lower abdominal cramping pain. May be a bit worse with reglan. Tolerating a BRAT diet today. Started on antibiotics yesterday, without much change today. No BM now for 2 days, agreeable to colace and senna. Will up oxycodone to his usual home dose as well to see if more effective. Exam Vital Signs (past 8 hours): - 01/22/24 04:00 01/22/24 08:00 Temperature 97.6 F 96.9 F L Pulse Rate 100 H 87 Respiratory Rate 12 14 Blood Pressure 136/61 137/62 Pulse Oximetry 96 96 Oxygen Flow Rate 0 0 Fraction of Inspired Oxygen 24 SaO2/FiO2 Ratio 412 Oxygen Delivery Method Room Air Oxygen Flow Rate 0 Narrative Exam Narrative: Alert and oriented x3. No apparent distress. L chest / neck SUMAN with serous drainage. Heart is regular rate and rhythm without murmur Lungs are clear to auscultation bilaterally Extremities have no ankle edema Abd S NT ND Objective Labs 01/22/24 04:40 01/22/24 10:50 Labs: Laboratory Results - last 24 hr 01/21/24 01/21/24 01/21/24 11:20 16:24 16:26 WBC 22.7 H RBC 4.17 L Hgb 10.9 L Hct 33.7 L MCV 80.7 MCH 26.1 MCHC 32.4 RDW 16.4 H Plt Count 623 H Neut % (Auto) 90.2 H Lymph % (Auto) 3.2 L [place] % (Auto) 3.6 Eos % (Auto) 2.4 Baso % (Auto) 0.6 Neut # (Auto) 37004 H Lymph # (Auto) 700 L [place] # (Auto) 800 Eos # (Auto) 500 H Baso # (Auto) 100 Sodium 130 L Potassium 4.7 Chloride 94 L Carbon Dioxide 26 BUN 14 Creatinine 0.66 Estimated GFR > 60 BUN/Creatinine Ratio 21.2 Glucose 274 H Lactate 1.4 Calcium 6.1 L* 5.3 L* Phosphorus 4.9 H Magnesium Total Bilirubin 0.5 AST 22 ALT 12 Alkaline Phosphatase 126 Total Creatine Kinase 161 Troponin I < 0.012 NT-Pro-B Natriuret Pep 51 Total Protein 6.6 Albumin 3.9 Globulin 2.7 Albumin/Globulin Ratio 1.4 Lipase 32 Procalcitonin 3.34 H 01/21/24 01/22/24 01/22/24 22:50 04:40 10:50 WBC 17.7 H RBC 3.69 L Hgb 9.7 L Hct 29.6 L MCV 80.2 MCH 26.3 MCHC 32.8 RDW 16.5 H Plt Count 551 H Neut % (Auto) 93.5 H Lymph % (Auto) 4.1 L [place] % (Auto) 2.0 L Eos % (Auto) 0.0 L Baso % (Auto) 0.4 Neut # (Auto) 91815 H Lymph # (Auto) 700 L [place] # (Auto) 400 Eos # (Auto) 0 Baso # (Auto) 100 Sodium 130 L 131 L 133 L Potassium 5.0 4.2 4.3 Chloride 96 L 97 L 97 L Carbon Dioxide 27 27 27 BUN 11 10 10 Creatinine 0.59 L 0.62 L 0.58 L Estimated GFR > 60 > 60 > 60 BUN/Creatinine Ratio 18.6 16.1 17.2 Glucose 342 H 283 H 309 H Lactate Calcium 5.8 L* 6.2 L* 6.9 L Phosphorus 5.1 H Magnesium 1.7 Total Bilirubin 0.4 AST 18 ALT 14 Alkaline Phosphatase 102 Total Creatine Kinase Troponin I NT-Pro-B Natriuret Pep Total Protein 6.3 Albumin 3.4 L Globulin 2.9 Albumin/Globulin Ratio 1.2 Lipase Procalcitonin [facility] Medical History Chronic low back pain Coronary artery disease Thyroid nodule Diabetes mellitus Atrial flutter with rapid ventricular response Sepsis Claudication in peripheral vascular disease History of cardioversion (03/07/21) Campylobacter enteritis Exocrine pancreatic insufficiency Acute dehydration Enteritis, enteropathogenic E. coli Paroxysmal atrial fibrillation Psoriasis Narcolepsy GERD (gastroesophageal reflux disease) Hyperlipidemia HTN (hypertension) Insulin dependent diabetes mellitus with complications Peripheral vascular disease Gastroenteritis Pancreatitis Atrial flutter with rapid ventricular response Surgical History History of epididymectomy Hx of biopsy History of femoropopliteal bypass H/O exploratory laparotomy Family History Father Colon cancer Mother Narcolepsy Grandmother Narcolepsy Social History household members: spouse Smoking Status: Former smoker alcohol intake: former Assessment & Plan Assessment & Plan narrative: #hypocalcemia - likely due to recent neck surgery, may be causing presenting symptoms of nausea and vomiting, and can lead to dysphagia as well. - monitor calcium q6h, replace with calcium gluconate if <7.5. Will start oral repletion today as well. Calcium is up to 6.9 this afternoon. - PICC line placed for frequent draws. - PTH pending, is a send out - ionized calcium pending, clinically not useful here as takes too long to return. will stop checking. - phos is elevated at 5.1 today, continue to follow. Mg 1.7. - telemetry, qtc 508 on admit EKG #recent neck surgery with dysphagia - monitor drain output - CT scans no overt fluid collection or abscess, though there is diffuse fluid/edema #rule out sepsis, suspect aspiration pneumonia - continue zosyn - CT with LLL developing PNA - thick liquids only, he has not been eating solid foods. Some coughing with thick liquids per LACING CUTTER today, possible swallow study in the next few days, but hypocalcemia can effect swallow so will reassess as calcium continues to improve. #opiate withdrawal, chronic pain with opiate dependence - continue home morphine BID, with oxycodone as needed. Much improved today. #hyponatremia - continue NS today, Na up to 133. Should be able to stop tomorrow. # Paroxysmal A-fib -currently in SR -continue metoprolol and pradaxa # DM2 -low dose SSI -last A1c 8% # PAD s/p angioplasty and stent -continue home plavix # HTN -hold home medications. # HLD -continue home statin # insomnia -continue home trazodone # depression -continue home cymbalta Code status is DNR. DVT prophylaxis with Pradaxa. Proxy is partner Yisel. I have utilized all available immediate resources to obtain, update, or review the patient's current medications. Dispo: patient admitted under inpatient status. Likely discharge home, timing unclear, at least 2 midnights expected. Additional history obtained via discussions with the overnight hospitalist, pharmacist, bedside RN, and protective services case worker. These discussions contributed to the creation of the above assessment and plan. I have reviewed patient's presenting documentation, labs, and imaging personally. Time-Based Coding :: [TOTAL MINUTES] spent with patient and on the chart (including review of chart, obtaining history, exam, reviewing outside data, placing orders, documenting exam and treatment plan, and counseling patient) on [DATE]. Quality VTE Deep Vein Thrombosis/Pulmonary Embolism Present on Admission: No
[2024-01-22] MEDS: MAGNESIUM CHLORIDE 64 MG TABLET 128 MG PO (12:04)
[2024-01-22] MEDS: CALCIUM CARBONATE 500 MG TAB 1000 MG PO ×2 (12:11→20:21)
--- NOTE | 2024-01-22 13:24 | CM.DANOTE ---
Initial DCP Assessment Note Pt is a 69yo male, resident of [facility], hx of chronic pancreatitis and multiple admissions for same, recent neck surgery at [facility] due to diagnosis of medullary thyroid cancer, presents with N/V cannot keep anything down. Patient admitted INPT for management of hypocalcemia - likely due to recent surgery- dysphagia, PNA PCP: Eric Huang Payer: [facility] Reviewed chart, pt discussed in multidisciplinary rounds this morning. Patient likely to remain admitted for at least another 48-72hrs. Met w/patient this afternoon. 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 Patient shares with this OIL PROGRAM COMPLIANCE SPECIALIST that he lives with chronic conditions that have motivated him to discuss his advanced directives with his family for the last few years. Patient further shares that although full pathology is still pending since his surgery, his [facility] providers have told him they were not able to eliminate all the cancer. Patient is considering a trial, non invasive ,therapy that is being offered through the [place]. Patient denies current needs from this CM team, reports he has a strong ferdinand, and is blessed with a supportive family, evangelical community and community. Patient plans to have [facility] involved for he and his family when it's time. Patient feels he has everything taken care of for himself and his family ie will, directives etc. No barriers identified at this time to patient's safe discharge home w/family to assist; close outpatient f/u recommended. CM team will plan to follow clinical course closely in case any DC needs or concerns arise. RIMA Neville Discharge Planning/Care Management CM Discharge Assessment Start: 01/22/24 13:10 Freq: Status: Active Protocol: Document 01/22/24 13:22 SHERI (Rec: 01/22/24 13:24 SHERI [id number]) Discharge Planning Assessment Assigned Hand I Blocker RIMA Kruse DPOA/Assigned Designee Name Yisel Diehl, spouse Contact Information [phone] Advance Directives? Yes: Yes- Advance Directive Advance Directives on File Yes History Provided By Patient,Medical Record Prior Living Arrangements House Household Members spouse Type of transporation used prior to Drives own vehicle admit Independent with ADL's Yes Is patient alert and oriented? Yes Comment has cane, does not currently use. Barriers to Discharge No Comment Anticipate discharge home with supportive family Discharge Plan Home Transportation Arrangement or supportive family friend will provide transport. Referrals Initiated None needed If patient plan is home with home health Yes : Has signed face to face form been completed? Whiteboard Updated in Patient Room with Yes name and ext. # of Hand I Blocker
[2024-01-22] MEDS: DICLOFENAC 1% GEL 100 GM 1 APPLIC TOP ×3 (13:48→20:59)
--- NOTE | 2024-01-22 14:05 | ST.IPCSEOM ---
Visit Care Team Role Provider Type Eric Huang MD Primary Care Provider Physician Specialty: Family Practice Address: [address] [place] [address], [address] Email: [email or web address] LEDY Razo Family Provider Non-Staff Specialty: Medical Address: [address] [place] [address], [place], [address] Email: Laina Andres DO Emergency Provider Physician Referring Provider Specialty: Emergency Medicine Address: [address] [place] [address], [address] Email: [email or web address] Roy DO Admit Provider Physician Attending Provider Specialty: Internal Medicine Address: [address] [place] [address], [address] Email: [email or web address] Diagnoses Pneumonitis due to inhalation of food and vomit (01/21/24) Past Medical History (Last Reviewed 01/21/24 @ 18:01 by Brian Roy DO) Acute dehydration (Medical) Atrial flutter with rapid ventricular response (Medical) Atrial flutter with rapid ventricular response (Medical) Patient with recalcitrant Afib/RVR, history of similar. Likely exacerbated due to pneumonia/influenza, pancreatitis. Failed electrical cardioversion, dilt, amio. Has received Dig x 1. Campylobacter enteritis (Medical) Chronic low back pain (Medical) Claudication in peripheral vascular disease (Medical) Coronary artery disease (Medical) Diabetes mellitus (Medical) Enteritis, enteropathogenic E. coli (Medical) Exocrine pancreatic insufficiency (Medical) Gastroenteritis (Medical) GERD (gastroesophageal reflux disease) (Medical) History of cardioversion (Medical 03/07/21) ED @ [facility] HTN (hypertension) (Medical) Hyperlipidemia (Medical) Insulin dependent diabetes mellitus with complications (Medical) Narcolepsy (Medical) Pancreatitis (Medical) Will continue Creon Paroxysmal atrial fibrillation (Medical) Peripheral vascular disease (Medical) Multiple lower extremity stents and bypass procedures Psoriasis (Medical) Sepsis (Medical) Thyroid nodule (Medical) Speech-Language Pathology Swallow Evaluation [facility] Clinical Swallow Evaluation Start: 01/22/24 10:52 Freq: Status: Active Protocol: Document 01/22/24 10:52 SS (Rec: 01/22/24 11:16 SS [id number]) Clinical Swallow Evaluation Session Time Visit Start Time 10:05 Visit Stop Time 10:45 Total Visit Minutes 40 Visit Information Visit Number Initial Evaluation Referral Referring Provider Dr. Brian Roy Reason for Referral Signs and symptoms of dysphagia Setting Assessment Location Acute Care Visit Type Note Type Initial evaluation Next Note Type Next Note Type Treatment Note Patient Information Identification Type Name,Wristband History Jann Diehl is a 69-year- old male referred for [facility] services for assessment/ treatment of swallowing function. Pt was admitted with nausea and vomiting and was found to have hypocalcemia and suspected aspiration pneumonia. PMH includes GERD, chronic pancreatitis, CAD, HLD , chronic pain and opiate dependence, and recent diagnosis of medullary thyroid cancer s/p extensive neck surgery at the [facility] (removal of thyroid and resection of a portion of the jugular vein) two weeks ago. Per H&P on , his neck and chest pain are worse because he cannot keep his medications down. Per pt report, he had completed an MBSS during his hospitalization which showed aspiration of liquids, though has was able to clear aspirated thickened liquids and solids from his airway with strong cough. He reports recommended diet was nectar thick liquids and puree textures. CIRC[facility] FUSER unable to access MBSS report at this time, though MD verbal report of MBSS results is consistent with pt report. Subjective Observations Pt was sitting fully upright upon [facility] arrival. He presents with intermittent throat clearing and cough and stated he was attempting to clear phlegm. Pt?s cognitive and/or communication status is notable for intact communication and cognition. Pt is alert and oriented x 4. He was able to provide case history accurately and without difficulty. Hoarseness noted, which pt reported has improved over the past two weeks. Reported by Patient/Caregiver Pain/Discomfort Yes Location Neck,Chest Other Symptoms Choking,Difficulty swallowing liquids,Difficulty swallowing pills,Difficulty swallowing solids,History of aspiration or pneumonia Current Diet Pureed (IDDSI 4) Baseline Feeding Method Independent in self-feeding Results Pt expressed he has been diligent in following CIRC[facility]USER recommendations since DC hospitalization and has been consuming nectar/mildly thick liquids only and puree textures. The IDDSI Framework Protocol: IDDSI.1 Objective Assessment Mental Status Alert,Responsive,Cooperative Oral Integrity WFL Dentition Within normal limits Lip Function Within normal limits Observation of Lips at Rest Symmetrical Pucker Within normal limits Lip Retraction Within normal limits Alternating Pucker/Lip Retraction Within normal limits Tongue Function Within normal limits Observations of Tongue at Rest Within normal limits Tongue Protrusion Within normal limits Tongue Retraction Within normal limits Tongue Lateralization Within normal limits Jaw Function Within normal limits Observation of Jaw at Rest Within normal limits Jaw Opening Within normal limits Jaw Closing Within normal limits Jaw Lateralization Within normal limits Jaw Protrusion Within normal limits Jaw Retraction Within normal limits Hard/Soft Palate Function Within normal limits Observations of Hard/Soft Palate Within normal limits Food and Liquid Trials Position During Assessment Upright (90 degrees) Liquids Trialed Thin (IDDSI 0),Mildly Thick ( IDDSI 2) Solid Trials Purred (IDDSI 4),Minced & Moist (IDDSI 5) Administration Type Tea spoon,Cup single sip,Self- feeding Oral Impairment Within normal limits Oral Phase Comments Oral acceptance of bolus was WNL. Pt demonstrated adequate labial seal. Bolus formation and anterior-posterior transit of the bolus appeared WNL. Mastication duration was WNL. No oral residue noted. Pharyngeal Impairment Moderately impaired Pharyngeal Phase Comments Pharyngeal phase cannot be assessed objectively at bedside though subjectively appeared effortful and pt required 2 swallows per bolus. Pt demonstrated consistent s/ sx of aspiration with minced and moist textures re: throat clearing and coughing and intermittent s/sx of penetration/aspiration with nectar/mildly thick liquids re : immediate throat clear in 2/ 7 trials. However, this is impossible to differentiate from baseline cough and throat clearing in attempts to clear phlegm. Fatigue/Endurance Endurance WNL The IDDSI Framework Protocol: IDDSI.1 Findings Swallowing Function Pharyngeal phase dysphagia Severity of Swallow Impairment Moderately-severely impaired Contributing Factors to Swallow Impaired airway protection, Impairment Excessive pharyngeal residue Prognosis Fair Based on Cognitive status,Family support,Age,History of aspiration/aspiration pneumonia,Comorbidities, Duration of symptoms/severity Comment Pt presents with indications of pharyngeal dysphagia and aspiration risk is judged to be high. Cough strength is judged to be weak increasing aspiration related complications. Additionally, risk for aspiration pneumonia is judged to be high given current compromised immune system/health status. Given discussion with pt and MD, recommend continuation of nectar/mildly thick liquids and puree solids until MBSS is completed. Recommend upright positioning, small, single sips of liquids, and use of slow rate and small bites of solids. Pt will benefit from frequent oral care, including before and after all meals, to minimize colonization of oral pathogens that can increase pt's risk of developing aspiration pneumonia if aspirated. Modified Barium Swallow Study (MBSS) recommended to visualize and assess swallow function and anatomy, determine aspiration risk, make appropriate and updated diet and treatment recommendations, as well as to identify need for additional referrals. Order placed by MD and MBSS scheduled for at 11:00. Impact on Safety and Functioning Risk for aspiration,Risk for inadequate nutrition/hydration Recommendations Instrumental Assessment Yes Swallowing Treatment Yes Frequency Daily Duration Until d/c Recommended Solids Pureed (IDDSI 4) Recommended Liquids Mildly Thick (IDDSI 2) Safety Precautions/Swallowing Remain upright (90 degrees) Recommendations during all oral intake,Upright position at least 30 minutes after meals,Small bites and sips when eating,Slow rate; swallow between bites,Multiple swallows,Strict oral care after intake Medication Recommendations Crushed in Carrier Discharge Recommendations Inpatient rehab facility Referrals Recommended Referrals Dietary Education Patient/Caregiver Education Patient expressed understanding of evaluation, Patient expressed agreement with goals & treatment plans Goals Short-term Goals 1. Patient will complete MBSS to further evaluate swallowing pathophysiology and determine next steps in POC. Long-term Goals 1. Patient will safely tolerate least restrictive diet consistency without overt s/sx of aspiration in order to meet nutrition and hydration needs and mitigate risk of developing aspiration pneumonia.
--- NOTE | 2024-01-22 14:08 | CM.DPNOTE ---
DCP Cont Voice message received from ANIKET Pritchettmanager maritime nurse with [facility] P [phone], summary below: Patient is followed by the Radha team LEDY Goldman at the [facility] office P [phone] option 1. Call to schedule a hospital follow up appointment. VA sexual assault social worker is Mouna Hooper P [phone] ext [phone] F [phone]. Patient is not service connected; patient would not be able to access VA covered SNF, has limited HH and hospice benefit if needed using VA coverage. Patient has reported dual coverage through [employer] to his VA team. SHERI
[2024-01-22] MEDS: HYDROMORPHONE 2 MG TABLET 4 MG PO ×2 (16:09→21:00)
[2024-01-22] MEDS: LIPASE/PROTEASE/AMYLASE 5/17/24 CAP 5 CAP PO (17:20)
[2024-01-22 18:26] LABS: BUN Creatinine Ratio 13.2 (6-22); Blood Urea Nitrogen 10 mg/dL (9-20); Calcium 7.4 mg/dL (8.4-10.2); Carbon Dioxide 28 mmol/L (22-32); Chloride 99 mmol/L (98-107); Estimated Glomerular Filt Rate > 60 mL/min (>60); Glucose 189 mg/dL (80-110); HEMOLYSIS < 15 (0-50); Potassium 4.4 mmol/L (3.4-5.1); Sodium 135 mmol/L (137-145)
--- NOTE | 2024-01-22 19:10 | PC.NURSE ---
Patient given dilaudid x3 today, it was increased to 4mg every three hours. Patients Ana drain leaking from around neck. Dressing placed and ana drain tube milked and patient had 40cc out. WRITER also got 30cc of serous fluid out of drain. He voided well and had a bm. Neck is slightly swollen with ss in place. Resting comfortably.
[2024-01-22] MEDS: TRAZODONE 50 MG TABLET PO (20:21)
[2024-01-22] MEDS: INSULIN GLARGINE 100 UNIT/ML 3ML PEN 10 UNIT SUBCUT (21:06)
--- NOTE | 2024-01-22 22:28 | PC.NURSE ---
Addendum entered by Kiki Gonzalez R.N. 01/23/24 04:20: Solicited help from WATER AND FIRE TECHNICIAN Cezar re: sluggish return on PICC; Cezra was able to clear both lines, both lumens patent and useable, heparin locked. Care continues. Original Note: NOC: During physical assessment, found that one lumen (purple) of 2L PICC was attached to IVF but not currently infusing; serosanguinous fluid noted in hub and 8 of line. Attempted to flush lumen using NS flush and then Heparin flush but access occluded, no drawback. Replaced line and hub; still no access, no drawback. Red lumen still patent, pt also has LAC PIV. Informed coordinator Ly MARCIAL. Care continues.
[2024-01-22] MEDS: OXYCODONE IR 5 MG TABLET PO (23:04)
[2024-01-22 23:17] LABS: BUN Creatinine Ratio 16.2 (6-22); Blood Urea Nitrogen 11 mg/dL (9-20); Calcium 6.9 mg/dL (8.4-10.2); Carbon Dioxide 30 mmol/L (22-32); Chloride 99 mmol/L (98-107); Estimated Glomerular Filt Rate > 60 mL/min (>60); Glucose 245 mg/dL (80-110); HEMOLYSIS < 15 (0-50); Sodium 133 mmol/L (137-145)
[2024-01-23] VITALS (11 sets, daily range): BP systolic 126–148; BP diastolic 72–86; PULSE 86–99; RESP 16–18; TEMP 35.6–36.6; O2SAT 93–98
[2024-01-23] MEDS: OXYCODONE IR 10 MG TABLET PO ×5 (01:44→19:35)
[2024-01-23] MEDS: DICLOFENAC 1% GEL 100 GM 1 APPLIC TOP ×4 (02:26→21:47)
[2024-01-23] MEDS: PIPERACILLIN/TAZO 3.375 GM in SODIUM CHLORIDE 0.9% 100 ML IV ×3 (03:37→19:36)
[2024-01-23] MEDS: HYDROMORPHONE 2 MG TABLET 4 MG PO ×3 (03:39→11:54)
[2024-01-23 04:37] LABS: Add Manual Diff / Slide Review NO; Basophils Absolute Auto 100 /uL (0-100); Basophils Percent Auto 0.5 % (0-2); Eosinophils Absolute Auto 200 /uL (0-450); Eosinophils Percent Auto 2.2 % (2-4); Hematocrit 28.2 % (41-53); Hemoglobin 9.3 g/dL (13.5-17.5); Lymphocytes Absolute Auto 1100 /uL (1100-4500); Lymphocytes Percent Auto 9.9 % (25-40); Mean Corpuscular HGB Conc 32.9 % (30-36); Mean Corpuscular Hemoglobin 26.4 PG (26-34); Mean Corpuscular Volume 80.4 fL (80-100); Monocytes Absolute Auto 700 /uL (0-900); Neutrophils Absolute Auto 9200 /uL (1500-7000); Neutrophils Percent Auto 81.4 % (50-75); Platelet Count 526 X10^3/uL (150-400); Red Cell Distribution Width 16.6 % (11.6-14.8); White Blood Cell Count 11.3 X10^3/uL (4.5-11.0)
[2024-01-23 04:48] LABS: Alanine Aminotransferase 10 IU/L (<50); Albumin 3.3 g/dL (3.5-5.0); Albumin Globulin Ratio 1.3 (1.0-2.8); Alkaline Phosphatase 93 U/L (38-126); Aspartate Aminotransferase 18 IU/L (17-59); BUN Creatinine Ratio 13.6 (6-22); Bilirubin Total 0.4 mg/dL (0.2-1.3); Blood Urea Nitrogen 9 mg/dL (9-20); Calcium 6.8 mg/dL (8.4-10.2); Carbon Dioxide 29 mmol/L (22-32); Chloride 101 mmol/L (98-107); Estimated Glomerular Filt Rate > 60 mL/min (>60); Globulin 2.6 g/dL (1.7-4.1); Glucose 175 mg/dL (80-110); HEMOLYSIS < 15 (0-50); Potassium 3.9 mmol/L (3.4-5.1); Sodium 135 mmol/L (137-145); Total Protein 5.9 g/dL (6.3-8.2)
[2024-01-23] MEDS: PANTOPRAZOLE DR 40 MG TABLET PO ×2 (06:32→21:47)
--- NOTE | 2024-01-23 07:51 | P.PN_ITS ---
Subjective Subjective Interval history: S: He was having a lot of neck pain. He was [address] with significant output. He denies any dyspnea. No headache. He was also having a lot of insomnia. Exam Vital Signs (past 8 hours): - 01/23/24 00:00 01/23/24 02:10 01/23/24 04:00 Temperature 97.9 F 97.6 F Pulse Rate 86 86 Respiratory Rate 16 16 Blood Pressure 148/72 H 137/83 Pulse Oximetry 95 95 93 Oxygen Delivery Method Oxygen Flow Rate 0 0 0 01/23/24 06:00 Temperature Pulse Rate Respiratory Rate Blood Pressure Pulse Oximetry 93 Oxygen Delivery Method Room Air Oxygen Flow Rate 0 Fraction of Inspired Oxygen 24 SaO2/FiO2 Ratio 412 Oxygen Delivery Method Room Air Oxygen Flow Rate 0 Narrative Exam Narrative: NAD, alert and oriented. Fluent speech. Drain is in the left inferior neck region. Jacobo clear drainage in the SUMAN. Lungs are clear, normal rate and effort. Heart is regular, no murmur gallop or rub. Abdomen is soft, non distended. Extremities are free of edema. Objective Labs 01/23/24 04:10 01/23/24 04:10 Labs: Laboratory Results - last 24 hr 01/22/24 01/22/24 01/22/24 04:40 10:50 17:55 WBC RBC Hgb Hct MCV MCH MCHC RDW Plt Count Neut % (Auto) Lymph % (Auto) Liberty % (Auto) Eos % (Auto) Baso % (Auto) Neut # (Auto) Lymph # (Auto) Liberty # (Auto) Eos # (Auto) Baso # (Auto) Sodium 133 L 135 L Potassium 4.3 4.4 Chloride 97 L 99 Carbon Dioxide 27 28 BUN 10 10 Creatinine 0.58 L 0.76 Estimated GFR > 60 > 60 BUN/Creatinine Ratio 17.2 13.2 Glucose 309 H 189 H D Calcium 6.9 L 7.4 L Phosphorus 5.1 H Magnesium 1.7 Total Bilirubin AST ALT Alkaline Phosphatase Total Protein Albumin Globulin Albumin/Globulin Ratio 01/22/24 01/23/24 22:45 04:10 WBC 11.3 H RBC 3.50 L Hgb 9.3 L Hct 28.2 L MCV 80.4 MCH 26.4 MCHC 32.9 RDW 16.6 H Plt Count 526 H Neut % (Auto) 81.4 H Lymph % (Auto) 9.9 L Liberty % (Auto) 6.0 Eos % (Auto) 2.2 Baso % (Auto) 0.5 Neut # (Auto) 9200 H Lymph # (Auto) 1100 Liberty # (Auto) 700 Eos # (Auto) 200 Baso # (Auto) 100 Sodium 133 L 135 L Potassium 4.0 3.9 Chloride 99 101 Carbon Dioxide 30 29 BUN 11 9 Creatinine 0.68 0.66 Estimated GFR > 60 > 60 BUN/Creatinine Ratio 16.2 13.6 Glucose 245 H 175 H Calcium 6.9 L 6.8 L Phosphorus Magnesium Total Bilirubin 0.4 AST 18 ALT 10 Alkaline Phosphatase 93 Total Protein 5.9 L Albumin 3.3 L Globulin 2.6 Albumin/Globulin Ratio 1.3 PFSH Medical History Chronic low back pain Coronary artery disease Thyroid nodule Diabetes mellitus Atrial flutter with rapid ventricular response Sepsis Claudication in peripheral vascular disease History of cardioversion (03/07/21) Campylobacter enteritis Exocrine pancreatic insufficiency Acute dehydration Enteritis, enteropathogenic E. coli Paroxysmal atrial fibrillation Psoriasis Narcolepsy GERD (gastroesophageal reflux disease) Hyperlipidemia HTN (hypertension) Insulin dependent diabetes mellitus with complications Peripheral vascular disease Gastroenteritis Pancreatitis Atrial flutter with rapid ventricular response Surgical History History of epididymectomy Hx of biopsy History of femoropopliteal bypass H/O exploratory laparotomy Family History Father Colon cancer Mother Narcolepsy Grandmother Narcolepsy Social History household members: spouse Smoking Status: Former smoker alcohol intake: former Assessment & Plan Assessment & Plan narrative: 1. Hypocalcemia, present on admission and active. - likely due to recent neck surgery, may be causing presenting symptoms of nausea and vomiting, and can lead to dysphagia as well. - monitor calcium q6h, replace with calcium gluconate if <7.5. Will start oral repletion today as well. Calcium is up to 6.9 this afternoon. - PICC line placed for frequent draws. 2. Metastatic thyroid medullary carcinoma, present on admission and active. -recent neck dissect and resection including the left internal jugular. He was still has [address] 3. 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 Present on admission and active. - monitor drain output - CT scans no overt fluid collection or abscess, though there is diffuse fluid/edema 4. Aspiration pneumonia, present on admission and active. - continue zosyn - CT with LLL developing PNA - thick liquids only, he has not been eating solid foods. Some coughing with thick liquids per STATISTICAL ASSISTANT today, possible swallow study in the next few days, but hypocalcemia can effect swallow so will reassess as calcium continues to improve. 5. Opiate withdrawal, chronic pain with opiate dependence. Present on admission and active. - continue home morphine BID, with oxycodone as needed. Much improved today. 6. Hyponatremia, present on admission and active. - continue NS today, Na up to 133. Should be able to stop tomorrow. 7. Paroxysmal A-fib, present on admission and active. -currently in SR -continue metoprolol and pradaxa Chronic stable medical problems: # DM2 -low dose SSI -last A1c 8% # PAD s/p angioplasty and stent -continue home plavix # HTN -hold home medications. # HLD -continue home statin # insomnia -continue home trazodone # depression -continue home cymbalta Additional PLAN: -Lorazepam HS as needed sleep -Increased pain medications -Calcium 2 g IV -He would like hospice at home when he discharges. Code status is DNR. DVT prophylaxis with Pradaxa. Proxy is partner Yisel. DARRIUS: 01/25. Dispo: patient admitted under inpatient status, at least 2 midnights expected. Time-Based Coding :: [TOTAL MINUTES] spent with patient and on the chart (including review of chart, obtaining history, exam, reviewing outside data, placing orders, documenting exam and treatment plan, and counseling patient) on [DATE]. Quality VTE Deep Vein Thrombosis/Pulmonary Embolism Present on Admission: No
[2024-01-23] MEDS: INSULIN LISPRO 100 UNIT/ML 3ML VIAL SUBCUT ×3 (08:05→17:05)
[2024-01-23] MEDS: ONDANSETRON 4 MG/2 ML INJ IV (08:19)
[2024-01-23] MEDS: LIPASE/PROTEASE/AMYLASE 5/17/24 CAP 5 CAP PO ×3 (08:26→16:28)
[2024-01-23] MEDS: CALCIUM CARBONATE 500 MG TAB 1000 MG PO ×2 (08:26→21:46)
[2024-01-23] MEDS: CLOPIDOGREL 75 MG TABLET PO (08:26)
[2024-01-23] MEDS: DABIGATRAN 75 MG CAPSULE 150 MG PO ×2 (08:26→21:46)
[2024-01-23] MEDS: MORPHINE ER 15 MG TABLET PO ×2 (08:30→21:47)
[2024-01-23] MEDS: CALCIUM GLUCONATE 9.3 MEQ in SODIUM CHLORIDE 0.9% 50 ML 140 MEQ IV (08:50)
--- NOTE | 2024-01-23 09:20 | DIET.CONS ---
Dietary Consultation Note Admission Date: 01/21/2024 17:44 Assessment: 69 y M admitted for hypocalcemia. RD screened for low MNA score. Recent dx medullary thyroid cancer s/p neck surgery on 01/08/24. PROCESS SUPERVISOR recc pureed diet with liquids level 2 or 3 until MBSS d/t dysphagia. Last A1c was 8%. Met with pt at bedside who reports enjoying the foods here. Since surgery has been doing pureed diet with thickened liquids at home. Using survival equipment repairer for foods or making protein smoothies. No recent weight loss. DFM reviewed for meal composition. Ht: 177.8 cm Wt: 81.647 kg - weight possibly from Feb 2023, on 01/05/24 weight was 86.183 kg BMI: 25.8 UBW: Pt reports between 165-185 lb (75-84 kg) 88 kg on 11/21/23 Last BM: 01/23/24 (01/23/24 09:00) MNA: 8 Todd Score: 20 Diet: 01/21/24 Dinner Dysphagia Diet Diet Modifications: nectar thick liquids Food Texture: Level 4 - Pureed Liquid Consistency: Level 3 -Moderately Thick Nutrition Percent Meal Consumed 50% 01/23/24 09:00 Percent Meal Consumed 75% 01/22/24 18:00 Labs: RBC 3.50 X10^6/uL (4.5-5.9) L 01/23/24 04:10 Hgb 9.3 g/dL (13.5-17.5) L 01/23/24 04:10 Hct 28.2 % (41-53) L 01/23/24 04:10 Creatinine 0.66 mg/dL (0.66-1.25) 01/23/24 04:10 Lactate 1.4 mmol/L (0.7-2.1) 01/21/24 11:20 NT-Pro-B Natriuret Pep 51 pg/mL (<125) 01/21/24 11:20 Nutrition Diagnosis: Swallowing difficulty r/t swallow function changes s/p neck surgery aeb PROCESS SUPERVISOR recc diet of pureed food and moderately thick liquids Interventions: 1. Continue with pureed protein sources at each meal, protein supplementation he tolerates available as needed EER: 2000 kcals (25 kcals/kg per BMI) 80 g protein (1g/kg per age) Monitoring/Evaluations: PO intakes Electronically Signed by: Liliana Olson 01/23/24 09:20 Clinical Dietitian [address] [address]
[2024-01-23] MEDS: diphenhydrAMINE 25 MG TABLET 50 MG PO (09:36)
--- NOTE | 2024-01-23 11:46 | ST.IPDYTX ---
Visit Care Team Role Provider Type Eric Huang MD Primary Care Provider Physician Specialty: Family Practice Address: [address] [place] [address], [id number] Email: [email or web address] LEDY Razo Family Provider Non-Staff Specialty: Medical Address: [address] [place] [address] [address], [place], [address] Email: Laina Andres DO Emergency Provider Physician Referring Provider Specialty: Emergency Medicine Address: [address] [place] [address], [address] Email: [email or web address] Brian Roy DO Admit Provider Physician Attending Provider Specialty: Internal Medicine Address: [address] [place] [address], [id number] Email: [email or web address] ASSISTANT SALES DIRECTOR Dysphagia Treatment ASSISTANT SALES DIRECTOR Dysphagia Treatment Start: 01/22/24 10:52 Freq: Status: Active Protocol: Document 01/23/24 10:55 CG (Rec: 01/23/24 10:56 CG [id number]) Dysphagia Treatment Session Time Visit Start Time 10:55 Visit Stop Time 11:25 Total Visit Minutes 30 Visit Information Visit Number 2 Setting Assessment Location Acute Care Patient Information Subjective Observations Nursing reports pt has been tolerating current diet well. Upon ST entry to room, pt was sitting partially reclined in bed awake, alert, and fully oriented. Cognition and communication remain excellent . Mild hoarseness continues. No baseline cough noted today. Pt is eager to keep with safest recommendations and states he wants to avoid developing recurring aspiration PNA. He is aware of plan for MBSS tomorrow. Pt reported that he feels like nectar thick liquids (IDDSI 2) have been tricky for him and he is nervous that he is aspirating. Instead, nursing has provided honey thick ( IDDSI 3) liquids, which pt states is going down just fine . He reports no difficulty with puree solids and has been eating all of his meals despite modified texture. He also appears to be regularly consuming thickened liquids to remain hydrated. Treatment Liquids Trialed Thin (IDDSI 0),Mildly Thick ( IDDSI 2) Solids Trialed Purred (IDDSI 4) Treatment Activities Therapeutic trials of nectar thick liquids (IDDSI 2), honey thick liquids (IDDSI 3), and puree/pudding solids (IDDSI 4) to determine least restrictive safe diet. Verbal cues to improve form with right head turn strategy. Discussed POC and reviewed current recommendations. The IDDSI Framework Protocol: IDDSI.1 Assessment Patient Response to Treatment Good Rehab Potential Good Assessment of Improvement Pt independently utilized right head turn throughout trials. Initially, head turn was minimal. ASSISTANT SALES DIRECTOR cued increased rotation which resulted in pt stating he felt the swallow was easier to control. Additionally, pt utilized cough + re-swallow strategy approximately 75% of the time independently. Trials of nectar liquids ( IDDSI 2) x 3 resulted in no overt s/sx aspiration; however , pt verbally stated that he felt as though these liquids are hard to control and feels that some goes down his airway . Trials of honey liquids ( IDDSI 3) x 3 resulted in no overt s/sx aspiration and pt reported no difficulty with swallowing this viscosity. Trials puree/IDDSI 4 ( applesauce) x3 were tolerated with no overt s/sx aspiration, and pt reported no difficulty with the swallow. He states applesauce is one of the easiest foods for him to swallow at this time. Trials chocolate pudding (IDDSI 4) resulted in mild to moderate difficulty with A-P lingual propulsion and swallow initiation. Pt required double swallow to clear bolus. After completion of double swallow, no overt s/sx aspiration were noted. Based on pt report of feeling loss of control with nectar thick/ IDDSI 2 liquids compared to honey thick/IDDSI 3 liquids, ASSISTANT SALES DIRECTOR to change orders to IDDSI 3 liquids and puree/IDDSI 4 solids, pending new recommendations based on MBSS tomorrow. Pt also states that he is having difficulty initiating swallows of his saliva. Encouraged pt to allow larger bolus of saliva to gather in order to increase sensory input to trigger pharyngeal swallow, and/or focus on pressing tongue to roof of mouth to initiate swallow sequence. Recommendations Recommendations Downgrade Liquid Order Liquids Order Moderately Thick (IDDSI 3) Diet Order Pureed (IDDSI 4) Medication Recommendations Whole in Carrier,Crushed in Carrier Aspiration Precautions Recommended Precautions Double Swallow,Right Head Turn Additional Precautions cough and reswallow Treatment Plan Placement Recommendation after Discharge Home Appropriate for Continued Therapy Yes Follow Up Plan update recommendations pending MBSS tomorrow
--- NOTE | 2024-01-23 11:46 | SLP.IPNOTE ---
POUCH MAKING MACHINE OPERATOR updated diet recommendations as of 01/23/24 11:30am: 1. Liquid order is changed to moderately thick/honey thick liquids (IDDSI 3). 2. Continue puree solids. 3. Continue with precautions including upright positioning, right head turn, cough + re-swallow. 4. Pt scheduled for MBSS tomorrow at 11:00am. Recommendations to be updated pending results of MBSS.
[2024-01-23 12:10] LABS: Ionized Calcium 3.2 mg/dL (4.5-5.6)
--- NOTE | 2024-01-23 13:50 | CM.DPNOTE ---
DCP Cont Patient requested to meet with CUSTOMER SOLUTIONS COORDINATOR to discuss discharge plan. Patient has discussed hospice care with Dr Moreno and with his and family. Patient would like this CUSTOMER SOLUTIONS COORDINATOR to make a referral to [facility] on his behalf. Patient declines the need for DME and would like the info visit to go through him, he can then discuss with his . Patient wonders if his [facility] provider, LED[facility] Goldman at the [facility], can follow his medical care while he is on hospice services. Placed call to [facility], spoke with Sarah. Discussed referral. Explained that expected date of discharge is 01/25. Sarah anticipates a delay in start of care until early next week. Requested that patient be contacted for the info visit. In addition, asked if [facility] provider can manage patient's care while on hospice? Sarah plans to review this referral and get addtl. info about [facility] provider question. NICOLAS Grimes, has agreed to send clinical. Updated patient with above. Plan: Discharge home w/supportive family once medically stable to do so, transport via family, [facility] to follow- referral initiated 01/22. CM team following closely for coordination. SHERI
[2024-01-23] MEDS: DULOXETINE 30 MG CAPSULE 120 MG PO (15:36)
[2024-01-23] MEDS: HYDROMORPHONE 2 MG TABLET 6 MG PO ×2 (15:37→18:20)
[2024-01-23] MEDS: SENNOSIDES 8.6 MG TABLET PO (16:28)
[2024-01-23] MEDS: TRAZODONE 50 MG TABLET PO (21:46)
[2024-01-23] MEDS: INSULIN GLARGINE 100 UNIT/ML 3ML PEN 10 UNIT SUBCUT (21:47)
[2024-01-23] MEDS: LORazepam 1 MG TABLET PO (22:16)
[2024-01-24] MEDS: HYDROMORPHONE 2 MG TABLET 6 MG PO ×3 (03:11→12:29)
[2024-01-24] MEDS: PIPERACILLIN/TAZO 3.375 GM in SODIUM CHLORIDE 0.9% 100 ML IV ×3 (03:11→20:11)
[2024-01-24] MEDS: PANTOPRAZOLE DR 40 MG TABLET PO ×3 (06:17→21:56)
[2024-01-24 06:36] LABS: Add Manual Diff / Slide Review NO; Basophils Absolute Auto 0 /uL (0-100); Basophils Percent Auto 0.5 % (0-2); Eosinophils Absolute Auto 500 /uL (0-450); Eosinophils Percent Auto 6.9 % (2-4); Hematocrit 29.4 % (41-53); Hemoglobin 9.7 g/dL (13.5-17.5); Lymphocytes Absolute Auto 900 /uL (1100-4500); Mean Corpuscular Hemoglobin 26.5 PG (26-34); Mean Corpuscular Volume 80.5 fL (80-100); Monocytes Absolute Auto 400 /uL (0-900); Monocytes Percent Auto 6.1 % (3-14); Neutrophils Absolute Auto 5200 /uL (1500-7000); Neutrophils Percent Auto 73.5 % (50-75); Platelet Count 525 X10^3/uL (150-400); Red Blood Cell Count 3.65 X10^6/uL (4.5-5.9); Red Cell Distribution Width 16.4 % (11.6-14.8); White Blood Cell Count 7.1 X10^3/uL (4.5-11.0)
[2024-01-24 06:41] LABS: Alanine Aminotransferase 9 IU/L (<50); Albumin 3.4 g/dL (3.5-5.0); Albumin Globulin Ratio 1.4 (1.0-2.8); Alkaline Phosphatase 92 U/L (38-126); Aspartate Aminotransferase 14 IU/L (17-59); BUN Creatinine Ratio 7.1 (6-22); Bilirubin Total 0.3 mg/dL (0.2-1.3); Blood Urea Nitrogen 4 mg/dL (9-20); Carbon Dioxide 29 mmol/L (22-32); Chloride 102 mmol/L (98-107); Estimated Glomerular Filt Rate > 60 mL/min (>60); Globulin 2.5 g/dL (1.7-4.1); Glucose 188 mg/dL (80-110); HEMOLYSIS < 15 (0-50); Potassium 3.8 mmol/L (3.4-5.1); Sodium 136 mmol/L (137-145); Total Protein 5.9 g/dL (6.3-8.2)
[2024-01-24 07:00] VITALS: O2SAT 97
--- NOTE | 2024-01-24 07:39 | PM.PN.1 ---
Subjective Subjective Interval history: Summary: S: He had a good night sleep. He has good pain control. He spoke to his treatment team at the [facility] and they want to see what treatment options are available and potentially hold him at our hospital for several more days and then transfer him down to their hospital. I have given him my phone information and asked him to share this with his care team so I can be in touch with his doctors today. He was a modified barium swallow scheduled for today. Exam Vital Signs (past 8 hours): - 01/24/24 06:02 Oxygen Delivery Method Room Air Fraction of Inspired Oxygen 24 SaO2/FiO2 Ratio 412 Oxygen Delivery Method Room Air Oxygen Flow Rate 0 Narrative Exam Narrative: NAD, alert and oriented. Fluent speech. Lungs are clear, normal rate and effort. Heart is regular, no murmur gallop or rub. Abdomen is soft, non distended. Extremities are free of edema. Left neck SUMAN drain. Objective Labs 01/24/24 06:23 01/24/24 06:23 Labs: Laboratory Results - last 24 hr 01/21/24 01/24/24 22:50 06:23 WBC 7.1 RBC 3.65 L Hgb 9.7 L Hct 29.4 L MCV 80.5 MCH 26.5 MCHC 33.0 RDW 16.4 H Plt Count 525 H Neut % (Auto) 73.5 Lymph % (Auto) 13.0 L Major % (Auto) 6.1 Eos % (Auto) 6.9 H Baso % (Auto) 0.5 Neut # (Auto) 5200 Lymph # (Auto) 900 L Major # (Auto) 400 Eos # (Auto) 500 H Baso # (Auto) 0 Sodium 136 L Potassium 3.8 Chloride 102 Carbon Dioxide 29 BUN 4 L Creatinine 0.56 L Estimated GFR > 60 BUN/Creatinine Ratio 7.1 Glucose 188 H Calcium 7.0 L Ionized Calcium Beau 3.2 L Total Bilirubin 0.3 AST 14 L ALT 9 Alkaline Phosphatase 92 Total Protein 5.9 L Albumin 3.4 L Globulin 2.5 Albumin/Globulin Ratio 1.4 PFSH Medical History Chronic low back pain Coronary artery disease Thyroid nodule Diabetes mellitus Atrial flutter with rapid ventricular response Sepsis Claudication in peripheral vascular disease History of cardioversion (03/07/21) Campylobacter enteritis Exocrine pancreatic insufficiency Acute dehydration Enteritis, enteropathogenic E. coli Paroxysmal atrial fibrillation Psoriasis Narcolepsy GERD (gastroesophageal reflux disease) Hyperlipidemia HTN (hypertension) Insulin dependent diabetes mellitus with complications Peripheral vascular disease Gastroenteritis Pancreatitis Atrial flutter with rapid ventricular response Surgical History History of epididymectomy Hx of biopsy History of femoropopliteal bypass H/O exploratory laparotomy Family History Father Colon cancer Mother Narcolepsy Grandmother Narcolepsy Social History household members: spouse Smoking Status: Former smoker alcohol intake: former Assessment & Plan Assessment & Plan narrative: 1. Hypocalcemia, present on admission and active. 2. Metastatic thyroid medullary carcinoma, present on admission and active. -recent neck dissect and resection including the left internal jugular. He was still has [address] 3. 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 Present on admission and active. 4. Aspiration pneumonia, present on admission and active. - continue zosyn - CT with LLL PNA. - MBS today. 5. Opiate withdrawal, chronic pain with opiate dependence. Present on admission and improved. 6. Hyponatremia, present on admission and active. 7. Paroxysmal A-fib, present on admission and active. -currently in SR -continue metoprolol and pradaxa Chronic stable medical problems: # DM2 -low dose SSI -last A1c 8% # PAD s/p angioplasty and stent -continue home plavix # HTN -hold home medications. # HLD -continue home statin # insomnia -continue home trazodone # depression -continue home cymbalta Additional PLAN: -Lorazepam HS as needed sleep -Increased pain medications (PO hydromorphone) -Calcium 2 g IV 01/22 and 01/23 -modified barium swallow today. -modified diet in the interim. -coordinate care with his cancer team at [facility]. DARRIUS: unclear. Code status is DNR. DVT prophylaxis with Pradaxa. Proxy is partner Yisel. Time-Based Coding :: [TOTAL MINUTES] spent with patient and on the chart (including review of chart, obtaining history, exam, reviewing outside data, placing orders, documenting exam and treatment plan, and counseling patient) on [DATE]. Quality VTE Deep Vein Thrombosis/Pulmonary Embolism Present on Admission: No
[2024-01-24 08:00] VITALS: BP 141/88; PULSE 84; RESP 16; TEMP 36.4; O2SAT 97
[2024-01-24 08:11] LABS: Parathyroid Hormone Int 25 pg/mL (15-65)
[2024-01-24] MEDS: LIPASE/PROTEASE/AMYLASE 5/17/24 CAP 5 CAP PO ×3 (08:29→17:15)
[2024-01-24] MEDS: DICLOFENAC 1% GEL 100 GM 1 APPLIC TOP ×4 (08:29→21:43)
[2024-01-24] MEDS: DULOXETINE 30 MG CAPSULE 120 MG PO (08:30)
[2024-01-24] MEDS: CALCIUM CARBONATE 500 MG TAB 1000 MG PO ×2 (08:32→21:41)
[2024-01-24] MEDS: DABIGATRAN 75 MG CAPSULE 150 MG PO ×2 (08:33→21:42)
[2024-01-24] MEDS: CLOPIDOGREL 75 MG TABLET PO (08:33)
[2024-01-24] MEDS: MORPHINE ER 15 MG TABLET PO ×2 (08:33→21:42)
[2024-01-24] MEDS: INSULIN LISPRO 100 UNIT/ML 3ML VIAL SUBCUT ×4 (08:35→21:43)
[2024-01-24] MEDS: SODIUM CHLORIDE 0.9% FLUSH 10 ML IV ×2 (08:37→21:56)
--- NOTE | 2024-01-24 10:56 | CM.DPNOTE ---
DCP Note POSTDOCTORAL RESEARCH ASSOCIATE reviewed EMR. Per RN/provider note/in morning rounds, pt coordinating with oncologist at [facility]/with [facility] and wants to hold off on [facility] consult until they have oncology plan in place. May transfer to [facility]. Medical POC pending. POSTDOCTORAL RESEARCH ASSOCIATE met with pt in room, confirmed wanting to hold off on official [facility] referral but still would like a phone info visit. Deny any DCP needs at this time. POSTDOCTORAL RESEARCH ASSOCIATE lvm with Leni at [facility] with updates. P: medical POC continues, likely transfer to ONC in [facility] once plan is coordinated between our providers/theirs. CM team will continue to follow closely RIMA Burrell
[2024-01-24] MEDS: CALCIUM GLUCONATE 9.3 MEQ in SODIUM CHLORIDE 0.9% 50 ML 140 MEQ IV (12:29)
--- NOTE | 2024-01-24 13:50 | ST.SWALLOW ---
Visit Care Team Role Provider Type Eric Huang MD Primary Care Provider Physician Specialty: Family Practice Address: [address] [place] [address], [address] Email: [email or web address] Razo Family Provider Non-Staff Specialty: Medical Address: [address] [place] [address], [place], [address] Email: Laina Andres DO Emergency Provider Physician Referring Provider Specialty: Emergency Medicine Address: [address] [place] [address], [address] Email: [email or web address] Roy DO Admit Provider Physician Attending Provider Specialty: Internal Medicine Address: [address] [place] [address], [address] Email: [email or web address] Modified Barium Swallow Study RESIDENT SERVICES COORDINATOR Modified Barium Swallow Study Start: 01/24/24 12:13 Freq: Status: Active Protocol: Document 01/24/24 12:16 LNK (Rec: 01/24/24 13:50 LNK [id number]) Modified Barium Swallow Study Total Time Visit Start Time 11:30 Visit Stop Time 12:00 Total Visit Minutes [address] Roy/Dr Moreno Reason for Referral dysphagia/ aspiration risk Setting Setting Acute Care Patient Information Identification Type Name,Date of Patient History Pt was seen for a Modified Barium Swallow Study secondary to recent surgery to neck and to determine safety for PO intake. Pt was initially admitted 01/21/2024 with nausea and vomiting and was found to have hypocalcemia and suspected aspiration pneumonia. PMH includes GERD, chronic pancreatitis, CAD, HLD , chronic pain and opiate dependence, and recent diagnosis of medullary thyroid cancer s/p extensive neck surgery at the [facility] (removal of thyroid and resection of a portion of the jugular vein) two weeks ago. Per H&P on , his neck and chest pain are worse because he cannot keep his medications down. Per pt report, he had completed an MBSS during his hospitalization which showed aspiration of liquids, though has was able to clear aspirated thickened liquids and solids from his airway with strong cough. He reports recommended diet was nectar thick liquids and puree textures. Recently, pt reported to ST that he thought NTL/mildly (IDDSI 2) thick were difficult to control when swallowed. ST downgraded liquids to HTL/Moderately thick (IDDSI 3) with purree texture (IDDSI 4). ST had instructed pt to turn head to right to reduce aspiration risk when swallowing. Subjective Observations Pt was seated in the fluoroscopy chair with directions and procedures described for him. He indicated he understood and agreed to proceed. Patient Positioning Position View Lateral Imaging Lateral View Textures Administered Trials Presented Thin Liquid via Spoon (IDDSI 0 ),Mildly Thick Liquid via Spoon (IDDSI 2),Moderately Thick Liquid via Spoon (IDDSI 3),Extremely Thick Liquid via Spoon (IDDSI 4),Puree (IDDSI 4 ),Soft & Bite-sized (IDDSI Barium Tablet No The IDDSI Framework Protocol: IDDSI.1 Oral Impairment Source: The Modified Barium Swallow Impairment Profile (MBSImP??) Lip Closure No labial escape Tongue Control During Bolus Hold Cohesive bolus between tongue to palatal seal Bolus Preparation/Mastication Timely & efficient chewing & mashing Bolus Transport/Lingual Motion Brisk tongue motion Oral Residue Complete oral clearance Initiation of Pharyngeal Swallow Bolus head in valleculae Additional Oral Impairment Observations *OME and DKS were observed to be WNL. *Dentition natural and in good hygiene *Mastication observed with rotary chew pattern. *Good bolus formation, control and AP transition. Pharyngeal Impairment Source: The Modified Barium Swallow Impairment Profile (MBSImP??) Soft Palate Elevation No bolus between soft palate & pharyngeal wall Laryngeal Elevation Comp.sup.move.thyroid cart.w/ comp.approx.arytenoids to epiglot petiole Anterior Hyoid Excursion Complete anterior movement Epiglottic Movement Partial inversion Laryngeal Vestibular Closure Complete; no air/contrast in laryngeal vestibule Pharyngeal Stripping Wave Present - diminished Pharyngoesophageal Segment Opening Minimal distension/minimal duration; marked obstruction of flow Tongue Base Retraction Wide column of contrast/air betwn tongue base & post. pharyngeal wall Pharyngeal Residue Collection of residue within/ on pharyngeal structures Location Valleculae Additional Pharyngeal Impairment *Hyolaryngeal elevation and Observations movement WNL *Reduced epiglottal inversion with reduced posterior pharyngeal wall stripping ( possibly related to overall swelling) *Reduced base of tongue retraction strength *Overall pharyngeal muscle weakness results in the need for 2-3 swallows per bit/sip in order to clear bolus from valeculla (possibly related to overall swelling) *Laryngeal penetration observed x1 with chin tuck ( not effective strategy) *No tracheal aspiration observed across all trials *Post swallow cough by pt is good airway protection strategy while pt heals from surgery *UES extension and duration observed to be restricted requiring 2-3 swallows per bolus( possibly related to overall swelling) A/P View The IDDSI Framework Protocol: IDDSI.1 A/P View Observations Additional A-P Observations No AP view attempted Clinical Impressions Dysphagia Type Pharyngeal Findings *Pt presents with oral phase of swallow WNL and moderately impaired pharyngeal phase of swallowing most likely related to overall pharyngeal swelling. *Pt was able to safely tolerate modified diet for PO intake without s/sx aspiration . This is an improvement from MBSS report reported from 2 weeks ago at [facility] Continued improvement is anticipated. *Pt was able to swallow safely in a head forward position. *Pt requires 2-3 swallows per bite with swallow initiation difficult at times per pt report. *Post swallow cough by pt aids in overall aspiration risk reduction. *Pt safely tolerated soft diet /minced and moist (IDDSI 5) texture trial and nectar thick /mildly thick liquids (IDDSI 2 ). *Continued therapy for swallowing is recommended *Vocal adduction therapy recommended re: vocal fold weakness and hoarse vocal quality (likely related to suspected recurrent laryngeal nerve damage during surgery *Pt is very motivated and compliant with therapeutic strategies as directed. Rehabilitation Potential Excellent Patient Appropriate for Therapy Yes Recommendations Diet Liquids Order Mildly Thick (IDDSI 2) Diet Order Minced & Moist (IDDSI 5) Medication Recommendation Crushed in Carrier Additional Dietary Needs Reminders to Use Strategies Aspiration Precautions Recommended Precautions Small Bites/Sips,Double Swallow Treatment Plan Therapy Recommendations Inpatient Speech Therapy, Outpatient Speech Therapy,Base of Tongue Exercises Additional Recommended Referrals Therapy Strategy Recommendations Double Swallow,No Straw, Liquids from Cup, Liquids from Spoon Additional Strategies Recommended
--- NOTE | 2024-01-24 13:58 | ST.IPDYTX ---
Visit Care Team Role Provider Type Eric Huang MD Primary Care Provider Physician Specialty: Family Practice Address: [address] [place] [address], [id number] Email: [email or web address] Razo Family Provider Non-Staff Specialty: Medical Address: [address] [place] [address], [place], [address] Email: Laina Andres DO Emergency Provider Physician Referring Provider Specialty: Emergency Medicine Address: [address] [place] [address], [address] Email: [email or web address] Brian Roy DO Admit Provider Physician Attending Provider Specialty: Internal Medicine Address: [address] [place] [address], [address] Email: [email or web address] CONSULTANT Dysphagia Treatment CUSTOMER RELATIONS CONSULTANT Dysphagia Treatment Start: 01/22/24 10:52 Freq: Status: Active Protocol: Document 01/24/24 12:16 DESIREEK (Rec: 01/24/24 13:50 DESIREEK [id number]) Dysphagia Treatment Session Time Visit Start Time 11:30 Visit Stop Time 12:00 Total Visit Minutes 30 Setting Assessment Location Acute Care Visit Type Note Type Treatment Note Next Note Type Next Note Type Treatment Note Patient Information Identification Type Name,Date of Subjective Observations Pt seen for follow up of MBSS results and recommendations MD and nursing updated of results. Pt is alert, cognizant, cooperative Treatment Liquids Trialed Mildly Thick (IDDSI 2), Moderately Thick (IDDSI 3, Extremely Thick (IDDSI 4) Solids Trialed Purred (IDDSI 4),Soft & Bite- sized (IDDSI 6) Administration Type Tea Spoon Oral Strategies Upright at 90 degrees,Double Swallow,Controlled Bite/Sip Size Pharyngeal Strategies Sitting Upright (90 deg), Double Swallow, Supersupraglottic Swallow Additional Dysphagia Treatment Pt instructed to turn head if Strategies he feels swallowing is difficult. Treatment Activities Discussed the results of today 's MBSS with MD, nursing and pt/pt family. Reviewed strategies trialed: Head turn to right was viewed as a safe strategy; however pt was able to safely tolerate all trials (by spoonful) with head forward position. 2-3 swallows needed to clear valecullar pooling. Chin tuck not effective. Volitional cough after swallows as a cautionary strategy to reduce aspiration risk discussed. 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 Pt able to adduct folds; however strength and endurance is weak . Vocal adduction exercises described to pt with pt demonstrating ability to perform. Recommend 3-5 sets of 20 adduction presses each day . Also recommend ENT referral when indicated. The IDDSI Framework Protocol: IDDSI.1 Assessment Patient Response to Treatment Excellent Rehab Potential Excellent Assessment of Improvement No s/sx of aspiration observed . Penetration x1 with chin tuck Recommendations Recommendations Upgrade Diet Order Liquids Order Mildly Thick (IDDSI 2) Diet Order Minced & Moist (IDDSI 5) Medication Recommendations Crushed in Carrier Aspiration Precautions Recommended Precautions Upright at 90 Degrees,Double Swallow Treatment Plan Appropriate for Continued Therapy Yes Dysphagia Goals Patient will safely tolerate least restrictive diet consistency without overt s/sx of aspiration in order to meet nutrition and hydration needs and mitigate risk of developing aspiration pneumonia.
[2024-01-24] MEDS: HYDROMORPHONE 2 MG TABLET 8 MG PO ×3 (14:34→20:06)
[2024-01-24 19:55] VITALS: BP 149/95; PULSE 105; RESP 18; TEMP 35.9; O2SAT 97
[2024-01-24] MEDS: TRAZODONE 50 MG TABLET PO (21:42)
[2024-01-24] MEDS: LORazepam 1 MG TABLET PO (21:42)
[2024-01-24] MEDS: INSULIN GLARGINE 100 UNIT/ML 3ML PEN 10 UNIT SUBCUT (21:44)
[2024-01-25] MEDS: PIPERACILLIN/TAZO 3.375 GM in SODIUM CHLORIDE 0.9% 100 ML IV ×2 (04:10→12:26)
[2024-01-25] MEDS: HYDROMORPHONE 2 MG TABLET 8 MG PO ×3 (07:02→14:23)
[2024-01-25 07:37] LABS: Alanine Aminotransferase 8 IU/L (<50); Albumin 3.5 g/dL (3.5-5.0); Albumin Globulin Ratio 1.3 (1.0-2.8); Alkaline Phosphatase 85 U/L (38-126); Aspartate Aminotransferase 15 IU/L (17-59); BUN Creatinine Ratio 5.2 (6-22); Bilirubin Total 0.4 mg/dL (0.2-1.3); Blood Urea Nitrogen 3 mg/dL (9-20); Calcium 7.7 mg/dL (8.4-10.2); Carbon Dioxide 28 mmol/L (22-32); Chloride 102 mmol/L (98-107); Estimated Glomerular Filt Rate > 60 mL/min (>60); Globulin 2.7 g/dL (1.7-4.1); Glucose 165 mg/dL (80-110); HEMOLYSIS < 15 (0-50); Sodium 137 mmol/L (137-145); Total Protein 6.2 g/dL (6.3-8.2)
[2024-01-25 08:00] VITALS: BP 136/83; PULSE 87; RESP 15; TEMP 35.7; O2SAT 98
[2024-01-25] MEDS: LIPASE/PROTEASE/AMYLASE 5/17/24 CAP 5 CAP PO ×2 (08:26→12:28)
[2024-01-25] MEDS: MORPHINE ER 15 MG TABLET PO (08:45)
[2024-01-25] MEDS: DULOXETINE 30 MG CAPSULE 120 MG PO (08:45)
[2024-01-25] MEDS: CLOPIDOGREL 75 MG TABLET PO (08:46)
[2024-01-25] MEDS: DABIGATRAN 75 MG CAPSULE 150 MG PO (08:46)
[2024-01-25] MEDS: CALCIUM CARBONATE 500 MG TAB 1000 MG PO (08:46)
[2024-01-25] MEDS: INSULIN LISPRO 100 UNIT/ML 3ML VIAL SUBCUT ×2 (08:48→12:20)
[2024-01-25] MEDS: OXYCODONE IR 10 MG TABLET PO (08:56)
--- NOTE | 2024-01-25 09:34 | DIET.PN1 ---
Dietary Progress Note Assessment: Diet upgraded from pureed to minced and moist per TESTING SPECIALIST. Avg recorded po intakes 70%. DFM reviewed for meal composition. F/u with pt who reports he tolerated minced and moist breakfast today. Will monitor po intakes on minced and moist diet. Ht: 177.8 cm Wt: 81.647 kg BMI: 25.8 UBW: Last BM: 01/25/24 (01/25/24 06:00) MNA: 8 Todd Score: 21 Diet: 01/23/24 Lunch Dysphagia Diet Diet Modifications: honey thick liquids Food Texture: Level 4 - Pureed Liquid Consistency: Level 3 -Moderately Thick 01/24/24 Dinner Dysphagia Diet Diet Modifications: Ice cubes per free water protocol/oral cleansing Food Texture: Level 5 - Minced & Moist Liquid Consistency: Level 2 - Mildly Thick Nutrition Percent Meal Consumed 90 01/24/24 18:00 Percent Meal Consumed 80 01/24/24 09:00 Percent Meal Consumed 25% 01/23/24 18:20 Percent Meal Consumed 100% 01/23/24 13:53 Labs: RBC 3.65 X10^6/uL (4.5-5.9) L 01/24/24 06:23 Hgb 9.7 g/dL (13.5-17.5) L 01/24/24 06:23 Hct 29.4 % (41-53) L 01/24/24 06:23 Creatinine 0.58 mg/dL (0.66-1.25) L 01/25/24 07:01 Lactate 1.4 mmol/L (0.7-2.1) 01/21/24 11:20 NT-Pro-B Natriuret Pep 51 pg/mL (<125) 01/21/24 11:20 Electronically Signed by: Liliana Olson 01/25/24 09:34 Clinical Dietitian [address] [address]
[2024-01-25] MEDS: DICLOFENAC 1% GEL 100 GM 1 APPLIC TOP ×2 (10:00→14:00)
[2024-01-25] MEDS: ONDANSETRON 4 MG/2 ML INJ IV (11:10)
[2024-01-25] MEDS: SODIUM CHLORIDE 0.9% FLUSH 10 ML IV (11:20)
--- NOTE | 2024-01-25 12:16 | PM.DS.1 ---
History of Present Illness History of Present Illness Date Patient Seen: 01/25/24 Time Patient Seen: 09:35 Date of Onset of Symptoms: 02/21/24 Chief complaint: Can't keep his meds down Narrative: Narrative: This is a 68 year old male, with PMH of chronic pancreatitis, CAD, HLD, chronic pain and opiate dependence, recent diagnosis of medullary thyroid cancer s/p extensive neck surgery at the [place] (removal of thyroid and resection of a portion of the jugular vein) a couple of weeks ago who presents with nausea and vomiting, inability to keep medications down for the past day. He has neck pain and chest pain worse because he cannot keep his medications down. He denies diarrhea or overt abdominal pain. He has a neck drain which is draining small amounts of serosanguinous fluid. Labs showed elevated glucose at 274, no acidosis or anion gap. LA was 1.4. Calcium was 6.1, phos was 4.9. Repeat Calcium was 5.3. Albumin is 3.9. PTH is a send out. Discharge Providers Provider Date of admission: 01/21/24 17:44 Discharge Date: 01/25/24 Primary care physician: Eric Huang MD Consults: 01/21/24 19:00 Consult to Speech Therapy Evaluate & Treat Comment: recent issues with swallow Physician Instructions: Evaluate and treat 01/22/24 16:14 Consult to Speech Therapy Evaluate & Treat Comment: Physician Instructions: Evaluate and treat Discharge provider: Kristopher Ryan MD Summary Hospital Course Discharge Diagnosis: 1. Hypocalcemia 2. Metastatic thyroid medullary carcinoma 3. 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 Aspiration pneumonia 5. Opiate withdrawal, chronic pain and opiate dependence 6. Hyponatremia 7. Paroxysmal atrial fibrillation, in sinus rhythm during hospitalization 8. Diabetes mellitus, type 2 9. Peripheral arterial disease, status post angioplasty and stent 10. Hypertension 11. Hyperlipidemia 11. Depression 12. Insomnia Hospital Course: 69-year-old patient was admitted and administered IV calcium and antibiotics for hypocalcemia and aspiration pneumonia. He the was evaluated by speech therapy and underwent a modified barium swallow which demonstrated only laryngeal penetration with chin tuck, though had a productive cough reflex and was felt to be safe on a modified dysphagia diet. Care was coordinated with his [facility] team with tumor board discussion planned next week and outpatient ENT follow-up. He was feeling significantly better during his hospitalization. A left neck SUMAN drain continues to drain serous fluid 90-100 mL daily during his hospitalization. A sample for serum triglycerides was sent per request prior to discharge home. He was eating, tolerating a diet, and with normal formed bowel movements without abdominal pain during his hospitalization. His pain was adequately controlled and he was able to ambulate without limitation, interested in discharge home with outpatient follow-up. No other issues arose. Status at Discharge Cognitive/behavioral status at discharge: oriented Functional status at discharge: independent ambulation Overall status at discharge: patient is back to baseline Time Spent with Patient Time spent: Greater than 30 minutes Exam Vital Signs (past 8 hours): - 01/25/24 08:00 Temperature 96.3 F L Pulse Rate 87 Respiratory Rate 15 Blood Pressure 136/83 Pulse Oximetry 98 Oxygen Flow Rate 0 Fraction of Inspired Oxygen 24 SaO2/FiO2 Ratio 412 Oxygen Delivery Method Room Air Oxygen Flow Rate 0 Narrative Exam Narrative: NAD, alert and oriented. Fluent speech. Lungs are clear, normal rate and effort. Heart is regular, no murmur gallop or rub. Abdomen is soft, non distended. Extremities are free of edema. Left neck SUMAN drain. Objective Imaging +: Radiologist's impression: 1. Chest CT angiogram 01/21/2024: 1. No acute pulmonary emboli. 2. Developing pneumonia, left lower lobe, consider aspiration pneumonia. 3. Recent right thyroid bed surgery. Diffuse lower neck edema. Question lower neck adenopathy. 2. Soft tissue neck CT 01/21/2024: Extensive postoperative changes are seen, including thyroidectomy and removal of the left jugular vein. A left-sided postoperative drain is seen. Areas of poorly defined fluid can be seen within the neck, yet without a focal defined fluid collection seen to suggest a postoperative abscess. If clinically appropriate, please consider short-term follow-up. 3. Abdomen pelvis CT 01/21/2024: Mild mesenteric edema in the left upper quadrant and right lower quadrant, without abnormal bowel within this region. Additionally, there is linear soft tissue in the right lower quadrant, connecting 2 segments of bowel (series 2, image 118). Lastly, there is bilateral sacroiliitis. Together, findings are concerning for acute exacerbation of Crohn's disease, without evidence of prior fistula formation. Correlate with history and consider GI referral. Normal appendix. Colonic diverticulosis without evidence of diverticulitis. Ventral wall hernia containing a short segment of nonobstructed small bowel. 4. Chest x-ray 01/21/2024: Tip of PICC projects to the area of mid SVC. Labs 01/24/24 06:23 01/25/24 07:01 Labs: Laboratory Results - last 24 hr 01/25/24 07:01 Sodium 137 Potassium 4.0 Chloride 102 Carbon Dioxide 28 BUN 3 L Creatinine 0.58 L Estimated GFR > 60 BUN/Creatinine Ratio 5.2 L Glucose 165 H Calcium 7.7 L Total Bilirubin 0.4 AST 15 L ALT 8 Alkaline Phosphatase 85 Total Protein 6.2 L Albumin 3.5 Globulin 2.7 Albumin/Globulin Ratio 1.3 PFSH Medical History Chronic low back pain Coronary artery disease Thyroid nodule Diabetes mellitus Atrial flutter with rapid ventricular response Sepsis Claudication in peripheral vascular disease History of cardioversion (03/07/21) Campylobacter enteritis Exocrine pancreatic insufficiency Acute dehydration Enteritis, enteropathogenic E. coli Paroxysmal atrial fibrillation Psoriasis Narcolepsy GERD (gastroesophageal reflux disease) Hyperlipidemia HTN (hypertension) Insulin dependent diabetes mellitus with complications Peripheral vascular disease Gastroenteritis Pancreatitis Atrial flutter with rapid ventricular response Surgical History History of epididymectomy Hx of biopsy History of femoropopliteal bypass H/O exploratory laparotomy Family History Father Colon cancer Mother Narcolepsy Grandmother Narcolepsy Social History household members: spouse Smoking Status: Former smoker alcohol intake: former Discharge Plan Discharge Plan Patient Disposition: Home Provider Discharge Comment: Followup with Dr. Huang 1 week; [facility] next week to contact patient for appointment scheduling Discharge orders & Medications Prescriptions: New amoxicillin-pot clavulanate 875-125 mg tablet 1 tab PO BID Qty: 12 0RF Continued clopidogrel [Plavix] 75 mg Tablet 75 mg PO QAM Qty: 0 promethazine 25 mg tablet 25 mg PO Q4-6H PRN (Reason: diarrhea) promethazine 25 mg suppository 25 mg ND Q6H PRN (Reason: vomiting) metoprolol succinate 25 mg tablet extended release 24 hr 25 mg PO BID Creon 24,000-76,000 -120,000 unit capsule,delayed release(DR/EC) 1 cap PO QID Qty: 120 12RF Rx Instructions: administer with meals and/or snacks prn sliding scale. 1 capsule for every 600 calories morphine [MS Contin] 15 mg tablet extended release 30 mg PO .HS rosuvastatin 10 mg tablet 40 mg PO DAILY amlodipine 5 mg tablet 10 mg PO DAILY duloxetine [Cymbalta] 60 mg capsule,delayed release(DR/EC) 120 mg PO QAM ezetimibe 10 mg tablet 10 mg PO DAILY methylphenidate HCl 20 mg tablet 20 mg PO TID Qty: 90 0RF nitroglycerin 0.3 mg tablet, sublingual See Rx Instructions .ROUTE .COMPLEX Qty: 100 0RF Dose Instruction: PLACE 1 TABLET (0.3 MG TOTAL) UNDER THE TONGUE EVERY 5 (FIVE) MINUTES NEEDED FOR CHEST PAIN FOR UP TO 7 DAYS MAY REPEAT EVERY 5 MINUTES UP TO [address] Rx [address]ructions: PL[address] 1 TABLET (0.3 MG TOTAL) UNDER THE TONGUE EVERY 5 (FIVE) MINUTES NEEDED FOR CHEST PAIN FOR UP TO 7 DAYS MAY REPEAT EVERY 5 MINUTES UP TO 3 DOSES. acetaminophen [Pain Relief (acetaminophen)] 325 MG tablet 500 mg PO Q4HP PRN (Reason: Pain, Mild) dabigatran etexilate [Pradaxa] 150 mg Capsule 150 mg PO BID ondansetron 8 mg tablet,disintegrating 8 mg PO PRN PRN (Reason: nausea/vomiting) trazodone 50 mg Tablet 50 mg PO BEDTIME PRN (Reason: insomnia) Qty: 30 0RF Rx Instructions: can take 1/2 tab (25mg) if 50 is too strong ipratropium-albuterol inhaler 3 ml inhalation 4XD PRN (Reason: For shortness of breath) tadalafil 20 mg PO PRN PRN (Reason: 1hr before sexual activity) diphenhydramine HCl 12.5 mg/5 mL elixir 50 mg PO Q6H PRN (Reason: nausea and vomiting) insulin glargine 10 units SUBCUT QAM pantoprazole 40 mg Tablet,Delayed Release (Dr/Ec) 40 mg PO BID metoclopramide HCl [Reglan] 10 mg tablet 10 mg PO Q6H PRN (Reason: nausea and vomiting) Qty: 20 0RF oxycodone 7.5 mg tablet, oral only 5 mg PO Q4H PRN (Reason: pain) lisinopril 2.5 mg Tablet 2.5 mg PO QAM Follow up/Referrals: Eric Huang MD [Primary Care Provider] - Visit Report/Discharge Packet Stand Alone Forms: Patient Portal/API, Stroke Signs & Symptoms Discharge Data Primary Care Provider: Eric Huang Quality VTE Deep Vein Thrombosis/Pulmonary Embolism Present on Admission: No MIPS - Admit I confirm the patient?s Advance Care Plan is present, Code status is documented, Surrogate decision maker is in patient?s record [If Yes, STOP here]: Yes MIPS - Meds 'Current medications' to include all prescriptions, sypo-aaw-suoybsf products, herbals, cannabis/cannabidiol products, and vitamin/mineral/dietary (nutritional) supplements. I have utilized all available resources to obtain, update, or review the patient?s current medications. [If Yes, STOP here]: Yes MIPS - DC The patient has a history of heart transplant or Left Ventricular Assist Device (LVAD). If yes, STOP here.: No The patient has current or prior documentation of left ventricular ejection fraction (LVEF) less than or equal to 40%, or moderate or severely depressed left ventricular systolic function.: No A. The patient was prescribed or already taking an Angiotensin-Converting Enzyme (PETER) Inhibitor, or Angiotensin Receptor Sheri (ARB).: No B. The patient was prescribed or already taking a beta-sheri. [If Yes to Both A & B, STOP here]: No Patient not prescribed/taking PETER or ARB, no reason given.: No Patient not prescribed/taking beta-sheri, no reason given.: No PROFEE Charge Codes Discharge inpatient/observation: [id number]
--- NOTE | 2024-01-25 13:27 | ST.IPDYTX ---
Visit Care Team Role Provider Type Eric Huang MD Primary Care Provider Physician Specialty: Family Practice Address: [address] [place] [address], [id number] Email: [email or web address] Family Provider Non-Staff Specialty: Medical Address: [address] [place] [address], [place], [address] Email: Laina Andres DO Emergency Provider Physician Referring Provider Specialty: Emergency Medicine Address: [address] [place] [address], [id number] Email: [email or web address] Roy DO Admit Provider Physician Attending Provider Specialty: Internal Medicine Address: [address] [place] [address], [address] Email: [email or web address] PERSONALIZED LIVING MANAGER NURSE Dysphagia Treatment PERSONALIZED LIVING MANAGER NURSE Dysphagia Treatment Start: 01/22/24 10:52 Freq: Status: Active Protocol: Document 01/25/24 13:03 SS (Rec: 01/25/24 13:27 SS [id number]) Dysphagia Treatment Session Time Visit Start Time 12:35 Visit Stop Time 12:55 Total Visit Minutes 20 Visit Information Visit Number 3 Setting Assessment Location Acute Care Visit Type Note Type Treatment Note Next Note Type Next Note Type Treatment Note Patient Information Identification Type Name,Date of Subjective Observations Pt was sitting fully upright on edge of bed upon PERSONALIZED LIVING MANAGER NURSE arrival, eating his lunch. was at bedside. He was engaged and motivated to participate throughout. Treatment Liquids Trialed Moderately Thick (IDDSI 3 Solids Trialed Minced & Moist (IDDSI 5) Administration Type Controlled Cup Sip,Self- Feeding Oral Strategies Upright at 90 degrees,Double Swallow,Controlled Bite/Sip Size Pharyngeal Strategies Sitting Upright (90 deg), Double Swallow, Supersupraglottic Swallow Additional Dysphagia Treatment Pt instructed to turn head if Strategies he feels swallowing is difficult. Treatment Activities Reviewed MBSS results and recommendations for diet levels, compensatory strategies, and follow up with home health or outpatient speech therapy services as pt is discharging home this afternoon. The IDDSI Framework Protocol: IDDSI.1 Assessment Patient Response to Treatment Excellent Rehab Potential Excellent Assessment of Improvement PERSONALIZED LIVING MANAGER NURSE reviewed verbal and visual education re: normal swallow anatomy and physiology and compared this to pt?s current swallow function/anatomy/ physiology from recent MBSS. Reviewed difficulty with impaired pharyngeal phrase characterized by reduced epiglottal inversion with reduced posterior pharyngeal wall stripping (possibly related to overall swelling), reduced base of tongue retraction strength, pharyngeal muscle weakness, and restricted UES extension and duration, resulting in 2-3 swallows per bolus(possibly related to overall swelling) and laryngeal penetration x1 across trials. Pt and spouse expressed understanding of MBSS results. Pt and spouse expressed understanding of diet level recommendations. They have previously purchased thickener and have used it previously. Pt?s spouse expressed understanding of Minced and Moist diet level preparation. Provided handouts re: diet level and liquid consistency. Pt?s spouse with questions re: crushing medications in carrier which PERSONALIZED LIVING MANAGER NURSE notified MD of. Reviewed recommended compensatory strategies, including upright positioning, slow rate, small bites and sips, multiple swallows to clear potential pharyngeal residue, and post-swallow cough as needed to aid in airway protection. Additionally, recommended pt request PCP for referral for speech therapy services following discharge for dysphagia management. Pt and spouse were given the opportunity to ask questions and were provided with written instructions/recommendations as indicated. Recommendations Recommendations Continue Current Diet Liquids Order Mildly Thick (IDDSI 2) Diet Order Minced & Moist (IDDSI 5) Medication Recommendations Crushed in Carrier Additional Dietary Needs Reminders to Use Strategies Aspiration Precautions Recommended Precautions Upright at 90 Degrees,Double Swallow Additional Precautions cough and reswallow Treatment Plan Placement Recommendation after Discharge Home Appropriate for Continued Therapy No: Discharging home Dysphagia Goals Patient will safely tolerate least restrictive diet consistency without overt s/sx of aspiration in order to meet nutrition and hydration needs and mitigate risk of developing aspiration pneumonia. Referrals/Other Recommended Referrals Primary Care Physician
--- NOTE | 2024-01-25 13:34 | CM.DPNOTE ---
DCP Note SPA SUPERVISOR reviewed EMR. Per chart, pt cleared to dc home until f/u with oncology next week. barium swallow/current LANGUAGE AND LITERATURE DIVISION CHAIR rec mildly thick/minced and moist food, pills crushed into apple sauce/pudding. SPA SUPERVISOR met with pt and spouse in room. spouse expressed some concerns/questions about pt's medications/ability to swallow. RN in room answered questions/agreed to notify provider of additional questions to get some clarity. [facility] denies other CM/DCP needs or questions at this time. p: Home with spouse support today/OP oncology/PCP follow up. no identified barriers to safe dc home identified at this time. CM team will continue to follow as needed RIMA Burrell
--- NOTE | 2024-01-25 15:24 | DIET.CONS2 ---
Dietary Inpatient Consultation Note Admission Date: 01/21/2024 17:44 Provided pt thickener packet samples and handout on IDDSI Level 5 meal ideas and guidelines prior to d/c. Diet: 01/23/24 Lunch Dysphagia Diet Diet Modifications: honey thick liquids Food Texture: Level 4 - Pureed Liquid Consistency: Level 3 -Moderately Thick 01/24/24 Dinner Dysphagia Diet Diet Modifications: Ice cubes per free water protocol/oral cleansing Food Texture: Level 5 - Minced & Moist Liquid Consistency: Level 2 - Mildly Thick Nutrition Percent Meal Consumed 100% 01/25/24 11:44 Percent Meal Consumed 90 01/24/24 18:00 Percent Meal Consumed 80 01/24/24 09:00 Percent Meal Consumed 25% 01/23/24 18:20 Electronically Signed by: Jennifer Hercules 01/25/24 15:24 Clinical [address] [address]
--- NOTE | 2024-01-25 16:22 | PC.NURSE ---
Patient is cleared for discharge home with close follow up with his oncologist Sunday. He and verbalize understanding of discharge medications. SUMAN drain to neck intact. PICC line dc'd. Patient is escorted via W/Ch to [facility] and then to main entrance for discharge home today with all of his belongings, in private vehicle with at approximately 1505.
== END 2024-01-25 15:05 | disposition home or self-care (01) | DRG 871 ==
LOC: ED 17:36 → AC 17:45
PROVIDERS: Admitting Provider Internal Medicine; Emergency Provider Emergency Medicine; Family Provider Nurse Practitioner Family; PCP Family Medicine; Referring Provider Emergency Medicine; Visit Provider Internal Medicine
DX: A41.9 Sepsis, unspecified organism (principal); J18.9 Pneumonia, unspecified organism; J69.0 Pneumonitis due to inhalation of food and vomit; F11.23 Opioid dependence with withdrawal; E87.1 Hypo-osmolality and hyponatremia; C79.9 Secondary malignant neoplasm of unspecified site; E83.51 Hypocalcemia; I48.0 Paroxysmal atrial fibrillation; E11.9 Type 2 diabetes mellitus without complications; I73.9 Peripheral vascular disease, unspecified; I10 Essential (primary) hypertension; E78.5 Hyperlipidemia, unspecified; G47.00 Insomnia, unspecified; F32.A Depression, unspecified; C73 Malignant neoplasm of thyroid gland; E89.0 Postprocedural hypothyroidism; R13.19 Other dysphagia; S14.8XXA Injury of other specified nerves of neck, initial encounter; X58.XXXA Exposure to other specified factors, initial encounter; Z87.891 Personal history of nicotine dependence; Z66 Do not resuscitate; Z79.01 Long term (current) use of anticoagulants; Z95.820 Peripheral vascular angioplasty status with implants and grafts; Z98.890 Other specified postprocedural states; Z79.02 Long term (current) use of antithrombotics/antiplatelets; Z79.4 Long term (current) use of insulin
CPT/HCPCS: 36415; 36569; 70491; 71275; 74177; 74230; 80048; 80053; 81003; 82310; 82330; 82550; 82962; 83605; 83690; 83735; 83880; 83970; 84100; 84145; 84484; 85025; 87040; 92526; 92610; 92611; 93005; 94640; 96365; 96367; 96368; 96375; 96376; 99284; 99291; A9270; J0612; J1171; J1200; J1642; J1650; J1815; J2060; J2405; J2543; J2765; J2919; Q9967

== ENCOUNTER 2024-01-26 22:35 | Emergency (ER) | payer OTHER, SELFPAY ==
[2024-01-21 17:49] VITALS: BMI 25.8
[2024-01-26] VITALS (7 sets, daily range): BP systolic 102–133; BP diastolic 56–85; PULSE 83–87; RESP 13–26; TEMP 36.6; O2SAT 94–100
--- NOTE | 2024-01-26 22:45 | EKG_ITS ---
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
--- NOTE | 2024-01-26 22:49 | ED_ITS ---
HPI - Altered Mental Status General Chief Complaint: Altered Mental Status Stated Complaint: Decreased LOC Time Seen by Provider: 01/26/24 22:47 Source: EMS Mode of arrival: EMS History of Present Illness HPI narrative: 69-year-old male arrived by EMS with altered mental status, recent hospitalization for pneumonia, recent thyroid surgery. Diagnosis of thyroid cancer last month, status post thyroidectomy at [facility], taking oral calcium supplementation, right chest catheter drain still in place and draining, further follow up with Oncology and surgeon through the [place] system. Recent admission here at [facility] for pneumonia, recalls being treated with IV vancomycin and IV Zosyn antibiotics, discharged yesterday, with plan for 4 days further oral amoxicillin antibiotics. Taking his chronic medications including calcium supplementation, and chronic pain medications, also has history of chronic abdominal discomfort due to chronic pancreatitis. He was confused earlier this morning, no injury recalled, unclear if you might have taken additional chronic medications, transport by EMS, glucose reportedly or not low. Maintaining airway. No known shaking or seizure activity. No known drug or alcohol use. Related Data Home Medications Medication Instructions Recorded Confirmed clopidogrel 75 mg tablet (Plavix) 75 mg PO QAM ##0 04/15/08 01/22/24 acetaminophen 325 mg tablet (Pain 500 mg PO Q4HP PRN Pain, Mild 09/25/17 01/22/24 Relief (acetaminophen)) dabigatran etexilate 150 mg 150 mg PO BID 03/24/18 01/22/24 capsule (Pradaxa) lisinopril 2.5 mg tablet 2.5 mg PO QAM blood pressure 04/28/19 01/22/24 duloxetine 60 mg capsule,delayed 120 mg PO QAM 11/01/21 01/22/24 release (Cymbalta) ondansetron 8 mg disintegrating 8 mg PO PRN PRN nausea/vomiting 02/25/22 01/22/24 tablet morphine 15 mg tablet,extended 30 mg PO .HS 06/06/22 01/22/24 release (MS Contin) amlodipine 5 mg tablet 10 mg PO DAILY 01/19/23 01/22/24 rosuvastatin 10 mg tablet 40 mg PO DAILY 01/19/23 01/22/24 diphenhydramine HCl 12.5 mg/5 mL 50 mg PO Q6H PRN nausea and 06/01/23 01/22/24 oral elixir vomiting insulin glargine 10 units SUBCUT QAM 06/01/23 01/22/24 ipratropium-albuterol 3 ml inhalation 4XD PRN For 06/01/23 01/22/24 shortness of breath tadalafil 20 mg PO PRN PRN 1hr before sexual 06/01/23 01/22/24 activity pantoprazole 40 mg tablet,delayed 40 mg PO BID 06/06/23 01/22/24 release ezetimibe 10 mg tablet 10 mg PO DAILY 07/03/23 01/22/24 oxycodone 7.5 mg tablet,oral ONLY 5 mg PO Q4H PRN pain 11/21/23 01/22/24 (not for feeding tubes) metoprolol succinate 25 mg 25 mg PO BID 11/29/23 01/22/24 tablet,extended release 24 hr promethazine 25 mg rectal 25 mg OR Q6H PRN vomiting 11/29/23 01/22/24 suppository promethazine 25 mg tablet 25 mg PO Q4-6H PRN diarrhea 11/29/23 01/22/24 Previous Rx's Medication Instructions Recorded vabryl-mcdxpwxb-athiavg 1 cap PO QID #120 caps 03/15/20 24,000-76,000-120,000 unit capsule,delayed rel (Creon) trazodone 50 mg tablet 50 mg PO BEDTIME PRN insomnia #30 03/03/22 tabs metoclopramide HCl 10 mg tablet 10 mg PO Q6H PRN nausea and 11/01/23 (Reglan) vomiting #20 tabs methylphenidate HCl 20 mg tablet 20 mg PO TID #90 tabs 12/03/23 nitroglycerin 0.3 mg sublingual See Rx Instructions .Route 12/03/23 tablet .COMPLEX #100 ea amoxicillin 875 mg-potassium 1 tab PO BID #12 tabs 01/25/24 clavulanate 125 mg tablet Allergies Allergy/AdvReac Type Severity Reaction Status Date / Time Iodine and Iodide Containing Allergy Severe Blister Verified 01/21/24 16:34 Produc [IODINE AND IODIDE CONTAINING PRODUC] Sulfa (Sulfonamide Allergy Severe Anaphylaxis Verified 12/28/23 15:50 Antibiotics) [SULFA (SULFONAMIDE ANTIBIOTICS)] gabapentin AdvReac Intermediate Dizziness Verified 12/28/23 15:50 [id number] Reductase AdvReac Intermediate Verified 12/28/23 15:50 Inhibitor metformin AdvReac Mild Verified 12/28/23 15:50 Review of Systems Review of Systems Narrative: See HPI Patient History Medical History Chronic low back pain Coronary artery disease Thyroid nodule Diabetes mellitus Atrial flutter with rapid ventricular response Sepsis Claudication in peripheral vascular disease History of cardioversion (03/07/21) Campylobacter enteritis Exocrine pancreatic insufficiency Acute dehydration Enteritis, enteropathogenic E. coli Paroxysmal atrial fibrillation Psoriasis Narcolepsy GERD (gastroesophageal reflux disease) Hyperlipidemia HTN (hypertension) Insulin dependent diabetes mellitus with complications Peripheral vascular disease Gastroenteritis Pancreatitis Atrial flutter with rapid ventricular response Surgical History History of epididymectomy Hx of biopsy History of femoropopliteal bypass H/O exploratory laparotomy Family History Father Colon cancer Mother Narcolepsy Grandmother Narcolepsy Social History household members: spouse Smoking Status: Former smoker alcohol intake: former Smoking Status: Former smoker alcohol intake frequency: holidays/special occasions only Substance Use Type: marijuana Exam Narrative Exam Narrative: GENERAL: Well-developed patient, in mild distress. HEAD: Atraumatic. Normocephalic. EYES: Pupils equal round and reactive. Extraocular motions intact. No scleral icterus. No injection or drainage. ENT: Nose without bleeding, purulent drainage. Throat without erythema, tonsillar hypertrophy or exudate. Airway patent. NECK: Trachea midline. Non tender CARDIOVASCULAR: Regular rate and rhythm without murmurs, gallops, or rubs. RESPIRATORY: Clear to auscultation. Breath sounds equal bilaterally. No wheezes, rales, or rhonchi. Right upper anterior chest catheter site with SUMAN like drain in place, no redness or crepitance. GASTROINTESTINAL: Central abdominal discomfort, no guarding or rebound tenderness, nondistended, unremarkable bowel tones EXTREMITIES: No edema or joint tenderness. BACK: Nontender without deformity or crepitance. No flank tenderness. NEURO: AOx3. Motor functions grossly nonfocal SKIN: No rash or erythema of visible areas Initial Vital Signs Initial Vital Signs: Vital Signs Temperature 98 F 01/26/24 22:40 Pulse Rate 83 01/26/24 22:40 Respiratory Rate 19 01/26/24 22:40 Blood Pressure 133/85 01/26/24 22:40 Pulse Oximetry 100 01/26/24 22:40 Oxygen Delivery Method Room Air 01/26/24 22:40 Course Orders Ordered: ED Orders 01/26/24 22:45 EKG-12 Lead Stat 01/26/24 22:50 Acetaminophen Stat Ammonia (NH3) Stat Complete Blood Count AUTO DIFF Stat Comprehensive Metabolic Panel Stat Ethanol (ETOH) Stat Lactate (Lactic Acid) Stat PTT Partial Thromboplastin Shravan Stat Prolactin Stat Prothrombin Time INR Stat Salicylate Stat Thyroid Stimulating Hormone Stat 01/26/24 22:51 EKG-12 Lead Stat 01/26/24 23:12 CT head/brain wo con Stat 01/26/24 23:20 Urinalysis and Microscopic Stat Urine Culture Stat Urine Drug Screen, Rapid Stat 01/26/24 23:35 Blood Culture Stat Osmolality, Serum Stat Type and Screen Stat Discontinued Medications Hydromorphone HCl (Hydromorphone 1 Mg Inj) 0.5 mg IV NOW ONE Stop: 01/27/24 01:34 PST Last Admin: 01/27/24 01:42 PDT Dose: 0.5 mg Calcium Gluconate 4.65 meq/ (Sodium Chloride) 60 mls @ 180 mls/hr IV NOW ONE Stop: 01/27/24 01:51 PST Last Infusion: 01/27/24 01:17 PST Dose: Infused Vital Signs Vital signs: Vital Signs - 8 hr 01/26/24 22:40 01/26/24 23:04 01/26/24 23:09 Temperature 98 F Pulse Rate 83 87 85 Respiratory Rate 19 26 H 13 Blood Pressure 133/85 Pulse Oximetry 100 96 95 Oxygen Delivery Method Room Air 01/26/24 23:09 01/26/24 23:15 01/26/24 23:15 Temperature Pulse Rate 86 Respiratory Rate 15 Blood Pressure 114/56 L 105/62 Pulse Oximetry 96 Oxygen Delivery Method Room Air 01/26/24 23:24 01/26/24 23:24 01/26/24 23:30 Temperature Pulse Rate 86 83 Respiratory Rate 13 Blood Pressure 109/64 Pulse Oximetry 94 96 Oxygen Delivery Method 01/26/24 23:30 01/26/24 23:45 01/26/24 23:45 Temperature Pulse Rate 83 Respiratory Rate 19 Blood Pressure 106/62 102/59 L Pulse Oximetry 95 Oxygen Delivery Method 01/27/24 00:00 01/27/24 00:00 01/27/24 00:15 Temperature Pulse Rate 81 Respiratory Rate 11 L Blood Pressure 104/62 102/62 Pulse Oximetry 94 Oxygen Delivery Method 01/27/24 00:15 01/27/24 00:30 01/27/24 00:30 Temperature Pulse Rate 83 80 Respiratory Rate 33 H 12 Blood Pressure 109/66 Pulse Oximetry 96 94 Oxygen Delivery Method 01/27/24 00:45 01/27/24 00:45 01/27/24 01:00 PST Temperature Pulse Rate 78 Respiratory Rate 16 Blood Pressure 110/63 112/64 Pulse Oximetry 92 Oxygen Delivery Method 01/27/24 01:00 PST 01/27/24 01:15 PST 01/27/24 01:15 PST Temperature Pulse Rate 79 79 Respiratory Rate 16 20 Blood Pressure 108/63 Pulse Oximetry 94 95 Oxygen Delivery Method MDM - Altered Mental Status Lab Data Lab results narrative: White blood cell count 17115, hemoglobin 11, platelets 562 elevated. Sodium 137, potassium 4.3, serum CO2 30, BUN 17, creatinine 0.74, glucose 86. Liver functions normal. Ammonia level nonmeasurable. Urinalysis negative. Ethanol, acetaminophen, salicylate levels negative. Urine drug screen positive for tricyclic antidepressant, opiate, oxycodone, benzodiazepine, THC. Lactic acid 1.0 normal. 01/26/24 22:50 01/26/24 22:50 Labs: Lab Results 01/26/24 01/26/24 01/26/24 Range/Units 22:50 23:20 23:20 WBC 11.9 H (4.5-11.0) X10^3/uL RBC 4.20 L (4.5-5.9) X10^6/uL Hgb 11.0 L (13.5-17.5) g/dL Hct 34.1 L (41-53) % MCV 81.2 (80-100) fL MCH 26.2 (26-34) PG MCHC 32.3 (30-36) % RDW 16.8 H (11.6-14.8) % Plt Count 562 H (150-400) X10^3/uL Neut % (Auto) 78.6 H (50-75) % Lymph % (Auto) 7.9 L (25-40) % [place] % (Auto) 3.8 (3-14) % Eos % (Auto) 7.1 H (2-4) % Baso % (Auto) 2.6 H (0-2) % Neut # (Auto) 9400 H (6401-2425) /uL Lymph # (Auto) 900 L (9633-3484) /uL [place] # (Auto) 500 (0-900) /uL Eos # (Auto) 900 H (0-450) /uL Baso # (Auto) 300 H (0-100) /uL PT 12.5 (9.4-12.5) SECONDS INR 1.1 (0.9-1.3) APTT 38 H (25.1-36.5) SECONDS Sodium 137 (137-145) mmol/L Potassium 4.3 (3.4-5.1) mmol/L Chloride 100 (98-107) mmol/L Carbon Dioxide 30 (22-32) mmol/L BUN 17 (9-20) mg/dL Creatinine 0.74 (0.66-1.25) mg/dL Estimated GFR > 60 (>60) mL/min BUN/Creatinine Ratio 23.0 H (6-22) Glucose 86 (80-110) mg/dL Lactate 1.0 (0.7-2.1) mmol/L Calcium 7.2 L (8.4-10.2) mg/dL Total Bilirubin 0.3 (0.2-1.3) mg/dL AST 23 (17-59) IU/L ALT 10 (<50) IU/L Alkaline Phosphatase 79 (38-126) U/L Ammonia < 9 L (9-30) umol/L Total Protein 6.5 (6.3-8.2) g/dL Albumin 3.9 (3.5-5.0) g/dL Globulin 2.6 (1.7-4.1) g/dL Albumin/Globulin Ratio 1.5 (1.0-2.8) TSH 20.1 H (0.47-4.68) uIU/mL Prolactin 33.2 H (3.7-17.9) ng/mL Urine Color Yellow Urine Appearance Clear Urine pH 7.5 Normal (4.5-8.0) Ur Specific [place] 1.010 (1.000-1.035) Urine Protein Negative (Negative) Urine Glucose (UA) Negative (Negative) g/dL Urine Ketones Negative (NEGATIVE) Urine Occult Blood Negative (Negative) Urine Nitrate Negative (Negative) Urine Bilirubin Negative (NEGATIVE) Urine Urobilinogen 0.2 (0.2) E.U./dL Ur Leukocyte Esterase Negative (NEGATIVE) Urine RBC None seen (0-5/HPF) Urine WBC None seen (0-5/HPF) Ur Squamous Epith Cells None seen (0-5/HPF) Urine Bacteria None seen (None) Ur Culture Indicated? Cult not indicated Vol Urine Centrifuged 10ml (spun) Salicylates < 1.0 (<20) mg/dL U Opiates 300ng/mL cut Positive H (Negative) Ur Oxycodone Screen Positive H (Negative) Urine Methadone Screen Negative (Negative) Acetaminophen < 10 (10-30) ug/mL Ur Barbiturates Screen Negative (Negative) U Tricyclic Antidepress Positive H (Negative) Ur Phencyclidine Scrn Negative (Negative) Ur Amphetamines Screen Negative (Negative) U Methamphetamines Scrn Negative (Negative) Ur MDMA Scrn (Ecstasy) Negative (Negative) U Benzodiazepines Scrn Positive H (Negative) Urine Cocaine Screen Negative (Negative) U Marijuana (THC) Screen Positive H (Negative) Urine Specific [place] Normal (Normal) Ethyl Alcohol < 10 ( - 10) mg/dL Ur Creatinine Normal (Normal) Blood Type Antibody Screen 01/26/24 Range/Units 23:35 WBC (4.5-11.0) X10^3/uL RBC (4.5-5.9) X10^6/uL Hgb (13.5-17.5) g/dL Hct (41-53) % MCV (80-100) fL MCH (26-34) PG MCHC (30-36) % RDW (11.6-14.8) % Plt Count (150-400) X10^3/uL Neut % (Auto) (50-75) % Lymph % (Auto) (25-40) % [place] % (Auto) (3-14) % Eos % (Auto) (2-4) % Baso % (Auto) (0-2) % Neut # (Auto) (7749-9695) /uL Lymph # (Auto) (8827-9637) /uL [place] # (Auto) (0-900) /uL Eos # (Auto) (0-450) /uL Baso # (Auto) (0-100) /uL PT (9.4-12.5) SECONDS INR (0.9-1.3) APTT (25.1-36.5) SECONDS Sodium (137-145) mmol/L Potassium (3.4-5.1) mmol/L Chloride (98-107) mmol/L Carbon Dioxide (22-32) mmol/L BUN (9-20) mg/dL Creatinine (0.66-1.25) mg/dL Estimated GFR (>60) mL/min BUN/Creatinine Ratio (6-22) Glucose (80-110) mg/dL Lactate (0.7-2.1) mmol/L Calcium (8.4-10.2) mg/dL Total Bilirubin (0.2-1.3) mg/dL AST (17-59) IU/L ALT (<50) IU/L Alkaline Phosphatase (38-126) U/L Ammonia (9-30) umol/L Total Protein (6.3-8.2) g/dL Albumin (3.5-5.0) g/dL Globulin (1.7-4.1) g/dL Albumin/Globulin Ratio (1.0-2.8) TSH (0.47-4.68) uIU/mL Prolactin (3.7-17.9) ng/mL Urine Color Urine Appearance Urine pH (4.5-8.0) Ur Specific [place] (1.000-1.035) Urine Protein (Negative) Urine Glucose (UA) (Negative) g/dL Urine Ketones (NEGATIVE) Urine Occult Blood (Negative) Urine Nitrate (Negative) Urine Bilirubin (NEGATIVE) Urine Urobilinogen (0.2) E.U./dL Ur Leukocyte Esterase (NEGATIVE) Urine RBC (0-5/HPF) Urine WBC (0-5/HPF) Ur Squamous Epith Cells (0-5/HPF) Urine Bacteria (None) Ur Culture Indicated? Vol Urine Centrifuged Salicylates (<20) mg/dL U Opiates 300ng/mL cut (Negative) Ur Oxycodone Screen (Negative) Urine Methadone Screen (Negative) Acetaminophen (10-30) ug/mL Ur Barbiturates Screen (Negative) U Tricyclic Antidepress (Negative) Ur Phencyclidine Scrn (Negative) Ur Amphetamines Screen (Negative) U Methamphetamines Scrn (Negative) Ur MDMA Scrn (Ecstasy) (Negative) U Benzodiazepines Scrn (Negative) Urine Cocaine Screen (Negative) U Marijuana (THC) Screen (Negative) Urine Specific [place] (Normal) Ethyl Alcohol ( - 10) mg/dL Ur Creatinine (Normal) Blood Type O Positive Antibody Screen Negative Point of Care Testing Glucose POC 96 ECG Data Attestation: I personally reviewed and interpreted this ECG as follows: Interpretation: Normal sinus rhythm with rate of 83, no obvious ST segment elevation or depression changes. General low amplitude T-waves noted. OR 140, QRS 98, QTC 467. MDM Narrative Medical decision making narrative: 69-year-old male with history of chronic pancreatitis, chronic pain, on chronic opiates, recent diagnosis thyroid cancer status post thyroidectomy last month, on calcium supplementation therapy, still with postsurgical drain in place, altered mental status. Glucose level not diminished. CT head ordered. Other labs pending. White blood cell count 47961, CMP unremarkable. Calcium 7.2 with albumin 3.9 noted, we will give IV calcium Urine drug screen positive for multiple substances: Opiates, benzodiazepine, oxycodone, tricyclic antidepressant, THC. Multiple sedating medications on chronic med list. Unclear if he might have taken extra doses of medications accidentally. Mental status improved shortly after arrival, continued to improved during ED stay. No thoughts of hurting self or others. Observed for a number of hours in the emergency department, mental status improved. Patient requested pain medication, IV Dilaudid single dose given. at bedside. He would like to go home. He would like to leave his Tirvedi catheter in place, urinalysis not suspicious for infection. We will leave in Trivedi place for now per patient request, though advised on discharge information that the longer he leaves catheter in the less likely his bladder is to function normally, advised close follow up with Urology tomorrow Sunday, consider catheter removal, contact information for offices of local urologists provided. Discharge home with . They collected hospice information from ED nursing, we will pursue outpatient consultation for now. Otherwise follow up with PCP advised in the next couple of days to recheck calcium level. Follow up with primary care provider, chronic pain management providers, Oncology for now, pending evaluation for hospice services Discharge Plan Departure Patient Disposition: Home Clinical Impression: Altered mental status, Hypocalcemia, Polypharmacy, History of chronic pain, History of thyroidectomy, History of chronic pancreatitis Activity Restrictions/Additional Instructions: Complex past and recent history, including chronic pancreatitis and chronic pain management, more recent thyroidectomy for thyroid cancer diagnosis with drainage tube still in place, taking oral calcium supplementation, chronic pain medications, altered mental status and confusion tonight. CT head study showed no acute changes. Lab studies did show fairly low serum calcium level with normal albumin level. IV calcium was given. Urine tox screen showed presence of opiates and benzodiazepine and oxycodone and cannabis/TLC, as well as tricyclic antidepressant detection. All these substances can contribute to confusion. These are not quantitative measurements but just show the presence of different substances, unclear how much of any given class of substance might be contributing to your confusion. Calcium IV repletion, continue calcium repletion orally for discharge. Follow up with your regular provider advised Sunday. You had interested in speaking with hospice services for outpatient consultation for now. Contact information provided by nursing. Follow up with your regular doctor advised Sunday. Return to this/nearest emergency department for any change worsening symptoms or any concerns prior Trivedi urinary catheter was placed on your arrival due to altered mental status and ability to obtain urine in a timely fashion. You did not want to have the Trivedi catheter removed for now, stating that you had been having trouble with urination. Urine test was not suspicious for infection. If you would like to keep Trivedi in place for now, please consider close follow up with Urology, as your bladder may lose its ability to contract normally if it is left in too long. Contact information provided for local urologists. Contact their office Sunday for close follow up Prescriptions: No Action clopidogrel [Plavix] 75 mg Tablet 75 mg PO QAM Qty: 0 promethazine 25 mg tablet 25 mg PO Q4-6H PRN (Reason: diarrhea) promethazine 25 mg suppository 25 mg OR Q6H PRN (Reason: vomiting) metoprolol succinate 25 mg tablet extended release 24 hr 25 mg PO BID Creon 24,000-76,000 -120,000 unit capsule,delayed release(DR/EC) 1 cap PO QID Qty: 120 12RF Rx Instructions: administer with meals and/or snacks prn sliding scale. 1 capsule for every 600 calories morphine [MS Contin] 15 mg tablet extended release 30 mg PO .HS rosuvastatin 10 mg tablet 40 mg PO DAILY amlodipine 5 mg tablet 10 mg PO DAILY duloxetine [Cymbalta] 60 mg capsule,delayed release(DR/EC) 120 mg PO QAM ezetimibe 10 mg tablet 10 mg PO DAILY methylphenidate HCl 20 mg tablet 20 mg PO TID Qty: 90 0RF nitroglycerin 0.3 mg tablet, sublingual See Rx Instructions .ROUTE .COMPLEX Qty: 100 0RF Dose Instruction: PLACE 1 TABLET (0.3 MG TOTAL) UNDER THE TONGUE EVERY 5 (FIVE) MINUTES NEEDED FOR CHEST PAIN FOR UP TO 7 DAYS MAY REPEAT EVERY 5 MINUTES UP TO 3 DOSES[address] Rx [address]ructions: PL[address] 1 TABLET (0.3 MG TOTAL) UNDER THE TONGUE EVERY 5 (FIVE) MINUTES NEEDED FOR CHEST PAIN FOR UP TO 7 DAYS MAY REPEAT EVERY 5 MINUTES UP TO 3 DOSES. acetaminophen [Pain Relief (acetaminophen)] 325 MG tablet 500 mg PO Q4HP PRN (Reason: Pain, Mild) dabigatran etexilate [Pradaxa] 150 mg Capsule 150 mg PO BID ondansetron 8 mg tablet,disintegrating 8 mg PO PRN PRN (Reason: nausea/vomiting) trazodone 50 mg Tablet 50 mg PO BEDTIME PRN (Reason: insomnia) Qty: 30 0RF Rx Instructions: can take 1/2 tab (25mg) if 50 is too strong ipratropium-albuterol inhaler 3 ml inhalation 4XD PRN (Reason: For shortness of breath) tadalafil 20 mg PO PRN PRN (Reason: 1hr before sexual activity) diphenhydramine HCl 12.5 mg/5 mL elixir 50 mg PO Q6H PRN (Reason: nausea and vomiting) insulin glargine 10 units SUBCUT QAM pantoprazole 40 mg Tablet,Delayed Release (Dr/Ec) 40 mg PO BID metoclopramide HCl [Reglan] 10 mg tablet 10 mg PO Q6H PRN (Reason: nausea and vomiting) Qty: 20 0RF oxycodone 7.5 mg tablet, oral only 5 mg PO Q4H PRN (Reason: pain) lisinopril 2.5 mg Tablet 2.5 mg PO QAM amoxicillin-pot clavulanate 875-125 mg tablet 1 tab PO BID Qty: 12 0RF Referrals: Shine Bullard DO [Physician] - Eric Huang MD [Primary Care Provider] - Feng Connolly MD [Physician] - Stand Alone Forms: Patient Portal/API/Survey
[2024-01-26 23:05] LABS: Add Manual Diff / Slide Review NO; Basophils Absolute Auto 300 /uL (0-100); Basophils Percent Auto 2.6 % (0-2); Eosinophils Absolute Auto 900 /uL (0-450); Eosinophils Percent Auto 7.1 % (2-4); Hematocrit 34.1 % (41-53); Lymphocytes Absolute Auto 900 /uL (1100-4500); Lymphocytes Percent Auto 7.9 % (25-40); Mean Corpuscular HGB Conc 32.3 % (30-36); Mean Corpuscular Hemoglobin 26.2 PG (26-34); Mean Corpuscular Volume 81.2 fL (80-100); Monocytes Absolute Auto 500 /uL (0-900); Monocytes Percent Auto 3.8 % (3-14); Neutrophils Absolute Auto 9400 /uL (1500-7000); Neutrophils Percent Auto 78.6 % (50-75); Platelet Count 562 X10^3/uL (150-400); Red Cell Distribution Width 16.8 % (11.6-14.8); White Blood Cell Count 11.9 X10^3/uL (4.5-11.0)
--- NOTE | 2024-01-26 23:12 | DI.CT.S_ITS ---
PROCEDURE: CT HEAD/BRAIN WO CON INDICATIONS: alt MSE TECHNIQUE: Noncontrast 4.5 mm thick angled axial sections acquired from the foramen magnum to the vertex, with coronal and sagittal reformats. For radiation dose reduction, the following was used: automated exposure control, adjustment of mA and/or kV according to patient size. COMPARISON: None. FINDINGS: Image quality: Diagnostic. CSF spaces: Basal cisterns are patent. No extra-axial fluid collections. Ventricles are normal in size and shape. Brain: No midline shift. No intracranial masses or hemorrhage. Fin[place]-white matter interface is normal. Skull and face: Calvarium and visualized facial bones are intact, without suspicious lesions. Sinuses: Visualized sinuses and mastoids are clear. IMPRESSION: No acute intracranial pathology. Dictated by: Imtiaz Hammer M.D. on 01/26/2024 at 23:28 Approved by: Imtiaz Hammer M.D. on 01/26/2024 at 23:29
[2024-01-26 23:21] LABS: INR 1.1 (0.9-1.3); Prothrombin Time 12.5 SECONDS (9.4-12.5)
[2024-01-26 23:23] LABS: PTT Partial Thromboplastin Tim 38 SECONDS (25.1-36.5)
[2024-01-26 23:27] LABS: UR Morphine/Opiate cutoff 300 Positive (Negative); Ur Creatinine Normal (Normal); Ur Specific Gravity Normal (Normal); Urine Oxycodone Positive (Negative); Urine Tetrahydrocannabinol Positive (Negative); Urine Tricyclic Antidepressant Positive (Negative); Urine pH Normal (Normal)
[2024-01-26 23:28] LABS: Acetaminophen < 10 ug/mL (10-30); Alanine Aminotransferase 10 IU/L (<50); Albumin 3.9 g/dL (3.5-5.0); Albumin Globulin Ratio 1.5 (1.0-2.8); Alkaline Phosphatase 79 U/L (38-126); Ammonia (NH3) < 9 umol/L (9-30); Aspartate Aminotransferase 23 IU/L (17-59); Bilirubin Total 0.3 mg/dL (0.2-1.3); Blood Urea Nitrogen 17 mg/dL (9-20); Calcium 7.2 mg/dL (8.4-10.2); Carbon Dioxide 30 mmol/L (22-32); Chloride 100 mmol/L (98-107); Estimated Glomerular Filt Rate > 60 mL/min (>60); Ethanol (ETOH) < 10 mg/dL; Globulin 2.6 g/dL (1.7-4.1); Glucose 86 mg/dL (80-110); HEMOLYSIS < 15 (0-50); Potassium 4.3 mmol/L (3.4-5.1); Salicylate < 1.0 mg/dL (<20); Sodium 137 mmol/L (137-145); Total Protein 6.5 g/dL (6.3-8.2)
[2024-01-26 23:28] LABS: Urine Amphetamines Negative (Negative); Urine Benzodiazepines Positive (Negative); Urine Cocaine Negative (Negative); Urine Methamphetamines Negative (Negative); Urine Phencyclidine Negative (Negative)
[2024-01-26 23:29] LABS: Urine Barbiturates Negative (Negative); Urine MDMA Negative (Negative); Urine Methadone Negative (Negative)
[2024-01-26 23:36] LABS: Appearance Urine UA CLEAR; Bilirubin Urine UA NEGATIVE (NEGATIVE); Color Urine UA YELLOW; Glucose Urine UA NEGATIVE (Negative); Ketones Urine UA NEGATIVE (NEGATIVE); Leukocyte Esterase Urine UA NEGATIVE (NEGATIVE); Nitrite Urine UA NEGATIVE (Negative); Occult Blood Urine UA NEGATIVE (Negative); Protein Urine UA NEGATIVE (Negative); Urobilinogen Urine UA 0.2 E.U./dL (0.2); pH Urine UA 7.5 (4.5-8.0)
[2024-01-26 23:44] LABS: Prolactin 33.2 ng/mL (3.7-17.9)
[2024-01-26 23:48] LABS: Bacteria Urine None Seen; Culture Indicated Urine Cult Not Indicated; RBC Urine None Seen (0-5/HPF); Squamous Epithelial Cell Urine None Seen (0-5/HPF); Urine Volume 10mL (spun); WBC Urine None Seen (0-5/HPF)
[2024-01-27] VITALS (7 sets, daily range): BP systolic 102–112; BP diastolic 62–66; PULSE 78–83; RESP 11–33; TEMP 36.8; O2SAT 92–96
[2024-01-27 00:03] LABS: Thyroid Stimulating Hormone 20.1 uIU/mL (0.47-4.68)
--- NOTE | 2024-01-27 01:18 | PC.NURSE ---
Pt ambulated in hallway with walker and steady gait. Tolerated well. States he feels well enough to go home.
--- NOTE | 2024-01-27 01:35 | PC.NURSE ---
Trivedi care teaching done with pt and , they verbalized understanding.
[2024-01-27] MEDS: CALCIUM GLUCONATE 4.65 MEQ in SODIUM CHLORIDE 0.9% 50 ML 180 MEQ IV (01:41)
[2024-01-27] MEDS: HYDROMORPHONE 1 MG INJ 0.5 MG IV (01:42)
[2024-01-29 18:07] LABS: Osmolality, Serum 282 mOsmol/kg (280-301)
== END 2024-01-27 01:37 | disposition home or self-care (01) ==
PROVIDERS: Emergency Provider Emergency Medicine; Family Provider Nurse Practitioner Family; PCP Family Medicine
DX: R41.82 Altered mental status, unspecified (principal); E83.51 Hypocalcemia; Z79.899 Other long term (current) drug therapy; Z87.19 Personal history of other diseases of the digestive system; E89.0 Postprocedural hypothyroidism; Z85.850 Personal history of malignant neoplasm of thyroid
CPT/HCPCS: 36415; 51701; 70450; 80053; 80305; 80320; 80329; 81001; 82140; 82962; 83605; 83930; 84146; 84443; 85025; 85610; 85730; 86850; 86900; 86901; 87040; 87086; 93005; 96365; 96375; 99284; G0480; J0612; J1171

== ENCOUNTER 2024-03-16 17:06 | Emergency (ER) | payer OTHER, SELFPAY ==
[2024-01-21 17:49] VITALS: BMI 25.8
[2024-03-16] VITALS (12 sets, daily range): BP systolic 117–147; BP diastolic 57–72; PULSE 79–102; RESP 18–20; TEMP 36.4; O2SAT 91–99; BMI 25.4
--- NOTE | 2024-03-16 17:41 | EKG_ITS ---
[address] [address] Test Date: 2024-03-16 Pat Name: Jann Madison Department: [facility] Room: Gender: Male [employer] Driver: GABY : 1955 Requested By: Order Number: [id number] Reading MD: Brock Moreno Measurements Intervals [place] Rate: 80 P: 34 OH: 150 QRS: 28 QRSD: 102 T: 66 QT: 418 QTc: 482 Interpretive Statements Normal sinus rhythm Nonspecific T wave abnormality Prolonged QT Electronically Signed On 03-17-2024 11:19:53 PST by Brock Moreno
--- NOTE | 2024-03-16 18:13 | PC.NURSE ---
patient had significant pain during IV admin for two attemps. Additional nurse support required for IV placement. Charge notified.
[2024-03-16] MEDS: METOCLOPRAMIDE 10 MG/2 ML INJ IV (18:19)
--- NOTE | 2024-03-16 18:20 | ED_ITS ---
HPI - Abdominal Pain General Chief Complaint: Abdominal Pain Stated Complaint: NVD, Dehydration, Abd Pain Time Seen by Provider: 03/16/24 17:40 History of Present Illness HPI narrative: Patient 69-year-old male with past medical history chronic pancreatitis, atrial fibrillation on Pradaxa and Plavix CAD, HLD, chronic pain opiate dependence, medullary thyroid cancer status post extensive neck surgery at the [facility] presenting today with nausea vomiting. He has previously been admitted with hypocalcemia and pancreatitis. He is presenting today with ongoing nausea vomiting. Reports increased abdominal pain. He has a known ventral hernia usually he is able to reduce it but feels like it is hard and he has not really able to reduce it now. He has not been able to take his morphine for pain as well. He just can not keep anything down. He is also stating he has had couple of episodes of black stool. He has not vomiting blood. Denies any sort of chest pain. He really just wants his abdominal pain and vomiting to sit. He is undergone some sort of targeted treatment for the medullary thyroid cancer no treatment and no chemotherapy available. Related Data Home Medications Medication Instructions Recorded Confirmed clopidogrel 75 mg tablet (Plavix) 75 mg PO QAM ##0 04/15/08 01/29/24 acetaminophen 325 mg tablet (Pain 500 mg PO Q4HP PRN Pain, Mild 09/25/17 01/29/24 Relief (acetaminophen)) dabigatran etexilate 150 mg 150 mg PO BID 03/24/18 01/29/24 capsule (Pradaxa) lisinopril 2.5 mg tablet 2.5 mg PO QAM blood pressure 04/28/19 01/29/24 duloxetine 60 mg capsule,delayed 120 mg PO QAM 11/01/21 01/29/24 release (Cymbalta) ondansetron 8 mg disintegrating 8 mg PO PRN PRN nausea/vomiting 02/25/22 01/29/24 tablet morphine 15 mg tablet,extended 30 mg PO .HS 06/06/22 01/29/24 release (MS Contin) amlodipine 5 mg tablet 10 mg PO DAILY 01/19/23 01/29/24 rosuvastatin 10 mg tablet 40 mg PO DAILY 01/19/23 01/29/24 diphenhydramine HCl 12.5 mg/5 mL 50 mg PO Q6H PRN nausea and 06/01/23 01/29/24 oral elixir vomiting insulin glargine 10 units SUBCUT QAM 06/01/23 01/29/24 ipratropium-albuterol 3 ml inhalation 4XD PRN For 06/01/23 01/29/24 shortness of breath tadalafil 20 mg PO PRN PRN 1hr before sexual 06/01/23 01/29/24 activity pantoprazole 40 mg tablet,delayed 40 mg PO BID 06/06/23 01/29/24 release ezetimibe 10 mg tablet 10 mg PO DAILY 07/03/23 01/29/24 oxycodone 7.5 mg tablet,oral ONLY 5 mg PO Q4H PRN pain 11/21/23 01/29/24 (not for feeding tubes) metoprolol succinate 25 mg 25 mg PO BID 11/29/23 01/29/24 tablet,extended release 24 hr promethazine 25 mg rectal 25 mg OH Q6H PRN vomiting 11/29/23 01/29/24 suppository promethazine 25 mg tablet 25 mg PO Q4-6H PRN diarrhea 11/29/23 01/29/24 Previous Rx's Medication Instructions Recorded xxyrio-sjpxfuow-iarxprm 1 cap PO QID #120 caps 03/15/20 24,000-76,000-120,000 unit capsule,delayed rel (Creon) trazodone 50 mg tablet 50 mg PO BEDTIME PRN insomnia #30 03/03/22 tabs metoclopramide HCl 10 mg tablet 10 mg PO Q6H PRN nausea and 11/01/23 (Reglan) vomiting #20 tabs methylphenidate HCl 20 mg tablet 20 mg PO TID #90 tabs 12/03/23 nitroglycerin 0.3 mg sublingual See Rx Instructions .Route 12/03/23 tablet .COMPLEX #100 ea amoxicillin 875 mg-potassium 1 tab PO BID #12 tabs 01/25/24 clavulanate 125 mg tablet morphine 15 mg tablet,extended 15 mg PO .at bed time #28 tabs 01/28/24 release Allergies Allergy/AdvReac Type Severity Reaction Status Date / Time Iodine and Iodide Containing Allergy Severe Blister Verified 01/29/24 11:23 Produc [IODINE AND IODIDE CONTAINING PRODUC] Sulfa (Sulfonamide Allergy Severe Anaphylaxis Verified 01/29/24 11:23 Antibiotics) [SULFA (SULFONAMIDE ANTIBIOTICS)] gabapentin AdvReac Intermediate Dizziness Verified 01/29/24 11:23 [id number] Reductase AdvReac Intermediate Verified 01/29/24 11:23 Inhibitor metformin AdvReac Mild Verified 01/29/24 11:23 Patient History Medical History Chronic low back pain Coronary artery disease Thyroid nodule Diabetes mellitus Atrial flutter with rapid ventricular response Sepsis Claudication in peripheral vascular disease History of cardioversion (03/07/21) Campylobacter enteritis Exocrine pancreatic insufficiency Acute dehydration Enteritis, enteropathogenic E. coli Paroxysmal atrial fibrillation Psoriasis Narcolepsy GERD (gastroesophageal reflux disease) Hyperlipidemia HTN (hypertension) Insulin dependent diabetes mellitus with complications Peripheral vascular disease Gastroenteritis Pancreatitis Atrial flutter with rapid ventricular response Surgical History History of epididymectomy Hx of biopsy History of femoropopliteal bypass H/O exploratory laparotomy Family History Father Colon cancer Mother Narcolepsy Grandmother Narcolepsy Social History household members: spouse Smoking Status: Former smoker alcohol intake: former Smoking Status: Former smoker alcohol intake frequency: holidays/special occasions only Exam Initial Vital Signs Initial Vital Signs: Vital Signs Temperature 97.6 F 03/16/24 17:34 Pulse Rate 85 03/16/24 17:34 Respiratory Rate 18 03/16/24 17:34 Blood Pressure 134/63 03/16/24 17:34 Pulse Oximetry 95 03/16/24 17:34 Oxygen Delivery Method Room Air 03/16/24 17:34 GENERAL: Chronically ill slightly pale 69-year-old male HEENT: Head atraumatic,EOMI, pupils reactive, face symmetric, moist mucous membranes CARDIOVASCULAR: Regular rate and rhythm without murmurs, rubs or gallops. RESPIRATORY: Breath sounds equal bilaterally, no wheezes rales or rhonchi. ABDOMEN: Soft, no significant distention ventral hernia tender to touch but still soft EXTREMITIES: Normal range of motion, no clubbing or edema. Neurovascularly intact NEUROLOGICAL: Alert and oriented x4.Normal gait and speech. Cranial nerves II through XII grossly intact. SKIN: Warm, dry, no laceration, no petechiae, no rashes or lesions. Course Orders Ordered: Discontinued Medications Diphenhydramine HCl (Diphenhydramine 50 Mg/Ml Vial) 25 mg IV NOW ONE Stop: 03/16/24 18:32 Last Admin: 03/16/24 18:38 Dose: 25 mg Documented By: ADRIAN Hydromorphone HCl (Hydromorphone 1 Mg Inj) 1 mg IV Q2HR PRN PRN Reason: Pain, Moderate (4-6) Last Admin: 03/16/24 20:15 Dose: 1 mg Documented By: Admin: 03/16/24 18:31 Dose: 1 mg Documented By: ADRIAN Hydromorphone HCl (Hydromorphone 1 Mg Inj) 1 mg IV NOW ONE Stop: 03/16/24 21:49 Last Admin: 03/16/24 21:54 Dose: 1 mg Documented By: ADRIAN Sodium Chloride (Normal Saline 0.9%) 1,000 mls @ 1,000 mls/hr IV BOLUS ONE Stop: 03/16/24 19:26 Last Infusion: 03/16/24 19:57 Dose: Infused Documented By: Admin: 03/16/24 18:30 Dose: 1,000 mls/hr Documented By: ADRIAN Methylprednisolone (Methylprednisolone 125 Mg/2 Ml Vial) 125 mg IV NOW ONE Stop: 03/16/24 18:32 Last Admin: 03/16/24 18:38 Dose: 125 mg Documented By: ADRIAN Metoclopramide HCl (Metoclopramide 10 Mg/2 Ml Inj) 10 mg IV NOW ONE Stop: 03/16/24 17:42 Last Admin: 03/16/24 18:19 Dose: 10 mg Documented By: ADRIAN Pantoprazole Sodium (Pantoprazole 40 Mg Vial) 40 mg IV NOW ONE Stop: 03/16/24 18:30 Last Admin: 03/16/24 18:35 Dose: 40 mg Documented By: ADRIAN Vital Signs Vital signs: Vital Signs - 8 hr 03/16/24 21:00 03/16/24 21:00 03/16/24 21:30 Pulse Rate 93 H Respiratory Rate 18 Blood Pressure 117/57 L 125/58 L Pulse Oximetry 95 Oxygen Delivery Method Nasal Cannula Oxygen Flow Rate 2 03/16/24 21:30 03/16/24 22:00 03/16/24 22:00 Pulse Rate 102 H 93 H Respiratory Rate 18 Blood Pressure 121/60 Pulse Oximetry 94 92 Oxygen Delivery Method Oxygen Flow Rate 03/16/24 22:27 Pulse Rate 95 H Respiratory Rate 20 Blood Pressure 121/60 Pulse Oximetry 99 Oxygen Delivery Method Room Air Oxygen Flow Rate MDM - Abdominal Pain Lab Data 03/16/24 17:45 03/16/24 17:45 Labs: Lab Results 03/16/24 03/16/24 03/16/24 Range/Units 17:45 18:15 18:27 WBC 17.1 H (4.5-11.0) X10^3/uL RBC 4.51 (4.5-5.9) X10^6/uL Hgb 11.2 L (13.5-17.5) g/dL Hct 35.3 L (41-53) % MCV 78.3 L (80-100) fL MCH 24.8 L (26-34) PG MCHC 31.7 (30-36) % RDW 16.1 H (11.6-14.8) % Plt Count 371 (150-400) X10^3/uL Neut % (Auto) 89.1 H (50-75) % Lymph % (Auto) 4.1 L (25-40) % [place] % (Auto) 5.2 (3-14) % Eos % (Auto) 1.4 L (2-4) % Baso % (Auto) 0.2 (0-2) % Neut # (Auto) 85569 H (5910-2528) /uL Lymph # (Auto) 700 L (5632-4137) /uL [place] # (Auto) 900 (0-900) /uL Eos # (Auto) 200 (0-450) /uL Baso # (Auto) 0 (0-100) /uL Sodium 137 (137-145) mmol/L Potassium 4.5 (3.4-5.1) mmol/L Chloride 102 (98-107) mmol/L Carbon Dioxide 26 (22-32) mmol/L BUN 23 H (9-20) mg/dL Creatinine 0.91 (0.66-1.25) mg/dL Estimated GFR > 60 (>60) mL/min BUN/Creatinine Ratio 25.3 H (6-22) Glucose 122 H (80-110) mg/dL Lactate 1.2 (0.7-2.1) mmol/L Calcium 6.6 L (8.4-10.2) mg/dL Total Bilirubin 0.3 (0.2-1.3) mg/dL AST 24 (17-59) IU/L ALT 19 (<50) IU/L Alkaline Phosphatase 77 (38-126) U/L Total Creatine Kinase 190 H (55-170) U/L Troponin I < 0.012 (0.01-0.034) ng/mL Total Protein 6.9 (6.3-8.2) g/dL Albumin 4.3 (3.5-5.0) g/dL Globulin 2.6 (1.7-4.1) g/dL Albumin/Globulin Ratio 1.7 (1.0-2.8) Lipase 32 (23-300) U/L Blood Type O Positive Antibody Screen Negative Imaging Data CT scan - abdomen/pelvis: Radiologist's Impression: PROCEDURE: CT ABDOMEN PELVIS W CON INDICATIONS: ab pain with vomiting known hernia TECHNIQUE: After the administration of intravenous contrast, axial sections acquired from the lung bases to the pubic symphysis. Coronal and sagittal reformats were performed. For radiation dose reduction, the following was used: automated exposure control, adjustment of mA and/or kV according to patient size. COMPARISON: [facility], CT, CT ABDOMEN PELVIS W CON, 01/21/2024, 15:59. FINDINGS: Image quality: Diagnostic. Lower Chest: No significant findings. ABDOMEN: Liver: No solid mass. Gallbladder: No radiopaque gallstones or wall thickening. Biliary ducts: No biliary dilation. Pancreas: No ductal dilation. Spleen: Size is within normal limits. Adrenal Glands: No adrenal nodules. Kidneys and Ureters: No hydronephrosis. No solid mass. No complex renal cystic lesion which requires follow up. Stomach and Bowel: Normal colonic caliber, without significant wall thickening. Normal caliber appendix in the right lower quadrant. Peritoneum: No abnormal intraperitoneal fluid. No free air. Ventral Wall: There is a midline ventral hernia with neck measuring approximately 2.5 cm in SI dimension containing short segment of small bowel. Abdominal Nodes: No retroperitoneal or mesenteric adenopathy by size criteria. Vessels: Aorta and inferior vena cava are normal in size. Aorto bi iliac atherosclerotic calcifications. PELVIS: Pelvic Organs: Unremarkable. Bladder: No bladder wall thickening, accounting for underdistention. Pelvic Nodes: No enlarged lymph nodes. Miscellaneous: No inguinal hernias are seen. Bones: No aggressive osseous abnormality. IMPRESSION: Ventral hernia containing short segment of small bowel. No definite evidence of obstruction. Recommend correlation with physical exam. No other acute findings in the abdomen or pelvis. Approved by: Mandie Multani M.D.,Ph.D. on 03/16/2024 at 19:53 ECG Data Attestation: I personally reviewed and interpreted this ECG as follows: Interpretation: Sinus rhythm rate 80 OH interval 150 QRS [address] changes MDM Narrative Medical decision making narrative: MDM CC: Nausea vomiting abdominal Complicating co-morbidities: Atrial fibrillation with ablation on Pradaxa, thyroid medullary cancer, chronic pancreatitis abdominal surgeries Medical records reviewed: Previous admissions in ED visits Differential considered: Bowel obstruction, incarcerated hernia dehydration pancreatitis days sepsis Exam documented above, pertinent findings include: Ventral hernia is felt but abdomen is overall soft no significant distention Lab Test results independently reviewed as above. Pertinent findings: WBC 17.1, lactate 1.2 Calcium is 6 6 it was previously 7.2 has been as low as 6.8 Troponin negative Lipase 32 Hemoglobin 11.2 hematocrit 353 Labs reviewed no significant electrolyte abnormality or THERESA no anemia Independently reviewed EKG as above no ischemia Imaging studies independently reviewed: CT abdomen pelvis ventral hernia containing short segment of small bowel no definite evidence of obstruction Treatments: Dilaudid, Reglan Protonix given Solu-Medrol Benadryl for iodine allergy Re-evaluations: Patient continues to have intermittent pain but Dilaudid does seem to be helping. Discussion: 69-year-old male medical nausea vomiting pain. Overall he is aware of a poor prognosis. He is looking for pain control and nausea control. Dilaudid does help for pain control. CT does not show any significant abnormality. Blood work overall reassuring although he does have leukocytosis of 17. I think it stress reaction at this point. No obvious need for antibiotics. He has all over pain which is something he is used to. Dilaudid definitely helps. Long discussion with patient. He isn't nearing end of life. Newly diagnosed with the medullary thyroid cancer ongoing abdominal issues really does not want to stay in the hospital which I think is reasonable. His pain is much better after Dilaudid he has all pain medication at home he just needed the vomiting to stop Discharge Plan Departure Patient Disposition: Home Clinical Impression: Vomiting, Abdominal pain Instructions: DI for Abdominal Pain-Adult Activity Restrictions/Additional Instructions: Love you Alfredo!!! Take good care. Come back whenevery you need anything. We are here to help you. Prescriptions: No Action clopidogrel [Plavix] 75 mg Tablet 75 mg PO QAM Qty: 0 promethazine 25 mg tablet 25 mg PO Q4-6H PRN (Reason: diarrhea) promethazine 25 mg suppository 25 mg OH Q6H PRN (Reason: vomiting) metoprolol succinate 25 mg tablet extended release 24 hr 25 mg PO BID morphine 15 mg tablet extended release 15 mg PO .at bed time Qty: 28 0RF Creon 24,000-76,000 -120,000 unit capsule,delayed release(DR/EC) 1 cap PO QID Qty: 120 12RF Rx Instructions: administer with meals and/or snacks prn sliding scale. 1 capsule for every 600 calories morphine [MS Contin] 15 mg tablet extended release 30 mg PO .HS rosuvastatin 10 mg tablet 40 mg PO DAILY amlodipine 5 mg tablet 10 mg PO DAILY duloxetine [Cymbalta] 60 mg capsule,delayed release(DR/EC) 120 mg PO QAM ezetimibe 10 mg tablet 10 mg PO DAILY methylphenidate HCl 20 mg tablet 20 mg PO TID Qty: 90 0RF nitroglycerin 0.3 mg tablet, sublingual See Rx Instructions .ROUTE .COMPLEX Qty: 100 0RF Dose Instruction: PLACE 1 TABLET (0.3 MG TOTAL) UNDER THE TONGUE EVERY 5 (FIVE) MINUTES NEEDED FOR CHEST PAIN FOR UP TO 7 DAYS MAY REPEAT EVERY 5 MINUTES UP TO 3 DOSES[address] Rx [address]ructions: PL[address] 1 TABLET (0.3 MG TOTAL) UNDER THE TONGUE EVERY 5 (FIVE) MINUTES NEEDED FOR CHEST PAIN FOR UP TO 7 DAYS MAY REPEAT EVERY 5 MINUTES UP TO 3 DOSES. acetaminophen [Pain Relief (acetaminophen)] 325 MG tablet 500 mg PO Q4HP PRN (Reason: Pain, Mild) dabigatran etexilate [Pradaxa] 150 mg Capsule 150 mg PO BID ondansetron 8 mg tablet,disintegrating 8 mg PO PRN PRN (Reason: nausea/vomiting) trazodone 50 mg Tablet 50 mg PO BEDTIME PRN (Reason: insomnia) Qty: 30 0RF Rx Instructions: can take 1/2 tab (25mg) if 50 is too strong ipratropium-albuterol inhaler 3 ml inhalation 4XD PRN (Reason: For shortness of breath) tadalafil 20 mg PO PRN PRN (Reason: 1hr before sexual activity) diphenhydramine HCl 12.5 mg/5 mL elixir 50 mg PO Q6H PRN (Reason: nausea and vomiting) insulin glargine 10 units SUBCUT QAM pantoprazole 40 mg Tablet,Delayed Release (Dr/Ec) 40 mg PO BID metoclopramide HCl [Reglan] 10 mg tablet 10 mg PO Q6H PRN (Reason: nausea and vomiting) Qty: 20 0RF oxycodone 7.5 mg tablet, oral only 5 mg PO Q4H PRN (Reason: pain) lisinopril 2.5 mg Tablet 2.5 mg PO QAM amoxicillin-pot clavulanate 875-125 mg tablet 1 tab PO BID Qty: 12 0RF Referrals: Eric Huang MD [Primary Care Provider] - Stand Alone Forms: Patient Portal/API/Survey
--- NOTE | 2024-03-16 18:27 | DI.CT.S_ITS ---
PROCEDURE: CT ABDOMEN PELVIS W CON INDICATIONS: ab pain with vomiting known hernia TECHNIQUE: After the administration of intravenous contrast, axial sections acquired from the lung bases to the pubic symphysis. Coronal and sagittal reformats were performed. For radiation dose reduction, the following was used: automated exposure control, adjustment of mA and/or kV according to patient size. COMPARISON: [facility], CT, CT ABDOMEN PELVIS W CON, 01/21/2024, 15:59. FINDINGS: Image quality: Diagnostic. Lower Chest: No significant findings. ABDOMEN: Liver: No solid mass. Gallbladder: No radiopaque gallstones or wall thickening. Biliary ducts: No biliary dilation. Pancreas: No ductal dilation. Spleen: Size is within normal limits. Adrenal Glands: No adrenal nodules. Kidneys and Ureters: No hydronephrosis. No solid mass. No complex renal cystic lesion which requires follow up. Stomach and Bowel: Normal colonic caliber, without significant wall thickening. Normal caliber appendix in the right lower quadrant. Peritoneum: No abnormal intraperitoneal fluid. No free air. Ventral Wall: There is a midline ventral hernia with neck measuring approximately 2.5 cm in SI dimension containing short segment of small bowel. Abdominal Nodes: No retroperitoneal or mesenteric adenopathy by size criteria. Vessels: Aorta and inferior vena cava are normal in size. Aorto bi iliac atherosclerotic calcifications. PELVIS: Pelvic Organs: Unremarkable. Bladder: No bladder wall thickening, accounting for underdistention. Pelvic Nodes: No enlarged lymph nodes. Miscellaneous: No inguinal hernias are seen. Bones: No aggressive osseous abnormality. IMPRESSION: Ventral hernia containing short segment of small bowel. No definite evidence of obstruction. Recommend correlation with physical exam. No other acute findings in the abdomen or pelvis. Approved by: Mandie Multani M.D.,Ph.D. on 03/16/2024 at 19:53
[2024-03-16 18:28] LABS: Add Manual Diff / Slide Review NO; Basophils Absolute Auto 0 /uL (0-100); Basophils Percent Auto 0.2 % (0-2); Eosinophils Absolute Auto 200 /uL (0-450); Eosinophils Percent Auto 1.4 % (2-4); Hematocrit 35.3 % (41-53); Hemoglobin 11.2 g/dL (13.5-17.5); Lymphocytes Absolute Auto 700 /uL (1100-4500); Lymphocytes Percent Auto 4.1 % (25-40); Mean Corpuscular HGB Conc 31.7 % (30-36); Mean Corpuscular Hemoglobin 24.8 PG (26-34); Mean Corpuscular Volume 78.3 fL (80-100); Monocytes Absolute Auto 900 /uL (0-900); Monocytes Percent Auto 5.2 % (3-14); Neutrophils Absolute Auto 15200 /uL (1500-7000); Neutrophils Percent Auto 89.1 % (50-75); Platelet Count 371 X10^3/uL (150-400); Red Blood Cell Count 4.51 X10^6/uL (4.5-5.9); Red Cell Distribution Width 16.1 % (11.6-14.8); White Blood Cell Count 17.1 X10^3/uL (4.5-11.0)
[2024-03-16] MEDS: SODIUM CHLORIDE 0.9% 1,000 ML 1000 ML IV (18:30)
[2024-03-16] MEDS: HYDROMORPHONE 1 MG INJ IV ×3 (18:31→21:54)
[2024-03-16] MEDS: PANTOPRAZOLE 40 MG VIAL IV (18:35)
[2024-03-16] MEDS: diphenhydrAMINE 50 MG/ML VIAL 25 MG IV (18:38)
[2024-03-16] MEDS: methylPREDNISolone 125 MG/2 ML VIAL IV (18:38)
[2024-03-16 18:40] LABS: Alanine Aminotransferase 19 IU/L (<50); Albumin 4.3 g/dL (3.5-5.0); Albumin Globulin Ratio 1.7 (1.0-2.8); Alkaline Phosphatase 77 U/L (38-126); Aspartate Aminotransferase 24 IU/L (17-59); BUN Creatinine Ratio 25.3 (6-22); Bilirubin Total 0.3 mg/dL (0.2-1.3); Blood Urea Nitrogen 23 mg/dL (9-20); Calcium 6.6 mg/dL (8.4-10.2); Carbon Dioxide 26 mmol/L (22-32); Chloride 102 mmol/L (98-107); Estimated Glomerular Filt Rate > 60 mL/min (>60); Globulin 2.6 g/dL (1.7-4.1); Glucose 122 mg/dL (80-110); HEMOLYSIS < 15 (0-50); Lipase 32 U/L (23-300); Potassium 4.5 mmol/L (3.4-5.1); Sodium 137 mmol/L (137-145); Total Protein 6.9 g/dL (6.3-8.2)
[2024-03-16 18:42] LABS: Lactate (Lactic Acid) 1.2 mmol/L (0.7-2.1)
[2024-03-16 18:50] LABS: Creatine Kinase 190 U/L (55-170)
[2024-03-16 19:03] LABS: Troponin I < 0.012 ng/mL (0.01-0.034)
--- NOTE | 2024-03-16 20:30 | PC.NURSE ---
02 sat dropped to 88% after 1st admin of dilaudid. He was placed on 2L NC to support O2 while providing adequate pain control
== END 2024-03-16 22:30 | disposition home or self-care (01) ==
PROVIDERS: Emergency Medicine; Emergency Provider Emergency Medicine; Family Provider Nurse Practitioner Family; PCP Family Medicine
DX: R11.2 Nausea with vomiting, unspecified (principal); R10.9 Unspecified abdominal pain; C73 Malignant neoplasm of thyroid gland; Z87.19 Personal history of other diseases of the digestive system
CPT/HCPCS: 36415; 74177; 80053; 82550; 83605; 83690; 84484; 85025; 86850; 86900; 86901; 93005; 96361; 96374; 96375; 96376; 99284; J1171; J1200; J2470; J2765; J2919; Q9967

== ENCOUNTER 2024-04-13 16:14 | Emergency (ER) | payer OTHER, SELFPAY ==
[2024-01-21 17:49] VITALS: BMI 25.8
[2024-04-13] VITALS (12 sets, daily range): BP systolic 124–147; BP diastolic 64–79; PULSE 97–113; RESP 18–24; TEMP 36.3; O2SAT 94–100; BMI 26.4
[2024-04-13] MEDS: HYDROMORPHONE 1 MG INJ IV ×2 (17:01→18:25)
[2024-04-13] MEDS: METOCLOPRAMIDE 10 MG/2 ML INJ IV (17:21)
[2024-04-13 17:30] LABS: Add Manual Diff / Slide Review NO; Basophils Absolute Auto 100 /uL (0-100); Basophils Percent Auto 0.8 % (0-2); Eosinophils Absolute Auto 300 /uL (0-450); Hematocrit 36.9 % (41-53); Hemoglobin 11.7 g/dL (13.5-17.5); Lymphocytes Absolute Auto 1100 /uL (1100-4500); Lymphocytes Percent Auto 15.1 % (25-40); Mean Corpuscular HGB Conc 31.7 % (30-36); Mean Corpuscular Hemoglobin 24.7 PG (26-34); Mean Corpuscular Volume 77.9 fL (80-100); Monocytes Absolute Auto 600 /uL (0-900); Monocytes Percent Auto 8.1 % (3-14); Neutrophils Absolute Auto 5300 /uL (1500-7000); Platelet Count 314 X10^3/uL (150-400); Red Blood Cell Count 4.73 X10^6/uL (4.5-5.9); Red Cell Distribution Width 16.3 % (11.6-14.8); White Blood Cell Count 7.4 X10^3/uL (4.5-11.0)
[2024-04-13 17:34] LABS: Alanine Aminotransferase 25 IU/L (<50); Albumin 4.6 g/dL (3.5-5.0); Albumin Globulin Ratio 1.7 (1.0-2.8); Alkaline Phosphatase 89 U/L (38-126); Aspartate Aminotransferase 27 IU/L (17-59); BUN Creatinine Ratio 30.6 (6-22); Bilirubin Total 0.5 mg/dL (0.2-1.3); Blood Urea Nitrogen 19 mg/dL (9-20); Calcium 8.1 mg/dL (8.4-10.2); Carbon Dioxide 25 mmol/L (22-32); Chloride 99 mmol/L (98-107); Estimated Glomerular Filt Rate > 60 mL/min (>60); Globulin 2.7 g/dL (1.7-4.1); Glucose 334 mg/dL (80-110); HEMOLYSIS < 15 (0-50); Lipase 330 U/L (23-300); Potassium 4.2 mmol/L (3.4-5.1); Sodium 132 mmol/L (137-145); Total Protein 7.3 g/dL (6.3-8.2)
--- NOTE | 2024-04-13 18:37 | ED.ABDPAIN ---
HPI - Abdominal Pain General Chief Complaint: Abdominal Pain Stated Complaint: pain Time Seen by Provider: 04/13/24 18:37 Source: patient and family Mode of arrival: Wheelchair History of Present Illness HPI narrative: 69-year-old male history of thyroid cancer with metastatic disease AFib on Pradaxa, chronic pancreatitis, hyperlipidemia, chronic pain opiate dependency status post extensive neck surgery [place] the [facility] presenting for pain management. Patient states that he is currently in transition to a new pain management doctor, states that he is currently on 45 mg morphine b.i.d., with 5 mg Oxy prn, he states that recently he was at the [place] and caused a ?flare-up of his pain to his ?whole-body. States that he has never been able to get to his baseline of 4/10 pain. Therefore he decided come into the ED for further evaluation treatment. He has not complaining of any new symptoms, just stating that he is still having his chronic abdominal and body pains. He has not complaining of any of the symptoms such as headache visual disturbances chest pain shortness breath fever chills nausea vomiting or any other GI/ symptoms time. Has been compliant with all his other medication Related Data Home Medications Medication Instructions Recorded Confirmed clopidogrel 75 mg tablet (Plavix) 75 mg PO QAM ##0 04/15/08 04/11/24 acetaminophen 325 mg tablet (Pain 500 mg PO Q4HP PRN Pain, Mild 09/25/17 04/11/24 Relief (acetaminophen)) dabigatran etexilate 150 mg 150 mg PO BID 03/24/18 04/11/24 capsule (Pradaxa) lisinopril 2.5 mg tablet 2.5 mg PO QAM blood pressure 04/28/19 04/11/24 duloxetine 60 mg capsule,delayed 120 mg PO QAM 11/01/21 04/11/24 release (Cymbalta) ondansetron 8 mg disintegrating 8 mg PO PRN PRN nausea/vomiting 02/25/22 04/11/24 tablet morphine 15 mg tablet,extended 30 mg PO .HS 06/06/22 04/11/24 release (MS Contin) amlodipine 5 mg tablet 10 mg PO DAILY 01/19/23 04/11/24 rosuvastatin 10 mg tablet 40 mg PO DAILY 01/19/23 04/11/24 diphenhydramine HCl 12.5 mg/5 mL 50 mg PO Q6H PRN nausea and 06/01/23 04/11/24 oral elixir vomiting insulin glargine 10 units SUBCUT QAM 06/01/23 04/11/24 ipratropium-albuterol 3 ml inhalation 4XD PRN For 06/01/23 04/11/24 shortness of breath tadalafil 20 mg PO PRN PRN 1hr before sexual 06/01/23 04/11/24 activity pantoprazole 40 mg tablet,delayed 40 mg PO BID 06/06/23 04/11/24 release ezetimibe 10 mg tablet 10 mg PO DAILY 07/03/23 04/11/24 oxycodone 7.5 mg tablet,oral ONLY 5 mg PO Q4H PRN pain 11/21/23 04/11/24 (not for feeding tubes) metoprolol succinate 25 mg 25 mg PO BID 11/29/23 04/11/24 tablet,extended release 24 hr promethazine 25 mg rectal 25 mg IA Q6H PRN vomiting 11/29/23 04/11/24 suppository promethazine 25 mg tablet 25 mg PO Q4-6H PRN diarrhea 11/29/23 04/11/24 Previous Rx's Medication Instructions Recorded hishbx-wittozcy-lsoyviz 1 cap PO QID #120 caps 03/15/20 24,000-76,000-120,000 unit capsule,delayed rel (Creon) trazodone 50 mg tablet 50 mg PO BEDTIME PRN insomnia #30 03/03/22 tabs metoclopramide HCl 10 mg tablet 10 mg PO Q6H PRN nausea and 11/01/23 (Reglan) vomiting #20 tabs methylphenidate HCl 20 mg tablet 20 mg PO TID #90 tabs 12/03/23 nitroglycerin 0.3 mg sublingual See Rx Instructions .Route 12/03/23 tablet .COMPLEX #100 ea amoxicillin 875 mg-potassium 1 tab PO BID #12 tabs 01/25/24 clavulanate 125 mg tablet morphine 15 mg tablet,extended 15 mg PO .at bed time #28 tabs 01/28/24 release Allergies Allergy/AdvReac Type Severity Reaction Status Date / Time Iodine and Iodide Containing Allergy Severe Blister Verified 04/11/24 10:11 Produc [IODINE AND IODIDE CONTAINING PRODUC] Sulfa (Sulfonamide Allergy Severe Anaphylaxis Verified 04/11/24 10:11 Antibiotics) [SULFA (SULFONAMIDE ANTIBIOTICS)] gabapentin AdvReac Intermediate Dizziness Verified 04/11/24 10:11 [id number]-[id number]-[id number] Reductase AdvReac Intermediate Verified 04/11/24 10:11 Inhibitor metformin AdvReac Mild Verified 04/11/24 10:11 Review of Systems Review of Systems Narrative: General: Diffuse body pains, Denies fever, chills, weight loss HEENT: Denies headache, eye drainage, eye irritation, head trauma, sore throat, voice change Cardiovascular: Denies any chest pain, palpitations, shortness of breath, tachycardia Respiratory: Denies any shortness of breath, cough, wheeze, stridor GI/: Denies any abdominal pain, nausea, vomiting, diarrhea, bright red blood per rectum, melanotic stools, urinary frequency, urinary retention, dysuria, hematuria MSK: Denies any joint pain, muscle pains, swelling Skin: Denies any rashes, lesions, discoloration Neuro: Denies any headache, lightheadedness, dizziness, fainting, weakness Psych: Denies SI/HI Patient History Medical History Chronic low back pain Coronary artery disease Thyroid nodule Diabetes mellitus Atrial flutter with rapid ventricular response Sepsis Claudication in peripheral vascular disease History of cardioversion (03/07/21) Campylobacter enteritis Exocrine pancreatic insufficiency Acute dehydration Enteritis, enteropathogenic E. coli Paroxysmal atrial fibrillation Psoriasis Narcolepsy GERD (gastroesophageal reflux disease) Hyperlipidemia HTN (hypertension) Insulin dependent diabetes mellitus with complications Peripheral vascular disease Gastroenteritis Pancreatitis Atrial flutter with rapid ventricular response Surgical History History of epididymectomy Hx of biopsy History of femoropopliteal bypass H/O exploratory laparotomy Family History Father Colon cancer Mother Narcolepsy Grandmother Narcolepsy Social History household members: spouse Smoking Status: Former smoker alcohol intake: former Smoking Status: Former smoker alcohol intake frequency: holidays/special occasions only Exam Narrative Exam Narrative: General: Cooperative, comfortable, well-developed, not in acute distress HEENT: Normocephalic, atraumatic, PERRLA, normal sclera, eyelids normal, Neck: Active full range of motion, atraumatic Chest: Normal to inspection, negative crepitus, no overlying erythema ecchymosis Respiratory: Normal respiratory effort, not in acute respiratory distress, clear to auscultation bilaterally negative cough, wheeze, tachypnea, rhonchi, rales Cardiology: Regular rate rhythm negative gallop, murmur, rubs GI/: N patient with known reducible ventral hernia, no overlying erythema discoloration, exam deferred MSK: Full range of active range of motion of all 4 extremities, atraumatic Skin: No rashes lesions noted Neuro: Alert awake oriented x3, moves all 4 extremities spontaneously, cranial nerves intact, able to answer all questions appropriately follows commands appropriately Psych: Cooperative, negative suicidal or homicidal ideations Initial Vital Signs Initial Vital Signs: Vital Signs Temperature 97.4 F L 04/13/24 16:17 Pulse Rate 113 H 04/13/24 16:17 Respiratory Rate 24 04/13/24 16:17 Blood Pressure 139/74 04/13/24 16:17 Pulse Oximetry 100 04/13/24 16:17 Oxygen Delivery Method Room Air 04/13/24 16:17 Course Orders Ordered: ED Orders 04/13/24 17:11 CBC Auto Diff [Complete Blood Count AUTO DIFF] Stat CMP [Comprehensive Metabolic Panel] Stat Lipase Stat Discontinued Medications Hydromorphone HCl (Hydromorphone 1 Mg Inj) 1 mg IV NOW ONE Stop: 04/13/24 16:58 Last Admin: 04/13/24 17:01 Dose: 1 mg Documented By: RB Hydromorphone HCl (Hydromorphone 1 Mg Inj) 1 mg IV NOW ONE Stop: 04/13/24 18:22 Last Admin: 04/13/24 18:25 Dose: 1 mg Documented By: RB Metoclopramide HCl (Metoclopramide 10 Mg/2 Ml Inj) 10 mg IV NOW ONE Stop: 04/13/24 17:15 Last Admin: 04/13/24 17:21 Dose: 10 mg Documented By: RB Vital Signs Vital signs: Vital Signs - 8 hr 04/13/24 16:17 04/13/24 17:24 04/13/24 17:25 Temperature 97.4 F L Pulse Rate 113 H 104 H Respiratory Rate 24 Blood Pressure 139/74 124/72 Pulse Oximetry 100 99 Oxygen Delivery Method Room Air 04/13/24 17:25 04/13/24 17:30 04/13/24 17:30 Temperature Pulse Rate 106 H 109 H Respiratory Rate Blood Pressure 147/77 H Pulse Oximetry 99 99 Oxygen Delivery Method 04/13/24 17:45 04/13/24 17:45 04/13/24 18:00 Temperature Pulse Rate 99 H 97 H Respiratory Rate Blood Pressure 126/64 Pulse Oximetry 98 94 Oxygen Delivery Method 04/13/24 18:01 04/13/24 18:01 04/13/24 18:15 Temperature Pulse Rate 97 H 102 H Respiratory Rate Blood Pressure 142/70 H Pulse Oximetry 95 95 Oxygen Delivery Method 04/13/24 18:15 Temperature Pulse Rate Respiratory Rate Blood Pressure 145/72 H Pulse Oximetry Oxygen Delivery Method MDM - Abdominal Pain Differential Diagnosis Differential diagnosis: Likely other (Chronic pain, electrolyte abnormality) Lab Data 04/13/24 17:11 04/13/24 17:11 Labs: Lab Results 04/13/24 Range/Units 17:11 WBC 7.4 (4.5-11.0) X10^3/uL RBC 4.73 (4.5-5.9) X10^6/uL Hgb 11.7 L (13.5-17.5) g/dL Hct 36.9 L (41-53) % MCV 77.9 L (80-100) fL MCH 24.7 L (26-34) PG MCHC 31.7 (30-36) % RDW 16.3 H (11.6-14.8) % Plt Count 314 (150-400) X10^3/uL Neut % (Auto) 72.0 (50-75) % Lymph % (Auto) 15.1 L (25-40) % [place] % (Auto) 8.1 (3-14) % Eos % (Auto) 4.0 (2-4) % Baso % (Auto) 0.8 (0-2) % Neut # (Auto) 5300 (7652-3494) /uL Lymph # (Auto) 1100 (9637-6734) /uL [place] # (Auto) 600 (0-900) /uL Eos # (Auto) 300 (0-450) /uL Baso # (Auto) 100 (0-100) /uL Sodium 132 L (137-145) mmol/L Potassium 4.2 (3.4-5.1) mmol/L Chloride 99 (98-107) mmol/L Carbon Dioxide 25 (22-32) mmol/L BUN 19 (9-20) mg/dL Creatinine 0.62 L (0.66-1.25) mg/dL Estimated GFR > 60 (>60) mL/min BUN/Creatinine Ratio 30.6 H (6-22) Glucose 334 H (80-110) mg/dL Calcium 8.1 L (8.4-10.2) mg/dL Total Bilirubin 0.5 (0.2-1.3) mg/dL AST 27 (17-59) IU/L ALT 25 (<50) IU/L Alkaline Phosphatase 89 (38-126) U/L Total Protein 7.3 (6.3-8.2) g/dL Albumin 4.6 (3.5-5.0) g/dL Globulin 2.7 (1.7-4.1) g/dL Albumin/Globulin Ratio 1.7 (1.0-2.8) Lipase 330 H (23-300) U/L MDM Narrative Medical decision making narrative: 69-year-old male history of chronic pain secondary to metastatic disease of the thyroid, comes into the ED for exacerbation of diffuse body pains. States that he is in transition with a new pain management doctor, states that they are trying to adjust his dosage currently on 45 mg b.i.d. morphine and oxy 5 mg as needed, states that he was recently at [facility] had a procedure done and has not been able to get to his baseline pain which is 4/10. Presented with 9/10 pain, lab work was unremarkable, patient with reducible known ventral hernia, patient received 2 mg of IV Dilaudid with improvement of his pain to his baseline 4/10. He has not complaining of any other symptoms he states that he would like to go home now that his pain is under control. Patient was given strict return precautions at bedside verbalized understanding as well they both agree to be discharged home with outpatient follow up Discharge Plan Departure Patient Disposition: Home Clinical Impression: Chronic pain Activity Restrictions/Additional Instructions: Please read the discharge instructions sheet carefully and bring all papers to all doctor follow-up visits, as it may contain information that your doctor may want to see. Disease processes change and evolve, if your symptoms worsen or if you develop any new symptoms that are concerning to you please return for evaluation. Your evaluation today does not show any evidence of any life-threatening/serious illnesses requiring admission to the hospital or surgery. Please follow-up with your doctor for re-evaluation in approximately 1 day. Seek immediate medical attention for any worrisome symptoms. *If you do not have a primary care provider please contact the [facility] Resource line at [phone]. They will ask some questions about your medical history and help get you set up with a doctor in the community. Prescriptions: No Action clopidogrel [Plavix] 75 mg Tablet 75 mg PO QAM Qty: 0 promethazine 25 mg tablet 25 mg PO Q4-6H PRN (Reason: diarrhea) promethazine 25 mg suppository 25 mg IA Q6H PRN (Reason: vomiting) metoprolol succinate 25 mg tablet extended release 24 hr 25 mg PO BID morphine 15 mg tablet extended release 15 mg PO .at bed time Qty: 28 0RF Creon 24,000-76,000 -120,000 unit capsule,delayed release(DR/EC) 1 cap PO QID Qty: 120 12RF Rx Instructions: administer with meals and/or snacks prn sliding scale. 1 capsule for every 600 calories morphine [MS Contin] 15 mg tablet extended release 30 mg PO .HS rosuvastatin 10 mg tablet 40 mg PO DAILY amlodipine 5 mg tablet 10 mg PO DAILY duloxetine [Cymbalta] 60 mg capsule,delayed release(DR/EC) 120 mg PO QAM ezetimibe 10 mg tablet 10 mg PO DAILY methylphenidate HCl 20 mg tablet 20 mg PO TID Qty: 90 0RF nitroglycerin 0.3 mg tablet, sublingual See Rx Instructions .ROUTE .COMPLEX Qty: 100 0RF Dose Instruction: PLACE 1 TABLET (0.3 MG TOTAL) UNDER THE TONGUE EVERY 5 (FIVE) MINUTES NEEDED FOR CHEST PAIN FOR UP TO 7 DAYS MAY REPEAT EVERY 5 MINUTES UP TO 3 DOSES[address] Rx [address]ructions: PL[address] 1 TABLET (0.3 MG TOTAL) UNDER THE TONGUE EVERY 5 (FIVE) MINUTES NEEDED FOR CHEST PAIN FOR UP TO 7 DAYS MAY REPEAT EVERY 5 MINUTES UP TO 3 DOSES. acetaminophen [Pain Relief (acetaminophen)] 325 MG tablet 500 mg PO Q4HP PRN (Reason: Pain, Mild) dabigatran etexilate [Pradaxa] 150 mg Capsule 150 mg PO BID ondansetron 8 mg tablet,disintegrating 8 mg PO PRN PRN (Reason: nausea/vomiting) trazodone 50 mg Tablet 50 mg PO BEDTIME PRN (Reason: insomnia) Qty: 30 0RF Rx Instructions: can take 1/2 tab (25mg) if 50 is too strong ipratropium-albuterol inhaler 3 ml inhalation 4XD PRN (Reason: For shortness of breath) tadalafil 20 mg PO PRN PRN (Reason: 1hr before sexual activity) diphenhydramine HCl 12.5 mg/5 mL elixir 50 mg PO Q6H PRN (Reason: nausea and vomiting) insulin glargine 10 units SUBCUT QAM pantoprazole 40 mg Tablet,Delayed Release (Dr/Ec) 40 mg PO BID metoclopramide HCl [Reglan] 10 mg tablet 10 mg PO Q6H PRN (Reason: nausea and vomiting) Qty: 20 0RF oxycodone 7.5 mg tablet, oral only 5 mg PO Q4H PRN (Reason: pain) lisinopril 2.5 mg Tablet 2.5 mg PO QAM amoxicillin-pot clavulanate 875-125 mg tablet 1 tab PO BID Qty: 12 0RF Referrals: Eric Huang MD [Primary Care Provider] - Stand Alone Forms: Patient Portal/API/Survey
== END 2024-04-13 19:24 | disposition home or self-care (01) ==
PROVIDERS: Emergency Medicine; Emergency Provider Student in an Organized Health Care Education/Training Program; Family Provider Nurse Practitioner Family; PCP Family Medicine
DX: G89.29 Other chronic pain (principal)
CPT/HCPCS: 80053; 83690; 85025; 96374; 96375; 96376; 99283; 99284; J1171; J2765

== ENCOUNTER 2024-04-25 17:01 | Emergency (ER) | payer OTHER, SELFPAY ==
[2024-01-21 17:49] VITALS: BMI 25.8
[2024-04-25 17:25] VITALS: BP 118/58; PULSE 86; RESP 16; TEMP 36.8; O2SAT 96; BMI 26.5
--- NOTE | 2024-04-25 17:29 | DI.CT.S_ITS ---
PROCEDURE: CT LUMBAR SPINE W CON COMPARISON: CT abdomen pelvis with contrast 01/21/2024. INDICATIONS: severe low back pain, mets thyroid CA FINDINGS: There are 5 lumbar type vertebral bodies. There is trace anterolisthesis of L3 on L4. Multilevel degenerative changes including disc height loss and osteophytosis, worse at L5-S1. Overall findings are not significantly changed since prior CT 01/21/2024.. No acute fracture or traumatic subluxation. IMPRESSION: No acute fracture or traumatic subluxation. Multilevel degenerative disc disease, overall not significantly changed since prior CT 01/21/2024. Approved by: Mandie Multani M.D.,Ph.D. on 04/25/2024 at 20:45
[2024-04-25] MEDS: diphenhydrAMINE 50 MG/ML VIAL IV (17:47)
[2024-04-25] MEDS: methylPREDNISolone 125 MG/2 ML VIAL IV (17:48)
--- NOTE | 2024-04-25 19:26 | ED.RECABL ---
HPI - Recheck/Abnormal Lab/Rx General Chief Complaint: Recheck/Abnormal Lab/Rx Stated Complaint: Needs CT, sent by PCP Time Seen by Provider: 04/25/24 19:26 History of Present Illness HPI narrative: 69-year-old male with history of metastatic medullary thyroid cancer, chronic pain presents for CT scan of the lumbar spine. This was intended to be an outpatient study, however patient has a reported allergy to contrast dye. He was sent here for pre medication. Patient states that he normally takes oral Benadryl. Related Data Home Medications Medication Instructions Recorded Confirmed clopidogrel 75 mg tablet (Plavix) 75 mg PO QAM ##0 04/15/08 04/25/24 acetaminophen 325 mg tablet (Pain 500 mg PO Q4HP PRN Pain, Mild 09/25/17 04/25/24 Relief (acetaminophen)) dabigatran etexilate 150 mg 150 mg PO BID 03/24/18 04/25/24 capsule (Pradaxa) lisinopril 2.5 mg tablet 2.5 mg PO QAM blood pressure 04/28/19 04/25/24 duloxetine 60 mg capsule,delayed 120 mg PO QAM 11/01/21 04/25/24 release (Cymbalta) ondansetron 8 mg disintegrating 8 mg PO PRN PRN nausea/vomiting 02/25/22 04/25/24 tablet morphine 15 mg tablet,extended 30 mg PO .HS 06/06/22 04/25/24 release (MS Contin) amlodipine 5 mg tablet 10 mg PO DAILY 01/19/23 04/25/24 rosuvastatin 10 mg tablet 40 mg PO DAILY 01/19/23 04/25/24 diphenhydramine HCl 12.5 mg/5 mL 50 mg PO Q6H PRN nausea and 06/01/23 04/25/24 oral elixir vomiting insulin glargine 10 units SUBCUT QAM 06/01/23 04/25/24 ipratropium-albuterol 3 ml inhalation 4XD PRN For 06/01/23 04/25/24 shortness of breath tadalafil 20 mg PO PRN PRN 1hr before sexual 06/01/23 04/25/24 activity pantoprazole 40 mg tablet,delayed 40 mg PO BID 06/06/23 04/25/24 release ezetimibe 10 mg tablet 10 mg PO DAILY 07/03/23 04/25/24 oxycodone 7.5 mg tablet,oral ONLY 5 mg PO Q4H PRN pain 11/21/23 04/25/24 (not for feeding tubes) metoprolol succinate 25 mg 25 mg PO BID 11/29/23 04/25/24 tablet,extended release 24 hr promethazine 25 mg rectal 25 mg MS Q6H PRN vomiting 11/29/23 04/25/24 suppository promethazine 25 mg tablet 25 mg PO Q4-6H PRN diarrhea 11/29/23 04/25/24 Previous Rx's Medication Instructions Recorded jnfzqb-bedbzchu-ykzbahx 1 cap PO QID #120 caps 03/15/20 24,000-76,000-120,000 unit capsule,delayed rel (Creon) trazodone 50 mg tablet 50 mg PO BEDTIME PRN insomnia #30 03/03/22 tabs metoclopramide HCl 10 mg tablet 10 mg PO Q6H PRN nausea and 11/01/23 (Reglan) vomiting #20 tabs methylphenidate HCl 20 mg tablet 20 mg PO TID #90 tabs 12/03/23 nitroglycerin 0.3 mg sublingual See Rx Instructions .Route 12/03/23 tablet .COMPLEX #100 ea morphine 15 mg tablet,extended 15 mg PO .at bed time #28 tabs 01/28/24 release Allergies Allergy/AdvReac Type Severity Reaction Status Date / Time Iodine and Iodide Containing Allergy Severe Blister Verified 04/25/24 15:53 Produc [IODINE AND IODIDE CONTAINING PRODUC] Sulfa (Sulfonamide Allergy Severe Anaphylaxis Verified 04/25/24 15:53 Antibiotics) [SULFA (SULFONAMIDE ANTIBIOTICS)] gabapentin AdvReac Intermediate Dizziness Verified 04/25/24 15:53 Yjilaas-PUT-UyU Reductase AdvReac Intermediate Verified 04/25/24 15:53 Inhibitor metformin AdvReac Mild Verified 04/25/24 15:53 Patient History Medical History Chronic low back pain Coronary artery disease Thyroid nodule Diabetes mellitus Atrial flutter with rapid ventricular response Sepsis Claudication in peripheral vascular disease History of cardioversion (03/07/21) Campylobacter enteritis Exocrine pancreatic insufficiency Acute dehydration Enteritis, enteropathogenic E. coli Paroxysmal atrial fibrillation Psoriasis Narcolepsy GERD (gastroesophageal reflux disease) Hyperlipidemia HTN (hypertension) Insulin dependent diabetes mellitus with complications Peripheral vascular disease Gastroenteritis Pancreatitis Atrial flutter with rapid ventricular response Surgical History History of epididymectomy Hx of biopsy History of femoropopliteal bypass H/O exploratory laparotomy Family History Father Colon cancer Mother Narcolepsy Grandmother Narcolepsy Social History household members: spouse Smoking Status: Former smoker alcohol intake: former Smoking Status: Former smoker alcohol intake frequency: holidays/special occasions only Exam Initial Vital Signs Initial Vital Signs: Vital Signs Temperature 98.3 F 04/25/24 17:25 Pulse Rate 86 04/25/24 17:25 Respiratory Rate 16 04/25/24 17:25 Blood Pressure 118/58 L 04/25/24 17:25 Pulse Oximetry 96 04/25/24 17:25 Oxygen Delivery Method Room Air 04/25/24 17:25 Const: Awake, alert, ill-appearing, appears chronically unwell Cardiac: regular rate, regular rhythm RESP: unlabored, clear bilaterally, no wheezing MSK back: Generalized tenderness along lumbar spine Skin: Warm, Dry, intact, no rashes Neuro: Poor recall, CN II-XII grossly intact, moves all extremities Course Orders Ordered: Discontinued Medications Diphenhydramine HCl (Diphenhydramine 50 Mg/Ml Vial) 50 mg IV NOW ONE Stop: 04/25/24 17:31 Last Admin: 04/25/24 17:47 Dose: 50 mg Documented By: CTS Diphenhydramine HCl (Diphenhydramine 25 Mg Tablet) 25 mg PO NOW ONE Stop: 04/25/24 19:25 Last Admin: 04/25/24 19:29 Dose: 25 mg Documented By: ES Methylprednisolone (Methylprednisolone 125 Mg/2 Ml Vial) 125 mg IV NOW ONE Stop: 04/25/24 17:31 Last Admin: 04/25/24 17:48 Dose: 125 mg Documented By: CTS Vital Signs Vital signs: Vital Signs - 8 hr 04/25/24 17:25 Temperature 98.3 F Pulse Rate 86 Respiratory Rate 16 Blood Pressure 118/58 L Pulse Oximetry 96 Oxygen Delivery Method Room Air MDM - Recheck/Abnormal Lab/Rx MDM Narrative Medical decision making narrative: Patient presenting for outpatient imaging since he is not able to be premedicated for his outpatient scan. He states that all he needs his oral Benadryl. Patient received the CT scan without any difficulties. He stated that he would go home before receiving results and would look the results up on his patient portal. Discharge from triage. Discharge Plan Departure Patient Disposition: Home Clinical Impression: Lumbar back pain Prescriptions: No Action clopidogrel [Plavix] 75 mg Tablet 75 mg PO QAM Qty: 0 promethazine 25 mg tablet 25 mg PO Q4-6H PRN (Reason: diarrhea) promethazine 25 mg suppository 25 mg MS Q6H PRN (Reason: vomiting) metoprolol succinate 25 mg tablet extended release 24 hr 25 mg PO BID morphine 15 mg tablet extended release 15 mg PO .at bed time Qty: 28 0RF Creon 24,000-76,000 -120,000 unit capsule,delayed release(DR/EC) 1 cap PO QID Qty: 120 12RF Rx Instructions: administer with meals and/or snacks prn sliding scale. 1 capsule for every 600 calories morphine [MS Contin] 15 mg tablet extended release 30 mg PO .HS rosuvastatin 10 mg tablet 40 mg PO DAILY amlodipine 5 mg tablet 10 mg PO DAILY duloxetine [Cymbalta] 60 mg capsule,delayed release(DR/EC) 120 mg PO QAM ezetimibe 10 mg tablet 10 mg PO DAILY methylphenidate HCl 20 mg tablet 20 mg PO TID Qty: 90 0RF nitroglycerin 0.3 mg tablet, sublingual See Rx Instructions .ROUTE .COMPLEX Qty: 100 0RF Dose Instruction: PLACE 1 TABLET (0.3 MG TOTAL) UNDER THE TONGUE EVERY 5 (FIVE) MINUTES NEEDED FOR CHEST PAIN FOR UP TO 7 DAYS MAY REPEAT EVERY 5 MINUTES UP TO 3 DOSES. Rx Instructions: PLACE 1 TABLET (0.3 MG TOTAL) UNDER THE TONGUE EVERY 5 (FIVE) MINUTES NEEDED FOR CHEST PAIN FOR UP TO 7 DAYS MAY REPEAT EVERY 5 MINUTES UP TO 3 DOSES. acetaminophen [Pain Relief (acetaminophen)] 325 MG tablet 500 mg PO Q4HP PRN (Reason: Pain, Mild) dabigatran etexilate [Pradaxa] 150 mg Capsule 150 mg PO BID ondansetron 8 mg tablet,disintegrating 8 mg PO PRN PRN (Reason: nausea/vomiting) trazodone 50 mg Tablet 50 mg PO BEDTIME PRN (Reason: insomnia) Qty: 30 0RF Rx Instructions: can take 1/2 tab (25mg) if 50 is too strong ipratropium-albuterol inhaler 3 ml inhalation 4XD PRN (Reason: For shortness of breath) tadalafil 20 mg PO PRN PRN (Reason: 1hr before sexual activity) diphenhydramine HCl 12.5 mg/5 mL elixir 50 mg PO Q6H PRN (Reason: nausea and vomiting) insulin glargine 10 units SUBCUT QAM pantoprazole 40 mg Tablet,Delayed Release (Dr/Ec) 40 mg PO BID metoclopramide HCl [Reglan] 10 mg tablet 10 mg PO Q6H PRN (Reason: nausea and vomiting) Qty: 20 0RF oxycodone 7.5 mg tablet, oral only 5 mg PO Q4H PRN (Reason: pain) lisinopril 2.5 mg Tablet 2.5 mg PO QAM Referrals: Eric Huang MD [Primary Care Provider] - Stand Alone Forms: Patient Portal/API/Survey
[2024-04-25] MEDS: diphenhydrAMINE 25 MG TABLET PO (19:29)
== END 2024-04-25 19:42 | disposition home or self-care (01) ==
PROVIDERS: Emergency Provider Emergency Medicine; Family Provider Nurse Practitioner Family; PCP Family Medicine
DX: M54.50 Low back pain, unspecified (principal); Z91.041 Radiographic dye allergy status; Z85.850 Personal history of malignant neoplasm of thyroid; Z87.891 Personal history of nicotine dependence
CPT/HCPCS: 72132; 96374; 96375; 99284; J1200; J2919; Q9967

== ENCOUNTER 2024-05-09 18:29 | Emergency (ER) | payer OTHER, SELFPAY ==
[2024-01-21 17:49] VITALS: BMI 25.8
[2024-05-09] VITALS (12 sets, daily range): BP systolic 112–134; BP diastolic 62–67; PULSE 83–91; RESP 17–54; TEMP 36.7; O2SAT 89–99
--- NOTE | 2024-05-09 18:34 | EKG_ITS ---
[address] [id number] [address] [address] Test Date: 2024-05-09 Pat Name: Jann Diehl Department: Room: Gender: Male Tear Down Man: YULIANA : 1955 Requested By: Order Number: [id number] Reading MD: Henry Lay MD Measurements Intervals [place] Rate: 91 P: 22 MD: 138 QRS: 30 QRSD: 100 T: 25 QT: 392 QTc: 482 Interpretive Statements Normal sinus rhythm Nonspecific ST abnormality Prolonged QT Electronically Signed On 05-09-2024 20:55:41 PST by Henry Lay MD
--- NOTE | 2024-05-09 18:50 | DI.CT.S_ITS ---
PROCEDURE: CT ANGIO CHEST PE PROTOCOL INDICATIONS: chest pain, vomiting, off thinners, known ca, hernia TECHNIQUE: After the administration of intravenous contrast, 2 mm thick sections acquired from the pulmonary apices to the posterior costophrenic angles. 3-dimensional maximum intensity projection (MIP) coronal and sagittal reformats were then acquired through the thorax. For radiation dose reduction, the following was used: automated exposure control, adjustment of mA and/or kV according to patient size. Patient received premedication for prior iodine allergy. COMPARISON: [facility], CT, CT ANGIO CHEST PE PROTOCOL, 01/21/2024, 13:01. FINDINGS: Image quality: Diagnostic. Pulmonary arteries: Pulmonary arteries are normal in size, and demonstrate no intraluminal filling defects to suggest central pulmonary embolism. Lower Neck: No enlarged lymph nodes. Thyroid: Absent. No fluid collection. Axillae: No enlarged lymph nodes. Chest Wall: Unremarkable. Bones: Left 10th rib fracture is unchanged. No suspicious osseous lesion. Lungs and Pleura: No pneumothorax or pleural effusions. No acute airspace opacity. Dependent atelectasis. Right upper lobe pulmonary nodule measuring 0.3 cm, (5/145), unchanged. Trace secretions in the upper trachea. Heart: Heart size is normal. No pericardial effusion. Thoracic Vessels: No aortic aneurysm. Mediastinum and Moon: Right upper paratracheal lymph node measuring 0.8 cm, (4/29), unchanged. Esophagus: No wall thickening. No significant hiatal hernia. Upper Abdomen: Visualized upper abdomen solid organs and bowel loops appear normal. IMPRESSION: 1. No pulmonary embolism. 2. No acute airspace opacity. Dictated by: Robert Guevara M.D. on 05/09/2024 at 21:26 Approved by: Robert Guevara M.D. on 05/09/2024 at 21:33
--- NOTE | 2024-05-09 18:50 | DI.CT.S_ITS ---
PROCEDURE: CT ABDOMEN PELVIS W CON INDICATIONS: chest pain, vomiting, off thinners, known ca, hernia TECHNIQUE: After the administration of intravenous contrast, axial sections acquired from the lung bases to the pubic symphysis. Coronal and sagittal reformats were performed. For radiation dose reduction, the following was used: automated exposure control, adjustment of mA and/or kV according to patient size. Patient received premedication prior to injection for prior iodine allergy. COMPARISON: [facility], CT, CT [facility]BAR SP[facility], 04/25/2024, 18:47. [facility], CT, CT ABDOMEN PELVIS W CON, 03/16/2024, 19:07. FINDINGS: Image quality: Diagnostic. Lower Chest: Coronary artery calcifications. ABDOMEN: Liver: No solid mass. Gallbladder: Absent. Biliary ducts: No biliary dilation. Pancreas: No ductal dilation. Spleen: Size is within normal limits. Adrenal Glands: No adrenal nodules. Kidneys and Ureters: No hydronephrosis. No solid mass. No complex renal cystic lesion which requires follow up. Stomach and Bowel: Diverticulosis. No diverticulitis. Normal appendix. No small bowel obstruction. There is mesenteric edema in the right abdomen, (3/37). There is also mesenteric edema in the left abdomen, (2/93). Peritoneum: No pneumoperitoneum. No significant ascites. Ventral Wall: Left periumbilical hernia containing a small portion of small bowel. The amount of herniated bowel is decreased compared to 03/16/2024. Abdominal Nodes: No retroperitoneal or mesenteric adenopathy by size criteria. Vessels: Aorta and inferior vena cava are normal in size. Retroaortic left renal vein. PELVIS: Pelvic Organs: No free fluid. Bladder: No bladder wall thickening. Pelvic Nodes: No enlarged lymph nodes. Miscellaneous: No inguinal hernias are seen. Bones: No aggressive osseous abnormality. IMPRESSION: 1. Left periumbilical hernia containing a portion of small bowel. The amount of bowel herniated is decreased. 2. There are 2 areas of mesenteric edema, right greater than left. 3. No bowel obstruction demonstrated at this time. No pneumoperitoneum. Normal appendix. Dictated by: Robert Guevara M.D. on 05/09/2024 at 21:34 Approved by: Robert Guevara M.D. on 05/09/2024 at 21:42
--- NOTE | 2024-05-09 18:51 | ED.CHESTPAIN ---
HPI - Chest Pain General Chief Complaint: Chest Pain Stated Complaint: Chest Pain Time Seen by Provider: 05/09/24 18:49 Source: EMS Mode of arrival: EMS Limitations: no limitations Limitations: no limitations History of Present Illness HPI narrative: 69-year-old male with a history of metastatic medullary thyroid cancer, chronic pain presents with complaint of chest pain, shortness of breath as well as nausea and vomiting. Patient states it started having increasing pain about 2 hours ago as well as nausea and vomiting. He has had about 3 days of worsening nausea and vomiting from his normal baseline. He was also had some abdominal pain and discomfort and has a known hernia that is scheduled for repair. Patient denies fevers or chills. Does feel little bit more short of breath. Denies any new swelling in extremities. States normal bowel movements, normal urination. No hemoptysis or hematemesis. Patient states he took 8 mg of Zofran repeated by another 8 mg at home without much improvement did take a nitro sublingual x2 which did help his chest pain somewhat but is still present. Patient notes he was stopped his Pradaxa and Plavix 3 days ago in anticipation of having a port as well as a hernia repair performed. Related Data Home Medications Medication Instructions Recorded Confirmed clopidogrel 75 mg tablet (Plavix) 75 mg PO QAM ##0 04/15/08 05/08/24 acetaminophen 325 mg tablet (Pain 500 mg PO Q4HP PRN Pain, Mild 09/25/17 05/08/24 Relief (acetaminophen)) dabigatran etexilate 150 mg 150 mg PO BID 03/24/18 05/08/24 capsule (Pradaxa) lisinopril 2.5 mg tablet 2.5 mg PO QAM blood pressure 04/28/19 05/08/24 duloxetine 60 mg capsule,delayed 120 mg PO QAM 11/01/21 05/08/24 release (Cymbalta) ondansetron 8 mg disintegrating 8 mg PO PRN PRN nausea/vomiting 02/25/22 05/08/24 tablet morphine 15 mg tablet,extended 30 mg PO .HS 06/06/22 05/08/24 release (MS Contin) amlodipine 5 mg tablet 10 mg PO DAILY 01/19/23 05/08/24 rosuvastatin 10 mg tablet 40 mg PO DAILY 01/19/23 05/08/24 pantoprazole 40 mg tablet,delayed 40 mg PO BID 06/06/23 05/08/24 release ezetimibe 10 mg tablet 10 mg PO DAILY 07/03/23 05/08/24 metoprolol succinate 25 mg 25 mg PO BID 11/29/23 05/08/24 tablet,extended release 24 hr promethazine 25 mg rectal 25 mg HI Q6H PRN vomiting 11/29/23 05/08/24 suppository promethazine 25 mg tablet 25 mg PO Q4-6H PRN diarrhea 11/29/23 05/08/24 albuterol sulfate 90 mcg/actuation 2 puff inhalation QID PRN SOB. 05/08/24 05/08/24 aerosol inhaler calcitriol 0.25 mcg capsule 0.5 mcg PO DAILY 05/08/24 05/08/24 diphenhydramine HCl 25 mg capsule 50 mg PO TID PRN Nausea/vomitting. 05/08/24 05/08/24 (Benadryl) insulin glargine 100 unit/mL (3 15 unit SUBCUT QAM 05/08/24 05/08/24 mL) subcutaneous pen (Lantus Solostar U-100 Insulin) insulin lispro 100 unit/mL See Rx Instructions .Route .COMPLEX 05/08/24 05/08/24 subcutaneous solution (Humalog U-100 Insulin) ipratropium 0.5 mg-albuterol 3 mg 3 ml inhalation QID PRN SOB. 05/08/24 05/08/24 (2.5 mg base)/3 mL nebulization soln levothyroxine 150 mcg tablet 150 mcg PO DAILY 05/08/24 05/08/24 [id number] See Rx Instructions .Route .COMPLEX 05/08/24 05/08/24 24,000-76,000-120,000 unit capsule,delayed rel (Creon) morphine 15 mg tablet,extended 15 mg PO PRN PRN Pain (Scale Score 05/08/24 05/08/24 release 4-6) morphine 60 mg capsule,extended 60 mg PO Q12H 05/08/24 05/08/24 release 24 hr multiphase oxycodone 5 mg tablet 5 mg PO Q4H PRN Break through pain. 05/08/24 05/08/24 tadalafil 20 mg tablet 20 mg PO DAILY PRN Sexual activity. 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 Sulfa (Sulfonamide Allergy Severe Anaphylaxis Verified 05/08/24 15:02 Antibiotics) atorvastatin [From Lipitor] AdvReac Intermediate Cramping Verified 05/08/24 15:02 of the Muscles gabapentin AdvReac Intermediate Dizziness Verified 05/08/24 15:02 metformin AdvReac Mild Excessive Verified 05/08/24 15:02 sweating. niacin AdvReac Flushing Verified 05/08/24 15:02 trazodone AdvReac Verified 05/08/24 15:02 Review of Systems Review of Systems ROS Unobtainable: All systems reviewed & are unremarkable except as noted in HPI and below Patient History Medical History ADHD Hx of agent Wheeler exposure Depression Dysphagia Non-STEMI (non-ST elevated myocardial infarction) (02/2023) Chronic low back pain Coronary artery disease Thyroid nodule Diabetes mellitus Atrial flutter with rapid ventricular response Sepsis Claudication in peripheral vascular disease History of cardioversion (03/07/21) Campylobacter enteritis Exocrine pancreatic insufficiency Acute dehydration Enteritis, enteropathogenic E. coli Paroxysmal atrial fibrillation Psoriasis Narcolepsy GERD (gastroesophageal reflux disease) Hyperlipidemia HTN (hypertension) Insulin dependent diabetes mellitus with complications Peripheral vascular disease Gastroenteritis Pancreatitis Atrial flutter with rapid ventricular response Surgical History Hx of cholecystectomy (2021) H/O neck dissection (01/08/24) S/P ablation of atrial flutter (08/2022) Hx of thyroidectomy (01/08/24) History of epididymectomy (1984) Hx of biopsy History of femoropopliteal bypass (2004) H/O exploratory laparotomy Family History Father Colon cancer Mother Narcolepsy Grandmother Narcolepsy Social History household members: spouse Smoking Status: Former smoker alcohol intake: former Smoking Status: Former smoker alcohol intake frequency: holidays/special occasions only Exam Narrative Exam Narrative: GENERAL: Alert and oriented x three, in mild distress. HEENT: Head normocephalic, atraumatic, EOMI, pupils reactive, face symmetric, moist mucous membranes NECK: Supple, full range of motion CARDIOVASCULAR: Regular rate and rhythm without murmurs, rubs or gallops. No JVD. No edema bilateral lower extremities. RESPIRATORY: Breath sounds equal bilaterally, no wheezes rales or rhonchi. ABDOMEN: Soft, patient has a left lateral abdominal hernia is reducible but is tender, no skin color changes. Hypoactive bowel sounds all 4 quadrants. No guarding or rebound, rigidity, no mass : No CVA tenderness EXTREMITIES: Normal range of motion, no clubbing or edema. Neurovascularly intact NEUROLOGICAL: Cranial nerves II through XII grossly intact. Moving all extremities SKIN: Warm, dry, no petechiae, no rashes or lesions. Initial Vital Signs Initial Vital Signs: Vital Signs Temperature 98.1 F 05/09/24 18:34 Pulse Rate 91 H 05/09/24 18:34 Respiratory Rate 20 05/09/24 18:34 Blood Pressure 112/64 05/09/24 18:34 Pulse Oximetry 99 05/09/24 18:34 Oxygen Delivery Method Room Air 05/09/24 18:34 Course Orders Ordered: ED Orders 05/09/24 23:15 Trop I [Troponin I] Stat Discontinued Medications Aspirin (Aspirin 81 Mg Chew Tab) 324 mg PO NOW ONE Stop: 05/09/24 18:35 Diphenhydramine HCl (Diphenhydramine 50 Mg/Ml Vial) 50 mg IV NOW ONE Stop: 05/09/24 19:10 Last Admin: 05/09/24 19:36 Dose: 50 mg Documented By: TIM Hydromorphone HCl (Hydromorphone 1 Mg Inj) 1 mg IV NOW ONE Stop: 05/09/24 18:51 Last Admin: 05/09/24 19:09 Dose: 1 mg Documented By: POLLY Hydromorphone HCl (Hydromorphone 1 Mg Inj) 1 mg IV NOW ONE Stop: 05/09/24 19:12 Last Admin: 05/09/24 19:18 Dose: 1 mg Documented By: POLLY Hydromorphone HCl (Hydromorphone 2 Mg Inj) 2 mg IV NOW ONE Stop: 05/10/24 00:23 Last Admin: 05/10/24 00:32 Dose: 2 mg Documented By: Lorazepam (Lorazepam 2 Mg/Ml Inj) 1 mg IV NOW ONE Stop: 05/09/24 20:22 Last Admin: 05/09/24 20:28 Dose: 1 mg Documented By: Methylprednisolone (Methylprednisolone 125 Mg/2 Ml Vial) 125 mg IV NOW ONE Stop: 05/09/24 19:10 Last Admin: 05/09/24 19:36 Dose: 125 mg Documented By: TIM Metoclopramide HCl (Metoclopramide 10 Mg/2 Ml Inj) 10 mg IV NOW ONE Stop: 05/09/24 18:51 Last Admin: 05/09/24 19:09 Dose: 10 mg Documented By: POLLY Morphine Sulfate (Morphine Er 15 Mg Tablet) 45 mg PO NOW ONE Stop: 05/10/24 00:23 Last Admin: 05/10/24 01:00 Dose: 45 mg Documented By: Vital Signs Vital signs: Vital Signs - 8 hr 05/09/24 22:00 05/09/24 22:30 05/09/24 23:00 Pulse Rate 88 86 83 Respiratory Rate 36 H 20 19 Blood Pressure Pulse Oximetry 96 96 96 05/10/24 02:13 05/10/24 03:00 05/10/24 03:00 Pulse Rate 85 87 Respiratory Rate 14 19 Blood Pressure 124/67 115/65 Pulse Oximetry 97 94 MDM - Chest Pain Lab Data 05/09/24 19:05 05/09/24 19:05 Labs: Lab Results 05/09/24 05/09/24 Range/Units 19:05 23:15 WBC 12.6 H (4.5-11.0) X10^3/uL RBC 4.46 L (4.5-5.9) X10^6/uL Hgb 10.8 L (13.5-17.5) g/dL Hct 33.6 L (41-53) % MCV 75.5 L (80-100) fL MCH 24.1 L (26-34) PG MCHC 32.0 (30-36) % RDW 16.3 H (11.6-14.8) % Plt Count 303 (150-400) X10^3/uL Neut % (Auto) 80.2 H (50-75) % Lymph % (Auto) 8.9 L (25-40) % [place] % (Auto) 7.1 (3-14) % Eos % (Auto) 3.3 (2-4) % Baso % (Auto) 0.5 (0-2) % Neut # (Auto) 98470 H (6556-2862) /uL Lymph # (Auto) 1100 (7113-2778) /uL [place] # (Auto) 900 (0-900) /uL Eos # (Auto) 400 (0-450) /uL Baso # (Auto) 100 (0-100) /uL PT 12.6 H (9.4-12.5) SECONDS INR 1.1 (0.9-1.3) APTT 39 H (25.1-36.5) SECONDS Sodium 133 L (137-145) mmol/L Potassium 4.3 (3.4-5.1) mmol/L Chloride 99 (98-107) mmol/L Carbon Dioxide 24 (22-32) mmol/L BUN 16 (9-20) mg/dL Creatinine 0.78 (0.66-1.25) mg/dL Estimated GFR > 60 (>60) mL/min BUN/Creatinine Ratio 20.5 (6-22) Glucose 271 H (80-110) mg/dL Calcium 7.7 L (8.4-10.2) mg/dL Magnesium 1.4 L (1.6-2.3) mg/dL Total Bilirubin 0.3 (0.2-1.3) mg/dL AST 30 (17-59) IU/L ALT 32 (<50) IU/L Alkaline Phosphatase 85 (38-126) U/L Total Creatine Kinase 200 H (55-170) U/L Troponin I < 0.012 < 0.012 (0.01-0.034) ng/mL NT-Pro-B Natriuret Pep 109 (<125) pg/mL Total Protein 6.4 (6.3-8.2) g/dL Albumin 4.1 (3.5-5.0) g/dL Globulin 2.3 (1.7-4.1) g/dL Albumin/Globulin Ratio 1.8 (1.0-2.8) Lipase 45 (23-300) U/L ECG Data Attestation: I personally reviewed and interpreted this ECG as follows: Prior ECG tracings: available for review Interpretation: Sinus rhythm nonspecific change, rate of 91 HI 138 QRS of 100 QTC of 482, no acute ST changes. Patient has prior for 03/16/24 with no acute change. MDM Narrative Medical decision making narrative: 69-year-old male known with metastatic medullary cancer has had significant resection in the past patient presents with complaint of chest pain abdominal pain has had nausea vomiting that has been persistent throughout the day and missed several doses of pain medication as well. Labs white count of 12.6 hemoglobin of 10.8 microcytic, platelets of 303, INR is 1.1, sodium is 133 electrolytes are appropriate creatinine 0.78 glucose of 271 calcium 7.7 Mag is 1.4, troponins less than 0.012 with a BNP of 109 Sinus rhythm nonspecific change rate of 91 no acute changes from 03/16/2024. Repeat troponin is less than 0.012 CT angio shows no pulmonary embolism no acute airspace opacity. CT chest abdomen pelvis shows left periumbilical hernia containing a portion of small bowel mount of bowel hernia does decreased they are 2 areas mesenteric edema right greater than left, no bowel obstruction demonstrated no pneumoperitoneum normal appendix. Patient given Dilaudid and reglan. Pain is improved but is still very nauseated was given a dose of Ativan. Patient was able to get a little bit asleep. Patient had vomited most of his pain meds up today we will try a dose of his normal 45 mg extended release oral morphine along with the additional dose of IV pain medication see if we can manage his pain little bit better. If not we will discuss with hospitalist. Rechecked 0322. Patient has been able to tolerate several cups of water and boost. He feels his pain is improved feels that he can return home slightly little bit dehydrated but states he was able to orally hydrate felt appropriate for discharge home with a appropriate vitals and labs reviewed his findings he was already aware of the mesenteric edema reported on his CT he was scheduled for a port as well as hernia repair this week and would very much like discharge home. Discussed return precautions can come back at any time particularly if he was not able to keep anything down. He states he has Zofran and promethazine orally as well as suppository at home. Discharge Plan Departure Patient Disposition: Home Clinical Impression: Chest pain, Vomiting Activity Restrictions/Additional Instructions: I hope you continue to feel improved on that your upcoming surgeries go well. Continue your home medications as prescribed. Please return if you have any new fevers, new or worsening chest or abdominal or back pain, vomiting, black or bloody stools, difficulty with breathing or any other new or concerning changes. Prescriptions: No Action clopidogrel [Plavix] 75 mg Tablet 75 mg PO QAM Qty: 0 promethazine 25 mg tablet 25 mg PO Q4-6H PRN (Reason: diarrhea) promethazine 25 mg suppository 25 mg HI Q6H PRN (Reason: vomiting) metoprolol succinate 25 mg tablet extended release 24 hr 25 mg PO BID morphine [MS Contin] 15 mg tablet extended release 30 mg PO .HS rosuvastatin 10 mg tablet 40 mg PO DAILY amlodipine 5 mg tablet 10 mg PO DAILY duloxetine [Cymbalta] 60 mg capsule,delayed release(DR/EC) 120 mg PO QAM ezetimibe 10 mg tablet 10 mg PO DAILY nitroglycerin 0.3 mg tablet, sublingual See Rx Instructions .ROUTE .COMPLEX Qty: 100 0RF Dose Instruction: PLACE 1 TABLET (0.3 MG TOTAL) UNDER THE TONGUE EVERY 5 (FIVE) MINUTES NEEDED FOR CHEST PAIN FOR UP TO 7 DAYS MAY REPEAT EVERY 5 MINUTES UP TO [address] DOS[address] Rx [address]ructions: [address] 1 TABLET (0.3 MG TOTAL) UNDER THE TONGUE EVERY 5 (FIVE) MINUTES NEEDED FOR CHEST PAIN FOR UP TO 7 DAYS MAY REPEAT EVERY 5 MINUTES UP TO 3 DOSES. acetaminophen [Pain Relief (acetaminophen)] 325 MG tablet 500 mg PO Q4HP PRN (Reason: Pain, Mild) dabigatran etexilate [Pradaxa] 150 mg Capsule 150 mg PO BID ondansetron 8 mg tablet,disintegrating 8 mg PO PRN PRN (Reason: nausea/vomiting) pantoprazole 40 mg Tablet,Delayed Release (Dr/Ec) 40 mg PO BID metoclopramide HCl [Reglan] 10 mg tablet 10 mg PO Q6H PRN (Reason: nausea and vomiting) Qty: 20 0RF lisinopril 2.5 mg Tablet 2.5 mg PO QAM insulin lispro [Humalog U-100 Insulin] 100 unit/mL solution See Rx Instructions .ROUTE .COMPLEX Patient Comments: [NO ORIGINAL SIG] Rx Instructions: Sliding scale with meals. ipratropium-albuterol [DuoNeb] 0.5 mg-3 mg(2.5 mg base)/3 mL Solution For Nebulization 3 ml INHALATION QID PRN (Reason: SOB.) diphenhydramine HCl [Benadryl] 25 mg Capsule 50 mg PO TID PRN (Reason: Nausea/vomitting.) albuterol sulfate 90 mcg/actuation Hfa Aerosol Inhaler 2 puff INHALATION QID PRN (Reason: SOB.) oxycodone 5 mg Tablet 5 mg PO Q4H PRN (Reason: Break through pain.) insulin glargine [Lantus Solostar U-100 Insulin] 100 unit/mL (3 mL) Insulin Pen 15 unit SUBCUT QAM morphine 15 mg tablet extended release 15 mg PO PRN PRN (Reason: Pain (Scale Score 4-6)) levothyroxine 150 mcg Tablet 150 mcg PO DAILY calcitriol 0.25 mcg Capsule 0.5 mcg PO DAILY morphine 60 mg Capsule, Er Multiphase 24 Hr 60 mg PO Q12H Creon 24,000-76,000 -120,000 unit capsule,delayed release(DR/EC) See Rx Instructions .ROUTE .COMPLEX Rx Instructions: administer with meals and/or snacks prn sliding scale. 1 capsule for every 600 calories tadalafil 20 mg Tablet 20 mg PO DAILY PRN (Reason: Sexual activity.) Rx Instructions: Administer approximately 30min before sexual activity; do not use more than 1 dose per 24hrs Referrals: Eric Huang MD [Primary Care Provider] - Stand Alone Forms: Patient Portal/API/Survey
[2024-05-09] MEDS: METOCLOPRAMIDE 10 MG/2 ML INJ IV (19:09)
[2024-05-09] MEDS: HYDROMORPHONE 1 MG INJ IV ×2 (19:09→19:18)
[2024-05-09 19:30] LABS: Add Manual Diff / Slide Review NO; Basophils Absolute Auto 100 /uL (0-100); Basophils Percent Auto 0.5 % (0-2); Eosinophils Absolute Auto 400 /uL (0-450); Eosinophils Percent Auto 3.3 % (2-4); Hematocrit 33.6 % (41-53); Hemoglobin 10.8 g/dL (13.5-17.5); Lymphocytes Absolute Auto 1100 /uL (1100-4500); Lymphocytes Percent Auto 8.9 % (25-40); Mean Corpuscular Hemoglobin 24.1 PG (26-34); Mean Corpuscular Volume 75.5 fL (80-100); Monocytes Absolute Auto 900 /uL (0-900); Monocytes Percent Auto 7.1 % (3-14); Neutrophils Absolute Auto 10100 /uL (1500-7000); Neutrophils Percent Auto 80.2 % (50-75); Platelet Count 303 X10^3/uL (150-400); Red Blood Cell Count 4.46 X10^6/uL (4.5-5.9); Red Cell Distribution Width 16.3 % (11.6-14.8); White Blood Cell Count 12.6 X10^3/uL (4.5-11.0)
[2024-05-09 19:35] LABS: Alanine Aminotransferase 32 IU/L (<50); Albumin 4.1 g/dL (3.5-5.0); Albumin Globulin Ratio 1.8 (1.0-2.8); Alkaline Phosphatase 85 U/L (38-126); Aspartate Aminotransferase 30 IU/L (17-59); BUN Creatinine Ratio 20.5 (6-22); Bilirubin Total 0.3 mg/dL (0.2-1.3); Blood Urea Nitrogen 16 mg/dL (9-20); Calcium 7.7 mg/dL (8.4-10.2); Carbon Dioxide 24 mmol/L (22-32); Chloride 99 mmol/L (98-107); Creatine Kinase 200 U/L (55-170); Estimated Glomerular Filt Rate > 60 mL/min (>60); Globulin 2.3 g/dL (1.7-4.1); Glucose 271 mg/dL (80-110); HEMOLYSIS < 15 (0-50); Lipase 45 U/L (23-300); Magnesium 1.4 mg/dL (1.6-2.3); Potassium 4.3 mmol/L (3.4-5.1); Sodium 133 mmol/L (137-145); Total Protein 6.4 g/dL (6.3-8.2)
[2024-05-09] MEDS: diphenhydrAMINE 50 MG/ML VIAL IV (19:36)
[2024-05-09] MEDS: methylPREDNISolone 125 MG/2 ML VIAL IV (19:36)
[2024-05-09 19:46] LABS: NT-proBNP (BNP-Adult 18+) 109 pg/mL (<125); Troponin I < 0.012 ng/mL (0.01-0.034)
[2024-05-09 20:18] LABS: INR 1.1 (0.9-1.3); Prothrombin Time 12.6 SECONDS (9.4-12.5)
[2024-05-09 20:20] LABS: PTT Partial Thromboplastin Tim 39 SECONDS (25.1-36.5)
[2024-05-09] MEDS: LORazepam 2 MG/ML INJ 1 MG IV (20:28)
--- NOTE | 2024-05-09 23:22 | PC.NURSE ---
Patient is sleeping comfortably with at bedside
[2024-05-09 23:52] LABS: Troponin I < 0.012 ng/mL (0.01-0.034)
[2024-05-10] MEDS: HYDROMORPHONE 2 MG INJ IV (00:32)
[2024-05-10] MEDS: MORPHINE ER 15 MG TABLET 45 MG PO (01:00)
[2024-05-10 02:13] VITALS: BP 124/67; PULSE 85; RESP 14; O2SAT 97
--- NOTE | 2024-05-10 02:14 | PC.NURSE ---
Patient and asleep in the room
[2024-05-10 03:00] VITALS: BP 115/65; PULSE 87; RESP 19; O2SAT 94
== END 2024-05-10 03:39 | disposition home or self-care (01) ==
PROVIDERS: Emergency Provider Emergency Medicine; Family Provider Nurse Practitioner Family; PCP Family Medicine
DX: R07.9 Chest pain, unspecified (principal); R06.02 Shortness of breath; R11.2 Nausea with vomiting, unspecified; R10.9 Unspecified abdominal pain; Z79.01 Long term (current) use of anticoagulants; Z85.850 Personal history of malignant neoplasm of thyroid; E11.9 Type 2 diabetes mellitus without complications; Z79.4 Long term (current) use of insulin; I10 Essential (primary) hypertension; Z87.891 Personal history of nicotine dependence
CPT/HCPCS: 36415; 71275; 74177; 80053; 82550; 83690; 83735; 83880; 84484; 85025; 85610; 85730; 93005; 93010; 96374; 96375; 96376; 99284; 99285; J1171; J1200; J2060; J2765; J2919; Q9967

== ENCOUNTER → 2024-05-14 13:31 | Outpatient (CLI) | payer OTHER, SELFPAY ==
[2024-01-21 17:49] VITALS: BMI 25.8
[2024-05-14 14:44] LABS: Hemoglobin A1C% w Est Avg Glu 10.8 % (4.0-6.0)
== END ==
PROVIDERS: Family Provider Nurse Practitioner Family; PCP Family Medicine; Referring Provider Surgery; Visit Provider Surgery
DX: K43.2 Incisional hernia without obstruction or gangrene (principal)
CPT/HCPCS: 36415; 83036

== ENCOUNTER 2024-05-16 06:18 | Day surgery (SDC) | payer OTHER, SELFPAY ==
[2024-01-21 17:49] VITALS: BMI 25.8
[2024-05-07 09:07] VITALS: BMI 26.5
[2024-05-16] VITALS (25 sets, daily range): BP systolic 99–123; BP diastolic 50–81; PULSE 78–91; RESP 12–18; TEMP 35.9–36.3; O2SAT 92–100; BMI 26.4
--- NOTE | 2024-05-16 | DI.RAD.S_ITS ---
PROCEDURE: XR CHEST 1V INDICATIONS: intra-operative port placement TECHNIQUE: One view of the chest was acquired. COMPARISON: [facility], , XR CHEST FOR PICC 1V, 01/21/2024, 18:10. FINDINGS: Surgical changes and devices: Right-sided port terminates in the expected location of the cavoatrial junction. Surgical clips are noted within the neck bilaterally. An endotracheal tube terminates approximately 2 cm above the level of the jace. Lungs and pleura: Lungs are clear. No pleural effusions or pneumothorax. Mediastinum: Visualized mediastinal contours appear normal. Bones and chest wall: No suspicious bony lesions. Overlying soft tissues appear unremarkable. IMPRESSION: Appropriate placement of right Port-A-Cath. Dictated by: Christiano Cottrell M.D. on 05/17/2024 at 7:33 Approved by: Christiano Cottrell M.D. on 05/17/2024 at 7:41
--- NOTE | 2024-05-16 | DI.RAD.S_ITS ---
PROCEDURE: XR CHEST 1V INDICATIONS: post op port placement TECHNIQUE: One view of the chest was acquired. COMPARISON: [facility], [place], XR CHEST 1V, 05/16/2024, 8:51. [facility], CR, XR CHEST FOR PICC 1V, 01/21/2024, 18:10. FINDINGS: Surgical changes and devices: Surgical clips over the neck. Right chest wall port tip projects over the low SVC. Lungs and pleura: Lungs are clear. No pleural effusions or pneumothorax. Mediastinum: Mediastinal contours appear normal. Heart size is normal. Bones and chest wall: No suspicious bony lesions. Overlying soft tissues appear unremarkable. IMPRESSION: Right chest wall port tip projects over the low SVC. No pneumothorax. Dictated by: Imtiaz Hammer M.D. on 05/16/2024 at 11:18 Approved by: Imtiaz Hammer M.D. on 05/16/2024 at 11:19
[2024-05-16] MEDS: LACTATED RINGERS 1,000 ML 42 ML IV (07:04)
[2024-05-16] MEDS: ONDANSETRON 4 MG/2 ML INJ IV (07:05)
[2024-05-16] MEDS: MIDAZOLAM 2 MG/2 ML VIAL IV (07:48)
--- NOTE | 2024-05-16 07:51 | PM.PREOP ---
Pre-operative Note COVID-19 COVID-19 status: Not tested Interval Note History & Physical reviewed/Exam performed by Physician: Yes Changes to H&P: No ASA Class (for procedural sedation): IV
[2024-05-16] MEDS: CEFAZOLIN 2 GM/100 ML PREMIX 100 ML IV (07:56)
[2024-05-16] MEDS: ACETAMINOPHEN IV 1,000 MG/100 ML VIAL 400 MG IV (08:05)
--- NOTE | 2024-05-16 08:23 | SUR.OPER ---
Supine on padded OR bed, head on gel donut, arms padded and tucked at sides, legs uncrossed, safety belt at thigh.
[2024-05-16] MEDS: LIDOCAINE 1% W/EPI 20ML 20 ML INJ (08:41)
[2024-05-16] MEDS: SODIUM CHLORIDE 0.9% FLUSH 10 ML IV ×2 (08:43→22:45)
[2024-05-16] MEDS: BUPIVACAINE 0.5% W/ EPI (PF) 30 ML VIAL INJ (09:00)
--- NOTE | 2024-05-16 09:16 | SUR.OPER ---
Supine on padded OR bed, head on DONUT pillow, arms padded and tucked at sides, legs uncrossed, safety belt at thigh, tape over blanket over lower legs .
--- NOTE | 2024-05-16 10:15 | PM.OP.1 ---
Operative Date/Time/Diagnoses Date of procedure: 05/16/24 Time of procedure: 10:15 Pre-op diagnosis: Metastatic medullary thyroid cancer Ventral incisional hernia Post-op diagnosis: same Procedure & Clinicians Procedure: Port-A-cath Open ventral incisional hernia repair with mesh Same procedure as scheduled: Yes Surgeon: Ronaldo Velasco Anesthesia Type: General Operative Notes Procedure in detail: The patient was brought to the operating room, placed on the table in the supine position with the arms tucked. Ancef was administered. Anesthesia was induced via LMA. A time-out was performed. The right chest and neck were prepped and draped in the usual fashion. An ultrasound was used to identify the right internal jugular vein. The vein was noted to be patent. A metallic object, most likely a surgical clip, was visible lateral to the vein. The right internal jugular vein was accessed via the Seldinger technique under ultrasound guidance. The guidewire was inserted into the superior vena cava. C-arm was used to confirm proper position of the guidewire in the superior vena cava and no ectopy was noted. The needle was removed and the wire was clamped to the drape. Next, a port pocket was created just inferior to the medial clavicle using a 15 blade scalpel. Dissection was carried down to the pectoral fascia. A subcutaneous pocket was created using a combination of cautery and blunt dissection. Next, the port which was primed with injectable saline, was secured to the fascia with 3-0 PDS sutures left untied and clamped. The neck incision was extended with an 11 blade scalpel to approximately 5 mm. The dilator and peel-away sheath were inserted over the wire without resistance. The catheter was passed from the neck incision to the chest incision in the subcutaneous tissue using the tunnelling device. The wire and dilator were then removed and the catheter inserted through the peel-away sheath to deliver it into the superior vena cava. The depth of the device was checked using the C-arm and the tip of the device was noted to be in the distal superior vena cava. The exterior portion of the catheter was then trimmed and attached to the port using the strain relief collar. A final image showed good position of the catheter with no kinks. The port was then tucked into the subcutaneous pocket and the sutures were tied to secure the device. The port was then accessed using the Luna needle and it was noted that the device wero and flushed easily without resistance. Approximately 4 mL of heparinized saline were injected into the device. The skin incisions were closed with 3-0 Vicryl and 4-0 Monocryl. Steri-Strips were applied patient was awakened and brought to recovery room. Ultrasound: The right internal jugular vein was patent. The right carotid artery was visualized adjacent to the vein. Venipuncture was visualized in real-time using the ultrasound. Fluoroscopy: The device was positioned appropriately with the distal end of the catheter near the atriocaval junction. There were no kinks in the catheter. Next we re-prepped and draped for the hernia repair. The abdomen was prepped and draped in the usual fashion. A time-out was performed. A 7 cm incision was made superior to the umbilicus. Dissection was carried down to the hernia sac. The hernia sac was freed from the fascial ring and the peritoneal cavity was entered. There was no bowel or omentum adherent to the sac. The facial defect was roughly 5 cm in diameter. The fascia was then closed with multiple interrupted 0 Ethibond sutures. The subcutaneous adipose tissue was cleared off of the anterior sheath circumferentially about 2 cm in each direction. A piece of polypropylene mesh measuring roughly 5 cm x 7 cm was trimmed to fit over the fascial closure and secured with Tisseel. Once the Tisseel was dried the subcutaneous adipose tissue was closed with interrupted 3-0 Vicryl sutures. The skin was closed with multiple interrupted 3-0 Vicryl dermal sutures followed by a running 4 Monocryl subcuticular closure. Steri-Strips were applied and an abdominal binder was applied. Post-operative Condition: stable Disposition: PACU
[2024-05-16] MEDS: fentaNYL 100 MCG/2 ML INJ 50 MCG IV ×2 (10:50→11:00)
[2024-05-16] MEDS: OXYCODONE IR 5 MG TABLET PO ×2 (10:51→11:18)
[2024-05-16] MEDS: INSULIN LISPRO 100 UNIT/ML 3ML VIAL SUBCUT ×3 (11:15→21:22)
--- NOTE | 2024-05-16 11:30 | SUR.PHASEI ---
did not give humlin insulin due to order change and large shortage of Humulin per pharmacy. Dr. Thacker ordered lispro 5 units sub q.
--- NOTE | 2024-05-16 11:49 | SUR.PHASEI ---
Patient placed on bed to be admitted.
--- NOTE | 2024-05-16 11:52 | SUR.PHASEI ---
pt awaiting bed and it will be an additional 25 minutes for pt to go upstairs.
--- NOTE | 2024-05-16 11:56 | SUR.PHASEI ---
Dr. Thacker informed of pt's blood sugar and does not want to give any further insulin.
[2024-05-16] MEDS: MORPHINE ER 15 MG TABLET PO (13:10)
[2024-05-16] MEDS: ACETAMINOPHEN 325 MG TABLET 650 MG PO (13:11)
[2024-05-16] MEDS: METOCLOPRAMIDE HCL 5 MG TABLET 10 MG PO ×2 (13:11→19:34)
--- NOTE | 2024-05-16 16:36 | CM.DANOTE ---
Initial DCP Assessment Note Pt is a 69 yo male, resident of [facility]. Patient s/p hernia repair with mesh and port placement. Patient diagnosed with thyroid cancer in the fall of 2023. Received call from Jose, OR/PACU. Jose requested that SW see patient and sp LAURA as both patient/sp sounded overwhelmed with patient's recent increase in pain and increased care needs at home. Patient familiar to this [employer] and many staff members in this hospital. 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 PCP: Eric Huang Payer: [facility]/ [email or web address] Met w/patient, his Yisel and brother at bedside. Discussed Jose's call and patient aware. Patient has not been able to tolerate food for at least a week, throws everything up. in addition, pain has increased. Patient requires assist with most ADLs. Patient and family are ready for hospice and would like a referral to [facility] today. Alfredo requests an info visit as soon as it is available for he and is and brother. Referral faxed, spoke with Sarah at [facility] Requested info visit and RN SOC as soon as possible for patient and his family. Sarah planned to complete an info visit by phone. Regarding the RN SOC- RN slot is not available until Saturday 05/20. This can be changed if a slot becomes available. This CM team will plan to follow patient and discharge coordination closely. Patient and family may choose to discharge home with hospice to follow up (?) or remain admitted for symptom management. Plan: Discharge home w/supportive family, via family to transport. [facility] to follow. RIMA Neville Discharge Planning/Care Management CM Discharge Assessment Start: 05/16/24 16:34 Freq: Status: Active Protocol: Document 05/16/24 16:34 SHERI (Rec: 05/16/24 16:36 SHERI [id number]) Discharge Planning Assessment Assigned Journeyman Mechanic RIMA Kruse DPOA/Assigned Designee Name geovanny Augustine Contact Information [phone] Advance Directives? Yes: Yes- Advance Directive Advance Directives on File Yes History Provided By Patient,Family Member,Medical Record Prior Living Arrangements House Household Members spouse Type of transporation used prior to Relies on Others admit Independent with ADL's No Is patient alert and oriented? Yes: Some mild confusion noted Needs Assistance With Bathing,Grooming,Meal Prep, Toileting,Managing Medications ,Home Chores / Shopping Comment It has been a difficult week or two DME Already Rented / Owned Wheelchair,FWW / Walker,Cane Barriers to Discharge No Comment Anticipate discharge home with supportive family and hospice Discharge Plan Hospice Transportation Arrangement or supportive family friend will provide transport. Referrals Initiated Other Additional Comment Referral to [facility] made 05/16
[2024-05-16] MEDS: LIPASE/PROTEASE/AMYLASE 5/17/24 CAP 5 CAP PO (17:03)
[2024-05-16] MEDS: OXYCODONE IR 10 MG TABLET PO ×2 (19:28→23:03)
[2024-05-16] MEDS: METOPROLOL ER 25 MG TABLET PO (21:15)
[2024-05-16] MEDS: PANTOPRAZOLE DR 40 MG TABLET PO (21:15)
[2024-05-16] MEDS: ATORVASTATIN 20 MG TABLET 80 MG PO (21:21)
[2024-05-16] MEDS: MORPHINE ER 15 MG TABLET 60 MG PO (21:21)
[2024-05-17] MEDS: OXYCODONE IR 10 MG TABLET PO (04:08)
[2024-05-17] MEDS: LEVOTHYROXINE 75 MCG TABLET 150 MCG PO (06:28)
[2024-05-17] MEDS: MORPHINE ER 15 MG TABLET PO (06:52)
[2024-05-17 08:00] VITALS: BP 111/47; PULSE 80; RESP 12; TEMP 36.1; O2SAT 96
[2024-05-17] MEDS: INSULIN LISPRO 100 UNIT/ML 3ML VIAL SUBCUT (08:41)
[2024-05-17] MEDS: DULOXETINE 30 MG CAPSULE 120 MG PO (08:41)
[2024-05-17] MEDS: lisinopriL 5 MG TABLET 2.5 MG PO (08:42)
[2024-05-17] MEDS: PANTOPRAZOLE DR 40 MG TABLET PO (08:42)
[2024-05-17] MEDS: MORPHINE ER 15 MG TABLET 60 MG PO (08:42)
[2024-05-17] MEDS: METOPROLOL ER 25 MG TABLET PO (08:42)
[2024-05-17] MEDS: AMLODIPINE 5 MG TABLET 10 MG PO (08:42)
[2024-05-17] MEDS: LIPASE/PROTEASE/AMYLASE 5/17/24 CAP 5 CAP PO (08:43)
[2024-05-17] MEDS: SODIUM CHLORIDE 0.9% FLUSH 10 ML IV (08:48)
[2024-05-17] MEDS: calcitrioL 0.25 MCG CAPSULE 0.5 MCG PO (08:48)
[2024-05-17] MEDS: EZETIMIBE 10 MG TABLET PO (08:48)
[2024-05-17] MEDS: INSULIN GLARGINE 100 UNIT/ML 3ML PEN 15 UNIT SUBCUT (08:56)
--- NOTE | 2024-05-17 12:53 | CM.DPC ---
DCP Discharge Home Per Surgeon, pt tolerated procedure well and medically stable to d/c home with family support and outpt f/u, no identified barriers to discharge. Per RN and family anxious to get home and requesting to go right away this morning and discharge instructions provided and family transported pt home this morning. SW called [facility] and confirmed they have pt's referral and attempted to call spouse yesterday for Info Visit but spouse did not answer and they left a msg and they will try again today. No discharge summary yet to send to [facility] to review. RIMA Ramos
== END 2024-05-17 09:45 | disposition home or self-care (01) ==
LOC: OR 06:19 → AC 11:04
PROVIDERS: Family Provider Nurse Practitioner Family; PCP Family Medicine; Referring Provider Surgery; Visit Provider Surgery
PROC: (CPT 49593; principal; 2024-05-16 07:45)
PROC: (CPT 49593; 2024-05-16 07:45)
DX: K43.2 Incisional hernia without obstruction or gangrene (principal); C73 Malignant neoplasm of thyroid gland; Z87.891 Personal history of nicotine dependence; I25.2 Old myocardial infarction; Z95.818 Presence of other cardiac implants and grafts; Z79.01 Long term (current) use of anticoagulants
CPT/HCPCS: 49593; 36561; 71045; 76000; 82962; A9270; C1781; C1788; C9250; J0134; J0330; J0690; J1644; J2250; J2405; J2704; J3010